=== PATIENT | male | born 1950 | race Caucasian/White ===

== ENCOUNTER 2022-02-17 12:11 | Outpatient (CLI) | payer MEDICARE, SELFPAY ==
--- OUTSIDE RECORDS SUMMARY | 2022-02-17 12:14 | XMS_ITS | Encounter Summary ---
:1950 Author Organization [facility] Address [address] [place] [address] Care Team Providers Name Role Phone Caryn Hayward P.A.-C. 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 Never 11/22/2018 How many drinks containing alcohol do you have on a typical Not asked day when you are drinking? How often do you have six or more drinks on one occasion? No t asked Sex Assigned at Date Recorded Male 12/24/2017 1:55 PM CDT documented as of this encounter Medications at Time of Discharge Medication Sig Dispensed Refills Start Date End Date aspirin [address] tablet Take 1 tablet (81 mg 0 total) by mouth daily. BD Veo Insulin Syringe USE 1 SYRINGE DAILY 100 each 3 03/14 UF 0.3 mL 31 gauge x 15/64 syringe blood sugar diagnostic 3 test daily. 300 strip 11 10/25/2018 (glucose blood) strips Whatever is covered by insurance. Dx:E11.9 blood-glucose meter [facility] Dispense glucose 1 each 0 10/25 meter, test strips, lancing device, and lancets covered by the patient insurance. Test 3 times per day. Dx: E11.40, E11.65 CONTOUR TEST STRIPS USE ONE STRIP TO 100 strip 4 11/13/2017 strips CHECK GLUCOSE ONCE DAILY BEFORE BREAKFAST dulaglutide (Trulicity) Inject 0.5 mL (1.5 7 mL 3 11/2020 1.5 mg/0.5 mL pen mg total) under the injector injection skin every 7 (seven) days. dulaglutide (Trulicity) Inject 0.5 mL (1.5 2 mL 11 07/2020 1.5 mg/0.5 mL pen mg total) under the injector injection skin every 7 (seven) days. ibuprofen (ADVIL,MOTRIN) Take 400 mg by mouth 0 0 11/25/2018 200 mg tablet as needed. insulin glargine (Lantus Inject 23 Units 20 mL 3 2020 U-100 Insulin) 100 under the skin every unit/mL injection evening. lancets Check sugar 3 times 300 each 3 10/25/2018 daily before meals lisinopriL Take 1 tablet (2.5 90 tablet 3 01/14/2021 (PRINIVIL,ZESTRIL) 2.5 mg total) by mouth mg tablet every morning. LORazepam (ATIVAN) 1 mg Take 1 tablet (1 mg 60 tablet 0 11/2020 tablet total) by mouth 2 (two) times a day as needed for anxiety. metoprolol tartrate Take 1 tablet (25 mg 180 tablet 3 2020 (LOPRESSOR) 25 mg tablet total) by mouth 2 (two) times a day. nitroglycerin Place 1 tablet (0.4 25 tablet 0 10/10/2020 (NITROSTAT) 0.4 mg SL mg total) under the tablet tongue every 5 (five) minutes as needed for chest pain. polyethylene glycol Take 17 g by mouth 0 08/29/19 17 (for_MIRALAX) 17 gram daily. powder packet PSYLLIUM HUSK (METAMUCIL Take 1.7 g by mouth 0 ORAL) at bedtime. tamsulosin (FLOMAX) 0.4 Take 1 capsule (0.4 90 capsule 3 07/2020 mg 24 hr mg total) by mouth capsuleIndications: daily. Overactive Bladder atorvastatin (LIPITOR) Take 1 tablet (20 mg 90 tablet 3 07/202002/13/2022 20 mg tablet total) by mouth at bedtime. oxybutynin (DITROPAN-XL) Take 1 tablet (10 mg 90 tablet 3 1 02/10/2022 10 mg 24 hr tablet total) by mouth at bedtime. venlafaxine XR TAKE 1 CAPSULE(150 90 capsule 3 12/26/2020 (EFFEXOR-XR) 150 mg 24 MG) BY MOUTH DAILY hr capsuleIndications: Anxiety documented as of this encounter Plan of Treatment Upcoming Encounters Date Type Specialty Care Team Description 04/23/2022 Office Visit Cardiovascular Disease Blas Peck M.D. [address] [place] [phone] (Wo rk) documented as of this encounter Procedures Procedure Name Priority Date/Time Associated Diagnosis Comme nts HEMOGLOBIN A1C, B Routine 07/15/2021 1:01 PM Diabetes Mellitus Type Results for this CDT 2 With Diabetic procedure ar e in Neuropathy the results Hyperglycemic (HCC) section. CALCIUM, TOT, S/P Routine 07/15/2021 1:01 PM Hypercalcemia Res ults for this CDT procedure are i n the results section. documented in this encounter Results (ABNORMAL) Hemoglobin A1c (07/15/2021 1:01 PM CDT) P athologist Signature Hemoglobin A1c, 7.4 (H) 4.2 - 5.6 07/15/2021 OWAT B % 4:05 PM CDT Comment: Hemoglobin A1c values greater than or eq ual to 6.5 percent are diagnostic for diabetes mellitus. ?? Diagnosis should be confirmed by repeat testing. ??In diabet ic patients, HbA1c goals should be discussed with healthcar e provider. Specimen Anatomical Collection Method Collection Time Receive d Time (Source) Location / / Volume Laterality Blood (Blood, 07/15/2021 1:01 PM 07/16/19 22 3:37 Venous) CDT PM CDT Caryn Hayward P.A.-C. LAB BLOOD ADD-ON Performing Organization Address City/State/ZIP Code Phon e Number [facility] [address] [place] [address] [facility] [address] System in [place] [address] [place] [address] Calcium, Total (07/15/2021 1:01 PM CDT) P athologist Signature Calcium, Total, 9.3 8.8 - 10.2 07/15/2021 OWAT P mg/dL 3:59 PM CDT Specimen Anatomical Collection Method Collection Time Receive d Time (Source) Location / / Volume Laterality Blood (Blood, 07/15/2021 1:01 PM 07/16/19 3:37 Venous) CDT PM CDT Caryn Hayward P.A.-C. 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 PCP - General 07/25/20 09/19/[address] [place], [place] [address] [address] documented as of this encounter
--- OUTSIDE RECORDS SUMMARY | 2022-02-17 12:14 | XMS_ITS | Encounter Summary ---
:1950 Author Organization [facility] Address [address] [place] [address] Care Team Providers Name Role Phone Caryn Hayward P.A.-C. Primary Care Provider Encounter Details Date Type Department Care Team Description 07/16/2021 Clinical Communication Department of [facility] Suzanne Becerril Medicine in [address] [address] [place], [place] [phone] (Work) [phone] Social History Tobacco Use Types Packs/Day Years Used Date Smoking Tobacco: Former Pipe Smokeless Tobacco: Never Comments: pipe Alcohol [...] PM CDT documented as of this encounter Miscellaneous Notes Telephone Encounter - Saumya Coburn L.PMichelleN. - 07/17/2021 9:02 AM CDT SUBJECTIVE CHIEF COMPLAINT / REASON FOR CALL No chief complaint on file. PLAN The following information was provided: X-ray is negative for pneumonia, no antibiotics as this time. Patient can use OTC mucinex or robitussin for his cough Information/Education: patient/caller able to teach back The following references were used: provider Caryn Hayward PA-C Telephone Encounter - Laila Pineda - 07/17/2021 8:49 AM CDT Patients returning a call to a nurse. Unable to reach nurse. Please call patient. Telephone Encounter - Saumya Coburn L.P.N. - 07/16/2021 4:58 PM CDT Left message for patient to return call to clinic. Does the patient need to speak to nursing? yes Action needed: Please let patient know that his chest x-ray is negative for any pneumonia. We will not be prescribing antibiotics at this time. ??I would recommend symptomatic treatment such as Mucinex or Robitussin for cough. ?? documented in this encounter Plan of Treatment Upcoming Encounters Date Type Specialty Care Team Description 04/23/2022 Office Visit Cardiovascular Disease Blas Peck M.D. [address] [place] [phone] (Wo rk) documented as of this encounter Visit Diagnoses Not on filedocumented in this encounter Additional Health Concerns Assessment Noted Time PHQ-9 Depression Total Score: 4 07/16/2021 10:55 AM CD T documented as of this encounter Care Teams Flare Worker Relationship Specialty Start Date End Date Caryn Hayward P.A.-C. PCP - General 07/25/20 09/19/21 [address], [place] [address] documented as of this encounter
--- OUTSIDE RECORDS SUMMARY | 2022-02-17 12:14 | XMS_ITS | Encounter Summary ---
:1950 Author Organization [facility] Address [address] [place] [address] Care Team Providers Name Role Phone Caryn Hayward P.A.-C. Primary Care Provider Reason for Visit Reason Comments Med Refill Encounter Details Date Type Department Care Team Description 02/18/2021 Refill Department of Internal Emelyn Hawyard P.AIshan Med Refill Medicine in [facility] [address] [place] [address] [address] [place] [address] [facility] [phone] Social History Tobacco Use Types Packs/Day Years [...] PM CDT documented as of this encounter Plan of Treatment Upcoming Encounters Date Type Specialty Care Team Description 04/23/2022 Office Visit Cardiovascular Disease Blas Peck M.D. [address] [place] [phone] (Wo rk) documented as of this encounter Visit Diagnoses Not on filedocumented in this encounter Additional Health Concerns Assessment Noted Time PHQ-9 Depression Total Score: 1 10/31/2019 2:00 PM CDT documented as of this encounter Care Teams Organizational Development Specialist Relationship Specialty Start Date End Date Caryn Hayward P.A.-C. PCP - General 07/25/20 09/19/[address] [phone] documented as of this encounter
--- OUTSIDE RECORDS SUMMARY | 2022-02-17 12:14 | XMS_ITS | Encounter Summary ---
:1950 Author Organization [facility] Address [address] [place] [address] Care Team Providers Name Role Phone Mainor Caryn Anthony P.A.-C. Primary Care Provider Encounter Details Date Type Department Care Team Description 02/06/2021 Orders Only [facility] Sa yossi Salmeron M.D. [address] [place], [place] [phone] (Wo huey) Social History Tobacco Use Types Packs/Day Years [...] Office Visit Cardiovascular Disease Blas Peck M.D. [address] [place] [phone] (Wo rk) documented as of this encounter Visit Diagnoses Not on filedocumented in this encounter Additional Health Concerns Assessment Noted Time PHQ-9 Depression Total Score: 1 10/31/2019 2:00 PM CDT documented as of this encounter Care Teams Goldsmith Apprentice Relationship Specialty Start Date End Date Caryn Hayward P.A.-C. PCP - General 07/25/20 09/19/[address] [phone] documented as of this encounter
--- OUTSIDE RECORDS SUMMARY | 2022-02-17 12:14 | XMS_ITS | Encounter Summary ---
:1950 Author Organization [facility] Address [address] [place] [address] Care Team Providers Name Role Phone Caryn Hayward P.A.-C. Primary Care Provider Reason for Referral Outpatient (Routine) - Closed Specialty Diagnoses / Procedures Referred By Contact Refer red To Contact Diagnoses Cough Unspecified Type Jerrica Staley P.A.-C. [facility] Procedures DX Chest AP or PA and Lateral 2 Views [address] [place] [address] Referral ID Status Reason Start Date Expiration Date Visits Requ ested Visits Authorized [id number] Closed 07/16/2021 07/16/2022 1 1 Reason for Visit Reason Comments Bronchitis Cough/Chest congestion for a bout a month Appointment Request (Routine) - Closed Specialty Diagnoses / Procedures Referred By Contact Refer red To Contact Referral ID Status Reason Start Date Expiration Date Visits Requ ested Visits Authorized [id number] Closed 07/15/2021 07/15/2022 1 Encounter Details Date Type Department Care Team Description 07/16/2021 Comprehensive Visit Department of Rene Staley U nspecified Type (Primary Dx); Community Internal Hiren Becerril I mpacted Bilateral; Medicine in P.A.-C. 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 Hyperglycemic (HCC) [place], [address] [place], [place] [address] [facility] [address] [place], [place] [phone] [phone] (Work) [phone] Social History Tobacco Use Types Packs/Day Years [...] PM CDT documented as of this encounter Last Filed Vital Signs Vital Sign Reading Time Taken Comments Blood Pressure 109/69 07/16/2021 10:59 AM CDT Pulse 78 07/16/2021 10:59 AM CDT Temperature 36.4 ??C (97.5 ??F) 07/16/2021 10:59 AM CDT Respiratory Rate 12 07/16/2021 10:59 AM CDT Oxygen Saturation 97% 07/16/2021 10:59 AM CDT Inhaled Oxygen Concentration - - Weight 89.9 kg (198 lb 4.9 oz) 07/16/2021 10:59 AM CDT Height - - Body Mass Index 32.01 10/10/2020 10:54 AM CDT documented in this encounter Patient Instructions Patient InstructionsJerrica Staley P.A.-C. - 07/16/2021 11:00 AM CDT 1. Chest X-ray today to look at your lungs. We will prescribe you an antibiotic if you have pneumonia. 2. Recommend Mucinex or Robitussin for cough relief. documented in this encounter Progress Notes Jerrica Staley P.A.-C. - 07/16/2021 11:00 AM CDT SUBJECTIVE CHIEF COMPLAINT/REASON FOR VISIT Chief Complaint Patient presents with ??? Bronchitis Cough/Chest congestion for about a month HISTORY OF PRESENT ILLNESS Elvis Montoya Juancho is a pleasant 71 y.o. male with a past medical history of diabetes mellitus type 2, irritable bowel syndrome, coronary artery disease, obstructive sleep apnea, and hyperlipidemia who presents to the clinic today to discuss cough. He reports his cough started about 1 month ago. This cough is productive. His cough does not keep him awake at night. He has not tried any medications to help with his cough besides throat lozenges. He reports subjective fever, body aches, weakness, nasal congestion, and chills. He denies shortness of breath, significant weight changes, chest pain, symptoms of GERD, sore throat, or swelling in the legs. He tells me today that he has never smoked although former smoker is documented in his chart. He has not recently been tested for COVID or influenza.He tells me that he should of been seen in clinic 2 weeks ago for these symptoms. He would also likea refill of his lorazepam. He is in the process of looking for a new provider. He would like to establish care with a medical doctor who has been practicing medicine for many years. The following portions of the patient's history were reviewed and updated as appropriate: allergies,current medications, family history, medical history, social history, surgical history and problem list. Pertinent positive ROS are listed above in HPI. Patient Active Problem List Diagnosis ??? 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 Coronary Artery Disease Without Angina Pectoris ??? Anxiety ??? Apnea Sleep Obstructive ??? Body Mass Index 34.0 To 34.9 Adult ??? Callus Cocoa Foot ??? Bowel Habit Change ??? Coronary Arterial Bypass Graft Status Post Personal History ??? Diverticulosis Colon ??? Hyperlipidemia ??? Irritable Bowel Syndrome With Constipation ??? Primary Osteoarthritis Hip Bilateral ??? Primary Osteoarthritis Knee Bilateral ??? Overactive Bladder ??? Panic Disorder Episodic Paroxysmal Anxiety ??? Rhinitis Allergic ??? Frequency Urinary ??? 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 High Risk Medication ??? Lower Abdominal Pain Unspecified ??? Benign Prostatic Hyperplasia With Lower Urinary Tract Symptom ??? Pain Chest ??? Dyspnea NOS ??? Paraphimosis ??? Hernia Inguinal Bilateral ??? Nicotine Dependence Other Tobacco Product With Other Nicotine Induced Disorder ??? Obesity Body Mass Index 30-39.9 Adult ??? Polyp Colon Adenomatous Personal History ??? Primary Osteoarthritis Knee Right ??? Pain Generalized Abdominal ALLERGIES/CONTRAINDICATIONS Allergies Allergen Reactions ??? Sulfamethoxazole-Trimethoprim Swelling ??? Sertraline Other (see comments) CURRENT MEDICATIONS Current Outpatient Medications: ??? aspirin [address] tablet, Take 1 tablet (81 mg total) by mouth daily., Disp: , Rfl: ??? atorvastatin (LIPITOR) 20 mg tablet, Take 1 tablet (20 mg total) by mouth at bedtime., Disp: 90 tablet, Rfl: 3 ??? BD Veo Insulin Syringe UF 0.3 mL 31 gauge x 15/64 syringe, USE 1 SYRINGE DAILY, Disp: 100 each,Rfl: 3 ??? blood sugar diagnostic (glucose blood) strips, 3 test daily. Whatever is covered by insurance. Dx:E11.9, Disp: 300 strip, Rfl: 11 ??? blood-glucose meter [facility] Dispense glucose meter, test strips, lancing device, and lancets covered by the patient insurance. Test 3 times per day. Dx: E11.40, E11.65, Disp: 1 each, Rfl: 0 ??? CONTOUR TEST STRIPS strips, USE ONE STRIP TO CHECK GLUCOSE ONCE DAILY BEFORE BREAKFAST, Disp: 100 strip, Rfl: 4 ??? dulaglutide (Trulicity) 1.5 mg/0.5 mL pen injector injection, Inject 0.5 mL (1.5 mg total) underthe skin every 7 (seven) days., Disp: 7 mL, Rfl: 3 ??? dulaglutide (Trulicity) 1.5 mg/0.5 mL pen injector injection, Inject 0.5 mL (1.5 mg total) underthe skin every 7 (seven) days., Disp: 2 mL, Rfl: 11 ??? ibuprofen (ADVIL,MOTRIN) 200 mg tablet, Take 400 mg by mouth as needed. , Disp: , Rfl: ??? insulin glargine (Lantus U-100 Insulin) 100 unit/mL injection, Inject 23 Units under the skin every evening., Disp: 20 mL, Rfl: 3 ??? lancets, Check sugar 3 times daily before meals, Disp: 300 each, Rfl: 3 ??? lisinopriL (PRINIVIL,ZESTRIL) 2.5 mg tablet, Take 1 tablet (2.5 mg total) by mouth every morning., Disp: 90 tablet, Rfl: 3 ??? metoprolol tartrate (LOPRESSOR) 25 mg tablet, Take 1 tablet (25 mg total) by mouth 2 (two) timesa day., Disp: 180 tablet, Rfl: 3 ??? nitroglycerin (NITROSTAT) 0.4 mg SL tablet, Place 1 tablet (0.4 mg total) under the tongue every5 (five) minutes as needed for chest pain., Disp: 25 tablet, Rfl: 0 ??? oxybutynin (DITROPAN-XL) 10 mg 24 hr tablet, Take 1 tablet (10 mg total) by mouth at bedtime., Disp: 90 tablet, Rfl: 3 ??? polyethylene glycol (for_MIRALAX) 17 gram powder packet, Take 17 g by mouth daily., Disp: , Rfl: ??? PSYLLIUM HUSK (METAMUCIL ORAL), Take 1.7 g by mouth at bedtime. , Disp: , Rfl: ??? tamsulosin (FLOMAX) 0.4 mg 24 hr capsule, Take 1 capsule (0.4 mg total) by mouth daily., Disp: 90 capsule, Rfl: 3 ??? venlafaxine XR (EFFEXOR-XR) 150 mg 24 hr capsule, TAKE 1 CAPSULE(150 MG) BY MOUTH DAILY, Disp: 90 capsule, Rfl: 3 ??? LORazepam (ATIVAN) 1 mg tablet, Take 1 tablet (1 mg total) by mouth 2 (two) times a day as needed for anxiety. (Patient not taking: Reported on 01/14/2021 ), Disp: 60 tablet, Rfl: 0 OBJECTIVE VITAL SIGNS Vitals: 07/16/21 1059 BP: 109/69 Pulse: 78 Resp: 12 Temp: 36.4 ??C SpO2: 97% PHYSICAL EXAMINATION General: Well-nourished, well-developed 71 y.o. in no apparent distress. Awake, alert, age appropriate. HEENT: Head is normocephalic, atraumatic. Pupils round and reactive bilaterally. EOM's intact. Conjunctivae and sclerae are clear. TM's impacted with cerumen bilaterally. Oropharynx pink and moist without exudate or erythema. Neck: Neck is supple without lymphadenopathy. Thyroid is normal size and shape. Trachea is midline. Cardiovascular: Regular rate and rhythm without murmurs. Lungs: Wheezing auscultated throughout the lung alcocer bilaterally. Abdomen: Bowel sounds present in all quadrants. Soft, non-tender with no palpable organomegaly. Skin: Warm, pink, and dry. No rashes or lesions. Musculoskeletal: Normal range of motion in all extremities. 5/5 strength in bilateral upper and lower extremities. Neurologic: Alert and oriented x3. ASSESSMENT / PLAN IMPRESSION/REPORT/PLAN: #1 Cough Unspecified Type Based on patient's symptoms of cough, nasal congestion, myalgias, chills, and subjective fever I suspect an infectious etiology of his symptoms. I would like to order a chest x-ray for further workup today in clinic. I gave a strong recommendation for patient to undergo COVID and influenza testing today but patient declined these tests. I will await CXR results and I will have nursing call him when these results are available. We discussed the use of Mucinex or Robitussin to help his cough symptoms in the meantime. If his cough were to become chronic, I would consider ordering pulmonary function testing. - DX Chest AP or PA and Lateral 2 Views; Future; Expected date: 07/16/2021 #2 Cerumen Impacted Bilateral I offered ear lavage bilaterally today. Patient declined. #3 Diabetes Mellitus Type 2 With Diabetic Neuropathy Hyperglycemic (HCC) Most recent A1c is 7.4 as of 07/15/2021. Current medications include Trulicity and Lantus. #4 Anxiety Patient reports that using lorazepam is helpful for his anxiety. He is looking for a refill today. He reports getting frustrated by providers who won't fill his prescription. No re-fill was provided today. Patient is looking to establish care with a provider who is not a PA or ENVIRONMENTAL RESOURCE SPECIALIST and will discuss thisfurther. If symptoms worsen or do not improve, patient is instructed to seek further medical attention. All questions have been answered. Patient demonstrated understanding and verbalized agreement with the plan. Jerrica Staley P.A.-C. documented in this encounter Plan of Treatment Upcoming Encounters Date Type Specialty Care Team Description 04/23/2022 Office Visit Cardiovascular Disease Blas Peck M.D. [address] [place] [phone] (Wo rk) documented as of this encounter Results DX Chest AP or PA and Lateral 2 Views (07/16/2021 11:48 AM CDT) Anatomical Region Laterality Modality Chest, Thoracic RST LOS, Thoracic ARZ LOS, Thoracic N/A Digital Radiography FLA LOS Specimen (Source) Anatomical Collection Method Collection Time Re ceived Time Location / / Volume Laterality 07/16/2021 2:35 PM CDT Impressions 07/16/2021 2:42 PM CDT No cardiomegaly, pleural effusion or lung consolidation. Median sternotomy and changes of CABG. Thoracic spondylosis. Narrative 07/16/2021 2:42 PM CDT EXAM: DX CHEST AP OR PA AND LATERAL 2 VIEWS Procedure Note [place] M.D. - 07/16/2021Formatt ing of this note might be different from the original. EXAM: DX CHEST AP OR PA AND LATERAL 2 EWS IMPRESSION: No cardiomegaly, pleural effusion or hina g consolidation. Median sternotomy and changes of CABG. Thoracic spondylosis. Jerrica Staley P.A.-C. 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 PCP - General 07/25/20 09/19/21 [address], [place] [address] documented as of this encounter
--- OUTSIDE RECORDS SUMMARY | 2022-02-17 12:14 | XMS_ITS | Encounter Summary ---
:1950 Author Organization [facility] Address [address] [place] [address] Care Team Providers Name Role Phone Caryn Hayward P.A.-C. Primary Care Provider Encounter Details Date Type Department Care Team Description 06/04/2021 Clinical Communication Department of Jose Rangel General Surgery in [place] Denise Serna [place], [place] [address] [facility] [address] [place] [phone] [phone] Social History Tobacco Use Types Packs/Day Years [...] this encounter Miscellaneous Notes Telephone Encounter - Ursula Fink, C.N.A. - 06/04/2021 4:40 PM MATRIX INSPECTOR Letter sent out asking patient to call and schedule a colonoscopy. IX INSPECTOR documented in this encounter Plan of Treatment Upcoming Encounters Date Type Specialty Care Team Description 04/23/2022 Office Visit Cardiovascular Disease Blas Peck M.D. [address] [place] [phone] (Wo rk) documented as of this encounter Visit Diagnoses Not on filedocumented in this encounter Additional Health Concerns Assessment Noted Time PHQ-9 Depression Total Score: 1 10/31/2019 2:00 PM CDT documented as of this encounter Care Teams Clearance Coordinator Relationship Specialty Start Date End Date Caryn Hayward P.A.-C. PCP - General 07/25/20 09/19/21 [address], [place] [address] documented as of this encounter
--- OUTSIDE RECORDS SUMMARY | 2022-02-17 12:14 | XMS_ITS | Encounter Summary ---
:1950 Author Organization [facility] Address [address] [place] [address] Care Team Providers Name Role Phone Caryn Hayward P.A.-C. Primary Care Provider Reason for Visit Reason Comments Med Refill Encounter Details Date Type Department Care Team Description 01/16/2021 Refill Department of Family Medicine, Caryn Roac P.A.-C. Med Refill [facility], in [address] [place] [address] [place] [address] [place] [address] [phone] Social History Tobacco Use Types Packs/Day Years [...] this encounter Miscellaneous Notes Telephone Encounter - Caryn Hayward P.A.-C. - 01/16/2021 5:34 PM CDT Prescription was was sent on Thursday. documented in this encounter Plan of Treatment Upcoming Encounters Date Type Specialty Care Team Description 04/23/2022 Office Visit Cardiovascular Disease Blas Peck M.D. [address] [place] [phone] (Wo rk) documented as of this encounter Visit Diagnoses Not on filedocumented in this encounter Additional Health Concerns Assessment Noted Time PHQ-9 Depression Total Score: 1 10/31/2019 2:00 PM CDT documented as of this encounter Care Teams Traffic Signal Technician Relationship Specialty Start Date End Date Caryn Hayward P.A.-C. PCP - General 07/25/20 09/19/[address] [phone] documented as of this encounter
--- OUTSIDE RECORDS SUMMARY | 2022-02-17 12:14 | XMS_ITS | Encounter Summary ---
:1950 Author Organization [facility] Address [address] [place] [address] Care Team Providers Name Role Phone Caryn Hayward P.AMichelle-CMichelle Primary Care Provider Encounter Details Date Type Department Care Team Description 08/30/2021 Orders Only [facility] Emelyn Hayward P.AMichelle-CMichelle [address] [place], [place] [phone] (Wo rk) Social History Tobacco Use Types Packs/Day Years [...] Office Visit Cardiovascular Disease Blas Peck M.D. [address] [place] [phone] (Wo rk) documented as of this encounter Visit Diagnoses Not on filedocumented in this encounter Additional Health Concerns Assessment Noted Time PHQ-9 Depression Total Score: 4 07/16/2021 10:55 AM CD T documented as of this encounter Care Teams Tube [place] Relationship Specialty Start Date End Date Caryn Hayward P.A.-C. PCP - General 07/25/20 09/19/[address] [address] documented as of this encounter
--- OUTSIDE RECORDS SUMMARY | 2022-02-17 12:14 | XMS_ITS | Encounter Summary ---
:1950 Author Organization [facility] Address [address] [place] [address] Care Team Providers Name Role Phone Elsewhere, Pcp Primary Care Provider Unavailable Reason for Visit Reason Comments Prostatitis Outpatient (Routine) - Closed Specialty Diagnoses / Procedures Referred By Contact Refer red To Contact Urology Sabrina Valadez APRN, C.N.P. [facility] [address] [place] [phone] Referral ID Status Reason Start Date Expiration Date Visits Requ ested Visits Authorized [id number] Closed 07/09/2020 07/09/2021 1 1 Encounter Details Date Type Department Care Team Description 10/28/2021 Office Visit Department of Urology Sabrina Valadez, Prostatitis Chronic in BRIAN Owen, C.N.P. (Primary Dx) [address] [phone] [phone] Social History Tobacco Use Types Packs/Day Years Used Date Smoking Tobacco: Former Pipe Smokeless Tobacco: Never Tobacco Cessation: Counseling Given: Not Answered Comments: pipe Alcohol Use Standard Drinks/Week Comments [...] Sign Reading Time Taken Comments Blood Pressure 107/66 10/28/2021 10:51 AM CDT Pulse 90 10/28/2021 10:51 AM CDT Temperature 36.7 ??C (98.1 ??F) 10/28/2021 10:51 AM CDT Respiratory Rate - - Oxygen Saturation - - Inhaled Oxygen Concentration - - Weight - - Height - - Body Mass Index - - documented in this encounter Progress Notes Sabrina Valadez APRN, C.N.P. - 10/28/2021 11:00 AM CDT SUBJECTIVE CHIEF COMPLAINT/REASON FOR VISIT Chief Complaint Patient presents with Prostatitis HISTORY OF PRESENT ILLNESS Elvis is a 71-year-old male here today for follow-up for chronic prostatitis. He was last seen in January and felt that his prostatitis has returned. He was given prescription for antibiotics and was asked follow-up in 6-8 weeks. He states that his urinary symptoms did not change or improve with antibiotics that were given, he did not follow-up sooner for unknown reasons. He reports that he has quitea bit of discomfort in the penis and perineum in the morning. He reports that his urine has a lot ofwhite stuff in it and is very cloudy. He continues to take Flomax and oxybutynin daily. The following portions of the patient's history were reviewed and updated as appropriate: allergies,current medications, family history, medical history, social history, surgical history, and problem list. REVIEW OF SYSTEMS Genitourinary: - White stuff in the urine, cloudy urine. Sore and raw in penis in the morning. Blood sugars 120's to 170's in morning. Pain in perineum when laying down. OBJECTIVE Vitals: 10/28/21 1051 Temp: 36.7 ??C PHYSICAL EXAM Vitals and nursing note reviewed. General: Well developed, well nourished, well groomed male in no acute distress. Neurological: Alert, cooperative, oriented x3. Appropriate mood and affect. Head: Normal appearance, no abnormalities, normocephalic. Neck: Symmetrical and supple, trachea is midline. Cardiac: regular rate, regular rhythm. Respiratory: Respirations are unlabored with normal respiratory rate and normal respiratory movements. Abdomen: Soft, non-tender, non-distended Vascular: There are +2 pulses noted in both upper and lower extremities. : Skin color and turgor appropriate for region. No ulcers, erythema, rashes, or pigmented lesions noted. PROSTATE: Perianal area intact without lesions or visible hemorrhoids. No fissures or fistulas. Goodsphincter tone, no masses. Prostate is symmetrical, smooth, boggy, non-enlarged, tender and without nodules. Seminal vesicles are non-palpable. Approximate size is 35 grams. Extremities: Warm, without edema or ulcerations. Musculoskeletal: [place] is symmetrical and balanced. ASSESSMENT / PLAN 1. Prostatitis Chronic Prostate massage is performed and urine sample is collected for VB 3. We will order antibiotics as indicated. He understands that it will take a few days to get results from this testing. All questionsanswered today. - Gram Stain - Bacterial Culture, Aerobic + Susc - Fungal Smear - Fungal Culture, Routine Signed by: Sabrina Valadez APRN, C.N.P. 10/28/2021 10:52 AM CDT documented in this encounter Plan of Treatment Upcoming Encounters Date Type Specialty Care Team Description 04/23/2022 Office Visit Cardiovascular Disease Blas Peck M.D. [address] [place], [place] [phone] (Wo rk) documented as of this encounter Procedures Procedure Name Priority Date/Time Associated Diagnosis Comme nts BACTERIAL CULTURE, Routine 10/28/2021 11:27 AM Prostatitis Chr onic Results for this AEROBIC + SUSC CDT procedure are in the results section. FUNGAL SMEAR Routine 10/28/2021 11:27 AM Prostatitis Chronic R esults for this CDT procedure are i n the results section. GRAM STAIN Routine 10/28/2021 11:27 AM Prostatitis Chronic R esults for this CDT procedure are i n the results section. FUNGAL CULTURE, Routine 10/28/2021 11:27 AM Prostatitis Chroni c Results for this ROUTINE CDT procedure are i n the results section. documented in this encounter Results Fungal Culture, Routine (10/28/2021 11:27 AM CDT) [facility] Method Time Signature Fungal No growth 11/22/2021 DTL Culture, after 24 1:01 AM CDT Routine days of incubation. Specimen Anatomical Collection Method Collection Time Receive d Time (Source) Location / / Volume Laterality Fluid (Prostate 10/28/2021 11:27 10/30/19 22 7:10 Secretions, AM CDT AM CDT VBIII) Comment: Specimen Source Site: Fluid Sabrina Valadez APRN, Loren.N.P. LAB MICROBIOLOGY - GENE RAL ORDERABLES Performing Organization Address City/[facility]/ZIP Code Phon e Number [facility] - [address] [place], [place] [address] [facility] [place] [address] [facility] [address] [facility] Fungal Smear (10/28/2021 11:27 AM CDT) P athologist Signature Fungal Smear Negative. 10/28/2021 MKTO 9:20 PM CDT Specimen Anatomical Collection Method Collection Time Receive d Time (Source) Location / / Volume Laterality Fluid (Prostate 10/28/2021 11:27 10/29/19 22 2:19 Secretions, AM CDT PM CDT VBIII) Comment: Specimen Source Site: Fluid Loren Smith APRN.N.P. LAB MICROBIOLOGY - GENE RAL ORDERABLES Performing Organization Address City/[facility]/ZIP [facility] Phon e Number [facility]- [address] [place] [address] [place] [address] System in [place] [address] [facility] Bacterial Culture, Aerobic + Susc (10/28/2021 11:27 AM CDT) [facility] Method Time Signature Bacterial Usual 10/30/2021 MKTO Culture, microbiota 6:50 AM CDT Aerobic + Susc Specimen Anatomical Collection Method Collection Time Receive d Time (Source) Location / / Volume Laterality Fluid (Prostate 10/28/2021 11:27 10/29/19 22 2:19 Secretions, AM CDT PM CDT VBIII) Comment: Specimen Source Site: Fluid Loren Smith APRN.N.P. LAB MICROBIOLOGY - GENE RAL ORDERABLES Performing Organization Address City/[facility]/ZIP Code Phon e Number [facility]- [address] [place] [phone] [place] [address] System [address] Gram Stain (10/28/2021 11:27 AM CDT) [facility] gist Method Time Signature Gram Stain No organisms seen. 10/28/2021 MKTO White blood cells, Rare. 4:40 PM CDT Specimen Anatomical Collection Method Collection Time Receive d Time (Source) Location / / Volume Laterality Fluid (Prostate 10/28/2021 11:27 10/29/19 2:19 Secretions, AM CDT PM CDT VBIII) Comment: Specimen Source Site: Fluid Cooper Smith APRNN.P. LAB MICROBIOLOGY - GENE RAL ORDERABLES Performing Organization Address City/[facility] Phon e Number [facility]- [address] [place] [address] [place] [address] System [address] documented in this encounter Visit Diagnoses Diagnosis Prostatitis Chronic - Primary documented in this encounter Additional Health Concerns Assessment Noted Time PHQ-9 Depression Total Score: 4 07/16/2021 10:55 AM CD T documented as of this encounter Care Teams Assistant Program Director Relationship Specialty Start Date End Date Elsewhere, Pcp PCP - General Internal Medicine 09/20/21 documented as of this encounter
--- OUTSIDE RECORDS SUMMARY | 2022-02-17 12:14 | XMS_ITS | Encounter Summary ---
:1950 Author Organization [facility] Address [address] [place] [address] Care Team Providers Name Role Phone Caryn Hayward P.A.-C. Primary Care Provider Reason for Visit Reason Comments Med Refill Encounter Details Date Type Department Care Team Description 01/14/2021 Refill Division of Endocrinology in Raj Navarro, Med Refill [place], [place] Denise, Ph.D. [address] [facility] [address] [place] [phone] [place], [place] [phone] (Wo rk) Social History Tobacco Use Types [...] this encounter Miscellaneous Notes Telephone Encounter - Mary Champion R.N., [facility] - 01/14/2021 10:01 AM CDT Prescription renewal request did not meet nurse protocol because: patient has not been seen within the past 12 months Protocol utilized: Prescription Renewal Request for Medications: Division of Endocrinology, Diabetes, Metabolism and Nutrition. documented in this encounter Plan of Treatment Upcoming Encounters Date Type Specialty Care Team Description 04/23/2022 Office Visit Cardiovascular Disease Blas Peck M.D. [address] [place] [phone] (Wo rk) documented as of this encounter Visit Diagnoses Not on filedocumented in this encounter Additional Health Concerns Assessment Noted Time PHQ-9 Depression Total Score: 1 10/31/2019 2:00 PM CDT documented as of this encounter Care Teams Feather Edger Relationship Specialty Start Date End Date Caryn Hayward, PVignesh. PCP - General 07/25/20 09/19/21 [address], [place] [address] documented as of this encounter
--- OUTSIDE RECORDS SUMMARY | 2022-02-17 12:14 | XMS_ITS | Encounter Summary ---
:1950 Author Organization [facility] Address [address] [place] [address] Care Team Providers Name Role Phone Elsewhere, Pcp Primary Care Provider Unavailable Reason for Visit Reason Comments Med Refill Encounter Details Date Type Department Care Team Description 02/13/2022 Refill Department of Family Medicine, Caryn Roca P.A.-C. Med Refill [facility], in [address] [place] [address] [place] [address] [place] [address] [phone] Social History Tobacco Use Types Packs/Day Years [...] Telephone Encounter - Caryn Hayward P.A.-C. - 02/13/2022 11:46 AM CDT 90-day supply provided. Please schedule annual exam for further refills. documented in this encounter Plan of Treatment Upcoming Encounters Date Type Specialty Care Team Description 04/23/2022 Office Visit Cardiovascular Disease Blas Peck M.D. [address] [place] [phone] (Wo rk) documented as of this encounter Visit Diagnoses Not on filedocumented in this encounter Additional Health Concerns Assessment Noted Time PHQ-9 Depression Total Score: 4 07/16/2021 10:55 AM CD T documented as of this encounter Care Teams French Weaver Relationship Specialty Start Date End Date Elsewhere, Pcp PCP - General Internal Medicine 09/20/21 documented as of this encounter
--- OUTSIDE RECORDS SUMMARY | 2022-02-17 12:14 | XMS_ITS | Encounter Summary ---
:1950 Author Organization [facility] Address [address] [place] [address] Care Team Providers Name Role Phone Elsewhere, Pcp Primary Care Provider Unavailable Reason for Visit Reason Comments Med Refill Encounter Details Date Type Department Care Team Description 09/16/2021 Refill Department of Family Medicine, Salma Villeda APRN, Med Refill [facility] [address] [address] [facility] [phone] Social History Tobacco Use Types Packs/Day Years [...] this encounter Miscellaneous Notes Telephone Encounter - Rose Colon - 09/20/2021 9:14 AM CDT Spoke with patient, he has moved his care to [place] Telephone Encounter - Caryn Hayward P.A.-C. - 09/19/2021 5:20 PM CDT 90-day supply provided. Please schedule follow-up for further refills. documented in this encounter Plan of Treatment Upcoming Encounters Date Type Specialty Care Team Description 04/23/2022 Office Visit Cardiovascular Disease Blas Peck M.D. [address] [place] [phone] (Wo rk) documented as of this encounter Visit Diagnoses Diagnosis Anxiety documented in this encounter Additional Health Concerns Assessment Noted Time PHQ-9 Depression Total Score: 4 07/16/2021 10:55 AM CD T documented as of this encounter Care Teams Commercial Teller Relationship Specialty Start Date End Date Elsewhere, Pcp PCP - General Internal Medicine 09/20/21 documented as of this encounter
--- OUTSIDE RECORDS SUMMARY | 2022-02-17 12:14 | XMS_ITS | Encounter Summary ---
:1950 Author Organization [facility] Address [address] [place] [address] Care Team Providers Name Role Phone Caryn Hayward P.A.-C. Primary Care Provider Reason for Referral Physical Therapy (Routine) - Closed Specialty Diagnoses / Procedures Referred By Contact Refer red To Contact Physical Therapy Diagnoses Prostatitis Chronic Constipation [facility] [address] [place], [place] [phone] Phone: [phone] Referral ID Status Reason Start Date Expiration Date Visits V isits Requested Authorized [id number] Closed Service not 01/14/2021 01/14/2022 99 99 available in [facility] Reason for Visit Reason Comments Follow-up Encounter Details Date Type Department Care Team Description 01/14/2021 Office Visit Department of Urology Sabrina Valadez ostatitis Chronic (Primary Dx); in Mirella Owen APRN, C.N.P. Overactive Bladder; [place] [address] Constipation [address] [place] [phone] Social History Tobacco Use Types Packs/Day Years [...] Sign Reading Time Taken Comments Blood Pressure - - Pulse 81 01/14/2021 9:21 AM CDT Temperature 36.3 ??C (97.3 ??F) 01/14/2021 9:21 AM CDT Respiratory Rate - - Oxygen Saturation 98% 01/14/2021 9:21 AM CDT RA Inhaled Oxygen Concentration - - Weight - - Height - - Body Mass Index - - documented in this encounter Progress Notes Sabrina Valadez, BRIAN, C.N.P. - 01/14/2021 9:30 AM CDT SUBJECTIVE CHIEF COMPLAINT/REASON FOR VISIT Chief Complaint Patient presents with ??? Follow-up HISTORY OF PRESENT ILLNESS Elvis is a pleasant 70 year old male here today for follow-up. He has history of chronic recurrent prostatitis and mild BPH. He reports abdominal pain that feels similar to a pulled muscle, bladder tenderness, pain with bowelmovements, and constipation. The following portions of the patient's history were reviewed and updated as appropriate: allergies,current medications, family history, medical history, social history, surgical history and problem list. REVIEW OF SYSTEMS Gastrointestinal: Positive for constipation. Abdominal pain when he wakes in the morning. Rectum is tight and sore after bowel movements. Bowel movements on most days, sometimes are long and flat. Feels like muscle is torn across the abdomen. Genitourinary: Feels prostatitis has returned. Stream is slower. Pain and tenderness back and forth to rectum after voiding. OBJECTIVE Vitals: 01/14/219[address] Pulse: 81 Temp: 36.3 ??C SpO2: 98% TempSrc: Temporal PHYSICAL EXAM Vitals and nursing note reviewed. General: Well developed, well nourished, well groomed male in no acute distress. Neurological: Alert, cooperative, oriented x3. Appropriate mood and affect. Head: Normal appearance, no abnormalities, normocephalic. Neck: Symmetrical and supple, trachea is midline. Cardiac: regular rate, regular rhythm. Respiratory: Respirations are unlabored with normal respiratory rate and normal respiratory movements. Abdomen: Soft, suprapubic tenderness, non-distended Vascular: There are +2 pulses noted in both upper and lower extremities. : Skin color and turgor appropriate for region. No ulcers, erythema, rashes, or pigmented lesions noted. PROSTATE: Perianal area intact without lesions or visible hemorrhoids. No fissures or fistulas. Right sided rectal tenderness with palpation. Good sphincter tone, no masses. Prostate is symmetrical, smooth, boggy, enlarged, non-tender and without nodules. Seminal vesicles are non-palpable. Approximate size is 40 grams. Extremities: Warm, without edema or ulcerations. Musculoskeletal: [place] is symmetrical and balanced. DIAGNOSTIC Postvoid residual by bladder scan 36 ml. ASSESSMENT / PLAN #1 Chronic Prostatitis, acute episode #2 Constipation We had a long discussion about his symptoms and treatment recommendations for chronic prostatitis. At this time, antibiotics will be sent to his pharmacy, doxycycline 100 mg twice daily for 21 days wassent to his pharmacy. If symptoms do not improve we can repeat for a complete 6 week course. Orders are also provided for pelvic floor physical therapy. Follow-up in 6-8 weeks, sooner if needed. Signed by: Sabrina Valadez APRN, C.N.P. 01/14/2021 9:32 AM CDT documented in this encounter Plan of Treatment Upcoming Encounters Date Type Specialty Care Team Description 04/23/2022 Office Visit Cardiovascular Disease Blas Peck M.D. [address] [place] [phone] (Wo rk) documented as of this encounter Visit Diagnoses Diagnosis Prostatitis Chronic - Primary Overactive Bladder Constipation documented in this encounter Additional Health Concerns Assessment Noted Time PHQ-9 Depression Total Score: 1 10/31/2019 2:00 PM CDT documented as of this encounter Care Teams Children'S Librarian Relationship Specialty Start Date End Date Caryn Hayward P.A.-C. PCP - General 07/25/20 09/19/[address] [phone] documented as of this encounter
--- OUTSIDE RECORDS SUMMARY | 2022-02-17 12:14 | XMS_ITS | Encounter Summary ---
:1950 Author Organization [facility] Address [address] [place] [address] Care Team Providers Name Role Phone Caryn Hayward P.A.-C. Primary Care Provider Reason for Referral Outpatient (Routine) - Closed Specialty Diagnoses / Procedures Referred By Contact Refer red To Contact Diagnoses Cough Unspecified Type Jerrica Staley P.A.-C. [facility] Region Procedures DX Chest AP or PA and Lateral 2 [address] [place] [address] Referral ID Status Reason Start Date Expiration Date Visits Requ ested Visits Authorized [id number] Closed 07/16/2021 07/16/2022 1 1 Reason for Visit Outpatient (Routine) - Closed Specialty Diagnoses / Procedures Referred By Contact Refer red To Contact Diagnoses Cough Unspecified Type Jerrica Staley P.A.-C. [facility] Region Procedures DX Chest AP or PA and Lateral 2 [address] [place] [address] Referral ID Status Reason Start Date Expiration Date Visits Requ ested Visits Authorized [id number] Closed 07/16/2021 07/16/2022 1 1 Encounter Details Date Type Department Care Team Description 07/16/2021 Hospital Encounter Department of [place], Cough Un specified Radiology [place] [address] [facility] [address] [facility] [place] [address] [phone] Social History Tobacco Use Types Packs/Day Years [...] is covered by insurance. Dx:E11.9 blood-glucose meter [facility] [place] Dispense glucose 1 each 0 10/25 meter, [...] Office Visit Cardiovascular Disease Blas Peck M.D. [address] [place] [address] [place], [place] [phone] (Wo rk) documented as of this encounter Procedures Procedure Name Priority Date/Time Associated Comments Diagnosis DX CHEST AP OR PA RAD - Routine 07/16/2021 11:48 Cough Unspecified Results for this AND LATERAL 2 (most inpatients AM CDT Type procedure are in VIEWS and all the results outpatients) section. documented in this encounter Results DX Chest AP or [...] Jerrica Staley P.A.-C. IMG DIAGNOSTIC IMAGING PROCE JOVANI documented in this encounter Visit Diagnoses Diagnosis Cough Unspecified Type documented in this encounter Additional Health Concerns Assessment Noted Time PHQ-9 Depression Total Score: 4 07/16/2021 10:55 AM CD T documented as of this encounter Care Teams Larriman Helper Relationship Specialty Start Date End Date Caryn Hayward P.A.-C. PCP - General 07/25/20 09/19/[address] [address] documented as of this encounter
--- OUTSIDE RECORDS SUMMARY | 2022-02-17 12:14 | XMS_ITS | Encounter Summary ---
:[address] [facility] Address [address] [place] [address] Care Team Providers Name Role Phone Caryn Hayward P.A.-C. Primary Care Provider Encounter Details Date Type Department Care Team Description 01/24/2021 Clinical Communication Department of [facility] Courtney Hayward, Medicine, [place] [facility], [place] [id number] [place], [place] [address] [address] [place], [place] [phone] [address] (Work) [phone] Social History Tobacco Use Types Packs/Day Years [...] this encounter Miscellaneous Notes Telephone Encounter - Shelia Patel, LMichelleP.N. - 01/28/2021 11:34 AM CDT Spoke with Jorge Canara at [facility] and the patient picked up Álvaro on 01/14/21 at [facility]. He is way too early for the next refill which is on 02/14/21. Jorge will call the patient and explain this to him. Spoke with the patient to begin with and he wants the clinic to call his insurance to get them to okay getting this Trulicity early. In which, he cannot get until 02/14/21. He has plenty of refills at [facility] in [place] and took out [facility] in his chart. He was getting upset because hewants to pick this up and insurance was denying early refill. Telephone Encounter - Shelia Patel L.P.N. - 01/28/2021 9:30 AM CDT Left message to call back on 01/28 @ 9:30am Telephone Encounter - Jacqueline Montoya - 01/24/2021 12:19 PM CDT Reason for Communication: Patient is calling regarding his rx for Trulicity. He has 2 refills left but the pharmacy says they can't refill because his insurance says it's to early to refill. Patient islooking for some guidance. Current Can Nursing/Provider leave a detailed message?: yes Did the patient refuse triage through Nurse line? (for symptom based concerns): na Action Needed: Call back Name of Medication (if relevant): Trulicity Please send all scheduling replies to scheduling pool. documented in this encounter Plan of Treatment Upcoming Encounters Date Type Specialty Care Team Description 04/23/2022 Office Visit Cardiovascular Disease Blas Peck M.D. [address] [place] [phone] (Wo rk) documented as of this encounter Visit Diagnoses Not on filedocumented in this encounter Additional Health Concerns Assessment Noted Time PHQ-9 Depression Total Score: 1 10/31/2019 2:00 PM CDT documented as of this encounter Care Teams Auto Hauler Relationship Specialty Start Date End Date Caryn Hayward P.A.-C. PCP - General 07/25/20 09/19/21 [address], [place] [address] documented as of this encounter
--- OUTSIDE RECORDS SUMMARY | 2022-02-17 12:14 | XMS_ITS | Encounter Summary ---
:1950 Author Organization [facility] Address [address] [place] [address] Care Team Providers Name Role Phone Caryn Hayward P.A.-C. Primary Care Provider Reason for Visit Reason Comments Med Refill Encounter Details Date Type Department Care Team Description 03/29/2021 Refill Department of Internal Lucy Morales APRN, Med Refill Medicine in [facility] C.N.P, D. N.[address] [place] [address] [place] [address] [phone] Social History Tobacco Use Types Packs/Day Years [...] this encounter Miscellaneous Notes Telephone Encounter - Brenda Fajardo - 03/29/2021 11:01 AM CST Lab Results Component Value Date HGBA1C 7.0 (H) 01/11/2021 CHARGER documented in this encounter Plan of Treatment Upcoming Encounters Date Type Specialty Care Team Description 04/23/2022 Office Visit Cardiovascular Disease Blas Peck M.D. [address] [place] [phone] (Wo rk) documented as of this encounter Visit Diagnoses Not on filedocumented in this encounter Additional Health Concerns Assessment Noted Time PHQ-9 Depression Total Score: 1 10/31/2019 2:00 PM CDT documented as of this encounter Care Teams Telephone Service Representative Relationship Specialty Start Date End Date Caryn Hayward P.A.-C. PCP - General 07/25/20 09/19/21 [address] [place] [address] documented as of this encounter
--- OUTSIDE RECORDS SUMMARY | 2022-02-17 12:14 | XMS_ITS | Encounter Summary ---
:1950 Author Organization [facility] Address [address] [place] [address] Care Team Providers Name Role Phone Mainor Caryn Anthony P.A.-C. Primary Care Provider Encounter Details Date Type Department Care Team Description 08/13/2021 Orders Only [facility] PCP [facility] MNT Angela Encarnacion Di abetes Mellitus Type 2 M.DMichelle With Diabetic Neuropathy [address] [facility] Hyperglycemic (HCC) [place] [address] Social History Tobacco Use Types Packs/Day Years [...] Office Visit Cardiovascular Disease Blas Peck M.D. 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 PCP - General 07/25/20 09/19/[address] [address] documented as of this encounter
--- OUTSIDE RECORDS SUMMARY | 2022-02-17 12:14 | XMS_ITS | Encounter Summary ---
:1950 Author Organization [facility] Address [address] [place] [address] Care Team Providers Name Role Phone Caryn Hayward P.A.-C. Primary Care Provider Reason for Visit Reason Comments Med Refill Encounter Details Date Type Department Care Team Description 03/11/2021 Refill Department of Internal Lucy Morales APRN, Med Refill Medicine in [facility] C.N.P, D. N.[address] [place] [address] [place] [address] [phone] Social History Tobacco Use Types Packs/Day Years [...] Notes Telephone Encounter - Brenda Fajardo - 03/12/2021 2:14 PM CST Rx was sent 01/14/2021, # 90 with 3 refills [employer] documented in this encounter Plan of Treatment Upcoming Encounters Date Type Specialty Care Team Description 04/23/2022 Office Visit Cardiovascular Disease Blas Peck M.D. [address] [place] [phone] (Wo rk) documented as of this encounter Visit Diagnoses Diagnosis Overactive Bladder documented in this encounter Additional Health Concerns Assessment Noted Time PHQ-9 Depression Total Score: 1 10/31/2019 2:00 PM CDT documented as of this encounter Care Teams Phlebotomy Technologist Relationship Specialty Start Date End Date Caryn Hayward P.A.-C. PCP - General 07/25/20 09/19/21 [address] [place] [address] documented as of this encounter
--- OUTSIDE RECORDS SUMMARY | 2022-02-17 12:14 | XMS_ITS | Encounter Summary ---
:1950 Author Organization [facility] Address [address] [place] [address] Care Team Providers Name Role Phone Caryn Hayward P.A.-C. Primary Care Provider Reason for Visit Reason Comments Med Refill Encounter Details Date Type Department Care Team Description 02/14/2021 Refill Department of Internal Lucy Morales APRN, Med Refill Medicine in [facility] C.N.P, D. N.P[address] [place] [address] [place] [address] [phone] Social History Tobacco Use Types Packs/Day Years [...] this encounter Miscellaneous Notes Telephone Encounter - Marley Fajardo - 02/14/2021 3:19 PM CDT Nurse review: Unable to forward request to provider; Discrepancy; Patient Med list shows 23 units, pharmacy is requesting 20 units Primary Provider: Caryn Hayward P.A.-C. Requested Prescriptions Pending Prescriptions Disp Refills ??? Lantus U-100 Insulin 100 unit/mL injection [Pharmacy Med Name: LANTUS U-100 INSULIN 10ML] 20 mL 3 Sig: INJECT 20 UNITS SUBCUTANEOUS DAILY WITH SUPPER Pharmacy: [facility] documented in this encounter Plan of Treatment Upcoming Encounters Date Type Specialty Care Team Description 04/23/2022 Office Visit Cardiovascular Disease Blas Peck M.D. [address] [place] [phone] (Wo rk) documented as of this encounter Visit Diagnoses Not on filedocumented in this encounter Additional Health Concerns Assessment Noted Time PHQ-9 Depression Total Score: 1 10/31/2019 2:00 PM CDT documented as of this encounter Care Teams Wage And Salary Administrator Relationship Specialty Start Date End Date Caryn Hayward P.A.-C. PCP - General 07/25/20 09/19/21 [address], [place] [address] documented as of this encounter
--- OUTSIDE RECORDS SUMMARY | 2022-02-17 12:14 | XMS_ITS | Encounter Summary ---
:1950 Author Organization [facility] Address [address] [place] [address] Care Team Providers Name Role Phone Elsewhere, Pcp Primary Care Provider Unavailable Reason for Visit Reason Comments Med Refill Encounter Details Date Type Department Care Team Description 02/09/2022 Refill Department of Urology in Sabrina Valadez APRN, Med Refill [place], [place] C.N.P. [address] [facility] [address] [place] [address] [place] [address] (Wo rk) Social History Tobacco Use Types [...] Cardiovascular Disease Blas Peck M.D. [address] [place], [place] [phone] (Wo rk) documented as of this encounter Visit Diagnoses Not on filedocumented in this encounter Additional Health Concerns Assessment Noted Time PHQ-9 Depression Total Score: 4 07/16/2021 10:55 AM CD T documented as of this encounter Care Teams Dictaphone Operator Relationship Specialty Start Date End Date Elsewhere, Pcp PCP - General Internal Medicine 09/20/21 documented as of this encounter
--- OUTSIDE RECORDS SUMMARY | 2022-02-17 12:14 | XMS_ITS | Clinical Summary ---
:1950 Author Organization [facility] Address [address] [place] [address] Care Team Providers Name Role Phone Elsewhere, Pcp Primary Care Provider Unavailable Source Comments Patient records contain information from all sites at [facility]. For routine questions regarding patient records, call [phone] during business hours, M-F 8:00 AM - 5:00 PM Central Time. Record requests for emergency care only can be directed to [phone] at any time.[facility] Allergies Active Allergy Reactions Severity Noted Date Comments Sertraline Other (see comments) 04/11/2015 Sulfamethoxazole-Trimethoprim Swelling High 01/03/2016 Medications Medication Sig Dispensed Refills Start Date End Date Status polyethylene glycol Take 17 g by 0 08/28/2016 Active (for_MIRALAX) 17 mouth daily. gram powder packet PSYLLIUM HUSK Take 1.7 g by 0 04/25/2016 A ctive (METAMUCIL ORAL) mouth at bedtime. CONTOUR TEST STRIPS USE ONE STRIP 100 strip 4 11/13/2017 Active strips TO CHECK GLUCOSE ONCE DAILY BEFORE BREAKFAST blood sugar 3 test daily. 300 strip 11 10/25/2018 Act re[facility]ka diagnostic (glucose Whatever is blood) strips covered by insurance. Dx:E11.9 blood-glucose meter Dispense 1 each 0 10/25/2018 Active [facility] glucose meter, test strips, lancing device, and lancets covered by the patient insurance. Test 3 times per day. Dx: E11.40, E11.65 lancets Check sugar 3 300 each 3 10/25/2018 Activ e times daily before meals ibuprofen Take 400 mg by 0 11/25/2018 Acti ve (ADVIL,MOTRIN) 200 mouth as mg tablet needed. nitroglycerin Place 1 tablet 25 tablet 0 10/10/2020 Active (NITROSTAT) 0.4 mg (0.4 mg total) SL tablet under the tongue every 5 (five) minutes as needed for chest pain. aspirin [address] Take 1 tablet 0 10/10/2020 Active tablet (81 mg total) by mouth daily. LORazepam (ATIVAN) Take 1 tablet 60 tablet 0 10/18/2020 Active 1 mg tablet (1 mg total) by mouth 2 (two) times a day as needed for anxiety. dulaglutide Inject 0.5 mL 7 mL 3 01/18/2021 Act rebeka (Trulicity) 1.5 (1.5 mg total) mg/0.5 mL pen under the skin injector injection every 7 (seven) days. tamsulosin (FLOMAX) Take 1 capsule 90 capsule 3 01/14/2021 Active 0.4 mg 24 hr (0.4 mg total) capsuleIndications: by mouth daily. Overactive Bladder dulaglutide Inject 0.5 mL 2 mL 11 01/14/2021 Act rebeka (Trulicity) 1.5 (1.5 mg total) mg/0.5 mL pen under the skin injector injection every 7 (seven) days. lisinopriL Take 1 tablet 90 tablet 3 01/14/2021 Acti ve (PRINIVIL,ZESTRIL) (2.5 mg total) 2.5 mg tablet by mouth every morning. metoprolol tartrate Take 1 tablet 180 tablet 3 01/14/2021 Active (LOPRESSOR) 25 mg (25 mg total) tablet by mouth 2 (two) times a day. insulin glargine Inject 23 Units 20 mL 3 02/15/2021 Active (Lantus U-100 under the skin Insulin) 100 every evening. unit/mL injection BD Veo Insulin USE 1 SYRINGE 100 each 3 04/01/2021 Active Syringe UF 0.3 mL DAILY 31 gauge x 15/64 syringe venlafaxine XR TAKE 1 90 capsule 0 09/19/2021 Act rebeka (EFFEXOR-XR) 150 mg CAPSULE(150 MG) 24 hr BY MOUTH DAILY capsuleIndications: Anxiety oxybutynin TAKE 1 90 tablet 3 02/11/2022 Active (DITROPAN-XL) 10 mg TABLET(10 MG) 24 hr tablet BY MOUTH AT BEDTIME atorvastatin TAKE 1 TABLET 90 tablet 0 02/13/2022 Ac tive (LIPITOR) 20 mg BY MOUTH EVERY tablet NIGHT AT BEDTIME oxybutynin Take 1 tablet 90 tablet 3 01/14/2021 Disc ontinued (DITROPAN-XL) 10 mg (10 mg total) 2 24 hr tablet by mouth at bedtime. atorvastatin Take 1 tablet 90 tablet 3 01/14/2021 Di scontinued (LIPITOR) 20 mg (20 mg total) 2 tablet by mouth at bedtime. Active Problems Problem Noted Date Pain Generalized Abdominal 03/14/2020 Last Assessment & Plan: Formatting of is note might be different from the original. This has overall improved since his last visit. He had some changes in his bowel habits. It sounds as though he went from being constipated to having regular bowel movements which was unusual for him. I suspect this was related to starting he althier diet likely eating more fiber at this point. No longer needing medications for constipation. Abdominal pain has improved dramatically. We reviewed his kelli ging done previously including CT scan a nd MRI which were both stable. Encouraged him to follow up if symptoms worsen. 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 Blood pressure is within goal today. Kid flores function and electrolytes remain stable. Continue with current dose of lisinopril and metoprolol. High Risk Medication 02/23/2017 Lower Abdominal Pain Unspecified 02/23/2017 Primary Osteoarthritis Knee Bilateral 12/23/2016 Last Assessment & Plan: Formatting of is note might be different from the original. Reports his knee pain is doing much bett er. He thinks the last cortisone injections he received have been helpful. Has been more active recently and has found this to be helpful as well. He will let me know if he needs a referral back to Orthopedics. Primary Osteoarthritis Hip Bilateral 08/29/2016 Apnea Sleep Obstructive 08/28/2016 Callus [place] Foot 04/25/2016 Diverticulosis Colon 04/25/2016 Overactive Bladder 03/26/2016 Last Assessment & Plan: Formatting of th is note might be different from the original. Overall stable. Continue with oxybutynin and Flomax. Diabetes Mellitus Type 2 With Diabetic Neuropathy Hype rglycemic 01/03/2016 Overview: Maintained on Trulicity and Lantus Last Assessment & Plan: A1c has improved substantially down to 7 .3 and is nearly within goal. He has made a lot of lifestyle changes which I suspect have been helpful. Encouraged him to continue with these including eating hea lthier and engaging in activity. Recomme nded we continue with his current dose of Lantus and Trulicity. Denies any episodes of hypoglycemia. Foot exam updated today. Anxiety 01/03/2016 Last Assessment & Plan: Formatting of th is note might be different from the original. Reports his anxiety is overall stable. Sierra perez is using the Ativan nearly every day but finds it to be helpful in treating panic episodes. Encouraged him to continue to use this sparingly and only as needed. Body Mass Index 34.0 To 34.9 Adult 01/03/2016 Coronary Arterial Bypass Graft Status Post Personal Hi story 01/03/2016 Hyperlipidemia 01/03/2016 Overview: Maintained on Lipitor Last Assessment & Plan: LDL was within goal when last checked in October. Continue with current dose of Lipitor. Irritable Bowel Syndrome With Constipation 01/03/2016 Panic Disorder Episodic Paroxysmal Anxiety 01/03/2016 Rhinitis Allergic 01/03/2016 Frequency Urinary 12/12/2015 Coronary Artery Disease Without Angina Pectoris 2015 Last Assessment & Plan: Formatting of is note might be different from the original. Stable without any complaints of chest p ain. Has not needed to use his nitroglycerin. Continue with daily low-dose aspirin. Last saw Cardiology in November of 2019. Recommend annual cardiology visits. Bowel Habit Change 04/11/2015 Resolved Problems Problem Noted Date Resolved Date Pain Penis 10/27/2017 08/25/2019 Dysuria 10/27/2017 08/25/2019 Sore Throat 10/27/2017 08/29/2019 Pain Ear Bilateral 10/27/2017 08/25/2019 Sinusitis Acute Maxillary 10/27/2017 08/25/2019 Urgency Urinary 05/28/2017 12/24/2017 Polyp Colon Hyperplastic 05/28/2017 09/29/2019 Overview: 05/11/2017 Spasm Bladder 03/26/2016 12/24/2017 Retention Urinary Chronic 02/14/2016 12/24/2017 Polyp Colon Adenomatous 02/05/2016 08/25/2019 Benign Prostatic Hyperplasia Hypertrophy With Obstruction 07/16/2018 Congestion Nasal 01/03/2016 03/13/2020 Hay Fever 01/03/2016 08/25/2019 Numbness 01/03/2016 08/25/2019 Hyponatremia 11/12/2015 03/14/2020 Encounters Date Type Specialty Care Team Description 02/13/2022 Refill Family Medicine Caryn Hayward, P.A.-C. M ed Refill 02/09/2022 Refill Urology Sabrina Valadez APRN, C. N.P. Med Refill 01/17/2022 Refill Family Medicine Caryn Hayward, P.A.-C. M ed Refill from Last 3 Months Immunizations Name Administration Dates Next Due HZV (ZOSTAVAX) 2011 HepB Adult (HEPLISAV-B) 01/14/2021, 03/14/2020 Influenza TIV (IM) 01/24/2014, 01/26/2013, 01/26/2012, 02/10/2011, 02/11/2008, 02/16/2004 Influenza high dose QV(65 years or 03/06/2021 older) (PF) Influenza, Injectable, Quadrivalent 02/16/2015 Influenza, Seasonal, Injectable 01/24/2014, 01/26/2013, 01/11, 02/10/2011, 02/11/2008, 02/16/2004 Influenza, Unspecified 01/26/2020, 01/20/2017, 12/13/2015 PCV13 05/29/2016, 2016 PPSV23 06/18/2018, 01/26/2012 SARS-COV-2 (COVID-19) - MODERNA 03/11/2021 Td Preservative Free (TENIVAC, 08/31/2015 DECAVAC) Td, adsorbed, preservative free, 07/16/1992 (Adult) Unspecified Tdap 08/31/2015 influenza high dose (65 years or 02/28/2019, 02/04/2018, 01/2017, older) (PF) 12/12/2015 influenza vaccine QV(FLUBLOK) (18 01/26/2020 years or older) (PF) Family History Medical History Relation Name Comments Prostate cancer Brother 1 Accident Brother 2 Deep vein thrombosis Father PE - Pulmonary embolism Father Irritable bowel syndrome Grandfather Cataracts Mother Colon cancer Mother Diabetes Mother Hypertension Mother Irritable bowel syndrome Mother Appendicitis Paternal Grandfather Parkinson disease Sister Relation Name Status Comments Brother 1 Alive Brother 2 (Age 38) Father Grandfather Mother Paternal Grandfather Sister Social History Tobacco Use Types Packs/Day Years [...] Date Recorded Male 12/24/2017 1:55 PM CDT Last Filed Vital Signs Vital Sign Reading Time Taken Comments Blood Pressure 107/66 10/28/2021 10:51 AM CDT Pulse 90 10/28/2021 10:51 AM CDT Temperature 36.7 ??C (98.1 ??F) 10/28/2021 10:51 AM CDT Respiratory Rate 12 07/16/2021 10:59 AM CDT Oxygen Saturation 97% 07/16/2021 10:59 AM CDT Inhaled Oxygen Concentration - - Weight 89.9 kg (198 lb 4.9 oz) 07/16/2021 10:59 AM CDT Height 167.6 cm (5' 6) 10/10/2020 10:54 AM CDT Body Mass Index 32.01 10/10/2020 10:54 AM CDT Plan of Treatment Upcoming Encounters Date Type Specialty Care Team Description 04/23/2022 Office Visit Cardiovascular Disease Blas Peck M.D. [address] [place] [address] [place] [phone] (Wo rk) Health Maintenance Due Date Last Done Comments CT Colonography 1950 Cologuard 1950 Zoster Vaccines (2 of 3) 05/18/2011 2011 DTaP,Tdap,and Td Vaccines (1 - 09/01/2015 08/31/2015, 08/30, Tdap) 07/16/1992 Diabetic Office Visit with Foot 03/14/2021 03/14/2020, 0311/2018, Exam 06/18/2018, Additional history exists Dilated Eye Exam 06/18/2021 06/18/2020, 02/15/2019 (Performed elsewhere), 02/01/2018 (Performed elsewhere), Additional history exists Colonoscopy 06/28/2021 06/28/2018, 05/11/2017 (Performed elsewhere), 08/26/2015 (Performed elsewhere), Additional history exists Colorectal Cancer Surveillance 06/28/2021 Urine Albumin 10/08/2021 10/08/2020, 06/14/2019, 09/22/2018, Additional history exists COVID-19 Vaccine (5 - Booster for 10/17/2021 08/22/2021, , Moderna series) 06/03/2020, Additional history exists Creatinine Level 01/11/2022 01/11/2021, 03/12/2020, 11/10/2019, Additional history exists Potassium Level 01/11/2022 01/11/2021, 03/12/2020, 11/10/2019, Additional history exists Sodium Level 01/11/2022 01/11/2021, 03/12/2020, 11/10/2019, Additional history exists Hemoglobin A1C 01/14/2022 07/15/2021, 01/11/2021, 10/08/2020, Additional history exists Office Visit for Blood Pressure 10/28/2022 10/28/2021 Check / Re-check Lipid (Cholesterol) Screening 01/11/2026 01/11/2021, 2019, 09/22/2018, Additional history exists Hepatitis C Screening Completed 10/17/2016 Pneumococcal vaccine (65+ years) Completed 06/18/2018, , 2016, Additional history exists Abdominal Aortic Aneurysm (AAA) Completed 10/17/2020, 07/04/2019, Screen 10/12/2019, Additional history exists Hepatitis B Vaccines Completed 01/14/2021, 03/14/2020 Depression Screening (Annual Completed 07/16/2021 PHQ-2) Fall Risk Screen (Annual) Completed 07/16/2021 Influenza Vaccine Completed 01/21/2022, 03/06/2021, 01/26/2020, Additional history exists Medical Devices Implanted Type Area It Operations Analyst Device Shelf Model / Identifier Expiration Date Ser ial / Lot Cardiac Other Cardiac Chest Implanted: 08/25/2016 (Quantity not on file) Other Description: Body Location - Chest. Jess ce Status Text - CardOther. wires. Hardware E.G. Pins/Screws/Rods-05/08/2017 Hardware e.g. pins/screws/ro ds Chest Implanted: 05/08/2017 (Quantity not on file) Description: Device Status Text - Hardwa re. Cabg X4-05/28/2014 Vascular Graft Coronary Implanted: 05/28/2014 (Quantity not on file) Insurance Payer Benefit Plan / Subscriber ID Effective Dates Phone Addre ss Type Group MEDICARE MEDICARE B [id number] 2016-Presen [address] [place] [address] MEDICA MEDICA CHOICE [id number] 2017-Presen [address] [address] Medicaid [place] [address] Care Teams Respiratory Practitioner Relationship Specialty Start Date End Date Elsewhere, Pcp PCP - General Internal Medicine 09/20/21
--- OUTSIDE RECORDS SUMMARY | 2022-02-17 12:14 | XMS_ITS | Encounter Summary ---
:1950 Author Organization [facility] Address [address] [place] [address] Care Team Providers Name Role Phone Caryn Hayward P.A.-C. Primary Care Provider Reason for Visit Reason Comments Med Refill Encounter Details Date Type Department Care Team Description 01/16/2021 Refill Division of Endocrinology in Raj Navarro, Med Refill [employer], [place] Denise, Ph.D. [address] [facility] [address] [place] [phone] [place], [place] [phone] (Wo rk) Social History Tobacco Use Types [...] this encounter Miscellaneous Notes Telephone Encounter - Delmis Kern R.N. - 01/16/2021 9:45 AM CDT PCP filled earlier in the week documented in this encounter Plan of Treatment Upcoming Encounters Date Type Specialty Care Team Description 04/23/2022 Office Visit Cardiovascular Disease Blas Peck M.D. [address] [place] [phone] (Wo rk) documented as of this encounter Visit Diagnoses Not on filedocumented in this encounter Additional Health Concerns Assessment Noted Time PHQ-9 Depression Total Score: 1 10/31/2019 2:00 PM CDT documented as of this encounter Care Teams Elastic Attacher Zigzag Relationship Specialty Start Date End Date Caryn Hayward, AneeshARajani. PCP - General 07/25/20 09/19/21 [address] [facility] [place] [address] documented as of this encounter
--- OUTSIDE RECORDS SUMMARY | 2022-02-17 12:14 | XMS_ITS | Encounter Summary ---
:1950 Author Organization [facility] Address [address] [place] [address] Care Team Providers Name Role Phone Elsewhere, Pcp Primary Care Provider Unavailable Reason for Visit Reason Comments Med Refill Encounter Details Date Type Department Care Team Description 01/17/2022 Refill Department of Family Medicine, Caryn Roca P.A.-C. Med Refill [facility], in [address] [place] [address] [place] [address] [place] [address] [phone] Social History Tobacco Use Types Packs/Day Years [...] this encounter Miscellaneous Notes Telephone Encounter - Nanda Martin - 01/17/2022 1:46 PM CDT No longer has PCP listed at [facility] documented in this encounter Plan of Treatment Upcoming Encounters Date Type Specialty Care Team Description 04/23/2022 Office Visit Cardiovascular Disease Pessanha, Blas S, M.D. [address] [place] [phone] (Wo rk) documented as of this encounter Visit Diagnoses Not on filedocumented in this encounter Additional Health Concerns Assessment Noted Time PHQ-9 Depression Total Score: 4 07/16/2021 10:55 AM CD T documented as of this encounter Care Teams Front Desk Officer Relationship Specialty Start Date End Date Elsewhere, Pcp PCP - General Internal Medicine 09/20/21 documented as of this encounter
--- OUTSIDE RECORDS SUMMARY | 2022-02-17 12:15 | XMS_ITS | Encounter Summary ---
:1950 Author Organization [facility] Address [address] [place] [address] Care Team Providers Name Role Phone Caryn Hayward P.A.-C. Primary Care Provider Reason for Visit Reason Comments Med Refill Encounter Details Date Type Department Care Team Description 11/17/2020 Refill Department of Internal Aquilino Bob D.O. Med Refill Medicine in [facility] [address] [place] [address] [address] [place] [address] [facility] [phone] Social History Tobacco Use Types Packs/Day Years [...] Office Visit Cardiovascular Disease Blas Peck M.D. [address] [place] [phone] (Wo rk) documented as of this encounter Visit Diagnoses Not on filedocumented in this encounter Additional Health Concerns Assessment Noted Time PHQ-9 Depression Total Score: 1 10/31/2019 2:00 PM CDT documented as of this encounter Care Teams Air Traffic Systems Technician Relationship Specialty Start Date End Date Crayn Hayward P.A.-C. PCP - General 07/25/20 09/19/[address] [place] [address] [phone] documented as of this encounter
--- OUTSIDE RECORDS SUMMARY | 2022-02-17 12:15 | XMS_ITS | Encounter Summary ---
:1950 Author Organization [facility] Address [address] [place] [address] Care Team Providers Name Role Phone Caryn Hayward P.A.-C. Primary Care Provider Reason for Visit Reason Comments Results Encounter Details Date Type Department Care Team Description 10/08/2020 Clinical Communication Department of [facility] Courtney Hayward, [facility] Medicine, [facility], [place] [address] [place], [place] [address] [address] [place], [place] [phone] [address] (Work) [phone] Social History Tobacco Use Types Packs/Day Years [...] this encounter Miscellaneous Notes Telephone Encounter - Evelyn Bellamy R.M.A. - 10/09/2020 10:29 AM CDT SUBJECTIVE CHIEF COMPLAINT / REASON FOR CALL Results PLAN The following information was provided: Called and notified patient of results. Information/Education: patient/caller able to teach back The following references were used: none Telephone Encounter - Jj Carter C.M.A. - 10/08/2020 4:37 PM CDT Left message for patient to return call to clinic. ?? Does the patient need to speak to nursing? N/A ?? Action needed: Patient needs to be informed of the following results per Suzanne Velasquez-CMichelle ?? Please let patient know that HgbA1c is stable at 7.1 Telephone Encounter - Taiwo Lovell - 10/08/2020 4:06 PM CDT Reason for Communication: Patient calling back. I was unable to reach nurse. Please give patient a call back. Current Can Nursing/Provider leave a detailed message?: NA Did the patient refuse triage through Nurse line? (for symptom based concerns): NA Action Needed: Please give patient a call back. Name of Medication (if relevant): NA Telephone Encounter - Rosamaria Ramesh C.M.A. - 10/08/2020 4:01 PM CDT Left message for patient to return call to clinic. Does the patient need to speak to nursing? N/A Action needed: Patient needs to be informed of the following results per Dhruv Velasquez.-C. ?? Please let patient know that HgbA1c is stable at 7.1 Telephone Encounter - Vandana Leary - 10/08/2020 12:51 PM CDT Reason for Communication: Patient returned nurse's call. Tried to reach a nurse but was not able to. Current Can Nursing/Provider leave a detailed message?: No Did the patient refuse triage through Nurse line? (for symptom based concerns): Action Needed: Please call patient back Name of Medication (if relevant): Telephone Encounter - Bailey Spence - 10/08/2020 12:38 PM CDT Left message for patient to return call to clinic. Does the patient need to speak to nursing? yes Action needed: Patient needs to be informed of the following results per Caryn Hayward P.A.-C. Please let patient know that HgbA1c is stable at 7.1 documented in this encounter Plan of Treatment Upcoming Encounters Date Type Specialty Care Team Description 04/23/2022 Office Visit Cardiovascular Disease Blas Peck M.D. [address] [place] [phone] (Wo rk) documented as of this encounter Visit Diagnoses Not on filedocumented in this encounter Additional Health Concerns Assessment Noted Time PHQ-9 Depression Total Score: 1 10/31/2019 2:00 PM CDT documented as of this encounter Care Teams Athletic Events Scorer Relationship Specialty Start Date End Date Caryn Hayward PMichelleA.-C. PCP - General 07/25/20 09/19/[address] [phone] documented as of this encounter
--- OUTSIDE RECORDS SUMMARY | 2022-02-17 12:15 | XMS_ITS | Encounter Summary ---
:1950 Author Organization [facility] Address [address] [place] [address] Care Team Providers Name Role Phone Caryn Hayward P.A.-C. Primary Care Provider Reason for Visit Reason Comments Diabetes Labs done 01/11/2021- No Con cerns Outpatient (Routine) - Closed Specialty Diagnoses / Procedures Referred By Contact Refer red To Contact Family Medicine Salma Villeda, BRIAN, C.N.P. [facility] Region Referral ID Status Reason Start Date Expiration Date Visits Requ ested Visits Authorized [id number] Closed 10/10/2020 10/10/2021 1 1 Encounter Details Date Type Department Care Team Description 01/14/2021 Office Visit Department of [facility] Caryn Hayward, Diab etes Mellitus Type 2 With Diabetic Neuropathy Hyperglycemic (HCC) (Primary Dx); Medicine, Brayden Dash Hypertensive Heart And Chronic Kidney Di sease Without Heart Failure And With Stage 2 (Mild) Chronic Kidney Disease; Clinic, in [facility] 2199 Obesity Body Mass Index 30-39.9 Adult; [place], [place] Hyperlipidemia; [address] [address] Hypercalcemia; [place], [place] [phone] Need Vaccine I mmunization [id number] (Work) [phone] Social History Tobacco Use Types Packs/Day Years Used Date Smoking Tobacco: Every Day Pipe Smokeless Tobacco: Never Tobacco Cessation: Ready to Quit: No; Co unseling Given: Yes Comments: pipe Alcohol Use Standard Drinks/Week Comments [...] Sign Reading Time Taken Comments Blood Pressure 105/70 01/14/2021 10:31 AM CDT Average Pulse 79 01/14/2021 10:31 AM CDT Temperature 36.3 ??C (97.4 ??F) 01/14/2021 10:31 AM CDT Respiratory Rate 16 01/14/2021 10:31 AM CDT Oxygen Saturation - - Inhaled Oxygen Concentration - - Weight 92.8 kg (204 lb 9.4 oz) 01/14/2021 10:31 AM CDT Height - - Body Mass Index 33.02 10/10/2020 10:54 AM CDT documented in this encounter Progress Notes Caryn Hayward P.A.-C. - 01/14/2021 10:30 AM CDT SUBJECTIVE CHIEF COMPLAINT/REASON FOR VISIT Chief Complaint Patient presents with ??? Diabetes Labs done 01/11/2021- No Concerns HISTORY OF PRESENT ILLNESS Elvis Dawkins is a pleasant 70 y.o. male who presents to the clinic today for diabetes check. Patient has history of diabetes mellitus type 2 currently treated with Trulicity and Lantus. Patientreports fasting blood sugars range between 120 and 180. He occasionally has low blood sugar in the 90s and reports weakness associated with low sugar. Patient smokes pipe daily and is not interested insmoking cessation. REVIEW OF SYSTEMS Pertinent positive ROS are listed above in HPI. Patient Active Problem List Diagnosis ??? 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 Coronary Artery Disease Without Angina Pectoris ??? Anxiety ??? Apnea Sleep Obstructive ??? Body Mass Index 34.0 To 34.9 Adult ??? Callus [place] Foot ??? Bowel Habit Change ??? Coronary [...] bedtime., Disp: 90 tablet, Rfl: 3 ??? blood sugar diagnostic (glucose blood) strips, 3 test daily. Whatever is covered by insurance. Dx:E11.9, Disp: 300 strip, Rfl: 11 ??? blood-glucose meter [facility], Dispense glucose meter, test strips, lancing device, and lancets covered by the patient insurance. Test 3 times per day. Dx: E11.40, E11.65, Disp: 1 each, Rfl: 0 ??? CONTOUR TEST STRIPS strips, USE ONE STRIP TO CHECK GLUCOSE ONCE DAILY BEFORE BREAKFAST, Disp: 100 strip, Rfl: 4 ??? doxycycline monohydrate (ADOXA) 100 mg tablet, Take 1 tablet (100 mg total) by mouth 2 (two) times a day for 21 days., Disp: 42 tablet, Rfl: 0 ??? dulaglutide (Trulicity) 1.5 mg/0.5 mL pen injector injection, Inject 0.5 mL (1.5 mg total) underthe skin every 7 (seven) days., Disp: 2 mL, Rfl: 11 ??? ibuprofen (ADVIL,MOTRIN) 200 mg tablet, Take 400 mg by mouth as needed. , Disp: , Rfl: ??? insulin syringe-needle U-100 0.3 mL 31 gauge x 15/64 syringe, 1 Injection daily., Disp: 100 Syringe, Rfl: 3 ??? lancets, Check sugar 3 times daily before meals, Disp: 300 each, Rfl: 3 ??? Lantus U-100 Insulin 100 unit/mL injection, Inject 23 Units under the skin daily with dinner., Disp: 20 mL, Rfl: 3 ??? lisinopriL (PRINIVIL,ZESTRIL) 2.5 mg [...] tablet, Rfl: 0 OBJECTIVE VITAL SIGNS Vitals: 01/14/21 1031 BP: 105/70 Pulse: 79 Resp: 16 Temp: 36.3 ??C PHYSICAL EXAMINATION General: Well-nourished, well-developed 70 y.o. in no apparent distress. Awake, alert, age appropriate. HEENT: Head is normocephalic, atraumatic. Pupils round and reactive bilaterally. EOM's intact. Conjunctivae and sclerae are clear. TM's are normal bilaterally. Nares patent with normal mucosa. Oropharynx pink and moist without exudate or erythema. Neck: Neck is supple without lymphadenopathy. Cardiovascular: Regular rate and rhythm without murmurs. Lungs: Clear to auscultation bilaterally with no adventitious sounds Skin: Warm, pink, and dry. No rashes or lesions. Diabetic Foot Exam: [place] lateral aspect sole right foot. No signs of infection. Monofilament testingnormal bilaterally. Intact light touch sensation bilaterally. Dorsalis pedis and posterior tibialis pulses 2+ bilaterally. Diffuse onychomycosis bilateral toenails. ASSESSMENT / PLAN IMPRESSION/REPORT/PLAN: #1 Diabetes Mellitus Type 2 With Diabetic Neuropathy Hyperglycemic (HCC) -Last ZfjM8i=9.0 (01/11/21) -Complications: Neuropathy, chronic kidney disease -Diabetes Medications: Trulicity 1.5 mg weekly, Lantus 23 units daily -Aspirin Therapy: 81mg. -Statin therapy: Atorvastatin 20 mg -JOLYNN/ARB therapy: Lisinopril 2.5mg -Last dilated eye exam: 06/18/20 -Last foot exam/monofilament: Completed today. -Patient should follow-up for diabetes check in 6 months. We will have hemoglobin A1c checked prior to visit. 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 Continue with metoprolol and lisinopril. #3 Obesity Body Mass Index 30-39.9 Adult -Encouraged patient to eat foods closest to their original form such as fruits, meats and vegetablesand limit consumption of carbs/sugar. Recommend 30 min or more of physical activity 5-7 days a week to prevent weight gain and improve cardiovascular health. #4 Hyperlipidemia -Lipid profile reviewed; all components are at goal. Continue with atorvastatin. -Refilled atorvastatin (LIPITOR) 20 mg tablet; Take 1 tablet (20 mg total) by mouth at bedtime. #5 Hypercalcemia Calcium elevated on BMP. Recommend rechecking calcium in 1 week. Patient should be well hydrated in fasting for lab. -Calcium, Total; Future #6 Need Vaccine Immunization -HepB: hepatitis B adult (Heplisav-B) vaccine (age 18 years and older) given. All questions have been answered.Patient demonstrated understanding and verbalized agreement with the plan. Total time spent is 40 minutes. Caryn Hayward P.A.-C. documented in this encounter Plan of Treatment Upcoming Encounters Date Type Specialty Care Team Description 04/23/2022 Office Visit Cardiovascular Disease Blas Peck M.D. [address] [place] [address] [place], [place] [phone] (Wo rk) documented as of this encounter Results (ABNORMAL) Hemoglobin A1c (07/15/2021 1:01 PM CDT) athologist Signature Hemoglobin A1c, 7.4 (H) 4.2 [...] Organization Address City/State/ZIP Code Phon e Number [facility]- [address] [place] [address] [facility] [place] [address] System in [place] [address] Calcium, Total (07/15/2021 1:01 PM CDT) athologist Signature Calcium, Total, 9.3 8.8 - 10.2 07/15/2021 OW[facility] P mg/dL 3:59 PM CDT Specimen Anatomical Collection Method Collection Time Receive d Time (Source) Location / / Volume Laterality Blood (Blood, 07/15/2021 1:01 PM 07/16/19 3:37 Venous) CDT PM CDT Caryn Hayward P.A.-C. LAB BLOOD ADD-ON Performing Organization Address City/State/ZIP Code Phon e Number [facility]- [address] [place] [address] [facility] [place] [address] System in [place] [address] documented in this encounter Visit Diagnoses Diagnosis 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 Hyperglycemic (HCC) - Primary Hypertensive Heart And Chronic Kidney Di sease Without Heart Failure And With Stage 2 (Mild) Chronic Kidney Disease Obesity Body Mass Index 30-39.9 Adult Hyperlipidemia Hypercalcemia Need Vaccine Immunization documented in this encounter Additional Health Concerns Assessment Noted Time PHQ-9 Depression Total Score: 1 10/31/2019 2:00 PM CDT documented as of this encounter Care Teams Chain Link Fence Installer Relationship Specialty Start Date End Date Caryn Hayward P.A.-C. PCP - General 07/25/20 09/19/212199 [place] [address] documented as of this encounter
--- OUTSIDE RECORDS SUMMARY | 2022-02-17 12:15 | XMS_ITS | Encounter Summary ---
:1950 Author Organization [facility] Address [address] [place] [address] Care Team Providers Name Role Phone Caryn Hayward P.A.-C. Primary Care Provider Encounter Details Date Type Department Care Team Description 10/11/2020 Clinical Communication Department of Salma Abbott, [facility] BRIAN CMichelleNMichellePMichelle [facility], in [address] [phone] Social History Tobacco Use Types Packs/Day Years [...] encounter Miscellaneous Notes Telephone Encounter - Mary Dennis L.P.N. - 10/11/2020 11:09 AM CDT SUBJECTIVE CHIEF COMPLAINT / REASON FOR CALL No chief complaint on file. Information Discussed Patient was reached and notified of results. PLAN Disposition/Recommendation: N/A Information/Education: patient/caller able to teach back Caller agreeable to plan of care: yes The following references were used: provider Salma Villeda TOWBOAT OPERATOR Telephone Encounter - Toshia Santizo - 10/11/2020 11:01 AM CDT Reason for Communication: Patient returned call. Current Can Nursing/Provider leave a detailed message?: Did the patient refuse triage through Nurse line? (for symptom based concerns): Action Needed: phone call Name of Medication (if relevant): Telephone Encounter - Evelyn Bellamy R.MAusten - 10/11/2020 9:04 AM CDT Left message for patient to return call to clinic. Does the patient need to speak to nursing? yes Action needed: per Salma Villeda,TOWBOAT OPERATOR Please notify the patient that the gonorrhea and chlamydia screen was negative. ??The urinalysis is negative for infection and stable with less glucose in it than previous UAs. ??Thank you! documented in this encounter Plan of Treatment Upcoming Encounters Date Type Specialty Care Team Description 04/23/2022 Office Visit Cardiovascular Disease Blas Peck M.D. [address] [place] [phone] (Wo rk) documented as of this encounter Visit Diagnoses Not on filedocumented in this encounter Additional Health Concerns Assessment Noted Time PHQ-9 Depression Total Score: 1 10/31/2019 2:00 PM CDT documented as of this encounter Care Teams Bow Rehairer Relationship Specialty Start Date End Date Caryn Hayward P.A.-C. PCP - General 07/25/20 09/19/21 [address], [place] [address] documented as of this encounter
--- OUTSIDE RECORDS SUMMARY | 2022-02-17 12:15 | XMS_ITS | Encounter Summary ---
:1950 Author Organization [facility] Address [address] [place] [address] Care Team Providers Name Role Phone Caryn Hayward P.A.-C. Primary Care Provider Encounter Details Date Type Department Care Team Description 10/25/2020 Clinical Communication Department of [facility] aSlma Villeda, [facility] BRIAN, C.N.PMichelle [facility], in [address] [phone] Social History Tobacco Use Types [...] this encounter Miscellaneous Notes Telephone Encounter - Lulú Dukes LMichelleP.N. - 10/30/2020 9:29 AM CDT Mailbox is full Telephone Encounter - Salma Villeda APRN, C.N.P. - 10/29/2020 10:25 PM CDT Hi nursing, please call the patient in follow up of his request for a pelvic US. Has his pain moved into the pelvis now and less in the abdomen? Is he having urinary symptoms? I would be happy to ordera pelvic US or refer him back to urology if he has new or worsening pelvic pain. Thank you! Telephone Encounter - Betty Guillen Jo - 10/25/2020 3:59 PM CDT Reason for Communication: Called patient to schedule December labs and follow. Patient is not interested at this time. What he wants is another US. He is not happy with the results of the last US and believes that it should be viewed from the navel and down. He says he is in pain everyday. Please contact patient regarding another US. Current Can Nursing/Provider leave a detailed message?: Did the patient refuse triage through Nurse line? (for symptom based concerns): Action Needed: Please contact patient Name of Medication (if relevant): Please send all scheduling replies to scheduling pool. documented in this encounter Plan of Treatment Upcoming Encounters Date Type Specialty Care Team Description 04/23/2022 Office Visit Cardiovascular Disease Blas Peck M.D. [address] [place] [phone] (Wo rk) documented as of this encounter Visit Diagnoses Not on filedocumented in this encounter Additional Health Concerns Assessment Noted Time PHQ-9 Depression Total Score: 1 10/31/2019 2:00 PM CDT documented as of this encounter Care Teams Computer Meteorologist Relationship Specialty Start Date End Date Caryn Hayward P.A.-C. PCP - General 07/25/20 09/19/21 [address] [place] [phone] documented as of this encounter
--- OUTSIDE RECORDS SUMMARY | 2022-02-17 12:15 | XMS_ITS | Encounter Summary ---
:1950 Author Organization [facility] Address [address] [place] [address] Care Team Providers Name Role Phone Caryn Hayward P.A.-C. Primary Care Provider Encounter Details Date Type Department Care Team Description 10/10/2020 Hospital Encounter Department of Salma Villeda, Pain Ri ght Lower Quadrant; Laboratory Medicine PRODUCTION MINER CMichelleNMichelleP. Pain Lef t Lower Quadrant in [address] [phone] Social History Tobacco Use Types Packs/Day Years [...] mg DR tablet Take 1 tablet (81 0 10/10 mg total) by mouth daily. blood sugar diagnostic 3 test daily. 300 strip 11 10/25/2018 (glucose blood) strips Whatever is covered by insurance. Dx:E11.9 blood-glucose meter [facility] Dispense glucose 1 each 0 10/25 meter, test strips, lancing device, and lancets covered by the patient insurance. Test 3 times per day. Dx: E11.40, E11.65 CONTOUR TEST STRIPS USE ONE STRIP TO 100 strip 4 11/13/2017 strips CHECK GLUCOSE ONCE DAILY BEFORE BREAKFAST ibuprofen (ADVIL,MOTRIN) Take 400 mg by 0 019 200 mg tablet mouth as needed. lancets Check sugar 3 times 300 each 3 10/25/2018 daily before meals nitroglycerin Place 1 tablet (0.4 25 tablet 0 10/10/2020 (NITROSTAT) 0.4 mg SL mg total) under the tablet tongue every 5 (five) minutes as needed for chest pain. polyethylene glycol Take 17 g by mouth 0 08/29/19 17 (for_MIRALAX) 17 gram daily. powder packet PSYLLIUM HUSK (METAMUCIL Take 1.7 g by mouth 0 ORAL) at bedtime. atorvastatin (LIPITOR) Take 1 tablet (20 90 tablet 1 202011/26/2020 20 mg tablet mg total) by mouth at bedtime. dulaglutide (Trulicity) Inject 0.5 mL (1.5 2 mL 10/1301/14/2021 1.5 mg/0.5 mL pen mg total) under the injector injection skin every 7 (seven) days. insulin syringe-needle 1 Injection daily. 100 Syringe 3 03/1303/29/2021 U-100 0.3 mL 31 gauge x 15/64 syringe Lantus U-100 Insulin 100 Inject 23 Units 20 mL 3 202002/15/2021 unit/mL injection under the skin daily with dinner. lisinopril TAKE 1 TABLET BY 90 tablet 3 05/19/2019 01/15/20 21 (PRINIVIL,ZESTRIL) 2.5 MOUTH IN THE mg tablet MORNING LORazepam (ATIVAN) 1 mg Take 1 tablet (1 mg 60 tablet 0 10/18/2020 tabletIndications: Panic total) by mouth 2 Disorder Episodic (two) times a day Paroxysmal Anxiety as needed for anxiety. metoprolol tartrate Take 1 tablet by 180 tablet 3 06/21/2019 01/14/2021 (LOPRESSOR) 25 mg tablet mouth twice daily oxybutynin (DITROPAN-XL) Take 10 mg by mouth 0 05 /02/2021 11/20/2020 10 mg 24 hr tablet at bedtime. tamsulosin (FLOMAX) 0.4 Take 1 capsule (0.4 90 capsule 3 05/201901/14/2021 mg 24 hr mg total) by mouth capsuleIndications: daily. Overactive Bladder venlafaxine XR Take 1 capsule (150 90 capsule 0 09/26/2020 0 12/24/2020 (EFFEXOR-XR) 150 mg 24 mg total) by mouth hr capsuleIndications: daily. Anxiety documented as of this encounter Plan of Treatment Upcoming Encounters Date Type Specialty Care Team Description 04/23/2022 Office Visit Cardiovascular Disease Blas Peck M.D. [address] [place], [place] [phone] (Wo rk) documented as of this encounter Procedures Procedure Name Priority Date/Time Associated Comments Diagnosis URINALYSIS WITH Routine 10/10/2020 12:22 Pain Right Lower Resu lts for this MICROSCOPIC PM CDT Quadrant procedure are in Pain Left Lower the results Quadrant section. documented in this encounter Results (ABNORMAL) Urinalysis with Microscopic: Urine, Midstream (10/10/2020 12:22 PM CDT) athologist Signature Source Midstream 10/10/2020 FB60 1:17 PM CDT Clarity Clear Clear 10/10/2020 FB60 1:30 PM CDT Color Yellow 10/10/2020 FB60 1:30 PM CDT Comment: ----REFERENCE VALUE---- Colorless Yellow Linda Blood Negative Negative 10/10/2020 1:30 PM CDT FB60 Nitrite Negative Negative 10/10/2020 1:30 PM CDT FB60 Leukocyte Esterase Negative Negative 10/10/2020 1:30 PM CD T FB60 Protein Negative mg/dL 10/10/2020 1:30 PM CDT FB60 Comment: ----REFERENCE VALUE---- Negative Trace Glucose 100 (A) Negative mg/dL 10/10/2020 1:30 PM CDT FB 60 Ketones, QI(U) Negative Negative mg/dL 10/10/2020 1:30 PM C DT FB60 Bilirubin Negative Negative 10/10/2020 1:30 PM CDT FB60 pH 7.0 5.0 - 8.0 10/10/2020 1:30 PM CDT FB60 Specific [place] 1.015 1.001 - 1.035 10/10/2020 1:30 PM CDT FB60 Urobilinogen 0.2 0.2 - 1.0 mg/dL 10/10/2020 1:30 PM CD T FB60 White Blood Cells None Seen /hpf 10/10/2020 1:30 PM CDT FB60 Comment: ----REFERENCE VALUE---- Males: 0-3 Females: 0-10 Unknown: 0-10 Red Blood Cells None Seen 0 - 2 /hpf 10/10/2020 1:30 PM CDT FB60 Specimen Anatomical Collection Method Collection Time Receive d Time (Source) Location / / Volume Laterality Urine (Urine, 10/10/2020 12:22 10/10/2020 1:02 Midstream) PM CDT PM CDT Salma Villeda APRN CMichelleNMichellePMichelle LAB URINE ORDERABLES Performing Organization Address City/State/ZIP Code Phon e Number [address] [place] [address] [facility] [place] [address] System [address] documented in this encounter Visit Diagnoses Diagnosis Pain Right Lower Quadrant Pain Left Lower Quadrant documented in this encounter Additional Health Concerns Assessment Noted Time PHQ-9 Depression Total Score: 1 10/31/2019 2:00 PM CDT documented as of this encounter Care Teams Partnership Manager Relationship Specialty Start Date End Date Caryn Hayward P.A.-C. PCP - General 07/25/20 09/19/[address] [phone] documented as of this encounter
--- OUTSIDE RECORDS SUMMARY | 2022-02-17 12:15 | XMS_ITS | Encounter Summary ---
:1950 Author Organization [facility] Address [address] [place] [address] Care Team Providers Name Role Phone Caryn Hawyard P.A.-C. Primary Care Provider Encounter Details Date Type Department Care Team Description 12/24/2020 Clinical Communication Department of [facility] Courtney Hayward, Medicine, Genoaderic Dash [facility], in [address] [place], [place] [address] [address] [place], [place] [phone] (Work) [phone] Social History Tobacco Use Types Packs/Day Years [...] this encounter Miscellaneous Notes Telephone Encounter - Jenniffer Jacobson C.M.A. - 12/24/2020 12:56 PM CDT Patient last saw you on 10/10/20 PCP is Caryn Tobar she last filled this medication on 09/26/20. Patient has not been seen in the clinic last time was with you on 10/10/20. I have pended up the medication for you. Telephone Encounter - Archana Smiley L.P.N. - 12/24/2020 12:47 PM CDT Patient has been seeing Salma Villeda Telephone Encounter - Jessica Kumar - 12/24/2020 10:49 AM CDT Needs refill for Venlafaxine 150 mg ER capsules to [facility]. documented in this encounter Plan of Treatment Upcoming Encounters Date Type Specialty Care Team Description 04/23/2022 Office Visit Cardiovascular Disease Blas Peck M.D. [address] [place] [phone] (Wo rk) documented as of this encounter Visit Diagnoses Diagnosis Anxiety documented in this encounter Additional Health Concerns Assessment Noted Time PHQ-9 Depression Total Score: 1 10/31/2019 2:00 PM CDT documented as of this encounter Care Teams Seismograph Chief Relationship Specialty Start Date End Date Caryn Hayward P.A.-C. PCP - General 07/25/20 09/19/[address] [phone] documented as of this encounter
--- OUTSIDE RECORDS SUMMARY | 2022-02-17 12:15 | XMS_ITS | Encounter Summary ---
:1950 Author Organization [facility] Address [address] [place] [address] Care Team Providers Name Role Phone Caryn Hayward P.A.-C. Primary Care Provider Encounter Details Date Type Department Care Team Description 10/18/2020 Clinical Communication Department of [facility] Salma Villeda, [facility] BRIAN CMichelleNMichellePMichelle [facility], in [address] [phone] Social History Tobacco Use Types [...] this encounter Miscellaneous Notes Telephone Encounter - Jj Carter V., C.M.AMichelle - 10/19/2020 8:46 AM CDT SUBJECTIVE CHIEF COMPLAINT / REASON FOR CALL No chief complaint on file. Information Discussed Contacted the patient and notified them that their [facility] PLAN Disposition/Recommendation: recommended continue engagement in self-management activities Information/Education: patient/caller able to teach back Caller agreeable to plan of care: yes The following references were used: provider Salma Villeda APRN Telephone Encounter - Salma Villeda APRN, C.N.P. - 10/18/2020 5:09 PM CDT Please notify the patient that I gave him a one month refill of the lorazepam. He needs to follow upwith Psychiatry as I will not refill this medication again. If he is interested in establishing a taper plan, please follow-up in the clinic. I would be happy to see him. Thank you! Telephone Encounter - Bailey Spence - 10/18/2020 11:05 AM CDT Patient called asking for a refill on Lorazepam 1 mg. Patient has not scheduled with Psychiatry and does not seem like he is going to. Patient states theyask too many questions. Patient states he is out of Lorazepam and would like something for his anxiety. documented in this encounter Plan of Treatment Upcoming Encounters Date Type Specialty Care Team Description 04/23/2022 Office Visit Cardiovascular Disease Blas Peck M.D. [address] [place] [address] [place], [place] [phone] (Wo rk) documented as of this encounter Visit Diagnoses Not on filedocumented in this encounter Additional Health Concerns Assessment Noted Time PHQ-9 Depression Total Score: 1 10/31/2019 2:00 PM CDT documented as of this encounter Care Teams Petrography Teacher Relationship Specialty Start Date End Date Caryn Hayward P.A.-C. PCP - General 07/25/20 09/19/21 [address] [place] [phone] documented as of this encounter
--- OUTSIDE RECORDS SUMMARY | 2022-02-17 12:15 | XMS_ITS | Encounter Summary ---
:1950 Author Organization [facility] Address [address] [place] [address] Care Team Providers Name Role Phone Caryn Hayward P.A.-C. Primary Care Provider Reason for Referral Outpatient (Routine) - Closed Specialty Diagnoses / Procedures Referred By Contact Refer red To Contact Diagnoses Pain Right Lower Quadrant Pain Left Lower Quadrant Salma Villeda APRN, C.N.P. [facility] Procedures US Abdomen Complete Referral ID Status Reason Start Date Expiration Date Visits Requ ested Visits Authorized [id number] Closed 10/10/2020 10/10/2021 1 1 Reason for Visit Outpatient (Routine) - Closed Specialty Diagnoses / Procedures Referred By Contact Refer red To Contact Diagnoses Pain Right Lower Quadrant Pain Left Lower Quadrant Salma Villeda APRN, C.N.P. [facility] [place] Region Procedures US Abdomen Complete Referral ID Status Reason Start Date Expiration Date Visits Requ ested Visits Authorized [id number] Closed 10/10/2020 10/10/2021 1 1 Encounter Details Date Type Department Care Team Description 10/17/2020 Hospital Encounter Department of Salma Villeda, Juanita Ri ght Lower Quadrant; Radiology in [place], C.N.P. Pain Left Lower Quadrant [place], [place] [address] [place] [address] Social History Tobacco Use Types Packs/Day Years [...] is covered by insurance. Dx:E11.9 blood-glucose meter [facility] [place]pense glucose 1 each 0 10/25 meter, [...] syringe-needle 1 Injection daily. 100 Syringe 3 12/1 07/2019 03/29/2021 U-100 0.3 mL 31 gauge x 15/64 [...] (DITROPAN-XL) Take 10 mg by mouth 0 11/20/2020 10 mg 24 hr tablet at [...] Team Description 04/23/2022 Office Visit Cardiovascular Disease lBas Peck M.D. [address] [place] [address] [phone] (Wo rk) documented as of this encounter Procedures Procedure Name Priority Date/Time Associated Comments Diagnosis US ABDOMEN RAD - Routine 10/17/2020 3:25 Pain Right Lower Results for this COMPLETE (most inpatients PM CDT Quadrant procedure are in and all Pain Left Lower the results outpatients) Quadrant section. documented in this encounter Results US Abdomen Complete (10/17/2020 3:25 PM CDT) Anatomical Region Laterality Modality Abdomen, Ultrasound RST LOS, Ultrasound ARZ LOS, Ultrasound FLA N/A Ultrasound LOS Specimen (Source) Anatomical Collection Method Collection Time Re ceived Time Location / / Volume Laterality 10/17/2020 3:43 PM CDT Impressions 10/17/2020 3:51 PM CDT 1. Increased hepatic parenchymal echogenicity consistent with fatty infiltration. 2. The gallbladder is surgically absent. 3. 2.3 cm cyst in the upper pole of the right kidney and 1.8 cm cyst in the upper pole of the left kidney. 4. The pancreas and inferior vena cava a re partially obscured by overlying bowel gas. Narrative 10/17/2020 3:51 PM CDT EXAM: US ABDOMEN COMPLETE COMPARISON: MR abdomen 11/14/2019 FINDINGS: Liver: Diffuse increased echogenicity co nsistent with hepatic steatosis. Gallbladder: Cholecystectomy. Intrahepatic ducts: Not dilated. Common duct: Not dilated. 5.6 mm diamete r. Pancreas: Not seen due to overlying fabian l gas. Right kidney: ?? Length: 10.6 cm. There is a 2.3 x 2.3 x 2.2 cm cyst in the upper pole of the right kidney. Normal echogenicity. No hy dronephrosis. Left kidney: ?? Length: 11.4 cm. There is a cyst in the upper pole of the left kidney measuring 1.8 x 1.7 x 1.7 cm. Normal echogenicity. No hydronephrosis. Spleen: Normal. ??Spleen length: 12.7 cm Aorta: Normal caliber. IVC: Normal where seen. Partially obscur ed by overlying bowel gas. Ascites: ??None. Procedure Note Rodri Bennett M.D. - 10/17/2020Format ting of this note might be different from the original. EXAM: US ABDOMEN COMPLETE COMPARISON: MR abdomen 11/14/2019 FINDINGS: Liver: Diffuse increased echogenicity co nsistent with hepatic steatosis. Gallbladder: Cholecystectomy. Intrahepatic ducts: Not dilated. Common duct: Not dilated. 5.6 mm diamete r. Pancreas: Not seen due to overlying fabian l gas. Right kidney: Length: 10.6 cm. There is a 2.3 x 2.3 x 2.2 cm cyst in the upper pole of the right kidney. Normal echogenicity. No hy dronephrosis. Left kidney: Length: 11.4 cm. There is a cyst in the upper pole of the left kidney measuring 1.8 x 1.7 x 1.7 cm. Normal echogenicity. No hydronephrosis. Spleen: Normal. Spleen length: 12.7 cm Aorta: Normal caliber. IVC: Normal where seen. Partially obscur ed by overlying bowel gas. Ascites: None. IMPRESSION: 1. Increased hepatic parenchymal echogen icity consistent with fatty infiltration. 2. The gallbladder is surgically absent. 3. 2.3 cm cyst in the upper pole of the right kidney and 1.8 cm cyst in the upper pole of the left kidney. 4. The pancreas and inferior vena cava a re partially obscured by overlying bowel gas. Salma Villeda APRN C.N.PM[facility]helle IMG US PROCEDURES documented in this encounter Visit Diagnoses Diagnosis Pain Right Lower Quadrant Pain Left Lower Quadrant documented in this encounter Additional Health Concerns Assessment Noted Time PHQ-9 Depression Total Score: 1 10/31/2019 2:00 PM CDT documented as of this encounter Care Teams [employer] Relationship Specialty Start Date End Date Caryn Hayward P.A.-C. PCP - General 07/25/20 09/19/[address] [id number] documented as of this encounter
--- OUTSIDE RECORDS SUMMARY | 2022-02-17 12:15 | XMS_ITS | Encounter Summary ---
:1950 Author Organization [facility] Address [address] [place] [address] Care Team Providers Name Role Phone Caryn Hayward P.A.-C. Primary Care Provider Reason for Referral Outpatient (Routine) - Closed Specialty Diagnoses / Procedures Referred By Contact Refer red To Contact Family Medicine Salma Villeda APRN, C.N.P. [facility] Region Referral ID Status Reason Start Date Expiration Date Visits Requ ested Visits Authorized [id number] Closed 10/10/2020 10/10/2021 1 1 Scheduling Instructions Please schedule with PCP in three months . Outpatient (Routine) - Closed Specialty Diagnoses / Procedures Referred By Contact Refer red To Contact Diagnoses Pain Right Lower Quadrant Pain Left Lower Quadrant Salma Villeda APRN, C.N.P. [facility] Region Procedures US Abdomen Complete Referral ID Status Reason Start Date Expiration Date Visits Requ ested Visits Authorized [id number] Closed 10/10/2020 10/10/2021 1 1 Reason for Visit Reason Comments Follow-up review labs. Appointment Request (Routine) - Closed Specialty Diagnoses / Procedures Referred By Contact Refer red To Contact Family Medicine Referral ID Status Reason Start Date Expiration Date Visits Requ ested Visits Authorized [id number] Closed 10/02/2020 10/02/2021 1 1 Encounter Details Date Type Department Care Team Description 10/10/2020 Office Visit Department of [facility] Salma Villeda, Colette es Mellitus Type 2 With Diabetic Neuropathy Hyperglycemic (HCC) (Primary Dx); Medicine, [place] BRIAN, C.N.P. Hyperten sive Heart And Chronic Kidney Disease Without Heart Failure And With Stage 2 (Mild) Chronic Kidney Disease; Clinic, in [place], [facility] Generalized Disorder; [place] Hyperlipidemia; [address] Pain Right Lower Quadrant; [place] Pain Left [place] [id number] Social History Tobacco Use Types Packs/Day [...] Sign Reading Time Taken Comments Blood Pressure 111/66 10/10/2020 10:54 AM CDT Pulse 81 10/10/2020 10:54 AM CDT Temperature 37.4 ??C (99.4 ??F) 10/10/2020 10:54 AM CDT Respiratory Rate 16 10/10/2020 10:54 AM CDT Oxygen Saturation - - Inhaled Oxygen Concentration - - Weight 93.8 kg (206 lb 12.7 oz) 10/10/2020 10:54 AM CDT Height 167.6 cm (5' 6) 10/10/2020 10:54 AM CDT Body Mass Index 33.38 10/10/2020 10:54 AM CDT documented in this encounter Patient Instructions Patient InstructionsSalma Villeda APRN, C.N.P. - 10/10/2020 11:00 AM CDT Daily healthy habits: A diet rich with fruits and vegetables, 150 minutes a week of moderate aerobicintensity activity, avoiding tobacco, limited alcohol intake, and stress management. Repeat labs in 3 months with a provider visit. documented in this encounter Progress Notes Salma Villeda APRN, C.N.Hugh. - 10/10/2020 11:00 AM CDT SUBJECTIVE CHIEF COMPLAINT/REASON FOR VISIT Chief Complaint Patient presents with ??? Follow-up review labs. HISTORY OF PRESENT ILLNESS Elvis Dawkins is a pleasant 70 y.o. male who presents to the clinic today for evaluation of abdominal pain and for diabetes management. Elvis was formerly a patient of [facility] and states his PCP is no longer with the practice. He was recently being seen at [facility] and states he would like to transfer his care back to [facility]. He has a past medical history of type 2 diabetes with neuropathy, coronary artery disease, hyperlipidemia, hypertension, chronic kidneydisease, chronic abdominal pain, BPH, chronic prostatitis, and generalized anxiety. Patient had lab work completed prior to the visit which reveals an A1c of 7.1 and an elevated albumin/creatinine ratio. Home blood sugars have been primarily 120-180. Tolerating Trulicity and Lantus well without any side effects. Denies episodes of hypoglycemia. He recently had a vision exam. Patient has a history of generalized anxiety. He is currently taking venlafaxine 150 mg daily and ativan 2 mg daily. He reports a history of panic episodes and states that he was initially prescribed lorazepam to be used as needed but he has titrated up to 2 mg daily. Patient states he has tried several other medications in the past that did not control his symptoms, including alprazolam, sertraline,buspirone, fluoxetine. He is not in psychotherapy and states he is not interested in speaking with atherapist. Patient would like to discuss abdominal pain today. Patient states he has a longstanding history of abdominal pain. He had a CT and MRI of the abdomen one year ago which were essentially unremarkable for any cause of the pain. Patient states the abdominal pain has been intermittently better and worse for many years. In the last few months it has bothered him more. At times the pain is relieved after he has a bowel movement. He uses Miralax and Metamucil daily. He is unable to fully describe the intensity or characteristics of the pain. Most recent colonoscopy in 2019 showed multiple small to mediumpolyps throughout the colon. Patient does have a history of bladder pain, BPH, and chronic prostatitis and wonders if these conditions exacerbate his abdominal pain. He is sexually active with a new female partner in the last few months and doubts risk for STIs. He denies diarrhea, blood in the stool,nausea, vomiting, fever/chills, fatigue. CURRENT MEDICATIONS Current Outpatient Medications Medication Sig Dispense Refill ??? aspirin [address] tablet Take 1 tablet (81 mg total) by mouth daily. ??? atorvastatin (LIPITOR) 20 mg tablet Take 1 tablet (20 mg total) by mouth at bedtime. 90 tablet 1 ??? blood sugar diagnostic (glucose blood) strips 3 test daily. Whatever is covered by insurance. Dx:E11.9 300 strip 11 ??? blood-glucose meter [facility] [place] Dispense glucose meter, test strips, lancing device, and lancets covered by the patient insurance. Test 3 times per day. Dx: E11.40, E11.65 1 each 0 ??? CONTOUR TEST STRIPS strips USE ONE STRIP TO CHECK GLUCOSE ONCE DAILY BEFORE BREAKFAST 100 strip 4 ??? dulaglutide (Trulicity) 1.5 mg/0.5 mL pen injector injection Inject 0.5 mL (1.5 mg total) under the skin every 7 (seven) days. 2 mL 11 ??? ibuprofen (ADVIL,MOTRIN) 200 mg tablet Take 400 mg by mouth as needed. ??? insulin syringe-needle U-100 0.3 mL 31 gauge x 15/64 syringe 1 Injection daily. 100 Syringe 3 ??? lancets Check sugar 3 times daily before meals 300 each 3 ??? Lantus U-100 Insulin 100 unit/mL injection Inject 23 Units under the skin daily with dinner. 20 mL 3 ??? lisinopril (PRINIVIL,ZESTRIL) 2.5 mg tablet TAKE 1 TABLET BY MOUTH IN THE MORNING 90 tablet 3 ??? LORazepam (ATIVAN) 1 mg tablet Take 1 tablet (1 mg total) by mouth 2 (two) times a day as neededfor anxiety. 60 tablet 0 ??? metoprolol tartrate (LOPRESSOR) 25 mg tablet Take 1 tablet by mouth twice daily 180 tablet 3 ??? nitroglycerin (NITROSTAT) 0.[address] 1 tablet (0.4 mg total) under the tongue every 5 (five) minutes as needed for chest pain. 25 tablet 0 ??? oxybutynin (DITROPAN-XL) 10 mg 24 hr tablet Take 10 mg by mouth at bedtime. ??? polyethylene glycol (for_MIRALAX) 17 gram powder packet Take 17 g by mouth daily. ??? PSYLLIUM HUSK (METAMUCIL ORAL) Take 1.7 g by mouth at bedtime. ??? tamsulosin (FLOMAX) 0.4 mg 24 hr capsule Take 1 capsule (0.4 mg total) by mouth daily. 90 capsule 3 ??? venlafaxine XR (EFFEXOR-XR) 150 mg 24 hr capsule Take 1 capsule (150 mg total) by mouth daily. 90 capsule 0 No current facility-administered medications for this visit. ALLERGIES/CONTRAINDICATIONS Allergies Allergen Reactions ??? Sulfamethoxazole-Trimethoprim Swelling ??? Sertraline Other (see comments) REVIEW OF SYSTEMS Gastrointestinal: Positive for abdominal (belly) pain or cramping and constipation. Neurological: Positive for numbness or shooting pain in hands, arms, legs, or feet. All other systems reviewed and are negative. MEDICAL HISTORY Past Medical History: Diagnosis Date ??? Anxiety 01/03/2016 ??? Apnea Sleep Obstructive 08/28/2016 ??? Benign Prostatic Hyperplasia Hypertrophy With Obstruction 01/03/2016 ??? Body Mass Index 34.0 To 34.9 Adult 01/03/2016 ??? Callus [place] Foot 04/25/2016 ??? Congestion Nasal 01/03/2016 ??? Constipation 04/11/2015 ??? Coronary Artery Disease (Unspecified) 01/03/2016 ??? Diabetes Mellitus Type 2 With Diabetic Neuropathy (HCC) 01/03/2016 ??? Diverticulosis Colon 04/25/2016 ??? Dysuria 10/27/2017 ??? Hay Fever 01/03/2016 ??? Hernia Inguinal Left 12/10/2017 ??? Hyperlipidemia 01/03/2016 ??? 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 Hyponatremia 11/12/2015 ??? Hyponatremia 11/12/2015 ??? Irritable Bowel Syndrome With Constipation 01/03/2016 ??? Numbness 01/03/2016 ??? Overactive Bladder 03/26/2016 ??? Pain Penis 10/27/2017 ??? Panic Disorder Episodic Paroxysmal Anxiety 01/03/2016 ??? Paraphimosis 10/27/2017 ??? Polyp Colon Adenomatous 02/05/2016 ??? Primary Osteoarthritis Hip Bilateral 08/29/2016 ??? Primary Osteoarthritis Knee Bilateral 12/23/2016 ??? Retention Urinary Chronic 02/14/2016 ??? Rhinitis Allergic 01/03/2016 ??? Spasm Bladder 03/26/2016 ??? Urgency Urinary 05/28/2017 SURGICAL HISTORY Past Surgical History: Procedure Laterality Date ??? CHOLECYSTECTOMY ??? COLON BIOPSY 06/28/2018 Adenomatous colonic polyps with Dr. Colby tidwell advised for 3 years ??? COLONOSCOPY 07/27/2015 Four colon polyps. Repeat in 3 years. [facility]. ??? COLONOSCOPY W/ POLYPECTOMY 05/11/[address]. Dr. Marito davis prep, quality poor. Repeat in 1yr due to poor prep. ??? CORONARY ARTERY BYPASS GRAFTS X 4 05/28/2014 ??? INGUINAL HERNIA REPAIR Bilateral OBJECTIVE VITAL SIGNS BP 111/66 (BP Location: Left arm, Patient Position: Sitting, Cuff Size: Regular) Pulse 81 Temp 37.4 ??C (Temporal) Resp 16 Ht 167.6 cm Wt 93.8 kg BMI 33.38 kg/m?? PHYSICAL EXAMINATION General: Alert 70-year-old male in no acute distress, nontoxic in appearance, well dressed, normal hygiene. HEENT: Head normocephalic, atraumatic, pupils equal round react to light, EOM intact. Neck: Supple. No lymphadenopathy. Cardiovascular: Regular rate, rhythm, S1, S2. No murmur. No edema. Respiratory: Lungs clear to auscultation in the anterior and posterior chest, easy Respirations. Nonlabored breathing. GI: Abdomen is rounded and soft. Active bowel sound in all 4 quadrants. No pain to light or deep palpation. No palpable masses. Neurologic: Alert, oriented, steady gait. Extremities: Warm, pink, dry. DIAGNOSTICS: Orders Placed This Encounter Procedures ??? Chlamydia / Gonorrhoeae Amplified RNA ??? US Abdomen Complete ??? Lipid Panel ??? Glucose, Fasting ??? Hemoglobin A1c ??? Urinalysis with Microscopic: Urine, Midstream ??? Psychiatry and Psychology - Anxiety consult (clinic) ??? Family Medicine office visit (clinic) ASSESSMENT / PLAN #1 Diabetes Mellitus Type 2 With Diabetic Neuropathy Hyperglycemic (HCC) Overview: Maintained on Trulicity and Lantus Assessment & Plan: A1c continues to be above goal. We discussed pharmalogical strategies for controlling diabetes. Patient will increase his Lantus by 3 units a day for a total of 23 units daily. Follow up in the clinic in 3 months for labs and a diabetes management. Albumin/creatinine ratio is elevated. Patient is on an JOLYNN. Kidney function will be redrawn at his next visit. Education: Recommend a consistent carbohydrate diet and at least 30 minutes of daily physical activity. Standard diabetes management includes: Hemoglobin A1c checked every 3 months (every 6 months if A1c is within target range); urine checked for microalbumin annually; annual dilated eye exam to screen for diabetic retinopathy; meticulous foot care; and smoking cessation. Your goal blood pressure less than 130/80. You should be on statin therapy and have an annual lipid profile. - BMP; Future; Expected date: 01/10/2021 - Hemoglobin A1c; Future; Expected date: 01/10/2021 - Lantus U-100 Insulin 100 unit/mL injection; Inject 23 Units under the skin daily with dinner., Starting Thu10/10/2020, Normal - Family Medicine office visit (clinic); Future; Expected date: 01/10/2021 #2 Hypertensive Heart And Chronic Kidney Disease Without Heart Failure And With Stage 2 (Mild) Chronic Kidney Disease Assessment & Plan: Stable without any complaints of chest pain. Patient has not needed to use his nitroglycerin howeverhis prescription is . Nitroglycerin reordered today. Blood pressure is well controlled on lisinopril and metoprolol. Continue with daily low-dose aspirin. Follow up with the echocardiogram and Cariology consult as scheduled in 2020. - nitroglycerin (NITROSTAT) 0.4 mg SL tablet; Place 1 tablet (0.4 mg total) under the tongue every 5 (five) minutes as needed for chest pain., Starting Thu10/10/2020, Normal #3 Anxiety Generalized Disorder Overview: Managed on Effexor and Ativan 2 mg daily. Assessment & Plan: Reports his symptoms of anxiety are well controlled. He has a history of panic episodes and has titrated up to 2 mg lorazepam daily. PDMP reviewed. Lorazepam #60 was last refilled one month ago. We hada lengthy conversation regarding benzodiazepines and their risks. Recommended we establish a plan totaper off lorazepam. Patient is not interested in tapering off this medication. He is agreeable to aconsult with psychiatry to further discuss medication options for anxiety and panic. - Psychiatry and Psychology - Anxiety consult (clinic); Future; Expected date: 10/10/2020 #4 Hyperlipidemia Overview: Maintained on Lipitor Assessment & Plan: LDL was within goal when last checked in October 2019. Continue with current dose of Lipitor. Repeat lipid panel ordered to be drawn prior to his next visit. - Lipid Panel; Future; Expected date: 01/10/2021 #5 Pain Right Lower Quadrant #6 Pain Left Lower Quadrant Assessment & Plan: Acute on chronic abdominal pain in the last 3 months. Unremarkable abdominal imaging one year ago. Abdominal US ordered today. Given his history, a urinalysis and screen for Chlamydia / Gonorrhoeae also ordered today. Encouraged patient to continue his current bowel regimen and increase dietary fiber and water intake. - Urinalysis with Microscopic: Urine, Midstream; Future; Expected date: 10/10/2020 - US Abdomen Complete; Future; Expected date: 10/10/2020 - Chlamydia / Gonorrhoeae Amplified RNA; Future; Expected date: 10/10/2020 documented in this encounter Plan of Treatment Upcoming Encounters Date Type Specialty Care Team Description 04/23/2022 Office Visit Cardiovascular Disease Blas Peck M.D. [address] [place] [address] [phone] (Wo rk) Scheduled Referrals Name Type Priority Associated Diagnoses Order S [facility] Family Medicine Outpatient Referral Routine Expec eloisa: office visit 01/10/2021 (clinic) (Approximate), Expires: 10/11/2023 documented as of this encounter Results (ABNORMAL) Basic Metabolic Panel (01/11/2021 9:42 AM CDT) P athologist Signature Potassium, P 4.9 3.6 - 5.2 01/11/2021 [place] mmol/L 1:52 PM CDT Comment: Testing performed on serum Sodium, P 137 135 - 145 mmol/L 01/11/2021 1:52 PM CDT [place] Chloride, P 100 98 - 107 mmol/L 01/11/2021 1:52 PM CDT [place] Bicarbonate, P 28 22 - 29 mmol/L 01/11/2021 1:52 PM C DT [place] Anion Gap, P 9 7 - 15 01/11/2021 1:52 PM CDT [place] BUN (Blood Urea Nitrogen), P 15 8 - 24 mg/dL 01/12/20 1:52 PM CDT [place] Creatinine 1.29 0.74 - 1.35 mg/dL 01/11/2021 1:52 PM CD T [place] eGFR-Black/ 65 >=60 mL/min/BSA 2020 1:52 PM CDT [place] Comment: ----ADDITIONAL INFORMATION---- Estimated GFR calculated using the 2009 CKD_EPI creatinine equation. eGFR Non-Black/ 56 (L) >=60 mL/min/BSA 01/11/2021 1:52 PM CDT [place] Comment: ----ADDITIONAL INFORMATION---- Estimated GFR calculated using the 2009 CKD_EPI creatinine equation. Calcium, Total, P 10.5 (H) 8.8 - 10.2 mg/dL 01/11/2021 1:52 PM CDT [place] Glucose, P 147 (H) 70 - 140 mg/dL 01/11/2021 1:52 PM CDT O ALEXYS Specimen Anatomical Collection Method Collection Time Receive d Time (Source) Location / / Volume Laterality Blood (Blood, 01/11/2021 9:42 AM 01/12/20 1:15 Venous) CDT PM CDT Salma Villeda APRN, C.N.P. LAB BLOOD ADD-ON Performing Organization Address City/State/ZIP Code Phon e Number [facility]- [address] [place] [address] [facility] [place] [facility] [place] [address] System in [place] [address] (ABNORMAL) Hemoglobin A1c (01/11/2021 9:42 AM CDT) athologist Signature Hemoglobin A1c, 7.0 (H) 4.2 - 5.6 01/11/2021 [place] B % 11:06 AM CDT Comment: Hemoglobin A1c values greater than or eq ual to 6.5 percent are diagnostic for diabetes mellitus. ?? Diagnosis should be confirmed by repeat testing. ??In diabet ic patients, HbA1c goals should be discussed with healthcar e provider. Specimen Anatomical Collection Method Collection Time Receive d Time (Source) Location / / Volume Laterality Blood (Blood, 01/11/2021 9:42 AM 01/12/20 21 Venous) CDT 10:34 AM CDT Salma Villeda APRN CMichelleNMichellePMichelle LAB BLOOD ADD-ON Performing Organization Address City/State/ZIP Code Phon e Number [facility]- [address] [place] [address] [place] [address] System in [place] [address] [facility] Lipid Panel (01/11/2021 9:42 AM CDT) athologist Signature Cholesterol, 130 mg/dL 01/11/2021 [place] Total 1:52 PM CDT Comment: Testing performed on serum ----REFERENCE VALUE---- Desirable: < 200 Borderline high: 200 - 239 High: > or = 240 Triglycerides 80 mg/dL 01/11/2021 1:52 PM CDT [place] T Comment: ----REFERENCE VALUE---- Normal: <150 Borderline high: 150-199 High: 200-499 Very high: > or =500 Cholesterol, HDL 43 >=40 mg/dL 01/11/2021 1:52 PM CDT [place] Calculated LDL 71 mg/dL 01/11/2021 1:52 PM CDT [place] Comment: ----REFERENCE VALUE---- Desirable: <100 mg/dL Above Desirable: 100-129 mg/dL Borderline High: 130-159 mg/dL High: 160-189 mg/dL Very High: >=190 mg/dL Cholesterol, Non-HDL, Calculated 87 mg/dL 021 1:52 PM CDT [facility] Comment: ----REFERENCE VALUE---- Desirable: <130 Above Desirable: 130-159 Borderline high: 160-189 High: 190-219 Very high: > or =220 Specimen Anatomical Collection Method Collection Time Receive d Time (Source) Location / / Volume Laterality Blood (Blood, 01/11/2021 9:42 AM 01/12/20 1:15 Venous) CDT PM CDT Cooper Hartmann APRNNRah LAB BLOOD ADD-ON Performing Organization Address City/State/ZIP Code Phon e Number [facility] [address] [place] [address] [facility] [place] [address] System in [place] [address] [facility] US Abdomen Complete (10/17/2020 3:25 PM CDT) [...] obscured by overlying bowel gas. Salma Villeda APRN, C.N.P. IMG US PROCEDURES Chlamydia / Gonorrhoeae Amplified RNA (10/10/2020 12:22 PM CDT) [facility] Method Time Signature Source Urine, 10/11/2020 [facility] Urine, First 1:44 AM CDT Voided Chlamydia Negative Negative 10/11/2020 [facility] trachomatis 1:44 AM CDT amplified RNA Source Urine, 10/11/2020 [facility] Urine, First 1:44 AM CDT Voided Neisseria Negative Negative 10/11/2020 [facility] gonorrhoeae 1:44 AM CDT amplified RNA Specimen Anatomical Collection Method Collection Time Receive d Time (Source) Location / / Volume Laterality Varies (Urine, 10/10/2020 12:22 7:12 First Voided) PM CDT PM CDT Salma Villeda APRN, C.N.P. LAB MICROBIOLOGY - GENERAL O RDERABLES Performing Organization Address City/State/ZIP Code Phon e Number [facility]- [facility] [place] [address] [place] [address] System in [place] [address] [place] [address] (ABNORMAL) Urinalysis with Microscopic: Urine, Midstream (10/10/2020 12:22 PM CDT) P athologist Signature Source Midstream 10/10/2020 FB60 1:17 [...] 8.0 10/10/2020 1:30 PM CDT FB60 Specific [place] 1.015 1.001 - 1.035 10/10/2020 1:30 PM [...] 10/10/2020 1:02 Midstream) PM CDT PM CDT Cooper Hartmann APRNNRah LAB URINE ORDERABLES Performing Organization Address City/State/ZIP Code Phon e Number [place] [address] [place] [address] [facility] [place] [address] [address] documented in this encounter Visit Diagnoses Diagnosis 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 Hyperglycemic (HCC) - Primary Hypertensive Heart And Chronic Kidney Di sease Without Heart Failure And With Stage 2 (Mild) Chronic Kidney Disease Anxiety Generalized Disorder Hyperlipidemia Pain Right Lower Quadrant Pain Left Lower Quadrant Pain Right Lower Quadrant Pain Left Lower Quadrant documented in this encounter Additional Health Concerns Assessment Noted Time PHQ-9 Depression Total Score: 1 10/31/2019 2:00 PM CDT documented as of this encounter 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 PCP - General 07/25/20 09/19/[address] [phone] documented as of this encounter
--- OUTSIDE RECORDS SUMMARY | 2022-02-17 12:15 | XMS_ITS | Encounter Summary ---
:1950 Author Organization [facility] Address [address] [place] [address] Care Team Providers Name Role Phone Caryn Hayward P.A.-C. Primary Care Provider Reason for Referral Outpatient (Routine) - Closed Specialty Diagnoses / Procedures Referred By Contact Refer red To Contact Cardiovascular Disease Trevor Hicks [facility] BRIAN, C.N.P. [address] [place] [address] Referral ID Status Reason Start Date Expiration Date Visits Requ ested Visits Authorized [id number] Closed 12/24/2020 12/24/2021 1 1 Reason for Visit Reason Comments Annual Exam follow up on echo Outpatient (Routine) - Closed Specialty Diagnoses / Procedures Referred By Contact Refer red To Contact Cardiovascular Disease Blas Peck [facility].Michelle [address] [place] [address] Referral ID Status Reason Start Date Expiration Date Visits Requ ested Visits Authorized [id number] Closed 12/07/2019 12/06/2020 1 1 Encounter Details Date Type Department Care Team Description 12/24/2020 Office Visit Department of Trevor Hicks Coronary Arter y Disease Without Angina Pectoris (Primary Dx); Cardiovascular Diseases C, CLIENT FINANCE ANALYST, Stefan tyler Arterial Bypass Graft Status Post Personal History; in [facility] pratik C.N.P. Apnea Sleep Obstructive; [address] Hypertensive Heart And Chron ic Kidney Disease Without Heart Failure And With Stage 2 (Mild) Chronic Kidney Disease; [place] [address] [address] Hyperlipidemia; [phone] [place] Obesity Body Ma ss Index 30-39.9 Adult; [address] Diabetes Mellitus Type 2 Without Complic ation ([facility]) Social History Tobacco Use Types Packs/Day Years [...] Sign Reading Time Taken Comments Blood Pressure 111/70 12/24/2020 11:10 AM CDT Pulse 75 12/24/2020 11:10 AM CDT Temperature - - Respiratory Rate - - Oxygen Saturation 98% 12/24/2020 11:10 AM CDT Inhaled Oxygen Concentration - - Weight 94 kg (207 lb 3.7 oz) 12/24/2020 11:10 AM CDT Height - - Body Mass Index 33.45 10/10/2020 10:54 AM CDT documented in this encounter Progress Notes Trevor Hicks, BRIAN, C.N.P. - 12/24/2020 11:15 AM CDT SUBJECTIVE CHIEF COMPLAINT/REASON FOR VISIT Follow-up heart disease. HISTORY OF PRESENT ILLNESS Elvis Dawkins is seen today to follow-up on his underlying heart disease. This is my 1st timemeeting him, he last was evaluated by Dr. Peck a year ago in November of 2019. He has a history ofcoronary artery disease and is status post CABG x4 in [facility] in 2014. His echocardiogram has shown an inferior and inferolateral fixed defects. He has had a preserved ejection fraction along with multifactorial exertional dyspnea, hypertension, hyperlipidemia, obesity, obstructive sleep apnea (not on CPAP), tobacco use (pipe smoking) and history depression/anxiety. He tells me that he has been doing well since his visit a year ago. He has lost some weight and tries to remain active. Since losing some weight he tells me that his shortness of breath has been better. He has not had any chest pains and denies any PND, orthopnea, palpitations or lower extremity edema. He is tolerating his medications well without side effects. He tells me he is in the process of establishing with a new primary wound care specialist. CURRENT MEDICATIONS Current Outpatient Medications: ??? aspirin [address] tablet, Take 1 tablet (81 mg total) by mouth daily., Disp: , Rfl: ??? atorvastatin (LIPITOR) 20 mg tablet, TAKE 1 TABLET(20 MG) BY MOUTH AT BEDTIME, Disp: 90 tablet, Rfl: 0 ??? blood sugar diagnostic (glucose blood) strips, 3 test daily. Whatever is covered by insurance. Dx:E11.9, Disp: 300 strip, Rfl: 11 ??? blood-glucose meter [facility] [place], Dispense glucose meter, test strips, lancing device, [...] dinner., Disp: 20 mL, Rfl: 3 ??? lisinopril (PRINIVIL,ZESTRIL) 2.5 mg tablet, TAKE 1 TABLET BY MOUTH IN THE MORNING, Disp: 90 tablet, Rfl: 3 ??? LORazepam (ATIVAN) 1 mg tablet, Take 1 tablet (1 mg total) by mouth 2 (two) times a day as needed for anxiety., Disp: 60 tablet, Rfl: 0 ??? metoprolol tartrate (LOPRESSOR) 25 mg tablet, Take 1 tablet by mouth twice daily, Disp: 180 tablet, Rfl: 3 ??? nitroglycerin (NITROSTAT) 0.4 mg SL tablet, Place 1 tablet (0.4 mg total) under the tongue every5 (five) minutes as needed for chest pain., Disp: 25 tablet, Rfl: 0 ??? oxybutynin (DITROPAN-XL) 10 mg 24 hr tablet, TAKE 1 TABLET BY MOUTH AT BEDTIME, Disp: 90 tablet,Rfl: 0 ??? PSYLLIUM HUSK (METAMUCIL ORAL), Take 1.7 g by mouth at bedtime. , Disp: , Rfl: ??? tamsulosin (FLOMAX) 0.4 mg 24 hr capsule, Take 1 capsule (0.4 mg total) by mouth daily., Disp: 90 capsule, Rfl: 3 ??? venlafaxine XR (EFFEXOR-XR) 150 mg 24 hr capsule, Take 1 capsule (150 mg total) by mouth daily.,Disp: 90 capsule, Rfl: 0 ??? polyethylene glycol (for_MIRALAX) 17 gram powder packet, Take 17 g by mouth daily., Disp: , Rfl: ALLERGIES Allergies Allergen Reactions ??? Sulfamethoxazole-Trimethoprim Swelling ??? Sertraline Other (see comments) MEDICAL HISTORY Past Medical History: Diagnosis Date ??? Anxiety 01/03/2016 ??? Apnea Sleep Obstructive 08/28/2016 ??? Benign Prostatic Hyperplasia Hypertrophy With Obstruction 01/03/2016 ??? Body Mass Index 34.0 To 34.9 Adult 01/03/2016 ??? Callus [place] Foot 04/25/2016 ??? Congestion Nasal 01/03/2016 ??? [...] BIOPSY 06/28/2018 Adenomat[address] colonic polyps with Dr. Bowman recheck advised for 3 years ??? COLONOSCOPY 07/27/2015 Four colon polyps. Repeat in 3 years. [facility]. ??? COLONOSCOPY W/ POLYPECTOMY 05/11/[address]/[place]. Dr. Marito davis prep, quality poor. Repeat in 1yr due to poor prep. ??? CORONARY ARTERY BYPASS GRAFTS X 4 05/28/2014 ??? INGUINAL HERNIA REPAIR Bilateral OBJECTIVE VITAL SIGNS BP 111/70 (BP Location: Left arm, Patient Position: Sitting, Cuff Size: Large) Pulse 75 Wt 94 kg SpO2 98% BMI 33.45 kg/m?? PHYSICAL EXAMINATION General: Well-developed male in no acute distress, alert and oriented x 3. Vessels: No JVD. Heart: Regular rate and rhythm. Normal S1-S2. No murmurs. Lungs: Clear bilaterally. No rales or wheezing. Abdomen: Nondistended. Extremities: Warm without pitting edema. DIAGNOSTICS Lab Results Component Value Date CREATININE 1.17 03/12/2020 BUN 14 03/12/2020 NA 135 03/12/2020 KSERUM 5.0 04/12/2019 KPLASMA 4.4 03/12/2020 CL 98 03/12/2020 CO2 27 10/17/2016 Lab Results Component Value Date CHOL 118 11/10/2019 Lab Results Component Value Date HDL 42 11/10/2019 Lab Results Component Value Date LDLCALC 59 11/10/2019 Lab Results Component Value Date TRIG 85 11/10/2019 Lab Results Component Value Date TTLCHOLHDLRT 2.00 07/14/2016 Lab Results Component Value Date HGBA1C 7.1 (H) 10/08/2020 Echocardiogram December 12, 2020 Final Impressions 1. Normal left ventricular chamber size, regional wall motion abnormalities were present (see wall motion graphics), calculated 2-D linear ejection fraction 58 %. 2. Abnormal left ventricular geometry with concentric remodeling (increased wall thickness to cavity ratio), indeterminate filling pressure. 3. Normal right ventricular chamber size, moderately reduced systolic function, unable to detect peak tricuspid regurgitation velocity for pulmonary artery systolic pressure calculation. 4. No hemodynamically significant valvular heart disease. 5. No pericardial effusion. 6. Compared to the report of 02/02/2019 the following changes have occurred: The right ventricular systolic function is slightly worse (by limited visual assessment and by lateral tricuspid annulus tissue Doppler velocity). Side by side images compared. ASSESSMENT / PLAN #1 Coronary Artery Disease Without Angina Pectoris #2 Coronary Arterial Bypass Graft Status Post Personal History He is doing well with regard to his underlying coronary artery disease. He has not had any symptoms that are concerning for repeat ischemic disease over the last year. He has not used any sublingual nitroglycerin. He remains on aspirin and statin therapy. I would recommend additional lifestyle changesby way of increasing physical activity attempting to achieve 150 minutes of moderate intensity exercise weekly. #3 Apnea Sleep Obstructive I reviewed his echocardiogram with him that shows stable cardiac function when compared to his last study a year ago but continued RV abnormalities with a reduced systolic function. He does have underlying sleep apnea which is not being treated and would recommend treatment of his sleep apnea with CPAP as previously suggested by Sleep Medicine. He is not interested in this type of treatment strategy for we will continue to proceed with lifestyle and medical management. 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 #5 Hyperlipidemia He is on statin therapy but his last lipid panel was over a year ago. His LDL was at goal at that time. He can continue with lipid management through primary care and continued statin therapy with his prior bypass and diabetes. Goal LDL less than 70. Lifestyle management recommended as well. #6 Obesity Body Mass Index 30-39.9 Adult He was congratulated on his weight loss and I note that his BMI is still greater than 30. Recommend ongoing efforts at dietary modification and physical activity with continued goals of additional weight loss as he was closer to an ideal body weight. #7 Diabetes Mellitus Type 2 Without Complication (HCC) His A1c was 7.1% and he should continue to work with primary care for diabetes management. Goal A1c consistently less than 7%. PLAN FOR FOLLOW-UP: Recommend follow-up by Cardiology in one year. documented in this encounter Plan of Treatment Upcoming Encounters Date Type Specialty Care Team Description 04/23/2022 Office Visit Cardiovascular Disease Blas Peck M.D. [address] [place] [phone] (Wo rk) Scheduled Referrals Name Type Priority Associated Order Schedule Diagnoses Cardiovascular Disease Outpatient Referral Routine Expected: office visit (clinic) 2021 (Approximate), Expires: 12/25/2023 documented as of this encounter Visit Diagnoses Diagnosis Coronary Artery Disease Without Angina P ectoris - Primary Coronary Arterial Bypass Graft Status Po st Personal History Apnea Sleep Obstructive Hypertensive Heart And Chronic Kidney Di sease Without Heart Failure And With Stage 2 (Mild) Chronic Kidney Disease Hyperlipidemia Obesity Body Mass Index 30-39.9 Adult Diabetes Mellitus Type 2 Without Complic ation (HCC) documented in this encounter Additional Health Concerns Assessment Noted Time PHQ-9 Depression Total Score: 1 10/31/2019 2:00 PM CDT documented as of this encounter Care Teams Typewriter Ribbon Winder Relationship Specialty Start Date End Date Caryn Hayward P.A.-C. PCP - General 07/25/20 09/19/21 [address], [place] [address] documented as of this encounter
--- OUTSIDE RECORDS SUMMARY | 2022-02-17 12:15 | XMS_ITS | Encounter Summary ---
:1950 Author Organization [facility] Address [address] [place] [address] Care Team Providers Name Role Phone Caryn Hayward P.A.-C. Primary Care Provider Encounter Details Date Type Department Care Team Description 10/10/2020 Hospital Encounter Department of Salma Villeda, Pain Ri ght Lower Quadrant; Laboratory Medicine CINDER CRANE OPERATOR CMichelleNMichelleP. Pain Lef t Lower Quadrant in [address] [phone] Social History Tobacco Use Types Packs/Day Years [...] is covered by insurance. Dx:E11.9 blood-glucose meter [facility] [place] Dispense glucose 1 each 0 10/25 meter, [...] Office Visit Cardiovascular Disease Blas Peck M.D. [address] [place] [phone] (Wo rk) documented as of this encounter Procedures Procedure Name Priority Date/Time Associated Diagnosis Comme nts CHLAMYDIA/GONORRHOE Routine 10/10/2020 12:22 PM Pain Right Low er Results for this AE AMPLIFIED RNA CDT Quadrant procedure are in Pain Left Lower the results Quadrant section. documented in this encounter Results Chlamydia / Gonorrhoeae Amplified RNA (10/10/2020 12:22 PM CDT) [facility] gist Method Time Signature Source Urine, 10/11/2020 MKTO [...] 7:12 First Voided) PM CDT PM CDT Cooper Hartmann APRNN.P. LAB MICROBIOLOGY - GENERAL O RDERABLES Performing Organization Address City/State/ZIP Code Phon e Number [facility]- [address] [place] [id number] [place] [address] System in [address] documented in this encounter Visit Diagnoses Diagnosis Pain Right Lower Quadrant Pain Left Lower Quadrant documented in this encounter Additional Health Concerns Assessment Noted Time PHQ-9 Depression Total Score: 1 10/31/2019 2:00 PM CDT documented as of this encounter Care Teams Traffic Engineer Relationship Specialty Start Date End Date Caryn Hayward P.A.-C. PCP - General 07/25/20 09/19/[address] [phone] documented as of this encounter
--- OUTSIDE RECORDS SUMMARY | 2022-02-17 12:15 | XMS_ITS | Encounter Summary ---
:1950 Author Organization [facility] Address [address] [place] [address] Care Team Providers Name Role Phone Caryn Hayward P.A.-C. Primary Care Provider Reason for Referral Outpatient (Routine) - Closed Specialty Diagnoses / Procedures Referred By Contact Refer red To Contact Diagnoses Dyspnea On Exertion Coronary Arterial Bypass Graft Status Post Personal History Blas Peck M.D. [facility] Procedures ECG [address] [place] [address] Referral ID Status Reason Start Date Expiration Date Visits Requ ested Visits Authorized [id number] Closed 12/07/2019 12/06/2020 1 1 Reason for Visit Outpatient (Routine) - Closed Specialty Diagnoses / Procedures Referred By Contact Refer red To Contact Diagnoses Dyspnea On Exertion Coronary Arterial Bypass Graft Status Post Personal History Blas Peck M.[facility]. [facility] Procedures ECG [address] [place] [address] Referral ID Status Reason Start Date Expiration Date Visits Requ ested Visits Authorized [id number] Closed 12/07/2019 12/06/2020 1 1 Encounter Details Date Type Department Care Team Description 12/12/2020 Hospital Encounter Department of Blas Peck ea On Exertion; Laboratory Medicine S, Denise Coronary Arterial Bypass Graft Status Po st Personal History in [address] [facility] [address] [place] [phone] (Work) [phone] Social History Tobacco Use Types Packs/Day Years [...] is covered by insurance. Dx:E11.9 blood-glucose meter [facility] Dispense glucose 1 each 0 10/25 meter, [...] 300 each 3 10/25/2018 daily before meals LORazepam (ATIVAN) 1 mg Take 1 tablet (1 mg 60 tablet 0 11/2020 tablet total) by mouth 2 (two) times a day as needed for anxiety. nitroglycerin Place 1 tablet (0.4 25 tablet 0 10/10/2020 (NITROSTAT) 0.4 mg SL mg total) under the tablet tongue every 5 (five) minutes as needed for chest pain. polyethylene glycol Take 17 g by mouth 0 08/29/19 17 (for_MIRALAX) 17 gram daily. powder packet PSYLLIUM HUSK (METAMUCIL Take 1.7 g by mouth 0 ORAL) at bedtime. atorvastatin (LIPITOR) TAKE 1 TABLET(20 90 tablet 0 021 01/14/2021 20 mg tablet MG) BY MOUTH AT BEDTIME dulaglutide (Trulicity) Inject 0.5 mL (1.5 2 mL 11 10/1301/14/2021 1.5 mg/0.5 mL pen mg total) [...] 2.5 MOUTH IN THE mg tablet MORNING metoprolol tartrate Take 1 tablet by 180 tablet 3 06/21/2019 01/14/2021 (LOPRESSOR) 25 mg tablet mouth twice daily oxybutynin (DITROPAN-XL) TAKE 1 TABLET BY 90 tablet 0 11/2101/14/2021 10 mg 24 hr tablet MOUTH AT BEDTIME tamsulosin (FLOMAX) 0.4 Take 1 capsule (0.4 [...] Visit Cardiovascular Disease Blas Peck M.D. [address] [place] [address] Ave [place] [phone] (Wo rk) documented as of this encounter Procedures Procedure Name Priority Date/Time Associated Diagnosis Comme nts ECG Routine 12/12/2020 1:24 PM Dyspnea On Ex ertion Results for this CDT Coronary Arterial procedure are in the Bypass Graft Status results section. Post Personal History documented in this encounter Results ECG 12 Lead (12/12/2020 1:24 PM CDT) P athologist Signature Ventricular Rate 77 BPM MUSE ECG/Min TN Interval 226 ms MUSE QRSD Interval 120 ms MUSE QT Interval 418 ms MUSE QTC Interval 473 ms MUSE P [place] 28 degrees MUSE R [place] 69 degrees MUSE T Wave [place] 57 degrees MUSE Specimen Anatomical Collection Method Collection Time Receive d Time (Source) Location / / Volume Laterality 12/12/2020 1:24 PM 1:26 CDT PM CDT Impressions MUSE - 12/12/2020 1:26 PM CDT Sinus rhythm with 1st degree A-V block Low voltage QRS Right bundle branch block No previous ECGs available Reviewed by RYLEY Iverson Narrative This result has an attachment that is no t available. Procedure Note Ismael Pugh M.D. - 12/12/2020Formatt ing of this note might be different from the original. IMPRESSION: Sinus rhythm with 1st degree A-V block Low voltage QRS Right bundle branch block No previous ECGs available Reviewed by RYLEY Iverson Blas Peck M.D. ECG ORDERABLES Performing Organization Address City/State/ZIP Code Phon e Number MUSE MUSE NA documented in this encounter Visit Diagnoses Diagnosis Dyspnea On Exertion Coronary Arterial Bypass Graft Status Po st Personal History documented in this encounter Additional Health Concerns Assessment Noted Time PHQ-9 Depression Total Score: 1 10/31/2019 2:00 PM CDT documented as of this encounter Care Teams Marketing Proposal Specialist Relationship Specialty Start Date End Date Caryn Hayward P.A.-C. PCP - General 07/25/20 09/19/[address] [place] [phone] documented as of this encounter
--- OUTSIDE RECORDS SUMMARY | 2022-02-17 12:15 | XMS_ITS | Encounter Summary ---
:1950 Author Organization [facility] Address [address] [place] [address] Care Team Providers Name Role Phone Caryn Hayward P.A.-C. Primary Care Provider Reason for Visit Reason Comments Med Refill Encounter Details Date Type Department Care Team Description 11/06/2020 Refill Department of Family Medicine, Salma Villeda APRN, Med Refill [facility], in [address] [phone] Social History Tobacco Use Types Packs/Day Years [...] Notes Telephone Encounter - Nanda Martin - 11/07/2020 1:54 PM CDT RX just sent to [facility] 10/10 so unlikely he needs another one yet documented in this encounter Plan of Treatment Upcoming Encounters Date Type Specialty Care Team Description 04/23/2022 Office Visit Cardiovascular Disease Blas Peck M.D. [address] [place] [address] [place] [phone] (Wo rk) documented as of this encounter Visit Diagnoses Not on filedocumented in this encounter Additional Health Concerns Assessment Noted Time PHQ-9 Depression Total Score: 1 10/31/2019 2:00 PM CDT documented as of this encounter Care Teams Communications Tower Technician Relationship Specialty Start Date End Date Caryn Hayward P.A.-C. PCP - General 07/25/20 09/19/21 [address], [place] [address] documented as of this encounter
--- OUTSIDE RECORDS SUMMARY | 2022-02-17 12:15 | XMS_ITS | Encounter Summary ---
:1950 Author Organization [facility] Address [address] [place] [address] Care Team Providers Name Role Phone Caryn Hayward P.A.-C. Primary Care Provider Encounter Details Date Type Department Care Team Description 01/11/2021 Hospital Encounter Department of Salma Villeda, Hyperli pidemia; Laboratory Medicine FIELD AGRONOMIST, C.N.P. Diabetes Mellitus Type 2 With Diabetic Neuropathy Hyperglycemic (HCC) in [place] [address] [place] [address] Social History Tobacco Use Types Packs/Day Years [...] is covered by insurance. Dx:E11.9 blood-glucose meter [facility] Dispense glucose 1 each 0 10/25 meter, [...] mouth capsuleIndications: daily. Overactive Bladder venlafaxine XR TAKE 1 CAPSULE(150 90 capsule 3 12/26/2020 (EFFEXOR-XR) 150 mg 24 MG) BY MOUTH DAILY hr capsuleIndications: Anxiety documented as of this encounter Plan of Treatment Upcoming Encounters Date Type Specialty Care Team Description 04/23/2022 Office Visit Cardiovascular Disease Blas Peck M.D. [address] [place], [place] [phone] (Wo rk) documented as of this encounter Procedures Procedure Name Priority Date/Time Associated Diagnosis Comme nts LIPID PANEL, S Routine 01/11/2021 9:42 AM Hyperlipidemia Resul ts for this CDT procedure are i n the results section. HEMOGLOBIN A1C, B Routine 01/11/2021 9:42 AM Diabetes Mellitus Type Results for this CDT 2 With Diabetic procedure ar e in Neuropathy the results Hyperglycemic (HCC) section. BASIC METABOLIC Routine 01/11/2021 9:42 AM Diabetes Mellitus T ype Results for this PANEL, S/P CDT 2 With Diabetic procedure ar e in Neuropathy the results Hyperglycemic (HCC) section. documented in this encounter Results (ABNORMAL) Basic Metabolic Panel [...] >=60 mL/min/BSA 01/11/2021 1:52 PM CDT [place] Comment: ----ADDITIONAL INFORMATION---- Estimated GFR calculated using [...] Organization Address City/State/ZIP Code Phon e Number [facility]- [address] [place] [address] [facility] [place] [address] System in [place] [address] (ABNORMAL) Hemoglobin A1c (01/11/2021 9:42 AM CDT) P athologist Signature Hemoglobin A1c, 7.0 (H) 4.2 [...] Laterality Blood (Blood, 01/11/2021 9:42 AM 01/12/20 Venous) CDT 10:34 AM CDT Salma Vlileda APRN, C.N.P. LAB BLOOD ADD-ON Performing Organization Address City/State/ZIP Code Phon e Number [facility]- [address] [place] [address] [facility] [place] [facility] [address] System in [place] [address] [facility] Lipid Panel (01/11/2021 9:42 AM CDT) P athologist Signature Cholesterol, 130 mg/dL 01/11/2021 [place] [...] 1:15 Venous) CDT PM CDT Cooper Hartmann APRNN.PMichelle LAB BLOOD ADD-ON Performing Organization Address City/State/ZIP Code Phon e Number [facility]- [address] [place] [address] [facility] [place] [facility] [address] System in [place] [address] [facility] documented in this encounter Visit Diagnoses Diagnosis Hyperlipidemia 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 Hyperglycemic (HCC) documented in this encounter Additional Health Concerns Assessment Noted Time PHQ-9 Depression Total Score: 1 10/31/2019 2:00 PM CDT documented as of this encounter Care Teams Prune Washer Relationship Specialty Start Date End Date Caryn Hayward P.A.-C. PCP - General 07/25/20 09/19/212199 [place] [address] documented as of this encounter
--- OUTSIDE RECORDS SUMMARY | 2022-02-17 12:15 | XMS_ITS | Encounter Summary ---
:1950 Author Organization [facility] Address [address] [place] [address] Care Team Providers Name Role Phone Caryn Hayward PMichelleAMichelle-CMichelle Primary Care Provider Reason for Visit Reason Comments Med Refill Encounter Details Date Type Department Care Team Description 12/26/2020 Refill Department of Family Medicine, Caryn Roca P.AMichelle-CMichelle Med Refill [facility], [address] [place] [address] [address] [place] [address] [facility] [phone] Social History Tobacco Use Types Packs/Day Years [...] Visit Cardiovascular Disease Blas Peck M.D. [address] [place] [phone] (Wo rk) documented as of this encounter Visit Diagnoses Diagnosis Anxiety documented in this encounter Additional Health Concerns Assessment Noted Time PHQ-9 Depression Total Score: 1 10/31/2019 2:00 PM CDT documented as of this encounter Care Teams Disability Benefits Specialist Relationship Specialty Start Date End Date Caryn Hayward P.A.-C. PCP - General 07/25/20 09/19/[address] [phone] documented as of this encounter
--- OUTSIDE RECORDS SUMMARY | 2022-02-17 12:15 | XMS_ITS | Encounter Summary ---
:1950 Author Organization [facility] Address [address] [place] [address] Care Team Providers Name Role Phone Caryn Hayward P.A.-C. Primary Care Provider Encounter Details Date Type Department Care Team Description 10/18/2020 Orders Only Department of Family Salma Villeda APRN, Medicine, [facility], C.N.P. in [facility] [address] [place] [address] Social History Tobacco Use Types Packs/Day [...] Visit Cardiovascular Disease Blas Peck M.D. [address] [place], [place] [phone] (Wo rk) documented as of this encounter Visit Diagnoses Not on filedocumented in this encounter Additional Health Concerns Assessment Noted Time PHQ-9 Depression Total Score: 1 10/31/2019 2:00 PM CDT documented as of this encounter Care Teams Heel Sander Rubber Relationship Specialty Start Date End Date Caryn Hayward P.A.-C. PCP - General 07/25/20 09/19/[address] [phone] documented as of this encounter
--- OUTSIDE RECORDS SUMMARY | 2022-02-17 12:15 | XMS_ITS | Encounter Summary ---
:1950 Author Organization [facility] Address [address] [place] [address] Care Team Providers Name Role Phone Caryn HaywardAIshan Primary Care Provider Reason for Visit Reason Comments Med Refill Encounter Details Date Type Department Care Team Description 10/17/2020 Refill Department of Family Medicine, Caryn Roca P.AMichelle-CMichelle Med Refill [facility], [facility], [address] [place] [address] [address] [place] [address] [phone] Social History Tobacco Use Types Packs/Day Years [...] this encounter Miscellaneous Notes Telephone Encounter - Lydia Loja L.P.N. - 10/18/2020 7:43 AM CDT Left message for patient to return call to clinic. Does the patient need to speak to nursing? yes Action needed: inform patient of the message below from Salma Villeda. Telephone Encounter - Salma Villeda APRN, C.NMichelleP. - 10/17/2020 5:06 PM CDT Please call the patient and ask if he has been able to schedule with Psychiatry to further discuss long-term treatment with the benzodiazepine. As we discussed in his visit, I am unwilling to fill his Ativan long-term. Again, I would recommend we taper him off of lorazepam. If he is interested in a taper, please let me know. Thank you Telephone Encounter - Caryn Hayward P.A.-C. - 10/17/2020 4:44 PM CDT It looks like pateint met with Salma Villeda APRN 10/10 and discussed referral to Psychiatry for furthermanagement of Anxiety as he was unwilling to discuss taper of Ativan. I have never seen patient. Salma may be willing to discuss taper while waiting for psych consult. Telephone Encounter - Bhakti Ibrahim C.NAusten - 10/17/2020 2:46 PM CDT Patient presented to the clinic to get a medication refill. Medication: Lorazepam 1mg tablets Frequency: 1 tab BID PRN Patient stated you can leave a detailed message documented in this encounter Plan of Treatment Upcoming Encounters Date Type Specialty Care Team Description 04/23/2022 Office Visit Cardiovascular Disease Blas Peck M.D. [address] [place] [phone] (Wo rk) documented as of this encounter Visit Diagnoses Diagnosis Panic Disorder Episodic Paroxysmal Anxie ty documented in this encounter Additional Health Concerns Assessment Noted Time PHQ-9 Depression Total Score: 1 10/31/2019 2:00 PM CDT documented as of this encounter Care Teams Welt Stitcher Relationship Specialty Start Date End Date Caryn Hayward P.A.-C. PCP - General 07/25/20 09/19/[address] [phone] documented as of this encounter
--- OUTSIDE RECORDS SUMMARY | 2022-02-17 12:15 | XMS_ITS | Encounter Summary ---
:1950 Author Organization [facility] Address [address] [place] [address] Care Team Providers Name Role Phone Caryn Hayward PMichelleAMichelle-CMichelle Primary Care Provider Reason for Visit Reason Comments Med Refill Encounter Details Date Type Department Care Team Description 11/23/2020 Refill Department of Family Medicine, Caryn Roca P.AMichelle-CMichelle Med Refill [facility], [facility], [address] [place] [address] [address] [place] [address] [facility] [phone] Social History Tobacco Use Types Packs/Day Years [...] Office Visit Cardiovascular Disease Blas Peck M.D. [address] [place] [phone] (Wo rk) documented as of this encounter Visit Diagnoses Not on filedocumented in this encounter Additional Health Concerns Assessment Noted Time PHQ-9 Depression Total Score: 1 10/31/2019 2:00 PM CDT documented as of this encounter Care Teams Textile Worker Relationship Specialty Start Date End Date Caryn Hayward P.A.-C. PCP - General 07/25/20 09/19/[address] [phone] documented as of this encounter
--- OUTSIDE RECORDS SUMMARY | 2022-02-17 12:15 | XMS_ITS | Encounter Summary ---
:1950 Author Organization [facility] Address [address] [place] [address] Care Team Providers Name Role Phone Caryn Hayward P.A.-C. Primary Care Provider Encounter Details Date Type Department Care Team Description 12/13/2020 Clinical Communication Department of [facility] Courtney Hayward, Medicine, [facility], [place] [address] [place], [place] [address] [address] [place], [place] [phone] (Work) [phone] Social History Tobacco Use Types Packs/Day Years [...] this encounter Miscellaneous Notes Telephone Encounter - Argentina Gale C.M.A. - 12/18/2020 3:52 PM CDT Informed patient I am unable to see any recent encounters. Informed him Trevor will go over his Echo results at his appointment on 12/24. Telephone Encounter - Marilee Eldridge L.P.N. - 12/14/2020 9:42 AM CDT Unable to see any communications Telephone Encounter - Kendall Shah - 12/13/2020 1:25 PM CDT Reason for Communication: Patient calling back to the nurse. I was unable to reach the nurse. Pleasecall the patient back. Current Can Nursing/Provider leave a detailed message?: Did the patient refuse triage through Nurse line? (for symptom based concerns): Action Needed: Please call the patient back Name of Medication (if relevant): Please send all scheduling replies to scheduling pool. documented in this encounter Plan of Treatment Upcoming Encounters Date Type Specialty Care Team Description 04/23/2022 Office Visit Cardiovascular Disease Blas Peck M.D. [address] [place] [phone] (Wo rk) documented as of this encounter Visit Diagnoses Not on filedocumented in this encounter Additional Health Concerns Assessment Noted Time PHQ-9 Depression Total Score: 1 10/31/2019 2:00 PM CDT documented as of this encounter Care Teams Drivers' Cash Clerk Relationship Specialty Start Date End Date Caryn Hayward P.A.-C. PCP - General 07/25/20 09/19/21 [address], [place] [address] documented as of this encounter
--- OUTSIDE RECORDS SUMMARY | 2022-02-17 12:15 | XMS_ITS | Encounter Summary ---
:1950 Author Organization [facility] Address [address] [place] [address] Care Team Providers Name Role Phone Caryn Hayward P.A.-C. Primary Care Provider Reason for Referral Outpatient (Routine) - Closed Specialty Diagnoses / Procedures Referred By Contact Refer red To Contact Diagnoses Dyspnea On Exertion Coronary Arterial Bypass Graft Status Post Personal History Blas Peck M.D. [facility] Region Procedures Echo Transthoracic (TTE) [address] [place] [address] Referral ID Status Reason Start Date Expiration Date Visits Requ ested Visits Authorized [id number] Closed 12/07/2019 12/06/2020 1 1 Reason for Visit Outpatient (Routine) - Closed Specialty Diagnoses / Procedures Referred By Contact Refer red To Contact Diagnoses Dyspnea On Exertion Coronary Arterial Bypass Graft Status Post Personal History Blas Peck M.D. [facility] Region Procedures Echo Transthoracic (TTE) [address] [place] [address] Referral ID Status Reason Start Date Expiration Date Visits Requ ested Visits Authorized [id number] Closed 12/07/2019 12/06/2020 1 1 Encounter Details Date Type Department Care Team Description 12/12/2020 Hospital Encounter Department of Liv, Dyspnea On Exertion; Cardiovascular Diseases Blas Manley M.D. Coronary Arterial Bypass Graft Status Po st Personal History in [facility] pratik [address] [facility] [phone] Social History Tobacco Use Types Packs/Day Years [...] is covered by insurance. Dx:E11.9 blood-glucose meter [facility] Dispense glucose 1 each 0 10/25 meter, [...] Office Visit Cardiovascular Disease Blas Peck M.D. [address] [place] [address] [address] [place], [place] [phone] (Wo rk) documented as of this encounter Procedures Procedure Name Priority Date/Time Associated Diagnosis Comme nts (TTE) 2D LIMITED Routine 12/12/2020 1:25 PM Dyspnea On E xertion Results for this WITH COLOR AND CDT Coronary Arterial procedur e are in LIMITED DOPPLER Bypass Graft Status the r esults Post Personal section. History documented in this encounter Results (TTE) 2D LIMITED WITH COLOR AND LIMITED DOPPLER (12/12/2020 1:25 PM CDT) [facility] Method Time Signature Ejection Fraction 58 MC CV EIMS Proximal Ascending 37 MC CV EIMS Aorta Wall Motion Score 1.13 MC CV EIMS Index LV Mass Index 74 MC CV EIMS LV End-Diastolic 41 MC CV EIMS Diameter LV End-Systolic 28 MC CV EIMS Diameter Left ventricular 35 MC CV EIMS stroke volume index Cardiac Output 5.54 MC CV EIMS Cardiac Index 2.73 MC CV EIMS LV Interventricular 11 MC CV EIMS Septal Wall Thickness LV Posterior Wall 11 MC CV EIMS Thickness LV Relative Wall 54 MC CV EIMS Thickness Tricuspid Annular S? 0.05 MC CV EIMS WMSI At Rest 1.13 MC CV EIMS WMSI At Peak Stress 1.13 MC CV EIMS Anatomical Region Laterality Modality Echocardiography Specimen (Source) Anatomical Collection Method Collection Time Re ceived Time Location / / Volume Laterality 12/12/2020 12:15 PM CDT Impressions 12/12/2020 3:10 PM CDT Transthoracic outreach echo interpretation. ??Echocardiogram performed per left ventricular function protocol. ??LEFT VENTRICLE: ??N ormal left ventricular chamber size. ??Abnormal left ventricular geometry with concentric rem odeling (increased wall thickness to cavity ratio). Calculated 2-D linear left ventricular e jection fraction 58 %. ??Left ventricular volumes were performed but not reported based on inte rpreter's judgment. ??Regional wall motion abnormalities were present (see wall motion graphics). ??Abnormal ventricular septal motion - post-operative. Indeterminate left ventricular filling p ressure. ??RIGHT VENTRICLE: ??Normal right ventricular chamber size. ??Moderately reduced right ventricular systolic function. ??Unable to detect peak tricuspid regurgitation velocity for pul monary artery systolic pressure calculation. ??ATRIA: Normal left atrial size (Volumetric asse ssment performed but not reported based upon spanish interpreter judgment). ??Normal right at rial size. ??CARDIAC VALVES: ??Trileaflet aortic valve. Mildly thickened aortic valve. ??No aort ic valve regurgitation. ??Mildly sclerotic mitral valve. Mildly calcified mitral annulus. ??Trivi al mitral valve regurgitation. ??Normal pulmonary valve. Trivial pulmonary valve regurgitation. ? ?Normal tricuspid valve. ??Trivial tricuspid valve regurgitation. ??OTHER ECHO FINDINGS: ?? Inferior vena cava not well visualized. ??Normal proximal ascending aorta diameter (diameter 37 mm at proximal level). ??No intracardiac mass or thrombus, but the left atrial appendage cannot be visualized adequately with transthoracic echo to exclude thrombus in this location. ??No pericardial effusion. For the complete report, see the [employer] Documents. Narrative 12/12/2020 3:10 PM CDT For the complete report, see the [employer] Documents. Final Impressions 1. Normal left ventricular chamber size, regional wall motion abnormalities were present (see wall motion graphics), calculated 2-D li near ejection fraction 58 %. 2. Abnormal left ventricular geometry wi th concentric remodeling (increased wall thickness to cavity ratio), indeterminate filling pre ssure. 3. Normal right ventricular chamber size , moderately reduced systolic function, unable to detect peak tricuspid regurgitation [place] for pulmonary artery systolic pressure calculation. 4. No hemodynamically significant valvul ar heart disease. 5. No pericardial effusion. 6. Compared to the report of 02/02/2019 the following changes have occurred: The right ventricular systolic function is slightl y worse (by limited visual assessment and by lateral tricuspid annulus tissue Doppler velocit y). Side by side images compared. Procedure Note James Ross M.D. - 12/12/2020F ormatting of this note might be different from the original. For the complete report, see the [employer] Documents. Final Impressions 1. Normal left ventricular chamber size, regional wall motion abnormalities were present (see wall motion graphics), calculated 2-D li near ejection fraction 58 %. 2. Abnormal left ventricular geometry wi th concentric remodeling (increased wall thickness to cavity ratio), indeterminate filling pre ssure. 3. Normal right ventricular chamber size , moderately reduced systolic function, unable to detect peak tricuspid regurgitation [place] for pulmonary artery systolic pressure calculation. 4. No hemodynamically significant valvul ar heart disease. 5. No pericardial effusion. 6. Compared to the report of 02/02/2019 the following changes have occurred: The right ventricular systolic function is slightl y worse (by limited visual assessment and by lateral tricuspid annulus tissue Doppler velocit y). Side by side images compared. Findings Transthoracic outreach echo interpretati on. Echocardiogram performed per left ventricular function protocol. LEFT VENTRICLE: Lulú l left ventricular chamber size. Abnormal left ventricular geometry with concentric rem odeling (increased wall thickness to cavity ratio). Calculated 2-D linear left ventricular e jection fraction 58 %. Left ventricular volumes were performed but not reported based on inte rpreter's judgment. Regional wall motion abnormalities were present (see wall motion graphics). Abnormal ventricular septal motion - post-operative. Indeterminate left ventricular filling p ressure. RIGHT VENTRICLE: Normal right ventricular chamber size. Moderately reduced right v entricular systolic function. Unable to detect peak tricuspid regurgitation velocity for pul monary artery systolic pressure calculation. ATRIA: Normal left atrial size (Volumetric asse ssment performed but not reported based upon spanish interpreter judgment). Normal right atri al size. CARDIAC VALVES: Trileaflet aortic valve. Mildly thickened aortic valve. No aortic valve regurgitation. Mildly sclerotic mitral valve. Mildly calcified mitral annulus. Trivial mitral valve regurgitation. Normal pulmonary valve. Trivial pulmonary valve regurgitation. N ormal tricuspid valve. Trivial tricuspid valve regurgitation. OTHER ECHO FINDINGS: Infe rior vena cava not well visualized. Normal proximal ascending aorta diameter (diameter 37 mm at proximal level). No intracardiac mass or thrombus, but the left atrial appendage cannot be visualized adequately with transthoracic echo to exclude thrombus in this location. No pe ricardial effusion. For the complete report, see the [employer] Documents. Blas Peck M.D. CV ECHO PROCEDURES documented in this encounter Visit Diagnoses Diagnosis Dyspnea On Exertion Coronary Arterial Bypass Graft Status Po st Personal History documented in this encounter Additional Health Concerns Assessment Noted Time PHQ-9 Depression Total Score: 1 10/31/2019 2:00 PM CDT documented as of this encounter Care Teams Divisional Human Resources Director Relationship Specialty Start Date End Date Caryn Hayward P.A.-C. PCP - General 07/25/20 09/19/21 [address] [place] [phone] documented as of this encounter
--- OUTSIDE RECORDS SUMMARY | 2022-02-17 12:16 | XMS_ITS | Encounter Summary ---
:1950 Author Organization [facility] Address [address] [place] [address] Care Team Providers Name Role Phone Lucy Morales APRN C.N.PMichelle, D.N.P. Primary Care Provider Reason for Referral Outpatient (Routine) - Closed Specialty Diagnoses / Procedures Referred By Contact Refer red To Contact Ophthalmology Diagnoses Diabetes Mellitus Type 2 With Diabetic Neuropathy Hyperglycemic (HCC) Lucy Morales APRN, [facility] C.N.P., D.N.P. [address] [place] [address] [phone] Referral ID Status Reason Start Date Expiration Date Visits V isits Requested Authorized [id number] Closed Specialty 03/14/2020 03/14/2021 1 1 Services Required D DEVELOPER Reason for Visit Reason Comments Diabetes Mellitus Appointment Request (Routine) - Closed Specialty Diagnoses / Procedures Referred By Contact Refer red To Contact Community Internal Medicine Referral ID Status Reason Start Date Expiration Date Visits Requ ested Visits Authorized [id number] Closed 03/05/2020 03/05/2021 1 1 Encounter Details Date Type Department Care Team Description 03/14/2020 Office Visit Department of Lucy Morales, Diabetes Mellitus Type 2 With Diabetic Neuropathy Hyperglycemic (HCC) (Primary Dx); Internal Medicine in [place] C.N.PMichelle, Cisse ry Artery Disease Without Angina Pectoris; [place], [place] D.N.P. Hyperlipidemia; [address] Hypertensive Heart And Chronic Kidney Di sease Without Heart Failure And With Stage 2 (Mild) Chronic Kidney Disease; [place], [place] Bowel Habit Christy nge; [phone] Pain Generalized Abdominal; [phone] Overactive Blad horace; (Work) Primary Osteoarthritis Knee Bilateral; [phone] Anxiety (Fax) Social History Tobacco Use Types Packs/Day Years Used Date Smoking Tobacco: Every Day Pipe Smokeless Tobacco: Never Tobacco Cessation: Ready to Quit: No; Co unseling Given: No Comments: pipe Alcohol Use Standard Drinks/Week Comments [...] Sign Reading Time Taken Comments Blood Pressure 101/69 03/14/2020 9:22 AM CLOUD DEVELOPER Pulse 88 03/14/2020 9:22 AM CLOUD DEVELOPER Temperature 36.1 ??C (96.9 ??F) 03/14/2020 9:22 AM CLOUD DEVELOPER Respiratory Rate - - Oxygen Saturation 97% 03/14/2020 9:22 AM CLOUD DEVELOPER Inhaled Oxygen Concentration - - Weight 97 kg (213 lb 13.5 oz) 03/14/2020 9:22 AM CLOUD DEVELOPER Height - - Body Mass Index 32.22 12/07/2019 8:37 AM CDT documented in this encounter Progress Notes Lucy Morales, C.N.P., D.N.P. - 03/14/2020 9:30 AM CST SUBJECTIVE CHIEF COMPLAINT Diabetes Mellitus. Elvis is a very pleasant 69 y.o. male who presents for routine follow-up of Diabetes Mellitus. He reports overall he has been feeling well since his last visit. He recently started a new relationship and as a result has been taking his health a bit more seriously and has been motivated to improve his diet and exercise. Reports he lost quite a bit of weight after changing the way he ate. His abdominalpain has nearly resolved. Reports his constipation has also gotten much better. He was feeling very bloated but this has resolved. He is now having 2-3 bowel movements daily. Occasionally has uncomfortable bowel movements still but these are much better than they used to be. Reports his energy level has been much better as well. Blood sugars have been primarily in the low 100s. Tolerating the Trulicity and Lantus well without any side effects. He had 1 episode of what he believes was symptomatic hypoglycemia. Did not check his blood sugar. Was easily treated with food. Has not had any further episodes of hypoglycemia that he is aware of. Denies any vision changes. No chest pain. Denies any increased weakness or fatigue. No new or worsening numbness or tingling in his feet. Denies any urinary changes. Continues to have issues with some overactive bladder symptoms and is maintained on Flomax and oxybutynin which he reports he is tolerating well. He does occasionally uses the Ativan, reports it has been very helpful for his anxiety. No other acute concerns today. SOCIAL HISTORY Reports daily pipe use. Denies any tobacco use. No concern for excessive alcohol use. Lives independently. PAST MEDICAL HISTORY Patient Active Problem List Diagnosis ??? 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 Coronary Artery Disease Without Angina Pectoris ??? Anxiety ??? Apnea Sleep Obstructive ??? Body Mass Index 34.0 To 34.9 Adult ??? Callus Hargill Foot ??? Bowel Habit Change ??? Coronary [...] Osteoarthritis Knee Right ??? Pain Generalized Abdominal PAST SURGICAL HISTORY Past Surgical History: Procedure Laterality Date ??? CHOLECYSTECTOMY ??? COLON BIOPSY 06/28/2018 Adenomatous colonic polyps with Dr. Colby tidwell advised for 3 years ??? COLONOSCOPY 07/27/2015 Four colon polyps. Repeat in 3 years. [facility]. ??? COLONOSCOPY W/ POLYPECTOMY 05/11/[address]/[place]. Dr. Devi miralax prep, quality poor. Repeat in 1yr due to poor prep. ??? CORONARY ARTERY BYPASS GRAFTS X 4 05/28/2014 ??? INGUINAL HERNIA REPAIR Bilateral FAMILY HISTORY Family History Relation Problem Comments Mother () Cataracts Colon cancer Diabetes Hypertension Irritable bowel syndrome Father () Deep vein thrombosis PE - Pulmonary embolism Sister () Parkinson disease Brother (Alive) Prostate cancer Brother ( at age 38) Accident Paternal Grandfather () Appendicitis Grandfather Irritable bowel syndrome CURRENT MEDICATIONS Current Outpatient Medications Medication Sig ??? aspirin 81 mg chewable tablet Chew 1 tablet daily. ??? atorvastatin (LIPITOR) 20 mg tablet TAKE 1 TABLET BY MOUTH AT BEDTIME ??? blood sugar diagnostic (glucose blood) strips 3 test daily. Whatever is covered by insurance. Dx:E11.9 ??? blood-glucose meter [facility] Dispense glucose meter, test strips, lancing device, and lancets covered by the patient insurance. Test 3 times per day. Dx: E11.40, E11.65 ??? CONTOUR TEST STRIPS strips USE ONE STRIP TO CHECK GLUCOSE ONCE DAILY BEFORE BREAKFAST ??? dulaglutide (Trulicity) 1.5 mg/0.5 mL pen injector injection Inject 0.5 mL (1.5 mg total) under the skin every 7 (seven) days. ??? ibuprofen (ADVIL,MOTRIN) 200 mg tablet Take 400 mg by mouth as needed. ??? insulin syringe-needle U-100 0.3 mL 31 gauge x 15 syringe 1 Injection daily. ??? lancets Check sugar 3 times daily before meals ??? Lantus U-100 Insulin 100 unit/mL injection Inject 20 Units under the skin daily with dinner. (Patient taking differently: Inject 20 Units under the skin at bedtime. ) ??? lisinopril (PRINIVIL,ZESTRIL) 2.5 mg tablet TAKE 1 TABLET BY MOUTH IN THE MORNING ??? LORazepam (ATIVAN) 1 mg tablet Take 1 tablet (1 mg total) by mouth 2 (two) times a day as neededfor anxiety. ??? metoprolol tartrate (LOPRESSOR) 25 mg tablet Take 1 tablet by mouth twice daily ??? nitroglycerin (NITROSTAT) 0.4 mg SL tablet DISSOLVE ONE TABLET UNDER THE TONGUE EVERY 5 MINUTES NEEDED FOR CHEST PAIN. DO NOT EXCEED A TOTAL OF 3 DOSES IN 15 MINUTES AND CALL 911 ??? oxybutynin (DITROPAN-XL) 10 mg 24 hr tablet Take 1 tablet (10 mg total) by mouth at bedtime. ??? polyethylene glycol (for_MIRALAX) 17 gram powder packet Take 17 g by mouth daily. ??? PSYLLIUM HUSK (METAMUCIL ORAL) Take 1.7 g by mouth at bedtime. ??? tamsulosin (FLOMAX) 0.4 mg 24 hr capsule Take 1 capsule (0.4 mg total) by mouth daily. ??? venlafaxine XR (EFFEXOR-XR) 150 mg 24 hr capsule Take 1 capsule (150 mg total) by mouth daily. ??? aspirin [address] tablet Take 81 mg by mouth 4 (four) times a day with meals and bedtime. ??? nystatin (NYSTOP) 100,000 unit/gram powder Apply 1 application topically 3 (three) times a day. (Patient not taking: Reported on 03/14/2020 ) ??? PEPPERMINT OIL ORAL Take 1 capsule by mouth as needed. ALLERGIES Allergies Allergen Reactions ??? Sertraline Other (see comments) ??? Sulfamethoxazole-Trimethoprim Swelling REVIEW OF SYSTEMS REVIEW OF SYSTEMS Pertinent positives as per HPI. Otherwise, comprehensive review of systems performed and negative. OBJECTIVE Constitutional General: He is not in acute distress. Appearance: He is well-developed. He is not diaphoretic. HENT Head: Normocephalic and atraumatic. Right Ear: External ear normal. Left Ear: External ear normal. Eyes General: No scleral icterus. Pupils: Pupils are equal, round, and reactive to light. Neck Musculoskeletal: Normal range of motion. Cardiovascular Rate and Rhythm: Normal rate and regular rhythm. Heart sounds: Normal heart sounds. No murmur. No friction rub. No gallop. Pulmonary Effort: Pulmonary effort is normal. No respiratory distress. Breath sounds: Normal breath sounds. No wheezing. Musculoskeletal Normal range of motion. Skin General: Skin is warm and dry. Neurological Mental Status: He is alert and oriented to person, place, and time. Psychiatric Behavior: Behavior normal. Foot Exam: Full sensation bilaterally with monofilament test. Skin on feet dry and intact. Visual inspection did not show any signs skin breakdown. Pedal pulses +2 bilaterally. VITAL SIGNS: BP 101/69 (BP Location: Right arm, Patient Position: Sitting, Cuff Size: Large) Pulse 88 Temp 36.1 ??C (Temporal) Wt 97 kg SpO2 97% BMI 32.22 kg/m?? ASSESSMENT / PLAN #1 Diabetes Mellitus Type 2 With Diabetic Neuropathy Hyperglycemic (HCC) Overview: Maintained on Trulicity and Lantus Assessment & Plan: A1c has improved substantially down to 7.3 and is nearly within goal. He has made a lot of lifestylechanges which I suspect have been helpful. Encouraged him to continue with these including eating healthier and engaging in activity. Recommended we continue with his current dose of Lantus and Trulicity. Denies any episodes of hypoglycemia. Foot exam updated today. Orders: - Ophthalmology - General consult (clinic); Future; Expected date: 03/14/2020 (Elective - F2F only) - HepB: hepatitis B adult (Heplisav-B) vaccine (age 18 years and older) - Hemoglobin A1c; Future; Expected date: 06/12/2020 - Community Internal Medicine office visit (clinic); Future; Expected date: 06/12/2020 #2 Coronary Artery Disease Without Angina Pectoris Assessment & Plan: Stable without any complaints of chest pain. Has not needed to use his nitroglycerin. Continue with daily low-dose aspirin. Last saw Cardiology in November of 2019. Recommend annual cardiology visits. #3 Hyperlipidemia Overview: Maintained on Lipitor Assessment & Plan: LDL was within goal when last checked in October. Continue with current dose of Lipitor. 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 Kidney function and electrolytes remain stable. Continue with current dose of lisinopril and metoprolol. #5 Bowel Habit Change #6 Pain Generalized Abdominal Assessment & Plan: This has overall improved since his last visit. He had some changes in his bowel habits. It sounds as though he went from being constipated to having regular bowel movements which was unusual for him. I suspect this was related to starting healthier diet likely eating more fiber at this point. No longer needing medications for constipation. Abdominal pain has improved dramatically. We reviewed his imaging done previously including CT scan and MRI which were both stable. Encouraged him to follow up if symptoms worsen. #7 Overactive Bladder Assessment & Plan: Overall stable. Continue with oxybutynin and Flomax. Orders: - tamsulosin (FLOMAX) 0.4 mg 24 hr capsule; Take 1 capsule (0.4 mg total) by mouth daily., Starting 03/14/2020, Until Mirela 03/14/2021, Normal #8 Primary Osteoarthritis Knee Bilateral Assessment & Plan: Reports his knee pain is doing much better. He thinks the last cortisone injections he received havebeen helpful. Has been more active recently and has found this to be helpful as well. He will let meknow if he needs a referral back to Orthopedics. #9 Anxiety Assessment & Plan: Reports his anxiety is overall stable. He is using the Ativan nearly every day but finds it to be helpful in treating panic episodes. Encouraged him to continue to use this sparingly and only as needed. Recommended Elvis follow up in 3 months for routine diabetic check. Follow up sooner for any new or worsening symptoms. Elvis verbalized understanding of the plan of care and was in agreement. All questions were answered today. D DEVELOPER documented in this encounter Miscellaneous Notes Assessment & Plan Note - Lucy Morales C.NSurya., D.N.P. - 03/14/2020 12:24 PM CSTAssociated Problem(s): Pain Generalized Abdominal This has overall improved since his last visit. He had some changes in his bowel habits. It sounds as though he went from being constipated to having regular bowel movements which was unusual for him. I suspect this was related to starting healthier diet likely eating more fiber at this point. No longer needing medications for constipation. Abdominal pain has improved dramatically. We reviewed his imaging done previously including CT scan and MRI which were both stable. Encouraged him to follow up if symptoms worsen. D DEVELOPER Assessment & Plan Note - Lucy Morales C.N.P., D.N.P. 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 Kidney function and electrolytes remain stable. Continue with current dose of lisinopril and metoprolol. D DEVELOPER Assessment & Plan Note - Lucy Morales C.N.PMichelle, D.N.P. - 03/14/2020 12:23 PM CSTAssociated Problem(s): Overactive Bladder Overall stable. Continue with oxybutynin and Flomax. D DEVELOPER Assessment & Plan Note - Lucy Morales C.N.P., D.N.P. - 03/14/2020 12:23 PM CSTAssociated Problem(s): Primary Osteoarthritis Knee Bilateral Reports his knee pain is doing much better. He thinks the last cortisone injections he received havebeen helpful. Has been more active recently and has found this to be helpful as well. He will let janethw if he needs a referral back to Orthopedics. D DEVELOPER Assessment & Plan Note - Lucy Morales C.N.P., D.N.P. - 03/14/2020 12:22 PM CSTAssociated Problem(s): Hyperlipidemia LDL was within goal when last checked in October. Continue with current dose of Lipitor. D DEVELOPER Assessment & Plan Note - Lucy Morales C.N.P., Ebony.N.P. - 03/14/2020 12:22 PM CSTAssociated Problem(s): Anxiety Reports his anxiety is overall stable. He is using the Ativan nearly every day but finds it to be helpful in treating panic episodes. Encouraged him to continue to use this sparingly and only as needed. D DEVELOPER Assessment & Plan Note - Lucy Morales C.NMichellePMichelle, Ebony.N.P. - 03/14/2020 12:21 PM CSTAssociated Problem(s): Coronary Artery Disease Without Angina Pectoris Stable without any complaints of chest pain. Has not needed to use his nitroglycerin. Continue with daily low-dose aspirin. Last saw Cardiology in November of 2019. Recommend annual cardiology visits. D DEVELOPER Assessment & Plan Note - Lucy Morales C.N.P., D.N.P. - 03/14/2020 12:20 PM CSTAssociated Problem(s): Diabetes Mellitus Type 2 With Diabetic Neuropathy Hyperglycemic (HCC) A1c has improved substantially down to 7.3 and is nearly within goal. He has made a lot of lifestylechanges which I suspect have been helpful. Encouraged him to continue with these including eating healthier and engaging in activity. Recommended we continue with his current dose of Lantus and Trulicity. Denies any episodes of hypoglycemia. Foot exam updated today. D DEVELOPER documented in this encounter Plan of Treatment Upcoming Encounters Date Type Specialty Care Team Description 04/23/2022 Office Visit Cardiovascular Disease Blas Peck M.D. [address] [place], [place] [phone] (Wo rk) Scheduled Referrals Name Type Priority Associated Diagnoses Order S chedule Ophthalmology - Outpatient Routine Diabetes Mellitus Expecte d: General consult Referral Type 2 With Diabetic 05/2019 (clinic) Neuropathy (Approximate), Hyperglycemic (HCC) Expires: 03/14/2023 documented as of this encounter Visit Diagnoses Diagnosis 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 Hyperglycemic (HCC) - Primary Coronary Artery Disease Without Angina P ectoris Hyperlipidemia Hypertensive Heart And Chronic Kidney Di sease Without Heart Failure And With Stage 2 (Mild) Chronic Kidney Disease Bowel Habit Change Pain Generalized Abdominal Overactive Bladder Primary Osteoarthritis Knee Bilateral Anxiety documented in this encounter Additional Health Concerns Assessment Noted Time PHQ-9 Depression Total Score: 1 10/31/2019 2:00 PM CDT documented as of this encounter Care Teams Tempering Oven Operator Relationship Specialty Start Date End Date Lucy Morales APRN, C.N.P., PCP - General Internal Medicine 07/1207/24/20 D.N.P. [address] [place] [phone] documented as of this encounter
--- OUTSIDE RECORDS SUMMARY | 2022-02-17 12:16 | XMS_ITS | Encounter Summary ---
:1950 Author Organization [facility] Address [address] [place] [id number] Care Team Providers Name Role Phone Lucy Morales APRN C.N.PMichelle, D.N.P. Primary Care Provider Encounter Details Date Type Department Care Team Description 11/10/2019 Hospital Encounter Department of Raj Navarro Diabetes Mellitus Laboratory Medicine Andrea, Type 2 ( HCC) in Denise Owen, Ph.D. [address] [phone] Social History Tobacco Use Types Packs/Day Years [...] Sig Dispensed Refills Start Date End Date blood sugar diagnostic 3 test daily. 300 strip 11 10/25/2018 (glucose blood) strips Whatever is covered by insurance. Dx:E11.9 blood-glucose meter Dispense glucose 1 each 0 10/25/2018 misc meter, test strips, lancing device, and lancets covered by the patient insurance. Test 3 times per day. Dx: E11.40, E11.65 CONTOUR TEST STRIPS USE ONE STRIP TO 100 strip 4 11/13/2017 strips CHECK GLUCOSE ONCE DAILY BEFORE BREAKFAST ibuprofen Take 400 mg by mouth 0 11/25/2018 (ADVIL,MOTRIN) 200 mg as needed. tablet lancets Check sugar 3 times 300 each 3 10/25/2018 daily before meals polyethylene glycol Take 17 g by mouth 0 08/29/19 17 (for_MIRALAX) 17 gram daily. powder packet PSYLLIUM HUSK Take 1.7 g by mouth 0 04/25/2016 (METAMUCIL ORAL) at bedtime. aspirin 81 mg chewable Chew 1 tablet daily. 0 07/09/2020 tablet atorvastatin (LIPITOR) TAKE 1 TABLET BY 90 tablet 3 020 08/23/2020 20 mg tablet MOUTH AT BEDTIME dulaglutide (Trulicity) Inject 0.5 mL (1.5 2 mL 11 10/1301/14/2021 1.5 mg/0.5 mL pen mg total) under the injector injection skin every 7 (seven) days. insulin syringe-needle 1 Injection daily. 100 Syringe 3 04/201803/26/2020 U-100 0.3 mL 31 gauge x 15/64 syringe LANTUS U-100 INSULIN Inject 0.2 mL (20 20 mL 3 01/01/20 19 02/17/2020 100 unit/mL injection Units total) under the skin daily with dinner. Dose increased on 12/31/2018 lisinopril TAKE 1 TABLET BY 90 tablet 3 05/19/2019 01/15/20 21 (PRINIVIL,ZESTRIL) 2.5 MOUTH IN THE MORNING mg tablet LORazepam (ATIVAN) 1 mg Take 1 tablet (1 mg 30 tablet 0 12/12/2019 tabletIndications: total) by mouth 2 Panic Disorder Episodic (two) times a day as Paroxysmal Anxiety needed for anxiety. metoprolol tartrate Take 1 tablet by 180 tablet 3 06/21/2019 01/14/2021 (LOPRESSOR) 25 mg mouth twice daily tablet nitroglycerin DISSOLVE ONE TABLET 25 tablet 0 08/26/2019 (NITROSTAT) 0.4 mg SL UNDER THE TONGUE tablet EVERY 5 MINUTES NEEDED FOR CHEST PAIN. DO NOT EXCEED A TOTAL OF 3 DOSES IN 15 MINUTES AND CALL 911 nystatin (NYSTOP) Apply 1 application 60 g 1 0 07/09/2020 100,000 unit/gram topically 3 (three) powder times a day. oxybutynin Take 1 tablet (10 mg 90 tablet 3 10/29/2018 08/0 08/2019 (DITROPAN-XL) 10 mg 24 total) by mouth at hr tablet bedtime. PEPPERMINT OIL ORAL Take 1 capsule by 0 07/09/2020 mouth as needed. tamsulosin (FLOMAX) 0.4 Take 1 capsule (0.4 90 capsule 3 12/201803/14/2020 mg 24 hr capsule mg total) by mouth daily. venlafaxine XR Take 1 capsule (150 90 capsule 3 09/29/2019 0 09/24/2020 (EFFEXOR-XR) 150 mg 24 mg total) by mouth hr capsuleIndications: daily. Anxiety documented as of this encounter Plan of Treatment Upcoming Encounters Date Type Specialty Care Team Description 04/23/2022 Office Visit Cardiovascular Disease Blas Peck M.D. [address] [place] [phone] (Wo rk) documented as of this encounter Visit Diagnoses Diagnosis Diabetes Mellitus Type 2 (HCC) documented in this encounter Additional Health Concerns Assessment Noted Time PHQ-9 Depression Total Score: 1 10/31/2019 2:00 PM CDT documented as of this encounter Care Teams Disk Recordist Relationship Specialty Start Date End Date Lucy Morales APRN, C.N.P., PCP - General Internal Medicine 07/1207/24/20 D.N.P. [address] [place] [phone] documented as of this encounter
--- OUTSIDE RECORDS SUMMARY | 2022-02-17 12:16 | XMS_ITS | Encounter Summary ---
:1950 Author Organization [facility] Address [address] [place] [address] Care Team Providers Name Role Phone Teresa PerdueAIshan Primary Care Provider Reason for Visit Reason Comments Med Refill Encounter Details Date Type Department Care Team Description 09/24/2020 Refill Department of Family Medicine, Teresa Roca P.AMichelle-CMichelle Med Refill [facility], [facility], [address] [place] [address] [address] [place] [address] [phone] Social History Tobacco Use Types Packs/Day Years [...] this encounter Miscellaneous Notes Telephone Encounter - Catalina Blake - 10/02/2020 1:34 PM CDT Patient has been scheduled Telephone Encounter - Teresa Perdue P.A.-C. - 10/02/2020 10:37 AM CDT Orders placed. Addendum Note - Teresa Perdue P.A.-C. - 10/02/2020 10:37 AM CDT Addended by: TERESA PERDUE on: 10/02/2020 10:37 AM Modules accepted: Orders Telephone Encounter - Teresa Perdue P.A.-C. - 09/26/2020 12:28 PM CDT 90-day supply provided. It looks like you are due for diabetes check. Please schedule appointment and have HgbA1c drawn at least day prior to visit. documented in this encounter Plan of Treatment Upcoming Encounters Date Type Specialty Care Team Description 04/23/2022 Office Visit Cardiovascular Disease Blas Peck M.D. [address] [place] [phone] (Wo rk) documented as of this encounter Results (ABNORMAL) Hemoglobin A1c (10/08/2020 9:31 AM CDT) P athologist Signature Hemoglobin A1c, 7.1 (H) 4.2 - 5.6 10/08/2020 [place] B % 11:14 AM CDT Comment: Hemoglobin A1c values greater than or eq ual to 6.5 percent are diagnostic for diabetes mellitus. ?? Diagnosis should be confirmed by repeat testing. ??In diabet ic patients, HbA1c goals should be discussed with healthcar e provider. Specimen Anatomical Collection Method Collection Time Receive d Time (Source) Location / / Volume Laterality Blood (Blood, 10/08/2020 9:31 AM 10/09/19 21 Venous) CDT 10:28 AM CDT Teresa Perdue P.A.-C. LAB BLOOD ADD-ON Performing Organization Address City/State/ZIP Code Phon e Number [facility] [address] [place] [address] [place] [address] System in [place] [address] (ABNORMAL) Albumin, Random, Urine (10/08/2020 9:30 AM CDT) athologist Signature Microalbumin <12.0 mg/L 10/08/2020 [place] 11:25 AM CDT Comment: If clinically indicated, contac t the lab for additional testing. Creatinine 26 mg/dL 10/08/2020 11:22 AM CDT [place] Albumin/Creatinine Ratio <46 (H) <17 mg/g 10/08/2020 11:2 5 AM CDT [place] Comment: This ratio may not correspond with the r eference range because one or both of the values used t o calculate the ratio was above or below the quantificat ion limits. Specimen Anatomical Collection Method Collection Time Receive d Time (Source) Location / / Volume Laterality Urine (Urine, 10/08/2020 9:30 AM 10/09/19 Clean Catch) CDT 10:28 AM CDT Teresa Perdue P.A.-C. 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 PCP - General 07/25/20 09/19/[address]199 [place] [phone] documented as of this encounter
--- OUTSIDE RECORDS SUMMARY | 2022-02-17 12:16 | XMS_ITS | Encounter Summary ---
:1950 Author Organization [facility] Address [address] [place] [address] Care Team Providers Name Role Phone Lucy Morales APRN C.N.PMichelle, D.N.P. Primary Care Provider Reason for Referral MRI/CAT/PET Scan (Routine) - Closed Specialty Diagnoses / Procedures Referred By Contact Refer red To Contact Radiology Diagnoses Kidney And Ureter Disorder Lucy Morales APRN, [facility] [place] [facility] Procedures MR Abdomen without and with IV Contrast C.N.P., D.N.P. [address] [place] [phone] Referral ID Status Reason Start Date Expiration Date Visits Requ ested Visits Authorized Closed 10/12/2019 10/11/2020 1 1 Reason for Visit MRI/CAT/PET Scan (Routine) - Closed Specialty Diagnoses / Procedures Referred By Contact Refer red To Contact Radiology Diagnoses Kidney And Ureter Disorder [facility] Morales APRN, [facility] [place] [facility] Procedures MR Abdomen without and with IV Contrast C.N.P., D.N.P. [address] [place] [address] Referral ID Status Reason Start Date Expiration Date Visits Requ ested Visits Authorized Closed 10/12/2019 10/11/2020 1 1 Encounter Details Date Type Department Care Team Description 11/14/2019 Hospital Encounter Department of Andrew Lucy Kidney And Ureter Radiology in [place], BRIAN C.N.Hugh., Disorder [place], [place] D.N.P. [address] [place], [place] [phone] Social History Tobacco Use Types Packs/Day Years [...] Office Visit Cardiovascular Disease Blas Peck M.D. [facility] [place] [phone] (Wo rk) documented as of this encounter Procedures Procedure Name Priority Date/Time Associated Comments Diagnosis MR ABDOMEN RAD - Routine 11/14/2019 10:28 Kidney And Ureter Resul ts for this WITHOUT AND WITH (most inpatients AM CDT Disorder procedu re are in IV CONTRAST and all the results outpatients) section. documented in this encounter Results MR Abdomen without and with IV Contrast (11/14/2019 10:28 AM CDT) Anatomical Region Laterality Modality Abdomen, Abdominal RST LOS, Abdominal ARZ LOS, N/A Magnetic Resonance Abdominal FLA LOS Specimen (Source) Anatomical Collection Method Collection Time Re ceived Time Location / / Volume Laterality 11/14/2019 10:39 AM CDT Impressions 11/14/2019 10:47 AM CDT 1. ??Bilateral renal cysts. No suspicious renal masses. Narrative 11/14/2019 10:47 AM CDT EXAM: MR ABDOMEN WITHOUT AND WITH IV CONTRAST COMPARISON: October 12, 2019 FINDINGS: The liver, spleen, adrenals, and pancrea s are normal in appearance. There are bilateral renal cysts noted. Demonstrate s no enhancing components compatible with a cyst. No suspicious renal masses. Procedure Note Cam Mark M.D. - 11/14/2019Forma tting of this note might be different from the original. EXAM: MR ABDOMEN WITHOUT AND WITH IV CON TRAST COMPARISON: October 12, 2019 FINDINGS: The liver, spleen, adrenals, and pancrea s are normal in appearance. There are bilateral renal cysts noted. Demonstrate s no enhancing components compatible with a cyst. No suspicious renal masses. IMPRESSION: 1. Bilateral renal cysts. No suspicious renal masses. Lucy Morales APRN, C.N.P., D.N.P. IMG MRI PROCEDURE S documented in this encounter Visit Diagnoses Diagnosis Kidney And Ureter Disorder documented in this encounter Administered Medications Inactive Administered Medications - up to 3 most recent administrations Medication Order MAR Action Action Date Dose Rate Site gadobutrol injection 1-14 mL Given 11/14/2019 10:07 AM CDT 9.8 m L (GADAVIST) 1-14 mL, intravenous, Once in imaging, contrast, Starting on Thu11/14/19 at 0946, For 1 dose, Dose per Radiant Medication Guidelines sodium chloride 0.9 % injection 1-250 mL Given 11/14/2019 10:07 AM CDT 73 mL 1-250 mL, intravenous, Once in imaging, line care, Starting on Thu11/14/19 at 0946, For 1 dose documented in this encounter Additional Health Concerns Assessment Noted Time PHQ-9 Depression Total Score: 1 10/31/2019 2:00 PM CDT documented as of this encounter Care Teams Floor Supervisor Relationship Specialty Start Date End Date Lucy Morales APRN, C.N.P., PCP - General Internal Medicine 07/1207/24/20 D.N.P. [address] [place] [address] documented as of this encounter
--- OUTSIDE RECORDS SUMMARY | 2022-02-17 12:16 | XMS_ITS | Encounter Summary ---
:1950 Author Organization [facility] Address [address] [place] [address] Care Team Providers Name Role Phone Lucy Morales APRN C.N.PMichelle, D.N.P. Primary Care Provider Reason for Visit Reason Comments Med Refill Encounter Details Date Type Department Care Team Description 12/12/2019 Refill Department of Internal Lucy Morales APRN, Med Refill Medicine in [place], [place], D. N.P. [address] [place] [address] [place] [address] [phone] Social History Tobacco Use Types Packs/Day Years [...] this encounter Miscellaneous Notes Telephone Encounter - Bharathi Tellez Bentley - 12/12/2019 10:10 AM CDT Name of Medication: Lorazepam Primary Provider: Lucy Morales APRN, Loren.N.P., D.N.P. Strength: 1 mg tablet Frequency: Take one tablet by mouth 2x a day as needed for anxiety Pharmacy (include location): [facility] [place] documented in this encounter Plan of Treatment Upcoming Encounters Date Type Specialty Care Team Description 04/23/2022 Office Visit Cardiovascular Disease Blas Peck M.D. [address] [place] [phone] (Wo rk) documented as of this encounter Visit Diagnoses Diagnosis Panic Disorder Episodic Paroxysmal Anxie ty documented in this encounter Additional Health Concerns Assessment Noted Time PHQ-9 Depression Total Score: 1 10/31/2019 2:00 PM CDT documented as of this encounter Care Teams Composing Room Supervisor Relationship Specialty Start Date End Date Lucy Morales APRN, C.N.P., PCP - General Internal Medicine 07/1207/24/20 D.N.P. [address] [place] [phone] documented as of this encounter
--- OUTSIDE RECORDS SUMMARY | 2022-02-17 12:16 | XMS_ITS | Encounter Summary ---
:1950 Author Organization [facility] Address [address] [place] [address] Care Team Providers Name Role Phone Lucy Morales APRN C.N.P., D.N.P. Primary Care Provider Reason for Visit Reason Comments Med Refill Encounter Details Date Type Department Care Team Description 11/16/2019 Refill Department of Internal Lucy Morales APRN, Med Refill Medicine in [place], C.N.Aneesh, D. N.P. [address], [place] [address] [place] [address] [facility] [phone] Social History Tobacco Use Types Packs/Day Years [...] this encounter Miscellaneous Notes Telephone Encounter - Aquilino Bob D.O. - 11/16/2019 3:26 PM CDT Rx Approved and sent to pharmacy Electronically signed by: Aquilino Bob D.O. 11/16/19 3:26 PM CDT Telephone Encounter - Marley Hester - 11/16/2019 2:00 PM CDT Nurse review: Unable to forward request to provider; It was reported on 11/10/2019 that the patient is not taking Oxybutynin according to the active med list. Patient is now requesting a refill. Please review request. Thank you Primary Provider: Lucy Morales APRN, Loren.N.Aneesh, D.N.PMichelle Telephone Encounter - Kendall Shah - 11/16/2019 1:56 PM CDT Name of Medication: Oxybutynin Primary Provider: Lucy Morales APRN, C.N.PMichelle, D.N.P. Strength: 10 mg Frequency: 1 x daily [facility] * Patient is going on vacation tomorrow 11/16 and is hoping to get this refilled today if possible. Please send the RX to the pharmacy documented in this encounter Plan of Treatment Upcoming Encounters Date Type Specialty Care Team Description 04/23/2022 Office Visit Cardiovascular Disease Blas Peck M.D. [address] [place] [phone] (Wo rk) documented as of this encounter Visit Diagnoses Not on filedocumented in this encounter Additional Health Concerns Assessment Noted Time PHQ-9 Depression Total Score: 1 10/31/2019 2:00 PM CDT documented as of this encounter Care Teams Boat Finisher Relationship Specialty Start Date End Date Lucy Morales APRN, C.N.P., PCP - General Internal Medicine 07/1207/24/20 D.N.P. [address] [place] [id number] documented as of this encounter
--- OUTSIDE RECORDS SUMMARY | 2022-02-17 12:16 | XMS_ITS | Encounter Summary ---
:1950 Author Organization [facility] Address [address] [place] [address] Care Team Providers Name Role Phone Lucy Morales APRN C.N.PMichelle, D.N.P. Primary Care Provider Reason for Visit Reason Comments Med Refill Encounter Details Date Type Department Care Team Description 01/11/2020 Refill Department of Internal Lucy Morales APRN, Med Refill Medicine in [place], CMichelleNRah, D. N.P. [address], [place] [address] [place] [address] [phone] Social History Tobacco Use Types Packs/Day Years [...] this encounter Miscellaneous Notes Telephone Encounter - Adrian Lazaro Yogesh - 01/11/2020 1:10 PM CDT Name of Medication: lorazepam Primary Provider: Lucy Morales APRN, C.N.P., D.N.P. Strength: 1mg Frequency: take 1 tablet by mouth, 2x a day if needed Pharmacy (include location): [facility] [place] documented in this encounter Plan of Treatment Upcoming Encounters Date Type Specialty Care Team Description 04/23/2022 Office Visit Cardiovascular Disease Blas Peck [facility].D. [address] [facility] [place] [phone] (Wo rk) documented as of this encounter Visit Diagnoses Diagnosis Panic Disorder Episodic Paroxysmal Anxie ty documented in this encounter Additional Health Concerns Assessment Noted Time PHQ-9 Depression Total Score: 1 10/31/2019 2:00 PM CDT documented as of this encounter Care Teams Wool Washing Machine Operator Relationship Specialty Start Date End Date Lucy Morales APRN, C.N.P., PCP - General Internal Medicine 07/1207/24/20 D.N.P. [address] [place] [phone] documented as of this encounter
--- OUTSIDE RECORDS SUMMARY | 2022-02-17 12:16 | XMS_ITS | Encounter Summary ---
:1950 Author Organization [facility] Address [address] [place] [address] Care Team Providers Name Role Phone Lucy Morales APRN C.N.PMichelle, D.N.P. Primary Care Provider Reason for Referral Outpatient (Routine) - Closed Specialty Diagnoses / Procedures Referred By Contact Refer red To Contact Ophthalmology Noemi Herring M.D . [facility] [address] [place] [address] Referral ID Status Reason Start Date Expiration Date Visits Requ ested Visits Authorized [id number] Closed 06/18/2020 06/18/2021 1 1 CONTENT MANAGER Reason for Visit Outpatient (Routine) - Closed Specialty Diagnoses / Procedures Referred By Contact Refer red To Contact Ophthalmology Diagnoses Diabetes Mellitus Type 2 With Diabetic Neuropathy Hyperglycemic (HCC) Lucy Morales APRN, [facility] [place] C.N.P., D.N.P. [address] [place] [address] Referral ID Status Reason Start Date Expiration Date Visits V isits Requested Authorized [id number] Closed Specialty 03/14/2020 03/14/2021 1 1 Services Required Encounter Details Date Type Department Care Team Description 06/18/2020 Comprehensive Visit Department of Noemi Herring es Mellitus Ophthalmology per Beck M.D. Type 2 With Diabetic [place], [place] [address] Neuropathy [address] Hyperglycemic (HCC) [place] [phone] Social History Tobacco Use Types Packs/Day Years [...] PM CDT documented as of this encounter Progress Notes Noemi Herring M.D. - 06/18/2020 2:15 PM CST Elvis Dawkins was seen today for No chief complaint on file. #1 Diabetes mellitus No edema No fiscal services director #2 NSC Monitor RTc 1 year Comp CONTENT MANAGER documented in this encounter Miscellaneous Notes Addendum Note - Noemi Herring M.D. - 06/18/2020 2:15 PM WEB CONTENT MANAGER Addended by: NOEMI HERRING on: 06/18/2020 02:58 PM Modules accepted: Orders CONTENT MANAGER documented in this encounter Plan of Treatment Upcoming Encounters Date Type Specialty Care Team Description 04/23/2022 Office Visit Cardiovascular Disease Blas Peck M.D. 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 [address] [place] [phone] documented as of this encounter
--- OUTSIDE RECORDS SUMMARY | 2022-02-17 12:16 | XMS_ITS | Encounter Summary ---
:1950 Author Organization [facility] Address [address] [place] [address] Care Team Providers Name Role Phone Andrew Lucy Serna APRN C.N.PMichelle, D.N.P. Primary Care Provider Reason for Visit Reason Comments Hernia Encounter Details Date Type Department Care Team Description 11/21/2019 Office Visit Department of General Peter Darden T [facility] Abdominal Surgery in [place] Generalized ([facility] [address]) [address] [place] [phone] Social History Tobacco Use Types Packs/Day [...] Reading Time Taken Comments Blood Pressure 109/69 11/21/2019 2:41 PM CDT Pulse 79 11/21/2019 2:41 PM CDT Temperature 36.8 ??C (98.2 ??F) 11/21/2019 2:41 PM CDT Respiratory Rate - - Oxygen Saturation - - Inhaled Oxygen Concentration - - Weight 98 kg (216 lb 0.8 oz) 11/21/2019 2:41 PM CDT Height - - Body Mass Index 32.56 11/10/2019 11:06 AM CDT documented in this encounter Consult Notes Peter Darden M.D. - 11/21/2019 3:00 PM CDT SUBJECTIVE REASON FOR CONSULT Elvis Dawkins is a 69 y.o. male who presents for evaluation of Hernia. He was referred by Lucy Morales APRN. HISTORY OF PRESENT ILLNESS Mr. Dawkins is being seen in consultation today for complaints of abdominal pain and groin pain in the history of prior bilateral open inguinal hernia repair with mesh. He reports that the pain is present to some extent in each day. States the pain is present in the midline of the abdomen and is a mild pain with pressure. He also occasionally a pain in either the right or left groin. The pain is not consistently located. He has not noticed a lump or a bulge in either groin. He does have a prior history of bilateral open inguinal hernia repair with mesh. He does not describe chronic pain after his mesh repairs. He recently underwent CT scan of the abdomen and pelvis which showed a fat containing right inguinalhernia. It also showed a large amount of stool within the colon. He does endorse difficulties with constipation. He states he uses both Metamucil and MiraLax for hisconstipation and things seem to be getting better recently. The following portions of the patient's history were reviewed and updated as appropriate: allergies,current medications, family history, medical history, social history, surgical history and problem list. REVIEW OF SYSTEMS Pertinent items are noted in HPI; all other review of systems was negative. OBJECTIVE BP 109/69 (BP Location: Right arm, Patient Position: Sitting, Cuff Size: Large) Pulse 79 Temp 36.8 ??C Wt 98 kg BMI 32.56 kg/m?? PHYSICAL EXAM General appearance: alert, oriented, and no acute distress. Eyes: Anicteric sclera Abdomen: Soft, nondistended and obese. No abdominal wall hernias. No tenderness to palpation. Groin: Symmetric to inspection bilaterally. Well-healed incisions bilaterally. Palpation shows no evidence of recurrent hernia on either the right or left groin. No pain with palpation. Diagnostics Leukocytes Date Value Ref Range Status 11/10/2019 7.9 3.4 - 9.6 x10(9)/L Final Hemoglobin Date Value Ref Range Status 11/10/2019 14.8 13.2 - 16.6 g/dL Final Hematocrit Date Value Ref Range Status 11/10/2019 43.0 38.3 - 48.6 % Final MCV Date Value Ref Range Status 11/10/2019 87.0 78.2 - 97.9 fL Final Platelet Count Date Value Ref Range Status 11/10/2019 167 135 - 317 x10(9)/L Final Recent Labs and Imaging: I have personally viewed and interpreted his CT scan from October 11 of this year. It does show small amount of fat in the inguinal canal on the right side. There similar findings on the left although slightly smaller. This appears to be lipomatosis of the inguinal canal rather than recurrent hernia. The mesh is visualized and appears to be in good position bilaterally. ASSESSMENT / PLAN 69-year-old male with intermittent diffuse abdominal pain and groin pain, suspect chronic constipation is the cause of his pain rather than recurrent hernia. #1 Tenderness Abdominal Generalized I discussed my physical exam findings as well as imaging findings with the patient. He does have a large amount of stool within his colon on CT scan and he does endorse difficulties with constipation. Given the mild diffuse pain that he experiences, including intermittent groin pain, I question whether this is due to constipation rather than recurrent hernia. Furthermore, his CT scan shows what appears to be lipomatosis of the inguinal canal rather than recurrent hernia. I have recommended against any repeat surgery in his groin. He agrees. We did discuss changes to his bowel regimen to help with his constipation. He understands and agrees. He will follow up with me as needed. Peter Darden MD documented in this encounter Plan of Treatment Upcoming Encounters Date Type Specialty Care Team Description 04/23/2022 Office Visit Cardiovascular Disease Blas Peck M.D. [address] [place] [phone] (Wo rk) documented as of this encounter Visit Diagnoses Diagnosis Tenderness Abdominal Generalized - Prima ry documented in this encounter Additional Health Concerns Assessment Noted Time PHQ-9 Depression Total Score: 1 10/31/2019 2:00 PM CDT documented as of this encounter Care Teams Thickener Operator Relationship Specialty Start Date End Date Lucy Morales APRN, C.N.P., PCP - General Internal Medicine 07/1207/24/20 D.N.P. [address] [place] [address] documented as of this encounter
--- OUTSIDE RECORDS SUMMARY | 2022-02-17 12:16 | XMS_ITS | Encounter Summary ---
:[address] [facility] Address [address] [place] [address] Care Team Providers Name Role Phone Lucy Morales APRN, C.N.PMichelle, D.N.P. Primary Care Provider Reason for Visit Reason Comments Med Refill Encounter Details Date Type Department Care Team Description 02/17/2020 Refill Department of Internal Lucy Morales APRN, Med Refill Medicine in [place], CMichelleNRah, D. N.P. [address] [place] [address] [place] [address] [facility] [phone] Social History Tobacco Use Types Packs/Day Years [...] this encounter Miscellaneous Notes Telephone Encounter - Kendall Shah - 02/17/2020 9:58 AM CST Name of Medication: Lantus Insulin Primary Provider: Lucy Morales APRN, C.N.P., D.N.P. Strength: 100 unit / ML Frequency: Inject 0.2 ml ( 20 units total ) Pharmacy (include location): [facility] * Patient is almost out of this medication. R CANE GROWER documented in this encounter Plan of Treatment Upcoming Encounters Date Type Specialty Care Team Description 04/23/2022 Office Visit Cardiovascular Disease Blas Peck M.D. [address] [facility] [place] [phone] (Wo rk) documented as of this encounter Visit Diagnoses Not on filedocumented in this encounter Additional Health Concerns Assessment Noted Time PHQ-9 Depression Total Score: 1 10/31/2019 2:00 PM CDT documented as of this encounter Care Teams Water Reuse Program Manager Relationship Specialty Start Date End Date Lucy Morales APRN, C.N.P., PCP - General Internal Medicine 07/1207/24/20 D.N.P. [address] [place] [address] documented as of this encounter
--- OUTSIDE RECORDS SUMMARY | 2022-02-17 12:16 | XMS_ITS | Encounter Summary ---
:1950 Author Organization [facility] Address [address] [place] [address] Care Team Providers Name Role Phone Lucy Morales APRN, C.N.Aneesh, D.N.P. Primary Care Provider Reason for Visit Reason Comments Quality D5 Encounter Details Date Type Department Care Team Description 06/19/2020 Clinical Communication Department of Lucy Morales [facility] D5 Internal Medicine [place] D.N.P. [address] [place] [phone] Social History Tobacco Use Types Packs/Day Years [...] this encounter Miscellaneous Notes Telephone Encounter - Radha Lua - 06/20/2020 10:28 AM CST Message left to schedule. ITECTURAL ENGINEER Telephone Encounter - Brenda Tate L.P.N. - 06/19/2020 2:55 PM ARCHITECTURAL ENGINEER In reviewing the patient's diabetic quality metrics, I have found that the patient is not meeting all of their goals. Patient is due for A1C and Urine Microalbumin Orders are entered. Please call patient to schedule ITECTURAL ENGINEER documented in this encounter Plan of Treatment Upcoming Encounters Date Type Specialty Care Team Description 04/23/2022 Office Visit Cardiovascular Disease Blas Peck M.D. [address] [place] [address] [place], [place] [phone] (Wo rk) documented as of this encounter Visit Diagnoses Not on filedocumented in this encounter Additional Health Concerns Assessment Noted Time PHQ-9 Depression Total Score: 1 10/31/2019 2:00 PM CDT documented as of this encounter Care Teams Spraying Machine Operator Relationship Specialty Start Date End Date Lucy Morales APRN, C.N.P., PCP - General Internal Medicine 07/1207/24/20 D.N.P. [address] [phone] documented as of this encounter
--- OUTSIDE RECORDS SUMMARY | 2022-02-17 12:16 | XMS_ITS | Encounter Summary ---
:1950 Author Organization [facility] Address [address] [place] [address] Care Team Providers Name Role Phone Lucy Morales APRN, C.NRah, D.N.P. Primary Care Provider Encounter Details Date Type Department Care Team Description 03/05/2020 Clinical Communication Department of Lucy Morales, Internal Medicine [place] D.N.P. [address] [phone] Social History Tobacco Use Types Packs/Day Years [...] this encounter Miscellaneous Notes Telephone Encounter - Monalisa Casillas C.M.A. - 03/05/2020 10:26 AM TRANSFER KNITTER SUBJECTIVE CHIEF COMPLAINT / REASON FOR CALL No chief complaint on file. PLAN The following information was provided: Patient notified and transferred to scheduling Information/Education: patient/caller able to teach back The following references were used: provider Lucy Morales APRN, MONOTYPE OPERATOR SFER KNITTER Telephone Encounter - Lucy Morales APRN C.N.PMichelle, D.N.P. - 03/05/2020 10:21 AM CST Orders in for labs, please schedule prior to his visit SFER KNITTER Telephone Encounter - Monalisa Casillas C.M.A. - 03/05/2020 10:11 AM TRANSFER KNITTER Last Lipid done on 11/10/2019 SFER KNITTER Telephone Encounter - Toshia Santizo - 03/05/2020 10:01 AM CST Reason for Communication: Patient requesting lab orders to be placed for his diabetes check on 03/14/2020. Please call patient when labs are placed so he can get them scheduled right away. Current Can Nursing/Provider leave a detailed message?: yes, that labs are placed. Did the patient refuse triage through Nurse line? (for symptom based concerns): Action Needed: phone call Name of Medication (if relevant): SFER KNITTER documented in this encounter Plan of Treatment Upcoming Encounters Date Type Specialty Care Team Description 04/23/2022 Office Visit Cardiovascular Disease Blas Peck M.D. [address] [place] [phone] (Wo rk) documented as of this encounter Results Basic Metabolic Panel (03/12/2020 11:55 AM TRANSFER KNITTER) P athologist Signature Potassium, P 4.4 3.6 - 5.2 03/12/2020 [facility] mmol/L 2:06 PM TRANSFER KNITTER Sodium, P 135 135 - 145 03/12/2020 [place] mmol/L 2:06 PM TRANSFER KNITTER Chloride, P 98 98 - 107 03/12/2020 [place] mmol/L 2:06 PM TRANSFER KNITTER Bicarbonate, P 28 22 - 29 03/12/2020 [place] mmol/L 2:06 PM TRANSFER KNITTER Anion Gap, P 9 7 - 15 03/12/2020 [place] 2:06 PM TRANSFER KNITTER BUN (Blood Urea 14 8 - 24 03/12/2020 [place] Nitrogen), P mg/dL 2:06 PM TRANSFER KNITTER Creatinine 1.17 0.74 - 03/12/2020 [place] 1.35 mg/dL 2:06 PM TRANSFER KNITTER eGFR-Black/Afric 74 >=60 03/12/2020 [facility] an Gabonese mL/min/BSA 2:06 PM TRANSFER KNITTER Comment: ----ADDITIONAL INFORMATION---- Estimated GFR calculated using the 2009 CKD_EPI creatinine equation. eGFR Non-Black/ 64 >=60 mL/min/BSA 2:06 PM TRANSFER KNITTER [place] Comment: ----ADDITIONAL INFORMATION---- Estimated GFR calculated using the 2009 CKD_EPI creatinine equation. Calcium, Total, P 9.9 8.8 - 10.2 mg/dL 03/12/2020 2:06 PM TRANSFER KNITTER [place] Glucose, P 130 70 - 140 mg/dL 03/12/2020 2:06 PM TRANSFER KNITTER O ALEXYS Specimen Anatomical Collection Method Collection Time Receive d Time (Source) Location / / Volume Laterality Blood (Blood, 03/12/2020 11:55 03/12/2020 1:34 Venous) AM TRANSFER KNITTER PM TRANSFER KNITTER Lucy Morales APRN, C.N.P., D.N.P. LAB BLOOD ADD-ON Performing Organization Address City/State/ZIP Code Phon e Number [facility]- [address] [place] [address] [facility] [place] [address] System in [place] [address] (ABNORMAL) Hemoglobin A1c (03/12/2020 11:55 AM TRANSFER KNITTER) P athologist Signature Hemoglobin A1c, 7.3 (H) 4.2 - 5.6 03/12/2020 [place] B % 2:01 PM TRANSFER KNITTER Comment: Hemoglobin A1c values greater than or eq ual to 6.5 percent are diagnostic for diabetes mellitus. ?? Diagnosis should be confirmed by repeat testing. ??In diabet ic patients, HbA1c goals should be discussed with healthcar e provider. Specimen Anatomical Collection Method Collection Time Receive d Time (Source) Location / / Volume Laterality Blood (Blood, 03/12/2020 11:55 03/12/2020 1:34 Venous) AM TRANSFER KNITTER PM TRANSFER KNITTER Loren Eller APRN.N.P., D.N.P. 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 [address] [place] [phone] documented as of this encounter
--- OUTSIDE RECORDS SUMMARY | 2022-02-17 12:16 | XMS_ITS | Encounter Summary ---
:1950 Author Organization [facility] Address [address] [place] [address] Care Team Providers Name Role Phone Caryn Hayward P.AMichelle-CMichelle Primary Care Provider Reason for Visit Reason Comments Med Refill Encounter Details Date Type Department Care Team Description 08/23/2020 Refill Department of Family Medicine, Caryn Roca P.AMichelle-CMichelle Med Refill [facility], [facility], [address] [place] [phone] [address] [place] [address] [facility] [phone] Social History Tobacco Use Types Packs/Day Years [...] Office Visit Cardiovascular Disease Blas Peck M.D. [address] [place] [phone] (Wo rk) documented as of this encounter Visit Diagnoses Not on filedocumented in this encounter Additional Health Concerns Assessment Noted Time PHQ-9 Depression Total Score: 1 10/31/2019 2:00 PM CDT documented as of this encounter Care Teams Shotblast Operator Relationship Specialty Start Date End Date Caryn Hayward P.A.-C. PCP - General 07/25/20 09/19/[address] [phone] documented as of this encounter
--- OUTSIDE RECORDS SUMMARY | 2022-02-17 12:16 | XMS_ITS | Encounter Summary ---
:1950 Author Organization [facility] Address [address] [place] [address] Care Team Providers Name Role Phone Lucy Morales APRN C.N.PMichelle, D.N.P. Primary Care Provider Reason for Referral Outpatient (Routine) - Closed Specialty Diagnoses / Procedures Referred By Contact Refer red To Contact Cardiovascular Disease Blas Peck [facility] Yogesh.DMichelle [address] [place] [address] Referral ID Status Reason Start Date Expiration Date Visits Requ ested Visits Authorized [id number] Closed 12/07/2019 12/06/2020 1 1 Outpatient (Routine) - Closed Specialty Diagnoses / Procedures Referred By Contact Refer red To Contact Diagnoses Dyspnea On Exertion Coronary Arterial Bypass Graft Status Post Personal History Blas Peck M.D. [facility] Procedures Echo Transthoracic (TTE) [address] [place] [address] Referral ID Status Reason Start Date Expiration Date Visits Requ ested Visits Authorized [id number] Closed 12/07/2019 12/06/2020 1 1 Outpatient (Routine) - Closed Specialty Diagnoses / Procedures Referred By Contact Refer red To Contact Diagnoses Dyspnea On Exertion Coronary Arterial Bypass Graft Status Post Personal History Blas Peck M.D. [facility] Procedures ECG 12 Lead [address] [facility] [place] [address] Referral ID Status Reason Start Date Expiration Date Visits Requ ested Visits Authorized [id number] Closed 12/07/2019 12/06/2020 1 1 Reason for Visit Reason Comments Coronary Artery Disease Shortness of Breath Outpatient (Routine) - Closed Specialty Diagnoses / Procedures Referred By Contact Refer red To Contact Cardiovascular Disease Blas Peck [facility] MMichelleDMichelle [address] [place] [address] Referral ID Status Reason Start Date Expiration Date Visits Requ ested Visits Authorized [id number] Closed 11/22/2018 11/22/2019 1 1 Encounter Details Date Type Department Care Team Description 12/07/2019 Office Visit Department of Blas Peck Dyspnea On Exertion (Primary Dx); Cardiovascular Diseases Denise Manley Coronary Arterial Bypass Graft Status Po st Personal History in [facility] [address] [facility] [place] [facility] [place] [phone] Social History Tobacco Use Types Packs/Day [...] Sign Reading Time Taken Comments Blood Pressure 101/67 12/07/2019 8:42 AM CDT Pulse 85 12/07/2019 8:42 AM CDT Temperature 36.2 ??C (97.2 ??F) 12/07/2019 8:37 AM CDT Respiratory Rate 14 12/07/2019 8:37 AM CDT Oxygen Saturation 98% 12/07/2019 8:37 AM CDT Inhaled Oxygen Concentration - - Weight 94.7 kg (208 lb 12.4 oz) 12/07/2019 8:37 AM CDT Height 173.5 cm (5' 8.31) 12/07/2019 8:37 AM CDT Body Mass Index 31.46 12/07/2019 8:37 AM CDT documented in this encounter Progress Notes Blas Peck M.D. - 12/07/2019 8:30 AM CDT ASSESSMENT / PLAN 1. ??Coronary artery disease. ?- Status post CABG 4-vessel, [place] 2014. ?- Cardiopulmonary NST 07/2017 stress ECG negative for ischemia; medium primarily fixed defect c/w infarction involving the inferior and inferolateral segments, the inferolateral defect has mild associated ischemia; limited peak VO2 with cardiac impairment to exercise; reasons for low peak view to likely include excess weight, limited heart reserve, impaired cardiac output; LVEF 68% at rest. 2. Dyspnea on exertion. 3. ??Mild RVE with mildly reduced systolic function by ECHO 05/2017; possibly improved in 2018. ?? 4. Hypertension. 5. ??Hyperlipidemia. 6. ??Obesity, BMI 31.5. 7. ??Obstructive sleep apnea. Not on CPAP. 8. ??History of hyponatremia. 9. ??History of panic attacks, depression/anxiety 10. ??Irritable??bowel syndrome. 11. ??Osteoarthritis. 12. ??Diabetes mellitus type 2 with neuropathy 13. Tobacco use disorder, pipe smoking. 14. Erectile dysfunction. 15. BPH and paraphimosis. Sent to urology by PCP September 2019 ?? Coronary artery disease. No recurrence of chest discomfort. Occasional anxiety attacks are improved with the use of lorazepam PRN. Stable dyspnea on exertion, see below. He continues to be limited by lower abdominal discomfort and knee pain. Euvolemic on exam. ??We will continue with medical therapy and risk modification. Excellent lipid (LDL 59, TG 85 10/2019) and hypertension control. Continue follow up and management with PCP. Latest A1c 8.3; improved from last year. Managed by endocrinology. Thepatient agrees to call us in case of worsening symptoms for additional testing. ?? Dyspnea exertion. ??Multifactorial. ??[place] heart Association class 2. ??No evidence of volume overload on exam or based on prior labs (BNP 99 05/2017).?? As previously discussed, his prior echo??was not suggestive of constriction and normal filling pressure at rest.?Cardiopulmonary stress test suggested some cardiac limitations to exercise as well. ??Still, deconditioning and obesity??are??likely to be??playing an important??role. He has been loosing weight but still sedentary lifestyle. ??Cessation of tobacco use previously recommended. ?? Right ventricular abnormalities on echo. Normal RV size with mildly decreased systolic function on echocardiogram from 2019.?No pulmonary hypertension associated. ??These findings are??more likely secondary to obesity and untreated obstructive sleep apnea. ??We??again recommended follow-up with primary care provider with consideration for resumption of CPAP therapy. ??We will repeat an echocardiogram in 1 year to reassess his right ventricular size and function. ? Lower abdominal discomfort, present for approximately 5 years. This does not appear to be ischemia as improved with food and psyllium. No significant abnormalities on imaging (CT/MRI 2019). No AAA on US 2018. Seen by general surgeon but no indication for surgery. Continue follow up with PCP and consider GI input for functional GI abnormalities, if clinically indicated. ?? PLAN: #1 Dyspnea On Exertion #2 Coronary Arterial Bypass Graft Status Post Personal History Other orders - Cardiovascular Disease office visit (clinic) - ECG 12 Lead; Future; Expected date: 12/06/2020 - Echo Transthoracic (TTE); Future; Expected date: 12/06/2020 (Before next visit) - Cardiovascular Disease office visit (clinic); Future; Expected date: 12/06/2020 - Follow up with Cardiology in 12 months or call us sooner in case of problems or concerns. The patient expressed understanding of the information discussed during the visit today and agreement with the plan. CARDIOLOGY SUBSEQUENT VISIT Location: [facility]. SUBJECTIVE CHIEF COMPLAINT Office follow-up. HISTORY OF PRESENT ILLNESS Mr. Elvis Dawkins is a very pleasant 69 y.o. male who presents to [facility] for follow-up. His primary care provider is Lucy Morales APRN, Jesus, Ebony.N.P.. Last seen by me onNovember 2018. Presenting without family. I had the pleasure of seeing Mr. Elvis Dawkins in clinic today. He is 69 y.o. years old. The patient presents today with stable CV complaints. No chest pain and stable dyspnea with activities, particularly in humid and hot days. No PND, orthopnea or edema. He continues to complain of abdomina discomfort. Some improvement with food and metamucil. He has untreated ОЛЬГА. Anxiety attacks improved with PRN lorazepam. He was seen by endocrinology for management his diabetes June 2019 with follow-upJuly 2019. Established care with a new primary provider in September 2019. Referred to urology and general surgery. No surgery was recommended. Change in the bowel habit regimen to help constipation was juan mmended. PERTINENT CARDIAC (OR RELATED) STUDIES REVIEWED: Echocardiogram January 2019: 1. Normal left ventricular chamber size. Calculated ejection fraction 59% (estimated 55%). Regional wall motion abnormalities (see graphics). 2. Findings consistent with normal left ventricular filling pressure. 3. Normal right ventricular size. Mildly decreased systolic function (involving the mid and apical segments). Estimated right ventricular systolic pressure 26 mmHg. 4. No significant valvular heart disease. 5. Normal inferior vena cava size with normal inspiratory collapse (>50%). 6. No pericardial effusion. 7. Compared to the report of 06/10/2017 the following changes have occurred: the right ventricular size appears smaller on available images. Side by side comparison of images Performed. Echocardiogram May 2017: 1. Normal left ventricular chamber size and wall thickness. Calculated ejection fraction 56%. Abnormal septal motion, postoperative. 2. Regional wall motion abnormalities were present (see wall motion graphics). 3. Findings consistent with normal left ventricular filling pressure. 4. Mild right ventricular enlargement with mildly decreased systolic function (involving the mid andapical segments). Estimated right ventricle systolic pressure 23 mmHg. 5. No significant valvular heart disease. 6. Normal inferior vena cava size with normal inspiratory collapse (>50%). 7. No pericardial effusion. 8. Compared to the report of 10/26/2015 the following changes have occurred: Mildly decreased right ventricular size with mildly decreased systolic function (true change vs. better RV visualization in the current study). Side by side comparison of images performed.? Current Outpatient Medications Medication Sig ??? aspirin [address] tablet Take 81 mg by mouth 4 (four) times a day with meals and bedtime. ??? atorvastatin (LIPITOR) 20 mg tablet TAKE 1 TABLET BY MOUTH AT BEDTIME ??? blood sugar diagnostic (glucose blood) strips 3 test daily. Whatever is covered by insurance. Dx:E11.9 ??? blood-glucose meter [facility] Dispense glucose meter, test strips, lancing device, [...] gauge x 15/64 syringe 1 Injection daily. ??? lancets Check sugar 3 times daily before meals ??? LANTUS U-100 INSULIN 100 unit/mL injection Inject 0.2 mL (20 Units total) under the skin daily with dinner. Dose increased on 12/31/2018 (Patient taking differently: Inject 20 Units under the skin daily with dinner. Dose increased on 12/31/2018. Patient reports taking 15-17.5 today 08/29/19 ) ??? lisinopril (PRINIVIL,ZESTRIL) 2.5 mg tablet [...] IN 15 MINUTES AND CALL 911 ??? nystatin (NYSTOP) 100,000 unit/gram powder Apply 1 application topically 3 (three) times a day. ??? oxybutynin (DITROPAN-XL) 10 mg 24 hr [...] by mouth daily. ??? aspirin 81 mg chewable tablet Chew 1 tablet daily. ??? PEPPERMINT OIL ORAL Take 1 capsule by mouth as needed. Allergies Allergen Reactions ??? Sertraline Other (see comments) ??? Sulfamethoxazole-Trimethoprim Swelling REVIEW OF SYSTEMS Constitutional: Positive for weight loss of more than 10 pounds. Respiratory: Positive for dyspnea. Cardiovascular: Negative for chest pain, pressure or tightness, swelling in the legs or feet and shortness of breath when lying flat. Gastrointestinal: Positive for abdominal (belly) pain or cramping. Neurological: Negative for loss of consciousness and light-headedness. Psychiatric/Behavioral: Positive for snores loudly. All other systems reviewed and are negative. The following portions of the patient's history were reviewed and updated as appropriate: allergies,current medications, family history, medical history, social history and problem list. OBJECTIVE Vitals: 12/07/19 0837 12/07/19 0842 BP: 100/62 101/67 BP Location: Left arm Right arm Patient Position: Sitting Sitting Cuff Size: Large Large Pulse: 86 85 Resp: 14 Temp: 36.2 ??C TempSrc: Temporal SpO2: 98% Weight: 94.7 kg Height: 173.5 cm BP Readings from Last 3 Encounters: 12/07/19 101/67 11/21/19 109/69 11/10/19 107/69 Wt Readings from Last 3 Encounters: 12/07/19 94.7 kg 11/21/19 98 kg 11/10/19 98 kg Body mass index is 31.46 kg/m??. PHYSICAL EXAMINATION GENERAL: Patient is awake, alert, oriented x3. No acute distress. EYES: No pallor. No icterus. NECK: No jugular venous distention. No carotid bruits. CHEST/LUNGS: No chest deformity. Normal respiratory effort. Good entry bilaterally. No adventitious sounds. CARDIOVASCULAR: Normal rate and regular rhythm. Distant S1 and S2. No murmurs, rubs, or gallops. Negative hepatojugular reflux. ABDOMEN: Protuberant, soft, mild lower abdominal tenderness with no rebound. LOWER EXTREMITIES: Lower extremity warm without edema. UPPER EXTREMITIES: 1+ Radial pulses bilaterally. Normal capillary refill. No cyanosis. NEUROLOGIC: Exam deferred. DIAGNOSTICS I have reviewed the patient's current laboratory, imaging, and other diagnostic studies. Pertinent laboratory studies have been reviewed and are notable for: Hospital Outpatient Visit on 11/10/2019 Component Date Value ??? Glucose, P 11/10/2019 158* ??? Last Intake 11/10/2019 13 ??? Hemoglobin A1c, B 11/10/2019 8.3* ??? Cholesterol, Total, P 11/10/2019 118 ??? Triglycerides, Fasting, P 11/10/2019 85 ??? Cholesterol, HDL, P 11/10/2019 42 ??? Calculated LDL 11/10/2019 59 ??? Non HDL Cholesterol 11/10/2019 76 ??? Aspartate Aminotransfera* 11/10/2019 22 ??? Alanine Aminotransferase* 11/10/2019 16 ??? Hemoglobin 11/10/2019 14.8 ??? Hematocrit 11/10/2019 43.0 ??? Erythrocytes 11/10/2019 4.94 ??? MCV 11/10/2019 87.0 ??? RBC Distrib Width 11/10/2019 13.8 ??? Platelet Count 11/10/2019 167 ??? Leukocytes 11/10/2019 7.9 ??? Sodium, P 11/10/2019 134* ??? Potassium, P 11/10/2019 4.7 ??? Bicarbonate, P 11/10/2019 22 ??? Creatinine, P 11/10/2019 1.05 ??? eGFR Black 11/10/2019 84 ??? eGFR Non-Black 11/10/2019 73 Hospital Outpatient Visit on 10/11/2019 Component Date Value ??? Creatinine, P 10/11/2019 1.03 ??? eGFR Black 10/11/2019 86 ??? eGFR Non-Black 10/11/2019 74 Lab Results Component Value Date CREATININE 1.05 11/10/2019 BUN 8 08/15/2019 NA 134 (L) 11/10/2019 K 4.7 11/10/2019 CL 96 (L) 08/15/2019 CO2 27 10/17/2016 Lab Results Component Value Date LDLCALC 59 11/10/2019 LDLCALC 65 09/22/2018 LDLCALC 54 08/21/2017 Lab Results Component Value Date ALT 16 11/10/2019 ALT 16 04/12/2019 Lab Results Component Value Date HGBA1C 8.3 (H) 11/10/2019 Lab Results Component Value Date TSH 1.5 09/22/2018 Lab Results Component Value Date WBC 7.9 11/10/2019 HGB 14.8 11/10/2019 HCT 43.0 11/10/2019 MCV 87.0 11/10/2019 PLT 167 11/10/2019 Imaging last 30 days: Mr Abdomen Without And With Iv Contrast Result Date: 11/14/2019 Impression: 1. Bilateral renal cysts. No suspicious renal masses. Results for orders placed during the hospital encounter of 07/09/17 DX Chest AP or PA and Lateral 2 Views Narrative EXAM: DX CHEST AP OR PA AND LATERAL 2 VIEWS Impression IMPRESSION: No focal infiltrates or consolidations. Mild prominence of the lung interstitium, likely due to overlying soft tissue density. Postcardiac surgical changes. Degenerative changes of the spine. IMPRESSION/REPORT/PLAN See above. Blas Peck M.D. documented in this encounter Plan of Treatment Upcoming Encounters Date Type Specialty Care Team Description 04/23/2022 Office Visit Cardiovascular Disease Blas Peck M.D. [address] [place] [address] [phone] (Wo rk) Scheduled Referrals Name Type Priority Associated Order Schedule Diagnoses Cardiovascular Disease Outpatient Referral Routine Expected: office visit (clinic) 2020 (Approximate), Expires: 12/06/2022 documented as of this encounter Results (TTE) 2D LIMITED WITH COLOR AND LIMITED DOPPLER (12/12/2020 1:25 PM CDT) [facility] gist Method Time Signature Ejection Fraction 58 MC [...] ssment performed but not reported based upon netbackup engineer judgment). ??Normal right at rial size. ??CARDIAC [...] effusion. For the complete report, see the [employer] Documents. Narrative 12/12/2020 3:10 PM CDT For the complete report, see the [employer] Documents. Final Impressions 1. Normal left ventricular [...] original. For the complete report, see the [employer] Documents. Final Impressions 1. Normal left ventricular [...] ssment performed but not reported based upon netbackup engineer judgment). Normal right atri al size. CARDIAC [...] Documents. Blas Peck M.D. CV ECHO PROCEDURES ECG 12 Lead (12/12/2020 1:24 PM CDT) P athologist Signature Ventricular Rate 77 BPM MUSE ECG/Min [place] Interval 226 ms MUSE QRSD Interval 120 ms MUSE QT Interval 418 ms MUSE QTC Interval 473 ms MUSE P [place] 28 degrees MUSE R [place] 69 degrees MUSE T Wave [place] 57 degrees MUSE Specimen Anatomical Collection Method [...] encounter Visit Diagnoses Diagnosis Dyspnea On Exertion - Primary Coronary Arterial Bypass Graft Status Po st Personal History Dyspnea On Exertion Coronary Arterial Bypass Graft Status Po st Personal History Dyspnea On Exertion Coronary Arterial Bypass Graft Status Po st Personal History documented in this encounter Additional Health Concerns Assessment Noted Time PHQ-9 Depression Total Score: 1 10/31/2019 2:00 PM CDT documented as of this encounter Care Teams Dough Cutting Machine Operator Relationship Specialty Start Date End Date Lucy Morales APRN, C.N.P., PCP - General Internal Medicine 07/1207/24/20 D.N.P. [address] [place] [address] documented as of this encounter
--- OUTSIDE RECORDS SUMMARY | 2022-02-17 12:16 | XMS_ITS | Encounter Summary ---
:1950 Author Organization [facility] Address [address] [place] [address] Care Team Providers Name Role Phone Lucy Morales APRN, C.NRah, D.N.P. Primary Care Provider Reason for Visit Reason Comments Med Refill Encounter Details Date Type Department Care Team Description 04/10/2020 Refill Department of Internal Lucy Morales APRN, Med Refill Medicine in [place], [place]. N.PMichelle [address] [place] [phone] [place] [address] [phone] Social History Tobacco Use Types Packs/Day Years [...] this encounter Miscellaneous Notes Telephone Encounter - Lucy Morales C.N.P., Ebony.N.P. - 04/10/2020 9:56 AM SDV PILOT/NAVIGATOR/DDS OPERATOR RX sent PILOT/NAVIGATOR/DDS OPERATOR Telephone Encounter - Toshia Santizo - 04/10/2020 9:39 AM CST Primary Provider: Lucy Morales C.N.P., Ebony.N.P. Name of Medication: Lorazepam Strength: 1 mg Frequency: 1 tab 2 times daily Pharmacy (include location): [facility] [place] PILOT/NAVIGATOR/DDS OPERATOR documented in this encounter Plan of Treatment Upcoming Encounters Date Type Specialty Care Team Description 04/23/2022 Office Visit Cardiovascular Disease Blas Peck M.D. [address] [place] [phone] (Wo rk) documented as of this encounter Visit Diagnoses Diagnosis Panic Disorder Episodic Paroxysmal Anxie ty documented in this encounter Additional Health Concerns Assessment Noted Time PHQ-9 Depression Total Score: 1 10/31/2019 2:00 PM CDT documented as of this encounter Care Teams Grants Administrator Relationship Specialty Start Date End Date Lucy Morales APRN C.N.P., PCP - General Internal Medicine 07/1207/24/20 D.N.P. [address] [place] [address] documented as of this encounter
--- OUTSIDE RECORDS SUMMARY | 2022-02-17 12:16 | XMS_ITS | Encounter Summary ---
:1950 Author Organization [facility] Address [address] [place] [address] Care Team Providers Name Role Phone Lucy Morales APRN, C.NRah, D.N.P. Primary Care Provider Encounter Details Date Type Department Care Team Description 03/05/2020 Clinical Communication Department of Lucy Morales, Internal Medicine in [place] D.N.P. [address] [phone] Social History Tobacco Use Types Packs/Day Years [...] Office Visit Cardiovascular Disease Blas Peck M.D. [address] [place] [phone] (Wo rk) documented as of this encounter Visit Diagnoses Not on filedocumented in this encounter Additional Health Concerns Assessment Noted Time PHQ-9 Depression Total Score: 1 10/31/2019 2:00 PM CDT documented as of this encounter Care Teams Travel Consultant Relationship Specialty Start Date End Date Lucy Morales APRN, C.N.P., PCP - General Internal Medicine 07/1207/24/20 D.N.P. [address] [place] [address] documented as of this encounter
--- OUTSIDE RECORDS SUMMARY | 2022-02-17 12:16 | XMS_ITS | Encounter Summary ---
:1950 Author Organization [facility] Address [address] [place] [address] Care Team Providers Name Role Phone Caryn Hayward P.A.-C. Primary Care Provider Encounter Details Date Type Department Care Team Description 10/08/2020 Hospital Encounter Department of Caryn Hayward Diabetes Mellitus Type Laboratory Medicine Ekta Anthony 2 With Diabetic in [facility] [address] [facility] ([facility] [address] [place] [phone] Social History Tobacco Use Types Packs/Day Years [...] is covered by insurance. Dx:E11.9 blood-glucose meter [facility] Dispense glucose 1 each 0 10/25 meter, [...] g by mouth 0 ORAL) at bedtime. aspirin [address] tablet Take 81 mg by mouth 0 10/10/2020 4 (four) times a day with meals and bedtime. atorvastatin (LIPITOR) Take 1 tablet (20 [...] 15/64 syringe Lantus U-100 Insulin 100 Inject 20 Units 20 mL 3 201910/10/2020 unit/mL injection under the skin daily with [...] (LOPRESSOR) 25 mg tablet mouth twice daily nitroglycerin DISSOLVE ONE TABLET 25 tablet 0 08/26/2019 (NITROSTAT) 0.4 mg SL UNDER THE TONGUE tablet EVERY 5 MINUTES NEEDED FOR CHEST PAIN. DO NOT EXCEED A TOTAL OF 3 DOSES IN 15 MINUTES AND CALL 911 oxybutynin (DITROPAN-XL) Take 10 mg by mouth [...] Office Visit Cardiovascular Disease Blas Peck M.D. [address] [place] [address] [place] [phone] (Wo rk) documented as of this encounter Procedures Procedure Name Priority Date/Time Associated Diagnosis Comme nts HEMOGLOBIN A1C, B Routine 10/08/2020 9:31 AM Diabetes Mellitus Type Results for this CDT 2 With Diabetic procedure ar e in Neuropathy the results Hyperglycemic (HCC) section. documented in this encounter Results (ABNORMAL) Hemoglobin A1c (10/08/2020 [...] 10/09/19 21 Venous) CDT 10:28 AM CDT Caryn Hayward P.A.-C. LAB BLOOD ADD-ON Performing Organization Address City/State/ZIP Code Phon e Number [facility] [address] [place] [address] [place] [facility] [place] [address] System in [place] [address] [facility] documented in this encounter Visit Diagnoses Diagnosis 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 Hyperglycemic (HCC) documented in this encounter Additional Health Concerns Assessment Noted Time PHQ-9 Depression Total Score: 1 10/31/2019 2:00 PM CDT documented as of this encounter Care Teams Accounts Payable Professional Relationship Specialty Start Date End Date Caryn Hayward P.ARajani. PCP - General 07/25/20 09/19/212199 [facility] [place] [address] documented as of this encounter
--- OUTSIDE RECORDS SUMMARY | 2022-02-17 12:16 | XMS_ITS | Encounter Summary ---
:1950 Author Organization [facility] Address [address] [place] [address] Care Team Providers Name Role Phone Lucy Morales APRN C.N.P., D.N.P. Primary Care Provider Reason for Visit Reason Comments Med Refill Encounter Details Date Type Department Care Team Description 02/08/2020 Refill Department of Internal Lucy Morales APRN, Med Refill Medicine in [place], D. N.P. [address] [address] [place] [address] [facility] [phone] Social History Tobacco Use Types Packs/Day Years [...] Miscellaneous Notes Telephone Encounter - Lucy Morales APRN, C.N.Aneesh, D.N.P. - 02/08/2020 10:39 AM CDT RX sent Telephone Encounter - Kendall Shah - 02/08/2020 10:11 AM CDT Name of Medication: Lorazepam Primary Provider: Lucy Morales APRN, C.N.PMichelle, D.N.P. Strength: 1mg Frequency: 1-2 tablets as needed for anxiety Pharmacy (include location): [facility] * Patient is asking for a 60 day of this medication. Patient stated that 30 days is not enough of this medication and is asking for 60 days instead for anxiety documented in this encounter Plan of Treatment Upcoming Encounters Date Type Specialty Care Team Description 04/23/2022 Office Visit Cardiovascular Disease Blas Peck M.D. [address] [facility] [place] [phone] (Wo rk) documented as of this encounter Visit Diagnoses Diagnosis Panic Disorder Episodic Paroxysmal Anxie ty documented in this encounter Additional Health Concerns Assessment Noted Time PHQ-9 Depression Total Score: 1 10/31/2019 2:00 PM CDT documented as of this encounter Care Teams Computer Technical Support Specialist Relationship Specialty Start Date End Date Lucy Morales APRN, C.N.P., PCP - General Internal Medicine 07/1207/24/20 D.N.P. [address] [place] [phone] documented as of this encounter
--- OUTSIDE RECORDS SUMMARY | 2022-02-17 12:16 | XMS_ITS | Encounter Summary ---
:1950 Author Organization [facility] Address [address] [place] [address] Care Team Providers Name Role Phone Lucy Morales APRN, C.NRah, D.N.P. Primary Care Provider Reason for Visit Reason Comments Med Refill Encounter Details Date Type Department Care Team Description 03/26/2020 Refill Department of Internal Lucy Morales APRN, Med Refill Medicine in [place], D. N.PMichelle [address] [address] [place] [address] [facility] [phone] Social History Tobacco Use Types Packs/Day Years [...] Encounter - Lucy Morales C.N.P., Ebony.N.P. - 03/26/2020 8:58 AM WAREHOUSE ADMINISTRATIVE ASSISTANT RX sent HOUSE ADMINISTRATIVE ASSISTANT Telephone Encounter - Nina Carrion Daphne - 03/26/2020 8:38 AM CST Lab Results Component Value Date HGBA1C 7.3 (H) 03/12/2020 HOUSE ADMINISTRATIVE ASSISTANT documented in this encounter Plan of Treatment Upcoming Encounters Date Type Specialty Care Team Description 04/23/2022 Office Visit Cardiovascular Disease Blas Peck M.D. [facility] [place] [phone] (Wo rk) documented as of this encounter Visit Diagnoses Not on filedocumented in this encounter Additional Health Concerns Assessment Noted Time PHQ-9 Depression Total Score: 1 10/31/2019 2:00 PM CDT documented as of this encounter Care Teams Director Employment Relationship Specialty Start Date End Date Lucy Morales APRN, C.N.P., PCP - General Internal Medicine 07/1207/24/20 D.N.P. [address] [phone] documented as of this encounter
--- OUTSIDE RECORDS SUMMARY | 2022-02-17 12:16 | XMS_ITS | Encounter Summary ---
:1950 Author Organization [facility] Address [address] [place] [address] Care Team Providers Name Role Phone Lucy Morales APRN C.N.PMichelle, NanNMichellePMichelle Primary Care Provider Encounter Details Date Type Department Care Team Description 03/12/2020 Hospital Encounter Department of Lucy Morales Diabet es Mellitus Laboratory Medicine BRIAN Serna C.N.PMichelle, Type 2 With Diabetic in [place]. Neuropathy [place] [address] [place] [address] Blvd Hyperglycemic (HCC) [address] [place] [phone] Social History Tobacco Use Types Packs/Day [...] Chew 1 tablet daily. 0 07/09/[address] tablet Take 81 mg by mouth 0 10/10/2020 4 (four) times a day with meals and bedtime. atorvastatin (LIPITOR) TAKE 1 TABLET BY 90 tablet 3 020 08/23/2020 20 mg tablet MOUTH AT BEDTIME dulaglutide (Trulicity) Inject 0.5 mL (1.5 2 mL 11 10/1301/14/2021 1.5 mg/0.5 mL pen mg total) under the injector injection skin every 7 (seven) days. insulin syringe-needle 1 Injection daily. 100 Syringe 3 04/201803/26/2020 U-100 0.3 mL 31 gauge x 15/64 syringe Lantus U-100 Insulin Inject 20 Units 20 mL 3 02/17/2020 10/10/2020 100 unit/mL injection under the skin daily with dinner. lisinopril TAKE 1 TABLET BY 90 tablet 3 05/19/2019 01/15/20 21 (PRINIVIL,ZESTRIL) 2.5 MOUTH IN THE MORNING mg tablet LORazepam (ATIVAN) 1 mg Take 1 tablet (1 mg 60 tablet 0 04/10/2020 tabletIndications: total) by mouth 2 Panic Disorder [...] 1 tablet (10 mg 90 tablet 3 11/16/2019 04/2 06/2020 (DITROPAN-XL) 10 mg 24 total) by mouth [...] Office Visit Cardiovascular Disease Blas Peck M.D. [address] [place] [phone] (Wo rk) documented as of this encounter Procedures Procedure Name Priority Date/Time Associated Diagnosis Comme nts HEMOGLOBIN A1C, B Routine 03/12/2020 11:55 Diabetes Mellitus T ype Results for this AM BAGGAGE SCREENER 2 With Diabetic procedure ar e in Neuropathy the results Hyperglycemic (HCC) section. BASIC METABOLIC Routine 03/12/2020 11:55 Diabetes Mellitus Typ e Results for this PANEL, S/P AM BAGGAGE SCREENER 2 With Diabetic procedure ar e in Neuropathy the results Hyperglycemic (HCC) section. documented in this encounter Results Basic Metabolic Panel (03/12/2020 11:55 AM BAGGAGE SCREENER) P athologist Signature Potassium, P 4.4 3.6 - 5.2 03/12/2020 [place] mmol/L 2:06 PM BAGGAGE SCREENER Sodium, P 135 135 - 145 03/12/2020 [place] mmol/L 2:06 PM BAGGAGE SCREENER Chloride, P 98 98 - 107 03/12/2020 [place] mmol/L 2:06 PM BAGGAGE SCREENER Bicarbonate, P 28 22 - 29 03/12/2020 [place] mmol/L 2:06 PM BAGGAGE SCREENER Anion Gap, P 9 7 - 15 03/12/2020 [place] 2:06 PM BAGGAGE SCREENER BUN (Blood Urea 14 8 - 24 03/12/2020 [place] Nitrogen), P mg/dL 2:06 PM BAGGAGE SCREENER Creatinine 1.17 0.74 - 03/12/2020 [place] 1.35 mg/dL 2:06 PM BAGGAGE SCREENER eGFR-Black/Afric 74 >=60 03/12/2020 [place] an Mexican mL/min/BSA 2:06 PM BAGGAGE SCREENER Comment: ----ADDITIONAL INFORMATION---- Estimated GFR calculated using the 2009 CKD_EPI creatinine equation. eGFR Non-Black/ 64 >=60 mL/min/BSA 2:06 PM BAGGAGE SCREENER [place] Comment: ----ADDITIONAL INFORMATION---- Estimated GFR calculated using the 2009 CKD_EPI creatinine equation. Calcium, Total, P 9.9 8.8 - 10.2 mg/dL 03/12/2020 2:06 PM BAGGAGE SCREENER [place] Glucose, P 130 70 - 140 mg/dL 03/12/2020 2:06 PM BAGGAGE SCREENER O ALEXYS Specimen Anatomical Collection Method Collection Time Receive d Time (Source) Location / / Volume Laterality Blood (Blood, 03/12/2020 11:55 03/12/2020 1:34 Venous) AM BAGGAGE SCREENER PM BAGGAGE SCREENER Lucy Morales APRN C.N.P., D.N.P. LAB BLOOD ADD-ON Performing Organization Address City/State/ZIP Code Phon e Number [facility]- [address] [place] [address] [place] [address] System in [place] [address] (ABNORMAL) Hemoglobin A1c (03/12/2020 11:55 AM BAGGAGE SCREENER) athologist Signature Hemoglobin A1c, 7.3 (H) 4.2 - 5.6 03/12/2020 [place] B % 2:01 PM BAGGAGE SCREENER Comment: Hemoglobin A1c values greater than or eq ual to 6.5 percent are diagnostic for diabetes mellitus. ?? Diagnosis should be confirmed by repeat testing. ??In diabet ic patients, HbA1c goals should be discussed with healthcar e provider. Specimen Anatomical Collection Method Collection Time Receive d Time (Source) Location / / Volume Laterality Blood (Blood, 03/12/2020 11:55 03/12/2020 1:34 Venous) AM BAGGAGE SCREENER PM BAGGAGE SCREENER Lucy Morales APRN C.N.P., D.N.P. 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 [address] [place] [address] documented as of this encounter
--- OUTSIDE RECORDS SUMMARY | 2022-02-17 12:16 | XMS_ITS | Encounter Summary ---
:1950 Author Organization [facility] Address [address] [place] [address] Care Team Providers Name Role Phone Lucy Morales APRN C.N.PMichelle, D.N.P. Primary Care Provider Reason for Visit Reason Comments Med Refill Encounter Details Date Type Department Care Team Description 03/12/2020 Refill Department of Internal Lucy Morales APRN, Med Refill Medicine in [place], C.N.Aneesh, D. N.P. [address], [place] [address] [place] [address] [phone] Social History Tobacco Use Types Packs/Day Years [...] encounter Miscellaneous Notes Telephone Encounter - Brenda Gruber R.N. - 03/12/2020 1:08 PM FILTER ASSEMBLER Patient notified. ER ASSEMBLER Telephone Encounter - Lucy Morales C.N.P., Ebony.N.P. - 03/12/2020 9:14 AM FILTER ASSEMBLER RX sent ER ASSEMBLER Telephone Encounter - Carolyn Mcgraw - 03/12/2020 9:05 AM CST Name of Medication: Lorazepam (Ativan) Provider: Lucy Morales C.N.P., Ebony.N.PMichelle Strength: 1 mg tablet Frequency: 1 tablet 2 times daily PRN Pharmacy: [facility] Patient is out of medication ER ASSEMBLER documented in this encounter Plan of Treatment Upcoming Encounters Date Type Specialty Care Team Description 04/23/2022 Office Visit Cardiovascular Disease Blas Peck M.D. [address] [place], [place] [phone] (Wo rk) documented as of this encounter Visit Diagnoses Diagnosis Panic Disorder Episodic Paroxysmal Anxie ty documented in this encounter Additional Health Concerns Assessment Noted Time PHQ-9 Depression Total Score: 1 10/31/2019 2:00 PM CDT documented as of this encounter Care Teams Manager Product Relationship Specialty Start Date End Date Lucy Morales APRN C.N.P., PCP - General Internal Medicine 07/1207/24/20 D.N.P. [address] [place] [phone] documented as of this encounter
--- OUTSIDE RECORDS SUMMARY | 2022-02-17 12:16 | XMS_ITS | Encounter Summary ---
:1950 Author Organization [facility] Address [address] [place] [address] Care Team Providers Name Role Phone Lucy Morales APRN C.N.PMichelle, D.N.P. Primary Care Provider Reason for Referral Outpatient (Routine) - Closed Specialty Diagnoses / Procedures Referred By Contact Refer red To Contact Urology Sabrina Valadez APRN, C.N.P. [facility] Region [address] [place] [phone] Referral ID Status Reason Start Date Expiration Date Visits Requ ested Visits Authorized [id number] Closed 07/09/2020 07/09/2021 1 1 Reason for Visit Reason Comments Follow-up 1 year Benign Prostatic Hypertrophy Prostatitis Abdominal Pain lower abdominal pressure las t 6 months Outpatient (Routine) - Closed Specialty Diagnoses / Procedures Referred By Contact Refer red To Contact Urology Sabrina Valadez APRN, C.N.P. [facility] [address] [place] [phone] Referral ID Status Reason Start Date Expiration Date Visits Requ ested Visits Authorized [id number] Closed 05/23/2019 05/22/2020 1 1 Encounter Details Date Type Department Care Team Description 07/09/2020 Office Visit Department of Urology Sabrina Valadez, Overactive Bladder (Primary Dx); in BRIAN Owen, C.N.P. Benign Prostatic Hyperplasia With Lower Urinary Tract Symptom [place] [address] [place] [phone] Social History Tobacco Use Types Packs/Day Years [...] Taken Comments Blood Pressure - - Pulse 88 07/09/2020 1:38 PM CDT Temperature 37.2 ??C (99 ??F) 07/09/2020 1:38 PM CDT Respiratory Rate - - Oxygen Saturation 99% 07/09/2020 1:38 PM CDT Inhaled Oxygen Concentration - - Weight - - Height - - Body Mass Index - - documented in this encounter Progress Notes Sabrina Valadez APRN, C.N.P. - 07/09/2020 2:00 PM CDT SUBJECTIVE CHIEF COMPLAINT/REASON FOR VISIT BPH, Chronic Prostatitis HISTORY OF PRESENT ILLNESS Elvis is a pleasant 70-year-old male here today for a 1 year follow-up for Benign Prostatic Hypertrophy and chronic prostatitis. He takes tamsulosin 0.4 mg oral capsule, 1 capsule daily and oxybutynin 10 mg XL daily. His last bout of prostatitis was in July 2019 and was treated with levofloxacin 500 mg tablet daily for 28 days. He does not feel that the antibiotics for prostatitis are ever very helpful with his symptoms. His symptoms very from day-to-day, he does not feel that he has infection at this time. I-PSS Urinary Symptoms Score: 21 I-PSS Quality of Life Score: 3 He also has history of paraphimosis. He is uncircumcised and chooses to wear his foreskin retracted.He does not wish to go forward with circumcision. The following portions of the patient's history were reviewed and updated as appropriate: allergies,current medications, family history, medical history, social history, surgical history and problem list. REVIEW OF SYSTEMS Gastrointestinal: Positive for constipation. Takes Miralax and Metamucil daily. Genitourinary: Blood sugars in 100-130 ranges. Sometimes stream starts and stops in the morning. Some lower abdominal pain before urination. Stream is slow and thin at times. OBJECTIVE Vitals: 07/09/20 1338 Pulse: 88 Temp: 37.2 ??C SpO2: 99% TempSrc: Temporal PHYSICAL EXAM Vitals and nursing [...] ulcers, erythema, rashes, or pigmented lesions noted. MALE: Penis is uncircumcised without abnormal skin, contour changes or plaques. Patient wears foreskin retracted, able to move foreskin freely. Meatus appears normal and is located in normal position on glans penis. No urethral discharge. Testicles of normal size, descended bilaterally with no masses or tenderness. No thickening or tenderness of the epididymis or spermatic cords. Bilateral inguinal exam reveals no hernia and no inguinal lymphadenopathy. PROSTATE: Perianal area intact without lesions or visible hemorrhoids. No fissures or fistulas. Goodsphincter tone, no masses. Prostate is symmetrical, smooth, enlarged, non-tender and without nodules. Seminal vesicles are non- palpable. Approximate size is 35 grams. Extremities: Warm, without edema or ulcerations. Musculoskeletal: [place] is symmetrical and balanced. DIAGNOSTIC Uroflow is performed utilizing calibrated electronic equipment. Patient voided 101 mL over 53 seconds. Peak flow 5 mL/sec, average flow 2 mL/sec. Postvoid residual by bladder scan 123 mL. ASSESSMENT / PLAN #1 BPH #2 Overactive Bladder Continue with Flomax daily, refills are sent to his pharmacy. If he has change in urinary symptoms or other urological concerns he should contact us. We will otherwise see him in 1 year for follow-up. Signed by: Sabrina Valadez APRN, C.N.P. 07/09/2020 1:32 PM CDT documented in this encounter Plan of Treatment Upcoming Encounters Date Type Specialty Care Team Description 04/23/2022 Office Visit Cardiovascular Disease Blas Peck M.D. [address] [place] [phone] (Wo rk) Scheduled Referrals Name Type Priority Associated Diagnoses Order [facility] Urology office Outpatient Referral Routine Expect ed: visit (clinic) 07/09/2021 (Approximate), Expires: 07/10/2023 documented as of this encounter Visit Diagnoses Diagnosis Overactive Bladder - Primary Benign Prostatic Hyperplasia With Lower Urinary Tract Symptom documented in this encounter Additional Health Concerns Assessment Noted Time PHQ-9 Depression Total Score: 1 10/31/2019 2:00 PM CDT documented as of this encounter Care Teams Spring Intern Relationship Specialty Start Date End Date Lucy Morales APRN, C.N.P., PCP - General Internal Medicine 07/1207/24/20 D.N.P. [address] [place] [address] documented as of this encounter
--- OUTSIDE RECORDS SUMMARY | 2022-02-17 12:16 | XMS_ITS | Encounter Summary ---
:[address] [facility] Address [address] [place] [address] Care Team Providers Name Role Phone Caryn Hayward P.A.-C. Primary Care Provider Encounter Details Date Type Department Care Team Description 10/08/2020 Hospital Encounter Department of Caryn Hayward Diabetes Mellitus Type Laboratory Medicine Ekta Anthony 2 With Diabetic in [facility] [address] [facility] (HCC) [address] [place] [phone] Social History Tobacco Use Types Packs/Day Years [...] is covered by insurance. Dx:E11.9 blood-glucose meter [facility] Dispense glucose 1 each 0 [...] Office Visit Cardiovascular Disease Blas Peck M.D. [address] [place] [phone] (Wo rk) documented as of this encounter Procedures Procedure Name Priority Date/Time Associated Diagnosis Comme nts ALBUMIN, RANDOM, U Routine 10/08/2020 9:30 AM Diabetes Mellitu s Type Results for this CDT 2 With Diabetic procedure ar e in Neuropathy the results Hyperglycemic (HCC) section. documented in this encounter Results (ABNORMAL) Albumin, Random, Urine (10/08/2020 9:30 AM [...] Laterality Urine (Urine, 10/08/2020 9:30 AM 10/09/19 21 Clean Catch) CDT 10:28 AM CDT Caryn Hayward P.A.-C. 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 PCP - General 07/25/20 09/19/212199 [place] [phone] documented as of this encounter
--- OUTSIDE RECORDS SUMMARY | 2022-02-17 12:16 | XMS_ITS | Encounter Summary ---
:1950 Author Organization [facility] Address [address] [place] [address] Care Team Providers Name Role Phone Lucy Morales APRN, C.NRah, D.N.P. Primary Care Provider Encounter Details Date Type Department Care Team Description 03/05/2020 Clinical Communication Department of Lucy Morales, Internal Medicine [place] D.N.P. [address] [phone] Social History Tobacco Use Types Packs/Day Years [...] Office Visit Cardiovascular Disease Blas Peck M.D. [address] [place] [phone] (Wo rk) documented as of this encounter Visit Diagnoses Not on filedocumented in this encounter Additional Health Concerns Assessment Noted Time PHQ-9 Depression Total Score: 1 10/31/2019 2:00 PM CDT documented as of this encounter Care Teams Medical Record Administrator Relationship Specialty Start Date End Date Lucy Morales APRN, C.N.P., PCP - General Internal Medicine 07/1207/24/20 D.N.P. [address] [place] [address] documented as of this encounter
--- OUTSIDE RECORDS SUMMARY | 2022-02-17 12:17 | XMS_ITS | Encounter Summary ---
:1950 Author Organization [facility] Address [address] [place] [address] Care Team Providers Name Role Phone Lucy Morales APRN C.N.PMichelle, D.N.PMichelle Primary Care Provider Encounter Details Date Type Department Care Team Description 10/11/2019 Hospital Encounter Department of Lucy Morales Lower Abdominal Pain Laboratory Medicine BRIAN Serna C.N.PMichelle, Unsp ecified in Nan OwenNMichelleP. [address] [phone] Social History Tobacco Use Types Packs/Day [...] AT BEDTIME dulaglutide (Trulicity) Inject 0.5 mL (0.75 7 mL 3 11/10/2019 0.75 mg/0.5 mL mg total) under the injection skin every 7 (seven) days. insulin syringe-needle 1 Injection daily. 100 Syringe 3 1104/201803/26/2020 U-100 0.3 mL 31 gauge x 15/64 syringe LANTUS U-100 INSULIN Inject 0.2 mL (20 20 mL 3 01/01/20 19 02/17/2020 100 unit/mL injection Units total) under the skin daily with dinner. Dose increased on 12/31/2018 lisinopril TAKE 1 TABLET BY 90 tablet 3 05/19/2019 01/15/20 21 (PRINIVIL,ZESTRIL) 2.5 MOUTH IN THE MORNING mg tablet LORazepam (ATIVAN) 0.5 Take 1 tablet (0.5 30 tablet 0 08/2811/01/2019 mg tabletIndications: mg total) by mouth 2 Panic Disorder Episodic [...] Visit Cardiovascular Disease Blas Peck M.D. [address] [place] [phone] (Wo rk) documented as of this encounter Procedures Procedure Name Priority Date/Time Associated Diagnosis Comme nts CREATININE WITH Routine 10/11/2019 10:00 Lower Abdominal Pain Results for this EGFR, S/P AM CDT Unspecified procedure are i n the results section. documented in this encounter Results Creatinine with Estimated GFR (10/11/2019 10:00 AM CDT) P athologist Signature Creatinine 1.03 0.74 - 10/11/2019 [place] 1.35 mg/dL 2:20 PM CDT eGFR-Black/Afric 86 >=60 10/11/2019 [place] an Lithuanian mL/min/BSA 2:20 PM CDT Comment: ----ADDITIONAL INFORMATION---- Estimated GFR calculated using the 2009 CKD_EPI creatinine equation. eGFR Non-Black/ 74 >=60 mL/min/BSA 2:20 PM CDT OW[place] Comment: ----ADDITIONAL INFORMATION---- Estimated GFR calculated using the 2009 CKD_EPI creatinine equation. Specimen Anatomical Collection Method Collection Time Receive d Time (Source) Location / / Volume Laterality Blood (Blood, 10/11/2019 10:00 10/11/2019 1:01 Venous) AM CDT PM CDT Loren Eller APRN.N.P., D.N.P. LAB BLOOD ADD-ON Performing Organization Address City/State/ZIP Code Phon e Number [facility]- [address] [place] [address] [facility] [place] [address] System in [place] [address] documented in this encounter Visit Diagnoses Diagnosis Lower Abdominal Pain Unspecified documented in this encounter Additional Health Concerns Assessment Noted Time PHQ-9 Depression Total Score: 7 09/29/2019 11:12 AM CD T documented as of this encounter Care Teams Patient Safety Officer Relationship Specialty Start Date End Date Lucy Morales APRN, C.N.P., PCP - General Internal Medicine 07/1207/24/20 D.N.P. [address] [place] [phone] documented as of this encounter
--- OUTSIDE RECORDS SUMMARY | 2022-02-17 12:17 | XMS_ITS | Encounter Summary ---
:1950 Author Organization [facility] Address [address] [place] [address] Care Team Providers Name Role Phone Lucy Morales APRN C.N.PMichelle, D.N.P. Primary Care Provider Reason for Visit Outpatient (Routine) - Closed Specialty Diagnoses / Procedures Referred By Contact Refer red To Contact Endocrinology Raj Navarro M.D., [facility] Ph.D. [address] [place] [phone] Referral ID Status Reason Start Date Expiration Date Visits Requ ested Visits Authorized [id number] Closed 10/11/2019 10/10/2020 1 1 Encounter Details Date Type Department Care Team Description 11/10/2019 Office Visit Division of Raj Navarro [facility] Type Endocrinology in [facility], 2 (HCC) (Pr imary Dx) [place], [place] Denise, Ph.D. [address] [place] [address] [place] [phone] [place], [place] [phone] Social History Tobacco Use Types Packs/Day Years [...] Sign Reading Time Taken Comments Blood Pressure 107/69 11/10/2019 11:06 AM CDT Pulse 76 11/10/2019 11:06 AM CDT Temperature - - Respiratory Rate - - Oxygen Saturation - - Inhaled Oxygen Concentration - - Weight 98 kg (216 lb 0.8 oz) 11/10/2019 11:06 AM CDT Height 173.5 cm (5' 8.31) 11/10/2019 11:06 AM CDT Body Mass Index 32.56 11/10/2019 11:06 AM CDT documented in this encounter Patient Instructions Patient InstructionsNairRaj M.D., Ph.D. - 11/10/2019 11:30 AM CDT His glycemic control remains suboptimal but a modest improvement in glucose and weight occurred after starting on 0.75 mg of dulaglutide. He has no adverse effect from the drug. I suggest that he may increase the dose of his dulaglutide to 1.5 mg a day. I also asked him to increase insulin dose to 25 units a day. He will continue to monitor his glucose and his target is achieve a glucose between 100-140 mg/dL before meals. He will continue to check his glucose at 2 times a day. Meanwhile I encouraged him to continue his activities and a healthy diet that we discussed during his last visit. It is not tender early clear whether he has a urinary tract infection although no fever or other symptoms. I order his urine for bacterial culture. I recommended that he may repeat is blood test in 3 months including hemoglobin A1c. If there is improvement he may continue the same that he states he can coordinate with his family doctor. documented in this encounter Consult Notes Raj Navarro M.D., Ph.D. - 11/10/2019 11:30 AM CDT Endocrinology, Diabetes, Metabolism, and Nutrition Initial Consultation REFERRAL Raj Navarro M.D., Ph.D. Date of service: 11/10/2019 Provider: Raj Navarro M.D., Ph.D. SUBJECTIVE CHIEF COMPLAINT / REASON FOR VISIT Elvis Dawkins is a 69 y.o. male who presents for evaluation of diabetes mellitus HISTORY OF PRESENT ILLNESS During his previous visit the we will change it 's treatment to Trulicity 0.75 mg weekly injection. He is tolerating it well and has no adverse effects. He does not have any nausea vomiting or abdominal pain. He seems to have lost a couple of lb but a continued to have problem with his hernia in the inguinal region. He has an appointment to see a surgeon here at [facility] in November. He told me that the his local doctors found that he has some lesion in in his right kidney and they are planning to a CT scan on it. I do not have any information on that from the local physicians. He takes the Lantus 20 units a day and the his glucose in the morning ranges between 170 and sometime 200.. He tries to walk as much as he can when the weather is good but also has a stationary bike at home which he uses whenever he can his hernia is bothering him when he exercises He has some discomfort the in passing urine and he states the its and usually discolored The following portions of the patient's history were reviewed and updated as appropriate: allergies,current medications, family history, medical history, social history, surgical history, problem list. OBJECTIVE BP 107/69 (BP Location: Left arm, Patient Position: Sitting) Pulse 76 Ht 173.5 cm Wt 98 kg BMI 32.56 kg/m?? No detail physical examination done. He continued to has have a substantial abdominal adiposity. LABORATORY RESULTS: His fasting glucose this time is 158 mg/dL and his hemoglobin A1c is 8.3 which is only 0.2 different from his previous 1. His electrolytes are normal and his creatinine is 1.05 witha EGFR of 73. His liver enzymes are normal it his total cholesterol is 118 HDL cholesterol 42 LDL cho lesterol 59 and non HDL cholesterol of 76 ASSESSMENT / PLAN #1 Diabetes Mellitus Type 2 (HCC) His glycemic control remains suboptimal but a modest improvement in glucose and weight occurred after starting on 0.75 mg of dulaglutide. He has no adverse effect from the drug. I suggest that he may increase the dose of his dulaglutide to 1.5 mg a day. I also asked him to increase insulin dose to 25 units a day. He will continue to monitor his glucose and his target is achieve a glucose between 100-140 mg/dL before meals. He will continue to check his glucose at 2 times a day. Meanwhile I encouraged him to continue his activities and a healthy diet that we discussed during his last visit. It is not tender early clear whether he has a urinary tract infection although no fever or other symptoms. I order his urine for bacterial culture. I recommended that he may repeat is blood test in 3 months including hemoglobin A1c. If there is improvement he may continue the same that he states he can coordinate with his family doctor. 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 #17 Overactive Bladder #18 Panic Disorder Episodic Paroxysmal Anxiety #19 Rhinitis Allergic #20 Frequency Urinary #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 documented in this encounter Plan of Treatment Upcoming Encounters Date Type Specialty Care Team Description 04/23/2022 Office Visit Cardiovascular Disease Blas Peck M.D. [address] [place] [phone] (Wo rk) documented as of this encounter Visit Diagnoses Diagnosis Diabetes Mellitus Type 2 (HCC) - Primary documented in this encounter Additional Health Concerns Assessment Noted Time PHQ-9 Depression Total Score: 1 10/31/2019 2:00 PM CDT documented as of this encounter Care Teams Railroad Car Inspector Relationship Specialty Start Date End Date Lucy Morales APRN, C.N.P., PCP - General Internal Medicine 07/1207/24/20 D.N.P. [address] [place] [phone] documented as of this encounter
--- OUTSIDE RECORDS SUMMARY | 2022-02-17 12:17 | XMS_ITS | Encounter Summary ---
:1950 Author Organization [facility] Address [address] [place] [address] Care Team Providers Name Role Phone Andrew Lucy Serna APRN C.N.PMichelle, D.N.P. Primary Care Provider Reason for Referral Outpatient (Routine) - Closed Specialty Diagnoses / Procedures Referred By Contact Refer red To Contact Endocrinology Raj Navarro M.D., [facility] Ph.D. [address] [place] [phone] Referral ID Status Reason Start Date Expiration Date Visits Requ ested Visits Authorized [id number] Closed 10/11/2019 10/10/2020 1 1 Encounter Details Date Type Department Care Team Description 10/11/2019 Orders Only Division of Endocrinology Raj Navarro Di abetes Mellitus Type in [facility] pratik Mendez, 2 (HCC) (Primary Dx) [address] [place] [address] Denise, [place] [phone] [place] [address] [place] [phone] Social History Tobacco Use Types Packs/Day [...] Office Visit Cardiovascular Disease Blas Peck M.D. [address] [place] [address] [place], [place] [phone] (Wo rk) Scheduled Referrals Name Type Priority Associated Order Schedule Diagnoses Endocrinology office Outpatient Referral Routine Expected: visit (clinic) 11/10/2019 (Approximate), Expires: 10/10/2022 documented as of this encounter Results Bicarbonate (11/10/2019 9:07 AM CDT) athologist Signature Bicarbonate, P 22 22 - 29 11/10/2019 [place] mmol/L 11:22 AM CDT Specimen Anatomical Collection Method Collection Time Receive d Time (Source) Location / / Volume Laterality Blood (Blood, 11/10/2019 9:07 AM 11/10/19 20 Venous) CDT 10:28 AM CDT Raj Navarro M.D., Ph.D. LAB BLOOD ADD-ON Performing Organization Address City/[facility]/ZIP Code Phon e Number [facility]- [address] [place] [address] [place] [address] System in [place] [address] Potassium (11/10/2019 9:07 AM CDT) athologist Signature Potassium, P 4.7 3.6 - 5.2 11/10/2019 [place] mmol/L 11:22 AM CDT Specimen Anatomical Collection Method Collection Time Receive d Time (Source) Location / / Volume Laterality Blood (Blood, 11/10/2019 9:07 AM 11/10/19 20 Venous) CDT 10:28 AM CDT Raj Navarro M.D., Ph.D. LAB BLOOD ADD-ON Performing Organization Address City/State/ZIP Code Phon e Number [facility]- [address] [place] [address] [place] [address] System in [place] [address] [place] [address] (ABNORMAL) Sodium (11/10/2019 9:07 AM CDT) athologist Signature Sodium, P 134 (L) 135 - 145 11/10/2019 [place] mmol/L 11:22 AM CDT Specimen Anatomical Collection Method Collection Time Receive d Time (Source) Location / / Volume Laterality Blood (Blood, 11/10/2019 9:07 AM 11/10/19 20 Venous) CDT 10:28 AM CDT K Andrea Navarro M.D., Ph.D. LAB BLOOD ADD-ON Performing Organization Address City/State/ZIP Code Phon e Number [facility]- [address], [place] [address] [facility] [place] [address] System in [place] [address] [place] [address] CBC without Differential (11/10/2019 9:07 AM CDT) athologist Signature Hemoglobin 14.8 13.2 - 11/10/2019 FB60 16.6 g/dL 9:17 AM CDT Hematocrit 43.0 38.3 - 11/10/2019 FB60 48.6 % 9:17 AM CDT Erythrocytes 4.94 4.35 - 11/10/2019 FB60 5.65 9:17 AM CDT x10(12)/L MCV 87.0 78.2 - 11/10/2019 FB60 97.9 fL 9:17 AM CDT RBC Distrib Width 13.8 11.8 - 11/10/2019 FB60 14.5 % 9:17 AM CDT Platelet Count 167 135 - 317 11/10/2019 FB60 x10(9)/L 9:17 AM CDT Leukocytes 7.9 3.4 - 9.6 11/10/2019 FB60 x10(9)/L 9:17 AM CDT Specimen Anatomical Collection Method Collection Time Receive d Time (Source) Location / / Volume Laterality Blood (Blood, 11/10/2019 9:07 AM 11/10/19 20 9:17 Venous) CDT AM CDT Raj Navarro M.D., Ph.D. LAB BLOOD ADD-ON Performing Organization Address City/State/ZIP Code Phon e Number [facility] [address] [place] [address] [facility] FB[facility] [place] [address] System in [place] [address] ALT (Alanine Aminotransferase) (11/10/2019 9:07 AM CDT) [facility] Method Time Signature Alanine 16 7 - 55 11/10/2019 [place] Aminotransferase U/L 11:22 AM CDT (ALT), P Specimen Anatomical Collection Method Collection Time Receive d Time (Source) Location / / Volume Laterality Blood (Blood, 11/10/2019 9:07 AM 11/10/19 20 Venous) CDT 10:28 AM CDT Raj Navarro M.D., Ph.D. LAB BLOOD ADD-ON Performing Organization Address City/[facility]/ZIP Code Phon e Number [facility]- [address] [place] [facility] [place] [address] [place] [address] System in [place] [address] AST (Aspartate Aminotransferase) (11/10/2019 9:07 AM CDT) [facility] Method Time Signature Aspartate 22 8 - 48 11/10/2019 [place] Aminotransferase U/L 11:22 AM CDT (AST), P Specimen Anatomical Collection Method Collection Time Receive d Time (Source) Location / / Volume Laterality Blood (Blood, 11/10/2019 9:07 AM 11/10/19 20 Venous) CDT 10:28 AM CDT Raj Navarro M.D., Ph.D. LAB BLOOD ADD-ON Performing Organization Address City/State/ZIP Code Phon e Number [facility]- [address] [place] [facility] [place] [address] [place] [address] System in [place] [address] Lipid Panel (11/10/2019 9:07 AM CDT) athologist Signature Cholesterol, 118 mg/dL 11/10/2019 [place] Total 11:22 AM CDT Comment: ----REFERENCE VALUE---- Desirable: < 200 Borderline high: 200 - 239 High: > or = 240 Triglycerides 85 mg/dL 11/10/2019 11:22 AM CDT OW AT Comment: ----REFERENCE VALUE---- Normal: <150 Borderline high: 150-199 High: 200-499 Very high: > or =500 Cholesterol, HDL 42 >=40 mg/dL 11/10/2019 11:22 AM CD T [place] Calculated LDL 59 mg/dL 11/10/2019 11:22 AM CDT O ALEXYS Comment: ----REFERENCE VALUE---- Desirable: <100 Above Desirable: 100-129 Borderline high: 130-159 High: 160-189 Very high: > or =190 Cholesterol, Non-HDL, Calculated 76 mg/dL 020 11:22 AM CDT OW[place] Comment: ----REFERENCE VALUE---- Desirable: <130 Above Desirable: 130-159 Borderline high: 160-189 High: 190-219 Very high: > or =220 Specimen Anatomical Collection Method Collection Time Receive d Time (Source) Location / / Volume Laterality Blood (Blood, 11/10/2019 9:07 AM 11/10/19 20 Venous) CDT 10:28 AM CDT K Andrea Navarro M.D., Ph.D. LAB BLOOD ADD-ON Performing Organization Address City/State/ZIP Code Phon e Number [facility]- [address] [place] [address] [facility] [place] [address] System in [place] [address] (ABNORMAL) Hemoglobin A1c (11/10/2019 9:07 AM CDT) P athologist Signature Hemoglobin A1c, 8.3 (H) 4.2 - 5.6 11/10/2019 [place] B % 11:02 AM CDT Comment: Hemoglobin A1c values greater than or eq ual to 6.5 percent are diagnostic for diabetes mellitus. ?? Diagnosis should be confirmed by repeat testing. ??In diabet ic patients, HbA1c goals should be discussed with healthcar e provider. Specimen Anatomical Collection Method Collection Time Receive d Time (Source) Location / / Volume Laterality Blood (Blood, 11/10/2019 9:07 AM 11/10/19 20 Venous) CDT 10:29 AM CDT Authorizing Provider Result Bibiana Navarro M.D., Ph.D. LAB BLOOD ADD-ON Performing Organization Address City/State/ZIP Code Phon e Number [facility]- [address] [place] [facility] [place] [address] [place] [address] System in [place] [address] (ABNORMAL) Glucose, Fasting (11/10/2019 9:07 AM CDT) P athologist Signature Glucose, P 158 (H) 70 - 100 11/10/2019 [place] mg/dL 11:27 AM CDT Last Intake 13 hr 11/10/2019 [place] 10:28 AM CDT Specimen Anatomical Collection Method Collection Time Receive d Time (Source) Location / / Volume Laterality Blood (Blood, 11/10/2019 9:07 AM 11/10/19 20 Venous) CDT 10:28 AM CDT Authorizing Provider Result Bibiana Navarro M.D., Ph.D. LAB BLOOD NON ADD-ON Performing Organization Address City/State/ZIP Code Phon e Number [facility]- [address], [place] [address] [place] [address] System in [place] [address] documented in this encounter Visit Diagnoses Diagnosis Diabetes Mellitus Type 2 (HCC) - Primary documented in this encounter Additional Health Concerns Assessment Noted Time PHQ-9 Depression Total Score: 7 09/29/2019 11:12 AM CD T documented as of this encounter Care Teams Refrigerator Glazier Relationship Specialty Start Date End Date Lucy Morales APRN, C.N.P., PCP - General Internal Medicine 07/1207/24/20 D.N.P. [address] [place] [phone] documented as of this encounter
--- OUTSIDE RECORDS SUMMARY | 2022-02-17 12:17 | XMS_ITS | Encounter Summary ---
:1950 Author Organization [facility] Address [address] [place] [address] Care Team Providers Name Role Phone Lucy Morales APRN C.N.PMichelle, D.N.P. Primary Care Provider Encounter Details Date Type Department Care Team Description 10/10/2019 Clinical Communication Department of Urology Deidre Fajardo in [facility] P.A.-C. [address] [place] [address] Social History Tobacco Use Types Packs/Day Years [...] Office Visit Cardiovascular Disease Blas Peck M.D. [address] [place] [phone] (Wo rk) documented as of this encounter Visit Diagnoses Diagnosis Benign Prostatic Hyperplasia Hypertrophy With Obstruction - Primary Prostatitis documented in this encounter Additional Health Concerns Assessment Noted Time PHQ-9 Depression Total Score: 7 09/29/2019 11:12 AM CD T documented as of this encounter Care Teams Brazing Machine Feeder Relationship Specialty Start Date End Date Andrew, Lucy L, ARTICULATION OFFICER, C.N.P., PCP - General Internal Medicine 07/1207/24/20 HeavenPMichel[place] [address] [place] [address] documented as of this encounter
--- OUTSIDE RECORDS SUMMARY | 2022-02-17 12:17 | XMS_ITS | Encounter Summary ---
:1950 Author Organization [facility] Address [address] [place] [address] Care Team Providers Name Role Phone Andrew Lucy Serna APRN C.N.PMichelle, D.N.P. Primary Care Provider Reason for Visit Reason Comments Follow-up Encounter Details Date Type Department Care Team Description 10/10/2019 Clinical Communication Division of Raj Navarro-up Endocrinology in [place], [place] Denise, Ph.D. [address] [place] [address] [address] [place] [address] [place], [place] [phone] Social History Tobacco Use Types Packs/Day Years [...] encounter Miscellaneous Notes Telephone Encounter - Brenda [place] - 10/19/2019 3:14 PM CDT Annabella- These appointments have been scheduled for . Telephone Encounter - Annabella Sanders - 10/19/2019 11:[address] Navarro, Please see message below that was sent to you on 10/09. Thank you, Annabella Please reply to P RST END Scheduling Telephone Encounter - Annabella Sanders - 10/10/2019 11:53 AM CDT S: Caller/Dept - Patient Phone # - MD - Dr. Navarro B: Patient was last seen on : 06/13/2019 A: Patient would like to schedule a follow up appointment. I don't see an order placed for one. R: Please advise if you would like to see the patient back and if you will be placing orders for a follow up appointment and labs. Thank you, Annabella for Jass Please reply to P RST END Scheduling PASS: Call patient back to schedule documented in this encounter Plan of Treatment Upcoming Encounters Date Type Specialty Care Team Description 04/23/2022 Office Visit Cardiovascular Disease Blas Peck M.D. [address] [place] [phone] (Wo rk) documented as of this encounter Visit Diagnoses Not on filedocumented in this encounter Additional Health Concerns Assessment Noted Time PHQ-9 Depression Total Score: 7 09/29/2019 11:12 AM CD T documented as of this encounter Care Teams Stator Plate Washer Relationship Specialty Start Date End Date Lucy Morales APRN, C.N.P., PCP - General Internal Medicine 07/1207/24/20 D.N.P. [address] [place] [phone] documented as of this encounter
--- OUTSIDE RECORDS SUMMARY | 2022-02-17 12:17 | XMS_ITS | Encounter Summary ---
:1950 Author Organization [facility] Address [address] [place] [address] Care Team Providers Name Role Phone Lucy Morales APRN, C.NRah, D.N.P. Primary Care Provider Encounter Details Date Type Department Care Team Description 10/12/2019 Clinical Communication Department of Lucy Morales, Internal Medicine [place] D.N.P. [address] [phone] Social History Tobacco Use Types Packs/Day Years [...] this encounter Miscellaneous Notes Telephone Encounter - Monika Gamble C.M.A. - 10/13/2019 9:30 AM CDT SUBJECTIVE CHIEF COMPLAINT / REASON FOR CALL No chief complaint on file. Information Discussed No labs needed prior to the IM appt 10/31/19 PLAN Disposition/Recommendation: as above Information/Education: patient/caller able to teach back Caller agreeable to plan of care: yes The following references were used: provider Lucy Morales Telephone Encounter - Lucy Morales APRN, C.NRah, D.N.P. - 10/12/2019 4:43 PM CDT No need for any labs prior to his visit with me. He does have labs scheduled on 11/02 prior to his visit with urology. Telephone Encounter - Marley eMek - 10/12/2019 3:23 PM CDT Reason for Communication: Patient has appt with Lucy on 10/30 he is thinking he should have labs but nothing is ordered. Current Can Nursing/Provider leave a detailed message: Did the patient refuse triage through Nurse line? (for symptom based concerns): Action Needed: Please call patient back and let him know if labs are needed or not. Name of Medication (if relevant): documented in this encounter Plan of Treatment Upcoming Encounters Date Type Specialty Care Team Description 04/23/2022 Office Visit Cardiovascular Disease Blas Peck M.D. [address] [place] [phone] (Wo rk) documented as of this encounter Visit Diagnoses Not on filedocumented in this encounter Additional Health Concerns Assessment Noted Time PHQ-9 Depression Total Score: 7 09/29/2019 11:12 AM CD T documented as of this encounter Care Teams Metal Sander And Finisher Relationship Specialty Start Date End Date Lucy Morales APRN, C.N.PMichelle, PCP - General Internal Medicine 07/1207/24/20 D.N.P. [address] [place] [phone] documented as of this encounter
--- OUTSIDE RECORDS SUMMARY | 2022-02-17 12:17 | XMS_ITS | Encounter Summary ---
:1950 Author Organization [facility] Address [address] [place] [address] Care Team Providers Name Role Phone Andrew Lucyderic Serna APRN C.N.PMichelle, D.N.P. Primary Care Provider Encounter Details Date Type Department Care Team Description 10/19/2019 Orders Only Division of Endocrinology Raj Navarro abetes Mellitus Type in [place], [facility] pratik Mendez, 2 (HCC) (Primary Dx) [address] [place] [address] John., [place] [address] 0001 [address] [facility] [phone] [place] [phone] Social History Tobacco Use Types Packs/Day Years [...] Office Visit Cardiovascular Disease Blas Peck M.D. [address] [place] [phone] (Wo rk) documented as of this encounter Results Creatinine with Estimated GFR (11/10/2019 9:07 AM CDT) P athologist Signature Creatinine 1.05 0.74 - 11/10/2019 [place] 1.35 mg/dL 11:22 AM CDT eGFR-Black/Afric 84 >=60 11/10/2019 [place] an Maldivian mL/min/BSA 11:22 AM CDT Comment: ----ADDITIONAL INFORMATION---- Estimated GFR calculated using the 2009 CKD_EPI creatinine equation. eGFR Non-Black/ 73 >=60 mL/min/BSA 11/10/2019 11:22 AM CDT [place] Comment: ----ADDITIONAL INFORMATION---- Estimated GFR calculated using the 2009 CKD_EPI creatinine equation. Specimen Anatomical Collection Method Collection Time Receive d Time (Source) Location / / Volume Laterality Blood (Blood, 11/10/2019 9:07 AM 11/10/19 20 Venous) CDT 10:28 AM CDT K Andrea Navarro M.D., Ph.D. LAB BLOOD ADD-ON Performing Organization Address City/State/ZIP Code Phon e Number [facility] [address] [place] [address] [facility] [place] [address] System in [place] [address] [facility] documented in this encounter Visit Diagnoses Diagnosis Diabetes Mellitus Type 2 (HCC) - Primary documented in this encounter Additional Health Concerns Assessment Noted Time PHQ-9 Depression Total Score: 7 09/29/2019 11:12 AM CD T documented as of this encounter Care Teams Program Professional Relationship Specialty Start Date End Date Lucy Morales APRN, C.N.P., PCP - General Internal Medicine 07/1207/24/20 D.N.P. [address] [place] [phone] documented as of this encounter
--- OUTSIDE RECORDS SUMMARY | 2022-02-17 12:17 | XMS_ITS | Encounter Summary ---
:1950 Author Organization [facility] Address [address] [place] [address] Care Team Providers Name Role Phone Lucy Morales APRN, C.N.P., NanN.P. Primary Care Provider Encounter Details Date Type Department Care Team Description 09/27/2019 Hospital Encounter Department of Lucy Morales Hyp onatremia Laboratory Medicine in [place] NanNMichellePMichelle [address] [place] [address] [phone] (Wo rk) Social History Tobacco Use Types [...] the injection skin every 7 (seven) days. FLUoxetine (PROzac) 20 Take 1 tablet (20 mg 7 tablet 0 09/29/2019 mg tabletIndications: total) by mouth Anxiety daily. insulin syringe-needle 1 Injection daily. 100 Syringe [...] mouth daily. venlafaxine XR Take 1 capsule (37.5 90 capsule 3 08/29/2019 09/29/2019 (EFFEXOR-XR) 37.5 mg 24 mg total) by mouth hr capsuleIndications: daily for 7 days, Anxiety THEN 2 capsules (75 mg total) daily. documented as of this encounter Plan of Treatment Upcoming Encounters Date Type Specialty Care Team Description 04/23/2022 Office Visit Cardiovascular Disease Blas Peck M.D. [address] [place] [phone] (Wo rk) documented as of this encounter Procedures Procedure Name Priority Date/Time Associated Diagnosis Comme nts SODIUM, S/P Routine 09/27/2019 10:25 AM Hyponatremia Results for this CDT procedure are i n the results section . documented in this encounter Results (ABNORMAL) Sodium (09/27/2019 10:25 AM CDT) P athologist Signature Sodium, P 133 (L) 135 - 145 09/27/2019 [place] mmol/L 1:41 PM CDT Specimen Anatomical Collection Method Collection Time Receive d Time (Source) Location / / Volume Laterality Blood (Blood, 09/27/2019 10:25 09/27/2019 1:09 Venous) AM CDT PM CDT Cooper Eller APRNNSurya., D.N.P. LAB BLOOD ADD-ON Performing Organization Address City/State/ZIP Code Phon e Number [facility] [address] [place] [address] [facility] [place] [address] System in [place] [address] documented in this encounter Visit Diagnoses Diagnosis Hyponatremia documented in this encounter Additional Health Concerns Assessment Noted Time PHQ-9 Depression Total Score: 11 08/29/2019 11:01 AM C DT documented as of this encounter Care Teams Continuous Improvement Intern Relationship Specialty Start Date End Date Lucy Morales APRN C.N.P., PCP - General Internal Medicine 07/1207/24/20 D.N.P. [address] [place] [phone] documented as of this encounter
--- OUTSIDE RECORDS SUMMARY | 2022-02-17 12:17 | XMS_ITS | Encounter Summary ---
:1950 Author Organization [facility] Address [address] [place] [address] Care Team Providers Name Role Phone Lucy Morales APRN C.N.PMichelle, D.N.P. Primary Care Provider Reason for Visit Reason Comments COVID Nurse Line Encounter Details Date Type Department Care Team Description 10/10/2019 Clinical Communication Department of JUAN Fajardo Nurse Line Urology in [place], [place] P.A.-C. [address] [place] [phone] Social History Tobacco Use Types Packs/Day Years [...] this encounter Miscellaneous Notes Telephone Encounter - Stella Maxwell - 10/10/2019 11:52 AM CDT (T and [facility] locations only: If the patient is not having symptoms and is requesting COVID-19 Nasal Swab testing only, use the process listed in the COVID-19 Patient Requesting COVID PCR Test OTG COVID-19 [place] Patient Requesting COVID PCR Test). In the past 30 days have you had a swab for COVID that tested positive? NO Route reply to: Rst uro scheduling Scheduling Contact Number: {Dept Phone Number [phone] documented in this encounter Plan of Treatment Upcoming Encounters Date Type Specialty Care Team Description 04/23/2022 Office Visit Cardiovascular Disease Blas Peck M.D. [address] [place], [place] [phone] (Wo rk) documented as of this encounter Visit Diagnoses Not on filedocumented in this encounter Additional Health Concerns Assessment Noted Time PHQ-9 Depression Total Score: 7 09/29/2019 11:12 AM CD T documented as of this encounter Care Teams Doctor Naturopathic Relationship Specialty Start Date End Date Lucy Morales APRN, C.N.P., PCP - General Internal Medicine 07/1207/24/20 D.N.P. [address] [place] [phone] documented as of this encounter
--- OUTSIDE RECORDS SUMMARY | 2022-02-17 12:17 | XMS_ITS | Encounter Summary ---
:1950 Author Organization [facility] Address [address] [place] [address] Care Team Providers Name Role Phone Lucy Morales APRN C.N.P., D.N.P. Primary Care Provider Reason for Visit Reason Comments Referral First attempt Encounter Details Date Type Department Care Team Description 10/03/2019 Clinical Communication Department of Lucy Morales (First Internal Medicine L, CONTENT CREATION MANAGER, attempt) in [place], C.N.PMichelle, D.N.P. [address] [phone] Social History Tobacco Use Types Packs/Day [...] this encounter Miscellaneous Notes Telephone Encounter - Nicole Burkett - 10/03/2019 10:24 AM CDT Thank you for your order. We have left a telephone message for this patient to return a call so that we may gather additional information for registration and scheduling. We will attempt to contact the patient again in 2 business days. If someone should contact you about the message, please direct that person to call us at [phone]. If you have questions, please call us at [phone] or [phone]. Sincerely, [facility] Online Services for Referring Providers Appointment Office documented in this encounter Plan of Treatment Upcoming Encounters Date Type Specialty Care Team Description 04/23/2022 Office Visit Cardiovascular Disease Blas Peck M.D. [address] [place] [phone] (Wo rk) documented as of this encounter Visit Diagnoses Not on filedocumented in this encounter Additional Health Concerns Assessment Noted Time PHQ-9 Depression Total Score: 7 09/29/2019 11:12 AM CD T documented as of this encounter Care Teams Termite Treater Helper Relationship Specialty Start Date End Date Lucy Morales APRN, C.N.P., PCP - General Internal Medicine 07/1207/24/20 D.N.P. [address] [phone] documented as of this encounter
--- OUTSIDE RECORDS SUMMARY | 2022-02-17 12:17 | XMS_ITS | Encounter Summary ---
:1950 Author Organization [facility] Address [address] [place] [address] Care Team Providers Name Role Phone Lucy Morales APRN, C.NRah, Ebony.N.P. Primary Care Provider Encounter Details Date Type Department Care Team Description 10/05/2019 Clinical Communication Department of Lucy Morales, Internal Medicine [place] D.N.P. [address] [phone] Social History Tobacco Use Types Packs/Day Years [...] this encounter Miscellaneous Notes Telephone Encounter - Pallavi Ojeda L.P.N. - 10/05/2019 9:27 AM CDT SUBJECTIVE CHIEF COMPLAINT / REASON FOR CALL No chief complaint on file. Information Discussed Patient calling to express his frustration while trying to make appointments at [facility]. He was unable to make his appointments. Patient forgot why he was seeing urology. States scheduling was unable to tell him. He became upset and hung up. We discussed symptoms from his previous visit and he now remembers. Encouraged patient to call back for his appointments. Advised to call back with any other questions/concerns. PLAN Disposition/Recommendation: self-care is appropriate at this time, patient encouraged to call back with questions Information/Education: patient/caller able to teach back Caller agreeable to plan of care: yes The following references were used: provider and patient Telephone Encounter - Maryam Travis - 10/05/2019 8:43 AM CDT Reason for Communication: pt called and would like a call back from Lucy'tone nurse Current Can Nursing/Provider leave a detailed message: yes Did the patient refuse triage through Nurse line? (for symptom based concerns): Action Needed: please call back Name of Medication (if relevant): documented in this encounter Plan of Treatment Upcoming Encounters Date Type Specialty Care Team Description 04/23/2022 Office Visit Cardiovascular Disease Blas Peck M.D. [address] [place] [phone] (Wo rk) documented as of this encounter Visit Diagnoses Not on filedocumented in this encounter Additional Health Concerns Assessment Noted Time PHQ-9 Depression Total Score: 7 09/29/2019 11:12 AM CD T documented as of this encounter Care Teams Federal Aid Coordinator Relationship Specialty Start Date End Date Lucy Morales APRN, C.N.P., PCP - General Internal Medicine 07/1207/24/20 D.N.P. [address] [place] [phone] documented as of this encounter
--- OUTSIDE RECORDS SUMMARY | 2022-02-17 12:17 | XMS_ITS | Encounter Summary ---
:[address] [facility] Address [address] [place] [address] Care Team Providers Name Role Phone Lasha Ralph APRN C.N.PMichelle, D.N.P. Primary Care Provider Reason for Referral MRI/CAT/PET Scan (Routine) - Closed Specialty Diagnoses / Procedures Referred By Contact Refer red To Contact Radiology Diagnoses Kidney And Ureter Disorder Lasha Ralph APRN, [facility] [place] [facility] Procedures MR Abdomen without and with IV Contrast C.N.P., D.N.P. [address] [place] [address] Referral ID Status Reason Start Date Expiration Date Visits Requ ested Visits Authorized [id number] Closed 10/12/2019 10/11/2020 1 1 RI/CAT/PET Scan (Routine) - Closed Specialty Diagnoses / Procedures Referred By Contact Refer red To Contact Radiology Diagnoses Lower Abdominal Pain Unspecified Hernia Inguinal Bilateral Lasha Ralph APRN, [facility] [place] [facility] Procedures CT Abdomen Pelvis with IV Contrast C.N.P., D.N.P. [address] [place] [address] Referral ID Status Reason Start Date Expiration Date Visits Requ ested Visits Authorized [id number] Closed 09/29/2019 09/28/2020 1 1 Reason for Visit Reason Comments Anxiety PANIC DISORDER EPISODIC PARO XYSMAL ANXIETY Outpatient (Routine) - Closed Specialty Diagnoses / Procedures Referred By Contact Refer red To Contact Community Internal Diagnoses Anxiety Panic Disorder Episodic Paroxysmal Anxiety Lasha Ralph, [facility] Medicine [place], Ebony.N.P. [address] [place] [address] [place] [address] Referral ID Status Reason Start Date Expiration Date Visits Requ ested Visits Authorized [id number] Closed 08/29/2019 08/28/2020 1 1 Encounter Details Date Type Department Care Team Description 09/29/2019 Office Visit Department of Lasha Ralph, Anxiety ( Primary Dx); Internal Medicine in [place], Panic Disorder Episodic Paroxysmal Anxiety; [place], [place] D.N.P. Hyponatremia; [address] [facility] 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 Hyperglycemic (HCC); [place], [place] Benign Prostati c Hyperplasia With Lower Urinary Tract Symptom; [id number] Paraphimosis; [phone] Lower Abdominal Pain Unspecified; (Work) Constipation; [phone] Hernia Inguinal Bilateral; (Fax) Kidney And Uret er Disorder Social History Tobacco Use Types Packs/Day Years [...] Sign Reading Time Taken Comments Blood Pressure 120/66 09/29/2019 11:03 AM CDT Pulse 84 09/29/2019 11:03 AM CDT Temperature 37.1 ??C (98.7 ??F) 09/29/2019 11:03 AM CDT Respiratory Rate 18 09/29/2019 11:03 AM CDT Oxygen Saturation - - Inhaled Oxygen Concentration - - Weight 99.4 kg (219 lb 2.2 09/29/2019 11:03 AM with walker es on oz) CDT Height - - Body Mass Index 32.46 06/13/2019 1:17 PM 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 - 09/29/2019 11:00 AM CDT SUBJECTIVE CHIEF COMPLAINT Anxiety (PANIC DISORDER EPISODIC PAROXYSMAL ANXIETY). Elvis is a very pleasant 69 y.o. male who presents for follow-up anxiety. He was last seen for this by me on 08/29/2019. At that time recommended we switch from Prozac to Effexor. I did give him a prescription for Ativan as needed for panic attacks. He reports he has not needed to use the Ativan at all since he last saw me. He has made the transition from Prozac to Effexor without any difficulties. He does think the Effexor is working better for him than the Prozac was. Has some difficulty verbalizing how but generally feels better. He does think his anxiety overall has improved and he has not had any significant panic attacks since our last visit. Tolerating the Effexor well without any side effects. Currently at 75 mg daily. He does think that an increased dose would be helpful for him. He again has vague concerns about lower abdominal pain which sounds like something that has all beensomewhat ongoing and chronic in the past. Somewhat of a poor historian so difficult to ascertain what his symptoms are really related to. At times he reports complains of bladder pain other times penile pain other times inguinal pain. He does have known inguinal hernias with a left inguinal hernia which was last seen by General surgery in 2018. At that time they had recommended monitoring. He does reports some increased discomfort with that. He also has chronic constipation and takes MiraLax and Metamucil daily. This is usually helpful but he is still does have episodes of constipation. Reports epis odes of urinary retention and discomfort with urination. He does have a history of phimosis and reports that sometimes this bothers him as well. Sometimes his penis does appear strangulated according to his report other times it is fine. He does feel that this sometimes blocks off his urinary flow. Chung has known BPH but does not feel the medications are currently helping him. He reports his blood sugars have been somewhat elevated recently usually in the mid 100s but sometimes in the low 200s. He typically follows with endocrinology for blood sugar management. He has not yet made a follow-up visit with them as was recommended at our last visit. No other acute concerns today SOCIAL HISTORY Current tobacco user, hyper smoker. Lives independently. PAST MEDICAL HISTORY Patient Active Problem List Diagnosis ??? 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 Coronary Artery Disease Without Angina Pectoris ??? Anxiety ??? Apnea Sleep Obstructive ??? Body Mass Index 34.0 To 34.9 Adult ??? Callus [place] Foot ??? Constipation ??? Congestion Nasal ??? Coronary Arterial Bypass Graft Status Post Personal History ??? Diverticulosis Colon ??? Hyperlipidemia ??? Hyponatremia ??? Irritable Bowel Syndrome With Constipation ??? [...] Personal History ??? Primary Osteoarthritis Knee Right PAST SURGICAL HISTORY Past Surgical History: Procedure Laterality Date ??? CHOLECYSTECTOMY ??? COLON BIOPSY 06/28/2018 Adenomatous colonic polyps with Dr. Colby tidwell advised for 3 years ??? COLONOSCOPY 07/27/2015 Four colon polyps. Repeat in 3 years. [facility]. ??? COLONOSCOPY W/ POLYPECTOMY 05/11/[address]. Dr. Marito miralax prep, quality poor. Repeat in 1yr [...] covered by insurance. Dx:E11.9 ??? blood-glucose meter [facility] Dispense glucose meter, test strips, lancing device, and lancets covered by the patient insurance. Test 3 times per day. Dx: E11.40, E11.65 ??? CONTOUR TEST STRIPS strips USE ONE STRIP TO CHECK GLUCOSE ONCE DAILY BEFORE BREAKFAST ??? dulaglutide (Trulicity) 0.75 mg/0.5 mL injection Inject 0.5 mL (0.75 mg total) under the skin every 7 [...] TABLET BY MOUTH IN THE MORNING ??? metoprolol tartrate (LOPRESSOR) 25 mg tablet [...] (150 mg total) by mouth daily. ??? LORazepam (ATIVAN) 0.5 mg tablet Take 1 tablet (0.5 mg total) by mouth 2 (two) times a day as needed for anxiety. (Patient not taking: Reported on 09/29/2019 ) ??? nystatin (NYSTOP) 100,000 unit/gram powder Apply 1 application topically 3 (three) times a day. (Patient not taking: Reported on 08/29/2019 ) ??? PEPPERMINT OIL ORAL Take 1 capsule by mouth as needed. ALLERGIES Allergies Allergen Reactions ??? Sertraline Other (see comments) ??? Sulfamethoxazole-Trimethoprim Swelling REVIEW OF SYSTEMS REVIEW OF SYSTEMS Pertinent positives as per HPI. Otherwise, comprehensive review of systems performed and negative. OBJECTIVE Constitutional Appearance: He is well-developed. HENT Head: Normocephalic and atraumatic. Eyes Conjunctiva/sclera: Conjunctivae normal. Pupils: Pupils are equal, round, and reactive to light. Neck Musculoskeletal: Normal range of motion. Pulmonary Effort: Pulmonary effort is normal. Musculoskeletal Normal range of motion. Skin General: Skin is warm and dry. Neurological Mental Status: He is alert and oriented to person, place, and time. Psychiatric Attention and Perception: Attention normal. Mood and Affect: Mood normal. Speech: Speech is tangential. Behavior: Behavior normal. Behavior is cooperative. Thought Content: Thought content does not include suicidal ideation. Thought content does not include suicidal plan. VITAL SIGNS: BP 120/66 Pulse 84 Temp 37.1 ??C (Temporal) Resp 18 Wt 99.4 kg Comment: with shoes on BMI 32.46 kg/m?? ASSESSMENT / PLAN 1. Anxiety 2. Panic Disorder Episodic Paroxysmal Anxiety Overall feels he is doing better on the Effexor than he was on the Prozac. I am happy to hear that he has not had any episodes of panic attacks and has not needed to use his Ativan. He does have it available if needed for panic attacks or panic attack triggering events such as procedures. However he does continue to verbalize understanding that this is to be sparingly and as needed. He does think an increase in the Effexor would be helpful for him so recommended we increase to 150 mg daily. Tolerating well without any side effects. Encouraged him to continue to utilize nonpharmacological coping skills. - Community Internal Medicine office visit (clinic) - venlafaxine XR (EFFEXOR-XR) 150 mg 24 hr capsule; Take 1 capsule (150 mg total) by mouth daily. Dispense: 90 capsule; Refill: 3 3. Hyponatremia He continues to have mild chronic hyponatremia. I was hopeful that this may resolve with the discontinuation of the Prozac but has not really changed. Recommended we continue to monitor. May want to consider a mild fluid restriction if this worsens at all. 4. Diabetes Mellitus Type 2 With Diabetic Neuropathy Hyperglycemic (HCC) I suspect his blood sugars have been elevated recently. Last A1c was above goal last month. He did have glucose evident in his urine today. I have strongly recommended he call [place] and set up an appointment with his cap inspector. 5. Benign Prostatic Hyperplasia With Lower Urinary Tract Symptom 6. Paraphimosis Reports symptoms of difficulty urinating and some urinary retention. He has a bit of a difficult historian so it is hard to tell what his symptoms are that he is really describing. Some of it sounds possibly related to his phimosis and that sometimes this causes a stricture for his urination. Other times it seems that he is having bladder discomfort or pain. Ultimately recommended a referral to Urology in [place] as he would like to go there for further evaluation. UA done today did not show any signs of infection but did show signs of glucose. - Urology - General - urinary retention consult (clinic); Future - Urinalysis with Microscopic: Urine, Clean Catch; Future 7. Lower Abdominal Pain Unspecified 8. Constipation 9. Hernia Inguinal Bilateral Again difficult to ascertain exactly what he is complaining about regarding his abdomen. It does seem that this lower abdominal pain has been somewhat chronic in nature. He does have known bilateral inguinal hernias which have been repaired although the left as of 2018 had an active hernia. He saw General surgery at that time and they recommended monitoring. It does seem as though he has had some increased pain and discomfort in this area since then. Difficult to tell if his pain is more from his bladder or his constipation I suspect is a combination of both. Does not appear we have done much imaging of his abdomen recently therefore I recommended we get a CT of the abdomen and pelvis to ascertainwhether not there is something going on that may be causing these symptoms. If so certainly we will want to address them. Could consider referral back to General surgery regarding the hernia if he would like to pursue further management for this. - CT Abdomen Pelvis with IV Contrast; Future - Creatinine with Estimated GFR; Future Recommended Elvis follow up with me in 1 month for follow-up of his Effexor. Follow up sooner for any new or worsening symptoms. Elvis verbalized understanding of the plan of care and was in agreement.All questions were answered today. documented in this encounter Miscellaneous Notes Addendum Note - Lasha Ralph APRN, C.N.P., D.N.P. - 09/29/2019 11:00 AM CDT Addended by: LASHA RALPH on: 10/12/2019 12:01 PM Modules accepted: Orders documented in this encounter Plan of Treatment Upcoming Encounters Date Type Specialty Care Team Description 04/23/2022 Office Visit Cardiovascular Disease Blas Peck M.D. [address] [place] [phone] (Wo rk) documented as of this encounter Results MR Abdomen without and [...] Bilateral renal cysts. No suspicious renal masses. Lasha Ralph APRN, C.N.P., D.N.P. IMG MRI PROCEDURE S CT Abdomen Pelvis with IV Contrast (10/12/2019 11:24 AM CDT) Anatomical Region Laterality Modality Abdomen, Pelvis, Abdominal RST LOS, Abdominal ARZ LOS, N/A Computed Tomography Abdominal FLA [facility] Specimen (Source) Anatomical Collection Method Collection Time Re ceived Time Location / / Volume Laterality 10/12/2019 11:37 AM CDT Impressions 10/12/2019 11:48 AM CDT 1. ??Indeterminate left renal lesion measuring 1.7 cm, recommend MRI or multiphasic CT to further characterize. 2. ??Small fat-containing right inguinal hernia. 3. ??Colonic diverticulosis. 4. ??Atherosclerotic vascular disease. Narrative 10/12/2019 11:48 AM CDT EXAM: CT ABDOMEN PELVIS WITH IV CONTRAST COMPARISON: July 31, 2016 ultrasound FINDINGS: Limited lower thorax: Unremarkable. Abdomen/pelvis: The liver, spleen, adren als, and pancreas are normal in appearance. Cholecystectomy. Right kidne y has a simple cyst but is otherwise normal in appearance. Exophytic lesion a rising off the superior pole of the left kidney, not seen on prior ultrasound, po ssibly a hemorrhagic or proteinaceous cyst but technically indeterminate, cons ider MRI or multiphasic CT to further characterize. The pelvic contents are un remarkable. Fat-containing right inguinal hernia. Colonic diverticulosis. Large amount stool seen throughout the colon. Normal appendix. Small bowel loop s are unremarkable. The portal veins are patent. Atherosclerotic vascular disease with normal caliber abdominal aorta. Bones: Degenerative changes of the spine . No aggressive or destructive osseous lesions. Procedure Note Cam Mark M.D. - 10/12/2019Forma tting of this note might be different from the original. EXAM: CT ABDOMEN PELVIS WITH IV CONTRAST COMPARISON: July 31, 2016 ultrasound FINDINGS: Limited lower thorax: Unremarkable. Abdomen/pelvis: The liver, spleen, adren als, and pancreas are normal in appearance. Cholecystectomy. Right kidne y has a simple cyst but is otherwise normal in appearance. Exophytic lesion a rising off the superior pole of the left kidney, not seen on prior ultrasound, po ssibly a hemorrhagic or proteinaceous cyst but technically indeterminate, cons ider MRI or multiphasic CT to further characterize. The pelvic contents are un remarkable. Fat-containing right inguinal hernia. Colonic diverticulosis. Large amount stool seen throughout the colon. Normal appendix. Small bowel loop s are unremarkable. The portal veins are patent. Atherosclerotic vascular disease with normal caliber abdominal aorta. Bones: Degenerative changes of the spine . No aggressive or destructive osseous lesions. IMPRESSION: 1. Indeterminate left renal lesion measu ring 1.7 cm, recommend MRI or multiphasic CT to further characterize. 2. Small fat-containing right inguinal h ernia. 3. Colonic diverticulosis. 4. Atherosclerotic vascular disease. Lasha Ralph APRN, C.N.P., D.N.P. IMG CT PROCEDURES Creatinine with Estimated GFR (10/11/2019 10:00 AM CDT) athologist Signature Creatinine 1.03 0.74 - 10/11/2019 [place] 1.35 mg/dL 2:20 PM CDT eGFR-Black/Afric 86 >=60 10/11/2019 [place] an Cambodian mL/min/BSA 2:20 PM CDT Comment: ----ADDITIONAL INFORMATION---- Estimated GFR calculated using the 2009 CKD_EPI creatinine equation. eGFR Non-Black/ 74 >=60 mL/min/BSA 2:20 PM CDT [place] Comment: ----ADDITIONAL INFORMATION---- Estimated GFR calculated using the 2009 CKD_EPI creatinine equation. Specimen Anatomical Collection Method Collection Time Receive d Time (Source) Location / / Volume Laterality Blood (Blood, 10/11/2019 10:00 10/11/2019 1:01 Venous) AM CDT PM CDT aLsha Ralph APRN C.N.PMichelle, D.N.P. LAB BLOOD ADD-ON Performing Organization Address City/State/ZIP Code Phon e Number [facility] [address] [place] [address] [facility] [place] [address] System in [place] [address] (ABNORMAL) Urinalysis with Microscopic: Urine, Clean Catch (09/29/2019 12:03 PM CDT) P athologist Signature Source Midstream 09/29/2019 [place] 12:27 PM CDT Clarity Clear Clear 09/29/2019 [place] 12:27 PM CDT Color Linda 09/29/2019 [place] 12:27 PM CDT Comment: ----REFERENCE VALUE---- Colorless Yellow Linda Blood Negative Negative 09/29/2019 12:27 PM CDT [place] Nitrite Negative Negative 09/29/2019 12:27 PM CDT [place] Leukocyte Esterase Negative Negative 09/29/2019 12:27 PM C DT [place] Protein Trace mg/dL 09/29/2019 12:27 PM CDT [place] Comment: ----REFERENCE VALUE---- Negative Trace Glucose 500 (A) Negative mg/dL 09/29/2019 12:27 PM CDT O ALEXYS Ketone Trace (A) Negative mg/dL 09/29/2019 12:27 PM CDT O ALEXYS Bilirubin Negative Negative 09/29/2019 12:27 PM CDT [place] pH 5.0 5.0 - 8.0 09/29/2019 12:27 PM CDT [place] Specific [place] 1.025 1.001 - 1.035 09/29/2019 12:27 PM CDT [place] Urobilinogen 1.0 0.2 - 1.0 09/29/2019 12:27 PM CDT OWA T White Blood Cells None Seen /hpf 09/29/2019 12:27 PM CD T [place] Comment: ----REFERENCE VALUE---- Males: 0-3 Females: 0-10 Unknown: 0-10 Red Blood Cells Occ-2 0 - 2 /hpf 09/29/2019 12:27 PM CDT [place] Hyaline Casts 11-20 /lpf 09/29/2019 12:27 PM CDT [place] Squamous Cells Occ-3 /hpf 09/29/2019 12:27 PM CDT O ALEXYS Specimen Anatomical Collection Method Collection Time Receive d Time (Source) Location / / Volume Laterality Urine (Urine, 09/29/2019 12:03 09/29/2019 Clean Catch) PM CDT 12:12 PM CDT Lasha Ralph APRN, C.N.P., D.N.P. LAB URINE ORDERAB LES Performing Organization Address City/State/ZIP Code Phon e Number [facility] [address] [place] [address] [facility] [place] [address] System in [place] [address] [facility] documented in this encounter Visit Diagnoses Diagnosis Anxiety - Primary Panic Disorder Episodic Paroxysmal Anxie ty Hyponatremia 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 Hyperglycemic (HCC) Benign Prostatic Hyperplasia With Lower Urinary Tract Symptom Paraphimosis Lower Abdominal Pain Unspecified Constipation Hernia Inguinal Bilateral Kidney And Ureter Disorder Lower Abdominal Pain Unspecified Hernia Inguinal Bilateral Kidney And Ureter Disorder documented in this encounter Additional Health Concerns Assessment Noted Time PHQ-9 Depression Total Score: 7 09/29/2019 11:12 AM CD T documented as of this encounter Care Teams Cvor Nurse Relationship Specialty Start Date End Date Lasha Ralph APRN, C.N.P., PCP - General Internal Medicine 07/1207/24/20 D.N.P. [address] [phone] documented as of this encounter
--- OUTSIDE RECORDS SUMMARY | 2022-02-17 12:17 | XMS_ITS | Encounter Summary ---
:1950 Author Organization [facility] Address [address] [place] [address] Care Team Providers Name Role Phone Lucy Morales APRN, C.NRah, Ebony.N.P. Primary Care Provider Encounter Details Date Type Department Care Team Description 09/30/2019 Clinical Communication Department of Lucy Morales, Internal Medicine in [place] D.N.P. [address] [phone] Social History Tobacco Use Types Packs/Day Years [...] this encounter Miscellaneous Notes Telephone Encounter - Joleen Pineda L.P.N. - 10/03/2019 4:02 PM CDT SUBJECTIVE CHIEF COMPLAINT / REASON FOR CALL No chief complaint on file. Information Discussed Patient was notified of the advice as listed below. PLAN Disposition/Recommendation: NA Information/Education: patient/caller able to teach back Caller agreeable to plan of care: yes The following references were used: provider Andrew Telephone Encounter - Lucy Morales APRN, C.N.PMichelle, D.N.P. - 10/03/2019 3:58 PM CDT I'm not sure I can order imaging at [facility]. He can have this done at the [facility] in [place] if he prefers to go to [place] and just needs to call them to schedule Telephone Encounter - Monalisa Casillas C.M.AMichelle - 10/03/2019 3:34 PM CDT Please put order in for [facility], patient prefers to go to [facility]. Thank you Telephone Encounter - Elissa Wise - 09/30/2019 2:41 PM CDT The provider will need to put the order in at [facility] if he wants it done in [place]. Telephone Encounter - Monalisa Casillas, C.M.AMichelle - 09/30/2019 1:[address] questions completed and faxed. Patient prefers to have done in [facility] if possible. Telephone Encounter - Elissa Wise - 09/30/2019 11:14 AM CDT Patient has CT order in queue. Please fill out this CT questionnaire and fax to [phone]. Thank you. documented in this encounter Plan of Treatment Upcoming Encounters Date Type Specialty Care Team Description 04/23/2022 Office Visit Cardiovascular Disease Blas Peck M.D. [address] [place], [place] [phone] (Wo rk) documented as of this encounter Visit Diagnoses Not on filedocumented in this encounter Additional Health Concerns Assessment Noted Time PHQ-9 Depression Total Score: 7 09/29/2019 11:12 AM CD T documented as of this encounter Care Teams Court Interpreter Relationship Specialty Start Date End Date Lucy Morales, BRIAN, C.N.P., PCP - General Internal Medicine 07/1207/24/20 D.N.P. [address] [place] [phone] documented as of this encounter
--- OUTSIDE RECORDS SUMMARY | 2022-02-17 12:17 | XMS_ITS | Encounter Summary ---
:1950 Author Organization [facility] Address [address] [place] [address] Care Team Providers Name Role Phone Andrew Lucy Serna APRN, C.N.P., D.N.P. Primary Care Provider Reason for Visit Reason Comments COVID Inquiry Encounter Details Date Type Department Care Team Description 11/09/2019 Clinical Communication Division of Raj Navarro COVID Inquiry Endocrinology in [place], [place] Denise, Ph.D. [address] [facility] [address] [place] [phone] Social History Tobacco Use Types Packs/Day Years [...] this encounter Miscellaneous Notes Telephone Encounter - Micaela Gasca - 11/09/2019 2:56 PM CDT ([facility] and [facility] locations only: If the patient is not having symptoms and is requesting COVID-19 Nasal Swab testing only, use the process listed in the COVID-19 Patient Requesting COVID PCR Test OTG COVID-19 [place] Patient Requesting COVID PCR Test). 1. Do you have a pending COVID test because you had symptoms or exposure to someone with COVID or you have tested positive for COVID in the last 30 days? no 2. In the past 14 days, do you, anyone in the household, or anyone you have had prolonged exposure have any of the following? a. Fever greater than or equal to 37.8 C (100.0 F)? no b. New symptoms (Specifically: headache, cough, shortness of breath, respiratory distress, sore throat, diarrhea, nausea, vomiting, chills and repeated shaking with chills, myalgia's (muscle aches), loss of smell, or change or loss of taste sensation)? no c. Had close contact with a patient with known or possible COVID-19 in the last 14 days? no documented in this encounter Plan of Treatment Upcoming Encounters Date Type Specialty Care Team Description 04/23/2022 Office Visit Cardiovascular Disease Blas Peck M.D. [address] [place], [place] [phone] (Wo rk) documented as of this encounter Visit Diagnoses Not on filedocumented in this encounter Additional Health Concerns Assessment Noted Time PHQ-9 Depression Total Score: 1 10/31/2019 2:00 PM CDT documented as of this encounter Care Teams As400 Operator Relationship Specialty Start Date End Date Lucy Morales APRN, C.N.P., PCP - General Internal Medicine 07/1207/24/20 D.N.P. [address] [place] [phone] documented as of this encounter
--- OUTSIDE RECORDS SUMMARY | 2022-02-17 12:17 | XMS_ITS | Encounter Summary ---
:1950 Author Organization [facility] Address [address] [place] [address] Care Team Providers Name Role Phone Lucy Morales APRN C.N.PMichelle, D.N.P. Primary Care Provider Reason for Referral MRI/CAT/PET Scan (Routine) - Closed Specialty Diagnoses / Procedures Referred By Contact Refer red To Contact Radiology Diagnoses Lower Abdominal Pain Unspecified Hernia Inguinal Bilateral Lucy Morales APRN, [facility] [place] [facility] Procedures CT Abdomen Pelvis with IV Contrast C.N.P., D.N.P. [address] [place] [phone] Referral ID Status Reason Start Date Expiration Date Visits Requ ested Visits Authorized Closed 09/29/2019 09/28/2020 1 1 Reason for Visit MRI/CAT/PET Scan (Routine) - Closed Specialty Diagnoses / Procedures Referred By Contact Refer red To Contact Radiology Diagnoses Lower Abdominal Pain Unspecified Hernia Inguinal Bilateral Lucy Morales APRN, [facility] [place] [facility] Procedures CT Abdomen Pelvis with IV Contrast C.N.P., D.N.P. [address] [place] [phone] Referral ID Status Reason Start Date Expiration Date Visits Requ ested Visits Authorized Closed 09/29/2019 09/28/2020 1 1 Encounter Details Date Type Department Care Team Description 10/12/2019 Hospital Encounter Department of Lucy Morales Lower Abdominal Pain Unspecified; Radiology in [place], CIGARETTE AND FILTER CHIEF INSPECTOR, C.N.P., Hernia Ingu inal Bilateral [place], [place] D.N.P. [address] [place] [phone] Social History Tobacco Use Types Packs/Day [...] TAKE 1 TABLET BY 90 tablet 3 08/23/2 020 08/23/2020 20 mg tablet MOUTH AT [...] tablet (10 mg 90 tablet 3 10/29/2018 080 08/2019 (DITROPAN-XL) 10 mg 24 total) by [...] Cardiovascular Disease Blas Peck M.D. [address] [facility] [place] [phone] (Wo rk) documented as of this encounter Procedures Procedure Name Priority Date/Time Associated Comments Diagnosis CT ABDOMEN PELVIS RAD - Routine 10/12/2019 11:24 Lower Abdominal Re sults for this WITH IV CONTRAST (most inpatients AM CDT Pain Unspecifi ed procedure are in and all Hernia Inguinal the results outpatients) Bilateral section. documented in this encounter Results CT Abdomen Pelvis with IV Contrast (10/12/2019 11:24 AM CDT) Anatomical Region Laterality Modality Abdomen, Pelvis, Abdominal RST LOS, Abdominal ARZ LOS, N/A Computed Tomography Abdominal FLA LOS Specimen (Source) Anatomical Collection [...] 3. Colonic diverticulosis. 4. Atherosclerotic vascular disease. Lucy Morales APRN C.N.P., D.N.P. IMG CT PROCEDURES documented in this encounter Visit Diagnoses Diagnosis Lower Abdominal Pain Unspecified Hernia Inguinal Bilateral documented in this encounter Administered Medications Inactive Administered Medications - up to 3 most recent administrations Medication Order MAR Action Action Date Dose Rate Site iohexoL 300 mg iodine/mL Given 10/12/2019 11:09 AM 160 mL Right Antecubital solution 160 mL CDT (OMNIPAQUE) 160 mL, intravenous, Once in imaging, contrast, Starting on Thu10/12/19 at 1116, For 1 dose sodium chloride 0.9 % flush Given 10/12/2019 11:09 AM CDT 100 mL Right Antecubital 100 mL 100 mL, intravenous, Once in imaging, line care, Starting on Thu10/12/19 at 1117, For 1 dose sodium chloride 0.9 % Given 10/12/2019 11:09 AM CDT 10 mL Right Antecubital injection 10 mL 10 mL, intravenous, As needed, line care, Starting on Thu10/12/19 at 1117 documented in this encounter Additional Health Concerns Assessment Noted Time PHQ-9 Depression Total Score: 7 09/29/2019 11:12 AM CD T documented as of this encounter Care Teams Squeegee Finisher Relationship Specialty Start Date End Date Lucy Morales APRN, C.N.P., PCP - General Internal Medicine 07/1207/24/20 D.N.P. [address] [place] [phone] documented as of this encounter
--- OUTSIDE RECORDS SUMMARY | 2022-02-17 12:17 | XMS_ITS | Encounter Summary ---
:1950 Author Organization [facility] Address [address] [place] [address] Care Team Providers Name Role Phone Lasha Ralph APRN C.N.P., D.N.P. Primary Care Provider Reason for Visit Reason Comments Med Refill Encounter Details Date Type Department Care Team Description 10/31/2019 Refill Department of Internal Lasha Ralph APRN, Med Refill Medicine in [place], CMichelleN.Aneesh, D. N.P. [address] [place] [phone] [place] [address] [phone] Social History Tobacco Use Types Packs/Day Years [...] documented as of this encounter Miscellaneous Notes Addendum Note - Lasha Ralph APRN, C.N.P., D.N.P. - 11/01/2019 9:17 AM CDT Addended by: LASHA RALPH on: 11/01/2019 09:17 AM Modules accepted: Orders Telephone Encounter - Lasha Ralph APRN, C.N.PMichelle, Ebony.N.PMichelle - 11/01/2019 9:17 AM CDT New RX for 1mg sent to pharmacy. He should continue to use sparingly as needed Telephone Encounter - Brenda Warren R.N. - 11/01/2019 9:03 AM CDT SUBJECTIVE CHIEF COMPLAINT / REASON FOR CALL Med Refill PLAN The following information was provided: Called patient who relays he is taking the Ativan. He does not need to take it on a regular basis but states he could go a week without taking it but then the next week take it twice a week. He had in the past taken Xanax and he states that he feels that the ativan is weaker than that. When he takes 0.5 mg of ativan he really doesn't notice any change in his symptoms. He states if he takes 1 mg then he notices some relief. He would the dose changed to 1 mg if possible. Information/Education: not applicable The following references were used: none Telephone Encounter - Brenda Hemphill R.N. - 10/31/2019 4:54 PM CDT Called Elvis. No answer. Left message to call back Telephone Encounter - Kendall Shah - 10/31/2019 4:45 PM CDT Patient returning the phone call to the nurse. I was unable to reach the nurse. Please call the patient back. Telephone Encounter - Brenda Hemphill R.N. - 10/31/2019 4:02 PM CDT Called Elvis. No answer. Left message to call back Telephone Encounter - Lasha Ralph APRN, C.N.PMichelle, D.N.P. - 10/31/2019 3:31 PM CDT Can we get more details about how he is taking this medication. Last I spoke with him he was not using it at all. How often is he using it, and what makes him feel his current dose is not strong enough? I would prefer to use the lowest dose necessary of this medication to treat his symptoms. Telephone Encounter - Shira Toledo L.P.N. - 10/31/2019 2:51 PM CDT SUBJECTIVE CHIEF COMPLAINT / REASON FOR CALL Med Refill PLAN The following information was provided: Pt was seen on 09/28 and 08/28 for Anxiety and Panic Disorder. Pt's appointment today was no show due to transportation. Called and spoke to pt- He reports that he feels that 0.5mg is just a small dose and he would need to have a full 1mg tab for his Ativan. Reviewed PHQ-9 (1) and BONI-7 (7). Please advise on pt's request for medication adjustment. Information/Education: patient/caller able to teach back The following references were used: none Telephone Encounter - Verenice Chavarria - 10/31/2019 9:55 AM CDT Name of Medication: Lorazepam Primary Provider: Lasha Ralph APRN, C.N.PMichelle, D.N.P. Strength: 0.5mg Frequency: 1 tablet by mouth 2 times a day as needed Pharmacy (include location): [facility] in [place] Elvis is requesting to have this increased to 1mg, instead of .5mgs. He had an appointment scheduledtoday, with Lasha Ralph, however his ride didn't show up to bring him. This has happened a few times now. He will be leaving for vacation, coming up, but wasn't completely sure of the dates. We may contact Elvis at [phone]. We may leave a detailed message, should we receive his voicemail. documented in this encounter Plan of Treatment Upcoming Encounters Date Type Specialty Care Team Description 04/23/2022 Office Visit Cardiovascular Disease Blas Peck M.D. [address] [place], [place] [phone] (Wo rk) documented as of this encounter Visit Diagnoses Diagnosis Panic Disorder Episodic Paroxysmal Anxie ty documented in this encounter Additional Health Concerns Assessment Noted Time PHQ-9 Depression Total Score: 1 10/31/2019 2:00 PM CDT documented as of this encounter Care Teams Small Engine Trainer Relationship Specialty Start Date End Date Lasha Ralph APRN, C.N.P., PCP - General Internal Medicine 07/1207/24/20 D.N.P. [address] [place] [phone] documented as of this encounter
--- OUTSIDE RECORDS SUMMARY | 2022-02-17 12:17 | XMS_ITS | Encounter Summary ---
:1950 Author Organization [facility] Address [address] [place] [address] Care Team Providers Name Role Phone Lucy Morales APRN, C.NRah, NanNMichellePMichelle Primary Care Provider Encounter Details Date Type Department Care Team Description 09/29/2019 Hospital Encounter Department of Lucy Morales Benign Prostatic Laboratory Medicine BRIAN Serna C.NRah, Hype rplasia With in [place] NegronPMichelle Lower Urinary Tract [address] Symptom [address] [place] [phone] Social History Tobacco Use [...] DISSOLVE ONE TABLET 25 tablet 0 08/26/2019 06 / (NITROSTAT) 0.4 mg SL UNDER THE TONGUE [...] Visit Cardiovascular Disease Blas Peck M.D. [address] [place] [phone] (Wo rk) documented as of this encounter Procedures Procedure Name Priority Date/Time Associated Diagnosis Comme nts URINALYSIS WITH Routine 09/29/2019 12:03 Benign Prostatic Resu lts for this MICROSCOPIC PM CDT Hyperplasia With procedure a re in Lower Urinary Tract the resu lts Symptom section. documented in this encounter Results (ABNORMAL) Urinalysis with Microscopic: Urine, Clean Catch (09/29/2019 12:03 PM CDT) athologist Signature Source Midstream 09/29/2019 [facility] 12:27 [...] 8.0 09/29/2019 12:27 PM CDT [place] Specific [place] 1.025 1.001 - 1.035 09/29/2019 12:27 PM [...] Clean Catch) PM CDT 12:12 PM CDT Lucy Morales APRN, C.N.P., D.N.P. LAB URINE ORDERAB LES Performing Organization Address City/State/ZIP Code Phon e Number [facility] [address] [place] [address] [facility] [place] [address] System in [place] [address] documented in this encounter Visit Diagnoses Diagnosis Benign Prostatic Hyperplasia With Lower Urinary Tract Symptom documented in this encounter Additional Health Concerns Assessment Noted Time PHQ-9 Depression Total Score: 7 09/29/2019 11:12 AM CD T documented as of this encounter Care Teams Bench Technician Relationship Specialty Start Date End Date Lucy Morales APRN C.N.P., PCP - General Internal Medicine 07/1207/24/20 HeavenPMichelle [address] [place] [address] documented as of this encounter
--- OUTSIDE RECORDS SUMMARY | 2022-02-17 12:17 | XMS_ITS | Encounter Summary ---
:1950 Author Organization [facility] Address [address] [place] [address] Care Team Providers Name Role Phone Lucy Morales APRN C.N.PMichelle, D.N.P. Primary Care Provider Encounter Details Date Type Department Care Team Description 11/04/2019 Clinical Communication Department of Blas Peck Cardiovascular Diseases Denise Manley in [address] [place] [phone] Social History Tobacco Use Types Packs/Day Years [...] this encounter Miscellaneous Notes Telephone Encounter - Dangelo Inocencia Zuñiga - 11/04/2019 9:30 AM CDT ([facility] and [facility] locations only: If the patient is not having symptoms and is requesting COVID-19 Nasal Swab testing only, use the process listed in the COVID-19 Patient Requesting COVID PCR Test OTG COVID-19 [place] Patient Requesting COVID PCR Test). In the past 30 days have you had a swab for COVID that tested positive? no Route reply to: Scheduling Contact Number: [phone] documented in this encounter Plan of Treatment Upcoming Encounters Date Type Specialty Care Team Description 04/23/2022 Office Visit Cardiovascular Disease Blas Peck M.D. [address] [place] [phone] (Wo rk) documented as of this encounter Visit Diagnoses Not on filedocumented in this encounter Additional Health Concerns Assessment Noted Time PHQ-9 Depression Total Score: 1 10/31/2019 2:00 PM CDT documented as of this encounter Care Teams Director Of Group Sales Relationship Specialty Start Date End Date Lucy Morales APRN, C.N.P., PCP - General Internal Medicine 07/1207/24/20 D.N.P. [address] [place] [phone] documented as of this encounter
--- OUTSIDE RECORDS SUMMARY | 2022-02-17 12:17 | XMS_ITS | Encounter Summary ---
:1950 Author Organization [facility] Address [address] [place] [address] Care Team Providers Name Role Phone Lucy Morales APRN C.N.PMichelle, D.N.P. Primary Care Provider Reason for Visit Reason Comments COVID Inquiry Encounter Details Date Type Department Care Team Description 09/29/2019 Clinical Communication Department of Lucy Morales COVID Inquiry Internal Medicine in [place] D.N.P. [address] [phone] Social History Tobacco Use Types [...] this encounter Miscellaneous Notes Telephone Encounter - Hermann Luaelver Zuñiga - 09/29/2019 11:49 AM CDT (Note for [facility] locations only: If the patient states they are asking for testing because attended a protest, acevedo, community cleanup or other mass gathering in the last 7 days and is asking for testing, complete the below questions and transfer to the COVID Nurse Line). 1. Do you have a pending COVID [...] Visit Cardiovascular Disease Blas Peck M.D. [address] [place] [phone] (Wo rk) documented as of this encounter Visit Diagnoses Not on filedocumented in this encounter Additional Health Concerns Assessment Noted Time PHQ-9 Depression Total Score: 7 09/29/2019 11:12 AM CD T documented as of this encounter Care Teams Accounting Tutor Relationship Specialty Start Date End Date Lucy Morales APRN, C.N.P., PCP - General Internal Medicine 07/1207/24/20 D.N.PMichelle [address] [place] [phone] documented as of this encounter
--- OUTSIDE RECORDS SUMMARY | 2022-02-17 12:17 | XMS_ITS | Encounter Summary ---
:[address] [facility] Address [address] [place] [address] Care Team Providers Name Role Phone Lucy Morales APRN C.N.PMichelle, D.N.P. Primary Care Provider Reason for Visit Reason Comments Appointment patient not aware of URO, la nted order for END Encounter Details Date Type Department Care Team Description 10/05/2019 Clinical Communication Department of Lucy Morales [facility] Internal Medicine BRIAN Serna, (patient n ot aware in [place] Negr[place], D.N.P. of URO, [address] order for END) [address] [place] [phone] Social History Tobacco Use [...] this encounter Miscellaneous Notes Telephone Encounter - Goldy Atkinson - 10/05/2019 8:37 AM CDT Thank you for your order. Unfortunately, when speaking with the patient, they stated they were unaware of the order. We have cancelled this order. We have encouraged the patient to contact your office to discuss the reason for this order, and to contact us back but the patient hung up. Please contact your patient and have him contact us at [phone] in the near future if they do wish to proceed with an appointment request at the [facility]. Sincerely, [facility] Online Services for Referring Physicians Appointment Office documented in this encounter Plan of Treatment Upcoming Encounters Date Type Specialty Care Team Description 04/23/2022 Office Visit Cardiovascular Disease Blas Peck M.D. [address] [place] [phone] (Wo rk) documented as of this encounter Visit Diagnoses Not on filedocumented in this encounter Additional Health Concerns Assessment Noted Time PHQ-9 Depression Total Score: 7 09/29/2019 11:12 AM CD T documented as of this encounter Care Teams Media Planner / Buyer Relationship Specialty Start Date End Date Lucy Morales APRN, C.N.P., PCP - General Internal Medicine 07/1207/24/20 D.N.P. [address] [place] [phone] documented as of this encounter
--- OUTSIDE RECORDS SUMMARY | 2022-02-17 12:17 | XMS_ITS | Encounter Summary ---
:1950 Author Organization [facility] Address [address] [place] [address] Care Team Providers Name Role Phone Lucy Morales APRN C.N.PMichelle, D.N.P. Primary Care Provider Encounter Details Date Type Department Care Team Description 11/10/2019 Hospital Encounter Department of Raj Navarro Diabetes Mellitus Laboratory Medicine Andrea, Type 2 ( HCC) in Denise Owen, Ph.D. [address] [phone] Social History Tobacco Use Types Packs/Day Years [...] 08/23/2020 20 mg tablet MOUTH AT BEDTIME insulin syringe-needle 1 Injection daily. 100 Syringe [...] Office Visit Cardiovascular Disease Blas Peck M.D. [address] [place] [phone] (Wo rk) documented as of this encounter Procedures Procedure Name Priority Date/Time Associated Comments Diagnosis LIPID PANEL, S Routine 11/10/2019 9:07 Diabetes Mellitus Resul ts for this AM CDT Type 2 (HCC) procedure are i n the results section. CBC WITHOUT Routine 11/10/2019 9:07 Diabetes Mellitus Results for this DIFFERENTIAL, B AM CDT Type 2 (HCC) procedure ar e in the results section. ALANINE AMINOTRANSFERASE Routine 11/10/2019 9:07 Diabetes Nona itus Results for this (ALT), S/P AM CDT Type 2 (HCC) procedure are i n the results section. ASPARTATE Routine 11/10/2019 9:07 Diabetes Mellitus Results for this AMINOTRANSFERASE (AST), AM CDT Type 2 (HCC) proc edure are in S/P the results section. SODIUM, S/P Routine 11/10/2019 9:07 Diabetes Mellitus Results for this AM CDT Type 2 (HCC) procedure are i n the results section. POTASSIUM, S/P Routine 11/10/2019 9:07 Diabetes Mellitus Resul ts for this AM CDT Type 2 (HCC) procedure are i n the results section. HEMOGLOBIN A1C, B Routine 11/10/2019 9:07 Diabetes Mellitus Re sults for this AM CDT Type 2 (HCC) procedure are i n the results section. GLUCOSE, FASTING, S/P Routine 11/10/2019 9:07 Diabetes Mellitu s Results for this AM CDT Type 2 (HCC) procedure are i n the results section. CREATININE WITH EGFR, Routine 11/10/2019 9:07 Diabetes Mellitu s Results for this S/P AM CDT Type 2 (HCC) procedure are i n the results section. BICARBONATE, B/S/P Routine 11/10/2019 9:07 Diabetes Mellitus R esults for this AM CDT Type 2 (HCC) procedure are i n the results section. documented in this encounter Results Creatinine with Estimated GFR (11/10/2019 9:07 AM CDT) athologist Signature Creatinine 1.05 0.74 - 11/10/2019 [place] 1.35 mg/dL 11:22 AM CDT eGFR-Black/Afric 84 >=60 11/10/2019 [facility] an Estonian mL/min/BSA 11:22 AM CDT Comment: ----ADDITIONAL INFORMATION---- [...] Organization Address City/State/ZIP Code Phon e Number [facility]- [address] [place] [address] [facility] [place] [facility] [place] [address] System in [place] [address] Bicarbonate (11/10/2019 9:07 AM CDT) athologist Signature Bicarbonate, P 22 22 - 29 11/10/2019 [place] mmol/L 11:22 AM CDT Specimen Anatomical Collection Method Collection Time Receive d Time (Source) Location / / Volume Laterality Blood (Blood, 11/10/2019 9:07 AM 11/10/19 20 Venous) CDT 10:28 AM CDT Raj Navarro M.D., Ph.D. LAB BLOOD ADD-ON Performing Organization Address City/State/ZIP Code Phon e Number [facility]- [address] [place] [address] [facility] [place] [address] System in [place] [address] Potassium (11/10/2019 9:07 AM CDT) P athologist Signature Potassium, P 4.7 3.6 - 5.2 11/10/2019 [place] mmol/L 11:22 AM CDT Specimen Anatomical Collection Method Collection Time Receive d Time (Source) Location / / Volume Laterality Blood (Blood, 11/10/2019 9:07 AM 11/10/19 20 Venous) CDT 10:28 AM CDT Raj Navarro M.D., Ph.D. LAB BLOOD ADD-ON Performing Organization Address City/State/ZIP Code Phon e Number [facility]- [address] [place] [address] [facility] [place] [facility] [place] [address] System in [place] [address] (ABNORMAL) Sodium (11/10/2019 9:07 AM CDT) P athologist Signature Sodium, P 134 (L) 135 - 145 11/10/2019 [place] mmol/L 11:22 AM CDT Specimen Anatomical Collection Method Collection Time Receive d Time (Source) Location / / Volume Laterality Blood (Blood, 11/10/2019 9:07 AM 11/10/19 20 Venous) CDT 10:28 AM CDT Raj Navarro M.D., Ph.D. LAB BLOOD ADD-ON Performing Organization Address City/State/ZIP Code Phon e Number [facility]- [address] [place] [address] [facility] [place] [address] System in [place] [address] CBC without Differential (11/10/2019 9:07 AM CDT) P athologist Signature Hemoglobin 14.8 13.2 - 11/10/2019 [...] Ph.D. LAB BLOOD ADD-ON Performing Organization Address City/State/[facility] Code Phon e Number [address] [place] [address] [facility] [place] [address] System [address] ALT (Alanine Aminotransferase) (11/10/2019 9:07 AM CDT) Patholo gist Method Time Signature Alanine 16 7 - 55 11/10/2019 [facility] Aminotransferase U/L 11:22 AM CDT (ALT), P Specimen Anatomical Collection Method Collection Time Receive d Time (Source) Location / / Volume Laterality Blood (Blood, 11/10/2019 9:07 AM 11/10/19 20 Venous) CDT 10:28 AM CDT Raj Navarro M.D., Ph.D. LAB BLOOD ADD-ON Performing Organization Address City/State/ZIP Code Phon e Number [facility]- [address] [address] [facility] [place] [address] System in [place] [facility] AST (Aspartate Aminotransferase) (11/10/2019 9:07 AM CDT) Patholo gist Method Time Signature Aspartate 22 8 - 48 11/10/2019 [facility] Aminotransferase U/L 11:22 AM CDT (AST), P Specimen Anatomical Collection Method Collection Time Receive d Time (Source) Location / / Volume Laterality Blood (Blood, 11/10/2019 9:07 AM 11/10/19 20 Venous) CDT 10:28 AM CDT K Andrea Navarro M.D., Ph.D. LAB BLOOD ADD-ON Performing Organization Address City/State/ZIP Code Phon e Number [facility]- [address] [place] [address] [facility] [place] [address] System in [place] [address] [facility] Lipid Panel (11/10/2019 9:07 AM CDT) P athologist Signature Cholesterol, 118 mg/dL 11/10/2019 [place] [...] Organization Address City/State/ZIP Code Phon e Number [facility]- [address] [place] [address] [place] [address] System in [place] [address] (ABNORMAL) Hemoglobin A1c (11/10/2019 9:07 AM CDT) [...] Organization Address City/State/ZIP Code Phon e Number [facility]- [address] [place] [address] [place] [address] System in [place] [address] (ABNORMAL) Glucose, Fasting (11/10/2019 9:07 AM CDT) [...] K Andrea Navarro M.D., Ph.D. LAB BLOOD NON ADD-ON Performing Organization Address City/State/ZIP Code Phon e Number [facility]- [address] [place] [address] [facility] [place] [address] System in [place] [address] documented in this encounter Visit Diagnoses Diagnosis Diabetes Mellitus Type 2 (HCC) documented in this encounter Additional Health Concerns Assessment Noted Time PHQ-9 Depression Total Score: 1 10/31/2019 2:00 PM CDT documented as of this encounter Care Teams Screen Machine Operator Relationship Specialty Start Date End Date Lucy Morales APRN, C.N.P., PCP - General Internal Medicine 07/1207/24/20 D.N.P. [address] [place] [phone] documented as of this encounter
--- OUTSIDE RECORDS SUMMARY | 2022-02-17 12:18 | XMS_ITS | Encounter Summary ---
:1950 Author Organization [facility] Address [address] [place] [address] Care Team Providers Name Role Phone Franco Molina M.D. Primary Care Provider Reason for Visit Reason Comments Med Refill Encounter Details Date Type Department Care Team Description 05/17/2019 Refill Department of [facility] cent[facility] rosarioRadha epstein, Med Refill Internal Medicine in Leny Owen M.D. [address] [address] [place] [address] [phone] Social History Tobacco Use Types Packs/Day Years Used Date Smoking Tobacco: Never Pipe Smokeless Tobacco: Never Alcohol Use Standard Drinks/Week Comments Not Currently [...] this encounter Miscellaneous Notes Telephone Encounter - Rosemary Amaya - 05/18/2019 10:04 AM CST + H HAULER documented in this encounter Plan of Treatment Upcoming Encounters Date Type Specialty Care Team Description 04/23/2022 Office Visit Cardiovascular Disease Blas Peck M.D. [address] [place] [address] [place] [phone] (Wo rk) documented as of this encounter Visit Diagnoses Not on filedocumented in this encounter Additional Health Concerns Assessment Noted Time PHQ-9 Depression Total Score: 4 09/23/2018 10:37 AM CD T documented as of this encounter Care Teams Rn Admit Relationship Specialty Start Date End Date Franco Molina M.D. PCP - General 09/25/16 07/27/19 documented as of this encounter
--- OUTSIDE RECORDS SUMMARY | 2022-02-17 12:18 | XMS_ITS | Encounter Summary ---
:1950 Author Organization [facility] Address [address] [place] [address] Care Team Providers Name Role Phone Franco Molina M.D. Primary Care Provider Reason for Visit Reason Comments Med Refill Encounter Details Date Type Department Care Team Description 06/20/2019 Refill Department of [facility] Franco Molina M.D. Med Refill Medicine, [facility], [place] [facility] [address] [place] [address] [address] [place] [address] [facility] [phone] Social History Tobacco Use Types Packs/Day Years [...] Visit Cardiovascular Disease Blas Peck M.D. [address] [place] [phone] (Wo rk) documented as of this encounter Visit Diagnoses Not on filedocumented in this encounter Additional Health Concerns Assessment Noted Time PHQ-9 Depression Total Score: 4 09/23/2018 10:37 AM CD T documented as of this encounter Care Teams Proposal Development Manager Relationship Specialty Start Date End Date Franco Molina M.D. PCP - General 09/25/16 07/27/19 documented as of this encounter
--- OUTSIDE RECORDS SUMMARY | 2022-02-17 12:18 | XMS_ITS | Encounter Summary ---
:1950 Author Organization [facility] Address [address] [place] [address] Care Team Providers Name Role Phone Franco Molina M.D. Primary Care Provider Reason for Visit Reason Onset Date Comments Med Refill 04/18/2019 Encounter Details Date Type Department Care Team Description 04/18/2019 Refill Department of [facility] Torey Molina M.D. Med Refill Internal Medicine in [address] [place] [address], [facility] [address] [place] [address] [address] [facility] [place] [address] Social History Tobacco Use [...] encounter Miscellaneous Notes Telephone Encounter - Brenda Church L.PMichelleN. - 04/18/2019 11:49 AM AGRICULTURE SCIENCE TEACHER Please advise. CULTURE SCIENCE TEACHER Telephone Encounter - Marley Fajardo - 04/18/2019 11:43 AM CST Nurse Review: Pharmacy Communication Provider: Franco Molina M.D. Medication: Nystatin/Triam cream Strength: Frequency: Applycream topically twice daily for 7-14 days then as needed for rash [facility]acy: [facility] Comment: Drug not covered. Please advise. Thank you. CULTURE SCIENCE TEACHER documented in this encounter Plan of Treatment Upcoming Encounters Date Type Specialty Care Team Description 04/23/2022 Office Visit Cardiovascular Disease Blas Peck M.D. [address] [place] [phone] (Wo rk) documented as of this encounter Visit Diagnoses Not on filedocumented in this encounter Additional Health Concerns Assessment Noted Time PHQ-9 Depression Total Score: 4 09/23/2018 10:37 AM CD T documented as of this encounter Care Teams Flower Picker Relationship Specialty Start Date End Date Franco Molina M.D. PCP - General 09/25/16 07/27/19 documented as of this encounter
--- OUTSIDE RECORDS SUMMARY | 2022-02-17 12:18 | XMS_ITS | Encounter Summary ---
:1950 Author Organization [facility] Address [address] [place] [address] Care Team Providers Name Role Phone Franco Molina M.D. Primary Care Provider Encounter Details Date Type Department Care Team Description 06/29/2019 Clinical Communication Department of Nabeel Molina M.D. [facility] Internal [address] [place] [address], [facility] in [address] [facility] [id number] [place] [phone] Social History Tobacco Use Types Packs/Day [...] this encounter Miscellaneous Notes Telephone Encounter - Estefany Mark L.P.N. - 06/29/2019 10:50 AM CDT SUBJECTIVE CHIEF COMPLAINT / REASON FOR CALL No chief complaint on file. Information Discussed Called and spoke with patient. Patient was asking questions about all of the changes that have recently been made to his diabetic medications. Patient states that he is very confused and is unsure of what to be taking and what to be stopping. Patient was seen by Dr. Navarro at the [facility] in [place] for this and that is the physician who made the changes to patients medications. Informed patient that he needs to contact that physicians office for clarification. PLAN Disposition/Recommendation: Call your physician in [place] Information/Education: patient/caller able to teach back Caller agreeable to plan of care: yes The following references were used: nursing clinical judgment Telephone Encounter - Vilma Moy - 06/29/2019 10:24 AM CDT Reason for Communication: Patient calling in and would like to talk to Dr. Molina in regards to his diabetic medication that he was recently prescribed and what medication that he is supposed to stop taking. Please advise. Current Can Nursing/Provider leave a detailed message: Did the patient refuse triage through Nurse line? (for symptom based concerns): Action Needed: Call back Name of Medication (if relevant): documented in this encounter Plan of Treatment Upcoming Encounters Date Type Specialty Care Team Description 04/23/2022 Office Visit Cardiovascular Disease Blas Peck M.D. [address] [place] [phone] (Wo rk) documented as of this encounter Visit Diagnoses Not on filedocumented in this encounter Additional Health Concerns Assessment Noted Time PHQ-9 Depression Total Score: 4 09/23/2018 10:37 AM CD T documented as of this encounter Care Teams Amusement Park Entertainer Relationship Specialty Start Date End Date Franco Molina M.D. PCP - General 09/25/16 07/27/19 documented as of this encounter
--- OUTSIDE RECORDS SUMMARY | 2022-02-17 12:18 | XMS_ITS | Encounter Summary ---
:1950 Author Organization [facility] Address [address] [place] [address] Care Team Providers Name Role Phone Franco Molina M.D. Primary Care Provider Reason for Visit Reason Comments Diabetes Mellitus Type 2 Outpatient (Routine) - Closed Specialty Diagnoses / Procedures Referred By Contact Refer red To Contact Endocrinology Diagnoses Diabetes Mellitus Type 2 With Diabetic Neuropathy Hyperglycemic (HCC) Franco Molina M.D. [facility] [address] [place] [address] Referral ID Status Reason Start Date Expiration Date Visits Requ ested Visits Authorized [id number] Closed 05/31/2019 05/30/2020 1 1 Encounter Details Date Type Department Care Team Description 06/13/2019 Comprehensive Visit Division of Franco Moilna M.D. [address], [address] [place] [address] Diabetes Mellitus Endocrinology in Raj Navarro M.D., Ph.D. [address] [place] [phone] Type 2 With [place], [place] Diabetic Neuropathy [address] [facility] Hyperglycemic (HCC) [place], [place] (Primary Dx) [id number] Social History Tobacco Use Types Packs/Day Years [...] Sign Reading Time Taken Comments Blood Pressure 126/75 06/13/2019 1:17 PM DATABASE MARKETING SPECIALIST Pulse 65 06/13/2019 1:17 PM DATABASE MARKETING SPECIALIST Temperature - - Respiratory Rate - - Oxygen Saturation - - Inhaled Oxygen Concentration - - Weight 104 kg (229 lb 8 oz) 06/13/2019 1:17 PM DATABASE MARKETING SPECIALIST Height 175 cm (5' 8.9) 06/13/2019 1:17 PM DATABASE MARKETING SPECIALIST w/ shoes on Body Mass Index 33.99 06/13/2019 1:17 PM DATABASE MARKETING SPECIALIST documented in this encounter Patient Instructions Patient InstructionsRoberto Carlos Gomez M.D., M.P.H. - 06/13/2019 1:30 PM DATABASE MARKETING SPECIALIST Thank you for coming in today! We ordered a few lab tests to better understand how you are doing with your diabetes. We will let you know of the results. When possible, please try to join a gym to get recommendations on increasing her physical activity. We would like you to stop taking your 2 pills for diabetes, your linagliptin and glipizide. Ideally,you should be taking Victoza once a day. If you cannot get this medication d/t high fiore, continue your current medications. You should contact your primary doctor to write a note your insurance to see if you can get Victoza covered. We would also like you to follow-up with her primary care doctor to be seen in the sleep clinic for possible oral appliance fitting as you cannot use the CPAP. BASE MARKETING SPECIALIST documented in this encounter Consult Notes Roberto Carlos Gomez M.D., M.P.H. - 06/13/2019 1:30 PM CST Date of Visit: 06/13/2019 Clinician: Roberto Carlos Gomez M.D., M.P.H. Chief Complaint: Diabetes Mellitus Type 2 Elvis Dawkins is a 69 y.o. male who presents for evaluation of No chief complaint on file.. Patient was diagnosed with type 2 diabetes approximately . Most recent HbA1c is 9.2 on 04/12/2019. Current diabetic medications include: Lantus 20 U at bedtime (rotates injections sites to include thighs, abdomen, and upper arms), linagliptin 5 mg QD, and glipizide 10 mg BID. Prior diabetic medications that the patient has been on include: Was on metformin 10 years ago (discontinued 2 years ago d/t GI side effects) Weight 104kg, appears stable. Diet consists of generally 3 meals per day, endorses snacking intermittently throughout the day (usually chips and diet soda, also sweets when watching his grandchildren). Usually frozen meals (pizza, popcorn chicken) as well as soups. Today had raisin cinnamon toast with butter x2 for breakfast, no lunch today. Endorses inconsistent dieting. Exercise routine: Denies, occasional walking. Patient checks blood sugars 2-3 times per day. Usually checks in the AM (cannot state if before or after meal), again immediately before bedtime. In the morning, generally around 160-180s, and at nightaround 180-200s? (very difficult to get answers) Regarding hypoglycemia, uses peanut butter sandwiches, granola bar, or candy. Denies any history of hospitalizations for hypoglycemia, hyperglycemia/DKA/HHS. Patient lives alone in apartment. Has family in [facility] and [place]. Manages his medications on his own. Diabetes Complications: - Macrovascular: Had CABG x4, denies history of obvious stroke. Denies history of PVD. - Microvascular: Chronic urinary retention (but denies BPH despite being on tamsulosin). Last dilated eye exam fall of 2018, only cataracts which appear stable, denies changes to vision. Last foot examin 2019. Endorses past history of numbness in right foot, denies any recent falls or difficulties with balance. Lab Results Component Value Date CREATININE 1.04 04/12/2019 EGFR 73 04/12/2019 UMCROALBCONC 9.0 09/22/2018 CREATININEUR 103 09/22/2018 ALBCREARATIO 9 09/22/2018 Comorbidities: - Hypertension: in past, but recently has been controlled. On lisinopril 2.5 mg QD (on for 5-7 years, dose decreased a few years ago). BP Readings from Last 1 Encounters: 06/13/19 126/75 - Hyperlipidemia: on problem list, last LDL 65 (06/2018), on atorvastatin 20mg QD. - Thyroid disease: Denies. Lab Results Component Value Date TSH 1.5 09/22/2018 - Depression: Yes, on Prozac 40 mg QD for four years. - Weight status: BMI Readings from Last 1 Encounters: 04/15/19 34.80 kg/m?? - ОЛЬГА: Yes, not on CPAP (2/2 nocturia and panic attacks) - NAFLD: Denies - Smoking Status: smokes pipe 1-2x/d for 50 years. Past Medical History: Past Medical History: Diagnosis Date ??? Anxiety 01/03/2016 ??? Apnea Sleep Obstructive 08/28/2016 ??? Benign Prostatic Hyperplasia Hypertrophy With Obstruction 01/03/2016 ??? Body Mass Index 34.0 To 34.9 Adult 01/03/2016 ??? Callus [place] Foot 04/25/2016 ??? Congestion Nasal 01/03/2016 ??? Constipation 04/11/2015 ??? Coronary Artery Disease (Unspecified) 01/03/2016 ??? Diabetes Mellitus Type 2 With Diabetic Neuropathy (HCC) 01/03/2016 ??? Diverticulosis Colon 04/25/2016 ??? Hay Fever 01/03/2016 ??? Hernia Inguinal Left 12/10/2017 ??? Hyperlipidemia 01/03/2016 ??? 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 Hyponatremia 11/12/2015 ??? Irritable Bowel Syndrome With Constipation 01/03/2016 ??? Numbness 01/03/2016 ??? Overactive Bladder 03/26/2016 ??? Panic Disorder Episodic Paroxysmal Anxiety 01/03/2016 ??? Paraphimosis 10/27/2017 ??? Polyp Colon Adenomatous 02/05/2016 ??? Primary Osteoarthritis Hip Bilateral 08/29/2016 ??? Primary Osteoarthritis Knee Bilateral 12/23/2016 ??? Retention Urinary Chronic 02/14/2016 ??? Rhinitis Allergic 01/03/2016 ??? Spasm Bladder 03/26/2016 ??? Urgency Urinary 05/28/2017 Allergies: Allergies Allergen Reactions ??? Sertraline Other (see comments) ??? Sulfamethoxazole-Trimethoprim Swelling Medications: Current Outpatient Medications Medication Sig Dispense Refill ??? aspirin 81 mg chewable tablet Chew 1 tablet daily. ??? atorvastatin (LIPITOR) 20 mg tablet Take 1 tablet (20 mg total) by mouth at bedtime. 90 tablet 3 ??? blood sugar diagnostic (glucose blood) strips 3 test daily. Whatever is covered by insurance. Dx:E11.9 300 strip 11 ??? blood-glucose meter [facility] Dispense glucose meter, test strips, lancing device, and lancets covered by the patient insurance. Test 3 times per day. Dx: E11.40, E11.65 1 each 0 ??? busPIRone (BUSPAR) 10 mg tablet Take 2 tablets (20 mg total) by mouth 3 (three) times a day. (Patient taking differently: Take 20 mg by mouth 3 (three) times a day. Per patient, taking twice daily ) 540 tablet 3 ??? CONTOUR TEST STRIPS strips USE ONE STRIP TO CHECK GLUCOSE ONCE DAILY BEFORE BREAKFAST 100 strip 4 ??? docusate sodium (for_COLACE) 100 mg capsule Take 100 mg by mouth daily as needed. ??? FLUoxetine (PROzac) 40 mg capsule Take 1 capsule (40 mg total) by mouth every morning. 90 capsule 3 ??? glipiZIDE (GLUCOTROL) 10 mg tablet Take 1 tablet (10 mg total) by mouth 2 (two) times a day before breakfast and dinner. Stop Amaryl 180 tablet 3 ??? ibuprofen (ADVIL,MOTRIN) 200 mg tablet Take 400 mg by mouth 4 (four) times a day. ??? insulin syringe-needle U-100 0.3 mL 31 gauge x 15/64 syringe 1 Injection daily. 100 Syringe 3 ??? lancets Check sugar 3 times daily before meals 300 each 3 ??? LANTUS U-100 INSULIN 100 unit/mL injection Inject 0.2 mL (20 Units total) under the skin daily with dinner. Dose increased on 12/31/2018 20 mL 3 ??? linaGLIPtin (TRADJENTA) 5 mg tablet Take 1 tablet (5 mg total) by mouth daily. 90 tablet 3 ??? lisinopril (PRINIVIL,ZESTRIL) 2.5 mg tablet TAKE 1 TABLET BY MOUTH IN THE MORNING 90 tablet 3 ??? metoprolol tartrate (LOPRESSOR) 25 mg tablet Take 1 tablet (25 mg total) by mouth 2 (two) times a day. 180 tablet 3 ??? nitroglycerin (NITROSTAT) 0.[address] under the tongue. ??? nystatin (NYSTOP) 100,000 unit/gram powder Apply 1 application topically 3 (three) times a day. 60 g 1 ??? oxybutynin (DITROPAN-XL) 10 mg 24 hr tablet Take 1 tablet (10 mg total) by mouth at bedtime. 90 tablet 3 ??? PEPPERMINT OIL ORAL Take 1 capsule by mouth as needed. ??? polyethylene glycol (for_MIRALAX) 17 gram powder packet Take 17 g by mouth daily. ??? PSYLLIUM HUSK (METAMUCIL ORAL) Take 1.7 g by mouth 2 (two) times a day. ??? tamsulosin (FLOMAX) 0.4 mg 24 hr capsule Take 1 capsule (0.4 mg total) by mouth daily. 90 capsule 3 No current facility-administered medications for this visit. Social History: Social History Socioeconomic History ??? Marital status: Spouse name: Not on file ??? Number of children: Not on file ??? Years of education: Not on file ??? Highest education level: Not on file Occupational History ??? 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 Financial resource strain: Not on file ??? Food insecurity Worry: Not on file Inability: Not on file ??? Transportation needs Medical: Not on file Non-medical: Not on file Tobacco Use ??? Smoking status: Never Smoker ??? Smokeless tobacco: Never Used Substance and Sexual Activity ??? Alcohol use: Not Currently Frequency: Never ??? Drug use: No ??? Sexual activity: Defer Lifestyle ??? Physical activity Days per week: Not on file Minutes per session: Not on file ??? Stress: Not on file Relationships ??? Social connections Talks on phone: Not on file Gets together: Not on file Attends judaism service: Not on file Active member of club or organization: Not on file Attends meetings of clubs or organizations: Not on file Relationship status: Not on file ??? Intimate partner violence Fear of current or ex partner: Not on file Emotionally abused: Not on file Physically abused: Not on file Forced sexual activity: Not on file Other Topics Concern ??? Not on file Social History Narrative Caffeine: 1 cup coffee daily Family History: Family History Problem Relation Age of Onset ??? Deep vein thrombosis Father ??? PE - Pulmonary embolism Father ??? Hypertension Mother ??? Diabetes Mother ??? Cataracts Mother ??? Irritable bowel syndrome Mother ??? Colon cancer Mother ??? Irritable bowel syndrome Grandfather ??? Parkinson disease Sister ??? Prostate cancer Brother ??? Appendicitis Paternal Grandfather ??? Accident Brother Review of Systems: 10 point ROS completed and negative unless otherwise stated in HPI. Physical Exam: There were no vitals taken for this visit. Physical Exam: General: alert, oriented, no acute distress, although did have some difficulty recalling the year initially. Regularly has tangential thoughts that require regular redirection. Eyes: Extraocular movements intact, no conjunctival injection, anicteric Thyroid: No thyromegaly, no palpable lymphadenopathy Cardiac: Regular rate and rhythm, no murmurs, gallops,or rubs Lungs: Clear to auscultation bilaterally, no wheezes or rhonchi Neuro: Intention tremor in bilateral upper extremities, strength 5/5 in upper and lower extremities bilaterally, decreased vibratory and pinprick sensation in the bilateral feet, borderline positive Romberg, a reflects sick in the bilateral patellar and Achilles. Extremities: No lower extremity edema, no clubbing, pedal pulses 2+ bilaterally. Skin: no rashes noted, no evidence of acanthosis nigricans, plantar surfaces of feet without lesionsor wounds Labs: Lab Results Component Value Date NA 133 (L) 04/12/2019 K 5.0 04/12/2019 CL 95 (L) 04/12/2019 HCO3 24 04/12/2019 CREATININE 1.04 04/12/2019 EGFR 73 04/12/2019 BUN 12 04/12/2019 ANIONGAP 14 04/12/2019 GLUCOSE 126 04/12/2019 CALCIUM 9.6 04/12/2019 Lab Results Component Value Date WBC 7.3 04/12/2019 HGB 15.6 04/12/2019 HCT 46.5 04/12/2019 MCV 87.7 04/12/2019 PLT 175 04/12/2019 Lab Results Component Value Date HGBA1C 9.2 (H) 04/12/2019 CHOL 130 09/22/2018 HDL 45 09/22/2018 LDLCALC 65 09/22/2018 TRIG 99 09/22/2018 TTLCHOLHDLRT 2.00 07/14/2016 Lab Results Component Value Date TSH 1.5 09/22/2018 Assessment and Plan: Elvis Dawkins is a 69 y.o. male who presents for evaluation of Diabetes Mellitus Type 2. Comorbidities include untreated ОЛЬГА, depression anxiety, hyperlipidemia, and continued smoking. Patient has type 2 diabetes has been not under control. He has a history of frequent snacking, stating that he gets hungry, which may be d/t the combination of a long-acting insulin with his glipizide.These, also in combination with his linagliptin, increases risk for having hypoglycemic episodes, which he says that he occasionally has. These may be causing his snacking episodes, which then resultedin him having hyperglycemic episodes. Given his history, ideally he would be on metformin with another 2nd agent. Given that history was difficult to obtain, it is not clear whether not the metformin was really the cause of his GI complaints. It may be reasonable to trial him again on metformin, however on a sustained release formula to be taken in the middle of a meal. Regardless, it would be reasonable to consider an alternative such as Victoza daily, or some other GLP-1 agonist, particularly in the setting of cardiovascular disease. We would recommend, that if you were able to start on Victoza, he discontinue his current glipizide and linagliptin. If, d/t insurance issues this is not possible, he should continue on his current regimen. A basal bolus insulin regimen would not be appropriate given his inconsistent dietary habits andfrequent snacking. In SGLT2 inhibitor would also not be appropriate given his history of urinary symptoms and renal disease. We have ordered a number of labs to further characterize his diabetes and any possible complications, and will see him back in clinic in 3 months. He also has follow-up appointments with the dietitian and wellness educator later this month. Most importantly, he requires regular a robotic physical activity, to decrease his noticeable central adiposity and improve his insulin sensitivity. This was discussed in detail with him during his visit. He states that he has a stationary bike at home, he was encouraged to begin using this. He was also to consider obtaining a personal banking assistant if affordable and possible. One additional note includes possible cognitive issues, although he has no diagnosis of dementia or memory difficulties. However, multiple times during the interview and physical exam, he had difficulty maintaining linear thought processes, regularly became tangential, and had some difficulty recalling facts. Would strongly recommend that he follow-up with his primary care provider, and undergo more formal cognitive assessment. It also may be reasonable to get his family more involved in his medicalcare. #1 Diabetes Mellitus Type 2 With Diabetic Neuropathy Hyperglycemic (HCC) - Endocrinology - Diabetes consult (clinic) - Basic Metabolic Panel; Future; Expected date: 06/13/2019 - Hepatic Function Panel; Future; Expected date: 06/13/2019 - Glucose, Fasting; Future; Expected date: 06/13/2019 - Hemoglobin A1c; Future; Expected date: 06/13/2019 - CRP (C-Reactive Protein); Future; Expected date: 06/13/2019 - Albumin, Random, Urine; Future; Expected date: 06/13/2019 - Urinalysis with Microscopic: Urine, Clean Catch; Future; Expected date: 06/13/2019 Other orders - Endocrinology office visit (clinic); Future; Expected date: 09/13/2019 - Victoza 2-Satnam 0.6 mg/0.1 mL (18 mg/3 mL) injection; Inject 0.6 mg under the skin daily. If tolerated for first month, increase to 1.2mg daily until follow up., Starting Thu06/13/2019, Until Thu08/12/2019, Normal Orders Placed This Encounter Procedures ??? Basic Metabolic Panel ??? Hepatic Function Panel ??? Glucose, Fasting ??? Hemoglobin A1c ??? CRP (C-Reactive Protein) ??? Albumin, Random, Urine ??? Urinalysis with Microscopic: Urine, Clean Catch ??? Endocrinology office visit (clinic) Case discussed with who agrees with the above plan. Roberto Carlos Gomez M.D., M.P.H. Internal Medicine, PGY-1 [id number] BASE MARKETING SPECIALIST Raj Navarro M.D., Ph.D. - 06/13/2019 1:30 PM CST I reviewed this 69-year-old gentleman with long-term type 2 diabetes mellitus with . Wediscussed weight is options for the management of this diabetes patient. He has abdominal adiposity and a history of frequent snacking especially items like potato chips. He also takes cookies and chocolate with his grandchildren. He also told us that his glucose levels weight is between as low as 70 to 200 mg/dl. It appears to was that his frequent snacking is needed when he is on a combination of an insulin secretagogue and long-acting insulin that may cause periodical low glucose. He does not exercise and also is not on a low glycemic .t We discussed some of the principles of low glycemic diet and recommended that he sees the a dietitian for getting detail advise on dietary changes. He has an appointment to see a financial accounting analyst locally and we encouraged him to keep that appointment. It appears that his main problem is snacking especially glycemic food which he enjoys with his grandchildren whenhe visited the. He also by cookies and chocolates for his grandchildren. It appears that he also has some cognitive issues with the mild memory problems. It would be useful to get a evaluation done by the Neurology group for dealing with dementia. Besides good glycemic control regular aerobic exercise program will help him. I also recommended that he may join a fitness center get training on not only an aerobic exercise program but also a weight training that also would helping to improve his insulin sensitivity and glycemic control. Considering that his main problem is a insulin resistance and abdominal obesity increasing insulin dose and glipizide which also increase insulin secretion is not the ideal treatment. Our recommendation is that he may discontinue glipizide and DPP 4 inhibitor and in that place start taking a DLP 1 agonist such as Victoza or weekly injection of dulaglutide. It appears that the his insurance may not the support this injection but in his case the we feel that the 1 of this medication is very appropriate for him especially in view of his current situation a poor glycemic control and cardiovascular problems. We understand that he discontinued metformin after many years because he started getting diarrhea. It is not tender early clear whether he used to take it metformin during his meal and also whether sustained release metformin was tried. That should be considered as an alternative approach. BASE MARKETING SPECIALIST documented in this encounter Plan of Treatment Upcoming Encounters Date Type Specialty Care Team Description 04/23/2022 Office Visit Cardiovascular Disease Blas Peck M.D. [address] [place] [address] [place] [phone] (Wo rk) documented as of this encounter Results CRP (C-Reactive Protein) (06/14/2019 8:27 AM DATABASE MARKETING SPECIALIST) athologist Signature C-Reactive <3.0 <=8.0 mg/L 06/14/2019 [place] Protein (CRP), 11:12 AM DATABASE MARKETING SPECIALIST P Specimen Anatomical Collection Method Collection Time Receive d Time (Source) Location / / Volume Laterality Blood (Blood, 06/14/2019 8:27 AM 06/14/19 20 Venous) DATABASE MARKETING SPECIALIST 10:31 AM DATABASE MARKETING SPECIALIST Roberto Carlos Gomez M.D., M.P.H. LAB BLOOD ADD-ON Performing Organization Address City/[facility]/ZIP Code Phon e Number [facility]- [address] [place] [address] [place] [address] System in [place] [address] (ABNORMAL) Hemoglobin A1c (06/14/2019 8:27 AM DATABASE MARKETING SPECIALIST) athologist Signature Hemoglobin A1c, 8.9 (H) 4.2 - 5.6 06/14/2019 [place] B % 11:03 AM DATABASE MARKETING SPECIALIST Comment: Hemoglobin A1c values greater than or eq ual to 6.5 percent are diagnostic for diabetes mellitus. ?? Diagnosis should be confirmed by repeat testing. ??In diabet ic patients, HbA1c goals should be discussed with healthcar e provider. Specimen Anatomical Collection Method Collection Time Receive d Time (Source) Location / / Volume Laterality Blood (Blood, 06/14/2019 8:27 AM 06/14/19 20 Venous) DATABASE MARKETING SPECIALIST 10:31 AM DATABASE MARKETING SPECIALIST Roberto Carlos Gomez M.D., M.P.H. LAB BLOOD ADD-ON Performing Organization Address City/State/ZIP Code Phon e Number [facility]- [address] [place] [address] [facility] [place] [address] System in [place] [address] [facility] (ABNORMAL) Glucose, Fasting (06/14/2019 8:27 AM DATABASE MARKETING SPECIALIST) P athologist Signature Glucose, P 154 (H) 70 - 100 06/14/2019 [place] mg/dL 2:05 PM DATABASE MARKETING SPECIALIST Last Intake 14 hr 06/14/2019 [place] 10:30 AM DATABASE MARKETING SPECIALIST Specimen Anatomical Collection Method Collection Time Receive d Time (Source) Location / / Volume Laterality Blood (Blood, 06/14/2019 8:27 AM 06/14/19 20 Venous) DATABASE MARKETING SPECIALIST 10:30 AM DATABASE MARKETING SPECIALIST Roberto Carlos Gomez M.D., M.P.H. LAB BLOOD NON ADD-ON Performing Organization Address City/State/ZIP Code Phon e Number [facility]- [address] [place] [address] [place] [address] System in [place] [address] [facility] Hepatic Function Panel (06/14/2019 8:27 AM DATABASE MARKETING SPECIALIST) Patholo gist Method Time Signature Bilirubin, Total, P 0.8 <=1.2 06/14/2019 [place] mg/dL 10:56 AM DATABASE MARKETING SPECIALIST Bilirubin, Direct, P 0.2 0.0 - 0.3 06/14/2019 [place] mg/dL 10:56 AM DATABASE MARKETING SPECIALIST Aspartate 22 8 - 48 06/14/2019 [place] Aminotransferase U/L 10:56 AM DATABASE MARKETING SPECIALIST (AST), P Alanine 16 7 - 55 06/14/2019 [place] Aminotransferase U/L 10:56 AM DATABASE MARKETING SPECIALIST (ALT), P Alkaline 94 40 - 129 06/14/2019 [place] Phosphatase, P U/L 10:56 AM DATABASE MARKETING SPECIALIST Albumin, P 4.2 3.5 - 5.0 06/14/2019 [place] g/dL 10:56 AM DATABASE MARKETING SPECIALIST Protein, Total, P 6.8 6.3 - 7.9 06/14/2019 [place] g/dL 10:56 AM DATABASE MARKETING SPECIALIST Specimen Anatomical Collection Method Collection Time Receive d Time (Source) Location / / Volume Laterality Blood (Blood, 06/14/2019 8:27 AM 06/14/19 20 Venous) DATABASE MARKETING SPECIALIST 10:31 AM DATABASE MARKETING SPECIALIST Roberto Carlos Gomez M.D., M.P.H. LAB BLOOD ADD-ON Performing Organization Address City/State/ZIP Code Phon e Number [facility]- [address] [place] [address] [facility] [place] [address] System in [place] [address] (ABNORMAL) Basic Metabolic Panel (06/14/2019 8:27 AM DATABASE MARKETING SPECIALIST) P athologist Signature Potassium, P 4.6 3.6 - 5.2 06/14/2019 [place] mmol/L 10:56 AM DATABASE MARKETING SPECIALIST Sodium, P 134 (L) 135 - 145 06/14/2019 [place] mmol/L 10:56 AM DATABASE MARKETING SPECIALIST Chloride, P 98 98 - 107 06/14/2019 [place] mmol/L 10:56 AM DATABASE MARKETING SPECIALIST Bicarbonate, P 24 22 - 29 06/14/2019 [place] mmol/L 10:56 AM DATABASE MARKETING SPECIALIST Anion Gap, P 12 7 - 15 06/14/2019 [place] 10:56 AM DATABASE MARKETING SPECIALIST BUN (Blood Urea 11 8 - 24 06/14/2019 [place] Nitrogen), P mg/dL 10:56 AM DATABASE MARKETING SPECIALIST Creatinine 1.06 0.74 - 06/14/2019 OWAT 1.35 mg/dL 10:56 AM DATABASE MARKETING SPECIALIST eGFR-Black/Afri 83 >=60 06/14/2019 OWAT can Ghanaian mL/min/BSA 10:56 AM DATABASE MARKETING SPECIALIST Comment: ----ADDITIONAL INFORMATION---- Estimated GFR calculated using the 2009 CKD_EPI creatinine equation. eGFR Non-Black/ 72 >=60 mL/min/BSA 06/14/2019 10:56 AM DATABASE MARKETING SPECIALIST OWAT Comment: ----ADDITIONAL INFORMATION---- Estimated GFR calculated using the 2009 CKD_EPI creatinine equation. Calcium, Total, P 9.3 8.8 - 10.2 mg/dL 06/14/2019 10:5 6 AM DATABASE MARKETING SPECIALIST OWAT Glucose, P CANCELED mg/dL 06/14/2019 10:31 AM DATABASE MARKETING SPECIALIST OWAT Comment: Test not performed. See Fasting Glucose result. Result canceled by the ancillary. Specimen Anatomical Collection Method Collection Time Receive d Time (Source) Location / / Volume Laterality Blood (Blood, 06/14/2019 8:27 AM 06/14/19 20 Venous) DATABASE MARKETING SPECIALIST 10:31 AM DATABASE MARKETING SPECIALIST Roberto Carlos Gomez M.D., M.P.H. LAB BLOOD ADD-ON Performing Organization Address City/State/ZIP Code Phon e Number [facility]- [address] [place] [address] [place] [address] System in [place] [address] (ABNORMAL) Urinalysis with Microscopic: Urine, Clean Catch (06/14/2019 8:26 AM DATABASE MARKETING SPECIALIST) P athologist Signature Source Midstream 06/14/2019 FB60 8:41 AM DATABASE MARKETING SPECIALIST Clarity Clear Clear 06/14/2019 FB60 8:41 AM DATABASE MARKETING SPECIALIST Color Yellow 06/14/2019 FB60 8:41 AM DATABASE MARKETING SPECIALIST Comment: ----REFERENCE VALUE---- Colorless Yellow Linda Blood Negative Negative 06/14/2019 8:41 AM DATABASE MARKETING SPECIALIST FB60 Nitrite Negative Negative 06/14/2019 8:41 AM DATABASE MARKETING SPECIALIST FB60 Leukocyte Esterase Negative Negative 06/14/2019 8:41 AM CS T FB60 Protein Negative mg/dL 06/14/2019 8:41 AM DATABASE MARKETING SPECIALIST FB60 Comment: ----REFERENCE VALUE---- Negative Trace Glucose 250 (A) Negative mg/dL 06/14/2019 8:41 AM DATABASE MARKETING SPECIALIST FB 60 Ketones, QI(U) Negative Negative mg/dL 06/14/2019 8:[address] FB60 Bilirubin Negative Negative 06/14/2019 8:41 AM DATABASE MARKETING SPECIALIST FB60 pH 6.0 5.0 - 8.0 06/14/2019 8:41 AM DATABASE MARKETING SPECIALIST FB60 Specific [place] 1.015 1.001 - 1.035 06/14/2019 8:41 AM DATABASE MARKETING SPECIALIST FB60 Urobilinogen 0.2 0.2 - 1.0 mg/dL 06/14/2019 8:41 AM CS T FB60 White Blood Cells None Seen /hpf 06/14/2019 8:59 AM DATABASE MARKETING SPECIALIST FB60 Comment: ----REFERENCE VALUE---- Males: 0-3 Females: 0-10 Unknown: 0-10 Red Blood Cells None Seen 0 - 2 /hpf 06/14/2019 8:59 AM DATABASE MARKETING SPECIALIST FB60 Squamous Cells Occ-3 /hpf 06/14/2019 8:59 AM DATABASE MARKETING SPECIALIST FB 60 Specimen Anatomical Collection Method Collection Time Receive d Time (Source) Location / / Volume Laterality Urine (Urine, 06/14/2019 8:26 AM 06/14/19 20 8:37 Clean Catch) DATABASE MARKETING SPECIALIST AM DATABASE MARKETING SPECIALIST Roberto Carlos Gomez M.D., M.P.H. LAB URINE ORDERABLES Performing Organization Address City/State/ZIP Code Phon e Number [facility]- [address] [place] [address] [facility] [address] [place] [address] System in [place] [address] Albumin, Random, Urine (06/14/2019 8:26 AM DATABASE MARKETING SPECIALIST) athologist Signature Microalbumin <7.0 mg/L 06/14/2019 OWAT 2:18 PM DATABASE MARKETING SPECIALIST Creatinine 102 mg/dL 06/14/2019 OWAT 2:18 PM DATABASE MARKETING SPECIALIST Albumin/Creatinin <7 <17 mg/g 06/14/2019 OWAT e Ratio 2:18 PM DATABASE MARKETING SPECIALIST Comment: This ratio may not correspond with the r eference range because one or both of the values used t o calculate the ratio was above or below the quantificat ion limits. Specimen Anatomical Collection Method Collection Time Receive d Time (Source) Location / / Volume Laterality Urine (Urine, 06/14/2019 8:26 AM 06/14/19 20 Voided) DATABASE MARKETING SPECIALIST 10:30 AM DATABASE MARKETING SPECIALIST Roberto Carlos Gomez M.D., M.P.H. 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 PCP - General 09/25/16 07/27/19 documented as of this encounter
--- OUTSIDE RECORDS SUMMARY | 2022-02-17 12:18 | XMS_ITS | Encounter Summary ---
:1950 Author Organization [facility] Address [address] [place] [address] Care Team Providers Name Role Phone Lucy Morales APRN C.N.P., D.N.P. Primary Care Provider Reason for Visit Reason Comments Med Refill Encounter Details Date Type Department Care Team Description 08/22/2019 Refill Department [facility] Torey Molina M.D. Med Refill Internal Medicine in [address] [place] [address] [address] [facility] [place] [address] Social History Tobacco Use [...] this encounter Miscellaneous Notes Telephone Encounter - Dori Garcia L.P.N. - 08/24/2019 10:07 AM CDT Noted Telephone Encounter - Lucy Morales APRN C.N.P., D.N.P. - 08/24/2019 9:47 AM CDT RX sent documented in this encounter Plan of Treatment Upcoming Encounters Date Type Specialty Care Team Description 04/23/2022 Office Visit Cardiovascular Disease Blas Peck M.D. [address] [place] [phone] (Wo rk) documented as of this encounter Visit Diagnoses Not on filedocumented in this encounter Additional Health Concerns Assessment Noted Time PHQ-9 Depression Total Score: 4 09/23/2018 10:37 AM CD T documented as of this encounter Care Teams Malariologist Relationship Specialty Start Date End Date Lucy Morales APRN, C.N.P., PCP - General Internal Medicine 07/1207/24/20 D.N.P. [address] [facility] [place] [phone] documented as of this encounter
--- OUTSIDE RECORDS SUMMARY | 2022-02-17 12:18 | XMS_ITS | Encounter Summary ---
:1950 Author Organization [facility] Address [address] [place] [address] Care Team Providers Name Role Phone Franco Molina M.D. Primary Care Provider Reason for Visit Reason Comments Med Refill Encounter Details Date Type Department Care Team Description 06/24/2019 Refill Division of Endocrinology in Raj Navarro, Med Refill [place], [place] Denise, Ph.D. [address] [place] [address] [place] [phone] [place], [place] [phone] (Wo rk) Social History Tobacco Use Types [...] Visit Cardiovascular Disease Blas Peck M.D. [address] [place] [phone] (Wo rk) documented as of this encounter Visit Diagnoses Not on filedocumented in this encounter Additional Health Concerns Assessment Noted Time PHQ-9 Depression Total Score: 4 09/23/2018 10:37 AM CD T documented as of this encounter Care Teams Machine Assembler Relationship Specialty Start Date End Date Franco Molina M.D. PCP - General 09/25/16 07/27/19 documented as of this encounter
--- OUTSIDE RECORDS SUMMARY | 2022-02-17 12:18 | XMS_ITS | Encounter Summary ---
:1950 Author Organization [facility] Address [address] [place] [address] Care Team Providers Name Role Phone Franco Molina M.D. Primary Care Provider Reason for Referral Outpatient (Routine) - Closed Specialty Diagnoses / Procedures Referred By Contact Refer red To Contact Urology Sabrina Valadez APRN, C.N.P. [facility] [address] [phone] Referral ID Status Reason Start Date Expiration Date Visits Requ ested Visits Authorized [id number] Closed 05/23/2019 05/22/2020 1 1 PEDIATRIC Reason for Visit Reason Comments Follow-up Outpatient (Routine) - Closed Specialty Diagnoses / Procedures Referred By Contact Refer red To Contact Urology Sabrina Valadez APRN, C.N.P. [facility] [address] [place] [phone] Referral ID Status Reason Start Date Expiration Date Visits Requ ested Visits Authorized [id number] Closed 02/14/2019 02/14/2020 1 1 Encounter Details Date Type Department Care Team Description 05/23/2019 Office Visit Department of Sabrina Valadez Overactive Bladder (Primary Dx); Urology in BRIAN Vu, C.N.P. Benign Prostatic Hyperplasia With Lower Urinary Tract Symptom; [place], [place] [address] Constipation; [address] [place] Diabetes Mellitus Type 2 Wit h Diabetic Neuropathy Hyperglycemic (HCC) [place] [phone] Social History Tobacco Use Types Packs/Day [...] Sign Reading Time Taken Comments Blood Pressure 148/77 05/23/2019 8:12 AM RN PEDIATRIC Pulse 87 05/23/2019 8:12 AM RN PEDIATRIC Temperature 37.4 ??C (99.3 ??F) 05/23/2019 8:12 AM RN PEDIATRIC Respiratory Rate - - Oxygen Saturation - - Inhaled Oxygen Concentration - - Weight - - Height - - Body Mass Index - - documented in this encounter Progress Notes Sabrina Valadez, BRIAN, C.N.P. - 05/23/2019 8:30 AM CST SUBJECTIVE CHIEF COMPLAINT/REASON FOR VISIT BPH with LUTS, chronic prostatitis HISTORY OF PRESENT ILLNESS Elvis is a pleasant 69-year-old male here today for a follow-up for Benign Prostatic Hypertrophy andchronic prostatitis. He takes tamsulosin 0.4 mg oral capsule, 1 capsule daily and oxybutynin 10 mg XL daily. When he was last seen in February 2019, he was found to have recurrent prostatitis. He was given a prescription for levofloxacin 500 mg tablet, 1 tablet daily for 6 weeks. He states that he is not sure that this has been helpful for him, he has been having a lot more trouble with constipation.He describes pain in his abdomen, he states that he has been much more gassy. His bowels have not been normal or typical, he states that the pain he has in his lower abdomen improved after having bowelmovement. AUASS Total Symptom score: 23 /35 Total Problems due to symptoms score: 20/28 Total Quality of Life score: 18/19 Urology AUA total: 61/82 He continues to have issues with uncontrolled diabetes. His most recent A1c was 9.2, this in unchanged from previous reading. He is not sure that his urinary symptoms are made worse by his diabetes. Troy have an appointment later this week with dietitian and diabetic nurse educator. He is encouraged to keep these appointments. The following portions of the patient's history were reviewed and updated as appropriate: allergies,current medications, family history, medical history, social history, surgical history and problem list. REVIEW OF SYSTEMS Gastrointestinal: Positive for constipation. Bowels have not been normal, more gas, stool comes out in small pieces. Having bowel movements relieves abdominal pain somewhat. Takes Miralax prn, has taken Metamucil 2 times in month of May. Genitourinary: Positive for urgency and frequent urination. Pain in lower abdomen through the penis, especially when urinating. Stream is sometimes strong, sometimes weak, no pain with urination. Hasn't been getting up in the night to urinate. Blood sugars have been 120-220 in the morning, has not checked yet today. Psychiatric/Behavioral: Does not think that he snores, doesn't nap during the day. OBJECTIVE Vitals: 05/23/19 0812 BP: 148/77 Pulse: 87 Temp: 37.4 ??C PHYSICAL EXAM Vitals and nursing note reviewed. General: Well developed, well nourished, well groomed male in no acute distress. Neurological: Alert, cooperative, oriented x3. Appropriate mood and affect. Head: Normal appearance, no abnormalities, normocephalic. Neck: Symmetrical and supple, trachea is midline. Cardiac: regular rate, regular rhythm Respiratory: Respirations are unlabored with normal respiratory rate and normal respiratory movements. Normal chest wall expansion without use of accessory muscles. Abdomen: Soft, non-tender, non-distended, obese. Extremities: Warm, without edema or ulcerations. DIAGNOSTIC Postvoid residual by bladder scan 0 mL. ASSESSMENT / PLAN #1 Benign Prostatic Hypertrophy with lower urinary tract symptoms #2 Chronic prostatitis #3 Constipation #4 Uncontrolled diabetes We had an in-depth discussion about his urinary symptoms and possible changes to improve this. I do not feel that more antibiotics are necessary at this time. We discussed that his abdominal pain seems to improve after having bowel movements. He has not been having normal bowel movements lately and is encouraged to take Metamucil and/or MiraLax daily to helpclean out his bowels. We discussed that getting his bowels cleaned out will likely be quite helpful f or the pain that he has been having. If this does not improve after getting his bowels more regulated, we can discuss other urological changes including increasing his Flomax. We discussed how uncontrolled diabetes can affect his urinary symptoms. He is taking his oral medications for diabetic control, he is not always checking his blood sugars in the morning, he feels that there are many things that he does not understand about taking care of his diabetes. He is encouragedto keep his upcoming appointment with dietitian and diabetic nurse educator to hopefully start having better control of blood sugars and therefore better control of his urinary symptoms. I will see him back in clinic in 1 year for recheck of symptoms, sooner if needed. He will contact us if his urinary symptoms do not improve with the above mentioned interventions. All of his questionshave been answered today and he is in agreement with the plans we have made. Signed by: Sabrina Valadez APRN, C.N.P. 05/23/2019 8:14 AM RN PEDIATRIC PEDIATRIC documented in this encounter Plan of Treatment Upcoming Encounters Date Type Specialty Care Team Description 04/23/2022 Office Visit Cardiovascular Disease Blas Peck M.D. 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 PCP - General 09/25/16 07/27/19 documented as of this encounter
--- OUTSIDE RECORDS SUMMARY | 2022-02-17 12:18 | XMS_ITS | Encounter Summary ---
:1950 Author Organization [facility] Address [address] [place] [address] Care Team Providers Name Role Phone Ronald Molina M.D. Primary Care Provider Reason for Referral Outpatient (Routine) - Closed Specialty Diagnoses / Procedures Referred By Contact Refer red To Contact Endocrinology Diagnoses Diabetes Mellitus Type 2 With Diabetic Neuropathy Hyperglycemic (HCC) Ronald Molina M.D. [place] [facility] [address] [facility], [address] [address] Referral ID Status Reason Start Date Expiration Date Visits Requ ested Visits Authorized [id number] Closed 05/31/2019 05/30/2020 1 1 NCT INSTRUCTOR CHEMISTRY Encounter Details Date Type Department Care Team Description 05/31/2019 Clinical Communication Department of Nabeel Molina M.D. [facility] Internal [address] [facility] in [address] [address] [place] [phone] Social History Tobacco Use Types Packs/Day [...] Telephone Encounter - Estefany Mark L.P.N. - 05/31/2019 1:57 PM CST Noted NCT INSTRUCTOR CHEMISTRY Addendum Note - Ronald Molina M.D. - 05/31/2019 1:43 PM ADJUNCT INSTRUCTOR CHEMISTRY Addended by: RONALD MOLINA on: 05/31/2019 01:43 PM Modules accepted: Orders NCT INSTRUCTOR CHEMISTRY Telephone Encounter - Ronald Molina M.D. - 05/31/2019 1:42 PM CST Order for endocrinology consultation at [facility] is in EHR. NCT INSTRUCTOR CHEMISTRY Telephone Encounter - Estefany Mark L.P.N. - 05/31/2019 1:28 PM CST SUBJECTIVE CHIEF COMPLAINT / REASON FOR CALL No chief complaint on file. Information Discussed Called and spoke with patient. Informed him that Endocrinology in [place] is unable to see him. Patient is willing to be seen in [place]. Please place order. Informed patient that [place] will contact him directly to schedule. PLAN Disposition/Recommendation: referral for services Endocrinology Information/Education: patient/caller able to teach back Caller agreeable to plan of care: yes The following references were used: provider Jesse NCT INSTRUCTOR CHEMISTRY Telephone Encounter - Ronald Molina M.D. - 05/31/2019 11:30 AM CST Please call him. He needs to [facility] [place] [facility] Please see the message below. I will request endocrinology consultation at [facility] if he agrees. NCT INSTRUCTOR CHEMISTRY Telephone Encounter - Ronald Molina M.D. - 05/31/2019 11:30 AM CST ----- Message from Radha Lua sent at 05/31/2019 10:47 AM ADJUNCT INSTRUCTOR CHEMISTRY ----- Regarding: Endocrinology Consults Leilani Molina, At this time we are not able to schedule endocrinology consults due to limited access. Please refer patient elsewhere. Radha Pulido NCT INSTRUCTOR CHEMISTRY documented in this encounter Plan of Treatment Upcoming Encounters Date Type Specialty Care Team Description 04/23/2022 Office Visit Cardiovascular Disease Blas Peck M.D. 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 PCP - General 09/25/16 07/27/19 documented as of this encounter
--- OUTSIDE RECORDS SUMMARY | 2022-02-17 12:18 | XMS_ITS | Encounter Summary ---
:1950 Author Organization [facility] Address [address] [place] [address] Care Team Providers Name Role Phone Franco Molina M.D. Primary Care Provider Encounter Details Date Type Department Care Team Description 07/20/2019 Orders Only Department of Renetta Thrasher Diabetes Mellitus Type Nutrition in A, RDN, LD 2 With Diabetic [place], [place] [address] Neuropathy [address] [place], [place] Hyperglycemic (HCC) [place] [address] (Primary Dx) [phone] Social History Tobacco Use Types Packs/Day [...] Office Visit Cardiovascular Disease Blas Peck M.D. 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 PCP - General 09/25/16 07/27/19 documented as of this encounter
--- OUTSIDE RECORDS SUMMARY | 2022-02-17 12:18 | XMS_ITS | Encounter Summary ---
:1950 Author Organization [facility] Address [address] [place] [address] Care Team Providers Name Role Phone Franco Molina M.D. 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 [facility] Coronary Arterial Bypass Gra ft Status Post Personal History Benign Prostatic Hyperplasia With Lower Urinary Tract Symptom Primary Osteoarthritis Knee Right High Risk Medication [address], [address] [place] [address] Referral ID Status Reason Start Date Expiration Date Visits Requ ested Visits Authorized [id number] Closed 04/15/2019 04/14/2020 1 1 Encounter Details Date Type Department Care Team Description 07/15/2019 Virtual Visit Department of Franco Molina M.D . 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 - 07/15/2019 1:45 PM CDT Rooming nurse called him 3 times to connect for telephone visit without success. documented in this encounter Plan of Treatment Upcoming Encounters Date Type Specialty Care Team Description 04/23/2022 Office Visit Cardiovascular Disease Blas Peck M.D. 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 Hyperglycemic (HCC) Hypertensive Heart And Chronic Kidney Di sease Without Heart Failure And With Stage 2 (Mild) Chronic Kidney Disease Coronary Artery Disease Without Angina P ectoris Coronary Arterial Bypass Graft Status Po st Personal History Benign Prostatic Hyperplasia With Lower Urinary Tract Symptom Primary Osteoarthritis Knee Right High Risk Medication documented in this encounter Additional Health Concerns Assessment Noted Time PHQ-9 Depression Total Score: 4 09/23/2018 10:37 AM CD T documented as of this encounter Care Teams Gis Application Developer Relationship Specialty Start Date End Date Franco Molina M.D. PCP - General 09/25/16 07/27/19 documented as of this encounter
--- OUTSIDE RECORDS SUMMARY | 2022-02-17 12:18 | XMS_ITS | Encounter Summary ---
:1950 Author Organization [facility] Address [address] [place] [address] Care Team Providers Name Role Phone Lucy Morales APRN, C.NRah, D.N.P. Primary Care Provider Reason for Referral Outpatient (Routine) - Closed Specialty Diagnoses / Procedures Referred By Contact Refer red To Contact Community Internal Diagnoses Anxiety Panic Disorder Episodic Paroxysmal Anxiety Lucy Morales, [facility] Medicine [place] TORRESN.PMichelle, D.N.P. [address] [place] [phone] Referral ID Status Reason Start Date Expiration Date Visits Requ ested Visits Authorized [id number] Closed 08/29/2019 08/28/2020 1 1 Reason for Visit Reason Comments Panic Attack Discuss medication Hernia Possible hernia Mental Health Problem Knee Pain Right Medication Visit Discuss med for abdominal, u se to take raninitine Encounter Details Date Type Department Care Team Description 08/29/2019 Office Visit Department of Lucy Morales, Anxiety ( Primary Dx); Internal Medicine in [place] TORRESNRah, Panic Disorder Episodic Paroxysmal Anxiety; Geetha Negron.N.P. Insomnia; [address] [place] [address] 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 Hyperglycemic (HCC); [place], [place] Coronary Artery Disease Without Angina Pectoris; [phone] Hyponatremia; [phone] Pain Knee Right (Work) Social History Tobacco Use Types Packs/Day Years [...] Sign Reading Time Taken Comments Blood Pressure 127/79 08/29/2019 10:48 AM CDT Pulse 77 08/29/2019 10:48 AM CDT Temperature 36.7 ??C (98.1 ??F) 08/29/2019 10:48 AM CDT Respiratory Rate 16 08/29/2019 10:48 AM CDT Oxygen Saturation - - Inhaled Oxygen Concentration - - Weight 101 kg (222 lb 7.1 oz) 08/29/2019 10:48 AM CDT Height - - Body Mass Index 32.95 06/13/2019 1:17 PM BRAND LEAD documented in this encounter Patient Instructions Patient InstructionsLucy Morales APRN, C.N.P., D.N.P. - 08/29/2019 11:00 AM CDT Stop the Buspar Cross taper Stop the 40mg prozac Take 20mg of prozac for 1 week WITH 37.5 (1 tab) of Effexor for 1 week Stop prozac and increase the Effexor to 75mg (2 tabs) daily. For panic attacks. Try treating first with non medication options (relaxation, walking) if not getting better take 1 tab of Ativan. Can repeat ativan up to 1 more time per day. Do not drive after taking the Ativan. If you know you are going to be doing something that will likely trigger a panic attack. Take 1 Ativan 30-60 minutes prior. documented in this encounter Progress Notes AndrewLucy APRN, C.N.P., Ebony.N.P. - 08/29/2019 11:00 AM CDT SUBJECTIVE CHIEF COMPLAINT Panic Attack (Discuss medication); Mental Health Problem; Knee Pain (Right ); and Medication Visit, establish care . Elvis is a very pleasant 69 y.o. male who presents for evaluation of multiple chronic concerns and to establish care with new primary care provider. His primary concern today is discussing his ongoing issues with anxiety and panic attacks. He reports he has had anxiety and panic attacks for many yearsand has been trialed on many different medications. He reports that he has mild panic attacks nearlyevery day and has a very bad panic attack 1-2 times weekly. He has been able to identify several things that are likely to trigger panic attack especially medical procedures or anything where he is feeling claustrophobic. He also tends to be triggered by heat in large crowds. He is currently on EsTotf35 mg twice daily. Reports he was on a higher dose and never felt it was very helpful for his anxiety. Currently maintained on Prozac as well. He does report a bit of history of depression as well. Reports he does a lot of worrying and lives alone. Not sure that the Prozac has been very helpful for him. He has been on several different medications for his mood and anxiety in the past. Reports he was on Xanax 4 times daily at 1.4 his panic attacks. He did not like the way this medication made him feel eventually weaned himself off of it. He does not believe he has ever been on Ativan or Klonopin. Hewas on Paxil for several years many years ago. He does feel this was somewhat helpful for his mood and anxiety although it did not really help with the panic. It did help with concentration and his ability to verbalize what he was thinking. He does not believe he has ever been on Celexa, Lexapro or Effexor. He believes he is also on Elavil in the past primarily for insomnia. Did not like the hangoveraffect this medication caused as well as side effects. He reports he continues to have difficulty with insomnia. Trouble falling asleep and staying asleep. He does have sleep apnea. He usually treats his panic attacks non pharmacologically by doing relaxation techniques and distraction. Denies any thoughts of self-harm. Otherwise he has a history of diabetes with hyperglycemia. Last A1c was 8.5. He signed a chronology in June and they had recommended starting Trulicity which he has been taking weekly. Has been on this for about 2 months. A1c has been slowly trending downward. Reports he has been checking his blood sugars 1-2 times daily and it is usually in the mid 100s. He has had a few episodes of blood sugar above 200 but not very many in the last month or so. Denies any vision changes. He discontinued his glipizide at recommendations of endocrinology. He is currently using Lantus between 15 and 20 units daily. He reports he has been working on lifestyle management as well but decreasing his sugar and carbohydrate intake. History of coronary artery disease. Denies any recent chest pain. He does report that he took nitroglycerin about 6 months ago. Was not seen in the ER after this event. Blood pressure is in good range today 127/79. Maintained on metoprolol and lisinopril. Maintained on Lipitor for hyperlipidemia management reports he is tolerating this well. He has had some issues with mild chronic hyponatremia. SOCIAL HISTORY Current type tobacco you user. Denies significant alcohol use. Lives alone independently. PAST MEDICAL HISTORY Patient Active Problem List Diagnosis ??? 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 Coronary Artery Disease Without Angina Pectoris ??? Anxiety ??? Apnea Sleep Obstructive ??? Body Mass Index 34.0 To 34.9 Adult ??? Callus [place] Foot ??? Constipation ??? Congestion Nasal ??? [...] Medication ??? Lower Abdominal Pain Unspecified ??? Polyp Colon Hyperplastic ??? Benign Prostatic Hyperplasia With Lower Urinary Tract Symptom ??? Pain Chest ??? Dyspnea NOS ??? Paraphimosis ??? Hernia Inguinal Left ??? Nicotine Dependence Other Tobacco Product With [...] colon polyps. Repeat in 3 years. [facility]. ??? COLONOSCOPY W/ POLYPECTOMY 05/11/[address]/[place]. Dr. Devi miralasara prep, quality poor. Repeat in 1yr due [...] covered by insurance. Dx:E11.9 ??? blood-glucose meter [facility] [place] Dispense glucose meter, test strips, lancing device, [...] reports taking 15-17.5 today 08/29/19 ) ??? levoFLOXacin (LEVAQUIN) 500 mg tablet Take 1 tablet (500 mg total) by mouth daily for 28 days. ??? lisinopril (PRINIVIL,ZESTRIL) 2.5 mg tablet TAKE 1 TABLET BY MOUTH IN THE MORNING ??? metoprolol tartrate (LOPRESSOR) 25 mg tablet Take 1 tablet by mouth twice daily ??? oxybutynin (DITROPAN-XL) 10 mg 24 hr [...] (0.4 mg total) by mouth daily. ??? FLUoxetine (PROzac) 20 mg tablet Take 1 tablet (20 mg total) by mouth daily. ??? LORazepam (ATIVAN) 0.5 mg tablet Take 1 tablet (0.5 mg total) by mouth 2 (two) times a day as needed for anxiety. ??? nitroglycerin (NITROSTAT) 0.4 mg SL tablet DISSOLVE ONE TABLET UNDER THE TONGUE EVERY 5 MINUTES NEEDED FOR CHEST PAIN. DO NOT EXCEED A TOTAL OF 3 DOSES IN 15 MINUTES AND CALL 911 (Patient not taking: Reported on 08/29/2019) ??? nystatin (NYSTOP) 100,000 unit/gram powder Apply 1 application topically 3 (three) times a day. (Patient not taking: Reported on 08/29/2019 ) ??? PEPPERMINT OIL ORAL Take 1 capsule by mouth as needed. ??? venlafaxine XR (EFFEXOR-XR) 37.5 mg 24 hr capsule Take 1 capsule (37.5 mg total) by mouth daily for 7 days, THEN 2 capsules (75 mg total) daily. ALLERGIES Allergies Allergen Reactions ??? Sertraline Other [...] Speech: Speech is tangential. Behavior: Behavior normal. Thought Content: Thought content normal. Cognition and Memory: Cognition normal. Judgment: Judgment normal. VITAL SIGNS: BP 127/79 (BP Location: Right arm, Patient Position: Sitting, Cuff Size: Large) Pulse 77 Temp 36.7 ??C (Temporal) Resp 16 Wt 101 kg BMI 32.95 kg/m?? ASSESSMENT / PLAN 1. Anxiety 2. Panic Disorder Episodic Paroxysmal Anxiety We had a lengthy discussion today regarding various treatments for anxiety versus panic. We discussed that our treatments for generalized anxiety do not always completely resolve all panic but the goalwould be to reduce the frequency of panic attacks as well as the severity. He does not feel that theProzac has been very helpful in reducing his overall anxiety or improving his mood. Has never been on an SNRI medication. I have suggested we try cross taper from Prozac to Effexor. Looking at his problem list he may have some chronic pain issues as well so if he has some success with the Effexor but not full 6s we could consider switching to Cymbalta which may help with his pain issues. Recommended further cross taper 20 mg of Prozac for 1 week with 37.5 mg of Effexor. After 1 week discontinue the Prozac and increase Effexor to 75 mg daily. We reviewed common side effects associated with this medication he will let me know if he has any issues with this. Denies any thoughts of self-harm. I have recommended we try utilizing Ativan as needed for treatment of acute panic attack. In the past he did not like the way Xanax made him feel reports it made him feel somewhat high. We will see if he has better luck with a longer-acting benzodiazepine. I have encouraged him to use this sparingly and only as needed. Our goal will be that this will not be a daily medication for him. Recommended he try utilizing nonpharmacological management for his panic attacks first and if these are unsuccessful can try the Ativan. He can also utilize the Ativan if he knows he is going to be doing something that often triggers panic 30-60 minutes before he does this activity. Advised him not to drink or drive while taking this medication. - venlafaxine XR (EFFEXOR-XR) 37.5 mg 24 hr capsule; Take 1 capsule (37.5 mg total) by mouth daily for 7 days, THEN 2 capsules (75 mg total) daily. Dispense: 90 capsule; Refill: 3 - FLUoxetine (PROzac) 20 mg tablet; Take 1 tablet (20 mg total) by mouth daily. Dispense: 7 tablet; Refill: 0 - LORazepam (ATIVAN) 0.5 mg tablet; Take 1 tablet (0.5 mg total) by mouth 2 (two) times a day as needed for anxiety. Dispense: 30 tablet; Refill: 0 - [facility] office visit (clinic); Future 3. Insomnia Reports ongoing insomnia. We briefly discussed the possibility of starting something like Remeron but we will wait to see how things are going on the Effexor in get him stabilize from an anxiety standpoint first. If he continues to have insomnia issues we could consider adding the Remeron. 4. Diabetes Mellitus Type 2 With Diabetic Neuropathy Hyperglycemic (HCC) Last A1c was above goal at 8.5. Recently started on Trulicity and he reports his blood sugars have been slowly improving since starting this medication. Also working on utilizing nonpharmacological treatments including diet and exercise. Continue with current dose of Lantus. I agree that it may be worthwhile to consider restarting the metformin and we can discuss this down the road if blood sugars continue to be elevated. He last saw endocrinology in June night encouraged him to contact them to setup a follow-up appointment. 5. Coronary Artery Disease Without Angina Pectoris Last use of nitroglycerin was 6 months ago. Denies any chest pain since then. He did not pursue any evaluation after this episode is a difficult to say if this was related to his coronary artery disease. I have recommended if he has any further episodes of chest pain that he be seen immediately in theemergency department. 6. Hyponatremia History of chronic mild hyponatremia over the last several months. Most recent sodium was a bit below normal. We will see if this improves after discontinuing the SSRI as this can cause hyponatremia. Plan on rechecking sodium in 1 month once he is off the Prozac. - Sodium; Future 7. Pain Knee Right Reports ongoing right knee pain. He has seen orthopedics for this in the past and would like to consider seeing them again. Has done injections in the past but does not feel they lasted him very long. Referral order has been placed. - Orthopedic Surgery - Knee non surgical consult (clinic); Future Recommended Elvis follow up with me in 1 month to see how he is doing on the Effexor Follow up sooner for any new or worsening symptoms. Elvis verbalized understanding of the plan of care and was in agreement. All questions were answered today. Total Time: 45 minutes, greater than 40 minutes spent counseling. documented in this encounter Plan of Treatment Upcoming Encounters Date Type Specialty Care Team Description 04/23/2022 Office Visit Cardiovascular Disease Blas Peck M.D. [address] [place] [phone] (Wo rk) Scheduled Referrals Name Type Priority Associated Diagnoses Order [facility] Internal Outpatient Referral Routine Anxiety Expected: Medicine office Panic Disorder 09/29/2019 visit (clinic) Episodic Paroxysmal (Appro ximate), Anxiety Expires: 08/28/2022 documented as of this encounter Results (ABNORMAL) Sodium (09/27/2019 10:25 AM CDT) P athologist Signature Sodium, P 133 (L) 135 - 145 09/27/2019 [place] mmol/L 1:41 PM CDT Specimen Anatomical Collection Method Collection Time Receive d Time (Source) Location / / Volume Laterality Blood (Blood, 09/27/2019 10:25 09/27/2019 1:09 Venous) AM CDT PM CDT Lucy Morales APRN, C.N.Hugh., D.N.P. LAB BLOOD ADD-ON Performing Organization Address City/State/ZIP Code Phon e Number [facility] [address] [place] [address] [facility] [place] [address] System in [place] [address] documented in this encounter Visit Diagnoses Diagnosis Anxiety - Primary Panic Disorder Episodic Paroxysmal Anxie ty Insomnia 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 Hyperglycemic (HCC) Coronary Artery Disease Without Angina P ectoris Hyponatremia Pain Knee Right documented in this encounter Additional Health Concerns Assessment Noted Time PHQ-9 Depression Total Score: 11 08/29/2019 11:01 AM C DT documented as of this encounter Care Teams Kiln Furniture Caster Relationship Specialty Start Date End Date Lucy Morales APRN, C.N.P., PCP - General Internal Medicine 07/1207/24/20 D.N.P. [address] [place] [phone] documented as of this encounter
--- OUTSIDE RECORDS SUMMARY | 2022-02-17 12:18 | XMS_ITS | Encounter Summary ---
:1950 Author Organization [facility] Address [address] [place] [address] Care Team Providers Name Role Phone Andrew Lucy Serna APRN C.N.PMichelle, D.N.P. Primary Care Provider Reason for Visit Reason Comments Med Refill Encounter Details Date Type Department Care Team Description 07/01/2019 Refill Department of [facility] Torey Molina M.D. Med Refill Internal Medicine in [address] [place] [phone] [facility] [place] [phone] Social History Tobacco Use [...] this encounter Miscellaneous Notes Telephone Encounter - Xena Xiao - 07/02/2019 10:47 AM CDT Nurse review: Unable to forward request to provider; Med list states patient is taking differently. Primary Provider: Franco Molina M.D. documented in this encounter Plan of Treatment Upcoming Encounters Date Type Specialty Care Team Description 04/23/2022 Office Visit Cardiovascular Disease Blas Peck M.D. [address] [facility] [place] [phone] (Wo rk) documented as of this encounter Visit Diagnoses Not on filedocumented in this encounter Additional Health Concerns Assessment Noted Time PHQ-9 Depression Total Score: 4 09/23/2018 10:37 AM CD T documented as of this encounter Care Teams Cath Lab Relationship Specialty Start Date End Date Lucy Morales APRN, C.N.P., PCP - General Internal Medicine 07/1207/24/20 D.N.P. [address] [phone] documented as of this encounter
--- OUTSIDE RECORDS SUMMARY | 2022-02-17 12:18 | XMS_ITS | Encounter Summary ---
:1950 Author Organization [facility] Address [address] [place] [address] Care Team Providers Name Role Phone AndrewTalishaderic Serna APRN C.N.PMichelle, D.N.P. Primary Care Provider Reason for Visit Reason Comments Rx Prior Authorization DENIAL OF VICTOZA 18MG/3ML I NJECTION Encounter Details Date Type Department Care Team Description 06/28/2019 Clinical Division of Heather Jennings Prior Communication [place] Denise (DENIAL OF VICTOZA [address] 18MG/3ML INJECTION) [facility] [phone] [facility] [phone] [phone] Social History Tobacco Use Types Packs/Day Years [...] this encounter Miscellaneous Notes Telephone Encounter - Wallace Jennings M.D. - 06/28/2019 5:45 PM CDT We need to know which medication is approved: Ozempic, Trulicity, Byetta may be the approved GLP-1 receptor agonist. Once we know the 1 the insurance company will pay, than the correct prescription canbe sent. Telephone Encounter - Roberto Carlos Gomez M.D., M.P.H. - 06/28/2019 3:15 PM CDT Leilani Navarro - it appears Victoza has not been approved. Please advise on next steps for Mr. Dawkins. Thank you! Telephone Encounter - Stella oJseph I. - 06/28/2019 10:26 AM CDT The patient???s health insurer has denied prior authorization for VICTOZA 18MG/3ML INJECTION. [place] DENIAL LETTER FOR MORE INFORMATION. Your options: 1. Appeal the decision by reaching out to the patient???s insurer directly. 2. Consider changing the patient???s medication therapy. 3. If not appealing or prescribing a different Rx, the prescription has already been released to thepharmacy so the patient has the option to pay full fiore for the item if desired. A COPY OF THE INITIAL SUBMISSION AND OF THE COMPLETE DENIAL LETTER CAN BE FOUND UNDER THE PATIENT'S MEDIA TAB. If you have any follow-up questions regarding this communication, please contact the Outpatient Pharmaceutical PA department at email address [facility]. Thank you documented in this encounter Plan of Treatment Upcoming Encounters Date Type Specialty Care Team Description 04/23/2022 Office Visit Cardiovascular Disease Blas Peck M.D. [address] [place] [phone] (Wo rk) documented as of this encounter Visit Diagnoses Not on filedocumented in this encounter Additional Health Concerns Assessment Noted Time PHQ-9 Depression Total Score: 4 09/23/2018 10:37 AM CD T documented as of this encounter Care Teams Binding Cutter Relationship Specialty Start Date End Date Lucy Morales APRN, C.N.P., PCP - General Internal Medicine 07/1207/24/20 D.N.PMichelle [address] [place] [phone] documented as of this encounter
--- OUTSIDE RECORDS SUMMARY | 2022-02-17 12:18 | XMS_ITS | Encounter Summary ---
:1950 Author Organization [facility] Address [address] [place] [phone] Care Team Providers Name Role Phone Franco Molina M.D. Primary Care Provider Reason for Visit Reason Comments Diabetes Encounter Details Date Type Department Care Team Description 06/29/2019 Clinical Communication Division of Raj Navarro Endocrinology in [place], [place] Denise, Ph.D. [address] [place] [address] [place] [phone] [place], [place] [phone] Social History Tobacco Use Types Packs/Day Years [...] this encounter Miscellaneous Notes Telephone Encounter - Li Eller R.N., [facility] - 06/29/2019 12:23 PM CDT SUBJECTIVE CHIEF COMPLAINT / REASON FOR CALL Diabetes Information Discussed Patient calls with questions about what medications he should be taking once starting Trulicity. He just received his Trulicity and plans to do his first injection tomorrow morning. He has discontinuedthe oral medications today and understands to continue taking Lantus 20 units every evening. If he gets blood sugars consistently above 180 mg/dL or below 100 mg/dL he will call the diabetes nurses forinsulin dose adjustment. Patient understands the side effects and how to decrease their severity with eating smaller meals, stopping at the first sign of satiety, wearing loose fitting pants, and trying reji to reduce nausea. PLAN Disposition/Recommendation: recommended continue engagement in self-management activities Information/Education: patient/caller able to teach back Caller agreeable to plan of care: yes The following references were used: nursing clinical judgment and other reading the plan of care from her last Endo appointment. Telephone Encounter - Estefany Najera V. - 06/29/2019 10:54 AM CDT Pt called in regards to some questions about his medications and would like to if he should be taking certain since starting his Trulicity. Please call and advise patient. Thank you! RAT END GAIL documented in this encounter Plan of Treatment Upcoming Encounters Date Type Specialty Care Team Description 04/23/2022 Office Visit Cardiovascular Disease Blas Peck M.D. [address] [place] [phone] (Wo rk) documented as of this encounter Visit Diagnoses Not on filedocumented in this encounter Additional Health Concerns Assessment Noted Time PHQ-9 Depression Total Score: 4 09/23/2018 10:37 AM CD T documented as of this encounter Care Teams French Folding Machine Operator Relationship Specialty Start Date End Date Franco Molina M.D. PCP - General 09/25/16 07/27/19 documented as of this encounter
--- OUTSIDE RECORDS SUMMARY | 2022-02-17 12:18 | XMS_ITS | Encounter Summary ---
:1950 Author Organization [facility] Address [address] [place] [address] Care Team Providers Name Role Phone Franco Molina M.D. Primary Care Provider Encounter Details Date Type Department Care Team Description 06/14/2019 Hospital Encounter Department of [place], Diabetes Mellitus Type Laboratory Medicine Denise Azevedo, 2 With Ebony driscoll in [place], M.P.. Neuropathy [address] (HCC) [address] [place] [phone] Social History Tobacco Use Types Packs/Day Years [...] tablet daily. 0 07/09/2020 tablet atorvastatin (LIPITOR) Take 1 tablet (20 mg 90 tablet 3 10/201808/24/2019 20 mg tablet total) by mouth at bedtime. busPIRone (BUSPAR) 10 Take 2 tablets (20 540 tablet 3 201807/04/2019 mg tablet mg total) by mouth 3 (three) times a day. FLUoxetine (PROzac) 40 Take 1 capsule (40 90 capsule 3 08/2408/24/2019 mg capsule mg total) by mouth every morning. glipiZIDE (GLUCOTROL) Take 1 tablet (10 mg 180 tablet 3 09/1108/29/2019 10 mg tablet total) by mouth 2 (two) times a day before breakfast and dinner. Stop Amaryl insulin syringe-needle 1 Injection daily. 100 Syringe 3 04/201803/26/2020 U-100 0.3 mL 31 gauge x 15/64 syringe LANTUS U-100 INSULIN Inject 0.2 mL (20 20 mL 3 01/01/20 19 02/17/2020 100 unit/mL injection Units total) under the skin daily with dinner. Dose increased on 12/31/2018 linaGLIPtin (TRADJENTA) Take 1 tablet (5 mg 90 tablet 3 12/201808/29/2019 5 mg tablet total) by mouth daily. lisinopril TAKE 1 TABLET BY 90 tablet 3 05/19/2019 01/15/20 21 (PRINIVIL,ZESTRIL) 2.5 MOUTH IN THE MORNING mg tablet metoprolol tartrate Take 1 tablet (25 mg 180 tablet 3 201806/21/2019 (LOPRESSOR) 25 mg total) by mouth 2 tablet (two) times a day. nitroglycerin Place under the 0 09/13/20162019 (NITROSTAT) 0.4 mg SL tongue. tablet nystatin (NYSTOP) Apply 1 application 60 g [...] hr capsule mg total) by mouth daily. Victoza 2-Satnam 0.6 Inject 0.6 mg under 3 mL 1 0 06/27/2019 mg/0.1 mL (18 mg/3 mL) the skin daily. If injection tolerated for first month, increase to 1.2mg daily until follow up. documented as of this encounter Plan of Treatment Upcoming Encounters Date Type Specialty Care Team Description 04/23/2022 Office Visit Cardiovascular Disease Blas Peck M.D. [address] [place] [phone] (Wo rk) documented as of this encounter Procedures Procedure Name Priority Date/Time Associated Diagnosis Comme nts ALBUMIN, RANDOM, U Routine 06/14/2019 8:26 AM Diabetes Mellitu s Results for this FOREST ECOLOGY PROFESSOR Type 2 With Diabetic procedu re are in Neuropathy the results Hyperglycemic (HCC) section. URINALYSIS WITH Routine 06/14/2019 8:26 AM Diabetes Mellitus R esults for this MICROSCOPIC FOREST ECOLOGY PROFESSOR Type 2 With Diabetic procedu re are in Neuropathy the results Hyperglycemic (HCC) section. documented in this encounter Results (ABNORMAL) Urinalysis with Microscopic: Urine, Clean Catch (06/14/2019 8:26 AM FOREST ECOLOGY PROFESSOR) P athologist Signature Source Midstream 06/14/2019 FB60 8:41 AM FOREST ECOLOGY PROFESSOR Clarity Clear Clear 06/14/2019 FB60 8:41 AM FOREST ECOLOGY PROFESSOR Color Yellow 06/14/2019 FB60 8:41 AM FOREST ECOLOGY PROFESSOR Comment: ----REFERENCE VALUE---- Colorless Yellow Linda Blood Negative Negative 06/14/2019 8:41 AM FOREST ECOLOGY PROFESSOR FB60 Nitrite Negative Negative 06/14/2019 8:41 AM FOREST ECOLOGY PROFESSOR FB60 Leukocyte Esterase Negative Negative 06/14/2019 8:41 AM CS T FB60 Protein Negative mg/dL 06/14/2019 8:41 AM FOREST ECOLOGY PROFESSOR FB60 Comment: ----REFERENCE VALUE---- Negative Trace Glucose 250 (A) Negative mg/dL 06/14/2019 8:41 AM FOREST ECOLOGY PROFESSOR FB 60 Ketones, QI(U) Negative Negative mg/dL 06/14/2019 8:[address] FB60 Bilirubin Negative Negative 06/14/2019 8:41 AM FOREST ECOLOGY PROFESSOR FB60 pH 6.0 5.0 - 8.0 06/14/2019 8:41 AM FOREST ECOLOGY PROFESSOR FB60 Specific [place] 1.015 1.001 - 1.035 06/14/2019 8:41 AM FOREST ECOLOGY PROFESSOR FB60 Urobilinogen 0.2 0.2 - 1.0 mg/dL 06/14/2019 8:41 AM CS T FB60 White Blood Cells None Seen /hpf 06/14/2019 8:59 AM FOREST ECOLOGY PROFESSOR FB60 Comment: ----REFERENCE VALUE---- Males: 0-3 Females: 0-10 Unknown: 0-10 Red Blood Cells None Seen 0 - 2 /hpf 06/14/2019 8:59 AM FOREST ECOLOGY PROFESSOR FB60 Squamous Cells Occ-3 /hpf 06/14/2019 8:59 AM FOREST ECOLOGY PROFESSOR FB 60 Specimen Anatomical Collection Method Collection Time Receive d Time (Source) Location / / Volume Laterality Urine (Urine, 06/14/2019 8:26 AM 06/14/19 20 8:37 Clean Catch) FOREST ECOLOGY PROFESSOR AM FOREST ECOLOGY PROFESSOR Roberto Carlos Gomez M.D., M.P.H. LAB URINE ORDERABLES Performing Organization Address City/State/ZIP Code Phon e Number [facility]- [address] [place] [address] [facility] [place] [address] System in [place] [address] Albumin, Random, Urine (06/14/2019 8:26 AM FOREST ECOLOGY PROFESSOR) athologist Signature Microalbumin <7.0 mg/L 06/14/2019 [place] 2:18 PM FOREST ECOLOGY PROFESSOR Creatinine 102 mg/dL 06/14/2019 [place] 2:18 PM FOREST ECOLOGY PROFESSOR Albumin/Creatinin <7 <17 mg/g 06/14/2019 [place] e Ratio 2:18 PM FOREST ECOLOGY PROFESSOR Comment: This ratio may not correspond with the r eference range because one or both of the values used t o calculate the ratio was above or below the quantificat ion limits. Specimen Anatomical Collection Method Collection Time Receive d Time (Source) Location / / Volume Laterality Urine (Urine, 06/14/2019 8:26 AM 06/14/19 20 Voided) FOREST ECOLOGY PROFESSOR 10:30 AM FOREST ECOLOGY PROFESSOR Roberto Carlos Gomez M.D., M.P.H. LAB URINE ORDERABLES Performing Organization Address City/State/ZIP Code Phon e Number [facility]- [address] [place] [address] [facility] 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 PCP - General 09/25/16 07/27/19 documented as of this encounter
--- OUTSIDE RECORDS SUMMARY | 2022-02-17 12:18 | XMS_ITS | Encounter Summary ---
:1950 Author Organization [facility] Address [address] [place] [address] Care Team Providers Name Role Phone Franco Molina M.D. Primary Care Provider Encounter Details Date Type Department Care Team Description 06/14/2019 Hospital Encounter Department of [place], Diabetes Mellitus Type Laboratory Medicine Denise Azevedo, 2 With Ebony driscoll in [place], M.P.. Neuropathy [address] (HCC) [address] [place] [phone] Social History Tobacco Use Types Packs/Day Years [...] Office Visit Cardiovascular Disease Blas Peck M.D. [address] [place] [phone] (Wo rk) documented as of this encounter Procedures Procedure Name Priority Date/Time Associated Diagnosis Comme nts HEPATIC FUNCTION Routine 06/14/2019 8:27 AM Diabetes Mellitus Type Results for this PANEL, S HVAC JOURNEYMAN 2 With Diabetic procedure ar e in Neuropathy the results Hyperglycemic (HCC) section. C-REACTIVE PROTEIN Routine 06/14/2019 8:27 AM Diabetes Mellitu s Type Results for this (CRP), S/P HVAC JOURNEYMAN 2 With Diabetic procedure ar e in Neuropathy the results Hyperglycemic (HCC) section. HEMOGLOBIN A1C, B Routine 06/14/2019 8:27 AM Diabetes Mellitus Type Results for this HVAC JOURNEYMAN 2 With Diabetic procedure ar e in Neuropathy the results Hyperglycemic (HCC) section. GLUCOSE, FASTING, Routine 06/14/2019 8:27 AM Diabetes Mellitus Type Results for this S/P HVAC JOURNEYMAN 2 With Diabetic procedure ar e in Neuropathy the results Hyperglycemic (HCC) section. BASIC METABOLIC Routine 06/14/2019 8:27 AM Diabetes Mellitus T ype Results for this PANEL, S/P HVAC JOURNEYMAN 2 With Diabetic procedure ar e in Neuropathy the results Hyperglycemic (HCC) section. documented in this encounter Results CRP (C-Reactive Protein) (06/14/2019 8:27 AM HVAC JOURNEYMAN) athologist Signature C-Reactive <3.0 <=8.0 mg/L 06/14/2019 [place] Protein (CRP), 11:12 AM HVAC JOURNEYMAN P Specimen Anatomical Collection Method Collection Time Receive d Time (Source) Location / / Volume Laterality Blood (Blood, 06/14/2019 8:27 AM 06/14/19 20 Venous) HVAC JOURNEYMAN 10:31 AM HVAC JOURNEYMAN Roberto Carlos Gomez M.D., M.P.H. LAB BLOOD ADD-ON Performing Organization Address City/[facility]/ZIP Code Phon e Number [facility]- [address] [place] [address] [facility] [place] [address] System in [place] [address] (ABNORMAL) Hemoglobin A1c (06/14/2019 8:27 AM HVAC JOURNEYMAN) athologist Signature Hemoglobin A1c, 8.9 (H) 4.2 - 5.6 06/14/2019 [place] B % 11:03 AM HVAC JOURNEYMAN Comment: Hemoglobin A1c values greater than or eq ual to 6.5 percent are diagnostic for diabetes mellitus. ?? Diagnosis should be confirmed by repeat testing. ??In diabet ic patients, HbA1c goals should be discussed with healthcar e provider. Specimen Anatomical Collection Method Collection Time Receive d Time (Source) Location / / Volume Laterality Blood (Blood, 06/14/2019 8:27 AM 06/14/19 20 Venous) HVAC JOURNEYMAN 10:31 AM HVAC JOURNEYMAN Roberto Carlos Gomez M.D., M.P.H. LAB BLOOD ADD-ON Performing Organization Address City/State/ZIP Code Phon e Number [facility]- [address] [place] [address] [facility] [place] [facility] [place] [address] System in [place] [address] (ABNORMAL) Glucose, Fasting (06/14/2019 8:27 AM HVAC JOURNEYMAN) P athologist Signature Glucose, P 154 (H) 70 - 100 06/14/2019 [place] mg/dL 2:05 PM HVAC JOURNEYMAN Last Intake 14 hr 06/14/2019 [place] 10:30 AM HVAC JOURNEYMAN Specimen Anatomical Collection Method Collection Time Receive d Time (Source) Location / / Volume Laterality Blood (Blood, 06/14/2019 8:27 AM 06/14/19 20 Venous) HVAC JOURNEYMAN 10:30 AM HVAC JOURNEYMAN Roberto Carlos Gomez M.D., M.P.H. LAB BLOOD NON ADD-ON Performing Organization Address City/State/ZIP Code Phon e Number [facility]- [address] [place] [address] [facility] [place] [address] System in [place] [address] [facility] Hepatic Function Panel (06/14/2019 8:27 AM HVAC JOURNEYMAN) Patholo gist Method Time Signature Bilirubin, Total, P 0.8 <=1.2 06/14/2019 [place] mg/dL 10:56 AM HVAC JOURNEYMAN Bilirubin, Direct, P 0.2 0.0 - 0.3 06/14/2019 [place] mg/dL 10:56 AM HVAC JOURNEYMAN Aspartate 22 8 - 48 06/14/2019 [place] Aminotransferase U/L 10:56 AM HVAC JOURNEYMAN (AST), P Alanine 16 7 - 55 06/14/2019 [place] Aminotransferase U/L 10:56 AM HVAC JOURNEYMAN (ALT), P Alkaline 94 40 - 129 06/14/2019 [place] Phosphatase, P U/L 10:56 AM HVAC JOURNEYMAN Albumin, P 4.2 3.5 - 5.0 06/14/2019 [place] g/dL 10:56 AM HVAC JOURNEYMAN Protein, Total, P 6.8 6.3 - 7.9 06/14/2019 [place] g/dL 10:56 AM HVAC JOURNEYMAN Specimen Anatomical Collection Method Collection Time Receive d Time (Source) Location / / Volume Laterality Blood (Blood, 06/14/2019 8:27 AM 06/14/19 20 Venous) HVAC JOURNEYMAN 10:31 AM HVAC JOURNEYMAN Roberto Carlos Gomez M.D., M.P.H. LAB BLOOD ADD-ON Performing Organization Address City/State/ZIP Code Phon e Number [facility]- [address] [place] [address] [facility] [place] [facility] [address] System in [place] [address] (ABNORMAL) Basic Metabolic Panel (06/14/2019 8:27 AM HVAC JOURNEYMAN) P athologist Signature Potassium, P 4.6 3.6 - 5.2 06/14/2019 [place] mmol/L 10:56 AM HVAC JOURNEYMAN Sodium, P 134 (L) 135 - 145 06/14/2019 [place] mmol/L 10:56 AM HVAC JOURNEYMAN Chloride, P 98 98 - 107 06/14/2019 [place] mmol/L 10:56 AM HVAC JOURNEYMAN Bicarbonate, P 24 22 - 29 06/14/2019 [place] mmol/L 10:56 AM HVAC JOURNEYMAN Anion Gap, P 12 7 - 15 06/14/2019 [place] 10:56 AM HVAC JOURNEYMAN BUN (Blood Urea 11 8 - 24 06/14/2019 [place] Nitrogen), P mg/dL 10:56 AM HVAC JOURNEYMAN Creatinine 1.06 0.74 - 06/14/2019 [place] 1.35 mg/dL 10:56 AM HVAC JOURNEYMAN eGFR-Black/Afri 83 >=60 06/14/2019 [place] can Indonesian mL/min/BSA 10:56 AM HVAC JOURNEYMAN Comment: ----ADDITIONAL INFORMATION---- Estimated GFR calculated using the 2009 CKD_EPI creatinine equation. eGFR Non-Black/ 72 >=60 mL/min/BSA 06/14/2019 10:56 AM HVAC JOURNEYMAN [facility] Comment: ----ADDITIONAL INFORMATION---- Estimated GFR calculated using the 2009 CKD_EPI creatinine equation. Calcium, Total, P 9.3 8.8 - 10.2 mg/dL 06/14/2019 10:5 6 AM HVAC JOURNEYMAN [place] Glucose, P CANCELED mg/dL 06/14/2019 10:31 AM HVAC JOURNEYMAN [facility] Comment: Test not performed. See Fasting Glucose result. Result canceled by the ancillary. Specimen Anatomical Collection Method Collection Time Receive d Time (Source) Location / / Volume Laterality Blood (Blood, 06/14/2019 8:27 AM 06/14/19 20 Venous) HVAC JOURNEYMAN 10:31 AM HVAC JOURNEYMAN Roberto Carlos Gomez M.D., M.P.H. LAB BLOOD ADD-ON Performing Organization Address City/State/ZIP Code Phon e Number 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 PCP - General 09/25/16 07/27/19 documented as of this encounter
--- OUTSIDE RECORDS SUMMARY | 2022-02-17 12:18 | XMS_ITS | Encounter Summary ---
:1950 Author Organization [facility] Address [address] [place] [address] Care Team Providers Name Role Phone Franco Molina M.D. Primary Care Provider Encounter Details Date Type Department Care Team Description 07/15/2019 Clinical Communication Department of Nabeel Molina M.D. [facility] Internal [facility], [facility] in [address] [facility] [id number] [place] [phone] Social History Tobacco Use Types Packs/Day [...] this encounter Miscellaneous Notes Telephone Encounter - Elissa Cortze, L.P.N. - 07/15/2019 2:02 PM CDT 3 attempts made to contact patient with mail box full and unable to leave message. Patients daughtersara also notified of inability to contact patient via telephone documented in this encounter Plan of Treatment Upcoming Encounters Date Type Specialty Care Team Description 04/23/2022 Office Visit Cardiovascular Disease Blas Peck M.D. [address] [place] [phone] (Wo rk) documented as of this encounter Visit Diagnoses Not on filedocumented in this encounter Additional Health Concerns Assessment Noted Time PHQ-9 Depression Total Score: 4 09/23/2018 10:37 AM CD T documented as of this encounter Care Teams Bacteriologist Medical Relationship Specialty Start Date End Date Franco Molina M.D. PCP - General 09/25/16 07/27/19 documented as of this encounter
--- OUTSIDE RECORDS SUMMARY | 2022-02-17 12:18 | XMS_ITS | Encounter Summary ---
:1950 Author Organization [facility] Address [address] [place] [address] Care Team Providers Name Role Phone Lucy Morales APRN C.N.PMichelle, D.N.P. Primary Care Provider Reason for Visit Reason Comments Med Refill Encounter Details Date Type Department Care Team Description 08/25/2019 Refill Department [facility] Torey Molina M.D. Med Refill Internal Medicine in [address] [place] [id number] [place] [phone] Social History Tobacco Use [...] this encounter Miscellaneous Notes Telephone Encounter - Trudi Reza L.P.N. - 08/26/2019 4:06 PM CDT Noted documented in this encounter Plan of Treatment Upcoming Encounters Date Type Specialty Care Team Description 04/23/2022 Office Visit Cardiovascular Disease Blas Peck M.D. [address] [facility] [place] [phone] (Wo rk) documented as of this encounter Visit Diagnoses Not on filedocumented in this encounter Additional Health Concerns Assessment Noted Time PHQ-9 Depression Total Score: 4 09/23/2018 10:37 AM CD T documented as of this encounter Care Teams Residential Lawn Specialist Relationship Specialty Start Date End Date Lucy Morales APRN, C.N.P., PCP - General Internal Medicine 07/1207/24/20 D.N.P. [address] [place] [phone] documented as of this encounter
--- OUTSIDE RECORDS SUMMARY | 2022-02-17 12:18 | XMS_ITS | Encounter Summary ---
:1950 Author Organization [facility] Address [address] [place] [address] Care Team Providers Name Role Phone Franco [...] Disease Without Angina Pectoris Franco Molina M.D. [facility] Coronary Arterial Bypass Gra ft Status Post Personal History Benign Prostatic Hyperplasia With Lower Urinary Tract Symptom Primary Osteoarthritis Knee Right High Risk Medication [address], [address] [address] Referral ID Status Reason Start Date Expiration Date Visits Requ ested Visits Authorized [id number] Closed 04/15/2019 04/14/2020 1 1 Scheduling Instructions Three month follow-up. Need blood tests few days before appointment. 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 [facility] Coronary Arterial Bypass Gra ft Status Post Personal History Apnea Sleep Obstructive Benign Prostatic Hyperplasia With Lower Urinary Tract Symptom Primary Osteoarthritis Knee Right High Risk Medication [address], [address] [place] [address] Referral ID Status Reason Start Date Expiration Date Visits Requ ested Visits Authorized [id number] Closed 12/31/2018 12/31/2019 1 1 Encounter Details Date Type Department Care Team Description 04/15/2019 Office Visit Department of Franco Molina M.D . 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 Hyperglycemic (HCC) (Primary Dx); Community Internal [address], Hyp ertensive Heart And Chronic Kidney Disease Without Heart Failure And With Stage 2 (Mild) Chronic Kidney Disease; Medicine in [place] [address] Coronary Artery Disease Without Angina P ectoris; [place], [place], [place] Coronary Arterial Bypass Gra ft Status Post Personal History; [address] [address] Benign Prostatic Hyperplasia With Lower Urinary Tract Symptom; MARQUEZ MENDOSA Constipa tion; [id number] Primary Osteoarthritis Knee Right; [phone] High Risk Medic ation Social History Tobacco Use Types Packs/Day Years [...] Sign Reading Time Taken Comments Blood Pressure 109/70 04/15/2019 1:53 PM SCRIPT READER Pulse 73 04/15/2019 1:53 PM SCRIPT READER Temperature - - Respiratory Rate 16 04/15/2019 1:53 PM SCRIPT READER Oxygen Saturation - - Inhaled Oxygen Concentration - - Weight 104 kg (228 lb 13.4 oz) 04/15/2019 1:53 PM SCRIPT READER Height 172.7 cm (5' 7.99) 04/15/2019 1:53 PM SCRIPT READER Body Mass Index 34.8 04/15/2019 1:53 PM SCRIPT READER documented in this encounter Progress Notes Franco Molina M.D. - 04/15/2019 2:15 PM CST SUBJECTIVE CHIEF COMPLAINT/ REASON FOR VISIT 1. Follow-up medical problems 2. Discuss test results HISTORY OF PRESENT ILLNESS Elvis Dawkins is a 69 y.o. male who presents to the clinic today for above complaints. He is doing fine. He does not have acute complaint other than constipation and lower abdominal pain. He still has bowel movement. He still have problem with urination. 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 He denies fever, chills, nausea or vomiting. He has rash in his groin. He had blood tests on 04/12/2019. We discussed lab results. Diabetes mellitus was out of control. Hemoglobin A1c was 9.2.He was referred to Endocrinology for consultation and he was no show for an appointment. He does notmonitor blood sugar. He does not follow recommendations. He denies exertional chest pain. He had right knee joint injection on 03/28/2019. He saw Urology on 02/14/2019. It should be noted that he decided not to take Axid. I reviewed and updated medical record. Medication reconciliation was done. I answered all of their questions. Patient does not have additional questions, concerns, or complaints. MEDICATIONS Current Outpatient Medications Medication Sig Dispense Refill ??? aspirin 81 mg chewable tablet Chew 1 tablet daily. ??? atorvastatin (LIPITOR) 20 mg tablet Take 1 tablet (20 mg total) by mouth at bedtime. 90 tablet 3 ??? blood sugar diagnostic (glucose blood) strips 3 test daily. Whatever is covered by insurance. Dx:E11.9 300 strip 11 ??? blood-glucose meter [facility] Dispense glucose meter, test strips, lancing device, [...] DAILY BEFORE BREAKFAST 100 strip 4 ??? FLUoxetine (PROzac) 40 mg capsule Take [...] ??? lisinopril (PRINIVIL,ZESTRIL) 2.5 mg tablet TAKE ONE TABLET BY MOUTH IN THE MORNING 90 tablet 3 ??? metoprolol tartrate (LOPRESSOR) 25 mg tablet Take 1 tablet (25 mg total) by mouth 2 (two) times a day. 180 tablet 3 ??? nitroglycerin (NITROSTAT) 0.[address] under the tongue. ??? oxybutynin (DITROPAN-XL) 10 mg 24 hr tablet Take 1 tablet (10 mg total) by mouth at bedtime. 90 tablet 3 ??? tamsulosin (FLOMAX) 0.4 mg 24 hr capsule Take 1 capsule (0.4 mg total) by mouth daily. 90 capsule 3 ??? docusate sodium (for_COLACE) 100 mg capsule Take 100 mg by mouth daily as needed. ??? nizatidine (AXID) 150 mg capsule Take 1 capsule (150 mg total) by mouth 2 (two) times a day. (Patient not taking: Reported on 04/15/2019 ) 180 capsule 3 ??? PEPPERMINT OIL ORAL Take 1 capsule by mouth as needed. ??? polyethylene glycol (for_MIRALAX) 17 gram powder packet Take 17 g by mouth daily. ??? PSYLLIUM HUSK (METAMUCIL ORAL) Take 1.7 g by mouth 2 (two) times a day. No current facility-administered medications for this visit. ALLERGIES/CONTRAINDICATIONS Allergies Allergen Reactions ??? Sertraline Other (see comments) ??? Sulfamethoxazole-Trimethoprim Swelling SYSTEMS REVIEW Please see history of present illness for pertinent positives, otherwise rest of review of systems negative. MEDICAL HISTORY Past Medical History: Diagnosis Date ??? Anxiety 01/03/2016 ??? Apnea Sleep Obstructive 08/28/2016 ??? Benign Prostatic Hyperplasia Hypertrophy With Obstruction 01/03/2016 ??? Body Mass Index 34.0 To 34.9 Adult 01/03/2016 ??? Callus [place] Foot 04/25/2016 ??? Congestion Nasal 01/03/2016 ??? [...] Four colon polyps. Repeat in 3 years. [facility]. ??? COLONOSCOPY W/ POLYPECTOMY 05/11/[address]/[place]. Dr. Marito davis prep, quality poor. Repeat in 1yr due to poor prep. ??? CORONARY ARTERY BYPASS GRAFTS X 4 05/28/2014 ??? INGUINAL HERNIA REPAIR Bilateral SOCIAL HISTORY Social History Socioeconomic History ??? Marital status: Spouse name: None ??? Number of children: None ??? Years of education: None ??? Highest education level: None Occupational History ??? 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 Financial resource strain: None ??? Food insecurity Worry: None Inability: None ??? Transportation needs Medical: None Non-medical: None Tobacco Use ??? Smoking status: Never Smoker ??? Smokeless tobacco: Never Used Substance and Sexual Activity ??? Alcohol use: Not Currently Frequency: Never ??? Drug use: No ??? Sexual activity: Defer Lifestyle ??? Physical activity Days per week: None Minutes per session: None ??? Stress: None Relationships ??? Social connections Talks on phone: None Gets together: None Attends nondenominational service: None Active member of club or organization: None Attends meetings of clubs or organizations: None Relationship status: None ??? Intimate partner violence Fear of current or ex partner: None Emotionally abused: None Physically abused: None Forced sexual activity: None Other Topics Concern ??? None Social History Narrative Caffeine: 1 cup coffee daily Social History Substance and Sexual Activity Drug Use No Social History Substance and Sexual Activity Alcohol Use Not Currently ??? Frequency: Never FAMILY HISTORY Family History Problem Relation Age of Onset ??? Deep vein thrombosis Father ??? PE - Pulmonary embolism Father ??? Hypertension Mother ??? Diabetes Mother ??? Cataracts Mother ??? Irritable bowel syndrome Mother ??? Colon cancer Mother ??? Irritable bowel syndrome Grandfather ??? Parkinson disease Sister ??? Prostate cancer Brother ??? Appendicitis Paternal Grandfather ??? Accident Brother OBJECTIVE VITAL SIGNS Vitals: 04/15/19 1353 BP: 109/70 Patient Position: Sitting Pulse: 73 Resp: 16 Height: 172.7 cm Weight: 104 kg PHYSICAL EXAMINATION General: Obese. Patient is sitting. No distress. Able to talk without interruption. Head: No facial rash, asymmetry or sinus tenderness. Eyes: PERRLA. EOMI. No pallor, icterus or conjunctivitis. ENT: No nasal congestion, discharge or bleeding. Tongue is moist and midline. No oral lesions. Lymph nodes: No cervical or supraclavicular lymphadenopathy. Peripheral vessels: Good radial pulses. Heart: No carotid bruit. No JVD. Regular rhythm. There is no S3, gallop, murmur or thrill. Lungs: Normal respiratory effort. Clear to auscultation. Abdomen: Obese. Moves with respiration. Bowel sounds present. Soft. No rebound tenderness, guarding or rigidity. Extremities: No clubbing, cyanosis, edema, infection or calf tenderness. Gait: No abnormal gait. Mental: Alert and oriented x 3. Normal mood and affect. ASSESSMENT / PLAN #1 Diabetes Mellitus Type 2 With Diabetic Neuropathy Hyperglycemic (HCC) Diabetes mellitus is not controlled. Recent hemoglobin A1c was 9.2 on 04/12/2019. We discussed self-management goal of diabetes mellitus. Advised him to make an appointment to see Endocrinology, dietitian and diabetes mellitus educator at [facility] in [place]. He will continue ADA diet, regular exercise and current medications. He needs to monitor blood sugar 3 times a day. Will repeat hemoglobin A1c in 3 months. He needs to see eye doctor once a year. 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 Advised him to continue current medications, sodium restriction diet and cardiovascular risk factor modification. Blood pressure goal should be less than 130/80 mm Hg. #3 Coronary Artery Disease Without Angina Pectoris #4 Coronary Arterial Bypass Graft Status Post Personal History He is stable from cardiac standpoint. There is no angina. Needs to continue current medication and cardiovascular risk factor modification. #5 Constipation Advised him to drink enough fluid. He should increase fiber in his diet. He should take Metamucil. #6 Benign Prostatic Hyperplasia With Lower Urinary Tract Symptom He continued to have problem with BPH. He will continue current medications and follow with Urology. #7 Primary Osteoarthritis Knee Right He had right knee joint injection on 03/28/2019. He will follow with Orthopedic. #8 Discussed Test Results I reviewed test results from 04/12/2019. All questions were answered. #9 Follow-up Visit Return to the clinic in three months for review medical problems and discuss test results. He needs to do following tests few days before the appointment: ALT, AST, BMP, CBC, CK and hemoglobin A1c. PT READER documented in this encounter Plan of Treatment Upcoming Encounters Date Type Specialty Care Team Description 04/23/2022 Office Visit Cardiovascular Disease Blas Peck M.D. [address] [phone] (Wo rk) Scheduled Referrals Name Type Priority Associated Diagnoses Order S [facility] Internal Outpatient Referral [facility]ine [facility] Type Expected: Medicine office 2 With Diabetic 0 visit (clinic) Neuropathy (Approximate) , Hyperglycemic (H CC) Expires: Hypertensive Heart And 04/15 Chronic Kidney Disease Without Heart Failure And With Stage 2 (Mild) Chronic Kidney D isease Coronary Artery Disease Without Angina P ectoris Coronary Arterial Bypass Graft Status Post Personal Hi story Benign Prostatic Hyperplasia With Lower Urinary Tract Sy mptom Primary Osteoarthritis Knee Right High Risk Medication documented as of this encounter Results (ABNORMAL) Hemoglobin A1c (08/15/2019 12:25 PM CDT) athologist Signature Hemoglobin A1c, 8.5 (H) 4.2 - 5.6 08/15/2019 [place] B % 4:07 PM CDT Comment: Hemoglobin A1c values greater than or eq ual to 6.5 percent are diagnostic for diabetes mellitus. ?? Diagnosis should be confirmed by repeat testing. ??In diabet ic patients, HbA1c goals should be discussed with healthcar e provider. Specimen Anatomical Collection Method Collection Time Receive d Time (Source) Location / / Volume Laterality Blood (Blood, 08/15/2019 12:25 08/15/2019 3:39 Venous) PM CDT PM CDT Franco Molina M.D. LAB BLOOD ADD-ON Performing Organization Address City/State/ZIP Code Phon e Number [facility]- [address] [place] [address] [place] [address] System in [place] [address] CK (Creatine Kinase) (08/15/2019 12:25 PM CDT) athologist Signature Creatine 272 39 - 308 08/15/2019 [place] Kinase, P U/L 9:49 PM CDT Specimen Anatomical Collection Method Collection Time Receive d Time (Source) Location / / Volume Laterality Blood (Blood, 08/15/2019 12:25 08/15/2019 9:31 Venous) PM CDT PM CDT Phunt Phyo M.D. LAB BLOOD ADD-ON Performing Organization Address City/State/ZIP Code Phon e Number [facility]- [address] [place] [address] [facility] [facility] [place] [address] [facility] [address] ALT (Alanine Aminotransferase) (08/15/2019 12:25 PM CDT) [facility] Method Time Signature Alanine 19 7 - 55 08/15/2019 [place] Aminotransferase U/L 4:02 PM CDT (ALT), P Specimen Anatomical Collection Method Collection Time Receive d Time (Source) Location / / Volume Laterality Blood (Blood, 08/15/2019 12:25 08/15/2019 3:38 Venous) PM CDT PM CDT Phunt Phyo M.D. LAB BLOOD ADD-ON Performing Organization Address City/[facility]/ZIP Code Phon e Number [facility]- [address] [place] [address] [place] [address] System in [place] [address] AST (Aspartate Aminotransferase) (08/15/2019 12:25 PM CDT) [facility] Method Time Signature Aspartate 29 8 - 48 08/15/2019 [place] Aminotransferase U/L 4:02 PM CDT (AST), P Specimen Anatomical Collection Method Collection Time Receive d Time (Source) Location / / Volume Laterality Blood (Blood, 08/15/2019 12:25 08/15/2019 3:38 Venous) PM CDT PM CDT Phunt Phyo M.D. LAB BLOOD ADD-ON Performing Organization Address City/[facility]/ZIP Code Phon e Number [facility]- [address] [place] [address] [place] [address] System in [place] [address] (ABNORMAL) Basic Metabolic Panel (08/15/2019 12:25 PM CDT) P athologist Signature Potassium, P 4.5 3.6 - 5.2 08/15/2019 [place] mmol/L 4:02 PM CDT Sodium, P 132 (L) 135 - 145 08/15/2019 [place] mmol/L 4:02 PM CDT Chloride, P 96 (L) 98 - 107 08/15/2019 [place] mmol/L 4:02 PM CDT Bicarbonate, P 24 22 - 29 08/15/2019 [place] mmol/L 4:02 PM CDT Anion Gap, P 12 7 - 15 08/15/2019 [place] 4:02 PM CDT BUN (Blood Urea 8 8 - 24 08/15/2019 [place] Nitrogen), P mg/dL 4:02 PM CDT Creatinine 1.09 0.74 - 08/15/2019 [place] 1.35 mg/dL 4:02 PM CDT eGFR-Black/Afri 80 >=60 08/15/2019 [place] can [place] mL/min/BSA 4:02 PM CDT Comment: ----ADDITIONAL INFORMATION---- Estimated GFR calculated using the 2009 CKD_EPI creatinine equation. eGFR Non-Black/ 69 >=60 mL/min/BSA 4:02 PM CDT [place] Comment: ----ADDITIONAL INFORMATION---- Estimated GFR calculated using the 2009 CKD_EPI creatinine equation. Calcium, Total, P 9.0 8.8 - 10.2 mg/dL 08/15/2019 4:02 PM CDT [place] Glucose, P 148 (H) 70 - 140 mg/dL 08/15/2019 4:02 PM CDT O ALEXYS Specimen Anatomical Collection Method Collection Time Receive d Time (Source) Location / / Volume Laterality Blood (Blood, 08/15/2019 12:25 08/15/2019 3:38 Venous) PM CDT PM CDT Franco Molina M.D. LAB BLOOD ADD-ON Performing Organization Address City/State/ZIP Code Phon e Number [facility]- [address] [place] [address] [facility] [place] [place] [address] System in [place] [address] CBC without Differential (08/15/2019 12:25 PM CDT) P athologist Signature Hemoglobin 15.1 13.2 - 08/15/2019 FB60 16.6 g/dL 12:28 PM CDT Hematocrit 44.3 38.3 - 08/15/2019 FB60 48.6 % 12:28 PM CDT Erythrocytes 5.05 4.35 - 08/15/2019 FB60 5.65 12:28 PM CDT x10(12)/L MCV 87.7 78.2 - 08/15/2019 FB60 97.9 fL 12:28 PM CDT RBC Distrib Width 14.0 11.8 - 08/15/2019 FB60 14.5 % 12:28 PM CDT Platelet Count 148 135 - 317 08/15/2019 FB60 x10(9)/L 12:28 PM CDT Leukocytes 6.5 3.4 - 9.6 08/15/2019 FB60 x10(9)/L 12:28 PM CDT Specimen Anatomical Collection Method Collection Time Receive d Time (Source) Location / / Volume Laterality Blood (Blood, 08/15/2019 12:25 08/15/2019 Venous) PM CDT 12:28 PM CDT Franco Molina M.D. LAB BLOOD ADD-ON Performing Organization Address City/State/ZIP Code Phon e Number [facility] [place] [address] [facility] [address] [place] [address] System in [address] documented in this encounter Visit Diagnoses Diagnosis 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 Hyperglycemic (HCC) - Primary Hypertensive Heart And Chronic Kidney Di sease Without Heart Failure And With Stage 2 (Mild) Chronic Kidney Disease Coronary Artery Disease Without Angina P ectoris Coronary Arterial Bypass Graft Status Po st Personal History Benign Prostatic Hyperplasia With Lower Urinary Tract Symptom Constipation Primary Osteoarthritis Knee Right High Risk Medication documented in this encounter Additional Health Concerns Assessment Noted Time PHQ-9 Depression Total Score: 4 09/23/2018 10:37 AM CD T documented as of this encounter Care Teams Candy Dipper Hand Relationship Specialty Start Date End Date Franco Molina M.D. PCP - General 09/25/16 07/27/19 documented as of this encounter
--- OUTSIDE RECORDS SUMMARY | 2022-02-17 12:18 | XMS_ITS | Encounter Summary ---
:1950 Author Organization [facility] Address [address] [place] [address] Care Team Providers Name Role Phone Lucy Morales APRN C.N.PMichelle, D.N.P. 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 levoFLOXacin (LEVAQUIN) Take 1 tablet (500 28 tablet 0 07/1309/01/2019 500 mg tablet mg total) by mouth daily for 28 days. aspirin 81 mg chewable Chew 1 tablet daily. 0 07/09/2020 tablet atorvastatin (LIPITOR) Take 1 tablet (20 mg 90 tablet 3 10/201808/24/2019 20 mg tablet total) by mouth at bedtime. busPIRone (BUSPAR) 10 Take 1 tablet (10 mg 180 tablet 3 06/1208/29/2019 mg tablet total) by mouth 2 (two) times a day. dulaglutide (Trulicity) Inject 0.5 mL (0.75 7 mL 3 11/10/2019 0.75 mg/0.5 mL mg total) under the injection skin every 7 (seven) days. FLUoxetine (PROzac) 40 Take 1 capsule (40 [...] mg tablet metoprolol tartrate Take 1 tablet by 180 tablet 3 06/21/2019 01/14/2021 (LOPRESSOR) 25 mg mouth twice daily tablet nitroglycerin Place under the 0 09/13/20162019 (NITROSTAT) [...] total) by mouth daily. Victoza 2-Satnam 0.6 INJECT 0.6MG UNDER 6 mL 0 06/27/2019 08/29/2019 mg/0.1 mL (18 mg/3 mL) THE SKIN. IF injection TOLERATED FOR FIRSTL MONTH, THEN INCREASE TO 1.2MG DAILY UNTIL FOLLOW UP documented as of this encounter Miscellaneous Notes Result Encounter Note - Jenniffer Jacobson, C.M.A. - 08/18/2019 2:29 PM CDT Name of person contacted: Patient Relationship to patient: Not applicable Call back number: results Brusher And Shearer: Not applicable Information provided: results personal trainer/patient received and understood education/information provided: Yes personal trainer/patient agreed to the Plan of Care: Yes documented in this encounter Plan of Treatment Upcoming Encounters Date Type Specialty Care Team Description 04/23/2022 Office Visit Cardiovascular Disease Blas Peck M.D. [address] [facility] [place] [phone] (Wo rk) documented as of this encounter Procedures Procedure Name Priority Date/Time Associated Diagnosis Comme nts CBC WITHOUT Routine 08/15/2019 12:25 Hypertensive Heart Resul ts for this DIFFERENTIAL, B PM CDT And Chronic Kidney proced ure are in Disease Without the results Heart Failure And section. With Stage 2 (Mild) Chronic Kidney Disease ALANINE AMINOTRANSFERASE Routine 08/15/2019 12:25 Hypertensive Heart Results for this (ALT), S/P PM CDT And Chronic Kidney procedure are in Disease Without the results Heart Failure And section. With Stage 2 (Mild) Chronic Kidney Disease High Risk Medication ASPARTATE Routine 08/15/2019 12:25 Hypertensive Heart Resul ts for this AMINOTRANSFERASE (AST), PM CDT And Chronic Kidne y procedure are in S/P Disease Without the results Heart Failure And section. With Stage 2 (Mild) Chronic Kidney Disease High Risk Medication HEMOGLOBIN A1C, B Routine 08/15/2019 12:25 Diabetes Mellitus R esults for this PM CDT Type 2 With Diabetic procedu re are in Neuropathy the results Hyperglycemic (HCC) section. CREATINE KINASE (CK), S Routine 08/15/2019 12:25 Hypertensive Heart Results for this PM CDT And Chronic Kidney procedure are in Disease Without the results Heart Failure And section. With Stage 2 (Mild) Chronic Kidney Disease High Risk Medication BASIC METABOLIC PANEL, Routine 08/15/2019 12:25 Diabetes Melli tus Results for this S/P PM CDT Type 2 With Diabetic procedu re are in Neuropathy the results Hyperglycemic (H CC) section. 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 LAB BLOOD ADD-ON Performing Organization Address City/State/ZIP Code Phon e Number [facility] [address] [place] [address] [facility] [place] [address] System in [place] [address] CK (Creatine Kinase) (08/15/2019 12:25 PM CDT) P athologist Signature Creatine 272 39 - 308 08/15/2019 [place] Kinase, P U/L 9:49 PM CDT Specimen Anatomical Collection Method Collection Time Receive d Time (Source) Location / / Volume Laterality Blood (Blood, 08/15/2019 12:25 08/15/2019 9:31 Venous) PM CDT PM CDT Phunt Phyo M.D. LAB BLOOD ADD-ON Performing Organization Address City/State/ZIP Code Phon e Number [facility]- [address] [place] [address] [facility] [place] [address] [facility] [address] ALT (Alanine Aminotransferase) (08/15/2019 12:25 PM CDT) Patholo gist Method Time Signature Alanine 19 7 - 55 08/15/2019 [facility] Aminotransferase U/L 4:02 PM CDT (ALT), P Specimen Anatomical Collection Method Collection Time Receive d Time (Source) Location / / Volume Laterality Blood (Blood, 08/15/2019 12:25 08/15/2019 3:38 Venous) PM CDT PM CDT Phunt Phyo M.D. LAB BLOOD ADD-ON Performing Organization Address City/State/ZIP Code Phon e Number [facility]- [address] [place] [address] [facility] [place] [address] System in [place] [address] AST (Aspartate Aminotransferase) (08/15/2019 12:25 PM CDT) Patholo gist Method Time Signature Aspartate 29 8 - 48 08/15/2019 [facility] Aminotransferase U/L 4:02 PM CDT (AST), P Specimen Anatomical Collection Method Collection Time Receive d Time (Source) Location / / Volume Laterality Blood (Blood, 08/15/2019 12:25 08/15/2019 3:38 Venous) PM CDT PM CDT Franco Molina M.D. LAB BLOOD ADD-ON Performing Organization Address City/State/ZIP Code Phon e Number [facility]- [address] [place] [address] [facility] [place] [address] System in [place] [address] (ABNORMAL) Basic Metabolic [...] CDT eGFR-Black/Afri 80 >=60 08/15/2019 [facility] can Ghanaian mL/min/BSA 4:02 PM CDT Comment: ----ADDITIONAL INFORMATION---- [...] e Number [facility]- [address] [place] [address] [facility] [place] [address] System in [place] [address] CBC without Differential (08/15/2019 12:25 PM CDT) [...] Code Phon e Number [facility]- [address] [place] [address] [facility] [address] [place] [address] System [address] documented in this encounter Visit Diagnoses Diagnosis Hypertensive Heart And Chronic Kidney Di sease Without Heart Failure And With Stage 2 (Mild) Chronic Kidney Disease 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 [address] [place] [phone] documented as of this encounter
--- OUTSIDE RECORDS SUMMARY | 2022-02-17 12:18 | XMS_ITS | Encounter Summary ---
:1950 Author Organization [facility] Address [address] [place] [address] Care Team Providers Name Role Phone AndrewLucy alvarez Daphne TORRES, C.N.P., D.N.P. Primary Care Provider Encounter Details Date Type Department Care Team Description 08/04/2019 Orders Only [facility] [place] BRIAN, C.N.P. [address] [place] [address] [place] [address] [phone] (Wo rk) Social History Tobacco Use Types [...] Visit Cardiovascular Disease Blas Peck M.D. [address] [place] [phone] (Wo rk) documented as of this encounter Visit Diagnoses Not on filedocumented in this encounter Additional Health Concerns Assessment Noted Time PHQ-9 Depression Total Score: 4 09/23/2018 10:37 AM CD T documented as of this encounter Care Teams Technical Services Consultant Relationship Specialty Start Date End Date Lucy Morales APRN, C.N.P., PCP - General Internal Medicine 07/1207/24/20 D.N.P. [address] [place] [address] documented as of this encounter
--- OUTSIDE RECORDS SUMMARY | 2022-02-17 12:18 | XMS_ITS | Encounter Summary ---
:1950 Author Organization [facility] Address [address] [place] [address] Care Team Providers Name Role Phone Andrew Lucy Serna APRN, C.N.PMichelle, D.N.P. Primary Care Provider Encounter Details Date Type Department Care Team Description 08/04/2019 Clinical Communication Department of Urology [place] in [place] C.N.PMichelle [place] [address] [place] [phone] Social History Tobacco Use Types Packs/Day Years [...] this encounter Miscellaneous Notes Telephone Encounter - Karley Estevez R.N. - 08/04/2019 4:10 PM CDT Patient informed of Provider Allyson monk, verbalized understanding. Blood sugars have been in the 100's. No further needs. Telephone Encounter - Sabrina Valadez APRN, CMichelleNMichellePMichelle - 08/04/2019 3:48 PM CDT A prescription for levofloxacin is sent to his pharmacy. He has been on this medication before for his prostatitis. He should continue to take Flomax daily, he should take ibuprofen as needed, and should work to get his blood sugars under control. He should notify us if his symptoms do not improve. Telephone Encounter - Karley Estevez R.N. - 08/04/2019 3:27 PM CDT Patient states prostatitis symptoms are worse than previous episode extremely uncomfortable abdomen, penis, groin area. Denies UTI symptoms. Pharmacy in EMR correct. Will contact patient upon Provider Allyson response. Telephone Encounter - Jimena Britt - 08/04/2019 1:54 PM CDT Patient states his prostate problems are out of control right now, please call him back [phone] documented in this encounter Plan of Treatment Upcoming Encounters Date Type Specialty Care Team Description 04/23/2022 Office Visit Cardiovascular Disease Blas Peck M.D. [address] [place] [phone] (Wo rk) documented as of this encounter Visit Diagnoses Not on filedocumented in this encounter Additional Health Concerns Assessment Noted Time PHQ-9 Depression Total Score: 4 09/23/2018 10:37 AM CD T documented as of this encounter Care Teams Supervisor Sawing And Assembly Relationship Specialty Start Date End Date Lucy Morales APRN, C.N.P., PCP - General Internal Medicine 07/1207/24/20 D.N.PMichelle [address] [place] [address] documented as of this encounter
--- OUTSIDE RECORDS SUMMARY | 2022-02-17 12:19 | XMS_ITS | Encounter Summary ---
:1950 Author Organization [facility] Address [address] [place] [address] Care Team Providers Name Role Phone Franco Molina M.D. Primary Care Provider Reason for Visit Reason Comments Care Coordination - Graduation Encounter Details Date Type Department Care Team Description 12/14/2018 Patient Outreach Department of Michelle Taylor rdination - Internal Medicine in [place] [address] [phone] Social History Tobacco Use Types Packs/Day [...] documented as of this encounter Progress Notes Michelle Taylor R, R.N. - 12/14/2018 2:51 PM CDT SUBJECTIVE REASON FOR VISIT Adult Care Coordination program graduation Elvis Dawkins was involved in and had success in the Adult Care Coordination Program. In collaboration with the patient and health care team, Elvis will graduate from the Adult Care CoordinationProgram. ASSESSMENT/PLAN Explained diagnosis and reviewed Plan of Care; patient expressed understanding of the content. The following portions of the patient's history were updated as appropriate: education. No follow-up contact scheduled at this time; patient was provided with the number to contact the health care team with future concerns. documented in this encounter Plan of Treatment Upcoming Encounters Date Type Specialty Care Team Description 04/23/2022 Office Visit Cardiovascular Disease Blas Peck M.D. [address] [place] [phone] (Wo rk) documented as of this encounter Visit Diagnoses Not on filedocumented in this encounter Additional Health Concerns Assessment Noted Time PHQ-9 Depression Total Score: 4 09/23/2018 10:37 AM CD T documented as of this encounter Care Teams Paralegal Legal Secretary Relationship Specialty Start Date End Date Franco Molina M.D. PCP - General 09/25/16 07/27/19 documented as of this encounter
--- OUTSIDE RECORDS SUMMARY | 2022-02-17 12:19 | XMS_ITS | Encounter Summary ---
:1950 Author Organization [facility] Address [address] [place] [address] Care Team Providers Name Role Phone Franco Molina M.D. Primary Care Provider Encounter Details Date Type Department Care Team Description 12/14/2018 Clinical Communication Department of Internal Michelle Taylor, Medicine in [facility] [address] [phone] Social History Tobacco Use Types [...] this encounter Miscellaneous Notes Telephone Encounter - Michelle Taylor R.N. - 12/14/2018 2:58 PM CDT ALEXUS Renee has graduated from care coordination. Care coordination will no longer be following up with patient. Thanks, Michelle Taylor RN Manufacturing Lead documented in this encounter Plan of Treatment Upcoming Encounters Date Type Specialty Care Team Description 04/23/2022 Office Visit Cardiovascular Disease Blas Peck M.D. [address] [place] [address] [place] [phone] (Wo rk) documented as of this encounter Visit Diagnoses Not on filedocumented in this encounter Additional Health Concerns Assessment Noted Time PHQ-9 Depression Total Score: 4 09/23/2018 10:37 AM CD T documented as of this encounter Care Teams Workers' Compensation Hearings Officer Relationship Specialty Start Date End Date Franco Molina M.D. PCP - General 09/25/16 07/27/19 documented as of this encounter
--- OUTSIDE RECORDS SUMMARY | 2022-02-17 12:19 | XMS_ITS | Encounter Summary ---
:1950 Author Organization [facility] Address [address] [place] [address] Care Team Providers Name Role Phone Franco Molina M.D. 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 Dx:E11.9 blood-glucose meter [facility] [place] Dispense glucose 1 [...] 0 ORAL) at bedtime. aspirin 81 mg chewable Chew 1 tablet 0 01/03/2016 07/09/2020 tablet daily. atorvastatin (LIPITOR) Take 1 tablet (20 90 tablet 3 201808/24/2019 20 mg tablet mg total) by mouth at bedtime. busPIRone (BUSPAR) 10 mg Take 2 tablets (20 540 tablet 3 11/201807/04/2019 tablet mg total) by mouth 3 (three) times a day. docusate sodium Take 100 mg by 0 06/12 (for_COLACE) 100 mg mouth daily as capsule needed. FLUoxetine (PROzac) 40 Take 1 capsule (40 90 capsule 3 08/2408/24/2019 mg capsule mg total) by mouth every morning. glipiZIDE (GLUCOTROL) 10 Take 1 tablet (10 180 tablet 3 09/1108/29/2019 mg tablet mg total) by mouth 2 (two) times a day before breakfast and dinner. Stop Amaryl insulin syringe-needle 1 Injection daily. 100 Syringe 3 04/201803/26/2020 U-100 0.3 mL 31 gauge x 15/64 syringe LANTUS U-100 INSULIN 100 Inject 0.2 mL (20 20 mL 3 12/1302/17/2020 unit/mL injection Units total) under the skin daily with dinner. Dose increased on 12/31/2018 linaGLIPtin (TRADJENTA) Take 1 tablet (5 mg 90 tablet 3 12/201808/29/2019 5 mg tablet total) by mouth daily. lisinopril TAKE ONE TABLET BY 90 tablet 3 05/21/20182019 (PRINIVIL,ZESTRIL) 2.5 MOUTH IN THE mg tablet MORNING metoprolol tartrate Take 1 tablet (25 180 tablet 3 9 06/21/2019 (LOPRESSOR) 25 mg tablet mg total) by mouth 2 (two) times a day. nitroglycerin Place under the 0 09/13/20162019 (NITROSTAT) 0.4 mg SL tongue. tablet nizatidine (AXID) 150 mg Take 1 capsule (150 180 capsule 3 1 05/23/2018 04/15/2019 capsule mg total) by mouth 2 (two) times a day. oxybutynin (DITROPAN-XL) Take 1 tablet (10 90 tablet 3 10/1111/16/2019 10 mg 24 hr tablet mg total) by mouth at bedtime. PEPPERMINT OIL ORAL Take 1 capsule by 0 07/09/2020 mouth as needed. tamsulosin (FLOMAX) 0.4 Take 1 capsule (0.4 90 capsule 3 12/201803/14/2020 mg 24 hr capsule mg total) by mouth daily. documented as of this encounter Miscellaneous Notes Result Encounter Note - Estefany Mark, JuancarlosP.N. - 04/14/2019 11:19 AM OBGYN HOSPITALIST PHYSICIAN Name of person contacted: Patient Relationship to patient: Not applicable Call back number: Criminal Justice Teacher: Not applicable Information provided: Patient notified of results and Dr. Molina's recommendations as listed above. Patient stated that he is planning on keeping his appointment for 04/15/2018. nascar pit crew person/patient received and understood education/information provided: Yes nascar pit crew person/patient agreed to the Plan of Care: Yes N HOSPITALIST PHYSICIAN documented in this encounter Plan of Treatment Upcoming Encounters Date Type Specialty Care Team Description 04/23/2022 Office Visit Cardiovascular Disease Blas Peck M.D. [address] [place] [address] [phone] (Wo rk) documented as of this encounter Procedures Procedure Name Priority Date/Time Associated Diagnosis Comme nts CBC WITHOUT Routine 04/12/2019 9:54 Hypertensive Heart Result s for this DIFFERENTIAL, B AM OBGYN HOSPITALIST PHYSICIAN And Chronic Kidney proced ure are in Disease Without the results Heart Failure And section. With Stage 2 (Mild) Chronic Kidney Disease Coronary Artery Disease Without Angina Pectoris High Risk Medication ALANINE AMINOTRANSFERASE Routine 04/12/2019 9:54 Diabetes Nona itus Results for this (ALT), S/P AM OBGYN HOSPITALIST PHYSICIAN Type 2 With Diabetic procedu re are in Neuropathy the results Hyperglycemic (H CC) section. Coronary Artery Disease Without Angina Pectoris High Risk Medication ASPARTATE Routine 04/12/2019 9:54 Diabetes Mellitus Results for this AMINOTRANSFERASE (AST), AM OBGYN HOSPITALIST PHYSICIAN Type 2 With Diabe tic procedure are in S/P Neuropathy the results Hyperglycemic (H CC) section. Coronary Artery Disease Without Angina Pectoris High Risk Medication HEMOGLOBIN A1C, B Routine 04/12/2019 9:54 Diabetes Mellitus Re sults for this AM OBGYN HOSPITALIST PHYSICIAN Type 2 With Diabetic procedu re are in Neuropathy the results Hyperglycemic (H CC) section. Coronary Artery Disease Without Angina Pectoris High Risk Medication CREATINE KINASE (CK), S Routine 04/12/2019 9:54 Diabetes Melli tus Results for this AM OBGYN HOSPITALIST PHYSICIAN Type 2 With Diabetic procedu re are in Neuropathy the results Hyperglycemic (H CC) section. Coronary Artery Disease Without Angina Pectoris BASIC METABOLIC PANEL, Routine 04/12/2019 9:54 Diabetes Mellit us Results for this S/P AM OBGYN HOSPITALIST PHYSICIAN Type 2 With Diabetic procedu re are in Neuropathy the results Hyperglycemic (H CC) section. 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 ?? Diagnosis should be confirmed by repeat testing. ??In diabet ic patients, HbA1c goals should be discussed with healthcar e provider. Specimen Anatomical Collection Method Collection Time Receive d Time (Source) Location / / Volume Laterality Blood (Blood, 04/12/2019 9:54 AM 04/12/20 19 1:26 Venous) OBGYN HOSPITALIST PHYSICIAN PM OBGYN HOSPITALIST PHYSICIAN Phunt Phyo M.D. LAB BLOOD ADD-ON Performing Organization Address City/State/ZIP Code Phon e Number [facility]- [address] [place] [address] [facility] [place] [place] [address] System in [place] [address] CK (Creatine Kinase) (04/12/2019 9:54 AM OBGYN HOSPITALIST PHYSICIAN) P athologist Signature Creatine Kinase 211 39 - 308 04/12/2019 [place] (CK), S U/L 4:05 PM OBGYN HOSPITALIST PHYSICIAN Specimen Anatomical Collection Method Collection Time Receive d Time (Source) Location / / Volume Laterality Blood (Blood, 04/12/2019 9:54 AM 04/12/20 19 3:44 Venous) OBGYN HOSPITALIST PHYSICIAN PM OBGYN HOSPITALIST PHYSICIAN Phunt Phyo M.D. LAB BLOOD ADD-ON Performing Organization Address City/[facility]/ZIP Code Phon e Number [facility]- [address] [place] [address] [facility] [place], [place] [id number] [place] [address] ALT (Alanine Aminotransferase) (04/12/2019 9:54 AM OBGYN HOSPITALIST PHYSICIAN) [facility] gist Method Time Signature Alanine 16 7 - 55 04/12/2019 [facility] Aminotransferase U/L 1:42 PM OBGYN HOSPITALIST PHYSICIAN (ALT), S Specimen Anatomical Collection Method Collection Time Receive d Time (Source) Location / / Volume Laterality Blood (Blood, 04/12/2019 9:54 AM 04/12/20 19 1:26 Venous) OBGYN HOSPITALIST PHYSICIAN PM OBGYN HOSPITALIST PHYSICIAN Phunt Phyo M.D. LAB BLOOD ADD-ON Performing Organization Address City/State/ZIP Code Phon e Number [facility]- [address] [place] [address] [facility] [place] [address] System in [place] [address] AST (Aspartate Aminotransferase) (04/12/2019 9:54 AM OBGYN HOSPITALIST PHYSICIAN) [facility] gist Method Time Signature Aspartate 22 8 - 48 04/12/2019 [place] Aminotransferase U/L 1:42 PM OBGYN HOSPITALIST PHYSICIAN (AST), S Specimen Anatomical Collection Method Collection Time Receive d Time (Source) Location / / Volume Laterality Blood (Blood, 04/12/2019 9:54 AM 04/12/20 19 1:26 Venous) OBGYN HOSPITALIST PHYSICIAN PM OBGYN HOSPITALIST PHYSICIAN Franco Molina M.D. LAB BLOOD ADD-ON Performing Organization Address City/State/ZIP Code Phon e Number [facility]- [address] [place] [address] [place] [address] System in [place] [address] (ABNORMAL) Basic Metabolic Panel (04/12/2019 9:54 AM OBGYN HOSPITALIST PHYSICIAN) P athologist Signature Potassium, S 5.0 3.6 - 5.2 04/12/2019 [place] mmol/L 1:42 PM OBGYN HOSPITALIST PHYSICIAN Sodium, S 133 (L) 135 - 145 04/12/2019 [place] mmol/L 1:42 PM OBGYN HOSPITALIST PHYSICIAN Chloride, S 95 (L) 98 - 107 04/12/2019 [place] mmol/L 1:42 PM OBGYN HOSPITALIST PHYSICIAN Bicarbonate, S 24 22 - 29 04/12/2019 [place] mmol/L 1:42 PM OBGYN HOSPITALIST PHYSICIAN Anion Gap 14 7 - 15 04/12/2019 [place] 1:42 PM OBGYN HOSPITALIST PHYSICIAN BUN (Blood Urea 12 8 - 24 04/12/2019 [place] Nitrogen), S mg/dL 1:42 PM OBGYN HOSPITALIST PHYSICIAN Creatinine 1.04 0.74 - 04/12/2019 [place] 1.35 mg/dL 1:42 PM OBGYN HOSPITALIST PHYSICIAN eGFR-Non 73 >=60 04/12/2019 [place] Black/ mL/min/BSA 1:42 PM OBGYN HOSPITALIST PHYSICIAN [place] Comment: ----ADDITIONAL INFORMATION---- Estimated GFR calculated using the 2009 CKD_EPI creatinine equation. eGFR-Black/ 85 >=60 mL/min/BSA 2018 1:42 PM OBGYN HOSPITALIST PHYSICIAN [facility] Comment: ----ADDITIONAL INFORMATION---- Estimated GFR calculated using the 2009 CKD_EPI creatinine equation. Calcium, Total, S 9.6 8.8 - 10.2 mg/dL 04/12/2019 1:42 PM OBGYN HOSPITALIST PHYSICIAN [place] Glucose, S 126 70 - 140 mg/dL 04/12/2019 1:42 PM OBGYN HOSPITALIST PHYSICIAN O ALEXYS Specimen Anatomical Collection Method Collection Time Receive d Time (Source) Location / / Volume Laterality Blood (Blood, 04/12/2019 9:54 AM 04/12/20 19 1:26 Venous) OBGYN HOSPITALIST PHYSICIAN PM OBGYN HOSPITALIST PHYSICIAN Franco Molina M.D. LAB BLOOD ADD-ON Performing Organization Address City/State/ZIP Code Phon e Number [facility]- [address] [place] [address] [place] [address] System in [place] [address] CBC without Differential (04/12/2019 9:54 AM OBGYN HOSPITALIST PHYSICIAN) P athologist Signature Hemoglobin 15.6 13.2 - 04/12/2019 FB60 16.6 g/dL 10:04 AM OBGYN HOSPITALIST PHYSICIAN Hematocrit 46.5 38.3 - 04/12/2019 FB60 48.6 % 10:04 AM OBGYN HOSPITALIST PHYSICIAN Erythrocytes 5.30 4.35 - 04/12/2019 FB60 5.65 10:04 AM OBGYN HOSPITALIST PHYSICIAN x10(12)/L MCV 87.7 78.2 - 04/12/2019 FB60 97.9 fL 10:04 AM OBGYN HOSPITALIST PHYSICIAN RBC Distrib Width 13.5 11.8 - 04/12/2019 FB60 14.5 % 10:04 AM OBGYN HOSPITALIST PHYSICIAN Platelet Count 175 135 - 317 04/12/2019 FB60 x10(9)/L 10:04 AM OBGYN HOSPITALIST PHYSICIAN Leukocytes 7.3 3.4 - 9.6 04/12/2019 FB60 x10(9)/L 10:04 AM OBGYN HOSPITALIST PHYSICIAN Specimen Anatomical Collection Method Collection Time Receive d Time (Source) Location / / Volume Laterality Blood (Blood, 04/12/2019 9:54 AM 04/12/20 19 9:54 Venous) OBGYN HOSPITALIST PHYSICIAN AM OBGYN HOSPITALIST PHYSICIAN Franco Molina M.D. 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 PCP - General 09/25/16 07/27/19 documented as of this encounter
--- OUTSIDE RECORDS SUMMARY | 2022-02-17 12:19 | XMS_ITS | Encounter Summary ---
:1950 Author Organization [facility] Address [address] [place] [address] Care Team Providers Name Role Phone Franco Molina M.D. Primary Care Provider Reason for Referral Outpatient (Routine) - Closed Specialty Diagnoses / Procedures Referred By Contact Refer red To Contact Urology Sabrina Valadez APRN, C.N.P. [facility] [address] [place] [phone] Referral ID Status Reason Start Date Expiration Date Visits Requ ested Visits Authorized [id number] Closed 12/20/2018 12/20/2019 1 1 Reason for Visit Reason Comments Follow-up Outpatient (Routine) - Closed Specialty Diagnoses / Procedures Referred By Contact Refer red To Contact Urology Sabrina Valadez APRN, C.N.P. [facility] [address] [place] [address] [phone] Referral ID Status Reason Start Date Expiration Date Visits Requ ested Visits Authorized [id number] Closed 11/08/2018 11/08/2019 1 1 Encounter Details Date Type Department Care Team Description 12/20/2018 Office Visit Department of Urology Sabrina Valadez, Benign Prostatic Hyperplasia With Lower Urinary Tract Symptom (Primary Dx); in [place], C.N.P. Overactive Bladder; [place] [address] [place] [address] Prostatitis Chronic [address] [place] [phone] Social History Tobacco Use Types Packs/Day Years [...] Sign Reading Time Taken Comments Blood Pressure 126/70 12/20/2018 8:50 AM CDT Pulse 68 12/20/2018 8:50 AM CDT Temperature 37.3 ??C (99.1 ??F) 12/20/2018 8:50 AM CDT Respiratory Rate 16 12/20/2018 8:50 AM CDT Oxygen Saturation - - Inhaled Oxygen Concentration - - Weight - - Height - - Body Mass Index - - documented in this encounter Progress Notes Sabrina Valadez, BRIAN, C.N.P. - 12/20/2018 9:00 AM CDT SUBJECTIVE CHIEF COMPLAINT/REASON FOR VISIT BPH, Prostatitis HISTORY OF PRESENT ILLNESS Elvis is a pleasant 68 year old male here today for a follow-up of BPH and prostatitis. He was recently treated with levofloxacin 500 mg oral tablet, 1 tablet daily for 21 days. He feels like his urinary symptoms are greatly improved. He continues to take tamsulosin 0.4 mg oral capsule, 1 capsule daily and oxybutynin 10 mg XL daily. He has no urinary concerns at this time. AUASS Total Symptom score: 3 35 Total Problems due to symptoms score: 2 Total Quality of Life score: 12/30 Urology AUA total: The following portions of the patient's history were reviewed and updated as appropriate: allergies,current medications, family history, medical history, social history, surgical history and problem list. REVIEW OF SYSTEMS Gastrointestinal: Negative for constipation. Bowels vary in size, has bowel movements on most days. Genitourinary: Feels like urinary symptoms are ok right now, completed antibiotics as scheduled. Oracle like stream was better than usual today in clinic. Stays well hydrated with water, some coffee. OBJECTIVE Vitals: 12/20/18 0850 BP: 126/70 Patient Position: Sitting Pulse: 68 Temp: 37.3 ??C Resp: 16 TempSrc: Temporal PHYSICAL EXAM Vitals and nursing [...] use of accessory muscles. Abdomen: Soft, non-tender, non-distended Extremities: Warm, without edema or ulcerations. DIAGNOSTIC Uroflow is performed utilizing calibrated electronic equipment. Patient voided 378 mL over 62 seconds. Peak flow 14 mL/sec, average flow 7 mL/sec. Postvoid residual by bladder scan 0 mL. ASSESSMENT / PLAN #1 Benign Prostatic Hypertrophy with Lower Urinary Tract Symptoms #2 Chronic Prostatitis His urinary symptoms have improved greatly and he is currently happy with them. Refill of Flomax is sent to his pharmacy, he has adequate refills of oxybutynin. He should continue to take these medications daily. He should also continue to work on keeping blood sugars under control. We will see him inclinic again in 6 months, sooner if needed. All of his questions are answered today and he is in agreement with the plans we have made. Signed by: Sabrina Valadez APRN, C.N.P. 12/20/2018 8:48 AM documented in this encounter Plan of Treatment Upcoming Encounters Date Type Specialty Care Team Description 04/23/2022 Office Visit Cardiovascular Disease Blas Peck M.D. [address] [place] [address] [phone] (Wo rk) Scheduled Referrals Name Type Priority Associated Diagnoses Order S [facility] Urology office Outpatient Referral Routine Expect ed: visit (clinic) 06/20/2019 (Approximate), Expires: 12/20/2021 documented as of this encounter Visit Diagnoses Diagnosis Benign Prostatic Hyperplasia With Lower Urinary Tract Symptom - Primary Overactive Bladder Prostatitis Chronic documented in this encounter Additional Health Concerns Assessment Noted Time PHQ-9 Depression Total Score: 4 09/23/2018 10:37 AM CD T documented as of this encounter Care Teams Rounder And Backer Relationship Specialty Start Date End Date Franco Molina M.D. PCP - General 09/25/16 07/27/19 documented as of this encounter
--- OUTSIDE RECORDS SUMMARY | 2022-02-17 12:19 | XMS_ITS | Encounter Summary ---
:1950 Author Organization [facility] Address [address] [place] [address] Care Team Providers Name Role Phone Franco Molina M.D. Primary Care Provider Encounter Details Date Type Department Care Team Description 12/02/2018 Clinical Communication Department of [facility] Franco Molina M.D. [address], [address] [place] [phone] Social History Tobacco Use Types Packs/Day [...] Visit Cardiovascular Disease Blas Peck M.D. [address] [place] [address] [phone] (Wo rk) documented as of this encounter Visit Diagnoses Not on filedocumented in this encounter Additional Health Concerns Assessment Noted Time PHQ-9 Depression Total Score: 4 09/23/2018 10:37 AM CD T documented as of this encounter Care Teams Moose Hunter Relationship Specialty Start Date End Date Franco Molina M.D. PCP - General 09/25/16 07/27/19 documented as of this encounter
--- OUTSIDE RECORDS SUMMARY | 2022-02-17 12:19 | XMS_ITS | Encounter Summary ---
:1950 Author Organization [facility] Address [address] [place] [address] Care Team Providers Name Role Phone Franco [...] Without Angina Pectoris Franco Molina M.D. [facility] Coronary Arterial Bypass Gra ft Status Post Personal History Apnea Sleep Obstructive Benign Prostatic Hyperplasia With Lower Urinary Tract Symptom Primary Osteoarthritis Knee Right High Risk Medication [address], [address] [place] [address] Referral ID Status Reason Start Date Expiration Date Visits Requ ested Visits Authorized [id number] Closed 12/31/2018 12/31/2019 1 1 Scheduling Instructions Three month follow-up. Need blood tests few days before appointment. Reason for Visit Reason Comments Follow-up 10/25/18- 12/29/18 Outpatient (Routine) - Closed Specialty Diagnoses / Procedures Referred By Contact Refer red To Contact Community Internal Franco Molina M.D. [facility] [address], [address] [place] [address] Referral ID Status Reason Start Date Expiration Date Visits Requ ested Visits Authorized [id number] Closed 09/24/2018 09/24/2019 1 1 Encounter Details Date Type Department Care Team Description 12/31/2018 Office Visit Department of Franco Molina M.D . 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 Hyperglycemic (HCC) (Primary Dx); Community Internal [address], Hyp ertensive Heart And Chronic Kidney Disease Without Heart Failure And With Stage 2 (Mild) Chronic Kidney Disease; Medicine in [address] Coronary Artery Disease Without Angina P ectoris; [place], [place], [place] Coronary Arterial Bypass Gra ft Status Post Personal History; [address] [id number] Apnea Sleep Obstructive; [place] Benign P rostatic Hyperplasia With Lower Urinary Tract Symptom; [id number] Primary Osteoarthritis Knee Right; [phone] High Risk Medic ation Social History Tobacco [...] Sign Reading Time Taken Comments Blood Pressure 132/70 12/31/2018 9:19 AM CDT Pulse 70 12/31/2018 9:19 AM CDT Temperature - - Respiratory Rate 16 12/31/2018 9:19 AM CDT Oxygen Saturation - - Inhaled Oxygen Concentration - - Weight 103 kg (227 lb 1.2 oz) 12/31/2018 9:19 AM CDT Height 173 cm (5' 8.11) 12/31/2018 9:19 AM CDT Body Mass Index 34.42 12/31/2018 9:19 AM CDT documented in this encounter Progress Notes Franco Molina M.D. - 12/31/2018 9:45 AM CDT SUBJECTIVE CHIEF COMPLAINT/ REASON FOR VISIT 1. Follow-up medical problems 2. Discuss test results 3. Renew medication HISTORY OF PRESENT ILLNESS Elvis Dawkins is a 68 y.o. male who presents to the clinic today for above complaints. He is generally doing well. He does not have acute complaint today. He had blood tests on 12/29/2018. We discussed test results. CBC, BMP, AST, ALT and CK were normal. Hemoglobin A1c was 9.2. It was 9.3 on 09/22/2018. He had abdominal aorta ultrasound yesterday. It was negative for abdominal aortic aneurysm.I reviewed interval history. He saw Cardiology on 11/22/2018. He was no show for cardiology follow-up appointment on 12/15/2018. He reschedule follow-up appointment on 02/02/2019. He has obstructive sleep apnea. He was advised to repeat sleep study. He refused to have further evaluation regarding obstructive sleep apnea. He was also no show for endocrinology appointment on 12/02/2018. I advised him to contact the clinic to reschedule an appointment instead of no show. He is going to contact [facility] in [place] to reschedule an appointment with endocrinology when he has time. He monitors blood sugar. His blood sugar was fine at home. His blood sugar were 90-100. Sometimes it increased to 200 range. He needs new prescription for Lantus insulin. He saw Orthopedic on 12/03/2018 for right knee pain due to osteoarthritis. He had intra articular steroid injection. He does not have sign ificant pain in the right knee. He decided not to take Celebrex because of expense. He is going to continue with ibuprofen. He denies side effects. He saw Urology on 12/20/2018 for BPH with lower urinary tract symptoms and chronic prostatitis. He was advised to continue Flomax and oxybutynin. He needsfollow-up appointment with Urology in 6 months. I reviewed and updated medical record. Medication [...] Dx:E11.9 300 strip 11 ??? blood-glucose meter [facility] Dispense glucose meter, test strips, lancing device, [...] twice daily ) 540 tablet 3 ??? celecoxib (CeleBREX) 100 mg capsule Take 1 capsule (100 mg total) by mouth 2 (two) times a day as needed for moderate pain or score 4-6 of 10. With food 60 capsule 0 ??? CONTOUR TEST STRIPS strips USE [...] 0.3 mL 31 gauge x 15/64 syringe USE TO INJECT ONCE DAILY 0 ??? lancets Check sugar 3 times daily [...] mouth 2 (two) times a day. ??? raNITIdine (ZANTAC) 150 mg tablet Take 1 tablet (150 mg total) by mouth 2 (two) times a day. 180tablet 3 ??? tamsulosin (FLOMAX) 0.4 mg 24 [...] 34.0 To 34.9 Adult 01/03/2016 ??? Callus [place] Foot 04/25/2016 ??? Congestion Nasal 01/03/2016 ??? [...] Four colon polyps. Repeat in 3 years. [facility]. ??? COLONOSCOPY W/ POLYPECTOMY 05/11/[address]/[place]. Dr. Marito davis prep, quality poor. [...] ??? Financial resource strain: None ??? Food insecurity: Worry: None Inability: None ??? Transportation needs: Medical: None Non-medical: None Tobacco Use ??? Smoking status: Never Smoker ??? Smokeless tobacco: Never Used Substance and Sexual Activity ??? Alcohol use: Not Currently Frequency: Never ??? Drug use: No ??? Sexual activity: Defer Lifestyle ??? Physical activity: Days per week: None Minutes per session: None ??? Stress: None Relationships ??? Social connections: Talks on phone: None Gets together: None Attends muslim service: None Active member of club or organization: None Attends meetings of clubs or organizations: None Relationship status: None ??? Intimate partner violence: Fear of current or ex partner: None [...] ??? Accident Brother OBJECTIVE VITAL SIGNS Vitals: 12/31/18 0919 BP: 132/70 Patient Position: Sitting Pulse: 70 Resp: 16 Height: 173 cm Weight: 103 kg PHYSICAL EXAMINATION General: Obese. Patient is sitting. No distress. Able to talk without interruption. Gait: No abnormal gait. Mental: Alert and oriented x 3. Normal mood and affect. ASSESSMENT / PLAN #1 Diabetes Mellitus Type 2 With Diabetic Neuropathy Hyperglycemic (HCC) Diabetes mellitus is not controlled. Recent hemoglobin A1c was 9.2 on 12/29/2018. He was no show forendocrinology appointment on 12/02/2018. He is going to contact endocrinology office to reschedule an appointment. We discussed self-management goal of diabetes mellitus. Advised him to increase Lantusinsulin dose to 20 units subcutaneous daily with dinner, around 8:00 p.m.. He will continue ADA diet, regular exercise [...] current medication and cardiovascular risk factor modification. Advised him to keep an appointment with Cardiology on 02/02/2019. #5 Apnea Sleep Obstructive He does not want further evaluation. #6 Benign Prostatic Hyperplasia With Lower Urinary Tract Symptom He will follow with Urology. He will continue current medications prescribed by Urology. #7 Primary Osteoarthritis Knee Right It is better after intra-articular steroid injection. He needs to lose weight. #8 Renew Medications The following medications were renewed: Lantus insulin #9 Discussed Test Results I reviewed test results from 12/29/2018. All questions were answered. #10 Follow-up Visit Return to the clinic in three months for review medical problems and discuss test results. He needs to do following tests few days before the appointment: ALT, AST, BMP, CBC, CK and hemoglobin A1c. documented in this encounter Plan of Treatment Upcoming Encounters Date Type Specialty Care Team Description 04/23/2022 Office Visit Cardiovascular Disease Blas Peck M.D. [address] [facility] [place] [phone] (Wo rk) Scheduled Referrals Name Type Priority Associated Diagnoses Order S [facility] Internal Outpatient Referral Routine Diabetes [facility] Type Expected: Medicine office 2 With Diabetic 9 visit (clinic) Neuropathy (Approximate) , Hyperglycemic (H CC) Expires: Hypertensive Heart And 12/31 Chronic Kidney Disease Without Heart Failure And With Stage 2 (Mild) Chronic Kidney D isease Coronary Artery Disease Without Angina P ectoris Coronary Arterial Bypass Graft Status Post Personal Hi story Apnea Sleep Obst ructive Benign Prostatic Hyperplasia With Lower Urinary Tract Sy mptom Primary Osteoarthritis Knee Right High Risk Medication documented as of this encounter Results (ABNORMAL) Hemoglobin A1c (04/12/2019 9:54 AM FINE GRADE BULLDOZER OPERATOR) athologist Signature Hemoglobin A1c, 9.2 (H) 4.2 - 5.6 04/12/2019 [place] B % 1:44 PM FINE GRADE BULLDOZER OPERATOR Comment: Hemoglobin A1c values greater than or eq ual to 6.5 percent are diagnostic for diabetes mellitus. ?? Diagnosis should be confirmed by repeat testing. ??In diabet ic patients, HbA1c goals should be discussed with healthcar e provider. Specimen Anatomical Collection Method Collection Time Receive d Time (Source) Location / / Volume Laterality Blood (Blood, 04/12/2019 9:54 AM 04/12/20 19 1:26 Venous) FINE GRADE BULLDOZER OPERATOR PM FINE GRADE BULLDOZER OPERATOR Franco Molina M.D. LAB BLOOD ADD-ON Performing Organization Address City/State/ZIP Code Phon e Number [facility] [address] [place] [address] [place] [address] System in [place] [address] CK (Creatine Kinase) (04/12/2019 9:54 AM FINE GRADE BULLDOZER OPERATOR) P athologist Signature Creatine Kinase 211 39 - 308 04/12/2019 [place] (CK), S U/L 4:05 PM FINE GRADE BULLDOZER OPERATOR Specimen Anatomical Collection Method Collection Time Receive d Time (Source) Location / / Volume Laterality Blood (Blood, 04/12/2019 9:54 AM 04/12/20 19 3:44 Venous) FINE GRADE BULLDOZER OPERATOR PM FINE GRADE BULLDOZER OPERATOR Phunt Phyo M.D. LAB BLOOD ADD-ON Performing Organization Address City/State/ZIP Code Phon e Number [facility]- [address] [place] [address] [facility] [place] [address] [facility] [address] ALT (Alanine Aminotransferase) (04/12/2019 9:54 AM FINE GRADE BULLDOZER OPERATOR) [facility] gist Method Time Signature Alanine 16 7 - 55 04/12/2019 [place] Aminotransferase U/L 1:42 PM FINE GRADE BULLDOZER OPERATOR (ALT), S Specimen Anatomical Collection Method Collection Time Receive d Time (Source) Location / / Volume Laterality Blood (Blood, 04/12/2019 9:54 AM 04/12/20 19 1:26 Venous) FINE GRADE BULLDOZER OPERATOR PM FINE GRADE BULLDOZER OPERATOR Phunt Phyo M.D. LAB BLOOD ADD-ON Performing Organization Address City/State/ZIP Code Phon e Number [facility] [address] [place] [address] [place] [address] System in [place] [address] AST (Aspartate Aminotransferase) (04/12/2019 9:54 AM FINE GRADE BULLDOZER OPERATOR) [facility] gist Method Time Signature Aspartate 22 8 - 48 04/12/2019 [place] Aminotransferase U/L 1:42 PM FINE GRADE BULLDOZER OPERATOR (AST), S Specimen Anatomical Collection Method Collection Time Receive d Time (Source) Location / / Volume Laterality Blood (Blood, 04/12/2019 9:54 AM 04/12/20 19 1:26 Venous) FINE GRADE BULLDOZER OPERATOR PM FINE GRADE BULLDOZER OPERATOR Phunt Phyo M.D. LAB BLOOD ADD-ON Performing Organization Address City/State/ZIP Code Phon e Number [facility]- [address] [place] [address] [place] [address] System in [place] [address] (ABNORMAL) Basic Metabolic Panel (04/12/2019 9:54 AM FINE GRADE BULLDOZER OPERATOR) P athologist Signature Potassium, S 5.0 3.6 - 5.2 04/12/2019 [place] mmol/L 1:42 PM FINE GRADE BULLDOZER OPERATOR Sodium, S 133 (L) 135 - 145 04/12/2019 [place] mmol/L 1:42 PM FINE GRADE BULLDOZER OPERATOR Chloride, S 95 (L) 98 - 107 04/12/2019 [place] mmol/L 1:42 PM FINE GRADE BULLDOZER OPERATOR Bicarbonate, S 24 22 - 29 04/12/2019 [place] mmol/L 1:42 PM FINE GRADE BULLDOZER OPERATOR Anion Gap 14 7 - 15 04/12/2019 [place] 1:42 PM FINE GRADE BULLDOZER OPERATOR BUN (Blood Urea 12 8 - 24 04/12/2019 [place] Nitrogen), S mg/dL 1:42 PM FINE GRADE BULLDOZER OPERATOR Creatinine 1.04 0.74 - 04/12/2019 [place] 1.35 mg/dL 1:42 PM FINE GRADE BULLDOZER OPERATOR eGFR-Non 73 >=60 04/12/2019 [place] Black/ mL/min/BSA 1:42 PM FINE GRADE BULLDOZER OPERATOR Vincentian Comment: ----ADDITIONAL INFORMATION---- Estimated GFR calculated using the 2009 CKD_EPI creatinine equation. eGFR-Black/ 85 >=60 mL/min/BSA 2018 1:42 PM FINE GRADE BULLDOZER OPERATOR [place] Comment: ----ADDITIONAL INFORMATION---- Estimated GFR calculated using the 2009 CKD_EPI creatinine equation. Calcium, Total, S 9.6 8.8 - 10.2 mg/dL 04/12/2019 1:42 PM FINE GRADE BULLDOZER OPERATOR [place] Glucose, S 126 70 - 140 mg/dL 04/12/2019 1:42 PM FINE GRADE BULLDOZER OPERATOR O ALEXYS Specimen Anatomical Collection Method Collection Time Receive d Time (Source) Location / / Volume Laterality Blood (Blood, 04/12/2019 9:54 AM 04/12/20 19 1:26 Venous) FINE GRADE BULLDOZER OPERATOR PM FINE GRADE BULLDOZER OPERATOR Franco Molina M.D. LAB BLOOD ADD-ON Performing Organization Address City/State/ZIP Code Phon e Number [facility]- [address] [place] [address] [facility] [address] [facility] [place] [address] System in [place] [address] CBC without Differential (04/12/2019 9:54 AM FINE GRADE BULLDOZER OPERATOR) P athologist Signature Hemoglobin 15.6 13.2 - 04/12/2019 FB60 16.6 g/dL 10:04 AM FINE GRADE BULLDOZER OPERATOR Hematocrit 46.5 38.3 - 04/12/2019 FB60 48.6 % 10:04 AM FINE GRADE BULLDOZER OPERATOR Erythrocytes 5.30 4.35 - 04/12/2019 FB60 5.65 10:04 AM FINE GRADE BULLDOZER OPERATOR x10(12)/L MCV 87.7 78.2 - 04/12/2019 FB60 97.9 fL 10:04 AM FINE GRADE BULLDOZER OPERATOR RBC Distrib Width 13.5 11.8 - 04/12/2019 FB60 14.5 % 10:04 AM FINE GRADE BULLDOZER OPERATOR Platelet Count 175 135 - 317 04/12/2019 FB60 x10(9)/L 10:04 AM FINE GRADE BULLDOZER OPERATOR Leukocytes 7.3 3.4 - 9.6 04/12/2019 FB60 x10(9)/L 10:04 AM FINE GRADE BULLDOZER OPERATOR Specimen Anatomical Collection Method Collection Time Receive d Time (Source) Location / / Volume Laterality Blood (Blood, 04/12/2019 9:54 AM 04/12/20 19 9:54 Venous) FINE GRADE BULLDOZER OPERATOR AM FINE GRADE BULLDOZER OPERATOR Franco Molina M.D. 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 Hyperglycemic (HCC) - Primary Hypertensive Heart And Chronic Kidney Di sease Without Heart Failure And With Stage 2 (Mild) Chronic Kidney Disease Coronary Artery Disease Without Angina P ectoris Coronary Arterial Bypass Graft Status Po st Personal History Apnea Sleep Obstructive Benign Prostatic Hyperplasia With Lower Urinary Tract Symptom Primary Osteoarthritis Knee Right High Risk Medication documented in this encounter Additional Health Concerns Assessment Noted Time PHQ-9 Depression Total Score: 4 09/23/2018 10:37 AM CD T documented as of this encounter Care Teams Equipment Coordinator Relationship Specialty Start Date End Date Franco Molina M.D. PCP - General 09/25/16 07/27/19 documented as of this encounter
--- OUTSIDE RECORDS SUMMARY | 2022-02-17 12:19 | XMS_ITS | Encounter Summary ---
:1950 Author Organization [facility] Address [address] [place] [address] Care Team Providers Name Role Phone Franco Molina M.D. Primary Care Provider Reason for Visit Reason Comments Pain Outpatient (Routine) - Closed Specialty Diagnoses / Procedures Referred By Contact Refer red To Contact Orthopedic Surgery Diagnoses Pain Knee Right Primary Osteoarthritis Knee Right Franco Molina M.D. [facility] [address] [facility] [address] [place] [address] Referral ID Status Reason Start Date Expiration Date Visits Requ ested Visits Authorized [id number] Closed 12/02/2018 12/02/2019 1 1 Encounter Details Date Type Department Care Team Description 12/03/2018 Comprehensive Visit Department of Juanita Matamoros Kn ee Right (Primary Dx); Orthopedic Surgery Shelia J, Primary O steoarthritis Knee Right in [facility] [address] [place] [phone] Social History Tobacco Use Types Packs/Day Years [...] Sign Reading Time Taken Comments Blood Pressure 104/50 12/03/2018 1:33 PM CDT Pulse - - Temperature - - Respiratory Rate - - Oxygen Saturation - - Inhaled Oxygen Concentration - - Weight 103 kg (227 lb 4.7 oz) 12/03/2018 1:33 PM CDT Height - - Body Mass Index 34.45 11/22/2018 1:42 PM CDT documented in this encounter Progress Notes Shelia Mataomros P.A.-C. - 12/03/2018 1:45 PM CDT CHIEF COMPLAINT: Right knee pain HPI: Mr. Dawkins is a pleasant 68 y.o. year-old male here for right knee pain. I last saw him on 12/17/2016 for left knee pain. He was seen in the emergency department on 11/25/2018 for right knee pain. He started to have pain [place]. He has pain when he was walking as well as when he drives a car and his knee is bent. He has not had any recent falls. He takes ibuprofen twice per day for other concerns. He points to the anterior knee when localizing his pain. He occasionally has pain all the way down his anterior reeves. Dr. Molina gave him a prescription yesterday for Celebrex, he the pharmacy was unable to fill this for him, he is waiting on that prescription now. He is not having any catching or locking nor any give-way episodes. REVIEW OF SYSTEMS: Please see HPI for current concerns, remainder of review of systems reviewed and are negative. Current Outpatient Medications: ??? aspirin 81 mg chewable tablet, Chew 1 tablet daily., Disp: , Rfl: ??? atorvastatin (LIPITOR) 20 mg tablet, Take 1 tablet (20 mg total) by mouth at bedtime., Disp: 90 tablet, Rfl: 3 ??? blood sugar diagnostic (glucose blood) strips, 3 test daily. Whatever is covered by insurance. Dx:E11.9, Disp: 300 strip, Rfl: 11 ??? blood-glucose meter [facility], Dispense glucose meter, test strips, lancing device, and lancets covered by the patient insurance. Test 3 times per day. Dx: E11.40, E11.65, Disp: 1 each, Rfl: 0 ??? busPIRone (BUSPAR) 10 mg tablet, Take 2 tablets (20 mg total) by mouth 3 (three) times a day. (Patient taking differently: Take 20 mg by mouth 3 (three) times a day. Per patient, taking twice daily), Disp: 540 tablet, Rfl: 3 ??? CONTOUR TEST STRIPS strips, USE ONE STRIP TO CHECK GLUCOSE ONCE DAILY BEFORE BREAKFAST, Disp: 100 strip, Rfl: 4 ??? docusate sodium (for_COLACE) 100 mg capsule, Take 100 mg by mouth daily as needed., Disp: , Rfl: ??? FLUoxetine (PROzac) 40 mg capsule, Take 1 capsule (40 mg total) by mouth every morning., Disp: 90 capsule, Rfl: 3 ??? glipiZIDE (GLUCOTROL) 10 mg tablet, Take 1 tablet (10 mg total) by mouth 2 (two) times a day before breakfast and dinner. Stop Amaryl, Disp: 180 tablet, Rfl: 3 ??? ibuprofen (ADVIL,MOTRIN) 200 mg tablet, Take 400 mg by mouth 4 (four) times a day., Disp: , Rfl: ??? insulin syringe-needle U-100 0.3 mL 31 gauge x 15/64 syringe, USE TO INJECT ONCE DAILY, Disp: ,Rfl: 0 ??? lancets, Check sugar 3 times daily before meals, Disp: 300 each, Rfl: 3 ??? LANTUS U-100 INSULIN 100 unit/mL injection, Inject 0.15 mL (15 Units total) under the skin dailywith dinner. Dose increased on 10/25/2018, Disp: 15 mL, Rfl: 3 ??? linaGLIPtin (TRADJENTA) 5 mg tablet, Take 1 tablet (5 mg total) by mouth daily., Disp: 90 tablet, Rfl: 3 ??? lisinopril (PRINIVIL,ZESTRIL) 2.5 mg tablet, TAKE ONE TABLET BY MOUTH IN THE MORNING, Disp: 90 tablet, Rfl: 3 ??? metoprolol tartrate (LOPRESSOR) 25 mg tablet, Take 1 tablet (25 mg total) by mouth 2 (two) timesa day., Disp: 180 tablet, Rfl: 3 ??? nitroglycerin (NITROSTAT) 0.4 mg SL tablet, Place under the tongue., Disp: , Rfl: ??? oxybutynin (DITROPAN-XL) 10 mg 24 hr tablet, Take 1 tablet (10 mg total) by mouth at bedtime., Disp: 90 tablet, Rfl: 3 ??? tamsulosin (FLOMAX) 0.4 mg 24 hr capsule, Take 1 capsule (0.4 mg total) by mouth daily., Disp: 90 capsule, Rfl: 3 ??? celecoxib (CeleBREX) 100 mg capsule, Take 1 capsule (100 mg total) by mouth 2 (two) times a day as needed for moderate pain or score 4-6 of 10. With food (Patient not taking: Reported on 12/03/2018 ), Disp: 60 capsule, Rfl: 0 ??? PEPPERMINT OIL ORAL, Take 1 capsule by mouth as needed. , Disp: , Rfl: ??? polyethylene glycol (for_MIRALAX) 17 gram powder packet, Take 17 g by mouth daily., Disp: , Rfl: ??? PSYLLIUM HUSK (METAMUCIL ORAL), Take 1.7 g by mouth 2 (two) times a day., Disp: , Rfl: ??? raNITIdine (ZANTAC) 150 mg tablet, Take 1 tablet (150 mg total) by mouth 2 (two) times a day. (Patient not taking: Reported on 12/03/2018 ), Disp: 180 tablet, Rfl: 3 PHYSICAL EXAM: GENERAL: This is a well-nourished, well-developed, 68 y.o. year-old male. He is alert and oriented x3. No acute distress. He is cooperative and responds appropriately to all questions. MUSCULOSKELETAL: Tenderness to palpation of the medial and lateral patella. Mild tenderness to palpation of the inferior patella. Mild knee effusion. No tenderness to palpation of the medial or lateraljoint line. No tenderness to palpation of the medial or lateral femoral condyle. Stable ligamentously. Range of motion is 0-120+ degrees. NEURO: Sensation is intact to light touch throughout right lower extremity. Cap refill is less than 2 seconds. IMAGING: Right knee x-ray images performed on 11/25/[address] reviewed, per my read he has mild to moderate degenerative changes, worst in the patellofemoral compartment. His patella is high-riding. No acute osseous pathology. ASSESSMENT AND PLAN: #1 Pain Knee Right #2 Primary Osteoarthritis Knee Right We have discussed that his symptoms are consistent with osteoarthritis especially patellofemoral osteoarthritis. We have discussed options including corticosteroid injection, physical therapy and viscosupplementation injections. He wishes to proceed with a right knee corticosteroid injection today. Please see my procedure note for specifics of the injection. We have discussed continuing with ice, ibuprofen or Celebrex as needed for pain. We will contact him in a few weeks to see how he is feeling after this injection. I will plan no formal follow-up with him at this time, however I would be happy to see him any time in the future. documented in this encounter Procedure Notes Shelia Matamoros P.A.-C. - 12/03/2018 1:45 PM CDTAssociated Order(s): [id number]-[id number]-elbow arthrocentesis: R knee joint Post-Procedure Diagnose(s): Primary Osteoarthritis Knee Right Knee site- R knee joint : injection only Date/Time: 12/03/2018 4:11 PM Performed by: Shelia Matamoros P.A.-C. Authorized by: Shelia Matamoros P.A.-C. PROCEDURE DETAILS Procedure Location knee Knee site: R knee joint Site prep: patient was prepped and draped in usual sterile fashion Patient position: seated Procedural approach: anterolateral Procedure performed: injection only Needle gauge: 21 G Procedural Medication The following medications were administered at the target site(s) Local anesthetic: 8 mL lidocaine (PF) 10 mg/mL (1 %) Corticosteroid: 9 mg betamethasone acetate & sodium phosphate 6 mg/mL CONSENT Consent obtained: written UNIVERSAL PROTOCOL All relevant documentation and testing were reviewed and available. All required blood products, implants, devices and or special equipment were made available as applicable. Pre-procedure verificationwas conducted and the correct site was marked if required. A fire risk assessment was done as applicable. The procedural time-out was conducted prior to performing the procedure and confirmed in a procedural pause. PRE-PROCEDURE DETAILS Procedure purpose: therapeutic Indications: Pain Appropriate hand hygiene, gown, cap, mask, protective eyewear, sterile gloves, skin preparation, sterile drape, and strict aseptic technique were utilized as applicable for the procedure: yes Skin preparation: chlorhexidine All relevant documentation and testing were reviewed and available. All required blood products, implants, devices and/or special equipment were made available as applicable. The pre-procedure verification was conducted, the correct site was marked if required, and the procedural time out was conducted prior to performing the procedure and confirmed in a procedural pause: yes SEDATION / ANESTHESIA Anesthesia method: none POST-PROCEDURE DETAILS Procedure completed successfully: yes Complications: no apparent complications Discharge instructions: ice area as needed for comfort documented in this encounter Plan of Treatment Upcoming Encounters Date Type Specialty Care Team Description 04/23/2022 Office Visit Cardiovascular Disease Blas Peck M.D. [address] [place] [phone] (Wo rk) documented as of this encounter Procedures Procedure Name Priority Date/Time Associated Diagnosis Comme nts IL ARTHCS ASP/INJ Routine 12/03/2018 1:45 PM Primary Osteoarth ritis Results for this MJR JT WO US CDT Knee Right procedure are i n the results section. documented in this encounter Results IL ARTHCS ASP/INJ MJR JT WO US (12/03/2018 1:45 PM CDT) Narrative Shelia Matamoros P.A.-C. - 9 1:45 PM CDT Shelia Matamoros P.A.-C. ? 12/03/2018 ??4:11 PM Knee site- R knee joint : injection only Date/Time: 12/03/2018 4:11 PM Performed by: Shelia Matamoros P.A.- C. Authorized by: Shelia Matamoros P.A. -C. PROCEDURE DETAILS Procedure Location knee Knee site: R knee joint Site prep: patient was prepped and drape d in usual sterile fashion ?? Patient position: seated Procedural approach: anterolateral Procedure performed: injection only Needle gauge: 21 G Procedural Medication The following medications were administe red at the target site(s) Local anesthetic: 8 mL lidocaine (PF) 10 mg/mL (1 %) Corticosteroid: 9 mg betamethasone aceta te & sodium phosphate 6 mg/mL CONSENT Consent obtained: written UNIVERSAL PROTOCOL All relevant documentation and testing w ere reviewed and available. All required blood products, implants, devic es and or special equipment were made available as applicable. Pre-proced ure verification was conducted and the correct site was marked if required. A fire risk assessment was done as applicable. The procedural time-out w as conducted prior to performing the procedure and confirmed in a procedu ral pause. PRE-PROCEDURE DETAILS Procedure purpose: therapeutic Indications: Pain Appropriate hand hygiene, gown, cap, mas k, protective eyewear, sterile gloves, skin preparation, sterile drape, and strict aseptic technique were utilized as applicable for the procedure : yes ?? Skin preparation: chlorhexidine All relevant documentation and testing w ere reviewed and available. All required blood products, implants, devic es and/or special equipment were made available as applicable. The pre-pr ocedure verification was conducted, the correct site was marked i f required, and the procedural time out was conducted prior to performi ng the procedure and confirmed in a procedural pause: yes ?? SEDATION / ANESTHESIA Anesthesia method: none POST-PROCEDURE DETAILS Procedure completed successfully: yes Complications: no apparent complications ?? Discharge instructions: ice area as need ed for comfort Shelia Matamoros P.A.-C. PROCEDURE/MINOR SURGICAL OR DERABLES documented in this encounter Visit Diagnoses Diagnosis Pain Knee Right - Primary Primary Osteoarthritis Knee Right documented in this encounter Administered Medications Inactive Administered Medications - up to 3 most recent administrations Medication Order MAR Action Action Date Dose Rate Site betamethasone acetate & sodium Given 12/03/2018 4:11 PM CDT 9 mg phosphate injection 9 mg (CELESTONE SOLUSPAN) 9 mg, intra-articular, One-Time Injection, Starting on Thu12/03/18 at 1611, For 1 dose lidocaine (PF) 10 mg/mL (1 %) injection 8 mL Given 12/03/2018 4: 11 PM CDT 8 mL (XYLOCAINE) 8 mL, infiltration, One-Time Injection, Starting on Thu12/03/18 at 1611, For 1 dose documented in this encounter Additional Health Concerns Assessment Noted Time PHQ-9 Depression Total Score: 4 09/23/2018 10:37 AM CD T documented as of this encounter Care Teams Automobile Accessories Installer Relationship Specialty Start Date End Date Franco Molina M.D. PCP - General 09/25/16 07/27/19 documented as of this encounter
--- OUTSIDE RECORDS SUMMARY | 2022-02-17 12:19 | XMS_ITS | Encounter Summary ---
:1950 Author Organization [facility] Address [address] [place] [address] Care Team Providers Name Role Phone Franco Molina M.D. Primary Care Provider Encounter Details Date Type Department Care Team Description 12/16/2018 Clinical Communication Department of Trudi Trevino, [place] [address] [place] [phone] Social History Tobacco Use Types Packs/Day Years [...] encounter Miscellaneous Notes Telephone Encounter - Trudi Trevino, L.P.N. - 12/16/2018 3:47 PM CDT S: Cortisone injection follow up B: Seen on 12/03/18 by PAC. Damion Given right knee cortisone injection. Patient states pain is now 2-3/10 with no adverse reactions to injection. Pain is persistent in medial side of knee with driving. A: Courtesy call- improvement in pain. R: FYI message forwarded to provider. documented in this encounter Plan of Treatment Upcoming Encounters Date Type Specialty Care Team Description 04/23/2022 Office Visit Cardiovascular Disease Blas Peck M.D. [address] [place] [phone] (Wo rk) documented as of this encounter Visit Diagnoses Not on filedocumented in this encounter Additional Health Concerns Assessment Noted Time PHQ-9 Depression Total Score: 4 09/23/2018 10:37 AM CD T documented as of this encounter Care Teams Check Examiner Relationship Specialty Start Date End Date Franco Molina M.D. PCP - General 09/25/16 07/27/19 documented as of this encounter
--- OUTSIDE RECORDS SUMMARY | 2022-02-17 12:19 | XMS_ITS | Encounter Summary ---
:1950 Author Organization [facility] Address [address] [place] [address] Care Team Providers Name Role Phone Franco Molina M.D. Primary Care Provider Reason for Visit Reason Comments Med Refill Encounter Details Date Type Department Care Team Description 03/11/2019 Refill Department of [facility] Torey Molina M.D. Med Refill Internal Medicine in [address] [place] [address], [facility] [address] [place] [address] [place] [address] [place] [phone] Social History Tobacco Use [...] this encounter Miscellaneous Notes Telephone Encounter - Leny Duque M.D. - 03/11/2019 6:19 PM INVOICE CLASSIFICATION CLERK I sent prescription for famotidine ICE CLASSIFICATION CLERK Telephone Encounter - Nanda Martin - 03/11/2019 3:01 PM CST Images from the original note were not included. Nurse Review: Pharmacy Communication Provider: Franco Molina M.D. Medication: Ranitidine Strength: 150 mg Frequency: Take 1 tablet twice daily Pharmacy: [facility] Comment: ICE CLASSIFICATION CLERK documented in this encounter Plan of Treatment Upcoming Encounters Date Type Specialty Care Team Description 04/23/2022 Office Visit Cardiovascular Disease Blas Peck M.D. [address] [place] [phone] (Wo rk) documented as of this encounter Visit Diagnoses Not on filedocumented in this encounter Additional Health Concerns Assessment Noted Time PHQ-9 Depression Total Score: 4 09/23/2018 10:37 AM CD T documented as of this encounter Care Teams Pulverizer Tender Relationship Specialty Start Date End Date Franco Molina M.D. PCP - General 09/25/16 07/27/19 documented as of this encounter
--- OUTSIDE RECORDS SUMMARY | 2022-02-17 12:19 | XMS_ITS | Encounter Summary ---
:1950 Author Organization [facility] Address [address] [place] [address] Care Team Providers Name Role Phone Franco Molina M.D. Primary Care Provider Encounter Details Date Type Department Care Team Description 04/07/2019 Clinical Communication Department of Nabeel Molina M.D. [facility] Internal [address] [place] [address], [facility] in [address] [facility] [id number] [place] [phone] Social History Tobacco Use Types Packs/Day [...] encounter Miscellaneous Notes Telephone Encounter - Brenda Church, L.P.N. - 04/21/2019 1:40 PM INDUSTRIAL MACHINE OPERATOR SUBJECTIVE CHIEF COMPLAINT / REASON FOR CALL No chief complaint on file. PLAN The following information was provided: Patient notified of Dr. Molina's recommendation to see Endocrinology in [place]. Patient agrees. Please send referral to [facility]. Information/Education: patient/caller able to teach back The following references were used: provider Dr. Molina STRIAL MACHINE OPERATOR Telephone Encounter - Brenda Church L.P.N. - 04/21/2019 1:34 PM INDUSTRIAL MACHINE OPERATOR Message left for patient to return my call. STRIAL MACHINE OPERATOR Telephone Encounter - Franco Molina M.D. - 04/21/2019 12:58 PM CST Please call him. He was referred to see endocrinology at [facility] in [place]. I received e-mail from [place] saying that they do not accepting new consult. He needs to go to see endocrinology at [facility]. I will request consultation if he agrees. Good Morning Dr. Molina You sent a referral for pt. Elvis Dawkins for Endocrinology and at this time [place] is not currently accepting new consults. Pt. will need to be referred to another location. Sorry for any inconvenience. Zahira Sue STRIAL MACHINE OPERATOR Telephone Encounter - Rose Colon - 04/07/2019 3:33 PM CST I tried using the labs from Apr 05 and the system will not let me. I have a hold spot in lab schedule for Apr 12 and patient is scheduled to see Dr. Molina Apr 15. Dr. Molina may have to re-enter the labs. STRIAL MACHINE OPERATOR Telephone Encounter - Korin Velazquez CMichelleMAusten - 04/07/2019 3:25 PM INDUSTRIAL MACHINE OPERATOR Please reschedule patient for labs and follow up with pcp if not scheduled. STRIAL MACHINE OPERATOR Telephone Encounter - Franco Molina M.D. - 04/07/2019 2:31 PM CST Please call. He had lab appointment scheduled on 04/05/2019 and he was no show. Order is in EHR. STRIAL MACHINE OPERATOR Telephone Encounter - Estefany Mark L.P.NMichelle - 04/07/2019 2:25 PM CST SUBJECTIVE CHIEF COMPLAINT / REASON FOR CALL No chief complaint on file. Information Discussed Called and spoke with patient. Patient states that he is due for his three month follow-up and labs.Please place orders for labs. PLAN Disposition/Recommendation: notified provider and awaiting recommendations Information/Education: patient/caller able to teach back Caller agreeable to plan of care: yes The following references were used: other Patient STRIAL MACHINE OPERATOR Telephone Encounter - Kendall Shah - 04/07/2019 2:16 PM CST Reason for Communication: patient calling in to schedule lab appt. I was unable to schedule due to no labs in active request. Please place order and call patient back to reschedule Current Can Nursing/Provider leave a detailed message: Did the patient refuse triage through Nurse line? (for symptom based concerns): Action Needed: Please put in lab orders and call patient to schedule Name of Medication (if relevant): STRIAL MACHINE OPERATOR documented in this encounter Plan of Treatment Upcoming Encounters Date Type Specialty Care Team Description 04/23/2022 Office Visit Cardiovascular Disease Blas Peck M.D. 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 PCP - General 09/25/16 07/27/19 documented as of this encounter
--- OUTSIDE RECORDS SUMMARY | 2022-02-17 12:19 | XMS_ITS | Encounter Summary ---
:1950 Author Organization [facility] Address [address] [place] [address] Care Team Providers Name Role Phone Franco Molina M.D. 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 Dx:E11.9 blood-glucose meter [facility] [place] Dispense glucose 1 each 0 10/25 meter, test strips, lancing device, and lancets covered by the patient insurance. Test 3 times per day. Dx: E11.40, E11.65 CONTOUR TEST STRIPS USE ONE STRIP TO 100 strip 4 11/13/2017 strips CHECK GLUCOSE ONCE DAILY BEFORE BREAKFAST ibuprofen (ADVIL,MOTRIN) Take 400 mg by mouth 0 0 11/25/2018 200 mg tablet as needed. lancets Check sugar 3 times 300 each 3 10/25/2018 daily before meals polyethylene glycol Take 17 g by mouth 0 08/29/19 17 (for_MIRALAX) 17 gram daily. powder packet PSYLLIUM HUSK (METAMUCIL Take 1.7 g by mouth 0 ORAL) at bedtime. celecoxib (CeleBREX) 100 Take 1 capsule (100 60 capsule 0 01/01/2019 mg capsule mg total) by mouth 2 (two) times a day as needed for moderate pain or score 4-6 of 10. With food aspirin 81 mg chewable Chew 1 tablet daily. 0 07/09/2020 tablet atorvastatin (LIPITOR) Take 1 tablet (20 mg 90 tablet 3 10/201808/24/2019 20 mg tablet total) by mouth at bedtime. busPIRone (BUSPAR) 10 mg Take 2 tablets (20 540 tablet 3 11/201807/04/2019 tablet mg total) by mouth 3 (three) times a day. docusate sodium Take 100 mg by mouth 0 06/13/2019 (for_COLACE) 100 mg daily as needed. capsule FLUoxetine (PROzac) 40 Take 1 capsule (40 90 capsule 3 08/2408/24/2019 mg capsule mg total) by mouth every morning. glipiZIDE (GLUCOTROL) 10 Take 1 tablet (10 mg 180 tablet 3 0 09/24/2018 08/29/2019 mg tablet total) by mouth 2 (two) times a day before breakfast and dinner. Stop Amaryl insulin syringe-needle USE TO INJECT ONCE 0 10/1802/11/2019 U-100 0.3 mL 31 gauge x DAILY syringe LANTUS U-100 INSULIN 100 Inject 0.15 mL (15 15 mL 3 12/31/2018 unit/mL injection Units total) under the skin daily with dinner. Dose increased on 10/25/2018 linaGLIPtin (TRADJENTA) Take 1 tablet (5 mg 90 tablet 3 12/201808/29/2019 5 mg tablet total) by mouth daily. lisinopril TAKE ONE TABLET BY 90 tablet 3 05/21/20182019 (PRINIVIL,ZESTRIL) 2.5 MOUTH IN THE MORNING mg tablet metoprolol tartrate Take 1 tablet (25 mg 180 tablet 3 201806/21/2019 (LOPRESSOR) 25 mg tablet total) by mouth 2 (two) times a day. nitroglycerin Place under the 0 09/13/20162019 (NITROSTAT) 0.4 mg SL tongue. tablet oxybutynin (DITROPAN-XL) Take 1 tablet (10 mg 90 tablet 3 0 10/29/2018 11/16/2019 10 mg 24 hr tablet total) by mouth at bedtime. PEPPERMINT OIL ORAL Take 1 capsule by 0 07/09/2020 mouth as needed. raNITIdine (ZANTAC) 150 Take 1 tablet (150 180 tablet 3 08/1203/11/2019 mg tablet mg total) by mouth 2 (two) times a day. tamsulosin (FLOMAX) 0.4 Take 1 capsule (0.4 90 capsule 3 12/201803/14/2020 mg 24 hr capsule mg total) by mouth daily. documented as of this encounter Plan of Treatment Upcoming Encounters Date Type Specialty Care Team Description 04/23/2022 Office Visit Cardiovascular Disease Blas Peck M.D. [address] [place] [phone] (Wo rk) documented as of this encounter Procedures Procedure Name Priority Date/Time Associated Diagnosis Comme nts CBC WITHOUT Routine 12/29/2018 9:03 Hypertensive Heart Result s for this DIFFERENTIAL, B AM CDT And Chronic Kidney proced ure are in Disease Without the results Heart Failure And section. With Stage 2 (Mild) Chronic Kidney Disease High Risk Medication ALANINE AMINOTRANSFERASE Routine 12/29/2018 9:03 Diabetes Nona itus Results for this (ALT), S/P AM CDT Type 2 With Diabetic procedu re are in Neuropathy the results Hyperglycemic (H CC) section. Coronary Artery Disease (Unspecified) Hyperlipidemia High Risk Medication ASPARTATE Routine 12/29/2018 9:03 Diabetes Mellitus Results for this AMINOTRANSFERASE (AST), AM CDT Type 2 With Diabe tic procedure are in S/P Neuropathy the results Hyperglycemic (H CC) section. Coronary Artery Disease (Unspecified) Hyperlipidemia High Risk Medication HEMOGLOBIN A1C, B Routine 12/29/2018 9:03 Diabetes Mellitus Re sults for this AM CDT Type 2 With Diabetic procedu re are in Neuropathy the results Hyperglycemic (H CC) section. Coronary Artery Disease (Unspecified) CREATINE KINASE (CK), S Routine 12/29/2018 9:03 Diabetes Melli tus Results for this AM CDT Type 2 With Diabetic procedu re are in Neuropathy the results Hyperglycemic (H CC) section. Coronary Artery Disease (Unspecified) Hyperlipidemia High Risk Medication BASIC METABOLIC PANEL, Routine 12/29/2018 9:03 Diabetes Mellit us Results for this S/P AM CDT Type 2 With Diabetic procedu re are in Neuropathy the results Hyperglycemic (H CC) section. 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 ?? Diagnosis should be confirmed by repeat testing. ??In diabet ic patients, HbA1c goals should be discussed with healthcar e provider. Specimen Anatomical Collection Method Collection Time Receive d Time (Source) Location / / Volume Laterality Blood (Blood, 12/29/2018 9:03 AM 12/30/19 19 Venous) CDT 10:22 AM CDT Franco Molina M.D. LAB BLOOD ADD-ON Performing Organization Address City/State/ZIP Code Phon e Number [facility] [address] [place] [address] LAB CK (Creatine Kinase) (12/29/2018 9:03 AM CDT) athologist Signature Creatine Kinase 228 39 - 308 12/29/2018 (CK), S U/L 4:57 PM CDT Specimen Anatomical Collection Method Collection Time Receive d Time (Source) Location / / Volume Laterality Blood (Blood, 12/29/2018 9:03 AM 12/30/19 4:27 Venous) CDT PM CDT Franco Molina M.D. LAB BLOOD ADD-ON Performing Organization Address City/State/ZIP Code Phon e Number [facility] [address] [place] [address] [place] LAB ALT (Alanine Aminotransferase) (12/29/2018 9:03 AM CDT) [facility] Method Time Signature Alanine 13 7 - 55 12/29/2018 Aminotransferase U/L 10:41 AM CDT (ALT), S Specimen Anatomical Collection Method Collection Time Receive d Time (Source) Location / / Volume Laterality Blood (Blood, 12/29/2018 9:03 AM 12/30/19 Venous) CDT 10:22 AM CDT Franco Molina M.D. LAB BLOOD ADD-ON Performing Organization Address City/State/ZIP Code Phon e Number [facility] [address] [place] [address] LAB AST (Aspartate Aminotransferase) (12/29/2018 9:03 AM CDT) [facility] Method Time Signature Aspartate 21 8 - 48 12/29/2018 Aminotransferase U/L 10:41 AM CDT (AST), S Specimen Anatomical Collection Method Collection Time Receive d Time (Source) Location / / Volume Laterality Blood (Blood, 12/29/2018 9:03 AM 12/30/19 Venous) CDT 10:22 AM CDT Franco Molina M.D. LAB BLOOD ADD-ON Performing Organization Address City/State/ZIP Code Phon e Number [facility] [address] [place] [address] LAB Basic Metabolic Panel (12/29/2018 9:03 AM CDT) P athologist Signature Potassium, S 4.7 3.6 - 5.2 12/29/2018 mmol/L 10:41 AM CDT Sodium, S 136 135 - 145 12/29/2018 mmol/L 10:41 AM CDT Chloride, S 102 98 - 107 12/29/2018 mmol/L 10:41 AM CDT Bicarbonate, S 25 22 - 29 12/29/2018 mmol/L 10:41 AM CDT Anion Gap 9 7 - 15 12/29/2018 10:41 AM CDT BUN (Blood Urea 12 8 - 24 12/29/2018 Nitrogen), S mg/dL 10:41 AM CDT Creatinine 1.05 0.74 - 12/29/2018 1.35 mg/dL 10:41 AM CDT eGFR-Non 73 >=60 12/29/2018 Black/ mL/min/BSA 10:41 AM CDT [place] Comment: ----ADDITIONAL INFORMATION---- Estimated GFR calculated using the 2009 CKD_EPI creatinine equation. eGFR-Black/ 84 >=60 mL/min/BSA 2018 10:41 AM CDT Comment: ----ADDITIONAL INFORMATION---- Estimated GFR calculated using the 2009 CKD_EPI creatinine equation. Calcium, Total, S 9.6 8.8 - 10.2 mg/dL 12/29/2018 10:4 1 AM CDT Glucose, S 122 70 - 140 mg/dL 12/29/2018 10:41 AM CDT Specimen Anatomical Collection Method Collection Time Receive d Time (Source) Location / / Volume Laterality Blood (Blood, 12/29/2018 9:03 AM 12/30/19 19 Venous) CDT 10:22 AM CDT Franco Molina M.D. LAB BLOOD ADD-ON Performing Organization Address City/State/ZIP Code Phon e Number [facility] [address] [place] [address] LAB CBC without Differential (12/29/2018 9:03 AM CDT) P athologist Signature Hemoglobin 15.0 13.2 - 12/29/2018 16.6 g/dL 9:09 AM CDT Hematocrit 44.1 38.3 - 12/29/2018 48.6 % 9:09 AM CDT Erythrocytes 4.99 4.35 - 12/29/2018 5.65 9:09 AM CDT x10(12)/L MCV 88.4 78.2 - 12/29/2018 97.9 fL 9:09 AM CDT RBC Distrib Width 13.9 11.8 - 12/29/2018 14.5 % 9:09 AM CDT Platelet Count 161 135 - 317 12/29/2018 x10(9)/L 9:09 AM CDT Leukocytes 6.6 3.4 - 9.6 12/29/2018 x10(9)/L 9:09 AM CDT Specimen Anatomical Collection Method Collection Time Receive d Time (Source) Location / / Volume Laterality Blood (Blood, 12/29/2018 9:03 AM 12/30/19 19 9:03 Venous) CDT AM CDT Franco Molina M.D. LAB BLOOD ADD-ON Performing Organization Address City/State/ZIP Code Phon e Number [facility] [place] [address] LAB documented in this encounter Visit Diagnoses Diagnosis Hypertensive Heart And Chronic Kidney Di sease Without Heart Failure And With Stage 2 (Mild) Chronic Kidney Disease High Risk Medication 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 Hyperglycemic (HCC) Coronary Artery Disease (Unspecified) Hyperlipidemia documented in this encounter Additional Health Concerns Assessment Noted Time PHQ-9 Depression Total Score: 4 09/23/2018 10:37 AM CD T documented as of this encounter Care Teams Quality Process Auditor Relationship Specialty Start Date End Date Franco Molina M.D. PCP - General 09/25/16 07/27/19 documented as of this encounter
--- OUTSIDE RECORDS SUMMARY | 2022-02-17 12:19 | XMS_ITS | Encounter Summary ---
:1950 Author Organization [facility] Address [address] [place] [address] Care Team Providers Name Role Phone Franco Molina M.D. Primary Care Provider Reason for Referral Outpatient (Routine) - Closed Specialty Diagnoses / Procedures Referred By Contact Refer red To Contact Diagnoses Pain Knee Bilateral Shelia Matamoros [facility] [place] [facility] Procedures kiu-msje-bsbnfvhr-elbow arthrocentesis: L knee joint P.A.-C. [address] [phone] Referral ID Status Reason Start Date Expiration Date Visits Requ ested Visits Authorized [id number] Closed 03/28/2019 03/27/2020 1 1 ATION AGENT Outpatient (Routine) - Closed Specialty Diagnoses / Procedures Referred By Contact Refer red To Contact Diagnoses Pain Knee Bilateral Shelia Matamoros [facility] [place] [facility] Procedures ezp-fkhx-fluallbr-elbow arthrocentesis: R knee joint P.A.-C. [address] [place] [phone] Referral ID Status Reason Start Date Expiration Date Visits Requ ested Visits Authorized [id number] Closed 03/28/2019 03/27/2020 1 1 ATION AGENT Reason for Visit Reason Comments Knee Pain bilateral - right is worse t hen left but left is getting bad - pain on right is more medial - patie nt states no weakness but hears popping noises Pain Pain Appointment Request (Routine) - Closed Specialty Diagnoses / Procedures Referred By Contact Refer red To Contact Orthopedic Surgery Referral ID Status Reason Start Date Expiration Date Visits Requ ested Visits Authorized [id number] Closed 03/11/2019 03/10/2020 1 Encounter Details Date Type Department Care Team Description 03/28/2019 Office Visit Department of Shelia Matamoros Pain Knee Right (Primary Dx); Orthopedic Surgery in [place] Pain Knee Bilateral [place], [place] [address] [place] [facility] [place] [phone] Social History Tobacco Use Types Packs/Day [...] Taken Comments Blood Pressure - - Pulse - - Temperature - - Respiratory Rate 20 03/28/2019 12:32 PM OPERATION AGENT Oxygen Saturation - - Inhaled Oxygen Concentration - - Weight 105 kg (230 lb 13.2 oz) 03/28/2019 12:32 PM OPERATION AGENT Height 172.7 cm (5' 8) 03/28/2019 12:32 PM OPERATION AGENT Body Mass Index 35.1 03/28/2019 12:32 PM OPERATION AGENT documented in this encounter Progress Notes Shelia Matamoros P.A.-C. - 03/28/2019 1:00 PM CST CHIEF COMPLAINT: Right knee pain HPI: Mr. Dawkins is a pleasant 69 y.o. year-old male here for a follow up of right knee pain. I last saw him on 12/03/2018, at that visit I performed a right knee cortisone injection. He reports that that injection was helpful until the the weather turned cold her this winter. He has been having worsening left knee pain. This has bothered him mildly for along time but the past month it has been worsening. He always has pain in both knees when he stands up. He describes this as an achy type pain, this bothers him especially when he is walking up and down stairs. He points to the medial patellofemoral region when localizing his pain bilaterally. REVIEW OF SYSTEMS: Please see HPI for [...] 300 strip, Rfl: 11 ??? blood-glucose meter [facility] [place], Dispense glucose meter, test strips, lancing device, [...] LANTUS U-100 INSULIN 100 unit/mL injection, Inject 0.2 mL (20 Units total) under the skin daily with dinner. Dose increased on 12/31/2018, Disp: 20 mL, Rfl: 3 ??? levoFLOXacin (LEVAQUIN) 500 mg tablet, Take 1 tablet (500 mg total) by mouth daily., Disp: 42 tablet, Rfl: 0 ??? linaGLIPtin (TRADJENTA) 5 mg tablet, Take [...] under the tongue., Disp: , Rfl: ??? nizatidine (AXID) 150 mg capsule, Take 1 capsule (150 mg total) by mouth 2 (two) times a day., Disp: 180 capsule, Rfl: 3 ??? oxybutynin (DITROPAN-XL) 10 mg 24 hr tablet, Take 1 tablet (10 mg total) by mouth at bedtime., Disp: 90 tablet, Rfl: 3 ??? PEPPERMINT OIL ORAL, Take 1 capsule by mouth as needed. , Disp: , Rfl: ??? polyethylene glycol (for_MIRALAX) 17 gram powder packet, Take 17 g by mouth daily., Disp: , Rfl: ??? PSYLLIUM HUSK (METAMUCIL ORAL), Take 1.7 g by mouth 2 (two) times a day., Disp: , Rfl: ??? tamsulosin (FLOMAX) 0.4 mg 24 hr capsule, Take 1 capsule (0.4 mg total) by mouth daily., Disp: 90 capsule, Rfl: 3 PHYSICAL EXAM: GENERAL: This is a well-nourished, well-developed, 69 y.o. male. He is alert and oriented x3. No acute distress. He is cooperative and responds appropriately to all questions. MUSCULOSKELETAL: Tenderness to palpation of the medial patellofemoral joint bilaterally. No tenderness to palpation of the medial or lateral joint line bilaterally. Active range of motion is 0-120+ degrees bilaterally. Zach's, valgus and varus stress test are negative bilaterally. NEURO: Sensation is intact to light touch throughout bilateral lower extremities. Cap refill is lessthan 2 seconds. IMAGING: Bilateral knee x-rays performed today show moderate degenerative changes, worst in the medial compartment and patellofemoral compartment. ASSESSMENT AND PLAN: #1 Pain Knee Bilateral Symptoms are most consistent with bilateral knee osteoarthritis. We have discussed options includingcorticosteroid injections, physical therapy and viscosupplementation injections. He would like to start with cortisone injections as it was very helpful on the right knee last time. Please see my procedure note for specifics of the injections. I will plan no formal follow-up with him at this time, however I would be happy to see him any time in the future. ATION AGENT documented in this encounter Procedure Notes Shelia Matamoros P.A.-C. - 03/28/2019 1:00 PM CSTAssociated Order(s): nvv-nsso-ywezormf-elbow arthrocentesis: R knee joint; efk-hnqj-yxkvjoip-elbow ar throcentesis: L knee joint Post-Procedure Diagnose(s): Pain Knee Bilateral Knee site- R knee joint : injection only Date/Time: 03/28/2019 1:26 PM Performed by: Shelia Matamoros P.A.-C. Authorized [...] for the procedure: yes Skin preparation: chlorhexidine SEDATION / ANESTHESIA Anesthesia method: topical application Topical application type: aerosol cold spray POST-PROCEDURE DETAILS Procedure completed successfully: yes Complications: no apparent complications Discharge instructions: ice area as needed for comfort Knee site- L knee joint : injection only Date/Time: 03/28/2019 1:26 PM Performed by: Shelia Matamoros P.A.-C. Authorized by: Shelia Matamoros P.A.-C. PROCEDURE DETAILS Procedure Location knee Knee site: L knee joint Site prep: patient was prepped and draped in usual sterile fashion Patient position: seated Procedural approach: anterolateral Procedure performed: injection only Needle gauge: 21 G Procedural Medication The following medications were administered at the target site(s) Local anesthetic: 8 mL lidocaine 10 mg/mL (1 %) Corticosteroid: 9 mg [...] for the procedure: yes Skin preparation: chlorhexidine SEDATION / ANESTHESIA Anesthesia method: topical application Topical application type: aerosol cold spray POST-PROCEDURE DETAILS Procedure completed successfully: yes Complications: no apparent complications Discharge instructions: ice area as needed for comfort ATION AGENT documented in this encounter Plan of Treatment Upcoming Encounters Date Type Specialty Care Team Description 04/23/2022 Office Visit Cardiovascular Disease Blas Peck M.D. [address] [place], [place] [phone] (Wo rk) documented as of this encounter Procedures Procedure Name Priority Date/Time Associated Diagnosis Comme nts TN ARTHCS ASP/INJ Routine 03/28/2019 1:00 PM Pain Knee Bilater al Results for this MJR JT WO US OPERATION AGENT procedure are i n the results section. TN ARTHCS ASP/INJ Routine 03/28/2019 1:00 PM Pain Knee Bilater al Results for this MJR JT WO US OPERATION AGENT procedure are i n the results section. documented in this encounter Results DX Knee Bilateral 4+ Views (03/28/2019 1:25 PM OPERATION AGENT) Anatomical Region Laterality Modality Lower Extremity, Knee, Musculoskeletal RST LOS, Bilateral Computed Radiography Musculoskeletal ARZ LOS, Muskuloskeletal FLA LOS Specimen (Source) Anatomical Collection Method Collection Time Re ceived Time Location / / Volume Laterality 03/28/2019 1:36 PM OPERATION AGENT Impressions 03/28/2019 1:36 PM OPERATION AGENT Degenerative changes both knees. No appreciable acute osseous injury of either knee. Slight bilateral genu varus. Narrative 03/28/2019 1:36 PM OPERATION AGENT EXAM: DX KNEE BILATERAL 4+ VIEWS COMPARISON: November 25, 2018. FINDINGS: Moderately prominent scattered degenerative changes of the bilateral knees with bilateral medial compartment joint space narrowing. Medium sized bilateral knee joint effusi on/synovitis. Procedure Note Andrew Wilson M.D. - 03/28/2019Forma tting of this note might be different from the original. EXAM: DX KNEE BILATERAL 4+ VIEWS COMPARISON: November 25, 2018. FINDINGS: Moderately prominent scattered degenerative changes of the bilateral knees with bilateral medial compartment joint space narrowing. Medium sized bilateral knee joint effusi on/synovitis. IMPRESSION: Degenerative changes both knees. No appr eciable acute osseous injury of either knee. Slight bilateral genu varus. Shelia Matamoros P.A.-C. IMG DIAGNOSTIC IMAGING PROC EDURES TN ARTHCS ASP/INJ MJR JT WO US (03/28/2019 1:00 PM OPERATION AGENT) Narrative [facility] - 03/28/2019 1:00 PM OPERATION AGENT Shelia Matamoros P.A.-C. ? 03/28/2019 ??2:08 PM Knee site- L knee joint : injection only Date/Time: 03/28/2019 1:26 PM Performed by: Shelia Matamoros P.A.- C. Authorized by: Shelia Matamoros P.A. -C. PROCEDURE DETAILS Procedure Location knee Knee site: L knee joint Site prep: patient was prepped and drape d in usual sterile fashion ?? Patient position: seated Procedural approach: anterolateral Procedure performed: injection only Needle gauge: 21 G Procedural Medication The following medications were administe red at the target site(s) Local anesthetic: 8 mL lidocaine 10 mg/m L (1 %) Corticosteroid: 9 mg betamethasone aceta [...] procedure : yes ?? Skin preparation: chlorhexidine SEDATION / ANESTHESIA Anesthesia method: topical application Topical application type: aerosol cold s pray POST-PROCEDURE DETAILS Procedure completed successfully: yes Complications: no apparent complications ?? Discharge instructions: ice area as need ed for comfort Shelia HerronC. PROCEDURE/MINOR SURGICAL OR DERABLES Performing Organization Address City/State/ZIP Code Phon e Number MM[facility] MM[facility] NA TN ARTHCS ASP/INJ MJR JT WO US (03/28/2019 1:00 PM OPERATION AGENT) Narrative MMODAL - 03/28/2019 1:00 PM OPERATION AGENT Shelia Matamoros P.A.-C. ? 03/28/2019 ??2:08 PM Knee site- R knee joint : injection only Date/Time: 03/28/2019 1:26 PM Performed by: Shelia Matamoros P.A.- C. [...] procedure : yes ?? Skin preparation: chlorhexidine SEDATION / ANESTHESIA Anesthesia method: topical application Topical application type: aerosol cold s pray POST-PROCEDURE DETAILS Procedure completed successfully: yes Complications: no apparent complications ?? Discharge instructions: ice area as need ed for comfort Shelia Matamoros P.A.-C. PROCEDURE/MINOR SURGICAL OR DERABLES Performing Organization Address City/State/ZIP Code Phon e Number MM[facility] MM[facility] NA documented in this encounter Visit Diagnoses Diagnosis Pain Knee Right - Primary Pain Knee Bilateral Pain Knee Bilateral documented in this encounter Administered Medications Inactive Administered Medications - up to 3 most recent administrations Medication Order MAR Action Action Date Dose Rate Site betamethasone acetate & sodium Given 03/28/2019 1:26 PM OPERATION AGENT 9 mg phosphate injection 9 mg (CELESTONE SOLUSPAN) 9 mg, intra-articular, One-Time Injection, Starting on Thu03/28/19 at 1326, For 1 dose betamethasone acetate & sodium phosphate Given 03/28/2019 1:26 P M OPERATION AGENT 9 mg injection 9 mg (CELESTONE SOLUSPAN) 9 mg, intra-articular, One-Time Injection, Starting on Thu03/28/19 at 1326, For 1 dose lidocaine (PF) 10 mg/mL (1 %) injection 8 mL Given 03/28/2019 1: 26 PM OPERATION AGENT 8 mL (XYLOCAINE) 8 mL, infiltration, One-Time Injection, Starting on Thu03/28/19 at 1326, For 1 dose lidocaine 10 mg/mL (1 %) injection 8 mL Given 03/28/2019 1:26 PM OPERATION AGENT 8 mL (XYLOCAINE) 8 mL, infiltration, One-Time Injection, Starting on Thu03/28/19 at 1326, For 1 dose documented in this encounter Additional Health Concerns Assessment Noted Time PHQ-9 Depression Total Score: 4 09/23/2018 10:37 AM CD T documented as of this encounter Care Teams Chief Telephone Operator Relationship Specialty Start Date End Date Franco Molina M.D. PCP - General 09/25/16 07/27/19 documented as of this encounter
--- OUTSIDE RECORDS SUMMARY | 2022-02-17 12:19 | XMS_ITS | Encounter Summary ---
:1950 Author Organization [facility] Address [address] [place] [address] Care Team Providers Name Role Phone Franco Molina M.D. Primary Care Provider Reason for Visit Reason Onset Date Comments Rx Prior Authorization 03/21/2019 DENIAL OF FAMOTID INE 20MG TABLET Encounter Details Date Type Department Care Team Description 03/21/2019 Clinical Communication Department of [facility]ati on ([facility] [place] [facility] FAM[facility] 20MG in [place], [address] TABLET ) [address] [phone] Social History Tobacco Use Types [...] this encounter Miscellaneous Notes Telephone Encounter - Bridget Benavides R.N. - 2019 3:15 PM CST SUBJECTIVE CHIEF COMPLAINT / REASON FOR CALL Rx Prior Authorization (DENIAL OF FAMOTIDINE 20MG TABLET ) Information Discussed Patient was notified of PA denial and new prescription per Dr. Molina. PLAN Disposition/Recommendation: self-care is appropriate at this time, patient encouraged to call back with questions Information/Education: patient/caller able to teach back Caller agreeable to plan of care: yes The following references were used: provider Dr. Molina L MAKER PLASTER Telephone Encounter - Mary Dennis L.P.N. - 03/21/2019 5:47 PM CST Attempted to reach, left a message to return call. L MAKER PLASTER Telephone Encounter - Franco Molina M.D. - 03/21/2019 2:15 PM CST Please call patient. I sent a prescription for cimetidine 400 mg by mouth twice a day. May be his insurance doesn't want to cover because they are [id number] medications. In that case he needs tobuy out of pocket. L MAKER PLASTER Telephone Encounter - Leny Duque M.D. - 03/21/2019 1:57 PM MODEL MAKER PLASTER For you L MAKER PLASTER Telephone Encounter - Damon Chao - 03/21/2019 9:38 AM CST The patient???s health insurer has denied prior authorization for FAMOTIDINE 20MG TABLET . PLEASE SEE DENIAL LETTER FOR MORE INFORMATION. Your options: [...] Outpatient Pharmaceutical PA department at email address [facility]. Thank you L MAKER PLASTER documented in this encounter Plan of Treatment Upcoming Encounters Date Type Specialty Care Team Description 04/23/2022 Office Visit Cardiovascular Disease Blas Peck M.D. [address] [place] [phone] (Wo rk) documented as of this encounter Visit Diagnoses Not on filedocumented in this encounter Additional Health Concerns Assessment Noted Time PHQ-9 Depression Total Score: 4 09/23/2018 10:37 AM CD T documented as of this encounter Care Teams Booking Manager Relationship Specialty Start Date End Date Franco Molina M.D. PCP - General 09/25/16 07/27/19 documented as of this encounter
--- OUTSIDE RECORDS SUMMARY | 2022-02-17 12:19 | XMS_ITS | Encounter Summary ---
:1950 Author Organization [facility] Address [address] [place] [address] Care Team Providers Name Role Phone Franco Molina M.D. Primary Care Provider Reason for Visit Reason Comments Care Coordination November Encounter Details Date Type Department Care Team Description 01/18/2019 Patient Outreach Department of [facility] Internal on, Jodi Bah, (November) Medicine in [place], [place] [address] [place] [address] [address] [place] [phone] Social History Tobacco Use Types Packs/Day Years [...] Visit Cardiovascular Disease Blas Peck M.D. [address] [place], [place] [phone] (Wo rk) documented as of this encounter Visit Diagnoses Diagnosis Coronary Artery Disease Without Angina P ectoris documented in this encounter Additional Health Concerns Assessment Noted Time PHQ-9 Depression Total Score: 4 09/23/2018 10:37 AM CD T documented as of this encounter Care Teams Architectural Associate Relationship Specialty Start Date End Date Franco Molina M.D. PCP - General 09/25/16 07/27/19 documented as of this encounter
--- OUTSIDE RECORDS SUMMARY | 2022-02-17 12:19 | XMS_ITS | Encounter Summary ---
:1950 Author Organization [facility] Address [address] [place] [address] Care Team Providers Name Role Phone Franco Molina M.D. Primary Care Provider Encounter Details Date Type Department Care Team Description 03/21/2019 Orders Only [facility] Pharmacy - Franco Martinez M.D. [address], [facility] [address] [facility] [address] [place] [address] [place] [address] [phone] Social History Tobacco Use Types Packs/Day Years [...] Visit Cardiovascular Disease Blas Peck M.D. [address] [place] [phone] (Wo rk) documented as of this encounter Visit Diagnoses Not on filedocumented in this encounter Additional Health Concerns Assessment Noted Time PHQ-9 Depression Total Score: 4 09/23/2018 10:37 AM CD T documented as of this encounter Care Teams Payroll Associate Relationship Specialty Start Date End Date Franco Molina M.D. PCP - General 09/25/16 07/27/19 documented as of this encounter
--- OUTSIDE RECORDS SUMMARY | 2022-02-17 12:19 | XMS_ITS | Encounter Summary ---
:1950 Author Organization [facility] Address [address] [place] [address] Care Team Providers Name Role Phone Franco Molina M.D. Primary Care Provider Reason for Visit Reason Comments Med Refill Encounter Details Date Type Department Care Team Description 02/11/2019 Refill Department of [facility] Torey Molina M.D. Med Refill Internal Medicine in [address] [place] [address] [address] [facility] [place] [phone] Social History Tobacco Use [...] Cardiovascular Disease Blas Peck M.D. [address] [place], [place] [phone] (Wo rk) documented as of this encounter Visit Diagnoses Not on filedocumented in this encounter Additional Health Concerns Assessment Noted Time PHQ-9 Depression Total Score: 4 09/23/2018 10:37 AM CD T documented as of this encounter Care Teams Review Rn Relationship Specialty Start Date End Date Franco Molina M.D. PCP - General 09/25/16 07/27/19 documented as of this encounter
--- OUTSIDE RECORDS SUMMARY | 2022-02-17 12:19 | XMS_ITS | Encounter Summary ---
:1950 Author Organization [facility] Address [address] [place] [address] Care Team Providers Name Role Phone Franco Molina M.D. Primary Care Provider Encounter Details Date Type Department Care Team Description 03/28/2019 Hospital Encounter Department of Juanita Matamoros Bilateral Radiology in [place], [place] P.A.-C. [address] [place] [phone] Social History Tobacco Use Types Packs/Day Years [...] Visit Cardiovascular Disease Blas Peck M.D. [address] [place] [phone] (Wo rk) documented as of this encounter Procedures Procedure Name Priority Date/Time Associated Comments Diagnosis DX KNEE BILATERAL RAD - Routine 03/28/2019 1:25 Pain Knee Result s for this 4+ VIEWS (most inpatients PM INSTALLER HELPER Bilateral procedure a re in and all the results outpatients) section. documented in this encounter Results DX Knee Bilateral 4+ Views (03/28/2019 1:25 PM INSTALLER HELPER) Anatomical Region Laterality Modality Lower Extremity, Knee, Musculoskeletal RST LOS, Bilateral Computed Radiography Musculoskeletal ARZ LOS, Muskuloskeletal FLA LOS Specimen (Source) Anatomical Collection Method Collection Time Re ceived Time Location / / Volume Laterality 03/28/2019 1:36 PM INSTALLER HELPER Impressions 03/28/2019 1:36 PM INSTALLER HELPER Degenerative changes both knees. No appreciable acute osseous injury of either knee. Slight bilateral genu varus. Narrative 03/28/2019 1:36 PM INSTALLER HELPER EXAM: DX KNEE BILATERAL 4+ VIEWS COMPARISON: [...] Matamoros P.A.-C. IMG DIAGNOSTIC IMAGING PROC EDURES documented in this encounter Visit Diagnoses Diagnosis Pain Knee Bilateral documented in this encounter Additional Health Concerns Assessment Noted Time PHQ-9 Depression Total Score: 4 09/23/2018 10:37 AM CD T documented as of this encounter Care Teams Sewer Hand Relationship Specialty Start Date End Date Franco Molina M.D. PCP - General 09/25/16 07/27/19 documented as of this encounter
--- OUTSIDE RECORDS SUMMARY | 2022-02-17 12:19 | XMS_ITS | Encounter Summary ---
:1950 Author Organization [facility] Address [address] [place] [address] Care Team Providers Name Role Phone Franco Molina M.D. Primary Care Provider Encounter Details Date Type Department Care Team Description 12/07/2018 Orders Only Pharmacy Prior Auth Kori Carbajal [phone] Social History Tobacco Use Types Packs/Day Years [...] Visit Cardiovascular Disease Blas Peck M.D. [address] [place] [phone] (Wo rk) documented as of this encounter Visit Diagnoses Not on filedocumented in this encounter Additional Health Concerns Assessment Noted Time PHQ-9 Depression Total Score: 4 09/23/2018 10:37 AM CD T documented as of this encounter Care Teams Sawmill Production Worker Relationship Specialty Start Date End Date Franco Molina M.D. PCP - General 09/25/16 07/27/19 documented as of this encounter
--- OUTSIDE RECORDS SUMMARY | 2022-02-17 12:19 | XMS_ITS | Encounter Summary ---
:1950 Author Organization [facility] Address [address] [place] [address] Care Team Providers Name Role Phone Franco Molina M.D. Primary Care Provider Encounter Details Date Type Department Care Team Description 12/30/2018 Hospital Encounter Department of Radiology Corey Peck jv Abdominal Pain in [facility] pratik Manley M.D. 300 [facility] [address] [place] [phone] Social History Tobacco Use Types Packs/Day [...] Visit Cardiovascular Disease Blas Peck M.D. [address] [place] [phone] (Wo rk) documented as of this encounter Procedures Procedure Name Priority Date/Time Associated Comments Diagnosis US AORTA RAD - Routine 12/30/2018 11:33 Abdominal Pain Results for this (most inpatients AM CDT procedure a re in and all the results outpatients) section. documented in this encounter Results US Aorta (12/30/2018 11:33 AM CDT) Anatomical Region Laterality Modality Abdomen, Pelvis, Ultrasound RST LOS, Ultrasound ARZ LOS, N/A Ultrasound Ultrasound FLA LOS Specimen (Source) Anatomical Collection Method Collection Time Re ceived Time Location / / Volume Laterality 12/30/2018 12:08 PM CDT Impressions 12/30/2018 12:09 PM CDT Normal caliber abdominal aorta and bilateral common iliac arteries. Narrative 12/30/2018 12:09 PM CDT EXAM: ??US AORTA Exam performed with color and spectral D oppler analysis. COMPARISON: ??None FINDINGS: ?? Aorta: AP - 1.4 cm Aorta: Trans - 1.6 cm Right LAURI: AP - 1.0 cm Right LAURI Trans - 1.4 cm Left LAURI: AP - 1.0 cm Left LAURI Trans - 0.9 cm Procedure Note Andrew Wilson M.D. - 12/30/2018Forma tting of this note might be different from the original. EXAM: US AORTA Exam performed with color and spectral D oppler analysis. COMPARISON: None FINDINGS: Aorta: AP - 1.4 cm Aorta: Trans - 1.6 cm Right LAURI: AP - 1.0 cm Right LAURI Trans - 1.4 cm Left LAURI: AP - 1.0 cm Left LAURI Trans - 0.9 cm IMPRESSION: Normal caliber abdominal aorta and bilat eral common iliac arteries. Blas Peck M.D. I[facility]resa US PROCEDURES documented in this encounter Visit Diagnoses Diagnosis Abdominal Pain documented in this encounter Additional Health Concerns Assessment Noted Time PHQ-9 Depression Total Score: 4 09/23/2018 10:37 AM CD T documented as of this encounter Care Teams Rn Document Improvement Specialist Relationship Specialty Start Date End Date Franco Molina M.D. PCP - General 09/25/16 07/27/19 documented as of this encounter
--- OUTSIDE RECORDS SUMMARY | 2022-02-17 12:19 | XMS_ITS | Encounter Summary ---
:1950 Author Organization [facility] Address [address] [place] [address] Care Team Providers Name Role Phone Franco Molina M.D. Primary Care Provider Encounter Details Date Type Department Care Team Description 02/02/2019 Hospital Encounter Department of Pessanha, Dyspnea On Exertion Cardiovascular Diseases Blas Manley M.D. in [facility] 300 [facility] [address] [place] [phone] Social History Tobacco Use Types Packs/Day Years [...] is covered by insurance. Dx:E11.9 blood-glucose meter [facility] Dispense glucose 1 each 0 10/25 meter, [...] DAILY syringe LANTUS U-100 INSULIN 100 Inject 0.2 [...] Office Visit Cardiovascular Disease Blas Peck M.D. [address] [place] [phone] (Wo rk) documented as of this encounter Procedures Procedure Name Priority Date/Time Associated Diagnosis Comme nts (TTE) 2D ECHO Routine 02/02/2019 1:29 PM Dyspnea On Exertion R esults for this DOPPLER COLOR CDT procedure are in the results section. documented in this encounter Results (TTE) 2D ECHO DOPPLER COLOR (02/02/2019 1:29 PM CDT) [facility] gist Method Time Signature Ejection Fraction 59 MC CV EIMS Mid-Ascending Aorta 35 MC CV EIMS Wall Motion Score 1.13 MC CV EIMS Index LV Mass Index 81 MC CV EIMS LV End-Diastolic 47 MC CV EIMS Diameter LV End-Systolic 30 MC CV EIMS Diameter MV E Velocity 0.9 MC CV EIMS MV A Velocity 0.8 MC CV EIMS MV E/A 1.13 MC CV EIMS MV e' Velocity 0.07 MC CV EIMS Medial MV e' Velocity 0.08 MC CV EIMS Lateral MV E/e' Medial 12.9 MC CV EIMS MV E/e' Lateral 11.3 MC CV EIMS Left ventricular 45 MC CV EIMS stroke volume index Cardiac Output 6.68 MC CV EIMS Cardiac Index 3.09 MC CV EIMS LV Interventricular 11 MC CV EIMS Septal Wall Thickness LV Posterior Wall 10 MC CV EIMS Thickness LV Relative Wall 43 MC CV EIMS Thickness TAPSE 17 MC CV EIMS Tricuspid Annular S? 0.07 MC CV EIMS TR Vmax 2.29 MC CV EIMS RA Pressure 5 MC CV EIMS RV Systolic Pressure 26 MC CV EIM S AV mean gradient 2 MC CV EIMS Aortic valve area 4.44 MC CV EIMS Aortic Valve 0.98 MC CV EIMS Dimensionless Index LA Volume Index 27 MC CV EIMS WMSI At Rest 1.13 MC CV EIMS WMSI At Peak Stress 1.13 MC CV EIMS Anatomical Region Laterality Modality Echocardiography Specimen (Source) Anatomical Collection Method Collection Time Re ceived Time Location / / Volume Laterality 02/02/2019 11:03 AM CDT Impressions 02/02/2019 2:43 PM CDT LEFT VENTRICLE: ??Normal left ventricular chamber size. ??Calculated left ventricular ejection fraction 59 %. ??Regional wall motion ab normalities were present (see wall motion graphics). Normal left ventricular wall thickness. ??Findings consistent with normal left ventricular filling pressure. ??RIGHT VENTRICLE: ??N ormal right ventricular size. ??Mild decrease in right ventricular systolic function. ??Estimat ed right ventricular systolic pressure 26 mmHg (systolic blood pressure 140 mmHg). ??ATRIA: ??Nor mal left atrial size. ??Left atrial volume index 27 ml/m^2. ??Normal right atrial size. ??CA RDIAC VALVES: ??Trileaflet aortic valve. ??Thickened aortic valve. ??No aortic valve regurgitation. ??Mildly calcified mitral annulus. ??Mildly thickened mitral valve. ??Trivial mitral valve reg urgitation. ??Normal pulmonary valve. ??Trivial pulmonary valve regurgitation. ??Normal tricuspid valve. ??Trivial tricuspid valve regurgitation. ??OTHER ECHO FINDINGS: ??Normal ascending aorta dimension. ??Abdominal aorta not visualized. ??Normal inferior vena cava size with normal insp iratory collapse (>50%). ??No shunt at atrial level by color flow imaging. ??No intracardiac ma ss or thrombus, but the left atrial appendage cannot be visualized adequately with transthoracic echo to exclude thrombus in this location. ??No pericardial effusion. For the complete report, see the [employer] evLogentries Documents below. See PDF For Result Narrative 02/02/2019 2:43 PM CDT For the complete report, see the ABS Documents below. Final Impressions 1. Normal left ventricular chamber size. ??Calculated ejection fraction 59% (estimated 55%). Regional wall motion abnormalities (see graphics). 2. Findings consistent with normal left ventricular filling pressure. 3. Normal right ventricular size. ??Mild ly decreased systolic function (involving the mid and apical segments). Estimated right ventri cular systolic pressure 26 mmHg. 4. No significant valvular heart disease . 5. Normal inferior vena cava size with n ormal inspiratory collapse (>50%). 6. No pericardial effusion. 7. Compared to the report of 06/10/2017 the following changes have occurred: the right ventricular size appears smaller on avai lable images. ??Side by side comparison of images performed. Procedure Note Blas Peck M.D. - 02/02/2019Form atting of this note might be different from the original. For the complete report, see the ABS Documents below. Final Impressions 1. Normal left ventricular chamber size. Calculated ejection fraction 59% (estimated 55%). Regional wall motion abnormalities (see graphics). 2. Findings consistent with normal left ventricular filling pressure. 3. Normal right ventricular size. Mildly decreased systolic function (involving the mid and apical segments). Estimated right ventri cular systolic pressure 26 mmHg. 4. No significant valvular heart disease . 5. Normal inferior vena cava size with n ormal inspiratory collapse (>50%). 6. No pericardial effusion. 7. Compared to the report of 06/10/2017 the following changes have occurred: the right ventricular size appears smaller on avai lable images. Side by side comparison of images performed. Findings LEFT VENTRICLE: Normal left ventricular chamber size. Calculated left ventricular ejection fraction 59 %. Regional wall motion abno rmalities were present (see wall motion graphics). Normal left ventricular wall thickness. Findings consistent with normal left ventricular filling pressure. RIGHT VENTRICLE: Lulú l right ventricular size. Mild decrease in right ventricular systolic function. Estimated right ventricular systolic pressure 26 mmHg (systolic blood pressure 140 mmHg). ATRIA: Normal left atrial size. Left atrial volume index 27 ml/m^2. Normal right atrial size. CARDIA C VALVES: Trileaflet aortic valve. Thickened aortic valve. No aortic valve regurgitation. Mi ldly calcified mitral annulus. Mildly thickened mitral valve. Trivial mitral valve regur gitation. Normal pulmonary valve. Trivial pulmonary valve regurgitation. Normal tricuspid va lve. Trivial tricuspid valve regurgitation. OTHER ECHO FINDINGS: Normal ascending aorta di mension. Abdominal aorta not visualized. Normal inferior vena cava size with normal insp iratory collapse (>50%). No shunt at atrial level by color flow imaging. No intracardiac mass or thrombus, but the left atrial appendage cannot be visualized adequately with transthoracic echo to exclude thrombus in this location. No pericardial effusion. For the complete report, see the Order-L [employer]el Documents below. See PDF For Result Blas Peck M.D. CV ECHO PROCEDURES documented in this encounter Visit Diagnoses Diagnosis Dyspnea On Exertion documented in this encounter Additional Health Concerns Assessment Noted Time PHQ-9 Depression Total Score: 4 09/23/2018 10:37 AM CD T documented as of this encounter Care Teams Dental Equipment Repairer Relationship Specialty Start Date End Date Franco Molina M.D. PCP - General 09/25/16 07/27/19 documented as of this encounter
--- OUTSIDE RECORDS SUMMARY | 2022-02-17 12:19 | XMS_ITS | Encounter Summary ---
:1950 Author Organization [facility] Address [address] [place] [address] Care Team Providers Name Role Phone Franco Molina M.D. Primary Care Provider Reason for Visit Reason Comments Med Refill Encounter Details Date Type Department Care Team Description 03/22/2019 Refill Department of [facility] Torey Molina M.D. Med Refill Internal Medicine in [address] [place] [address], [facility] [address] [place] [address] [place] [address] [place] [phone] Social History Tobacco Use [...] this encounter Miscellaneous Notes Telephone Encounter - Franco Molina M.D. - 03/22/2019 11:05 AM CST Sent a new prescription. ET RESEARCH SPECIALIST Telephone Encounter - Brenda Fajardo - 03/22/2019 10:48 AM CST Nurse Review: Pharmacy Communication Provider: Franco Molina M.D. Medication: Cimetidine tab Strength: 400 mg Frequency: Take one tablet by mouth twice daily [facility] Comment: Medication is not covered by patients insurance. Preferred alternative is Nizatidine. Please send a new Rx. Thanks ET RESEARCH SPECIALIST documented in this encounter Plan of Treatment Upcoming Encounters Date Type Specialty Care Team Description 04/23/2022 Office Visit Cardiovascular Disease Blas Peck M.D. [address] [place] [phone] (Wo rk) documented as of this encounter Visit Diagnoses Not on filedocumented in this encounter Additional Health Concerns Assessment Noted Time PHQ-9 Depression Total Score: 4 09/23/2018 10:37 AM CD T documented as of this encounter Care Teams Geological Drafter Relationship Specialty Start Date End Date Franco Molina M.D. PCP - General 09/25/16 07/27/19 documented as of this encounter
--- OUTSIDE RECORDS SUMMARY | 2022-02-17 12:19 | XMS_ITS | Encounter Summary ---
:1950 Author Organization [facility] Address [address] [place] [address] Care Team Providers Name Role Phone Franco Molina M.D. Primary Care Provider Reason for Visit Reason Comments Care Coordination - Systematic Case Reveiw Encounter Details Date Type Department Care Team Description 12/17/2018 Patient Outreach Department of Michelle Taylor Manager Database rdination - Internal Medicine in [facility], [facility] tic Case [place], [place] Reveiw [address] [place] [address] Social History Tobacco Use Types [...] as of this encounter Progress Notes Michelle Taylor, R.N. - 12/17/2018 3:00 PM CDT Admission Date: 04/22/2018 Admission Goal: A1c less than 7.5% Two Chronic Conditions: Patient Active Problem List Diagnosis ??? 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 Coronary Artery Disease Without Angina Pectoris ??? Anxiety ??? Apnea Sleep Obstructive ??? Body Mass Index 34.0 To 34.9 Adult ??? Callus [place]burn Foot ??? Constipation ??? Congestion Nasal ??? Coronary Arterial Bypass Graft Status Post Personal History ??? Diverticulosis Colon ??? Hay Fever ??? Hyperlipidemia ??? Hyponatremia ??? Irritable Bowel Syndrome With Constipation ??? Numbness ??? Primary Osteoarthritis Hip Bilateral ??? Primary Osteoarthritis Knee Bilateral ??? Overactive Bladder ??? Panic Disorder Episodic Paroxysmal Anxiety ??? Polyp Colon Adenomatous ??? Rhinitis Allergic ??? Frequency Urinary ??? 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 High Risk Medication ??? Lower Abdominal Pain Unspecified ??? Polyp Colon Hyperplastic ??? Benign Prostatic Hyperplasia With Lower Urinary Tract Symptom ??? Pain Chest ??? Dyspnea NOS ??? Pain Penis ??? Dysuria ??? Sore Throat ??? Pain Ear Bilateral ??? Sinusitis Acute Maxillary ??? Paraphimosis ??? Hernia Inguinal Left ??? Nicotine Dependence Other Tobacco Product With Other Nicotine Induced Disorder ??? Obesity Body Mass Index 30-39.9 Adult ??? Polyp Colon Adenomatous Personal History ED/Hospitalizations Since Admission: 0 The patient was reviewed in SCR today. SCR team recommends agrees with patient being dicharged, patient is already aware of discharge plan. Recommendations from Psychiatry (Dr. Bart Rai) and Medicine (Dr. Jewell) are based on chartreview and case review for care coordination. Patient was not seen in person by Primary Care or Psychiatrist. The goal is for recommendations to be seen as options/suggestions by the care coordination team, with the expectation that the application of these or other clinical recommendations should always be subject to PCP's discretion and clinical discussions with patient going forward. Patient was not seen but discussed as part of care coordination activities. documented in this encounter Plan of Treatment Upcoming Encounters Date Type Specialty Care Team Description 04/23/2022 Office Visit Cardiovascular Disease Blas Peck M.D. [address] [place] [address] [phone] (Wo rk) documented as of this encounter Visit Diagnoses Not on filedocumented in this encounter Additional Health Concerns Assessment Noted Time PHQ-9 Depression Total Score: 4 09/23/2018 10:37 AM CD T documented as of this encounter Care Teams Furnace Attendant Relationship Specialty Start Date End Date Franco Molina M.D. PCP - General 09/25/16 07/27/19 documented as of this encounter
--- OUTSIDE RECORDS SUMMARY | 2022-02-17 12:19 | XMS_ITS | Encounter Summary ---
:1950 Author Organization [facility] Address [address] [place] [address] Care Team Providers Name Role Phone Franco Molina M.D. Primary Care Provider Reason for Visit Reason Onset Date Comments Injections 04/11/2019 follow up Encounter Details Date Type Department Care Team Description 04/11/2019 Clinical Communication Department of Alexus Matamoros (follow Orthopedic Surgery prisca Izaguirre[facility] [address] [place] [phone] Social History Tobacco Use Types Packs/Day Years [...] this encounter Miscellaneous Notes Telephone Encounter - Montserrat Holm L.PPapa. - 04/11/2019 3:37 PM DATA OFFICER Message left for patient to return my call. OFFICER documented in this encounter Plan of Treatment Upcoming Encounters Date Type Specialty Care Team Description 04/23/2022 Office Visit Cardiovascular Disease Blas Peck M.D. [address] [place] [address] [phone] (Wo rk) documented as of this encounter Visit Diagnoses Not on filedocumented in this encounter Additional Health Concerns Assessment Noted Time PHQ-9 Depression Total Score: 4 09/23/2018 10:37 AM CD T documented as of this encounter Care Teams Ground Crew Chief Relationship Specialty Start Date End Date Franco Molina M.D. PCP - General 09/25/16 07/27/19 documented as of this encounter
--- OUTSIDE RECORDS SUMMARY | 2022-02-17 12:19 | XMS_ITS | Encounter Summary ---
:1950 Author Organization [facility] Address [address] [place] [address] Care Team Providers Name Role Phone Franco Molina M.D. Primary Care Provider Encounter Details Date Type Department Care Team Description 01/26/2019 Episode Changes Department of Internal [place], Radha Anthony, Medicine in [address] [phone] Social History Tobacco Use Types Packs/Day Years [...] Office Visit Cardiovascular Disease Blas Peck M.D. [address] [place] [address] [phone] (Wo rk) documented as of this encounter Visit Diagnoses Not on filedocumented in this encounter Additional Health Concerns Assessment Noted Time PHQ-9 Depression Total Score: 4 09/23/2018 10:37 AM CD T documented as of this encounter Care Teams Land Surveyor Relationship Specialty Start Date End Date Franco Molina M.D. PCP - General 09/25/16 07/27/19 documented as of this encounter
--- OUTSIDE RECORDS SUMMARY | 2022-02-17 12:19 | XMS_ITS | Encounter Summary ---
:1950 Author Organization [facility] Address [address] [place] [address] Care Team Providers Name Role Phone Franco Molina M.D. Primary Care Provider Reason for Referral Outpatient (Routine) - Closed Specialty Diagnoses / Procedures Referred By Contact Refer red To Contact Urology Sabrina Valadez APRN, C.N.P. [facility] [address] [place] [phone] Referral ID Status Reason Start Date Expiration Date Visits Requ ested Visits Authorized [id number] Closed 02/14/2019 02/14/2020 1 1 [employer] MARKETING [employer]PER[employer] Reason for Visit Reason Comments Follow-up BPH with [facility] Outpatient (Routine) - Closed Specialty Diagnoses / Procedures Referred By Contact Refer red To Contact Urology Sabrina Valadez APRN, C.N.P. [facility] [address] [place] [phone] Referral ID Status Reason Start Date Expiration Date Visits Requ ested Visits Authorized [id number] Closed 12/20/2018 12/20/2019 1 1 Encounter Details Date Type Department Care Team Description 02/14/2019 Office Visit Department of Urology Sabrina Valadez, Benign Prostatic Hyperplasia With Lower Urinary Tract Symptom (Primary Dx); in BRIAN [place], C.N.P. Paraphimosis; [place] [address] Overactive Bladder; [address] [place] Prostatitis Chronic [place] [phone] Social History Tobacco Use Types Packs/Day Years [...] Sign Reading Time Taken Comments Blood Pressure 101/70 02/14/2019 1:12 PM DIRECTOR OF MARKETING OPERATIONS Pulse 78 02/14/2019 1:12 PM DIRECTOR OF MARKETING OPERATIONS Temperature 37 ??C (98.6 ??F) 02/14/2019 1:12 PM DIRECTOR OF MARKETING OPERATIONS Respiratory Rate - - Oxygen Saturation - - Inhaled Oxygen Concentration - - Weight - - Height - - Body Mass Index - - documented in this encounter Progress Notes Sabrina Valadez, BRIAN, C.N.P. - 02/14/2019 1:30 PM CST SUBJECTIVE CHIEF COMPLAINT/REASON FOR VISIT BPH, chronic prostatitis HISTORY OF PRESENT ILLNESS Elvis is a pleasant 68-year-old male here today for a follow-up of Benign Prostatic Hypertrophy withlower urinary tract symptoms and chronic prostatitis. He has been taking Flomax and oxybutynin daily. He has had difficulty controlling his diabetes, he is checking his blood sugars more regularly. Please see below for further details. AUASS Total Symptom score: Total Problems due to symptoms score: Total Quality of Life score: Urology AUA total: 53/82 The following portions of the patient's history were reviewed and updated as appropriate: allergies,current medications, family history, medical history, social history, surgical history and problem list. REVIEW OF SYSTEMS Gastrointestinal: Was constipated for a while and urinary symptoms were worse. Genitourinary: Has been double voiding intermittently, gets up in the night. Wears foreskin back causing paraphimosis. Blood sugars have been less than 200 lately. Gets up 1-2 times in the night, slow stream. OBJECTIVE Vitals: 02/14/19 1312 BP: 101/70 Patient Position: Sitting Pulse: 78 Temp: 37 ??C PHYSICAL EXAM Vitals and nursing note [...] without abnormal skin, contour changes or plaques. Meatus appears normal and is located in normal position on glans penis. Foreskin is retracted, able to move foreskin backand forth over penis. No urethral discharge. Testicles of normal size, descended bilaterally with nomasses or tenderness. PROSTATE: Perianal area intact without lesions or visible hemorrhoids. No fissures or fistulas. Goodsphincter tone, no masses. Prostate is symmetrical, smooth, boggy, enlarged, tender and without nodules. Seminal vesicles are non- palpable. Approximate size is 50 grams. Extremities: Warm, without edema or ulcerations. Musculoskeletal: [place] is symmetrical and balanced. DIAGNOSTIC Patient voided less than 20 mL into the uroflow. Postvoid residual by bladder scan 124 mL. ASSESSMENT / PLAN #1 Benign Prostatic Hypertrophy with lower urinary tract symptoms #2 Chronic prostatitis It does seem that he is having a flare of prostatitis at this time. Prescription for levofloxacin 500 mg tablet, 1 tablet daily for 6 weeks is sent to his pharmacy. If he has any side effects from the medication or has trouble with urinary symptoms he should contact us. Otherwise I would like to see him back in clinic in approximately 3 months for a recheck of symptoms. All of his questions have beenanswered today and he is in agreement with this plan. Signed by: Sabrina Valadez APRN, C.N.P. 02/14/2019 1:36 PM CTOR OF MARKETING [employer]PERATIONS documented in this encounter Plan of Treatment Upcoming Encounters Date Type Specialty Care Team Description 04/23/2022 Office Visit Cardiovascular Disease Blas Peck M.D. [address] [place] [address] [phone] (Wo rk) Scheduled Referrals Name Type Priority Associated Diagnoses Order S [facility] Urology office Outpatient Referral Routine Expect ed: visit (clinic) 05/17/2019 (Approximate), Expires: 02/14/2022 documented as of this encounter Visit Diagnoses Diagnosis Benign Prostatic Hyperplasia With Lower Urinary Tract Symptom - Primary Paraphimosis Overactive Bladder Prostatitis Chronic documented in this encounter Additional Health Concerns Assessment Noted Time PHQ-9 Depression Total Score: 4 09/23/2018 10:37 AM CD T documented as of this encounter Care Teams Pearl Restorer Relationship Specialty Start Date End Date Franco Molina M.D. PCP - General 09/25/16 07/27/19 documented as of this encounter
--- OUTSIDE RECORDS SUMMARY | 2022-02-17 12:20 | XMS_ITS | Encounter Summary ---
:1950 Author Organization [facility] Address [address] [place] [address] Care Team Providers Name Role Phone Franco Molina M.D. Primary Care Provider Reason for Referral Outpatient (Routine) - Closed Specialty Diagnoses / Procedures Referred By Contact Refer red To Contact [facility] [address] [place] [address] Referral ID Status Reason Start Date Expiration Date Visits Requ ested Visits Authorized [id number] Closed 11/22/2018 11/22/2019 1 1 Reason for Visit Reason Comments Coronary Artery Disease Hyperlipidemia Hypertension Outpatient (Routine) - Closed Specialty Diagnoses / Procedures Referred By Contact Refer red To Contact Cardiovascular [facility] [address] [place] [address] Referral ID Status Reason Start Date Expiration Date Visits Requ ested Visits Authorized [id number] Closed 12/16/2017 12/16/2018 1 1 Encounter Details Date Type Department Care Team Description 11/22/2018 Office Visit Department of Blas Peck Dyspnea On Exertion (Primary Dx); Cardiovascular Diseases S, M.D. Abdominal Pain in [facility] [address] [place] [phone] Social History Tobacco Use [...] Sign Reading Time Taken Comments Blood Pressure 107/62 11/22/2018 1:45 PM CDT Pulse 71 11/22/2018 1:45 PM CDT Temperature - - Respiratory Rate - - Oxygen Saturation 96% 11/22/2018 1:42 PM CDT Inhaled Oxygen Concentration - - Weight 102 kg (225 lb 13.8 oz) 11/22/2018 1:42 PM CDT Height 173 cm (5' 8.11) 11/22/2018 1:42 PM CDT Body Mass Index 34.23 11/22/2018 1:42 PM CDT documented in this encounter Progress Notes Blas Peck M.D. - 11/22/2018 1:45 PM CDT ASSESSMENT / PLAN 1. ??Coronary artery disease. ?- Status post CABG 4-vessel, [place] 2015. - Cardiopulmonary NST 07/2017 Stress ECG negative for ischemia; medium primarily fixed defect c/w infarction involving the inferior and inferolateral segments, the inferolateral defect has mild associated ischemia; limited peak VO2 with cardiac impairment to exercise; reasons for low peak view to likely include excess weight, limited heart reserve, impaired cardiac output; LVE 68% at rest. 2. Dyspnea on exertion. 3. ??Mild RVE with mildly reduced systolic function by ECHO 05/2017. ?? 4. Hypertension. 5. ??Hyperlipidemia. 6. ??Obesity, BMI 34. 7. ??Obstructive sleep apnea. 8. ??History of hyponatremia. 9. ??History of panic attacks, depression/anxiety 10. ??Irritable??bowel syndrome. 11. ??Osteoarthritis. 12. ??Diabetes mellitus type 2 with neuropathy 13. Tobacco use disorder, pipe smoking. 14. Erectile dysfunction. ?? Coronary artery disease. No recurrence of chest discomfort. Stable dyspnea on exertion, see below. Limited by lower abdominal discomfort and right knee pain. We again reviewed the results of the cardiopulmonary nuclear stress test from July 2017 with the patient. He is euvolemic clinically. He continues to report episodes of ???panic attacks?? , mild. Previously on medication for anxiety but no longer using those. We discussed with the patient the option for proceeding with invasive assessment of his coronary anatomy and hemodynamic/right heart testing. Pros and cons of this approach were explained to the patient but, in the end, he decided to continue medical therapy for now as he does not feel s ignificantly limited by the symptoms. We will continue antiplatelet therapy and risk modification but he agrees to call me in case of worsening symptoms for additional testing. Hypertension is well controlled. ??Excellent lipids (LDL 65 09/2018) as documented in the recent past. We have considered further up titration to high-intensity but since LDL is less than 70 continue to postpone for now. His diabetes control is not adequate and is following up regularly with his internal medicine provider forth (latest A1c was 9.3). Again discussed the importance of regular exercise. ?? Dyspnea exertion. ??Multifactorial. ??[place] heart Association class 2. ??No evidence of volume overload on exam or based on prior labs (BNP 99 05/2017). As previously discussed, his prior echo was not suggestive of constriction and normal filling pressure described. Cardiopulmonary stress test suggested some cardiac limitations to exercise as well. Still, deconditioning and obesity are likely to be playing an important role. Exercise and weight loss recommended. In case of worsening symptoms, additional testing could be performed as mentioned above. ??Cessation of tobacco use recommended. ?? Right ventricular abnormalities found on echo. No pulmonary hypertension associated. ??These findings are more likely secondary to obesity and untreated obstructive sleep apnea. ??We previously recommended follow-up with primary care provider and CPAP therapy if indicated. We will repeat an echocardiogram to reassess the right ventricular dysfunction. Lower abdominal discomfort. This is unlikely vascular in nature. Still, the patient has smoked a pipe for approximately 50 years and would benefit from having assessment for the possibly of an abdominal aortic aneurysm. This has been ordered. Testing for additional causes and management per primary care provider. ?? PLAN: #1 Dyspnea On Exertion - Echo Transthoracic (TTE); Future; Expected date: 11/22/2018 #2 Abdominal Pain - US Aorta; Future; Expected date: 11/22/2018 Other orders - Cardiovascular Disease office visit (clinic) - Cardiovascular Disease office visit (clinic); Future; Expected date: 11/23/2019 - Follow up with Cardiology in 12 months or call us sooner in case of problems or concerns. The patient expressed understanding of the information discussed during the visit today and agreement with the plan. CARDIOLOGY SUBSEQUENT VISIT Location: [facility]. SUBJECTIVE CHIEF COMPLAINT Office follow-up. HISTORY OF PRESENT ILLNESS Mr. Elvis Dawkins is a very pleasant 68 y.o. male who presents to [facility] for follow-up. His primary care provider is Franco Molina M.D.. Last seen by me on December 2017. Presenting unaccompanied by family. I had the pleasure of seeing Mr. Elvis Dawkins in clinic today. He is 68 y.o. years old. The patient presents today stating that his symptoms are overall stable. Is mostly bothered by lower abdominal discomfort and right knee pain. The abdominal discomfort has been mostly chronic. He states that he did not require hernia surgery. It tends to be more noticeable when standing up for prolonged periods of time. He does report stable dyspnea on exertion. No recurrent chest discomfort. No lightheadedness, palpitations or loss of consciousness. He believes he is cusps CPAP therapy with his primary care provider but did not want to undergo repeat sleep study. He was last seen by his internal per medicine provider October 2018. Elevated A1c at that time and his Lantus insulin dose was increased. Compliant medication without side effects. He occasional reports per ???panic attacks?? . States he was onantianxiety medication the past but discontinued the medication. Patient was seen in the ER October 18, 2018. He felt he was having a stroke but in the ER he was felt that this was due to hyperglycemia. Creatinine was also found to be mildly elevated and p.o. fluid hydration was recommended. Records reviewed. He has a sedentary lifestyle but believes he is able to walk up more than a flight of stairs and more than a block at a flat surface. PERTINENT CARDIAC (OR RELATED) STUDIES REVIEWED: Echocardiogram May 2017: 1. Normal left ventricular [...] study). Side by side comparison of images performed. Current Outpatient Medications Medication Sig ??? aspirin 81 mg chewable tablet Chew 1 tablet daily. ??? atorvastatin (LIPITOR) 20 mg tablet Take 1 tablet (20 mg total) by mouth at bedtime. ??? blood sugar diagnostic (glucose blood) strips 3 test daily. Whatever is covered by insurance. Dx:E11.9 ??? blood-glucose meter [facility] Dispense glucose meter, test strips, lancing device, and lancets covered by the patient insurance. Test 3 times per day. Dx: E11.40, E11.65 ??? busPIRone (BUSPAR) 10 mg tablet Take 2 tablets (20 mg total) by mouth 3 (three) times a day. (Patient taking differently: Take 20 mg by mouth 3 (three) times a day. Per patient, taking twice daily ) ??? CONTOUR TEST STRIPS strips USE ONE STRIP TO CHECK GLUCOSE ONCE DAILY BEFORE BREAKFAST ??? docusate sodium (for_COLACE) 100 mg capsule Take 100 mg by mouth daily as needed. ??? FLUoxetine (PROzac) 40 mg capsule Take 1 capsule (40 mg total) by mouth every morning. ??? glipiZIDE (GLUCOTROL) 10 mg tablet Take 1 tablet (10 mg total) by mouth 2 (two) times a day before breakfast and dinner. Stop Amaryl ??? insulin syringe-needle U-100 0.3 mL 31 gauge x 15/64 syringe USE TO INJECT ONCE DAILY ??? lancets Check sugar 3 times daily before meals ??? LANTUS U-100 INSULIN 100 unit/mL injection Inject 0.15 mL (15 Units total) under the skin daily with dinner. Dose increased on 10/25/2018 ??? levoFLOXacin (LEVAQUIN) 500 mg tablet Take 1 tablet (500 mg total) by mouth daily for 21 days. ??? linaGLIPtin (TRADJENTA) 5 mg tablet Take 1 tablet (5 mg total) by mouth daily. ??? lisinopril (PRINIVIL,ZESTRIL) 2.5 mg tablet TAKE ONE TABLET BY MOUTH IN THE MORNING ??? metoprolol tartrate (LOPRESSOR) 25 mg tablet Take 1 tablet (25 mg total) by mouth 2 (two) times a day. ??? nitroglycerin (NITROSTAT) 0.[address] under the tongue. ??? oxybutynin (DITROPAN-XL) 10 mg 24 hr tablet Take 1 tablet (10 mg total) by mouth at bedtime. ??? PEPPERMINT OIL ORAL Take 1 capsule [...] (0.4 mg total) by mouth daily. ??? fluticasone (for_FLONASE) 50 mcg/actuation nasal spray Administer 2 sprays into each nostril daily. ??? ipratropium (ATROVENT) 0.03 % nasal spray Administer 2 sprays into each nostril 3 (three) times a day as needed for rhinitis. Allergies Allergen Reactions ??? Sertraline Other (see comments) ??? Sulfamethoxazole-Trimethoprim Swelling REVIEW OF SYSTEMS Constitutional: Positive for fatigue (Poor sleep) and weight gain of more than 10 pounds. Eyes: Positive for visual problems. Respiratory: Positive for dyspnea. Cardiovascular: Negative for chest pain, pressure or tightness, swelling in the legs or feet and rapid or fluttering heart beat. Gastrointestinal: Positive for heartburn. Genitourinary: Positive for erectile dysfunction. Musculoskeletal: Positive for arthralgias, pain or stiffness in the joints and muscle pain/stiffness. Neurological: Negative for loss of consciousness. All other systems reviewed and are negative. The following portions of the patient's history were reviewed and updated as appropriate: allergies,current medications, family history, medical history, social history and problem list. OBJECTIVE Vitals: 11/22/18 1342 11/22/18 1345 BP: 98/65 107/62 BP Location: Left arm Right arm Patient Position: Sitting Sitting Cuff Size: Large Large Pulse: 77 71 SpO2: 96% Weight: 102 kg Height: 173 cm BP Readings from Last 3 Encounters: 11/22/18 107/62 11/08/18 117/63 10/25/18 114/61 Wt Readings from Last 3 Encounters: 11/22/18 102 kg 10/25/18 103 kg 09/24/18 102 kg Body mass index is 34.23 kg/m??. PHYSICAL EXAMINATION GENERAL: Patient is awake, alert, oriented x3. No acute distress. EYES: No pallor. No icterus. No xanthelasma. NECK: No jugular venous distention. No carotid bruits. CHEST/LUNGS: No chest deformity. Normal respiratory effort. Good entry bilaterally. No adventitious sounds. CARDIOVASCULAR: Normal rate and regular rhythm. Normal S1 and S2. No murmurs, rubs, or gallops. Negative hepatojugular reflux. ABDOMEN: Exam deferred. LOWER EXTREMITIES: Lower extremity warm without edema. UPPER EXTREMITIES: 1+ Radial pulses bilaterally. Normal capillary refill. No cyanosis. NEUROLOGIC: Exam deferred. DIAGNOSTICS I have reviewed the patient's current laboratory, imaging, and other diagnostic studies. Pertinent laboratory studies have been reviewed and are notable for: Hospital Outpatient Visit on 09/22/2018 Component Date Value ??? Microalbumin 09/22/2018 9.0 ??? Creatinine 09/22/2018 103 ??? Albumin/Creatinine Ratio 09/22/2018 9 Hospital Outpatient Visit on 09/22/2018 Component Date Value ??? Hemoglobin 09/22/2018 15.5 ??? Hematocrit 09/22/2018 45.8 ??? Erythrocytes 09/22/2018 5.28 ??? MCV 09/22/2018 86.7 ??? RBC Distrib Width 09/22/2018 14.0 ??? Platelet Count 09/22/2018 157 ??? Leukocytes 09/22/2018 6.7 ??? Potassium, S 09/22/2018 5.4* ??? Sodium, S 09/22/2018 136 ??? Chloride, S 09/22/2018 99 ??? Bicarbonate, S 09/22/2018 25 ??? Anion Gap 09/22/2018 12 ??? Bld Urea Nitrog(BUN), S 09/22/2018 15 ??? Creatinine, S 09/22/2018 1.03 ??? eGFR-Non Black 09/22/2018 75 ??? eGFR-Black 09/22/2018 86 ??? Calcium, Total, S 09/22/2018 9.7 ??? Glucose, S 09/22/2018 188* ??? Aspartate Aminotransfera* 09/22/2018 19 ??? Alanine Aminotransferase* 09/22/2018 15 ??? Creatine Kinase (CK), S 09/22/2018 267 ??? Hemoglobin A1c, B 09/22/2018 9.3* ??? Cholesterol, Total, S 09/22/2018 130 ??? Triglycerides, S 09/22/2018 99 ??? Cholesterol, HDL, S 09/22/2018 45 ??? Calculated LDL 09/22/2018 65 ??? Non HDL Cholesterol 09/22/2018 85 ??? TSH, Sensitive, S 09/22/2018 1.5 Office Visit on 07/16/2018 Component Date Value ??? Endomysial Ab 07/16/2018 Negative ? ? Tissue Transglutaminase * 07/16/2018 <0.5 ??? Enteric Pathogens Cultur* 07/25/2018 Value:No growth of Salmonella, Shigella, Yersinia, Campylobacter, or Aeromonas. Hospital Outpatient Visit on 06/14/2018 Component Date Value ??? Potassium, S 06/14/2018 4.9 ??? Sodium, S 06/14/2018 134* ??? Chloride, S 06/14/2018 98 ??? Bicarbonate, S 06/14/2018 27 ??? Anion Gap 06/14/2018 9 ??? Bld Urea Nitrog(BUN), S 06/14/2018 10 ??? Creatinine, S 06/14/2018 1.06 ??? eGFR-Non Black 06/14/2018 72 ??? eGFR-Black 06/14/2018 84 ??? Calcium, Total, S 06/14/2018 9.8 ??? Glucose, S 06/14/2018 131 ??? Bilirubin, Total, S 06/14/2018 0.9 ??? Bilirubin, Direct, S 06/14/2018 0.2 ??? Aspartate Aminotransfera* 06/14/2018 22 ??? Alanine Aminotransferase* 06/14/2018 14 ??? Alkaline Phosphatase, S 06/14/2018 111 ??? Albumin, S 06/14/2018 4.6 ??? Protein, Total, S 06/14/2018 6.8 ??? Creatine Kinase (CK), S 06/14/2018 293 ??? Hemoglobin A1c, B 06/14/2018 8.7* Office Visit on 05/28/2018 Component Date Value ??? Source 05/28/2018 Midstream ??? Clarity 05/28/2018 Clear ??? Color 05/28/2018 Yellow ??? Blood 05/28/2018 Trace* ??? Nitrite 05/28/2018 Negative ??? Leukocyte Esterase 05/28/2018 Negative ??? Protein 05/28/2018 Negative ??? Glucose 05/28/2018 500* ??? Ketones, QI(U) 05/28/2018 Negative ??? Bilirubin 05/28/2018 Negative ??? pH 05/28/2018 5.5 ??? Specific [place] 05/28/2018 1.010 ??? Urobilinogen 05/28/2018 0.2 ??? Bacterial Culture, Aerob* 05/28/2018 Mixed luis. ??? White Blood Cells 05/28/2018 None Seen ??? Red Blood Cells 05/28/2018 None Seen ??? Squamous Cells 05/28/2018 Occ-3 Lab Results Component Value Date CHOL 130 09/22/2018 TRIG 99 09/22/2018 HDL 45 09/22/2018 HDL 55 07/14/2016 Lab Results Component Value Date ALT 15 09/22/2018 Lab Results Component Value Date HGBA1C 9.3 (H) 09/22/2018 Lab Results Component Value Date TSH 1.5 09/22/2018 IMPRESSION/REPORT/PLAN See above. Blas Peck M.D. documented in this encounter Plan of Treatment Upcoming Encounters Date Type Specialty Care Team Description 04/23/2022 Office Visit Cardiovascular Disease Blas Peck M.D. [address] [facility] [place] [phone] (Wo rk) Scheduled Referrals Name Type Priority Associated Order Schedule Diagnoses Cardiovascular Disease Outpatient Referral Routine Expected: office visit (clinic) 2019 (Approximate), Expires: 11/22/2021 documented as of this encounter Results (TTE) 2D ECHO DOPPLER COLOR (02/02/2019 1:29 PM CDT) [facility] Method Time Signature Ejection Fraction 59 MC [...] effusion. For the complete report, see the [facility] Documents below. See PDF For Result Narrative 02/02/2019 2:43 PM CDT For the complete report, see the [facility] Documents below. Final Impressions 1. Normal left [...] original. For the complete report, see the Order-L ev[facility] Documents below. Final Impressions 1. Normal left [...] Result Blas Peck M.D. CV ECHO PROCEDURES US Aorta (12/30/2018 11:33 AM CDT) Anatomical [...] Diagnoses Diagnosis Dyspnea On Exertion - Primary Abdominal Pain Abdominal Pain Dyspnea On Exertion documented in this encounter Additional Health Concerns Assessment Noted Time PHQ-9 Depression Total Score: 4 09/23/2018 10:37 AM CD T documented as of this encounter Care Teams Distribution Superintendent Relationship Specialty Start Date End Date Franco Molina M.D. PCP - General 09/25/16 07/27/19 documented as of this encounter
--- OUTSIDE RECORDS SUMMARY | 2022-02-17 12:20 | XMS_ITS | Encounter Summary ---
:1950 Author Organization [facility] Address [address] [place] [address] Care Team Providers Name Role Phone Franco Molina M.D. Primary Care Provider Reason for Visit Reason Comments Care Coordination - Follow up Encounter Details Date Type Department Care Team Description 11/04/2018 Patient Outreach Department of Michelle Taylor Cryptologist rdination - [facility] R, R.N. Follow up Medicine in [address] [phone] Social History Tobacco Use Types Packs/Day Years Used Date Smoking Tobacco: Never Pipe Smokeless Tobacco: Never Alcohol Use Standard Drinks/Week Comments Yes 0 (1 standard drink = 0.6 oz pure alcoho l) Rare Alcohol Habits Answer Date Recorded How often [...] encounter Progress Notes Michelle Taylor, R.N. - 11/04/2018 1:11 PM CDT SUBJECTIVE REASON FOR VISIT Follow up on Elvis Dawkins participation in the Adult Care Coordination program. HISTORY OF PRESENT ILLNESS Summary of the discussion: Elvis shares with me today that he has been checking his blood sugars regularly. He has the log withhim, but states I am on the deck, and I am not going in, the dogs will get out. He states I have them memorized. He shares with me that the lowest was 112 and the highest has been 186. We discussed what he did different he tells me nothing has really changed, he is trying to eat less sweets. We spoke about his goal of walking twice per week. He tells me he has been walking some. We spoke about what he wanted to work on this next week. He states I don't like to overly plan, I like to take it day by day. Encouraged Elvis to continue to walk as much as able and to continue to monitor and record blood sugars. Goals Addressed This Visit's Progress Patient Stated ??? Exercise (pt-stated) On track Will walk outside 2x per week. Would like to start using his exercise bike daily. Other ??? Follow your action plan for Diabetes On track It is important to keep regular follow ups with your Primary Doctor. Talk with your doctor???s clinic nurse during office hours about any concerns you may have, by calling the Call Center at [phone], or calling your Jr. Java Developer, Michelle Taylor RN, at [phone]. If you have the online Portal, send a message to your provider regarding any concerns you may have. During non-office hours you can be directed to the ExpertRN line where a nurse can evaluate your symptoms for urgency and recommend appropriate follow up and care by calling [phone]. For medical emergencies requiring immediate attention, call 911 or proceed to your nearest emergencydepartment. [facility] open 24 hours a day, seven days a week. Immediately seek emergency help if you have symptoms of a heart attack or stroke, thoughts about suicide, a major injury or uncontrolled bleeding. Call 911 or your designated emergency number or get someone to take you to your local emergency room. Do not try to drive yourself to the emergency room. Follow your sick day plan when you are ill. This includes testing more frequently and monitoring forsigns of high blood sugars. Inspect your feet every day for: cuts, bruises, bleeding, redness and nail problems. Hypoglycemia Seek Emergency care for symptoms of hypoglycemia that do not improve with treatment. Symptoms include: sweating, shakiness, headache, changes in vision, weakness, nervousness, rapid heartbeat, confusion, persistent blood sugars less than 70 or irritability. Carry food or candy with you at all times to treat hypoglycemia (low blood sugar) Hyperglycemia Seek Emergency care for symptoms of hyperglycemia (high blood sugar) that do not improve with treatment. Symptoms include: increased thirst or urination, fatigue, blurred vision, weakness, nausea/vomiting, abdominal pain, fruity smelling breath, or rapid breathing. ??? Use Emergency plan On track Emergency Care: Hypoglycemia Seek Emergency care for symptoms of hypoglycemia that do not improve with treatment. Symptoms include: sweating, shakiness, headache, changes in vision, weakness, nervousness, rapid heartbeat, confusion, persistent blood sugars less than 70 or irritability. Carry food or candy with you at all times to treat hypoglycemia (low blood sugar) Hyperglycemia Seek Emergency care for symptoms of hyperglycemia (high blood sugar) that do not improve with treatment. Symptoms include: increased thirst or urination, fatigue, blurred vision, weakness, nausea/vomiting, abdominal pain, fruity smelling breath, or rapid breathing. ??? Use Sick day plan On track Sick Day Guidelines Illness places stress on your body. When your body is stressed, your blood glucose rises, making it especially important to follow the guidelines below: ??? Drink at least ?? cup of fluid every 30 to 60 minutes to prevent dehydration. If you are unable to eat solid food, this fluid should contain carbohydrates (e.g., regular soda, fruit juice). ??? If you previously received directions for sick day management, follow those guidelines. ??? If you have not previously received directions for sick day management, follow the guidelines below: 1. Monitor your blood glucose: ??? If you have type 1 diabetes, monitor your blood glucose every two hours. ??? If you have type 2 diabetes and have a glucose monitor, monitor your blood glucose every four hours. ??? If you do not take any diabetes medication and have a glucose meter, monitor your blood glucose twice a day. ??? If you were previously instructed how to test urine ketones, test your urine ketones if your blood glucose is greater than 250 mg/dL two times in a row. 2. Contact your health care provider if: ??? Your blood glucose is greater than 250 mg/dL two times in a row and you are unsure of what to do. ??? Your urine ketones are moderate or large and you are unsure of what to do. ??? You are unable to keep food or fluids down for more than six hours. ??? You have severe diarrhea that lasts 24 hours or longer. ??? You have a fever greater than 100 degrees Fahrenheit (37.8 degrees Celsius) for 24 to 48 hours. ??? You are uncertain about or unable to follow these sick day guidelines. ASSESSMENT/PLAN Next contact: 14 day(s) by Phone Call. Discussion items for the next contact include: blood sugars, exercise The following portions of the patient's history were updated as appropriate: education. The patient was instructed to contact the youth career specialist with any questions or concerns and statedunderstanding of the information provided. documented in this encounter Plan of Treatment Upcoming Encounters Date Type Specialty Care Team Description 04/23/2022 Office Visit Cardiovascular Disease Blas Peck M.D. [address] [place] [phone] (Wo ) documented as of this encounter Visit Diagnoses Not on filedocumented in this encounter Additional Health Concerns Assessment Noted Time PHQ-9 Depression Total Score: 4 09/23/2018 10:37 AM CD T documented as of this encounter Care Teams Gi Physician Relationship Specialty Start Date End Date Franco Molina M.D. PCP - General 09/25/16 07/27/19 documented as of this encounter
--- OUTSIDE RECORDS SUMMARY | 2022-02-17 12:20 | XMS_ITS | Encounter Summary ---
:1950 Author Organization [facility] Address [address] [place] [address] Care Team Providers Name Role Phone Franco Molina M.D. Primary Care Provider Reason for Referral Outpatient (Routine) - Closed Specialty Diagnoses / Procedures Referred By Contact Refer red To Contact Urology Diagnoses Benign Prostatic Hyperplasia Hypertrophy With Obstruction Franco Molina M.D. [facility] [address], [facility] [address] [place] [address] Referral ID Status Reason Start Date Expiration Date Visits Requ ested Visits Authorized [id number] Closed 10/28/2018 10/28/2019 1 1 Reason for Visit Reason Onset Date Comments Referral 10/28/2018 Encounter Details Date Type Department Care Team Description 10/28/2018 Clinical Communication Department of Nabeel Molina M.D. Referral [facility] Internal [address], [facility] in [address] [address] [place] [address] Social History Tobacco Use Types [...] this encounter Miscellaneous Notes Telephone Encounter - Amaya Trimble C.MAusten - 10/28/2018 9:32 AM CDT SUBJECTIVE CHIEF COMPLAINT / REASON FOR CALL Referral INFORMATION DISCUSSED Referral for Dr. Catherine. PLAN Disposition/Recommendation: patient transferred to the appointment desk Information: patient/caller able to repeat back in their own words Caller agreeable to plan of care: yes The following references were used: provider Dr. Molina Telephone Encounter - Franco Molina M.D. - 10/28/2018 9:28 AM CDT Order is in EHR. Telephone Encounter - Jimena Britt - 10/28/2018 8:51 AM CDT Reason for Communication: Patient would like a referral to Dr Mcdermott for his prostate issues. Current Can Nursing/Provider leave a detailed message: no Did the patient refuse triage through Nurse line? (for symptom based concerns): Action Needed: Please call patient Name of Medication (if relevant): documented in this encounter Plan of Treatment Upcoming Encounters Date Type Specialty Care Team Description 04/23/2022 Office Visit Cardiovascular Disease Blas Peck M.D. [address] [place] [phone] (Wo rk) Scheduled Referrals Name Type Priority Associated Diagnoses Order S [facility] Urology - General Outpatient Referral Routine Benign Prostatic Expected: - lower urinary Hyperplasia 10/28/2018 symptoms consult Hypertrophy With (Approx imate), (clinic) Obstruction Expires: 10/28/2021 documented as of this encounter Visit Diagnoses Diagnosis Benign Prostatic Hyperplasia Hypertrophy With Obstruction - Primary documented in this encounter Additional Health Concerns Assessment Noted Time PHQ-9 Depression Total Score: 4 09/23/2018 10:37 AM CD T documented as of this encounter Care Teams Can Filling Machine Operator Relationship Specialty Start Date End Date Franco Molina M.D. PCP - General 09/25/16 07/27/19 documented as of this encounter
--- OUTSIDE RECORDS SUMMARY | 2022-02-17 12:20 | XMS_ITS | Encounter Summary ---
:[address] [facility] Address [address] [place] [address] Care Team Providers Name Role Phone Franco Molina M.D. Primary Care Provider Reason for Visit Reason Comments Med Refill Encounter Details Date Type Department Care Team Description 10/29/2018 Refill Department of [facility] Torey Molina M.D. Med Refill Internal Medicine in [address] [place] [id number] [address] [facility] [place] [address] Social History Tobacco Use [...] Cardiovascular Disease Blas Peck M.D. [address] [place], [place] [phone] (Wo rk) documented as of this encounter Visit Diagnoses Not on filedocumented in this encounter Additional Health Concerns Assessment Noted Time PHQ-9 Depression Total Score: 4 09/23/2018 10:37 AM CD T documented as of this encounter Care Teams Can Labeler Relationship Specialty Start Date End Date Franco Molina M.D. PCP - General 09/25/16 07/27/19 documented as of this encounter
--- OUTSIDE RECORDS SUMMARY | 2022-02-17 12:20 | XMS_ITS | Encounter Summary ---
:1950 Author Organization [facility] Address [address] [place] [address] Care Team Providers Name Role Phone Franco Molina M.D. Primary Care Provider Reason for Referral Outpatient (Routine) - Closed Specialty Diagnoses / Procedures Referred By Contact Refer red To Contact Orthopedic Surgery Diagnoses Pain Knee Right Primary Osteoarthritis Knee Right Franco Molina M.D. [facility] [address] [address] Referral ID Status Reason Start Date Expiration Date Visits Requ ested Visits Authorized [id number] Closed 12/02/2018 12/02/2019 1 1 Scheduling Instructions Ortho internal referral panel order, kelli ging before Consult visit edication Prior Authorization (Routine) - Authorized Specialty Diagnoses / Procedures Referred By Contact Refer red To Contact Franco Molina M.D. [address], [address] [address] Referral ID Status Reason Start Date Expiration Date Visits V isits Requested Authorized [id number] Authorized 04/12/2019 Encounter Details Date Type Department Care Team Description 12/01/2018 Clinical Communication Department of [facility] Franco Molina M.D. [address] [facility] [address] [address] [place] [address] Social History Tobacco Use Types [...] Miscellaneous Notes Telephone Encounter - Amaya Trimble C.M.A. - 12/02/2018 10:44 AM CDT SUBJECTIVE CHIEF COMPLAINT / REASON FOR CALL No chief complaint on file. INFORMATION DISCUSSED Referall To Ortho PLAN Disposition/Recommendation: patient to schedule appointment and message as indicated by Dr. Molina Information: patient/caller able to repeat back in their own words Caller agreeable to plan of care: yes The following references were used: provider Dr. Molina Telephone Encounter - Franco Molina M.D. - 12/02/2018 7:53 AM CDT Please call him that he needs to see orthopedic. Order for orthopedic consultation is in EHR. He cantake Celebrex 100 mg by mouth 2 times a day as needed with food. Prescription was sent to pharmacy. Telephone Encounter - Reinier Jovanna - 12/01/2018 10:14 AM CDT INFORMATION DISCUSSED Called and spoke to Patient regarding the knee pain he has been experiencing. He stated he was in the ER last week because the pain was so bad and they told him it was Arthritis. He said the pain is effecting him the most when he is driving it is hard for him to step on the pedals . He has tried over the counter pain meds such as Ibuprofen and that does not help the pain. He stats both knees are hurting but the right knee is the worst. He would like pain medication to help with the pain. Please advise. PLAN Disposition/Recommendation: awaiting provider recommendations Information: patient/caller able to repeat back in their own words Caller agreeable to plan of care: yes The following references were used: other Patient Telephone Encounter - DakotamaryMaryam - 12/01/2018 8:42 AM CDT Reason for Communication: pt called he was at the ER last week for his right knee pain and would like a pain med for this now Current Can Nursing/Provider leave a detailed message: yes Did the patient refuse triage through Nurse line? (for symptom based concerns): na Action Needed: Please call Name of Medication (if relevant): documented in this encounter Plan of Treatment Upcoming Encounters Date Type Specialty Care Team Description 04/23/2022 Office Visit Cardiovascular Disease Blas Peck M.D. [address] [place] [phone] (Wo rk) Scheduled Referrals Name Type Priority Associated Diagnoses Order S [facility] Orthopedic Surgery Outpatient Referral Routine Pain Knee Right Expected: - Knee non surgical Primary Osteoarthriti s 12/02/2018 consult (clinic) Knee Right (Approximat e), Expires: 12/02/2021 documented as of this encounter Visit Diagnoses Diagnosis Pain Knee Right - Primary Primary Osteoarthritis Knee Right documented in this encounter Additional Health Concerns Assessment Noted Time PHQ-9 Depression Total Score: 4 09/23/2018 10:37 AM CD T documented as of this encounter Care Teams Event Planning Intern Relationship Specialty Start Date End Date Franco Molina M.D. PCP - General 09/25/16 07/27/19 documented as of this encounter
--- OUTSIDE RECORDS SUMMARY | 2022-02-17 12:20 | XMS_ITS | Encounter Summary ---
:1950 Author Organization [facility] Address [address] [place] [address] Care Team Providers Name Role Phone Franco Molian M.D. Primary Care Provider Reason for Visit Reason Comments Med Refill Encounter Details Date Type Department Care Team Description 10/25/2018 Refill Department of [facility] Torey Molina M.D. Med Refill Internal Medicine in [address] [place] [address], [facility] [address] [place] [address] [place] [address] [place] [address] Social History Tobacco Use [...] Notes Telephone Encounter - Brenda Fajardo - 10/25/2018 12:57 PM CDT Kathy needs RX for Lancets re-sent with the ICD code on it. Pended Lancets as previously prescribed and added the ICD-10 codes to it. Please approve or deny as appropriate. Thank you documented in this encounter Plan of Treatment Upcoming Encounters Date Type Specialty Care Team Description 04/23/2022 Office Visit Cardiovascular Disease Blas Peck M.D. [address] [place] [phone] (Wo rk) documented as of this encounter Visit Diagnoses Not on filedocumented in this encounter Additional Health Concerns Assessment Noted Time PHQ-9 Depression Total Score: 4 09/23/2018 10:37 AM CD T documented as of this encounter Care Teams Eastern Philosophy Professor Relationship Specialty Start Date End Date Franco Molina M.D. PCP - General 09/25/16 07/27/19 documented as of this encounter
--- OUTSIDE RECORDS SUMMARY | 2022-02-17 12:20 | XMS_ITS | Encounter Summary ---
:1950 Author Organization [facility] Address [address] [place] [address] Care Team Providers Name Role Phone Franco Molina M.D. Primary Care Provider Reason for Visit Reason Comments Med Refill Encounter Details Date Type Department Care Team Description 10/18/2018 Refill Department of [facility] Franco Molina M.D. Med Refill Medicine, [facility], in [facility] [address] [place] [address] [address] [place] [address] [facility] [phone] Social History Tobacco Use Types Packs/Day Years [...] this encounter Miscellaneous Notes Telephone Encounter - Ally Guzman LMichellePMichelleNMichelle - 10/19/2018 1:28 PM CDT Name of person contacted: Patient Relationship to patient: Not applicable Call back number:[phone] Education Dean: Not applicable Information provided: refill approved. slot machine department floorperson/patient received and understood education/information provided: Yes slot machine department floorperson/patient agreed to the Plan of Care: Yes documented in this encounter Plan of Treatment Upcoming Encounters Date Type Specialty Care Team Description 04/23/2022 Office Visit Cardiovascular Disease Blas Peck M.D. [address] [place] [phone] (Wo rk) documented as of this encounter Visit Diagnoses Not on filedocumented in this encounter Additional Health Concerns Assessment Noted Time PHQ-9 Depression Total Score: 4 09/23/2018 10:37 AM CD T documented as of this encounter Care Teams Practicing Md Anesthesiologist Relationship Specialty Start Date End Date Franco Molina M.D. PCP - General 09/25/16 07/27/19 documented as of this encounter
--- OUTSIDE RECORDS SUMMARY | 2022-02-17 12:20 | XMS_ITS | Encounter Summary ---
:1950 Author Organization [facility] Address [address] [place] [address] Care Team Providers Name Role Phone Franco Molina M.D. Primary Care Provider Reason for Visit Reason Comments Care Coordination - Follow up Encounter Details Date Type Department Care Team Description 11/18/2018 Patient Outreach Department of Michelle Taylor Laundry Room Attendant rdination - Community Internal R, R.N. Follow up Medicine in [address] [phone] Social History Tobacco Use Types [...] of this encounter Progress Notes Michelle Taylor RPapa. - 11/18/2018 11:06 AM CDT Call placed to Elvis for care coordination follow up. Left message for Elvis to return my call. documented in this encounter Plan of Treatment Upcoming Encounters Date Type Specialty Care Team Description 04/23/2022 Office Visit Cardiovascular Disease Blas Peck M.D. [address] [place], [place] [address], [place] [phone] (Wo rk) documented as of this encounter Visit Diagnoses Not on filedocumented in this encounter Additional Health Concerns Assessment Noted Time PHQ-9 Depression Total Score: 4 09/23/2018 10:37 AM CD T documented as of this encounter Care Teams Crime Analyst Relationship Specialty Start Date End Date Franco Molina M.D. PCP - General 09/25/16 07/27/19 documented as of this encounter
--- OUTSIDE RECORDS SUMMARY | 2022-02-17 12:20 | XMS_ITS | Encounter Summary ---
:1950 Author Organization [facility] Address [address] [place] [address] Care Team Providers Name Role Phone Franco Molina M.D. Primary Care Provider Reason for Visit Reason Comments Care Coordination - Follow up Encounter Details Date Type Department Care Team Description 11/24/2018 Patient Outreach Department of Michelle Taylor Mailing Specialist rdination - Community Internal R, R.N. Follow up Medicine in [address] [phone] Social History Tobacco Use [...] encounter Progress Notes Michelle Taylor RPapa. - 11/24/2018 9:09 AM CDT Call placed to Elvis for care coordination follow up. Left message for Elvis to return my call. documented in this encounter Plan of Treatment Upcoming Encounters Date Type Specialty Care Team Description 04/23/2022 Office Visit Cardiovascular Disease Blas Peck M.D. [address] [place], [place] [address], [place] [phone] (Wo rk) documented as of this encounter Visit Diagnoses Not on filedocumented in this encounter Additional Health Concerns Assessment Noted Time PHQ-9 Depression Total Score: 4 09/23/2018 10:37 AM CD T documented as of this encounter Care Teams Ground Crew Linesman Relationship Specialty Start Date End Date Franco Molina M.D. PCP - General 09/25/16 07/27/19 documented as of this encounter
--- OUTSIDE RECORDS SUMMARY | 2022-02-17 12:20 | XMS_ITS | Encounter Summary ---
:1950 Author Organization [facility] Address [address] [place] [address] Care Team Providers Name Role Phone Franco Molina M.D. Primary Care Provider Reason for Visit Reason Comments Care Coordination ( October ) Encounter Details Date Type Department Care Team Description 11/10/2018 Patient Outreach Department of [facility] [employer] rdination ( Internal Medicine in R, R.N. October ) [place], [place] [address] [place] [address] Social History Tobacco Use Types [...] Visit Cardiovascular Disease Blas Peck M.D. 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 PCP - General 09/25/16 07/27/19 documented as of this encounter
--- OUTSIDE RECORDS SUMMARY | 2022-02-17 12:20 | XMS_ITS | Encounter Summary ---
:1950 Author Organization [facility] Address [address] [place] [address] Care Team Providers Name Role Phone Franco Molina M.D. Primary Care Provider Reason for Visit Reason Comments Care Coordination - Follow up Encounter Details Date Type Department Care Team Description 10/21/2018 Patient Outreach Department of Michelle Taylor Post Anesthesia Care Unit Nurse rdination - Community Internal R, R.N. Follow up Medicine in [address] [phone] Social History Tobacco Use Types [...] encounter Progress Notes Michelle Taylor, R.N. - 10/21/2018 9:52 AM CDT SUBJECTIVE REASON FOR VISIT Follow up on Elvis Dawkins participation in the Adult Care Coordination program. HISTORY OF PRESENT ILLNESS Summary of the discussion: Elvis reports his blood sugars have been ranging from 156 to 270. He doesn't have specific numbers with him today. He tells me he has been limiting his sweets. He usually goes to [place] on Thursday and he skipped that this past week. He hasn't been walking anymore than normal. He does share he went to a [employer] game and he walked up and down a bunch of stairs. He is going to experiment the next week with walking twice outside with his walking stick. Goals Addressed This Visit's Progress Patient Stated ??? Exercise (pt-stated) No change Will walk outside 2x per week. Would like to start using his exercise bike daily. ??? COMPLETED: Weight loss (pt-stated) Patient would like to loose 24 pounds by the end of September. Other ??? Follow your action plan for Diabetes On track It is important to keep regular follow ups with your Primary Doctor. Talk with your doctor???s clinic nurse during office hours about any concerns you may have, by calling the Call Center at [phone], or calling your [employer], Michelle Taylor RN, at [phone]. If you have the online Portal, send a message to your provider regarding any concerns you may have. During non-office hours you can be directed to the ExpertRN line where a nurse can evaluate your symptoms for urgency and recommend appropriate follow up and care by calling [phone]. For medical emergencies requiring immediate attention, call 911 or proceed to your nearest emergencydepartment. The Emergency Department at [facility] is open 24 hours a day, seven [...] Discussion items for the next contact include: Exercise, blood sugars The following portions of the patient's history were updated as appropriate: education. The patient was instructed to contact the healthcare customer service with any questions or concerns and statedunderstanding of the information provided. documented in this encounter Plan of Treatment Upcoming Encounters Date Type Specialty Care Team Description 04/23/2022 Office Visit Cardiovascular Disease Blas Peck M.D. [address] [place] [phone] (Wo rk) documented as of this encounter Visit Diagnoses Not on filedocumented in this encounter Additional Health Concerns Assessment Noted Time PHQ-9 Depression Total Score: 4 09/23/2018 10:37 AM CD T documented as of this encounter Care Teams Live Source Operator Relationship Specialty Start Date End Date Franco Molina M.D. PCP - General 09/25/16 07/27/19 documented as of this encounter
--- OUTSIDE RECORDS SUMMARY | 2022-02-17 12:20 | XMS_ITS | Encounter Summary ---
:1950 Author Organization [facility] Address [address] [place] [address] Care Team Providers Name Role Phone Franco Molina M.D. Primary Care Provider Encounter Details Date Type Department Care Team Description 10/18/2018 Clinical Communication Department [facility] Franco Molina M.D. [address], [address] [address] Social History Tobacco Use Types Packs/Day [...] Telephone Encounter - Franco Molina M.D. - 10/18/2018 1:25 PM CDT I already talked to the provider from [address] ED[address] Patient will start Lantus insulin 10 units subcutaneous daily at bedtime. Prescription will be provided by ED provider. Telephone Encounter - Margo Odonnell L.P.NMichelle - 10/18/2018 1:22 PM CDT Please advise. Telephone Encounter - Marley Meek - 10/18/2018 12:31 PM CDT SAMUEL called and Dr. David would like to speak with Dr. Molina regarding this patient. Please call them back and ask for her. [phone] documented in this encounter Plan of Treatment Upcoming Encounters Date Type Specialty Care Team Description 04/23/2022 Office Visit Cardiovascular Disease Blas Peck M.D. [address] [place] [phone] (Wo ) documented as of this encounter Visit Diagnoses Not on filedocumented in this encounter Additional Health Concerns Assessment Noted Time PHQ-9 Depression Total Score: 4 09/23/2018 10:37 AM CD T documented as of this encounter Care Teams It Security Engineer Relationship Specialty Start Date End Date Franco Molina M.D. PCP - General 09/25/16 07/27/19 documented as of this encounter
--- OUTSIDE RECORDS SUMMARY | 2022-02-17 12:20 | XMS_ITS | Encounter Summary ---
:1950 Author Organization [facility] Address [address] [place] [address] Care Team Providers Name Role Phone Franco Molina M.D. Primary Care Provider Reason for Visit Reason Comments Care Coordination - Follow up Encounter Details Date Type Department Care Team Description 12/02/2018 Patient Outreach Department of Michelle Taylor rdination - Internal Medicine in R, R.N. Follow up [place], [place] [address] [address] Social History Tobacco Use Types [...] encounter Progress Notes Michelle Taylor RPapa. - 12/02/2018 10:29 AM CDT Call placed to Elvis for care coordination follow up. Elvis is unable to talk, he states he will call me back later. documented in this encounter Plan of Treatment Upcoming Encounters Date Type Specialty Care Team Description 04/23/2022 Office Visit Cardiovascular Disease Blas Peck M.D. [address] [place] [address] [place] [phone] (Wo rk) documented as of this encounter Visit Diagnoses Not on filedocumented in this encounter Additional Health Concerns Assessment Noted Time PHQ-9 Depression Total Score: 4 09/23/2018 10:37 AM CD T documented as of this encounter Care Teams Vp Ad Sales West Relationship Specialty Start Date End Date Franco Molina M.D. PCP - General 09/25/16 07/27/19 documented as of this encounter
--- OUTSIDE RECORDS SUMMARY | 2022-02-17 12:20 | XMS_ITS | Encounter Summary ---
:1950 Author Organization [facility] Address [address] [place] [address] Care Team Providers Name Role Phone Franco Molina M.D. Primary Care Provider Reason for Visit Reason Comments Follow-up 09/24/18 DM Outpatient (Routine) - Closed Specialty Diagnoses / Procedures Referred By Contact Refer red To Contact [facility] Internal Franco Molina M.D. [facility] Medicine [address] [facility], [facility] [address] [place] [address] Referral ID Status Reason Start Date Expiration Date Visits Requ ested Visits Authorized [id number] Closed 09/24/2018 09/24/2019 1 1 Encounter Details Date Type Department Care Team Description 10/25/2018 Office Visit Department of Franco Molina M.D . 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 Hyperglycemic (HCC) (Primary Dx); [facility] Internal [address] [place] Hyperten sive Heart And Chronic Kidney Disease Without Heart Failure And With Stage 2 (Mild) Chronic Kidney Disease; Medicine in [facility] [place] [address] Atherosclerotic Heart Disease Of [place] Coronary Artery Without Angina Pectoris; [place], [place] Coronary Arterial Bypass Gra ft Status Post Personal History; [address] [address] Paronychia Finger Left; [place], [place] [phone] Irritable Clarisa l Syndrome With Constipation [phone] (Fax) [phone] Social History Tobacco Use Types Packs/Day Years [...] Sign Reading Time Taken Comments Blood Pressure 114/61 10/25/2018 8:30 AM CDT Pulse 64 10/25/2018 8:30 AM CDT Temperature - - Respiratory Rate 16 10/25/2018 8:30 AM CDT Oxygen Saturation - - Inhaled Oxygen Concentration - - Weight 103 kg (226 lb 6.6 oz) 10/25/2018 8:30 AM CDT Height 172.5 cm (5' 7.91) 10/25/2018 8:30 AM CDT Body Mass Index 34.51 10/25/2018 8:30 AM CDT documented in this encounter Patient Instructions Patient InstructionsFranco Molina M.D. - 10/25/2018 8:45 AM CDT Your blood sugar levels are still high. Please increase dose of Lantus insulin. Please use Lantus insulin 15 units daily with supper. Please monitor blood sugar 3 times a day before meals. Please reschedule an appointment with electrical equipment technician. Please keep an appointment to see Endocrinology at [facility] in [place] on 12/02/2018. Return to clinic on 12/31/2018 for follow-up. documented in this encounter Progress Notes Franco Molina M.D. - 10/25/2018 8:45 AM CDT SUBJECTIVE CHIEF COMPLAINT/ REASON FOR VISIT 1. Follow-up after ED visit on 10/18/2018 HISTORY OF PRESENT ILLNESS Elvis Dawkins is a 68 y.o. male who presents to the clinic today for above complaint. He wentto [address] ED on 10/18/2018 for evaluation of abdominal pain, nausea, headache and high blood sugar levels. He was concerned about stroke and heart problem. He has uncontrolled diabetes mellitus type 2 and he does not watch calorie intake it he has chronic lower abdominal pain with irritable bowel syndrome and constipation. He also has problem with voiding difficulty and he saw some radiologist in the past. One time he was noted to have paraphimosis on my exam and he was referred to urologist. Because paraphimosis was resolved he did not have intervention. Received a phone call from Dr.Cassandra Lázaro ortega, ED physician from [address] on 10/18/2018 to discuss further evaluation and management of his symptoms. I advised to start Lantus insulin to control blood glucose level. He was discharged with Lantus insulin 10 units daily at bedtime. I reviewed record from [address] UA showed glycosuria. BMP showed sodium 133, glucose 305, creatinine 1.29 and EGFR 56. Troponin I, CBC and hepatic function panel well normal. He has been monitoring blood sugar 2 times a day at home. I reviewed the records. His blood sugars are ranging from 174-260 in the morning and 194-276 inthe evening. Sometimes he forgot to use Lantus insulin before he goes to bed. I advised him to use Lantus insulin with supper. We discussed self-management goal of diabetes mellitus type 2. He has an appointment to see box shook patcher at [facility] in [place] on 12/02/2018. He has coronary artery disease with CABG, hypertensive heart disease with congestive heart failure. He missed Car diology appointment on 10/08/2018. He needs to reschedule an appointment with electrical equipment technician. Today heis doing fine. He does not have abdominal pain. He denies nausea, vomiting or diarrhea. He still have difficulty with urination. There was no dysuria. He does not have acute complaint or concern. According to him, he stopped going to [employer] every Thursday. And he cuts back eating cookies. I reviewed and updated medical record. Medication [...] Dx:E11.9 300 strip 11 ??? blood-glucose meter [facility] Dispense glucose meter, test strips, lancing device, and lancets covered by the patient insurance. Test 3 times per day. Dx: E11.40, E11.65 1 each 0 ??? busPIRone (BUSPAR) 10 mg tablet Take 2 tablets (20 mg total) by mouth 3 (three) times a day. 540tablet 3 ??? CONTOUR TEST STRIPS strips USE [...] dinner. Stop Amaryl 180 tablet 3 ??? insulin syringe-needle U-100 0.3 mL 31 gauge x 15/64 syringe USE TO INJECT ONCE DAILY 0 ??? LANTUS U-100 INSULIN 100 unit/mL injection Inject 0.15 mL (15 Units total) under the skin daily with dinner. Dose increased on 10/25/2018 15 mL 3 ??? linaGLIPtin (TRADJENTA) 5 mg [...] SL tablet Place under the tongue. ??? PEPPERMINT OIL ORAL Take 1 capsule [...] mg by mouth daily as needed. ??? fluticasone (for_FLONASE) 50 mcg/actuation nasal spray Administer 2 sprays into each nostril daily. (Patient not taking: Reported on 10/25/2018 ) 16 g 2 ??? ipratropium (ATROVENT) 0.03 % nasal spray Administer 2 sprays into each nostril 3 (three) times a day as needed for rhinitis. (Patient not taking: Reported on 06/18/2018 ) 30 mL 2 ??? lancets Check sugar 3 times daily before meals 300 each 3 ??? oxybutynin (DITROPAN-XL) 10 mg 24 hr tablet Take 1 tablet (10 mg total) by mouth at bedtime. 90 tablet 3 No current facility-administered medications for this [...] 34.0 To 34.9 Adult 01/03/2016 ??? Callus [place] Foot 04/25/2016 ??? Congestion Nasal 01/03/2016 ??? [...] Four colon polyps. Repeat in 3 years. [facility]. ??? COLONOSCOPY W/ POLYPECTOMY 05/11/[address]/[place]. Dr. Marito davis prep, quality poor. [...] Substance and Sexual Activity ??? Alcohol use: Yes Comment: Rare ??? Drug use: No ??? Sexual activity: Defer Lifestyle ??? Physical activity: Days per week: None Minutes per session: None ??? Stress: None Relationships ??? Social connections: Talks on phone: None Gets together: None Attends congregation service: None Active member of club or organization: None Attends meetings of clubs or organizations: None Relationship status: None ??? Intimate partner violence: Fear of current or ex partner: None Emotionally abused: None Physically abused: None Forced sexual activity: None Other Topics Concern ??? None Social History Narrative ??? None Social History Substance and Sexual Activity Drug Use No Social History Substance and Sexual Activity Alcohol Use Yes Comment: Rare FAMILY HISTORY Family History Problem Relation Age of Onset ??? Deep vein thrombosis Father ??? PE - Pulmonary embolism Father ??? Hypertension Mother ??? Diabetes Mother ??? Cataracts Mother ??? Irritable bowel syndrome Mother ??? Colon cancer Mother ??? Irritable bowel syndrome Grandfather ??? Parkinson disease Sister ??? Prostate cancer Brother ??? Appendicitis Paternal Grandfather ??? Accident Brother OBJECTIVE VITAL SIGNS Vitals: 10/25/18 0830 BP: 114/61 Patient Position: Sitting Pulse: 64 Resp: 16 Height: 172.5 cm Weight: 103 kg PHYSICAL EXAMINATION General: Obese. Patient is sitting. No distress. Able to talk without interruption. Skin: No rash, bruise or nodules. Head: No facial rash, asymmetry or sinus [...] clubbing, cyanosis, edema, infection or calf tenderness. Mental: Alert and oriented x 3. Normal mood and affect. Neuro: Grossly nonfocal exam. ASSESSMENT / PLAN #1 Diabetes Mellitus Type 2 With Diabetic Neuropathy Hyperglycemic (HCC) Diabetes mellitus is not controlled. Recent hemoglobin A1c was 9.3 on 09/22/2018. I reviewed his blood glucose levels. We discussed self-management goal of diabetes mellitus. It was decided to increaseLantus insulin dose. He will use Lantus insulin 15 units subcutaneous daily with dinner. I sent a new prescription to pharmacy. Advised him to monitor blood sugar 3 times a day before meals. He will continue ADA diet, regular exercise and lifestyle modification. Today his Body mass index is 34.51 kg/m??. He needs to lose weight. Will repeat hemoglobin A1c in December 2018. Advised him to keep an appointment to see box shook patcher at [facility] in [place] on 12/02/2018. He needs to see eye doctor once [...] current medication and cardiovascular risk factor modification. He will reschedule follow-up appointment with Cardiology. #5 Paronychia Finger Left It is resolved. #6 Irritable Bowel Syndrome With Constipation He feels fine. He needs to watch what he eats. There is no acute abdomen clinically. #7 Renew Medications The following medications were renewed: Lantus insulin. #8 Discussed Test Results I reviewed test results from [address] ED visit from 10/18/2018. All questions were answered. #9 Follow-up Visit Advised him to reschedule an appointment with Cardiology. Advised him to keep an appointment with endocrinology at [facility] in [place] on 12/02/2018. Return to the clinic as previously scheduled on 12/31/2018. ADMINISTRATIVE BILLING 25 minutes of this 35 minute visit was spent in face to face counseling and coordination of care. documented in this encounter Plan of Treatment Upcoming Encounters Date Type Specialty Care Team Description 04/23/2022 Office Visit Cardiovascular Disease Blas Peck M.D. 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 Hyperglycemic (HCC) - Primary Hypertensive Heart And Chronic Kidney Di sease Without Heart Failure And With Stage 2 (Mild) Chronic Kidney Disease Atherosclerotic Heart Disease Of [place] Coronary Artery Without Angina Pectoris Coronary Arterial Bypass Graft Status Po st Personal History Paronychia Finger Left Irritable Bowel Syndrome With Constipati on documented in this encounter Additional Health Concerns Assessment Noted Time PHQ-9 Depression Total Score: 4 09/23/2018 10:37 AM CD T documented as of this encounter Care Teams Nursing Service Administrator Relationship Specialty Start Date End Date Franco Molina M.D. PCP - General 09/25/16 07/27/19 documented as of this encounter
--- OUTSIDE RECORDS SUMMARY | 2022-02-17 12:20 | XMS_ITS | Encounter Summary ---
:1950 Author Organization [facility] Address [address] [place] [address] Care Team Providers Name Role Phone Franco Molina M.D. Primary Care Provider Reason for Referral Outpatient (Routine) - Closed Specialty Diagnoses / Procedures Referred By Contact Refer red To Contact Urology Sabrina Valadez APRN, C.N.P. [facility] [address] [phone] Referral ID Status Reason Start Date Expiration Date Visits Requ ested Visits Authorized [id number] Closed 11/08/2018 11/08/2019 1 1 Reason for Visit Reason Comments Other BPH with obstruction Outpatient (Routine) - Closed Specialty Diagnoses / Procedures Referred By Contact Refer red To Contact Urology Diagnoses Benign Prostatic Hyperplasia Hypertrophy With Obstruction Franco Molina M.D. [facility] Region [address] [facility] [address] [place] [address] Referral ID Status Reason Start Date Expiration Date Visits Requ ested Visits Authorized [id number] Closed 10/28/2018 10/28/2019 1 1 Encounter Details Date Type Department Care Team Description 11/08/2018 Comprehensive Visit Department of Sabrina Valadez (Primary Dx); Urology in [place]AN Vu, C.N.P. Benign Prostatic Hyperplasia Hypertrophy With Obstruction [facility] [address] [address] MARQUEZ MENDOSA [phone] (Work) [phone] Social History Tobacco Use Types Packs/Day Years [...] Sign Reading Time Taken Comments Blood Pressure 117/63 11/08/2018 8:07 AM CDT Pulse 72 11/08/2018 8:07 AM CDT Temperature 37.2 ??C (99 ??F) 11/08/2018 8:07 AM CDT Respiratory Rate - - Oxygen Saturation - - Inhaled Oxygen Concentration - - Weight - - Height - - Body Mass Index - - documented in this encounter Progress Notes Sabrina Valadez, BRIAN, C.N.P. - 11/08/2018 8:30 AM CDT SUBJECTIVE CHIEF COMPLAINT/REASON FOR VISIT BPH with LUTS HISTORY OF PRESENT ILLNESS Elvis is a pleasant 68 year old male here today for a follow-up of urinary issues. He has a history of Benign Prostatic Hypertrophy with lower urinary tract symptoms, urinary urgency, prostatitis. He takes oxybutynin 10 mg XL daily and tamsulosin 0.4 mg oral capsule daily. He has also started taking insulin for his uncontrolled diabetes. Please see Review of Systems below for further details. AUASS Total Symptom score: 24 /35 Total Problems due to symptoms score: 2028 Total Quality of Life score: 03/31 Urology AUA total: 56/82 The following portions of the patient's history were reviewed and updated as appropriate: allergies,current medications, family history, medical history, social history, surgical history and problem list. REVIEW OF SYSTEMS Gastrointestinal: Negative for constipation. Genitourinary: His blood sugar was 83 over the weekend and he felt very shaky, took a piece of candy and felt better. Blood sugars have been better now that he is on insulin. Checks blood sugar 2 times daily. Mild pain under testicles and scrotum, similar to prostatitis. Feels numb. Stream is thin, starts and stops, low pressure. Penis swells during the night (not an erection) which makes stream slow. Drinks cup of coffee, occasional can of pop, 2-4 bottles of water. Gets up 1-2 times at night to void, was getting up 4 times at night. OBJECTIVE Vitals: 11/08/18 0807 BP: 117/63 Patient Position: Sitting Pulse: 72 Temp: 37.2 ??C TempSrc: Temporal PHYSICAL EXAM Vitals and nursing [...] descended bilaterally with no masses or tenderness. PROSTATE: Perianal area intact without lesions orvisible hemorrhoids. No fissures or fistulas. Good sphincter tone, no masses. Prostate is symmetrical, smooth, boggy, non-enlarged, tender and without nodules. Seminal vesicles are non-palpable. Approximate size is 30 grams. Extremities: Warm, without edema or ulcerations. Musculoskeletal: Whitney is symmetrical and balanced. DIAGNOSTIC Postvoid residual by bladder scan 12 mL. ASSESSMENT / PLAN #1 Benign Prostatic Hyperplasia Hypertrophy With Obstruction #2 Prostatitis He is encouraged to continue monitoring his blood glucose levels is this will help with urinary symptoms as well. A prescription for levofloxacin 500 mg oral tablet, 1 tablet daily for 21 days is sent to his pharmacy. I would like to see him again in clinic in approximately 1 month for a recheck of lower urinary tract symptoms. If he has issues prior to that time, he should contact us. All of his questions are answered today and he is in agreement with this plan. Signed by: Sabrina Valadez APRN, C.N.P. 11/08/2018 8:06 AM documented in this encounter Plan of Treatment Upcoming Encounters Date Type Specialty Care Team Description 04/23/2022 Office Visit Cardiovascular Disease Blas Peck M.D. [address] [place] [phone] (Wo rk) Scheduled Referrals Name Type Priority Associated Diagnoses Order [facility] Urology office Outpatient Referral Routine Expect ed: visit (clinic) 12/09/2018 (Approximate), Expires: 11/08/2021 documented as of this encounter Visit Diagnoses Diagnosis Prostatitis - Primary Benign Prostatic Hyperplasia Hypertrophy With Obstruction documented in this encounter Additional Health Concerns Assessment Noted Time PHQ-9 Depression Total Score: 4 09/23/2018 10:37 AM CD T documented as of this encounter Care Teams Pedicurist Relationship Specialty Start Date End Date Franco Molina M.D. PCP - General 09/25/16 07/27/19 documented as of this encounter
--- OUTSIDE RECORDS SUMMARY | 2022-02-17 12:21 | XMS_ITS | Encounter Summary ---
:1950 Author Organization [facility] Address [address] [place] [address] Care Team Providers Name Role Phone Franco Molina M.D. Primary Care Provider Reason for Visit Reason Comments Medicare Annual Wellness Visit Subsequent Outpatient (Routine) - Closed Specialty Diagnoses / Procedures Referred By Contact Refer red To Contact Family Medicine Diagnoses Annual Medicare Examination Return Franco Molina M.D. [facility] [address] [facility], [facility] [address] [place] [address] Referral ID Status Reason Start Date Expiration Date Visits Requ ested Visits Authorized [id number] Closed 08/06/2018 08/06/2019 1 1 Encounter Details Date Type Department Care Team Description 08/11/2018 Office Visit Department of Family Franco Molina M.D. [address] [facility], [facility] [address] [place] [address] [facility] Bridget Benavides, R.N. Examination Return Clinic, in [address] [phone] Social History Tobacco Use Types Packs/Day Years Used Date Smoking Tobacco: Every Day Pipe Smokeless Tobacco: Never Alcohol Use Standard [...] Sign Reading Time Taken Comments Blood Pressure 128/84 08/11/2018 9:11 AM CDT Pulse 68 08/11/2018 9:11 AM CDT Temperature - - Respiratory Rate 12 08/11/2018 9:11 AM CDT Oxygen Saturation - - Inhaled Oxygen Concentration - - Weight 102 kg (224 lb 1.6 oz) 08/11/2018 9:11 AM CDT Height 172.5 cm (5' 7.91) 08/11/2018 9:11 AM CDT Body Mass Index 34.16 08/11/2018 9:11 AM CDT documented in this encounter Patient Instructions Patient InstructionsBridget Benavides R.N. - 08/11/2018 9:30 AM CDT Treatment plan: Maintain well-balanced and active lifestyle. Recommendations: Follow up with RN in 1 year for Annual Wellness visit. Request will be sent to Dr. Molina regarding the need for a new glucose meter. Contact pharmacy and insurance if you change your mind about the Shingrix vaccine. Also talk to Dr. Molina regarding AAA screen if you change your mind. Upto date on all other health maintenance items. Provider follow up appt: As needed. documented in this encounter Progress Notes Bridget Benavides R.N. - 08/11/2018 9:30 AM CDT HEALTH ASSESSMENT SUBJECTIVE REASON FOR VISIT: Subsequent Annual Wellness Visit REVIEW OF SYSTEMS: Patient reported pain symptoms: Yes Injury: Do you always fasten your seat belt when you are in a car? Yes Cardiovascular: none Respiratory:dyspnea on exertion Known ОЛЬГА: Patient diagnosed with ОЛЬГА; DOES NOT USE sleep machine Gastrointestinal symptoms: Cramping, Flatulence and Date of last bowel movement: 08/11/18 Genitourinary symptoms: dysuria Musculoskeletal symptoms: arthritis and muscular weakness Skin symptoms: negative Neurological symptoms: negative Laceration/Wound: None Eye symptoms: Other: Cataracts- uses reading glasses Visual acuity: Without correction, Vision screening - Date of last exam: 12/2017 and Gaucoma screen was completed at last eye exam: yes Ear symptoms: Other: None Nose symptoms: Other: None LANGUAGES: Indonesian VITALS: BP 128/84 (BP Location: Left arm, Patient Position: Sitting, Cuff Size: Regular) Pulse 68 Resp 12 Ht 172.5 cm Wt 102 kg BMI 34.16 kg/m?? ALLERGIES: Allergies Allergen Reactions ??? Sertraline Other (see comments) ??? Sulfamethoxazole-Trimethoprim Swelling MEDICATION MANAGEMENT: How do you set up your medications? Without help On how may days over the past week did you forget to take 1 or more medications as prescribed? 0 Current Outpatient Prescriptions Medication Sig Dispense Refill ??? aspirin 81 mg chewable tablet Chew 1 tablet daily. ??? blood sugar diagnostic (glucose blood) strips 1 test daily. Use to test blood sugar daily. Whatever is covered by insurance. Dx:E11.9 100 strip 11 ??? blood-glucose meter [facility] Dispense glucose meter, test strips and lancets covered by the patient insurance. Test 2 times per day. ??? busPIRone (BUSPAR) 10 mg tablet Take 2 tablets (20 mg total) by mouth 3 (three) times a day. 540tablet 3 ??? CONTOUR TEST STRIPS strips USE ONE STRIP TO CHECK GLUCOSE ONCE DAILY BEFORE BREAKFAST 100 strip 4 ??? FLUoxetine (PROzac) 40 mg capsule Take 1 capsule (40 mg total) by mouth every morning. 90 capsule 3 ??? glimepiride (AMARYL) 4 mg tablet Take 2 tablets (8 mg total) by mouth daily with breakfast. 180 tablet 3 ??? linagliptin (TRADJENTA) 5 mg tablet Take 1 tablet [...] (five) minutes as needed for chest pain. Up to 3 doses & call 911 25 tablet 11 ??? oxybutynin (DITROPAN-XL) 10 mg 24 hr tablet Take 1 tablet (10 mg total) by mouth at bedtime. 90 tablet 3 ??? polyethylene glycol (for_MIRALAX) 17 gram [...] by mouth daily. 90 capsule 3 ??? atorvastatin (LIPITOR) 20 mg tablet Take 1 tablet (20 mg total) by mouth at bedtime. 90 tablet 3 ??? docusate sodium (for_COLACE) 100 mg capsule Take 100 mg by mouth daily as needed. ??? fluticasone (for_FLONASE) 50 mcg/actuation nasal spray Administer 2 sprays into each nostril daily. (Patient not taking: Reported on 06/18/2018 ) 16 g 2 ??? ipratropium (ATROVENT) 0.03 % nasal spray Administer 2 sprays into each nostril 3 (three) times a day as needed for rhinitis. (Patient not taking: Reported on 06/18/2018 ) 30 mL 2 ??? PEPPERMINT OIL ORAL Take 1 capsule by mouth daily. No current facility-administered medications for this visit. HISTORY: Past Medical History: Diagnosis Date ??? Anxiety 01/03/2016 ??? Apnea Sleep Obstructive 08/28/2016 ??? Benign Prostatic Hyperplasia Hypertrophy With Obstruction 01/03/2016 ??? Body Mass Index 34.0 To 34.9 Adult 01/03/2016 ??? Callus Schwertner Foot 04/25/2016 ??? Congestion Nasal 01/03/2016 ??? [...] Spasm Bladder 03/26/2016 ??? Urgency Urinary 05/28/2017 Past Surgical History: Procedure Laterality Date ??? CHOLECYSTECTOMY ??? COLON BIOPSY 06/28/2018 Adenomatous colonic polyps with Dr. Colby tidwell advised for 3 years ??? COLONOSCOPY 07/27/2015 Four colon polyps. Repeat in 3 years. [facility]. ??? COLONOSCOPY W/ POLYPECTOMY 05/11/[address]/[place]. Dr. Marito davis prep, quality poor. Repeat in 1yr due to poor prep. ??? CORONARY ARTERY BYPASS GRAFTS X 4 05/28/2014 ??? INGUINAL HERNIA REPAIR Bilateral Family History Problem Relation Age of Onset ??? Deep vein thrombosis Father ??? PE - Pulmonary embolism Father ??? Hypertension Mother ??? Diabetes Mother ??? Cataracts Mother ??? Irritable bowel syndrome Mother ??? Colon cancer Mother ??? Irritable bowel syndrome Grandfather ??? Parkinson disease Sister ??? Prostate cancer Brother ??? Appendicitis Paternal Grandfather ??? Accident Brother DEPENDENT HABITS: Social History Substance Use Topics ??? Smoking status: Current Every Day Smoker Types: Pipe ??? Smokeless tobacco: Never Used ??? 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 PHQ-2 PHQ-2 Score: 2 PHQ-9 PHQ-9 Total Score (max 27): 5 Mini Cog Mini Cognitive Exam Mini Cog Exam Comment: Patient declined to complete exam NUTRITION: Perception of body size: Too fat Nutrition risk factors by history: None Home diet: Regular Meal pattern: Breakfast everyday or most days, 2-3 meals per day and Snack between meals routinely Feeding ability: Complete independence Eating difficulties:None Appetite: Fair Nutritional Plan: Limit dietary fat/cholesterol EXERCISE: no regular exercise FUNCTIONAL/HOME ENVIRONMENT History of falls: Fall Risk Scale Have you fallen in the last year?: No Home Environment note: Lives in an apartment. No pets. Living situation: Lives alone Current daily living assistance: None and Snap Program Home equipment: Blood glucose monitor and Other: Walking stick for long distances and nighttime walking Mobility assistance: Independent Gait: Steady History of falls: None; Home Environment Note: Railings on all stairways. Has working carbon monoxide detectors and smoke dectectors. Has fire extinguisher in the hallway. No firearms in the apartment.No small rugs in the apartment. Does not have a lifeline but carries cellphone on him at all times. States he does have a string in the bedroom and bathroom that he is able to pull if he needs too. Sensory Deficits: None Recent Visual Changes: None Corrective Devices: None Vision, hearing, mobility adequate to meet safety needs: yes; Safety Comment: No saftey concerns Current home treatments: Blood glucose monitoring Special Services and Community Resources: Other: Snap benefits Professional services: None Suppliers: Kathy Timed Up and Go Test: Timed Up and Go (TUG): 10 ADVANCE DIRECTIVE: No Advance Directive declined and Comment: Patient states that he does not plan to fill one out but will take the information. Goals ??? Exercise (pt-stated) Would like to start using his exercise bike daily. ??? Follow your action plan for Diabetes It is important to keep regular follow ups with your Primary Doctor. Talk with your doctor???s clinic nurse during office hours about any concerns you may have, by calling the Call Center at [phone], or calling your Fur Vault Attendant, Michelle Li RN, at [phone]. If you have the online Portal, send a message to your provider regarding any concerns you may have. During non-office hours you can be directed to the ExpertRN line where a nurse can evaluate your symptoms for urgency and recommend appropriate follow up and care by calling [phone]. For medical emergencies requiring immediate attention, call 911 or proceed to your nearest emergencydepartment. The Emergency Department at [facility] is open 24 hours a day, [...] or rapid breathing. ??? Use Emergency plan Emergency Care: Hypoglycemia Seek Emergency care for [...] rapid breathing. ??? Use Sick day plan Sick Day Guidelines Illness places stress on [...] unable to follow these sick day guidelines. ??? Weight loss (pt-stated) Patient would like to loose 24 pounds by the end of September. Treatment plan: Maintain well-balanced and active lifestyle. Recommendations: Follow up with RN in 1 year for Annual Wellness visit. Request will be sent to Dr. Molina regarding the need for a new glucose meter. Contact pharmacy and insurance if you change your mind about the Shingrix vaccine. Also talk to Dr. Molina regarding AAA screen if you change your mind. Upto date on all other health maintenance items. Provider follow up appt: As needed. After Visit Summary (AVS) reviewed and provided to patient via printed copy/or portal: Yes Provider notified: Yes Date: 08/11/18 Bridget Benavides R.N. documented in this encounter Plan of Treatment Upcoming Encounters Date Type Specialty Care Team Description 04/23/2022 Office Visit Cardiovascular Disease Blas Peck M.D. [address] [place] [phone] (Wo rk) documented as of this encounter Visit Diagnoses Diagnosis Annual Medicare Examination Return documented in this encounter Additional Health Concerns Assessment Noted Time PHQ-9 Depression Total Score: 5 08/11/2018 9:14 AM CDT documented as of this encounter Care Teams Cook [place]onnaise Relationship Specialty Start Date End Date Franco Molina M.D. PCP - General 09/25/16 07/27/19 documented as of this encounter
--- OUTSIDE RECORDS SUMMARY | 2022-02-17 12:21 | XMS_ITS | Encounter Summary ---
:1950 Author Organization [facility] Address [address] [place] [address] Care Team Providers Name Role Phone Franco Molina M.D. Primary Care Provider Encounter Details Date Type Department Care Team Description 09/22/2018 Hospital Encounter Department of Franco Molina, Diabetes Mellitus Laboratory Medicine MAngela Type 2 With Diabetic in [place] [address] [place] [facility] [address] Hyperglycemic (HCC) [address] [place] [phone] Social History Tobacco Use Types Packs/Day Years [...] Sig Dispensed Refills Start Date End Date CONTOUR TEST STRIPS USE ONE STRIP TO 100 strip 4 11/13/2017 strips CHECK GLUCOSE ONCE DAILY BEFORE BREAKFAST polyethylene glycol Take 17 g by mouth 0 08/29/19 17 (for_MIRALAX) 17 gram daily. powder packet PSYLLIUM HUSK (METAMUCIL Take 1.7 g by mouth 0 ORAL) at bedtime. aspirin 81 mg chewable Chew 1 tablet daily. 0 07/09/2020 tablet atorvastatin (LIPITOR) Take 1 tablet (20 mg 90 tablet 3 10/201808/24/2019 20 mg tablet total) by mouth at bedtime. blood sugar diagnostic 1 test daily. Use to 100 strip 11 06/201710/25/2018 (glucose blood) strips test blood sugar daily. Whatever is covered by insurance. Dx:E11.9 blood-glucose meter [facility] Dispense glucose 1 each 0 08/1210/25/2018 meter, test strips, lancing device, and lancets covered by the patient insurance. Test 2 times per day. Dx: E11.40, E11.65 busPIRone (BUSPAR) 10 mg Take 2 tablets (20 540 tablet 3 11/201807/04/2019 tablet mg total) by mouth 3 (three) times a day. docusate sodium Take 100 mg by mouth 0 06/13/2019 (for_COLACE) 100 mg daily as needed. capsule FLUoxetine (PROzac) 40 Take 1 capsule (40 90 capsule 3 12/1009/24/2018 mg capsule mg total) by mouth every morning. FLUoxetine (PROzac) 40 Take 1 capsule (40 90 capsule 3 08/2408/24/2019 mg capsule mg total) by mouth every morning. fluticasone Administer 2 sprays 16 g 2 06/22/201711/11 (for_FLONASE) 50 into each nostril mcg/actuation nasal daily. sprayIndications: Sinusitis Acute glimepiride (AMARYL) 4 Take 2 tablets (8 mg 180 tablet 3 09/24/2018 mg tablet total) by mouth daily with breakfast. ipratropium (ATROVENT) Administer 2 sprays 30 mL 2 06/1111/22/2018 0.03 % nasal into each nostril 3 sprayIndications: (three) times a day Sinusitis Acute as needed for rhinitis. linagliptin (TRADJENTA) Take 1 tablet (5 mg 90 tablet 3 10/18/2018 5 mg tablet total) by mouth daily. [...] tablet (10 mg 90 tablet 3 0 10/16/2017 10/29/2018 10 mg 24 hr tablet total) by mouth at bedtime. PEPPERMINT OIL ORAL Take 1 capsule by 0 07/09/2020 mouth as needed. raNITIdine (ZANTAC) 150 Take 1 tablet (150 180 tablet 3 08/1203/11/2019 mg tablet mg total) by mouth 2 (two) times a day. tamsulosin (FLOMAX) 0.4 Take 1 capsule (0.4 90 capsule 3 12/20/2018 mg 24 hr capsule mg total) by mouth daily. documented as of this encounter Plan of Treatment Upcoming Encounters Date Type Specialty Care Team Description 04/23/2022 Office Visit Cardiovascular Disease Blas Peck M.D. [address] [place] [phone] (Wo rk) documented as of this encounter Procedures Procedure Name Priority Date/Time Associated Diagnosis Comme nts ALBUMIN, RANDOM, U Routine 09/22/2018 10:11 Diabetes Mellitus Type Results for this AM CDT 2 With Diabetic procedure ar e in Neuropathy the results Hyperglycemic (HCC) section. documented in this encounter Results Microalbumin, Random, Urine (09/22/2018 10:11 AM CDT) P athologist Signature Microalbumin 9.0 mg/L 09/22/2018 1:55 PM CDT Creatinine 103 mg/dL 09/22/2018 1:55 PM CDT Albumin/Creatinin 9 <17 mg/g 09/22/2018 e Ratio 1:55 PM CDT Specimen Anatomical Collection Method Collection Time Receive d Time (Source) Location / / Volume Laterality Urine (Urine, 09/22/2018 10:11 09/22/2018 1:08 Clean Catch) AM CDT PM CDT Franco Molina M.D. LAB URINE ORDERABLES Performing Organization Address City/State/ZIP Code Phon e Number [facility] [address] [place] [address] LAB documented in this encounter Visit Diagnoses Diagnosis 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 Hyperglycemic (HCC) documented in this encounter Additional Health Concerns Assessment Noted Time PHQ-9 Depression Total Score: 5 08/11/2018 9:14 AM CDT documented as of this encounter Care Teams Physician Gynecologist Relationship Specialty Start Date End Date Franco Molina M.D. PCP - General 09/25/16 07/27/19 documented as of this encounter
--- OUTSIDE RECORDS SUMMARY | 2022-02-17 12:21 | XMS_ITS | Encounter Summary ---
:1950 Author Organization [facility] Address [address] [place] [address] Care Team Providers Name Role Phone Franco Molina M.D. Primary Care Provider Reason for Visit Reason Comments Care Coordination - Follow up Encounter Details Date Type Department Care Team Description 08/19/2018 Patient Outreach Department of Michelle Taylor Fun House Attendant rdination - Community Internal R, R.N. Follow up Medicine in [address] [phone] Social History Tobacco Use Types [...] of this encounter Progress Notes Michelle Taylor RMichelleN. - 08/19/2018 1:20 PM CDT Call placed to Elvis for care coordination follow up. Left message that I would call Elvis next . documented in this encounter Plan of Treatment Upcoming Encounters Date Type Specialty Care Team Description 04/23/2022 Office Visit Cardiovascular Disease Blas Peck M.D. [address] [place] [address] [place]QUEZ Owen [phone] (Wo rk) documented as of this encounter Visit Diagnoses Not on filedocumented in this encounter Additional Health Concerns Assessment Noted Time PHQ-9 Depression Total Score: 5 08/11/2018 9:14 AM CDT documented as of this encounter Care Teams Bundle Person Relationship Specialty Start Date End Date Franco Molina M.D. PCP - General 09/25/16 07/27/19 documented as of this encounter
--- OUTSIDE RECORDS SUMMARY | 2022-02-17 12:21 | XMS_ITS | Encounter Summary ---
:1950 Author Organization [facility] Address [address] [place] [address] Care Team Providers Name Role Phone Franco Molina M.D. Primary Care Provider Reason for Visit Reason Comments Care Coordination - Systematic Case Review Encounter Details Date Type Department Care Team Description 07/23/2018 Patient Outreach Department of Michelle Taylor Educational Paraprofessional rdination - Community Internal R, R.NMichelle Systemati c Case Medicine in Review [address] [phone] Social History Tobacco Use Types Packs/Day Years Used Date Smoking Tobacco: Every Day Pipe Smokeless Tobacco: Never Alcohol Use Standard Drinks/Week Comments No 0 (1 standard drink = 0.6 oz [...] encounter Progress Notes Michelle Taylor, R.N. - 07/23/2018 2:18 PM CDT Admission Date: 04/22/2018 Admission Goal: A1c less than 7.5% Two Chronic Conditions: Patient Active Problem List Diagnosis ??? 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 Coronary Artery Disease [place] ??? Anxiety ??? Apnea Sleep Obstructive ??? Body Mass Index 34.0 To 34.9 Adult ??? Callus Patten Foot ??? Constipation ??? Congestion Nasal ??? [...] Adult ??? Polyp Colon Adenomatous Personal History Last SCR: 06/28/2018 Next Contact: 07/29/2018 ED/Hospitalizations Since Admission: 0 The patient was reviewed in SCR today. SCR team recommends Continue plan of care. Recommendations from Psychiatry (Dr. Bart Rai) and [...] Visit Cardiovascular Disease Blas Peck M.D. [address] [place] [phone] (Wo rk) documented as of this encounter Visit Diagnoses Not on filedocumented in this encounter Additional Health Concerns Assessment Noted Time PHQ-9 Depression Total Score: 7 04/01/2018 1:32 PM FURNACE COMBUSTION ANALYST documented as of this encounter Care Teams Terminal Manager Relationship Specialty Start Date End Date Franco Molina M.D. PCP - General 09/25/16 07/27/19 documented as of this encounter
--- OUTSIDE RECORDS SUMMARY | 2022-02-17 12:21 | XMS_ITS | Encounter Summary ---
:1950 Author Organization [facility] Address [address] [place] [address] Care Team Providers Name Role Phone Franco Molina M.D. Primary Care Provider Reason for Visit Reason Comments Care Coordination ( September ) Encounter Details Date Type Department Care Team Description 10/10/2018 Patient Outreach Department of [facility] Torch Heater rdination ( [facility] Internal R, R.N. September ) Medicine in [place], [place] [address] [place] [phone] Social History Tobacco Use Types [...] Visit Cardiovascular Disease Blas Peck M.D. [address] [place], [place] [phone] (Wo rk) documented as [...] documented as of this encounter Care Teams Architect Internship Relationship Specialty Start Date End Date Franco Molina M.D. PCP - General 09/25/16 07/27/19 documented as of this encounter
--- OUTSIDE RECORDS SUMMARY | 2022-02-17 12:21 | XMS_ITS | Encounter Summary ---
:1950 Author Organization [facility] Address [address] [place] [address] Care Team Providers Name Role Phone Franco Molina M.D. Primary Care Provider Reason for Visit Reason Comments Med Refill Encounter Details Date Type Department Care Team Description 08/11/2018 Refill Department of Family Medicine, Bridget Jiang, R.N. Med Refill [place], in [address] [phone] Social History Tobacco Use Types Packs/Day [...] encounter Miscellaneous Notes Telephone Encounter - Bridget Benavides, R.N. - 08/11/2018 4:13 PM CDT SUBJECTIVE CHIEF COMPLAINT / REASON FOR CALL Med Refill Patient is requesting the following information: Prescription for new glucose meter. PLAN The following information was provided: Patient was notified that Dr. Molina sent the prescription for a new glucose meter to [facility]. Education: patient/caller able to teach back The following references were used: provider Dr. Molina Telephone Encounter - Bridget Benavides R.N. - 08/11/2018 10:35 AM CDT Patient was in for Medicare Annual Wellness visit and stated that his lancing device is broken. The button on the lancing device does not work and patient is unable to use it properly. Patient is requesting a new glucose meter. Please advise. documented in this encounter Plan of Treatment Upcoming Encounters Date Type Specialty Care Team Description 04/23/2022 Office Visit Cardiovascular Disease Blas Peck M.D. [address] [place] [phone] (Wo rk) documented as of this encounter Visit Diagnoses Not on filedocumented in this encounter Additional Health Concerns Assessment Noted Time PHQ-9 Depression Total Score: 5 08/11/2018 9:14 AM CDT documented as of this encounter Care Teams Follow Up Clerk Relationship Specialty Start Date End Date Franco Molina M.D. PCP - General 09/25/16 07/27/19 documented as of this encounter
--- OUTSIDE RECORDS SUMMARY | 2022-02-17 12:21 | XMS_ITS | Encounter Summary ---
:1950 Author Organization [facility] Address [address] [place] [address] Care Team Providers Name Role Phone Franco Molina M.D. Primary Care Provider Reason for Visit Reason Comments Care Coordination - Follow up Encounter Details Date Type Department Care Team Description 09/23/2018 Patient Outreach Department of Michelle Taylor Coke Oven Mason rdination - [facility] Internal R, R.N. Follow up Medicine in [address] [id number] Social History Tobacco Use Types [...] encounter Progress Notes Michelle Taylor, R.N. - 09/23/2018 10:30 AM CDT SUBJECTIVE Elvis shares his blood sugars have been running anywhere from 170 - 382. When asked about his diet he tells me I will never tell. REASON FOR VISIT: Adult Care Coordination Six Month Assessment Medication Management: Current medication list was reviewed and updated as appropriate. Tell me about how you usually take your medications: Takes directly from the bottle. Are there times you don???t take your medications? No Is it hard for you to pay for your medications? YES /NO: No Global Health: Promis 10 Patient Outreach from 03/30/2018 in Department of Family Medicine in [place], [place] Charting Type Initial Assessment [id number] Physical Health Raw Score 13 Behavioral Health: PHQ9 Score 04/01/2018 08/11/2018 09/23/2018 PHQ-9 Total Score (max 27) 7 5 4 GAD7 Score 04/01/2018 09/23/2018 BONI-7 Total Score (max 21) 6 5 Physical Functioning/Personal Safety: During the last three months, have you had a fall? No ASSESSMENT/PLAN Patient???s primary goals/concerns: Would like to work on his blood sugars. He would like to wait tosee what his follow-up appointment brings tomorrow. Nurse???s Primary goals/concerns: A1c less than 7.5 % Goals Addressed This Visit's Progress Patient Stated ??? Exercise (pt-stated) No change Would like to start using his exercise bike daily. ??? Weight loss (pt-stated) No change Patient would like to loose 24 pounds by the end of September. Other ??? Follow your action plan for Diabetes On track It is important to keep regular follow ups with your Primary Doctor. Talk with your doctor???s clinic nurse during office hours about any concerns you may have, by calling the Call Center at [phone], or calling your Clinical Psychologist Licensed, Michelle Taylor RN, at [phone]. If you have the online Portal, send a message to your provider regarding any concerns you may have. During non-office hours you can be directed to the ExpertRN line where a nurse can evaluate your symptoms for urgency and recommend appropriate follow up and care by calling [phone]. For medical emergencies requiring immediate attention, call 911 or proceed to your nearest emergencydepartment. The Emergency Department at [facility] is open 24 hours a [...] unable to follow these sick day guidelines. Next contact: 7 day(s) by Phone Call Discussion items for the next contact include: Appointment recommendations. The patient was instructed to contact the doggy daycare activities director with any questions or concerns and statedunderstanding of the information provided. documented in this encounter Plan of Treatment Upcoming Encounters Date Type Specialty Care Team Description 04/23/2022 Office Visit Cardiovascular Disease Blas Peck M.D. [address] [place] [phone] (Wo rk) documented as of this encounter Visit Diagnoses Not on filedocumented in this encounter Additional Health Concerns Assessment Noted Time PHQ-9 Depression Total Score: 4 09/23/2018 10:37 AM CD T documented as of this encounter Care Teams Bench Molder Relationship Specialty Start Date End Date Franco Molina M.D. PCP - General 09/25/16 07/27/19 documented as of this encounter
--- OUTSIDE RECORDS SUMMARY | 2022-02-17 12:21 | XMS_ITS | Encounter Summary ---
:1950 Author Organization [facility] Address [address] [place] [address] Care Team Providers Name Role Phone Franco Molina M.D. Primary Care Provider Reason for Visit Reason Comments Care Coordination - Follow up Encounter Details Date Type Department Care Team Description 07/23/2018 Patient Outreach Department of Michelle Taylor Bow Repairer Custom rdination - Community Internal R, R.N. Follow up Medicine in [address] [phone] Social History Tobacco Use Types [...] Progress Notes Michelle Taylor, R.N. - 07/23/2018 10:36 AM CDT SUBJECTIVE REASON FOR VISIT Follow up on Elvis Dawkins participation in the Adult Care Coordination program. HISTORY OF PRESENT ILLNESS Summary of the discussion: Elvis tells me he has a blood sugars of 322 and 186. He states he has been busy watching his grandkids. When asked about his diet, he tells me it's a secret. He will try and have more blood sugar readings next week. He shares that he has not yet had time to obtain his stool sample. He is hoping to have it Thursday morning. Goals Addressed Most Recent Patient Stated ??? Exercise (pt-stated) On track (07/23/2018) Would like to start using his exercise bike daily. ??? Weight loss (pt-stated) On track (07/23/2018) Patient would like to loose 24 pounds by the end september. Other ??? Follow your action plan for Diabetes On track (07/23/2018) It is important to keep regular follow ups with your Primary Doctor. Talk with your doctor???s clinic nurse during office hours about any concerns you may have, by calling the Call Center at [phone], or calling your Academic Intern, Michelle Taylor RN, at [phone]. If you have the online Portal, send a message to your provider regarding any concerns you may have. During non-office hours you can be directed to the ExpertRN line where a nurse can evaluate your symptoms for urgency and recommend appropriate follow up and care by calling [phone]. For medical emergencies requiring immediate attention, call 911 or proceed to your nearest emergencydepartment. The Emergency Department at [facility] is open 24 hours a day, [...] breathing. ??? Use Emergency plan On track (07/23/2018) Emergency Care: Hypoglycemia Seek Emergency care for [...] ??? Use Sick day plan On track (07/23/2018) Sick Day Guidelines Illness places stress on [...] these sick day guidelines. ASSESSMENT/PLAN Next contact: 7 day(s) by Phone Call. Discussion items for the next contact include: Lab follow ups. Blood sugar, exercise. The following portions of the patient's history were updated as appropriate: education. The patient was instructed to contact the mall plant caretaker with any questions or concerns and statedunderstanding of the information provided. documented in this encounter Plan of Treatment Upcoming Encounters Date Type Specialty Care Team Description 04/23/2022 Office Visit Cardiovascular Disease Blas Peck M.D. [address] [place] [phone] (Wo rk) documented as of this encounter Visit Diagnoses Not on filedocumented in this encounter Additional Health Concerns Assessment Noted Time PHQ-9 Depression Total Score: 7 04/01/2018 1:32 PM BRAND LEADER documented as of this encounter Care Teams Video Production Intern Relationship Specialty Start Date End Date Franco Molina M.D. PCP - General 09/25/16 07/27/19 documented as of this encounter
--- OUTSIDE RECORDS SUMMARY | 2022-02-17 12:21 | XMS_ITS | Encounter Summary ---
:1950 Author Organization [facility] Address [address] [place] [address] Care Team Providers Name Role Phone Franco Molina M.D. Primary Care Provider Reason for Visit Reason Comments Care Coordination - Follow up Encounter Details Date Type Department Care Team Description 08/12/2018 Patient Outreach Department of Michelle Taylor Nursery School Teacher rdination - Community Internal R, R.N. Follow up Medicine in [address] [phone] Social History Tobacco Use Types [...] Progress Notes Michelle Taylor R, R.N. - 08/12/2018 3:16 PM CDT SUBJECTIVE REASON FOR VISIT Follow up on Elvis Dawkins participation in the Adult Care Coordination program. HISTORY OF PRESENT ILLNESS Summary of the discussion: Elvis tells me today the only blood sugar reading he has this week was 246. New glucometer kit pended for Dr. Molina today. He has not yet started any exercise, he notes he feels store and stiff when it is cold out. He is hoping once it warms up he will feel better. Elvis has not yet looked for other living options, he tells me this is still on his list to do. He notes finding a new place would help with his mental and physical health. We spoke about the barriers to finding a new place, and he is unable to identify any. Goals Addressed Most Recent Patient Stated ??? Exercise (pt-stated) No change (08/12/2018) Would like to start using his exercise bike daily. ??? Weight loss (pt-stated) On track (08/12/2018) Patient would like to loose 24 pounds by the end of September. Other ??? Follow your action plan for Diabetes On track (08/12/2018) It is important to keep regular follow ups with your Primary Doctor. Talk with your doctor???s clinic nurse during office hours about any concerns you may have, by calling the Call Center at [phone], or calling your Filter Helper, Michelle Taylor RN, at [phone]. If you have the online Portal, send a message to your provider regarding any concerns you may have. During non-office hours you can be directed to the ExpertRN line where a nurse can evaluate your symptoms for urgency and recommend appropriate follow up and care by calling [phone]. For medical emergencies requiring immediate attention, call 911 or proceed to your nearest emergencydepartment. The Emergency Department at [facility] is open 24 hours a [...] breathing. ??? Use Emergency plan On track (08/12/2018) Emergency Care: Hypoglycemia Seek Emergency care for [...] ??? Use Sick day plan On track (08/12/2018) Sick Day Guidelines Illness places stress on [...] Discussion items for the next contact include: Blood sugars, living arrangements. The following portions of the patient's history were updated as appropriate: education. The patient was instructed to contact the progressive care unit registered nurse with any questions or concerns and statedunderstanding of the information provided. documented in this encounter Plan of Treatment Upcoming Encounters Date Type Specialty Care Team Description 04/23/2022 Office Visit Cardiovascular Disease Blas Peck M.D. [address] [place] [phone] (Wo rk) documented as of this encounter Visit Diagnoses Not on filedocumented in this encounter Additional Health Concerns Assessment Noted Time PHQ-9 Depression Total Score: 5 08/11/2018 9:14 AM CDT documented as of this encounter Care Teams Construction Administrative Assistant Relationship Specialty Start Date End Date Franco Molina M.D. PCP - General 09/25/16 07/27/19 documented as of this encounter
--- OUTSIDE RECORDS SUMMARY | 2022-02-17 12:21 | XMS_ITS | Encounter Summary ---
:1950 Author Organization [facility] Address [address] [place] [address] Care Team Providers Name Role Phone Franco Molina M.D. Primary Care Provider Reason for Visit Reason Comments Care Coordination ( August ) Encounter Details Date Type Department Care Team Description 09/10/2018 Patient Outreach Department of [facility] Pullboat Engineer rdination ( [facility] Internal R, R.N. August [facility] ) Medicine in [place], [place] [address] [place] [address] Social History Tobacco Use Types [...] Visit Cardiovascular Disease Blas Peck M.D. [address] [place], [place] [phone] (Wo rk) documented as [...] documented as of this encounter Care Teams Stock Handler Relationship Specialty Start Date End Date Franco Molina M.D. PCP - General 09/25/16 07/27/19 documented as of this encounter
--- OUTSIDE RECORDS SUMMARY | 2022-02-17 12:21 | XMS_ITS | Encounter Summary ---
:1950 Author Organization [facility] Address [address] [place] [address] Care Team Providers Name Role Phone Franco Molina M.D. 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 Dx:E11.9 blood-glucose meter [facility] [place] glucose 1 each 0 08/1210/25/2018 meter, [...] Office Visit Cardiovascular Disease lBas Peck M.D. [address] [place] [phone] (Wo rk) documented as of this encounter Procedures Procedure Name Priority Date/Time Associated Diagnosis Comme nts LIPID PANEL, S Routine 09/22/2018 10:11 Diabetes Mellitus Resu lts for this AM CDT Type 2 With Diabetic procedu re are in Neuropathy the results Hyperglycemic (H CC) section. 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 Stage 2 (Mild) Chronic Kidney Disease Coronary Artery Disease [place] Hyperlipidemia ALANINE Routine 09/22/2018 10:11 Diabetes Mellitus Result s for this AMINOTRANSFERASE (ALT), AM CDT Type 2 With Diabe tic procedure are in S/P Neuropathy the results Hyperglycemic (H CC) section. Coronary Artery Disease [place] High Risk Medica tion Hyperlipidemia ASPARTATE Routine 09/22/2018 10:11 Diabetes Mellitus Result s for this AMINOTRANSFERASE (AST), AM CDT Type 2 With Diabe tic procedure are in S/P Neuropathy the results Hyperglycemic (H CC) section. Coronary Artery Disease [place] High Risk Medica tion Hyperlipidemia THYROID-STIMULATING Routine 09/22/2018 10:11 Hypertensive Hear t Results for this HORMONE-SENSITIVE AM CDT And Chronic Kidney proc edure are in (S-TSH) Disease Without Heart the re sults Failure And With section. Stage 2 (Mild) Chronic Kidney Disease Coronary Artery Disease [place] Hyponatremia HEMOGLOBIN A1C, B Routine 09/22/2018 10:11 Diabetes Mellitus R esults for this AM CDT Type 2 With Diabetic procedu re are in Neuropathy the results Hyperglycemic (H CC) section. 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 Coronary Artery Disease [place] High Risk Medica tion Hyperlipidemia BASIC METABOLIC PANEL, Routine 09/22/2018 10:11 Diabetes Melli tus Results for this S/P AM CDT Type 2 With Diabetic procedu re are in Neuropathy the results Hyperglycemic (H CC) section. 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 ??Higher concentr ations of biotin may be found in multivitamins, hair/nail supple ments, and workout supplements. ??If the result does not [facility] clinical observations, repeat testing after patient refrains fr om the use of supplements for at least 12 hours. Specimen Anatomical Collection Method Collection Time Receive d Time (Source) Location / / Volume Laterality Blood (Blood, 09/22/2018 10:11 09/22/2018 1:08 Venous) AM CDT PM CDT Franco Molina M.D. LAB BLOOD ADD-ON Performing Organization Address City/[facility] Phon e Number [facility] [address], [place] [address] LAB Lipid Panel (09/22/2018 10:11 AM CDT) P athologist Signature Cholesterol, 130 mg/dL 09/22/2018 Total 2:15 PM CDT Comment: ----REFERENCE VALUE---- Desirable: < 200 Borderline high: 200 - 239 High: > or = 240 Triglycerides 99 mg/dL 09/22/2018 2:15 PM CDT Comment: ----REFERENCE VALUE---- Normal: <150 Borderline high: 150-199 High: 200-499 Very high: > or =500 Cholesterol, HDL, S 45 >=40 mg/dL 09/22/2018 2:15 PM CDT Calculated LDL 65 mg/dL 09/22/2018 2:15 PM CDT Comment: ----REFERENCE VALUE---- Desirable: <100 Above Desirable: 100-129 Borderline high: 130-159 High: 160-189 Very high: > or =190 Cholesterol, Non-HDL, Calculated 85 mg/dL 019 2:15 PM CDT Comment: ----REFERENCE VALUE---- Desirable: <130 Above Desirable: 130-159 Borderline high: 160-189 High: 190-219 Very high: > or =220 Specimen Anatomical Collection Method Collection Time Receive d Time (Source) Location / / Volume Laterality Blood (Blood, 09/22/2018 10:11 09/22/2018 1:08 Venous) AM CDT PM CDT Franco Molina M.D. LAB BLOOD ADD-ON Performing Organization Address City/[facility]/ZIP Code Phon e Number [facility] [address] [place] [address] LAB (ABNORMAL) Hemoglobin A1c (09/22/2018 10:11 AM CDT) P athologist Signature Hemoglobin A1c, 9.3 (H) 4.2 - 5.6 09/22/2018 B % 1:57 PM CDT Comment: Hemoglobin A1c values greater than or eq ual to 6.5 percent are diagnostic for diabetes mellitus. ?? Diagnosis should be confirmed by repeat testing. ??In diabet ic patients, HbA1c goals should be discussed with healthcar e provider. Specimen Anatomical Collection Method Collection Time Receive d Time (Source) Location / / Volume Laterality Blood (Blood, 09/22/2018 10:11 09/22/2018 1:08 Venous) AM CDT PM CDT Phunt Phyo M.D. LAB BLOOD ADD-ON Performing Organization Address City/State/ZIP Code Phon e Number [facility] [address] [place] [address] LAB CK (Creatine Kinase) (09/22/2018 10:11 AM CDT) P athologist Signature Creatine Kinase 267 39 - 308 09/22/2018 (CK), S U/L 4:12 PM CDT Specimen Anatomical Collection Method Collection Time Receive d Time (Source) Location / / Volume Laterality Blood (Blood, 09/22/2018 10:11 09/22/2018 3:52 Venous) AM CDT PM CDT Phunt Phyo M.D. LAB BLOOD ADD-ON Performing Organization Address City/State/ZIP Code Phon e Number [facility] [address] [place] [address] [place] LAB ALT (Alanine Aminotransferase) (09/22/2018 10:11 AM CDT) [facility] Method Time Signature Alanine 15 7 - 55 09/22/2018 Aminotransferase U/L 2:15 PM CDT (ALT), S Specimen Anatomical Collection Method Collection Time Receive d Time (Source) Location / / Volume Laterality Blood (Blood, 09/22/2018 10:11 09/22/2018 1:08 Venous) AM CDT PM CDT Phunt Phyo M.D. LAB BLOOD ADD-ON Performing Organization Address City/State/ZIP Code Phon e Number [facility] [address] [place] [address] LAB AST (Aspartate Aminotransferase) (09/22/2018 10:11 AM CDT) Patholo gist Method Time Signature Aspartate 19 8 - 48 09/22/2018 Aminotransferase U/L 2:15 PM CDT (AST), S Specimen Anatomical Collection Method Collection Time Receive d Time (Source) Location / / Volume Laterality Blood (Blood, 09/22/2018 10:11 09/22/2018 1:08 Venous) AM CDT PM CDT Franco Molina M.D. LAB BLOOD ADD-ON Performing Organization Address City/State/ZIP Code Phon e Number [facility] [address] [place] [address] LAB (ABNORMAL) Basic Metabolic Panel (09/22/2018 10:11 AM CDT) P athologist Signature Potassium, S 5.4 (H) 3.6 - 5.2 09/22/2018 mmol/L 2:15 PM CDT Sodium, S 136 135 - 145 09/22/2018 mmol/L 2:15 PM CDT Chloride, S 99 98 - 107 09/22/2018 mmol/L 2:15 PM CDT Bicarbonate, S 25 22 - 29 09/22/2018 mmol/L 2:15 PM CDT Anion Gap 12 7 - 15 09/22/2018 2:15 PM CDT BUN (Blood Urea 15 8 - 24 09/22/2018 Nitrogen), S mg/dL 2:15 PM CDT Creatinine 1.03 0.74 - 09/22/2018 1.35 mg/dL 2:15 PM CDT eGFR-Non 75 >=60 09/22/2018 Black/ mL/min/BSA 2:15 PM CDT [place] Comment: ----ADDITIONAL INFORMATION---- Estimated GFR calculated using the 2009 CKD_EPI creatinine equation. eGFR-Black/ 86 >=60 mL/min/BSA 2018 2:15 PM CDT Comment: ----ADDITIONAL INFORMATION---- Estimated GFR calculated using the 2009 CKD_EPI creatinine equation. Calcium, Total, S 9.7 8.8 - 10.2 mg/dL 09/22/2018 2:15 PM CDT Glucose, S 188 (H) 70 - 140 mg/dL 09/22/2018 2:15 PM CDT Specimen Anatomical Collection Method Collection Time Receive d Time (Source) Location / / Volume Laterality Blood (Blood, 09/22/2018 10:11 09/22/2018 1:08 Venous) AM CDT PM CDT Franco Molina M.D. LAB BLOOD ADD-ON Performing Organization Address City/State/ZIP Code Phon e Number [facility] [address] [place] [address] LAB CBC without Differential (09/22/2018 10:11 AM CDT) P athologist Signature Hemoglobin 15.5 13.2 - 09/22/2018 16.6 g/dL 10:18 AM CDT Hematocrit 45.8 38.3 - 09/22/2018 48.6 % 10:18 AM CDT Erythrocytes 5.28 4.35 - 09/22/2018 5.65 10:18 AM CDT x10(12)/L MCV 86.7 78.2 - 09/22/2018 97.9 fL 10:18 AM CDT RBC Distrib Width 14.0 11.8 - 09/22/2018 14.5 % 10:18 AM CDT Platelet Count 157 135 - 317 09/22/2018 x10(9)/L 10:18 AM CDT Leukocytes 6.7 3.4 - 9.6 09/22/2018 x10(9)/L 10:18 AM CDT Specimen Anatomical Collection Method Collection Time Receive d Time (Source) Location / / Volume Laterality Blood (Blood, 09/22/2018 10:11 09/22/2018 Venous) AM CDT 10:13 AM CDT Franco Molina M.D. 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 PCP - General 09/25/16 07/27/19 documented as of this encounter
--- OUTSIDE RECORDS SUMMARY | 2022-02-17 12:21 | XMS_ITS | Encounter Summary ---
:1950 Author Organization [facility] Address [address] [place] [address] Care Team Providers Name Role Phone Franco Molina M.D. Primary Care Provider Reason for Referral Outpatient (Routine) - Closed Specialty Diagnoses / Procedures Referred By Contact Refer red To Contact [facility] Franco Molina M.D. [facility] [address], [address] [address] Referral ID Status Reason Start Date Expiration Date Visits Requ ested Visits Authorized [id number] Closed 09/24/2018 09/24/2019 1 1 Scheduling Instructions Three month follow-up. Need blood tests few days before appointment. utpatient (Routine) - Closed Specialty Diagnoses / Procedures Referred By Contact Refer red To Contact Us [facility] Franco Molina M.D. [facility] [address] [facility], [address] [address] Referral ID Status Reason Start Date Expiration Date Visits Requ ested Visits Authorized [id number] Closed 09/24/2018 09/24/2019 1 1 Scheduling Instructions Follow-up DM Reason for Visit Reason Comments Follow-up Patient is in today for 3 mo nth follow up from 06.18.2018. Patient has an ingrown finger nail on the l eft hand, has been on going for about a week. Used scotch tape orginally, swollen and full of pus. Has brought in recent Blood Sugar readings. Outpatient (Routine) - Closed Specialty Diagnoses / Procedures Referred By Contact Refer red To Contact [facility] Franco Molina M.D. [facility] Medicine [address], [address] [place] [address] Referral ID Status Reason Start Date Expiration Date Visits Requ ested Visits Authorized [id number] Closed 06/18/2018 06/18/2019 1 1 Encounter Details Date Type Department Care Team Description 09/24/2018 Office Visit Department of Franco Molina M.D . 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 Hyperglycemic (HCC) (Primary Dx); [facility] [address], Par onychia Finger Left; Medicine in [place] [address] Coronary Artery Disease (Unspecified); [place], [place] Coronary Arterial Bypass Gra ft Status Post Personal History; [address] [address] Hypertensive Heart And Chronic Kidney Di sease Without Heart Failure And With Stage 2 (Mild) Chronic Kidney Disease; [place] Hyperlip idemia; [id number] Anxiety; [phone] Hyperkalemia; Tubular Adenoma Colon Personal History; High Risk Medic ation Social History Tobacco [...] Sign Reading Time Taken Comments Blood Pressure 128/74 09/24/2018 9:54 AM CDT Pulse 60 09/24/2018 9:54 AM CDT Temperature - - Respiratory Rate 12 09/24/2018 9:54 AM CDT Oxygen Saturation - - Inhaled Oxygen Concentration - - Weight 102 kg (225 lb 1.4 oz) 09/24/2018 9:54 AM CDT Height 172.5 cm (5' 7.91) 09/24/2018 9:54 AM CDT Body Mass Index 34.31 09/24/2018 9:54 AM CDT documented in this encounter Progress Notes Franco Molina M.D. - 09/24/2018 10:00 AM CDT SUBJECTIVE CHIEF COMPLAINT/ REASON FOR VISIT 1. Follow-up medical problems 2. Review medical problems 3. Paronychia of left middle finger HISTORY OF PRESENT ILLNESS Elvis Dawkins is a 68 y.o. male who presents to the clinic today for above complaints. I saw him on 06/18/2018. He had blood tests on 09/22/2018. We discussed lab results. CBC was normal. Basic metabolic panel was remarkable for potassium 5.4 and glucose 188. AST, ALT and CK were normal. Total cholesterol 130, HDL 45, LDL 65 and triglyceride 99. TSH was normal. Hemoglobin A1c was high, 9.3. Itwas 8.7 on 06/14/2018. Urine microalbumin and creatinine ratio was normal. He does not have acute complaint other than by her neck he a of the left middle finger started a week ago. It was red and swollen. Now he notices pus collection near the lateral aspect of finger tip. He denies fever or chills. He does not have significant pain because he has high pain tolerance. He monitors blood sugar every day at least. Sometime he checks 2 times a day. Lowest blood sugar was in 90s. Highest blood sugar was3 80s. He does not have hypoglycemic symptoms. According to him he takes medication regularly. Currently he takes glimepiride and Tradjenta for diabetes mellitus type 2. He has coronary artery disease.He underwent CABG in the past. He denies exertional chest pain or dyspnea exertion. He has anxiety and is controlled with current medications. He takes BuSpar 30 mg by mouth 2 times a day instead of 20mg by mouth 3 times a day. He feels much better mentally. We discussed possible etiologies saw hyperk alemia. He does not have symptoms. It should be noted that he does not use Flonase nasal spray or Atrovent nasal spray. He has screening colonoscopy on 06/28/2018. Multiple colon polyps were removed. Pathology report showed tubular adenoma. It was suggested to repeat screening colonoscopy in 3 years. I reviewed and updated medical record. Medication [...] Dx:E11.9 100 strip 11 ??? blood-glucose meter [facility] [place] Dispense glucose meter, test strips, lancing device, and lancets covered by the patient insurance. Test 2 times per day. Dx: E11.40, E11.65 1 each 0 ??? busPIRone (BUSPAR) 10 mg tablet Take 2 tablets (20 mg total) by mouth 3 (three) times a day. 540tablet 3 ??? CONTOUR TEST STRIPS strips USE ONE STRIP TO CHECK GLUCOSE ONCE DAILY BEFORE BREAKFAST 100 strip 4 ??? linagliptin (TRADJENTA) 5 mg tablet Take [...] by mouth daily. 90 capsule 3 ??? cephalexin (KEFLEX) 500 mg capsule Take 1 capsule (500 mg total) by mouth 4 (four) times a day for 10 days. 40 capsule 0 ??? docusate sodium (for_COLACE) 100 mg capsule Take 100 mg by mouth daily as needed. ??? FLUoxetine (PROzac) 40 mg capsule Take 1 capsule (40 mg total) by mouth every morning. (Patient not taking: Reported on 09/24/2018 ) 90 capsule 3 ??? fluticasone (for_FLONASE) 50 mcg/actuation nasal spray Administer 2 sprays into each nostril daily. (Patient not taking: Reported on 06/18/2018 ) 16 g 2 ??? glipiZIDE (GLUCOTROL) 10 mg tablet Take 1 tablet (10 mg total) by mouth 2 (two) times a day before breakfast and dinner. Stop Amaryl 180 tablet 3 ??? ipratropium (ATROVENT) 0.03 % nasal spray Administer 2 sprays into each nostril 3 (three) times a day as needed for rhinitis. (Patient not taking: Reported on 06/18/2018 ) 30 mL 2 No current facility-administered medications for this visit. [...] 34.0 To 34.9 Adult 01/03/2016 ??? Callus [place] Foot 04/25/2016 ??? Congestion Nasal 01/03/2016 ??? [...] Four colon polyps. Repeat in 3 years. [facility]. ??? COLONOSCOPY W/ POLYPECTOMY 05/11/[address]/Memosweet grass. Dr. Devi miralasara prep, quality poor. Repeat [...] on phone: None Gets together: None Attends catholic service: None Active member of club or [...] ??? Accident Brother OBJECTIVE VITAL SIGNS Vitals: 09/24/18 0954 BP: 128/74 Patient Position: Sitting Pulse: 60 Resp: 12 Height: 172.5 cm Weight: 102 kg PHYSICAL EXAMINATION General: Obese. Patient is sitting. No distress. Able to talk without interruption. Head: No facial rash, asymmetry or sinus tenderness. Eyes: PERRLA. EOMI. No pallor, icterus or conjunctivitis. ENT: No nasal congestion, discharge or bleeding. Tongue is moist and midline. No oral lesions. Extremities: He has paronychia of left middle finger tip, lateral aspect. No clubbing, cyanosis, edema, infection or calf tenderness. Mental: Alert and oriented x 3. Normal mood and affect. Neuro: Grossly nonfocal exam. ASSESSMENT / PLAN #1 Diabetes Mellitus Type 2 With Diabetic Neuropathy Hyperglycemic (HCC) Diabetes mellitus is not controlled. Recent hemoglobin A1c was 9.3. We discussed self-management goal of diabetes mellitus. Today his Body mass index is 34.31 kg/m??. He needs to lose weight. He will continue ADA diet and regular exercise. It was decided to discontinue glimepiride. He will take glipizide 10 mg by mouth 2 times a day before breakfast and dinner. He needs to monitor blood sugar 2 timesa day. Advised him to make an appointment to see spreader operator automatic at [facility] in [place]. Will repeat hemoglobin A1c in 3 months. He needs to see eye doctor once a year. #2 Paronychia Finger Left After obtaining above her informed consent, incision and drainage was done without bleeding or complication. He was advised to watch for bleeding and infection. He will take Keflex 500 mg by mouth 4 times a day for 10 days. #3 Coronary Artery Disease (Unspecified) #4 Coronary Arterial Bypass Graft Status Post Personal History He is stable from cardiac standpoint. There is no angina. Needs to continue current medication and cardiovascular risk factor modification. 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 Advised him to continue current medications, sodium restriction diet and cardiovascular risk factor modification. Blood pressure goal should be less than 130/80 mm Hg. #6 Hyperlipidemia We discussed lipid profile from 09/22/2018. He will continue low-cholesterol diet, low-fat diet, regular exercise and atorvastatin. Need to repeat lipid profile after 10/11/2019. #7 Anxiety He feels better. He would like to continue BuSpar 30 mg by mouth 2 times a day instead of 20 mg by mouth 3 times a day. He will continue fluoxetine. #8 Hyperkalemia He is asymptomatic. He needs to cut back potassium in his diet. We need to monitor electrolytes and renal function. #9 Tubular Adenoma Colon Personal History He had colonoscopy on 06/28/2018. Several colon polyps were removed. Pathology report showed tubularadenoma. He needs to repeat screening colonoscopy after 06/29/2021. #10 Discussed Test Results I reviewed test results from 09/22/2018. All questions were answered. #11 Follow-up Visit Return to the clinic in three months for review medical problems and discuss test results. He needs to do following tests few days before the appointment: ALT, AST, BMP, CBC, CK and hemoglobin A1c. ADMINISTRATIVE BILLING 25 minutes of this 35 minute visit was spent in face to face counseling and coordination of care. documented in this encounter Plan of Treatment Upcoming Encounters Date Type Specialty Care Team Description 04/23/2022 Office Visit Cardiovascular Disease Blas Peck M.D. [address] [place] [phone] (Wo rk) Scheduled Referrals Name Type Priority Associated Diagnoses Order S [facility] Internal Outpatient Referral Routine Ex pected: Medicine office 10/24/2018 visit (clinic) (Approximate) , Expires: 09/24/2021 [facility] Outpatient Referral Routine Ex pected: Medicine office 12/25/2018 visit (clinic) (Approximate) , Expires: 09/24/2021 documented as of this encounter Results (ABNORMAL) Hemoglobin A1c (12/29/2018 9:03 AM CDT) P athologist Signature Hemoglobin A1c, 9.2 (H) [...] Organization Address City/State/ZIP Code Phon e Number [facility] [address] [place] [id number] LAB CK (Creatine Kinase) (12/29/2018 9:03 AM CDT) P athologist Signature Creatine Kinase 228 39 - 308 12/29/2018 (CK), S U/L 4:57 PM CDT Specimen Anatomical Collection Method Collection Time Receive d Time (Source) Location / / Volume Laterality Blood (Blood, 12/29/2018 9:03 AM 12/30/19 19 4:27 Venous) CDT PM CDT Franco Molina M.D. LAB BLOOD ADD-ON Performing Organization Address City/State/[facility] Code Phon e Number [facility] [address] [place] [address] [place] [employer] LAB ALT (Alanine Aminotransferase) (12/29/2018 9:03 AM CDT) Patholo gist Method Time Signature Alanine 13 7 - 55 12/29/2018 Aminotransferase U/L 10:41 AM CDT (ALT), S Specimen Anatomical Collection Method Collection Time Receive d Time (Source) Location / / Volume Laterality Blood (Blood, 12/29/2018 9:03 AM 12/30/19 19 Venous) CDT 10:22 AM CDT Franco Molina M.D. LAB BLOOD ADD-ON Performing Organization Address City/State/ZIP Code Phon e Number [facility] [address] [place] [address] LAB AST (Aspartate Aminotransferase) (12/29/2018 9:03 AM CDT) Patholo gist Method Time Signature Aspartate 21 8 - 48 12/29/2018 Aminotransferase U/L 10:41 AM CDT (AST), S Specimen Anatomical Collection Method Collection Time Receive d Time (Source) Location / / Volume Laterality Blood (Blood, 12/29/2018 9:03 AM 12/30/19 19 Venous) CDT 10:22 AM CDT Franco Molina M.D. LAB BLOOD ADD-ON Performing Organization Address City/State/ZIP Code Phon e Number [facility] [address] [place] [address] LAB Basic Metabolic Panel (12/29/2018 9:03 AM [...] >=60 12/29/2018 Black/ mL/min/BSA 10:41 AM CDT Barbadian Comment: ----ADDITIONAL INFORMATION---- Estimated GFR calculated using [...] M.D. 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 PCP - General 09/25/16 07/27/19 documented as of this encounter
--- OUTSIDE RECORDS SUMMARY | 2022-02-17 12:21 | XMS_ITS | Encounter Summary ---
:1950 Author Organization [facility] Address [address] [place] [address] Care Team Providers Name Role Phone Franco Molina M.D. Primary Care Provider Reason for Visit Reason Comments Care Coordination - Follow up Encounter Details Date Type Department Care Team Description 08/26/2018 Patient Outreach Department of Michelle Taylor Lower In Supervisor rdination - Community Internal R, R.N. Follow up Medicine in [address] [phone] Social History Tobacco Use Types [...] encounter Progress Notes Michelle Taylor RMichelleN. - 08/26/2018 8:35 AM CDT Call placed to Elvis for care coordination follow up. Voicemail is full, unable to leave message. documented in this encounter Plan of Treatment Upcoming Encounters Date Type Specialty Care Team Description 04/23/2022 Office Visit Cardiovascular Disease Blas Peck M.D. [address] [place] [address] [place] [phone] (Wo rk) documented as of this encounter Visit Diagnoses Not on filedocumented in this encounter Additional Health Concerns Assessment Noted Time PHQ-9 Depression Total Score: 5 08/11/2018 9:14 AM CDT documented as of this encounter Care Teams Commercial Appraiser Relationship Specialty Start Date End Date Franco Molina M.D. PCP - General 09/25/16 07/27/19 documented as of this encounter
--- OUTSIDE RECORDS SUMMARY | 2022-02-17 12:21 | XMS_ITS | Encounter Summary ---
:1950 Author Organization [facility] Address [address] [place] [address] Care Team Providers Name Role Phone Franco Molina M.D. Primary Care Provider Reason for Visit Reason Comments Care Coordination - Follow up Encounter Details Date Type Department Care Team Description 09/03/2018 Patient Outreach Department of Michelle Taylor Musical String Maker rdination - Community Internal R, R.N. Follow up Medicine in [address] [phone] Social History Tobacco Use Types [...] encounter Progress Notes Michelle Taylor, R.N. - 09/03/2018 1:01 PM CDT SUBJECTIVE REASON FOR VISIT Follow up on Elvis Dawkins participation in the Adult Care Coordination program. HISTORY OF PRESENT ILLNESS Summary of the discussion: Elvis returns my phone call today. He has been out of town on vacation. He shared in detail about [place] he enjoyed himself and had a good time. He did not monitor or record his blood sugarswhile he was away. He picked up his new glucometer and now has that working and took his first blood sugar with it today. His result was 191. He is going to monitor and record his blood sugars at least daily for the nextcouple of weeks. Now that it is nice out he would like to take his walking stick outside and walk. He finds being outside is better than the exercise bike in the summer. Goals Addressed Most Recent Patient Stated ??? Exercise (pt-stated) No change (09/03/2018) Would like to start using his exercise bike daily. ??? Weight loss (pt-stated) No change (09/03/2018) Patient would like to loose 24 pounds by the end of September. Other ??? Follow your action plan for Diabetes On track (09/03/2018) It is important to keep regular follow ups with your Primary Doctor. Talk with your doctor???s clinic nurse during office hours about any concerns you may have, by calling the Call Center at [phone], or calling your Spline Rolling Machine Job Setter, Michelle Taylor RN, at [phone]. If you have the online Portal, send a message to your provider regarding any concerns you may have. During non-office hours you can be directed to the ExpertRN line where a nurse can evaluate your symptoms for urgency and recommend appropriate follow up and care by calling [phone]. For medical emergencies requiring immediate attention, call 911 or proceed to your nearest emergencydepartment. The Emergency Department at [facility] is open 24 hours a day, [...] breathing. ??? Use Emergency plan On track (09/03/2018) Emergency Care: Hypoglycemia Seek Emergency care for [...] ??? Use Sick day plan On track (09/03/2018) Sick Day Guidelines Illness places stress on [...] for the next contact include: blood sugars, walking The following portions of the patient's history were updated as appropriate: education. The patient was instructed to contact the day care provider with any questions or concerns and statedunderstanding of the information provided. documented in this encounter Plan of Treatment Upcoming Encounters Date Type Specialty Care Team Description 04/23/2022 Office Visit Cardiovascular Disease Blas Peck M.D. [address] [place] [phone] (Wo ) documented as of this encounter Visit Diagnoses Not on filedocumented in this encounter Additional Health Concerns Assessment Noted Time PHQ-9 Depression Total Score: 5 08/11/2018 9:14 AM CDT documented as of this encounter Care Teams Chemical Reclamation Equipment Operator Relationship Specialty Start Date End Date Franco Molina M.D. PCP - General 09/25/16 07/27/19 documented as of this encounter
--- OUTSIDE RECORDS SUMMARY | 2022-02-17 12:21 | XMS_ITS | Encounter Summary ---
:1950 Author Organization [facility] Address [address] [place] [address] Care Team Providers Name Role Phone Franco Molina M.D. Primary Care Provider Reason for Visit Reason Comments Med Refill Encounter Details Date Type Department Care Team Description 09/03/2018 Refill Department of [facility] Torey Molina M.D. Med Refill Internal Medicine in [address] [place] [address], [facility] [address] [place] [address] [place] [address] [place] [address] Social History Tobacco Use [...] Notes Telephone Encounter - Jj Carter V., C.M.A. - 09/07/2018 9:12 AM CDT SUBJECTIVE CHIEF COMPLAINT / REASON FOR CALL Med Refill INFORMATION DISCUSSED Contacted the patient and notified them that [facility] PLAN Disposition/Recommendation: N/A Information: patient/caller able to repeat back in their own words Caller agreeable to plan of care: yes The following references were used: provider Dr. Franco Molina documented in this encounter Plan of Treatment Upcoming Encounters Date Type Specialty Care Team Description 04/23/2022 Office Visit Cardiovascular Disease Blas Peck M.D. [address] [place] [phone] (Wo rk) documented as of this encounter Visit Diagnoses Not on filedocumented in this encounter Additional Health Concerns Assessment Noted Time PHQ-9 Depression Total Score: 5 08/11/2018 9:14 AM CDT documented as of this encounter Care Teams Outboard Motor Assembler Relationship Specialty Start Date End Date Franco Molina M.D. PCP - General 09/25/16 07/27/19 documented as of this encounter
--- OUTSIDE RECORDS SUMMARY | 2022-02-17 12:21 | XMS_ITS | Encounter Summary ---
:1950 Author Organization [facility] Address [address] [place] [address] Care Team Providers Name Role Phone Franco Molina M.D. Primary Care Provider Reason for Visit Reason Comments Med Refill Encounter Details Date Type Department Care Team Description 08/23/2018 Refill Department of [facility] Torey Molina M.D. Med Refill Internal Medicine in [address] [place] [address], [facility] [address] [place] [address] [place] [address] [place] [address] Social History Tobacco Use [...] Miscellaneous Notes Telephone Encounter - Ally Guzman L.P.N. - 08/24/2018 9:18 AM CDT Patient has been informed. documented in this encounter Plan of Treatment Upcoming Encounters Date Type Specialty Care Team Description 04/23/2022 Office Visit Cardiovascular Disease Blas Peck M.D. [address] [place] [address] [place], [place] [phone] (Wo rk) documented as of this encounter Visit Diagnoses Not on filedocumented in this encounter Additional Health Concerns Assessment Noted Time PHQ-9 Depression Total Score: 5 08/11/2018 9:14 AM CDT documented as of this encounter Care Teams Extract Puller Relationship Specialty Start Date End Date Franco Molina M.D. PCP - General 09/25/16 07/27/19 documented as of this encounter
--- OUTSIDE RECORDS SUMMARY | 2022-02-17 12:21 | XMS_ITS | Encounter Summary ---
:1950 Author Organization [facility] Address [address] [place] [address] Care Team Providers Name Role Phone Franco Molina M.D. Primary Care Provider Reason for Visit Reason Comments Care Coordination Encounter Details Date Type Department Care Team Description 09/30/2018 Patient Outreach Department of Michelle Taylor, Care Coordination [facility] Internal R.N. Medicine in [address] [phone] Social History Tobacco Use Types [...] of this encounter Progress Notes Michelle Taylor R.N. - 09/30/2018 10:02 AM CDT Call placed to Elvis for care coordination follow up. Left message for Elvis to return my call. documented in this encounter Plan of Treatment Upcoming Encounters Date Type Specialty Care Team Description 04/23/2022 Office Visit Cardiovascular Disease Blas Peck M.D. [address] [place], [place] [phone] (Wo rk) documented as of this encounter Visit Diagnoses Not on filedocumented in this encounter Additional Health Concerns Assessment Noted Time PHQ-9 Depression Total Score: 4 09/23/2018 10:37 AM CD T documented as of this encounter Care Teams Wet Sander Relationship Specialty Start Date End Date Franco Molina M.D. PCP - General 09/25/16 07/27/19 documented as of this encounter
--- OUTSIDE RECORDS SUMMARY | 2022-02-17 12:21 | XMS_ITS | Encounter Summary ---
:1950 Author Organization [facility] Address [address] [place] [address] Care Team Providers Name Role Phone Franco Molina M.D. Primary Care Provider Reason for Visit Reason Comments Care Coordination - Follow up Encounter Details Date Type Department Care Team Description 09/17/2018 Patient Outreach Department of Michelle Taylor District Sales Leader rdination - Community Internal R, R.N. Follow up Medicine in [address] [phone] Social History Tobacco Use Types [...] encounter Progress Notes Michelle Taylor RPapa. - 09/17/2018 10:07 AM CDT Call placed to Elvis for care coordination follow up. Left message for Elvis to return my call. documented in this encounter Plan of Treatment Upcoming Encounters Date Type Specialty Care Team Description 04/23/2022 Office Visit Cardiovascular Disease Blas Peck M.D. [address] [place] [address] MARQUEZ Owen [phone] (Wo rk) documented as of this encounter Visit Diagnoses Not on filedocumented in this encounter Additional Health Concerns Assessment Noted Time PHQ-9 Depression Total Score: 5 08/11/2018 9:14 AM CDT documented as of this encounter Care Teams Intensive Care Medicine Specialist Relationship Specialty Start Date End Date Franco Molina M.D. PCP - General 09/25/16 07/27/19 documented as of this encounter
--- OUTSIDE RECORDS SUMMARY | 2022-02-17 12:21 | XMS_ITS | Encounter Summary ---
:1950 Author Organization [facility] Address [address] [place] [address] Care Team Providers Name Role Phone Franco Molina M.D. Primary Care Provider Reason for Visit Reason Comments Care Coordination - Follow up Encounter Details Date Type Department Care Team Description 09/01/2018 Patient Outreach Department of Michelle Taylor Bumper Straightener rdination - Community Internal R, R.N. Follow up Medicine in [address] [phone] Social History Tobacco Use Types [...] encounter Progress Notes Michelle Taylor RMichelleN. - 09/01/2018 1:47 PM CDT Call placed to Elvis for care coordination follow up. Left message for Elvis to return my call. documented in this encounter Plan of Treatment Upcoming Encounters Date Type Specialty Care Team Description 04/23/2022 Office Visit Cardiovascular Disease Blas Peck M.D. [address] [place] [address] MARQUEZ Owen [phone] (Wo rk) documented as of this encounter Visit Diagnoses Not on filedocumented in this encounter Additional Health Concerns Assessment Noted Time PHQ-9 Depression Total Score: 5 08/11/2018 9:14 AM CDT documented as of this encounter Care Teams White Sugar Syrup Operator Relationship Specialty Start Date End Date Franco Molina M.D. PCP - General 09/25/16 07/27/19 documented as of this encounter
--- OUTSIDE RECORDS SUMMARY | 2022-02-17 12:21 | XMS_ITS | Encounter Summary ---
:1950 Author Organization [facility] Address [address] [place] [address] Care Team Providers Name Role Phone Franco Molina M.D. Primary Care Provider Reason for Visit Reason Comments Care Coordination - Follow up Encounter Details Date Type Department Care Team Description 07/29/2018 Patient Outreach Department of Michelle Taylor Logistics Program Manager rdination - Community Internal R, R.N. Follow up Medicine in [address] [phone] Social History Tobacco Use Types [...] encounter Progress Notes Michelle Taylor, R.N. - 07/29/2018 10:03 AM CDT SUBJECTIVE REASON FOR VISIT Follow up on Elvis Dawkins participation in the Adult Care Coordination program. HISTORY OF PRESENT ILLNESS Summary of the discussion: Elvis shares with me today that his blood sugars have been running in the upper 200's to low 300's. He is currently checking them three times a day. He didn't have specific numbers for me. We spoke about ways in which he might lower the numbers and he states next week they will be around 125. When I ask him how he will work on lowering those he states it is a secret. He tells me he will share withme next week what he has done to lower them. I do share my concerns regarding his high number that we won't see his A1c decrease. He would like a new glucometer and I will pend this for Dr. Molina when he returns. Elvis is in agreement with this plan. He states he has not been on his exercise bike, however, is looking forward to nicer weather so he can exercise outside. He enjoys playing outside sports and walking. We reviewed the letter mailed by Dr. De La Torre that states he doesn't have any gluten sensitivity. He hasno questions or concerns regarding that testing. He was wondering when he would receive the results from his stool cultures. I see this are still in progress and share that information with Elvis. Goals Addressed Most Recent Patient Stated ??? Exercise (pt-stated) On track (07/29/2018) Would like to start using his exercise bike daily. ??? Weight loss (pt-stated) On track (07/29/2018) Patient would like to loose 24 pounds by the end of September. Other ??? Follow your action plan for Diabetes On track (07/29/2018) It is important to keep regular follow ups with your Primary Doctor. Talk with your doctor???s clinic nurse during office hours about any concerns you may have, by calling the Call Center at [phone], or calling your Project Management Specialist, Michelle Taylor RN, at [phone]. If you have the online Portal, send a message to your provider regarding any concerns you may have. During non-office hours you can be directed to the ExpertRN line where a nurse can evaluate your symptoms for urgency and recommend appropriate follow up and care by calling [phone]. For medical emergencies requiring immediate attention, call 911 or proceed to your nearest emergencydepartment. The Emergency Department at [facility] is open 24 hours a [...] breathing. ??? Use Emergency plan On track (07/29/2018) Emergency Care: Hypoglycemia Seek Emergency care for [...] ??? Use Sick day plan On track (07/29/2018) Sick Day Guidelines Illness places stress on [...] for the next contact include: Blood sugars, exercise, diet The following portions of the patient's history were updated as appropriate: education. The patient was instructed to contact the critical care cns with any questions or concerns and statedunderstanding of the information provided. documented in this encounter Plan of Treatment Upcoming Encounters Date Type Specialty Care Team Description 04/23/2022 Office Visit Cardiovascular Disease Blas Peck M.D. [address] [place] [phone] (Wo rk) documented as of this encounter Visit Diagnoses Not on filedocumented in this encounter Additional Health Concerns Assessment Noted Time PHQ-9 Depression Total Score: 7 04/01/2018 1:32 PM STATE HISTORICAL SOCIETY DIRECTOR documented as of this encounter Care Teams Instrumentation Designer Relationship Specialty Start Date End Date Franco Molina M.D. PCP - General 09/25/16 07/27/19 documented as of this encounter
--- OUTSIDE RECORDS SUMMARY | 2022-02-17 12:21 | XMS_ITS | Encounter Summary ---
:1950 Author Organization [facility] Address [address] [place] [address] Care Team Providers Name Role Phone Franco Molina M.D. Primary Care Provider Reason for Visit Reason Comments Care Coordination ( July Bill) Encounter Details Date Type Department Care Team Description 08/10/2018 Patient Outreach Department of [facility] Dispatcher rdination ( [facility] Internal R, R.N. July) Medicine in [place], [place] [address] [place] [address] Social History Tobacco Use Types [...] Visit Cardiovascular Disease Blas Peck M.D. 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 PCP - General 09/25/16 07/27/19 documented as of this encounter
--- OUTSIDE RECORDS SUMMARY | 2022-02-17 12:21 | XMS_ITS | Encounter Summary ---
:1950 Author Organization [facility] Address [address] [place] [address] Care Team Providers Name Role Phone Franco Molina M.D. Primary Care Provider Reason for Visit Reason Comments Med Refill Encounter Details Date Type Department Care Team Description 08/12/2018 Refill Department of [facility] Internal Michelle Taylor R.N. Med Refill Medicine in [place], [place] [address] [place] [address] Social History Tobacco Use [...] Visit Cardiovascular Disease Blas Peck M.D. [address] [place], [place] [phone] (Wo rk) documented as of this encounter Visit Diagnoses Not on filedocumented in this encounter Additional Health Concerns Assessment Noted Time PHQ-9 Depression Total Score: 5 08/11/2018 9:14 AM CDT documented as of this encounter Care Teams Chemistry Technologist Relationship Specialty Start Date End Date Franco Molina M.D. PCP - General 09/25/16 07/27/19 documented as of this encounter
--- OUTSIDE RECORDS SUMMARY | 2022-02-17 12:21 | XMS_ITS | Encounter Summary ---
:1950 Author Organization [facility] Address [address] [place] [address] Care Team Providers Name Role Phone Franco Molina M.D. Primary Care Provider Reason for Visit Reason Comments Care Coordination - Follow up Encounter Details Date Type Department Care Team Description 10/07/2018 Patient Outreach Department of Michelle Taylor Visualization Developer rdination - Community Internal R, R.N. Follow up Medicine in [address] [phone] Social History Tobacco Use Types [...] encounter Progress Notes Michelle Taylor, R.N. - 10/07/2018 2:25 PM CDT SUBJECTIVE REASON FOR VISIT Follow up on Elvis Dawkins participation in the Adult Care Coordination program. HISTORY OF PRESENT ILLNESS Summary of the discussion: Elvis shares that he stopped his antibiotics that Dr. Molina prescribed last week for his finger. He notes he had four doses left. I provided education on why he should continue with the medication and he states I decided to stop them. He was not aware of his cardiology appointment tomorrow in [place]. We reviewed the time and place of the appointment, Elvis expresses gratitude for the reminder. He will make this appointment tomorrow. He shares his blood sugars have been in the 300's. I shared my concern that if he did not make dietary changes that his A1c would not decrease. We spoke about ways in which he could experiment with dietary changes. He notes that he does have food stamps and he needs to bring the card in for Dr. Molina to sign. He will drop that off tomorrow to be filled out. He also notes he would like to increase his walking. He is going to wait until after his cardiology appointment to see how his heart it. Goals Addressed This Visit's Progress Patient Stated [...] have, by calling the Call Center at [phone], or calling your Pulmonary Nurse Practitioner, Michelle Taylor RN, at [phone]. If you have the online Portal, send a message to your provider regarding any concerns you may have. During non-office hours you can be directed to the ExpertRN line where a nurse can evaluate your symptoms for urgency and recommend appropriate follow up and care by calling [phone]. For medical emergencies requiring immediate attention, call 911 or proceed to your nearest emergencydepartment. The Emergency Department at [facility] is open 24 hours a [...] these sick day guidelines. ASSESSMENT/PLAN Next contact: day(s) by Phone Call. Discussion items for the next contact include: Blood sugars, cardiology appointment, exercise The following portions of the patient's history were updated as appropriate: education. The patient was instructed to contact the wound care technician with any questions or concerns and statedunderstanding of the information provided. documented in this encounter Plan of Treatment Upcoming Encounters Date Type Specialty Care Team Description 04/23/2022 Office Visit Cardiovascular Disease Blas Peck M.D. [address] [place] [phone] (Wo ) documented as of this encounter Visit Diagnoses Not on filedocumented in this encounter Additional Health Concerns Assessment Noted Time PHQ-9 Depression Total Score: 4 09/23/2018 10:37 AM CD T documented as of this encounter Care Teams Natural Sciences Professor Relationship Specialty Start Date End Date Franco Molina M.D. PCP - General 09/25/16 07/27/19 documented as of this encounter
--- OUTSIDE RECORDS SUMMARY | 2022-02-17 12:21 | XMS_ITS | Encounter Summary ---
:1950 Author Organization [facility] Address [address] [place] [address] Care Team Providers Name Role Phone Franco Molina M.D. Primary Care Provider Reason for Visit Reason Comments Care Coordination - Follow up Encounter Details Date Type Department Care Team Description 08/04/2018 Patient Outreach Department of Michelle Taylor Assembler Movement rdination - Community Internal R, R.N. Follow up Medicine in [address] [phone] Social History Tobacco Use Types [...] encounter Progress Notes Michelle Taylor, R.N. - 08/04/2018 9:19 AM CDT SUBJECTIVE REASON FOR VISIT Follow up on Elvis Dawkins participation in the Adult Care Coordination program. HISTORY OF PRESENT ILLNESS Summary of the discussion: Elvis shares with me today that his highest blood sugar was 243 and his lowest was 196. He does not give me specifics on when he is taking his blood sugars. We spoke about ways he could decrease his numbers. He feels now that it is nice out he will be outside more and be active. He does share with me his bladder and bowel still hurt but he is wondering if this is something thatis normal for him. We reviewed his stool culture results and I shared with him that all tests came back normal. He does note that when he is busy such as this past weekend when he had is granddaughtersbirthday parties and Thursday he didn't notice the pain as much. Elvis tells me that living in his apartment is currently depressing, we spoke about options for different living arrangements. We spoke about him looking into different living arrangements and this is something he would like to work on this week. He shares he has a smart phone to look up different places and he is ready. We spoke about barriers with finding different living arrangements and he could not identify any barriers at this time. Goals Addressed Most Recent Patient Stated ??? Exercise (pt-stated) On track (08/04/2018) Would like to start using his exercise bike daily. ??? Weight loss (pt-stated) On track (08/04/2018) Patient would like to loose 24 pounds by the end of September. Other ??? Follow your action plan for Diabetes On track (08/04/2018) It is important to keep regular follow ups with your Primary Doctor. Talk with your doctor???s clinic nurse during office hours about any concerns you may have, by calling the Call Center at [phone], or calling your Chief Compliance Officer, Michelle Taylor RN, at [phone]. If you have the online Portal, send a message to your provider regarding any concerns you may have. During non-office hours you can be directed to the ExpertRN line where a nurse can evaluate your symptoms for urgency and recommend appropriate follow up and care by calling [phone]. For medical emergencies requiring immediate attention, call 911 or proceed to your nearest emergencydepartment. The Emergency Department at [facility] is open 24 hours a day, seven [...] breathing. ??? Use Emergency plan On track (08/04/2018) Emergency Care: Hypoglycemia Seek Emergency care for [...] ??? Use Sick day plan On track (08/04/2018) Sick Day Guidelines Illness places stress on [...] these sick day guidelines. ASSESSMENT/PLAN Next contact: 8 day(s) by Phone Call. Discussion items for the next contact include: Living arrangements, blood sugars, exercise The following portions of the patient's history were updated as appropriate: education. The patient was instructed to contact the floor care technician with any questions or concerns and statedunderstanding of the information provided. documented in this encounter Plan of Treatment Upcoming Encounters Date Type Specialty Care Team Description 04/23/2022 Office Visit Cardiovascular Disease Blas Peck M.D. [address] [place] [phone] ([facility]) documented as of this encounter Visit Diagnoses Not on filedocumented in this encounter Additional Health Concerns Assessment Noted Time PHQ-9 Depression Total Score: 7 04/01/2018 1:32 PM FREIGHT RATE SPECIALIST documented as of this encounter Care Teams Picc Nurse Relationship Specialty Start Date End Date Franco Molina M.D. PCP - General 09/25/16 07/27/19 documented as of this encounter
--- OUTSIDE RECORDS SUMMARY | 2022-02-17 12:21 | XMS_ITS | Encounter Summary ---
:1950 Author Organization [facility] Address [address] [place] [address] Care Team Providers Name Role Phone Franco Molina M.D. Primary Care Provider Reason for Visit Reason Comments Med Refill Encounter Details Date Type Department Care Team Description 08/17/2018 Refill Department of [facility] Torey Molina M.D. Med Refill Internal Medicine in [address] [place] [address] [address] [facility] [place] [address] Social History Tobacco Use [...] Cardiovascular Disease Blas Peck M.D. [address] [facility] [place] [phone] (Wo rk) documented as of this encounter Visit Diagnoses Not on filedocumented in this encounter Additional Health Concerns Assessment Noted Time PHQ-9 Depression Total Score: 5 08/11/2018 9:14 AM CDT documented as of this encounter Care Teams Area Development Manager Relationship Specialty Start Date End Date Franco Molina M.D. PCP - General 09/25/16 07/27/19 documented as of this encounter
--- OUTSIDE RECORDS SUMMARY | 2022-02-17 12:21 | XMS_ITS | Encounter Summary ---
:1950 Author Organization [facility] Address [address] [place] [address] Care Team Providers Name Role Phone Franco Molina M.D. Primary Care Provider Reason for Referral Outpatient (Routine) - Closed Specialty Diagnoses / Procedures Referred By Contact Refer red To Contact Family Medicine Diagnoses Annual Medicare Examination Return Franco Molina M.D. [facility] [address] [facility] [address] [place] [address] Referral ID Status Reason Start Date Expiration Date Visits Requ ested Visits Authorized [id number] Closed 08/06/2018 08/06/2019 1 1 Encounter Details Date Type Department Care Team Description 08/06/2018 Orders Only Department of Marley Garcia, Annual Med [facility] Internal R.N. Examination Return Medicine in [address] (Primary Dx) [address] [address] [place], [place] [phone] (Work) [phone] Social History Tobacco Use Types Packs/Day Years [...] Visit Cardiovascular Disease Blas Peck M.D. [address] [place] [phone] (Wo rk) Scheduled Referrals Name Type Priority Associated Diagnoses Order S chedule Family Medicine Outpatient Referral Routine Annual Medicare Ex pected: nurse visit Examination Return 9 (clinic) (Approximate), Expires: 08/06/2021 documented as of this encounter Visit Diagnoses Diagnosis Annual Medicare Examination Return - Stacey stefani documented in this encounter Additional Health Concerns Assessment Noted Time PHQ-9 Depression Total Score: 7 04/01/2018 1:32 PM TEXTILE BROKER documented as of this encounter Care Teams Communications Strategist Relationship Specialty Start Date End Date Franco Molina M.D. PCP - General 09/25/16 07/27/19 documented as of this encounter
--- OUTSIDE RECORDS SUMMARY | 2022-02-17 12:21 | XMS_ITS | Encounter Summary ---
:1950 Author Organization [facility] Address [address] [place] [address] Care Team Providers Name Role Phone Franco Molina M.D. Primary Care Provider Reason for Visit Reason Comments Diarrhea Appointment Request (Routine) - Closed Specialty Diagnoses / Procedures Referred By Contact Refer red To Contact Community Internal Medicine Referral ID Status Reason Start Date Expiration Date Visits Requ ested Visits Authorized [id number] Closed 07/12/2018 07/12/2019 1 1 Encounter Details Date Type Department Care Team Description 07/16/2018 Office Visit Department of Family Lynne Vargas Apn ea Sleep Obstructive (Primary Dx); Brayden Vang M.D. Coronary Arterial Bypass Graft Status Po st Personal History; Clinic, in [place] [address] 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 Hyperglycemic (HCC); [place], [place] Polyp Colon Adenomatous Pers onal History; [address] [address] Change In Bowel Habit; [place], [place] [phone] Diarrhea; [phone] (Work) Pain Generalized Abdominal; [phone] Obesity Body Ma ss Index 30-39.9 Adult; (Fax) Nicotine Depend ence Other Tobacco Product With Other Nicotine Induced Disorder Social History Tobacco Use Types Packs/Day [...] Sign Reading Time Taken Comments Blood Pressure 122/78 07/16/2018 2:28 PM CDT Pulse 72 07/16/2018 2:28 PM CDT Temperature 36.7 ??C (98.1 ??F) 07/16/2018 2:28 PM CDT Respiratory Rate 16 07/16/2018 2:28 PM CDT Oxygen Saturation - - Inhaled Oxygen Concentration - - Weight 102 kg (224 lb 3.3 oz) 07/16/2018 2:28 PM CDT Height - - Body Mass Index 34.1 05/28/2018 10:05 AM MARKET BASKET MAKER documented in this encounter Progress Notes Lynne Vargas M.D. - 07/16/2018 2:30 PM CDT CHIEF COMPLAINT/REASON FOR VISIT Multiple issues HISTORY OF PRESENT ILLNESS This 68-year old male presents to clinic secondary to multiple issues. He arranged the appointment secondary to having watery stools with flecks following his colonoscopy. The symptoms improved for a period of time but they have returned. He has had longstanding bloating worse over the last several years. He is not sure if it is related to anything he eats, but he tries to avoid going out to restaurants secondary to the frequent urgency with his stooling. His colonoscopy revealed polyps and he has arecheck planned for 3 years. He continues to smoke his pipe, 1 bowl, each day. He is not short of breath. He is having no palpitations. He would like to have his recent laboratory evaluation reviewed. He usually receives a letter from his primary care provider but this did not occur with his last lab evaluation. He has known diabetes and is not following his diet as closely as he could. He is taking his medications as prescribed. EMR reviewed. CURRENT MEDICATIONS Current Outpatient Prescriptions: ??? aspirin 81 mg chewable tablet, Chew 1 tablet daily., Disp: , Rfl: ??? atorvastatin (LIPITOR) 20 mg tablet, Take 1 tablet (20 mg total) by mouth at bedtime., Disp: 90 tablet, Rfl: 3 ??? blood sugar diagnostic (glucose blood) strips, 1 test daily. Use to test blood sugar daily. Whatever is covered by insurance. Dx:E11.9, Disp: 100 strip, Rfl: 11 ??? blood-glucose meter [facility], Dispense glucose meter, test strips and lancets covered by the patientinsurance. Test 2 times per day., Disp: , Rfl: ??? busPIRone (BUSPAR) 10 mg tablet, Take 2 tablets (20 mg total) by mouth 3 (three) times a day., Disp: 540 tablet, Rfl: 3 ??? CONTOUR [...] morning., Disp: 90 capsule, Rfl: 3 ??? glimepiride (AMARYL) 4 mg tablet, Take 2 tablets (8 mg total) by mouth daily with breakfast., Disp: 180 tablet, Rfl: 3 ??? linagliptin (TRADJENTA) 5 mg tablet, Take 1 tablet [...] every5 (five) minutes as needed for chest pain. Up to 3 doses & call 911, Disp: 25 tablet, Rfl: 11 ??? oxybutynin (DITROPAN-XL) 10 mg 24 hr tablet, Take 1 tablet (10 mg total) by mouth at bedtime., Disp: 90 tablet, Rfl: 3 ??? PEPPERMINT OIL ORAL, Take 1 capsule by mouth daily., Disp: , Rfl: ??? raNITIdine (ZANTAC) 150 mg tablet, Take 1 tablet (150 mg total) by mouth 2 (two) times a day., Disp: 180 tablet, Rfl: 3 ??? tamsulosin (FLOMAX) 0.4 mg 24 hr capsule, Take 1 capsule (0.4 mg total) by mouth daily., Disp: 90 capsule, Rfl: 3 ??? fluticasone (for_FLONASE) 50 mcg/actuation nasal spray, Administer 2 sprays into each nostril daily. (Patient not taking: Reported on 06/18/2018 ), Disp: 16 g, Rfl: 2 ??? ipratropium (ATROVENT) 0.03 % nasal spray, Administer 2 sprays into each nostril 3 (three) timesa day as needed for rhinitis. (Patient not taking: Reported on 06/18/2018 ), Disp: 30 mL, Rfl: 2 ??? polyethylene glycol (for_MIRALAX) 17 gram powder packet, Take 17 g by mouth daily., Disp: , Rfl: ??? PSYLLIUM HUSK (METAMUCIL ORAL), Take 1.7 g by mouth 2 (two) times a day., Disp: , Rfl: Allergies Allergen Reactions ??? Sertraline Other (see comments) ??? Sulfamethoxazole-Trimethoprim Swelling REVIEW OF SYSTEMS Negative review of major organ systems apart from that noted in the HPI and past medical surgical history. Past Medical History: Diagnosis Date ??? Anxiety 01/03/2016 ??? Apnea Sleep Obstructive 08/28/2016 ??? Benign Prostatic Hyperplasia Hypertrophy With Obstruction 01/03/2016 ??? Body Mass Index 34.0 To 34.9 Adult 01/03/2016 ??? Callus Flint Foot 04/25/2016 ??? Congestion Nasal 01/03/2016 ??? [...] History: Procedure Laterality Date ??? CHOLECYSTECTOMY ??? COLONOSCOPY 07/27/2015 Four colon polyps. Repeat in 3 years. [facility]. ??? COLONOSCOPY W/ POLYPECTOMY 05/11/[address]/[facility]. Dr. Marito davis prep, quality poor. Repeat in 1yr due to poor prep. ??? CORONARY ARTERY BYPASS GRAFTS X 4 05/28/2014 ??? INGUINAL HERNIA REPAIR Bilateral PREVENTIVE SERVICES Tobacco 1 bowl of pipe tobacco each day with no plans for cessation Colon screen 06/28/[address] Bowman at [facility] revealing polyps with recheck plan for 3 years Depression no Asthma no Lipids 08/21/2017 Tdap 08/31/2015 Pneumovax 06/18/2018 Prevnar 05/29/2016 Influenza 02/04/2018 SOCIAL HISTORY Alcohol none Caffeine 1 couple coffee each day with rare soda and occasional tea Family History Problem Relation Age of Onset ??? Deep vein thrombosis Father ??? PE - Pulmonary embolism Father ??? Hypertension Mother ??? Diabetes Mother ??? Cataracts Mother ??? Irritable bowel syndrome Mother ??? Colon cancer Mother ??? Irritable bowel syndrome Grandfather ??? Parkinson disease Sister ??? Parkinsons disease Sister ??? Prostate cancer Brother Vitals: 07/16/18 1428 BP: 122/78 Patient Position: Sitting Pulse: 72 Temp: 36.7 ??C Resp: 16 Weight: 101.7 kg TempSrc: Temporal PHYSICAL EXAM General: Neatly dressed well groomed. HEENT: Ears: TMs are cope, good visualization of landmarks. Nose: Mucosal membranes pink and moist. Oral: No exudates. Teeth in fair condition. No pharyngeal erythema. Neck: Range of motion consistent with patient's stated age body habitus. Trachea midline. Lymph nodes: No cervical adenopathy. Thyroid: No thyroid masses, tenderness or enlargement. Heart: Regular rate and rhythm. No clicks, rubs or murmurs. Lungs: Clear to auscultation. No palpable chest wall masses. Abdomen: Soft, nontender, bowel sounds present, no organomegaly although exam is limited secondary to body habitus. ASSESSMENT/PLAN 1. Change bowel habit with diarrhea after colonoscopy revealing colonic polyps superimposed on generalized episodic abdominal pain-evaluation in process 2. Sleep apnea at baseline 3. Coronary artery bypass status clinically stable 4. Obesity-progressive 5. 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 Nicotine dependence with no plans for cessation Supportive measures discussed in detail. Reviewed all of his recent labs in detail. Will recommend stool cultures given the above health history. Will also check endomysial antibodies and tissue transglutaminase antibodies given the episodic duration and symptomatology. EMR documentation is completed for these laboratory evaluations. Would recommend lifestyle changes including following his diabetic diet more closely as well as nicotine cessation. Follow up with his regular health care provider is in process. Risks and benefits of medications discussed. All questions answered. Signs and symptoms tolead to emergent evaluation are reviewed. See the medication reconciliation and preventive services.He will consider his options. Spent 15 of the 25 minute visit in discussion. documented in this encounter Plan of Treatment Upcoming Encounters Date Type Specialty Care Team Description 04/23/2022 Office Visit Cardiovascular Disease Blas Peck M.D. [address] [place] [phone] (Wo rk) documented as of this encounter Procedures Procedure Name Priority Date/Time Associated Comments Diagnosis ENTERIC PATHOGENS Routine 07/25/2018 11:00 Change In Bowel Res ults for this CULTURE, STOOL AM CDT Habit procedure are in the results section. ENDOMYSIAL ABS (IGA), S Routine 07/16/2018 3:29 Change In Clarisa l Results for this PM CDT Habit procedure are in Diarrhea the results Pain Generalized section. Abdominal TISSUE TRANSGLUTAMINASE Routine 07/16/2018 3:29 Change In Clarisa l Results for this (TTG) AB, IGA, S PM CDT Habit procedure are in Diarrhea the results Pain Generalized section. Abdominal documented in this encounter Results Enteric Pathogens Culture, Stool (07/25/2018 11:00 AM CDT) [facility] Method Time Signature Enteric No growth of Salmonella, Shigella, Yersinia, Campyloba cter, 07/30/2018 [facility] Pathogens or Aeromonas. 8:27 AM CDT LABORATORIES - Culture, [facility] Specimen Anatomical Collection Method Collection Time Receive d Time (Source) Location / / Volume Laterality Stool (Stool) 07/25/2018 11:00 07/26/2018 AM CDT 10:02 PM CDT Comment: Specimen Source Site: Stool Lynne Vargas M.D. LAB MICROBIOLOGY - GENERAL O RDERABLES Performing Organization Address City/[facility] Phon e Number [facility] - [address] [place], [place] [address] [facility] tTG (Tissue Transglutaminase), Antibody, IgA (07/16/2018 3:29 PM CDT) [facility] Method Time Signature Tissue <0.5 <15.0 07/20/2018 [facility] Transglutaminase Ab, U/mL 12:22 PM CDT HEALTH IgA, S SYSTEM- [facility] Specimen Anatomical Collection Method Collection Time Receive d Time (Source) Location / / Volume Laterality Blood (Blood, 07/16/2018 3:29 PM 07/21/19 19 Venous) CDT 10:51 AM CDT Lynne Vargas M.D. LAB BLOOD ADD-ON Performing Organization Address City/[facility] Phon e Number [facility]- [address] [place], [place] [address] [facility] Endomysial Antibodies (IgA) (07/16/2018 3:29 PM CDT) [facility] Method Time Signature Endomysial Ab Negative Negative 07/21/2018 [facility] 12:55 PM CDT LABORATORIES - [facility] Comment: A negative serum IgA endomysial antibody is usually seen in normal individuals, however a diagnosis of nori ac disease, dermatitis herpetiformis and other gluten sensitive disorders can not be completely excluded, as this test may be negative in a subset of darek viduals with these disorders. If the clinical suspicion for one of these diso rders is high, recommend further testing for gluten sensitivity as indica eloisa by the Celiac Disease Comprehensive Cook ([facility]). In addition serum IgA endomysial antibody may also be negative in gluten-sensitive patients (with celiac disease, dermatitis herpetiformis or other gluten-sensitive disorders), who adhere to a strict glute n-free diet. ----ADDITIONAL INFORMATION---- This test has been modified from the man ufacturer's instructions. Its performance characteristics were determi alondra by [facility] in a manner consistent with CLIA requirements. This test has not been cleared or approved by the U.S. Food and Drug Administration . Specimen Anatomical Collection Method Collection Time Receive d Time (Source) Location / / Volume Laterality Blood (Blood, 07/16/2018 3:29 PM 07/20/19 19 8:45 Venous) CDT AM CDT Lynne Vargas M.D. LAB BLOOD ADD-ON Performing Organization Address City/State/ZIP Code Phon e Number [facility] LABORATORIES - [address] documented in this encounter Visit Diagnoses Diagnosis Apnea Sleep Obstructive - Primary Coronary Arterial Bypass Graft Status Po st Personal History 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 Hyperglycemic (HCC) Polyp Colon Adenomatous Personal History Change In Bowel Habit Diarrhea Pain Generalized Abdominal Obesity Body Mass Index 30-39.9 Adult Nicotine Dependence Other Tobacco Produc t With Other Nicotine Induced Disorder documented in this encounter Additional Health Concerns Assessment Noted Time PHQ-9 Depression Total Score: 7 04/01/2018 1:32 PM MARKET BASKET MAKER documented as of this encounter Care Teams Front End Web Developer Relationship Specialty Start Date End Date Franco Molina M.D. PCP - General 09/25/16 07/27/19 documented as of this encounter
--- OUTSIDE RECORDS SUMMARY | 2022-02-17 12:22 | XMS_ITS | Encounter Summary ---
:1950 Author Organization [facility] Address [address] [place] [address] Care Team Providers Name Role Phone Franco Molina M.D. Primary Care Provider Encounter Details Date Type Department Care Team Description 05/28/2018 Clinical Communication Department of Moises Segundo [facility], [address] [address] [place], [place] [phone] (Work) [phone] Social History Tobacco Use Types Packs/Day Years Used Date Smoking Tobacco: Never Smokeless Tobacco: Never Alcohol Habits Answer Date Recorded How often [...] this encounter Miscellaneous Notes Telephone Encounter - Mandi Soriano L.P.N. - 05/28/2018 11:49 AM OPERATIONS RESEARCH MANAGER SUBJECTIVE CHIEF COMPLAINT / REASON FOR CALL No chief complaint on file. INFORMATION DISCUSSED Paperwork for colonoscopy filled out and faxed to Rohini [facility]AY Disposition/Recommendation: patient to schedule appointment Information: not applicable Caller agreeable to plan of care: yes The following references were used: provider Moises Padilla ATIONS RESEARCH MANAGER documented in this encounter Plan of Treatment Upcoming Encounters Date Type Specialty Care Team Description 04/23/2022 Office Visit Cardiovascular Disease Blas Peck M.D. [address] [place] [phone] (Wo rk) documented as of this encounter Visit Diagnoses Not on filedocumented in this encounter Additional Health Concerns Assessment Noted Time PHQ-9 Depression Total Score: 7 04/01/2018 1:32 PM OPERATIONS RESEARCH MANAGER documented as of this encounter Care Teams Broadcast Director Operations Relationship Specialty Start Date End Date Franco Molina M.D. PCP - General 09/25/16 07/27/19 documented as of this encounter
--- OUTSIDE RECORDS SUMMARY | 2022-02-17 12:22 | XMS_ITS | Encounter Summary ---
:1950 Author Organization [facility] Address [address] [place] [address] Care Team Providers Name Role Phone Franco Molina M.D. Primary Care Provider Reason for Visit Reason Comments Care Coordination - Follow up Encounter Details Date Type Department Care Team Description 06/03/2018 Patient Outreach Department of Family Michelle Taylor are Coordination - Medicine, [place], RMagaly [facility], in [place], [place] [address] [place] [address] Social History Tobacco Use Types [...] encounter Progress Notes Michelle Taylor RMichelleN. - 06/03/2018 11:24 AM CST Call placed to Elvis for care coordination follow up. Left message to return my call. GYN documented in this encounter Plan of Treatment Upcoming Encounters Date Type Specialty Care Team Description 04/23/2022 Office Visit Cardiovascular Disease Blas Peck M.D. [address] [place], [place] [phone] (Wo rk) documented as of this encounter Visit Diagnoses Not on filedocumented in this encounter Additional Health Concerns Assessment Noted Time PHQ-9 Depression Total Score: 7 04/01/2018 1:32 PM OB GYN documented as of this encounter Care Teams Accounting Manager Relationship Specialty Start Date End Date Franco Molina M.D. PCP - General 09/25/16 07/27/19 documented as of this encounter
--- OUTSIDE RECORDS SUMMARY | 2022-02-17 12:22 | XMS_ITS | Encounter Summary ---
:1950 Author Organization [facility] Address [address] [place] [address] Care Team Providers Name Role Phone Franco Molina M.D. Primary Care Provider Encounter Details Date Type Department Care Team Description 07/12/2018 Nurse Triage Department of Family Rosa M Nuno, Medicine, [facility], [place], [place] [address] [place] [address] Social History Tobacco Use Types Packs/Day Years [...] Visit Cardiovascular Disease Blas Peck M.D. [address] [place] [phone] (Wo rk) documented as of this encounter Visit Diagnoses Not on filedocumented in this encounter Additional Health Concerns Assessment Noted Time PHQ-9 Depression Total Score: 7 04/01/2018 1:32 PM 3D MODELER documented as of this encounter Care Teams Precision Agriculture Specialist Relationship Specialty Start Date End Date Franco Molina M.D. PCP - General 09/25/16 07/27/19 documented as of this encounter
--- OUTSIDE RECORDS SUMMARY | 2022-02-17 12:22 | XMS_ITS | Encounter Summary ---
:1950 Author Organization [facility] Address [address] [place] [address] Care Team Providers Name Role Phone Franco Molina M.D. Primary Care Provider Encounter Details Date Type Department Care Team Description 06/02/2018 Medication Management Department of Family Medication Management Medicine in [facility] (Primary Dx) [place] [address] [address] Social History Tobacco Use Types [...] PM CDT documented as of this encounter Consult Notes Marilee Srinivasan, Pharm.D. - 06/02/2018 9:30 AM CST Medication Therapy Management eConsult/Chart Review SUBJECTIVE Elvis Dawkins is a 68 y.o. male, who was referred by Michelle Taylor RN Personal Banking Advisor for aMedication Therapy Management (MTM) Chart Review for the purpose of a medication review as a part ofCare Coordination. Outpatient Medications Prior to Visit Medication Sig Dispense Refill ??? aspirin 81 mg chewable tablet Chew 1 tablet daily. ??? atorvastatin (LIPITOR) 20 mg tablet Take 1 tablet (20 mg total) by mouth at bedtime. 90 tablet 3 ??? blood sugar diagnostic (glucose blood) strips 1 test daily. Use to test blood sugar daily. Whatever is covered by insurance. Dx:E11.9 100 strip 11 ??? blood-glucose meter [facility] Dispense glucose meter, test strips and lancets covered by the patient insurance. Test 2 times per day. ??? busPIRone (BUSPAR) 10 mg tablet Take 2 tablets (20 mg total) by mouth 2 (two) times a day. 360 tablet 3 ??? ciprofloxacin (CIPRO) 500 mg tablet Take 1 tablet (500 mg total) by mouth 2 (two) times a day for 10 days. 20 tablet 0 ??? CONTOUR TEST STRIPS strips USE ONE STRIP TO CHECK GLUCOSE ONCE DAILY BEFORE BREAKFAST 100 strip 4 ??? docusate sodium (for_COLACE) 100 mg capsule Take 100 mg by mouth daily as needed. ??? FLUoxetine (PROzac) 40 mg capsule Take 1 capsule (40 mg total) by mouth every morning. 90 capsule 3 ??? fluticasone (for_FLONASE) 50 mcg/actuation nasal spray Administer 2 sprays into each nostril daily. 16 g 2 ??? glimepiride (AMARYL) 4 mg tablet Take 2 tablets (8 mg total) by mouth daily with breakfast. 180 tablet 3 ??? ipratropium (ATROVENT) 0.03 % nasal spray Administer 2 sprays into each nostril 3 (three) times a day as needed for rhinitis. 30 mL 2 ??? linagliptin (TRADJENTA) 5 mg tablet Take 1 tablet (5 mg total) by mouth daily. 90 tablet 3 ??? lisinopril (PRINIVIL,ZESTRIL) 2.5 mg tablet TAKE ONE TABLET BY MOUTH IN THE MORNING 90 tablet 3 ??? metoprolol tartrate (for_LOPRESSOR) 25 mg tablet Take 1 tablet (25 [...] ORAL Take 1 capsule by mouth daily. ??? polyethylene glycol (for_MIRALAX) 17 gram powder [...] by mouth daily. 90 capsule 3 No facility-administered medications prior to visit. The following portions of the patient's history were reviewed and updated as appropriate: allergies,current medications, family history, medical history, social history, surgical history and problem list. OBJECTIVE Wt Readings from Last 3 Encounters: 05/28/18 103.3 kg 03/15/18 101.8 kg 02/04/18 102.8 kg Pulse Readings from Last 3 Encounters: 05/28/18 66 03/15/18 73 02/04/18 73 BP Readings from Last 3 Encounters: 05/28/18 121/68 03/15/18 121/67 02/04/18 122/75 Estimated Creatinine Clearance: 81.8 mL/min (by C-G formula based on SCr of 1.02 mg/dL). Lab Results Component Value Date NA 135 03/12/2018 K 5.0 03/12/2018 CL 98 03/12/2018 HCO3 28 03/12/2018 CREATININE 1.02 03/12/2018 EGFR 76 03/12/2018 BUN 10 03/12/2018 ANIONGAP 9 03/12/2018 GLUCOSE 198 (H) 03/12/2018 CALCIUM 9.7 03/12/2018 Lab Results Component Value Date ALT 13 03/12/2018 AST 19 03/12/2018 ALKPHOS 111 08/21/2017 BILITOT 0.6 08/21/2017 Lab Results Component Value Date HGBA1C 9.2 (H) 03/12/2018 HGBA1C 8.2 (H) 12/10/2017 HGBA1C 8.0 (H) 08/21/2017 Assessment Assessment: Pharmacotherapy was reviewed today with a patient-centered approach for indication, effectiveness, safety and convenience. Medications are appropriately dosed based on current renal and hepatic function. Drug-Drug interactions of clinical significance include: Aspirin/fluoxetine- increased risk of bleeding or bruising. Aspirin/glimepiride/linagliptin/ciprofloxacin-increased risk of hypoglycemia. Ciprofloxacin/fluoxetine-increased risk of QT interval prolongation; ciprofloxacin is a short duration medication which reduces the risk of this drug interaction in need for QT interval monitoring. 1. Diabetes: Patient has Type 2 Diabetes that is uncontrolled on current therapy of glimepiride 8mg once daily and Tradjenta 5mg once daily. Patient???s most recent A1C was above goal of less than 7.5%and blood glucose readings are not available with goal of fasting and premeal 90-130 mg/dL and 2 hour post-prandial less than 150 mg/dL. Per review of patient's chart looks like he had been unable to tolerate metformin in the extended release formulation due to abdominal discomfort. Patient is currently at the maximum recommended dose for both glimepiride and Tradjenta. Patient is currently enrolled in care coordination to assist with blood glucose control. 2. Hypertension: Patient???s blood pressure is controlled with goal of less than 130/80 mmHg per ACC/AHA guidelines on current therapy of metoprolol 50mg twice daily and lisinopril 2.5mg once daily. Recommendations: This patient was not personally interviewed or examined for this chart review. The history and examination findings are based on the clinical documentation provided and/or discussion with referring provider/care boarder steam who had personally interviewed and examined the patient. Application of these or other clinical recommendations should always be subject to provider discretion and clinical discussions with patient going forward. 1. Recommend assessing patient for signs of bleeding or bruising. 2. Recommend assessing patient for frequency or concerns of hypoglycemia. 3. Recommend monitoring blood glucose readings to assist with obtaining blood glucose control. Above recommendations were communicated to the cardiac care nurse via an electronically routed chart. SPECIALIST documented in this encounter Plan of Treatment Upcoming Encounters Date Type Specialty Care Team Description 04/23/2022 Office Visit Cardiovascular Disease Blas Peck M.D. [address] [place] [phone] (Wo ) documented as of this encounter Visit Diagnoses Diagnosis Medication Management Issue - Primary documented in this encounter Additional Health Concerns Assessment Noted Time PHQ-9 Depression Total Score: 7 04/01/2018 1:32 PM SKIN SPECIALIST documented as of this encounter Care Teams High School Science Teacher Relationship Specialty Start Date End Date Franco Molina M.D. PCP - General 09/25/16 07/27/19 documented as of this encounter
--- OUTSIDE RECORDS SUMMARY | 2022-02-17 12:22 | XMS_ITS | Encounter Summary ---
:1950 Author Organization [facility] Address [address] [place] [address] Care Team Providers Name Role Phone Franco Molina M.D. Primary Care Provider Reason for Visit Reason Comments Care Coordination - pt follow up Encounter Details Date Type Department Care Team Description 07/12/2018 Patient Outreach Department of Michelle Tayloro rdination - Community Internal R, R.N. pt follow up Medicine in [address] [phone] Social History Tobacco Use Types [...] encounter Progress Notes Michelle Taylor R.N. - 07/12/2018 9:37 AM CDT Call placed to Elvis to follow up with his call to the clinic today. He notes he is still having loose stools two weeks out from his colonoscopy. He spoke to the triage line and is scheduled for an appointment on Thursday. He has no further questions or concerns. documented in this encounter Plan of Treatment Upcoming Encounters Date Type Specialty Care Team Description 04/23/2022 Office Visit Cardiovascular Disease Blas Peck M.D. [address] [place] [phone] (Wo rk) documented as of this encounter Visit Diagnoses Not on filedocumented in this encounter Additional Health Concerns Assessment Noted Time PHQ-9 Depression Total Score: 7 04/01/2018 1:32 PM AIR FORCE SENIOR OFFICER documented as of this encounter Care Teams Asphalt Plant Laborer Relationship Specialty Start Date End Date Franco Molina M.D. PCP - General 09/25/16 07/27/19 documented as of this encounter
--- OUTSIDE RECORDS SUMMARY | 2022-02-17 12:22 | XMS_ITS | Encounter Summary ---
:1950 Author Organization [facility] Address [address] [place] [address] Care Team Providers Name Role Phone Franco Molina M.D. Primary Care Provider Reason for Visit Reason Comments Care Coordination ( June ) Encounter Details Date Type Department Care Team Description 07/11/2018 Patient Outreach Department of [facility] Fluid Power Mechanic rdination ( [facility] Internal R, R.N. June ) Medicine in [place], [place] [address] [place] [address] Social History Tobacco Use Types [...] Visit Cardiovascular Disease Blas Peck M.D. 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 PCP - General 09/25/16 07/27/19 documented as of this encounter
--- OUTSIDE RECORDS SUMMARY | 2022-02-17 12:22 | XMS_ITS | Encounter Summary ---
:1950 Author Organization [facility] Address [address] [place] [address] Care Team Providers Name Role Phone Franco Molina M.D. Primary Care Provider Reason for Visit Reason Comments Med Refill Encounter Details Date Type Department Care Team Description 05/21/2018 [facility]ill [facility] Torey Molina M.D. Med Refill Internal Medicine in [address] [place] [address] [address] [facility] [place] [phone] Social History Tobacco Use [...] Visit Cardiovascular Disease Blas Peck M.D. [address] [place], [place] [phone] (Wo rk) documented as of this encounter Visit Diagnoses Not on filedocumented in this encounter Additional Health Concerns Assessment Noted Time PHQ-9 Depression Total Score: 7 04/01/2018 1:32 PM FARMWORKER DAIRY documented as of this encounter Care Teams Kiln Maintenance Relationship Specialty Start Date End Date Franco Molina M.D. PCP - General 09/25/16 07/27/19 documented as of this encounter
--- OUTSIDE RECORDS SUMMARY | 2022-02-17 12:22 | XMS_ITS | Encounter Summary ---
:1950 Author Organization [facility] Address [address] [place] [address] Care Team Providers Name Role Phone Franco Molina M.D. Primary Care Provider Reason for Visit Reason Comments Care Coordination - Follow up Encounter Details Date Type Department Care Team Description 07/01/2018 Patient Outreach Department of Family Michelle Taylor are Coordination - Medicine, [place] RMagaly [facility], in [address] [phone] Social History Tobacco Use [...] of this encounter Progress Notes Michelle Taylor RMagaly - 07/01/2018 9:20 AM CDT Call placed to Elvis for care coordination follow up. Left message for Elvis to return my call. documented in this encounter Plan of Treatment Upcoming Encounters Date Type Specialty Care Team Description 04/23/2022 Office Visit Cardiovascular Disease Blas Peck M.D. [address] [place] [address] [place] [phone] (Wo rk) documented as of this encounter Visit Diagnoses Not on filedocumented in this encounter Additional Health Concerns Assessment Noted Time PHQ-9 Depression Total Score: 7 04/01/2018 1:32 PM COMPUTER NUMERICAL CONTROL OPERATOR documented as of this encounter Care Teams Oil Well Fishing Tool Technician Relationship Specialty Start Date End Date Franco Molina M.D. PCP - General 09/25/16 07/27/19 documented as of this encounter
--- OUTSIDE RECORDS SUMMARY | 2022-02-17 12:22 | XMS_ITS | Encounter Summary ---
:1950 Author Organization [facility] Address [address] [place] [address] Care Team Providers Name Role Phone Franco Molina M.D. Primary Care Provider Reason for Visit Reason Comments Care Coordination - Follow up Encounter Details Date Type Department Care Team Description 05/13/2018 Patient Outreach Department of Family Michelle Taylor are Coordination - Medicine, [place] RMagaly [facility], in [address] [phone] Social History Tobacco Use Types [...] encounter Progress Notes Michelle Taylor, R.N. - 05/13/2018 9:39 AM CST SUBJECTIVE REASON FOR VISIT Follow up on Elvis Dawkins participation in the Adult Care Coordination program. HISTORY OF PRESENT ILLNESS Summary of the discussion: Elvis shares will me when I call that he has been thinking he needs to go to the ED or to see a doctor concerning his bladder, prostate, and paraphimosis. This has been an ongoing concern of his, and feels like the doctors are not listening. He states it feels like my body is full of something. He states he is frustrated that the doctors send him to specialist and they are unable to find anything wrong. He is concerned he his is having pain and he feels something is causing his pain. He does notehe has anxiety and it does get worse when he is in his apartment with nothing to do. I suggested he make an appointment with another provider if he was unhappy with his current provider to address the above issues. He is in agreement with this plan. An appointment was made with Moises on May 28at 10:15. He notes this time and date work well. He tells me he has checked his blood sugars a few time. He states that his highest was 350 and lowest was 126. We reviewed signs and symptoms of hypoglycemia and hyperglycemia he denies symptoms of either. He is wondering if the diabetes could be contributed to the bladder pain, I suggested that he rev iew this question at his appointment with Moises. Elvis states he will check his blood sugar this next week in the morning daily so we can review them next during our call. We reviewed his goal to start exercising, we spoke about how exercise would help with his mood and anxiety and help towards his weight loss goal. He states he did some exercise but it did get painfulwith his bladder and prostate. Goals Addressed Most Recent Patient Stated ??? Exercise (pt-stated) On track (05/13/2018) Would like to start using his exercise bike daily. ??? Weight loss (pt-stated) No change (05/13/2018) Patient would like to loose 24 pounds by the end of September. Other ??? Follow your action plan for Diabetes On track (05/13/2018) It is important to keep regular follow ups with your Primary Doctor. Talk with your doctor???s clinic nurse during office hours about any concerns you may have, by calling the Call Center at [phone], or calling your District Administrative Assistant, Michelle Taylor RN, at [phone]. If you have the online Portal, send a message to your provider regarding any concerns you may have. During non-office hours you can be directed to the ExpertRN line where a nurse can evaluate your symptoms for urgency and recommend appropriate follow up and care by calling [phone]. For medical emergencies requiring immediate attention, call 911 or proceed to your nearest emergencydepartment. The Emergency Department at [facility] is open 24 hours a day, [...] breathing. ??? Use Emergency plan On track (05/13/2018) Emergency Care: Hypoglycemia Seek Emergency care for [...] ??? Use Sick day plan On track (05/13/2018) Sick Day Guidelines Illness places stress on [...] for the next contact include: blood sugars, exercise, appointment at [facility]. The following portions of the patient's history were updated as appropriate: education. The patient was instructed to contact the workforce investment act career manager with any questions or concerns and statedunderstanding of the information provided. ARCH/PROGRAM DIRECTOR documented in this encounter Plan of Treatment Upcoming Encounters Date Type Specialty Care Team Description 04/23/2022 Office Visit Cardiovascular Disease Blas Peck M.D. [address] [place] [phone] (Wo rk) documented as of this encounter Visit Diagnoses Not on filedocumented in this encounter Additional Health Concerns Assessment Noted Time PHQ-9 Depression Total Score: 7 04/01/2018 1:32 PM RESEARCH/PROGRAM DIRECTOR documented as of this encounter Care Teams Rigging And Controls Aircraft Mechanic Relationship Specialty Start Date End Date Franco Molina M.D. PCP - General 09/25/16 07/27/19 documented as of this encounter
--- OUTSIDE RECORDS SUMMARY | 2022-02-17 12:22 | XMS_ITS | Encounter Summary ---
:1950 Author Organization [facility] Address [address] [place] [address] Care Team Providers Name Role Phone Franco Molina M.D. Primary Care Provider Reason for Visit Reason Comments Care Coordination - Systematic Case Review Encounter Details Date Type Department Care Team Description 06/25/2018 Patient Outreach Department of Family Michelle Taylor are Coordination - Medicine, [facility] Review [address] [phone] Social History Tobacco Use Types [...] encounter Progress Notes Michelle Taylor RMichelleN. - 06/25/2018 3:35 PM CDT Admission Date: 04/22/2018 Admission Goal: A1c less than 7.5% Two Chronic Conditions: Patient Active Problem List Diagnosis ??? 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 Coronary Artery Disease [place] Vessel ??? Anxiety ??? Apnea Sleep Obstructive ??? Benign Prostatic Hyperplasia Hypertrophy With Obstruction ??? Body Mass Index 34.0 To 34.9 Adult ??? Callus [place] Foot ??? Constipation ??? Congestion Nasal ??? [...] Maxillary ??? Paraphimosis ??? Hernia Inguinal Left Last SCR: 05/17/2018 Next Contact: 07/01/2018 ED/Hospitalizations Since Admission: 0 The patient was reviewed in SCR today. SCR team recommends continue plan of care. Recommendations from Psychiatry (Dr. [...] Visit Cardiovascular Disease Blas Peck M.D. [address] [place] [phone] (Wo rk) documented as of this encounter Visit Diagnoses Not on filedocumented in this encounter Additional Health Concerns Assessment Noted Time PHQ-9 Depression Total Score: 7 04/01/2018 1:32 PM SEARCH PLANNER documented as of this encounter Care Teams Lookback Coordinator Relationship Specialty Start Date End Date Franco Molina M.D. PCP - General 09/25/16 07/27/19 documented as of this encounter
--- OUTSIDE RECORDS SUMMARY | 2022-02-17 12:22 | XMS_ITS | Encounter Summary ---
:1950 Author Organization [facility] Address [address] [place] [address] Care Team Providers Name Role Phone Franco Molina M.D. Primary Care Provider Reason for Visit Reason Comments Care Coordination ( May ) Encounter Details Date Type Department Care Team Description 06/10/2018 Patient Outreach Department of [facility] Michelle Taylor are Coordination ( [facility] RM[facility] ) Clinic, in [place], [place] [address] [place] [address] Social History Tobacco Use Types [...] Visit Cardiovascular Disease Blas Peck M.D. 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 PCP - General 09/25/16 07/27/19 documented as of this encounter
--- OUTSIDE RECORDS SUMMARY | 2022-02-17 12:22 | XMS_ITS | Encounter Summary ---
:1950 Author Organization [facility] Address [address] [place] [address] Care Team Providers Name Role Phone Franco Molina M.D. Primary Care Provider Reason for Visit Reason Onset Date Comments Medicare Annual Wellness Visit Subsequent 06/24/2018 Encounter Details Date Type Department Care Team Description 06/24/2018 Clinical Communication Department of Bridget Benavides Annual Family Medicine, M, R.N. Wellness Visit [facility], Subsequent in [facility] ([address] [phone] Social History Tobacco Use Types [...] Telephone Encounter - Bridget Benavides R.N. - 06/24/2018 4:18 PM CDT Called patient to discuss scheduling a Medicare Annual Wellness Visit. Patient interested, transferred to scheduling to make appt. documented in this encounter Plan of Treatment Upcoming Encounters Date Type Specialty Care Team Description 04/23/2022 Office Visit Cardiovascular Disease Blas Peck M.D. [address] [place] [address] [place] [phone] (Wo rk) documented as of this encounter Visit Diagnoses Not on filedocumented in this encounter Additional Health Concerns Assessment Noted Time PHQ-9 Depression Total Score: 7 04/01/2018 1:32 PM RIBBON CLEANER documented as of this encounter Care Teams Belt Fixer Relationship Specialty Start Date End Date Franco Molina M.D. PCP - General 09/25/16 07/27/19 documented as of this encounter
--- OUTSIDE RECORDS SUMMARY | 2022-02-17 12:22 | XMS_ITS | Encounter Summary ---
:1950 Author Organization [facility] Address [address] [place] [address] Care Team Providers Name Role Phone Franco Molina M.D. Primary Care Provider Reason for Visit Reason Comments Care Coordination - Follow up Encounter Details Date Type Department Care Team Description 07/15/2018 Patient Outreach Department of Michelle Taylor Manager Dialysis rdination - Community Internal R, R.N. Follow up Medicine in [address] [phone] Social History Tobacco Use Types [...] encounter Progress Notes Michelle Taylor, R.N. - 07/15/2018 10:28 AM CDT SUBJECTIVE REASON FOR VISIT Follow up on Elvis Dawkins participation in the Adult Care Coordination program. HISTORY OF PRESENT ILLNESS Summary of the discussion: Elvis shares with me today the lowest blood sugar he has had was 167, and his highest was 237. He does say he has been walking outside, a few days this past week. He notes he was leaving his apartment in a hurry this morning so he hadn't checked it yet today. We spoke about ways in which he might lower his blood sugars. He tells me he has been watching his portions more closely and not eating as much sugar so he feels they should be lower. We reviewed his upcoming appointment tomorrow. He has no questions or concerns today. Goals Addressed Most Recent Patient Stated ??? Exercise (pt-stated) On track (07/15/2018) Would like to start using his exercise bike daily. ??? Weight loss (pt-stated) No change (07/15/2018) Patient would like to loose 24 pounds by the end of September. Other ??? Follow your action plan for Diabetes On track (07/15/2018) It is important to keep regular follow ups with your Primary Doctor. Talk with your doctor???s clinic nurse during office hours about any concerns you may have, by calling the Call Center at [phone], or calling your Pharmacy Data Analyst, Michelle Taylor RN, at [phone]. If you have the online Portal, send a message to your provider regarding any concerns you may have. During non-office hours you can be directed to the ExpertRN line where a nurse can evaluate your symptoms for urgency and recommend appropriate follow up and care by calling [phone]. For medical emergencies requiring immediate attention, call 911 or proceed to your nearest emergencydepartment. The Emergency Department at [facility] is open 24 hours a [...] breathing. ??? Use Emergency plan On track (07/15/2018) Emergency Care: Hypoglycemia Seek Emergency care for [...] ??? Use Sick day plan On track (07/15/2018) Sick Day Guidelines Illness places stress on [...] items for the next contact include: Blood sugar, exercise The following portions of the patient's history were updated as appropriate: education. The patient was instructed to contact the administrator health care facility with any questions or concerns and statedunderstanding of the information provided. documented in this encounter Plan of Treatment Upcoming Encounters Date Type Specialty Care Team Description 04/23/2022 Office Visit Cardiovascular Disease Blas Peck M.D. [address] [place] [phone] (Wo rk) documented as of this encounter Visit Diagnoses Not on filedocumented in this encounter Additional Health Concerns Assessment Noted Time PHQ-9 Depression Total Score: 7 04/01/2018 1:32 PM HEAD REFRIGERATION ENGINEER documented as of this encounter Care Teams Lokie Engineer Relationship Specialty Start Date End Date Franco Molina M.D. PCP - General 09/25/16 07/27/19 documented as of this encounter
--- OUTSIDE RECORDS SUMMARY | 2022-02-17 12:22 | XMS_ITS | Encounter Summary ---
:1950 Author Organization [facility] Address [address] [place] [address] Care Team Providers Name Role Phone Franco Molina M.D. Primary Care Provider Reason for Visit Reason Comments Med Refill Encounter Details Date Type Department Care Team Description 06/18/2018 Refill Department of [facility] Franco Molina M.D. Med Refill Medicine, [facility], ut [facility] [address] [place] [address] [address] [place] [address] [facility] [phone] Social History Tobacco Use Types Packs/Day Years [...] Visit Cardiovascular Disease Blas Peck M.D. [address] [place] [phone] (Wo rk) documented as of this encounter Visit Diagnoses Not on filedocumented in this encounter Additional Health Concerns Assessment Noted Time PHQ-9 Depression Total Score: 7 04/01/2018 1:32 PM AUTOMATIC CHIEF documented as of this encounter Care Teams Chief Librarian Branch Or Department Relationship Specialty Start Date End Date Franco Molina M.D. PCP - General 09/25/16 07/27/19 documented as of this encounter
--- OUTSIDE RECORDS SUMMARY | 2022-02-17 12:22 | XMS_ITS | Encounter Summary ---
:1950 Author Organization [facility] Address [address] [place] [address] Care Team Providers Name Role Phone Franco Molina M.D. Primary Care Provider Reason for Visit Reason Onset Date Comments Colonoscopy Date 05/28/2018 Encounter Details Date Type Department Care Team Description 05/28/2018 Clinical Communication Department of Clark Bowman onoscopy Date Family Medicine, S, M.D. [facility], [address] [facility] [phone] [place] [address] [place] (Work) [phone] Social History Tobacco Use Types Packs/Day [...] this encounter Miscellaneous Notes Telephone Encounter - Loly Paula L.PMagaly - 05/28/2018 3:48 PM CST Noted INS WINDER Telephone Encounter - Rohini Baugh - 05/28/2018 2:41 PM CST PHYSICIAN: Mendoza Bowman REASON FOR CALL: Preop 06/18/18 Jesse S: SURG DATE: 06/28/18 Colonoscopy Celestina B: REQUEST FOR SURG: SAMUEL A: ANESTHESIA: R: HOSP WILL CALL WITH TIME INS WINDER documented in this encounter Plan of Treatment Upcoming Encounters Date Type Specialty Care Team Description 04/23/2022 Office Visit Cardiovascular Disease Blas Peck M.D. [address] [place] [phone] (Wo rk) documented as of this encounter Visit Diagnoses Not on filedocumented in this encounter Additional Health Concerns Assessment Noted Time PHQ-9 Depression Total Score: 7 04/01/2018 1:32 PM SEQUINS WINDER documented as of this encounter Care Teams Spine Specialist Relationship Specialty Start Date End Date Franco Molina M.D. PCP - General 09/25/16 07/27/19 documented as of this encounter
--- OUTSIDE RECORDS SUMMARY | 2022-02-17 12:22 | XMS_ITS | Encounter Summary ---
:1950 Author Organization [facility] Address [address] [place] [address] Care Team Providers Name Role Phone Franco Molina M.D. Primary Care Provider Reason for Visit Reason Comments Care Coordination - Follow up Encounter Details Date Type Department Care Team Description 06/03/2018 Patient Outreach Department of Family Michelle Taylor are Coordination - Medicine, [place] Lakeshia RMichelleNMichelle [facility], in [address] [phone] Social History Tobacco Use Types [...] encounter Progress Notes Michelle Taylor, R.N. - 06/03/2018 1:21 PM CST SUBJECTIVE REASON FOR VISIT Follow up on Elvis Dawkins participation in the Adult Care Coordination program. HISTORY OF PRESENT ILLNESS Summary of the discussion: Elvis shares the following blood sugars with me today. 232, 262, 199, 188. He is currently not watching what he is eating or counting carbs. He will continue to monitor and record blood sugars. We reviewed his appointment with Moises. He shares that he has his colonoscopy scheduled for June. He was also put on antibiotics and he feel this has helped some of his urinary symptoms. He has no questions or concerns regarding this appointment. He hasn't utilized his exercise bike, he tells me he likes to exercise outside and the weather is preventing him from doing that. He does share he has found a new place to have coffee. He goes to [employer] and visits with people andhas enjoyed that the last few days. Goals Addressed Most Recent Patient Stated ??? Exercise (pt-stated) No change (06/03/2018) Would like to start using his exercise bike daily. ??? Weight loss (pt-stated) No change (06/03/2018) Patient would like to loose 24 pounds by the end of September. Other ??? Follow your action plan for Diabetes On track (06/03/2018) It is important to keep regular follow ups with your Primary Doctor. Talk with your doctor???s clinic nurse during office hours about any concerns you may have, by calling the Call Center at [phone], or calling your Tung Nut Grower, Michelle Taylor RN, at [phone]. If you have the online Portal, send a message to your provider regarding any concerns you may have. During non-office hours you can be directed to the ExpertRN line where a nurse can evaluate your symptoms for urgency and recommend appropriate follow up and care by calling [phone]. For medical emergencies requiring immediate attention, call 911 or proceed to your nearest emergencydepartment. The Emergency Department at [facility] is open 24 hours a [...] breathing. ??? Use Emergency plan On track (06/03/2018) Emergency Care: Hypoglycemia Seek Emergency care for [...] ??? Use Sick day plan On track (06/03/2018) Sick Day Guidelines Illness places stress on [...] items for the next contact include: Blood sugars The following portions of the patient's history were updated as appropriate: education. The patient was instructed to contact the care worker with any questions or concerns and statedunderstanding of the information provided. IRER FINISHED METAL documented in this encounter Plan of Treatment Upcoming Encounters Date Type Specialty Care Team Description 04/23/2022 Office Visit Cardiovascular Disease Blas Peck M.D. [address] [place] [phone] (Wo ) documented as of this encounter Visit Diagnoses Not on filedocumented in this encounter Additional Health Concerns Assessment Noted Time PHQ-9 Depression Total Score: 7 04/01/2018 1:32 PM REPAIRER FINISHED METAL documented as of this encounter Care Teams Political Anthropologist Relationship Specialty Start Date End Date Franco Molina M.D. PCP - General 09/25/16 07/27/19 documented as of this encounter
--- OUTSIDE RECORDS SUMMARY | 2022-02-17 12:22 | XMS_ITS | Encounter Summary ---
:1950 Author Organization [facility] Address [address] [place] [address] Care Team Providers Name Role Phone Franco Molina M.D. Primary Care Provider Reason for Visit Reason Comments Care Coordination - Follow up Encounter Details Date Type Department Care Team Description 06/10/2018 Patient Outreach Department of Family Michelle Taylor are Coordination - Medicine, [place] Lakeshia RMagaly [facility], in [address] [phone] Social History Tobacco Use [...] encounter Progress Notes Michelle Taylor, R.N. - 06/10/2018 2:10 PM CST SUBJECTIVE REASON FOR VISIT Follow up on Elvis Dawkins participation in the Adult Care Coordination program. HISTORY OF PRESENT ILLNESS Summary of the discussion: Elvis gives me two blood sugar readings today. He states this morning it was 179 and yesterday it was 156. He tells me they have always been under two hundred. When asked what his blood sugars meant tohim, he states sometimes they are much higher. He shares that he hasn't checked his blood sugar everyday because he is having abdominal pain. The abdominal pain is not new. He will be having a colonoscopy June 28. He is wondering if that will show the piece of plastic fork he swallowed two years ago. Elvis is waiting to see what his appointment on June 18 brings. I asked him what he was hoping to get out of the appointment. He couldn't give me clear answer, just wants his abdominal pain and urinary pain addressed. Encouraged him to write down the most important issues he would like to discuss atthe appointment and he tells me he will do this. Goals Addressed Most Recent Patient Stated ??? Exercise (pt-stated) No change (06/10/2018) Would like to start using his exercise bike daily. ??? Weight loss (pt-stated) No change (06/10/2018) Patient would like to loose 24 pounds by the end of September. Other ??? Follow your action plan for Diabetes On track (06/10/2018) It is important to keep regular follow ups with your Primary Doctor. Talk with your doctor???s clinic nurse during office hours about any concerns you may have, by calling the Call Center at [phone], or calling your Pet Care Technician, Michelle Taylor RN, at [phone]. If you have the online Portal, send a message to your provider regarding any concerns you may have. During non-office hours you can be directed to the ExpertRN line where a nurse can evaluate your symptoms for urgency and recommend appropriate follow up and care by calling [phone]. For medical emergencies requiring immediate attention, call 911 or proceed to your nearest emergencydepartment. The Emergency Department at [facility] is open 24 hours a day, seven [...] breathing. ??? Use Emergency plan On track (06/10/2018) Emergency Care: Hypoglycemia Seek Emergency care for [...] ??? Use Sick day plan On track (06/10/2018) Sick Day Guidelines Illness places stress on [...] The patient was instructed to contact the medicare nurse with any questions or concerns and statedunderstanding of the information provided. E INSURANCE SALES REPRESENTATIVE documented in this encounter Plan of Treatment Upcoming Encounters Date Type Specialty Care Team Description 04/23/2022 Office Visit Cardiovascular Disease Blas Peck M.D. [address] [place] [phone] (Wo rk) documented as of this encounter Visit Diagnoses Not on filedocumented in this encounter Additional Health Concerns Assessment Noted Time PHQ-9 Depression Total Score: 7 04/01/2018 1:32 PM TITLE INSURANCE SALES REPRESENTATIVE documented as of this encounter Care Teams Health Information Assistant Relationship Specialty Start Date End Date Franco Molina M.D. PCP - General 09/25/16 07/27/19 documented as of this encounter
--- OUTSIDE RECORDS SUMMARY | 2022-02-17 12:22 | XMS_ITS | Encounter Summary ---
:1950 Author Organization [facility] Address [address] [place] [address] Care Team Providers Name Role Phone Franco Molina M.D. Primary Care Provider Reason for Visit Reason Comments Care Coordination - Follow up Encounter Details Date Type Department Care Team Description 07/02/2018 Patient Outreach Department of Family Michelle Taylor are Coordination - Medicine, [place] Lakeshia RMagaly [facility], in [address] [phone] Social History Tobacco Use Types [...] encounter Progress Notes Michelle Taylor RMagaly - 07/02/2018 9:58 AM CDT Call placed to Elvis for care coordination follow up. Left message for Elvis to return my call. documented in this encounter Plan of Treatment Upcoming Encounters Date Type Specialty Care Team Description 04/23/2022 Office Visit Cardiovascular Disease Blas Peck M.D. [address] [place] [address] MARQUEZ Owen [phone] (Wo rk) documented as of this encounter Visit Diagnoses Not on filedocumented in this encounter Additional Health Concerns Assessment Noted Time PHQ-9 Depression Total Score: 7 04/01/2018 1:32 PM HAND TRIMMER documented as of this encounter Care Teams Fruit Packer Relationship Specialty Start Date End Date Franco Molina M.D. PCP - General 09/25/16 07/27/19 documented as of this encounter
--- OUTSIDE RECORDS SUMMARY | 2022-02-17 12:22 | XMS_ITS | Encounter Summary ---
:1950 Author Organization [facility] Address [address] [place] [address] Care Team Providers Name Role Phone Franco Molina M.D. Primary Care Provider Reason for Visit Reason Comments Care Coordination - Follow up Encounter Details Date Type Department Care Team Description 07/08/2018 Patient Outreach Department of Family Michelle Taylor are Coordination - Medicine, [place] R, RMagaly [facility], in [address] [phone] Social History Tobacco Use [...] encounter Progress Notes Michelle Taylor, R.N. - 07/08/2018 1:43 PM CDT SUBJECTIVE REASON FOR VISIT Follow up on Elvis Dawkins participation in the Adult Care Coordination program. HISTORY OF PRESENT ILLNESS Summary of the discussion: Elvis is watching his two grandkids when I call today. He states he is reassured by his colonoscopy, but states the doctor was grumpy and didn't tell himmuch. He states the nurse called him to let him know he had 6 polyps. Elvis did not have his blood sugar log with him but tells me he remembers the blood sugars 145, 157,208. He hasn't done his exercise bike but does note he has been doing a lot of walking. Elvis will continue to monitor and record his blood sugars this next week. Goals Addressed Most Recent Patient Stated ??? Exercise (pt-stated) On track (07/08/2018) Would like to start using his exercise bike daily. ??? Weight loss (pt-stated) No change (07/08/2018) Patient would like to loose 24 pounds by the end of September. Other ??? Follow your action plan for Diabetes On track (07/08/2018) It is important to keep regular follow ups with your Primary Doctor. Talk with your doctor???s clinic nurse during office hours about any concerns you may have, by calling the Call Center at [phone], or calling your Rn Navigator, Michelle Taylor RN, at [phone]. If you have the online Portal, send a message to your provider regarding any concerns you may have. During non-office hours you can be directed to the ExpertRN line where a nurse can evaluate your symptoms for urgency and recommend appropriate follow up and care by calling [phone]. For medical emergencies requiring immediate attention, call 911 or proceed to your nearest emergencydepartment. The Emergency Department at [facility] is open 24 hours [...] breathing. ??? Use Emergency plan On track (07/08/2018) Emergency Care: Hypoglycemia Seek Emergency care for [...] ??? Use Sick day plan On track (07/08/2018) Sick Day Guidelines Illness places stress on [...] items for the next contact include: Blood sugars. The following portions of the patient's history were updated as appropriate: education. The patient was instructed to contact the patient care assistant with any questions or concerns and statedunderstanding of the information provided. documented in this encounter Plan of Treatment Upcoming Encounters Date Type Specialty Care Team Description 04/23/2022 Office Visit Cardiovascular Disease Blas Peck M.D. [address] [place] [phone] (Wo rk) documented as of this encounter Visit Diagnoses Not on filedocumented in this encounter Additional Health Concerns Assessment Noted Time PHQ-9 Depression Total Score: 7 04/01/2018 1:32 PM RADIOLOGIST DIAGNOSTIC documented as of this encounter Care Teams Skid Road Man Relationship Specialty Start Date End Date Franco Molina M.D. PCP - General 09/25/16 07/27/19 documented as of this encounter
--- OUTSIDE RECORDS SUMMARY | 2022-02-17 12:22 | XMS_ITS | Encounter Summary ---
:1950 Author Organization [facility] Address [address] [place] [address] Care Team Providers Name Role Phone Franco Molina M.D. Primary Care Provider Encounter Details Date Type Department Care Team Description 07/12/2018 Clinical Communication Department of Nabeel Molina M.D. [facility] Internal [address] [place] [address], [facility] in [address] [facility] [id number] [place] [phone] Social History Tobacco Use Types Packs/Day [...] Telephone Encounter - Michelle Taylor R.N. - 07/12/2018 9:47 AM CDT Noted. Call placed to Elvis to confirm he had his questions and concerns answered. Patient spoke to triage line. He has an appointment scheduled for Thursday. He has no further questions or concerns today. Telephone Encounter - Carolyn Mcgraw - 07/12/2018 9:07 AM CDT Reason for Communication: Patient is calling he had a colonoscopy about 2 weeks ago and he is like he is still doing his prep. He said he said it is spotty and watery. Please call him back Current Can Nursing/Provider leave a detailed message: yes you can Did the patient refuse triage through Nurse line? (for symptom based concerns):yes I did have him talk to RN Line Action Needed: please call him back Name of Medication (if relevant): na documented in this encounter Plan of Treatment Upcoming Encounters Date Type Specialty Care Team Description 04/23/2022 Office Visit Cardiovascular Disease Blas Peck M.D. [address] [place] [phone] (Wo rk) documented as of this encounter Visit Diagnoses Not on filedocumented in this encounter Additional Health Concerns Assessment Noted Time PHQ-9 Depression Total Score: 7 04/01/2018 1:32 PM NEUROPSYCHIATRIST documented as of this encounter Care Teams Speech Language Pathologist Relationship Specialty Start Date End Date Franco Molina M.D. PCP - General 09/25/16 07/27/19 documented as of this encounter
--- OUTSIDE RECORDS SUMMARY | 2022-02-17 12:22 | XMS_ITS | Encounter Summary ---
:1950 Author Organization [facility] Address [address] [place] [address] Care Team Providers Name Role Phone Franco Molina M.D. Primary Care Provider Reason for Visit Reason Comments Care Coordination - Systematic Case Review Encounter Details Date Type Department Care Team Description 05/14/2018 Patient Outreach Department of Family Michelle Taylor are Coordination - Medicine, [facility] Review [address] [phone] Social History Tobacco Use Types Packs/Day Years [...] encounter Progress Notes Michelle Taylor RMichelleN. - 05/14/2018 2:01 PM CST Admission Date:04/22/2018 Admission Goal: A1c less than 7.5% Two Chronic Conditions: Patient Active Problem List Diagnosis ??? 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 Coronary Artery Disease ??? Anxiety ??? Apnea Sleep Obstructive ??? Benign Prostatic Hyperplasia Hypertrophy With Obstruction ??? Body Mass Index 34.0 To 34.9 Adult ??? Callus [facility] Foot ??? Constipation ??? Congestion Nasal ??? [...] Paraphimosis ??? Hernia Inguinal Left Last SCR: 04/26/2018 Next Contact: 05/20/2018 ED/Hospitalizations Since Admission: 0 The patient was reviewed in SCR today. SCR team recommends Continue to obtain blood sugar readings. Recommendations from Psychiatry (Dr. Bart Rai) and [...] discussed as part of care coordination activities. KET WINDER HELPER documented in this encounter Plan of Treatment Upcoming Encounters Date Type Specialty Care Team Description 04/23/2022 Office Visit Cardiovascular Disease Blas Peck M.D. [address] [place] [phone] (Wo rk) documented as of this encounter Visit Diagnoses Not on filedocumented in this encounter Additional Health Concerns Assessment Noted Time PHQ-9 Depression Total Score: 7 04/01/2018 1:32 PM BLANKET WINDER HELPER documented as of this encounter Care Teams Brim Shaper Relationship Specialty Start Date End Date Franco Molina M.D. PCP - General 09/25/16 07/27/19 documented as of this encounter
--- OUTSIDE RECORDS SUMMARY | 2022-02-17 12:22 | XMS_ITS | Encounter Summary ---
:1950 Author Organization [facility] Address [address] [place] [address] Care Team Providers Name Role Phone Franco Molina M.D. Primary Care Provider Encounter Details Date Type Department Care Team Description 06/30/2018 Clinical Department of Radha Communication Otorhinolaryngology in [place], [place] L.P.N. [address] [place] [address] [phone] [place] [phone] Social History Tobacco Use Types Packs/Day Years [...] Miscellaneous Notes Telephone Encounter - Loly Paula L.PMichelleNMichelle - 07/01/2018 9:54 AM CDT Patient is aware of results and recommendations. HM and Reminder have been updated in chart. Telephone Encounter - Clark Bowman M.D. - 06/30/2018 7:19 PM CDT Surveillance colonoscopy with adequate prep due to a personal history of colon polyps. 6 adenomas were found and removed, all < 1 cm in size. Based on current guidelines, I recommend that he have his next screening colonoscopy in 3 years. Electronically signed by: Clark Bowman M.D. 06/30/18 7:19 PM Telephone Encounter - VickronnieMarley L.P.N. - 06/30/2018 8:22 AM CDT A) COLON, TRANSVERSE, POLYPECTOMY: 1. Tubular adenoma 2. Negative for high grade dysplasia 3. Per the colonoscopy report: ? a. Polyp size: medium ? b. Resection: Complete ? c. Retrieval: Complete B) COLON, RIGHT, POLYPECTOMY: 1. Tubular adenoma(s) 2. Negative for high grade dysplasia 3. Per the colonoscopy report: ? a. Polyp size: medium ? b. Resection: Complete ? c. Retrieval: Complete C) COLON, TRANSVERSE, POLYPECTOMY: 1. Tubular adenoma 2. Negative for high grade dysplasia 3. Per the colonoscopy report: ? a. Polyp size: medium ? b. Resection: Complete ? c. Retrieval: Complete D) COLON, DESCENDING, POLYPECTOMY: Stool only E) COLON, DESCENDING, POLYPECTOMY: 1. Tubular adenoma 2. Negative for high grade dysplasia 3. Per the colonoscopy report: ? a. Polyp size: medium ? b. Resection: Complete ? c. Retrieval: Complete F) COLON, SIGMOID, POLYPECTOMY: 1. Tubular adenoma 2. Negative for high grade dysplasia 3. Per the colonoscopy report: ? a. Polyp size: medium ? b. Resection: Complete ? c. Retrieval: Complete G)?COLON, SIGMOID, POLYPECTOMY: 1. Tubular adenoma 2. Negative for high grade dysplasia 3. Per the colonoscopy report: ? a. Polyp size: medium ? b. Resection: Complete ? c. Retrieval: Complete documented in this encounter Plan of Treatment Upcoming Encounters Date Type Specialty Care Team Description 04/23/2022 Office Visit Cardiovascular Disease Blas Peck M.D. [address] [place] [phone] (Wo rk) documented as of this encounter Visit Diagnoses Not on filedocumented in this encounter Additional Health Concerns Assessment Noted Time PHQ-9 Depression Total Score: 7 04/01/2018 1:32 PM BEAN WEIGHER documented as of this encounter Care Teams Laborer Shellfish Processing Relationship Specialty Start Date End Date Franco Molina M.D. PCP - General 09/25/16 07/27/19 documented as of this encounter
--- OUTSIDE RECORDS SUMMARY | 2022-02-17 12:22 | XMS_ITS | Encounter Summary ---
:1950 Author Organization [facility] Address [address] [place] [address] Care Team Providers Name Role Phone Franco Molina M.D. Primary Care Provider Reason for Visit Reason Comments Care Coordination - Follow up Encounter Details Date Type Department Care Team Description 06/24/2018 Patient Outreach Department of Family Michelle Taylor are Coordination - Medicine, [place] R, RMagaly [facility], in [address] [phone] Social History Tobacco Use Types [...] encounter Progress Notes Michelle Taylor, R.N. - 06/24/2018 9:24 AM CDT SUBJECTIVE REASON FOR VISIT Follow up on Elvis Dawkins participation in the Adult Care Coordination program. HISTORY OF PRESENT ILLNESS Summary of the discussion: Elvis reported the following blood sugars: 156, 186, 213. When asked when these were taken he is vague. He states he thinks he might have ate something then tested his blood. I asked for next week if he could take his blood sugars the first thing in the morning before he eats. He agrees with this plan. Elvis tells me that the last couple of days have been good. When asked why he thought the last couple of days were good he tells me that he accomplished a lot of things. He had done his laundry, walkedup and down the steps at his apartment. He says that he thinks he felt better because he kept moving. He tells me he did not use his exercise bike this week. He has a colonoscopy on Thursday. He is still waiting on a time so he can arrange a coach tour driver. He states if he doesn't hear he will drive himself. I shared that they would not do the procedure if he didn't have someone to drive him. He stated he called yesterday and they would call him back today with a time. Goals Addressed Most Recent Patient Stated ??? Exercise (pt-stated) No change (06/24/2018) Would like to start using his exercise bike daily. ??? Weight loss (pt-stated) No change (06/24/2018) Patient would like to loose 24 pounds by the end of September. Other ??? Follow your action plan for Diabetes On track (06/24/2018) It is important to keep regular follow ups with your Primary Doctor. Talk with your doctor???s clinic nurse during office hours about any concerns you may have, by calling the Call Center at [phone], or calling your Hrbp, Michelle Taylor RN, at [phone]. If you have the online Portal, send a message to your provider regarding any concerns you may have. During non-office hours you can be directed to the ExpertRN line where a nurse can evaluate your symptoms for urgency and recommend appropriate follow up and care by calling [phone]. For medical emergencies requiring immediate attention, call 911 or proceed to your nearest emergencydepartment. The Emergency Department at [facility] is open 24 hours a day, [...] breathing. ??? Use Emergency plan On track (06/24/2018) Emergency Care: Hypoglycemia Seek Emergency care for [...] ??? Use Sick day plan On track (06/24/2018) Sick Day Guidelines Illness places stress on [...] Discussion items for the next contact include: Colonoscopy, blood sugars The following portions of the patient's history were updated as appropriate: education. The patient was instructed to contact the critical care clinical nurse specialist with any questions or concerns and statedunderstanding of the information provided. documented in this encounter Plan of Treatment Upcoming Encounters Date Type Specialty Care Team Description 04/23/2022 Office Visit Cardiovascular Disease Blas Peck M.D. [address] [place] [phone] ([facility]) documented as of this encounter Visit Diagnoses Not on filedocumented in this encounter Additional Health Concerns Assessment Noted Time PHQ-9 Depression Total Score: 7 04/01/2018 1:32 PM CREDIT CASHIER documented as of this encounter Care Teams Director Funeral Relationship Specialty Start Date End Date Franco Molina M.D. PCP - General 09/25/16 07/27/19 documented as of this encounter
--- OUTSIDE RECORDS SUMMARY | 2022-02-17 12:22 | XMS_ITS | Encounter Summary ---
:1950 Author Organization [facility] Address [address] [place] [address] Care Team Providers Name Role Phone Franco Molina M.D. Primary Care Provider Reason for Visit Reason Comments Care Coordination - Follow up Encounter Details Date Type Department Care Team Description 06/17/2018 Patient Outreach Department of Family Michelle Taylor are Coordination - Medicine, [place] RMag[facility], in [address] [phone] Social History Tobacco Use Types [...] encounter Progress Notes Michelle Taylor, R.N. - 06/17/2018 9:39 AM CST SUBJECTIVE REASON FOR VISIT Follow up on Elvis Dawkins participation in the Adult Care Coordination program. HISTORY OF PRESENT ILLNESS Summary of the discussion: He shares that his blood sugars have been in the mid 100's. He thinks the highest he had was 186. Shiraoes not have his log with him as he is watching his granddaughter today. We spoke about what those numbers mean to him, and he says they are ok. He has not been able to exercise on his bike, because of his abdominal and bladder pain. He tells mario albertoat this had been going on too long and he is suffering. Encouraged Elvis to speak to Dr. Molina about his concerns at his appointment tomorrow. He is in agreement with this plan. He notes he has discuss ed this issue in the past. He does have a colonoscopy scheduled for June 28. Goals Addressed Most Recent Patient Stated ??? Exercise (pt-stated) No change (06/17/2018) Would like to start using his exercise bike daily. ??? Weight loss (pt-stated) No change (06/17/2018) Patient would like to loose 24 pounds by the end of September. Other ??? Follow your action plan for Diabetes On track (06/17/2018) It is important to keep regular follow ups with your Primary Doctor. Talk with your doctor???s clinic nurse during office hours about any concerns you may have, by calling the Call Center at [phone], or calling your Spray Stainer, Michelle Taylor RN, at [phone]. If you have the online Portal, send a message to your provider regarding any concerns you may have. During non-office hours you can be directed to the ExpertRN line where a nurse can evaluate your symptoms for urgency and recommend appropriate follow up and care by calling [phone]. For medical emergencies requiring immediate attention, call 911 or proceed to your nearest emergencydepartment. The Emergency Department at [facility] is open 24 hours a day, [...] breathing. ??? Use Emergency plan On track (06/17/2018) Emergency Care: Hypoglycemia Seek Emergency care for [...] ??? Use Sick day plan On track (06/17/2018) Sick Day Guidelines Illness places stress on [...] Discussion items for the next contact include: Recommendations from Dr. Molina, blood sugars. The following portions of the patient's history were updated as appropriate: education. The patient was instructed to contact the personal carer with any questions or concerns and statedunderstanding of the information provided. FORMER documented in this encounter Plan of Treatment Upcoming Encounters Date Type Specialty Care Team Description 04/23/2022 Office Visit Cardiovascular Disease Blas Peck M.D. [address] [place] [phone] (Wo ) documented as of this encounter Visit Diagnoses Not on filedocumented in this encounter Additional Health Concerns Assessment Noted Time PHQ-9 Depression Total Score: 7 04/01/2018 1:32 PM ROLL FORMER documented as of this encounter Care Teams Window Installation Subcontractor Relationship Specialty Start Date End Date Franco Molina M.D. PCP - General 09/25/16 07/27/19 documented as of this encounter
--- OUTSIDE RECORDS SUMMARY | 2022-02-17 12:22 | XMS_ITS | Encounter Summary ---
:1950 Author Organization [facility] Address [address] [place] [address] Care Team Providers Name Role Phone Franco Molina M.D. Primary Care Provider Reason for Referral Outpatient (Routine) - Closed Specialty Diagnoses / Procedures Referred By Contact Refer red To Contact Family Medicine Diagnoses Polyp Colon Adenomatous Moises Padilla [facility] PMichelleAMichelle-CMichelle [address] [place] [phone] Referral ID Status Reason Start Date Expiration Date Visits Requ ested Visits Authorized [id number] Closed 05/28/2018 05/28/2019 1 1 MACY TECH CUSTOMER SERVICE Reason for Visit Reason Comments Other Habing penis, bladder, prost ate issues but prefers to discuss with Moises versus going into detail deirdre davis display card writer. Encounter Details Date Type Department Care Team Description 05/28/2018 Office Visit Department of Moises Segundo Pr ostatitis (Primary Dx); Medicine, [place] [facility], in [place], [address] [place] [address] [address] [facility] [address] [place], [place] [phone] (Work) [phone] Social History Tobacco Use Types Packs/Day Years [...] Sign Reading Time Taken Comments Blood Pressure 121/68 05/28/2018 10:05 AM PHARMACY TECH CUSTOMER SERVICE Pulse 66 05/28/2018 10:05 AM PHARMACY TECH CUSTOMER SERVICE Temperature 37 ??C (98.6 ??F) 05/28/2018 10:05 AM PHARMACY TECH CUSTOMER SERVICE Respiratory Rate 16 05/28/2018 10:05 AM PHARMACY TECH CUSTOMER SERVICE Oxygen Saturation 98% 05/28/2018 10:05 AM PHARMACY TECH CUSTOMER SERVICE Inhaled Oxygen Concentration - - Weight 103 kg (227 lb 11.8 oz) 05/28/2018 10:05 AM PHARMACY TECH CUSTOMER SERVICE Height 172.7 cm (5' 7.99) 05/28/2018 10:05 AM PHARMACY TECH CUSTOMER SERVICE Body Mass Index 34.64 05/28/2018 10:05 AM PHARMACY TECH CUSTOMER SERVICE documented in this encounter Progress Notes Moises Padilla P.A.-C. - 05/28/2018 10:30 AM CST CHIEF COMPLAINT / REASON FOR VISIT Elvis Dawkins is a 68 y.o. male who presents for evaluation of Other (Habing penis, bladder, prostate issues but prefers to discuss with Moises versus going into detail with display card writer. ). HISTORY OF PRESENT ILLNESS Elvis presents today with multiple issues. He is a patient of Dr. Molina he has multiple issues specifically poorly controlled diabetes. He has a longstanding history of prostatitis. He has been seen byUrology in the past and it seems as though he continues to have problems with his penis and his prostate. He is fairly vague about his symptoms he is uncircumcised and he often pulled his foreskin backbecause the feels more comfortable he says sometimes his penis swells but really isn't as of today. He describes urine that is more foul smelling. He describes some discomfort in his prostate he thinks. He also has a history of an abnormal colonoscopy and last year it was attempted to do again but unfortunately was not able to be performed due to poor prep. It was recommended that he have 2 day prep prior to his repeating the colonoscopy which is to be done this year. Patient Active Problem List Diagnosis ??? 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 Coronary Artery Disease ??? Anxiety ??? Apnea Sleep Obstructive ??? Benign Prostatic Hyperplasia Hypertrophy With Obstruction ??? Body Mass Index 34.0 To 34.9 Adult ??? Callus Seymour Foot ??? Constipation ??? Congestion Nasal ??? [...] Maxillary ??? Paraphimosis ??? Hernia Inguinal Left OBJECTIVE Vitals: 05/28/18 1005 BP: 121/68 Pulse: 66 Resp: 16 Temp: 37 ??C TempSrc: Temporal SpO2: 98% Weight: 103.3 kg Height: 172.7 cm Body mass index is 34.64 kg/m??. PHYSICAL EXAM In general he appears in no acute distress Abdomen is soft and nontender to palpation. Genitalia: Penis is uncircumcised. Foreskin is retracted chronically. There is no real swelling out of the ordinary. No inguinal hernia noted testicles are descended no masses appreciated Rectal exam: Prostate is not enlarged no masses appreciated but is uncomfortable to palpation IMPRESSION / REPORT / PLAN #1 Prostatitis It seems as though he has a prostatitis am going to check a urinalysis and a urine culture I am going to treated with ciprofloxacin to cover for this possibility. #2 Polyp Colon Adenomatous I reviewed his notes from previously Dr. Devi want him to have a follow-up colonoscopy this year inJanuary I will put through an order for another colonoscopy. He has a follow-up coming up with Dr. Molina in a couple weeks so will see if we can get that converted to a preop which could hopefully be then done prior to his upcoming colonoscopy. He is in agreement with this plan will follow up as scheduled. Total time spent with him today was 25 min of which 20 was [id number] coordination of care andcomary Padilla P.A.-C. MACY TECH CUSTOMER SERVICE documented in this encounter Plan of Treatment Upcoming Encounters Date Type Specialty Care Team Description 04/23/2022 Office Visit Cardiovascular Disease Blas Peck M.D. [address] [facility] [place] [phone] (Wo rk) Scheduled Referrals Name Type Priority Associated Diagnoses Order S chedule Primary Care - Outpatient Referral Routine Polyp Colon Expect ed: REGINALDO consult Adenomatous 05/28/2018 (clinic) (Approximate), Expires: 05/28/2021 documented as of this encounter Procedures Procedure Name Priority Date/Time Associated Diagnosis Comme nts URINALYSIS WITH Routine 05/28/2018 10:52 Prostatitis Results for this MICROSCOPIC IF AM PHARMACY TECH CUSTOMER SERVICE procedure are in INDICATED, U the results section. MICROSCOPIC MANUAL Routine 05/28/2018 10:52 Resul ts for this AM PHARMACY TECH CUSTOMER SERVICE procedure are i n the results section. BACTERIAL CULTURE, Routine 05/28/2018 10:52 Prostatitis Resul ts for this AEROBIC + SUSC, AM PHARMACY TECH CUSTOMER SERVICE procedure ar e in URINE the results section. documented in this encounter Results Microscopic Manual (05/28/2018 10:52 AM PHARMACY TECH CUSTOMER SERVICE) Analysis Performed At Patho logist Time Signature White Blood None Seen /hpf 05/28/2018 [facility] Cells 11:15 AM [facility] Comment: ----REFERENCE VALUE---- Males: 0-3 Females: 0-10 Unknown: 0-10 Red Blood Cells None Seen 0 - 2 /hpf 05/28/2018 11:15 AM PHARMACY TECH CUSTOMER SERVICE [facility] [place] Squamous Cells Occ-3 /hpf 05/28/2018 11:15 AM PHARMACY TECH CUSTOMER SERVICE [facility] [place] Specimen Anatomical Collection Method Collection Time Receive d Time (Source) Location / / Volume Laterality Urine 05/28/2018 10:52 05/28/2018 AM PHARMACY TECH CUSTOMER SERVICE 11:14 AM PHARMACY TECH CUSTOMER SERVICE Moises Padilla P.A.-C. LAB URINE ORDERABLES Performing Organization Address City/[facility]/ZIP [facility] Phon e Number [facility] [address] [place] [address] LAB Bacterial Culture, Aerobic + Susc, Urine (05/28/2018 10:52 AM PHARMACY TECH CUSTOMER SERVICE) Analysis Performed At Patho logist Time Signature Bacterial Mixed 05/29/2018 [facility] Culture, luis. 8:16 AM [facility] Aerobic, [facility] Specimen Anatomical Collection Method Collection Time Receive d Time (Source) Location / / Volume Laterality Urine (Urine, 05/28/2018 10:52 05/28/2018 2:20 [place]) AM PHARMACY TECH CUSTOMER SERVICE PM PHARMACY TECH CUSTOMER SERVICE Comment: Specimen Source Site: Urine Mid stream Moises Padilla P.A.-C. LAB MICROBIOLOGY - GENERAL O RDERABLES Performing Organization Address City/[facility]/ZIP Code Phon e Number [facility] [address] [place] [address] LAB (ABNORMAL) Urinalysis with Microscopic if Indicated (05/28/2018 10:52 AM PHARMACY TECH CUSTOMER SERVICE) P athologist Signature Source Midstream 05/28/2018 [facility] 11:14 AM [facility] Clarity Clear Clear 05/28/2018 [facility] 11:14 AM [facility] [employer] LAB Color Yellow 05/28/2018 [facility] 11:14 AM [facility] Comment: ----REFERENCE VALUE---- Colorless Yellow Linda Blood Trace (A) Negative 05/28/2018 11:14 AM [facility] PHARMACY TECH [facility] [place] Nitrite Negative Negative 05/28/2018 11:14 AM [facility] [place] Leukocyte Esterase Negative Negative 05/28/2018 11:14 AM [facility] [place] B Protein Negative mg/dL 05/28/2018 11:14 AM [facility] [place] B Comment: ----REFERENCE VALUE---- Negative Trace Glucose 500 (A) Negative mg/dL 05/28/2018 11:14 AM [facility] [place] [facility] Ketones, QI(U) Negative Negative mg/dL 05/28/2018 11:14 AM [facility] [place] Bilirubin Negative Negative 05/28/2018 11:14 AM [facility] LAB pH 5.5 5.0 - 8.0 05/28/2018 11:14 AM [facility] LAB Specific [place] 1.010 1.001 - 1.035 05/28/2018 11:14 AM [facility] Urobilinogen 0.2 0.2 - 1.0 mg/dL 05/28/2018 11:14 AM [facility] LAB Specimen Anatomical Collection Method Collection Time Receive d Time (Source) Location / / Volume Laterality Urine (Urine, 05/28/2018 10:52 05/28/2018 Clean [place]atch) AM PHARMACY TECH CUSTOMER SERVICE 11:03 AM PHARMACY TECH CUSTOMER SERVICE Moises Padilla P.A.-C. LAB URINE ORDERABLES Performing Organization Address City/State/ZIP Code Phon e Number [facility] [address] [place] [address] LAB documented in this encounter Visit Diagnoses Diagnosis Prostatitis - Primary Polyp Colon Adenomatous documented in this encounter Additional Health Concerns Assessment Noted Time PHQ-9 Depression Total Score: 7 04/01/2018 1:32 PM PHARMACY TECH CUSTOMER SERVICE documented as of this encounter Care Teams Cosmetics And Toiletries Salesperson Relationship Specialty Start Date End Date Franco Molina M.D. PCP - General 09/25/16 07/27/19 documented as of this encounter
--- OUTSIDE RECORDS SUMMARY | 2022-02-17 12:22 | XMS_ITS | Encounter Summary ---
:1950 Author Organization [facility] Address [address] [place] [address] Care Team Providers Name Role Phone Franco Molina M.D. Primary Care Provider Encounter Details Date Type Department Care Team Description 06/01/2018 Clinical Communication Department of [facility] Dinh Taylor, Medicine, [facility], in [address] [phone] Social History Tobacco Use Types [...] this encounter Miscellaneous Notes Telephone Encounter - Marilee Srinivasan Pharm.DMichelle - 06/02/2018 1:48 PM CST Chart review completed as requested. See encounter from today's date for further details. Marilee Howard Pharm.D. Clinical Pharmacist 06/02/2018 HT HOSTESS Telephone Encounter - Michelle Taylor RMichelleNMichelle - 06/01/2018 11:09 AM CST Would you please perform a chart review of Elvis's current medications, he is enrolled in care coordination. Thanks, Michelle Talyor RN Fuse Cup Expander HT HOSTESS documented in this encounter Plan of Treatment Upcoming Encounters Date Type Specialty Care Team Description 04/23/2022 Office Visit Cardiovascular Disease Blas Peck M.D. [address] [place] [phone] (Wo rk) documented as of this encounter Visit Diagnoses Not on filedocumented in this encounter Additional Health Concerns Assessment Noted Time PHQ-9 Depression Total Score: 7 04/01/2018 1:32 PM FLIGHT HOSTESS documented as of this encounter Care Teams Band Teacher Relationship Specialty Start Date End Date Franco Molina M.D. PCP - General 09/25/16 07/27/19 documented as of this encounter
--- OUTSIDE RECORDS SUMMARY | 2022-02-17 12:22 | XMS_ITS | Encounter Summary ---
:1950 Author Organization [facility] Address [address] [place] [address] Care Team Providers Name Role Phone Franco Molina M.D. Primary Care Provider Reason for Referral Outpatient (Routine) - Closed Specialty Diagnoses / Procedures Referred By Contact Refer red To Contact [facility] Internal Franco Molina M.D. [facility] [address], [address] [place] [address] Referral ID Status Reason Start Date Expiration Date Visits Requ ested Visits Authorized [id number] Closed 06/18/2018 06/18/2019 1 1 Scheduling Instructions Three month follow-up. Need blood tests and urine few days before appointment. NICAL DIRECTOR Reason for Visit Reason Comments Pre-op Exam colonoscopy at [facility] on [address] Bowman. Follow-up States follow up on test res ults. Outpatient (Routine) - Closed Specialty Diagnoses / Procedures Referred By Contact Refer emily To Contact [facility] Internal Franco Molina M.D. [facility] [address], [address] [place] [address] Referral ID Status Reason Start Date Expiration Date Visits Requ ested Visits Authorized [id number] Closed 03/15/2018 03/15/2019 1 1 Encounter Details Date Type Department Care Team Description 06/18/2018 Office Visit Department of Franco Molina M.D . 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 Hyperglycemic (HCC) (Primary Dx); [facility] Internal [address], Pre operative Exam; Medicine in [address] Polyp Colon Adenomatous; [place], [place], [place] Screening Cancer Colon; [address] [address] Coronary Artery Disease [place] Vessel; MARQUEZ MENDOSA Coronary Arterial Bypass Graft Status Post Personal History; [id number] Hypertensive Heart And Chron ic Kidney Disease Without Heart Failure And With Stage 2 (Mild) Chronic Kidney Disease; [phone] Hyperlipidemia; Hyponatremia; Phimosis; Benign Prostati c Hyperplasia Hypertrophy With Obstruction; Anxiety; Need Vaccine Im munization Pneumococcal; High Risk Medic ation Social History Tobacco [...] Sign Reading Time Taken Comments Blood Pressure 123/64 06/18/2018 11:29 AM TECHNICAL DIRECTOR Pulse 69 06/18/2018 11:29 AM TECHNICAL DIRECTOR Temperature 37 ??C (98.6 ??F) 06/18/2018 11:29 AM TECHNICAL DIRECTOR Respiratory Rate 16 06/18/2018 11:29 AM TECHNICAL DIRECTOR Oxygen Saturation 97% 06/18/2018 11:29 AM TECHNICAL DIRECTOR Inhaled Oxygen Concentration - - Weight 103 kg (226 lb 3.1 oz) 06/18/2018 11:29 AM TECHNICAL DIRECTOR Height - - Body Mass Index 34.4 05/28/2018 10:05 AM TECHNICAL DIRECTOR documented in this encounter Patient Instructions Patient InstructionsFranco Molina M.D. - 06/18/2018 11:30 AM CST Please hold aspirin and djta-vvg-rsnniak medications at least 7 days prior to the colonoscopy. Please continue other medications until the evening of 06/27/2018. You should not eat or drink after 06/27/2018 midnight. Please take BuSpar, fluoxetine, metoprolol tartrate and ranitidine with sip of water on 06/28/2018 morning, as usual. Restart all the medications following after colonoscopy. Please follow instruction from General surgery and bowel preparation prior to colonoscopy. You may take BuSpar 20 mg by mouth 3 times a day. You need to gradually increase the dose at noon, for example increase every 2 to 3 days in increments of 5 mg/day. Return to clinic in 3 months for follow- up. Please do fasting blood test few days prior to the appointment. NICAL DIRECTOR AttachmentsThe following attachments cannot be sent through Care Everywhere. About Your Colonoscopy (Ethiopian)Night-Before Colon Cleansing Preparation for Your Procedure (Ethiopian)Preparation Instructions For Your Colonoscopy (Ethiopian) documented in this encounter Progress Notes Franco Molina M.D. - 06/18/2018 11:30 AM CST SUBJECTIVE CHIEF COMPLAINT/ REASON FOR VISIT 1. Follow-up medical problems 2. Discuss test results 3. Renew medication 4. Preop evaluation for screening colonoscopy HISTORY OF PRESENT ILLNESS Elvis Dawkins is a 68 y.o. male who presents to the clinic today for above complaints. I saw him on 03/15/2018. He had blood tests on 06/14/2018. He is scheduled to have screening colonoscopy at[address] on 06/28/2018. He would like to have preoperative evaluation today. He is doing fine today. He does not have any acute complaint. He has abdominal distension with bloating and discomfort intermittently. There was no nausea, vomiting, fever or chills. He has phimosis and intermittent paraphimosis causing urinary bladder distention. He denies dysuria or hematuria. He does not want further evaluation or surgical intervention for phimosis. He has diabetes mellitus type 2 with diabetic neuropathy. He monitors blood sugar once a day. Blood sugar is ranging from 100-200. He takes glimepiride. He has coronary artery disease with history of CABG. He denies exertional chest pain, dyspnea exertion, dizziness, orthopnea, paroxysmal nocturnal dyspnea, palpitation or peripheral edema. He would like to increase the dose of BuSpar. We discussed lab results from 06/14/2018. Basic metabolic panel was remarkable for sodium 134. Estimated GFR, hepatic function panel and CK were normal. Hemoglobin A1c was 8.7, which has decreased from9.2 on 03/12/2018. There have been no complications during or after previous surgeries. Patient denies any personal or family history intolerance to general anesthesia. Patient denies any reaction to blood transfusions. There is no personal history of hepatitis, jaundice, bleeding disorder, or drug resistant infection like MRSA or VRE. There was no personal history of blood clots in legs or lungs. His father had deep vein thrombosis and pulmonary embolism. I reviewed and updated medical record. Medication reconciliation was done. I answered all of their questions. Patient does not have additional questions, concerns, or complaints. MEDICATIONS Current Outpatient Prescriptions Medication Sig Dispense Refill [...] Dx:E11.9 100 strip 11 ??? blood-glucose meter [facility] Dispense glucose meter, test strips and lancets [...] IN THE MORNING 90 tablet 3 ??? nitroglycerin (NITROSTAT) 0.4 mg [...] on 06/18/2018 ) 30 mL 2 ??? metoprolol tartrate (LOPRESSOR) 25 mg tablet Take 1 tablet (25 mg total) by mouth 2 (two) times a day. 180 tablet 3 ??? PEPPERMINT OIL ORAL Take [...] 34.0 To 34.9 Adult 01/03/2016 ??? Callus [place] Foot 04/25/2016 ??? Congestion Nasal 01/03/2016 ??? [...] [facility]. ??? COLONOSCOPY W/ POLYPECTOMY 05/11/[address]/[facility]. Dr. Devi miralax prep, quality poor. Repeat in 1yr due to poor prep. ??? CORONARY ARTERY BYPASS GRAFTS X 4 05/28/2014 ??? INGUINAL HERNIA REPAIR Bilateral SOCIAL HISTORY Social History Social History ??? Marital status: Spouse name: N/A ??? Number of children: N/A ??? 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 Smoking status: Current Every Day Smoker Types: Pipe ??? Smokeless tobacco: Never Used ??? Alcohol use No ??? Drug use: No ??? Sexual activity: Defer Other Topics Concern ??? None Social History Narrative ??? None History Drug Use No History Alcohol Use No FAMILY HISTORY Family History Problem Relation Age of Onset ??? Deep vein thrombosis Father ??? PE - Pulmonary embolism Father ??? Hypertension Mother ??? Diabetes Mother ??? Cataracts Mother ??? Irritable bowel syndrome Mother ??? Colon cancer Mother ??? Irritable bowel syndrome Grandfather ??? Parkinson disease Sister ??? Parkinsons disease Sister ??? Prostate cancer Brother OBJECTIVE VITAL SIGNS Vitals: 06/18/18 1129 BP: 123/64 Patient Position: Sitting Pulse: 69 Temp: 37 ??C Resp: 16 Weight: 102.6 kg SpO2: 97% TempSrc: Temporal PHYSICAL EXAMINATION General: Patient is sitting. No distress. Able to talk without interruption. Head: No facial rash, asymmetry or sinus tenderness. Eyes: PERRLA. EOMI. No pallor, icterus or conjunctivitis. ENT: No nasal congestion, discharge or bleeding. There is no ear infection or discharge. No mastoid tenderness. Tongue is moist and midline. No oral lesions. Lymph nodes: No cervical or supraclavicular lymphadenopathy. Thyroid: No thyromegaly. No thyroid thrill or bruit. Peripheral vessels: Good radial pulses. Heart: No carotid bruit. No JVD. Regular rhythm. There is no S3, gallop, murmur or thrill. Lungs: Normal respiratory effort. Clear to auscultation. Abdomen: Obese. Moves with respiration. Bowel sounds present. Soft. No rebound tenderness, guarding or rigidity. No organomegaly. Extremities: No clubbing, cyanosis, edema, infection or calf tenderness. Mental: Alert and oriented x 3. Normal mood and affect. Neuro: Intact cranial nerves. Grossly intact sensory and motor. Grossly nonfocal exam. DIAGNOSTICS LABORATORY: 06/14/2018 10:59 Sodium, S 134 (L) Potassium, S 4.9 Chloride, S 98 Bicarbonate, S 27 Anion Gap 9 Bld Urea Nitrog(BUN), S 10 Creatinine, S 1.06 eGFR-Non Black 72 eGFR-Black 84 Calcium, Total 9.8 Glucose, S 131 Bilirubin, Total, S 0.9 Bilirubin, Direct, S 0.2 Alanine Aminotransferase (ALT), S 14 Aspartate Aminotransferase (AST), S 22 Alkaline Phosphatase, S 111 Protein, Total, S 6.8 Albumin, S 4.6 Creatine Kinase (CK), S 293 Hemoglobin A1c, B 8.7 (H) ASSESSMENT / PLAN #1 Diabetes Mellitus Type 2 With Diabetic Neuropathy Hyperglycemic (HCC) Diabetes mellitus is improved, but not controlled yet. Recent hemoglobin A1c was 8.7. We discussed self-management goal of diabetes mellitus. He will continue ADA diet, regular exercise and current medication. He needs to monitor blood sugar daily. Will repeat hemoglobin A1c in 3 months. He needs to see eye doctor once a year. #2 Preoperative Exam #3 Polyp Colon Adenomatous #4 Screening Cancer Colon This note serves as preoperative medical evaluation prior to screening colonoscopy on 06/28/2018. The patient is stable from a cardiac and respiratory standpoint. There is no absolute contraindication for planned procedure. We discussed risks, benefits, and alternative therapy. Patient is willing to pr oceed because the benefits outweigh the risks. In regards to medications, patient should stop over the counter medication and aspirin 7 days prior to procedure. He needs to continue other medication and till the evening of 06/27/2018. Need to be nothing by mouth the night before surgery. Patient will t emma BuSpar, fluoxetine, metoprolol tartrate and ranitidine with a sip of water the morning of surgery and restart all medications after surgery. Advised him to follow instructions from General Surgery.Formations about bowel preparation was given to him. #5 Coronary Artery Disease [place] Vessel #6 Coronary Arterial Bypass Graft Status Post Personal History #7 Hypertensive Heart And Chronic Kidney Disease Without Heart Failure And With Stage 2 (Mild) Chronic Kidney Disease He is stable from cardiac standpoint. There is no angina. His blood pressure is controlled. Advised him to continue current medications, sodium restriction diet and cardiovascular risk factor modification. Blood pressure goal should be less than 130/80 mm Hg. #8 Hyperlipidemia He will continue low-cholesterol diet, low-fat diet, regular exercise and atorvastatin. Need to repeat lipid profile in 3 months. #9 Hyponatremia He has mild hyponatremia, which is chronic and he is asymptomatic. We will monitor electrolytes and renal function in subsequent visit. #10 Phimosis #11 Benign Prostatic Hyperplasia Hypertrophy With Obstruction He does not want further evaluation or surgical intervention for phimosis. He saw urologists in the past. He will continue current medications. #12 Anxiety He would like to increase the dose of BuSpar. He was given new prescription with instruction. He cantake BuSpar 20 mg by mouth 3 times a day. He needs to gradually increase the dose at noon, increase every 2 to 3 days in increments of 5 mg/day. #13 Need Vaccine Immunization Pneumococcal He was given Pneumovax today. #14 Renew Medications The following medications were renewed: BuSpar. #15 Discussed Test Results I reviewed test results from 06/14/2018. All questions were answered. #16 Follow-up Visit Return to the clinic in three months for review medical problems and discuss test results. He needs to do following tests few days before the appointment: ALT, AST, basic metabolic panel, CBC, CK, hemoglobin A1c, lipid panel, urine microalbumin and TSH. ADMINISTRATIVE BILLING 25 minutes of this 33 minute visit was spent in face to face counseling and coordination of care. documented in this encounter Plan of Treatment Upcoming Encounters Date Type Specialty Care Team Description 04/23/2022 Office Visit Cardiovascular Disease Blas Peck M.D. [address] [place] [address] [phone] (Wo rk) Scheduled Referrals Name Type Priority Associated Diagnoses Order S [facility] Internal Outpatient Referral Routine Ex pected: Medicine office 09/18/2018 visit (clinic) (Approximate) , Expires: 06/18/2021 documented as of this encounter Results S-TSH (Thyroid-Stimulating Hormone - Sensitive) (09/22/2018 10:11 AM CDT) athologist Signature TSH, Sensitive 1.5 0.3 - 4.2 09/22/2018 mIU/L 2:15 PM CDT Comment: Biotin has been identified by the kalpana vo as a potential interfering substance. ??Higher concentr ations of biotin may be found in multivitamins, hair/nail supple ments, and workout supplements. ??If the result does not ma h clinical observations, repeat testing after patient refrains fr om the use of supplements for at least 12 hours. Specimen Anatomical Collection Method Collection Time Receive d Time (Source) Location / / Volume Laterality Blood (Blood, 09/22/2018 10:11 09/22/2018 1:08 Venous) AM CDT PM CDT Franco Molina M.D. LAB BLOOD ADD-ON Performing Organization Address City/State/ZIP Code Phon e Number [facility] [address] [place] [address] LAB Microalbumin, Random, Urine (09/22/2018 10:11 AM CDT) athologist Signature Microalbumin 9.0 mg/L 09/22/2018 1:55 PM CDT Creatinine 103 mg/dL 09/22/2018 1:55 PM CDT Albumin/Creatinin 9 <17 mg/g 09/22/2018 e Ratio 1:55 PM CDT Specimen Anatomical Collection Method Collection Time Receive d Time (Source) Location / / Volume Laterality Urine (Urine, 09/22/2018 10:11 09/22/2018 1:08 Clean Catch) AM CDT PM CDT Franco Molina M.D. LAB URINE ORDERABLES Performing Organization Address City/[facility] Phon e Number [facility] [address] [place] [address] LAB Lipid Panel (09/22/2018 10:11 AM CDT) athologist Signature Cholesterol, 130 mg/dL 09/22/2018 Total [...] M.D. LAB BLOOD ADD-ON Performing Organization Address City/[facility] Code Phon e Number [facility] [address] [place] [address] LAB (ABNORMAL) Hemoglobin A1c (09/22/2018 10:11 AM [...] M.D. LAB BLOOD ADD-ON Performing Organization Address City/[facility]/ZIP Code Phon e Number [facility] [address] [place] [address] LAB CK (Creatine Kinase) (09/22/2018 10:11 AM CDT) P athologist Signature Creatine Kinase 267 39 - 308 09/22/2018 (CK), S U/L 4:12 PM CDT Specimen Anatomical Collection Method Collection Time Receive d Time (Source) Location / / Volume Laterality Blood (Blood, 09/22/2018 10:11 09/22/2018 3:52 Venous) AM CDT PM CDT Franco Molina M.D. LAB BLOOD ADD-ON Performing Organization Address City/State/ZIP Code Phon e Number [facility] [address] [place] [address] [place] LAB ALT (Alanine Aminotransferase) (09/22/2018 10:11 AM CDT) Patholo gist Method Time Signature Alanine 15 7 - 55 09/22/2018 Aminotransferase U/L 2:15 PM CDT (ALT), S Specimen Anatomical Collection Method Collection Time Receive d Time (Source) Location / / Volume Laterality Blood (Blood, 09/22/2018 10:11 09/22/2018 1:08 Venous) AM CDT PM CDT Franco Molina M.D. LAB BLOOD ADD-ON Performing Organization Address City/State/ZIP Code Phon e Number [facility] [address] [place] [address] LAB AST (Aspartate Aminotransferase) (09/22/2018 10:11 AM [...] Address City/State/ZIP Code Phon e Number [facility] [address] [place] [address] LAB (ABNORMAL) Basic Metabolic Panel (09/22/2018 10:11 [...] >=60 09/22/2018 Black/ mL/min/BSA 2:15 PM CDT Vincentian Comment: ----ADDITIONAL INFORMATION---- Estimated GFR calculated [...] City/State/ZIP Code Phon e Number [facility] [address] [place] [address] LAB CBC without Differential (09/22/2018 10:11 AM [...] Organization Address City/State/ZIP Code Phon e Number [facility] [address] [facility] [place] [address] LAB documented in this encounter Visit Diagnoses Diagnosis 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 Hyperglycemic (HCC) - Primary Preoperative Exam Polyp Colon Adenomatous Screening Cancer Colon Coronary Artery Disease [place] Vessel Coronary Arterial Bypass Graft Status Po st Personal History Hypertensive Heart And Chronic Kidney Di sease Without Heart Failure And With Stage 2 (Mild) Chronic Kidney Disease Hyperlipidemia Hyponatremia Phimosis Benign Prostatic Hyperplasia Hypertrophy With Obstruction Anxiety Need Vaccine Immunization Pneumococcal High Risk Medication documented in this encounter Additional Health Concerns Assessment Noted Time PHQ-9 Depression Total Score: 7 04/01/2018 1:32 PM TECHNICAL DIRECTOR documented as of this encounter Care Teams Dynamics Ax Consultant Relationship Specialty Start Date End Date Franco Molina M.D. PCP - General 09/25/16 07/27/19 documented as of this encounter
--- OUTSIDE RECORDS SUMMARY | 2022-02-17 12:22 | XMS_ITS | Encounter Summary ---
:1950 Author Organization [facility] Address [address] [place] [address] Care Team Providers Name Role Phone Franco Molina M.D. Primary Care Provider Encounter Details Date Type Department Care Team Description 05/27/2018 Patient Outreach Department of Family Michelle Taylor , Medicine, [facility], in [address] [phone] Social History Tobacco Use Types [...] encounter Progress Notes Michelle Taylor, R.N. - 05/27/2018 1:32 PM CST SUBJECTIVE REASON FOR VISIT Follow up on Elvis Dawkins participation in the Adult Care Coordination program. HISTORY OF PRESENT ILLNESS Summary of the discussion: Elvis tells me he did take his blood sugars this past week. He sates that the lowest he had was 185.The highest was 225. He will continue to monitor and record blood sugars daily. He is utilizing his exercise bike. If his bladder and abdomen start to bother him he can sometimes push through it other times, he needs to stop. He is anxious about his appointment. He does not want to leave feeling anxious and mad. We spoke about how he should write down what he would like most to discuss so he doesn't forget. He is in agreement with this plan. Goals Addressed Most Recent Patient Stated ??? Exercise (pt-stated) On track (05/27/2018) Would like to start using his exercise bike daily. ??? Weight loss (pt-stated) On track (05/27/2018) Patient would like to loose 24 pounds by the end september. Other ??? Follow your action plan for Diabetes On track (05/27/2018) It is important to keep regular follow ups with your Primary Doctor. Talk with your doctor???s clinic nurse during office hours about any concerns you may have, by calling the Call Center at [phone], or calling your Office 365 Consultant, Michelle Taylor RN, at [phone]. If you have the online Portal, send a message to your provider regarding any concerns you may have. During non-office hours you can be directed to the ExpertRN line where a nurse can evaluate your symptoms for urgency and recommend appropriate follow up and care by calling [phone]. For medical emergencies requiring immediate attention, call 911 or proceed to your nearest emergencydepartment. The Emergency Department at [facility] is open 24 hours a day, [...] breathing. ??? Use Emergency plan On track (05/27/2018) Emergency Care: Hypoglycemia Seek Emergency care for [...] ??? Use Sick day plan On track (05/27/2018) Sick Day Guidelines Illness places stress on [...] items for the next contact include: blood sugar, appointment recommendations The following portions of the patient's history were updated as appropriate: education. The patient was instructed to contact the daycare provider with any questions or concerns and statedunderstanding of the information provided. E LIAISON documented in this encounter Plan of Treatment Upcoming Encounters Date Type Specialty Care Team Description 04/23/2022 Office Visit Cardiovascular Disease Blas Peck M.D. [address] [place] [address] [phone] (Wo rk) documented as of this encounter Visit Diagnoses Not on filedocumented in this encounter Additional Health Concerns Assessment Noted Time PHQ-9 Depression Total Score: 7 04/01/2018 1:32 PM NURSE LIAISON documented as of this encounter Care Teams Freight Weigher Relationship Specialty Start Date End Date Franco Molina M.D. PCP - General 09/25/16 07/27/19 documented as of this encounter
--- OUTSIDE RECORDS SUMMARY | 2022-02-17 12:22 | XMS_ITS | Encounter Summary ---
:1950 Author Organization [facility] Address [address] [place] [address] Care Team Providers Name Role Phone Franco Molina M.D. Primary Care Provider Reason for Visit Reason Comments Care Coordination - Follow up Encounter Details Date Type Department Care Team Description 05/21/2018 Patient Outreach Department of Family Michelle Taylor are Coordination - Medicine, [place] [facility], in [address] [phone] Social History Tobacco Use Types [...] encounter Progress Notes Michelle Taylor, R.N. - 05/21/2018 10:22 AM CST SUBJECTIVE REASON FOR VISIT Follow up on Elvis Dawkins participation in the Adult Care Coordination program. HISTORY OF PRESENT ILLNESS Summary of the discussion: Elvis tells me he doesn't have any blood sugar readings off hand. I asked if he had a log to keep track of them, he tells me he does but it depends on what type of mood he is in if he records them. Expressed the importance of monitoring and recording his blood sugars, patient states that if I am goingto call him, he will start checking them. The plan going forward is that Elvis will start to monitorhis blood sugars and record them. He shares several concerns regarding his prostate and bladder, he still feels that there is something wrong and if he needs more testing he is willing to do them. Elvis also shares that he wishes someone would give him something for his anxiety because he has a hard time. Encouraged Elvis to write a list of his concerns for his appointment next Thursday. He tells me he used to do this but it never has done any good in the past. We spoke about Elvis starting some form of exercise. One of his goals were to start using his exercise bike in his apartment. He notes he did do this one day but his prostate and bladder start to hurt so he stopped. He does note he would like to go to a gym and shoot basketball hoops. We explored the barriers to doing this, and he states that no one is friendly [place]. Encouraged Elvis to try different gyms to see what he thinks. He tells me [facility]. Goals Addressed Most Recent Patient Stated ??? Exercise (pt-stated) No change (05/21/2018) Would like to start using his exercise bike daily. ??? Weight loss (pt-stated) No change (05/21/2018) Patient would like to loose 24 pounds by the end of September. Other ??? Follow your action plan for Diabetes On track (05/21/2018) It is important to keep regular follow ups with your Primary Doctor. Talk with your doctor???s clinic nurse during office hours about any concerns you may have, by calling the Call Center at [phone], or calling your Yeast Supervisor, Michelle Taylor RN, at [phone]. If you have the online Portal, send a message to your provider regarding any concerns you may have. During non-office hours you can be directed to the ExpertRN line where a nurse can evaluate your symptoms for urgency and recommend appropriate follow up and care by calling [phone]. For medical emergencies requiring immediate attention, call 911 or proceed to your nearest emergencydepartment. The Emergency Department at [facility] is open 24 hours a [...] breathing. ??? Use Emergency plan On track (05/21/2018) Emergency Care: Hypoglycemia Seek Emergency care for [...] ??? Use Sick day plan On track (05/21/2018) Sick Day Guidelines Illness places stress on [...] these sick day guidelines. ASSESSMENT/PLAN Next contact: 6 day(s) by Phone Call. Discussion items for the next contact include: Blood sugars, exercise The following portions of the patient's history were updated as appropriate: education. The patient was instructed to contact the critical care specialist with any questions or concerns and statedunderstanding of the information provided. N OPERATOR documented in this encounter Plan of Treatment Upcoming Encounters Date Type Specialty Care Team Description 04/23/2022 Office Visit Cardiovascular Disease Blas Peck M.D. [address] [place] [phone] (Wo rk) documented as of this encounter Visit Diagnoses Not on filedocumented in this encounter Additional Health Concerns Assessment Noted Time PHQ-9 Depression Total Score: 7 04/01/2018 1:32 PM CHURN OPERATOR documented as of this encounter Care Teams Secretary Book Keeper Relationship Specialty Start Date End Date Franco Molina M.D. PCP - General 09/25/16 07/27/19 documented as of this encounter
--- OUTSIDE RECORDS SUMMARY | 2022-02-17 12:22 | XMS_ITS | Encounter Summary ---
:1950 Author Organization [facility] Address [address] [place] [address] Care Team Providers Name Role Phone Franco Molina M.D. 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 nitroglycerin Place 1 tablet (0.4 25 tablet 11 09/01/2017 (NITROSTAT) 0.4 mg SL mg total) under the tablet tongue every 5 (five) minutes as needed for chest pain. Up to 3 doses & call 911 aspirin 81 mg chewable Chew 1 tablet daily. 0 07/09/2020 tablet atorvastatin (LIPITOR) Take 1 tablet (20 mg 90 tablet 3 08/17/2018 20 mg tablet total) by mouth at bedtime. blood sugar diagnostic 1 test daily. Use to 100 strip 11 06/201710/25/2018 (glucose blood) strips test blood sugar daily. Whatever is covered by insurance. Dx:E11.9 blood-glucose meter [facility] [place] Dispense glucose 0 05/2308/11/2018 meter, test strips and lancets covered by the patient insurance. Test 2 times per day. busPIRone (BUSPAR) 10 mg Take 2 tablets (20 360 tablet 3 11/201706/18/2018 tablet mg total) by mouth 2 (two) times a day. docusate sodium Take 100 [...] 1 tablet (25 mg 180 tablet 3 201706/18/2018 (for_LOPRESSOR) 25 mg total) by mouth 2 tablet [...] Take 1 tablet (150 180 tablet 3 08/1309/03/2018 mg tablet mg total) by mouth 2 (two) times a day. tamsulosin (FLOMAX) 0.4 Take 1 capsule (0.4 90 capsule 3 12/20/2018 mg 24 hr capsule mg total) by mouth daily. documented as of this encounter Plan of Treatment Upcoming Encounters Date Type Specialty Care Team Description 04/23/2022 Office Visit Cardiovascular Disease Blas Peck M.D. [address] [place] [phone] (Wo rk) documented as of this encounter Procedures Procedure Name Priority Date/Time Associated Diagnosis Comme nts HEPATIC FUNCTION Routine 06/14/2018 10:59 Diabetes Mellitus Ty pe Results for this PANEL, S AM GLAZIER SUPERVISOR 2 With Diabetic procedure ar e in Neuropathy the results Hyperglycemic (H CC) section. Hypertensive Heart And Chronic Kidney Disease Without Heart Failure And With Stage 2 (Mild) Chronic Kidney Disease Coronary Artery Disease High Risk Medication HEMOGLOBIN A1C, B Routine 06/14/2018 10:59 Diabetes Mellitus T ype Results for this AM GLAZIER SUPERVISOR 2 With Diabetic procedure ar e in Neuropathy the results Hyperglycemic (H CC) section. Hypertensive Heart And Chronic Kidney Disease Without Heart Failure And With Stage 2 (Mild) Chronic Kidney Disease Coronary Artery Disease CREATINE KINASE Routine 06/14/2018 10:59 Diabetes Mellitus Typ e Results for this (CK), S AM GLAZIER SUPERVISOR 2 With Diabetic procedure ar e in Neuropathy the results Hyperglycemic (H CC) section. Hypertensive Heart And Chronic Kidney Disease Without Heart Failure And With Stage 2 (Mild) Chronic Kidney Disease Coronary Artery Disease High Risk Medication BASIC METABOLIC Routine 06/14/2018 10:59 Diabetes Mellitus Typ e Results for this PANEL, S/P AM GLAZIER SUPERVISOR 2 With Diabetic procedure ar e in Neuropathy the results Hyperglycemic (H CC) section. Hypertensive Heart And Chronic Kidney Disease Without Heart Failure And With Stage 2 (Mild) Chronic Kidney Disease Coronary Artery Disease documented in this encounter Results (ABNORMAL) Hemoglobin A1c (06/14/2018 10:59 AM GLAZIER SUPERVISOR) athologist Signature Hemoglobin A1c, 8.7 (H) 4.2 - 5.6 06/14/2018 [facility] B % 1:54 PM [facility] Comment: Hemoglobin A1c values greater than or eq ual to 6.5 percent are diagnostic for diabetes mellitus. ?? Diagnosis should be confirmed by repeat testing. ??In diabet ic patients, HbA1c goals should be discussed with healthcar e provider. Specimen Anatomical Collection Method Collection Time Receive d Time (Source) Location / / Volume Laterality Blood (Blood, 06/14/2018 10:59 06/14/2018 1:02 Venous) AM GLAZIER SUPERVISOR PM GLAZIER SUPERVISOR Franco Molina M.D. LAB BLOOD ADD-ON Performing Organization Address City/State/ZIP Code Phon e Number [facility] [address] [place] [address] LAB CK (Creatine Kinase) (06/14/2018 10:59 AM GLAZIER SUPERVISOR) athologist Signature Creatine Kinase 293 39 - 308 06/14/2018 [facility] (CK), S U/L 4:29 PM [facility] Specimen Anatomical Collection Method Collection Time Receive d Time (Source) Location / / Volume Laterality Blood (Blood, 06/14/2018 10:59 06/14/2018 4:03 Venous) AM GLAZIER SUPERVISOR PM GLAZIER SUPERVISOR Franco Molina M.D. LAB BLOOD ADD-ON Performing Organization Address City/State/ZIP Code Phon e Number [facility] [address] [place] [address] [facility] LAB Hepatic Function Panel (06/14/2018 10:59 AM GLAZIER SUPERVISOR) [facility] gist Method Time Signature Bilirubin, Total, S 0.9 <=1.2 06/14/2018 [facility] mg/dL 1:58 PM [facility] Bilirubin, Direct, S 0.2 0.0 - 0.3 06/14/2018 [facility] mg/dL 1:58 PM [facility] Aspartate 22 8 - 48 06/14/2018 [facility] Aminotransferase U/L 1:58 PM [facility] Alanine 14 7 - 55 06/14/2018 [facility] Aminotransferase U/L 1:58 PM [facility] Alkaline 111 40 - 129 06/14/2018 [facility] Phosphatase, S U/L 1:58 PM [facility] Albumin, S 4.6 3.5 - 5.0 06/14/2018 [facility] g/dL 1:58 PM [facility] Protein, Total, S 6.8 6.3 - 7.9 06/14/2018 [facility] g/dL 1:58 PM [facility] Specimen Anatomical Collection Method Collection Time Receive d Time (Source) Location / / Volume Laterality Blood (Blood, 06/14/2018 10:59 06/14/2018 1:03 Venous) AM GLAZIER SUPERVISOR PM GLAZIER SUPERVISOR Franco Molina M.D. LAB BLOOD ADD-ON Performing Organization Address City/State/ZIP Code Phon e Number [facility] [address] [place] [phone] LAB (ABNORMAL) Basic Metabolic Panel (06/14/2018 10:59 AM GLAZIER SUPERVISOR) P athologist Signature Potassium, S 4.9 3.6 - 5.2 06/14/2018 [facility] mmol/L 1:58 PM [facility] Sodium, S 134 (L) 135 - 145 06/14/2018 [facility] mmol/L 1:58 PM [facility] Chloride, S 98 98 - 107 06/14/2018 [facility] mmol/L 1:58 PM [facility] Bicarbonate, S 27 22 - 29 06/14/2018 [facility] mmol/L 1:58 PM [facility] Anion Gap 9 7 - 15 06/14/2018 [facility] 1:58 PM [facility] BUN (Blood Urea 10 8 - 24 06/14/2018 [facility] Nitrogen), S mg/dL 1:58 PM [facility] Creatinine 1.06 0.74 - 06/14/2018 [facility] 1.35 mg/dL 1:58 PM [facility] eGFR-Non 72 >=60 06/14/2018 [facility] Black/ mL/min/BSA 1:58 PM [facility] Comment: ----ADDITIONAL INFORMATION---- Estimated GFR calculated using the 2009 CKD_EPI creatinine equation. eGFR-Black/ 84 >=60 mL/min/BSA 2018 1:58 PM [facility] Comment: ----ADDITIONAL INFORMATION---- Estimated GFR calculated using the 2009 CKD_EPI creatinine equation. Calcium, Total, S 9.8 8.8 - 10.2 mg/dL 06/14/2018 1 :58 PM GLAZIER SUPERVISOR [facility] Glucose, S 131 70 - 140 mg/dL 06/14/2018 1:58 PM [facility] Specimen Anatomical Collection Method Collection Time Receive d Time (Source) Location / / Volume Laterality Blood (Blood, 06/14/2018 10:59 06/14/2018 1:03 Venous) AM GLAZIER SUPERVISOR PM GLAZIER SUPERVISOR Franco Molina M.D. 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 PCP - General 09/25/16 07/27/19 documented as of this encounter
--- OUTSIDE RECORDS SUMMARY | 2022-02-17 12:22 | XMS_ITS | Encounter Summary ---
:1950 Author Organization [facility] Address [address] [place] [address] Care Team Providers Name Role Phone Franco Molina M.D. Primary Care Provider Reason for Visit Reason Comments Care Coordination ( April) Encounter Details Date Type Department Care Team Description 05/13/2018 Patient Outreach Department of [facility] Michelle Taylor are Coordination ( [facility] R, R.NMichelle April) Clinic, in [place], [place] [address] [place] [phone] Social History Tobacco Use Types [...] Visit Cardiovascular Disease Blas Peck M.D. 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 PCP - General 09/25/16 07/27/19 documented as of this encounter
--- OUTSIDE RECORDS SUMMARY | 2022-02-17 12:23 | XMS_ITS | Encounter Summary ---
:1950 Author Organization [facility] Address [address] [place] [address] Care Team Providers Name Role Phone Franco Molina M.D. Primary Care Provider Encounter Details Date Type Department Care Team Description 03/29/2018 Patient Outreach Department of [facility] Michelle Taylor , Medicine, [facility], in [place], [place] [address] [place] [phone] Social History Tobacco Use [...] Visit Cardiovascular Disease Blas Peck M.D. [address] [place], [place] [phone] (Wo rk) documented as of this encounter Visit Diagnoses Not on filedocumented in this encounter Additional Health Concerns Assessment Noted Time PHQ-9 Depression Total Score: 5 12/23/2016 8:36 AM CDT documented as of this encounter Care Teams Fitting Room Attendant Relationship Specialty Start Date End Date Franco Molina M.D. PCP - General 09/25/16 07/27/19 documented as of this encounter
--- OUTSIDE RECORDS SUMMARY | 2022-02-17 12:23 | XMS_ITS | Encounter Summary ---
:1950 Author Organization [facility] Address [address] [place] [address] Care Team Providers Name Role Phone Franco Molina M.D. Primary Care Provider Reason for Visit Reason Comments Care Coordination - Follow up Encounter Details Date Type Department Care Team Description 04/29/2018 Patient Outreach Department of Family Michelle Taylor are Coordination - Medicine, [facility] in [place], [place] [address] [place] [phone] Social History Tobacco Use Types [...] documented as of this encounter Progress Notes Michlele Taylor RMichelleN. - 04/29/2018 10:56 AM CST Call placed to Elvis for care coordination follow up. Left message for Elvis to return my call. NG PIN GAUGER documented in this encounter Plan of Treatment Upcoming Encounters Date Type Specialty Care Team Description 04/23/2022 Office Visit Cardiovascular Disease Blas Peck M.D. [address] [place], [place] [phone] (Wo rk) documented as of this encounter Visit Diagnoses Not on filedocumented in this encounter Additional Health Concerns Assessment Noted Time PHQ-9 Depression Total Score: 7 04/01/2018 1:32 PM FIRING PIN GAUGER documented as of this encounter Care Teams Ironer Or Presser Relationship Specialty Start Date End Date Franco Molina M.D. PCP - General 09/25/16 07/27/19 documented as of this encounter
--- OUTSIDE RECORDS SUMMARY | 2022-02-17 12:23 | XMS_ITS | Encounter Summary ---
:1950 Author Organization [facility] Address [address] [place] [address] Care Team Providers Name Role Phone Franco Molina M.D. Primary Care Provider Encounter Details Date Type Department Care Team Description 04/29/2018 Clinical Communication Department of [facility] Franco Molina M.D. [address], [address] [place] [address] [place] [phone] Social History Tobacco Use Types Packs/Day [...] Visit Cardiovascular Disease Blas Peck M.D. [address] [place] [phone] (Wo rk) documented as of this encounter Visit Diagnoses Not on filedocumented in this encounter Additional Health Concerns Assessment Noted Time PHQ-9 Depression Total Score: 7 04/01/2018 1:32 PM HEALTHCARE MARKETER documented as of this encounter Care Teams Stroboscope Operator Relationship Specialty Start Date End Date Franco Molina M.D. PCP - General 09/25/16 07/27/19 documented as of this encounter
--- OUTSIDE RECORDS SUMMARY | 2022-02-17 12:23 | XMS_ITS | Encounter Summary ---
:1950 Author Organization [facility] Address [address] [place] [address] Care Team Providers Name Role Phone Franco Molina M.D. Primary Care Provider Reason for Visit Reason Comments Care Coordination - Referral Encounter Details Date Type Department Care Team Description 03/30/2018 Patient Outreach Department of Family Michelle Taylor are Coordination - Medicine, [place] [facility], in [address] [phone] Social History Tobacco Use Types [...] encounter Progress Notes Michelle Taylor, R.N. - 03/30/2018 2:46 PM CST SUBJECTIVE REASON FOR CHART REVIEW Referral to Adult Care Coordination program Elvis Dawkins was referred for potential enrollment in Adult Care Coordination. Referral Source: Primary Care Provider Referral reason/goal for enrollment: Diabetes Self Management Chronic disease measures/Risk: Patient Active Problem List Diagnosis ??? 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 Coronary Artery Disease ??? Anxiety ??? Apnea Sleep Obstructive ??? Benign Prostatic Hyperplasia Hypertrophy With Obstruction ??? Body Mass Index 34.0 To 34.9 Adult ??? Callus [place] Foot ??? Constipation ??? Congestion Nasal ??? [...] Maxillary ??? Paraphimosis ??? Hernia Inguinal Left PHQ9 Score 12/23/2016 04/01/2018 PHQ-9 Total Score (max 27) 5 7 GAD7 Score 04/01/2018 BONI-7 Total Score (max 21) 6 Promis 10 Patient Outreach from 03/30/2018 in Department of Family Medicine in [place], [place] Charting Type Initial Assessment [id number] Physical Health Raw Score 13 Utilization: 0 ASSESSMENT/PLAN Inclusion/Exclusion Criteria: Patient does meet program criteria. Plan: Review with SPR/SCR team. NISTRATIVE EXECUTIVE documented in this encounter Plan of Treatment Upcoming Encounters Date Type Specialty Care Team Description 04/23/2022 Office Visit Cardiovascular Disease Blas Peck M.D. [address] [place] [phone] (Wo rk) documented as of this encounter Visit Diagnoses Not on filedocumented in this encounter Additional Health Concerns Assessment Noted Time PHQ-9 Depression Total Score: 7 04/01/2018 1:32 PM ADMINISTRATIVE EXECUTIVE documented as of this encounter Care Teams Adjunct Instructor Relationship Specialty Start Date End Date Franco Molina M.D. PCP - General 09/25/16 07/27/19 documented as of this encounter
--- OUTSIDE RECORDS SUMMARY | 2022-02-17 12:23 | XMS_ITS | Encounter Summary ---
:1950 Author Organization [facility] Address [address] [place] [address] Care Team Providers Name Role Phone Franco Molina M.D. Primary Care Provider Encounter Details Date Type Department Care Team Description 03/15/2018 Clinical Communication Department of [facility] Dinh Taylor, Medicine, [facility], in [address] [phone] Social History Tobacco Use Types [...] Telephone Encounter - Franco Molina M.D. - 03/29/2018 5:13 PM CST As the patient's primary physician/MORRO, I have determined this patient is eligible for complex care management services as the patient has two or more chronic conditions expected to last at least 12 months or until the of the patient, and that place the patient at significant risk of , acute exacerbation/decompensation, or functional decline. An RN career development coordinator/teacher will discuss details of care coordination with the patient, including cost sharing, and document patient consent. Hemoglobin A1c should be between 7 and 7.5%. Electronically signed by: Franco Molina M.D. 03/29/18 5:14 PM IFOCAL LENS ASSEMBLER Telephone Encounter - Michelle Taylor R.N. - 03/29/2018 3:[address] Molina Elvis is interested in working with care coordination. Can you please place the dot phrase? Also, what would you like to be his goal, A1c less than 8.0 % Thanks, Michelle Taylor RN Dry Plasterer IFOCAL LENS ASSEMBLER Telephone Encounter - Franco Molina M.D. - 03/15/2018 12:12 PM CST It is a good idea, but I am not sure he agrees or not. Please call and check with him. IFOCAL LENS ASSEMBLER Telephone Encounter - Michelle Taylor R.N. - 03/15/2018 7:[address] Molina, Do you feel Elvis would be a good candidate for care coordination. His A1c is 9.2. If he is willing,can you place the dot phrase and I will follow up with him later in the week. Thanks, iMchelle Taylor RN Dry Plasterer IFOCAL LENS ASSEMBLER documented in this encounter Plan of Treatment Upcoming Encounters Date Type Specialty Care Team Description 04/23/2022 Office Visit Cardiovascular Disease Blas Peck M.D. [address] [place] [phone] (Wo rk) documented as of this encounter Visit Diagnoses Not on filedocumented in this encounter Additional Health Concerns Assessment Noted Time PHQ-9 Depression Total Score: 5 12/23/2016 8:36 AM CDT documented as of this encounter Care Teams Baggage Handling Supervisor Relationship Specialty Start Date End Date Franco Molina M.D. PCP - General 09/25/16 07/27/19 documented as of this encounter
--- OUTSIDE RECORDS SUMMARY | 2022-02-17 12:23 | XMS_ITS | Encounter Summary ---
:1950 Author Organization [facility] Address [address] [place] [address] Care Team Providers Name Role Phone Franco Molina M.D. Primary Care Provider Reason for Visit Reason Comments Med Refill Encounter Details Date Type Department Care Team Description 03/06/2018 Refill Department of [facility] Torey Molina M.D. Med Refill Internal Medicine in [address] [place] [id number] [facility] [address] Social History Tobacco Use [...] Visit Cardiovascular Disease Blas Peck M.D. [address] [place], [place] [phone] (Wo rk) documented as of this encounter Visit Diagnoses Not on filedocumented in this encounter Additional Health Concerns Assessment Noted Time PHQ-9 Depression Total Score: 5 12/23/2016 8:36 AM CDT documented as of this encounter Care Teams Consulting Property Manager Relationship Specialty Start Date End Date Franco Molina M.D. PCP - General 09/25/16 07/27/19 documented as of this encounter
--- OUTSIDE RECORDS SUMMARY | 2022-02-17 12:23 | XMS_ITS | Encounter Summary ---
:1950 Author Organization [facility] Address [address] [place] [address] Care Team Providers Name Role Phone Franco Molina M.D. Primary Care Provider Reason for Visit Reason Comments Care Coordination - Systematic Population Review Encounter Details Date Type Department Care Team Description 04/16/2018 Patient Outreach Department of Family Michelle Taylor are Coordination - Medicine, [facility] Review [address] [phone] Social History Tobacco Use Types Packs/Day Years [...] encounter Progress Notes Michelle Taylor R.N. - 04/16/2018 2:17 PM CST SUBJECTIVE REASON FOR REVIEW Referral to Adult Care Coordination Program; Systematic Population Review Elvis Dawkins was referred for potential enrollment in Adult Care Coordination. Referral Source: Primary Care Provider Referral reason/goal for enrollment: Self management of Diabetes Chronic disease measures/Risk: Patient Active Problem List Diagnosis ??? 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 Coronary Artery Disease ??? Anxiety ??? Apnea Sleep Obstructive ??? Benign Prostatic Hyperplasia Hypertrophy With Obstruction ??? Body Mass Index 34.0 To 34.9 Adult ??? Callus [place] Foot ??? Constipation ??? Congestion Nasal ??? [...] Maxillary ??? Paraphimosis ??? Hernia Inguinal Left Medication Management/High Risk Medications: Current Outpatient Prescriptions: ??? aspirin 81 mg [...] 100 strip, Rfl: 11 ??? blood-glucose meter [facility], Dispense glucose meter, test strips and lancets covered by the patientinsurance. Test 2 times per day., Disp: , Rfl: ??? busPIRone (BUSPAR) 10 mg tablet, Take 2 tablets (20 mg total) by mouth 2 (two) times a day., Disp: 360 tablet, Rfl: 3 ??? CONTOUR TEST STRIPS strips, USE ONE STRIP TO CHECK GLUCOSE ONCE DAILY BEFORE BREAKFAST, Disp: 100 strip, Rfl: 4 ??? docusate sodium (for_COLACE) 100 mg capsule, Take 100 mg by mouth daily as needed., Disp: , Rfl: ??? FLUoxetine (PROzac) 40 mg capsule, Take 1 capsule (40 mg total) by mouth every morning., Disp: 90 capsule, Rfl: 3 ??? fluticasone (for_FLONASE) 50 mcg/actuation nasal spray, Administer 2 sprays into each nostril daily., Disp: 16 g, Rfl: 2 ??? glimepiride (AMARYL) 4 mg tablet, Take 2 tablets (8 mg total) by mouth daily with breakfast., Disp: 180 tablet, Rfl: 3 ??? ipratropium (ATROVENT) 0.03 % nasal spray, Administer 2 sprays into each nostril 3 (three) timesa day as needed for rhinitis., Disp: 30 mL, Rfl: 2 ??? linagliptin (TRADJENTA) 5 mg tablet, Take 1 tablet (5 mg total) by mouth daily., Disp: 90 tablet, Rfl: 3 ??? lisinopril (for_PRINIVIL,ZESTRIL) 2.5 mg tablet, Take 1 tablet (2.5 mg total) by mouth every morning., Disp: 90 tablet, Rfl: 3 ??? metoprolol tartrate (for_LOPRESSOR) 25 mg tablet, Take 1 tablet (25 [...] by mouth daily., Disp: , Rfl: ??? polyethylene glycol (for_MIRALAX) [...] mouth daily., Disp: 90 capsule, Rfl: 3 Mental Health Measures within past 2 weeks: Promis 10 Patient Outreach from 03/30/2018 in Department of Family Medicine in [place], [place] Charting Type Initial Assessment [id number] Physical Health Raw Score 13 No flowsheet data found. GAD7 Score 04/01/2018 BONI-7 Total Score (max 21) 6 PHQ9 Score 12/23/2016 04/01/2018 PHQ-9 Total Score (max 27) 5 7 Social Needs Impacting Care: States he is lonely and has no friends Utilization: 0 ASSESSMENT/PLAN Patient referred to Adult Care Coordination Program. Plan: Discuss with SPR/SCR team. Offer enrollment in care coordination with goal of a1c of less than7.5%. IT AND COLLECTIONS REPRESENTATIVE documented in this encounter Plan of Treatment Upcoming Encounters Date Type Specialty Care Team Description 04/23/2022 Office Visit Cardiovascular Disease Blas Peck M.D. [address] [place] [phone] (Wo rk) documented as of this encounter Visit Diagnoses Not on filedocumented in this encounter Additional Health Concerns Assessment Noted Time PHQ-9 Depression Total Score: 7 04/01/2018 1:32 PM CREDIT AND COLLECTIONS REPRESENTATIVE documented as of this encounter Care Teams Stock Grader Relationship Specialty Start Date End Date Franco Molina M.D. PCP - General 09/25/16 07/27/19 documented as of this encounter
--- OUTSIDE RECORDS SUMMARY | 2022-02-17 12:23 | XMS_ITS | Encounter Summary ---
:1950 Author Organization [facility] Address [address] [place] [address] Care Team Providers Name Role Phone Franco Molina M.D. Primary Care Provider Reason for Visit Reason Comments Care Coordination - Care Plan Encounter Details Date Type Department Care Team Description 04/23/2018 Patient Outreach Department of Family Michelle Taylor are Coordination - Medicine, Brayden Asher R.N. [facility], in [place], [place] [address] [place] [phone] Social History Tobacco Use Types [...] PM CDT documented as of this encounter Patient Instructions Patient InstructionsDeMichelle moreno RMichelleN. - 04/23/2018 2:46 PM CST Main goal, sick and emergency plans of care included. CLERK documented in this encounter Plan of Treatment Upcoming Encounters Date Type Specialty Care Team Description 04/23/2022 Office Visit Cardiovascular Disease Blas Peck M.D. [address] [place], [place] [phone] (Wo rk) documented as of this encounter Visit Diagnoses Not on filedocumented in this encounter Additional Health Concerns Assessment Noted Time PHQ-9 Depression Total Score: 7 04/01/2018 1:32 PM UNIT CLERK documented as of this encounter Care Teams Associate Professor Of Sociology Relationship Specialty Start Date End Date Franco Molina M.D. PCP - General 09/25/16 07/27/19 documented as of this encounter
--- OUTSIDE RECORDS SUMMARY | 2022-02-17 12:23 | XMS_ITS | Encounter Summary ---
:1950 Author Organization [facility] Address [address] [place] [address] Care Team Providers Name Role Phone Franco Molina M.D. Primary Care Provider Reason for Visit Reason Comments Care Coordination Encounter Details Date Type Department Care Team Description 03/29/2018 Patient Outreach Department of Family Michelle Taylor , [facility] [place], [place] [address] [place] [phone] Social History Tobacco Use Types [...] encounter Progress Notes Michelle Taylor R.N. - 03/29/2018 3:04 PM CST Elvis is interested in working with care coordination. He requests I call back on to complete the screening. L ESTIMATOR documented in this encounter Plan of Treatment Upcoming Encounters Date Type Specialty Care Team Description 04/23/2022 Office Visit Cardiovascular Disease Blas Peck M.D. [address] [place], [place] [phone] (Wo rk) documented as of this encounter Visit Diagnoses Not on filedocumented in this encounter Additional Health Concerns Assessment Noted Time PHQ-9 Depression Total Score: 5 12/23/2016 8:36 AM CDT documented as of this encounter Care Teams Dual Rate Supervisor Relationship Specialty Start Date End Date Franco Molina M.D. PCP - General 09/25/16 07/27/19 documented as of this encounter
--- OUTSIDE RECORDS SUMMARY | 2022-02-17 12:23 | XMS_ITS | Encounter Summary ---
:1950 Author Organization [facility] Address [address] [place] [address] Care Team Providers Name Role Phone Franco Molina M.D. Primary Care Provider Encounter Details Date Type Department Care Team Description 04/14/2018 Clinical Support Department of Nutrition Hugh Molina M.D. [address] [address] No Show in [facility] Renetta Thrasher RDN, CHUY [address] [place] [phone] [address], [place] [address] [facility] [phone] Social History Tobacco Use Types Packs/Day Years [...] documented as of this encounter Progress Notes Renetta Thrasher RDN, LD - 04/14/2018 10:00 AM CST Patient did not show up for dietitian appointment. Will follow up per patient preference. cc: Franco Molina M.D. ARCHITECT documented in this encounter Plan of Treatment Upcoming Encounters Date Type Specialty Care Team Description 04/23/2022 Office Visit Cardiovascular Disease Blas Peck M.D. [address] [place] [phone] (Wo rk) documented as of this encounter Visit Diagnoses Not on filedocumented in this encounter Additional Health Concerns Assessment Noted Time PHQ-9 Depression Total Score: 7 04/01/2018 1:32 PM IOS ARCHITECT documented as of this encounter Care Teams Belly Dancer Relationship Specialty Start Date End Date Franco Molina M.D. PCP - General 09/25/16 07/27/19 documented as of this encounter
--- OUTSIDE RECORDS SUMMARY | 2022-02-17 12:23 | XMS_ITS | Encounter Summary ---
:1950 Author Organization [facility] Address [address] [place] [address] Care Team Providers Name Role Phone Franco Molina M.D. Primary Care Provider Reason for Visit Reason Comments Care Coordination - Offer enrollment Encounter Details Date Type Department Care Team Description 04/20/2018 Patient Outreach Department of Family Michelle Taylor are Coordination - Medicine, [place] Asher Offer [facility], in [address] [phone] Social History Tobacco Use Types [...] encounter Progress Notes Michelle Taylor, R.N. - 04/20/2018 11:38 AM CST SUBJECTIVE REASON FOR VISIT Elvis Dawkins meets the criteria for the Adult Care Coordination program. Discussed the Adult Care Coordination program and the assisted living care manager???s role with patient. Program information was provided. Understanding of the program was verbalized and Elvis agreed to participate. ASSESSMENT/PLAN Next contact: 2 day(s) by Office Visit. Discussion items for the next contact include: Baseline assessment The patient was instructed to contact the assisted living care manager with any questions or concerns and statedunderstanding of the information provided. RT LOADER documented in this encounter Plan of Treatment Upcoming Encounters Date Type Specialty Care Team Description 04/23/2022 Office Visit Cardiovascular Disease Blas Peck M.D. [address] [place] [phone] (Wo rk) documented as of this encounter Visit Diagnoses Not on filedocumented in this encounter Additional Health Concerns Assessment Noted Time PHQ-9 Depression Total Score: 7 04/01/2018 1:32 PM RETORT LOADER documented as of this encounter Care Teams Barrel Finisher Relationship Specialty Start Date End Date Franco Molina M.D. PCP - General 09/25/16 07/27/19 documented as of this encounter
--- OUTSIDE RECORDS SUMMARY | 2022-02-17 12:23 | XMS_ITS | Encounter Summary ---
:1950 Author Organization [facility] Address [address] [place] [address] Care Team Providers Name Role Phone Franco Molina M.D. Primary Care Provider Reason for Referral Outpatient (Routine) - Closed Specialty Diagnoses / Procedures Referred By Contact Refer red To Contact General Surgery Sherwin Devi M .D. [address] [phone] Referral ID Status Reason Start Date Expiration Date Visits Requ ested Visits Authorized [id number] Closed 12/24/2017 12/24/2018 1 1 Reason for Visit Reason Comments Consult left inguinal hernia Outpatient (Routine) - Closed Specialty Diagnoses / Procedures Referred By Contact Refer red To Contact General Surgery Diagnoses Hernia Inguinal Left Franco Molina M.D. [facility] [address] [place] [phone] Referral ID Status Reason Start Date Expiration Date Visits V isits Requested Authorized [id number] Closed Specialty 12/10/2017 12/10/2018 1 1 Services Required Encounter Details Date Type Department Care Team Description 12/24/2017 Comprehensive Visit Department of Sherwin Devi Pain Groin (Primary Dx); General Surgery in [facility] Asher Hernia In [address] [phone] Social History Tobacco Use Types [...] Sign Reading Time Taken Comments Blood Pressure 136/70 12/24/2017 10:59 AM CDT Pulse 68 12/24/2017 10:59 AM CDT Temperature 37.1 ??C (98.8 ??F) 12/24/2017 10:59 AM CDT Respiratory Rate - - Oxygen Saturation - - Inhaled Oxygen Concentration - - Weight - - Height - - Body Mass Index - - documented in this encounter Consult Notes Sherwin Devi M.D. - 12/24/2017 11:30 AM CDT SUBJECTIVE REASON FOR CONSULT Elvis Dawkins is a 67 y.o. male who presents for evaluation of Consult (left inguinal hernia). He was referred by Franco Molina M.D.. HISTORY OF PRESENT ILLNESS Mr. Dawkins is being seen in consultation today for complaints of a possible recurrent left inguinalhernia. Patient has had chronic left groin pain since he underwent a bilateral inguinal hernia repair done elsewhere about 15 years ago. The pain in the left inguinal region has increased however a recently. It is difficult to get an accurate history from the patient since he apparently has some decrease in his short-term memory. He has not noticed a bulge in the inguinal region. Apparently Dr. Molina felt he might have a hernia on the left side. He has also had issues with constipation I believe he is takingMetamucil and MiraLax at the present time. He had his last colonoscopy in April of this year had asmall hyperplastic polyp removed but is bowel prep was poor. He was apparently put into the system in correctly to have a repeat colonoscopy in 5 years I think it would probably be better if he had a repeat colonoscopy in 1 year from the last one because of the bowel prep being poor and the fact he hashad adenomatous polyps previously. [facility] Past Medical History: Diagnosis Date ??? Anxiety 01/03/2016 ??? Apnea Sleep Obstructive 08/28/2016 ??? Benign Prostatic Hyperplasia Hypertrophy With Obstruction 01/03/2016 ??? Body Mass Index 34.0 To 34.9 Adult 01/03/2016 ??? Callus [place] Foot 04/25/2016 ??? Congestion Nasal 01/03/2016 ??? Constipation 04/11/2015 ??? Coronary Artery Disease 01/03/2016 ??? Diabetes Mellitus Type 2 With [...] Medical Center. ??? COLONOSCOPY W/ POLYPECTOMY 05/11/[address]. Dr. Marito davis prep, quality poor. Repeat in 1yr due to poor prep. ??? CORONARY ARTERY BYPASS GRAFTS X 4 05/28/2014 ??? INGUINAL HERNIA REPAIR Bilateral Allergies Allergen Reactions ??? Sertraline Other (see comments) ??? Sulfamethoxazole-Trimethoprim Swelling . Family History Problem Relation Age of Onset ??? Deep vein thrombosis Father ??? Hypertension Mother ??? Diabetes Mother ??? Cataracts Mother ??? Irritable bowel syndrome Mother ??? Colon cancer Mother ??? Irritable bowel syndrome Grandfather ??? Parkinson disease Sister ??? Parkinsons disease Sister ??? Prostate cancer Brother REVIEW OF SYSTEMS Noncontributory OBJECTIVE PHYSICAL EXAM Vitals: 12/24/17 1059 BP: 136/70 Pulse: 68 Temp: 37.1 ??C Bilateral inguinal scars which are quite long with without evidence of obvious hernia on either the right or left. I did examine the patient standing and is especially gave attention to the left side where he has a moderate amount of discomfort and pain with examination which she does not have on the right side. I cannot feel a bulge or mass on the left side, however. DIAGNOSTICS Recent labs (last 72 hours): No results found for this or any previous visit (from the past 72 hour(s)). IMAGING No results found. ASSESSMENT #1 Hernia Inguinal Left At this point I am not having an exam that is consistent with a recurrent left inguinal hernia but it is always possible that he does have a hernia and I am just not feeling the bulge today. #2 Pain Groin This is the most likely diagnosis with left groin pain which could be related to a pull or even his previous left hernia repair since he has had pain but not at this level for the last 15 years since that a repair was done. PLAN I think a return visit in 1 month for recheck to make sure that I am not missing a hernia is in order. We have reviewed his colonoscopy report and I think in light of his poor bowel prep it would probably be best to repeat the colonoscopy a year from the last scope would which would put the procedure in this coming April. I spent about 30 min with this patient in the clinic today documented in this encounter Plan of Treatment Upcoming Encounters Date Type Specialty Care Team Description 04/23/2022 Office Visit Cardiovascular Disease Blas Peck M.D. [address] [place] [phone] (Wo rk) Scheduled Referrals Name Type Priority Associated Diagnoses Order [facility] General Surgery Outpatient Referral Routine Expec eloisa: office visit 01/23/2018 (clinic) (Approximate), Expires: 12/24/2020 documented as of this encounter Visit Diagnoses Diagnosis Pain Groin - Primary Hernia Inguinal Left documented in this encounter Additional Health Concerns Assessment Noted Time PHQ-9 Depression Total Score: 5 12/23/2016 8:36 AM CDT documented as of this encounter Care Teams Beef Skinner Relationship Specialty Start Date End Date Phyo, Phunt, M.D. PCP - General 09/25/16 07/27/19 documented as of this encounter
--- OUTSIDE RECORDS SUMMARY | 2022-02-17 12:23 | XMS_ITS | Encounter Summary ---
:1950 Author Organization [facility] Address [address] [place] [address] Care Team Providers Name Role Phone Franco Molina M.D. Primary Care Provider Reason for Referral Outpatient (Routine) - Closed Specialty Diagnoses / Referred By Contact Referred To Contact Procedures Cardiovascular Diseases / Diagnoses Coronary Artery Disease (Unspecified) Coronary Arterial Bypass Graft Status Post Personal History Franco Molina M.D. [facility] Cardiovascular Disease [facility] [place], [address] [address] Referral ID Status Reason Start Date Expiration Date Visits Requ ested Visits Authorized [id number] Closed 12/10/2017 12/10/2018 1 1 utpatient (Routine) - Closed Specialty Diagnoses / Procedures Referred By Contact Refer red To Contact Community Internal Franco Molina M.D. [facility] Medicine [facility], [address] [address] Referral ID Status Reason Start Date Expiration Date Visits Requ ested Visits Authorized [id number] Closed 12/10/2017 12/10/2018 1 1 Scheduling Instructions Three month follow-up. Need blood tests few days before appointment. utpatient (Routine) - Closed Specialty Diagnoses / Procedures Referred By Contact Refer red To Contact General Surgery Diagnoses Hernia Inguinal Left Franco Molina M.D. [facility] [place] [id number] [place], [address] [address] Referral ID Status Reason Start Date Expiration Date Visits V isits Requested Authorized [id number] Closed Specialty 12/10/2017 12/10/2018 1 1 Services Required Reason for Visit Reason Comments Follow-up 3 month follow-up from 2017. Abdominal Pain patient states that he may h ave swallowed an object. Outpatient (Routine) - Closed Specialty Diagnoses / Procedures Referred By Contact Refer red To Contact [facility] Internal Franco Molina M.D. [facility] Medicine [address], [address] [place] [address] Referral ID Status Reason Start Date Expiration Date Visits Requ ested Visits Authorized [id number] Closed 09/01/2017 02/28/2018 1 1 Encounter Details Date Type Department Care Team Description 12/10/2017 Office Visit Department of Franco Molina M.D . 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 Hyperglycemic (HCC) (Primary Dx); [facility] [address], [place] Prostatic Hyperplasia Hypertrophy With Obstruction; Medicine in [place] [address] Overactive Bladder; [place], [place], [place] Paraphimosis; [address] [address] Irritable Bowel Syndrome With Constipati on; [place], [place] Hernia I nguinal Left; [phone] Hypertensive Heart And Chron ic Kidney Disease Without Heart Failure And With Stage 2 (Mild) Chronic Kidney Disease; [phone] Coronary Artery Disease; Coronary Arteri al Bypass Graft Status Post Personal History; Hyperlipidemia; High Risk Medic ation Social History Tobacco [...] Sign Reading Time Taken Comments Blood Pressure 117/67 12/10/2017 1:10 PM CDT Pulse 70 12/10/2017 1:10 PM CDT Temperature 36.6 ??C (97.9 ??F) 12/10/2017 1:10 PM CDT Respiratory Rate 20 12/10/2017 1:10 PM CDT Oxygen Saturation - - Inhaled Oxygen Concentration - - Weight 103 kg (226 lb 6.6 oz) 12/10/2017 1:10 PM CDT Height 174 cm (5' 8.5) 12/10/2017 1:10 PM CDT Body Mass Index 33.92 12/10/2017 1:10 PM CDT documented in this encounter Progress Notes Franco Molina M.D. - 12/10/2017 1:30 PM CDT SUBJECTIVE CHIEF COMPLAINT/REASON FOR VISIT 1. Followup on chronic medical problems. 2. Discuss test results. HISTORY OF PRESENT ILLNESS Elvis Dawkins is a 67 y.o. male who presents to the clinic today for a three month followup. I last saw him on 10/16/2017. He was eating watermelon with a plastic fork 3-4 weeks ago. He feels that he may have swallowed small pieces of a fork. He has occasional left lower abdominal pain. He denies fever or chills. At his last visit, he was referred to Urology at [facility] for urinary obstruction with paraphimosis. This was denied and advised to see urology locally. He now has an appointment with Dr. Mcdermott next month. He continues to have occasional penile pain. He notices that his urine is often c loudy. 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 We stopped Metformin in October 2017 because of abdominal discomfort. His insurance refused to cover Januvia so he has been taking Tradjenta. He checks his blood sugar daily at home, usually around 150. Patient has coronary artery disease with coronary artery bypass grafting x 4, hypertension, and stage 2 chronic kidney disease. He had aching in his chest and abdomen yesterday. He did not need to takeNitroglycerin. I reviewed and updated his medication list. We discussed potential side effects. There are no additional questions, concerns, or complaints. CURRENT MEDICATIONS Current Outpatient Prescriptions Medication Sig Dispense [...] Dx:E11.9 100 strip 11 ??? blood-glucose meter [facility] Dispense glucose meter, test strips and lancets covered by the patient insurance. Test 2 times per day. ??? busPIRone (for_BUSPAR) 10 mg tablet Take 2 tablets by mouth 2 (two) times a day. ??? CONTOUR TEST STRIPS strips USE ONE [...] mouth daily. 90 tablet 3 ??? lisinopril (for_PRINIVIL,ZESTRIL) 2.5 mg tablet Take 1 tablet (2.5 mg total) by mouth every morning. 90 tablet 3 ??? metoprolol tartrate (for_LOPRESSOR) [...] times a day. 180tablet 3 ??? tamsulosin (for_FLOMAX) 0.4 mg 24 hr capsule Take 1 capsule (0.4 mg total) by mouth daily. 100 capsule 3 No current facility-administered medications for this visit. ALLERGIES/CONTRAINDICATIONS Allergies Allergen Reactions ??? Sertraline Other (see comments) ??? Sulfamethoxazole-Trimethoprim Swelling REVIEW OF SYSTEMS Please see history of present illness for pertinent positives, otherwise rest of review of systems negative. MEDICAL HISTORY Past Medical History: Diagnosis Date ??? Anxiety 01/03/2016 ??? Apnea Sleep Obstructive 08/28/2016 ??? Benign Prostatic Hyperplasia Hypertrophy With Obstruction 01/03/2016 ??? Body Mass Index 34.0 To 34.9 Adult 01/03/2016 ??? Callus [place] Foot 04/25/2016 ??? Congestion Nasal 01/03/2016 ??? [...] Four colon polyps. Repeat in 3 years. [facility]. ??? COLONOSCOPY W/ POLYPECTOMY 05/11/[address]/[place]. Dr. Marito davis prep, quality poor. Repeat in 5 years. ??? CORONARY ARTERY BYPASS GRAFTS X 4 05/28/2014 ??? INGUINAL HERNIA REPAIR Bilateral SOCIAL HISTORY Social History Social History ??? Marital status: Spouse name: N/A ??? Number of children: N/A ??? 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 Smoking status: Never Smoker ??? Smokeless tobacco: Never Used ??? Alcohol use None ??? Drug use: Unknown ??? Sexual activity: Not Asked Other Topics Concern ??? None Social History Narrative ??? None FAMILY HISTORY Family History Problem Relation Age of Onset ??? Deep vein thrombosis Father ??? Hypertension Mother ??? Diabetes Mother ??? Cataracts Mother ??? Irritable bowel syndrome Mother ??? Colon cancer Mother ??? Irritable bowel syndrome Grandfather ??? Parkinson disease Sister ??? Parkinsons disease Sister ??? Prostate cancer Brother OBJECTIVE VITAL SIGNS Vitals: 12/10/17 1310 BP: 117/67 Patient Position: Sitting Pulse: 70 Temp: 36.6 ??C Resp: 20 Height: 174 cm Weight: 102.7 kg TempSrc: Temporal PHYSICAL EXAMINATION General: Patient is sitting. No distress. Able to talk without interruption. Skin: No rash, bruise or nodules. Head: No facial rash, asymmetry or sinus tenderness. Eyes: PERRLA. EOMI. No pallor, icterus or conjunctivitis. ENT: No nasal congestion, discharge or bleeding. There is no ear infection or discharge. No mastoid tenderness. Tongue is moist and midline. No oral lesions. Heart: No carotid bruit. No JVD. Regular rhythm. There is no S3, gallop, murmur or thrill. Lungs: Normal respiratory effort. Clear to auscultation. Normal percussion. Abdomen: Moves with respiration. Bowel sounds present. Soft. No rebound tenderness, guarding or rigidity. No organomegaly. Genitalia: There is skin restricting middle of penile shaft. No swelling at this time. No urethral discharge. Normal testicles. No hydrocele. He has cough impulse present on the left side. Spine: No scoliosis or kyphosis. No spinous tenderness or mass. Extremities: No clubbing, cyanosis, edema, infection or calf tenderness. Mental: Alert and oriented x 3. Normal mood and affect. Neuro: Grossly nonfocal. ASSESSMENT / PLAN #1 Diabetes Mellitus Type 2 With Diabetic Neuropathy Hyperglycemic (HCC) PLAN: Patient was advised to continue current [place] [employer] diet, regular exercise, and current medications. Need to monitor blood sugar regularly. Self-management goals of diabetes mellitus were reviewed. Need to check hemoglobin A1c today and every 3 months. #2 Benign Prostatic Hyperplasia Hypertrophy With Obstruction #3 Overactive Bladder #4 Paraphimosis #5 Irritable Bowel Syndrome With Constipation PLAN: He was advised to keep appointment with Dr. Mcdermott on 12/24/2017. He will continue Oxybutynin and Flomax. He was advised to have enough fiber in his diet. #6 Hernia Inguinal Left PLAN: We will refer him to Dr. Sherwin Devi, General Surgeon, for further evaluation and management. #7 Hypertensive Heart And Chronic Kidney Disease Without Heart Failure And With Stage 2 (Mild) Chronic Kidney Disease #8 Coronary Artery Disease #9 Coronary Arterial Bypass Graft Status Post Personal History PLAN: Patient is stable from a cardiac standpoint. There is no angina or evidence of congestive heart failure. Blood pressure is controlled. Blood pressure goal is less than 140/90 mmHg. Monitor blood pressure. Need to continue current medications, sodium restricted diet, and cardiovascular risk factor modification. He should follow with Cardiology in January 2018. #10 Hyperlipidemia PLAN: Patient was advised to continue low cholesterol, low fat diet, regular exercise, and current medication. Need to check fasting lipid profile every 12 months. #11 Renew Medications PLAN: The following medications were renewed: Prozac. #12 Today Studies PLAN: Patient had following studies done today: ALT, AST, BMP, CK, and Hemoglobin A1c. Patient will be notified with results & recommendations. #13 Followup Visit PLAN: Return to the clinic in 3 months for followup with following tests prior to appointment: ALT, AST, BMP, CBC, CK, and Hemoglobin A1c. Administrative Billing 30 minutes of this 35 minute visit was spent in face to face counseling and coordination of care. This document serves as a record of services personally performed by Dr. Franco Molina. It was created on their behalf by Balaji Larios, a trained medical coder. The creation of this record is based on the scribe's personal observations and the provider's statements to them. This document has been checked and approved by the attending provider. Franco Molina M.D. - 12/10/2017 1:30 PM CDT Please call him. Sodium is slightly low, but not serious. It is most likely due to uncontrolled diabetes mellitus. Tests for liver and muscle enzymes are okay. Hemoglobin A1c is high. He needs to cut back calories, carbohydrates and portion of meals. He needs to see diabetes mellitus education team at [facility] in [place]. He needs to see medication technician. Orders in EHR. Estefany Mark L.PMichelleN. - 12/10/2017 1:30 PM CDT Left message for patient to return our call. Estefany Mark L.P.N. - 12/10/2017 1:30 PM CDT Patient notified of results and Dr. Molina's recommendations. Patient expressed understanding. Patientstated he would call back to schedule. documented in this encounter Plan of Treatment Upcoming Encounters Date Type Specialty Care Team Description 04/23/2022 Office Visit Cardiovascular Disease Blas Peck M.D. [address] [place] [address] [phone] (Wo rk) Scheduled Referrals Name Type Priority Associated Order Schedule Diagnoses General Surgery - Outpatient Referral Routine Hernia Inguinal Expected: General consult Left 12/10/2017 (clinic) (Approximate), Expires: 12/10/2020 Community Internal Outpatient Referral Routine Ex pected: Medicine office visit 2017 (clinic) (Approximate), Expires: 12/10/2020 Cardiovascular Disease Outpatient Referral Routine Coronary Ar douglas Expected: - General consultative Disease 12/10/2017 cardiology consult Coronary Arterial (Jona roximate), (clinic) Bypass Graft Expires: Status Post 12/10/2020 Personal History documented as of this encounter Procedures Procedure Name Priority Date/Time Associated Diagnosis Comme nts ALANINE AMINOTRANSFERASE Routine 12/10/2017 2:08 Diabetes Nona itus Results for this (ALT), S/P PM CDT Type 2 With Diabetic procedu re are in Neuropathy the results Hyperglycemic (H CC) section. Coronary Artery Disease Hyperlipidemia High Risk Medication ASPARTATE Routine 12/10/2017 2:08 Diabetes Mellitus Results for this AMINOTRANSFERASE (AST), PM CDT Type 2 With Diabe tic procedure are in S/P Neuropathy the results Hyperglycemic (H CC) section. Coronary Artery Disease Hyperlipidemia High Risk Medication HEMOGLOBIN A1C, B Routine 12/10/2017 2:08 Diabetes Mellitus Re sults for this PM CDT Type 2 With Diabetic procedu re are in Neuropathy the results Hyperglycemic (HCC) section. CREATINE KINASE (CK), S Routine 12/10/2017 2:08 Diabetes Melli tus Results for this PM CDT Type 2 With Diabetic procedu re are in Neuropathy the results Hyperglycemic (H CC) section. Coronary Artery Disease Hyperlipidemia High Risk Medication BASIC METABOLIC PANEL, Routine 12/10/2017 2:08 Diabetes Mellit us Results for this S/P PM CDT Type 2 With Diabetic procedu re are in Neuropathy the results Hyperglycemic (H CC) section. Hypertensive Heart And Chronic Kidney Disease Without Heart Failure And With Stage 2 (Mild) Chronic Kidney Disease Coronary Artery Disease documented in this encounter Results (ABNORMAL) Hemoglobin A1c (03/12/2018 11:08 AM OBSTETRICIAN AND GYNAECOLOGIST) P athologist Signature Hemoglobin A1c, 9.2 (H) 4.2 - 5.6 03/12/2018 [facility] B % 2:14 PM OBSTETRICIAN AND GYNAECOLOGIST [facility] Comment: Hemoglobin A1c values greater than or eq ual to 6.5 percent are diagnostic for diabetes mellitus. ?? Diagnosis should be confirmed by repeat testing. ??In diabet ic patients, HbA1c goals should be discussed with healthcar e provider. Specimen Anatomical Collection Method Collection Time Receive d Time (Source) Location / / Volume Laterality Blood (Blood, 03/12/2018 11:08 03/12/2018 1:25 Venous) AM OBSTETRICIAN AND GYNAECOLOGIST PM OBSTETRICIAN AND GYNAECOLOGIST Phunt Phyo M.D. LAB BLOOD ADD-ON Performing Organization Address City/State/ZIP Code Phon e Number [facility] [place] [address] [place] [address] LAB CK (Creatine Kinase) (03/12/2018 11:08 AM OBSTETRICIAN AND GYNAECOLOGIST) P athologist Signature Creatine Kinase 257 39 - 308 03/12/2018 [facility] (CK), S U/L 3:42 PM [facility] LAB Specimen Anatomical Collection Method Collection Time Receive d Time (Source) Location / / Volume Laterality Blood (Blood, 03/12/2018 11:08 03/12/2018 3:18 Venous) AM OBSTETRICIAN AND GYNAECOLOGIST PM OBSTETRICIAN AND GYNAECOLOGIST Phunt Phyo M.D. LAB BLOOD ADD-ON Performing Organization Address City/State/ZIP Code Phon e Number [facility]- [address] [place] [address] [place] [facility] ALT (Alanine Aminotransferase) (03/12/2018 11:08 AM OBSTETRICIAN AND GYNAECOLOGIST) [facility] Method Time Signature Alanine 13 7 - 55 03/12/2018 [facility] Aminotransferase U/L 2:09 PM OBSTETRICIAN AND GYNAECOLOGIST [employer] (ALT), S SYSTEM- [employer] [facility] LAB Specimen Anatomical Collection Method Collection Time Receive d Time (Source) Location / / Volume Laterality Blood (Blood, 03/12/2018 11:08 03/12/2018 1:25 Venous) AM OBSTETRICIAN AND GYNAECOLOGIST PM OBSTETRICIAN AND GYNAECOLOGIST Phunt Phyo M.D. LAB BLOOD ADD-ON Performing Organization Address City/State/ZIP Code Phon e Number [facility] [place] [address] [place] [address] LAB AST (Aspartate Aminotransferase) (03/12/2018 11:08 AM OBSTETRICIAN AND GYNAECOLOGIST) [facility] Method Time Signature Aspartate 19 8 - 48 03/12/2018 [facility] Aminotransferase U/L 2:09 PM OBSTETRICIAN AND GYNAECOLOGIST [employer] (AST), S [facility]- [facility] Specimen Anatomical Collection Method Collection Time Receive d Time (Source) Location / / Volume Laterality Blood (Blood, 03/12/2018 11:08 03/12/2018 1:25 Venous) AM OBSTETRICIAN AND GYNAECOLOGIST PM OBSTETRICIAN AND GYNAECOLOGIST Franco Molina M.D. LAB BLOOD ADD-ON Performing Organization Address City/State/ZIP Code Phon e Number [facility]ITALVign[facility] Consultancy ServicesATONNA [address] [place] [address] LAB (ABNORMAL) Basic Metabolic Panel (03/12/2018 11:08 AM [facility]) P athologist Signature Potassium, S 5.0 3.6 - 5.2 03/12/2018 [facility] mmol/L 2:09 PM [facility] [employer] LAB Sodium, S 135 135 - 145 03/12/2018 [facility] mmol/L 2:09 PM [facility] Chloride, S 98 98 - 107 03/12/2018 [facility] mmol/L 2:09 PM [facility] Bicarbonate, S 28 22 - 29 03/12/2018 [facility] mmol/L 2:09 PM [facility] [employer] [facility] LAB Anion Gap 9 7 - 15 03/12/2018 [facility] 2:09 PM [facility] BUN (Blood Urea 10 8 - 24 03/12/2018 [facility] Nitrogen), S mg/dL 2:09 PM [facility] Creatinine 1.02 0.74 - 03/12/2018 [facility] 1.35 mg/dL 2:09 PM [facility] eGFR-Non 76 >=60 03/12/2018 [facility] Black/ mL/min/BSA 2:09 PM [facility] - [place] LAB Comment: ----ADDITIONAL INFORMATION---- Estimated GFR calculated using the 2009 CKD_EPI creatinine equation. eGFR-Black/ 88 >=60 mL/min/BSA 2017 2:09 PM [facility] Comment: ----ADDITIONAL INFORMATION---- Estimated GFR calculated using the 2009 CKD_EPI creatinine equation. Calcium, Total, S 9.7 8.8 - 10.2 mg/dL 03/12/2018 2:09 PM [facility] LAB Glucose, S 198 (H) 70 - 140 mg/dL 03/12/2018 2:09 PM [facility] [place] LAB Specimen Anatomical Collection Method Collection Time Receive d Time (Source) Location / / Volume Laterality Blood (Blood, 03/12/2018 11:08 03/12/2018 1:25 Venous) AM OBSTETRICIAN AND GYNAECOLOGIST PM OBSTETRICIAN AND GYNAECOLOGIST Franco Molina M.D. LAB BLOOD ADD-ON Performing Organization Address City/State/ZIP Code Phon e Number [facility]ITALVignyan Consultancy ServicesATONNA [address] [facility] [place] [address] LAB CBC without Differential (03/12/2018 11:08 AM OBSTETRICIAN AND GYNAECOLOGIST) athologist Signature Hemoglobin 15.6 13.2 - 03/12/2018 [facility] 16.6 g/dL 11:12 AM [facility] [employer] LAB Hematocrit 46.6 38.3 - 03/12/2018 [facility] 48.6 % 11:12 AM [facility] Erythrocytes 5.39 4.35 - 03/12/2018 [facility] 5.65 11:12 AM [facility] x10(12)/L [facility] MCV 86.5 78.2 - 03/12/2018 [facility] 97.9 fL 11:12 AM [facility] [employer] LAB RBC Distrib Width 14.1 11.8 - 03/12/2018 [facility] 14.5 % 11:12 AM [facility] Platelet Count 173 135 - 317 03/12/2018 [facility] x10(9)/L 11:12 AM [facility] Leukocytes 7.2 3.4 - 9.6 03/12/2018 [facility] x10(9)/L 11:12 AM [facility] Specimen Anatomical Collection Method Collection Time Receive d Time (Source) Location / / Volume Laterality Blood (Blood, 03/12/2018 11:08 03/12/2018 Venous) AM OBSTETRICIAN AND GYNAECOLOGIST 11:08 AM OBSTETRICIAN AND GYNAECOLOGIST Franco Molina M.D. LAB BLOOD ADD-ON Performing Organization Address City/State/ZIP Code Phon e Number [facility]userADgentsIBAULT [address] [place] [address] LAB (ABNORMAL) Hemoglobin A1c (12/10/2017 2:08 PM CDT) athologist Signature Hemoglobin A1c, 8.2 (H) 4.2 - 5.6 12/10/2017 [facility] B % 3:54 PM CDT [facility] LAB Comment: Hemoglobin A1c values greater than or eq ual to 6.5 percent are diagnostic for diabetes mellitus. ?? Diagnosis should be confirmed by repeat testing. ??In diabet ic patients, HbA1c goals should be discussed with healthcar e provider. Specimen Anatomical Collection Method Collection Time Receive d Time (Source) Location / / Volume Laterality Blood (Blood, 12/10/2017 2:08 PM 12/11/19 18 3:20 Venous) CDT PM CDT Franco Molina M.D. LAB BLOOD ADD-ON Performing Organization Address City/State/ZIP Code Phon e Number [facility] [address] [place] [address] LAB CK (Creatine Kinase) (12/10/2017 2:08 PM CDT) athologist [facility] Creatine Kinase 250 39 - 308 12/10/2017 [facility] (CK), S U/L 9:22 PM CDT [facility] LAB Specimen Anatomical Collection Method Collection Time Receive d Time (Source) Location / / Volume Laterality Blood (Blood, 12/10/2017 2:08 PM 12/11/19 18 9:05 Venous) CDT PM CDT Franco Molina M.D. LAB BLOOD ADD-ON Performing Organization Address City/State/ZIP Code Phon e Number [facility]- [address] [place] [address] [place] LAB ALT (Alanine Aminotransferase) (12/10/2017 2:08 PM CDT) Patholo gist Method Time Signature Alanine 14 7 - 55 12/10/2017 [facility] Aminotransferase U/L 6:14 PM CDT [employer] (ALT), S [facility] LAB Specimen Anatomical Collection Method Collection Time Receive d Time (Source) Location / / Volume Laterality Blood (Blood, 12/10/2017 2:08 PM 12/11/19 18 5:54 Venous) CDT PM CDT Franco Molina M.D. LAB BLOOD ADD-ON Performing Organization Address City/State/ZIP Code Phon e Number [facility] [place] [address] [place] [address] LAB AST (Aspartate Aminotransferase) (12/10/2017 2:08 PM CDT) Patholo gist Method Time Signature Aspartate 21 8 - 48 12/10/2017 [facility] Aminotransferase U/L 6:14 PM CDT HEALTH (AST), S SYSTEM- [facility] LAB Specimen Anatomical Collection Method Collection Time Receive d Time (Source) Location / / Volume Laterality Blood (Blood, 12/10/2017 2:08 PM 12/11/19 18 5:54 Venous) CDT PM CDT Franco Molina M.D. LAB BLOOD ADD-ON Performing Organization Address City/State/ZIP Code Phon e Number [facility] [place] [address] [place] [address] LAB (ABNORMAL) Basic Metabolic Panel (12/10/2017 2:08 PM CDT) P athologist Signature Potassium, S 4.6 3.6 - 5.2 12/10/2017 [facility] mmol/L 6:14 PM T [facility] LAB Sodium, S 133 (L) 135 - 145 12/10/2017 [facility] mmol/L 6:14 PM T [facility] LAB Chloride, S 96 (L) 98 - 107 12/10/2017 [facility] mmol/L 6:14 PM T [facility] LAB Bicarbonate, S 27 22 - 29 12/10/2017 [facility] mmol/L 6:14 PM [facility]- [facility] LAB Anion Gap 10 7 - 15 12/10/2017 [facility] 6:14 PM T [facility] BUN (Blood Urea 13 8 - 24 12/10/2017 [facility] Nitrogen), S mg/dL 6:14 PM T [facility] [place] LAB Creatinine 1.06 0.74 - 12/10/2017 [facility] [facility] 1.35 mg/dL 6:14 PM T [facility] eGFR-Non 73 >=60 12/10/2017 [facility] Black/ mL/min/BSA 6:14 PM CDT [facility] [place] [facility] Comment: ----ADDITIONAL INFORMATION---- Estimated GFR calculated using the 2009 CKD_EPI creatinine equation. eGFR-Black/ 84 >=60 mL/min/BSA 2017 6:[address] [facility] Comment: ----ADDITIONAL INFORMATION---- Estimated GFR calculated using the 2009 CKD_EPI creatinine equation. Calcium, Total, S 9.5 8.8 - 10.2 mg/dL 12/10/2017 6:14 PM [facility] [place] [facility] Glucose, S 227 (H) 70 - 140 mg/dL 12/10/2017 6:14 PM [facility] Specimen Anatomical Collection Method Collection Time Receive d Time (Source) Location / / Volume Laterality Blood (Blood, 12/10/2017 2:08 PM 12/11/19 18 5:54 Venous) CDT PM CDT Franco Molina M.D. LAB BLOOD ADD-ON Performing Organization Address City/State/ZIP Code Phon e Number [facility] [address] [place] [address] LAB documented in this encounter Visit Diagnoses Diagnosis 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 Hyperglycemic (HCC) - Primary Benign Prostatic Hyperplasia Hypertrophy With Obstruction Overactive Bladder Paraphimosis Irritable Bowel Syndrome With Constipati on Hernia Inguinal Left Hypertensive Heart And Chronic Kidney Di sease Without Heart Failure And With Stage 2 (Mild) Chronic Kidney Disease Coronary Artery Disease (Unspecified) Coronary Arterial Bypass Graft Status Po st Personal History Hyperlipidemia High Risk Medication documented in this encounter Additional Health Concerns Assessment Noted Time PHQ-9 Depression Total Score: 5 12/23/2016 8:36 AM CDT documented as of this encounter Care Teams Public Transportation Inspector Relationship Specialty Start Date End Date Franco Molina M.D. PCP - General 09/25/16 07/27/19 documented as of this encounter
--- OUTSIDE RECORDS SUMMARY | 2022-02-17 12:23 | XMS_ITS | Encounter Summary ---
:1950 Author Organization [facility] Address [address] [place] [address] Care Team Providers Name Role Phone Franco Molina M.D. Primary Care Provider Reason for Visit Reason Comments Med Refill Encounter Details Date Type Department Care Team Description 01/18/2018 Refill Department of [facility] Torey Molina M.D. Med Refill Internal Medicine in [address] [place] [id number] [address] [place] [address] Social History Tobacco Use [...] Visit Cardiovascular Disease Blas Peck M.D. [address] [place], [place] [phone] (Wo rk) documented as of this encounter Visit Diagnoses Not on filedocumented in this encounter Additional Health Concerns Assessment Noted Time PHQ-9 Depression Total Score: 5 12/23/2016 8:36 AM CDT documented as of this encounter Care Teams Event Av Operator Relationship Specialty Start Date End Date Franco Molina M.D. PCP - General 09/25/16 07/27/19 documented as of this encounter
--- OUTSIDE RECORDS SUMMARY | 2022-02-17 12:23 | XMS_ITS | Encounter Summary ---
:1950 Author Organization [facility] Address [address] [place] [address] Care Team Providers Name Role Phone Franco Molina M.D. Primary Care Provider Reason for Referral Outpatient (Routine) - Closed Specialty Diagnoses / Procedures Referred By Contact Refer red To Contact Urology Diagnoses Paraphimosis Franco Molina M.D. [facility] [address] [place] [address] [address] [place] [address] Referral ID Status Reason Start Date Expiration Date Visits Requ ested Visits Authorized [id number] Closed 11/19/2017 11/19/2018 1 1 Reason for Visit Reason Onset Date Comments Referral 11/18/2017 Encounter Details Date Type Department Care Team Description 11/18/2017 Clinical Communication Department of [facility] Franco Molina M.D. Referral Medicine, [address], in [address] [address] Social History Tobacco Use Types [...] Telephone Encounter - Estefany Mark L.P.N. - 11/19/2017 3:48 PM CDT Please call and assist patient in scheduling an appointment with Urology. Telephone Encounter - Franco Molina M.D. - 11/19/2017 3:36 PM CDT Order for Urology consultation for evaluation of paraphimosis in EHR. Telephone Encounter - Estefany Mark L.P.N. - 11/19/2017 3:13 PM CDT Called patient and informed him of this message. Patient verbalized understanding and stated that hewould like a referral to a local urologist. Please advise. Telephone Encounter - Franco Molina M.D. - 11/19/2017 9:13 AM CDT Please call the patient with following message I received from [facility]. Gita from Dr Keita's team in [place] called. There is a referral in the system from you for a consult for a paraphimosis. They said to see notes they put in with their recommendations. They have seen this patient in the past and he did not have a true paraphimosis, if he does truly have that theyrecommended ED. Otherwise they said to have him followup with a local urologist Telephone Encounter - Rodriguez Cierra Laury - 11/18/2017 3:53 PM CDT Gita from Dr Keita's team in [place] called. There is a referral in the system from you for a consult for a paraphimosis. They said to see notes they put in with their recommendations. They have seen this patient in the past and he did not have a true paraphimosis, if he does truly have that they recommended ED. Otherwise they said to have him followup with a local urologist. documented in this encounter Plan of Treatment Upcoming Encounters Date Type Specialty Care Team Description 04/23/2022 Office Visit Cardiovascular Disease Blas Peck M.D. [address] [place] [phone] (Wo rk) Scheduled Referrals Name Type Priority Associated Diagnoses Order S [facility] Urology - Outpatient Referral Routine Paraphimosis Expected : Other/benign - 11/19/2017 [facility] consult (Approximate) , (clinic) Expires: 11/19/2020 documented as of this encounter Visit Diagnoses Diagnosis Paraphimosis - Primary documented in this encounter Additional Health Concerns Assessment Noted Time PHQ-9 Depression Total Score: 5 12/23/2016 8:36 AM CDT documented as of this encounter Care Teams Scuba Diving Teacher Relationship Specialty Start Date End Date Franco Molina M.D. PCP - General 09/25/16 07/27/19 documented as of this encounter
--- OUTSIDE RECORDS SUMMARY | 2022-02-17 12:23 | XMS_ITS | Encounter Summary ---
:1950 Author Organization [facility] Address [address] [place] [address] Care Team Providers Name Role Phone Franco Molina M.D. Primary Care Provider Encounter Details Date Type Department Care Team Description 12/11/2017 Orders Only Department of Franco Molina M.D . Diabetes Mellitus Type Community Internal [address], 2 ( HCC) (Primary Dx) Medicine in [address] [address] [address] [facility] [place] [place] [address] Social History Tobacco Use Types [...] Disease Blas Peck M.D. [address] [place], [place] [phone] (Wo rk) documented as of this encounter Visit Diagnoses Diagnosis Diabetes Mellitus Type 2 (HCC) - Primary documented in this encounter Additional Health Concerns Assessment Noted Time PHQ-9 Depression Total Score: 5 12/23/2016 8:36 AM CDT documented as of this encounter Care Teams Care Transition Manager Relationship Specialty Start Date End Date Franco Molina M.D. PCP - General 09/25/16 07/27/19 documented as of this encounter
--- OUTSIDE RECORDS SUMMARY | 2022-02-17 12:23 | XMS_ITS | Encounter Summary ---
:1950 Author Organization [facility] Address [address] [place] [address] Care Team Providers Name Role Phone Franco Molina M.D. Primary Care Provider Encounter Details Date Type Department Care Team Description 12/15/2017 Clinical Communication Department of Nabeel Molina M.D. [facility] Internal [address] [place] [address], [facility] in [address] [facility] [address] [place] [address] Social History Tobacco Use Types [...] Cardiovascular Disease Blas Peck M.D. [address] [place] [phone] (Wo rk) documented as of this encounter Visit Diagnoses Not on filedocumented in this encounter Additional Health Concerns Assessment Noted Time PHQ-9 Depression Total Score: 5 12/23/2016 8:36 AM CDT documented as of this encounter Care Teams Wood Shop Teacher Relationship Specialty Start Date End Date Franco Molina M.D. PCP - General 09/25/16 07/27/19 documented as of this encounter
--- OUTSIDE RECORDS SUMMARY | 2022-02-17 12:23 | XMS_ITS | Encounter Summary ---
:1950 Author Organization [facility] Address [address] [place] [address] Care Team Providers Name Role Phone Franco Molina M.D. Primary Care Provider Encounter Details Date Type Department Care Team Description 04/19/2018 Orders Only [facility] [address] [place] [phone] (Wo rk) Social History Tobacco Use Types [...] Visit Cardiovascular Disease Blas Peck M.D. [address] [place] [phone] (Wo rk) documented as of this encounter Visit Diagnoses Not on filedocumented in this encounter Additional Health Concerns Assessment Noted Time PHQ-9 Depression Total Score: 7 04/01/2018 1:32 PM QUALITY ASSURANCE TEST PROGRAM MANAGER documented as of this encounter Care Teams Capper Machine Operator Relationship Specialty Start Date End Date Franco Molina M.D. PCP - General 09/25/16 07/27/19 documented as of this encounter
--- OUTSIDE RECORDS SUMMARY | 2022-02-17 12:23 | XMS_ITS | Encounter Summary ---
:1950 Author Organization [facility] Address [address] [place] [address] Care Team Providers Name Role Phone Franco Molina M.D. Primary Care Provider Reason for Referral Outpatient (Routine) - Closed Specialty Diagnoses / Procedures Referred By Contact Refer red To Contact [facility] Internal Franco Molina M.D. [facility] Medicine [address], [address] [place] [address] Referral ID Status Reason Start Date Expiration Date Visits Requ ested Visits Authorized [id number] Closed 03/15/2018 03/15/2019 1 1 Scheduling Instructions Three month follow-up. Need blood tests few days before appointment. PAPER EDITOR Reason for Visit Reason Comments Follow-up three month follow-up from 0 12/10/2017 Outpatient (Routine) - Closed Specialty Diagnoses / Procedures Referred By Contact Refer emily To Contact [facility] Franco Molina M.D. [facility] Medicine [address], [address] [place] [address] Referral ID Status Reason Start Date Expiration Date Visits Requ ested Visits Authorized [id number] Closed 12/10/2017 12/10/2018 1 1 Encounter Details Date Type Department Care Team Description 03/15/2018 Office Visit Department of Franco Molina M.D . 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 Hyperglycemic (HCC) (Primary Dx); [facility] [address], [place]fred[place] ign Prostatic Hyperplasia With Lower Urinary Tract Symptom; Medicine in [address] Overactive Bladder; [place], [place], [place] Hypertensive Heart And Chron ic Kidney Disease Without Heart Failure And With Stage 2 (Mild) Chronic Kidney Disease; [address] [address] Coronary Artery Disease; MARQUEZ MENDOSA Coronary Arterial Bypass Graft Status Post Personal History; [id number] Hyponatremia; [phone] Irritable Bowel Syndrome With Constipation; High Risk Medic ation Social History Tobacco [...] Sign Reading Time Taken Comments Blood Pressure 121/67 03/15/2018 11:12 AM NEWSPAPER EDITOR Pulse 73 03/15/2018 11:12 AM NEWSPAPER EDITOR Temperature - - Respiratory Rate 16 03/15/2018 11:12 AM NEWSPAPER EDITOR Oxygen Saturation - - Inhaled Oxygen Concentration - - Weight 102 kg (224 lb 5.1 oz) 03/15/2018 11:12 AM NEWSPAPER EDITOR Height 172.7 cm (5' 8) 03/15/2018 11:12 AM NEWSPAPER EDITOR Body Mass Index 34.11 03/15/2018 11:12 AM NEWSPAPER EDITOR documented in this encounter Patient Instructions Patient InstructionsFranco Molina M.D. - 03/15/2018 11:30 AM CST Your diabetes mellitus is out of control. You need to see commercial glazier, diabetes mellitus educator and rug setter [place] for better control of diabetes mellitus. He should make an appointment to see [facility] in [place]. If you continue to have problem with urination and frequent urinary tract infection, you should consider seeing a urologist for consideration of circumcision. Return to clinic in 3 months for follow-up. Please do non-fasting blood test few days prior to the appointment. PAPER EDITOR documented in this encounter Progress Notes Franco Molina M.D. - 03/15/2018 11:30 AM CST SUBJECTIVE CHIEF COMPLAINT/REASON FOR VISIT 1. Followup on chronic medical problems. 2. Discuss test results. HISTORY OF PRESENT ILLNESS Elvis Dawkins is a 67 y.o. male who presents to the clinic today for a three month followup from 12/10/2017. I reviewed interval history. He has coronary artery disease with coronary artery bypass grafting x 4, hypertension with stage 2 chronic kidney disease, and hyperlipidemia. He followed with Dr. Blas Peck, Roll Repairer, on 12/16/2017. Medication was continued. He was advised to retry CPAP. He needs followup in 6 months. He had general surgery consult with Dr. Sherwin Devi on 12/24/2017 for possible recurrent left inguinal hernia. His left groin pain was thought to be related to a pull or previous hernia repair. He followed with Dr. Devi on 01/21 and observation was recommended. Patient saw Sabrina Valadez APRN, in urology on 12/24/2017 for paraphimosis. Foreskin care was discussed. Flomax and Oxybutynin were continued for benign prostatic hypertrophy and prostatitis. He wentto urgent care on 02/04/2018 for dysuria. UA was negative for infection. It was recommended to control his diabetes. We discussed test results from 03/12/2018. Results were remarkable for normal CBC and electrolytes, EGFR 76, glucose 198, normal liver enzymes and CK, and hemoglobin A1c 9.2. 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 His hemoglobin A1c increased from 8.2 to 9.2. He checks his blood sugar occasionally and was 199 today. He is currently on Tradjenta and Glimepiride. He did not tolerate Metformin in the past. He has irritable bowel syndrome. He continues to have issues with his bowel movements, which he relates partly to stress. I reviewed and updated his medication list. [...] Dx:E11.9 100 strip 11 ??? blood-glucose meter [facility] [place] Dispense glucose meter, test strips and lancets covered by the patient insurance. Test 2 times per day. ??? busPIRone (BUSPAR) 10 mg tablet Take 2 tablets (20 mg total) by mouth 2 (two) times a day. 360 tablet 3 ??? CONTOUR TEST STRIPS strips [...] 34.0 To 34.9 Adult 01/03/2016 ??? Callus [place] Foot 04/25/2016 ??? Congestion Nasal 01/03/2016 ??? [...] Four colon polyps. Repeat in 3 years. [facility]. ??? COLONOSCOPY W/ POLYPECTOMY 05/11/[address]. Dr. Marito davis prep, quality poor. Repeat [...] Prostate cancer Brother OBJECTIVE VITAL SIGNS Vitals: 03/15/18 1112 BP: 121/67 Patient Position: Sitting Pulse: 73 Resp: 16 Height: 172.7 cm Weight: 101.8 kg PHYSICAL EXAMINATION General: Patient is sitting. No distress. Able to talk without interruption. DIAGNOSTICS LABORATORY: 03/12/2018 11:08 Hemoglobin 15.6 HEMATOCRIT 46.6 Erythrocytes 5.39 MCV 86.5 RBC Distrib Width 14.1 Platelet Count 173 White Blood Cell Count 7.2 Sodium, S 135 Potassium, S 5.0 Chloride, S 98 Bicarbonate, S 28 Anion Gap 9 Bld Urea Nitrog(BUN), S 10 Creatinine, S 1.02 eGFR-Non Black 76 eGFR-Black 88 Calcium, Total 9.7 Glucose, S 198 (H) Alanine Aminotransferase (ALT), S 13 Aspartate Aminotransferase (AST), S 19 Creatine Kinase (CK), S 257 Hemoglobin A1c, B 9.2 (H) ASSESSMENT / PLAN #1 Diabetes Mellitus Type 2 With Diabetic Neuropathy Hyperglycemic (HCC) PLAN: It is uncontrolled. Hemoglobin A1c was 9.2% on 03/12/2018. He needs to see Sterile Technician, diabetes education, and rug setter axminster at [facility] [place] [facility] in [place] for diabetes control. We discussed complications of uncontrolled diabetes. Patient was advised to continue current [employer] diet, regular exercise, and current medications. Need to monitor blood sugar regularly. Self-management goals of diabetes mellitus were reviewed. Need to check hemoglobin A1c again in3 months. #2 Benign Prostatic Hyperplasia With Lower Urinary Tract Symptom #3 Overactive Bladder PLAN: He will continue Flomax and Oxybutynin. If he continues to have problem with urination and frequent urinary tract infection, he should consider seeing Urologist for consideration of circumcision. #4 Hypertensive Heart And Chronic Kidney Disease Without Heart Failure And With Stage 2 (Mild) Chronic Kidney Disease #5 Coronary Artery Disease #6 Coronary Arterial Bypass Graft Status Post Personal History PLAN: He is stable from a cardiac standpoint. There is no angina or evidence of congestive heart failure exacerbation. Blood pressure is controlled. Blood pressure goal is less than 140/90 mmHg. Monitor blood pressure regularly at home. Need to continue current medications, sodium restricted diet, and cardiovascular risk factor modification. He is followed by Dr. Peck, Roll Repairer. #7 Hyponatremia PLAN: It is resolved. Patient is asymptomatic. Need to monitor electrolytes and renal function at subsequent visit. #8 Irritable Bowel Syndrome With Constipation PLAN: He can try over the counter peppermint oil. He was advised to have enough fiber in his diet. #9 Discussed Test Results PLAN: I reviewed test results from 03/12/2018. All questions were answered. #10 Followup Visit PLAN: Return to the clinic in 3 months for followup with following tests prior to appointment: BMP, CK, Hemoglobin A1c, and HFP. This document serves as a record of services personally performed by Dr. Franco Molina. It was created on their behalf by Balaji Larios, a trained medical office technology instructor. The creation of this record is based on the scribe's personal observations and the provider's statements to them. This document has been checked and approved by the attending provider. PAPER EDITOR documented in this encounter Plan of Treatment Upcoming Encounters Date Type Specialty Care Team Description 04/23/2022 Office Visit Cardiovascular Disease Blas Peck M.D. [address] [place] [address] [phone] (Wo rk) Scheduled Referrals Name Type Priority Associated Diagnoses Order S [facility] Internal Outpatient Referral Routine Ex pected: Medicine office 06/13/2018 visit (clinic) (Approximate) , Expires: 03/15/2021 documented as of this encounter Results (ABNORMAL) Hemoglobin A1c (06/14/2018 10:59 AM NEWSPAPER EDITOR) athologist Signature Hemoglobin A1c, 8.7 (H) 4.2 - 5.6 06/14/2018 [facility] B % 1:54 PM [facility] Comment: Hemoglobin A1c values greater than or eq ual to 6.5 percent are diagnostic for diabetes mellitus. ?? Diagnosis should be confirmed by repeat testing. ??In diabet ic patients, HbA1c goals should be discussed with healthcar e provider. Specimen Anatomical Collection Method Collection Time Receive d Time (Source) Location / / Volume Laterality Blood (Blood, 06/14/2018 10:59 06/14/2018 1:02 Venous) AM NEWSPAPER EDITOR PM NEWSPAPER EDITOR Franco Molian M.D. LAB BLOOD ADD-ON Performing Organization Address City/State/ZIP Code Phon e Number [facility] [address] [place] [address] LAB CK (Creatine Kinase) (06/14/2018 10:59 AM NEWSPAPER EDITOR) athologist Signature Creatine Kinase 293 39 - 308 06/14/2018 [facility] (CK), S U/L 4:29 PM [facility] Specimen Anatomical Collection Method Collection Time Receive d Time (Source) Location / / Volume Laterality Blood (Blood, 06/14/2018 10:59 06/14/2018 4:03 Venous) AM NEWSPAPER EDITOR PM NEWSPAPER EDITOR Phunt Phyo MMichelleDMichelle LAB BLOOD ADD-ON Performing Organization Address City/State/ZIP Code Phon e Number [facility] [address] [place] [address] [facility] LAB Hepatic Function Panel (06/14/2018 10:59 AM NEWSPAPER EDITOR) Patholo gist Method Time Signature Bilirubin, Total, S 0.9 <=1.2 06/14/2018 [facility] mg/dL 1:58 PM [facility] Bilirubin, Direct, S 0.2 0.0 - 0.3 06/14/2018 [facility] mg/dL 1:58 PM [facility] Aspartate 22 8 - 48 06/14/2018 [facility] Aminotransferase U/L 1:58 PM [facility] Alanine 14 7 - 55 06/14/2018 [facility] Aminotransferase U/L 1:58 PM [facility] ([facility] Alkaline 111 40 - 129 06/14/2018 [facility] Phosphatase, S U/L 1:58 PM [facility] Albumin, S 4.6 3.5 - 5.0 06/14/2018 [facility] g/dL 1:58 PM [facility] Protein, Total, S 6.8 6.3 - 7.9 06/14/2018 [facility] g/dL 1:58 PM [facility] Specimen Anatomical Collection Method Collection Time Receive d Time (Source) Location / / Volume Laterality Blood (Blood, 06/14/2018 10:59 06/14/2018 1:03 Venous) AM NEWSPAPER EDITOR PM NEWSPAPER EDITOR Franco Molina M.D. LAB BLOOD ADD-ON Performing Organization Address City/State/ZIP Code Phon e Number [facility] [address] [place] [phone] LAB (ABNORMAL) Basic Metabolic Panel (06/14/2018 10:59 AM [facility]) P athologist Signature Potassium, S 4.9 3.6 - 5.2 06/14/2018 [facility] mmol/L 1:58 PM [facility] Sodium, S 134 (L) 135 - 145 06/14/2018 [facility] mmol/L 1:58 PM [facility] Chloride, S 98 98 - 107 06/14/2018 [facility] mmol/L 1:58 PM [facility] Bicarbonate, S 27 22 - 29 06/14/2018 [facility] mmol/L 1:58 PM [facility] Anion Gap 9 7 - 15 06/14/2018 [facility] 1:58 PM [facility] BUN (Blood Urea 10 8 - 24 06/14/2018 [facility] Nitrogen), S mg/dL 1:58 PM [facility] Creatinine 1.06 0.74 - 06/14/2018 [facility] 1.35 mg/dL 1:58 PM [facility] [employer] [facility] eGFR-Non 72 >=60 06/14/2018 [facility] Black/ mL/min/BSA 1:58 PM [facility] Comment: ----ADDITIONAL INFORMATION---- Estimated GFR calculated using the 2009 CKD_EPI creatinine equation. eGFR-Black/ 84 >=60 mL/min/BSA 2018 1:58 PM [facility] [place] [facility] Comment: ----ADDITIONAL INFORMATION---- Estimated GFR calculated using the 2009 CKD_EPI creatinine equation. Calcium, Total, S 9.8 8.8 - 10.2 mg/dL 06/14/2018 1 :58 PM [facility] [facility] Glucose, S 131 70 - 140 mg/dL 06/14/2018 1:58 PM [facility] [employer] [facility] Specimen Anatomical Collection Method Collection Time Receive d Time (Source) Location / / Volume Laterality Blood (Blood, 06/14/2018 10:59 06/14/2018 1:03 Venous) AM NEWSPAPER EDITOR PM NEWSPAPER EDITOR Franco Molina M.D. LAB BLOOD ADD-ON Performing Organization Address City/State/ZIP Code Phon e Number [facility] [address] [place] [phone] LAB documented in this encounter Visit Diagnoses Diagnosis 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 Hyperglycemic (HCC) - Primary Benign Prostatic Hyperplasia With Lower Urinary Tract Symptom Overactive Bladder Hypertensive Heart And Chronic Kidney Di sease Without Heart Failure And With Stage 2 (Mild) Chronic Kidney Disease Coronary Artery Disease (Unspecified) Coronary Arterial Bypass Graft Status Po st Personal History Hyponatremia Irritable Bowel Syndrome With Constipati on High Risk Medication documented in this encounter Additional Health Concerns Assessment Noted Time PHQ-9 Depression Total Score: 5 12/23/2016 8:36 AM CDT documented as of this encounter Care Teams Cash On Delivery Clerk Relationship Specialty Start Date End Date Franco Molina M.D. PCP - General 09/25/16 07/27/19 documented as of this encounter
--- OUTSIDE RECORDS SUMMARY | 2022-02-17 12:23 | XMS_ITS | Encounter Summary ---
:1950 Author Organization [facility] Address [address] [place] [address] Care Team Providers Name Role Phone Franco Molina M.D. Primary Care Provider Reason for Visit Reason Comments Follow-up Outpatient (Routine) - Closed Specialty Diagnoses / Procedures Referred By Contact Refer red To Contact Urology Diagnoses Paraphimosis Franco Molina M.D. [facility] [address] [facility] [address] [place] [address] Referral ID Status Reason Start Date Expiration Date Visits Requ ested Visits Authorized [id number] Closed 11/19/2017 11/19/2018 1 1 Encounter Details Date Type Department Care Team Description 12/24/2017 Comprehensive Visit Department of Francisco Javier Mcdermott M.D. [address], [place] [address] Phimosis (Primary Dx); Urology in Sabrina Valadez APRN, C.N.P. [address] [place] [address] Overactive Bladder; [place], [place] Benign Prostatic Hyperplasia With Lower Urinary Tract Symptom [address] [place] [phone] Social History Tobacco Use Types Packs/Day [...] Sign Reading Time Taken Comments Blood Pressure 130/68 12/24/2017 1:50 PM CDT Pulse 80 12/24/2017 1:50 PM CDT Temperature 37.6 ??C (99.7 ??F) 12/24/2017 1:50 PM CDT Respiratory Rate - - Oxygen Saturation - - Inhaled Oxygen Concentration - - Weight - - Height - - Body Mass Index - - documented in this encounter Consult Notes Sabrina Valadez, BRIAN, C.N.P. - 12/24/2017 2:00 PM CDT SUBJECTIVE REQUESTING PROVIDER Franco Molina M.D. REASON FOR CONSULT Paraphimosis HISTORY OF PRESENT ILLNESS Elvis is a pleasant 67-year-old male here today for a consultation requested by his primary providerfor paraphimosis. We have seen this patient in the past for prostatitis, urinary urgency and frequency, benign prostatic hypertrophy. During his previous visits it has been noted that he is uncircumcised and chooses to wear his foreskin retracted. He states that he is able to move his foreskin back and forth without trouble, he prefers to keep it pulled back so that he does not have postvoid dribbling. He is firm in his connection that he will not have a circumcision. He does state that occasionally his urine smells foul, he just complains of some burning with urination. He has had some trouble with prostatitis in the past but does not feel that this is an issue at this time. He states that his stream is fairly weak but he is not particularly bothered by this. Lower Urinary Symptoms Lower Urinary Sx: hematuria (-) able to sense full bladder (-) Obstructive Sx: weak stream (+) straining (+) # of UTI's in past year: None Incontinence: urge incontinence (+) The following portions of the patient's history were reviewed and updated as appropriate: allergies,current medications, family history, medical history, social history, surgical history and problem list. REVIEW OF SYSTEMS Gastrointestinal: Positive for diarrhea. Rectum is sore Genitourinary: Positive for pain with urination. Negative for incontinence, hematuria, urgency and frequent urination. Foreskin able to retract, keeps rolled back to prevent postvoid dribbling, slowing stream, burning with urination. Penis puffs up, not an erection. OBJECTIVE Vitals: 12/24/17 1350 BP: 130/68 Pulse: 80 Temp: 37.6 ??C PHYSICAL EXAM Constitutional: He is oriented to person, place, and time. He appears well- developed and well-nourished. HENT: Head: Normocephalic and atraumatic. Eyes: Pupils are equal, round, and reactive to light. Neck: Normal range of motion. Neck supple. Cardiovascular: Normal rate and regular rhythm. Pulmonary/Chest: Effort normal. Abdominal: Abdomen appears normal and soft. Abdomen does not display R inguinal hernia and L inguinal hernia. Musculoskeletal: Normal range of motion. Lymphadenopathy: No inguinal adenopathy noted on the right or left side. Neurological: He is alert and oriented to person, place, and time. Skin: Skin is warm and dry. Psychiatric: He has a normal mood and affect. His behavior is normal. Judgment and thought content normal. Genitourinary: Testes/scrotum normal; left and right epididymides present; left and right vasa deferentia present; rectum normal and prostate normal. Penis is uncircumcised. No penile plaque. No penile lesions present. Prostate size is 30 gm. Foreskin is worn retracted. Foreskin is able to be moved over head of penis without difficulty. Vitals and nursing note reviewed. ASSESSMENT / PLAN #1 Uncircumcised Male We had an in-depth discussion about his foreskin, he understands that he should not wear his foreskin pulled back but prefers this as it prevents spraying of urine. He cleans his foreskin daily and is able to move the foreskin back and forth over the head of the penis without difficulty. If he has further issues with this, he will contact us for further discussion of options. #2 BPH with Lower Urinary Tract Symptoms. #3 History of Prostatitis He will continue to take Flomax and Oxybutynin daily. His prostatitis has been well controlled. He will contact us if there are any further issues or concerns. All of his questions have been answered, he is in agreement with this plan. Signed by: Sabrina Valadez APRN, C.N.P. 12/24/2017 1:30 PM documented in this encounter Plan of Treatment Upcoming Encounters Date Type Specialty Care Team Description 04/23/2022 Office Visit Cardiovascular Disease Blas Peck M.D. [address] [place] [phone] (Wo rk) documented as of this encounter Visit Diagnoses Diagnosis Phimosis - Primary Overactive Bladder Benign Prostatic Hyperplasia With Lower Urinary Tract Symptom documented in this encounter Additional Health Concerns Assessment Noted Time PHQ-9 Depression Total Score: 5 12/23/2016 8:36 AM CDT documented as of this encounter Care Teams Cordwood Cutter Helper Relationship Specialty Start Date End Date Franco Molina M.D. PCP - General 09/25/16 07/27/19 documented as of this encounter
--- OUTSIDE RECORDS SUMMARY | 2022-02-17 12:23 | XMS_ITS | Encounter Summary ---
:1950 Author Organization [facility] Address [address] [place] [address] Care Team Providers Name Role Phone Franco Molina M.D. Primary Care Provider Encounter Details Date Type Department Care Team Description 03/08/2018 Abstract Department of Family Medicine in Provider , Historical Leana Santacruz n [address] [place] [phone] Social History Tobacco Use Types Packs/Day Years [...] Office Visit Cardiovascular Disease Blas Peck M.D. [address] [place] [address] [phone] (Wo rk) documented as of this encounter Visit Diagnoses Not on filedocumented in this encounter Additional Health Concerns Assessment Noted Time PHQ-9 Depression Total Score: 5 12/23/2016 8:36 AM CDT documented as of this encounter Care Teams Formula Bottler Relationship Specialty Start Date End Date Franco Molina M.D. PCP - General 09/25/16 07/27/19 documented as of this encounter
--- OUTSIDE RECORDS SUMMARY | 2022-02-17 12:23 | XMS_ITS | Encounter Summary ---
:1950 Author Organization [facility] Address [address] [place] [address] Care Team Providers Name Role Phone Franco Molina M.D. Primary Care Provider Encounter Details Date Type Department Care Team Description 03/12/2018 Hospital Encounter Department of Franco Molina, Diabetes Mellitus Type 2 With Diabetic Neuropathy Hyperglycemic (HCC); Laboratory M.DMichelle Hypertensive Heart And Chronic Kidney Di sease Without Heart Failure And With Stage 2 (Mild) Chronic Kidney Disease; Medicine in [address] Coronary Arter y Disease; [place], [place] [address] High Risk Medication; [facility] [place], [place] Hyperlipidemia [address] [address] MARQUEZ MENDOSA [phone] [address] (Fax) [phone] Social History Tobacco Use Types Packs/Day Years [...] by insurance. Dx:E11.9 [place] [facility] [place] glucose 0 05/2308/11/2018 meter, test strips [...] mg tablet total) by mouth daily. lisinopril Take 1 tablet (2.5 90 tablet 3 04/21/20172018 (for_PRINIVIL,ZESTRIL) mg total) by mouth 2.5 mg tablet every morning. metoprolol tartrate Take 1 tablet (25 mg 180 tablet 3 201706/18/2018 (for_LOPRESSOR) 25 mg total) by mouth 2 tablet (two) times a day. nitroglycerin Place under the 0 09/13/20162019 (NITROSTAT) 0.4 mg SL tongue. tablet oxybutynin (DITROPAN-XL) Take 1 tablet (10 mg 90 tablet 3 0 10/16/2017 10/29/2018 10 mg 24 hr tablet total) by mouth at bedtime. raNITIdine (ZANTAC) 150 Take 1 tablet (150 [...] Visit Cardiovascular Disease Blas Peck M.D. [address] [place] [phone] (Wo rk) documented as of this encounter Procedures Procedure Name Priority Date/Time Associated Diagnosis Comme nts CBC WITHOUT Routine 03/12/2018 11:08 Diabetes Mellitus Result s for this DIFFERENTIAL, B AM COMMERCIAL INSTALLER Type 2 With Diabetic proc edure are in Neuropathy the results Hyperglycemic (H CC) section. Hypertensive Heart And Chronic Kidney Disease Without Heart Failure And With Stage 2 (Mild) Chronic Kidney Disease Coronary Artery Disease High Risk Medication ALANINE AMINOTRANSFERASE Routine 03/12/2018 11:08 Diabetes Linda litus Results for this (ALT), S/P AM COMMERCIAL INSTALLER Type 2 With Diabetic procedu re are in Neuropathy the results Hyperglycemic (H CC) section. Coronary Artery Disease Hyperlipidemia High Risk Medication ASPARTATE Routine 03/12/2018 11:08 Diabetes Mellitus Result s for this AMINOTRANSFERASE (AST), AM COMMERCIAL INSTALLER Type 2 With Diabe tic procedure are in S/P Neuropathy the results Hyperglycemic (H CC) section. Coronary Artery Disease Hyperlipidemia High Risk Medication HEMOGLOBIN A1C, B Routine 03/12/2018 11:08 Diabetes Mellitus R esults for this AM COMMERCIAL INSTALLER Type 2 With Diabetic procedu re are in Neuropathy the results Hyperglycemic (HCC) section. CREATINE KINASE (CK), S Routine 03/12/2018 11:08 Diabetes Nona itus Results for this AM COMMERCIAL INSTALLER Type 2 With Diabetic procedu re are in Neuropathy the results Hyperglycemic (H CC) section. Coronary Artery Disease Hyperlipidemia High Risk Medication BASIC METABOLIC PANEL, Routine 03/12/2018 11:08 Diabetes Melli tus Results for this S/P AM COMMERCIAL INSTALLER Type 2 With Diabetic procedu re are in Neuropathy the results Hyperglycemic (H CC) section. Hypertensive Heart And Chronic Kidney Disease Without Heart Failure And With Stage 2 (Mild) Chronic Kidney Disease Coronary Artery Disease High Risk Medication documented in this encounter Results (ABNORMAL) Hemoglobin A1c (03/12/2018 11:08 AM COMMERCIAL INSTALLER) athologist Signature Hemoglobin A1c, 9.2 (H) 4.2 - 5.6 03/12/2018 [facility] B % 2:14 PM [facility] Comment: Hemoglobin A1c values greater than or eq ual to 6.5 percent are diagnostic for diabetes mellitus. ?? Diagnosis should be confirmed by repeat testing. ??In diabet ic patients, HbA1c goals should be discussed with healthcar e provider. Specimen Anatomical Collection Method Collection Time Receive d Time (Source) Location / / Volume Laterality Blood (Blood, 03/12/2018 11:08 03/12/2018 1:25 Venous) AM COMMERCIAL INSTALLER PM COMMERCIAL INSTALLER Franco Molina M.D. LAB BLOOD ADD-ON Performing Organization Address City/[facility]/ZIP Code Phon e Number [facility] [address] [place] [address] LAB CK (Creatine Kinase) (03/12/2018 11:08 AM COMMERCIAL INSTALLER) athologist Signature Creatine Kinase 257 39 - 308 03/12/2018 [facility] (CK), S U/L 3:42 PM [facility] Specimen Anatomical Collection Method Collection Time Receive d Time (Source) Location / / Volume Laterality Blood (Blood, 03/12/2018 11:08 03/12/2018 3:18 Venous) AM COMMERCIAL INSTALLER PM COMMERCIAL INSTALLER Franco Molina M.D. LAB BLOOD ADD-ON Performing Organization Address City/State/ZIP Code Phon e Number [facility] [address] [place] [address] PILY LAB ALT (Alanine Aminotransferase) (03/12/2018 11:08 AM COMMERCIAL INSTALLER) [facility] gist Method Time Signature Alanine 13 7 - 55 03/12/2018 [facility] Aminotransferase U/L 2:09 PM [facility] Yebhi (ALT), S SYSTEMPulseSocksATOKlooffA LAB Specimen Anatomical Collection Method Collection Time Receive d Time (Source) Location / / Volume Laterality Blood (Blood, 03/12/2018 11:08 03/12/2018 1:25 Venous) AM COMMERCIAL INSTALLER PM COMMERCIAL INSTALLER Phandrea Phyo M.D. LAB BLOOD ADD-ON Performing Organization Address City/State/ZIP Code Phon e Number [facility] [place] [address] [place] [address] LAB AST (Aspartate Aminotransferase) (03/12/2018 11:08 AM COMMERCIAL INSTALLER) [facility] Method Time Signature Aspartate 19 8 - 48 03/12/2018 [facility] Aminotransferase U/L 2:09 PM [facility] Yebhi (AST), S SYSTEM- [facility] LAB Specimen Anatomical Collection Method Collection Time Receive d Time (Source) Location / / Volume Laterality Blood (Blood, 03/12/2018 11:08 03/12/2018 1:25 Venous) AM COMMERCIAL INSTALLER PM COMMERCIAL INSTALLER Phunt Phyo M.D. LAB BLOOD ADD-ON Performing Organization Address City/[facility]/ZIP Code Phon e Number [facility] [place] [address] [place] [address] LAB (ABNORMAL) Basic Metabolic Panel (03/12/2018 11:08 AM COMMERCIAL INSTALLER) P athologist Signature Potassium, S 5.0 3.6 - 5.2 03/12/2018 [facility] mmol/L 2:09 PM [facility] Sodium, S 135 135 - 145 03/12/2018 [facility] mmol/L 2:09 PM [facility] Chloride, S 98 98 - 107 03/12/2018 [facility] mmol/L 2:09 PM [facility] Bicarbonate, S 28 22 - 29 03/12/2018 [facility] mmol/L 2:09 PM [facility] [place] [facility] Anion Gap 9 7 - 15 03/12/2018 [facility] 2:09 PM [facility] BUN (Blood Urea 10 8 - 24 03/12/2018 [facility] Nitrogen), S mg/dL 2:09 PM [facility] Creatinine 1.02 0.74 - 03/12/2018 [facility] 1.35 mg/dL 2:09 PM [facility] eGFR-Non 76 >=60 03/12/2018 [facility] Black/ mL/min/BSA 2:09 PM [facility] [employer]de[employer] [place] [facility] Comment: ----ADDITIONAL INFORMATION---- Estimated GFR calculated using the 2009 CKD_EPI creatinine equation. eGFR-Black/ 88 >=60 mL/min/BSA 2017 2:09 PM [facility] [place] [facility] Comment: ----ADDITIONAL INFORMATION---- Estimated GFR calculated using the 2009 CKD_EPI creatinine equation. Calcium, Total, S 9.7 8.8 - 10.2 mg/dL 03/12/2018 2:09 PM [facility] Glucose, S 198 (H) 70 - 140 mg/dL 03/12/2018 2:[address] [facility] Specimen Anatomical Collection Method Collection Time Receive d Time (Source) Location / / Volume Laterality Blood (Blood, 03/12/2018 11:08 03/12/2018 1:25 Venous) AM [facility] Franco Molina M.D. LAB BLOOD ADD-ON Performing Organization Address City/State/ZIP Code Phon e Number [facility] [address] [place] [phone] LAB CBC without Differential (03/12/2018 11:08 AM [facility]) P athologist Signature Hemoglobin 15.6 13.2 - 03/12/2018 [facility] 16.6 g/dL 11:12 AM [facility] [employer] Hematocrit 46.6 38.3 - 03/12/2018 [facility] 48.6 % 11:[address] [facility] Erythrocytes 5.39 4.35 - 03/12/2018 [facility] 5.65 11:12 AM COMMERCIAL INSTALLER HEALTH x10(12)/L [facility] [employer] LAB MCV 86.5 78.2 - 03/12/2018 [facility] 97.9 fL 11:12 AM [facility] RBC Distrib Width 14.1 11.8 - 03/12/2018 [facility] 14.5 % 11:12 AM [facility] Platelet Count 173 135 - 317 03/12/2018 [facility] x10(9)/L 11:12 AM [facility]ENTERNexus EnergyHomes [facility] LAB Leukocytes 7.2 3.4 - 9.6 03/12/2018 [facility] x10(9)/L 11:12 AM [facility] Specimen Anatomical Collection Method Collection Time Receive d Time (Source) Location / / Volume Laterality Blood (Blood, 03/12/2018 11:08 03/12/2018 Venous) AM COMMERCIAL INSTALLER 11:08 AM COMMERCIAL INSTALLER Franco Molina M.D. 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 PCP - General 09/25/16 07/27/19 documented as of this encounter
--- OUTSIDE RECORDS SUMMARY | 2022-02-17 12:23 | XMS_ITS | Encounter Summary ---
:1950 Author Organization [facility] Address [address] [place] [address] Care Team Providers Name Role Phone Franco Molina M.D. Primary Care Provider Encounter Details Date Type Department Care Team Description 04/22/2018 Episode Changes Department of [facility] Michelle Taylor, Medicine, [facility], in [place], [place] [address] [place] [phone] Social History Tobacco Use [...] Visit Cardiovascular Disease Blas Peck M.D. [address] [place], [place] [phone] (Wo rk) documented as of this encounter Visit Diagnoses Not on filedocumented in this encounter Additional Health Concerns Assessment Noted Time PHQ-9 Depression Total Score: 7 04/01/2018 1:32 PM PAVING CONTRACTOR documented as of this encounter Care Teams Account Information Clerk Relationship Specialty Start Date End Date Franco Molina M.D. PCP - General 09/25/16 07/27/19 documented as of this encounter
--- OUTSIDE RECORDS SUMMARY | 2022-02-17 12:23 | XMS_ITS | Encounter Summary ---
:1950 Author Organization [facility] Address [address] [place] [address] Care Team Providers Name Role Phone Fracno Molina M.D. Primary Care Provider Reason for Visit Reason Comments Other penile swelling and slight p ain . Also urine cloudy and stronger odor x 1 month Encounter Details Date Type Department Care Team Description 02/04/2018 Office Visit Urgent Care in [place], Dysuria ( Primary Dx) [place] Den[place] [address] [place] [phone] Social History Tobacco Use Types Packs/Day [...] Sign Reading Time Taken Comments Blood Pressure 122/75 02/04/2018 1:03 PM CDT Pulse 73 02/04/2018 1:03 PM CDT Temperature 36.9 ??C (98.4 ??F) 02/04/2018 1:03 PM CDT Respiratory Rate 16 02/04/2018 1:03 PM CDT Oxygen Saturation - - Inhaled Oxygen Concentration - - Weight 103 kg (226 lb 10.1 oz) 02/04/2018 1:03 PM CDT Height - - Body Mass Index 33.95 12/16/2017 10:28 AM CDT documented in this encounter Progress Notes [place] M.D. - 02/04/2018 1:00 PM CDT CHIEF COMPLAINT/REASON FOR VISIT Elvis aDwkins is a 67 y.o. male that presents with chronic complaint of intermittent episodesof dysuria, foul-smelling urine, discomfort at times with swelling of the penis. He has seen Urology3 times within the last year and a half, providers including Dr. Catherine, Sabrina Valadez and Dr. Dodge. He has diagnoses on chart review including prostatitis. Current Outpatient Prescriptions: ??? aspirin 81 mg [...] 100 strip, Rfl: 11 ??? [place] [facility] [place] Dispense [place], test strips and lancets [...] Disp: 180 tablet, Rfl: 3 ??? tamsulosin (for_FLOMAX) 0.4 mg 24 hr capsule, Take 1 capsule (0.4 mg total) by mouth daily., Disp: 100 capsule, Rfl: 3 Allergies Allergen Reactions ??? Sertraline Other (see comments) ??? Sulfamethoxazole-Trimethoprim Swelling Vitals: 02/04/18 1303 BP: 122/75 Pulse: 73 Resp: 16 Temp: 36.9 ??C PHYSICAL EXAMINATION GENERAL APPEARANCE: No acute distress. Very pleasant talkative gentleman. HEENT: Mucous membranes are well hydrated. ABDOMEN: Normoactive bowel sounds with no acute tenderness anywhere over the abdomen or pelvis. No CVA area tenderness is noted. DIAGNOSTICS: UA does not show any evidence of infection but does show greater than a 1000 glucose and some trace ketones. IMPRESSION/PLAN Ongoing urologic symptoms as noted previously. We did review the importance of keeping his diabetes under more optimal control. Conservative measures are reviewed. Suggest he follow up with Urology andpossibly also with primary care to review ongoing plans. documented in this encounter Plan of Treatment Upcoming Encounters Date Type Specialty Care Team Description 04/23/2022 Office Visit Cardiovascular Disease Blas Peck M.D. [address] [place] [phone] (Wo rk) documented as of this encounter Procedures Procedure Name Priority Date/Time Associated Comments Diagnosis URINALYSIS WITH STAT 02/04/2018 1:31 PM Dysuria Result s for this MICROSCOPIC IF CDT procedure are in INDICATED, U the results section. documented in this encounter Results (ABNORMAL) Urinalysis with Microscopic if Indicated (02/04/2018 1:31 PM CDT) P athologist Signature Source Midstream 02/04/2018 [facility] 1:47 PM CDT [facility] [place] [facility] Clarity Clear Clear 02/04/2018 [facility] 1:47 PM CDT [facility] [place] [facility] Color Yellow 02/04/2018 [facility] 1:47 PM CDT [facility] [place] [facility] Comment: ----REFERENCE VALUE---- Colorless Yellow Linda Blood Negative Negative 02/04/2018 1:47 PM CDT [facility] [place] [facility] Nitrite Negative Negative 02/04/2018 1:47 PM CDT [facility] [place] [facility] Leukocyte Esterase Negative Negative 02/04/2018 1:[address] [facility] [place] [facility] Protein Negative mg/dL 02/04/2018 1:47 PM CDT [facility] [place] [facility] Comment: ----REFERENCE VALUE---- Negative Trace Glucose >=1000 (A) Negative mg/dL 02/04/2018 1:47 PM [facility] [place] [facility] Ketone Trace (A) Negative mg/dL 02/04/2018 1:47 PM [facility] [place] [facility] Bilirubin Negative Negative 02/04/2018 1:47 PM [facility] [place] [facility] pH 5.0 5.0 - 8.0 02/04/2018 1:47 PM [facility] [place] Specific [place] 1.021 1.001 - 1.035 02/04/2018 1:47 PM [facility] Urobilinogen 1.0 0.2 - 1.0 02/04/2018 1:47 PM [facility] [place] [facility] Specimen Anatomical Collection Method Collection Time Receive d Time (Source) Location / / Volume Laterality Urine (Urine, 02/04/2018 1:31 PM 02/05/20 18 1:35 Clean Catch) CDT PM CDT [place] M.D. LAB URINE ORDERABLES Performing Organization Address City/State/ZIP Code Phon e Number [facility] [employer] GekkoAT[employer]LEONIEA [address] [place] [address] LAB documented in this encounter Visit Diagnoses Diagnosis Dysuria - Primary documented in this encounter Additional Health Concerns Assessment Noted Time PHQ-9 Depression Total Score: 5 12/23/2016 8:36 AM CDT documented as of this encounter Care Teams Lumber Scaler Relationship Specialty Start Date End Date Franco Molina M.D. PCP - General 09/25/16 07/27/19 documented as of this encounter
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
--- OUTSIDE RECORDS SUMMARY | 2022-02-17 12:23 | XMS_ITS | Encounter Summary ---
:1950 Author Organization [facility] Address [address] [place] [address] Care Team Providers Name Role Phone Franco Molina M.D. Primary Care Provider Reason for Referral Outpatient (Routine) - Closed Specialty Diagnoses / Procedures Referred By Contact Refer red To Contact Cardiovascular Disease Blas Peck [facility] [address] [place] [address] Referral ID Status Reason Start Date Expiration Date Visits Requ ested Visits Authorized [id number] Closed 12/16/2017 12/16/2018 1 1 Reason for Visit Reason Comments Follow-up 07/29/17 Outpatient (Routine) - Closed Specialty Diagnoses / Referred By Contact Referred To Contact Procedures Cardiovascular Diseases / Diagnoses Coronary Artery Disease (Unspecified) Coronary Arterial Bypass Graft Status Post Personal History Franco [facility]ina M.D. [facility] Cardiovascular Disease [address] [facility], [facility] [place] [address] [place] [address] Referral ID Status Reason Start Date Expiration Date Visits Requ ested Visits Authorized [id number] Closed 12/10/2017 12/10/2018 1 1 Encounter Details Date Type Department Care Team Description 12/16/2017 Comprehensive Visit Department of Liv, Coronar y Artery Disease; Cardiovascular Blas Manley M.D. Coronary Arterial Bypass Graft Status Po st Personal History Diseases in [address] [facility] [address] [place], [place] [phone] (Work) [phone] Social History Tobacco Use Types Packs/Day Years [...] Sign Reading Time Taken Comments Blood Pressure 114/63 12/16/2017 10:28 AM CDT Pulse 66 12/16/2017 10:28 AM CDT Temperature - - Respiratory Rate - - Oxygen Saturation 98% 12/16/2017 10:28 AM CDT Inhaled Oxygen Concentration - - Weight 102 kg (225 lb 15.5 oz) 12/16/2017 10:28 AM CDT Height 174 cm (5' 8.5) 12/16/2017 10:28 AM CDT Body Mass Index 33.86 12/16/2017 10:28 AM CDT documented in this encounter Progress Notes Blas Peck M.D. - 12/16/2017 10:45 AM CDT ASSESSMENT / PLAN 1. Coronary artery disease. - Status post CABG 4-vessel in [place] on 2014. - Cardiopulmonary NST stress test 07/2017. 2. Hypertension. 3. Hyperlipidemia. 4. Mild right ventricular enlargement with mildly reduced systolic function by ECHO. 5. Obesity, BMI 34. 6. Obstructive sleep apnea. 7. History of hyponatremia, as per PCPs note 8. History of panic attacks, Depression/anxiety 9. Irritable bowel syndrome 10. Osteoarthritis. 11. Diabetes mellitus type 2 with neuropathy 12. Dyspnea on exertion. ?? Coronary artery disease. Atypical chest discomfort and stable dyspnea on exertion reported. No evidence of volume overload on exam. Limited function capacity on stress test but no significant ischemia observed on electrocardiogram or perfusion images. The patient believes part of his limitation was due to ???panic attack?? with all people that were surrounding him at the time of the test. He feels he could have exercised for longer. Continue antiplatelet therapy and risk modification. I asked the patient call me in case of increase in chest discomfort, in which case, we will have to consider invasive workup. Hypertension is well controlled. Lipids were quite adequate with LDL 54 on August 2017. I have considered further up titration of statins to high-intensity but in view of excellent lipid levelsand absence of significant ischemia on the nuclear stress test, we will postpone making changes at this time. There is room for improvement in his glycemic control as his A1c was 8.12 November 2017. He continues to follow regularly with primary provider for that. Regular exercise recommended. ?? Dyspnea exertion. Multifactorial. [place] heart Association class 2. No evidence of volume overloadon exam or by labs. Prior echo was not suggestive of constriction and normal filling pressure described. Cardiopulmonary stress test suggests some cardiac limitations to exercise as well. Still, deconditioning and obesity are likely to be playing an important role. I encouraged the patient to exerciseregularly, he is considering by purchasing a stationary bike. Right ventricular abnormalities found on echo. Not associated with pulmonary hypertension. This is more likely secondary to obesity and untreated obstructive sleep apnea. I previously recommended CPAP therapy if indicated. The patient had difficulty tolerating the mask in the past but is willing to try it again. I will leave this to the discretion of his primary care provider. DARNELL, cardiovascular. Abnormal stress test without evidence of significant ischemia. Limited functional capacity exercise and 63% predicted. Still, in case symptoms continue to be stable clinically, heshould be at an acceptable risk to undergo low risk hernia repair. He will provide us with further details once available. ?? Follow up with Cardiology in 6 months but may postpone for a year in case symptoms are improved. I discussed these issues the patient, he expressed understanding and agreement with the plan. CARDIOLOGY SUBSEQUENT VISIT Location: [facility] CHIEF COMPLAINT Office follow-up. HISTORY OF PRESENT ILLNESS Mr. Elvis Dawkins is a very pleasant 67 y.o. male who presents to [facility] for follow-up. His primary care provider is Franco Molina M.D.. Seen by me last July 2017. Presenting unaccompanied by family. Patient presents today for follow-up. He states he has had occasional chest discomfort which is ill-defined. There are different types of discomfort which he has described as sharp and right-sided, burning epigastric and a sensation of ???moving a little bit in there?? and ???bony pain?? . This tend to be nonexertional. He did use nitroglycerin approximately a month ago, unclear as to what symptoms he had at the time. He has mostly sedentary at this time. He reports stable dyspnea on exertion. He states he could have gone longer on the exercise bicycle stress test but had some ???panic attack?? with the new environment and the number of people were monitoring him in the room. He wants to exercise or any is consider purchasing an exercise bike. He still does not have a CPAP. He states he could not have used CPAP in the past due to panic attacks but is willing to try it again. Recent labs and stress test reviewed. Latest A1c was 8.12 November 2017. The patient reports lower abdominal discomfort and believes he will require surgery for that. He believes is secondary to hernia. He will be seeing a surgeon in the near future. Compliant with medication without side effects. Current Outpatient Medications Medication Sig ??? aspirin 81 mg chewable tablet Chew 1 tablet daily. ??? atorvastatin (LIPITOR) 20 mg tablet Take 1 tablet (20 mg total) by mouth at bedtime. ??? blood sugar diagnostic (glucose blood) strips 1 test daily. Use to test blood sugar daily. Whatever is covered by insurance. Dx:E11.9 ??? blood-glucose meter [facility] Dispense glucose meter, [...] mg total) by mouth every morning. ??? fluticasone (for_FLONASE) 50 mcg/actuation nasal spray Administer 2 sprays into each nostril daily. ??? glimepiride (AMARYL) 4 mg tablet Take 2 tablets (8 mg total) by mouth daily with breakfast. ??? ipratropium (ATROVENT) 0.03 % nasal spray Administer 2 sprays into each nostril 3 (three) times a day as needed for rhinitis. ??? linagliptin (TRADJENTA) 5 mg tablet Take 1 tablet (5 mg total) by mouth daily. ??? lisinopril (for_PRINIVIL,ZESTRIL) 2.5 mg tablet Take 1 tablet (2.5 mg total) by mouth every morning. ??? metoprolol tartrate (for_LOPRESSOR) 25 mg tablet Take 1 tablet (25 mg total) by mouth 2 (two) times a day. ??? nitroglycerin (NITROSTAT) 0.[address] 1 tablet (0.4 mg total) under the tongue every 5 (five) minutes as needed for chest pain. Up to 3 doses & call 911 ??? oxybutynin (DITROPAN-XL) 10 mg 24 [...] 2 (two) times a day. ??? tamsulosin (for_FLOMAX) 0.4 mg 24 hr capsule Take 1 capsule (0.4 mg total) by mouth daily. Allergies Allergen Reactions ??? Sertraline Other (see comments) ??? Sulfamethoxazole-Trimethoprim Swelling REVIEW OF SYSTEMS Constitutional: Positive for fatigue. Respiratory: Positive for dyspnea. Cardiovascular: Positive for chest pain, pressure or tightness. Gastrointestinal: Positive for abdominal (belly) pain or cramping and heartburn. Musculoskeletal: Positive for muscle pain/stiffness. All other systems reviewed and are negative. The following portions of the patient's history were reviewed and updated as appropriate: allergies,current medications, family history, medical history, social history and problem list. OBJECTIVE Vitals: 12/16/17 1028 BP: 114/63 BP Location: Left arm Patient Position: Sitting Cuff Size: Regular Pulse: 66 SpO2: 98% Weight: 102.5 kg Height: 174 cm BP Readings from Last 3 Encounters: 12/16/17 114/63 12/10/17 117/67 10/16/17 121/66 Body mass index is 33.86 kg/m??. PHYSICAL EXAMINATION GENERAL: Patient is awake, alert, oriented x3. No acute distress. EYES: No pallor. No icterus. No xanthelasma. NECK: No jugular venous distention. No carotid bruits. CHEST/LUNGS: No chest deformity. Normal respiratory effort. Good entry bilaterally. No adventitious sounds. CARDIOVASCULAR: Normal rate and regular rhythm. Very distant heart sounds, normal S1 and S2. No murmurs. Negative hepatojugular reflux. ABDOMEN: Soft, nontender, nondistended. LOWER EXTREMITIES: Lower extremity warm without edema. UPPER EXTREMITIES: 2+ Radial pulses bilaterally. Normal capillary refill. No cyanosis. NEUROLOGIC: Exam deferred. DIAGNOSTICS I have reviewed the patient's current laboratory, imaging, and other diagnostic studies. Pertinent laboratory studies have been reviewed and are notable for: Office Visit on 12/10/2017 Component Date Value ??? Potassium, S 12/10/2017 4.6 ??? Sodium, S 12/10/2017 133* ??? Chloride, S 12/10/2017 96* ??? Bicarbonate, S 12/10/2017 27 ??? Anion Gap 12/10/2017 10 ??? Bld Urea Nitrog(BUN), S 12/10/2017 13 ??? Creatinine, S 12/10/2017 1.06 ??? eGFR-Non Black 12/10/2017 73 ??? eGFR-Black 12/10/2017 84 ??? Calcium, Total 12/10/2017 9.5 ??? Glucose, S 12/10/2017 227* ??? Aspartate Aminotransfera* 12/10/2017 21 ??? Alanine Aminotransferase* 12/10/2017 14 ??? Creatine Kinase (CK), S 12/10/2017 250 ??? Hemoglobin A1c, B 12/10/2017 8.2* Office Visit on 10/16/2017 Component Date Value ??? Source 10/16/2017 Midstream ??? Clarity 10/16/2017 Clear ??? Color 10/16/2017 Yellow ??? Blood 10/16/2017 Negative ??? Nitrite 10/16/2017 Negative ??? Leukocyte Esterase 10/16/2017 Negative ??? Protein 10/16/2017 Negative ??? Glucose 10/16/2017 500* ??? Ketones, QI(U) 10/16/2017 Trace* ??? Bilirubin 10/16/2017 Negative ??? pH 10/16/2017 5.5 ??? Specific [place] 10/16/2017 1.015 ??? Urobilinogen 10/16/2017 0.2 ??? White Blood Cells 10/16/2017 Occ-3 ??? Red Blood Cells 10/16/2017 None Seen ??? Bacteria 10/16/2017 Present* ??? Bacterial Culture, Aerob* 10/16/2017 No growth after 1 day of incubation. Hospital Outpatient Visit on 08/21/2017 Component Date Value ? ? Microalbumin 08/21/2017 <7.0 ??? Creatinine 08/21/2017 82 ? ? Albumin/Creatinine Ratio 08/21/2017 <9 Hospital Outpatient Visit on 08/21/2017 Component Date Value ??? Hemoglobin 08/21/2017 14.3 ??? Hematocrit 08/21/2017 41.8 ??? Erythrocytes 08/21/2017 4.83 ??? MCV 08/21/2017 86.5 ??? RBC Distrib Width 08/21/2017 14.0 ??? Platelet Count 08/21/2017 238 ??? Leukocytes 08/21/2017 6.2 ??? Potassium, S 08/21/2017 5.0 ??? Sodium, S 08/21/2017 136 ??? Chloride, S 08/21/2017 95* ??? Bicarbonate, S 08/21/2017 27 ??? Anion Gap 08/21/2017 14 ??? Bld Urea Nitrog(BUN), S 08/21/2017 14 ??? Creatinine, S 08/21/2017 0.99 ??? eGFR-Non Black 08/21/2017 79 ? ? eGFR-Black 08/21/2017 >90 ??? Calcium, Total 08/21/2017 9.9 ??? Glucose, S 08/21/2017 143* ??? Bilirubin, Total, S 08/21/2017 0.6 ??? Bilirubin, Direct, S 08/21/2017 0.2 ??? Aspartate Aminotransfera* 08/21/2017 19 ??? Alanine Aminotransferase* 08/21/2017 14 ??? Alkaline Phosphatase, S 08/21/2017 111 ??? Albumin, S 08/21/2017 4.4 ??? Protein, Total, S 08/21/2017 7.1 ??? Creatine Kinase (CK), S 08/21/2017 241 ??? Hemoglobin A1c, B 08/21/2017 8.0* ??? Cholesterol, Total, S 08/21/2017 109 ??? Triglycerides, S 08/21/2017 74 ??? Cholesterol, HDL, S 08/21/2017 40 ??? Calculated LDL 08/21/2017 54 ??? Non HDL Cholesterol 08/21/2017 69 ??? TSH, Sensitive, S 08/21/2017 2.0 Office Visit on 07/29/2017 Component Date Value ??? Source 07/29/2017 Midstream ??? Clarity 07/29/2017 Clear ??? Color 07/29/2017 Yellow ??? Blood 07/29/2017 Negative ??? Nitrite 07/29/2017 Negative ??? Leukocyte Esterase 07/29/2017 Negative ??? Protein 07/29/2017 Negative ? ? Glucose 07/29/2017 >=1000* ??? Ketones, QI(U) 07/29/2017 Negative ??? Bilirubin 07/29/2017 Negative ??? pH 07/29/2017 5.5 ??? Specific [place] 07/29/2017 1.010 ??? Urobilinogen 07/29/2017 0.2 Office Visit on 07/09/2017 Component Date Value ??? Influenza A, Rapid 07/09/2017 Negative ??? Influenza B, Rapid 07/09/2017 Negative Pertinent cardiac (or related) studies have been reviewed and are notable for: Nuclear cardiopulmonary stress test July 2017: Stress electrocardiogram negative for ischemia. Reasons for low peak view to likely include excess weight, limited heart reserve, impaired cardiac output. Limited peak VO2 with cardiac impairment to exercise. 1. Medium primarily fixed defect consistent with infarction involving the inferior and inferolateralsegments. The inferolateral defect has mild associated ischemia. The area of infarction is quantitated at 14% of the myocardium. 2. LV size is normal. LVEF is quantitated at 68% at rest. Septal wall motion is paradoxical, consistent with post-operative status. 3. Limited exercise workload of 5.2 minutes (see separate O2 consumption report for details) 4. There are no previous nuclear stress studies for comparison. Echocardiogram May 2017: 1. Normal left ventricular [...] Side by side comparison of images performed. IMPRESSION/REPORT/PLAN See above. Note: Dictated portions of this note were done using [employer] front-end speech recognition software. documented in this encounter Plan of Treatment Upcoming Encounters Date Type Specialty Care Team Description 04/23/2022 Office Visit Cardiovascular Disease Blas Peck M.D. [address] [place] [phone] (Wo rk) Scheduled Referrals Name Type Priority Associated Order Schedule Diagnoses Cardiovascular Disease Outpatient Referral Routine Expected: office visit (clinic) 2018 (Approximate), Expires: 12/16/2020 documented as of this encounter Visit Diagnoses Diagnosis Coronary Artery Disease (Unspecified) Coronary Arterial Bypass Graft Status Po st Personal History documented in this encounter Additional Health Concerns Assessment Noted Time PHQ-9 Depression Total Score: 5 12/23/2016 8:36 AM CDT documented as of this encounter Care Teams Asset Card Clerk Relationship Specialty Start Date End Date Franco Molina M.D. PCP - General 09/25/16 07/27/19 documented as of this encounter
--- OUTSIDE RECORDS SUMMARY | 2022-02-17 12:23 | XMS_ITS | Encounter Summary ---
:1950 Author Organization [facility] Address [address] [place] [address] Care Team Providers Name Role Phone Franco Molina M.D. Primary Care Provider Reason for Visit Reason Comments Follow-up recheck hernia Outpatient (Routine) - Closed Specialty Diagnoses / Procedures Referred By Contact Refer red To Contact General Surgery Sherwin Devi M .D. [address] [phone] Referral ID Status Reason Start Date Expiration Date Visits Requ ested Visits Authorized [id number] Closed 12/24/2017 12/24/2018 1 1 Encounter Details Date Type Department Care Team Description 01/21/2018 Office Visit Department of General Sherwin Devi, Pain Groin (Primary Surgery in [facility]) [address] [phone] Social History Tobacco Use Types Packs/Day Years [...] Sign Reading Time Taken Comments Blood Pressure 140/76 01/21/2018 10:37 AM CDT Pulse 71 01/21/2018 10:37 AM CDT Temperature 36.8 ??C (98.2 ??F) 01/21/2018 10:37 AM CDT Respiratory Rate - - Oxygen Saturation - - Inhaled Oxygen Concentration - - Weight - - Height - - Body Mass Index - - documented in this encounter Progress Notes Sherwin Deiv M.D. - 01/21/2018 11:00 AM CDT SUBJECTIVE Elvis Dawkins is here for follow up seen her on 12/24/2017 because of chronic left groin pain. He this pain developed after he underwent bilateral her inguinal hernia repair apparently without mesh 15 years ago. It tends to wax and wane some days not as bad as others. He has had a considerable weight gain over the last several years with a body mass index be around 35. He carries most of this weight in his abdomen. The patient is noted no bulging in the left groin. OBJECTIVE Vitals: 01/21/18 1037 BP: 140/76 Pulse: 71 Temp: 36.8 ??C Examination I cannot detect any evidence of a hernia either on the left or the right side. ASSESSMENT / PLAN #1 Pain Groin I would recommend observation at this point. Chronic groin pain after an inguinal hernia repair donein open fashion is reported in the literature about 5%. I think because the pain isn't too severe and it does not appear to be nerve related that ice think it should be observed at this point. I told the patient if he notices a bulge that he should return and see 1 of the surgeons in [place] since I will no longer be in the office. I spent about 15 min with this patient today. documented in this encounter Plan of Treatment Upcoming Encounters Date Type Specialty Care Team Description 04/23/2022 Office Visit Cardiovascular Disease Blas Peck M.D. [address] [place] [phone] (Wo rk) documented as of this encounter Visit Diagnoses Diagnosis Pain Groin - Primary documented in this encounter Additional Health Concerns Assessment Noted Time PHQ-9 Depression Total Score: 5 12/23/2016 8:36 AM CDT documented as of this encounter Care Teams Boss Dyer Relationship Specialty Start Date End Date Franco Molina M.D. PCP - General 09/25/16 07/27/19 documented as of this encounter
--- OUTSIDE RECORDS SUMMARY | 2022-02-17 12:23 | XMS_ITS | Encounter Summary ---
:1950 Author Organization [facility] Address [address] [place] [address] Care Team Providers Name Role Phone Franco Molina M.D. Primary Care Provider Reason for Visit Reason Comments Care Coordination - Systematic Case Review Encounter Details Date Type Department Care Team Description 04/23/2018 Patient Outreach Department of Family Michelle Taylor are Coordination - Medicine, [facility] [address] [phone] Social History Tobacco Use Types Packs/Day Years [...] encounter Progress Notes Michelle Taylor R.N. - 04/23/2018 3:03 PM CST Admission Date: 04/22/2018 Admission Goal: A1C less than 7.5% Two Chronic Conditions: Patient Active Problem List Diagnosis ??? 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 Coronary Artery Disease ??? Anxiety ??? Apnea Sleep Obstructive ??? Benign Prostatic Hyperplasia Hypertrophy With Obstruction ??? Body Mass Index 34.0 To 34.9 Adult ??? Callus [place] Foot ??? Constipation ??? Congestion Nasal ??? [...] Maxillary ??? Paraphimosis ??? Hernia Inguinal Left Next Contact: 04/29/2018 ED/Hospitalizations Since Admission: 0 The patient was [...] discussed as part of care coordination activities. LE CONSULTANT documented in this encounter Plan of Treatment Upcoming Encounters Date Type Specialty Care Team Description 04/23/2022 Office Visit Cardiovascular Disease Blas Peck M.D. [address] [place] [phone] (Wo rk) documented as of this encounter Visit Diagnoses Not on filedocumented in this encounter Additional Health Concerns Assessment Noted Time PHQ-9 Depression Total Score: 7 04/01/2018 1:32 PM ORACLE CONSULTANT documented as of this encounter Care Teams Crusher Relationship Specialty Start Date End Date Franco Molina M.D. PCP - General 09/25/16 07/27/19 documented as of this encounter
--- OUTSIDE RECORDS SUMMARY | 2022-02-17 12:23 | XMS_ITS | Encounter Summary ---
:1950 Author Organization [facility] Address [address] [place] [address] Care Team Providers Name Role Phone Franco Molina M.D. Primary Care Provider Reason for Visit Reason Comments Med Refill Encounter Details Date Type Department Care Team Description 11/13/2017 Refill Department of [facility] Molina M.D. Med Refill Internal Medicine in [address] [place] [address] [address] [place] [address] [address] [facility] [place] [phone] Social History Tobacco Use [...] Notes Telephone Encounter - Xena Xiao - 11/13/2017 12:19 PM CDT Not on active med list. documented in this encounter Plan of Treatment Upcoming Encounters Date Type Specialty Care Team Description 04/23/2022 Office Visit Cardiovascular Disease Blas Peck M.D. [address] [facility] [place] [phone] (Wo rk) documented as of this encounter Visit Diagnoses Not on filedocumented in this encounter Additional Health Concerns Assessment Noted Time PHQ-9 Depression Total Score: 5 12/23/2016 8:36 AM CDT documented as of this encounter Care Teams Game Trapper Relationship Specialty Start Date End Date Franco Molina M.D. PCP - General 09/25/16 07/27/19 documented as of this encounter
--- OUTSIDE RECORDS SUMMARY | 2022-02-17 12:24 | XMS_ITS | Encounter Summary ---
:1950 Author Organization [facility] Address [address] [place] [address] Care Team Providers Name Role Phone Franco Molina M.D. Primary Care Provider Reason for Visit Reason Comments Other discomfort with urination or bowl movement in the lower abdomen for a couple of weeks Appointment Request (Routine) - Closed Specialty Diagnoses / Procedures Referred By Contact Refer red To Contact Community Internal Medicine Referral ID Status Reason Start Date Expiration Date Visits Requ ested Visits Authorized [id number] Closed 07/29/2017 01/25/2018 1 1 Encounter Details Date Type Department Care Team Description 07/29/2017 Office Visit Department of Family Figueroa Wilson (Primary Dx); Medicine, Mary Ellen PadillaBMichelleSMichelle, Overact rebeka Bladder; Clinic, in [facility] Diabetes Mellitus Type 2 (HCC); [address] High Risk Medication [address] [place] [phone] Social History Tobacco Use Types Packs/Day Years [...] Sign Reading Time Taken Comments Blood Pressure 108/68 07/29/2017 2:06 PM CDT Pulse 68 07/29/2017 2:06 PM CDT Temperature 36.8 ??C (98.2 ??F) 07/29/2017 2:06 PM CDT Respiratory Rate 16 07/29/2017 2:06 PM CDT Oxygen Saturation - - Inhaled Oxygen Concentration - - Weight 105 kg (232 lb 0.6 oz) 07/29/2017 2:06 PM CDT Height 174 cm (5' 8.5) 07/29/2017 2:06 PM CDT Body Mass Index 34.76 07/29/2017 2:06 PM CDT documented in this encounter H&P Notes Figueroa Wilson M.D., M.B.B.S. - 07/29/2017 2:15 PM CDT SUBJECTIVE CHIEF COMPLAINT / REASON FOR VISIT Elvis Dawkins is a 67 y.o. male who presents for evaluation of Other (discomfort with urination or bowl movement in the lower abdomen for a couple of weeks). HISTORY OF PRESENT ILLNESS Patient is here with multiple vague complaints including spontaneous penile swellings that last minutes and regress spontaneously as well. He admits these may be mind driven. He is not sexually active by trial his. He is a . He also reports bladder discomfort. Patient has been diagnosed with overactive bladder as well as BPH. He is on oxybutynin and Flomax which he has not been very consistent with. Patient also has a history of diabetes for which he is on glimepiride and metformin. His last A1c in May was 7.8. Patient admits not been very consistent with his hypoglycemic agents. Patient also has a history of anxiety for which he is on both Buspar and Prozac. He claims compliance with these medications although he is vague about this. Overall, it is difficult to ascertain exactly what the patient is taking and what he is not. He has an appointment scheduled next month for follow-up of diabetes. Patient reports chronic constipation for which he takes Colace and MiraLax but again he is not consistent with these medications. He reports that his symptoms improved whenever he has a good bowel movement. He denies any abdominal discomfort or blood in his stool. He denies any chest pain or shortnessof breath. He denies any fever or chills. Current Outpatient Prescriptions: ??? aspirin 81 mg chewable tablet, Chew 1 tablet daily., Disp: , Rfl: ??? atorvastatin (for_LIPITOR) 20 mg tablet, Take 1 tablet by mouth at bedtime., Disp: , Rfl: ??? blood-glucose meter [facility] [place], Dispense glucose meter, test strips and lancets covered by the patientinsurance. Test 2 times per day., Disp: , Rfl: ??? busPIRone (for_BUSPAR) 10 mg tablet, Take 2 tablets by mouth 2 (two) times a day., Disp: , Rfl: ??? docusate sodium (for_COLACE) 100 mg capsule, Take 100 mg by mouth daily as needed., Disp: , Rfl: ??? FLUoxetine (for_PROzac) 40 mg capsule, Take 1 capsule by mouth every morning., Disp: , Rfl: ??? fluticasone (for_FLONASE) 50 mcg/actuation nasal spray, Administer 2 sprays into each nostril daily., Disp: 16 g, Rfl: 2 ??? glimepiride (AMARYL) 4 mg tablet, Take 1 tablet (4 mg total) by mouth every morning., Disp: 90 tablet, Rfl: 3 ??? ipratropium (ATROVENT) 0.03 % nasal spray, Administer 2 sprays into each nostril 3 (three) timesa day as needed for rhinitis., Disp: 30 mL, Rfl: 2 ??? lisinopril (for_PRINIVIL,ZESTRIL) 2.5 mg tablet, Take 1 tablet (2.5 mg total) by mouth every morning., Disp: 90 tablet, Rfl: 3 ??? metFORMIN (for_GLUMETZA) 500 mg 24 hr tablet, Take 2 tablets (1,000 mg total) by mouth 2 (two) times a day with meals., Disp: 360 tablet, Rfl: 3 ??? metoprolol tartrate (for_LOPRESSOR) 25 mg tablet, Take 1 tablet (25 mg total) by mouth 2 (two) times a day., Disp: 180 tablet, Rfl: 3 ??? nitroglycerin (NITROSTAT) 0.4 mg SL tablet, Place 1 tablet under the tongue every 5 (five) minutes as needed. Up to 3 doses & call 911 , Disp: , Rfl: ??? oxybutynin (for_DITROPAN-XL) 10 mg 24 hr tablet, Take 1 tablet by mouth daily as needed., Disp: , Rfl: ??? polyethylene glycol (for_MIRALAX) 17 gram powder packet, Take 17 g by mouth daily., Disp: , Rfl: ??? PSYLLIUM HUSK (METAMUCIL ORAL), Take 1.7 g by mouth 2 (two) times a day., Disp: , Rfl: ??? raNITIdine (for_ZANTAC) 150 mg tablet, Take 1 tablet by mouth 2 (two) times a day., Disp: , Rfl: ??? tamsulosin (for_FLOMAX) 0.4 mg 24 hr capsule, Take 1 capsule (0.4 mg total) by mouth daily., Disp: 100 capsule, Rfl: 3 Patient Active Problem List Diagnosis ??? Diabetes Mellitus Type 2 With Diabetic Neuropathy (HCC) ??? Coronary Artery Disease ??? Anxiety ??? Apnea Sleep Obstructive ??? Benign Prostatic Hyperplasia Hypertrophy With Obstruction ??? Body Mass Index 34.0 To 34.9 Adult ??? Callus [place] Foot ??? Constipation ??? Congestion Nasal ??? Coronary Arterial Bypass Graft Status Post Personal History ??? Diverticulosis Colon ??? Hay Fever ??? Hyperlipidemia ??? Hyponatremia ??? Irritable Bowel Syndrome With Constipation ??? Numbness ??? Primary Osteoarthritis Hip Bilateral ??? Primary Osteoarthritis Knee Bilateral ??? Overactive Bladder ??? Panic Disorder Episodic Paroxysmal Anxiety ??? Polyp Colon Adenomatous ??? Retention Urinary Chronic ??? Rhinitis Allergic ??? Spasm Bladder ??? Frequency Urinary ??? 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 High Risk Medication ??? Pain Abdominal NOS ??? Urgency Urinary ??? Polyp Colon Hyperplastic ??? Benign Prostatic Hyperplasia With Lower Urinary Tract Symptom ??? Pain Chest ??? Diabetes Mellitus Type 2 (HCC) ??? Dyspnea NOS The following portions of the patient's history were reviewed and updated as appropriate: allergies,family history, medical history, social history and surgical history. REVIEW OF SYSTEMS Pertinent items are noted in HPI. OBJECTIVE BP 108/68 (BP Location: Left arm, Patient Position: Sitting, Cuff Size: Large) Pulse 68 Temp 36.8 ??C Resp 16 Ht 174 cm Wt 105.3 kg BMI 34.76 kg/m?? PHYSICAL EXAM General Appearance: alert, no distress, cooperative. Head: normocephalic, no masses, lesions, tenderness or abnormalities. Lungs: clear to auscultation. Heart: RRR without murmur, gallop, or rubs. No ectopy. Abdomen: Abdomen soft, non-tender. Bowel sounds normal. No masses, organomegaly, negative CVA tenderness. Genitalia: normal uncircumcised penis with no evidence of swelling. ASSESSMENT / PLAN #1 Dysuria Urinalysis shows no evidence of a UTI. Will hold off on antibiotics at this time. - Urinalysis with Microscopic if Indicated #2 Overactive Bladder Patient has not been consistent with oxybutynin. He will continue with this medication as well as Flomax. We have also recommended using Colace and MiraLax daily for good bowel movements. #3 Diabetes Mellitus Type 2 (HCC) Patient will follow up with his primary care physician next month as scheduled for follow-up of diabetes. In the meantime he has been encouraged to be consistent with his medications. #4 High Risk Medication Patient is on multiple medications and there is some vagueness about her consistent he is on these medications. I have recommended a pharmacy consult to review his medications and make recommendations on what if any we can discontinue. Other orders - Pharmacy - Pharmacy medication review eConsult; Future; Expected date: 07/29/2017 documented in this encounter Plan of Treatment Upcoming Encounters Date Type Specialty Care Team Description 04/23/2022 Office Visit Cardiovascular Disease Blas Peck M.D. [address] [place] [address] [phone] (Wo rk) documented as of this encounter Procedures Procedure Name Priority Date/Time Associated Comments Diagnosis URINALYSIS WITH Routine 07/29/2017 2:22 PM Dysuria Result s for this MICROSCOPIC IF CDT procedure are in INDICATED, U the results section. documented in this encounter Results (ABNORMAL) Urinalysis with Microscopic if Indicated (07/29/2017 2:22 PM CDT) P athologist Signature Source Midstream 07/29/2017 [facility] 2:33 PM CDT [facility] Clarity Clear Clear 07/29/2017 [facility] 2:33 PM CDT [facility] Color Yellow 07/29/2017 [facility] 2:33 PM CDT [facility] Comment: ----REFERENCE VALUE---- Colorless Yellow [place] Blood Negative Negative 07/29/2017 2:33 PM CDT [facility] Nitrite Negative Negative 07/29/2017 2:[address] [facility] Leukocyte Esterase Negative Negative 07/29/2017 2:33 PM CD T [facility] Protein Negative mg/dL 07/29/2017 2:33 PM CDT [facility] Comment: ----REFERENCE VALUE---- Negative Trace Glucose >=1000 (A) Negative mg/dL 07/29/2017 2:33 PM [facility] Ketones, QL(U) Negative Negative mg/dL 07/29/2017 2:33 PM [facility] Bilirubin Negative Negative 07/29/2017 2:33 PM [facility] pH 5.5 5.0 - 8.0 07/29/2017 2:33 PM [facility] Specific [place] 1.010 1.001 - 1.035 07/29/2017 2:33 PM [facility] Urobilinogen 0.2 0.2 - 1.0 mg/dL 07/29/2017 2:33 PM [facility] Specimen Anatomical Collection Method Collection Time Receive d Time (Source) Location / / Volume Laterality Urine (Urine, 07/29/2017 2:22 PM 07/30/19 18 2:26 Clean Catch) CDT PM CDT Figueroa Askew M.D. LAB URINE ORDERABLES Performing Organization Address City/State/ZIP Code Phon e Number [facility] [address] [place], [place] [address] [facility] [address] [place] [address], [facility] documented in this encounter Visit Diagnoses Diagnosis Dysuria - Primary Overactive Bladder Diabetes Mellitus Type 2 (HCC) High Risk Medication documented in this encounter Additional Health Concerns Assessment Noted Time PHQ-9 Depression Total Score: 5 12/23/2016 8:36 AM CDT documented as of this encounter Care Teams Plant Inspector Relationship Specialty Start Date End Date Franco Molina M.D. PCP - General 09/25/16 07/27/19 documented as of this encounter
--- OUTSIDE RECORDS SUMMARY | 2022-02-17 12:24 | XMS_ITS | Encounter Summary ---
:1950 Author Organization [facility] Address [address] [place] [address] Care Team Providers Name Role Phone Franco Molina M.D. Primary Care Provider Encounter Details Date Type Department Care Team Description 06/10/2017 Hospital Department of Franco Molina, Congestive Hea rt Failure (HCC); Encounter Cardiovascular M.DMichelle Coronary Artery Disease Diseases in [address] [place] [phone] Social History Tobacco Use Types Packs/Day Years [...] Sig Dispensed Refills Start Date End Date polyethylene glycol Take 17 g by mouth 0 08/29/19 17 (for_MIRALAX) 17 gram daily. powder packet PSYLLIUM HUSK Take 1.7 g by mouth 0 04/25/2016 (METAMUCIL ORAL) at bedtime. aspirin 81 mg chewable Chew 1 tablet daily. 0 07/09/2020 tablet atorvastatin Take 1 tablet by 0 07/17/20162017 (for_LIPITOR) 20 mg mouth at bedtime. tablet blood-glucose meter Dispense glucose 0 05/23/2015 08/11/2018 [facility] meter, test strips and lancets covered by the patient insurance. Test 2 times per day. busPIRone (for_BUSPAR) Take 2 tablets by 0 201601/18/2018 10 mg tablet mouth 2 (two) times a day. docusate sodium Take 100 mg by mouth 0 06/13/2019 (for_COLACE) 100 mg daily as needed. capsule FLUoxetine (for_PROzac) Take 1 capsule by 0 08/1908/21/2017 40 mg capsule mouth every morning. fluticasone Administer 2 sprays 0 03/26/201606/11 (for_FLONASE) 50 into each nostril mcg/actuation nasal daily. spray glimepiride (AMARYL) 4 Take 1 tablet by 0 017 07/10/2017 mg tablet mouth every morning. ipratropium (ATROVENT) Administer 2 sprays 0 03/1406/22/2017 0.03 % nasal spray into each nostril 3 (three) times a day as needed. lisinopril Take 1 tablet (2.5 90 tablet 3 04/21/20172018 (for_PRINIVIL,ZESTRIL) mg total) by mouth 2.5 mg tablet every morning. metFORMIN Take 2 tablets 360 tablet 3 05/28/2017 10/16/2017 (for_GLUMETZA) 500 mg (1,000 mg total) by 24 hr tablet mouth 2 (two) times a day with meals. metoprolol tartrate Take 1 tablet by 0 06/12/2016 06/18/2017 (for_LOPRESSOR) 25 mg mouth 2 (two) times tablet a day. nitroglycerin Place 1 tablet under 0 09/13/2016 0 09/01/2017 (NITROSTAT) 0.4 mg SL the tongue every 5 tablet (five) minutes as needed. Up to 3 doses & call [address] under the 0 09/13/20162019 (NITROSTAT) 0.4 mg SL tongue. tablet oxybutynin Take 1 tablet by 0 05/08/2017 10/17/19 18 (for_DITROPAN-XL) 10 mg mouth daily as 24 hr tablet needed. raNITIdine (for_ZANTAC) Take 1 tablet by 0 201609/08/2017 150 mg tablet mouth 2 (two) times a day. tamsulosin (for_FLOMAX) Take 1 capsule (0.4 100 capsule 3 03/06/2018 0.4 mg 24 hr capsule mg total) by mouth daily. documented as of this encounter Progress Notes Franco Molina M.D. - 06/10/2017 11:59 PM CST Please call him. Echocardiogram show mild right ventricular enlargement with decreased systolic function. He needs to follow with [employer] as previously scheduled in July 2017. Final Impressions 1. Normal left ventricular chamber size and [...] Side by side comparison of images performed. OTIONAL DEMONSTRATOR documented in this encounter Plan of Treatment Upcoming Encounters Date Type Specialty Care Team Description 04/23/2022 Office Visit Cardiovascular Disease Blas Peck M.D. [address] [place] [phone] (Wo rk) documented as of this encounter Procedures Procedure Name Priority Date/Time Associated Diagnosis Comme nts (TTE) 2D ECHO Routine 06/10/2017 9:29 AM Congestive Heart Resu lts for this DOPPLER COLOR PROMOTIONAL DEMONSTRATOR Failure (HCC) procedure are in Coronary Artery the results Disease section. documented in this encounter Results (TTE) 2D ECHO DOPPLER COLOR (06/10/2017 9:29 AM PROMOTIONAL DEMONSTRATOR) Patholo gist Method Time Signature Ejection Fraction 56 MC CV EIMS Mid-Ascending Aorta 36 MC CV EIMS Wall Motion Score 1.13 MC CV EIMS Index LV Mass Index 65 MC CV EIMS LV End-Diastolic 43 MC CV EIMS Diameter LV End-Systolic 30 MC CV EIMS Diameter MV E Velocity 0.4 MC CV EIMS MV A Velocity 0.6 MC CV EIMS MV E/A 0.67 MC CV EIMS MV e' Velocity 0.05 MC CV EIMS Medial MV e' Velocity 0.12 MC CV EIMS Lateral MV E/e' Medial 8.0 MC CV EIMS MV E/e' Lateral 3.3 MC CV EIMS Left ventricular 34 MC CV EIMS stroke volume index Cardiac Output 5.76 MC CV EIMS Cardiac Index 2.64 MC CV EIMS LV Interventricular 12 MC CV EIMS Septal Wall Thickness LV Posterior Wall 8 MC CV EIMS Thickness LV Relative Wall 37 MC CV EIMS Thickness RV 4-Chamber Basal 44 MC CV EIMS Diameter TAPSE 11 MC CV EIMS Tricuspid Annular S? 0.10 MC CV EIMS TR Vmax 2.10 MC CV EIMS RA Pressure 5 MC CV EIMS RV Systolic Pressure 23 MC CV EIM S Estimated diastolic 8 MC CV EIMS pulmonary artery pressure Aortic valve area 3.94 MC CV EIMS Aortic Valve 0.95 MC CV EIMS Dimensionless Index LA Volume Index 19 MC CV EIMS WMSI At Rest 1.13 MC CV EIMS WMSI At Peak Stress 1.13 MC CV EIMS Anatomical Region Laterality Modality Echocardiography Specimen (Source) Anatomical Collection Method Collection Time Re ceived Time Location / / Volume Laterality 06/10/2017 8:49 AM PROMOTIONAL DEMONSTRATOR Narrative 06/10/2017 2:01 PM PROMOTIONAL DEMONSTRATOR See PDF For Result Procedure Note Blas Peck M.D. - 06/10/2017Form atting of this note might be different from the original. See PDF For Result Franco Molina M.D. CV ECHO PROCEDURES documented in this encounter Visit Diagnoses Diagnosis Congestive Heart Failure (HCC) Coronary Artery Disease (Unspecified) documented in this encounter Additional Health Concerns Assessment Noted Time PHQ-9 Depression Total Score: 5 12/23/2016 8:36 AM CDT documented as of this encounter Care Teams Obstetrics Technician Relationship Specialty Start Date End Date Franco Molina M.D. PCP - General 09/25/16 07/27/19 documented as of this encounter
--- OUTSIDE RECORDS SUMMARY | 2022-02-17 12:24 | XMS_ITS | Encounter Summary ---
:1950 Author Organization [facility] Address [address] [place] [address] Care Team Providers Name Role Phone Franco Molina M.D. Primary Care Provider Encounter Details Date Type Department Care Team Description 08/21/2017 Hospital Encounter Department of Franco Molina M.D. Diabetes Mellitus Laboratory Medicine [address] Type 2 With Diabetic in [facility] [place], [facility] [address] Neuropathy (HCC) [place], [place] [address] [facility] [address] [place], [place] [phone] (Fax) [phone] Social History Tobacco Use Types Packs/Day Years [...] mg tablet total) by mouth at bedtime. blood-glucose meter Dispense glucose 0 05/23/2015 08/11/2018 misc meter, test strips and lancets covered by the patient insurance. Test 2 times per day. busPIRone (for_BUSPAR) Take 2 tablets by 0 201601/18/2018 10 mg tablet mouth 2 (two) times a day. docusate sodium Take 100 mg by mouth 0 06/13/2019 (for_COLACE) 100 mg daily as needed. capsule FLUoxetine (PROzac) 40 TAKE ONE CAPSULE BY 90 capsule 3 08/1112/10/2017 mg capsule MOUTH ONCE DAILY IN THE MORNING fluticasone Administer 2 sprays 16 g 2 06/22/201711/11 (for_FLONASE) 50 into each nostril mcg/actuation nasal daily. sprayIndications: Sinusitis Acute glimepiride (AMARYL) 4 Take 1 tablet (4 mg 90 tablet 3 06/1309/01/2017 mg tablet total) by mouth every morning. ipratropium (ATROVENT) Administer 2 sprays 30 mL 2 06/1111/22/2018 0.03 % nasal into each nostril 3 sprayIndications: (three) times a day Sinusitis Acute as needed for rhinitis. lisinopril Take 1 tablet (2.5 90 tablet 3 04/21/20172018 (for_PRINIVIL,ZESTRIL) mg total) by mouth 2.5 mg tablet every morning. metFORMIN Take 2 tablets 360 tablet 3 05/28/2017 10/16/2017 (for_GLUMETZA) 500 mg (1,000 mg total) by 24 hr tablet mouth 2 (two) times a day with meals. metoprolol tartrate Take 1 tablet (25 mg 180 tablet 3 201706/18/2018 (for_LOPRESSOR) 25 mg total) by mouth 2 tablet (two) times a day. nitroglycerin Place 1 tablet under [...] Office Visit Cardiovascular Disease Blas Peck M.D. [facility] [address] [place] [phone] (Wo rk) documented as of this encounter Procedures Procedure Name Priority Date/Time Associated Diagnosis Comme nts ALBUMIN, RANDOM, U Routine 08/21/2017 8:23 AM Diabetes Mellitu s Results for this CDT Type 2 With Diabetic procedu re are in Neuropathy (HCC) the results section. documented in this encounter Results Microalbumin, Random, Urine (08/21/2017 8:23 AM CDT) athologist Signature Microalbumin <7.0 mg/L 08/21/2017 [facility] 12:15 PM [facility] Creatinine 82 mg/dL 08/21/2017 [facility] 12:15 PM T [facility] Albumin/Creatinin <9 <17 mg/g 08/21/2017 [facility] e Ratio 12:15 PM T [facility] Comment: This ratio may not correspond with the r eference range because one or both of the values used t o calculate the ratio was above or below the quantificat ion limits. Specimen Anatomical Collection Method Collection Time Receive d Time (Source) Location / / Volume Laterality Urine 08/21/2017 8:23 AM 8 CDT 11:11 AM CDT Franco Molina M.D. LAB URINE ORDERABLES Performing Organization Address City/State/ZIP Code Phon e Number [facility] [address] [place] [address] LAB documented in this encounter Visit Diagnoses Diagnosis 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 (HCC) documented in this encounter Additional Health Concerns Assessment Noted Time PHQ-9 Depression Total Score: 5 12/23/2016 8:36 AM CDT documented as of this encounter Care Teams Bilingual Patient Support Caseworker Relationship Specialty Start Date End Date Franco Molina M.D. PCP - General 09/25/16 07/27/19 documented as of this encounter
--- OUTSIDE RECORDS SUMMARY | 2022-02-17 12:24 | XMS_ITS | Encounter Summary ---
:1950 Author Organization [facility] Address [address] [place] [address] Care Team Providers Name Role Phone Franco Molina M.D. Primary Care Provider Encounter Details Date Type Department Care Team Description 08/21/2017 Hospital Encounter Department of Franco Molina M.D. 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 [address] [place] [address] [phone] (Wo rk) documented as of this encounter Procedures Procedure Name Priority Date/Time Associated Diagnosis Comme nts LIPID PANEL, S Routine 08/21/2017 7:45 AM Diabetes Mellitus Re sults for this CDT Type 2 With Diabetic procedu re are in Neuropathy (HCC) the results Hypertensive Heart section. And Chronic Kidney Disease Without Heart Failure And With Stage 2 (Mild) Chronic Kidney Disease Coronary Artery Disease Hyperlipidemia HEPATIC FUNCTION Routine 08/21/2017 7:45 AM Diabetes Mellitus Results for this PANEL, S CDT Type 2 With Diabetic procedu re are in Neuropathy (HCC) the results Coronary Artery section. Disease Hyperlipidemia High Risk Medication CBC WITHOUT Routine 08/21/2017 7:45 AM Hypertensive Heart Res ults for this DIFFERENTIAL, B CDT And Chronic Kidney proced ure are in Disease Without Heart the re sults Failure And With section. Stage 2 (Mild) Chronic Kidney Disease Coronary Artery Disease Coronary Arterial Bypass Graft Status Post Personal History THYROID-STIMULATING Routine 08/21/2017 7:45 AM Hypertensive He art Results for this HORMONE-SENSITIVE CDT And Chronic Kidney proc edure are in (S-TSH) Disease Without Heart the re sults Failure And With section. Stage 2 (Mild) Chronic Kidney Disease Coronary Artery Disease Hyperlipidemia HEMOGLOBIN A1C, B Routine 08/21/2017 7:45 AM Diabetes Mellitus Results for this CDT Type 2 With Diabetic procedu re are in Neuropathy (HCC) the results section. CREATINE KINASE Routine 08/21/2017 7:45 AM Diabetes Mellitus R esults for this (CK), S CDT Type 2 With Diabetic procedu re are in Neuropathy (HCC) the results Coronary Artery section. Disease Hyperlipidemia High Risk Medication BASIC METABOLIC Routine 08/21/2017 7:45 AM Diabetes Mellitus R esults for this PANEL, S/P CDT Type 2 With Diabetic procedu re are in Neuropathy (HCC) the results Hypertensive Heart section. And Chronic Kidney Disease Without Heart Failure And With Stage 2 (Mild) Chronic Kidney Disease Hyperlipidemia documented in this encounter Results S-TSH (Thyroid-Stimulating Hormone - Sensitive) (08/21/2017 7:45 AM CDT) athologist Signature TSH, Sensitive 2.0 0.3 - 4.2 08/21/2017 [facility] mIU/L 11:48 AM CDT [facility] Comment: Biotin has been identified by the [...] (Source) Location / / Volume Laterality Blood 08/21/2017 7:45 AM 8 CDT 11:11 AM CDT Franco Molina M.D. LAB BLOOD ADD-ON Performing Organization Address City/State/ZIP Code Phon e Number [facility] [address] [place] [address] LAB Lipid Panel (08/21/2017 7:45 AM CDT) athologist Signature Cholesterol, 109 mg/dL 08/21/2017 [facility] Total 11:48 AM CDT [facility] Comment: ----REFERENCE VALUE---- Desirable: < 200 Borderline high: 200 - 239 High: > or = 240 Triglycerides 74 mg/dL 08/21/2017 11:48 AM CDT [facility] Comment: ----REFERENCE VALUE---- Normal: <150 Borderline high: 150-199 High: 200-499 Very high: > or =500 Cholesterol, HDL, S 40 >=40 mg/dL 08/21/2017 11:48 AM CDT [facility] Calculated LDL 54 mg/dL 08/21/2017 11:48 AM CDT [facility] Comment: ----REFERENCE VALUE---- Desirable: <100 Above Desirable: 100-129 Borderline high: 130-159 High: 160-189 Very high: > or =190 Cholesterol, Non-HDL, 69 mg/dL 08/21/2017 11:48 A M CDT [facility] [place] B Comment: ----REFERENCE VALUE---- Desirable: <130 Above Desirable: 130-159 Borderline high: 160-189 High: 190-219 Very high: > or =220 Specimen Anatomical Collection Method Collection Time Receive d Time (Source) Location / / Volume Laterality Blood 08/21/2017 7:45 AM 8 CDT 11:11 AM CDT Franco Molina M.D. LAB BLOOD ADD-ON Performing Organization Address City/State/ZIP Code Phon e Number [facility] [address] [place] [address] LAB (ABNORMAL) Hemoglobin A1c (08/21/2017 7:45 AM CDT) P athologist Signature Hemoglobin A1c, 8.0 (H) 4.2 - 5.6 08/21/2017 [facility] B % 11:46 AM CDT [facility] Comment: Hemoglobin A1c values greater than or eq ual to 6.5 percent are diagnostic for diabetes mellitus. ?? Diagnosis should be confirmed by repeat testing. ??In diabet ic patients, HbA1c goals should be discussed with healthcar e provider. Specimen Anatomical Collection Method Collection Time Receive d Time (Source) Location / / Volume Laterality Blood 08/21/2017 7:45 AM 8 CDT 11:11 AM CDT Franco Molina M.D. LAB BLOOD ADD-ON Performing Organization Address City/State/ZIP Code Phon e Number [facility] [address] [place] [address] LAB CK (Creatine Kinase) (08/21/2017 7:45 AM CDT) P athologist Signature Creatine Kinase 241 39 - 308 08/21/2017 [facility] (CK), S U/L 3:11 PM CDT [facility] [place] [facility] Specimen Anatomical Collection Method Collection Time Receive d Time (Source) Location / / Volume Laterality Blood 08/21/2017 7:45 AM 8 2:09 CDT PM CDT Franco Molina M.D. LAB BLOOD ADD-ON Performing Organization Address City/State/ZIP Code Phon e Number [facility]- [address] [place] [address] [place] LAB Hepatic Function Panel (08/21/2017 7:45 AM CDT) Patholo gist Method Time Signature Bilirubin, Total, S 0.6 <=1.2 08/21/2017 [facility] mg/dL 11:48 AM CDT [facility] Bilirubin, Direct, S 0.2 0.0 - 0.3 08/21/2017 [facility]Y mg/dL 11:48 AM T [facility] Aspartate 19 8 - 48 08/21/2017 [facility] Aminotransferase U/L 11:48 AM T [facility] Alanine 14 7 - 55 08/21/2017 [facility] Aminotransferase U/L 11:[address] [facility] Alkaline 111 45 - 115 08/21/2017 [facility] Phosphatase, S U/L 11:48 AM T [facility] Albumin, S 4.4 3.5 - 5.0 08/21/2017 [facility] g/dL 11:48 AM T [facility] [place] [facility] Protein, Total, S 7.1 6.3 - 7.9 08/21/2017 [facility] g/dL 11:48 AM CDT [facility] Specimen Anatomical Collection Method Collection Time Receive d Time (Source) Location / / Volume Laterality Blood 08/21/2017 7:45 AM 8 CDT 11:11 AM CDT Franco Molina M.D. LAB BLOOD ADD-ON Performing Organization Address City/State/ZIP Code Phon e Number [facility] [address] [place] [address] LAB (ABNORMAL) BMP (Basic Metabolic Panel) (08/21/2017 7:45 AM CDT) P athologist Signature Potassium, S 5.0 3.6 - 5.2 08/21/2017 [facility] mmol/L 11:48 AM [facility] LAB Sodium, S 136 135 - 145 08/21/2017 [facility] mmol/L 11:48 AM [facility] LAB Chloride, S 95 (L) 98 - 107 08/21/2017 [facility] mmol/L 11:48 AM [facility] LAB Bicarbonate, S 27 22 - 29 08/21/2017 [facility] mmol/L 11:48 AM [facility] LAB Anion Gap 14 7 - 15 08/21/2017 [facility] 11:48 AM [facility] LAB BUN (Blood Urea 14 8 - 24 08/21/2017 [facility] Nitrogen), S mg/dL 11:48 AM [facility] LAB Creatinine 0.99 0.74 - 08/21/2017 [facility] 1.35 mg/dL 11:48 AM [facility] LAB eGFR-Non 79 >=60 08/21/2017 [facility] Black/ mL/min/BSA 11:48 AM [facility] [email or web address] [facility]- [place] [facility] Comment: ----ADDITIONAL INFORMATION---- Estimated GFR calculated using the 2009 CKD_EPI creatinine equation. eGFR-Black/ >90 >=60 mL/min/BSA 2017 11:48 [facility] Comment: ----ADDITIONAL INFORMATION---- Estimated GFR calculated using the 2009 CKD_EPI creatinine equation. Calcium, Total, S 9.9 8.8 - 10.2 mg/dL 08/21/2017 11:4 8 AM [facility] [place] [facility] Glucose, S 143 (H) 70 - 140 mg/dL 08/21/2017 11:48 AM [facility] [place] [facility] Specimen Anatomical Collection Method Collection Time Receive d Time (Source) Location / / Volume Laterality Blood 08/21/2017 7:45 AM 8 CDT 11:11 AM CDT Franco Molina M.D. LAB BLOOD ADD-ON Performing Organization Address City/[facility]/ZIP Code Phon e Number [facility] [address] [place] [address] LAB CBC without Differential (08/21/2017 7:45 AM CDT) P athologist Signature Hemoglobin 14.3 13.2 - 08/21/2017 [facility] 16.6 g/dL 8:38 AM [facility] [employer] [facility] Hematocrit 41.8 38.3 - 08/21/2017 [facility] 48.6 % 8:38 AM [facility] [employer] [facility] Erythrocytes 4.83 4.35 - 08/21/2017 [facility] 5.65 8:[address] [facility] x10(12)/L [facility] [employer] [facility] MCV 86.5 78.2 - 08/21/2017 [facility] 97.9 fL 8:38 AM [facility] [employer] [facility] RBC Distrib Width 14.0 11.8 - 08/21/2017 [facility] 14.5 % 8:38 AM [facility] [employer] [facility] Platelet Count 238 135 - 317 08/21/2017 [facility] x10(9)/L 8:38 AM [facility] [employer] [facility] Leukocytes 6.2 3.4 - 9.6 08/21/2017 [facility] x10(9)/L 8:38 AM [facility] [employer] [facility] Specimen Anatomical Collection Method Collection Time Receive d Time (Source) Location / / Volume Laterality Blood 08/21/2017 7:45 AM 8 7:47 CDT AM CDT Franco Molina M.D. LAB BLOOD ADD-ON Performing Organization Address City/State/ZIP Code Phon e Number [facility] [address] [place] [address] [place] [facility] [address] 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 PCP - General 09/25/16 07/27/19 documented as of this encounter
--- OUTSIDE RECORDS SUMMARY | 2022-02-17 12:24 | XMS_ITS | Encounter Summary ---
:1950 Author Organization [facility] Address [address] [place] [address] Care Team Providers Name Role Phone Franco Molina M.D. Primary Care Provider Reason for Visit Reason Comments Med Refill Encounter Details Date Type Department Care Team Description 06/18/2017 Refill Department of [facility] Franco Molina M.D. Med Refill Medicine, [facility], ar [address] [facility] [address] [place] [address] [address] [place] [address]0 [facility] [phone] Social History Tobacco Use Types Packs/Day Years [...] Visit Cardiovascular Disease Blas Peck M.D. [address] [place] [address] [phone] (Wo rk) documented as of this encounter Visit Diagnoses Not on filedocumented in this encounter Additional Health Concerns Assessment Noted Time PHQ-9 Depression Total Score: 5 12/23/2016 8:36 AM CDT documented as of this encounter Care Teams Glue Jointer Operator Relationship Specialty Start Date End Date Franco Molina M.D. PCP - General 09/25/16 07/27/19 documented as of this encounter
--- OUTSIDE RECORDS SUMMARY | 2022-02-17 12:24 | XMS_ITS | Encounter Summary ---
:1950 Author Organization [facility] Address [address] [place] [address] Care Team Providers Name Role Phone Franco Molina M.D. 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 [facility] Cardiovascular Disease [address], [facility] [address] [place] [address] Referral ID Status Reason Start Date Expiration Date Visits Requ ested Visits Authorized [id number] Closed 05/28/2017 11/24/2017 1 1 Encounter Details Date Type Department Care Team Description 07/29/2017 Comprehensive Visit Department of Franco Molina M.D. [address], [facility] [address] [place] [address] Hyperlipidemia (Primary Dx); Cardiovascular Blas Peck M.D. [address] [place] [address] Coronary Artery Disease; Diseases in Hypertensive He art And Chronic Kidney Disease Without Heart Failure And With Stage 2 (Mild) Chronic Kidney Disease; [place] Dyspnea On Exertion [address] [place] [address] Social History Tobacco Use Types [...] Sign Reading Time Taken Comments Blood Pressure 118/62 07/29/2017 8:08 AM CDT Pulse 68 07/29/2017 8:08 AM CDT Temperature - - Respiratory Rate - - Oxygen Saturation 97% 07/29/2017 8:08 AM CDT Inhaled Oxygen Concentration - - Weight 104 kg (229 lb 8 oz) 07/29/2017 8:08 AM CDT Height 174 cm (5' 8.5) 07/29/2017 8:08 AM CDT Body Mass Index 34.38 07/29/2017 8:08 AM CDT documented in this encounter Consult Notes Blas Peck M.D. - 07/29/2017 8:15 AM CDT ASSESSMENT / PLAN 1. Coronary artery disease. - Status post CABG 4-vessel in [place] on 2014. 2. Hypertension 3. Hyperlipidemia 4. Mild right ventricular enlargement with mildly reduced systolic function by ECHO. 5. Obesity, BMI 34. 6. Obstructive sleep apnea 7. History of hyponatremia, as per PCPs note 8. History of panic attacks, Depression/anxiety 9. Irritable bowel syndrome 10. Osteoarthritis. 11. Diabetes mellitus type 2 with neuropathy 12. Dyspnea on exertion. Coronary artery disease. The patient has chest discomfort and exertional dyspnea which are not fullytypical of ischemia. However, he has difficulty describing the features of his discomfort. Risk factors do not appear to be fully modified. In view of that, I will proceed with cardiopulmonary stress nuclear stress testing in [place] at the patient's earliest convenience. He is unable to do the treadmill due to osteoarthritis but believes he can complete the bicycle stress test. Continue aspirin daily. Repeat lipids will be performed in the near future, as per patient's report. Consider increasingatorvastatin to high- intensity dose based on results. Hypertension is well controlled. Regular follow -up with primary care provider and discussion of side effect of diabetes medication was recommended in order to improve medication compliance and diabetes mellitus control. Dyspnea exertion. Multifactorial. [place] heart Association class 2. No evidence of volume overloadon exam or by labs. Echo is not suggestive of constriction and normal filling pressure appear was described. Deconditioning and obesity may be playing a role in which case weight loss and exercise could help improve symptoms as we discussed with the patient. Right ventricular abnormalities found on echo I am not associated with pulmonary hypertension. It is more likely this is secondary to obesity and untreated obstructive sleep apnea. I strongly recommended follow-up space sleep specialist and repeat at CPAP titration study as per their recommendation. Follow up with Cardiology in 6 months but may postpone for a year in case symptoms are improved. I discussed these issues the patient, he expressed understanding and agreement with the plan. CARDIOLOGY CONSULTATION Location: [facility] Referring Provider: Franco Molina M.D. CHIEF COMPLAINT/REASON FOR CONSULT New Patient (has seen cardio on 09/28/15 dr bower ) HISTORY OF PRESENT ILLNESS Mr. Elvis Dawkins is a very pleasant 67 y.o. male who presents to [facility] for evaluation of coronary artery disease not normal echocardiogram. His primary care provider is Franco Molina M.D.. Presenting unaccompanied by family. Patient was referred to us in view of abnormal echocardiogram as well as history of coronary artery disease. He had coronary artery disease diagnosed in [place] with 4 vessel CABG performed in 2014. The patient is not a good historian and was unsure why a coronary angiogram was done. He does not recall having had symptoms suggestive of coronary artery disease at that time. I reviewed notes from [facility] from 2016 with days of report the patient apparently was symptomatic. He now reports mostly of her lower abdominal pain which has been an issue for many years, since at least 2014. He also has irritable bowel syndrome and with abdominal bloating/distension for ???many years?? . From a car diovascular point of view he does report occasional chest discomfort and exertional shortness of breath. The chest discomfort is ill-defined but he states that he has symptoms with activities and has taken nitro approximately 3 times a month. He is unsure if symptoms are worsening but he states that he can wake up with heaviness in his chest even when he is not exerting himself. He does not take nitro for that symptom. No nausea, vomiting, diaphoresis or shortness of breath at rest associated with the heaviness. He does develop dyspnea on exertion when he is walking upstairs or caring groceries. Heis mildly limited by that. Patient also reports some significant problems with panic attacks. He hasobstructive sleep apnea but has had trouble with panic attacks with the CPAP mask. Still undergoing evaluation for that. He was recently seen by his primary care provider with chest congestion and status post antibiotics for 10 days. He felt better initially but then rib pain with coughing. Referred to Cardiology in view of mild right ventricular enlargement with mild decreased systolic function on ECHO. Patient states that he is compliant with medications. No recent lipids but he states he will be having repeat labs done in 1 month. We reviewed lab results an echo results with the patient. A1c hasnot been ideal but he states he is not fully compliant with metformin in view of abdominal/GI side effects. Cardiovascular Risk Factors: 1. Smoking status: has never smoked. He did smoke cigars but he states that never inhaled in the past. Unable to quantify. 2. Type II Diabetes Mellitus: yes. 3. Hypertension: yes 4. Dyslipidemia: yes. 5. Family history of early Coronary Artery Disease in a first degree relative (Male less than 55 years of age; Female less than 65 years of age): no 6. Obesity and/or Metabolic Syndrome: yes 7. Sedentary lifestyle: yes 8. Menopausal status: N/A Current Outpatient Medications Medication Sig ??? aspirin 81 mg chewable tablet Chew 1 tablet daily. ??? atorvastatin (for_LIPITOR) 20 mg tablet Take 1 tablet by mouth at bedtime. ??? blood-glucose meter [facility] glucose meter, test strips and lancets covered by the patient insurance. Test 2 times per day. ??? busPIRone (for_BUSPAR) 10 mg tablet Take 2 tablets by mouth 2 (two) times a day. ??? docusate sodium (for_COLACE) 100 mg capsule Take 100 mg by mouth daily as needed. ??? FLUoxetine (for_PROzac) 40 mg capsule Take 1 capsule by mouth every morning. ??? fluticasone (for_FLONASE) 50 mcg/actuation nasal spray Administer 2 sprays into each nostril daily. ??? glimepiride (AMARYL) 4 mg tablet Take 1 tablet (4 mg total) by mouth every morning. ??? ipratropium (ATROVENT) 0.03 % nasal spray Administer 2 sprays into each nostril 3 (three) times a day as needed for rhinitis. ??? lisinopril (for_PRINIVIL,ZESTRIL) 2.5 mg tablet Take 1 tablet (2.5 mg total) by mouth every morning. ??? metFORMIN (for_GLUMETZA) 500 mg 24 hr tablet Take 2 tablets (1,000 mg total) by mouth 2 (two) times a day with meals. ??? metoprolol tartrate (for_LOPRESSOR) 25 mg tablet Take 1 tablet (25 mg total) by mouth 2 (two) times a day. ??? nitroglycerin (NITROSTAT) 0.[address] 1 tablet under the tongue every 5 (five) minutes as needed. Up to 3 doses & call 911 ??? oxybutynin (for_DITROPAN-XL) 10 mg 24 hr tablet Take 1 tablet by mouth daily as needed. ??? polyethylene glycol (for_MIRALAX) 17 gram powder packet Take 17 g by mouth daily. ??? PSYLLIUM HUSK (METAMUCIL ORAL) Take 1.7 g by mouth 2 (two) times a day. ??? raNITIdine (for_ZANTAC) 150 mg tablet Take 1 tablet by mouth 2 (two) times a day. ??? tamsulosin (for_FLOMAX) 0.4 mg 24 hr capsule Take 1 capsule (0.4 mg total) by mouth daily. Allergies Allergen Reactions ??? Sertraline Other (see comments) ??? Sulfamethoxazole-Trimethoprim Swelling Social History Social History ??? Marital status: Spouse name: N/A ??? Number of children: N/A ??? 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 Smoking status: Never Smoker ??? Smokeless tobacco: Never Used ??? Alcohol use None ??? Drug use: Unknown ??? Sexual activity: Not Asked Other Topics Concern ??? None Social History Narrative ??? None Family History Problem Relation Age of Onset ??? Deep vein thrombosis Father ??? Hypertension Mother ??? Diabetes Mother ??? Cataracts Mother ??? Irritable bowel syndrome Mother ??? Colon cancer Mother ??? Irritable bowel syndrome Grandfather ??? Parkinson disease Sister ??? Parkinsons disease Sister ??? Prostate cancer Brother REVIEW OF SYSTEMS Constitutional: Positive for fatigue (Poor sleep). Negative for fever, weight gain of more than 10 pounds, weight loss of more than 10 pounds and generalized weakness. Skin: Negative for skin rash. Eyes: Negative for double vision and visual problems. ENT: Negative for persistent hoarse voice. Respiratory: Positive for dry cough and dyspnea. Negative for coughing up blood, coughing up mucus (phlegm) and sleep disturbances due to breathing. Cardiovascular: Positive for chest pain, pressure or tightness. Negative for swelling in the legs orfeet, rapid or fluttering heart beat, pain in the calf muscles when walking and shortness of breath when lying flat. Gastrointestinal: Positive for abdominal (belly) pain or cramping (Lower abdominal pain, bloating, ???bladder?? problems). Negative for blood in stool, heartburn and difficulty swallowing. Genitourinary: Negative for hematuria. Hematologic: Negative for bruises or bleeds easily. Musculoskeletal: Positive for arthralgias, pain or stiffness in the joints and muscle pain/stiffness. Neurological: Negative for seizures, loss of consciousness, light-headedness, numbness or shooting pain in hands, arms, legs, or feet, excessive daytime sleepiness, loss of balance or tendency to fall easily, headaches and weakness in arms or legs. Psychiatric/Behavioral: Negative for excessive daytime sleepiness/tiredness, snores loudly and stop breathing, choking, or gasping while asleep. The following portions of the patient's history were reviewed and updated as appropriate: allergies,current medications, family history, medical history, social history, surgical history and problem list. OBJECTIVE Vitals: 07/29/17 0808 BP: 118/62 BP Location: Left arm Patient Position: Sitting Cuff Size: Regular Pulse: 68 SpO2: 97% Weight: 104.1 kg Height: 174 cm BP Readings from Last 3 Encounters: 07/29/17 118/62 07/09/17 110/66 06/22/17 120/72 Body mass index is 34.38 kg/m??. PHYSICAL EXAMINATION GENERAL: Patient is awake, alert, oriented x3. No acute distress. EYES: Pupils are equal and symmetric in size, normal extraocular movements. No pallor. No icterus. No xanthelasma. ENT: Upper dentures, tongue is mild enlarged. No drainage from the ear canals bilaterally. NECK: No jugular venous distention. No carotid bruits. CHEST/LUNGS: No chest deformity. Normal respiratory effort. Good entry bilaterally. No adventitious sounds. CARDIOVASCULAR: Normal rate and regular rhythm. Distant heart sounds. Normal S1 and S2. No murmurs, rubs, or gallops. Negative hepatojugular reflux. ABDOMEN: Distended, hypertympanic, soft, nontender, nondistended. Positive bowel sounds. No pulsatile masses. No hepatosplenomegaly. LOWER EXTREMITIES: Lower extremity warm without edema. UPPER EXTREMITIES: 2+ Radial pulses bilaterally. Normal capillary refill. No clubbing, no cyanosis. NEUROLOGIC: No focal motor findings in upper or lower extremities. DIAGNOSTICS I have reviewed the patient's current laboratory, imaging, and other diagnostic studies. Pertinent laboratory studies have been reviewed and are notable for: Office Visit on 07/09/2017 Component Date Value ??? Influenza A, Rapid 07/09/2017 Negative ??? Influenza B, Rapid 07/09/2017 Negative Hospital Outpatient Visit on 06/10/2017 Component Date Value ??? Ejection Fraction 06/10/2017 56 ??? Mid-Ascending Aorta 06/10/2017 36 ??? Wall Motion Score Index 06/10/2017 1.13 ??? LV Mass Index 06/10/2017 65 ??? LV End-Diastolic Diameter 06/10/2017 43 ??? LV End-Systolic Diameter 06/10/2017 30 ??? E Velocity 06/10/2017 0.4 ??? A Velocity 06/10/2017 0.6 ??? E/A 06/10/2017 0.67 ??? eVelocity Medial 06/10/2017 0.05 ??? eVelocity Lateral 06/10/2017 0.12 ??? E/eMedial 06/10/2017 8.0 ??? E/eLateral 06/10/2017 3.3 ??? Left ventricular stroke * 06/10/2017 34 ??? Cardiac Output 06/10/2017 5.76 ??? Cardiac Index 06/10/2017 2.64 ??? LV Interventricular Sept* 06/10/2017 12 ??? LV Posterior Wall Thickn* 06/10/2017 8 ??? Relative Wall Thickness 06/10/2017 37 ??? 4-Chamber Base 06/10/2017 44 ??? Tapse 06/10/2017 11 ??? Tricuspid Annular S??? 06/10/2017 0.10 ??? TR Vmax 06/10/2017 2.10 ??? RA Pressure 06/10/2017 5 ??? RV Systolic Pressure 06/10/2017 23 ??? Estimated diastolic pulm* 06/10/2017 8 ??? Aortic valve area 06/10/2017 3.94 ??? Dimensionless Index 06/10/2017 0.95 ??? LA Volume Index 06/10/2017 19 ??? WMSI At Rest 06/10/2017 1.13 ??? WMSI At Peak Stress 06/10/2017 1.13 NT proBNP 99 05/2017. A1c 7.8 05/2017. Normal CBC and normal the CMP but for chloride 96. Pertinent imaging studies have been reviewed and are notable for: Echocardiogram May 2017: 1. Normal left ventricular [...] Side by side comparison of images performed. Chest x-ray June 2017: No focal infiltrates or consolidations. Mild prominence of the lung interstitium, likely due to overlying soft tissue density. Postcardiac surgical changes. Degenerative changes of the spine. IMPRESSION/REPORT/PLAN See above. Note: Dictated portions of this note were done using [employer] front-end speech recognition software. documented in this encounter Plan of Treatment Upcoming Encounters Date Type Specialty Care Team Description 04/23/2022 Office Visit Cardiovascular Disease Blas Peck M.D. [address] [place] [phone] (Wo rk) documented as of this encounter Visit Diagnoses Diagnosis Hyperlipidemia - Primary Coronary Artery Disease (Unspecified) Hypertensive Heart And Chronic Kidney Di sease Without Heart Failure And With Stage 2 (Mild) Chronic Kidney Disease Dyspnea On Exertion documented in this encounter Additional Health Concerns Assessment Noted Time PHQ-9 Depression Total Score: 5 12/23/2016 8:36 AM CDT documented as of this encounter Care Teams Carburetor Repairer Relationship Specialty Start Date End Date Franco Molina M.D. PCP - General 09/25/16 07/27/19 documented as of this encounter
--- OUTSIDE RECORDS SUMMARY | 2022-02-17 12:24 | XMS_ITS | Encounter Summary ---
:1950 Author Organization [facility] Address [address] [place] [address] Care Team Providers Name Role Phone Franco Molina M.D. Primary Care Provider Reason for Visit Reason Comments URI Started about a week. Nasal congestion. Chest congestion. Encounter Details Date Type Department Care Team Description 06/22/2017 Office Visit Department of Family Radha Milan [facility] Acute Medicine, [facility] (Primary Dx) [facility], in [address] [address] [place], [place] [phone] [phone] (Work) [phone] Social History Tobacco Use Types Packs/Day Years [...] Sign Reading Time Taken Comments Blood Pressure 120/72 06/22/2017 8:31 AM CDT Pulse 64 06/22/2017 8:31 AM CDT Temperature 35.9 ??C (96.6 ??F) 06/22/2017 8:31 AM CDT Respiratory Rate 16 06/22/2017 8:31 AM CDT Oxygen Saturation 99% 06/22/2017 8:31 AM CDT Inhaled Oxygen Concentration - - Weight 107 kg (235 lb 14.3 oz) 06/22/2017 8:31 AM CDT Height - - Body Mass Index 35.34 01/20/2017 3:46 PM CDT documented in this encounter Patient Instructions Patient InstructionsRadha Milan M.D. - 06/22/2017 8:30 AM CDT 1. Sinusitis Acute -Will treat with Augmentin for 10 days. -Cool mist vaporizer, Saline gargles, saline nasal spray, Warm packs to face and Humidifier - fluticasone (for_FLONASE) 50 mcg/actuation nasal spray; Administer 2 sprays into each nostril daily. Dispense: 16 g; Refill: 2 - ipratropium (ATROVENT) 0.03 % nasal spray; Administer 2 sprays into each nostril 3 (three) times aday as needed for rhinitis. Dispense: 30 mL; Refill: 2 - amoxicillin-pot clavulanate (for_AUGMENTIN) 875-125 mg per tablet; Take 1 tablet by mouth 2 (two) times a day for 10 days. Dispense: 20 tablet; Refill: 0 documented in this encounter Progress Notes Radha Milan M.D. - 06/22/2017 8:30 AM CDT [facility] IN [place] Chief Complaint Chief Complaint Patient presents with ??? URI Started about a week. Nasal congestion. Chest congestion. HPI HPI Acute Illness ??? Concerns: URI ??? When did it start? For the past one week ??? Is it getting better, worse or staying the same? worsening ??? Fever? no ??? Chills/Sweats? yes ??? Headache (location?) no ??? Sinus Pressure? yes ??? Conjunctivitis? no ??? Ear Pain? yes ??? Runny nose? yes ??? Congestion? yes ??? Sore Throat? yes ??? Body ache? Yes ??? Myalgia? yes ??? Cough? dry ??? Wheeze? Yes ??? Decreased Appetite? no ??? Nausea? no ??? Vomiting? no ??? Diarrhea? no ??? Dysuria/Frequency? no ??? Fatigue/Achiness? yes ??? Sick/Strep Exposure? no ??? Therapies Tried and outcome: Cough drops The following portions of the patient's history were reviewed and updated as appropriate in the EMR:allergies, current medications and problem list on 06/22/17 REVIEW OF SYSTEMS Negative review of major organ systems apart from that noted in the HPI PHSYCIAL EXAM Temperature: 35.9 ??C Resp Rate: 16 Blood Pressure: 120/72 SpO2: 99 % Weight: 107 kg Constitutional: He is oriented to person, place, and time. He appears well- developed and well-nourished. No distress. HENT: Head: Normocephalic and atraumatic. Right Ear: Tympanic membrane, external ear and ear canal normal. Left Ear: Tympanic membrane, external ear and ear canal normal. Nose: Right sinus exhibits maxillary sinus tenderness. Right sinus exhibits no frontal sinus tenderness. Left sinus exhibits maxillary sinus tenderness. Left sinus exhibits no frontal sinus tenderness. Mouth/Throat: Posterior oropharyngeal erythema present. No oropharyngeal exudate. Cardiovascular: Normal rate, regular rhythm and normal heart sounds. No murmur heard. Pulmonary/Chest: Effort normal and breath sounds normal. No respiratory distress. He has no wheezes.He has no rales. Neurological: He is alert and oriented to person, place, and time. LABS/IMAGING No results found for this or any previous visit (from the past 24 hour(s)). ASSESSMENT AND PLAN Patient Instructions 1. Sinusitis Acute -Will treat with Augmentin for 10 days. -Cool mist vaporizer, Saline gargles, saline nasal spray, Warm packs to face and Humidifier -Flonase and Atrovent nasal spray. - fluticasone (for_FLONASE) 50 mcg/actuation nasal spray; Administer 2 sprays into each nostril daily. Dispense: 16 g; Refill: 2 - ipratropium (ATROVENT) 0.03 % nasal spray; Administer 2 sprays into each nostril 3 (three) times aday as needed for rhinitis. Dispense: 30 mL; Refill: 2 - amoxicillin-pot clavulanate (for_AUGMENTIN) 875-125 mg per tablet; Take 1 tablet by mouth 2 (two) times a day for 10 days. Dispense: 20 tablet; Refill: 0 Options for treatment and follow-up care were reviewed with the patient . Elvis Sharpet Kassieryanderic and/or guardian engaged in the decision making process and verbalized understanding of the options discussed and agreed with the final plan. Radha Milan M.D. documented in this encounter Plan of Treatment Upcoming Encounters Date Type Specialty Care Team Description 04/23/2022 Office Visit Cardiovascular Disease Blas Peck M.D. [address] [place] [phone] ([facility]) documented as of this encounter Visit Diagnoses Diagnosis Sinusitis Acute - Primary documented in this encounter Additional Health Concerns Assessment Noted Time PHQ-9 Depression Total Score: 5 12/23/2016 8:36 AM CDT documented as of this encounter Care Teams Auto Heater Mechanic Relationship Specialty Start Date End Date Franco Molina M.D. PCP - General 09/25/16 07/27/19 documented as of this encounter
--- OUTSIDE RECORDS SUMMARY | 2022-02-17 12:24 | XMS_ITS | Encounter Summary ---
:1950 Author Organization [facility] Address [address] [place] [address] Care Team Providers Name Role Phone Franco Molina M.D. Primary Care Provider Reason for Visit Reason Comments URI chest congestion, sore ribs, cough Encounter Details Date Type Department Care Team Description 07/09/2017 Office Visit Department of Family Ali, Radha Vu, Bronch itis Acute (Primary Dx); Medicine, Bradyen Walker [facility], in [address] [address] [place], [place] [phone] (Work) [phone] Social History Tobacco Use Types Packs/Day Years [...] Sign Reading Time Taken Comments Blood Pressure 110/66 07/09/2017 9:22 AM CDT Pulse 74 07/09/2017 9:22 AM CDT Temperature 36.2 ??C (97.2 ??F) 07/09/2017 9:22 AM CDT Respiratory Rate 16 07/09/2017 9:22 AM CDT Oxygen Saturation 97% 07/09/2017 9:22 AM CDT Inhaled Oxygen Concentration - - Weight 106 kg (232 lb 14.7 oz) 07/09/2017 9:22 AM CDT Height - - Body Mass Index 34.9 01/20/2017 3:46 PM CDT documented in this encounter Patient Instructions Patient InstructionsRadha Milan M.D. - 07/09/2017 9:45 AM CDT 1. Bronchitis Acute Comments:Etiology likely viral infection. Non-toxic appearing and vital signs are stable. -Patient education and reassurance provided. -Discussed etiology and expected course. -Supportive care. Encouraged to eat fruits, vegetables and drink plenty of fluids. -Discussed to use honey with lemon to help with cough. -Symptomatic treat with gargles, lozenges, and OTC analgesic as needed. --Cool mist vaporizer, Saline gargles, saline nasal spray, Warm packs to face and Humidifier -Reviewed warning signs to watch out for such as worsening SOB, fever or chest pain then will need to return to clinic for repeat evaluation. -Follow-up if not improving or worsening of symptoms. - Influenza A/B (Rapid) Nasopharynx - DX Chest AP or PA and Lateral 2 Views; Future - benzonatate (for_TESSALON) 200 mg capsule; Take 1 capsule (200 mg total) by mouth 3 (three) times a day as needed for cough for up to 7 days. Dispense: 20 capsule; Refill: 0 2. Social Isolation - Social Work - General consult (clinic); Future documented in this encounter Progress Notes Radha Milan M.D. - 07/09/2017 9:45 AM CDT [facility] [place] [place] Chief Complaint Chief Complaint Patient presents with ??? URI chest congestion, sore ribs, cough HPI HPI Chest congestion: Patient report he has been having chest congestion for the past one month. Patientwas seen on 06/22 and was treated with 10 days of antibiotic. He states he felt better initially withantibiotic. He has body ache, chills, productive cough, tired and myalgia. He states he ribs hurts when he cough sometimes. Denies any fever. Social isolation: Patient states he feels isolated and he does not have friends. He lives in Senior apartment and feels like people don't like him. He talks to himself a lot because of that. The following portions of the patient's history were reviewed and updated as appropriate in the EMR:allergies and current medications on 07/09/17 REVIEW OF SYSTEMS Negative review of major organ systems apart from that noted in the HPI PHSYCIAL EXAM Temperature: 36.2 ??C Resp Rate: 16 Blood Pressure: 110/66 SpO2: 97 % Weight: 105.7 kg Constitutional: He is oriented to person, place, and time. He appears well- developed and well-nourished. No distress. HENT: Head: Normocephalic and atraumatic. Right Ear: Tympanic membrane, external ear and ear canal normal. Left Ear: Tympanic membrane, external ear and ear canal normal. Nose: No rhinorrhea. Mouth/Throat: Oropharynx is clear and moist. No oropharyngeal exudate or posterior oropharyngeal erythema. Cardiovascular: Normal rate, regular rhythm and normal heart sounds. No murmur heard. Pulmonary/Chest: Effort normal and breath sounds normal. No respiratory distress. He has no wheezes.He has no rales. Neurological: He is alert and oriented to person, place, and time. Psychiatric: He has a normal mood and affect. His speech is normal and behavior is normal. Thought content normal. LABS/IMAGING Recent Results (from the past 24 hour(s)) Influenza A/B (Rapid) Nasopharynx Collection Time: 07/09/17 9:55 AM Result Value Influenza A, Rapid Negative Influenza B, Rapid Negative Dx Chest Ap Or Pa And Lateral 2 Views Result Date: 07/09/2017 Impression: IMPRESSION: No focal infiltrates or consolidations. Mild prominence of the lung interstitium, likely due to overlying soft tissue density. Postcardiac surgical changes. Degenerative changesof the spine. ASSESSMENT AND PLAN Patient Instructions 1. Bronchitis Acute Comments:Etiology likely viral infection. Non-toxic appearing and vital signs are stable. CXR negative for infection. Patient tested negative for rapid influenza. -Patient education and reassurance provided. -Discussed etiology and expected course. -Supportive care. Encouraged to eat fruits, vegetables and drink plenty of fluids. -Discussed to use honey with lemon to help with cough. -Symptomatic treat with gargles, lozenges, and OTC analgesic as needed. --Cool mist vaporizer, Saline gargles, saline nasal spray, Warm packs to face and Humidifier -Reviewed warning signs to watch out for such as worsening SOB, fever or chest pain then will need to return to clinic for repeat evaluation. -Follow-up if not improving or worsening of symptoms. - Influenza A/B (Rapid) Nasopharynx - DX Chest AP or PA and Lateral 2 Views; Future - benzonatate (for_TESSALON) 200 mg capsule; Take 1 capsule (200 mg total) by mouth 3 (three) times a day as needed for cough for up to 7 days. Dispense: 20 capsule; Refill: 0 2. Social Isolation - Social Work - General consult (clinic); Future Options for treatment and follow-up care were reviewed with the patient . Elvis Sharpemaria del carmen Nielsonderic and/or guardian engaged in the decision making process and verbalized understanding of the options discussed and agreed with the final plan. Radha Milan M.D. documented in this encounter Plan of Treatment Upcoming Encounters Date Type Specialty Care Team Description 04/23/2022 Office Visit Cardiovascular Disease Blas Peck M.D. [address] [place] [phone] (Wo rk) documented as of this encounter Procedures Procedure Name Priority Date/Time Associated Diagnosis Comme nts INFLUENZA A/B Routine 07/09/2017 9:55 AM Bronchitis Acute Resu lts for this (RAPID) CDT procedure are i n the results section. documented in this encounter Results DX Chest AP or PA and Lateral 2 Views (07/09/2017 10:13 AM CDT) Anatomical Region Laterality Modality Chest N/A Computed Radiography Specimen (Source) Anatomical Collection Method Collection Time Re ceived Time Location / / Volume Laterality 07/09/2017 10:23 AM CDT Impressions 07/09/2017 10:23 AM CDT IMPRESSION: No focal infiltrates or consolidations. Mild prominence of the lung interstitium, likely due to overlying so ft tissue density. Postcardiac surgical changes. Degenerative changes of the spi ne. Narrative 07/09/2017 10:23 AM CDT EXAM: DX CHEST AP OR PA AND LATERAL 2 VIEWS Procedure Note Garland Shah M.D. - 07/09/2017Form atting of this note might be different from the original. EXAM: DX CHEST AP OR PA AND LATERAL 2 EWS IMPRESSION: No focal infiltrates or cons olidations. Mild prominence of the lung interstitium, likely due to overlying so ft tissue density. Postcardiac surgical changes. Degenerative changes of the spi ne. Radha Milan M.D. IMG DIAGNOSTIC IMAGING PROCE DURES Influenza A/B (Rapid) Nasopharynx (07/09/2017 9:55 AM CDT) athologist Signature Influenza A, Negative Negative 07/09/2017 [facility] Rapid 10:13 AM CDT [facility] Influenza B, Negative Negative 07/09/2017 [facility] Rapid 10:13 AM CDT [facility] Specimen Anatomical Collection Method Collection Time Receive d Time (Source) Location / / Volume Laterality Varies 07/09/2017 9:55 AM 8 9:59 (Nasopharynx) CDT AM CDT Radha Milan M.D. LAB MICROBIOLOGY - GENERAL O RDERABLES Performing Organization Address City/State/ZIP Code Phon e Number [facility] [address] [place] [address] [facility]- [address] [place] [address] [facility] documented in this encounter Visit Diagnoses Diagnosis Bronchitis Acute - Primary Social Isolation Cough Unspecified Type documented in this encounter Additional Health Concerns Assessment Noted Time PHQ-9 Depression Total Score: 5 12/23/2016 8:36 AM CDT documented as of this encounter Care Teams Loader Relationship Specialty Start Date End Date Franco Molina M.D. PCP - General 09/25/16 07/27/19 documented as of this encounter
--- OUTSIDE RECORDS SUMMARY | 2022-02-17 12:24 | XMS_ITS | Encounter Summary ---
:1950 Author Organization [facility] Address [address] [place] [address] Care Team Providers Name Role Phone Franco Molina M.D. Primary Care Provider Reason for Visit Reason Onset Date Comments RX PRIOR AUTHORIZATION 10/19/2017 DENIAL OF JANUVIA Encounter Details Date Type Department Care Team Description 10/19/2017 Clinical [facility] Franco Molina, RX PRIOR Communication Vinnie Little M.D. AUTHORIZATION [address] (DENIAL OF JANUVIA) [facility] [address] [place] [phone] Social History Tobacco Use Types Packs/Day Years [...] this encounter Miscellaneous Notes Telephone Encounter - Silverio Denneyderic Zuñiga - 10/20/2017 9:18 AM CDT Good morning! My apologies but the prior authorization for the requested medication has already been denied as indicated below. Once a denial has been received, only the physician can appeal the decision. Most appeals can be resolved over the phone. Fortunately, the payer has an expedited appeal line to call or fax , reference# [id number] to fast track the process. The payer will need to know more information and/or what other meds the patient has tried and failedon to treat their condition in order for them to consider approving the prior auth. [facility] Prior Authorization Telephone Encounter - Estefany Mark L.P.N. - 10/19/2017 4:26 PM CDT Called and recommended patient to see endocrinology in [place]. Patient stated that he would think about it and call back. Please initiate prior auth. Telephone Encounter - Franco Molina M.D. - 10/19/2017 4:12 PM CDT Please call his insurance to get PA. Also call him about his insurance denial of Rx. I think he should see [place] [facility] at [facility] in [place] for uncontrolled diabetes mellitus type 2. Order is in EHR. Telephone Encounter - Linda Dangelo - 10/19/2017 3:45 PM CDT Images from the original note were not included. The patient???s health insurer has denied prior authorization for MARCELLUS. (SEE BELOW) Your options: 1. Appeal the decision by reaching out to the patient???s insurer directly. PLEASE FAX 2. Consider changing the patient???s medication therapy. 3. If not appealing or prescribing a different Rx, the prescription has already been released to thepharmacy so the patient has the option to pay full fiore for the item if desired. Thank you documented in this encounter Plan of Treatment Upcoming Encounters Date Type Specialty Care Team Description 04/23/2022 Office Visit Cardiovascular Disease Blas Peck M.D. [address] [place] [address] [place] [phone] (Wo rk) documented as of this encounter Visit Diagnoses Diagnosis Diabetes Mellitus Type 2 (HCC) - Primary documented in this encounter Additional Health Concerns Assessment Noted Time PHQ-9 Depression Total Score: 5 12/23/2016 8:36 AM CDT documented as of this encounter Care Teams Delivery Of Shopping News Relationship Specialty Start Date End Date Franco Molina M.D. PCP - General 09/25/16 07/27/19 documented as of this encounter
--- OUTSIDE RECORDS SUMMARY | 2022-02-17 12:24 | XMS_ITS | Encounter Summary ---
:1950 Author Organization [facility] Address [address] [place] [address] Care Team Providers Name Role Phone Franco Molina M.D. Primary Care Provider Encounter Details Date Type Department Care Team Description 11/12/2017 Clinical Communication Department of Urology Clark Dodge in [place] [address] [address] [facility] [address] [place] [phone] Social History Tobacco Use Types Packs/Day Years [...] this encounter Miscellaneous Notes Telephone Encounter - Gita Parr - 11/18/2017 3:54 PM CDT Relayed msg below, they will let provider know. Resolve. Telephone Encounter - Andrew Sheldon M.D. - 11/18/2017 3:33 PM CDT Reviewed with Dr. Dodge. If he truly has paraphimosis with acute penile pain, should be seen in local ED. However, he was also referred with acute paraphimosis earlier this year, which he did not have, so expect this is not the case. Therefore, Dr. Dodge recommended he be evaluated by urology locally in [place] next available. Telephone Encounter - Andrew Sheldon M.D. - 11/12/2017 2:43 PM CDT Will need to review with Dr. Dodge once he is back. Telephone Encounter - Gita Parr - 11/12/2017 11:[address] Molina referring patient back for Paraphimosis causing urinary flow obstruction, please place orders for return visit. Thank you. documented in this encounter Plan of Treatment Upcoming Encounters Date Type Specialty Care Team Description 04/23/2022 Office Visit Cardiovascular Disease Blas Peck M.D. [address] [place] [phone] (Wo rk) documented as of this encounter Visit Diagnoses Not on filedocumented in this encounter Additional Health Concerns Assessment Noted Time PHQ-9 Depression Total Score: 5 12/23/2016 8:36 AM CDT documented as of this encounter Care Teams Duty Manager Relationship Specialty Start Date End Date Franco Molina M.D. PCP - General 09/25/16 07/27/19 documented as of this encounter
--- OUTSIDE RECORDS SUMMARY | 2022-02-17 12:24 | XMS_ITS | Encounter Summary ---
:1950 Author Organization [facility] Address [address] [place] [address] Care Team Providers Name Role Phone Franco Molina M.D. Primary Care Provider Reason for Visit Reason Comments multiple concerns complains of bladder, lower abdominal pain, penis discomfort, soft bowel movements, sore throat , bilateral ear pain Encounter Details Date Type Department Care Team Description 10/16/2017 Office Visit Department of Franco Molina M.D . Pain Penis (Primary Dx); [facility] [address], Dys uria; Medicine in [place] [address] Overactive Bladder; [place], [place], [place] Paraphimosis; [address] [address] Lower Abdominal Pain Unspecified; [place], [place] Divertic ulosis Colon; [id number] Pain Chest; [phone] Coronary Artery Disease; Coronary Arteri al Bypass Graft Status Post Personal History; Pain Ear Bilate ral; Sore Throat; Sinusitis Acute Maxillary Social History Tobacco Use Types Packs/Day Years [...] Sign Reading Time Taken Comments Blood Pressure 121/66 10/16/2017 9:38 AM CDT Pulse 74 10/16/2017 9:38 AM CDT Temperature 36.6 ??C (97.9 ??F) 10/16/2017 9:38 AM CDT Respiratory Rate 16 10/16/2017 9:38 AM CDT Oxygen Saturation - - Inhaled Oxygen Concentration - - Weight 104 kg (228 lb 13.4 oz) 10/16/2017 9:38 AM CDT Height 174 cm (5' 8.5) 10/16/2017 9:38 AM CDT Body Mass Index 34.28 10/16/2017 9:38 AM CDT documented in this encounter Patient Instructions Patient InstructionsFranco Molina M.D. - 10/16/2017 10:00 AM CDT Most likely you have urinary obstruction caused by paraphimosis and you need to see urologist to discuss further evaluation for consideration of surgery. We will check urine test to make sure you do not have bladder infection. Please continue medications prescribed by urologist from [facility]. Please cut back fluid intake as recommended by urologist. You have maxillary sinusitis and needto take Levaquin (antibiotic). Please watch for blood sugar of level because Levaquin can cause fluctuating blood sugar. Please stop metformin because of abdominal discomfort and upset. Please continueglimepiride and start Januvia to controlled diabetes mellitus. You need to cut back calories, carbohy drates and portion of meals because your diabetes mellitus is out of control. Please make sure you have enough fiber in your diet for diverticulosis of colon. Please follow with accounting clerks supervisor for your coronary artery disease. Return to clinic as previously scheduled. documented in this encounter Progress Notes Franco Molina M.D. - 10/16/2017 10:00 AM CDT SUBJECTIVE CHIEF COMPLAINT/REASON FOR VISIT Multiple concerns. HISTORY OF PRESENT ILLNESS Elvis Dawkins is a 67 y.o. male who presents to the clinic today for multiple concerns. I last saw him on 09/01/2017. He still has lower abdominal discomfort and bladder issues. He also has penis discomfort and feels that it is related to his bowel movements. He has pain and raw feeling with urination. He does not have circumcision. He is not sexually active. His stream is variable. He lost his Oxybutynin bottle inhis apartment about one month ago. He has soft stools. He denies blood in stool. Patient notices occasional sweating in his left groin. He had three negative abdominal scans in 2016 and 2017. He saw Urology at [facility] on 05/08/2017 for urinary urgency and frequency. Urinalysis was negative. PSA was 0.85. It was recommended to decrease fluid intake, stop fluids after 6 p.m., double voiding and timed voiding, Kegel exercises, start Ditropan 10 mg, and continue Flomax. 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 He checks his blood sugar occasionally and is ranging from 65 to 326. He is on Metformin and Glimepiride. Last Thursday, he had sore throat and cough. It was painful to swallow. He had chest discomfort withcoughing episodes. It improved as the day progressed but then had recurrent symptoms that evening. His sore throat is resolved now. He has coronary artery disease with coronary artery bypass grafting x 4, hypertension, and stage 2 chronic kidney disease. He had questions about his stress test he had earlier this year. He had Sestamibi scan on 08/05/2017, which showed 1. Medium primarily fixed defect consistent with [...] no previous nuclear stress studies for comparison. ??I reviewed and updated his medication list. We discussed potential side effects. There are no additional questions, concerns, or complaints. CURRENT MEDICATIONS Current Outpatient Prescriptions Medication Sig Dispense Refill ??? aspirin 81 mg chewable tablet Chew 1 tablet daily. ??? atorvastatin (LIPITOR) 20 mg tablet Take 1 tablet (20 mg total) by mouth at bedtime. 90 tablet 3 ??? blood-glucose meter [facility] [place] Dispense glucose meter, test strips and lancets covered by the patient insurance. Test 2 times per day. ??? busPIRone (for_BUSPAR) 10 mg tablet Take 2 tablets by mouth 2 (two) times a day. ??? docusate sodium (for_COLACE) 100 mg capsule Take 100 mg by mouth daily as needed. ??? FLUoxetine (PROzac) 40 mg capsule TAKE ONE CAPSULE BY MOUTH ONCE DAILY IN THE MORNING 90 capsule3 ??? fluticasone (for_FLONASE) 50 mcg/actuation nasal spray Administer 2 sprays into each nostril daily. 16 g 2 ??? glimepiride (AMARYL) 4 mg tablet Take 2 tablets (8 mg total) by mouth daily with breakfast. 180 tablet 3 ??? ipratropium (ATROVENT) 0.03 % nasal spray Administer 2 sprays into each nostril 3 (three) times a day as needed for rhinitis. 30 mL 2 ??? lisinopril (for_PRINIVIL,ZESTRIL) 2.5 mg tablet Take [...] & call 911 25 tablet 11 ??? polyethylene glycol (for_MIRALAX) 17 gram powder [...] total) by mouth daily. 100 capsule 3 ??? linagliptin (TRADJENTA) 5 mg tablet Take 1 tablet (5 mg total) by mouth daily. 90 tablet 3 ??? oxybutynin (DITROPAN-XL) 10 mg 24 [...] 34.0 To 34.9 Adult 01/03/2016 ??? Callus [place] Foot 04/25/2016 ??? Congestion Nasal 01/03/2016 ??? Constipation 04/11/2015 ??? Coronary Artery Disease 01/03/2016 ??? Diabetes Mellitus Type 2 With Diabetic Neuropathy (HCC) 01/03/2016 ??? Diverticulosis Colon 04/25/2016 ??? Hay Fever 01/03/2016 ??? Hyperlipidemia 01/03/2016 ??? Hypertensive Heart And [...] Four colon polyps. Repeat in 3 years. [facility]. ??? COLONOSCOPY W/ POLYPECTOMY 05/11/[address]/[place]. Dr. Marito davis prep, quality poor. Repeat [...] Prostate cancer Brother OBJECTIVE VITAL SIGNS Vitals: 10/16/17 0938 BP: 121/66 Patient Position: Sitting Pulse: 74 Temp: 36.6 ??C Resp: 16 Height: 174 cm Weight: 103.8 kg TempSrc: Temporal PHYSICAL EXAMINATION General: Patient is sitting. No distress. Able to talk without interruption. Skin: No bruise or nodules. Head: No facial rash or asymmetry. He has maxillary sinus tenderness. Eyes: PERRLA. EOMI. No pallor, icterus or conjunctivitis. ENT: No nasal congestion, discharge or bleeding. There is no ear infection or discharge. No mastoid tenderness. Tongue is moist and midline. No oral lesions. Lymph nodes: No cervical, supraclavicular, inguinal or femoral lymphadenopathy. Heart: No carotid bruit. No JVD. Regular rhythm. There is no S3, gallop, murmur or thrill. Lungs: Normal respiratory effort. Clear to auscultation. Abdomen: Moves with respiration. Bowel sounds present. Soft. No rebound tenderness, guarding or rigidity. No organomegaly. Genitalia: He has paraphimosis, uncircumcised penis with foreskin. No urethral discharge. Normal testicles. No hydrocele or hernia. Extremities: No clubbing, cyanosis, edema, infection or calf tenderness. Mental: Alert and oriented x 3. Normal mood and affect. Neuro: Grossly nonfocal. ASSESSMENT / PLAN #1 Pain Penis #2 Dysuria #3 Overactive Bladder #4 Paraphimosis PLAN: He most likely has urinary obstruction caused by paraphimosis. We will refer him to Urology for consultation and possible surgery. He will take Levaquin to cover sinusitis and possible UTI. We will check UA with microscopic and urine culture today. We will change antibiotics if necessary. He needs to follow recommendations from Urology at [facility]. He will restart Oxybutynin 10 mg daily and continue Flomax 0.4 mg daily. #5 Lower Abdominal Pain Unspecified PLAN: It was decided to stop Metformin because of abdominal discomfort. He will take Januvia 100 mg daily for his diabetes mellitus type 2. He should contact me if there is no improvement or worsening of symptoms or develops side effects to new prescription medication. #6 Diverticulosis Colon PLAN: He was advised to have enough fiber in his diet. #7 Pain Chest #8 Coronary Artery Disease #9 Coronary Arterial Bypass Graft Status Post Personal History PLAN: He is stable from a cardiac standpoint. There is no angina. Patient does not need to take Nitroglycerin. Need to continue current medications and cardiovascular risk factor modification. He should follow with Cardiology in January 2018. #10 Pain Ear Bilateral #11 Sore Throat #12 Sinusitis Acute Maxillary PLAN: There was no evidence of strep or ear infection We will treat with Levaquin 500 mg daily for 10 days. He should contact me if there is no improvement or worsening of symptoms or develops side effects to new prescription medication. #13 Renew Medications PLAN: The following medications were renewed: Oxybutynin. #14 Today Studies PLAN: Patient had following studies done today: UA with culture. Patient will be notified with results & recommendations. #15 Followup Visit PLAN: Return to the clinic as previously scheduled. Administrative Billing 25 minutes of this 35 minute visit was spent in face to face counseling and coordination of care. This document serves as a record of services personally performed by Dr. Franco Molina. It was created on their behalf by Franco Molina M.D., a trained medical records tech. The creation of this record is based on the scribe's personal observations and the provider's statements to them. This document has been checked and approved by the attending provider. Franco Molina M.D. - 10/16/2017 10:00 AM CDT Please call him. UA show glucose and trace ketones, most likely related to uncontrolled diabetes mellitus type 2. There is bacteria in urine. We need to follow urine culture results. Franco Molina M.D. - 10/16/2017 10:00 AM CDT Please call him. Urine culture is negative. He needs to follow urologist for paraphimosis causing urinary obstruction. Estefany Mark L.P.N. - 10/16/2017 10:00 AM CDT Patient notified of results and Dr. Molina's recommendations. Estefany Mark L.PMichelleN. - 10/16/2017 10:00 AM CDT Patient notified of results. documented in this encounter Plan of Treatment Upcoming Encounters Date Type Specialty Care Team Description 04/23/2022 Office Visit Cardiovascular Disease Blas Peck M.D. [address] [place] [phone] (Wo rk) documented as of this encounter Procedures Procedure Name Priority Date/Time Associated Comments Diagnosis BACTERIAL CULTURE, Routine 10/16/2017 11:08 Pain Penis Results for this AEROBIC + SUSC, URINE AM CDT Dysuria procedure are in Overactive Bladder the resul ts section. URINALYSIS WITH Routine 10/16/2017 11:08 Pain Penis Results for this MICROSCOPIC AM CDT Dysuria procedure are in Overactive Bladder the resul ts section. documented in this encounter Results Bacterial Culture, Aerobic + Susc, Urine (10/16/2017 11:08 AM CDT) [facility] Method Time Signature Bacterial No growth 10/17/2017 [facility] Culture, after 1 day 10:11 AM CDT HEALTH A[facility] Specimen Anatomical Collection Method Collection Time Receive d Time (Source) Location / / Volume Laterality Urine (Urine, 10/16/2017 11:08 10/16/2017 2:20 Midstream) AM CDT PM CDT Comment: Specimen Source Site: Urine Franco Molina M.D. LAB MICROBIOLOGY - GENERAL O RDERABLES Performing Organization Address City/State/ZIP Code Phon e Number [facility] [address] [place] [address] LAB (ABNORMAL) Urinalysis with Microscopic (10/16/2017 11:08 AM CDT) P athologist Signature Source Midstream 10/16/2017 [facility] 11:11 AM [facility] Clarity Clear Clear 10/16/2017 [facility] 11:19 AM [facility] LAB Color Yellow 10/16/2017 [facility] 11:19 AM [facility] Comment: ----REFERENCE VALUE---- Colorless Yellow [place] Blood Negative Negative 10/16/2017 11:[address] [facility] [place] [facility] Nitrite Negative Negative 10/16/2017 11:[address] [facility] [place] [facility] Leukocyte Esterase Negative Negative 10/16/2017 11:19 AM [facility] Protein Negative mg/dL 10/16/2017 11:[address] [facility] [employer] B Comment: ----REFERENCE VALUE---- Negative Trace Glucose 500 (A) Negative mg/dL 10/16/2017 11:19 AM [facility] Ketones, QI(U) Trace (A) Negative mg/dL 10/16/2017 11:19 AM [facility] Bilirubin Negative Negative 10/16/2017 11:19 AM [facility] pH 5.5 5.0 - 8.0 10/16/2017 11:19 AM [facility] Specific [place] 1.015 1.001 - 1.035 10/16/2017 11:19 AM [facility] CDT SYSTEM- [place] [facility] Urobilinogen 0.2 0.2 - 1.0 mg/dL 10/16/2017 11:19 AM [facility] CDT [facility]- [place] [facility] White Blood Cells Occ-3 /hpf 10/16/2017 11:[address] [facility] CDT SYSTEM- [place] [facility] Comment: ----REFERENCE VALUE---- Males: 0-3 Females: 0-10 Unknown: 0-10 Red Blood Cells None Seen 0 - 2 /hpf 10/16/2017 11:19 AM [facility] CDT SYSTEM- [place] [facility] Bacteria Present (A) None Seen 10/16/2017 11:19 AM [facility] CDT SYSTEM- [place] [facility] Specimen Anatomical Collection Method Collection Time Receive d Time (Source) Location / / Volume Laterality Urine (Urine, 10/16/2017 11:08 10/16/2017 Clean Catch) AM CDT 11:08 AM CDT Franco Molina M.D. LAB URINE ORDERABLES Performing Organization Address City/State/ZIP Code Phon e Number [facility] [address] [place] [address] [place] [facility]- [address] [place] [address] [place] [address] [place] [facility] documented in this encounter Visit Diagnoses Diagnosis Pain Penis - Primary Dysuria Overactive Bladder Paraphimosis Lower Abdominal Pain Unspecified Diverticulosis Colon Pain Chest Coronary Artery Disease (Unspecified) Coronary Arterial Bypass Graft Status Po st Personal History Pain Ear Bilateral Sore Throat Sinusitis Acute Maxillary documented in this encounter Additional Health Concerns Assessment Noted Time PHQ-9 Depression Total Score: 5 12/23/2016 8:36 AM CDT documented as of this encounter Care Teams Emergency Room Tech Relationship Specialty Start Date End Date Franco Molina M.D. PCP - General 09/25/16 07/27/19 documented as of this encounter
--- OUTSIDE RECORDS SUMMARY | 2022-02-17 12:24 | XMS_ITS | Encounter Summary ---
:1950 Author Organization [facility] Address [address] [place] [address] Care Team Providers Name Role Phone Franco Molina M.D. Primary Care Provider Encounter Details Date Type Department Care Team Description 10/23/2017 Clinical Communication Department of [facility] Franco Molina M.D. [address], [address] [phone] Social History Tobacco Use Types [...] this encounter Miscellaneous Notes Telephone Encounter - eDbi Pérez, R.N. - 10/23/2017 2:16 PM CDT Patient returned my call and I informed him new rx sent to [facility] pharmacy. He reports that he willstart taking this and stop Metformin. Telephone Encounter - Debi Pérez, R.N. - 10/23/2017 1:56 PM CDT Message left for patient to return my call. Addendum Note - Franco Molina M.D. - 10/23/2017 1:12 PM CDT Addended by: FRANCO MOLINA on: 10/23/2017 01:12 PM Modules accepted: Orders Telephone Encounter - Franco Molina M.D. - 10/23/2017 1:10 PM CDT Please call him to take Tradjenta 5 mg by mouth daily. His insurance refused to cover Januvia. He was advised to see Urology for paraphimosis with urinary obstruction. Order is in EHR. He has notmade a consultation appointment. Telephone Encounter - Debi Pérez RMagaly - 10/23/2017 11:55 AM CDT The denial notice states that patient must first try two of the following covered medications: Onglyza and Tradjenta. Would you like the prescribe one of the alternatives for patient or do an appeal? Telephone Encounter - Franco Molina M.D. - 10/23/2017 11:18 AM CDT Please call to get PA and give the information they need. Reference# [id number] to fasttrack the process. Telephone Encounter - Vilma Moy - 10/23/2017 8:35 AM CDT Patient calling in to Dr. Molina. His medication SITagliptin that was prescribed on 10/16 was denied by insurance so patient was wondering what the next step would be. Please advise and call back at [phone] documented in this encounter Plan of Treatment Upcoming Encounters Date Type Specialty Care Team Description 04/23/2022 Office Visit Cardiovascular Disease Blas Peck M.D. [address] [place] [phone] (Wo ) documented as of this encounter Visit Diagnoses Not on filedocumented in this encounter Additional Health Concerns Assessment Noted Time PHQ-9 Depression Total Score: 5 12/23/2016 8:36 AM CDT documented as of this encounter Care Teams Food Critic Relationship Specialty Start Date End Date Franco Molina M.D. PCP - General 09/25/16 07/27/19 documented as of this encounter
--- OUTSIDE RECORDS SUMMARY | 2022-02-17 12:24 | XMS_ITS | Encounter Summary ---
:1950 Author Organization [facility] [place] [facility] Address [address] [place] [address] Care Team Providers Name Role Phone Franco Molina M.D. Primary Care Provider Reason for Visit Reason Comments Med Refill Encounter Details Date Type Department Care Team Description 08/09/2017 Refill Department of [facility] Torey Molina M.D. Med Refill Internal Medicine in [address] [place] [phone] [place] [address] Social History Tobacco [...] Visit Cardiovascular Disease Blas Peck M.D. [address] [place], [place] [phone] (Wo rk) documented as of this encounter Visit Diagnoses Not on filedocumented in this encounter Additional Health Concerns Assessment Noted Time PHQ-9 Depression Total Score: 5 12/23/2016 8:36 AM CDT documented as of this encounter Care Teams Master Motorcycle Technician Relationship Specialty Start Date End Date Franco Molina M.D. PCP - General 09/25/16 07/27/19 documented as of this encounter
--- OUTSIDE RECORDS SUMMARY | 2022-02-17 12:24 | XMS_ITS | Encounter Summary ---
:1950 Author Organization [facility] Address [address] [place] [address] Care Team Providers Name Role Phone Franco Molina M.D. Primary Care Provider Encounter Details Date Type Department Care Team Description 07/09/2017 Hospital Encounter Department of Radiology Radha Milan M.D. Cough in [facility] pratik [address] [phone] (Wo rk) Social History Tobacco Use Types [...] mouth 0 04/25/2016 (METAMUCIL ORAL) at bedtime. benzonatate Take 1 capsule (200 20 capsule 0 07/09/2017 04/0 08/2017 (for_TESSALON) 200 mg mg total) by mouth 3 capsuleIndications: (three) times a day Bronchitis Acute as needed for cough for up to 7 days. aspirin 325 mg tablet Take 325 mg by mouth 0 07/29/2017 daily. aspirin 81 mg chewable Chew 1 tablet [...] Acute glimepiride (AMARYL) 4 Take 1 tablet by [...] Visit Cardiovascular Disease Blas Peck M.D. [address] [place] [phone] (Wo rk) documented as of this encounter Procedures Procedure Name Priority Date/Time Associated Comments Diagnosis DX CHEST AP OR PA RAD - Routine 07/09/2017 10:13 Cough Resul ts for this AND LATERAL 2 (most inpatients AM CDT procedure are in VIEWS and all the [...] of the spi ne. Radha Milan M.D. [facility]MT[facility] DIAGNOSTIC IMAGING PROCE JOVANI documented in this encounter Visit Diagnoses Diagnosis Cough Unspecified Type documented in this encounter Additional Health Concerns Assessment Noted Time PHQ-9 Depression Total Score: 5 12/23/2016 8:36 AM CDT documented as of this encounter Care Teams Business Machine Mechanic Relationship Specialty Start Date End Date Franco Molina M.D. PCP - General 09/25/16 07/27/19 documented as of this encounter
--- OUTSIDE RECORDS SUMMARY | 2022-02-17 12:24 | XMS_ITS | Encounter Summary ---
:1950 Author Organization [facility] Address [address] [place] [address] Care Team Providers Name Role Phone Franco Molina M.D. Primary Care Provider Reason for Visit Reason Comments Communication Encounter Details Date Type Department Care Team Description 05/28/2017 Clinical Communication Department of Nabeel Molina M.D. Communication [facility] [phone] (Fax) [phone] Social History Tobacco Use Types Packs/Day Years [...] this encounter Miscellaneous Notes Telephone Encounter - Kailyn Pringle L.P.N. - 05/28/2017 2:27 PM FILM PROCESSING SUPERVISOR Patient notified PROCESSING SUPERVISOR Telephone Encounter - Franco Molina M.D. - 05/28/2017 1:02 PM CST Please call him. Troponin I is negative. PROCESSING SUPERVISOR documented in this encounter Plan of Treatment Upcoming Encounters Date Type Specialty Care Team Description 04/23/2022 Office Visit Cardiovascular Disease Blas Peck M.D. [address] [place] [phone] (Wo rk) documented as of this encounter Visit Diagnoses Not on filedocumented in this encounter Additional Health Concerns Assessment Noted Time PHQ-9 Depression Total Score: 5 12/23/2016 8:36 AM CDT documented as of this encounter Care Teams Life Teacher Relationship Specialty Start Date End Date Franco Molina M.D. PCP - General 09/25/16 07/27/19 documented as of this encounter
--- OUTSIDE RECORDS SUMMARY | 2022-02-17 12:24 | XMS_ITS | Encounter Summary ---
:[address] [facility] Address [address] [place] [address] Care Team Providers Name Role Phone Franco Molina M.D. Primary Care Provider Reason for Visit Reason Onset Date Comments Results 10/09/2017 Encounter Details Date Type Department Care Team Description 10/09/2017 Clinical Communication Department of [facility] Blas Peck [facility] Medicine, Brayden Manley M.D. [facility], [address] [address] [place], [place] [phone] (Work) [phone] Social History Tobacco Use Types Packs/Day Years [...] this encounter Miscellaneous Notes Telephone Encounter - Blas Peck M.D. - 10/15/2017 5:13 PM CDT I called the patient with the stress test results. Mostly infarct with minimal ischemia. Medical therapy recommended at this time. He is having issues with his bladder and will be seen by his primary provider. I have asked him to get in touch with me to schedule elective follow-up visit after bladder issues are improved. The patient expressed understanding and agreement with the plan. Thank you, Blas Peck Telephone Encounter - Rose Colon - 10/09/2017 11:19 AM CDT Patient was sent to [facility] to have some Cardiology testing done about 2 months ago and he has notreceived any results, stated Dr. Peck sent him there please call him [phone]. documented in this encounter Plan of Treatment Upcoming Encounters Date Type Specialty Care Team Description 04/23/2022 Office Visit Cardiovascular Disease Blas Peck M.D. [address] [place] [phone] (Wo rk) documented as of this encounter Visit Diagnoses Not on filedocumented in this encounter Additional Health Concerns Assessment Noted Time PHQ-9 Depression Total Score: 5 12/23/2016 8:36 AM CDT documented as of this encounter Care Teams Station Baggage Agent Relationship Specialty Start Date End Date Franco Molina M.D. PCP - General 09/25/16 07/27/19 documented as of this encounter
--- OUTSIDE RECORDS SUMMARY | 2022-02-17 12:24 | XMS_ITS | Encounter Summary ---
:1950 Author Organization [facility] Address [address] [place] [address] Care Team Providers Name Role Phone Franco Molina M.D. Primary Care Provider Encounter Details Date Type Department Care Team Description 05/29/2017 Orders Only Department of Franco Molina M.D . Congestive Heart Failure (HCC) (Primary Dx); Community Internal [address] [facility], Juanjose onary Artery Disease Medicine in [address] [address] [address] [facility] [place] [address] Social History Tobacco Use Types [...] Disease Blas Peck M.D. [address] [place], [place] [phone] (Wo rk) documented as of this encounter Results (TTE) 2D ECHO DOPPLER COLOR (06/10/2017 9:29 AM FEEDER SWITCHBOARD OPERATOR) [facility] Method Time Signature Ejection Fraction 56 MC [...] / / Volume Laterality 06/10/2017 8:49 AM FEEDER SWITCHBOARD OPERATOR Narrative 06/10/2017 2:01 PM FEEDER SWITCHBOARD OPERATOR See PDF For Result Procedure Note Blas Peck M.D. - 06/10/2017Form atting of this note might be different from the original. See PDF For Result Franco Molina M.D. CV ECHO PROCEDURES documented in this encounter Visit Diagnoses Diagnosis Congestive Heart Failure (HCC) - Primary Coronary Artery Disease (Unspecified) Congestive Heart Failure (HCC) Coronary Artery Disease (Unspecified) documented in this encounter Additional Health Concerns Assessment Noted Time PHQ-9 Depression Total Score: 5 12/23/2016 8:36 AM CDT documented as of this encounter Care Teams Catalyst Operator Gasoline Relationship Specialty Start Date End Date Franco Molina M.D. PCP - General 09/25/16 07/27/19 documented as of this encounter
--- OUTSIDE RECORDS SUMMARY | 2022-02-17 12:24 | XMS_ITS | Encounter Summary ---
:1950 Author Organization [facility] Address [address] [place] [address] Care Team Providers Name Role Phone Franco Molina M.D. Primary Care Provider Reason for Visit Reason Comments Communication Encounter Details Date Type Department Care Team Description 08/03/2017 Clinical Communication Department of [facility] Franco Molina M.D. Communication Medicine[address] [place], [place] [address] [phone] (Fax) [phone] Social History Tobacco Use Types Packs/Day Years [...] this encounter Miscellaneous Notes Telephone Encounter - Carmen Meek L.PMagaly - 08/05/2017 1:08 PM CDT Spoke with [facility] - nothing needed at this time. Patient has face to face visit with on 08/25/17. Telephone Encounter - Carmen Meek L.P.N. - 08/04/2017 11:56 AM CDT Spoke to Kam with [facility]. No information is in their computer system yet. Not sure who is referring patient for home care services. Elissa who sent this message is out until tomorrow. Message will be given to Elissa and or Charity to return call. Telephone Encounter - Armando Coleman M.D. - 08/04/2017 10:47 AM CDT I will not be doing this. Telephone Encounter - Carmen Meek L.P.N. - 08/04/2017 10:08 AM CDT Returned call to [facility]. Needs H&P /last visit notes along with updated med sheet. Please place orders as requested along with Dx related to the needs . Fax back to [phone]. Address it to Intake. Telephone Encounter - Kailyn Pringle L.P.N. - 08/03/2017 5:02 PM CDT Left a message for patient to return our call. Telephone Encounter - Toshia Santizo - 08/03/2017 3:10 PM CDT Chilo from [employer] calling for patients notes, med list and a order for home care for med management and diabetic teaching. Chilo states that [facility] called [facility] to do the home care. Please call for further if needed. documented in this encounter Plan of Treatment Upcoming Encounters Date Type Specialty Care Team Description 04/23/2022 Office Visit Cardiovascular Disease Blas Peck M.D. [address] [place] [address] [place] [phone] (Wo rk) documented as of this encounter Visit Diagnoses Not on filedocumented in this encounter Additional Health Concerns Assessment Noted Time PHQ-9 Depression Total Score: 5 12/23/2016 8:36 AM CDT documented as of this encounter Care Teams Knitter Hand Relationship Specialty Start Date End Date Franco Molina M.D. PCP - General 09/25/16 07/27/19 documented as of this encounter
--- OUTSIDE RECORDS SUMMARY | 2022-02-17 12:24 | XMS_ITS | Encounter Summary ---
:1950 Author Organization [facility] Address [address] [place] [address] Care Team Providers Name Role Phone Franco Molina M.D. Primary Care Provider Reason for Referral Outpatient (Routine) - Closed Specialty Diagnoses / Procedures Referred By Contact Refer red To Contact [facility] Internal Franco Molina M.D. [facility] Medicine [address], [place] [address] [place] [address] Referral ID Status Reason Start Date Expiration Date Visits Requ ested Visits Authorized [id number] Closed 09/01/2017 02/28/2018 1 1 Scheduling Instructions Three month follow up. Need blood tests before appt Reason for Visit Reason Comments Follow-up 3 month follow-up from 05/28 Outpatient (Routine) - Closed Specialty Diagnoses / Procedures Referred By Contact Refer red To Contact [facility] Internal Franco Molina M.D. [facility] Medicine [address], [address] [place] [address] Referral ID Status Reason Start Date Expiration Date Visits Requ ested Visits Authorized [id number] Closed 05/28/2017 11/24/2017 1 1 Encounter Details Date Type Department Care Team Description 09/01/2017 Office Visit Department of Franco Molina M.D . 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 Hyperglycemic (HCC) (Primary Dx); [facility] Internal [address], I[place] itable Bowel Syndrome With Constipation; Medicine in [place] [address] Overactive Bladder; [facility] [place] Hypertensive Heart And Chron ic Kidney Disease Without Heart Failure And With Stage 2 (Mild) Chronic Kidney Disease; [address] [address] Coronary Artery Disease; MARQUEZ MENDOSA Hyperlip idemia; [phone] High Risk Medication [phone] Social History Tobacco Use Types Packs/Day Years [...] Sign Reading Time Taken Comments Blood Pressure 123/67 09/01/2017 10:01 AM CDT Pulse 61 09/01/2017 10:01 AM CDT Temperature - - Respiratory Rate 16 09/01/2017 10:01 AM CDT Oxygen Saturation - - Inhaled Oxygen Concentration - - Weight 103 kg (227 lb 15.3 oz) 09/01/2017 10:01 AM CDT Height 174 cm (5' 8.5) 09/01/2017 10:01 AM CDT Body Mass Index 34.15 09/01/2017 10:01 AM CDT documented in this encounter Progress Notes Franco Molina M.D. - 09/01/2017 10:00 AM CDT SUBJECTIVE CHIEF COMPLAINT/REASON FOR VISIT 1. Followup on chronic medical problems. 2. Discuss test results. HISTORY OF PRESENT ILLNESS Elvis Dawkins is a 67 y.o. male who presents to the clinic today for a three month followup from 05/28/2017. I reviewed interval history. He had echocardiogram on 06/10/2017: 1. Normal left ventricular chamber size and [...] Side by side comparison of images performed. He had cardiology consultation with Dr. Blas Peck on 07/29/2017 for coronary artery disease. Because of chest discomfort and dyspnea on exertion, stress test was ordered in [facility]. His Sestamibi scan on 08/05/2017 showed 1. Medium primarily fixed defect consistent [...] no previous nuclear stress studies for comparison. Patient has not heard back from cardiology regarding the above results. He agreed to schedule appointment with billing services manager. He denies any current chest pain. He continues to have shortness of breath with activities. He went on vacation last week and had soft, mushy bowel movements four times a day after eating lettuce. This is improved now and is back to his bowel movement baseline. He notices cloudy and yellow colored urine. We discussed test results from 08/21/2017. Results were remarkable for normal CBC and electrolytes, glucose 143, hemoglobin A1c 8.0, cholesterol 109, triglycerides 74, HDL 40, LDL 54, TSH 2.0, and normal urine albumin/creatinine ratio. He has diabetes mellitus type 2 with neuropathy. There is slight increase in hemoglobin A1c. He doesnot check his blood sugar regularly. He takes medication regularly. I reviewed and updated his medication list. We discussed potential side effects. There are no additional questions, concerns, or complaints. CURRENT MEDICATIONS Current Outpatient Prescriptions Medication Sig Dispense Refill ??? aspirin 81 mg chewable tablet Chew 1 tablet daily. ??? atorvastatin (LIPITOR) 20 mg tablet Take 1 tablet (20 mg total) by mouth at bedtime. 90 tablet 3 ??? blood-glucose meter [facility] Dispense glucose meter, test strips and lancets [...] mouth every morning. 90 tablet 3 ??? metFORMIN (for_GLUMETZA) 500 mg 24 hr tablet Take 2 tablets (1,000 mg total) by mouth 2 (two) times a day with meals. 360 tablet 3 ??? metoprolol tartrate (for_LOPRESSOR) 25 mg tablet Take 1 tablet (25 mg total) by mouth 2 (two) times a day. 180 tablet 3 ??? nitroglycerin (NITROSTAT) 0.[address] 1 tablet (0.4 mg total) under the tongue every 5 (five) minutes as needed for chest pain. Up to 3 doses & call 911 25 tablet 11 ??? oxybutynin (for_DITROPAN-XL) 10 mg 24 hr [...] otherwise rest of review of systems negative. PAST MEDICAL/SURGICAL HISTORY Past Medical History: Diagnosis Date ??? Anxiety 01/03/2016 ??? Apnea Sleep Obstructive 08/28/2016 ??? Benign Prostatic Hyperplasia Hypertrophy With Obstruction 01/03/2016 ??? Body Mass Index 34.0 To 34.9 Adult 01/03/2016 ??? Callus [place] Foot 04/25/2016 ??? Congestion Nasal 01/03/2016 ??? [...] Panic Disorder Episodic Paroxysmal Anxiety 01/03/2016 ??? Polyp Colon Adenomatous 02/05/2016 ??? Primary Osteoarthritis Hip Bilateral 08/29/2016 ??? Primary Osteoarthritis Knee Bilateral 12/23/2016 ??? Retention Urinary Chronic 02/14/2016 ??? Rhinitis Allergic 01/03/2016 ??? Spasm Bladder 03/26/2016 ??? Urgency Urinary 05/28/2017 Past Surgical History: Procedure Laterality Date ??? CHOLECYSTECTOMY ??? COLONOSCOPY 07/27/2015 For colon polyps. Repeat in 3 years. [facility]. ??? COLONOSCOPY 05/11/[address]/[place]. Dr. Marito davis prep, quality poor. [...] Prostate cancer Brother OBJECTIVE VITAL SIGNS Vitals: 09/01/17 1001 BP: 123/67 Patient Position: Sitting Pulse: 61 Resp: 16 Height: 174 cm Weight: 103.4 kg PHYSICAL EXAMINATION GENERAL: Patient is sitting. No distress. Able to talk without interruption. HEAD: No facial rash, asymmetry or sinus tenderness. EXTREMITIES: No clubbing, cyanosis, edema, infection or calf tenderness. MENTAL: Alert and oriented x 3. Normal mood and affect. DIAGNOSTICS LABORATORY: 08/21/2017 07:45 08/21/2017 08:23 Hemoglobin 14.3 Hematocrit 41.8 Erythrocytes 4.83 MCV 86.5 RBC Distrib Width 14.0 Platelet Count 238 Leukocytes 6.2 Sodium, S 136 Potassium, S 5.0 Chloride, S 95 (L) Bicarbonate, S 27 Anion Gap 14 Bld Urea Nitrog(BUN), S 14 Creatinine, S 0.99 eGFR-Non Black 79 eGFR-Black >90 Calcium, Total 9.9 Glucose, S 143 (H) Bilirubin, Total, S 0.6 Bilirubin, Direct, S 0.2 Alanine Aminotransferase (ALT), S 14 Aspartate Aminotransferase (AST), S 19 Alkaline Phosphatase, S 111 Protein, Total, S 7.1 Albumin, S 4.4 Creatine Kinase (CK), S 241 Cholesterol, Total, S 109 Cholesterol, HDL, S 40 Calculated LDL 54 Triglycerides, S 74 Non HDL Cholesterol 69 TSH, Sensitive, S 2.0 Hemoglobin A1c, B 8.0 (H) Microalbumin <7.0 Creatinine 82 Albumin/Creatinine Ratio <9 ASSESSMENT / PLAN #1 Diabetes Mellitus Type 2 With Diabetic Neuropathy Hyperglycemic (HCC) It is not controlled. Hemoglobin A1c was 8.0% on 08/21/2017. We will increase Glimepiride to 8 mg daily in the morning with breakfast. Patient was advised to continue current [employer] diet, regular exercise, and other medication. Need to monitor blood sugar regularly. Self-management goals of diabetes mellitus were reviewed. Need to check hemoglobin A1c again in 3 months. #2 Irritable Bowel Syndrome With Constipation He should continue MiraLAX daily, Metamucil twice a day, and Colace as needed. #3 Overactive Bladder It is unchanged. He needs to follow urologists' recommendations. He will continue Ditropan 10 mg daily as needed and Flomax 0.4 mg daily. 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 Patient is stable from a cardiac standpoint. Need to continue sodium controlled diet and current medication. Monitor blood pressure regularly at home. Blood pressure goal is less than 140/90 mmHg. Need to continue cardiovascular risk factors modification. #5 Coronary Artery Disease He had stress test at [facility]. He was advised to contact cardiology for followup appointment and discussion of results. There is no current chest pain. Patient does not need to take Nitroglycerin. Prescription was refilled today. Need to continue current medications and cardiovascular risk factor modification. #6 Hyperlipidemia It is controlled. Fasting lipid profile was done on 08/21/2017. Total cholesterol 109, , HDL 40, LDL 54. There are no side effects from Atorvastatin. Patient was advised to continue lowcholesterol, low fat diet, regular exercise, and current medication. Need to check fasting lipid profile again in 1 year. #7 Renew Medications The following medications were renewed: Nitroglycerin. #8 Discussed Test Results I reviewed test results from 08/21/2017. All questions were answered. #9 Followup Visit Return to the clinic in 3 months for followup with following tests prior to appointment: ALT, AST, BMP, CK, and Hemoglobin A1c. This document serves as a record of services personally performed by Dr. Franco Molina. It was created on their behalf by Balaji Larios, a trained medical records supervisor. The creation of this record is based on the scribe's personal observations and the provider's statements to them. This document has been checked and approved by the attending provider. documented in this encounter Plan of Treatment Upcoming Encounters Date Type Specialty Care Team Description 04/23/2022 Office Visit Cardiovascular Disease Blas Peck M.D. [address] [place] [address] [place] [phone] (Wo rk) Scheduled Referrals Name Type Priority Associated Diagnoses Order S [facility] Internal Outpatient Referral Routine Ex pected: Medicine office 12/02/2017 visit (clinic) (Approximate) , Expires: 09/01/2020 documented as of this encounter Results (ABNORMAL) Hemoglobin A1c (12/10/2017 2:08 PM CDT) athologist Signature Hemoglobin A1c, 8.2 (H) 4.2 - 5.6 12/10/2017 [facility] B % 3:54 PM CDT [facility] LAB Comment: Hemoglobin A1c values greater [...] Organization Address City/State/ZIP Code Phon e Number [facility] [address] [place] [address] LAB CK (Creatine Kinase) (12/10/2017 2:08 PM CDT) athologist Signature Creatine Kinase 250 39 - 308 12/10/2017 [facility] (CK), S U/L 9:22 PM CDT [facility] LAB Specimen Anatomical Collection Method Collection Time Receive d Time (Source) Location / / Volume Laterality Blood (Blood, 12/10/2017 2:08 PM 12/11/19 18 9:05 Venous) CDT PM CDT Phunt Phyo M.D. LAB BLOOD ADD-ON Performing Organization Address City/[facility]/ZIP Code Phon e Number [facility] [address] [place] [address] [place] [facility] ALT (Alanine Aminotransferase) (12/10/2017 2:08 PM CDT) [facility] Method Time Signature Alanine 14 7 - 55 12/10/2017 [facility] Aminotransferase U/L 6:14 PM CDT [employer] (ALT), [employer] LAB Specimen Anatomical Collection Method Collection Time Receive d Time (Source) Location / / Volume Laterality Blood (Blood, 12/10/2017 2:08 PM 12/11/19 18 5:54 Venous) CDT PM CDT Franco Molina M.D. LAB BLOOD ADD-ON Performing Organization Address City/[facility]/ZIP Code Phon e Number [facility] [address] [place] [id number] LAB AST (Aspartate Aminotransferase) (12/10/2017 2:08 PM CDT) [facility] Method Time Signature Aspartate 21 8 - 48 12/10/2017 [facility] Aminotransferase U/L 6:14 PM CDT [facility] (AST), [facility] [employer] LAB Specimen Anatomical Collection Method Collection Time Receive d Time (Source) Location / / Volume Laterality Blood (Blood, 12/10/2017 2:08 PM 12/11/19 18 5:54 Venous) CDT PM CDT Franco Molina M.D. LAB BLOOD ADD-ON Performing Organization Address City/State/ZIP Code Phon e Number [facility] [address] [place] [id number] LAB (ABNORMAL) Basic Metabolic Panel (12/10/2017 2:08 PM CDT) athologist Signature Potassium, S 4.6 3.6 - 5.2 12/10/2017 [facility] mmol/L 6:14 PM CDT [facility] Sodium, S 133 (L) 135 - 145 12/10/2017 [facility] mmol/L 6:14 PM CDT [facility] Chloride, S 96 (L) 98 - 107 12/10/2017 [facility] mmol/L 6:14 PM CDT [facility] Bicarbonate, S 27 22 - 29 12/10/2017 [facility] mmol/L 6:14 PM CDT [facility] Anion Gap 10 7 - 15 12/10/2017 [facility] 6:14 PM [facility] BUN (Blood Urea 13 8 - 24 12/10/2017 [facility] Nitrogen), S mg/dL 6:14 PM T [facility] [employer] LAB Creatinine 1.06 0.74 - 12/10/2017 [facility] 1.35 mg/dL 6:14 PM [facility]- [employer] LAB eGFR-Non 73 >=60 12/10/2017 [facility] Black/ mL/min/BSA 6:14 PM [facility] [place] [facility] Comment: ----ADDITIONAL INFORMATION---- Estimated GFR calculated using the 2009 CKD_EPI creatinine equation. eGFR-Black/ 84 >=60 mL/min/BSA 2017 6:14 PM [facility] Comment: ----ADDITIONAL INFORMATION---- Estimated GFR calculated using the 2009 CKD_EPI creatinine equation. Calcium, Total, S 9.5 8.8 - 10.2 mg/dL 12/10/2017 6:14 PM [facility] [employer] LAB Glucose, S 227 (H) 70 - 140 mg/dL 12/10/2017 6:14 PM [facility] [employer] LAB Specimen Anatomical Collection Method Collection Time Receive d Time (Source) Location / / Volume Laterality Blood (Blood, 12/10/2017 2:08 PM 12/11/19 18 5:54 Venous) CDT PM CDT Franco Molina M.D. LAB BLOOD ADD-ON Performing Organization Address City/State/ZIP Code Phon e Number [facility] [address] [place] [address] LAB documented in this encounter Visit Diagnoses Diagnosis 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 Hyperglycemic (HCC) - Primary Irritable Bowel Syndrome With Constipati on Overactive Bladder Hypertensive Heart And Chronic Kidney Di sease Without Heart Failure And With Stage 2 (Mild) Chronic Kidney Disease Coronary Artery Disease (Unspecified) Hyperlipidemia High Risk Medication documented in this encounter Additional Health Concerns Assessment Noted Time PHQ-9 Depression Total Score: 5 12/23/2016 8:36 AM CDT documented as of this encounter Care Teams Metal Numerical Tool Programmer Relationship Specialty Start Date End Date Franco Molina M.D. PCP - General 09/25/16 07/27/19 documented as of this encounter
--- OUTSIDE RECORDS SUMMARY | 2022-02-17 12:24 | XMS_ITS | Encounter Summary ---
:1950 Author Organization [facility] Address [address] [place] [address] Care Team Providers Name Role Phone Franco Molina M.D. Primary Care Provider Encounter Details Date Type Department Care Team Description 08/05/2017 Hospital Encounter HX RST CV [facility] Dominic Argueta M.D., M.B.A. [address] [place], [place] [phone] (Wo rk) Social History Tobacco Use Types [...] Team Description 04/23/2022 Office Visit Cardiovascular Disease Jenelle Wilkins M.D. [address] [facility] MARQUEZ Owen [phone] (Wo rk) documented as of this encounter Procedures Procedure Name Priority Date/Time Associated Diagnosis Comme nts NM CARDIAC Routine 08/05/2017 3:27 PM Results f or this PERFUSION REST AND CDT procedure are in STRESS SPECT the results section. EXERCISE ECG Routine 08/05/2017 1:00 PM CDT SESTAMIBI SCAN Routine 08/05/2017 12:43 PM CDT documented in this encounter Results NM Cardiac Perfusion Rest and Stress SPECT (08/05/2017 3:27 PM CDT) Specimen (Source) Anatomical Collection Method Collection Time Re ceived Time Location / / Volume Laterality 08/05/2017 3:27 PM CDT Impressions HX [place] CONVERSION - 08/05/2017 3:5 9 PM CDT (Please note: Additional images are available in Synthesis) 1. 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 ?The inferolateral defect has mild associated ischemia. ?The area of infarction is quantita eloisa at 14% of the myocardium. ? 2. LV size is normal. ?LVEF is quantitated at 68% at rest . ?Septal wall motion is paradoxical, consistent with post-operative status. ? 3. Limited exercise workload of 5.2 alexandra erika (see separate O2 consumption report for details) ? 4. There are no previous nuclear stress studies for comparison. STUDY: NC Sestamibi S/R-O2 consumpt INDICATIONS: Primary Reason for Study: A ssessment of revascularization; ??Secondary Reason for Study: Diagnosis of dyspnea; ?? STRESS INFORMATION: Treadmill Protocol: O2 Consumption; METS: 5.23; %FAC: 53.77; Injection Time: ??04:18; Total Exercise Time: 05:14; Total Recovery Time: 09:59; ?? SYMPTOMS: Primary Reason for Stopping St udy: Dyspnea; ?? ECG: Stress ECG Interpretation: Negative for ischemia; Magnitude of ST segment Depression: < 1mm; Configuration of ST Segment: Horizontal; ?? PATIENT EDUCATION: Instructions for unde rgoing test were given: ; Patient verbalized and demonstrated understanding.; Education Time in minutes: 5; ?? MONITORING PERSONNEL: Primary Monitor: W olamidecox Suzy ? Geodetic Computator: Vicente Dangelo REFERRING PHYSICIAN: JENELLE WILKINS INTERPRETING PHYSICIAN: Figueroa Vora/Vicente Angulo ?? Electronically signed by: ?? Analilia Vora MD. ??[phone] 05-Aug-2017 15 :59 Narrative HX DINORAH CONVERSION - 08/05/2017 3:5 9 PM CDT 05-Aug-2017 15:27:00 ??Exam: NC Sestamibi S/R-O2 consumpt Indications: Coronary Artery Disease (CA D) NOS ORIGINAL REPORT - 05-Aug-2017 15:59:00 SPECT Sestamibi Stress (Exercise) and Re st: FINAL Procedure Note Figueroa Vora M.D. - 08/10/2017Format ting of this note might be different from the original. 05-Aug-2017 15:27:00 Exam: NC Sestamibi S/R-O2 consumpt Indications: Coronary Artery Disease (CA D) NOS ORIGINAL REPORT - 05-Aug-2017 15:59:00 SPECT Sestamibi Stress (Exercise) and Re st: FINAL IMPRESSION: (Please note: Addition al images are available in Synthesis) 1. 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 The inferolateral defect has mild assoc iated ischemia. The area of infarction is quantitated a t 14% of the myocardium. 2. LV size is normal. LVEF is quantitated at 68% at rest. Septal wall motion is paradoxical, cons istent with post-operative status. 3. Limited exercise workload of 5.2 alexandra erika (see separate O2 consumption report for details) 4. There are no previous nuclear stress studies for comparison. STUDY: NC Sestamibi S/R-O2 consumpt INDICATIONS: Primary Reason for Study: A ssessment of revascularization; Secondary Reason for Study: Diagnosis of dyspnea; STRESS INFORMATION: Treadmill Protocol: O2 Consumption; METS: 5.23; %FAC: 53.77; Injection Time: 04:18; Total Exercise Time: 05:14; Total Recovery Time: 09:59; SYMPTOMS: Primary Reason for Stopping St udy: Dyspnea; ECG: Stress ECG Interpretation: Negative for ischemia; Magnitude of ST segment Depression: < 1mm; Configuration of ST Segment: Horizontal; PATIENT EDUCATION: Instructions for unde rgoing test were given: ; Patient verbalized and demonstrated understanding.; Education Time in minutes: 5; MONITORING PERSONNEL: Primary Monitor: Suzy Alfredo Geodetic Computator: Vicente Dangelo REFERRING PHYSICIAN: JENELLE WILKINS INTERPRETING PHYSICIAN: Figueroa Vora/Vicente Angulo Electronically signed by: Analilia Vora MD. [phone] 05-Aug-2017 15:5 9 Jenelle Wilkins M.D. IMG NM PROCEDURES Performing Organization Address City/State/ZIP Code Phon e Number [place]X [place] CONVERSION Exercise ECG (08/05/2017 1:00 PM CDT) Specimen (Source) Anatomical Collection Method Collection Time Re ceived Time Location / / Volume Laterality 08/05/2017 1:00 PM CDT Jenelle Wilkins M.D. CV STRESS PROCEDURES Performing Organization Address City/[facility]/ZIP Code Phon e Number [facility]X [place] CONVERSION Sestamibi Scan (08/05/2017 12:43 PM CDT) Anatomical Region Laterality Modality Other Specimen (Source) Anatomical Collection Method Collection Time Re ceived Time Location / / Volume Laterality 08/05/2017 12:43 PM CDT Historical Provider CV CARDIAC CATH PROCEDURES documented in this encounter Visit Diagnoses Not on filedocumented in this encounter Additional Health Concerns Assessment Noted Time PHQ-9 Depression Total Score: 5 12/23/2016 8:36 AM CDT documented as of this encounter Care Teams Form Builder Helper Relationship Specialty Start Date End Date Franco Molina M.D. PCP - General 09/25/16 07/27/19 documented as of this encounter
--- OUTSIDE RECORDS SUMMARY | 2022-02-17 12:24 | XMS_ITS | Encounter Summary ---
:1950 Author Organization [facility] Address [address] [place] [address] Care Team Providers Name Role Phone Franco Molina M.D. Primary Care Provider Reason for Visit Reason Comments Med Refill Encounter Details Date Type Department Care Team Description 07/10/2017 Refill Department of [facility] Franco Molina M.D. Med Refill Medicine, [facility], [place] 15 [phone] [facility] [address] [place] [address] [address] [place] [address] [facility] [phone] Social History Tobacco Use Types Packs/Day Years [...] Visit Cardiovascular Disease Blas Peck M.D. [address] [place] [phone] (Wo rk) documented as of this encounter Visit Diagnoses Not on filedocumented in this encounter Additional Health Concerns Assessment Noted Time PHQ-9 Depression Total Score: 5 12/23/2016 8:36 AM CDT documented as of this encounter Care Teams Roll Out Manager Relationship Specialty Start Date End Date Franco Molina M.D. PCP - General 09/25/16 07/27/19 documented as of this encounter
--- OUTSIDE RECORDS SUMMARY | 2022-02-17 12:24 | XMS_ITS | Encounter Summary ---
:1950 Author Organization [facility] Address [address] [place] [address] Care Team Providers Name Role Phone Franco Molina M.D. Primary Care Provider Reason for Visit Reason Comments Med Refill Encounter Details Date Type Department Care Team Description 08/21/2017 Refill Department of [facility] Torey Molina M.D. Med Refill Internal Medicine in [address] [place] [phone] [facility] [address] Social History Tobacco Use [...] Visit Cardiovascular Disease Blas Peck M.D. [address] [place], [place] [phone] (Wo rk) documented as of this encounter Visit Diagnoses Not on filedocumented in this encounter Additional Health Concerns Assessment Noted Time PHQ-9 Depression Total Score: 5 12/23/2016 8:36 AM CDT documented as of this encounter Care Teams First Line Production Supervisor Relationship Specialty Start Date End Date Franco Molina M.D. PCP - General 09/25/16 07/27/19 documented as of this encounter
--- OUTSIDE RECORDS SUMMARY | 2022-02-17 12:24 | XMS_ITS | Encounter Summary ---
:1950 Author Organization [facility] Address [address] [place] [address] Care Team Providers Name Role Phone Franco Molina M.D. Primary Care Provider Reason for Visit Reason Comments Med Refill Encounter Details Date Type Department Care Team Description 09/08/2017 Refill Department of [facility] Torey Molina M.D. Med Refill Internal Medicine in [address] [place] [phone] [facility] [place] [address] Social History Tobacco Use [...] Cardiovascular Disease Blas Peck M.D. [address] [place], [place] [phone] (Wo rk) documented as of this encounter Visit Diagnoses Not on filedocumented in this encounter Additional Health Concerns Assessment Noted Time PHQ-9 Depression Total Score: 5 12/23/2016 8:36 AM CDT documented as of this encounter Care Teams Pediatric Medical Assistant Relationship Specialty Start Date End Date Franco Molina M.D. PCP - General 09/25/16 07/27/19 documented as of this encounter
--- OUTSIDE RECORDS SUMMARY | 2022-02-17 12:25 | XMS_ITS | Encounter Summary ---
:1950 Author Organization [facility] Address [address] [place] [address] Care Team Providers Name Role Phone Franco Molina M.D. 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 tablet blood-glucose meter [facility] Dispense glucose 0 05/2308/11/2018 meter, test strips and lancets covered by the patient insurance. Test 2 times per day. busPIRone (for_BUSPAR) Take 2 tablets by 0 201601/18/2018 10 mg tablet mouth 2 (two) times a day. FLUoxetine (for_PROzac) Take 1 capsule by 0 [...] day as needed. lisinopril Take 1 tablet by 0 04/10/2016 04/20/19 18 (for_PRINIVIL,ZESTRIL) mouth every morning. 2.5 mg tablet metFORMIN (for_GLUMETZA) Take 2 tablets by 0 10/1102/23/2017 500 mg 24 hr tablet mouth daily with dinner. metoprolol tartrate Take 1 tablet by 0 06/12/2016 06/18/2017 (for_LOPRESSOR) 25 mg mouth 2 (two) times a tablet day. nitroglycerin Place 1 tablet under 0 09/13/2016 0 09/01/2017 (NITROSTAT) 0.4 mg SL the tongue every 5 tablet (five) minutes as needed. Up to 3 doses & call [address] under the 0 09/13/20162019 (NITROSTAT) 0.4 mg SL tongue. tablet raNITIdine (for_ZANTAC) Take 1 tablet by 0 201609/08/2017 150 mg tablet mouth 2 (two) times a day. tamsulosin (for_FLOMAX) Take 1 capsule by 0 06/2302/23/2017 0.4 mg 24 hr capsule mouth daily. documented as of this encounter Progress Notes Ally Guzman L.P.Anca. - 02/19/2017 11:59 PM CST Left a message to please schedule an appointment to follow up on labs. OGRAPHIC PLATEMAKER documented in this encounter Plan of Treatment Upcoming Encounters Date Type Specialty Care Team Description 04/23/2022 Office Visit Cardiovascular Disease Blas Peck M.D. [address] [facility], [place] [phone] (Wo rk) documented as of this encounter Procedures Procedure Name Priority Date/Time Associated Diagnosis Comme nts HEPATIC FUNCTION Routine 02/19/2017 8:58 Other Steerer Curre nt Results for this PANEL, S AM PHOTOGRAPHIC PLATEMAKER Drug Therapy procedure are i n the results section. CBC WITH Routine 02/19/2017 8:58 Atherosclerotic Heart Res ults for this DIFFERENTIAL, B AM PHOTOGRAPHIC PLATEMAKER Disease Of The [place] procedu re are in Coronary Artery Without the results Angina Pectoris section. HEMOGLOBIN A1C, B Routine 02/19/2017 8:58 Diabetes Mellitus Ty pe Results for this AM PHOTOGRAPHIC PLATEMAKER 2 Hyperglycemia (HCC) proced ure are in the results section. CREATINE KINASE Routine 02/19/2017 8:58 Other Steerer Curren t Results for this (CK), S AM PHOTOGRAPHIC PLATEMAKER Drug Therapy procedure are i n the results section. BASIC METABOLIC Routine 02/19/2017 8:58 Diabetes Mellitus Type Results for this PANEL, S/P AM PHOTOGRAPHIC PLATEMAKER 2 With Diabetic procedure ar e in Neuropathy (HCC) the results section. documented in this encounter Results Hepatic Function Panel (02/19/2017 8:58 AM PHOTOGRAPHIC PLATEMAKER) [facility] gist Method Time Signature Bilirubin, Total, S 0.5 <=1.2 02/19/2017 [facility] mg/dL 12:46 PM [facility] [place] Bilirubin, Direct, S <0.2 0.0 - 0.3 02/19/2017 [facility] PATY mg/dL 12:46 PM [facility] Aspartate 21 8 - 48 02/19/2017 [facility] Aminotransferase U/L 12:46 PM PHOTOGR[facility]IC PLAT[facility]AKER [facility] (AST), [facility] Alanine 16 7 - 55 02/19/2017 [facility] Aminotransferase U/L 12:46 PM [facility] (ALT), [facility] Alkaline 113 45 - 115 02/19/2017 [facility] Phosphatase, S U/L 12:46 PM [facility] Albumin, S 4.5 3.5 - 5.0 02/19/2017 [facility] g/dL 12:46 PM [facility] Protein, Total, S 6.9 6.3 - 7.9 02/19/2017 [facility] g/dL 12:46 PM [facility] Specimen Anatomical Collection Method Collection Time Receive d Time (Source) Location / / Volume Laterality Blood 02/19/2017 8:58 AM 7 PHOTOGRAPHIC PLATEMAKER 11:08 AM PHOTOGRAPHIC PLATEMAKER Franco Molina M.D. LAB BLOOD ADD-ON Performing Organization Address City/[facility]/ZIP Code Phon e Number [facility] [employer] [address] [place] [id number] LAB (ABNORMAL) Hemoglobin A1c (02/19/2017 8:58 AM PHOTOGRAPHIC PLATEMAKER) P athologist Signature Hemoglobin A1c, 8.7 (H) 4.2 - 5.6 02/19/2017 [facility] B % 1:01 PM [facility] Comment: Hemoglobin A1c values greater than or eq ual to 6.5 percent are diagnostic for diabetes mellitus. ?? Diagnosis should be confirmed by repeat testing. ??In diabet ic patients, HbA1c goals should be discussed with healthcar e provider. Specimen Anatomical Collection Method Collection Time Receive d Time (Source) Location / / Volume Laterality Blood 02/19/2017 8:58 AM 7 PHOTOGRAPHIC PLATEMAKER 11:09 AM PHOTOGRAPHIC PLATEMAKER Franco Molina M.D. LAB BLOOD ADD-ON Performing Organization Address City/[facility]/ZIP Code Phon e Number [facility] [employer] [address] [place] [address] LAB CK (Creatine Kinase) (02/19/2017 8:58 AM PHOTOGRAPHIC PLATEMAKER) P athologist Signature Creatine Kinase 205 52 - 336 02/19/2017 [facility] (CK), S U/L 9:35 PM [facility] Specimen Anatomical Collection Method Collection Time Receive d Time (Source) Location / / Volume Laterality Blood 02/19/2017 8:58 AM 7 2:05 PHOTOGRAPHIC PLATEMAKER PM PHOTOGRAPHIC PLATEMAKER Franco Molina M.D. LAB BLOOD ADD-ON Performing Organization Address City/State/ZIP Code Phon e Number [facility] [address] [place] [address] [facility] LAB CBC with Differential (02/19/2017 8:58 AM PHOTOGRAPHIC PLATEMAKER) P athologist Signature Hemoglobin 15.7 13.2 - 02/19/2017 [facility] 16.6 g/dL 9:18 AM [facility] [employer] LAB Hematocrit 45.5 38.3 - 02/19/2017 [facility] 48.6 % 9:18 AM [facility] Erythrocytes 5.19 4.35 - 02/19/2017 [facility] 5.65 9:18 AM PHOTOGRAPHIC PLATEMAKER HEALTH x10(12)/L SYSTEMGlocal LAB MCV 87.7 78.2 - 02/19/2017 [facility] 97.9 fL 9:18 AM [facility] [employer] [facility] RBC Distrib Width 13.6 11.8 - 02/19/2017 [facility] 14.5 % 9:18 AM [facility] [employer] [facility] Platelet Count 195 135 - 317 02/19/2017 [facility] x10(9)/L 9:18 AM [facility] [employer] [facility] Leukocytes 6.9 3.4 - 9.6 02/19/2017 [facility] x10(9)/L 9:18 AM [facility] [employer] [facility] Neutrophils 3.97 1.56 - 02/19/2017 [facility] 6.45 9:18 AM PHOTOGRAPHIC PLATEMAKER HEALTH x10(9)/L SYSTEM- [employer] SystemsIBAC[employer] LAB Lymphocytes 2.04 0.95 - 02/19/2017 [facility] 3.07 9:18 AM PHOTOGRAPHIC PLATEMAKER HEALTH x10(9)/L SYSTEM- [employer] Cycl[employer] SystemsIBAULT LAB Monocytes 0.56 0.26 - 02/19/2017 [facility] 0.81 9:18 AM PHOTOGRAPHIC PLATEMAKER HEALTH x10(9)/L SYSTEM- [employer] SystemsIB[employer] LAB Eosinophils 0.32 0.03 - 02/19/2017 [facility] 0.48 9:18 AM PHOTOGRAPHIC PLATEMAKER HEALTH x10(9)/L SYSTEM- [employer] LAB Basophils 0.01 0.01 - 02/19/2017 [facility] 0.08 9:18 AM [facility] [employer] x10(9)/L SYSTEM- [employer] LAB Specimen Anatomical Collection Method Collection Time Receive d Time (Source) Location / / Volume Laterality Blood 02/19/2017 8:58 AM 7 8:58 PHOTOGRAPHIC PLATEMAKER AM PHOTOGRAPHIC PLATEMAKER Franco Molina M.D. LAB BLOOD ADD-ON Performing Organization Address City/State/ZIP Code Phon e Number [facility]- [address] [place] [address] [employer]AC[employer] LAB [facility]- [address] [place] [address] [place] [address] [employer] LAB (ABNORMAL) BMP (Basic Metabolic Panel) (02/19/2017 8:58 AM PHOTOGRAPHIC PLATEMAKER) P athologist Signature Potassium, S 4.9 3.6 - 5.2 02/19/2017 [facility] mmol/L 12:46 PM [facility]ron[facility] TherapeuticsATON[facility] LAB Sodium, S 136 135 - 145 02/19/2017 [facility] mmol/L 12:46 PM [facility] [employer] LAB Chloride, S 94 (L) 98 - 107 02/19/2017 [facility] mmol/L 12:46 PM [facility]ENTERChronos TherapeuticsATOMedtrics LabA LAB Bicarbonate, S 28 22 - 29 02/19/2017 [facility] mmol/L 12:46 PM [facility]- [employer] LAB Anion Gap 14 7 - 15 02/19/2017 [facility] 12:46 PM [facility] [employer] LAB BUN (Blood Urea 11 8 - 24 02/19/2017 [facility] Nitrogen), S mg/dL 12:46 PM [facility]ERSierra Health FoundationA LAB Creatinine 1.03 0.74 - 02/19/2017 [facility] 1.35 mg/dL 12:46 PM [facility] [employer] LAB eGFR 76 >=60 02/19/2017 [facility] Non-Black/Afric mL/min/BSA 12:46 PM [facility] [employer]- an [place] [facility] Comment: ----ADDITIONAL INFORMATION---- Estimated GFR calculated using the 2009 CKD_EPI creatinine equation. eGFR-Black/ 88 >=60 mL/min/BSA 2016 12:46 PM [facility] [place] [facility] Comment: ----ADDITIONAL INFORMATION---- Estimated GFR calculated using the 2009 CKD_EPI creatinine equation. Calcium, Total, S 9.8 8.9 - 10.1 mg/dL 02/19/2017 12:4 6 PM [facility] [place] [facility] Glucose, S 200 (H) 70 - 140 mg/dL 02/19/2017 12:[address] [facility] [place] [facility] Specimen Anatomical Collection Method Collection Time Receive d Time (Source) Location / / Volume Laterality Blood 02/19/2017 8:58 AM 7 PHOTOGRAPHIC PLATEMAKER 11:08 AM PHOTOGRAPHIC PLATEMAKER Franco Molina M.D. 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 PCP - General 09/25/16 07/27/19 documented as of this encounter
--- OUTSIDE RECORDS SUMMARY | 2022-02-17 12:25 | XMS_ITS | Encounter Summary ---
:1950 Author Organization [facility] Address [address] [place] [address] Care Team Providers Name Role Phone Ronald Molina M.D. Primary Care Provider Encounter Details Date Type Department Care Team Description 01/20/2017 Hospital Encounter HX [facility] Ronald Molina M.D. [address] [phone] Social History Tobacco Use Types Packs/Day Years [...] Sign Reading Time Taken Comments Blood Pressure 133/72 01/20/2017 3:46 PM CDT Pulse 79 01/20/2017 3:46 PM CDT Temperature - - Respiratory Rate 16 01/20/2017 3:46 PM CDT Oxygen Saturation - - Inhaled Oxygen Concentration - - Weight 104 kg (228 lb 9.9 oz) 01/20/2017 3:46 PM CDT Height 174 cm (5' 8.5) 01/20/2017 3:46 PM CDT Body Mass Index 34.25 01/20/2017 3:46 PM CDT documented in this encounter Medications at Time of Discharge [...] mg mouth at bedtime. tablet blood-glucose meter [facility] [place]pense glucose 0 05/2308/11/2018 meter, test strips [...] documented as of this encounter Progress Notes Ronald Molina M.D. - 01/20/2017 3:36 PM CDT [id number] CHIEF COMPLAINT/REASON FOR VISIT Followup on chronic medical problems. HISTORY OF PRESENT ILLNESS Elvis is a 66-year-old male who presents to the clinic today for a followup from 12/23/2016. His colon issue is better. He used to have small stool pellets but recently had a long, slim shaped stool, which seemed to decrease his abdominal pain. He has been taking Metamucil once a day and MiraLAX irregularly. I reviewed recommendations from GI at [facility] on 08/25/2016. He continues to have prostate issues. He saw Dr. Felicita Michelle, Urologist, at [facility] on 12/25/2016 for BPH and prostatitis. He was treated with Levaquin. Continue Flomax and followup in 6 months. In terms of his diabetes mellitus type 2, his blood sugar was 138 today. He is on Amaryl and Metformin. I reviewed and updated his medication list. We discussed potential side effects. There are no additional questions, concerns, or complaints. MEDICATIONS Aspirin 81 mg by mouth daily. Atorvastatin 20 mg by mouth at bedtime. BuSpar 20 mg by mouth twice a day. Fluoxetine 40 mg by mouth daily. Fluticasone 50 mcg inhalation powder, 1 spray both nostrils daily. Amaryl 4 mg by mouth daily in the morning with food. Atrovent 21 mcg/inh nasal spray 2 sprays both nostrils three times a day as needed. Lisinopril 2.5 mg by mouth daily in the morning. Metformin 1000 mg by mouth daily at supper time. Metoprolol tartrate 25 mg by mouth twice a day. Miralax 17 grams by mouth daily. Metamucil 1.7 grams by mouth twice a day. Ranitidine 150 mg by mouth twice a day. Tamsulosin 0.4 mg by mouth daily. ALLERGIES Bactrim causes swelling. SYSTEMS REVIEW Please see HPI for pertinent positives, otherwise rest of ROS negative. PAST MEDICAL/SURGICAL HISTORY Reviewed and updated as per the EHR on 01/20/2017. PREVENTIVE SERVICES Reviewed and updated as per the EHR on 01/20/2017. SOCIAL HISTORY Reviewed and updated as per the EHR on 01/20/2017. FAMILY HISTORY Reviewed and updated as per the EHR on 01/20/2017. VITAL SIGNS HEIGHT: 174 cm. WEIGHT: 103.7 kg. BMI: 34.25 kg/m2. TEMP: 36.1 Deg C. PULSE: 79 /min. RESP: 16 /min. SYSTOLIC: 133 mmHg. DIASTOLIC: 72 mmHg. PHYSICAL EXAMINATION GENERAL: Patient is sitting. No distress. Able to talk without interruption. IMPRESSION/REPORT/PLAN 1. Abdominal pain with chronic constipation. He should take Metamucil twice a day and Miralax once aday as recommended by GI at [facility]. If he continues to have symptoms, we can try Citrucel instead of Metamucil. We discussed trying Kefir yogurt as well. 2. Benign prostatic hypertrophy with obstruction. He does not have significant lower urinary tract symptoms. He will continue Tamsulosin 0.4 mg daily. He should contact Dr. Chan office if his symptoms worsen. 3. Diabetes mellitus type 2 with neuropathy. It is uncontrolled. He was advised to continue current [place] [employer] diet, regular exercise, and current medication. Need to monitor blood sugar daily. Self-management goals of diabetes mellitus were reviewed. Need to check hemoglobin A1c again in February 2017. 4. Immunization. He was given high-dose influenza vaccine today. Return to the clinic as previously scheduled in February 2017. This document serves as a record of services personally performed by Dr. Ronald Molina. It was created on their behalf by Balaji Larios, a trained medical videographer. The creation of this record is based on the scribe's personal observations and the provider's statements to them. This document has been checked and approved by the attending provider. Ronald Molina M.D./melissa Electronically Signed By: RONALD MOLINA MD On: 02/06/2017 06:44 PM Modified by and Electronically Signed by: RONALD MOLINA MD On: 02/06/2017 06:44 PM Source: [facility] [email or web address] Document Id: [id number] documented in this encounter Miscellaneous Notes Miscellaneous - Ronald Molina M.D. - 01/20/2017 4:29 PM CDT Ambulatory Patient Summary [address] [id number] Visit Information Name: ELVIS DAWKINS [facility] Number: [id number] Current Date: 01/20/2017 16:29:54 Physicians Attending Provider: RONALD MOLINA MD Primary Care Provider: RONALD MOLINA MD YOLY DAWKINSON DAVID has been given the following list of follow-up instructions, medication list,and patient education materials: Follow-up Instructions Your Medications Here is a list of your medications. It is important to take your medications as directed. Use a pillbox or chart to help remind you to take your medications. Please let your doctor or nurse know if you have problems taking your medications. Medication/Strength How to Take Indications/Special Instructions/Comments/Notes for Patient Medication Changes/Routing aspirin (aspirin 81 mg oral tablet) 1 Tablet(s), Oral, once a day Blood thinner. atorvastatin (atorvastatin 20 mg oral tablet) 1 Tablet(s), Oral, once a day (at bedtime) For high cholesterol. busPIRone (BuSpar 10 mg oral tablet) 2 Tablet(s), Oral, two times a day Dose increased on 12/23/2016. FLUoxetine (FLUoxetine 40 mg oral capsule) 1 cap, Oral, once a day (in the morning) fluticasone nasal (fluticasone 50 mcg/inh nasal spray) 2 Molina(s), Nostrils(Both), once a day glimepiride (Amaryl 4 mg oral tablet) 1 Tablet(s), Oral, once a day (in the morning) with the first meal of the day STOP Metformin. ipratropium nasal (Atrovent 21 mcg/inh nasal spray) 2 Molina(s), Nostrils(Both), three times a day asneeded for Nasal congestion in each nostril / For nasal congestion. lisinopril (lisinopril 2.5 mg oral tablet) 1 Tablet(s), Oral, once a day (in the morning) For high blood pressure and kidney protection. metFORMIN (metFORMIN 500 mg oral tablet, extended release) 2 Tablet(s), Oral, Daily Supper metoprolol (metoprolol tartrate 25 mg oral tablet) 1 Tablet(s), Oral, two times a day listed in doc by history / For high blood pressure. *polyethylene glycol 3350 (MiraLax oral powder for reconstitution) 17 gm, Oral, once a day 17gm(about one heaping tablespoon) dissolved in 4-8oz of water, juice, soda, coffee, or tea / As recommended by GI from [facility]. *psyllium (Metamucil) 1.7 gm, Oral, two times a day dissolve in 8 oz of fluid / You should try Citrucel if Metamucil doesn't help constipation, as per GI from [facility]. raNITIdine (raNITIdine 150 mg oral tablet) 1 Tablet(s), Oral, two times a day For stomach. tamsulosin (tamsulosin 0.4 mg oral capsule) 1 cap, Oral, once a day * You have let us know that you are not taking this medication as listed. Please talk with your primary care provider or the health care provider who prescribed the medication as soon as possible. Stop Taking the Following Medications: Medication list as of 01-20-17 16:29 Attention: If you have any medications at home that are not on this list, DO NOT take them until youcontact your provider for clarification. Give a copy of your medication list to your primary care provider. Update your medication list any time medications or doses are changed and carry your medication list at all times in case of emergency. Electronically Signed By: RONALD MOLINA MD Signed On:20-JAN-2017 16:29:15 Your Allergies & Intolerances Substance Reaction Symptoms Category Comments Bactrim swelling Drug Your Problem List Problem Status Onset Comments Irritable Bowel Syndrome (IBS) Active Hypertension (HTN) Essential Benign Active DM2 Active 01/03/16 Was on insulin Rx before. 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 Urinary Chronic Possible Active Infection Urinary Tract Acute (UTI) Active Overactive Bladder Active Spasm Bladder Active Diverticulosis Colon Active Callus Porter Foot Bilateral Active Osteoarthritis Hip Armando Per X-ray Active 08/28/2016 Arthritis Knee L Active Osteoarthritis Knee Primary Armando Active Hypertension (HTN) 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 Consider Using Patient Online [facility] Patient [employer] is a secure online and Mobile application that lets you: ?? View lab and test results ?? View portions of your medical record including clinical notes, immunizations and discharge summaries ?? Request an appointment or medication refill ?? Review your appointment schedule ?? Send secure messages to your care team Its easy to create an account if you dont have one. Go to [email or web address] and click on Create Your Account. Then, follow the directions to complete the online form. Youll be asked for your [facility] number which you can find at the top of this document. Your Goals/Additional instructions: Source: [facility] POWERCHART Document Id: [id number] Miscellaneous - Ronald Molina M.D. - 01/20/2017 4:29 PM CDT Ambulatory Discharge Medication List [address] [id number] Visit Information Name: ELVIS DAWKINS [facility] Number: [id number] Current Date: 01/20/2017 16:29:54 Attending Provider: RONALD MOLINA MD Primary Care Provider: RONALD MOLINA MD ELVIS DAWKINST has been given the following list of medications: Your Medications It is important to take your medications as directed. Use a pill box or chart to help remind you to take your medications. Please let your doctor or nurse know if you have problems taking your medications. Medication/Strength How to Take Indications/Special Instructions/Comments/Notes for Patient Medication Changes/Routing aspirin (aspirin 81 mg oral tablet) 1 Tablet(s), Oral, once a day Blood thinner. atorvastatin (atorvastatin 20 mg oral tablet) 1 Tablet(s), Oral, once a day (at bedtime) For high cholesterol. busPIRone (BuSpar 10 mg oral tablet) 2 Tablet(s), Oral, two times a day Dose increased on 12/23/2016. FLUoxetine (FLUoxetine 40 mg oral capsule) 1 cap, Oral, once a day (in the morning) fluticasone nasal (fluticasone 50 mcg/inh nasal spray) 2 Molina(s), Nostrils(Both), once a day glimepiride (Amaryl 4 mg oral tablet) 1 Tablet(s), Oral, once a day (in the morning) with the first meal of the day STOP Metformin. ipratropium nasal (Atrovent 21 mcg/inh nasal spray) 2 Molina(s), Nostrils(Both), three times a day asneeded for Nasal congestion in each nostril / For nasal congestion. lisinopril (lisinopril 2.5 mg oral tablet) 1 Tablet(s), Oral, once a day (in the morning) For high blood pressure and kidney protection. metFORMIN (metFORMIN 500 mg oral tablet, extended release) 2 Tablet(s), Oral, Daily Supper metoprolol (metoprolol tartrate 25 mg oral tablet) 1 Tablet(s), Oral, two times a day listed in doc by history / For high blood pressure. *polyethylene glycol 3350 (MiraLax oral powder for reconstitution) 17 gm, Oral, once a day 17gm(about one heaping tablespoon) dissolved in 4-8oz of water, juice, soda, coffee, or tea / As recommended by GI from [facility]. *psyllium (Metamucil) 1.7 gm, Oral, two times a day dissolve in 8 oz of fluid / You should try Citrucel if Metamucil doesn't help constipation, as per GI from [facility]. raNITIdine (raNITIdine 150 mg oral tablet) 1 Tablet(s), Oral, two times a day For stomach. tamsulosin (tamsulosin 0.4 mg oral capsule) 1 cap, Oral, once a day * You have let us know that you are not taking this medication as listed. Please talk with your primary care provider or the health care provider who prescribed the medication as soon as possible. Stop Taking the Following Medications: Medication list as of 01-20-17 16:29 Attention: If you have any medications at home that are not on this list, DO NOT take them until youcontact your provider for clarification. Give a copy of your medication list to your primary care provider. Update your medication list any time medications or doses are changed and carry your medication list at all times in case of emergency. Electronically Signed By: RONALD MOLINA MD Signed On:20-JAN-2017 16:29:15 Additional Information: Source: [facility] POWERCHART Document Id: [id number] Miscellaneous - Kailyn Hager, L.P.N. 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 Follow up 12/23/16 Temperature Core : 36.1 DegC(Converted to: 97.0 DegF) (LOW) Peripheral Pulse Rate : 79 /min Respiratory Rate : 16 /min Heart Rhythm : Regular Systolic Blood Pressure : 133 mmHg Diastolic Blood Pressure : 72 mmHg NIBP Mean : 92 mmHg Height : 174 cm(Converted to: 5 ft 9 inch(es), 69 inch(es)) Actual Weight : 103.70 kg(Converted to: 228 lb 10 oz) Dosing Weight Clinic : 103.7 kg Clinic BSA : 2.24 Body Mass Index : 34.25 kg/m2 KAILYN HAGER AUTOMOTIVE PARTS INTERPRETER - 01/20/2017 15:46 CDT General Info Information Given By : Patient, EMS Languages : [place] Is Patient Female and 13-50 no hysterectomy : No KAILYN HAGER [facility] - 01/20/2017 15:46 CDT Subjective Pain Symptoms : Yes KAILYN HAGER [facility] - 01/20/2017 15:46 CDT Pain Scale Pain Scale Verbal 0-10 : Open KAILYN HAGER [facility] - 01/20/2017 15:46 CDT Dependent Habits Exposure to Tobacco Smoke : Other: Never Smoking Status : Never smoker Tobacco 2A : No Tobacco Use/Currently Using : No Tobacco Use/Last 30 Days : No Tobacco Use/Last 12 months : No KAILYN HAGER [employer]S INTERPRETER - 01/20/2017 15:46 CDT Source: [employer] Document Id: [id number] CDT!30 documented in this encounter Plan of Treatment Upcoming Encounters Date Type Specialty Care Team Description 04/23/2022 Office Visit Cardiovascular Disease Blas Peck M.D. [address] [place] [phone] (Wo rk) documented as of this encounter Visit Diagnoses Not on filedocumented in this encounter Additional Health Concerns Assessment Noted Time PHQ-9 Depression Total Score: 5 12/23/2016 8:36 AM CDT documented as of this encounter Care Teams Emd Special Education Teacher Relationship Specialty Start Date End Date Ronald Molina M.D. PCP - General 09/25/16 07/27/19 documented as of this encounter
--- OUTSIDE RECORDS SUMMARY | 2022-02-17 12:25 | XMS_ITS | Encounter Summary ---
:1950 Author Organization [facility] Address [address] [place] [address] Care Team Providers Name Role Phone Franco Molian M.D. Primary Care Provider Reason for Visit Reason Comments Med Refill Encounter Details Date Type Department Care Team Description 04/20/2017 Refill Department of [facility] Torey Molina M.D. Med Refill Internal Medicine in [address] [place] [phone] [facility] [place] [address] Social History Tobacco Use [...] Visit Cardiovascular Disease Blas Peck M.D. [address] [place], [place] [phone] (Wo rk) documented as of this encounter Visit Diagnoses Not on filedocumented in this encounter Additional Health Concerns Assessment Noted Time PHQ-9 Depression Total Score: 5 12/23/2016 8:36 AM CDT documented as of this encounter Care Teams Stem Cutter Relationship Specialty Start Date End Date Franco Molina M.D. PCP - General 09/25/16 07/27/19 documented as of this encounter
--- OUTSIDE RECORDS SUMMARY | 2022-02-17 12:25 | XMS_ITS | Encounter Summary ---
:1950 Author Organization [facility] Address [address] [place] [address] Care Team Providers Name Role Phone Franco [...] Post Personal History Franco Molina M.D. [facility] Cardiovascular Disease [address], [facility] [address] [place] [address] Referral ID Status Reason Start Date Expiration Date Visits Requ ested Visits Authorized [id number] Closed 05/28/2017 11/24/2017 1 1 utpatient (Routine) - Closed Specialty Diagnoses / Procedures Referred By Contact Oswald diaz To Contact Community Internal Franco [facility]ina M.D. [facility] Medicine [address], [facility] [address] [place] [address] Referral ID Status Reason Start Date Expiration Date Visits Requ ested Visits Authorized [id number] Closed 05/28/2017 11/24/2017 1 1 Scheduling Instructions 3 month follow up. Need fasting blood te sts before appt TH TECHNICIAN Reason for Visit Reason Comments Follow-up three month from 02/23/2017 Appointment Request (Routine) - Closed Specialty Diagnoses / Procedures Referred By Contact Oswald diaz To Contact [facility] Internal Medicine Referral ID Status Reason Start Date Expiration Date Visits Requ ested Visits Authorized [id number] Closed 02/23/2017 08/22/2017 1 1 Encounter Details Date Type Department Care Team Description 05/28/2017 Office Visit Department of Franco Molina M.D . Frequency Urinary (Primary Dx); Community Internal [address], Urg ency Urinary; Medicine in [place] [address] Overactive Bladder; [place], [place], [place] Irritable Bowel Syndrome Wit h Constipation; [address] [address] 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 ([facility]); [place], [place] Hyperten sive Heart And Chronic Kidney Disease Without Heart Failure And With Stage 2 (Mild) Chronic Kidney Disease; [address] Pain Chest; [phone] Coronary Artery Disease; Coronary Arteri al Bypass Graft Status Post Personal History; Hyperlipidemia; Polyp Colon Hyp erplastic; High Risk Medic ation Social History Tobacco [...] Sign Reading Time Taken Comments Blood Pressure 104/60 05/28/2017 9:04 AM HEALTH TECHNICIAN Pulse 69 05/28/2017 9:04 AM HEALTH TECHNICIAN Temperature - - Respiratory Rate 16 05/28/2017 9:04 AM HEALTH TECHNICIAN Oxygen Saturation - - Inhaled Oxygen Concentration - - Weight 106 kg (233 lb 11 oz) 05/28/2017 9:04 AM HEALTH TECHNICIAN Height - - Body Mass Index 35.01 01/20/2017 3:46 PM CDT documented in this encounter Patient Instructions Patient InstructionsFranco Molina M.D. - 05/28/2017 9:15 AM CST Your diabetes has improved. Please continue low calories, low-fat and low- cholesterol diet. We will check blood test today for congestive heart failure and heart attack. We will contact you with test results. Please make an appointment to see lieutenant shift supervisor. Please follow urologist recommendation. Return to clinic in 3 months for follow-up. Please do fasting blood test few days prior to the appointment. TH TECHNICIAN documented in this encounter Progress Notes Franco Molina M.D. - 05/28/2017 9:15 AM CST SUBJECTIVE CHIEF COMPLAINT/REASON FOR VISIT 1. Followup on chronic medical problems. 2. Discuss test results. HISTORY OF PRESENT ILLNESS Elvis Dawkins is a 67 y.o. male who presents to the clinic today for a three month followup. I last saw him on 04/28/2017. He saw Dr. Renetta Sweeney and Dr. Clark Dodge in Urology at [facility] on 05/08/2017 forurinary urgency and frequency. Urinalysis was negative. PSA was 0.85. It was recommended to decreasefluid intake, stop fluids after 6 p.m., Kegel exercises, start Ditropan 10 mg, and continue Flomax. Patient had colonoscopy with Dr. Devi at [facility] on 05/11/2017. Preparation of colon was poor. It showed 2 mm polyp, hyperplastic. It was recommended to repeat in 3 years. He is taking medication as directed. He feels that cutting back fluids made his urinary and bowel symptoms worse. His nocturia seems to be a bit better. His bladder and lower abdominal area continues to feel raw and torn. He feels bloated often. He notices various shapes and sizes of stool. We discussed test results from 05/26/2017. Results were remarkable for normal CBC, creatinine 0.90, glucose 123, EGFR 89, normal liver enzymes, hemoglobin A1c 7.8, and normal CK. He has diabetes mellitus type 2 with neuropathy. His hemoglobin A1c improved from 8.7 to 7.8. He checks his blood sugar most days, usually around 150. He mentioned that taking four tablets of Metforminis a lot. We discussed splitting medication to 2 tablets twice a day. Of note, his BNP was 98 on 05/08/2017. He usually uses 1 to 1.5 pillows under his head. There was noparoxysmal nocturnal dyspnea, palpitation, or peripheral edema. He had discomfort in his right chesta few days ago. He took Nitroglycerin just in case and resolved the issue. He denies any chest pain today. He has shortness of breath with activities. Patient has history of coronary artery disease with coronary artery bypass grafting x 4, hypertension, and stage 2 chronic kidney disease. I reviewed his echocardiogram results from 10/26/2015: 1. Transthoracic outreach echo interpretation. 2. Technically challenging images. Contrast not available at the time this echo was performed at this outreach site. 3. Normal left ventricular chamber size. 4. Regional wall motion abnormalities were present (see wall motion graphics). Can not be certain because of suboptimals endocardial definition. 5. Estimated left ventricular ejection fraction; 55 %. 6. Normal left ventricular diastolic function. 7. Normal right ventricular size with mild systolic dysfunction. 8. No significant valvular heart disease. 9. Estimated right ventricular systolic pressure 21 mmHg (systolic blood pressure 110 mmHg). I reviewed his medication list. We discussed potential side effects. There are no additional questions, concerns, or complaints. CURRENT MEDICATIONS Current Outpatient Prescriptions Medication Sig Dispense Refill ??? aspirin 81 mg chewable tablet Chew 1 tablet daily. ??? atorvastatin (for_LIPITOR) 20 mg tablet Take 1 tablet by mouth at bedtime. ??? blood-glucose meter [facility] Dispense glucose meter, test strips and lancets covered by the patient insurance. Test 2 times per day. ??? busPIRone (for_BUSPAR) 10 mg tablet Take 2 tablets by mouth 2 (two) times a day. ??? docusate sodium (for_COLACE) 100 mg capsule Take 100 mg by mouth daily as needed. ??? FLUoxetine (for_PROzac) 40 mg capsule Take 1 capsule by mouth every morning. ??? glimepiride (AMARYL) 4 mg tablet Take 1 tablet by mouth every morning. ??? lisinopril (for_PRINIVIL,ZESTRIL) 2.5 mg tablet Take 1 tablet (2.5 mg total) by mouth every morning. 90 tablet 3 ??? metFORMIN (for_GLUMETZA) 500 mg 24 hr tablet Take 2 tablets (1,000 mg total) by mouth 2 (two) times a day with meals. 360 tablet 3 ??? metoprolol tartrate (for_LOPRESSOR) 25 mg tablet Take 1 tablet by mouth 2 (two) times a day. ??? nitroglycerin (NITROSTAT) 0.[address] 1 tablet under the tongue every 5 (five) minutes as needed. Up to 3 doses & call 911 ??? polyethylene glycol (for_MIRALAX) 17 gram powder [...] by mouth daily. 100 capsule 3 ??? fluticasone (for_FLONASE) 50 mcg/actuation nasal spray Administer 2 sprays into each nostril daily. ??? ipratropium (ATROVENT) 0.03 % nasal spray Administer 2 sprays into each nostril 3 (three) times a day as needed. No current facility-administered medications for this visit. [...] 34.0 To 34.9 Adult 01/03/2016 ??? Callus Brea Foot 04/25/2016 ??? Congestion Nasal 01/03/2016 ??? [...] For colon polyps. Repeat in 3 years. [facility]. ??? COLONOSCOPY 05/11/[address]/[place]. Dr. Devi miralasara prep, quality poor. Repeat in 3 years. ??? CORONARY ARTERY BYPASS GRAFTS X 4 05/28/2014 ??? INGUINAL HERNIA REPAIR Bilateral SOCIAL HISTORY Social History Social History ??? Marital status: Spouse name: N/A ??? Number of children: N/A ??? 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 Smoking status: Never Smoker ??? Smokeless tobacco: Never Used ??? Alcohol use Not on file ??? Drug use: Unknown ??? Sexual activity: Not on file Other Topics Concern ??? Not on file Social History Narrative ??? No narrative on file FAMILY HISTORY Family History Problem Relation Age of Onset ??? Deep vein thrombosis Father ??? Hypertension Mother ??? Diabetes Mother ??? Cataracts Mother ??? Irritable bowel syndrome Mother ??? Colon cancer Mother ??? Irritable bowel syndrome Grandfather ??? Parkinson disease Sister ??? Parkinsons disease Sister ??? Prostate cancer Brother OBJECTIVE VITAL SIGNS Vitals: 05/28/17 0904 BP: 104/60 Patient Position: Sitting Pulse: 69 Resp: 16 Weight: 106 kg PHYSICAL EXAMINATION GENERAL: Patient is sitting. No distress. Able to talk without interruption. HEAD: No facial rash, asymmetry or sinus tenderness. EYES: PERRLA. EOMI. No pallor, icterus or conjunctivitis. ENT: No nasal congestion, discharge or bleeding. There is no ear infection or discharge. No mastoid tenderness. Tongue is moist and midline. No oral lesions. LYMPH NODES: No cervical or supraclavicular lymphadenopathy. PERIPHERAL VESSELS: Good pedal pulses. HEART: No carotid bruit. No JVD. Regular rhythm. There is no S3, gallop, murmur or thrill. LUNGS: Normal respiratory effort. Clear to auscultation. Normal percussion. ABDOMEN: Moves with respiration. Bowel sounds present. Soft. No rebound tenderness, guarding or rigidity. No organomegaly. EXTREMITIES: No clubbing, cyanosis, edema, infection or calf tenderness. MENTAL: Alert and oriented x 3. Normal mood and affect. NEURO: Grossly nonfocal. Monofilament test normal. DIAGNOSTICS LABORATORY: 05/26/2017 10:54 Hemoglobin, B 14.6 Hematocrit 43.3 Erythrocytes 4.94 MCV 87.7 RBC Distrib Width 14.2 Leukocytes 7.0 Platelet Count 188 Sodium, S 136 Potassium, S 5.0 Chloride, S 96 (L) Bicarbonate, S 27 Anion Gap 13 Bld Urea Nitrog(BUN), S 9 Creatinine 0.90 Calcium, Total, S 9.7 Glucose, B 123 eGFR Non- 89 eGFR- >90 Alanine Aminotransferase (ALT), S 16 Aspartate Aminotransferase (AST), S 26 Hemoglobin A1c, B 7.8 (H) Creatine Kinase (CK), S 301 ASSESSMENT / PLAN #1 Frequency Urinary #2 Urgency Urinary #3 Overactive Bladder He saw urology at [facility]. He needs to follow urologists' recommendations. He will continue Ditropan 10 mg daily as needed and Flomax 0.4 mg daily. #4 Irritable Bowel Syndrome With Constipation He had colonoscopy recently, which showed hyperplastic polyp. He should continue MiraLAX daily, Metamucil twice a day, and Colace as needed. #5 Diabetes Mellitus Type 2 With Diabetic Neuropathy (HCC) It is improved. Hemoglobin A1c was 7.8% on 05/26/2017. He can switch Metformin from 2000 mg daily inthe evening to 1000 mg twice a day. Patient was advised to continue current [place] [employer] diet, regular exercise, and other medication. Need to monitor blood sugar daily. Self-management goals of diabetes mellitus were reviewed. Need to check hemoglobin A1c and urine microalbumin in 3 months. #6 Hypertensive Heart And Chronic Kidney Disease Without Heart Failure And With Stage 2 (Mild) Chronic Kidney Disease Blood pressure is controlled. Need to continue sodium controlled diet and current medication. Monitor blood pressure regularly at home. Blood pressure goal is less than 140/90 mmHg. Need to continue cardiovascular risk factors modification. #7 Pain Chest #8 Coronary Artery Disease #9 Coronary Arterial Bypass Graft x 4 Status Post Personal History He is stable from a cardiac standpoint on exam. He took Nitroglycerin a few days ago for chest discomfort. There is no current chest pain. It is not typical chest pain. Because of his history, we need to check BNP and troponin I today to make sure his chest discomfort is not related to his heart. Needto follow these results. We will refer him to Dr. Blas Peck, Clutch Assembler, for further evaluation and management. He should contact me or go to the hospital if there is worsening of symptoms. Needto continue current medications and cardiovascular risk factor modification. #10 Hyperlipidemia There are no side effects from Atorvastatin. Patient was advised to continue low cholesterol, low fat diet, regular exercise, and current medication. Need to check fasting lipid profile again in 3 months. #11 Polyp Colon Hyperplastic He had colonoscopy with Dr. Devi at [facility] on 05/11/2017. Need to repeat in 3 years [2021]. #12 Renew Medications The following medications were renewed: Metformin. #13 Discussed Test Results I reviewed test results from 05/26/2017. All questions were answered. #14 Today Studies Patient had following studies done today: BNP and Troponin I. Patient will be notified with results & recommendations. #15 Followup Visit Return to the clinic in 3 months for followup with following tests prior to appointment: BMP, CBC, Ck, Hemoglobin A1c, HFP, Lipids, Urine microalbumin, and TSH. Administrative Billing 30 minutes of this 35 minute visit was spent in face to face counseling and coordination of care. This document serves as a record of services personally performed by Dr. Franco Molina. It was created on their behalf by Balaji Larios, a trained medical center representative. The creation of this record is based on the scribe's personal observations and the provider's statements to them. This document has been checked and approved by the attending provider. TH TECHNICIAN Franco Molina M.D. - 05/28/2017 9:15 AM CST Please call him. BNP is still high a little bit. He needs to cut back fluid intake. He should watch sodium intake, which should be less than 2000 mg a day. He needs echocardiogram. Order is in EHR. TH TECHNICIAN Estefany Mark L.P.N. - 05/28/2017 9:15 AM CST Patient notified of results and Dr. Molina's recommendations. Patient agreed to have an echocardiogramdone and was warm transferred to scheduling. TH TECHNICIAN documented in this encounter Plan of Treatment Upcoming Encounters Date Type Specialty Care Team Description 04/23/2022 Office Visit Cardiovascular Disease Blas Peck M.D. [address] [place] [address] [phone] (Wo rk) Scheduled Referrals Name Type Priority Associated Diagnoses Order S [facility] Internal Outpatient Routine Expected: Medicine office visit Referral 2017 (clinic) (Approximate), Expires: 05/28/2020 Cardiovascular Disease Outpatient Routine Hypertensive Heart Expected: - General consult Referral And Chronic Kidney 05/14 (clinic) Disease Without (Approximate ), Heart Failure And Expires: With Stage 2 (Mild) 05/28/19 21 Chronic Kidney Disease Coronary Artery Disease Coronary Arterial Bypass Graft Status Post Personal History documented as of this encounter Procedures Procedure Name Priority Date/Time Associated Comments Diagnosis NT-PRO B-TYPE Routine 05/28/2017 10:24 Coronary Artery Results for this NATRIURETIC PEPTIDE AM HEALTH TECHNICIAN Disease procedure are in (BNP), S Coronary Arterial the result s Bypass Graft Status section. Post Personal History documented in this encounter Results Microalbumin, Random, Urine (08/21/2017 8:23 AM CDT) P athologist Signature Microalbumin <7.0 mg/L 08/21/2017 [facility] 12:15 PM T [facility] Creatinine 82 mg/dL 08/21/2017 [facility] 12:[address] [facility] [place] [facility] Albumin/Creatinin <9 <17 mg/g 08/21/2017 [facility] e Ratio 12:15 PM CDT [facility] Comment: This ratio may not correspond [...] M.D. LAB URINE ORDERABLES Performing Organization Address City/[facility] Phon e Number [facility] [address] [place] [address] LAB S-TSH (Thyroid-Stimulating Hormone - Sensitive) (08/21/2017 7:45 AM CDT) athologist Signature TSH, Sensitive 2.0 0.3 - 4.2 08/21/2017 [facility] mIU/L 11:48 AM CDT [facility] Comment: Biotin has been identified by the kalpana vo as a potential interfering substance. ??Higher concentr ations of biotin may be found in multivitamins, hair/nail supple ments, and workout supplements. ??If the result does not ma [facility] clinical observations, repeat testing after patient refrains fr om the use of supplements for at least 12 hours. Specimen Anatomical Collection Method Collection Time Receive d Time (Source) Location / / Volume Laterality Blood 08/21/2017 7:45 AM 8 CDT 11:11 AM CDT Franco Molina M.D. LAB BLOOD ADD-ON Performing Organization Address City/[facility] Code Phon e Number [facility] [address] [place] [address] LAB Lipid Panel (08/21/2017 7:45 AM CDT) athologist Signature Cholesterol, 109 mg/dL 08/21/2017 [facility] Total 11:48 AM CDT [facility] Comment: ----REFERENCE VALUE---- Desirable: < 200 Borderline high: 200 - 239 High: > or = 240 Triglycerides 74 mg/dL 08/21/2017 11:48 AM CDT [facility] [place] Comment: ----REFERENCE VALUE---- Normal: <150 Borderline high: 150-199 High: 200-499 Very high: > or =500 Cholesterol, HDL, S 40 >=40 mg/dL 08/21/2017 11:48 AM CDT [facility] [place] [facility] Calculated LDL 54 mg/dL 08/21/2017 11:48 AM CDT [facility] [place] Comment: ----REFERENCE VALUE---- Desirable: <100 Above Desirable: 100-129 Borderline high: 130-159 High: 160-189 Very high: > or =190 Cholesterol, Non-HDL, 69 mg/dL 08/21/2017 11:48 A M CDT [facility] [place] Comment: ----REFERENCE VALUE---- Desirable: <130 Above Desirable: 130-159 Borderline high: 160-189 High: 190-219 Very high: > or =220 Specimen Anatomical Collection Method Collection Time Receive d Time (Source) Location / / Volume Laterality Blood 08/21/2017 7:45 AM 8 CDT 11:11 AM CDT Franco Molina M.D. LAB BLOOD ADD-ON Performing Organization Address City/State/ZIP Code Phon e Number [facility] [address] [place] [address] LAB (ABNORMAL) Hemoglobin A1c (08/21/2017 7:45 AM CDT) P athologist Signature Hemoglobin A1c, 8.0 (H) 4.2 - 5.6 08/21/2017 [facility] B % 11:46 AM CDT [facility] Comment: Hemoglobin A1c values greater than [...] City/State/ZIP Code Phon e Number [facility] [address] [place] [address] LAB CK (Creatine Kinase) (08/21/2017 7:45 AM CDT) P athologist Signature Creatine Kinase 241 39 - 308 08/21/2017 [facility] (CK), S U/L 3:11 PM CDT [facility] Specimen Anatomical Collection Method Collection Time Receive d Time (Source) Location / / Volume Laterality Blood 08/21/2017 7:45 AM 8 2:09 CDT PM CDT Franco Molina M.D. LAB BLOOD ADD-ON Performing Organization Address City/State/ZIP Code Phon e Number [facility] [address] [place] [address] [place] [facility] Hepatic Function Panel (08/21/2017 7:45 AM CDT) Patholo gist Method Time Signature Bilirubin, Total, S 0.6 <=1.2 08/21/2017 [facility] mg/dL 11:48 AM CDT [facility] Bilirubin, Direct, S 0.2 0.0 - 0.3 08/21/2017 [facility] mg/dL 11:48 AM CDT [facility] Aspartate 19 8 - 48 08/21/2017 [facility] Aminotransferase U/L 11:48 AM [facility] Alanine 14 7 - 55 08/21/2017 [facility] Aminotransferase U/L 11:48 AM CDT [facility] Alkaline 111 45 - 115 08/21/2017 [facility] Phosphatase, S U/L 11:48 AM CDT [facility] Albumin, S 4.4 3.5 - 5.0 08/21/2017 [facility] g/dL 11:48 AM CDT [facility] Protein, Total, S 7.1 6.3 - 7.9 08/21/2017 [facility] g/dL 11:48 AM CDT [facility] Specimen Anatomical Collection Method Collection Time Receive d Time (Source) Location / / Volume Laterality Blood 08/21/2017 7:45 AM 8 CDT 11:11 AM CDT Franco Molina M.D. LAB BLOOD ADD-ON Performing Organization Address City/State/ZIP Code Phon e Number [facility] [employer] [address] [place] [address] LAB (ABNORMAL) BMP (Basic Metabolic Panel) (08/21/2017 7:45 AM CDT) P athologist Signature Potassium, S 5.0 3.6 - 5.2 08/21/2017 [facility] mmol/L 11:48 AM [facility] Sodium, S 136 135 - 145 08/21/2017 [facility] mmol/L 11:48 AM [facility] Chloride, S 95 (L) 98 - 107 08/21/2017 [facility] mmol/L 11:48 AM [facility] Bicarbonate, S 27 22 - 29 08/21/2017 [facility] mmol/L 11:48 AM [facility] [employer] LAB Anion Gap 14 7 - 15 08/21/2017 [facility] 11:48 AM [facility] [employer] [facility] BUN (Blood Urea 14 8 - 24 08/21/2017 [facility] Nitrogen), S mg/dL 11:48 AM [facility] [employer] [facility] Creatinine 0.99 0.74 - 08/21/2017 [facility] 1.35 mg/dL 11:48 AM [facility] [employer] LAB eGFR-Non 79 >=60 08/21/2017 [facility] Black/ mL/min/BSA 11:[address] [facility] [place] [facility] Comment: ----ADDITIONAL INFORMATION---- Estimated GFR calculated using the 2009 CKD_EPI creatinine equation. eGFR-Black/ >90 >=60 mL/min/BSA 2017 11:48 [facility] [employer] [facility] Comment: ----ADDITIONAL INFORMATION---- Estimated GFR calculated using the 2009 CKD_EPI creatinine equation. Calcium, Total, S 9.9 8.8 - 10.2 mg/dL 08/21/2017 11:4 8 AM [facility] Glucose, S 143 (H) 70 - 140 mg/dL 08/21/2017 11:48 AM [facility] Specimen Anatomical Collection Method Collection Time Receive d Time (Source) Location / / Volume Laterality Blood 08/21/2017 7:45 AM 8 CDT 11:11 AM CDT [facility] M.D. LAB BLOOD ADD-ON Performing Organization Address City/[facility]/ZIP Code Phon e Number [facility] [place] [address] [facility] [place] [address] LAB CBC without Differential (08/21/2017 7:45 AM CDT) athologist Signature Hemoglobin 14.3 13.2 - 08/21/2017 [facility] 16.6 g/dL 8:38 AM [facility] [employer] [facility] Hematocrit 41.8 38.3 - 08/21/2017 [facility] 48.6 % 8:38 AM [facility] [employer] [facility] Erythrocytes 4.83 4.35 - 08/21/2017 [facility] 5.65 8:[address] [facility] x10(12)/L [facility] [employer] [facility] MCV 86.5 78.2 - 08/21/2017 [facility] 97.9 fL 8:38 AM [facility] RBC Distrib Width 14.0 11.8 - 08/21/2017 [facility] 14.5 % 8:38 AM [facility] Platelet Count 238 135 - 317 08/21/2017 [facility] x10(9)/L 8:38 AM [facility] [employer] [facility] Leukocytes 6.2 3.4 - 9.6 08/21/2017 [facility] x10(9)/L 8:38 AM [facility] Specimen Anatomical Collection Method Collection Time Receive d Time (Source) Location / / Volume Laterality Blood 08/21/2017 7:45 AM 8 7:47 CDT AM CDT [employer] M.D. LAB BLOOD ADD-ON Performing Organization Address City/[facility]/ZIP Code Phon e Number [facility] [address] [facility] [place] [address] [facility] [place] [address] LAB (ABNORMAL) NT-Pro B-Type Natriuretic Peptide (BNP) (05/28/2017 10:24 AM HEALTH TECHNICIAN) P athologist Signature NT-Pro BNP 99 (H) <=89 pg/mL 05/28/2017 [facility] 1:25 PM [facility] Comment: NT-proBNP values less than 300 pg/mL hav e a 99% negative predictive value for excluding acute congestive heart elin lure. A cutoff of 1200 pg/mL for patients with an eGFR<60 yields a diagno stic sensitivity and specificity of 89% and 72% for acute congestive heart f ailure. ??A diagnostic NT-proBNP cutoff of 900 pg/mL has been suggested i n adults 50-75 years of age in the absence of renal failure. Biotin has been identified by the [facility] as a potential interfering substance. ??Higher concentr ations of biotin may be found in multivitamins, hair/nail supple ments, and workout supplements. ??If the result does not ma the [facility] clinical observations, repeat testing after patient refrains fr om the use of supplements for at least 12 hours. Specimen Anatomical Collection Method Collection Time Receive d Time (Source) Location / / Volume Laterality Blood (Blood, 05/28/2017 10:24 05/28/2017 1:02 Venous) AM HEALTH TECHNICIAN PM HEALTH TECHNICIAN Franco Molina M.D. LAB BLOOD ADD-ON Performing Organization Address City/State/ZIP Code Phon e Number [facility] [address] [place] [address] LAB documented in this encounter Visit Diagnoses Diagnosis Frequency Urinary - Primary Urgency Urinary Overactive Bladder Irritable Bowel Syndrome With Constipati on 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 (HCC) Hypertensive Heart And Chronic Kidney Di sease Without Heart Failure And With Stage 2 (Mild) Chronic Kidney Disease Pain Chest Coronary Artery Disease (Unspecified) Coronary Arterial Bypass Graft Status Po st Personal History Hyperlipidemia Polyp Colon Hyperplastic High Risk Medication documented in this encounter Additional Health Concerns Assessment Noted Time PHQ-9 Depression Total Score: 5 12/23/2016 8:36 AM CDT documented as of this encounter Care Teams Nursing Support Worker Relationship Specialty Start Date End Date Franco Molina M.D. PCP - General 09/25/16 07/27/19 documented as of this encounter
--- OUTSIDE RECORDS SUMMARY | 2022-02-17 12:25 | XMS_ITS | Encounter Summary ---
:1950 Author Organization [facility] Address [address] [place] [address] Care Team Providers Name Role Phone Franco Molina M.D. Primary Care Provider Encounter Details Date Type Department Care Team Description 03/24/2017 Orders Only Department of [facility] Macrina Fajardo Internal Medicine in [address] [place] [address] [address] [facility] [place] [address] Social History Tobacco Use [...] Disease Blas Peck M.D. [address] [place], [place] [phone] (Wo rk) documented as of this encounter Visit Diagnoses Not on filedocumented in this encounter Additional Health Concerns Assessment Noted Time PHQ-9 Depression Total Score: 5 12/23/2016 8:36 AM CDT documented as of this encounter Care Teams Cutting Room Supervisor Relationship Specialty Start Date End Date Franco Molina M.D. PCP - General 09/25/16 07/27/19 documented as of this encounter
--- OUTSIDE RECORDS SUMMARY | 2022-02-17 12:25 | XMS_ITS | Encounter Summary ---
:1950 Author Organization [facility] Address [address] [place] [address] Care Team Providers Name Role Phone Franco Molina M.D. Primary Care Provider Encounter Details Date Type Department Care Team Description 02/27/2017 Nurse Triage Department of [facility] Daphne Whitlock R.N. Medicine, [facility], in [address] [place] [phone] [place] [address] Social History Tobacco Use Types Packs/Day Years [...] Visit Cardiovascular Disease Blas Peck M.D. [address] [place] [phone] (Wo rk) documented as of this encounter Visit Diagnoses Not on filedocumented in this encounter Additional Health Concerns Assessment Noted Time PHQ-9 Depression Total Score: 5 12/23/2016 8:36 AM CDT documented as of this encounter Care Teams Shed Boss Relationship Specialty Start Date End Date Franco Molina M.D. PCP - General 09/25/16 07/27/19 documented as of this encounter
--- OUTSIDE RECORDS SUMMARY | 2022-02-17 12:25 | XMS_ITS | Encounter Summary ---
:1950 Author Organization [facility] Address [address] [place] [address] Care Team Providers Name Role Phone Franco Molina M.D. Primary Care Provider Encounter Details Date Type Department Care Team Description 03/30/2017 Orders Only Department of [facility] Juliet Small L.P.N. Internal Medicine in [address] [place], [place] [address] [facility] [address] [place] [address] [phone] Social History Tobacco Use Types Packs/Day Years [...] Cardiovascular Disease Blas Peck M.D. [address] [place], [place] [phone] (Wo rk) documented as of this encounter Visit Diagnoses Not on filedocumented in this encounter Additional Health Concerns Assessment Noted Time PHQ-9 Depression Total Score: 5 12/23/2016 8:36 AM CDT documented as of this encounter Care Teams Microfiche Camera Operator Relationship Specialty Start Date End Date Franco Molina M.D. PCP - General 09/25/16 07/27/19 documented as of this encounter
--- OUTSIDE RECORDS SUMMARY | 2022-02-17 12:25 | XMS_ITS | Encounter Summary ---
:1950 Author Organization [facility] Address [address] [place] [address] Care Team Providers Name Role Phone Franco Molina M.D. Primary Care Provider Reason for Visit Reason Comments Communication Encounter Details Date Type Department Care Team Description 04/28/2017 Clinical Communication Department of Nabeel Molina M.D. Communication [facility] Internal [facility] [phone] [address] (Fax) [phone] Social History Tobacco Use Types Packs/Day Years [...] Telephone Encounter - Kailyn Pringle L.P.N. - 04/28/2017 3:25 PM NEEDLE POLISHER Please schedule. Thank you LE POLISHER Telephone Encounter - Franco Molina M.D. - 04/28/2017 3:00 PM CST Please schedule colonoscopy at [address] Dx: History of colon polyp, 07/27/2015 and change in bowel habit. LE POLISHER Telephone Encounter - Franco Molina M.D. - 04/28/2017 2:58 PM CST Please call [facility] to get colonoscopy procedure note and pathology report, from 07/27/2015. LE POLISHER documented in this encounter Plan of Treatment Upcoming Encounters Date Type Specialty Care Team Description 04/23/2022 Office Visit Cardiovascular Disease Blas Peck M.D. [address] [place] [phone] (Wo rk) documented as of this encounter Visit Diagnoses Not on filedocumented in this encounter Additional Health Concerns Assessment Noted Time PHQ-9 Depression Total Score: 5 12/23/2016 8:36 AM CDT documented as of this encounter Care Teams Property Management Accountant Relationship Specialty Start Date End Date Franco Molina M.D. PCP - General 09/25/16 07/27/19 documented as of this encounter
--- OUTSIDE RECORDS SUMMARY | 2022-02-17 12:25 | XMS_ITS | Encounter Summary ---
:1950 Author Organization [facility] Address [address] [place] [address] Care Team Providers Name Role Phone Franco Molina M.D. Primary Care Provider Encounter Details Date Type Department Care Team Description 02/10/2017 Abstract Department of Family Medicine, Provider, Historical [facility], in [place], [place] [address] [place] [address] [facility] [phone] Social History Tobacco Use Types Packs/Day Years [...] Visit Cardiovascular Disease Blas Peck M.D. [address] [place] [phone] (Wo rk) documented as of this encounter Procedures Procedure Name Priority Date/Time Associated Diagnosis Comme nts HEMOGLOBIN A1C, B Routine 07/14/2016 8:55 AM Resu lts for this CDT procedure are i n the results section. LIPID PANEL, S Routine 07/14/2016 8:55 AM Results for this CDT procedure are i n the results section. documented in this encounter Results Lipid Panel (07/14/2016 8:55 AM CDT) [facility] Method Time Signature EXT 131 Not available EXTERNAL Cholesterol, NON-INTERFACE Total, S D LAB EXT 76 Not available EXTERNAL Triglycerides, NON-INTERFACE S D LAB EXT 55 Not available EXTERNAL Cholesterol, NON-INTERFACE HDL, S D LAB EXT Calculated 61 Not available EXTERNAL LDL NON-INTERFACE D LAB Specimen (Source) Anatomical Collection Method Collection Time Re ceived Time Location / / Volume Laterality Blood (Blood, 07/14/2016 8:55 AM Venous) CDT Historical Provider LAB BLOOD NON ADD-ON Performing Organization Address [facility] Phon e Number EXTERNAL NON-INTERFACED LAB [address] [place], [place] [address] Hemoglobin A1c (07/14/2016 8:55 AM CDT) [facility] Method Time Signature EXT Hemoglobin 6.8 Not available EXTERNAL A1c, B NON-INTERFACE D LAB Specimen (Source) Anatomical Collection Method Collection Time Re ceived Time Location / / Volume Laterality Blood (Blood, 07/14/2016 8:55 AM Venous) CDT Historical Provider LAB BLOOD ADD-ON Performing Organization Address [facility] Phon e Number EXTERNAL NON-INTERFACED LAB [address] [place], [place] [address] documented in this encounter Visit Diagnoses Not on filedocumented in this encounter Additional Health Concerns Assessment Noted Time PHQ-9 Depression Total Score: 5 12/23/2016 8:36 AM CDT documented as of this encounter Care Teams Mortgage Loan Specialist Relationship Specialty Start Date End Date Franco Molina M.D. PCP - General 09/25/16 07/27/19 documented as of this encounter
--- OUTSIDE RECORDS SUMMARY | 2022-02-17 12:25 | XMS_ITS | Encounter Summary ---
:1950 Author Organization [facility] Address [address] [place] [address] Care Team Providers Name Role Phone Franco Molina M.D. Primary Care Provider Reason for Visit Reason Comments Communication Encounter Details Date Type Department Care Team Description 05/08/2017 Clinical Communication Department of Nabeel Molina M.D. Communication [facility] Internal [facility] [phone] [address] (Fax) [phone] Social History Tobacco Use Types Packs/Day Years [...] Miscellaneous Notes Telephone Encounter - Estefany Mark L.PMichelleNMichelle - 05/08/2017 2:07 PM CST Patient notified of Dr. Molina's recommendations. Patient expressed understanding. OR STAFF CONSULTANT Telephone Encounter - Franco Molina M.D. - 05/08/2017 1:51 PM CST Please call him. He should take BuSpar, fluoxetine and metoprolol with sip of water on the morning of screening colonoscopy, 05/11/2017. Because of NPO status he should not take glimepiride and metformin. He should restart all medications after completion of screening colonoscopy. OR STAFF CONSULTANT documented in this encounter Plan of Treatment Upcoming Encounters Date Type Specialty Care Team Description 04/23/2022 Office Visit Cardiovascular Disease Blas Peck M.D. [address] [place] [phone] (Wo rk) documented as of this encounter Visit Diagnoses Not on filedocumented in this encounter Additional Health Concerns Assessment Noted Time PHQ-9 Depression Total Score: 5 12/23/2016 8:36 AM CDT documented as of this encounter Care Teams It Lead Relationship Specialty Start Date End Date Franco Molina M.D. PCP - General 09/25/16 07/27/19 documented as of this encounter
--- OUTSIDE RECORDS SUMMARY | 2022-02-17 12:25 | XMS_ITS | Encounter Summary ---
:1950 Author Organization [facility] Address [address] [place] [address] Care Team Providers Name Role Phone Franco Molina M.D. Primary Care Provider Encounter Details Date Type Department Care Team Description 01/11/2017 Abstract Department of Family Medicine in [facility] , [address] [address] Social History Tobacco Use Types Packs/Day Years [...] Visit Cardiovascular Disease Blas Peck M.D. [address] [place] [phone] ([facility]) documented as of this encounter Visit Diagnoses Not on filedocumented in this encounter Additional Health Concerns Assessment Noted Time PHQ-9 Depression Total Score: 5 12/23/2016 8:36 AM CDT documented as of this encounter Care Teams Artifacts Conservator Relationship Specialty Start Date End Date Franco Molina M.D. PCP - General 09/25/16 07/27/19 documented as of this encounter
--- OUTSIDE RECORDS SUMMARY | 2022-02-17 12:25 | XMS_ITS | Encounter Summary ---
:1950 Author Organization [facility] Address [address] [place] [address] Care Team Providers Name Role Phone Franco Molina M.D. Primary Care Provider Encounter Details Date Type Department Care Team Description 02/16/2017 Nurse Triage Department of [facility] Tadeo Odonnell R.N. Medicine in [place], ([facility] ) [address] [address] Social History Tobacco Use Types Packs/Day Years [...] Visit Cardiovascular Disease Blas Peck M.D. [address] [place] [phone] (Wo rk) documented as of this encounter Visit Diagnoses Not on filedocumented in this encounter Additional Health Concerns Assessment Noted Time PHQ-9 Depression Total Score: 5 12/23/2016 8:36 AM CDT documented as of this encounter Care Teams Raw Stock Dyeing Machine Tender Relationship Specialty Start Date End Date Franco Molina M.D. PCP - General 09/25/16 07/27/19 documented as of this encounter
--- OUTSIDE RECORDS SUMMARY | 2022-02-17 12:25 | XMS_ITS | Encounter Summary ---
:1950 Author Organization [facility] Address [address] [place] [address] Care Team Providers Name Role Phone Franco Molina M.D. Primary Care Provider Reason for Visit Reason Comments Follow-up DM and other issues Outpatient (Routine) - Closed Specialty Diagnoses / Procedures Referred By Contact Refer red To Contact Franco Molina M.D. [address] [place] [address] Referral ID Status Reason Start Date Expiration Date Visits Requ ested Visits Authorized [id number] Closed 01/23/2017 07/22/2017 1 1 Encounter Details Date Type Department Care Team Description 02/23/2017 Office Visit Department of Franco Molina M.D . 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 Hyperglycemic (HCC); [facility] [address], Irr itable Bowel Syndrome With Constipation; Medicine in [email or web address] [address] Constipation; [facility], [facility], [place] Diverticulosis Colon; [address] [address] Lower Abdominal Pain Unspecified; [place], [place] Polyp Co aron Adenomatous; [phone] Benign Prostatic Hyperplasia Hypertrophy With Obstruction; [phone] Primary Osteoar thritis Hip Bilateral; Coronary Artery Disease; Coronary Arteri al Bypass Graft Status Post Personal History; Hypertensive He art And Chronic Kidney Disease Without Heart Failure And With Stage 2 (Mild) Chronic Kidney Disease; Apnea Sleep Obs tructive; Body Mass Index 34.0 To 34.9 Adult; Anxiety; Panic Disorder Episodic Paroxysmal Anxiety; Hyperlipidemia; High Risk Medic ation Social History [...] Sign Reading Time Taken Comments Blood Pressure 127/66 02/23/2017 8:55 AM EXERCISE SCIENTIST Pulse 71 02/23/2017 8:55 AM EXERCISE SCIENTIST Temperature 36.4 ??C (97.5 ??F) 02/23/2017 8:55 AM EXERCISE SCIENTIST Respiratory Rate 16 02/23/2017 8:55 AM EXERCISE SCIENTIST Oxygen Saturation - - Inhaled Oxygen Concentration - - Weight 104 kg (228 lb 2.8 oz) 02/23/2017 8:55 AM EXERCISE SCIENTIST Height - - Body Mass Index 34.19 01/20/2017 3:46 PM CDT documented in this encounter Progress Franco Holder M.D. - 02/23/2017 9:15 AM CST CHIEF COMPLAINT/ REASON FOR VISIT 1. Follow-up chronic medical problems 2. Discuss test results from 02/19/2017 3. Renew medications HISTORY OF PRESENT ILLNESS Elvis Dawkins is a 66 y.o. male who presents for above complaint. I saw him on 01/20/2017. Hehad blood tests on 02/19/2017. He is having left arm aches and pain since he received influenza immunization on 01/20/2017. Initially his left arm was black and blue less for above a week. He believes it is due to influenza immunization. He denies fever, chills, flu-like symptoms, infection of bleeding from injection area. He is still having problem with lower abdominal discomfort. He has this pain for quite some time. [facility] at [facility] in [place]. He has history of irritable bowel syndrome with constipation. He noted small problem 1 he has constipation. When he strains he notices discomfort in hisrectum. I review gastroenterology recommendation. He does not notice black mucus in his stool. He had normal bowel movement today. He has been eating well. There is no weight loss. Last colonoscopy wasdone on 07/27/2015. He was found to have colon polyps total of 4. According to patient he does not take MiraLax every day because of expense he has been taking Metamucil regularly along with Colace as n eeded. I advised him to try Citrucel as recommended by Gastroenterology from [facility]. 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 He does not monitor blood sugar regularly.He check it once in a while. Blood sugar is high sometimes it is over 200. This morning it was 181. We discussed self-management goal of diabetes mellitus type 2 and hemoglobin A1c goal. Hemoglobin A1cwas 8.7 on 02/19/2017. We discussed diabetes mellitus education. After discussion, he was advised totake metformin 2000 mg by mouth daily with evening meals. He should monitor blood sugar at least once a day before breakfast or when he does not feeling well. He has benign prostatic hypertrophy with lower urinary tract symptoms. He saw Dr. Mcdermott, urologist from [facility] an Dr. Michelle, urologist from [facility]. He is still having problem with lowerurinary tract symptom. Currently he does not take tamsulosin. According to patient he could not get and see Dr. Michelle, urologist from [facility] until March 2017. He does not think urologists are listening to him and address his prostate problem and he does not get follow-up appointment within a reasonable time frame. I review Urologist's recommendation. I do not have record from Dr. Michelle, urologist office from [facility]. I explained the patient that he can call urologist office and requests for follow-up appointment if he continues to have problem. He does not need to wait until regular follow-up appointment time. I offered him to see another urologist. He has not decided yet. He wants me to write a prescription for tamsulosin. He does not recall he had intolerance to cancel listen. He has osteoarthritis of bilateral hip joints which was confirmed by x-ray on 08/28/2016. He saw Orthopedics on 09/15/2016. I explained to him that some of his lower abdominal pain may be related to osteoarthritis of hip joints. We discussed further evaluation and management including orthopedic evaluation. Patient declining at this time. He has coronary artery disease with CABG. He does not have exertional chest pain or dyspnea on exertion. He denies dizziness, lightheadedness, orthopnea, paroxysmal nocturnal dyspnea, palpitation or peripheral edema. He also has hypertension with stage 2 chronic kidney disease. He takes medication regularly. He does not have uremic symptom. He denies dysuria or hematuria. He has obstructive sleep apnea. He saw Dr. Garces neurologist on 06/19/2016. He was advised to have split night sleep study. Patient does no want to undergo sleep study again. He was advised to see , neurologist to discuss different treatment option for obstructive sleep apnea other than weight loss with lifestyle modification. He refuses to see Dr. Davis, neurologist at this time. He has anxiety with panic disorder. He has episode take paroxysmal anxiety. He watches his 2 grandchildren. It makes him happy but he could not keep up with them because of his medical problems. He didnot explain anything detail. He has hyperlipidemia. He takes generic Lipitor 20 mg by mouth daily at bedtime. He does not have side effects or intolerance to generic Lipitor. We discussed blood test results from 02/19/2017. Complete blood count was unremarkable. Basic metabolic profile was unremarkable except for blood glucose 200. Liver function and CK were normal. Hemoglobin A1c was higher than last time. It was 8.2 on 10/17/2016. I review his previous medical records. All of his information including past medical history, past surgical history, medication list and allergies are updated in to new electronic health record at today's visit. I answered all of his questions. He does not have additional questions, concerns, or complaints. MEDICATIONS Current Outpatient Prescriptions Medication Sig Dispense Refill ??? aspirin 81 mg chewable tablet Chew 1 tablet daily. ??? atorvastatin (for_LIPITOR) 20 mg tablet Take 1 tablet by mouth at bedtime. ??? busPIRone (for_BUSPAR) 10 mg tablet Take 2 tablets by mouth 2 (two) times a day. ??? FLUoxetine (for_PROzac) 40 mg capsule Take 1 capsule by mouth every morning. ??? fluticasone (for_FLONASE) 50 mcg/actuation nasal spray Administer 2 sprays into each nostril daily. ??? glimepiride (AMARYL) 4 mg tablet Take 1 tablet by mouth every morning. ??? ipratropium (ATROVENT) 0.03 % nasal spray Administer 2 sprays into each nostril 3 (three) times a day as needed. ??? lisinopril (for_PRINIVIL,ZESTRIL) 2.5 mg tablet Take 1 tablet by mouth every morning. ??? metFORMIN (for_GLUMETZA) 500 mg 24 hr tablet Take 2 tablets by mouth daily with dinner. ??? metoprolol tartrate (for_LOPRESSOR) 25 mg tablet Take 1 tablet by mouth 2 (two) times a day. ??? polyethylene glycol (for_MIRALAX) 17 gram powder packet Take 17 g by mouth daily. ??? PSYLLIUM HUSK (METAMUCIL ORAL) Take 1.7 g by mouth 2 (two) times a day. ??? raNITIdine (for_ZANTAC) 150 mg tablet Take 1 tablet by mouth 2 (two) times a day. ??? tamsulosin (for_FLOMAX) 0.4 mg 24 hr capsule Take 1 capsule by mouth daily. ALLERGIES Allergies Allergen Reactions ??? Sulfamethoxazole-Trimethoprim Swelling SYSTEMS REVIEW Please see history of present illness for pertinent positives, otherwise rest of review of systems negative. PAST MEDICAL / SURGICAL HISTORY Past Medical History: Diagnosis Date ??? Anxiety 01/03/2016 ??? Apnea Sleep Obstructive 08/28/2016 ??? Benign Prostatic Hyperplasia Hypertrophy With Obstruction 01/03/2016 ??? Body Mass Index 34.0 To 34.9 Adult 01/03/2016 ??? Callus [place] Foot 04/25/2016 ??? Coronary Artery Disease 01/03/2016 Coronary Artery Disease (CAD) NOS ??? Diverticulosis Colon 04/25/2016 ??? Hay Fever 01/03/2016 ??? Hyperlipidemia 01/03/2016 ??? 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 Irritable Bowel Syndrome With Constipation 01/03/2016 ??? Overactive Bladder 03/26/2016 ??? Panic Disorder Episodic Paroxysmal Anxiety 01/03/2016 ??? Polyp Colon Adenomatous 02/05/2016 ??? Primary Osteoarthritis Hip Bilateral 08/29/2016 ??? Primary Osteoarthritis Knee Bilateral 12/23/2016 ??? Retention Urinary Chronic 02/14/2016 ??? Rhinitis Allergic 01/03/2016 ??? Spasm Bladder 03/26/2016 Past Surgical History: Procedure Laterality Date ??? CHOLECYSTECTOMY N/A ??? CORONARY ARTERY BYPASS GRAFTS X 4 N/A 05/28/2014 ??? INGUINAL HERNIA REPAIR IMMUNIZATION HISTORY Immunization History Administered Date(s) Administered ??? HZV 2011 ??? Influenza TIV (IM) 02/16/2004, 02/11/2008, 02/10/2011, 01/26/2012, 01/26/2013, 01/24/2014 ??? Influenza, Injectable, Quadrivalent 02/16/2015 ??? Influenza, Seasonal, Injectable 02/16/2004, 02/11/2008, 02/10/2011, 01/26/2012, 01/26/2013, 01/24/2014 ??? Influenza, Unspecified 12/13/2015, 12/13/2015, 01/20/2017 ??? PCV13 2016, 05/29/2016, 05/29/2016 ??? PPSV23 01/26/2012, 01/26/2012 ??? Tdap 08/31/2015, 08/31/2015 ??? influenza high dose (65 years or older) (PF) 12/12/2015, 01/20/2017 HEALTH MAINTENANCE Health Maintenance Topic Date Due ??? Fall Risk Assessment 2016 ??? Foot Exam 04/25/2017 ??? Hemoglobin A1C 05/22/2017 ??? Pneumococcal Low/Med Risk Adult 65+ (2 of 2 - PPSV23) 05/29/2017 ??? Urine Microalbumin 07/14/2017 ??? Depression Screening 12/23/2017 ??? Blood Pressure Check / Re-check 01/20/2018 ??? Ophthalmology Exam 01/26/2018 ??? Creatinine Level 02/19/2018 ??? Lipid Panel 07/14/2021 ??? Colon Cancer Screening 07/26/2025 ??? DTaP,Tdap,and Td Vaccines (2 - Td) 08/30/2025 ??? Influenza Vaccine Completed ??? Hepatitis C Screening Completed ??? Zoster Vaccines (sequence) Completed SOCIAL HISTORY Social History Social History ??? Marital status: Spouse name: N/A ??? Number of children: N/A ??? Years of education: N/A Social History Main Topics ??? Smoking status: Never Smoker ??? Smokeless tobacco: Not on file ??? Alcohol use Not on file ??? Drug use: Unknown ??? Sexual activity: Not on file FAMILY HISTORY Family History Problem Relation Age of Onset ??? Deep vein thrombosis Father ??? Hypertension Mother ??? Diabetes Mother ??? Cataracts Mother ??? Irritable bowel syndrome Mother ??? Colon cancer Mother ??? Irritable bowel syndrome Grandfather ??? Parkinson disease Sister ??? Parkinsons disease Sister VITAL SIGNS BP 127/66 Pulse 71 Temp 36.4 ??C Resp 16 Wt 103.5 kg BMI 34.19 kg/m?? PHYSICAL EXAMINATION GENERAL: He is obese. There is no distress. SKIN: No rash, bruise, or nodules. HEAD: No facial rash, asymmetry, or sinus tenderness. EYES: PERRLA. EOMI. No pallor, icterus, or conjunctivitis. ENT: No nasal congestion, discharge, or bleeding. There is no ear infection or discharge. No mastoidtenderness. Tongue is moist and midline. No oral lesions. LYMPH NODES: No cervical or supraclavicular lymphadenopathy. THYROID: No thyromegaly. No thyroid thrill or bruit. HEART: No carotid bruit. No JVD. Regular rhythm. There is no S3, gallop, murmur, or thrill. LUNGS: Normal respiratory effort. Clear to auscultation. Normal percussion. ABDOMEN: Obese. Moves with respiration. Bowel sounds present. Soft. No rebound tenderness, guarding,or rigidity. No organomegaly. SPINE: No scoliosis or kyphosis. No spinous tenderness or mass. JOINTS: No joint swelling or deformity. EXTREMITIES: No clubbing, cyanosis, edema, infection, or calf tenderness. MENTAL: Alert and oriented x 3. Normal mood and affect. NEURO: Intact cranial nerves. Intact sensory and motor. Grossly nonfocal exam. LAB RESULTS Lab Results Component Value Date WBC 6.9 02/19/2017 HGB 15.7 02/19/2017 HCT 45.5 02/19/2017 MCV 87.7 02/19/2017 PLT 195 02/19/2017 Lab Results Component Value Date NA 136 02/19/2017 K 4.9 02/19/2017 CL 94 (L) 02/19/2017 HCO3 28 02/19/2017 CREATININE 1.03 02/19/2017 EGFR 76 02/19/2017 BUN 11 02/19/2017 ANIONGAP 14 02/19/2017 GLUCOSE 200 (H) 02/19/2017 CALCIUM 9.8 02/19/2017 Lab Results Component Value Date HGBA1C 8.7 (H) 02/19/2017 Lab Results Component Value Date TSH 1.72 07/14/2016 DIAGNOSTIC STUDIES Echocardiogram on 10/26/2015 Final Impressions 1. Transthoracic outreach echo interpretation. 2. Technically challenging images. Contrast not available at the time this echo was performed at this outreach site. 3. Normal left ventricular chamber size. 4. Regional wall motion abnormalities were present (see wall motion graphics). Can not be certain because of suboptimal endocardial definition. 5. Estimated left ventricular ejection fraction; 55 %. 6. Normal left ventricular diastolic function. 7. Normal right ventricular size with mild systolic dysfunction. 8. No significant valvular heart disease. 9. Estimated right ventricular systolic pressure 21 mmHg (systolic blood pressure 110 mmHg). IMPRESSION/ REPORT/ PLAN #1 Diabetes Mellitus Type 2 With Diabetic Neuropathy Hyperglycemic (HCC) It is not controlled. We discussed self-management goal of diabetes mellitus type 2 including diabetes mellitus education. He needs to cut back calories, carbohydrates and portion of meals. He needs todo regular exercise to lose weight and maintain healthy body weight and BMI. I advised him to monitor blood glucose at least once a day before breakfast. It should be noted that he had an eye exam at [facility] recently. He was told his eye exam was OK. I advised him to increase metformin dose,as above. We need to repeat hemoglobin A1c in 3 months. He should contact us if he notice side effects or intolerance from metformin. He was referred to [facility] in [place] for diabetes mellitus education. #2 Irritable Bowel Syndrome With Constipation #3 Constipation #4 Diverticulosis Colon #5 Lower Abdominal Pain Unspecified #6 Polyp Colon Adenomatous He continues to have problem especially when he has constipation. There is no evidence of acute abdomen or bowel obstruction per today exam. I review ethnic studies professor recommendation with him again. He should drink enough fluid and takes Metamucil, Colace and MiraLax as recommended by [facility] roenterologists. He can try Citrucel daily. If he has persistent problems or worsening of symptoms, he should go back to see Gastroenterology at [facility]. #7 Benign Prostatic Hyperplasia Hypertrophy With Obstruction He continues to have lower urinary tract symptoms. We discussed further evaluation and management. He stopped taking tamsulosin. I advised him to follow up with urologist for further evaluation and management of benign prostatic hypertrophy with lower urinary tract symptoms. I explained to him that sometimes patient needs to undergo surgery because they do not have significant response to medication.He would like to restart tamsulosin and he requested me to write the prescription. After long discussion he decided to follow with Dr. Michelle, urologist from [facility]. #8 Primary Osteoarthritis Hip Bilateral Some of his pain may be related to osteoarthritis of hip joints. He declines to see Orthopedics for further evaluation at this time. I advised him to call me if he decided to see Orthopedics. #9 Coronary Artery Disease #10 Coronary Arterial Bypass Graft Status Post Personal History #11 Hypertensive Heart And Chronic Kidney Disease Without Heart Failure And With Stage 2 (Mild) Chronic Kidney Disease He is stable from cardiac standpoint. It he has no angina nor congestive heart failure. His blood pressure is controlled. He will continue current medications and sodium controlled diet. His blood pressure goal is less than 140/90 mm Hg. He will continue cardiovascular risk factor modification. #12 Apnea Sleep Obstructive I review Dr. Garces, neurologist recommendation. He does not want to have another sleep study again. We discuss possible complications related to untreated obstructive sleep apnea. #13 Body Mass Index 34.0 To 34.9 Adult He is aware of his body weight and body mass index. He needs to lose weight. He should cut back calories, carbohydrates, and portions of meals. He needs to do regular exercise. #14 Anxiety #15 Panic Disorder Episodic Paroxysmal Anxiety Some of his symptoms may be related to his anxiety. I advised him to see psychiatrist for medicationmanagement and counseling. He will continue current medications until he sees psychiatrist. #16 Hyperlipidemia He has been taking generic Lipitor without side effect. Recent liver enzymes and CK were normal. We need to check lipid profile every couple months. #17 Renew Medications Following medications of renew: Metformin and tamsulosin. #18 Discuss Test Results I review test results from 02/19/2017. All of his questions were answered. #19 Follow-up Visit I advised him to come back in 3 months for follow-up. He needs following tests prior to next appointment: Complete blood count, basic metabolic profile, AST, ALT, CK, and hemoglobin A1c. Administrative Billing 30 minutes of this 40 minute visit was spent in face to face counseling and coordination of care. CISE SCIENTIST documented in this encounter Plan of Treatment Upcoming Encounters Date Type Specialty Care Team Description 04/23/2022 Office Visit Cardiovascular Disease Blas Peck M.D. [address] [place] [address] [place] [phone] (Wo rk) documented as of this encounter Results (ABNORMAL) Hemoglobin A1c (05/26/2017 10:54 AM EXERCISE SCIENTIST) athologist Signature Hemoglobin A1c, 7.8 (H) 4.2 - 5.6 05/26/2017 [facility] B % 1:39 PM [facility] LAB Comment: Hemoglobin A1c values greater than or eq ual to 6.5 percent are diagnostic for diabetes mellitus. ?? Diagnosis should be confirmed by repeat testing. ??In diabet ic patients, HbA1c goals should be discussed with healthcar e provider. Specimen Anatomical Collection Method Collection Time Receive d Time (Source) Location / / Volume Laterality Blood (Blood, 05/26/2017 10:54 05/26/2017 1:08 Venous) AM EXERCISE SCIENTIST PM EXERCISE SCIENTIST Franco Molina M.D. LAB BLOOD ADD-ON Performing Organization Address City/State/ZIP Code Phon e Number [facility] [address] [place] [address] LAB CK (Creatine Kinase) (05/26/2017 10:54 AM EXERCISE SCIENTIST) athologist Signature Creatine Kinase 301 52 - 336 05/26/2017 [facility] (CK), S U/L 9:26 PM [facility] LAB Specimen Anatomical Collection Method Collection Time Receive d Time (Source) Location / / Volume Laterality Blood (Blood, 05/26/2017 10:54 05/26/2017 9:11 Venous) AM EXERCISE SCIENTIST PM EXERCISE SCIENTIST Franco Molina M.D. LAB BLOOD ADD-ON Performing Organization Address City/State/ZIP Code Phon e Number [facility] [address] [place] [address] P[place] LAB AST (Aspartate Aminotransferase) (05/26/2017 10:54 AM EXERCISE SCIENTIST) [facility] gist Method Time Signature Aspartate 26 8 - 48 05/26/2017 [facility] Aminotransferase U/L 1:50 PM [facility] (AST), [employer] LAB Specimen Anatomical Collection Method Collection Time Receive d Time (Source) Location / / Volume Laterality Blood (Blood, 05/26/2017 10:54 05/26/2017 1:08 Venous) AM EXERCISE SCIENTIST PM EXERCISE SCIENTIST Franco Molina M.Ebony. LAB BLOOD ADD-ON Performing Organization Address City/State/ZIP [facility] Phon e Number [facility] [employer] [address], [place] [address] LAB ALT (Alanine Aminotransferase) (05/26/2017 10:54 AM EXERCISE SCIENTIST) Patholo gist Method Time Signature Alanine 16 7 - 55 05/26/2017 [facility] Aminotransferase U/L 1:31 PM [facility] [employer] (ALT), S SYSTEM- [employer] LAB Specimen Anatomical Collection Method Collection Time Receive d Time (Source) Location / / Volume Laterality Blood (Blood, 05/26/2017 10:54 05/26/2017 1:08 Venous) AM EXERCISE SCIENTIST PM EXERCISE SCIENTIST Franco Lemayo M.D. LAB BLOOD ADD-ON Performing Organization Address City/State/ZIP Code Phon e Number [facility] [employer] [address], [place] [address] LAB (ABNORMAL) BMP (Basic Metabolic Panel) (05/26/2017 10:54 AM EXERCISE SCIENTIST) P athologist Signature Potassium, S 5.0 3.6 - 5.2 05/26/2017 [facility] mmol/L 1:31 PM [facility] Sodium, S 136 135 - 145 05/26/2017 [facility] mmol/L 1:31 PM [facility] [employer] [facility] Chloride, S 96 (L) 98 - 107 05/26/2017 [facility] mmol/L 1:31 PM [facility] LAB Bicarbonate, S 27 22 - 29 05/26/2017 [facility] mmol/L 1:31 PM [facility] LAB Anion Gap 13 7 - 15 05/26/2017 [facility] 1:31 PM [facility] BUN (Blood Urea 9 8 - 24 05/26/2017 [facility] Nitrogen), S mg/dL 1:31 PM [facility] [place] [facility] Creatinine 0.90 0.74 - 05/26/2017 [facility] 1.35 mg/dL 1:31 PM [facility] [place] LAB eGFR 89 >=60 05/26/2017 [facility] Non-Black/Afric mL/min/BSA 1:31 PM [facility] [employer] [place] LAB Comment: ----ADDITIONAL INFORMATION---- Estimated GFR calculated using the 2009 CKD_EPI creatinine equation. eGFR Black/ >90 >=60 mL/min/BSA 05/26/2017 1:31 PM [facility] [place] LAB Comment: ----ADDITIONAL INFORMATION---- Estimated GFR calculated using the 2009 CKD_EPI creatinine equation. Calcium, Total, S 9.7 8.9 - 10.1 mg/dL 05/26/2017 1 :31 PM [facility] [employer] LAB Glucose, S 123 70 - 140 mg/dL 05/26/2017 1:31 PM [facility] [place] [facility] Specimen Anatomical Collection Method Collection Time Receive d Time (Source) Location / / Volume Laterality Blood (Blood, 05/26/2017 10:54 05/26/2017 1:08 Venous) AM [facility] PM [facility] Franco Molina M.D. LAB BLOOD ADD-ON Performing Organization Address City/State/ZIP Code Phon e Number [facility] [employer] [address] [place] [id number] LAB CBC without Differential (05/26/2017 10:54 AM [facility] P athologist Signature Hemoglobin 14.6 13.2 - 05/26/2017 [facility] 16.6 g/dL 11:01 AM [facility] Hematocrit 43.3 38.3 - 05/26/2017 [facility] 48.6 % 11:01 AM [email or web address] LAB Erythrocytes 4.94 4.35 - 05/26/2017 [facility] 5.65 11:01 AM [facility] Xsigo x10(12)/L [email or web address] MCV 87.7 78.2 - 05/26/2017 [facility] 97.9 fL 11:01 AM [facility] [email or web address] RBC Distrib Width 14.2 11.8 - 05/26/2017 [facility] 14.5 % 11:01 AM [facility] Platelet Count 188 135 - 317 05/26/2017 [facility] x10(9)/L 11:01 AM [facility] Leukocytes 7.0 3.4 - 9.6 05/26/2017 [facility] x10(9)/L 11:01 AM [facility] LAB Specimen Anatomical Collection Method Collection Time Receive d Time (Source) Location / / Volume Laterality Blood (Blood, 05/26/2017 10:54 05/26/2017 Venous) AM EXERCISE SCIENTIST 10:54 AM EXERCISE SCIENTIST Franco Molina M.D. LAB BLOOD ADD-ON Performing Organization Address City/State/ZIP Code Phon e Number [facility]- [address] [place] [address] [facility]- [address] [place], [place] [address] [place] [address] [facility] documented in this encounter Visit Diagnoses Diagnosis 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 Hyperglycemic (HCC) Irritable Bowel Syndrome With Constipati on Constipation Diverticulosis Colon Lower Abdominal Pain Unspecified Polyp Colon Adenomatous Benign Prostatic Hyperplasia Hypertrophy With Obstruction Primary Osteoarthritis Hip Bilateral Coronary Artery Disease (Unspecified) Coronary Arterial Bypass Graft Status Po st Personal History Hypertensive Heart And Chronic Kidney Di sease Without Heart Failure And With Stage 2 (Mild) Chronic Kidney Disease Apnea Sleep Obstructive Body Mass Index 34.0 To 34.9 Adult Anxiety Panic Disorder Episodic Paroxysmal Anxie ty Hyperlipidemia High Risk Medication documented in this encounter Additional Health Concerns Assessment Noted Time PHQ-9 Depression Total Score: 5 12/23/2016 8:36 AM CDT documented as of this encounter Care Teams Veneer Splicer Relationship Specialty Start Date End Date Fracno Molina M.D. PCP - General 09/25/16 07/27/19 documented as of this encounter
--- OUTSIDE RECORDS SUMMARY | 2022-02-17 12:25 | XMS_ITS | Encounter Summary ---
:1950 Author Organization [facility] Address [address] [place] [address] Care Team Providers Name Role Phone Franco Molina M.D. Primary Care Provider Reason for Visit Reason Onset Date Comments prior auth 05/05/2017 Encounter Details Date Type Department Care Team Description 05/05/2017 Clinical Communication Department of Radha Donnelly, prior auth Surgery in [place] [address] [address] Social History Tobacco Use Types [...] this encounter Miscellaneous Notes Telephone Encounter - Megan Vu - 05/07/2017 1:03 PM CST REFERRAL SENT PACKAGER Telephone Encounter - Montserrat Holm L.PMichelleN. - 05/05/2017 3:29 PM HEAD PACKAGER Patient Referred to Provider or Facility: _DOH Ordering Provider: VELASQUEZ Appointment Date (if known): _05/11/17 Procedure/Test: colonoscopy Diagnosis (CPT code if Known): _z12.11 PACKAGER Telephone Encounter - Montserrat Holm L.P.N. - 05/05/2017 3:23 PM HEAD PACKAGER SCHEDULED FOR: colonoscopy AT [facility] WITH DR. BARKER DATE of Procedure: 05/11/17 TIME of Procedure: 0815 [email or web address] Prep instructions have been sent to the patient. *Patient instructed to contact their primary provider if taking any blood thinners or diabetic medication at least 10 days prior to procedure for medication instructions. *Patient advised to not take aspirin, naproxen, fish oil, vitamin E, ibuprofen for 10 days prior to the scheduled procedure. *Insurance referral done PACKAGER documented in this encounter Plan of Treatment Upcoming Encounters Date Type Specialty Care Team Description 04/23/2022 Office Visit Cardiovascular Disease Blas Peck M.D. [address] [place] [phone] ([facility]) documented as of this encounter Visit Diagnoses Diagnosis Screening Cancer Colon - Primary documented in this encounter Additional Health Concerns Assessment Noted Time PHQ-9 Depression Total Score: 5 12/23/2016 8:36 AM CDT documented as of this encounter Care Teams Anesthesia Attending Relationship Specialty Start Date End Date Franco Molina M.D. PCP - General 09/25/16 07/27/19 documented as of this encounter
--- OUTSIDE RECORDS SUMMARY | 2022-02-17 12:25 | XMS_ITS | Encounter Summary ---
:1950 Author Organization [facility] Address [address] [place] [address] Care Team Providers Name Role Phone Franco Molina M.D. Primary Care Provider Encounter Details Date Type Department Care Team Description 02/23/2017 Documentation Department [facility] Torey Molina M.D. Internal Medicine in [address] [place] [address] [address] [place] [address] [place] [phone] Social History Tobacco Use Types Packs/Day Years [...] documented as of this encounter Progress Notes Jenniffer Jacobson CMichelleMMichelleAMichelle - 02/23/2017 3:36 PM CST Just FYI Patient says that he is feeling better just wants you to know went and got labs done at [facility] on Thursday at the Er. OPERATOR documented in this encounter Plan of Treatment Upcoming Encounters Date Type Specialty Care Team Description 04/23/2022 Office Visit Cardiovascular Disease Blas Peck M.D. [address] [facility] [place] [phone] (Wo rk) documented as of this encounter Visit Diagnoses Not on filedocumented in this encounter Additional Health Concerns Assessment Noted Time PHQ-9 Depression Total Score: 5 12/23/2016 8:36 AM CDT documented as of this encounter Care Teams Wood Web Weaving Machine Operator Relationship Specialty Start Date End Date Franco Molina M.D. PCP - General 09/25/16 07/27/19 documented as of this encounter
--- OUTSIDE RECORDS SUMMARY | 2022-02-17 12:25 | XMS_ITS | Encounter Summary ---
:1950 Author Organization [facility] Address [address] [place] [address] Care Team Providers Name Role Phone Franco Molina M.D. Primary Care Provider Encounter Details Date Type Department Care Team Description 05/13/2017 Abstract Department of Family Medicine in Provider , Historical Leana Santacruz n [address] [place] [phone] Social History Tobacco Use Types Packs/Day [...] Visit Cardiovascular Disease Blas Peck M.D. [address] [place] [phone] (Wo rk) documented as of this encounter Visit Diagnoses Not on filedocumented in this encounter Additional Health Concerns Assessment Noted Time PHQ-9 Depression Total Score: 5 12/23/2016 8:36 AM CDT documented as of this encounter Care Teams Criminal Investigator Customs Relationship Specialty Start Date End Date Franco Molina M.D. PCP - General 09/25/16 07/27/19 documented as of this encounter
--- OUTSIDE RECORDS SUMMARY | 2022-02-17 12:25 | XMS_ITS | Encounter Summary ---
:1950 Author Organization [facility] Address [address] [place] [address] Care Team Providers Name Role Phone Franco Molina M.D. Primary Care Provider Reason for Visit Reason Comments Communication Encounter Details Date Type Department Care Team Description 05/08/2017 Clinical Communication Department of Estefany Mark [facility] Internal N, L.P.N. Medicine in [address] [place] [phone] [place], [place] [phone] (Work) [phone] Social History Tobacco Use Types Packs/Day Years [...] encounter Miscellaneous Notes Telephone Encounter - Estefany Mark, L.P.N. - 05/08/2017 2:04 PM CST Patient's pre-op information including office note from 04/28/2017 faxed to [facility] for patient's colonoscopy on 05/11/2017. AINER WASHER documented in this encounter Plan of Treatment Upcoming Encounters Date Type Specialty Care Team Description 04/23/2022 Office Visit Cardiovascular Disease Blas Peck M.D. [address] [place] [address] [place], [place] [phone] (Wo rk) documented as of this encounter Visit Diagnoses Not on filedocumented in this encounter Additional Health Concerns Assessment Noted Time PHQ-9 Depression Total Score: 5 12/23/2016 8:36 AM CDT documented as of this encounter Care Teams Green Material Value Added Assessor Relationship Specialty Start Date End Date Franco Molina M.D. PCP - General 09/25/16 07/27/19 documented as of this encounter
--- OUTSIDE RECORDS SUMMARY | 2022-02-17 12:25 | XMS_ITS | Encounter Summary ---
:1950 Author Organization [facility] Address [address] [place] [address] Care Team Providers Name Role Phone Franco Molina M.D. Primary Care Provider Reason for Referral Outpatient (Routine) - Closed Specialty Diagnoses / Procedures Referred By Contact Refer red To Contact Franco Molina M.D. [address] [place] [address] Referral ID Status Reason Start Date Expiration Date Visits Requ ested Visits Authorized [id number] Closed 01/23/2017 07/22/2017 1 1 Encounter Details Date Type Department Care Team Description 01/23/2017 Orders Only Department of Franco Molina M.D . 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 [address] [place] [address] [place] [phone] (Wo rk) Scheduled Referrals Name Type Priority Associated Diagnoses Order S [facility] Internal Outpatient Referral Routine Ex pected: Medicine office 02/23/2017 visit (clinic) (Approximate) , Expires: 02/27/2022 documented as of this encounter Results Hepatic Function Panel (02/19/2017 8:58 AM SURFACE SUPERVISOR) [facility] Method Time Signature Bilirubin, Total, S 0.5 <=1.2 02/19/2017 [facility] mg/dL 12:46 PM [facility] International[facility] Bilirubin, Direct, S <0.2 0.0 - 0.3 02/19/2017 [facility]Y mg/dL 12:46 PM [facility] Aspartate 21 8 - 48 02/19/[address] [facility] Aminotransferase U/L 12:46 PM [facility] [employer] [place] (AST), [facility] Alanine 16 7 - 55 02/19/[address] [facility] Aminotransferase U/L 12:46 PM [facility] [employer] [place] (ALT), [facility] Alkaline 113 45 - 115 02/19/[address] [facility] Phosphatase, S U/L 12:46 PM [facility] Albumin, S 4.5 3.5 - 5.0 02/19/[address] [facility] g/dL 12:46 PM [facility] International[facility] Protein, Total, S 6.9 6.3 - 7.9 02/19/[address] [facility] g/dL 12:46 PM [facility] Specimen Anatomical Collection Method Collection Time Receive d Time (Source) Location / / Volume Laterality Blood 02/19/2017 8:58 AM 7 SURFACE SUPERVISOR 11:08 AM SURFACE SUPERVISOR Franco Molina M.D. LAB BLOOD ADD-ON Performing Organization Address City/State/ZIP Code Phon e Number [facility]CR[facility] RocketJESSICA [address] [facility] [place] [address] LAB (ABNORMAL) Hemoglobin A1c (02/19/2017 8:58 AM SURFACE SUPERVISOR) athologist [facility] Hemoglobin A1c, 8.7 (H) 4.2 - 5.6 02/19/[address] [facility] B % 1:01 PM [facility] LAB Comment: Hemoglobin A1c values greater than or eq ual to 6.5 percent are diagnostic for diabetes mellitus. ?? Diagnosis should be confirmed by repeat testing. ??In diabet ic patients, HbA1c goals should be discussed with healthcar e provider. Specimen Anatomical Collection Method Collection Time Receive d Time (Source) Location / / Volume Laterality Blood 02/19/2017 8:58 AM 7 SURFACE SUPERVISOR 11:09 AM SURFACE SUPERVISOR Franco Molina M.D. LAB BLOOD ADD-ON Performing Organization Address City/State/ZIP Code Phon e Number [facility] [address] [place] [address] LAB CK (Creatine Kinase) (02/19/2017 8:58 AM SURFACE SUPERVISOR) [facility] Creatine Kinase 205 52 - 336 02/19/[address] [facility] (CK), S U/L 9:35 PM [facility] LAB Specimen Anatomical Collection Method Collection Time Receive d Time (Source) Location / / Volume Laterality Blood 02/19/2017 8:58 AM 7 2:05 SURFACE SUPERVISOR PM SURFACE SUPERVISOR Franco Molina M.D. LAB BLOOD ADD-ON Performing Organization Address City/State/ZIP Code Phon e Number [facility]- [address] [place] [address] [facility] LAB CBC with Differential (02/19/2017 8:58 AM SURFACE SUPERVISOR) athologist [facility] Hemoglobin 15.7 13.2 - 02/19/[address] [facility] 16.6 g/dL 9:18 AM [facility] LAB Hematocrit 45.5 38.3 - 02/19/[address] [facility] 48.6 % 9:18 AM [facility] LAB Erythrocytes 5.19 4.35 - 02/19/[address] [facility] 5.65 9:18 AM [facility] HEALTH x10(12)/L SYSTEMScriptPad LAB MCV 87.7 78.2 - 02/19/[address] [facility] 97.9 fL 9:18 AM [facility] RBC Distrib Width 13.6 11.8 - 02/19/[address] [facility] 14.5 % 9:18 AM [facility] Platelet Count 195 135 - 317 02/19/[address] [facility] x10(9)/L 9:18 AM [facility] LAB Leukocytes 6.9 3.4 - 9.6 02/19/[address] [facility] x10(9)/L 9:18 AM [facility] LAB Neutrophils 3.97 1.56 - 02/19/[address] [facility] 6.45 9:18 AM [facility] x10(9)/L SYSTEM- [facility] LAB Lymphocytes 2.04 0.95 - 02/19/[address] [facility] 3.07 9:18 AM [facility] HEALTH x10(9)/L SYSTEM- [facility] LAB Monocytes 0.56 0.26 - 02/19/[address] [facility] 0.81 9:18 AM [facility] HEALTH x10(9)/L SYSTEM- [facility] LAB Eosinophils 0.32 0.03 - 02/19/[address] [facility] 0.48 9:18 AM [facility] x10(9)/L SYSTEM- [facility] LAB Basophils 0.01 0.01 - 02/19/[address] [facility] 0.08 9:18 AM [facility] x10(9)/L SYSTEM- [facility] LAB Specimen Anatomical Collection Method Collection Time Receive d Time (Source) Location / / Volume Laterality Blood 02/19/2017 8:58 AM 7 8:58 SURFACE SUPERVISOR AM SURFACE SUPERVISOR Franco Molina M.D. LAB BLOOD ADD-ON Performing Organization Address City/State/ZIP Code Phon e Number [facility] [address] [place] [address] [facility] [address] [place] [address] [place] [address] , [facility]ITAL[facility] LAB (ABNORMAL) BMP (Basic Metabolic Panel) (02/19/2017 8:58 AM SURFACE SUPERVISOR) P athologist Signature Potassium, S 4.9 3.6 - 5.2 02/19/[address] [facility] mmol/L 12:46 PM [facility] [place] [facility] Sodium, S 136 135 - 145 02/19/[address] [facility] mmol/L 12:46 PM [facility] [place] [facility] Chloride, S 94 (L) 98 - 107 02/19/[address] [facility] mmol/L 12:46 PM [facility] [place] LAB Bicarbonate, S 28 22 - 29 02/19/[address] [facility] mmol/L 12:46 PM [facility] [place] LAB Anion Gap 14 7 - 15 02/19/[address] [facility] 12:46 PM [facility] [place] [facility] BUN (Blood Urea 11 8 - 24 02/19/[address] [facility] Nitrogen), S mg/dL 12:46 PM [facility] [place] [facility] Creatinine 1.03 0.74 - 02/19/[address] [facility] 1.35 mg/dL 12:46 PM [facility] [place] LAB eGFR 76 >=60 02/19/[address] [facility] Non-Black/Afric mL/min/BSA 12:46 PM [facility] SY TEM- an [place] LAB Comment: ----ADDITIONAL INFORMATION---- Estimated GFR calculated using the 2009 CKD_EPI creatinine equation. eGFR-Black/ 88 >=60 mL/min/BSA 2016 12:46 PM [facility] [place] LAB Comment: ----ADDITIONAL INFORMATION---- Estimated GFR calculated using the 2009 CKD_EPI creatinine equation. Calcium, Total, S 9.8 8.9 - 10.1 mg/dL 02/19/2017 12:4 6 PM [facility] [place] LAB Glucose, S 200 (H) 70 - 140 mg/dL 02/19/2017 12:46 PM [facility] [place] LAB Specimen Anatomical Collection Method Collection Time Receive d Time (Source) Location / / Volume Laterality Blood 02/19/2017 8:58 AM 7 SURFACE SUPERVISOR 11:08 AM [facility] Franco Molina M.D. LAB BLOOD ADD-ON Performing Organization Address City/State/ZIP Code Phon e Number 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 PCP - General 09/25/16 07/27/19 documented as of this encounter
--- OUTSIDE RECORDS SUMMARY | 2022-02-17 12:25 | XMS_ITS | Encounter Summary ---
:1950 Author Organization [facility] Address [address] [place] [address] Care Team Providers Name Role Phone Franco Molina M.D. Primary Care Provider Reason for Visit Reason Comments Bladder Problem Bladder/bowel issue - ongoin g Appointment Request (Routine) - Closed Specialty Diagnoses / Procedures Referred By Contact Refer red To Contact Family Medicine Referral ID Status Reason Start Date Expiration Date Visits Requ ested Visits Authorized [id number] Closed 04/28/2017 10/25/2017 1 1 Encounter Details Date Type Department Care Team Description 04/28/2017 Office Visit Department of Franco Molina M.D . Irritable Bowel Syndrome With Constipati on (Primary Dx); [facility] [address], [place]; Medicine in [place] [address] Change In Bowel Habit; [place], [place], [place] Polyp Colon Adenomatous Pers onal History; [address] [address] Benign Prostatic Hyperplasia Hypertrophy With Obstruction; [place], [place] Dysuria; [id number] Diabetes Mellitus Type 2 Wit h Diabetic Neuropathy (HCC); [phone] Coronary Artery Disease; Coronary Arteri al Bypass Graft Status Post Personal History; Hypertensive He art And Chronic Kidney Disease Without Heart Failure And With Stage 2 (Mild) Chronic Kidney Disease; Apnea Sleep Obs tructive; Panic Disorder Episodic Paroxysmal Anxiety Social History Tobacco Use Types Packs/Day Years [...] Sign Reading Time Taken Comments Blood Pressure 111/63 04/28/2017 2:20 PM WIRE SETTER Pulse 81 04/28/2017 2:20 PM WIRE SETTER Temperature 36.7 ??C (98.1 ??F) 04/28/2017 2:20 PM WIRE SETTER Respiratory Rate 20 04/28/2017 2:20 PM WIRE SETTER Oxygen Saturation - - Inhaled Oxygen Concentration - - Weight 104 kg (230 lb 6.1 oz) 04/28/2017 2:20 PM WIRE SETTER Height - - Body Mass Index 34.52 01/20/2017 3:46 PM CDT documented in this encounter Patient Instructions Patient InstructionsFranco Molina M.D. - 04/28/2017 2:30 PM CST We will check urine today. We will contact you with test results. [facility] will contactyou for an appointment to see urologist for consultation regarding your prostate issue. Please sign record release from [facility] regarding colonoscopy done on 07/27/2015. We will schedule colonoscopy at [address] Devi office will contact you with colonoscopy instruction, appointment date and time. SETTER documented in this encounter Progress Notes Franco Molina M.D. - 04/28/2017 2:30 PM CST SUBJECTIVE CHIEF COMPLAINT/REASON FOR VISIT Bowel and bladder issues. HISTORY OF PRESENT ILLNESS Elvis Dawkins is a 67 y.o. male who presents to the clinic today for ongoing bowel and bladder issues. He continues to have problems with bowel movement. He notices changes in size and shape of his stoolfrom day to day. He has history of irritable bowel syndrome and constipation. He sometimes has bowelmovement every day. He takes MiraLAX as needed and Metamucil twice a day. He has abdominal pain mostmornings when he wakes up. His last colonoscopy was done on 07/27/2015 at [facility]. He was found to have 4 colon polyps. He has noticed a change in bowel movement since then. He has had three negative CT scans since 2016. He last saw Gastroenterology at [facility] in August 2016. I reviewed recommendations. He has benign prostatic hypertrophy with lower urinary tract symptoms. He has discomfort with urination. He saw urologists Dr. Mcdermott and Dr. Michelle in the past. His last visit with urology was in July 2016 and was advised to return in 4-6 weeks. He does not want followup appointment with local urology. We discussed having urology consultation at [facility]. Patient has coronary artery disease with coronary artery bypass grafting x 4, hypertension, and stage 2 chronic kidney disease. He denies exertional chest pain or shortness of breath. There was no orthopnea, paroxysmal nocturnal dyspnea, palpitation, or peripheral edema. He has obstructive sleep apneabut does not use sleep machine. There have been no complications during or after previous surgeries. Patient denies any personal or family history intolerance to general anesthesia. He denies any reaction to blood transfusions. Thereis no personal history of hepatitis, jaundice, bleeding disorder, or drug resistant infection like MRSA or VRE. There was no personal history of blood clots in legs or lungs. His father had deep vein thrombosis in his leg after ankle fracture. He has diabetes mellitus type 2 with neuropathy. He checks his blood sugar sparingly, ranging from 80 to 300. There were no hypoglycemic episodes. There are no additional questions, concerns, or complaints. CURRENT MEDICATIONS Current Outpatient Prescriptions Medication Sig Dispense Refill ??? aspirin 81 mg chewable tablet Chew 1 tablet daily. ??? atorvastatin (for_LIPITOR) 20 mg tablet Take 1 tablet by mouth at bedtime. ??? blood-glucose meter [facility] Dispense glucose meter, test strips and lancets covered by the patient insurance. Test 2 times per day. ??? docusate sodium (for_COLACE) 100 mg [...] morning. 90 tablet 3 ??? metFORMIN (for_GLUMETZA) 1,000 mg 24 hr tablet Take 2 tablets (2,000 mg total) by mouth daily with dinner. (Patient taking differently: Take 4,000 mg by mouth daily with dinner. ) 200 tablet 3 ??? metoprolol tartrate (for_LOPRESSOR) 25 [...] by mouth daily. 100 capsule 3 ??? busPIRone (for_BUSPAR) 10 mg tablet Take 2 tablets by mouth 2 (two) times a day. ??? fluticasone (for_FLONASE) 50 mcg/actuation nasal spray [...] 34.0 To 34.9 Adult 01/03/2016 ??? Callus [place] Foot 04/25/2016 ??? Congestion Nasal 01/03/2016 ??? [...] For colon polyps. Repeat in 3 years. [facility]. ??? CORONARY ARTERY BYPASS GRAFTS X 4 05/28/2014 ??? INGUINAL HERNIA REPAIR SOCIAL HISTORY Social History Social History ??? [...] Parkinson disease Sister ??? Parkinsons disease Sister OBJECTIVE VITAL SIGNS Vitals: 04/28/17 1420 BP: 111/63 Patient Position: Sitting Pulse: 81 Temp: 36.7 ??C Resp: 20 Weight: 104.5 kg TempSrc: Temporal PHYSICAL EXAMINATION GENERAL: Patient is sitting. No [...] cervical or supraclavicular lymphadenopathy. PERIPHERAL VESSELS: Good radial pulses. HEART: No carotid bruit. No JVD. Regular rhythm. There is no S3, gallop, murmur or thrill. LUNGS: Normal respiratory effort. Clear to auscultation. Normal percussion. ABDOMEN: Moves with respiration. Bowel sounds present. Soft. No rebound tenderness, guarding or rigidity. No organomegaly. SPINE: No scoliosis or kyphosis. No spinous tenderness or mass. JOINTS: No joint swelling or deformity. No decreased range of motion. EXTREMITIES: No clubbing, cyanosis, edema, infection or calf tenderness. MENTAL: Alert and oriented x 3. Normal mood and affect. NEURO: Intact cranial nerves. Intact sensory and motor. Grossly nonfocal. DIAGNOSTICS LABORATORY: 02/19/2017 08:58 Hemoglobin, B 15.7 Hematocrit 45.5 Erythrocytes 5.19 MCV 87.7 RBC Distrib Width 13.6 Leukocytes 6.9 Platelet Count 195 Neutrophils 3.97 Lymphocytes 2.04 Monocytes 0.56 Eosinophils 0.32 Basophils 0.01 Sodium, S 136 Potassium, S 4.9 Chloride, S 94 (L) Bicarbonate, S 28 Anion Gap 14 Bld Urea Nitrog(BUN), S 11 Creatinine 1.03 Calcium, Total, S 9.8 Glucose 200 (H) eGFR Non- 76 eGFR- 88 Bilirubin, Total 0.5 Bilirubin, Direct, S <0.2 Alanine Aminotransferase (ALT), S 16 Aspartate Aminotransferase (AST), S 21 Alkaline Phosphatase, S 113 Protein, Total, S 6.9 Albumin, S 4.5 Hemoglobin A1c, B 8.7 (H) Creatine Kinase (CK), S 205 ASSESSMENT / PLAN #1 Irritable Bowel Syndrome With Constipation #2 Constipation #3 Change In Bowel Habit #4 Polyp Colon Adenomatous Personal History He continues to have problems with bowel movement. He notices a change in bowel habit since his lastcolonoscopy on 07/27/2015 in [place]. After discussion, it was decided to schedule colonoscopy with Dr. Devi at [facility]. He was advised to use MiraLAX daily, Metamucil twice a day, and Colace as needed. He needs to drink plenty of water. This note serves as a preoperative medical evaluation prior to colonoscopy. The patient is stable from a cardiac and respiratory standpoint. There is no absolute contraindication for planned procedure. We discussed risks, benefits, and alternative therapy. Patient is willing to proceed because the benefits outweigh the risks. He willbe contacted by Dr. Devi's office regarding bowel preparation and medication directions. #5 Benign Prostatic Hyperplasia Hypertrophy With Obstruction He still has lower urinary tract symptoms. After discussion, we referred him to urology at [facility] for further evaluation and management. #6 Dysuria We will check UA with microscopic and urine culture. We will treat with antibiotics if urine cultureis positive. Again, he needs to drink plenty of water and fluids. #7 Diabetes Mellitus Type 2 With Diabetic Neuropathy (HCC) Patient was advised to continue current [employer] diet, regular exercise, and current medication. Need to monitor blood sugar daily in the morning. Self-management goals of diabetesmellitus were reviewed. Need to check hemoglobin A1c every 3 months. #8 Coronary Artery Disease #9 Coronary Arterial Bypass Graft Status Post Personal History He is stable from a cardiac standpoint. There is no angina. Patient does not need to take Nitroglycerin. Need to continue current medications and cardiovascular risk factor modification. #10 Hypertensive Heart And Chronic Kidney Disease Without Heart Failure And With Stage 2 (Mild) Chronic Kidney Disease Blood pressure is controlled. Patient is stable from a cardiac standpoint. Need to continue sodium controlled diet and current medication. Monitor blood pressure regularly at home. Blood pressure goal is less than 140/90 mmHg. Need to continue cardiovascular risk factors modification. #11 Apnea Sleep Obstructive It is not controlled. He does not use CPAP machine. Patient does not want another sleep study. We need to monitor oxygen saturation barium postoperative period. #12 Panic Disorder Episodic Paroxysmal Anxiety Some of his bowel and bladder symptoms may be related to anxiety. He should see psychiatrist for medication management. He will continue Buspar and Prozac for the time being. #13 Today Studies Patient had following studies done today: UA with culture. Patient will be notified with results & recommendations. #14 Followup Visit Return to the clinic as previously scheduled. Administrative Billing 30 minutes of this 40 minute visit was spent in face to face counseling and coordination of care. This document serves as a record of services personally performed by Dr. Franco Molina. It was created on their behalf by Balaji Larios, a trained biomedical engineering supervisor. The creation of this record is based on the scribe's personal observations and the provider's statements to them. This document has been checked and approved by the attending provider. SETTER Franco Molina M.D. - 04/28/2017 2:30 PM CST Please call him. UA is normal. SETTER Franco Molina M.D. - 04/28/2017 2:30 PM CST Please call him. Urine culture is negative. There is no evidence of UTI. SETTER Estefany Mark, L.P.N. - 04/28/2017 2:30 PM CST Patient notified of results. SETTER documented in this encounter Plan of Treatment Upcoming Encounters Date Type Specialty Care Team Description 04/23/2022 Office Visit Cardiovascular Disease Blas Peck M.D. [address] [place] [phone] (Wo rk) documented as of this encounter Procedures Procedure Name Priority Date/Time Associated Diagnosis Comme nts URINALYSIS WITH Routine 04/28/2017 3:23 PM Benign Prostatic Re sults for this MICROSCOPIC IF WIRE SETTER Hyperplasia procedure are in INDICATED, U Hypertrophy With the results Obstruction section. Dysuria BACTERIAL CULTURE, Routine 04/28/2017 3:23 PM Benign Prostatic Results for this AEROBIC + SUSC, WIRE SETTER Hyperplasia procedure ar e in URINE Hypertrophy With the results Obstruction section. Dysuria documented in this encounter Results Bacterial Culture, Aerobic + Susc, Urine Urine, Midstream (04/28/2017 3:23 PM WIRE SETTER) [facility] Method Time Signature Bacterial No growth 04/29/2017 [facility] Culture, after 1 day 4:15 PM [facility] Aerobic, Urine of SYSTEM- [facility] LAB Specimen Anatomical Collection Method Collection Time Receive d Time (Source) Location / / Volume Laterality Urine (Urine, 04/28/2017 3:23 PM 04/28/19 18 Midstream) WIRE SETTER 11:27 PM WIRE SETTER Comment: Specimen Source Site: Urine Franco Molina M.D. LAB MICROBIOLOGY - GENERAL O XIMENA Performing Organization Address City/State/ZIP Code Phon e Number [place] [id number] [place] [address] LAB Urinalysis with Microscopic if Indicated (04/28/2017 3:23 PM WIRE SETTER) athologist Signature Source Midstream 04/28/2017 [facility] 3:30 PM [facility] [place] [facility] Clarity Clear Clear 04/28/2017 [facility] 3:30 PM [facility] LAB Color Yellow 04/28/2017 [facility] 3:30 PM [facility] Comment: ----REFERENCE VALUE---- Colorless Yellow [place] Blood Negative Negative 04/28/2017 3:30 PM WIRE SETTER [facility] [place] [place] [facility] Nitrite Negative Negative 04/28/2017 3:30 PM [facility] Leukocyte Esterase Negative Negative 04/28/2017 3:30 PM CS T [facility] B Protein, U Negative mg/dL 04/28/2017 3:30 PM WIRE SETTER [facility] [place] [facility] Comment: ----REFERENCE VALUE---- Negative Trace Glucose Negative Negative mg/dL 04/28/2017 3:30 PM [facility] Ketones, QL(U) Negative Negative mg/dL 04/28/2017 3:30 PM [facility] [place] [facility] Bilirubin Negative Negative 04/28/2017 3:30 PM [facility] [place] [facility] pH 5.5 5.0 - 8.0 04/28/2017 3:30 PM [facility] [place] [facility] Specific [place] 1.010 1.001 - 1.035 04/28/2017 3:30 PM [facility] [place] [facility] Urobilinogen 0.2 0.2 - 1.0 mg/dL 04/28/2017 3:30 PM [facility] [place] [facility] Specimen Anatomical Collection Method Collection Time Receive d Time (Source) Location / / Volume Laterality Urine (Urine, 04/28/2017 3:23 PM 04/28/19 18 3:27 Clean Catch) WIRE SETTER PM WIRE SETTER Franco Molina M.D. LAB URINE ORDERABLES Performing Organization Address City/State/ZIP Code Phon e Number [facility] [address] [facility] [place] [address] [place] [facility] [address] [place], [place] [address] , [facility] [place] [facility] documented in this encounter Visit Diagnoses Diagnosis Irritable Bowel Syndrome With Constipati on - Primary Constipation Change In Bowel Habit Polyp Colon Adenomatous Personal History Benign Prostatic Hyperplasia Hypertrophy With Obstruction Dysuria 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 (HCC) Coronary Artery Disease (Unspecified) Coronary Arterial Bypass Graft Status Po st Personal History Hypertensive Heart And Chronic Kidney Di sease Without Heart Failure And With Stage 2 (Mild) Chronic Kidney Disease Apnea Sleep Obstructive Panic Disorder Episodic Paroxysmal Anxie ty documented in this encounter Additional Health Concerns Assessment Noted Time PHQ-9 Depression Total Score: 5 12/23/2016 8:36 AM CDT documented as of this encounter Care Teams Crater And Packer Relationship Specialty Start Date End Date Franco Molina M.D. PCP - General 09/25/16 07/27/19 documented as of this encounter
--- OUTSIDE RECORDS SUMMARY | 2022-02-17 12:25 | XMS_ITS | Encounter Summary ---
:1950 Author Organization [facility] Address [address] [place] [address] Care Team Providers Name Role Phone Franco Molina M.D. Primary Care Provider Reason for Visit Reason Onset Date Comments Appointment 02/20/2017 Encounter Details Date Type Department Care Team Description 02/20/2017 Clinical Communication Department of [facility] Ally Guzman [facility] Medicine Brayden Hagan L.P.N. [facility], [address] [place], [place] [address] [address] [place], [place] [phone] (Work) [phone] Social History Tobacco Use Types Packs/Day Years [...] encounter Miscellaneous Notes Telephone Encounter - Ally Gumzan L.P.N. - 02/20/2017 9:41 AM ASSET PROTECTION MANAGER Left message for patient. T PROTECTION MANAGER documented in this encounter Plan of Treatment Upcoming Encounters Date Type Specialty Care Team Description 04/23/2022 Office Visit Cardiovascular Disease Blas Peck M.D. [address] [place], [place] [phone] (Wo rk) documented as of this encounter Visit Diagnoses Not on filedocumented in this encounter Additional Health Concerns Assessment Noted Time PHQ-9 Depression Total Score: 5 12/23/2016 8:36 AM CDT documented as of this encounter Care Teams It Security Consulting Director Relationship Specialty Start Date End Date Franco Molina M.D. PCP - General 09/25/16 07/27/19 documented as of this encounter
--- OUTSIDE RECORDS SUMMARY | 2022-02-17 12:25 | XMS_ITS | Encounter Summary ---
:1950 Author Organization [facility] Address [address] [place] [address] Care Team Providers Name Role Phone Franco Molina M.D. 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 0 09/ 07/09/2020 tablet atorvastatin Take 1 tablet by 0 07/17/20162017 (for_LIPITOR) 20 mg mouth at bedtime. tablet blood-glucose meter Dispense glucose 0 05/23/2015 08/11/2018 [facility] [place], test strips and lancets covered by [...] tablet every morning. metFORMIN Take 2 tablets 200 tablet 3 02/23/2017 05/28/2017 (for_GLUMETZA) 1,000 mg (2,000 mg total) by 24 hr tablet mouth daily with dinner. [...] Disease Blas Peck M.D. [address] [place], [place] [phone] (Wo rk) documented as of this encounter Procedures Procedure Name Priority Date/Time Associated Diagnosis Comme nts CBC WITHOUT Routine 05/26/2017 10:54 Irritable Bowel Results for this DIFFERENTIAL, B AM TANKERMAN Syndrome With procedure a re in Constipation the results Constipation section. 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 ASPARTATE Routine 05/26/2017 10:54 High Risk Medic ation Results for this AMINOTRANSFERASE (AST), AM TANKERMAN Hyperlipidemia pr ocedure are in S/P the results section. HEMOGLOBIN A1C, B Routine 05/26/2017 10:54 Diabetes Mellitus R esults for this AM TANKERMAN Type 2 With Diabetic procedu re are in Neuropathy the results Hyperglycemic (HCC) section. CREATINE KINASE (CK), S Routine 05/26/2017 10:54 High Ri sk Medication Results for this AM TANKERMAN Hyperlipidemia procedure are in the results section. BASIC METABOLIC PANEL, Routine 05/26/2017 10:54 Diabetes Melli tus Results for this S/P AM TANKERMAN Type 2 With Diabetic procedu re are in Neuropathy the results Hyperglycemic (H CC) section. High Risk Medica tion Hyperlipidemia documented in this encounter Results (ABNORMAL) Hemoglobin A1c (05/26/2017 10:54 AM TANKERMAN) P athologist Signature Hemoglobin A1c, 7.8 (H) 4.2 - 5.6 05/26/2017 [facility] B % 1:39 PM [facility] Comment: Hemoglobin A1c values greater than or eq ual to 6.5 percent are diagnostic for diabetes mellitus. ?? Diagnosis should be confirmed by repeat testing. ??In diabet ic patients, HbA1c goals should be discussed with healthcar e provider. Specimen Anatomical Collection Method Collection Time Receive d Time (Source) Location / / Volume Laterality Blood (Blood, 05/26/2017 10:54 05/26/2017 1:08 Venous) AM TANKERMAN PM TANKERMAN Franco Molina M.D. LAB BLOOD ADD-ON Performing Organization Address City/State/ZIP Code Phon e Number [facility] [place] [address] [place] [address] LAB CK (Creatine Kinase) (05/26/2017 10:54 AM TANKERMAN) P athologist Signature Creatine Kinase 301 52 - 336 05/26/2017 [facility] (CK), S U/L 9:26 PM [facility] LAB Specimen Anatomical Collection Method Collection Time Receive d Time (Source) Location / / Volume Laterality Blood (Blood, 05/26/2017 10:54 05/26/2017 9:11 Venous) AM TANKERMAN PM TANKERMAN Franco Molina M.D. LAB BLOOD ADD-ON Performing Organization Address City/State/ZIP Code Phon e Number [facility] [address] [place] [address] [place] [facility] AST (Aspartate Aminotransferase) (05/26/2017 10:54 AM TANKERMAN) Patholo gist Method Time Signature Aspartate 26 8 - 48 05/26/2017 [facility] Aminotransferase U/L 1:50 PM [facility] Fetchnotes (AST)[facility] [employer] [facility] [place] LAB Specimen Anatomical Collection Method Collection Time Receive d Time (Source) Location / / Volume Laterality Blood (Blood, 05/26/2017 10:54 05/26/2017 1:08 Venous) AM TANKERMAN PM TANKERMAN Phunt Phyo M.D. LAB BLOOD ADD-ON Performing Organization Address City/State/ZIP Code Phon e Number [facility] [place] [address] [place] [address] LAB ALT (Alanine Aminotransferase) (05/26/2017 10:54 AM [facility]) Patholo gist Method Time Signature Alanine 16 7 - 55 05/26/2017 [facility] Aminotransferase U/L 1:31 PM [facility] Fetchnotes (ALT), S [facility] Specimen Anatomical Collection Method Collection Time Receive d Time (Source) Location / / Volume Laterality Blood (Blood, 05/26/2017 10:54 05/26/2017 1:08 Venous) AM TANKERMAN PM TANKERMAN Franco Molina M.D. LAB BLOOD ADD-ON Performing Organization Address City/State/ZIP Code Phon e Number [facility] [address] [place] [address] LAB (ABNORMAL) BMP (Basic Metabolic Panel) (05/26/2017 10:54 AM [facility]) P athologist Signature Potassium, S 5.0 3.6 - 5.2 05/26/2017 [facility] mmol/L 1:31 PM [facility] Sodium, S 136 135 - 145 05/26/2017 [facility] mmol/L 1:31 PM [facility] [place] [facility] Chloride, S 96 (L) 98 - 107 05/26/2017 [facility] mmol/L 1:31 PM [facility] [place] [facility] Bicarbonate, S 27 22 - 29 05/26/2017 [facility] mmol/L 1:31 PM [facility] Anion Gap 13 7 - 15 05/26/2017 [facility] 1:31 PM [facility] BUN (Blood Urea 9 8 - 24 05/26/2017 [facility] Nitrogen), S mg/dL 1:31 PM [facility] [place] [facility] Creatinine 0.90 0.74 - 05/26/2017 [facility] 1.35 mg/dL 1:31 PM [facility] [place] LAB eGFR 89 >=60 05/26/2017 [facility] Non-Black/Afric mL/min/BSA 1:31 PM [facility] Fetchnotes [facility] EM an [place] LAB Comment: ----ADDITIONAL INFORMATION---- Estimated GFR calculated using the 2009 CKD_EPI creatinine equation. eGFR Black/ >90 >=60 mL/min/BSA 05/26/2017 1:[address] [facility] [place] LAB Comment: ----ADDITIONAL INFORMATION---- Estimated GFR calculated using the 2009 CKD_EPI creatinine equation. Calcium, Total, S 9.7 8.9 - 10.1 mg/dL 05/26/2017 1 :31 PM [facility] Glucose, S 123 70 - 140 mg/dL 05/26/2017 1:31 PM [facility] [place] [facility] Specimen Anatomical Collection Method Collection Time Receive d Time (Source) Location / / Volume Laterality Blood (Blood, 05/26/2017 10:54 05/26/2017 1:08 Venous) AM TANKERMAN PM TANKERMAN Franco Molina M.D. LAB BLOOD ADD-ON Performing Organization Address City/State/ZIP Code Phon e Number [facility] [address] [place] [address] LAB CBC without Differential (05/26/2017 10:54 AM [facility]) P athologist Signature Hemoglobin 14.6 13.2 - 05/26/2017 [facility] 16.6 g/dL 11:01 AM [facility] Hematocrit 43.3 38.3 - 05/26/2017 [facility] 48.6 % 11:01 AM [facility] Erythrocytes 4.94 4.35 - 05/26/2017 [facility] 5.65 11:01 AM [facility] x10(12)/L [facility] MCV 87.7 78.2 - 05/26/2017 [facility] 97.9 fL 11:01 AM [facility] RBC Distrib Width 14.2 11.8 - 05/26/2017 [facility] 14.5 % 11:01 AM [facility] Platelet Count 188 135 - 317 05/26/2017 [facility] x10(9)/L 11:01 AM [facility] Leukocytes 7.0 3.4 - 9.6 05/26/2017 [facility] x10(9)/L 11:01 AM [facility] Specimen Anatomical Collection Method Collection Time Receive d Time (Source) Location / / Volume Laterality Blood (Blood, 05/26/2017 10:54 05/26/2017 Venous) AM TANKERMAN 10:54 AM TANKERMAN Franco Molina M.D. 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 PCP - General 09/25/16 07/27/19 documented as of this encounter
--- OUTSIDE RECORDS SUMMARY | 2022-02-17 12:25 | XMS_ITS | Encounter Summary ---
:1950 Author Organization [facility] Address [address] [place] [address] Care Team Providers Name Role Phone Franco Molina M.D. Primary Care Provider Reason for Visit Reason Comments Communication Encounter Details Date Type Department Care Team Description 05/28/2017 Clinical Communication Department of Brea Andrade Co mmunication Laboratory Medicine in [facility] [place], [place] [address] [place] [phone] Social History Tobacco Use Types Packs/Day [...] Visit Cardiovascular Disease Blas Peck M.D. [address] [place], [place] [phone] (Wo rk) documented as of this encounter Visit Diagnoses Not on filedocumented in this encounter Additional Health Concerns Assessment Noted Time PHQ-9 Depression Total Score: 5 12/23/2016 8:36 AM CDT documented as of this encounter Care Teams Hearing Aid Specialist Relationship Specialty Start Date End Date Franco Molina M.D. PCP - General 09/25/16 07/27/19 documented as of this encounter
--- OUTSIDE RECORDS SUMMARY | 2022-02-17 12:26 | XMS_ITS | Encounter Summary ---
:1950 Author Organization [facility] Address [address] [place] [address] Care Team Providers Name Role Phone Unavailable Primary Care Provider Unavailable Encounter Details Date Type Department Care Team Description 06/23/2016 Hospital Encounter HX [facility] UROLOGY Thomas Powell, THERAPY ASSISTANT, C.N.P. [address] [place] [phone] (Wo rk) Social History Tobacco Use [...] Sign Reading Time Taken Comments Blood Pressure 134/65 06/23/2016 8:18 AM CDT Pulse 71 06/23/2016 8:18 AM CDT Temperature - - Respiratory Rate - - Oxygen Saturation - - Inhaled Oxygen Concentration - - Weight - - Height 172 cm (5' 7.72) 06/23/2016 8:18 AM CDT Body Mass Index - - documented in this encounter Medications at Time of Discharge Medication Sig Dispensed Refills Start Date End Date PSYLLIUM HUSK Take 1.7 g by mouth at 0 04/25/2016 (METAMUCIL ORAL) bedtime. aspirin 81 mg chewable Chew 1 tablet daily. 0 07/09/2020 tablet blood-glucose meter Dispense glucose 0 05/23/2015 08/11/2018 misc meter, test strips and lancets covered by the patient insurance. Test 2 times per day. fluticasone Administer 2 sprays 0 03/26/201606/11 (for_FLONASE) 50 into each nostril mcg/actuation nasal daily. spray ipratropium (ATROVENT) Administer 2 sprays 0 03/1406/22/2017 0.03 % nasal spray into each nostril 3 (three) times a day as needed. lisinopril Take 1 tablet by mouth 0 04/10/2016 (for_PRINIVIL,ZESTRIL) every morning. 2.5 mg tablet metoprolol tartrate Take 1 tablet by mouth 0 05/201606/18/2017 (for_LOPRESSOR) 25 mg 2 (two) times a day. tablet tamsulosin (for_FLOMAX) Take 1 capsule by 0 06/2302/23/2017 0.4 mg 24 hr capsule mouth daily. documented as of this encounter Progress Notes Layne Powell, BRIAN, R.N. - 06/23/2016 7:52 AM CDT [id number] CHIEF COMPLAINT/REASON FOR VISIT Prostatitis and history of BPH. HISTORY OF PRESENT ILLNESS Elvis is a pleasant 66-year-old male here today for a recheck of his prostatitis and BPH. He states he has had some very uncomfortable days. He states that his abdomen feels raw on the inside. He states that when he takes a couple Flomax that will help his stream and help his pain to feel better. At his last visit he was given a prescription for doxycycline for 3 weeks which he took for a short time and did not feel he had any improvement and then discontinued the medication. He was found by Dr. Mcdermott to not have an obstructive prostate but he states that he has a very weak stream and it occasionally is split. He also has some trouble with phimosis and he states that he keeps his foreskin pulled back at all times. Discussed that this is not recommended but he states he has been doing this for years and would like to keep things the same. He is not interested in a circumcision. MEDICATIONS Amaryl 4 mg oral tablet 1 tablet daily. Aspirin 81 mg 1 tablet daily. Atorvastatin 20 mg 1 tablet at bedtime. Atrovent 21 mcg inhalation nasal spray 2 sprays in both nostrils 3 times a day. BuSpar 5 mg oral tablet 1 tab 3 times a day. Fluoxetine 20 mg oral tablet 2 tablets daily Fluticasone 50 mcg per inhalation nasal spray 2 sprays in both nostrils daily. Lisinopril 2.5 mg oral tablet 1 tablet daily. Metamucil daily. Metoprolol tartrate 25 mg oral tablet 1 tablet 2 times a day. Ranitidine 150 mg oral tablet 1 tablet 2 times a day. ALLERGIES Bactrim. PAST MEDICAL/SURGICAL HISTORY Anxiety, obstructive sleep apnea, BPH without obstruction, obesity, coronary artery bypass graft x4 diverticulosis, type 2 diabetes, overactive bladder, panic disorder. VITAL SIGNS Temperature 37.0, heart rate 71, blood pressure 134/65. Not a tobacco user. PHYSICAL EXAMINATION GENERAL: Well-developed, well-nourished, well-groomed 66-year-old male in no acute distress. He is alert, cooperative, and oriented x3. HEAD: Normal appearance without abnormalities. NECK: Symmetrical and supple. CARDIAC: Regular rate regular rhythm. RESPIRATORY: Respirations unlabored. Normal respiratory rate. Normal respiratory movement. ABDOMEN: Soft, nontender, nondistended. DIAGNOSTICS Uroflow was performed. Patient voided 71 mL over 21 seconds. Peak flow was 5.7 mL/second. Average flow rate 3.3 mL/second. IMPRESSION/REPORT/PLAN 1. Benign prostatic hypertrophy. 2. Possible bladder spasms. Since he gets relief from taking his Flomax daily he is given a prescription to continue this 1 capsule daily. I would like to see him back in approximately 2 weeks. We discussed that if this is prostatitis this is something that can take a long time to have relief from. He is encouraged to take ibuprofen or Tylenol as needed for the pain. He states that when he was on Detrol that did not help his symptoms. He may need another cystoscopy with Dr. Mcdermott depending on how his symptoms change with daily Flomax. All of his questions are answered today. Layne Powell, N.Hugh./shaylee Electronically Signed By: LAYNE POWELL APRN, RN On: 06/26/2016 11:09 AM Source: [facility] MHSDOLBEYNONRADSYS Document Id: [id number] documented in this encounter Miscellaneous Notes Miscellaneous - Amaya Rivera L.P.N. - 06/23/2016 8:19 AM CDT Urology AUA/BPH Symptom Score Urology AUA/BPH Symptom Score Entered On: 06/23/2016 8:23 CDT Performed On: 06/23/2016 8:19 CDT by AMAYA RIVERA LPN Urology AUA/BPH Symptom Score Emptying Bladder After Urinating : More than half the time Urinate 2 Hours After Urinating : Almost always Stop/Start Again When Urinating : More than half the time Difficult to Postpone Urination : About half the time Weak Urinary Stream : About half the time Push/Strain to Begin Urination : Not at all Up to Urinate at Night : 5 or more times Total Symptom Score : 24 Feel About Urinary Condition : Mixed AMAYA RIVERA LPN - 06/23/2016 8:19 CDT Source: [facility] [employer] Document Id: [id number] CDT!11 Miscellaneous - Amaya Rivera L.P.N. - 06/23/2016 8:18 AM CDT Adult Refrigeration Unit Repairer Intake/History Adult Refrigeration Unit Repairer Intake/History Entered On: 06/23/2016 8:19 CDT Performed On: 06/23/2016 8:18 CDT by AMAYA RIVERA LPN Intake Chief Complaint : recheck prostate, Temperature Core : 37.0 DegC(Converted to: 98.6 DegF) Peripheral Pulse Rate : 71 /min Heart Rhythm : Regular Systolic Blood Pressure : 134 mmHg Diastolic Blood Pressure : 65 mmHg NIBP Mean : 88 mmHg BP Location : Left upper extremity Blood Pressure Cuff Size : Large Height : 172 cm(Converted to: 5 ft 8 inch(es), 68 inch(es)) AMAYA RIVERA [facility] 06/23/2016 8:18 CDT General Info Information Given By : Patient Languages : Khmer Is Patient Female and 13-50 no hysterectomy : No AMAYA RIVERA [facility] 06/23/2016 8:18 CDT Subjective Pain Symptoms : Yes AMAYA RIVERA [facility] 06/23/2016 8:18 CDT Pain Scale Pain Scale Verbal 0-10 : Open AMAYA RIVERA [facility] 06/23/2016 8:18 CDT Pain Pain Assessment Grid Pain 1 Pain 2 Location : Abdomen Groin Laterality : Other: lower AMAYA RIVERA [facility] 06/23/2016 8:18 CDT AMAYA RIVERA [facility] 06/23/2016 8:18 CDT Dependent Habits Exposure to Tobacco Smoke : Other: Never Smoking Status : Never smoker Tobacco 2A : No Tobacco Use/Currently Using : No Tobacco Use/Last 30 Days : No Tobacco Use/Last 12 months : No AMAYA RIVERA [facility] 06/23/2016 8:18 CDT Source: [place] Document Id: [id number] CDT!34 documented in this encounter Plan of Treatment Upcoming Encounters Date Type Specialty Care Team Description 04/23/2022 Office Visit Cardiovascular Disease Blas Peck M.D. [address] [place] [phone] (Wo rk) documented as of this encounter Visit Diagnoses Not on filedocumented in this encounter
--- OUTSIDE RECORDS SUMMARY | 2022-02-17 12:26 | XMS_ITS | Encounter Summary ---
:1950 Author Organization [facility] Address [address] [place] [address] Care Team Providers Name Role Phone Ronald Molina M.D. Primary Care Provider Encounter Details Date Type Department Care Team Description 12/23/2016 Hospital Encounter HX [facility] Ronald Molina M.D. [address] [phone] Social History Tobacco Use Types Packs/Day [...] Sign Reading Time Taken Comments Blood Pressure 116/72 12/23/2016 9:22 AM CDT Pulse 68 12/23/2016 8:35 AM CDT Temperature - - Respiratory Rate 16 12/23/2016 8:35 AM CDT Oxygen Saturation - - Inhaled Oxygen Concentration - - Weight 103 kg (227 lb 11.8 oz) 12/23/2016 8:35 AM CDT Height 174 cm (5' 8.5) 12/23/2016 9:22 AM CDT Body Mass Index 34.12 12/23/2016 8:35 AM CDT documented in this encounter Medications at [...] mg mouth at bedtime. tablet blood-glucose meter [facility] Dispense glucose 0 05/2308/11/2018 meter, test strips [...] mouth daily. documented as of this encounter H&P Notes Ronald Molina M.D. - 12/23/2016 8:11 AM CDT [id number] CHIEF COMPLAINT/REASON FOR VISIT 1. Welcome to Medicare annual wellness visit. 2. Review chronic medical problems. 3. Renew medication. HISTORY OF PRESENT ILLNESS Elian is a 66-year-old male who presents to the clinic today for the above complaints. He had multiple evaluations since his last visit on 08/28/2016. He saw MARITZA Mathews in orthopedics on 09/15/2016 for bilateral hip osteoarthritis. It was decided to monitor. He saw Moises Padilla PA-C on 10/20/2016 for multiple issues. He was given Doxycycline for dysuria, likely prostatitis, and advised to see urology. He was restarted on Metformin for uncontrolled diabetes mellitus type 2 [hemoglobin A1c 8.2 on 10/17/2016]. He was also given Miralax for constipation. Patient also saw Rhona Holder CNP on 12/09/2016 for left knee pain and BPH. He was given order for left knee x-ray and orthopedic consult. He was advised to follow with Dr. Michelle, urologist at [facility]. He went and saw Shelia Matamoros PA-C in orthopedics on 12/17/2016 for left knee pain and instability. He also had right ankle pain. He was given prescription for physical therapy. He has not had a chance to go to physical therapy yet. He has been taking Metformin daily and Amaryl daily. He had stomach issues when he was taking two Metformin a day. He has been checking his blood sugar daily, generally ranging from 136 to 168. There were no hypoglycemic episodes. Patient has hypertension and coronary artery disease, status post CABG x 4 in 2014. He denies any chest pain. He feels minor chest pressure occasionally. He notices that he over execrates himself often. His blood pressure is controlled. He had sleep study and did not like being wired up. Dr. Ehsan Garces, Neurologist recommended repeating overnight study with titration and EMG to look for evidence of loss of rapid eye movement atonia or complex rapid eye movement behaviors and try to determine appropriate pressure support. Elian has not made these appointments. He has anxiety. He saw psychiatrist a while ago. He was curious if he can increase medication. He iscurrently on BuSpar 10 mg three times a day and Fluoxetine 40 mg daily in the morning. In terms of his bowel movements, he goes through stages. Drinking bottled water seems to help. He takes Miralax occasionally. He notices that he tightens up when he goes on vacation. His last colonoscopy was done on 07/27/2015 at [facility]. He had four colon polyps. Need to repeat screening c olonoscopy after 07/26/2018. We discussed Medicare annual wellness visit preventive screening services. He answered patient screening questionnaire and safety screen. Mini Cog scoring was done. It is normal. Please see copies scanned into EHR. I reviewed and updated patients medical and surgical history, family history, immunizations, allergies, and medications. He is overdue for eye exam and dental cleaning. There are no additional questions, concerns, or [...] Miralax 17 grams by mouth daily. Metamucil by mouth daily. Ranitidine 150 mg by mouth twice a day. Tamsulosin 0.4 mg by mouth daily. ALLERGIES Bactrim causes swelling. SYSTEMS REVIEW Please see HPI for pertinent positives, otherwise rest of ROS negative. PAST MEDICAL/SURGICAL HISTORY Diabetes mellitus type 2 with neuropathy. Hyperlipidemia. Panic disorder. Anxiety. Obstructive sleep apnea. Hypertension. Coronary artery disease. History of hay fever. Allergic rhinitis. Diverticulosis. Irritable bowel syndrome. Overactive bladder. Bladder spasm. Acute urinary tract infection. BPH with obstruction. Chronic urinary retention. Nasal congestion. Numbness. Elevated BMI. History of colon polyp, tubular adenoma x 3. Status post repair of bilateral inguinal hernia. Status post cholecystectomy. 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 Status post colonoscopy, 07/27/2015. Repeat in 3 years. PREVENTIVE SERVICES Colonoscopy: 07/27/2015. PSA: 01/03/2016. Pneumovax: 01/26/2012. Prevnar: 05/29/2016. Tetanus booster: 08/31/2015. Influenza: 12/13/2015. SOCIAL HISTORY He is and lives alone in [place]. He has three daughters. He is [place]. 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 He denies tobacco, drug, or alcohol abuse. FAMILY HISTORY Colon cancer in mother. Cataract in mother. Deep vein thrombosis in father. Diabetes mellitus in mother. Hypertension in mother. Irritable bowel syndrome in mother and grandfather. No family history ofprostate cancer. VITAL SIGNS HEIGHT: 174 cm. WEIGHT: 103.3 kg. BMI: 34.12 kg/m2. TEMP: 36.6 Deg C. PULSE: 68 /min. RESP: 16 /min. SYSTOLIC: 113 mmHg. DIASTOLIC: 27 mmHg. SR: 116/72 mmHg. PHYSICAL EXAMINATION GENERAL: Patient is sitting. No distress. Able to talk without interruption. HEAD: No facial rash, asymmetry, or sinus [...] Bowel sounds present. Soft. No rebound tenderness, guarding, or rigidity. No organomegaly. SPINE: No scoliosis or kyphosis. No spinous tenderness or mass. JOINTS: No joint swelling or deformity. No decreased range of motion. EXTREMITIES: No clubbing, cyanosis, edema, infection, or calf tenderness. GAIT: No abnormal gait. MENTAL: Alert and oriented x 3. Normal mood and affect. NEURO: Grossly nonfocal exam. IMPRESSION/REPORT/PLAN 1. Welcome to Medicare physical exam. We discussed Medicare annual wellness visit preventive screening services. He answered patient screening questionnaire and safety screen. Mini Cog scoring was done. It is normal. Vision testing was done today and showed left 20/30, right 20/30, and both 20/30. Please see copies scanned into EHR. He needs to eat healthy diet and exercise regularly to maintain healthy body weight and BMI. Today BMI is 34.12 kg/m2. PHQ-9 score is 5. His immunization record is up todate. Advised to see eye doctor once a year and dentist every six months. He needs health maintenance exam every year. 2. Diabetes mellitus type 2 with neuropathy. It is uncontrolled. He should be taking two tablets of Metformin a day. He was advised to continue current [employer] diet, regular exercise, and current medications. Need to monitor blood sugar daily. Self-management goals of diabetes mellitus were reviewed. Need to check hemoglobin A1c in 2 months. 3. Hyperlipidemia. There are no side effects from Atorvastatin. Patient was advised to continue low cholesterol, low fat diet, regular exercise, and current medication. Need to check fasting lipid profile again in July 2017. 4. Anxiety. It is fairly stable. Today PHQ-9 score is 5. After discussion, it was decided to increase BuSpar to 20 mg twice a day. He was advised to see psychiatrist for further evaluation and management of his anxiety. He should contact me if there is no improvement or worsening of symptoms or develops side effects to new increased dose. 5. 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 Blood pressure is controlled. Patient is stable from a cardiac standpoint. Need to continue sodium controlled diet and current medication. Monitor blood pressure regularly at home. Blood pressure goal is less than 140/90 mmHg. Need to continue cardiovascular risk factors modification. 6. Coronary artery disease, status post CABG x 4. He is stable from a cardiac standpoint. There is no angina. Patient does not need to take Nitroglycerin. Need to continue current medications and cardiovascular risk factor modification. 7. Constipation. It is intermittent. He was advised to use Miralax daily and Metamucil twice a day. He needs to make sure fiber and water intake are adequate. 8. History of tubular adenoma colon polyp. Need to repeat screening colonoscopy after 07/26/2018. 9. Left knee pain with osteoarthritis of bilateral hips and knees. He should do physical therapy as recommended by orthopedics. He will follow with orthopedics as needed. 10. Benign prostatic hypertrophy with obstruction. He does not have significant lower urinary tract symptoms. He was advised to continue Tamsulosin. He will follow with Dr. Michelle at [facility] on 12/25/2016. Return to the clinic in 2 months for followup with following tests prior to appointment: Fasting BMP, CBC, CK, Hemoglobin A1c, and HFP. This document serves as a record of services personally performed by Dr. Ronald Molina. It was created on their behalf by Balaji Larios, a trained medical services coordinator. The creation of this record is based on the scribe's personal observations and the provider's statements to them. This document has been checked and approved by the attending provider. Ronald Molina M.D./melissa Electronically Signed By: RONALD MOLINA MD On: 12/28/2016 02:13 PM Modified by and Electronically Signed by: RONALD MOLINA MD On: 12/28/2016 02:13 PM Source: [facility] [email or web address] Document Id: [id number] documented in this encounter Procedure Notes Keven Hager L.P.N. - 12/23/2016 8:53 AM CDT Vision Testing Vision Testing Entered On: 12/23/2016 8:54 CDT Performed On: 12/23/2016 8:53 CDT by KEVEN HAGER LPN Vision Testing Corrective Lenses : None Eye, Right w/o Correction : 20/30 Eye, Left w/o Correction : 20/30 Eyes, Both with Correction : 20/30 KEVEN HAGER LPN - 12/23/2016 8:53 CDT Source: [facility] POWERCHART Document Id: [id number] CDT!6 documented in this encounter Miscellaneous Notes Miscellaneous - Chandra Bui L.P.N. - 12/25/2016 8:26 AM CDT Follow up on sleep lab/EMG Document Contains Addenda Addendum by EHSAN GARCES MD MPH on December 26, 2016 13:35:26 CDT From: EHSAN GARCES MD MPH To: Neurology Nurse; Sent: 12/26/2016 13:35:26 CDT Subject: RE: Follow up on sleep lab/EMG ok Addendum by RONALD MOLINA MD on December 25, 2016 09:01:34 CDT From: RONALD MOLINA MD To: EHSAN GARCES MD MPH; Neurology Nurse; Sent: 12/25/2016 09:01:34 CDT Subject: RE: Follow up on sleep lab/EMG Noted. Thank you. From: CHANDRA BUI LPN ( Neurology Nurse) To: EHSAN GARCES MD MPH; RONALD MOLINA MD; Sent: 12/25/2016 08:26:15 CDT Subject: Follow up on sleep lab/EMG Contacted patient in regards to going back for a night of titration and EMG to look for evidence of rapid eye movement atonia or complex rapid eye movement behaviors to determine appropriate pressure support. Patient stated he has alot of other health issues at this time that he wants to work out first. Decline scheduling this test at this time. Source: [facility] POWERCHART Document Id: [id number] Miscellaneous - Ronald Molina M.D. - 12/23/2016 9:26 AM CDT Ambulatory Patient Summary [address], [place] [id number] Visit Information Name: ELIAN DAWKINS [facility] Number: [id number] Current Date: 12/23/2016 09:26:58 Physicians Attending Provider: RONALD MOLINA MD Primary Care Provider: RONALD MOLINA MD ELIAN DAWKINS has been given the following list of [...] two times a day Dose increased on 12/23/2016.This is a CHANGE Routed to [address] [address] FLUoxetine (FLUoxetine 40 mg oral capsule) 1 cap, Oral, once a day (in the morning) fluticasone nasal (fluticasone 50 mcg/inh nasal spray) 2 Kinde(s), Nostrils(Both), once a day glimepiride (Amaryl 4 mg oral tablet) 1 Tablet(s), Oral, once a day (in the morning) with the first meal of the day STOP Metformin. ipratropium nasal (Atrovent 21 mcg/inh nasal spray) 2 Kinde(s), Nostrils(Both), three times a day asneeded for [...] by history / For high blood pressure. polyethylene glycol 3350 (MiraLax oral powder for reconstitution) 17 gm, Oral, once a day 17gm(aboutone heaping tablespoon) dissolved in 4-8oz of water, juice, soda, coffee, or tea / As [facility]. psyllium (Metamucil) 1.7 gm, Oral, two times a day dissolve in 8 oz of fluid / You should try Citrucel if Metamucil doesn't help constipation, as per GI from [facility]. raNITIdine (raNITIdine 150 mg oral tablet) 1 Tablet(s), Oral, two times a day For stomach. tamsulosin (tamsulosin 0.4 mg oral capsule) 1 cap, Oral, once a day Stop Taking the Following Medications: Medication list as of 12-23-16 09:26 Attention: If you have any medications at [...] Electronically Signed By: RONALD MOLINA MD Signed On:23-DEC-2016 09:26:50 Your Allergies & Intolerances Substance Reaction Symptoms [...] Spasm Bladder Active Diverticulosis Colon Active Callus Tuckerman Foot Bilateral Active Osteoarthritis Hip Armando Per X-ray Active 08/28/2016 Arthritis Knee L Active Osteoarthritis Knee Primary Armando Active Hypertension (HTN) And CKD Stage 1-4 & Heart Dis Without CHF Active DM2 Uncontrolled Active Your Upcoming Appointments Date Time Location Provider 01/26/2017 08:00 [facility] Ronald Molina MD Attention: Contact [...] if you dont have one. Go to [email or web address] and click on Create Your Account. Then, follow the directions to complete the online form. Youll be asked for your [facility] number which you can find at the top of this document. Your Goals/Additional instructions: Source: [facility] POWERCHART Document Id: [id number] Miscellaneous - Ronald Molina M.D. - 12/23/2016 9:26 AM CDT Ambulatory Discharge Medication List [address] [id number] Visit Information Name: ELIAN DAWKINS [facility] Number: [id number] Current Date: 12/23/2016 09:26:57 Attending Provider: RONALD MOLINA MD Primary Care Provider: RONALD MOLINA MD ELIAN DAWKINS has been given the following list of [...] two times a day Dose increased on 12/23/2016.This is a CHANGE Routed to [address] [id number] FLUoxetine (FLUoxetine 40 mg oral capsule) 1 cap, Oral, once a day (in the morning) fluticasone nasal (fluticasone 50 mcg/inh nasal spray) 2 Kinde(s), Nostrils(Both), once a day glimepiride (Amaryl 4 mg oral tablet) 1 Tablet(s), Oral, once a day (in the morning) with the first meal of the day STOP Metformin. ipratropium nasal (Atrovent 21 mcg/inh nasal spray) 2 Kinde(s), Nostrils(Both), three times a day asneeded for [...] by history / For high blood pressure. polyethylene glycol 3350 (MiraLax oral powder for reconstitution) 17 gm, Oral, once a day 17gm(aboutone heaping tablespoon) dissolved in 4-8oz of water, juice, soda, coffee, or tea / As recommended byGI from [facility]. psyllium (Metamucil) 1.7 gm, Oral, two times a day dissolve in 8 oz of fluid / You should try Citrucel if Metamucil doesn't help constipation, as per GI from [facility]. raNITIdine (raNITIdine 150 mg oral tablet) 1 Tablet(s), Oral, two times a day For stomach. tamsulosin (tamsulosin 0.4 mg oral capsule) 1 cap, Oral, once a day Stop Taking the Following Medications: Medication list as of 12-23-16 09:26 Attention: If you have any medications at [...] Electronically Signed By: RONALD MOLINA MD Signed On:23-DEC-2016 09:26:50 Additional Information: Source: [employer] Document Id: [id number] Kami - Ronald Molina M.D. - 12/23/2016 9:22 AM CDT Ambulatory Vitals Height Weight Ambulatory Vitals Height Weight Entered On: 12/23/2016 9:22 CDT Performed On: 12/23/2016 9:22 CDT by RONALD MOLINA MD Vitals/Ht/Wt Systolic Blood Pressure : 116 mmHg Diastolic Blood Pressure : 72 mmHg NIBP Mean : 87 mmHg BP Location : Left upper extremity Blood Pressure Cuff Size : Large Height : 174 cm(Converted to: 5 ft 9 inch(es), 69 inch(es)) RONALD MOLINA MD - 12/23/2016 9:22 CDT Source: [employer] Document Id: [id number] CDT!8 Kami - Keven Hager, LMichellePMichelleNMichelle - 12/23/2016 8:47 AM CDT Health Assessment Health Assessment Entered On: 12/23/2016 8:48 CDT Performed On: 12/23/2016 8:47 CDT by KEVEN HAGER LPN Health Assessment Complete Health Assessment Complete or Modified : Annual Health Assessment Annual Health Assessment Completed : Yes KEVEN HAGER LPN - 12/23/2016 8:47 CDT Nutrition Nutrition Risk Factors by History Adult : None KEVEN HAGER LPN - 12/23/2016 8:47 CDT Functional Current Daily Living Assistance : None KEVEN HAGER LPN - 12/23/2016 8:47 CDT Dependent Habits Exposure to Tobacco Smoke : Other: Never Smoking Status : Never smoker Tobacco 2A : No Tobacco Use/Currently Using : No Tobacco Use/Last 30 Days : No Tobacco Use/Last 12 months : No Alcohol Use : No KEVEN HAGER LPN - 12/23/2016 8:47 CDT Psychosocial Domestic Abuse Concerns : None Behavioral Health Screen/Safety Assmt : No Sikh Preference : No qualifying data available. KEVEN HAGER LPN - 12/23/2016 8:47 CDT Advance Directive Advanced Directives : No Advance Directive Additional Information : No KEVEN HAGER LPN - 12/23/2016 8:47 CDT Educ Needs Learning Style Preference Adult Grid Patient : None Family : None KEVEN HAGER LPN - 12/23/2016 8:47 CDT Source: [employer] Document Id: [id number] CDT!27 Miscellaneous - Keven Hager L.P.N. - 12/23/2016 8:36 AM CDT PHQ-9 PHQ-9 Entered On: 12/23/2016 8:42 CDT Performed On: 12/23/2016 8:36 CDT by KEVEN HAGER LPN PHQ-9 Little interest or pleasure in doing things : Several days Feeling down, depressed, or hopeless : Several days Trouble falling or staying asleep, or sleeping too much : Not at all Feeling tired or having little energy : Several days Poor appetite or overeating : Several days Feeling bad about yourself or that you are a failure : Not at all Trouble concentrating on things : Several days Moving or speaking slowly; restless or fidgety : Not at all Thoughts that you would be better off /hurting self : Not at all PHQ-9 Calculated Score : 5 Problems make work, home, or dealing with others : Somewhat difficult KEVEN HAGER LPN - 12/23/2016 8:36 CDT Source: [employer] Document Id: [id number] CDT!13 Miscellaneous - Keven Hager L.P.N. - 12/23/2016 8:35 AM CDT Adult Children'S Aide Intake/History Adult Children'S Aide Intake/History Entered On: 12/23/2016 8:36 CDT Performed On: 12/23/2016 8:35 CDT by KEVEN HAGER LPN Intake Chief Complaint : 1. Welcome to Medicare Temperature Core : 36.6 DegC(Converted to: 97.9 DegF) Peripheral Pulse Rate : 68 /min Respiratory Rate : 16 /min Heart Rhythm : Regular Systolic Blood Pressure : 113 mmHg Diastolic Blood Pressure : 27 mmHg (<LLOW) NIBP Mean : 56 mmHg BP Location : Left upper extremity Blood Pressure Cuff Size : Regular Height : 174 cm(Converted to: 5 ft 9 inch(es), 69 inch(es)) Actual Weight : 103.30 kg(Converted to: 227 lb 12 oz) Weight Source : Standing scale Dosing Weight Clinic : 103.3 kg Clinic BSA : 2.23 Body Mass Index : 34.12 kg/m2 KEVEN HAGER LPN - 12/23/2016 8:35 CDT General Info Information Given By : Patient Preferred Communication Mode : Verbal, Written Languages : Bots[place]an Is Patient Female and 13-50 no hysterectomy : No KEVEN HAGER LPN - 12/23/2016 8:35 CDT Subjective Pain Symptoms : KEVEN Powers LPN - 12/23/2016 8:35 CDT Dependent Habits Exposure to Tobacco Smoke : Other: Never Smoking Status : Never smoker Tobacco 2A : No Tobacco Use/Currently Using : No Tobacco Use/Last 30 Days : No Tobacco Use/Last 12 months : KEVEN Powers LPN - 12/23/2016 8:35 CDT Source: [employer] Document Id: [id number] CDT!32 documented in this encounter Plan of Treatment Upcoming Encounters Date Type Specialty Care Team Description 04/23/2022 Office Visit Cardiovascular Disease Blas Peck M.D. [address] [place] [address] [phone] (Wo [id number]) documented as of this encounter Visit Diagnoses Not on filedocumented in this encounter Additional Health Concerns Assessment Noted Time PHQ-9 Depression Total Score: 5 12/23/2016 8:36 AM CDT documented as of this encounter Care Teams Hooker Inspector Relationship Specialty Start Date End Date Ronald Molina M.D. PCP - General 09/25/16 07/27/19 documented as of this encounter
--- OUTSIDE RECORDS SUMMARY | 2022-02-17 12:26 | XMS_ITS | Encounter Summary ---
:1950 Author Organization [facility] Address [address] [place] [address] Care Team Providers Name Role Phone Unavailable Primary Care Provider Unavailable Encounter Details Date Type Department Care Team Description 07/14/2016 Hospital Encounter HX [facility] Ronald Molina M.D. [address] [facility], [facility] [address] [phone] Social History Tobacco Use Types Packs/Day [...] - - Height 172 cm (5' 7.72) 07/14/2016 8:13 AM CDT Body Mass Index - - [...] documented as of this encounter Miscellaneous Notes Miscellaneous - Ronald Molina M.D. - 07/14/2016 2:13 PM CDT Custom Result Letter July 14, 2016 ELVIS DAWKINS [address] [facility] [phone] Dear ELVIS DAWKINS, There is no protein leak in urine, which is good. Your tests for electrolytes, kidney function, liver, cholesterol, muscle, thyroid and blood counts are normal. Diabetes mellitus is controlled. Congratulations! Please follow up with us as we discussed during your visit or sooner if you have any concerns. If you have questions or concerns, please do not hesitate to call our office. Result Name Current Result Normal Range U Albumin (mg/L) <7.0 07/14/2016 U Creatinine (mg/dL) 90 07/14/2016 40 - 278 Sodium Lvl (mmol/L) 138 07/14/2016 135 - 145 Potassium Lvl (mmol/L) 5.0 07/14/2016 3.6 - 5.2 Chloride (mmol/L) 103 07/14/2016 98 - 107 CO2 (mmol/L) 27 07/14/2016 22 - 29 Glucose Fasting (mg/dL) (H) 152 07/14/2016 70 - 99 Creatinine (mg/dL) 1.03 07/14/2016 0.80 - 1.30 EGFR (MDRD) (mL/min/1.73m2) >60 07/14/2016 >=60 - BUN (mg/dL) 13 07/14/2016 8 - 24 Calcium Lvl (mg/dL) 9.4 07/14/2016 8.8 - 10.3 AST (unit/L) 20 07/14/2016 8 - 48 [id number] (unit/L) 15 07/14/2016 7 - 55 Cholesterol (mg/dL) 131 07/14/2016 - <=199 Trig (mg/dL) 76 07/14/2016 - <=149 HDL (mg/dL) 55 07/14/2016 >=40 - LDL Calculated (mg/dL) 61 07/14/2016 - <=129 CK (U/L) 304 07/14/2016 52 - 336 Hgb A1c (% A1C) (H) 6.8 07/14/2016 - <=5.6 TSH (mIU/L) 1.72 07/14/2016 0.27 - 4.20 Hgb (g/dL) 14.5 07/14/2016 13.5 - 17.5 Hct (%) 42.4 07/14/2016 38.8 - 50.0 WBC (x10(9)/L) 5.6 07/14/2016 3.5 - 10.5 Platelet (x10(9)/L) 176 07/14/2016 150 - 450 Sincerely, RONALD MOLINA [address] [place], [place] [id number] Electronic Signature Electronically Signed By: RONALD MOLINA MD On: July 14, 2016 This document has images extracted. Source: [facility] POWERCHART Document Id: [id number] documented in this encounter Plan of Treatment Upcoming Encounters Date Type Specialty Care Team Description 04/23/2022 Office Visit Cardiovascular Disease Blas Peck M.D. [address] [place], [place] [phone] (Wo rk) documented as of this encounter Procedures Procedure Name Priority Date/Time Associated Comments Diagnosis ALBUMIN, RANDOM, U Routine 07/14/2016 9:17 Result s for this AM CDT procedure are i n the results section. LIPID PANEL, S Routine 07/14/2016 8:55 Results fo r this AM CDT procedure are i n the results section. AUTOMATED DIFFERENTIAL, Routine 07/14/2016 8:55 R esults for this B AM CDT procedure are i n the results section. CBC WITH DIFFERENTIAL, B Routine 07/14/2016 8:55 Results for this AM CDT procedure are i n the results section. ALANINE AMINOTRANSFERASE Routine 07/14/2016 8:55 Results for this (ALT), S/P AM CDT procedure are i n the results section. ASPARTATE Routine 07/14/2016 8:55 Results for this AMINOTRANSFERASE (AST), AM CDT proc edure are in S/P the results section. THYROID-STIMULATING Routine 07/14/2016 8:55 Resul ts for this HORMONE-SENSITIVE AM CDT procedure are in (S-TSH) the results section. HEMOGLOBIN A1C, B Routine 07/14/2016 8:55 Results for this AM CDT procedure are i n the results section. CREATINE KINASE (CK), S Routine 07/14/2016 8:55 R esults for this AM CDT procedure are i n the results section. BASIC METABOLIC PANEL, Routine 07/14/2016 8:55 Re sults for this S/P AM CDT procedure are i n the results section. documented in this encounter Results Microalbumin, Random, Urine (07/14/2016 9:17 AM CDT) Patholo gist Method Time Signature Creatinine, 90 40 - 278 POWERCHART Random, U MGDL HXU Albumin % <7.0 MGL POWERCHART Albumin/Creat Unable to 0 - 17 POWERCHART inine Ratio Calculate MGG Comment: Result is below the linear limi t of test method. Specimen (Source) Anatomical Collection Method Collection Time Re ceived Time Location / / Volume Laterality Urine 07/14/2016 9:17 AM CDT Ronald Molina M.D. LAB URINE ORDERABLES Performing Organization Address City/State/ZIP Code Phon e Number POWERCHART Automated Differential (07/14/2016 8:55 AM CDT) P athologist Signature Absolute 3.43 1.70 - POWERCHART Neutrophils 7.00 109L Lymphocytes 1.42 0.90 - POWERCHART 2.90 X109L Monocytes 0.41 0.30 - POWERCHART 0.90 X109L Eosinophils 0.29 0.05 - POWERCHART 0.50 X109L Absolute 0.03 0.00 - POWERCHART Basophil 0.30 X109L Specimen Anatomical Collection Method Collection Time Receive d Time (Source) Location / / Volume Laterality Blood 07/14/2016 8:55 AM 201 7 8:55 CDT AM CDT Toreyandrea Toreyjovanni Walker LAB BLOOD ADD-ON Performing Organization Address City/State/ZIP Code Phon e Number POWERCHART CBC with Differential (07/14/2016 8:55 AM CDT) P athologist Signature Leukocytes 5.6 3.5 - 10.5 POWERCHART X109L Erythrocytes 4.76 4.32 - 5.72 POWERCHART [id number] Hemoglobin 14.5 13.5 - 17.5 POWERCHART GDL Hematocrit 42.4 38.8 - 50.0 POWERCHART MCV 89.1 81.0 - 95.0 POWERCHART FL HX RDW 14.5 11.8 - 15.6 POWERCHART Platelet Count 176 150 - 450 POWERCHART X109L Specimen (Source) Anatomical Collection Method Collection Time Re ceived Time Location / / Volume Laterality Blood 07/14/2016 8:55 AM CDT Toreyandrea Toreyjovanni Walker LAB BLOOD ADD-ON Performing Organization Address City/[facility] Code Phon e Number POWERCHART (ABNORMAL) Hemoglobin A1c (07/14/2016 8:55 AM CDT) P athologist Signature Hemoglobin A1c, 6.8 (H) <=5.6 A1C POWERCHART B Specimen (Source) Anatomical Collection Method Collection Time Re ceived Time Location / / Volume Laterality Blood 07/14/2016 8:55 AM CDT Toreyandrea Toreyjovanni Walker LAB BLOOD ADD-ON Performing Organization Address City/[facility]/ZIP Code Phon e Number POWERCHART Thyroid-Stimulating Hormone-Sensitive (s-TSH) (07/14/2016 8:55 AM CDT) P athologist Signature TSH 1.72 0.27 - 4.20 POWERCHART (Thyrotropin) MARYLU Comment: Biotin has been identified by the kalp[facility] vo as a potential interfering substance. Higher concentrations of biotin may be found in multivitamins, hair/nail supplements, and workout supplements. If the result does not match clinical observat ions, repeat testing after patient refrains from the use of supplements for at least 12 hours. Specimen (Source) Anatomical Collection Method Collection Time Re ceived Time Location / / Volume Laterality Blood 07/14/2016 8:55 AM CDT Ronald Molina M.D. LAB BLOOD ADD-ON Performing Organization Address City/State/ZIP Code Phon e Number POWERCHART Lipid Panel (07/14/2016 8:55 AM CDT) P athologist Signature Cholesterol, 131 <=199 MGDL POWERCHART Total Comment: 2013 National Lipid Association recommen dations for Total Cholesterol in adults ages 18 and up: Desirable <200 mg/dL Borderline high 200-239 mg/dL High 240 mg/dL 2014 National Lipid Association recommen dations for Total Cholesterol in children ages 2 to 17. Acceptable <170 mg/dL Borderline High 170-199 mg/dL High 200 mg/dL HX HDL 55 >=40 MGDL POWERCHART Comment: 2014 National Lipid Association recommen dations for HDL-C in adults ages 18 and up: Low <40 mg/dL (Men) Low <50 mg/dL (Women) 2014 National Lipid Association recommen dations for HDL-C in children ages 2 to 17. Low <40 mg/dL Borderline Low 40-45 mg/dL Acceptable >45 mg/dL Triglycerides 76 <=149 MGDL POWERCHART Comment: 2014 National Lipid Association recommen dations for Triglycerides in adults ages 18 and up: Normal <150 mg/dL Borderline High 150-199 mg/dL High 200-499 mg/dL Very High 500 mg/dL 2014 National Lipid Association recommen dations for Triglycerides in children ages 2 to 9. Acceptable <75 mg/dL Borderline High 75-99 mg/dL High 100 mg/dL 2014 National Lipid Association recommen dations for Triglycerides in children ages 10 to 17. Acceptable <90 mg/dL Borderline High 90-129 mg/dL High 130 mg/dL Trigs >400mg/dL: Triglycerides >400 mg/ dL. Calculated LDL cholesterol is not valid. Non-HDL cholesterol may be used for risk assessment when triglycerides are >400mg/dL. Calculated LDL 61 <=129 MGDL POWERCHART Comment: 2014 National Lipid Association recommen dations for LDL-C in adults ages 18 and up: Desirable <100 mg/dL Above desirable 100-129 mg/dL Borderline high 130-159 mg/dL High 160-189 mg/dL Very High 190 mg/dL 2014 National Lipid Association recommen dations for LDL-C in children ages 2 to 17. Acceptable <110 mg/dL Borderline High 110-129mg/dL High 130 mg/dL LDL-C >190mg/dL: The markedly elevated LDL level is suggestive of a genetic condition such as familial hypercholesterolemia(FH) or familial defective apolipoprotein B-100 (FDB). Molecular genetic t esting for FH and FDB is available throu [facility]: FH/ADH Genetic Reflex Awad el (test ADHP). Acquired (non-genetic) causes of markedly increased LDL cholesterol include cholestatic liver disease due to the presence of LpX. If a genetic form of hypercholesterolemia is suspected, family studies including biochemical testing fo r lipids (total cholesterol,triglycerides, LDL cholesterol and HDL cholesterol) are recommended. ??Please contact the laboratory at or the on-line test catalog at [facility] for information about how to order these erika ts or to speak with a genetic counselor. Further interpretation would require clinical information. Total Cholesterol/HDL Ratio 2.00 PO WERCHART HXLDL/HDL 1 POWERCHART Specimen (Source) Anatomical Collection Method Collection Time Re ceived Time Location / / Volume Laterality Blood 07/14/2016 8:55 AM CDT Ronald Molina M.D. LAB BLOOD ADD-ON Performing Organization Address City/State/ZIP Code Phon e Number POWERCHART ALT (Alanine Aminotransferase) (07/14/2016 8:55 AM CDT) P athologist Signature Alanine 15 7 - 55 POWERCHART Amniotransferas UNITL e, LD Specimen (Source) Anatomical Collection Method Collection Time Re ceived Time Location / / Volume Laterality Blood 07/14/2016 8:55 AM CDT Ronald Molina M.D. LAB BLOOD ADD-ON Performing Organization Address City/State/ZIP Code Phon e Number POWERCHART CK (Creatine Kinase) (07/14/2016 8:55 AM CDT) P athologist Signature Creatine Kinase 304 52 - 336 UL POWERCHART (CK), S Comment: Reference values have not been established for patients that are <6 years of age. Specimen (Source) Anatomical Collection Method Collection Time Re ceived Time Location / / Volume Laterality Blood 07/14/2016 8:55 AM CDT [facility] M.D. LAB BLOOD ADD-ON Performing Organization Address City/State/ZIP Code Phon e Number POWERCHART AST (Aspartate Aminotransferase) (07/14/2016 8:55 AM CDT) Patholo gist Method Time Signature Aspartate 20 8 - 48 POWERCHART Aminotransferase UNITL (AST), S Specimen (Source) Anatomical Collection Method Collection Time Re ceived Time Location / / Volume Laterality Blood 07/14/2016 8:55 AM CDT [facility] M.D. LAB BLOOD ADD-ON Performing Organization Address [facility] Phon e Number POWERCHART (ABNORMAL) BMP (Basic Metabolic Panel) (07/14/2016 8:55 AM CDT) P athologist Signature Sodium, S 138 135 - 145 POWERCHART MMOLL Potassium, S 5.0 3.6 - 5.2 POWERCHART MMOLL Chloride, S 103 98 - 107 POWERCHART MMOLL CO2 Total 27 22 - 29 POWERCHART MMOLL Comment: Reference ranges have not been established for patients that are <12 months of age. Glucose, Fasting, S 152 (H) 70 - 99 MGDL POWERCH ART BUN (Blood Urea Nitrogen), S 13 8 - 24 MGDL POWERCHART Creatinine 1.03 0.80 - 1.30 MGDL POWERCHART Calcium, Total, S 9.4 8.8 - 10.3 MGDL POWERC WHITE Anion Gap 8 7 - 15 MMOLL POWERCHART HXeGFR (MDRD) >60 >=60 [id number] POWERCHART eGFR Black/ >60 >=60 [id number] POWERCHART Specimen (Source) Anatomical Collection Method Collection Time Re ceived Time Location / / Volume Laterality Blood 07/14/2016 8:55 AM CDT [facility] M.D. LAB BLOOD ADD-ON Performing Organization Address City/State/ZIP Code Phon e Number POWERCHART documented in this encounter Visit Diagnoses Not on filedocumented in this encounter
--- OUTSIDE RECORDS SUMMARY | 2022-02-17 12:26 | XMS_ITS | Encounter Summary ---
:1950 Author Organization [facility] Address [address] [place] [address] Care Team Providers Name Role Phone Unavailable Primary Care Provider Unavailable Encounter Details Date Type Department Care Team Description 08/28/2016 Hospital Encounter HX [facility] Ronald Leong M.D. [address] [phone] Social History Tobacco Use Types Packs/Day [...] Sign Reading Time Taken Comments Blood Pressure 110/60 08/28/2016 8:36 AM CDT Pulse 63 08/28/2016 8:36 AM CDT Temperature - - Respiratory Rate 16 08/28/2016 8:36 AM CDT Oxygen Saturation - - Inhaled Oxygen Concentration - - Weight 103 kg (226 lb 11.9 oz) 08/28/2016 8:36 AM CDT Height 172 cm (5' 7.72) 08/28/2016 8:36 AM CDT Body Mass Index 34.88 09/15/2016 10:41 AM CDT documented in this encounter Medications [...] mg mouth at bedtime. tablet blood-glucose meter [facility] [place]pense glucose 0 05/2308/11/2018 meter, test strips and lancets covered by the patient insurance. Test 2 times per day. FLUoxetine (for_PROzac) Take 1 capsule by [...] (for_PRINIVIL,ZESTRIL) mouth every morning. 2.5 mg tablet metoprolol tartrate Take 1 tablet by 0 06/12/2016 06/18/2017 (for_LOPRESSOR) 25 mg mouth 2 (two) times a tablet day. raNITIdine (for_ZANTAC) Take 1 tablet by 0 201609/08/2017 150 mg tablet mouth 2 (two) times a day. tamsulosin (for_FLOMAX) Take 1 capsule by 0 06/2302/23/2017 0.4 mg 24 hr capsule mouth daily. documented as of this encounter Progress Notes Ronald Molina M.D. - 08/28/2016 8:20 AM CDT [id number] CHIEF COMPLAINT/ REASON FOR VISIT 1. Followup after GI consult. 2. Review chronic medical concerns. HISTORY OF PRESENT ILLNESS Elian is a 66-year-old male who presents to the clinic today for above concerns. When I saw Mr. Dawkins on 08/08/2016 I referred him to GI at [facility] for further evaluation of abdominal pain. He was seen by GI in [place] on 08/25/2016 and it was felt that his abdominal pain/discomfort was due to chronic constipation. It was recommended that he take Miralax daily and if he continues to have issues he should take Metamucil or Citrucel. As he has pain in his hip it was recommended that he try over the counter Salonpas and have the area x- rayed. Elian continues to have intermittent pain in his left hip that radiates to his left low back/flank area. Elian was seen by Dr. Beto Mcdermott on 07/24/2016 for chronic prostatitis with acute exacerbation which was treated with Levaquin 750 mg daily for 3 weeks. He had difficulty tolerating the Levaquin but did complete the course as prescribed. He has followup scheduled with Dr. Mcdermott. He was not sure how helpful the antibiotic was in treating his prostate. Elian had a renal ultrasound on 08/08/2016 for abdominal pain which showed the following: Right superomedial renal parenchymal cyst measures 1.7 x 1.7 x 1.3 cm in diameter. Mild prominence in the left inferior intrarenal collecting system and renal pelvis may represent mild hydronephrosis. No evidence of right-sided hydronephrosis. Bilateral kidneys demonstrate otherwise normal echogenicity with no focal masses seen. The right kidney measures 10.7 cm length and the left kidney measures 10.7 cm in length. A right ureteral jet identified. A left ureteral jet was not identified. The bladderwall measures 5 mm in width which is at the upper limits of normal. Clinical correlation is suggested. No significant post void residual. The bladder demonstrates no additional abnormality. No visualized ascites on the presented views. He had a sleep study and he did not care for being wired up. Elian saw our neurologist, Dr. Cam Garces to discuss the results on 08/14/2016. Dr. Garces recommended the he go back for another overnight study with titration. He is also planning on doing an EMG to look for evidence of loss of rapid eye movement atonia or complex rapid eye movement behaviors and try to determine appropriate pressure support. 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 He states that eventually he will need to get back to doing that and will need supplies. There are no further questions or concerns. MEDICATIONS Reviewed and updated as per the EMR dated 08/28/2016. ALLERGIES Bactrim - swelling. SYSTEMS REVIEW Please see HPI for pertinent positives, otherwise rest of ROS negative. PAST MEDICAL/ SURGICAL HISTORY Reviewed and updated as per the EMR dated 08/28/2016. PREVENTIVE SERVICES Reviewed and updated as per the EMR dated 08/28/2016. SOCIAL HISTORY Reviewed and updated as per the EMR dated 08/28/2016. FAMILY HISTORY Reviewed and updated as per the EMR dated 08/28/2016. VITAL SIGNS HEIGHT: 172 cm. WEIGHT: 102.85 kg. BMI: 34.77 kg/m2. PULSE RATE: 63 /min. RESP RATE: 16 /min. SYSTOLIC: 110 mmHg. DIASTOLIC: 60 mmHg. PHYSICAL EXAMINATION GENERAL: Patient is sitting. No distress. Able to talk without interruption. SKIN: No rash, bruise or nodules noted of visualized skin. EYES: PERRLA. EOMI. No pallor, icterus or conjunctivitis. THYROID: No thyromegaly. No thyroid thrill or bruit. HEART: No carotid bruit. No JVD. Regular rhythm. There is no S3, gallop, murmur or thrill. LUNGS: Normal respiratory effort. Clear to auscultation. Normal percussion. EXTREMITIES: No clubbing, cyanosis, edema, infection or calf tenderness. MENTAL: Alert and oriented x 3. Normal mood and affect. NEURO: Grossly nonfocal. IMPRESSION/ REPORT/ PLAN 1. Chronic constipation. Patient was evaluated by GI at [facility] with recommendations for daily use of MiraLAX. He may add Metamucil or Citrucel if he continues to have difficulty. 2. Chronic prostatitis and BPH with obstruction. He has follow scheduled with Dr. Mcdermott in September 2016. 3. Obstructive sleep apnea. He had polysomnogram and showed mild obstructive sleep apnea. He needs CPAP sleep study as recommended by Dr. Garces. 4. Type II diabetes with neuropathy. It is controlled. Hemoglobin A1C was 6.8% on 07/14/2016. I recommended that he start checking his blood sugars regularly. He was provided with prescriptions for lancets and strips. He was advised to continue current [place] [employer] diet, regular exercise, and current medication. We need to get eye exam records from [facility]. Self-management goals of diabetes mellitus were reviewed. Need to check hemoglobin A1C again in October. 5. Left hip pain. X-ray will be obtained today; patient will be contacted with results and further recommendations. Todays studies include bilateral hip/pelvis x-ray. This document serves as a record of services personally performed by Dr. Ronald Molina. It was created on their behalf by Angela Cuevas, a trained medical investigator. The creation of this record is based on the scribe's personal observations and the provider's statements to them. This document has been checked and approved by the attending provider. Ronald Molina M.D./sg Electronically Signed By: RONALD MOLINA MD On: 09/29/2016 05:11 PM Modified by and Electronically Signed by: RONALD MOLINA MD On: 09/29/2016 05:10 PM Source: [facility] MHSDOLBEYNONRADSYS Document Id: [id number] documented in this encounter Miscellaneous Notes Miscellaneous - Ronald Molina M.D. - 08/29/2016 3:25 PM CDT Hip joint x-ray 08/28/2016 Document Contains Addenda Addendum by ESTEFANY REEDER LPN on September 01, 2016 09:39:22 CDT Spoke with: ( x ) Patient ( _ ) Parent ( _ ) Spouse ( _ ) Child ( ) Other: _ Call back telephone number: [phone] Reason for Call: -x-ray results Chief Complaint: Patient notified of results and Dr. Molina's recommendations as listed below. Patienttransferred to scheduling to make an appointment with Orthopedics. _ Patient/Caller response to Education/Information given: ( x ) Verbalizes understanding of instructions ( _ ) Provide intervention per provider instruction ( _ ) Reinforce information already given ( _ ) Reinforce Plan of Care ( _ ) Provide preprinted information by mail (if applicable) Source/Reference used (if applicable): Jesse OK to leave message on voice mail? KARLENE OK to send message via patient portal? NA Patient told to expect return call: NA ( _ ) today ( _ ) tomorrow ( _ ) next work day Callers preferred language for Healthcare discussion: Lithuanian Was an hourly sign language interpreter used for this call? No Other ( --x ) No further action needed at this time. Addendum by DEREJE CM on September 01, 2016 09:19:06 CDT patient returned call - [phone] Addendum by ESTEFANY REEDER LPN on September 01, 2016 08:46:07 CDT attempted to contact patient. no answer and no voicemail. will attempt call again at a later time. Addendum by ESTEFANY REEDER LPN on August 29, 2016 16:24:55 CDT attempted to contact patient. no answer and no voicemail. will attempt call again at a later time. From: RONALD MOLINA MD [facility]; Sent: 08/29/2016 15:25:15 CDT ! Show up: 08/29/2016 13:10:00 CDT Subject: Hip joint x-ray 08/28/2016 Actions: Notify patient of results, Notify Patient of Future Order Please call. He has degenerative changes both hips, worse on the right. He needs to see Orthopedic. Order is in EHR. Result type: XR Pelvis Hip 1 view Bilat Result date: August 28, 2016 10:18 CDT Result status: Auth (Verified) Result title: XR Pelvis Hip 1 view Bilat Performed by: ANDREW WILSON MD on August 28, 2016 10:21 CDT Verified by: ANDREW WILSON MD on August 28, 2016 10:21 CDT Encounter info: [id number], [facility], Clinic Outpatient, 08/28/2016 - * Final Report * Reason For Exam Pain Report EXAM: XR Pelvis Hip 1 view Bilat. DEMOGRAPHICS: 66 years Male. INDICATION: Pain. Not otherwise specified. COMPARISON: None FINDINGS: Moderate/advanced degenerative changes of the right hip. Moderately prominent degenerative changes of the left hip. 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 No appreciable acute osseous injury of the pelvis or bilateral hips. IMPRESSION: Degenerative changes both hips, worse on the right. Source: [facility] POWERCHART Document Id: [id number] Electronically signed by Conversion, [facility] Fan Mail Clerk [id number] at 09/22/2016 11:10 PM CDT Miscellaneous - Ronald Molina M.D. - 08/28/2016 9:33 AM CDT Ambulatory Patient Summary [address] [id number] Visit Information Name: ELIAN DAWKINS [facility] Number: [id number] Current Date: 08/28/2016 09:33:40 Physicians Attending Provider: RONALD MOLINA MD Primary Care Provider: RONALD MOLINA MD VERNA ELIAN HERNANDEZ has been given the following list of [...] cholesterol. busPIRone (BuSpar 10 mg oral tablet) 1 Tablet(s), Oral, three times a day Dose increased on 07/17/2016. FLUoxetine (FLUoxetine 40 mg oral capsule) 1 cap, Oral, once a day (in the morning) fluticasone nasal (fluticasone 50 mcg/inh nasal spray) 2 [place](s), Nostrils(Both), once a day glimepiride (Amaryl 4 mg oral tablet) 1 Tablet(s), Oral, once a day (in the morning) with the first meal of the day STOP Metformin. ipratropium nasal (Atrovent 21 mcg/inh nasal spray) 2 [place](s), Nostrils(Both), three times a day asneeded for Nasal congestion in each nostril / For nasal congestion. lisinopril (lisinopril 2.5 mg oral tablet) 1 Tablet(s), Oral, once a day (in the morning) For high blood pressure and kidney protection. metoprolol (metoprolol tartrate 25 mg oral tablet) 1 Tablet(s), Oral, two times a day listed in doc by history / For high blood pressure. polyethylene glycol 3350 (MiraLax oral powder for reconstitution) 17 gm, Oral, once a day 17gm(aboutone heaping tablespoon) dissolved in 4-8oz of water, juice, soda, coffee, or tea / [facility]. This is a CHANGE psyllium (Metamucil) 1.7 gm, Oral, two times a day dissolve in 8 oz of fluid / You should try Citrucel if Metamucil doesn't help constipation, as per GI from [facility]. raNITIdine (raNITIdine 150 mg oral tablet) 1 Tablet(s), Oral, two times a day For stomach. 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 Go to [email or web address] and click on Create Your Account. Then, follow the directions to complete the online form. Youll be asked for your [facility] number which you can find at the top of this document. Your Goals/Additional instructions: Source: [facility] POWERCHART Document Id: [id number] Miscellaneous - Ronald Molina M.D. - 08/28/2016 9:33 AM CDT Ambulatory Discharge Medication List [address] [id number] Visit Information Name: ELIAN DAWKINS [facility] Number: [id number] Current Date: 08/28/2016 09:33:39 Attending Provider: RONALD MOLINA MD Primary Care [...] cholesterol. busPIRone (BuSpar 10 mg oral tablet) 1 Tablet(s), Oral, three times a day Dose increased on 07/17/2016. FLUoxetine (FLUoxetine 40 mg oral capsule) 1 cap, Oral, once a day (in the morning) fluticasone nasal (fluticasone 50 mcg/inh nasal spray) 2 [place](s), Nostrils(Both), once a day glimepiride (Amaryl 4 mg oral tablet) 1 Tablet(s), Oral, once a day (in the morning) with the first meal of the day STOP Metformin. ipratropium nasal (Atrovent 21 mcg/inh nasal spray) 2 [place](s), Nostrils(Both), three times a day asneeded for Nasal congestion in each nostril / For nasal congestion. lisinopril (lisinopril 2.5 mg oral tablet) 1 Tablet(s), Oral, once a day (in the morning) For high blood pressure and kidney protection. metoprolol (metoprolol tartrate 25 mg oral tablet) 1 Tablet(s), Oral, two times a day listed in doc by history / For high blood pressure. polyethylene glycol 3350 (MiraLax oral powder for reconstitution) 17 gm, Oral, once a day 17gm(aboutone heaping tablespoon) dissolved in 4-8oz of water, juice, soda, coffee, or tea / As [facility]. This is a CHANGE psyllium (Metamucil) 1.7 gm, Oral, two times a day dissolve in 8 oz of fluid / You should try Citrucel if Metamucil doesn't help constipation, as per GI from [facility]. raNITIdine (raNITIdine 150 mg oral tablet) 1 Tablet(s), Oral, two times a day For stomach. tamsulosin (tamsulosin 0.4 mg oral capsule) 1 cap, Oral, once a day Stop Taking the Following Medications: Medication list as of 08-28-16 09:33 Attention: If you have any medications at [...] Electronically Signed By: RONALD MOLINA MD Signed On:28-AUG-2016 09:33:36 Additional Information: Source: [facility] POWERCHART Document Id: [id number] Miscellaneous - Estefany Reeder L.P.NMichelle - 08/28/2016 8:36 AM CDT Adult Nougat Cutter Machine Intake/History Adult Nougat Cutter Machine Intake/History Entered On: 08/28/2016 8:37 CDT Performed On: 08/28/2016 8:36 CDT by ESTEFANY REEDER LPN Intake Chief Complaint : 1. Follow-up after GI consult Peripheral Pulse Rate : 63 /min Respiratory Rate : 16 /min Systolic Blood Pressure : 110 mmHg Diastolic Blood Pressure : 60 mmHg NIBP Mean : 77 mmHg BP Location : Left upper extremity Blood Pressure Cuff Size : Large Height : 172 cm(Converted to: 5 ft 8 inch(es), 68 inch(es)) Actual Weight : 102.85 kg(Converted to: 226 lb 12 oz) Weight Source : Standing scale Dosing Weight Clinic : 102.85 kg Clinic BSA : 2.22 Body Mass Index : 34.77 kg/m2 ESTEFANY REEDER LPN - 08/28/2016 8:36 CDT General Info Information Given By : Patient Preferred Communication Mode : Verbal, Written Languages : Lithuanian Is Patient Female and 13-50 no hysterectomy : No ESTEFANY REEDER LPN - 08/28/2016 8:36 CDT Subjective Pain Symptoms : ESTEFANY Garcia LPN - 08/28/2016 8:36 CDT Dependent Habits Exposure to Tobacco Smoke : Other: Never Smoking Status : Never smoker Tobacco 2A : No Tobacco Use/Currently Using : No Tobacco Use/Last 30 Days : No Tobacco Use/Last 12 months : No ESTEFANY REEDER LPN - 08/28/2016 8:36 CDT Source: [facility] POWERCHART Document Id: [id number] CDT!30 documented in this encounter Plan of Treatment Upcoming Encounters Date Type Specialty Care Team Description 04/23/2022 Office Visit Cardiovascular Disease Blas Peck M.D. [address] [place] [address] [phone] (Wo rk) documented as of this encounter Procedures Procedure Name Priority Date/Time Associated Diagnosis Comme nts DX HIPS AND PELVIS Routine 08/28/2016 9:56 AM Res ults for this BILATERAL 1 VIEW CDT procedure a re in the results section. documented in this encounter Results DX Hips And Pelvis Bilateral 1 View (08/28/2016 9:56 AM CDT) Anatomical Region Laterality Modality Lower Extremity, Pelvis, Hip Bilateral Radiographi c Imaging Specimen (Source) Anatomical Collection Method Collection Time Re ceived Time Location / / Volume Laterality 08/28/2016 9:56 AM CDT Addenda Addendum by Provider, Denise Montes 08/28/2016 9:56 AM CDT RAD^^^OW XR Pelvis Hip 1 view Bilat 08/28/2016 09:56:18 Impressions 08/28/2016 10:21 AM CDT Degenerative changes both hips, worse on the right. Narrative 08/28/2016 10:21 AM CDT EXAM: ??XR Pelvis Hip 1 view Bilat. DEMOGRAPHICS: ??66 years Male. INDICATION: ??Pain. ??Not otherwise spec ified. COMPARISON: ??None FINDINGS: ??Moderate/advanced degenerati ve changes of the right hip. Moderately prominent degenerative change s of the left hip. Small bony protuberances along the perip heral margins of the bilateral femoral head neck junctions compatible p robable chronic femoral acetabular impingement type anatomy. No appreciable acute osseous injury of t he pelvis or bilateral hips. Procedure Note Andrew Wilson M.D. / Provider, Arvind hutchins M.D. - 10/02/2016 EXAM: XR Pelvis Hip 1 view Bilat. DEMOGRAPHICS: 66 years Male. INDICATION: Pain. Not otherwise specifie d. COMPARISON: None FINDINGS: Moderate/advanced degenerative changes of the right hip. Moderately prominent degenerative change s of the left hip. Small bony protuberances along the perip heral margins of the bilateral femoral head neck junctions compatible p robable chronic femoral acetabular impingement type anatomy. No appreciable acute osseous injury of t he pelvis or bilateral hips. IMPRESSION: Degenerative changes both hi ps, worse on the right. Marilee Laurent(R), RMichelleTMichelle(R)(M) IMG DIAGNOSTIC IMAGING PROCEDURES documented in this encounter Visit Diagnoses Not on filedocumented in this encounter
--- OUTSIDE RECORDS SUMMARY | 2022-02-17 12:26 | XMS_ITS | Encounter Summary ---
:1950 Author Organization [facility] Address [address] [place] [address] Care Team Providers Name Role Phone Unavailable Primary Care Provider Unavailable Encounter Details Date Type Department Care Team Description 07/29/2016 Hospital Encounter HX [facility] Shemar Crump M.D., M.P.H. [address] [phone] (Wo rk) Social History Tobacco Use [...] - - Height 172 cm (5' 7.72) 07/29/2016 8:28 PM CDT Body Mass Index - - documented in this encounter Medications at Time of Discharge Medication Sig Dispensed Refills Start Date End Date PSYLLIUM HUSK (METAMUCIL Take 1.7 g by mouth 0 ORAL) at bedtime. aspirin 81 mg chewable Chew 1 tablet daily. 0 07/09/2020 tablet atorvastatin Take 1 tablet by 0 07/17/20162017 (for_LIPITOR) 20 mg mouth at bedtime. tablet blood-glucose meter [facility] Dispense glucose 0 05/2308/11/2018 meter, test strips [...] mouth daily. documented as of this encounter Procedure Notes Ehsan Garces M.D., M.P.H. - 07/29/2016 12:00 AM CDT [id number] REFERRED BY Ehsan Garces MD INDICATION Obstructive sleep apnea and possibly REM behavior disorder. TECHNICAL DESCRIPTION This is a diagnostic polysomnogram performed on a patient in standard fashion. The study was orderedas a split night, but the patient refused CPAP. Total recording time was 346.1 minutes with sleep efficiency of 72.2%, sleep latency was 34 minutes, and REM latency was 207.5 minutes. The relative sleep stages were stage I 18.5%, stage II 24.1%, stage III 50%, stage REM 7.4%. The obstructive apnea index was 5, the apnea-hypopnea index was 14, the RERA index was 7 for a total respiratory distress index of 21. The PLM index was 63.2 and the PLM arousal index was 4.9. The patient had non-positional obstructive sleep apnea and oxygen saturations into the 70s with supine sleep but refused CPAP titration. The patient did not have prominent REM atonia nor any complex behaviors. IMPRESSION/RECOMMENDATION This study demonstrates mild obstructive sleep apnea and the patient should undergo a CPAP titrationstudy which will have to be ordered as a separate study. Ehsan Garces M.D./shaylee Electronically Signed By: EHSAN GARCES MD MPH On: 07/31/2016 09:27 AM Modified by and Electronically Signed by: EHSAN GARCES MD MPH On: 07/31/2016 09:27 AM Source: [facility] MHSDOLBEYNONRADSYS Document Id: [id number] documented in this encounter Plan of Treatment Upcoming Encounters Date Type Specialty Care Team Description 04/23/2022 Office Visit Cardiovascular Disease Blas Peck M.D. [address] [place] [phone] (Wo rk) documented as of this encounter Visit Diagnoses Not on filedocumented in this encounter
--- OUTSIDE RECORDS SUMMARY | 2022-02-17 12:26 | XMS_ITS | Encounter Summary ---
:1950 Author Organization [facility] Address [address] [place] [address] Care Team Providers Name Role Phone Unavailable Primary Care Provider Unavailable Encounter Details Date Type Department Care Team Description 07/02/2016 Hospital Encounter HX [facility] Joan Padilla P.A.-C. [address] [place] [phone] (Wo rk) Social History Tobacco Use Types [...] Sign Reading Time Taken Comments Blood Pressure 128/70 07/02/2016 4:04 PM CDT Pulse 64 07/02/2016 4:04 PM CDT Temperature - - Respiratory Rate 12 07/02/2016 4:04 PM CDT Oxygen Saturation - - Inhaled Oxygen Concentration - - Weight 101 kg (222 lb 10.6 oz) 07/02/2016 4:04 PM CDT Height 172 cm (5' 7.72) 07/02/2016 4:04 PM CDT Body Mass Index 34.14 07/02/2016 4:04 PM CDT documented in this encounter Medications at Time of Discharge Medication Sig Dispensed Refills Start Date End Date PSYLLIUM HUSK Take 1.7 g by mouth at 0 04/25/2016 (METAMUCIL ORAL) bedtime. aspirin 81 mg chewable Chew 1 tablet daily. 0 09/ 07/09/2020 tablet blood-glucose meter Dispense glucose 0 [...] documented as of this encounter Progress Notes Juan A Padilla P.A.-C. - 07/02/2016 3:41 PM CDT [id number] CHIEF COMPLAINT/REASON FOR VISIT Followup of his prostatitis. HISTORY OF PRESENT ILLNESS Elvis is a 66-year-old male who has had ongoing issues with prostatitis and with urination and urinary obstruction. He has seen Dr. Mcdermott and was treated with antibiotics. He has been on Detrol as well as tamsulosin. He was on Levaquin and apparently has been on doxycycline, although I do not see this in his completed medicine. Nonetheless, his symptoms persist. He saw Sabrian Valadez just a week ago and he says he did not really feel that that encounter was beneficial for him even though she restarted the Flomax. He continues on the Flomax but still is continuing to have lower urinary tract symptoms. He says that when he urinates, he feels as though his penis become swollen and enlarged. He describes some mild lower abdominal discomfort. His stream is also abnormal when it does come out. PHYSICAL EXAMINATION VITAL SIGNS: Noted in the EMR. GENERAL: He appears in no acute distress. ABDOMEN: Soft and nontender to palpation in the suprapubic area. GENITALIA: His penis is of normal size at this point. I do not appreciate any swelling or erythema or cellulitis. I wanted to do a prostate exam but he refused because he said it was so uncomfortable when Dr. Mcdermott did it last time. IMPRESSION/REPORT/PLAN Prostatitis. I did a urinalysis; it was normal. I am guessing this may be a prostatitis because of the description of his symptoms, although there are other possibilities as well including another typeof lower urinary tract obstruction. I discussed in detail today options with him and I did do a urinalysis that I reviewed with the patient. His urinalysis was negative for any signs of infection. I amgoing to go ahead and put him back on ciprofloxacin because he said the antibiotic originally did seem to help. We will use 500 mg 2 times daily for 10 days. He has a followup with Dr. Mcdermott but randolph Fuentes. I am going to try to bump this up sooner because this is somewhat perplexing. The patientcontinues to have ongoing symptoms that he does not feel are being taken care of. I would like to get Dr. Mcdermott' opinion again on this situation. He is in agreement with this plan. I will have him follow up with Dr. Mcdermott in the near future. If there is questions or problems in the meantime, he will let us know. Total time spent today with Mr. Dawkins was 25 minutes, of which 20 of it was in [id number] coordination of care and counseling. Juan A Padilla P.A.-C./shaylee Electronically Signed By: JUAN A PADILLA PA-C On: 07/04/2016 08:29 AM Source: [facility] [email or web address] Document Id: [id number] documented in this encounter Miscellaneous Notes Miscellaneous - Lulú Driscoll L.PMagaly - 07/02/2016 4:04 PM CDT Adult Health Data Analyst Intake/History Adult Health Data Analyst Intake/History Entered On: 07/02/2016 16:07 CDT Performed On: 07/02/2016 16:04 CDT by LULÚ DRISCOLL LPN Intake Chief Complaint : possible UTI, penis is red swollen Temperature Core : 36.5 DegC(Converted to: 97.7 DegF) Peripheral Pulse Rate : 64 /min Respiratory Rate : 12 /min (LOW) Systolic Blood Pressure : 128 mmHg Diastolic Blood Pressure : 70 mmHg NIBP Mean : 89 mmHg BP Location : Right upper extremity Blood Pressure Cuff Size : Large Height : 172 cm(Converted to: 5 ft 8 inch(es), 68 inch(es)) Actual Weight : 101 kg(Converted to: 222 lb 11 oz) Weight Source : Standing scale Dosing Weight Clinic : 101 kg Clinic BSA : 2.2 Body Mass Index : 34.14 kg/m2 LULÚ DRISCOLL LPN - 07/02/2016 16:04 CDT General Info Information Given By : Patient Languages : Austrian Is Patient Female and 13-50 no hysterectomy : No LULÚ DRISCOLL LPN - 07/02/2016 16:04 CDT Subjective Pain Symptoms : Yes LULÚ DRISCOLL LPN - 07/02/2016 16:04 CDT Pain Scale Pain Scale Verbal 0-10 : Open LULÚ DRISCOLL LPN - 07/02/2016 16:04 CDT Pain Pain Assessment Grid Pain 1 Location : Other: penis LULÚ DRISCOLL LPN - 07/02/2016 16:04 CDT Dependent Habits Exposure to Tobacco Smoke : Other: Never Smoking Status : Never smoker Tobacco 2A : No Tobacco Use/Currently Using : No Tobacco Use/Last 30 Days : No Tobacco Use/Last 12 months : No LULÚ DRISCOLL LPN - 07/02/2016 16:04 CDT [facility] POWER[facility]ART Document Id: [id number]!36 documented in this encounter Plan of Treatment Upcoming Encounters Date Type Specialty Care Team Description 04/23/2022 Office Visit Cardiovascular Disease Blas Peck M.D. [address] [place] [phone] (Wo rk) documented as of this encounter Procedures Procedure Name Priority Date/Time Associated Diagnosis Comme nts URINALYSIS, Routine 07/02/2016 4:23 PM Results f or this MIDSTREAM, WITH CDT procedure ar e in CULTURE IF the results INDICATED section. documented in this encounter Results (ABNORMAL) Urinalysis, Midstream, with culture if indicated (07/02/2016 4:23 PM CDT) P athologist Signature Clarity Clear Clear POWERCHART HXUr Color Yellow Colorless POWERCHART Specific 1.020 POWERCHART [place], POCT, U Comment: Reference Range Specific [place]: 1.000-1.035 pH, POCT, Urine 5.0 <5.0 POWERCHART Comment: Reference Range pH: 5.0-8.0 Protein, Ur, Dip Trace Negative MGDL POWERCHAR T Glucose Negative Negative MGDL POWERCHART Ketones, QL(U) 15 (A) Negative MGDL POWERCHART HXBILIRUBIN Small (A) Negative POWERCHART HXBLOOD Negative Negative POWERCHART Leukocyte Esterase Negative Negative POWERCHART HXNITRITE Negative Negative POWERCHART HXUR WBC. None Seen None Seen HPF POWERCHART HXUR RBC. None Seen None Seen HPF POWERCHART Urobilinogen 0.2 0.2 MGDL POWERCHART Comment: Reference Range Urobilinogen: 0.2-1.0 mg/dL Specimen (Source) Anatomical Collection Method Collection Time Re ceived Time Location / / Volume Laterality Urine, First 07/02/2016 4:23 PM Voided CDT Juan A Padilla P.A.-C. LAB URINE ORDERABLES Performing Organization Address City/State/ZIP Code Phon e Number POWERCHART documented in this encounter Visit Diagnoses Not on filedocumented in this encounter
--- OUTSIDE RECORDS SUMMARY | 2022-02-17 12:26 | XMS_ITS | Encounter Summary ---
:1950 Author Organization [facility] Address [address] [place] [address] Care Team Providers Name Role Phone Franco Molina M.D. Primary Care Provider Encounter Details Date Type Department Care Team Description 10/17/2016 Hospital Encounter HX [facility] Franco Molina M.D. [address] [place], [place] [phone] Social History Tobacco Use Types Packs/Day [...] - - Height 172 cm (5' 7.72) 10/17/2016 8:49 AM CDT Body Mass Index - - [...] mg mouth at bedtime. tablet blood-glucose meter [facility] [place] Dispense glucose 0 05/2308/11/2018 meter, test strips [...] Visit Cardiovascular Disease Blas Peck M.D. [address] [place] [phone] (Wo rk) documented as of this encounter Procedures Procedure Name Priority Date/Time Associated Comments Diagnosis ALANINE AMINOTRANSFERASE Routine 10/17/2016 9:13 Results for this (ALT), S/P AM CDT procedure are i n the results section. ASPARTATE Routine 10/17/2016 9:13 Results for this AMINOTRANSFERASE (AST), AM CDT proc edure are in S/P the results section. HEMOGLOBIN A1C, B Routine 10/17/2016 9:13 Results for this AM CDT procedure are i n the results section. CREATINE KINASE (CK), S Routine 10/17/2016 9:13 R esults for this AM CDT procedure are i n the results section. BASIC METABOLIC PANEL, Routine 10/17/2016 9:13 Re sults for this S/P AM CDT procedure are i n the results section. documented in this encounter Results (ABNORMAL) Hemoglobin A1c (10/17/2016 9:13 AM CDT) athologist Signature Hemoglobin A1c, 8.2 (H) <=5.6 A1C POWERCHART B Specimen (Source) Anatomical Collection Method Collection Time Re ceived Time Location / / Volume Laterality Blood 10/17/2016 9:13 AM CDT Franco Molina M.D. LAB BLOOD ADD-ON Performing Organization Address City/State/ZIP Code Phon e Number POWERCHART CK (Creatine Kinase) (10/17/2016 9:13 AM CDT) athologist Signature Creatine Kinase 267 52 - 336 UL POWERCHART (CK), S Comment: Reference values have not been established for patients that are <6 years of age. Specimen (Source) Anatomical Collection Method Collection Time Re ceived Time Location / / Volume Laterality Blood 10/17/2016 9:13 AM CDT Franco Molina M.D. LAB BLOOD ADD-ON Performing Organization Address City/State/ZIP Code Phon e Number POWERCHART (ABNORMAL) BMP (Basic Metabolic Panel) (10/17/2016 9:13 AM CDT) P athologist Signature Sodium, S 135 135 - 145 POWERCHART MMOLL Potassium, S 5.0 3.6 - 5.2 POWERCHART MMOLL Chloride, S 101 98 - 107 POWERCHART MMOLL CO2 Total 27 22 - 29 POWERCHART MMOLL Comment: Reference ranges have not been established for patients that are <12 months of age. BUN (Blood Urea Nitrogen), S 10 8 - 24 MGDL POWERCHART Creatinine 1.01 0.80 - 1.30 MGDL POWERCHART Calcium, Total, S 9.7 8.8 - 10.3 MGDL POWERC WHITE Anion Gap 7 7 - 15 MMOLL POWERCHART HXeGFR (MDRD) >60 >=60 [id number] POWERCHART eGFR Black/ >60 >=60 [id number] POWERCHART Glucose 179 (H) 70 - 139 MGDL POWERCHART Specimen (Source) Anatomical Collection Method Collection Time Re ceived Time Location / / Volume Laterality Blood 10/17/2016 9:13 AM CDT Franco Molina M.D. LAB BLOOD ADD-ON Performing Organization Address City/State/ZIP Code Phon e Number POWERCHART AST (Aspartate Aminotransferase) (10/17/2016 9:13 AM CDT) Patholo gist Method Time Signature Aspartate 19 8 - 48 POWERCHART Aminotransferase UNITL (AST), S Specimen (Source) Anatomical Collection Method Collection Time Re ceived Time Location / / Volume Laterality Blood 10/17/2016 9:13 AM CDT Franco Molina M.D. LAB BLOOD ADD-ON Performing Organization Address City/State/ZIP Code Phon e Number POWERCHART ALT (Alanine Aminotransferase) (10/17/2016 9:13 AM CDT) P athologist Signature Alanine 15 7 - 55 POWERCHART Amniotransferas UNITL e, LD Specimen (Source) Anatomical Collection Method Collection Time Re ceived Time Location / / Volume Laterality Blood 10/17/2016 9:13 AM CDT Franco Molina M.D. 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 PCP - General 09/25/16 07/27/19 documented as of this encounter
--- OUTSIDE RECORDS SUMMARY | 2022-02-17 12:26 | XMS_ITS | Encounter Summary ---
:1950 Author Organization [facility] Address [address] [place] [address] Care Team Providers Name Role Phone Unavailable Primary Care Provider Unavailable Encounter Details Date Type Department Care Team Description 08/14/2016 Hospital Encounter HX [facility] NEUROLOGY Shemar Garces M.D., M.P.H. [address] [id number] (Wo rk) Social History Tobacco [...] Sign Reading Time Taken Comments Blood Pressure 98/60 08/14/2016 11:32 AM CDT Pulse 64 08/14/2016 11:32 AM CDT Temperature - - Respiratory Rate 16 08/14/2016 11:32 AM CDT Oxygen Saturation - - Inhaled Oxygen Concentration - - Weight 102 kg (224 lb 13.9 oz) 08/14/2016 11:32 AM CDT Height 172 cm (5' 7.72) 08/14/2016 11:37 AM CDT Body Mass Index 34.48 08/14/2016 11:32 AM CDT documented in this encounter Medications at Time of Discharge Medication Sig Dispensed Refills Start Date End Date PSYLLIUM HUSK (METAMUCIL Take 1.7 g by mouth 0 ORAL) at bedtime. aspirin 81 mg chewable Chew 1 tablet daily. 0 07/09/2020 tablet atorvastatin Take 1 tablet by 0 07/17/20162017 (for_LIPITOR) 20 mg mouth at bedtime. tablet blood-glucose meter [facility] Dispense glucose 0 05/2308/11/2018 meter, test strips [...] documented as of this encounter Progress Notes Ehsan Garces M.D., M.P.H. - 08/14/2016 11:12 AM CDT [id number] CHIEF COMPLAINT/REASON FOR VISIT Sleep apnea. HISTORY OF PRESENT ILLNESS Mr. Whitley is a very pleasant 66-year-old gentleman whom I initially saw on June 19 of this year for history of morning headaches, hypersomnia and violent dreams. 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 The patient lives alone. He reports frequent, violent dreams, but he does not hurt himself and no one is sleeping in hisbed and he has not hurt them either. I ordered a sleep study, split-night with extra EMG leads to check for both sleep-disordered breathing and REM behavior disorder. This study was completed on July 29 and it demonstrated no complex REM behaviors nor any prominent loss of REM atonia. He did not want to undergo CPAP titration so that did not happen. His PLM index was 63.2 and the arousal index was4.9. His obstructive apnea index was 5. His apnea- hypopnea index was 14. The RERA index was 7 for a total respiratory distress index of 21. At today's visit the patient continues to have violent dreams, but today we discussed his study. He is receptive to the idea of doing a CPAP titration study. SYSTEMS REVIEW CONSTITUTIONAL: Positive for fatigue and chills. CARDIOVASCULAR: Chest pain. GASTROINTESTINAL: Constipation. MUSCULOSKELETAL: Back pain. PSYCHIATRIC: Depression, anxiety, panic attacks. PHYSICAL EXAMINATION GENERAL: The patient looks well and he is in no acute distress. VITAL SIGNS: Blood pressure is 98/60. Heart rate is 64. Respiratory rate is 16. Temperature is 37.2.He is 172 cm tall and weighs 100.2 kg for a BMI of 34.48. HEENT: Normal, atraumatic. Mallampati 4 score with macroglossia and retrognathia. NEUROLOGIC: Cranial nerves II through XII are normal. His motor examination reveals normal bulk, tone, and strength throughout. I do not appreciate any tremor and no increase in tone. His station and gait are normal. Sensation to light touch is normal. IMPRESSION/REPORT/PLAN 1. Mild obstructive sleep apnea. 2. 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 I am going to send the patient back for a night of titration and I am still going to do arm EMG leads to look for evidence of loss of rapid eye movement atonia or complex rapid eye movement behaviors and try to determine appropriate pressure support. Once that is done, then I think I will probably embark on treatment for rapid eye movement behavior disorder, but I do not want to confound this therapeutic diagnostic study. Total time together was 25 minutes, 15 in counseling and reviewing of tests. Ehsan Garces M.D./shaylee Electronically Signed By: EHSAN GARCES MD MPH On: 08/29/2016 02:58 PM Source: [facility] MHSDOLBEYNONRADSYS Document Id: [id number] documented in this encounter Nursing Notes Carmen Davidson L.P.N. - 08/25/2016 10:59 AM CDT Prior authorization request Fluoxetine Prior authorization request for Fluoxetine completed through [employer], [place] [id number]. Time spent on form 25 minutes. Electronically Signed By: CARMEN DAVIDSON LPN On: 08/25/2016 11:00 AM Source: [facility] POWERCHART Document Id: [id number] documented in this encounter Miscellaneous Notes Telephone Encounter - Conversion, Historical Provider Ser - 12/08/2016 8:09 AM CDT *Phone Message- Dr. Mcdermott Document Contains Addenda Addendum by DWIGHT MILES on December 08, 2016 15:25:22 CDT Pt has been scheduled Addendum by NELIA HANNAH LPN on December 08, 2016 11:27:00 CDT From: NELIA HANNAH LPN ( Urology Nurse) To: [address] [employer]; Sent: 12/08/2016 11:27:00 CDT Subject: FW: *Phone Message- Dr. Mcdermott Patient contacted . Please schedule with Sabrina Valadez CNP 12/22/16 at 2 p.m. Patient is aware of time and date but asked that appointment be mailed to him. Thank you. From: BERTO ABEL To: Urology Nurse; Sent: 12/08/2016 08:09:06 CDT Subject: *Phone Message- Dr. Mcdermott Caller is: ( x) Patient ( ) Mother ( ) Father ( ) Spouse ( ) Daughter ( ) Son ( ) Pharmacy ( ) Other: Physician: Dr. Mcdermott Patient MRN #: Reason for Call: Message: S: Pt called clinic to talk to nurse B: needed to cancel appt because he is ill, doesn't feel he can wait until next available A: R: Please call pt at [phone] Advice/Action: Source used: ( ) Verbalizes understanding of instructions ( ) Instructed to call back if symptoms worsen or do not resolve ( ) Refused to see provider ( ) Appointment Scheduled ( ) OK to leave message on voice mail ( ) Patient told to expect return call: ( ) today ( ) tomorrow ( ) next work day ( ) Patient's email ( ) Patient told physician out of office, will call upon return call on ( ) ( ) Patient told physician out of office, routed to other physician ( ) Other ( ) Call back telephone number ( ) Call back cell phone number ( ) Source: [facility] [employer] Document Id: [id number] Miscellaneous - Ehsan Garces M.D., M.P.H. - 08/14/2016 1:40 PM CDT Ambulatory Patient Summary [facility] [address] [place] [address] [id number] Visit Information Name: ELIAN DAWKINS [facility] Number: [id number] Current Date: 08/14/2016 13:40:01 Physicians Attending Provider: EHSAN GARCES MD MPH Primary Care Provider: RONALD MOLINA MD MACKMirellaYOLYON DAVID has been given the following list [...] day Dose increased on 07/17/2016. FLUoxetine (FLUoxetine 20 mg oral tablet) 2 Tablet(s), Oral, once a day (in the morning) For anxietyand depression. fluticasone nasal (fluticasone 50 mcg/inh nasal spray) 2 Lisbon(s), Nostrils(Both), once a day glimepiride (Amaryl 4 mg oral tablet) 1 Tablet(s), Oral, once a day (in the morning) with the first meal of the day STOP Metformin. ipratropium nasal (Atrovent 21 mcg/inh nasal spray) 2 Lisbon(s), Nostrils(Both), three times a day asneeded for Nasal congestion in each nostril / For nasal congestion. levoFLOXacin (Levaquin 750 mg oral tablet) 1 Tablet(s), Oral, once a day x 28 day(s) lisinopril (lisinopril 2.5 mg oral tablet) 1 Tablet(s), Oral, once a day (in the morning) For high blood pressure and kidney protection. metoprolol (metoprolol tartrate 25 mg oral tablet) 1 Tablet(s), Oral, two times a day listed in doc by history / For high blood pressure. psyllium (Metamucil) 1.7 gm, Oral, two times a day dissolve in 8 oz of fluid raNITIdine (raNITIdine 150 mg oral tablet) 1 Tablet(s), Oral, two times a day For stomach. tamsulosin (tamsulosin 0.4 mg oral capsule) 1 cap, Oral, once a day Stop Taking the Following Medications: Medication list as of 08-14-16 13:40 Attention: If you have any medications at home that are not on this list, DO NOT take them until youcontact your provider for clarification. Give a copy of your medication list to your primary care provider. Update your medication list any time medications or doses are changed and carry your medication list at all times in case of emergency. Electronically Signed By: EHSAN GARCES MD MPH Signed On:14-AUG-2016 13:39:58 Your Allergies & Intolerances Substance Reaction Symptoms [...] Without Agoraphobia Active Apnea Sleep Obstructive (ОЛЬГА) ??? 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 Retention Urinary Chronic Possible Active Infection Urinary Tract Acute (UTI) Active Overactive Bladder Active Spasm Bladder Active Diverticulosis Colon Active Callus [place] Foot Bilateral Active Your Upcoming Appointments Date Time Location Provider 08/28/2016 08:45 [facility] Maria G Molina MD, Ronald 09/09/2016 20:00 [facility] 09/15/2016 15:15 [facility] Urology Baldemar ALEX, Beto 09/18/2016 09:35 [facility] Neurology Ehsan Garces MD 10/17/2016 09:15 [facility] Lab [facility] 10/17/2016 09:15 [facility] Lab [facility] Lab 10/23/2016 10:45 [facility] InternDaniel Molina MD, Phandrea Attention: Contact your local Clinic if further [...] if you dont have one. Go to [email or web address] and click on Create Your Account. Then, follow the directions to complete the online form. Youll be asked for your [facility] number which you can find at the top of this document. Your Goals/Additional instructions: Source: [facility] POWERCHART Document Id: [id number] Miscellaneous - Ehsan Garces M.D., M.P.H. - 08/14/2016 1:40 PM CDT Ambulatory Discharge Medication List [address] [id number] Visit Information Name: ELIAN DAWKINS [facility] Number: [id number] Current Date: 08/14/2016 13:40:00 Attending Provider: EHSAN GARCES MD MPH Primary Care Provider: RONALD MOLINA MD ELIAN [...] day Dose increased on 07/17/2016. FLUoxetine (FLUoxetine 20 mg oral tablet) 2 Tablet(s), Oral, once a day (in the morning) For anxietyand depression. fluticasone nasal (fluticasone 50 mcg/inh nasal spray) 2 Lisbon(s), Nostrils(Both), once a day glimepiride (Amaryl 4 mg oral tablet) 1 Tablet(s), Oral, once a day (in the morning) with the first meal of the day STOP Metformin. ipratropium nasal (Atrovent 21 mcg/inh nasal spray) 2 Lisbon(s), Nostrils(Both), three times a day asneeded for Nasal congestion in each nostril / For nasal congestion. levoFLOXacin (Levaquin 750 mg oral tablet) 1 Tablet(s), Oral, once a day x 28 day(s) lisinopril (lisinopril 2.5 mg oral tablet) 1 Tablet(s), Oral, once a day (in the morning) For high blood pressure and kidney protection. metoprolol (metoprolol tartrate 25 mg oral tablet) 1 Tablet(s), Oral, two times a day listed in doc by history / For high blood pressure. psyllium (Metamucil) 1.7 gm, Oral, two times a day dissolve in 8 oz of fluid raNITIdine (raNITIdine 150 mg oral tablet) 1 Tablet(s), Oral, two times a day For stomach. tamsulosin (tamsulosin 0.4 mg oral capsule) 1 cap, Oral, once a day Stop Taking the Following Medications: Medication list as of 08-14-16 13:40 Attention: If you have any medications at home that are not on this list, DO NOT take them until youcontact your provider for clarification. Give a copy of your medication list to your primary care provider. Update your medication list any time medications or doses are changed and carry your medication list at all times in case of emergency. Electronically Signed By: EHSAN GARCES MD MPH Signed On:14-AUG-2016 13:39:58 Additional Information: Source: [facility] POWERCHART Document Id: [id number] Miscellaneous - Chandra Bui, L.P.N. - 08/14/2016 12:22 PM CDT *General Message Document Contains Addenda Addendum by KIKE REEDER LPN on August 14, 2016 17:49:31 CDT Spoke with: ( x ) Patient ( _ ) Parent ( _ ) Spouse ( _ ) Child ( ) Other: _ Call back telephone number: Reason for Call: -Abdominal pain Chief Complaint: Patient notified of Dr. Molina's recommendations as listed below. _ Patient/Caller response to Education/Information given: ( [...] day Callers preferred language for Healthcare discussion: [place]ankan Was an clerk rating used for this call? No Other ( --x ) No further action needed at this time. Addendum by RONALD MOLINA MD on August 14, 2016 16:23:22 CDT From: RONALD MOLINA MD To: [facility] Nurse; Sent: 08/14/2016 16:23:22 CDT Subject: RE: *General Message Actions: Notify patient- refer to General Message, Notify patient of Future Order He should take Miralax 17 grams PO BID. See below for new Rx. Addendum by RONALD MOLINA MD on August 14, 2016 16:22:34 CDT Submitted: Order:polyethylene glycol 3350 (MiraLax oral powder for reconstitution) 17 gm PO 2xDay 17gm(about one heaping tablespoon) dissolved in 4-8oz of water, juice, soda, coffee, or tea Qty: 1,530 gm Refills: 3 Substitutions Allowed Route To Pharmacy - [facility] Signed by RONALD MOLINA MD Addendum by KIKE REEDER LPN on August 14, 2016 15:56:27 CDT From: KIKE REEDER LPN ([facility] Nurse) To: RONALD MOLINA MD; Sent: 08/14/2016 15:56:27 CDT Subject: FW: *General Message Addendum by KIKE REEDER LPN on August 14, 2016 15:56:21 CDT Spoke with: ( x ) Patient ( _ ) Parent ( _ ) Spouse ( _ ) Child ( ) Other: _ Call back telephone number: Reason for Call: -Abdominal Pain Chief Complaint: Patient states that he feels constipated. He states his stool is small and hard anddifficult to pass. Patient feels like he is eating plenty of fiber. Patient denies fever, nausea, orvomitting. Patient describes his pain as aggrevating. _ Patient/Caller response to Education/Information given: ( [...] told to expect return call: NA ( x ) today ( _ ) tomorrow ( _ ) next work day Callers preferred language for Healthcare discussion: [place]ankan Was an clerk rating used for this call? No Other ( --_ ) No further action needed at this time. Addendum by RONALD MOLINA MD on August 14, 2016 12:50:30 CDT From: RONALD MOLINA MD To: [facility] Nurse; Sent: 08/14/2016 12:50:30 CDT Subject: RE: *General Message Actions: Notify patient- refer to General Message, Notify patient of Future Order Please call. Does he have regular bowel movement? He needs to make sure his fiber intake is at least 20 grams a day. He needs to be seen if he has fever, chills, nausea, vomiting with abdominal pain or worsening ofsymptoms or he should go to [facility] ED, [facility], From: CHANDRA BUI LPN ( Neurology Nurse) To: RONALD MOLINA MD; Sent: 08/14/2016 12:22:31 CDT Subject: *General Message Caller is: ( x ) Patient ( ) Mother ( ) Father ( ) Spouse ( ) Daughter ( ) Son ( ) Pharmacy ( ) Other: Physician: Patient Reason for Call: Patient was seen in office with neurology with the following complaints. Message: Patient stated that he was dizzy this morning and that his head feels full. Has trouble urinating and that he has low abd. pain. Urine foul smelling. Back pain Bloated Patient stated that he has appointment with GI 08/25/16 in [place] and an appointment with you on 08/28/16. Patient wanted you to be informed of his discomforts. Any advise? Advice/Action: Source used: ( x ) Verbalizes understanding of instructions ( ) Instructed to call back if symptoms worsen or do not resolve ( ) Refused to see provider ( ) Appointment Scheduled ( ) OK to leave message on voice mail ( x ) Patient told to expect return call: ( x ) today ( ) tomorrow ( ) next work day ( ) Patient's email ( ) Patient told physician out of office, will call upon return call on ( ) ( ) Patient told physician out of office, routed to other physician ( ) Other ( ) Call back telephone number ) Call back cell phone number ( ) [facility] Document Id: [id number] Kami - Chandra Bui L.P.N. - 08/14/2016 12:04 PM CDT Obstructive Sleep Apnea Obstructive Sleep Apnea Entered On: 08/14/2016 12:05 CDT Performed On: 08/14/2016 12:04 CDT by CHANDRA BUI LPN ОЛЬГА Screening Known Obstructive Sleep Apnea : Patient diagnosed with ОЛЬГА; DOES NOT USE sleep machine ОЛЬГА Score : No qualifying data available. ОЛЬГА Results : No qualifying data available. CHANDRA BUI LPN - 08/14/2016 12:04 CDT [facility]: [facility] Document Id: [id number] CDT!5 Kami - Chandra Bui L.P.N. - 08/14/2016 12:00 PM CDT Dellrose Sleepiness Scale Dellrose Sleepiness Scale Entered On: 08/14/2016 12:04 CDT Performed On: 08/14/2016 12:00 CDT by CHANDRA BUI LPN [place] Sleepiness Scale [place] sitting and reading : Moderate chance of dozing [place] watching TV : Slight chance of dozing [place] sitting in public : No chance of dozing [place] passenger in car : No chance of dozing [place] in a car stopped in traffic : No chance of dozing [place] Lying down to rest : Slight chance of dozing [place] sitting and talking : No chance of dozing [place] sitting quietly after lunch : Slight chance of dozing [place] Total Score : 5 CHANDRA BUI LPN - 08/14/2016 12:00 CDT Source: [facility] Document Id: [id number] CDT!11 Miscellaneous - Ehsan Garces M.D., M.P.H. - 08/14/2016 11:53 AM CDT [employer]ion Essbase Developer Instructions Hyperion Essbase Developer Instructions Entered On: 08/14/2016 11:53 CDT Performed On: 08/14/2016 11:53 CDT by EHSAN GARCES MD MPH [employer] Essbase Developer Instructions Special Needs : Hospital bed General Instructions : All Night Titration CPAP/BiPAP Monitors Requested : Save Video, Arm EMG Oxygen Order : Follow standard Oxygen Initiation Protocol Maximum Oxygen Flow Rate : 5 L/min EHSAN GARCES MD MPH - 08/14/2016 11:53 CDT Source: [place] Document Id: [id number] CDT!7 Miscellaneous - Chandra Bui, L.P.N. - 08/14/2016 11:37 AM CDT Ambulatory Vitals Height Weight Ambulatory Vitals Height Weight Entered On: 08/14/2016 11:37 CDT Performed On: 08/14/2016 11:37 CDT by CHANDRA BUI LPN Vitals/Ht/Wt Temperature Core : 37.2 DegC(Converted to: 99.0 DegF) Height : 172 cm(Converted to: 5 ft 8 inch(es), 68 inch(es)) CHANDRA BUI LPN - 08/14/2016 11:37 CDT Source: [place] Document Id: [id number] CDT!4 Miscellaneous - Chandra Bui L.P.NMichelle - 08/14/2016 11:32 AM CDT Adult Breaker Engineer Intake/History Adult Breaker Engineer Intake/History Entered On: 08/14/2016 11:36 CDT Performed On: 08/14/2016 11:32 CDT by CHANDRA BUI LPN Intake Chief Complaint : Sleep study results Peripheral Pulse Rate : 64 /min Respiratory Rate : 16 /min Systolic Blood Pressure : 98 mmHg Diastolic Blood Pressure : 60 mmHg NIBP Mean : 73 mmHg BP Location : Left upper extremity Blood Pressure Cuff Size : Large Height : 172 cm(Converted to: 5 ft 8 inch(es), 68 inch(es)) Actual Weight : 102.0 kg(Converted to: 224 lb 14 oz) Weight Source : Standing scale Dosing Weight Clinic : 102 kg Clinic BSA : 2.21 Body Mass Index : 34.48 kg/m2 CHANDRA BUI LPN - 08/14/2016 11:32 CDT General Info Information Given By : Patient Languages : Sri Lankan Is Patient Female and 13-50 no hysterectomy : No CHANDRA BUI LPN - 08/14/2016 11:32 CDT Subjective Pain Symptoms : No CHANDRA BUI LPN - 08/14/2016 11:32 CDT Dependent Habits Exposure to Tobacco Smoke : Other: Never Smoking Status : Never smoker Tobacco 2A : No Tobacco Use/Currently Using : No Tobacco Use/Last 30 Days : No Tobacco Use/Last 12 months : No CHANDRA BUI LPN - 08/14/2016 11:32 CDT Source: [place] Document Id: [id number] CDT!29 documented in this encounter Plan of Treatment Upcoming Encounters Date Type Specialty Care Team Description 04/23/2022 Office Visit Cardiovascular Disease Blas Peck M.D. [address] [place] [address] [phone] (Wo rk) documented as of this encounter Visit Diagnoses Not on filedocumented in this encounter
--- OUTSIDE RECORDS SUMMARY | 2022-02-17 12:26 | XMS_ITS | Encounter Summary ---
:1950 Author Organization [facility] Address [address] [place] [address] Care Team Providers Name Role Phone Unavailable Primary Care Provider Unavailable Encounter Details Date Type Department Care Team Description 07/24/2016 Hospital Encounter HX [facility] Gilberto Mcdermott M.D. [address] [place] [address] (Wo rk) Social History Tobacco [...] Sign Reading Time Taken Comments Blood Pressure 126/84 07/24/2016 1:49 PM CDT Pulse 78 07/24/2016 1:49 PM CDT Temperature - - Respiratory Rate - - Oxygen Saturation - - Inhaled Oxygen Concentration - - Weight - - Height 172 cm (5' 7.72) 07/24/2016 1:49 PM CDT Body Mass Index - - [...] documented as of this encounter Progress Notes Gilberto Mcdermott M.D. - 07/24/2016 5:19 PM CDT Clinic Full Note CHIEF COMPLAINT/REASON FOR VISIT Pelvic pain and lower urinary tract symptoms HISTORY OF PRESENT ILLNESS This is a 66-year-old male who has been seen for prior time since February 2016. His primary complaint is pelvic pain felt chronically, but he does have some relief after urinating. When he was initially seen, by myself, he was diagnosed as having prostatitis. He was given a 3 week course of Levaquinand had significant improvement while on the antibiotic . Shortly after it was discontinued his symptoms return. He has been given tamsulosin with only minimal improvement. Most of the pain is in the left lower quadrant, but also immediately in the suprapubic region. MEDICATIONS Amaryl 4 mg oral tablet, 4 mg, 1 tab(s), with the first meal of the daySTOP Metformin., PO, Daily AM, 3 refills aspirin 81 mg oral tablet, 81 mg, 1 tab(s), PO, Daily atorvastatin 20 mg oral tablet, 20 mg, 1 tab(s), PO, Bedtime, 3 refills Atrovent 21 mcg/inh nasal spray, 2 spray(s), in each nostril, Nostrils(Both), 3xDay, PRN, 11 refills BuSpar 10 mg oral tablet, 10 mg, 1 tab(s), Dose increased on 07/17/2016., PO, 3xDay, 3 refills FLUoxetine 20 mg oral tablet, 40 mg, 2 tab(s), PO, Daily AM, 11 refills fluticasone 50 mcg/inh nasal spray, 2 spray(s), Nostrils(Both), Daily, 11 refills lisinopril 2.5 mg oral tablet, 2.5 mg, 1 tab(s), PO, Daily AM, 3 refills Metamucil, Take it once a day. metoprolol tartrate 25 mg oral tablet, 25 mg, 1 tab(s), listed in doc by history, PO, 2xDay, 3 refills raNITIdine 150 mg oral tablet, 150 mg, 1 tab(s), PO, 2xDay, 3 refills tamsulosin 0.4 mg oral capsule, 0.4 mg, 1 cap(s), PO, Daily, 11 refills ALLERGIES Bactrim (swelling) PAST MEDICAL HISTORY Chronic Anxiety NOS Apnea Sleep Obstructive (ОЛЬГА) ??? 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 4 S/P Pers Hx Diverticulosis Colon DM2 DM2 Neuropathy Hay Fever Hyperlipidemia NOS Hypertension (HTN) Essential Benign Infection Urinary Tract Acute (UTI) Irritable Bowel Syndrome (IBS) Numbness NOS Overactive Bladder Panic Disorder Without Agoraphobia Polyp Colon Pers Hx Polyp Colon Tubular Adenoma x 3 Retention Urinary Chronic Possible Rhinitis Allergic NOS Spasm Bladder Historical No historical problems PROCEDURES/SURGICAL HISTORY CT of abdomen and pelvis (04/18/2016), Echocardiogram (10/26/2015), Colonoscopy (07/27/2015), CABG x 4 - Coronary artery bypass grafts x 4 (05/28/2014), Cholecystectomy, Repair of inguinal hernia. SOCIAL HISTORY Date Time: 07/24/2016 13:49 Tobacco: Smoking Status: Never smoker Exposure: Other: Never Alcohol: Use: No Recreational Drugs: Use: No Results Found Type: No Results Found FAMILY HISTORY Mother:Positive: CA - Cancer of colon; Cataract; Diabetes mellitus; Hypertension; IBS - Irritable bowel syndrome Father:Positive: Deep vein thrombosis Grandfather:Positive: IBS - Irritable bowel syndrome SYSTEMS REVIEW Also positive for some erectile dysfunction VITAL SIGNS T: 36.8 ??C (Core) HR: 78 BP: 126 / 84 HT: 172 cm PHYSICAL EXAMINATION GENERAL: Well-nourished, well-developed adult male in no apparent distress HEAD: No abnormality of appearance. No facial abnormalities. No neck masses. THYROID: No thyroid enlargement. HEART: Regular rate and rhythm. Abdominal aorta is not palpable. Femoral pulses are 2+ and equal bilaterally. No peripheral cyanosis or edema. LUNGS: Normal respiratory movements. No shortness of breath. ABDOMEN: Flat and nondistended. No guarding. No tenderness. No ascites. No hepatosplenomegaly. Kidneys are not palpable. Bladder size is normal. There are no ventral hernias. There are no inguinal hernias. RECTUM: Perirectal Region: Unremarkable without evidence of condyloma, skin tags or other lesions. Rectal sphincter tone is normal. There are no rectal masses. PROSTATE: Prostate is approximately 35 grams in size. It is smooth in consistency. It is symmetrical. The prostate is extremely tender to palpation and slightly boggy. Seminal vesicles are not identifiable. GENITALIA: Penis: No discharge, no masses and no plaques. Meatus is normally located on the glans penis, there is no meatal scarring and it is of normal size. Penis is has some redundant foreskin. Scrotum: No rashes. No hydroceles or spermatoceles are present. No palpable varicocele is noted. Testes:Both testes are descended. They are without masses or tenderness. Each testis is of normal size and consistency. Epididymi: Each epididymis is of normal size, without masses, without tenderness or signs of epididymitis. Both the right and left vas deferens are palpable. Perineum: Unremarkable. There are no obvious skin tags, condyloma or other lesions. SPINE: No spinal tenderness. No costovertebral angle tenderness. DIAGNOSTIC RESULTS Bladder scan postvoid residual is 0 IMPRESSION/REPORT/PLAN Benign Prostatic Hyperplasia (BPH) Hypertrophy W Obstruction Ordered: OV Est Pt Level 4 - 37442 - 25 min Prostatitis Chronic Ordered: OV Est Pt Level 4 - 36253 - 25 min Orders: levoFLOXacin, 750 mg = 1 tab(s), PO, Daily, x 28 day(s), # 28 tab(s), 0 Refill(s), Acute, Pharmacy:[id number] Return Visit Urology Impression: Chronic prostatitis with acute exacerbation. There is also an element of chronic benignprostatic hypertrophy. Plan: Continue tamsulosin. Levaquin 750 mg once daily for 3 weeks. Return to clinic in 4-6 weeks tomonitor progress. I would also like to suggest to his primary provider, Dr. Molina, that some consideration of diverticulitis be entertained. Electronically Signed By: GILBERTO MCDERMOTT MD On: 07/24/2016 05:23 PM Source: [facility] POWERCHART Document Id: [id number] documented in this encounter Miscellaneous Notes Telephone Encounter - Conversion, Historical Provider Ser - 07/25/2016 3:44 PM CDT *Phone Message- Dr. Mcdermott Document Contains Addenda Addendum by SOWMYA JIMÉNEZ LPN on July 25, 2016 16:32:05 CDT Patient stated he was worried that his urine had a foul smell to it and he still had some discomfort with his prostatitis. Patient picked up the prescription that was prescribed by Dr. Mcdermott and started it yesterday. Patient was informed that the medication will take awhile to work. Patient was told to continue his antibiotics and call clinic Thursday if the symptoms worsen. From: BERTO ABEL To: Urology Nurse; Sent: 07/25/2016 15:44:47 CDT Subject: *Phone Message- Dr. Mcdermott Caller is: ( x ) Patient ( ) Mother ( ) Father ( ) Spouse ( ) Daughter ( ) Son ( ) Pharmacy ( ) Other: Physician: Dr. Mcdermott Patient MRN #: Reason for Call: Message: S: Pt called clinic to talk to nurse B: has concerns about appt yesterday A: R: Please call pt at [phone] Advice/Action: Source used: ( ) Verbalizes understanding [...] back cell phone number ( ) Source: [facility] [employer] Document Id: [id number] Miscellaneous - Gilberto Mcdermott M.D. - 07/24/2016 5:18 PM CDT Ambulatory Patient Summary [facility] [address] [place] [id number] Visit Information Name: DEBBIBOBBYELIAN Vu [facility] Number: [id number] Current Date: 07/24/2016 17:18:49 Physicians Attending Provider: GILBERTO MCDERMOTT MD Primary Care Provider: RONALD MOLINA MD DEBBIBOBBYMirella ELIAN HERNANDEZ has been given the following [...] nasal (fluticasone 50 mcg/inh nasal spray) 2 [place](s), Nostrils(Both), once a day glimepiride (Amaryl 4 mg oral tablet) 1 Tablet(s), Oral, once a day (in the morning) with the first meal of the day STOP Metformin. ipratropium nasal (Atrovent 21 mcg/inh nasal spray) 2 [place](s), Nostrils(Both), three times a day asneeded for Nasal congestion in each nostril / For nasal congestion. levoFLOXacin (Levaquin 750 mg oral tablet) 1 Tablet(s), Oral, once a day x 28 day(s[place] [address] lisinopril (lisinopril 2.5 mg oral tablet) 1 Tablet(s), Oral, once a day (in the morning) For high blood pressure and kidney protection. metoprolol (metoprolol tartrate 25 mg oral tablet) 1 Tablet(s), Oral, two times a day listed in doc by history / For high blood pressure. psyllium (Metamucil) Take it once a day. raNITIdine (raNITIdine 150 mg oral tablet) 1 Tablet(s), Oral, two times a day For stomach. tamsulosin (tamsulosin 0.4 mg oral capsule) 1 cap, Oral, once a day Stop Taking the Following Medications: Medication list as of 07-24-16 17:18 Attention: If you have any medications at home that are not on this list, DO NOT take them until youcontact your provider for clarification. Give a copy of your medication list to your primary care provider. Update your medication list any time medications or doses are changed and carry your medication list at all times in case of emergency. Electronically Signed By: Signed On: Your Allergies & Intolerances Substance Reaction Symptoms [...] Spasm Bladder Active Diverticulosis Colon Active Callus [place] Foot Bilateral Active Your Upcoming Appointments Date Time Location Provider 07/29/2016 20:00 [facility] 08/14/2016 11:35 [facility] Neurology Cam Garces MD 09/15/2016 15:15 [facility] Urology Gilberto Mcdermott MD 10/17/2016 09:15 [facility] Lab [facility] 10/17/2016 09:15 [facility] 10/23/2016 10:45 [facility] Jesse ALEX, Ronald Attention: Contact your local Clinic if further [...] if you dont have one. Go to [email or web address] and click on Create Your Account. Then, follow the directions to complete the online form. Youll be asked for your [facility] number which you can find at the top of this document. Your Goals/Additional instructions: Source: [facility] POWERCHART Document Id: [id number] Miscellaneous - Gilberto Mcdermott M.D. - 07/24/2016 5:18 PM CDT Ambulatory Discharge Medication List [facility] [address] [place], [place] [phone] Visit Information Name: ELIAN DAWKINS [facility] Number: [id number] Current Date: 07/24/2016 17:18:48 Attending Provider: GILBERTO MCDERMOTT MD Primary Care Provider: RONALD MOLINA MD [...] nasal (fluticasone 50 mcg/inh nasal spray) 2 [place](s), Nostrils(Both), once a day glimepiride (Amaryl 4 mg oral tablet) 1 Tablet(s), Oral, once a day (in the morning) with the first meal of the day STOP Metformin. ipratropium nasal (Atrovent 21 mcg/inh nasal spray) 2 [place](s), Nostrils(Both), three times a day asneeded for Nasal congestion in each nostril / For nasal congestion. levoFLOXacin (Levaquin 750 mg oral tablet) 1 Tablet(s), Oral, once a day x 28 day(s) Routed to [address] [address] lisinopril (lisinopril 2.5 mg oral tablet) 1 Tablet(s), Oral, once a day (in the morning) For high blood pressure and kidney protection. metoprolol (metoprolol tartrate 25 mg oral tablet) 1 Tablet(s), Oral, two times a day listed in doc by history / For high blood pressure. psyllium (Metamucil) Take it once a day. raNITIdine (raNITIdine 150 mg oral tablet) 1 Tablet(s), Oral, two times a day For stomach. tamsulosin (tamsulosin 0.4 mg oral capsule) 1 cap, Oral, once a day Stop Taking the Following Medications: Medication list as of 07-24-16 17:18 Attention: If you have any medications at home that are not on this list, DO NOT take them until youcontact your provider for clarification. Give a copy of your medication list to your primary care provider. Update your medication list any time medications or doses are changed and carry your medication list at all times in case of emergency. Electronically Signed By: Signed On: Additional Information: Source: [employer] Document Id: [id number] Miscellaneous - Sowmya Jiménez, L.P.N. - 07/24/2016 1:55 PM CDT Urology AUA/BPH Symptom Score Urology AUA/BPH Symptom Score Entered On: 07/24/2016 14:00 CDT Performed On: 07/24/2016 13:55 CDT by SOWMYA JIMÉNEZ LPN Urology AUA/BPH Symptom Score Emptying Bladder After Urinating : More than half the time Urinate 2 Hours After Urinating : Almost always Stop/Start Again When Urinating : Not at all Difficult to Postpone Urination : About half the time Weak Urinary Stream : Less than half the time Push/Strain to Begin Urination : Not at all Up to Urinate at Night : 5 or more times Total Symptom Score : 19 Feel About Urinary Condition : Terrible SOWMYA JIMÉNEZ LPN - 07/24/2016 13:55 CDT Source: [employer] Document Id: [id number] CDT!11 Miscellaneous - Sowmya Jiménez L.P.N. 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 Intake/History Entered On: 07/24/2016 13:55 CDT Performed On: 07/24/2016 13:49 CDT by SOWMYA JIMÉNEZ [facility] Intake Chief Complaint : recheck prostatitis-bladder discomfort, penis discomfort, frequency, and some urgency Temperature Core : 36.8 DegC(Converted to: 98.2 DegF) Peripheral Pulse Rate : 78 /min Systolic Blood Pressure : 126 mmHg Diastolic Blood Pressure : 84 mmHg NIBP Mean : 98 mmHg BP Location : Left upper extremity Blood Pressure Cuff Size : Regular Height : 172 cm(Converted to: 5 ft 8 inch(es), 68 inch(es)) TINO SOWMYAJAMESON Vu LPN - 07/24/2016 13:49 CDT General Info Information Given By : Patient Preferred Communication Mode : Verbal Languages : Bulgarian Is Patient Female and 13-50 no hysterectomy : No SOWMYA JIMÉNEZ LPN - 07/24/2016 13:49 CDT Subjective Pain Symptoms : Yes SOWMYA JIMÉNEZ LPN - 07/24/2016 13:49 CDT Pain Scale Pain Scale Verbal 0-10 : Open SOWMYA JIMÉNEZ LPN - 07/24/2016 13:49 CDT Pain Pain Assessment Grid Pain 1 Location : Bladder SOWMYA JIMÉNEZ LPN - 07/24/2016 13:49 CDT Dependent Habits Exposure to Tobacco Smoke : Other: Never Smoking Status : Never smoker Tobacco 2A : No Tobacco Use/Currently Using : No Tobacco Use/Last 30 Days : No Tobacco Use/Last 12 months : No Alcohol Use : No SOWMYA JIMÉNEZ LPN - 07/24/2016 13:49 CDT Source: [employer] Document Id: [id number] CDT!32 Miscellaneous - Ronald Molina M.D. - 01/24/2016 12:00 AM CDT Quality Measures Quality Measures Entered On: 07/24/2016 18:06 CDT Performed On: 01/24/2016 0:00 CDT by RONALD MOLINA MD Diabetes Date of Last Eye Exam : 01/24/2016 CDT (Comment: Mild nonproliferated retinopathy. [RONALD MOLINA MD - 07/24/2016 18:05 CDT] ) RONALD MOLINA MD - 07/24/2016 18:05 CDT Source: [facility] POWERCHART Document Id: [id number] CDT!3 documented in this encounter Plan of Treatment Upcoming Encounters Date Type Specialty Care Team Description 04/23/2022 Office Visit Cardiovascular Disease Blas Peck M.D. [address] [place] [address] [phone] (Wo rk) documented as of this encounter Visit Diagnoses Not on filedocumented in this encounter
--- OUTSIDE RECORDS SUMMARY | 2022-02-17 12:26 | XMS_ITS | Encounter Summary ---
:1950 Author Organization [facility] Address [address] [place] [address] Care Team Providers Name Role Phone Franco Molina M.D. Primary Care Provider Encounter Details Date Type Department Care Team Description 10/20/2016 Hospital Encounter HX [facility] Joan Padilla P.A.-C. [address] [place] [phone] (Wo rk) Social History Tobacco Use [...] Sign Reading Time Taken Comments Blood Pressure 116/70 10/20/2016 10:42 AM CDT Pulse 80 10/20/2016 10:42 AM CDT Temperature - - Respiratory Rate 16 10/20/2016 10:42 AM CDT Oxygen Saturation - - Inhaled Oxygen Concentration - - Weight 102 kg (224 lb 13.9 oz) 10/20/2016 10:42 AM CDT Height 172 cm (5' 7.72) 10/20/2016 10:42 AM CDT Body Mass Index 34.48 10/20/2016 10:42 AM CDT documented in this encounter Medications [...] mg mouth at bedtime. tablet blood-glucose meter [facility] [place], [place] Dispense glucose 0 05/2308/11/2018 meter, test strips [...] Progress Notes Juan A Padilla P.A.-C. - 10/20/2016 9:46 AM CDT [id number] CHIEF COMPLAINT/REASON FOR VISIT Multiple issues. HISTORY OF PRESENT ILLNESS Elvis is a patient of Dr. Alonso who has multiple issues that have been ongoing. He continues to have urinary tract symptoms. He describes urine that is foul smelling. He says that he sometimes gets some swelling of his penis. This is not an erection but he says the swelling comes and goes on its own.He is able to pass urine without any difficulty but he says it is foul smelling for about the last year. He has been seen by Dr. Mcdermott. He has been seen by Dr. Michelle at [facility]. He has been treated with different courses of antibiotics. He said Levaquin did not really make him feel very well but then he was on doxycycline from Dr. Michelle which he said it alleviated his symptoms but since then theyhave returned and he is wondering if he can do something about it. He also has diabetes, used to be fairly well controlled. He was stopped off of the metformin because of some gastrointestinal issues but his hemoglobin A1c has climbed is significantly since that time up to 8.2. He is going to need this addressed again. He also has had some issues with gastrointestinal things. He has been seen by Gastroenterology in [place] and I did review this note in detail today. He says that he is able to movehis bowel, sometimes they are loose, sometimes not. He was using metformin. He is also using Citrucel. His vital signs today are noted in the EMR. PHYSICAL EXAMINATION GENERAL: He appears in no acute distress. HEART: Has a regular rate and rhythm. No murmurs. LUNGS: Clear to auscultation. ABDOMEN: Obese but soft and nontender to palpation. GENITALIA: Penis is circumcised. There is no anatomical abnormalities of his penis. His testicles are descended. No mass appreciated. No inguinal hernia noted. I did do an urinalysis today that shows some glucose but otherwise no significant abnormalities. I wanted to do a prostate exam but the patient refused to have this done today. He says he has had too many of these done lately. IMPRESSION/REPORT/PLAN 1. Dysuria. There is many possible etiologies here, likely a prostatitis. He seemed to respond to doxycycline. It could also be an urethritis. I am going to go ahead and put him back on the doxycycline. We are going to treat him with this for a month at 100 mg 2 times daily and he is going to follow up with Dr. Mcdermott. He was supposed to this originally but missed his appointment so I am going to follow up to see if there is anything else that we should be doing. 2. Diabetes mellitus. This is poorly controlled. We talked about the risks and benefits of this. He checks sugars at home. I want to get him back on the metformin. His kidney function has been good andhe says his stomach symptoms have not really changed after stopping it so I am going to start him back on the metformin 500 mg. He is going to start once daily for a week and then he will go up to 2 tablets daily. 3. Constipation. He has been seen by gastroenterology and evaluated. I am going to put him back on his MiraLAX. I want him to keep his stools soft. This may change with the metformin. He will let us know if there is any changes. Otherwise, I am going to have him follow up with Dr. Molina in 3 months with a recheck of his hemoglobin A1c and a metabolic panel. He will follow up sooner if there is any questions or problems. Total time spent today with Mr. Dawkins was 35 minutes, of which 25 of it was in [id number] coordination of care and counseling. Juan A Padilla P.A.-C./shaylee Electronically Signed By: JUAN A PADILLA PA-C On: 10/22/2016 10:28 AM Source: [facility] [id number] Document Id: [id number] documented in this encounter Miscellaneous Notes Miscellaneous - Lulú Driscoll L.P.N. 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 Intake/History Entered On: 10/20/2016 10:44 CDT Performed On: 10/20/2016 10:42 CDT by LULÚ DRISCOLL LPN Intake Chief Complaint : f/u labs and conern with urine odor LULÚ DRISCOLL LPN - 10/20/2016 10:45 CDT Temperature Core : 36.4 DegC(Converted to: 97.5 DegF) (LOW) Peripheral Pulse Rate : 80 /min Respiratory Rate : 16 /min Systolic Blood Pressure : 116 mmHg Diastolic Blood Pressure : 70 mmHg NIBP Mean : 85 mmHg BP Location : Right upper extremity Blood Pressure Cuff Size : Large Height : 172 cm(Converted to: 5 ft 8 inch(es), 68 inch(es)) Actual Weight : 102 kg(Converted to: 224 lb 14 oz) Weight Source : Standing scale Dosing Weight Clinic : 102 kg Clinic BSA : 2.21 Body Mass Index : 34.48 kg/m2 LULÚ DRISCOLL LPN - 10/20/2016 10:42 CDT General Info Information Given By : Patient Languages : Sami Is Patient Female and 13-50 no hysterectomy : No LULÚ DRISCOLL LPN - 10/20/2016 10:42 CDT Subjective Pain Symptoms : Yes LULÚ DRISCOLL LPN - 10/20/2016 10:47 CDT Pain Scale Pain Scale Verbal 0-10 : Open LULÚ DRISCOLL LPN - 10/20/2016 10:47 CDT Pain Pain Assessment Grid Pain 1 Location : Abdomen (Comment: lower [LULÚ DRISCOLL LPN - 10/20/2016 10:47 CDT] ) LULÚ DRISCOLL LPN - 10/20/2016 10:47 CDT Dependent Habits Exposure to Tobacco Smoke : Other: Never Smoking Status : Never smoker Tobacco 2A : No Tobacco Use/Currently Using : No Tobacco Use/Last 30 Days : No Tobacco Use/Last 12 months : No LULÚ DRISCOLL LPN - 10/20/2016 10:42 CDT Source: [facility] POWERCHART Document Id: [id number] documented in this encounter Plan of Treatment Upcoming Encounters Date Type Specialty Care Team Description 04/23/2022 Office Visit Cardiovascular Disease Blas Peck M.D. [address] [facility] [place] [phone] (Wo rk) documented as of this encounter Procedures Procedure Name Priority Date/Time Associated Diagnosis Comme nts URINALYSIS, Routine 10/20/2016 11:00 AM Results for this MIDSTREAM, WITH CDT procedure ar e in CULTURE IF the results INDICATED section. documented in this encounter Results (ABNORMAL) Urinalysis, Midstream, with culture if indicated (10/20/2016 11:00 AM CDT) P athologist Signature Clarity Clear Clear POWERCHART HXUr Color Yellow Colorless POWERCHART Specific 1.010 POWERCHART [place], POCT, U Comment: Reference Range Specific [place]: 1.000-1.035 pH, POCT, Urine 5.5 <5.0 POWERCHART Comment: Reference Range pH: 5.0-8.0 Protein, Ur, Dip Negative Negative MGDL POWERCHAR T Glucose 250 (A) Negative MGDL POWERCHART Ketones, QL(U) Negative Negative MGDL POWERCHART HXBILIRUBIN Negative Negative POWERCHART HXBLOOD Negative Negative POWERCHART Leukocyte Esterase Negative Negative POWERCHART HXNITRITE Negative Negative POWERCHART Urobilinogen 0.2 0.2 MGDL POWERCHART Comment: Reference Range Urobilinogen: 0.2-1.0 mg/dL HXUR WBC. None Seen None Seen HPF POWERCHART HXUR RBC. None Seen None Seen HPF POWERCHART Specimen (Source) Anatomical Collection Method Collection Time Re ceived Time Location / / Volume Laterality Urine, First 10/20/2016 11:00 Voided AM CDT Juan A Padilla P.A.-C. LAB URINE ORDERABLES Performing Organization Address City/State/ZIP Code Phon e Number POWERCHART POWERCHART NA documented in this encounter Visit Diagnoses Not on filedocumented in this encounter Care Teams Golf Caddy Relationship Specialty Start Date End Date Phyo, Phunt, M.D. PCP - General 09/25/16 07/27/19 documented as of this encounter
--- OUTSIDE RECORDS SUMMARY | 2022-02-17 12:26 | XMS_ITS | Encounter Summary ---
:1950 Author Organization [facility] Address [address] [place] [address] Care Team Providers Name Role Phone Unavailable Primary Care Provider Unavailable Encounter Details Date Type Department Care Team Description 08/08/2016 Hospital Encounter HX [facility] ULTRASOUND Franco Molina M.D. [address] [place] [phone] Social History Tobacco Use Types Packs/Day [...] - - Height 172 cm (5' 7.72) 08/08/2016 11:54 AM CDT Body Mass Index - - documented in this encounter Medications at Time of Discharge Medication Sig Dispensed Refills Start Date End Date PSYLLIUM HUSK (METAMUCIL Take 1.7 g by mouth 0 ORAL) at bedtime. aspirin 81 mg chewable Chew 1 tablet daily. 0 07/09/2020 tablet atorvastatin Take 1 tablet by 0 07/17/20162017 (for_LIPITOR) 20 mg mouth at bedtime. tablet blood-glucose meter [facility] [place] Dispense glucose 0 05/2308/11/2018 meter, test strips [...] Visit Cardiovascular Disease Blas Peck M.D. [address] [place] [phone] (Wo rk) documented as of this encounter Visit Diagnoses Not on filedocumented in this encounter
--- OUTSIDE RECORDS SUMMARY | 2022-02-17 12:26 | XMS_ITS | Encounter Summary ---
:1950 Author Organization [facility] Address [address] [place] [address] Care Team Providers Name Role Phone Unavailable Primary Care Provider Unavailable Encounter Details Date Type Department Care Team Description 08/08/2016 Hospital Encounter HX [facility] Ronald Leong M.D. [address] [id number] Social History Tobacco Use Types Packs/Day [...] Sign Reading Time Taken Comments Blood Pressure 128/69 08/08/2016 10:58 AM CDT Pulse 74 08/08/2016 10:58 AM CDT Temperature - - Respiratory Rate 16 08/08/2016 10:58 AM CDT Oxygen Saturation - - Inhaled Oxygen Concentration - - Weight 103 kg (226 lb 3.1 oz) 08/08/2016 10:58 AM CDT Height 172 cm (5' 7.72) 08/08/2016 10:58 AM CDT Body Mass Index 34.68 08/08/2016 10:58 AM CDT documented in this encounter Medications at Time of Discharge Medication Sig Dispensed Refills Start Date End Date PSYLLIUM HUSK (METAMUCIL Take 1.7 g by mouth 0 ORAL) at bedtime. aspirin 81 mg chewable Chew 1 tablet daily. 0 07/09/2020 tablet atorvastatin Take 1 tablet by 0 07/17/20162017 (for_LIPITOR) 20 mg mouth at bedtime. tablet blood-glucose meter [facility] [place] Dispense glucose 0 05/2308/11/2018 meter, test strips [...] encounter Progress Notes Ronald Molina M.D. - 08/08/2016 10:42 AM CDT [id number] CHIEF COMPLAINT/REASON FOR VISIT 1. Followup after seeing urology. 2. Lower abdominal pain. HISTORY OF PRESENT ILLNESS Elvis is a 66-year-old male who presents to the clinic today for a followup after seeing urology. He saw Dr. Gilberto Mcdermott, Urologist on 07/24/2016 for pelvic pain and lower urinary tract symptoms. He was treated with Levaquin 750 mg daily for 3 weeks (prescription is for 28 tablets) for chronic prostatitis with acute exacerbation. He was advised to continue Tamsulosin for chronic benign prostatic hypertrophy. Dr. Mcdermott recommended checking for diverticulitis. His symptoms are worse and he feels that the antibiotic is not helping. Last night, he had 4 episodes of pain in his lower abdomen. He would go to the bathroom at those times and urinate with intermittent weak and strong stream. He has urinary frequency throughout the day. He denies any hematuria. He does notice a foul odor to his urine. We discussed his CT scan of the abdomen/pelvis from 04/18/2016. No acute findings and no significantoverall change from previous exam. His last colonoscopy was on 07/27/2015. Four polyps were found (three were tubular adenoma) and recommended to repeat in 2019. He has history of diverticulosis. He has occasional nausea, but no vomiting. He takes Metamucil 1 to 2 times a day and occasionally a stool softener. Additionally, he had polysomnogram with Dr. Cam Garces, Neurologist on 07/29/2016. It showed mild obstructive sleep apnea and a CPAP titration study was recommended. There are no additional questions, concerns, or complaints. MEDICATIONS Aspirin 81 mg by mouth daily. Atorvastatin 20 mg by mouth at bedtime. BuSpar 10 mg by mouth three times a day. Fluoxetine 40 mg by mouth daily. Fluticasone 50 mcg inhalation powder, 1 spray both nostrils daily. Amaryl 4 mg by mouth daily in the morning with food. Atrovent 21 mcg/inh nasal spray 2 sprays both nostrils three times a day as needed. Levaquin 750 mg by mouth daily for 28 days. Lisinopril 2.5 mg by mouth daily in the morning. Metoprolol tartrate 25 mg by mouth twice a day. Metamucil by mouth daily. Ranitidine 150 mg by mouth twice a day. Tamsulosin 0.4 mg by mouth daily. ALLERGIES Bactrim causing swelling. SYSTEMS REVIEW Please see HPI for [...] HISTORY He is and lives alone in [place]. He has three daughters. He is Citizen Of [place]. 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 He denies tobacco, drug, or alcohol abuse. FAMILY HISTORY Colon cancer in mother. Cataract in mother. Deep vein thrombosis in father. Diabetes mellitus in mother. Hypertension in mother. Irritable bowel syndrome in mother and grandfather. No family history ofprostate cancer. VITAL SIGNS HEIGHT: 172 cm WEIGHT: 102.6 kg. BMI: 34.68 kg/m2. TEMP: 37.3 Deg C. PULSE: 74 /min. RESP: 16 /min. SYSTOLIC: 128 mmHg. DIASTOLIC: 69 mmHg. PHYSICAL EXAMINATION GENERAL: Patient is sitting. No distress. Able to talk without interruption. SKIN: No rash, bruise, or nodules. HEAD: No facial rash, asymmetry, or sinus tenderness. EYES: PERRLA. EOMI. No pallor, icterus, or conjunctivitis. ENT: No nasal congestion, discharge, or bleeding. There is no ear infection or discharge. No mastoidtenderness. Tongue is moist and midline. No oral lesions. LYMPH NODES: No cervical, supraclavicular, axillary, inguinal, or femoral lymphadenopathy. PERIPHERAL VESSELS: Good femoral pulses. HEART: No carotid bruit. No JVD. Regular rhythm. There is no S3, gallop, murmur, or thrill. LUNGS: Normal respiratory effort. Clear to auscultation. Normal percussion. ABDOMEN: Moves with respiration. Bowel sounds present. Soft. No rebound tenderness, guarding, or rigidity. No organomegaly. No visible peristalsis. He has ventral hernia. GENITALIA: No urethral discharge. Normal testicles. No hydrocele or hernia. SPINE: No scoliosis or kyphosis. No spinous tenderness or mass. EXTREMITIES: No clubbing, cyanosis, edema, infection, or calf tenderness. IMPRESSION/REPORT/PLAN 1. Persistent lower abdomen and pelvic pain. He continues to have symptoms. There was no acute abdomen clinically. It could be multifactorial. We discussed possible etiologies and further evaluation and management. We will check labs and abdomen x-ray today. Because of his lower abdominal pain and BPH, need to check renal ultrasound as well. It was decided to have GI consultation at [facility] for their recommendations. 2. Chronic prostatitis with BPH with obstruction, dysuria, and urinary frequency. He saw Dr. Mcdermott, Urologist and placed on Levaquin. He will take Levaquin as recommended and continue Tamsulosin. Wewill check UA with microscopic and urine culture today and follow these results. He will follow withDr. Mcdermott in September 2016. 3. Tubular adenoma colon polyp x 3. His last colonoscopy was done on 07/27/2015 and recommended to repeat in 3 years. If he continues to have abdominal pain, he may need diagnostic colonoscopy. 4. Colon diverticulosis. He needs to make sure fiber intake is adequate. He will continue Metamucil and stool softener as needed. He needs to drink enough water. 5. Obstructive sleep apnea. He had polysomnogram and showed mild obstructive sleep apnea. He needs CPAP sleep study as recommended by Dr. Garces. Todays studies: BMP, CBC, HFP, UA with culture, and Abdomen x-ray. Patient will be notified with results & recommendations. The patient will return to the clinic after GI consultation. Administrative Billing 30 minutes of this 40 minute visit was spent in face to face counseling and coordination of care. This document serves as a record of services personally performed by Dr. Ronald Molina. It was created on their behalf by Balaji Larios, a trained medical records technician. The creation of this record is based on the scribe's personal observations and the provider's statements to them. This document has been checked and approved by the attending provider. Ronald Molina M.D./melissa Electronically Signed By: RONALD MOLINA MD On: 08/10/2016 01:45 PM Modified by and Electronically Signed by: RONALD MOLINA MD On: 08/10/2016 01:45 PM Source: [facility] [id number] Document Id: [id number] documented in this encounter Miscellaneous Notes Telephone Encounter - Alec Garcia R.N. - 08/19/2016 10:04 AM CDT Fluoxetine - tabs not covered Document Contains Addenda Addendum by RONALD MOLINA MD on August 19, 2016 11:04:10 CDT From: RONALD MOLINA MD To: RENETTA Owen Medication Refill; Cc: RENETTA Molina Nurse; Sent: 08/19/2016 11:04:10 CDT Subject: RE: Fluoxetine - tabs not covered Actions: Notify patient- refer to General Message, Notify patient of Future Order Please see below for new Rx. Addendum by RONALD MOLINA MD on August 19, 2016 11:03:10 CDT Submitted: Order:FLUoxetine (FLUoxetine 40 mg oral capsule) 1 cap(s) PO Daily AM Qty: 90 cap(s) Refills: 3 Substitutions Allowed Route To Pharmacy - [id number] Signed by RONALD MOLINA MD From: ALEC GARCIA RN ( [place] Medication Refill) To: RONALD MOILNA MD; Sent: 08/19/2016 10:04:31 CDT Subject: Fluoxetine - tabs not covered Caller is: ( _ ) Patient ( _ ) Mother ( _ ) Father ( _ ) Spouse ( _ ) Daughter ( _ ) Son ( x ) Pharmacy ( _ ) Other: _ Provider: Jesse Pharmacy: [facility] Name of Medications Needing Refill: Fluoxetine Last Refill Date: _ Additional Information: Tablets are not covered by insurance. Ok to change to caps? 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 - 08/08/2016 2:22 PM CDT Abdominal x-ray and renal ultrasound 08/08/2016 Document Contains Addenda Addendum by GILBERTO MCDERMOTT MD on August 11, 2016 08:09:37 CDT From: GILBERTO MCDERMOTT MD To: RONALD MOLINA MD; Sent: 08/11/2016 08:09:37 CDT Show up: 08/11/2016 08:09:00 CDT Subject: RE: Abdominal x-ray and renal ultrasound 08/08/2016 noted Addendum by KIKE REEDER LPN on August 08, 2016 14:46:39 CDT Spoke with: ( x ) Patient ( _ ) Parent ( _ ) Spouse ( _ ) Child ( ) Other: _ Call back telephone number: [phone] Reason for Call: -Test results Chief Complaint: Patient notified of results and Dr. Molina's recommendations as listed below. _ Patient/Caller response to Education/Information given: ( x ) Verbalizes understanding of instructions ( _ ) Provide intervention per provider instruction ( _ ) Reinforce information already given ( _ ) Reinforce Plan of Care ( _ ) Provide preprinted information by mail (if applicable) Source/Reference used (if applicable): Jesse OK to leave message on voice mail? NA OK to send message via patient portal? NA Patient told to expect return call: NA ( _ ) today ( _ ) tomorrow ( _ ) next work day Callers preferred language for Healthcare discussion: Citizen Of [place] Was an staff interpreter used for this call? No Other ( --x ) No further action needed at this time. From: RONALD MOLINA MD To: Jesse Nurse; Cc: GILBERTO MCDERMOTT MD; LAYNE POWELL APRN, RN; Sent: 08/08/2016 14:22:09 CDT Show up: 08/08/2016 14:15:00 CDT Subject: Abdominal x-ray and renal ultrasound 08/08/2016 Actions: Notify patient of results Please call. Abdominal x-ray showed stool in colon. He needs to make sure he eats enough fiber in diet. Kidney ultrasound showed right kidney cyst and upper limits of normal bladder wall thickening. It could be due to cystitis/bladder outlet obstruction. He needs to continue Levaquin Rx and follows with Urology. Result type: XR Abdomen 2 Views Result date: August 08, 2016 12:47 CDT Result status: Auth (Verified) Result title: XR Abdomen 2 Views Performed by: FROILAN YIP MD on August 08, 2016 13:58 CDT Verified by: FROILAN YIP MD on August 08, 2016 13:58 CDT Encounter info: [id number], [facility], 08/08/2016 - * Final Report * Reason For Exam Lower abdominal pain Report EXAM: XR Abdomen 2 Views INDICATION: Lower abdominal pain COMPARISON: 03 January 2016. IMPRESSION: See below findings. FINDINGS: Exam is mildly limited due to decreased penetration of the abdominal soft tissues. Prominent colonic stool. No definite abnormal bowel dilatation identified to suggest bowel obstruction. No visualized free air. Post cholecystectomy clips. Result type: US Renal Result date: August 08, 2016 12:44 CDT Result status: Auth (Verified) Result title: US Renal Performed by: FROILAN YIP MD on August 08, 2016 13:05 CDT Verified by: FROILAN YIP MD on August 08, 2016 13:05 CDT Encounter info: [id number], [facility], 08/08/2016 - * Final Report * Reason For Exam Lower abdominal pain. BPH Report Exam: US Renal Indication: Lower abdominal pain. BPH Comparison: None IMPRESSION: 1. Right superomedial renal parenchymal cyst. 2. Mild prominence in the left inferior intrarenal collecting system/renal pelvis. 3. Upper limits of normal bladder wall thickening. Rule out cystitis/bladder outlet obstruction. FINDINGS: Right superomedial renal parenchymal cyst measures 1.7 [...] left ureteral jet was not identified. The bladder wall measures 5 mm in width which is at the upper limits of normal. Clinical correlation is suggested. No significant post void residual. The bladder demonstrates no additional abnormality. No visualized ascites on the presented views. Source: [facility] [employer]Lifestyles Document Id: [id number] Kami - Ronald Molina M.D. - 08/08/2016 11:38 AM CDT GI consult at [facility] Document Contains Addenda Addendum by KIKE REEDER LPN on August 18, 2016 10:28 CDT Patient scheduled on 08/25/2016 at 3:05pm with the Division of Gastroenterology. Addendum by KIKE REEDER LPN on August 08, 2016 13:18:43 CDT Online referral completed and submitted to [facility]. They will contact patient directly with appoinment information. From: RONALD MOLINA MD To: RENETTA Molina Nurse; Sent: 08/08/2016 11:38:48 CDT Subject: GI consult at [facility] Actions: Notify patient- refer to General Message, Notify patient of Future Order Please refer him to see GI at [facility]. Dx: Persistent lower abdominal/pelvic pain. Source: [facility] POWERCHART Document Id: [id number] Miscellaneous - Kike Reeder L.PMichelleN. - 08/08/2016 10:58 AM CDT Adult Network Lead Intake/History Adult Network Lead Intake/History Entered On: 08/08/2016 11:01 CDT Performed On: 08/08/2016 10:58 CDT by KIKE REEDER LPN Intake Chief Complaint : 1. Follow-up from Urology - continues to have lots of lower abdominal and pelvic pain, foul odor to urine Temperature Core : 37.3 DegC(Converted to: 99.1 DegF) Peripheral Pulse Rate : 74 /min Respiratory Rate : 16 /min Systolic Blood Pressure : 128 mmHg Diastolic Blood Pressure : 69 mmHg NIBP Mean : 89 mmHg BP Location : Left upper extremity Blood Pressure Cuff Size : Large Height : 172 cm(Converted to: 5 ft 8 inch(es), 68 inch(es)) Actual Weight : 102.60 kg(Converted to: 226 lb 3 oz) Weight Source : Standing scale Dosing Weight Clinic : 102.6 kg Clinic BSA : 2.21 Body Mass Index : 34.68 kg/m2 KIKE REEDER LPN - 08/08/2016 10:58 CDT General Info Information Given By : Patient Preferred Communication Mode : Verbal, Written Languages : Citizen Of [place] Is Patient Female and 13-50 no hysterectomy : No KIKE REEDER LPN - 08/08/2016 10:58 CDT Subjective Pain Symptoms : Yes KIKE REEDER LPN - 08/08/2016 10:58 CDT Pain Scale Pain Scale Verbal 0-10 : Open KIKE REEDER LPN - 08/08/2016 10:58 CDT Pain Pain Assessment Grid Pain 1 Pain 2 Location : Abdomen Pelvic KIKE REEDER LPN - 08/08/2016 10:58 CDT 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 [address] [place] [address] [phone] (Wo rk) documented as of this encounter Procedures Procedure Name Priority Date/Time Associated Diagnosis Comme nts DX ABDOMEN SUPINE Routine 08/08/2016 12:21 PM Res ults for this WITH UPRIGHT OR CDT procedure ar e in DECUBITUS 2 VIEWS the result s section. US KIDNEYS Routine 08/08/2016 12:09 PM Results for this BILATERAL WITH CDT procedure are in BLADDER the results section. documented in this encounter Results DX Abdomen Supine with Upright or Decubitus 2 Views (08/08/2016 12:21 PM CDT) Anatomical Region Laterality Modality Abdomen Right Radiographic Imaging Specimen (Source) Anatomical Collection Method Collection Time Re ceived Time Location / / Volume Laterality 08/08/2016 12:21 PM CDT Addenda Addendum by Provider, Denise Montes o n 08/08/2016 12:21 PM CDT RAD^^^OW XR Abdomen 2 Views 08/08/2016 12:21:03 Impressions 08/08/2016 1:58 PM CDT See below findings. FINDINGS: Exam is mildly limited due to decreased penetration of the abdominal soft tissues. Prominent colonic stool. No definite abnormal bowel dilatation id entified to suggest bowel obstruction. No visualized free air. Post cholecystectomy clips. Narrative 08/08/2016 1:58 PM CDT EXAM: XR Abdomen 2 Views INDICATION: Lower abdominal pain COMPARISON: 03 January 2016. Procedure Note Froilan Yip M.D. / Provider, His marni M.D. - 09/29/2016 EXAM: XR Abdomen 2 Views INDICATION: Lower abdominal pain COMPARISON: 03 January 2016. IMPRESSION: See below findings. FINDINGS: Exam is mildly limited due to decreased penetration of the abdominal soft tissues. Prominent colonic stool. No definite abnormal bowel dilatation id entified to suggest bowel obstruction. No visualized free air. Post cholecystectomy clips. Fany Laurent(R), Anastasiia(R)(M) IMG DIAGNOSTIC IMAG ING PROCEDURES US Retroperitoneum Kidney Bilateral (08/08/2016 12:09 PM CDT) Anatomical Region Laterality Modality Abdomen, Renal Bilateral Ultrasound Specimen (Source) Anatomical Collection Method Collection Time Re ceived Time Location / / Volume Laterality 08/08/2016 12:09 PM CDT Addenda Addendum by Provider, Denise Montes o n 08/08/2016 12:09 PM CDT RAD^^^OW US Renal 08/08/2016 12:09:23 Addendum by ProviderJyoti M.D. o n 08/08/2016 12:47 PM CDT RAD^^^OW US Renal 08/08/2016 12:47:02 Impressions 08/08/2016 1:05 PM CDT 1. Right superomedial renal parenchymal cyst. ?? 2. Mild prominence in the left inferior intrarenal collecting system/renal pelvis. ?? 3. Upper limits of normal bladder wall t hickening. Rule out cystitis/bladder outlet obstruction. FINDINGS: Right superomedial renal paren chymal cyst measures 1.7 x 1.7 x 1.3 cm in diameter. Mild prominence in the left inferior int rarenal collecting system and renal pelvis may represent mild hydronep hrosis. No evidence of right-sided hydronephrosis. Bilateral kidneys demonstrate otherwise normal echogenicity with no focal masses seen. The right kidney joselin ures 10.7 cm length and the left kidney measures 10.7 cm in length. A right ureteral jet identified. A left ureteral jet was not identified. The bladder wall measures 5 mm in width which is at the upper limits of normal. Clinical correla tion is suggested. No significant post void residual. The blad horace demonstrates no additional abnormality. No visualized ascites on the presented v iews. Narrative 08/08/2016 1:05 PM CDT Exam: ??US Renal Indication: ??Lower abdominal pain. BPH Comparison: ??None Procedure Note Froilan Yip M.D. / Provider, His marni M.D. - 09/29/2016 Exam: US Renal Indication: Lower abdominal pain. BPH Comparison: None IMPRESSION: 1. Right superomedial renal parenchymal cyst. 2. Mild prominence in the left inferior intrarenal collecting system/renal pelvis. 3. Upper limits of normal bladder wall t hickening. Rule out cystitis/bladder outlet obstruction. FINDINGS: Right superomedial renal paren chymal cyst measures 1.7 x 1.7 x 1.3 cm in diameter. Mild prominence in the left inferior int rarenal collecting system and renal pelvis may represent mild hydronep hrosis. No evidence of right-sided hydronephrosis. Bilateral kidneys demonstrate otherwise normal echogenicity with no focal masses seen. The right kidney joselin ures 10.7 cm length and the left kidney measures 10.7 cm in length. A right ureteral jet identified. A left ureteral jet was not identified. The bladder wall measures 5 mm in width which is at the upper limits of normal. Clinical correla tion is suggested. No significant post void residual. The blad horace demonstrates no additional abnormality. No visualized ascites on the presented v iews. Ralph Morales Jr., RMichelleD.M.S. IMG US PROCEDURES documented in this encounter Visit Diagnoses Not on filedocumented in this encounter
--- OUTSIDE RECORDS SUMMARY | 2022-02-17 12:26 | XMS_ITS | Encounter Summary ---
:1950 Author Organization [facility] Address [address] [place] [address] Care Team Providers Name Role Phone Franco Molina M.D. Primary Care Provider Encounter Details Date Type Department Care Team Description 10/17/2016 Hospital Encounter HX [facility] Franco Molina M.D. [address] [facility], [place] [phone] Social History Tobacco Use Types Packs/Day [...] - Height 172 cm (5' 7.72) 10/17/2016 8:48 AM CDT Body Mass Index - - [...] mouth at bedtime. tablet blood-glucose [place] [facility] [place]pense glucose 0 05/2308/11/2018 meter, test strips [...] of this encounter Miscellaneous Notes Miscellaneous - Michelle Coleman M.D. - 10/28/2016 7:03 AM CDT Results Notification Document Contains Addenda Addendum by CHANDRA BUI LPN on October 28, 2016 10:21:00 CDT Spoke with: ( x_ ) Patient ( _ ) Parent ( _ ) Spouse ( _ ) Child ( ) Other: _ Call back telephone number: [phone]_ Reason for Call: -result notification Chief Complaint: Patient has had appointment with Olga in regards to diabetes on 10/20/16. Patient/Caller response to Education/Information given: ( x ) Verbalizes understanding of instructions ( _ ) Provide intervention per provider instruction ( _ ) Reinforce information already given ( _ ) Reinforce Plan of Care ( _ ) Provide preprinted information by mail (if applicable) Source/Reference used (if applicable): _ OK to leave message on voice mail? N/A OK to send message via patient portal? N/A Patient told to expect return call: ( No further call back needed ) today ( _ ) tomorrow ( _ ) next work day Callers preferred language for Healthcare discussion: Estonian Was an rn informatics used for this call? no Other ( --nothing further needed at this time. ) Addendum by CHANDRA BUI LPN on October 28, 2016 09:13:18 CDT Attempted to contact patient. Message left to return my call. From: MICHELLE COLEMAN MD To: RENETTA Coleman Nurse; Sent: 10/28/2016 07:03:48 CDT ! Show up: 10/28/2016 07:03:48 CDT Subject: Results Notification Actions: Notify patient of results Reminder Comments: diabetes out of control see Phyo Results: Date Result Name Ind Value Ref Range 10/17/2016 09:13 HCV Ab [facility] Negative (Negative - ) 10/17/2016 09:13 Sodium Lvl 135 mmol/L (135 - 145) 10/17/2016 09:13 Potassium Lvl 5.0 mmol/L (3.6 - 5.2) 10/17/2016 09:13 Chloride 101 mmol/L (98 - 107) 10/17/2016 09:13 CO2 27 mmol/L (22 - 29) 10/17/2016 09:13 AGAP 7 mmol/L (7 - 15) 10/17/2016 09:13 Glucose Lvl (H) 179 mg/dL (70 - 139) 10/17/2016 09:13 Creatinine 1.01 mg/dL (0.80 - 1.30) 10/17/2016 09:13 EGFR (MDRD) >60 mL/min/1.73m2 (>=60 - ) 10/17/2016 09:13 EGFR (MDRD) >60 mL/min/1.73m2 (>=60 - ) 10/17/2016 09:13 BUN 10 mg/dL (8 - 24) 10/17/2016 09:13 Calcium Lvl 9.7 mg/dL (8.8 - 10.3) 10/17/2016 09:13 AST 19 unit/L (8 - 48) 10/17/2016 09:13 ALT 15 unit/L (7 - 55) 10/17/2016 09:13 CK 267 U/L (52 - 336) 10/17/2016 09:13 Hgb A1c (H) 8.2 % A1C ( - <=5.6) Source: [facility] POWERCHART Document Id: [id number] Electronically signed by Conversion, [facility] Electrical Worker [id number] at 10/29/2016 7:07 AM CDT documented in this encounter Plan of Treatment Upcoming Encounters Date Type Specialty Care Team Description 04/23/2022 Office Visit Cardiovascular Disease Blas Peck M.D. [address] [place] [address] [phone] (Wo rk) documented as of this encounter Procedures Procedure Name Priority Date/Time Associated Diagnosis Comme nts HCV AB SCRN Routine 10/17/2016 9:13 AM Results f or this W/REFLEX TO HCV CDT procedure ar e in PCR, S the results section. documented in this encounter Results HCV Ab w/Reflex to HCV PCR, S (medicare) (10/17/2016 9:13 AM CDT) athologist Signature HXHCV Ab Negative Negative POWERCHART [facility] Comment: Ziypyn-ey-hajvmt ratio is <1.00. Test Performed by: [address] [address] Specimen (Source) Anatomical Collection Method Collection Time Re ceived Time Location / / Volume Laterality Blood 10/17/2016 9:13 AM CDT Franco Molina M.D. LAB MICROBIOLOGY - BLOOD ORD ERABLES Performing Organization Address City/State/ZIP Code Phon e Number POWERCHART documented in this encounter Visit Diagnoses Not on filedocumented in this encounter Care Teams Front Desk Agent Relationship Specialty Start Date End Date Franco Molina M.D. PCP - General 09/25/16 07/27/19 documented as of this encounter
--- OUTSIDE RECORDS SUMMARY | 2022-02-17 12:26 | XMS_ITS | Encounter Summary ---
:1950 Author Organization [facility] Address [address] [place] [address] Care Team Providers Name Role Phone Franco Molina M.D. Primary Care Provider Encounter Details Date Type Department Care Team Description 12/17/2016 Hospital Encounter HX [facility] Brianna Mills P.AMichelle-CMichelle [address] [phone] (Wo rk) Social History Tobacco [...] Sign Reading Time Taken Comments Blood Pressure 114/64 12/17/2016 11:00 AM CDT Pulse - - Temperature - - Respiratory Rate - - Oxygen Saturation - - Inhaled Oxygen Concentration - - Weight 103 kg (227 lb 4.7 oz) 12/17/2016 11:00 AM CDT Height 174.3 cm (5' 8.62) 12/17/2016 11:00 AM CDT Body Mass Index 33.94 12/17/2016 11:00 AM CDT documented in this encounter Medications [...] mg mouth at bedtime. tablet blood-glucose meter [facility] [place] Dispense glucose 0 05/2308/11/2018 [...] Visit Cardiovascular Disease Blas Peck M.D. [address] [place] [address] [place] [phone] (Wo rk) documented as of this encounter Visit Diagnoses Not on filedocumented in this encounter Care Teams Registered Pharmacist Relationship Specialty Start Date End Date Franco Molina M.D. PCP - General 09/25/16 07/27/19 documented as of this encounter
--- OUTSIDE RECORDS SUMMARY | 2022-02-17 12:26 | XMS_ITS | Encounter Summary ---
:1950 Author Organization [facility] Address [address] [place] [address] Care Team Providers Name Role Phone Unavailable Primary Care Provider Unavailable Encounter Details Date Type Department Care Team Description 09/15/2016 Hospital Encounter HX [facility] Mihir Wan M.D. [address] [place] [address] [phone] (Wo rk) Social History Tobacco [...] mg mouth at bedtime. tablet blood-glucose meter [facility] [place] Dispense glucose 0 05/2308/11/2018 [...] mouth daily. documented as of this encounter Consult Notes Jesus Alberto Baldwin - 09/15/2016 10:12 AM CDT [id number] CHIEF COMPLAINT/REASON FOR VISIT This is a referral from Dr. Molina for hip arthritis seen on x-ray. HISTORY OF PRESENT ILLNESS Mr. Dawkins is a pleasant 66-year-old male who presents today on referral from Dr. Molina for hip arthritis. The patient reports that his hips do not really bother him. He is bothered more by his prostate issues. He states that he will notice occasional pains in his groin with certain movements, but in particular he is not limited by any of these pains. He states that he is able to do all of his activities of daily living without limitations. He comes on referral today by Dr. Molina simply for arthritisseen in his hips during additional workups that were done. Patient denies any recent weight change, fever, chills, night sweats, nausea, vomiting. Please see orthopedic intake form dated 09/15/2016 for details of patient's past medical, social, surgical, family, medication and allergy history. This was reviewed and signed by myself on today's date. SYSTEMS REVIEW As per HPI. All other systems are negative. VITAL SIGNS Height 172 cm, weight 103.2 kg, BMI 34.88, respiratory rate 17. PHYSICAL EXAMINATION GENERAL: This is a well-nourished, well-developed male. He is alert and oriented x3. No acute distress. He is cooperative and responds appropriately to all questions. MUSCULOSKELETAL: Examination of bilateral hips reveals full range of motion. Full strength. No pain with internal or external rotation. No pain with special testing. DIAGNOSTICS X-ray from 08/28/2016 was reviewed. This shows moderate to advanced degenerative changes of the right hip and moderate prominent degenerative changes of the left hip. IMPRESSION/REPORT/PLAN Bilateral hip osteoarthritis per x-ray. PLAN: Elvis reports that he is having no issues with limiting hip arthritis. At this point, he wishes to take a wait and see approach. He is comfortable with not doing any further workup or treatment of his hips. He will notify us in the future when this becomes a problem. All questions were answered to his satisfaction. Dr. Teixeira was present for discussion with patient. Jesus Alberto Baldwin P.A.-C./shaylee cc: Ronald Molina M.D. [facility] in [address] [address] Electronically Signed By: JESUS ALBERTO BALDWIN On: 09/16/2016 09:16 AM Source: [facility] MHSDOLBEYNONRADSYS Document Id: [id number] Addendum by MIHIR TEIXEIRA MD on September 16, 2016 12:02 CDT Patient seen and examined with Jesus Alberto Baldwin. Agree with above assessment and plan. Modified by and Electronically Signed by: MIHIR TEIXEIRA MD On: 09/16/2016 12:02 PM Source: [facility] POWERCHART Document Id: [id number] documented in this encounter Miscellaneous Notes Miscellaneous - Jesus Alberto Baldwin - 09/15/2016 11:05 AM CDT Ambulatory Patient Summary [address] [id number] Visit Information Name: ELVIS DAWKINS [facility] Number: [id number] Current Date: 09/15/2016 11:05:43 Physicians Attending Provider: MIHIR TEIXEIRA MD Primary Care Provider: RONALD MOLINA MD [...] nasal (fluticasone 50 mcg/inh nasal spray) 2 [place](s), Nostrils(Both), once a day glimepiride (Amaryl 4 mg oral tablet) 1 Tablet(s), Oral, once a day (in the morning) with the first meal of the day STOP Metformin. ipratropium nasal (Atrovent 21 mcg/inh nasal spray) 2 [place](s), Nostrils(Both), three times a day asneeded for [...] or tea / [facility]. psyllium (Metamucil) 1.7 gm, Oral, two times a day dissolve in 8 oz of fluid / You should try Citrucel if Metamucil doesn't help constipation, as per GI from [facility]. raNITIdine (raNITIdine 150 mg oral tablet) 1 Tablet(s), Oral, two times a day For stomach. tamsulosin (tamsulosin 0.4 mg oral capsule) 1 cap, Oral, once a day Stop Taking the Following Medications: Medication list as of 09-15-16 11:05 Attention: If you have any medications at home that are not on this list, DO NOT take them until youcontact your provider for clarification. Give a copy of your medication list to your primary care provider. Update your medication list any time medications or doses are changed and carry your medication list at all times in case of emergency. Electronically Signed By: JESUS ALBERTO BALDWIN Signed On:15-SEP-2016 11:05:29 Your Allergies & Intolerances Substance Reaction Symptoms [...] Spasm Bladder Active Diverticulosis Colon Active Callus Malcolm Foot Bilateral Active Osteoarthritis Hip Armando Per X-ray Active 08/28/2016 Your Upcoming Appointments Date Time Location Provider 10/17/2016 09:15 [facility] 10/17/2016 [...] if you dont have one. Go to [email or web address] and click on Create Your Account. Then, follow the directions to complete the online form. Youll be asked for your [facility] number which you can find at the top of this document. Your Goals/Additional instructions: Source: [facility] POWERCHART Document Id: [id number] Miscellaneous - Jesus Alberto Baldwin - 09/15/2016 11:05 AM CDT Ambulatory Discharge Medication List [address] [id number] Visit Information Name: ELVIS DAWKINS [facility] Number: [id number] Current Date: 09/15/2016 11:05:42 Attending Provider: MIHIR TEIXEIRA MD Primary Care Provider: RONALD MOLINA MD LEVIS DAWKINS has been given the following list [...] nasal (fluticasone 50 mcg/inh nasal spray) 2 [place](s), Nostrils(Both), once a day glimepiride (Amaryl 4 mg oral tablet) 1 Tablet(s), Oral, once a day (in the morning) with the first meal of the day STOP Metformin. ipratropium nasal (Atrovent 21 mcg/inh nasal spray) 2 [place](s), Nostrils(Both), three times a day asneeded for [...] or tea / As recommended byGI from [facility]. psyllium (Metamucil) 1.7 gm, Oral, two times a day dissolve in 8 oz of fluid / You should try Citrucel if Metamucil doesn't help constipation, as per GI from [facility]. raNITIdine (raNITIdine 150 mg oral tablet) 1 Tablet(s), Oral, two times a day For stomach. tamsulosin (tamsulosin 0.4 mg oral capsule) 1 cap, Oral, once a day Stop Taking the Following Medications: Medication list as of 09-15-16 11:05 Attention: If you have any medications at home that are not on this list, DO NOT take them until youcontact your provider for clarification. Give a copy of your medication list to your primary care provider. Update your medication list any time medications or doses are changed and carry your medication list at all times in case of emergency. 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 Molina for hip arthritis. The hips dont really hurt that bad. Has noticed sometimes with certain movements some sharp pain in the groin. Muscular pain sometimes. Respiratory Rate : 17 /min Height : 172 cm(Converted to: 5 ft 8 inch(es), 68 inch(es)) Actual Weight : 103.2 kg(Converted to: 227 lb 8 oz) Weight Source : Standing scale Dosing Weight Clinic : 103.2 kg Clinic BSA : 2.22 Body Mass Index : 34.88 kg/m2 [facility] - 09/15/2016 10:41 CDT General Info Information Given By : Patient Languages : Romanian Is Patient Female and 13-50 no hysterectomy : No [facility] - 09/15/2016 10:41 CDT Subjective Pain Symptoms : Yes [facility] - 09/15/2016 10:41 CDT Dependent Habits Exposure to Tobacco Smoke : Other: Never Smoking Status : Never smoker Tobacco 2A : No Tobacco Use/Currently Using : No Tobacco Use/Last 30 Days : No Tobacco Use/Last 12 months : No [facility] - 09/15/2016 10:41 CDT Source: [facility] POWERCHART Document Id: [id number] CDT!23 documented in this encounter Plan of Treatment Upcoming Encounters Date Type Specialty Care Team Description 04/23/2022 Office Visit Cardiovascular Disease Blas Peck M.D. [address] [place] [phone] (Wo rk) documented as of this encounter Visit Diagnoses Not on filedocumented in this encounter
--- OUTSIDE RECORDS SUMMARY | 2022-02-17 12:26 | XMS_ITS | Encounter Summary ---
:1950 Author Organization [facility] Address [address] [place] [address] Care Team Providers Name Role Phone Unavailable Primary Care Provider Unavailable Encounter Details Date Type Department Care Team Description 06/19/2016 Hospital Encounter HX [facility] Shemar Garces M.D., M.P.H. [address] [phone] (Wo rk) Social History Tobacco [...] Sign Reading Time Taken Comments Blood Pressure 120/78 06/19/2016 9:21 AM SENIOR MANAGER ASSET PROTECTION Pulse 68 06/19/2016 9:21 AM SENIOR MANAGER ASSET PROTECTION Temperature - - Respiratory Rate 20 06/19/2016 9:21 AM SENIOR MANAGER ASSET PROTECTION Oxygen Saturation - - Inhaled Oxygen Concentration - - Weight 99.3 kg (218 lb 14.7 oz) 06/19/2016 9:21 AM SENIOR MANAGER ASSET PROTECTION Height 172 cm (5' 7.72) 06/19/2016 9:21 AM SENIOR MANAGER ASSET PROTECTION Body Mass Index 33.56 06/19/2016 9:21 AM SENIOR MANAGER ASSET PROTECTION documented in this encounter Medications at Time of Discharge Medication Sig Dispensed Refills Start Date End Date PSYLLIUM HUSK Take 1.7 g by mouth at 0 04/25/2016 (METAMUCIL ORAL) bedtime. aspirin 81 mg chewable Chew 1 tablet daily. 0 07/09/2020 tablet blood-glucose meter Dispense glucose 0 05/23/2015 08/11/2018 [facility] meter, test strips and lancets covered by [...] mg 2 (two) times a day. tablet documented as of this encounter Consult Notes Ehsan Garces M.D., M.P.H. - 06/19/2016 8:48 AM CST [id number] REFERRAL SOURCE Ronald Molina MD. CHIEF COMPLAINT/REASON FOR VISIT Sleep apnea. HISTORY OF PRESENT ILLNESS Mr. Dawkins is a 66-year-old gentleman who has a history of sleep apnea and headaches and violent dreams during sleep. He has a headache when he wakes up in the morning. 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 He is and no one sleeps in the same room. He has apparently been told in the past that he has sleep apnea and should have a sleep study but has declined that thus far. He has a history of someintra-ocular hemorrhaging and is being followed at the [facility] for same. Today his review of systems his review of systems is negative except as noted above. The patient hasa history of violent dreams where he is fighting with somebody. He has not injured himself yet but he knows he moves around and kicks and punches and this has been ongoing for many months. PHYSICAL EXAMINATION GENERAL: He is awake, alert, cooperative and talkative. His [place] sleepiness score today is 5. VITAL SIGNS: His blood pressure is 120/78, respiratory rate is 20, heart rate is 68. He weighs 99.3 kg and is 172 cm tall. His BMI is 33.5. HEENT: Normal and atraumatic. NEUROLOGIC: His cranial nerve examination is normal including visual alcocer and extraocular movements. Facial strength is normal. He has a Mallampati 4 score with macroglossia and retrognathia. LUNGS: Clear to auscultation. His motor examination reveals normal bulk, tone, and strength throughout. He has no pronator drift. He has no tremor or cogwheel rigidity. Deep tendon reflexes are 0 and symmetric. His station and gait are normal. Sensation to light touch is normal. IMPRESSION/REPORT/PLAN The patient has been reported to have obstructive sleep apnea. He certainly has the anatomy and riskfactors. I am going to order a split-night sleep study to determine if he has this and the most appropriate way to treat it. 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 I am going to plan to see the patient back after this study. I am not going to make any changes to his therapy. The patient has agreed to undergo these studies after I explained the importance of it. Total time with patient was 40 minutes, 25 in counseling. Ehsan Garces M.D./shaylee Electronically Signed By: EHSAN GARCES MD MPH On: 07/04/2016 04:23 PM Source: [facility] MHSDOLBEYNONRADSYS Document Id: [id number] documented in this encounter Miscellaneous Notes Miscellaneous - Ehsan Garces M.D., M.P.H. - 06/19/2016 2:35 PM CST Ambulatory Patient Summary [address] [id number] Visit Information Name: ELVIS DAWKINS [facility] Number: [id number] Current Date: 06/19/2016 14:35:11 Physicians Attending Provider: EHSAN GARCES MD MPH Primary Care Provider: RONALD MOLINA MD LEVIS [...] (at bedtime) For high cholesterol. busPIRone (BuSpar 5 mg oral tablet) 1 Tablet(s), Oral, three times a day For anxiety FLUoxetine (FLUoxetine 20 mg oral tablet) 2 Tablet(s), Oral, once a day (in the morning) For anxietyand depression. fluticasone nasal (fluticasone 50 mcg/inh nasal spray) 2 Arnold(s), Nostrils(Both), once a day glimepiride (Amaryl 4 mg oral tablet) 1 Tablet(s), Oral, once a day (in the morning) with the first meal of the day STOP Metformin. ipratropium nasal (Atrovent 21 mcg/inh nasal spray) 2 Arnold(s), Nostrils(Both), three times a day asneeded for [...] Oral, two times a day For stomach. Stop Taking the Following Medications: Medication list as of 06-19-16 14:35 Attention: If you have any medications at [...] Signed By: EHSAN GARCES MD MPH Signed On:19-JUN-2016 14:35:05 Your Allergies & Intolerances Substance Reaction Symptoms [...] Spasm Bladder Active Diverticulosis Colon Active Callus [place] Foot Bilateral Active Your Upcoming Appointments Date Time Location Provider 06/23/2016 08:15 [facility] Urology Sabrina Valadez CNP 07/14/2016 08:30 [facility] Lab [facility] Lab 07/17/2016 09:15 [facility] InternMed Ronald Molina MD Attention: Contact [...] if you dont have one. Go to [email or web address] and click on Create Your Account. Then, follow the directions to complete the online form. Youll be asked for your [facility] number which you can find at the top of this document. Your Goals/Additional instructions: Source: [facility] POWERCHART Document Id: [id number] OR MANAGER ASSET PROTECTION Miscellaneous - Ehsan Garces M.D., M.P.H. - 06/19/2016 2:35 PM CST Ambulatory Discharge Medication List [address] [id number] Visit Information Name: ELVIS DAWKINS [facility] Number: [id number] Current Date: 06/19/2016 14:35:10 Attending Provider: EHSAN GARCES MD MPH Primary Care Provider: RONALD MOLINA MD ELVIS DAWKINS has been given the following list [...] (at bedtime) For high cholesterol. busPIRone (BuSpar 5 mg oral tablet) 1 Tablet(s), Oral, three times a day For anxiety FLUoxetine (FLUoxetine 20 mg oral tablet) 2 Tablet(s), Oral, once a day (in the morning) For anxietyand depression. fluticasone nasal (fluticasone 50 mcg/inh nasal spray) 2 Arnold(s), Nostrils(Both), once a day glimepiride (Amaryl 4 mg oral tablet) 1 Tablet(s), Oral, once a day (in the morning) with the first meal of the day STOP Metformin. ipratropium nasal (Atrovent 21 mcg/inh nasal spray) 2 Arnold(s), Nostrils(Both), three times a day asneeded for [...] Oral, two times a day For stomach. Stop Taking the Following Medications: Medication list as of 06-19-16 14:35 Attention: If you have any medications at [...] Signed By: EHSAN GARCES MD MPH Signed On:19-JUN-2016 14:35:05 Additional Information: Source: [employer] Document Id: [id number] OR MANAGER ASSET PROTECTION Miscellaneous - Chandra Meek L.P.N. - 06/19/2016 10:36 AM CST [place] Sleepiness Scale [place] Sleepiness Scale Entered On: 06/19/2016 10:37 SENIOR MANAGER ASSET PROTECTION Performed On: 06/19/2016 10:36 SENIOR MANAGER ASSET PROTECTION by CHANDRA MEEK LPN [place] Sleepiness Scale [place] sitting and reading : No chance of dozing [place] watching TV : No chance of dozing [place] sitting in public : No chance of dozing [place] passenger in car : Slight chance of dozing [place] in a car stopped in traffic : No chance of dozing [place] Lying down to rest : High chance of dozing [place] sitting and talking : No chance of dozing [place] sitting quietly after lunch : Slight chance of dozing [place] Total Score : 5 CHANDRA MEEK LPN - 06/19/2016 10:36 SENIOR MANAGER ASSET PROTECTION Source: [employer] Document Id: [id number] SENIOR MANAGER ASSET PROTECTION!11 OR MANAGER ASSET PROTECTION Miscellaneous - Ehsan Garces M.D., M.P.H. - 06/19/2016 9:51 AM CST Weight Shifter Instructions Weight Shifter Instructions Entered On: 06/19/2016 9:52 SENIOR MANAGER ASSET PROTECTION Performed On: 06/19/2016 9:51 SENIOR MANAGER ASSET PROTECTION by EHSAN GARCES MD MPH Weight Shifter Instructions Special Needs : Hospital bed General Instructions : Baseline PSG only Monitors Requested : Save Video, Routine Montage + T3 - T4, Arm EMG, Full EEG Oxygen Order : Start baseline/titration without oxygen Maximum Oxygen Flow Rate : 3 L/min EHSAN GARCES MD MPH - 06/19/2016 9:51 SENIOR MANAGER ASSET PROTECTION [facility] Document Id: [id number] SENIOR MANAGER ASSET PROTECTION!7 OR MANAGER ASSET PROTECTION Miscellaneous - Chandra Meek, L.P.N. - 06/19/2016 9:21 AM CST Adult Customer Sales Service Manager Intake/History Adult Customer Sales Service Manager Intake/History Entered On: 06/19/2016 9:25 SENIOR MANAGER ASSET PROTECTION Performed On: 06/19/2016 9:21 SENIOR MANAGER ASSET PROTECTION by CHANDRA MEEK LPN Intake Chief Complaint : Referral Sleep apnea Peripheral Pulse Rate : 68 /min Respiratory Rate : 20 /min Systolic Blood Pressure : 120 mmHg Diastolic Blood Pressure : 78 mmHg NIBP Mean : 92 mmHg BP Location : Left upper extremity Blood Pressure Cuff Size : Regular Height : 172 cm(Converted to: 5 ft 8 inch(es), 68 inch(es)) Actual Weight : 99.3 kg(Converted to: 218 lb 15 oz) Weight Source : Standing scale Dosing Weight Clinic : 99.3 kg Clinic BSA : 2.18 Body Mass Index : 33.57 kg/m2 CHANDRA MEEK LPN - 06/19/2016 9:21 SENIOR MANAGER ASSET PROTECTION General Info Information Given By : Patient Languages : Slovak Is Patient Female and 13-50 no hysterectomy : No CHANDRA MEEK LPN - 06/19/2016 9:21 SENIOR MANAGER ASSET PROTECTION Subjective Pain Symptoms : No CHANDRA MEEK LPN - 06/19/2016 9:21 SENIOR MANAGER ASSET PROTECTION Dependent Habits Exposure to Tobacco Smoke : Other: Never Smoking Status : Never smoker Tobacco 2A : No Tobacco Use/Currently Using : No Tobacco Use/Last 30 Days : No Tobacco Use/Last 12 months : No CHANDRA MEEK LPN - 06/19/2016 9:21 SENIOR MANAGER ASSET PROTECTION Source: [facility] [employer] Document Id: [id number] SENIOR MANAGER ASSET PROTECTION!29 OR MANAGER ASSET PROTECTION documented in this encounter Plan of Treatment Upcoming Encounters Date Type Specialty Care Team Description 04/23/2022 Office Visit Cardiovascular Disease Blas Peck M.D. [address] [place] [phone] (Wo rk) documented as of this encounter Visit Diagnoses Not on filedocumented in this encounter
--- OUTSIDE RECORDS SUMMARY | 2022-02-17 12:26 | XMS_ITS | Encounter Summary ---
:1950 Author Organization [facility] Address [address] [place] [address] Care Team Providers Name Role Phone Franco Molina M.D. Primary Care Provider Encounter Details Date Type Department Care Team Description 12/09/2016 Hospital Encounter HX [facility] INTERNMED Mery Holder V., TRACTOR SWEEPER OPERATOR, C.N.P. [address] [place] [phone] (Wo rk) Social History Tobacco Use Types [...] Sign Reading Time Taken Comments Blood Pressure 115/67 12/09/2016 9:36 AM CDT Pulse 74 12/09/2016 9:36 AM CDT Temperature - - Respiratory Rate 20 12/09/2016 9:36 AM CDT Oxygen Saturation - - Inhaled Oxygen Concentration - - Weight 103 kg (227 lb 13.5 oz) 12/09/2016 9:36 AM CDT Height 172 cm (5' 7.72) 12/09/2016 9:36 AM CDT Body Mass Index 34.93 12/09/2016 9:36 AM CDT documented in this encounter Medications [...] mg mouth at bedtime. tablet blood-glucose meter [facility] [place]pense glucose 0 05/2308/11/2018 [...] documented as of this encounter Progress Notes Chi Holder APRN, C.N.P. - 12/09/2016 9:08 AM CDT [id number] HISTORY OF PRESENT ILLNESS Elvis is a 66-year-old male who lives alone in [place]. He has a history of panic disorder and states he is unable to think or make decisions for himself. He has benign prostatic hypertrophy and is having problems with his urine. He is also diabetic and his diabetes is not under good control. He is a patient of Dr. Molina'tone and I did suggest he make an appointment with Dr. Molina to follow up for his diabetes. He has seen several providers including myself and Moises and we talked about, given his anxiety and confusion, it would be better if he stuck with his primary provider as far as appointments. He has seen Dr. Michelle in the past for Urology and would like to go back to Dr. Michelle. He states that Dr. Michelle gave him some blue or green colored pills that helped him tremendously. His next complaint is left knee pain. [place] and nowhe has left knee pain which has become worse. He states at night. The pain wakes him up and it is onthe medial aspect of the patella. He denies any headaches, fevers, chills, night sweats. He denies any cardiac complaints including chest pain, palpitations, or angina. He denies any respiratory complaints including orthopnea, dyspnea,PND. MEDICATIONS 1. Metformin 1000 mg daily with his evening meal. 2. MiraLAX 17 g in 8 ounces of liquid daily for constipation. 3. Fluoxetine 40 mg daily for anxiety and depression. 4. Ranitidine 150 mg daily for GERD 5. Amaryl 4 mg for diabetes mellitus type 2. 6. Atorvastatin 20 mg at bedtime for hyperlipidemia. 7. BuSpar 10 mg 3 times a day for anxiety and depression. 8. Tamsulosin 0.4 mg daily for BPH. 9. Metoprolol tartrate 25 mg 2 times a day for essential hypertension. 10. Metamucil for constipation. 11. Atrovent inhaler 20 mcg 2 sprays for nasal congestion. 12. Lisinopril 2.5 mg daily for essential hypertension and renal protection for diabetes mellitus type 2. 13. Fluticasone 50 mcg spray 2 sprays both nostrils for allergies. 14. Aspirin 81 mg daily for cardio protection. ALLERGIES Bactrim. PAST MEDICAL/SURGICAL HISTORY 1. Panic disorder. 2. Bladder spasms with BPH. 3. Urinary retention. 4. History of colon polyp. 5. Bilateral arthritis, hip. 6. Acute on chronic left knee pain. 7. Irritable bowel syndrome. 8. Essential hypertension. 9. Mixed hyperlipidemia. 10. Diabetes mellitus type 2 with neuropathy. 11. History of bypass of CABG 05/28/2014. 12. Sleep apnea. VITAL SIGNS Temperature 36.9, pulse 74, respirations 20, blood pressure 115/67, weight is 103.35, height is 172 cm. PHYSICAL EXAMINATION GENERAL: He is well groomed, in no acute distress. SKIN: No lesions noted or reported. HEENT: Head: Normocephalic. No lesions noted. Eyes: Conjunctiva clear. Lids symmetric. Ears: Hears conversational tones bilaterally. Nose: No drainage noted. Mouth: Buccal mucosa moist. No JVD, lymphadenopathy, thyromegaly. CARDIAC: S1, S2. Regular rate and rhythm. No murmurs, gallops or rubs. LUNGS: Clear bilaterally with no adventitious breath sounds. ABDOMEN: Soft, nontender. Positive bowel sounds 4 quadrants. EXTREMITIES: No clubbing, cyanosis or edema noted. Left knee, no tenderness or effusion noted. Gait is altered related to knee pain and he is using a walking stick. IMPRESSION/REPORT/PLAN 1. Left knee pain. He will be sent for an x-ray today and orthopedic consult. 2. Benign prostatic hypertrophy. He will be seen by Dr. Michelle at [facility] on December 25 at 8 a.m. 3. Diabetes mellitus type 2. He will make an appointment to see Dr. Molina for management of all his multiple comorbidities. Chi Holder CNP/shaylee Electronically Signed By: CHI HOLDER APRN, CNP On: 12/10/2016 08:21 AM Source: [facility] MHSDOLBEYNONRADSYS Document Id: [id number] documented in this encounter Miscellaneous Notes Miscellaneous - Chi Holder APRN CMichelleN.P. - 12/09/2016 11:14 AM CDT Results Notification From: CHI HOLDER APRN MOLDING AND TRIM INSTALLER Sent: 12/09/2016 11:14:43 CDT Show up: 12/09/2016 11:14:00 CDT Subject: Results Notification Please let him know that his knee xray showed fluid on he knee and he should keep his orthopedic appointment. Results: Date Result Type Result Name 12/09/2016 11:09 Radiology XR Knee Left 3 views Source: [facility] POWERCHART Document Id: [id number] Miscellaneous - Margo Grant L.P.NMichelle - 12/09/2016 9:36 AM CDT Adult Shelter Advocate Intake/History Adult Shelter Advocate Intake/History Entered On: 12/09/2016 9:43 CDT Performed On: 12/09/2016 9:36 CDT by MARGO GRANT LPN Intake Chief Complaint : Prostate issues, declined NL Also having pain in left knee. Temperature Core : 36.9 DegC(Converted to: 98.4 DegF) Peripheral Pulse Rate : 74 /min Respiratory Rate : 20 /min Systolic Blood Pressure : 115 mmHg Diastolic Blood Pressure : 67 mmHg NIBP Mean : 83 mmHg BP Location : Left upper extremity Blood Pressure Cuff Size : Regular Height : 172 cm(Converted to: 5 ft 8 inch(es), 68 inch(es)) Actual Weight : 103.35 kg(Converted to: 227 lb 14 oz) Weight Source : Standing scale Dosing Weight Clinic : 103.35 kg Clinic BSA : 2.22 Body Mass Index : 34.93 kg/m2 MARGO GRANT LPN - 12/09/2016 9:36 CDT General Info Information Given By : Patient Preferred Communication Mode : Verbal Languages : Malawian Is Patient Female and 13-50 no hysterectomy : No MARGO GRANT ELLEN - 12/09/2016 9:36 CDT Subjective Pain Symptoms : Yes MARGO GRANT ELLEN - 12/09/2016 9:36 CDT Pain Scale Pain Scale Verbal 0-10 : Open MARGO GRANT Raj HUGHES - 12/09/2016 9:36 CDT Pain Pain Assessment Grid Pain 1 Pain 2 Location : Bladder Knee Laterality : Left Quality : Aching, Burning (Comment: Burning on the inside area of knee [MARGO GRANT Raj HUGHES - 12/09/2016 9:36 CDT] ) MARGO GRANT Raj HUGHES - 12/09/2016 9:36 CDT MARGO GRANT ELLEN - 12/09/2016 9:36 CDT Dependent Habits Exposure to Tobacco Smoke : Other: Never Smoking Status : Never smoker Tobacco 2A : No Tobacco Use/Currently Using : No Tobacco Use/Last 30 Days : No Tobacco Use/Last 12 months : No MARGO GRANT ELLEN - 12/09/2016 9:36 CDT Source: [employer] Document Id: [id number]!41 documented in this encounter Plan of Treatment Upcoming Encounters Date Type Specialty Care Team Description 04/23/2022 Office Visit Cardiovascular Disease Blas Peck M.D. [address] [place] [phone] (Wo rk) documented as of this encounter Procedures Procedure Name Priority Date/Time Associated Diagnosis Comme nts DX KNEE LEFT 3 Routine 12/09/2016 10:25 AM Result s for this VIEWS CDT procedure are i n the results section. documented in this encounter Results DX Knee Left 3 Views (12/09/2016 10:25 AM CDT) Anatomical Region Laterality Modality Lower Extremity, Knee Left Radiographic Imagi ng Specimen (Source) Anatomical Collection Method Collection Time Re ceived Time Location / / Volume Laterality 12/09/2016 10:25 AM CDT Addenda Addendum by Provider, Denise Montes o n 12/09/2016 10:25 AM CDT RAD^^^OW XR Knee Left 3 views 12/09/2016 10:25:31 XR Knee Left 3 views Addendum by Provider, Denise Montes o n 12/09/2016 10:25 AM CDT RAD^^^OW XR Knee Left 3 views 12/09/2016 10:25:31 XR Knee Left 3 views Impressions 12/09/2016 11:06 AM CDT 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 Mild chondrocalcinosis of the bilateral lateral knee joint compartments. Mild/moderate bilateral genu varus, more pronounced on the right. Large left knee joint effusion/synovitis . Scattered arterial calcifications. Surgical clips projected along the media l aspects of the proximal aspect of the bilateral lower legs. Narrative 12/09/2016 11:06 AM CDT EXAM: ??XR Knee Left 3 views. DEMOGRAPHICS: ??66 years Male. INDICATION: ??kne pain, instability. COMPARISON: ??None FINDINGS/ Procedure Note Andrew Wilson M.D. / Provider, Arvind hutchins M.D. - 01/15/2017 EXAM: XR Knee Left 3 views. DEMOGRAPHICS: 66 years Male. INDICATION: kne pain, instability. COMPARISON: None FINDINGS/IMPRESSION: Moderate/severe deg enerative changes of the bilateral knees more pronounced within t he bilateral medial compartments (worse on the right). Mild chondrocalcinosis of the bilateral lateral knee joint compartments. Mild/moderate bilateral genu varus, more pronounced on the right. Large left knee joint effusion/synovitis . Scattered arterial calcifications. Surgical clips projected along the media l aspects of the proximal aspect of the bilateral lower legs. Vilma Laurent(R), RMichelleTMichelle(R)(M) IMG DIAGNOSTIC IM AGING PROCEDURES documented in this encounter Visit Diagnoses Not on filedocumented in this encounter Care Teams Claim Analyst Relationship Specialty Start Date End Date Franco Molina M.D. PCP - General 09/25/16 07/27/19 documented as of this encounter
--- OUTSIDE RECORDS SUMMARY | 2022-02-17 12:26 | XMS_ITS | Encounter Summary ---
:1950 Author Organization [facility] Address [address] [place] [address] Care Team Providers Name Role Phone Unavailable Primary Care Provider Unavailable Encounter Details Date Type Department Care Team Description 07/17/2016 Hospital Encounter HX [facility] Ronald Leong M.D. [address] [phone] Social History Tobacco Use Types Packs/Day [...] Sign Reading Time Taken Comments Blood Pressure 126/63 07/17/2016 9:14 AM CDT Pulse 62 07/17/2016 9:14 AM CDT Temperature - - Respiratory Rate 16 07/17/2016 9:14 AM CDT Oxygen Saturation - - Inhaled Oxygen Concentration - - Weight 103 kg (227 lb 2.9 oz) 07/17/2016 9:14 AM CDT Height 172 cm (5' 7.72) 07/17/2016 9:14 AM CDT Body Mass Index 34.83 07/17/2016 9:14 AM CDT documented in this encounter Medications at Time of Discharge Medication Sig Dispensed Refills Start Date End Date PSYLLIUM HUSK (METAMUCIL Take 1.7 g by mouth 0 ORAL) at bedtime. aspirin 81 mg chewable Chew 1 tablet daily. 0 07/09/2020 tablet atorvastatin Take 1 tablet by 0 07/17/20162017 (for_LIPITOR) 20 mg mouth at bedtime. tablet blood-glucose meter [facility] Dispense glucose 0 05/2308/11/2018 meter, test strips [...] encounter Progress Notes Ronald Molina M.D. - 07/17/2016 9:07 AM CDT [id number] CHIEF COMPLAINT/REASON FOR VISIT 1. Followup on chronic medical problems. 2. Discuss test results. HISTORY OF PRESENT ILLNESS Elian is a 66-year-old male who presents to the clinic today for a two month followup from 05/16/2016. He had neurology consultation with Dr. Ehsan Garces on 06/19/2016 for sleep apnea. A split-night sleep study was ordered. He has not set up this up yet. Patient saw Sabrina Valadez RN in urology on 06/23/2016 for prostatitis and history of BPH. He was advised to take Flomax daily and followup in 2 weeks. He followed with Moises Padilla PA-C on 07/02/2016 for his prostatitis. UA was negative. He was given Ciprofloxacin 500 mg twice a day for 10 days. He is doing fine. He feels that taking Cipro did not help his symptoms. He felt better after taking two tablets of Flomax. He has followup with urology next week. He denies any dysuria or hematuria. Itfeels like a tear in his left groin. He has occasional chills, no fever. Additionally, he has discomfort in his rectum area when he has bowel movements. He is taking Metamucil. We discussed test results from 07/14/2016. Results were remarkable for fasting glucose 152, cholesterol 131, triglycerides 76, HDL 55, LDL 61, CK 304, hemoglobin A1c 6.8, and TSH 1.72. His diabetes mellitus type 2 is controlled with medication. He checks his blood sugar occasionally, maybe averaging around 156. He mentioned that he has occasional eye blurriness. Per the patient, he saw Dr. Emili Sharma, Orderlies Teacher at [facility] on 05/29/2016. At his last visit, we added BuSpar 5 mg three times a day for anxiety. He noticed an improvement after taking medication but did not refill the medication. He is also on Fluoxetine. We again discussed about seeing a psychiatrist. He never made an appointment because he was too busy. I reviewed and updated his medication list. [...] and updated as per the EHR on 07/17/2016. PREVENTIVE SERVICES Reviewed and updated as per the EHR on 07/17/2016. SOCIAL HISTORY Reviewed and updated as per the EHR on 07/17/2016. FAMILY HISTORY Reviewed and updated as per the EHR on 07/17/2016. VITAL SIGNS HEIGHT: 172 cm. WEIGHT: 103.05 kg. BMI: 34.83 kg/m2. PULSE: 62 /min. RESP: 16 /min. SYSTOLIC: 126 mmHg. DIASTOLIC: 63 mmHg. PHYSICAL EXAMINATION GENERAL: Patient is sitting. No distress. Able to talk without interruption. MENTAL: Alert and oriented x 3. Normal mood and affect. IMPRESSION/REPORT/PLAN 1. Acute prostatitis with BPH. He noticed no improvement after taking Cipro therapy. He was advised to try urinating on a regular basis. We discussed possible etiologies of his symptoms. It could be interstitial cystitis or urinary bladder outlet obstruction. He noticed improvement in symptoms after ta maxwell two tablets of Flomax. He should discuss with Dr. Mdcermott on 07/24/2016. 2. Possible obstructive sleep apnea. He should have sleep study as recommended by Dr. Garces. I sent a message to Dr. Najera office regarding sleep study date. 3. Diabetes mellitus type 2 with neuropathy. It is controlled. Hemoglobin A1c was 6.8% on 07/14/2016. He was advised to continue current [place] [employer] diet, regular exercise, and current medication. Need to monitor blood sugar daily. We need to get eye exam records from [facility]. Self- management goals of diabetes mellitus were reviewed. Need to check hemoglobin A1c again in 3months. 4. Hyperlipidemia. It is controlled. Fasting lipid profile was done on 07/14/2016. Total [id number], triglycerides 76, HDL 55, LDL 61. There are no side effects from Atorvastatin. Patient was advised to continue low cholesterol, low fat diet, regular exercise, and current medication. Need to check fasting lipid profile again in 1 year. 5. Anxiety with panic disorder without agoraphobia. He noticed improvement after taking BuSpar. He would like to increase medication. There were no side effects. Prescription was refilled for BuSpar 10mg three times a day. He will continue Fluoxetine. He should contact me if there is no improvement or worsening of symptoms or develops side effects to increased dose of prescription medication. I recommend that he sees a psychiatrist for management of anxiety, depression, and panic attacks. 6. Benign essential hypertension. Blood pressure is controlled. He is stable from a cardiac standpoint. Need to continue sodium controlled diet and current medication. Monitor blood pressure regularly at home. Blood pressure goal is less than 140/90 mmHg. Need to continue cardiovascular risk factors mo dification. 7. Discussed test results. I reviewed test results from 07/14/2016. All questions were answered. 8. Renew medications. The following medications were renewed: Atorvastatin, BuSpar, Amaryl, and Ranitidine. The patient will return to the clinic in 3 months for followup with following tests prior to appointment: ALT, AST, BMP, CK, HCV, and Hemoglobin A1c. This document serves as a record of services personally performed by Dr. Ronald Molina. It was created on their behalf by Balaji Larios, a trained medical psychotherapist. The creation of this record is based on the scribe's personal observations and the provider's statements to them. This document has been checked and approved by the attending provider. Ronald Molina M.D./melissa Electronically Signed By: RONALD MOLINA MD On: 07/17/2016 12:07 PM Modified by and Electronically Signed by: RONALD MOLINA MD On: 07/17/2016 12:07 PM Source: [facility] MHSDOLBEYNONRADSYS Document Id: [id number] documented in this encounter Miscellaneous Notes Miscellaneous - Ehsan Garces M.D., M.P.H. - 07/18/2016 11:31 AM CDT [employer] Sewer Instructions [employer] Sewer Instructions Entered On: 07/18/2016 11:32 CDT Performed On: 07/18/2016 11:31 CDT by EHSAN GARCES MD MPH [employer]er Instructions Special Needs : Hospital bed General Instructions : Split Night CPAP at AHI > 5/Hr Monitors Requested : Save Video, Routine Montage, Arm EMG Oxygen Order : Start baseline/titration without oxygen Maximum Oxygen Flow Rate : 5 L/min EHSAN GARCES MD MPH - 07/18/2016 11:31 CDT Source: [facility] POWERCHART Document Id: [id number] CDT!7 Miscellaneous - Ronald Molina M.D. - 07/17/2016 9:55 AM CDT Sleep study date Document Contains Addenda Addendum by CHANDRA BUI LPN on July 24, 2016 11:54:32 CDT Spoke with: ( x ) Patient ( _ ) Parent ( _ ) Spouse ( _ ) Child ( ) Other: _ Call back telephone number: _ Reason for Call: -Contacted patient. Phone number given to contact cotton acreage measurer to schedule sleep studytest. Chief Complaint: _ Patient/Caller response to Education/Information given: ( _ ) Verbalizes understanding of instructions ( _ ) Provide intervention per provider instruction ( _ ) Reinforce information already given ( _ ) Reinforce Plan of Care ( _ ) Provide preprinted information by mail (if applicable) Source/Reference used (if applicable): _ OK to leave message on voice mail? _ OK to send message via patient portal? _ Patient told to expect return call: ( _ ) today ( _ ) tomorrow ( _ ) next work day Callers preferred language for Healthcare discussion: _ Was an high speed printer operator used for this call? _ Other ( --_ ) Addendum by CHANDRA BUI LPN on July 18, 2016 14:44:17 CDT Attempted to contact patient. Message left to return my call. Addendum by RONALD MOLINA MD on July 17, 2016 10:42:45 CDT From: RONALD MOLINA MD To: CHANDRA BIU LPN; Sent: 07/17/2016 10:42:45 CDT Subject: RE: Sleep study date Noted. Thank you. Addendum by CHANDRA BUI LPN on July 17, 2016 10:26:24 CDT From: CHANDRA BUI LPN To: RONALD MOLINA MD; CHANDRA BUI LPN; Sent: 07/17/2016 10:26:24 CDT Subject: RE: Sleep study date Addendum by CHANDRA BUI LPN on July 17, 2016 10:26:05 CDT Patient was left a message in regards to scheduling sleep study per Marion Max. Attempted to contact patient at this time. Message left to return my call. From: RONALD MOLINA MD To: CHANDRA BUI LPN; Cc: EHSAN GARCES MD MPH; Sent: 07/17/2016 09:55:07 CDT Subject: Sleep study date Actions: Notify patient- refer to General Message, Notify patient of Future Order Christopherbabita, I saw him this morning. He asked me about test date for sleep study. I told him that I will check with you. Could you please check and call him with the test date? Thank you. Ronald Source: [facility] POWERCHART Document Id: [id number] Miscellaneous - Ronald Molina M.D. - 07/17/2016 9:43 AM CDT Need eye exam records from [facility] Document Contains Addenda Addendum by KIKE REEDER LPN on July 17, 2016 10:13:11 CDT Spoke with: ( _ ) Patient ( _ ) Parent ( _ ) Spouse ( _ ) Child ( x ) Other: Mandi [facility] Call back telephone number: [phone] Reason for Call: -Records Request Chief Complaint: Spoke with Mandi at [facility] and she will fax records. Last complete eyeexam was in 01/2016 _ Patient/Caller response to Education/Information given: ( [...] day Callers preferred language for Healthcare discussion: Gambian Was an high speed printer operator used for this call? No Other ( --x ) No further action needed at this time. From: RONALD MOLINA MD To: RENETTA Molina Nurse; Sent: 07/17/2016 09:43:50 CDT Subject: Need eye exam records from [facility] We need an eye exam records from [facility]. He saw an eye doctor on 05/29/2016. Source: [facility] POWERCHART Document Id: [id number] Electronically signed by Lukas [facility] Hospital[facility] Financial Investigator [id number] at 09/23/2016 6:44 AM CDT Miscellaneous - Ronald Molina M.D. - 07/17/2016 9:42 AM CDT Ambulatory Patient Summary [address] [id number] Visit Information Name: ELIAN DAWKINS [facility] Number: [id number] Current Date: 07/17/2016 09:42:19 Physicians Attending Provider: RONALD MOLINA MD Primary Care Provider: RONALD MOLINA MD ELIAN DAWKINST has been given the following list [...] a day (at bedtime) For high cholesterol. This is a CHANGE Routed to [address] [address] busPIRone (BuSpar 10 mg oral tablet) 1 Tablet(s), Oral, three times a day Dose increased on 07/17/2016. This is a CHANGE Routed to [address] [address] FLUoxetine (FLUoxetine 20 mg oral tablet) 2 Tablet(s), Oral, once a day (in the morning) For anxietyand depression. fluticasone nasal (fluticasone 50 mcg/inh nasal spray) 2 Intervale(s), Nostrils(Both), once a day glimepiride (Amaryl 4 mg oral tablet) 1 Tablet(s), Oral, once a day (in the morning) with the first meal of the day STOP Metformin. Routed to [address] [address] ipratropium nasal (Atrovent 21 mcg/inh nasal spray) 2 Intervale(s), Nostrils(Both), three times a day asneeded for [...] Oral, two times a day For stomach. This is aCHANGE Routed to [address] [address] tamsulosin (tamsulosin 0.4 mg oral capsule) 1 cap, Oral, once a day Stop Taking the Following Medications: Medication list as of 07-17-16 09:42 Attention: If you have any medications at [...] Electronically Signed By: RONALD MOLINA MD Signed On:17-JUL-2016 09:42:14 Your Allergies & Intolerances Substance Reaction Symptoms [...] Spasm Bladder Active Diverticulosis Colon Active Callus [place] Foot Bilateral Active Your Upcoming Appointments Date Time Location Provider 07/24/2016 14:00 [facility]rology Baldemar ALEX, Beto Attention: Contact your local Clinic if further [...] if you dont have one. Go to [email or web address] and click on Create Your Account. Then, follow the directions to complete the online form. Youll be asked for your [facility] number which you can find at the top of this document. Your Goals/Additional instructions: Source: [facility] POWERCHART Document Id: [id number] Miscellaneous - Ronald Molina M.D. - 07/17/2016 9:42 AM CDT Ambulatory Discharge Medication List [address] [id number] Visit Information Name: ELIAN DAWKINS [facility] Number: [id number] Current Date: 07/17/2016 09:42:18 Attending Provider: RONALD MOLINA MD Primary Care [...] a day (at bedtime) For high cholesterol. This is a CHANGE Routed to [address] [address] busPIRone (BuSpar 10 mg oral tablet) 1 Tablet(s), Oral, three times a day Dose increased on 07/17/2016. This is a CHANGE Routed to [address] [address] FLUoxetine (FLUoxetine 20 mg oral tablet) 2 Tablet(s), Oral, once a day (in the morning) For anxietyand depression. fluticasone nasal (fluticasone 50 mcg/inh nasal spray) 2 Intervale(s), Nostrils(Both), once a day glimepiride (Amaryl 4 mg oral tablet) 1 Tablet(s), Oral, once a day (in the morning) with the first meal of the day STOP Metformin. Routed to [address] [address] ipratropium nasal (Atrovent 21 mcg/inh nasal spray) 2 Intervale(s), Nostrils(Both), three times a day asneeded for [...] Oral, two times a day For stomach. [place] [address] tamsulosin (tamsulosin 0.4 mg oral capsule) 1 cap, Oral, once a day Stop Taking the Following Medications: Medication list as of 07-17-16 09:42 Attention: If you have any medications at [...] Electronically Signed By: RONALD MOLINA MD Signed On:17-JUL-2016 09:42:14 Additional Information: Source: [facility] POWERCHART Document Id: [id number] Miscellaneous - Kike Reeder, LMichellePMichelleN. - 07/17/2016 9:14 AM CDT Adult Nut Tightener Intake/History Adult Nut Tightener Intake/History Entered On: 07/17/2016 9:17 CDT Performed On: 07/17/2016 9:14 CDT by KIKE REEDER LPN Intake Chief Complaint : 1. Two month follow-up from 05/16/2016 Peripheral Pulse Rate : 62 /min Respiratory Rate : 16 /min Systolic Blood Pressure : 126 mmHg Diastolic Blood Pressure : 63 mmHg NIBP Mean : 84 mmHg BP Location : Left upper extremity Blood Pressure Cuff Size : Large Height : 172 cm(Converted to: 5 ft 8 inch(es), 68 inch(es)) Actual Weight : 103.05 kg(Converted to: 227 lb 3 oz) Weight Source : Standing scale Dosing Weight Clinic : 103.05 kg Clinic BSA : 2.22 Body Mass Index : 34.83 kg/m2 KIKE REEDER LPN - 07/17/2016 9:14 CDT General Info Information Given By : Patient Preferred Communication Mode : Verbal, Written Languages : [place]ian Is Patient Female and 13-50 no hysterectomy : KIKE Garcia LPN - 07/17/2016 9:14 CDT Subjective Pain Symptoms : KIKE Garcia LPN - 07/17/2016 9:14 CDT Dependent Habits Exposure to Tobacco Smoke : Other: Never Smoking Status : Never smoker Tobacco 2A : No Tobacco Use/Currently Using : No Tobacco Use/Last 30 Days : No Tobacco Use/Last 12 months : KIKE Garcia LPN - 07/17/2016 9:14 CDT Source: Over 40 Females Document Id: [id number] CDT!30 documented in this encounter Plan of Treatment Upcoming Encounters Date Type Specialty Care Team Description 04/23/2022 Office Visit Cardiovascular Disease Blas Peck M.D. [address] [place] [phone] (Wo rk) documented as of this encounter Visit Diagnoses Not on filedocumented in this encounter
--- OUTSIDE RECORDS SUMMARY | 2022-02-17 12:27 | XMS_ITS | Encounter Summary ---
:1950 Author Organization [facility] Address [address] [place] [address] Care Team Providers Name Role Phone Unavailable Primary Care Provider Unavailable Encounter Details Date Type Department Care Team Description 04/21/2016 Hospital Encounter HX [facility] Franco Molina M.D. [address] [facility] [address] [phone] Social History Tobacco Use Types Packs/Day [...] - - Height 172 cm (5' 7.72) 04/21/2016 9:29 AM FURNACE ROASTER Body Mass Index - - documented in this encounter Medications at Time of Discharge Medication Sig Dispensed Refills Start Date End Date aspirin 81 mg chewable Chew 1 tablet [...] 04/10/2016 (for_PRINIVIL,ZESTRIL) every morning. 2.5 mg tablet documented as of this encounter Plan of Treatment Upcoming Encounters Date Type Specialty Care Team Description 04/23/2022 Office Visit Cardiovascular Disease Blas Peck M.D. [facility] [place] [phone] (Wo rk) documented as of this encounter Procedures Procedure Name Priority Date/Time Associated Diagnosis Comme nts BASIC METABOLIC Routine 04/21/2016 9:41 AM Result s for this PANEL, S/P FURNACE ROASTER procedure are i n the results section. documented in this encounter Results (ABNORMAL) BMP (Basic Metabolic Panel) (04/21/2016 9:41 AM FURNACE ROASTER) P athologist Signature Sodium, S 135 135 - 145 POWERCHART MMOLL Potassium, S 4.6 3.6 - 5.2 POWERCHART MMOLL Chloride, S 95 (L) 98 - 107 POWERCHART MMOLL CO2 Total 24 22 - 29 POWERCHART MMOLL BUN (Blood Urea 12 8 - 24 POWERCHART Nitrogen), S MGDL Creatinine 0.89 0.80 - POWERCHART 1.30 MGDL Calcium, Total, 9.9 8.8 - 10.3 POWERCHART S MGDL Anion Gap 16 (H) 7 - 15 POWERCHART MMOLL HXeGFR (MDRD) >60 >=60 POWERCHART [id number] eGFR >60 >=60 POWERCHART Black/ [id number] [place] Glucose 185 (H) 70 - 139 POWERCHART MGDL Specimen (Source) Anatomical Collection Method Collection Time Re ceived Time Location / / Volume Laterality Blood 04/21/2016 9:41 AM FURNACE ROASTER Franco Molina M.D. LAB BLOOD ADD-ON Performing Organization Address City/State/ZIP Code Phon e Number POWERCHART documented in this encounter Visit Diagnoses Not on filedocumented in this encounter
--- OUTSIDE RECORDS SUMMARY | 2022-02-17 12:27 | XMS_ITS | Encounter Summary ---
:1950 Author Organization [facility] Address [address] [place] [address] Care Team Providers Name Role Phone Unavailable Primary Care Provider Unavailable Encounter Details Date Type Department Care Team Description 03/26/2016 Hospital Encounter HX [facility] Efraín Buckley M.D. [address] [phone] (Wo rk) Social History Tobacco Use Types Packs/Day Years Used Date Smoking Tobacco: Never Assessed Alcohol Habits Answer Date Recorded How often [...] Sign Reading Time Taken Comments Blood Pressure 94/66 03/26/2016 2:24 PM SOCIAL WORK CASE MANAGER Pulse 71 03/26/2016 2:24 PM SOCIAL WORK CASE MANAGER Temperature - - Respiratory Rate - - Oxygen Saturation - - Inhaled Oxygen Concentration - - Weight - - Height 172 cm (5' 7.72) 03/26/2016 2:24 PM SOCIAL WORK CASE MANAGER Body Mass Index - - documented in [...] into each nostril mcg/actuation nasal daily. spray documented as of this encounter Progress Notes Adarsh Hamilton M.D. - 03/26/2016 2:00 PM CST [id number] HISTORY OF PRESENT ILLNESS Patient here for follow up CT scan and noted signs. CT scan was discussed and reviewed with patient.Sinuses are clear. Septum is deviated to left side of the midportion. Hypertrophy of bilateral inferior turbinates. Hypertrophy right middle turbinate. IMPRESSION/REPORT/PLAN 1. Nasal septal deformity. 2. Turbinate hypertrophy. 3. Chronic rhinitis. 4. Postnasal drainage. 5. Nasal obstruction. PLAN: Discussed plan with patient. We reviewed scan anatomy and lack of sinus disease. Discussed septal deformity and turbinate hypertrophy. Discussed surgical options of nasal septoplasty and turbinate reduction. Discussed surgery in detail with goals, risks and potential complications. He is not interested in surgical options at this time. He has more pressing hernia problems to take care of currently. Would recommend Flonase intranasal steroid spray. Prescription was given. We will see again in followup on an as-needed basis if he wishes to consider surgical options. Visit was 15 minutes, the entire time spent in counseling regarding review of scan and discussing diagnosis and treatment options. Adarsh Hamilton M.D./shaylee Electronically Signed By: ADARSH HAMILTON MD On: 04/03/2016 04:00 PM Source: [facility] [id number] Document Id: [id number] AL WORK CASE MANAGER documented in this encounter Miscellaneous Notes Miscellaneous - Adarsh Hamilton M.D. - 03/26/2016 2:43 PM CST Ambulatory Patient Summary [address] [id number] Visit Information Name: ELVIS DAWKINS [facility] Number: [id number] Current Date: 03/26/2016 14:43:29 Physicians Attending Provider: ADARSH HAMILTON MD Primary Care Provider: RONALD RUEDA MD ELVIS DAWKINS has been given the [...] a day (at bedtime) For high cholesterol. FLUoxetine (FLUoxetine 20 mg oral tablet) 2 Tablet(s), Oral, once a day (in the morning) For anxietyand depression. fluticasone nasal (fluticasone 50 mcg/inh nasal spray) 2 [place](s), Nostrils(Both), once a day in each nostril / For nasal congestion. fluticasone nasal (fluticasone 50 mcg/inh nasal spray) 2 [place](s), Nostrils(Both), [place] [address] ipratropium nasal (Atrovent 21 mcg/inh nasal spray) 2 [place](s), Nostrils(Both), three times a day asneeded for Nasal congestion in each nostril / For nasal congestion. *levoFLOXacin (Levaquin 500 mg oral tablet) 1 Tablet(s), Oral, once a day x 21 day(s) lisinopril (lisinopril 5 mg oral tablet) 1 Tablet(s), Oral, once a day For high blood pressure and kidney protection. metFORMIN (metFORMIN 850 mg oral tablet) 1 Tablet(s), Oral, two times a day with meals Dose increased on 02/14/2016. / For diabetes. metoprolol (metoprolol tartrate 25 mg oral tablet) 1 Tablet(s), Oral, two times a day For high bloodpressure. raNITIdine (raNITIdine 150 mg oral tablet) 1 Tablet(s), Oral, two times a day For stomach. tamsulosin (tamsulosin 0.4 mg oral capsule) 2 cap, Oral, once a day For prostate. tolterodine (tolterodine 2 mg oral tablet) 1 Tablet(s), Oral, two times a day For urination. * You have let us know that you are not taking this medication as listed. Please talk with your primary care provider or the health care provider who prescribed the medication as soon as possible. Stop Taking the Following Medications: Medication list as of 03-26-16 14:43 Attention: If you have any medications at home that are not on this list, DO NOT take them until youcontact your provider for clarification. Give a copy of your medication list to your primary care provider. Update your medication list any time medications or doses are changed and carry your medication list at all times in case of emergency. Electronically Signed By: ADARSH HAMILTON MD Signed On:26-MAR-2016 14:43:26 Your Allergies & Intolerances Substance Reaction Symptoms [...] Active 07/27/2015 Retention Urinary Chronic Possible Active Your Upcoming Appointments Date Time Location Provider 04/09/2016 10:00 [facility] 04/10/2016 13:30 [facility] Jesse ALEX, Phunt 04/21/2016 08:45 [facility] Urology Sabrina Valadez CNP Attention: Contact your local Clinic if further [...] if you dont have one. Go to [email or web address] and click on Create Your Account. Then, follow the directions to complete the online form. Youll be asked for your [facility] number which you can find at the top of this document. Your Goals/Additional instructions: Source: [facility] POWERCHART Document Id: [id number] AL WORK CASE MANAGER Miscellaneous - Adarsh Hamilton M.D. - 03/26/2016 2:43 PM CST Ambulatory Discharge Medication List [address] [id number] Visit Information Name: ELVIS DAWKINS [facility] Number: [id number] Current Date: 03/26/2016 14:43:28 Attending Provider: ADARSH HAMILTON MD Primary Care Provider: RONALD RUEDA MD ELVIS DAWKINS has been given the [...] a day (at bedtime) For high cholesterol. FLUoxetine (FLUoxetine 20 mg oral tablet) 2 Tablet(s), Oral, once a day (in the morning) For anxietyand depression. fluticasone nasal (fluticasone 50 mcg/inh nasal spray) 2 [place](s), Nostrils(Both), once a day in each nostril / For nasal congestion. fluticasone nasal (fluticasone 50 mcg/inh nasal spray) 2 [place](s), Nostrils(Both), once a day [facility] [address] [place] [address] ipratropium nasal (Atrovent 21 mcg/inh nasal spray) 2 [place](s), Nostrils(Both), three times a day asneeded for Nasal congestion in each nostril / For nasal congestion. *levoFLOXacin (Levaquin 500 mg oral tablet) 1 Tablet(s), Oral, once a day x 21 day(s) lisinopril (lisinopril 5 mg oral tablet) 1 Tablet(s), Oral, once a day For high blood pressure and kidney protection. metFORMIN (metFORMIN 850 mg oral tablet) 1 Tablet(s), Oral, two times a day with meals Dose increased on 02/14/2016. / For diabetes. metoprolol (metoprolol tartrate 25 mg oral tablet) 1 Tablet(s), Oral, two times a day For high bloodpressure. raNITIdine (raNITIdine 150 mg oral tablet) 1 Tablet(s), Oral, two times a day For stomach. tamsulosin (tamsulosin 0.4 mg oral capsule) 2 cap, Oral, once a day For prostate. tolterodine (tolterodine 2 mg oral tablet) 1 Tablet(s), Oral, two times a day For urination. * You have let us know that you are not taking this medication as listed. Please talk with your primary care provider or the health care provider who prescribed the medication as soon as possible. Stop Taking the Following Medications: Medication list as of 03-26-16 14:43 Attention: If you have any medications at home that are not on this list, DO NOT take them until youcontact your provider for clarification. Give a copy of your medication list to your primary care provider. Update your medication list any time medications or doses are changed and carry your medication list at all times in case of emergency. Electronically Signed By: ADARSH HAMILTON MD Signed On:26-MAR-2016 14:43:26 Additional Information: Source: [facility] POWERCHART Document Id: [id number] AL WORK CASE MANAGER Miscellaneous - Juani Magdaleno LMichelleP.N. - 03/26/2016 2:24 PM CST Adult Claim Inspector Intake/History Adult Claim Inspector Intake/History Entered On: 03/26/2016 14:26 SOCIAL WORK CASE MANAGER Performed On: 03/26/2016 14:24 SOCIAL WORK CASE MANAGER by JUANI MAGDALENO LPN Intake Temperature Core : 36.7 DegC(Converted to: 98.1 DegF) Peripheral Pulse Rate : 71 /min Systolic Blood Pressure : 94 mmHg Diastolic Blood Pressure : 66 mmHg NIBP Mean : 75 mmHg JUANI MAGDALENO LPN - 03/26/2016 14:27 SOCIAL WORK CASE MANAGER Chief Complaint : Review CT scan BP Location : Right upper extremity Blood Pressure Cuff Size : Large Height : 172 cm(Converted to: 5 ft 8 inch(es), 68 inch(es)) JUANI MAGDALENO LPN - 03/26/2016 14:24 SOCIAL WORK CASE MANAGER General Info Information Given By : Patient Preferred Communication Mode : Verbal Languages : Macedonian Is Patient Female and 13-50 no hysterectomy : No JUANI MAGDALENO LPN - 03/26/2016 14:24 SOCIAL WORK CASE MANAGER Subjective Pain Symptoms : Yes JUANI MAGDALENO LPN - 03/26/2016 14:24 SOCIAL WORK CASE MANAGER Dependent Habits Exposure to Tobacco Smoke : Other: Never Smoking Status : Never smoker Tobacco 2A : No Tobacco Use/Currently Using : No Tobacco Use/Last 30 Days : No Tobacco Use/Last 12 months : No JUANI MAGDALENO LPN - 03/26/2016 14:24 SOCIAL WORK CASE MANAGER Source: [facility] POWERCHART Document Id: [id number] SOCIAL WORK CASE MANAGER!25 AL WORK CASE MANAGER documented in this encounter Plan of Treatment Upcoming Encounters Date Type Specialty Care Team Description 04/23/2022 Office Visit Cardiovascular Disease Blas Peck M.D. [address] [place] [address] [phone] (Wo rk) documented as of this encounter Visit Diagnoses Not on filedocumented in this encounter
--- OUTSIDE RECORDS SUMMARY | 2022-02-17 12:27 | XMS_ITS | Encounter Summary ---
:1950 Author Organization [facility] Address [address] [place] [address] Care Team Providers Name Role Phone Unavailable Primary Care Provider Unavailable Encounter Details Date Type Department Care Team Description 02/18/2016 Hospital Encounter HX [facility] Gilberto Mcdermott M.D. [address] [place] [id number] (Wo rk) Social History Tobacco Use Types [...] Sign Reading Time Taken Comments Blood Pressure 105/85 02/18/2016 10:36 AM TECHNICAL SERVICES REP Pulse 89 02/18/2016 10:36 AM TECHNICAL SERVICES REP Temperature - - Respiratory Rate - - Oxygen Saturation - - Inhaled Oxygen Concentration - - Weight - - Height 172 cm (5' 7.72) 02/18/2016 10:36 AM TECHNICAL SERVICES REP Body Mass Index - - documented in this encounter Medications at Time of Discharge Medication Sig Dispensed Refills Start Date End Date aspirin 81 mg chewable Chew 1 tablet daily. 0 07/09/2020 tablet blood-glucose meter [facility] Dispense glucose 0 05/2308/11/2018 meter, test strips and lancets covered by the patient insurance. Test 2 times per day. documented as of this encounter Procedure Notes Gilberto Mcdermott M.D. - 02/18/2016 12:13 PM CST CYSTO CHIEF COMPLAINT / REASON FOR VISIT CYSTOSCOPY REPORT INDICATION Lower urinary tract symptoms INSTRUMENT Flexible cystoscope. ANESTHESIA 2% aqueous lidocaine jelly introduced into the urethra. PROCEDURE During this procedure the universal protocol was utilized. The patient's identity was confirmed by no less than two patient identifiers, correct procedure was verified, correct site was verified and marked as applicable and a final pause was completed. The patient was placed in a supine position. The genitalia were prepped and draped sterilely. The urethra was anesthetized with 2% aqueous lidocaine jelly. The cystoscope was advanced into the urethra. FINDINGS Meatus: Normal. Urethra: No strictures noted. Bulbous urethra and membranous urethra are normal. Prostate: Length: 2.5 cm. Lateral lobes: Mild lateral lobe hypertrophy without visual obstruction. Middle lobe: Absent. Bladder neck: Unremarkable. Bladder: Residual urine: Minimal. Ureteral orifices: Singular bilaterally, normal position on the trigone, slit- like in configurationand with clear efflux of urine noted bilaterally. Trabeculation: Mild. Foreign bodies: No evidence of stones, tumors, exophytic lesions or other foreign bodies. COMMENTS The procedure was well tolerated by the patient. He was discharged from the office in satisfactory condition. Post-cystoscopy instructions were reviewed with him. IMPRESSION / REPORT / PLAN 1. Prostate not visually obstructing PLAN: Please see separately dictated clinic note, same date. Electronically Signed By: GILBERTO MCDERMOTT MD On: 02/18/2016 12:14 PM Source: [facility] POWERCHART Document Id: [id number] NICAL SERVICES REP documented in this encounter Consult Notes Gilberto Mcdermott M.D. - 02/18/2016 10:02 AM CST [id number] CHIEF COMPLAINT/REASON FOR VISIT Lower urinary tract symptoms. HISTORY OF PRESENT ILLNESS This is a 65-year-old male, who I was asked to see by Dr. Ronald Molina. The patient gives a 6 month history of progressive lower urinary tract symptoms. Symptoms include pain in the suprapubic area, a weak stream, intermittent stream, burning with urination, pain in the penis, pain in the testes, pain in the perineum, slow stream, sense of incomplete emptying. He is currently on tamsulosin 0.8 mg dailyand tolterodine LA 2 mg daily. He is not convinced that these medications are really helping. He hasnot had fevers or chills. The patient has not ejaculated and as a result he is unaware of whether ornot he has painful ejaculation. He normally feels as though he empties his bladder well. One of his big concerns is that he has foul-smelling urine even though he had a recent urinalysis which was negative. He has not been on antibiotics. He previously has seen the urologist who had started him on thetamsulosin and tolterodine but he has not had any invasive testing. Patient's AUA symptom score is 22. PAST MEDICAL/SURGICAL HISTORY Diabetes mellitus type 2, hyperlipidemia, panic disorder, anxiety, obstructive sleep apnea, hypertension, coronary artery disease, irritable bowel syndrome. MEDICATIONS Aspirin 81 mg daily. Atorvastatin 20 mg daily. Fluoxetine 40 mg daily. Flonase as directed. Atrovent as directed. Lisinopril 5 mg daily. Metformin 850 mg 2 times daily. Metoprolol 25 mg 2 times daily. Ranitidine 150 mg 2 times daily. Tamsulosin 0.8 mg daily. Tolterodine 2 mg daily. ALLERGIES Bactrim, the patient is unsure what happened. FAMILY HISTORY Negative in parents and siblings for urological disease. SOCIAL HISTORY The patient is mostly retired. He used to smoke a pipe. Does not use alcohol or recreational drugs. SYSTEMS REVIEW See personal history form dated 02/18/2016. PHYSICAL EXAMINATION VITAL SIGNS: Temperature 36.7, heart rate 89, blood pressure 105/85. GENERAL: The patient is well nourished, well developed and in no apparent distress. There are no communication barriers. He is alert and oriented. HEAD: No abnormality of appearance. No facial [...] There are no inguinal hernias. RECTUM: Perirectal region: Unremarkable without evidence of condyloma, skin tags or other lesions. Rectal sphincter tone is normal. There are no rectal masses. Prostate: Prostate is approximately 25 g in size. Very tender to palpation. It is smooth in consistency. It is symmetrical. Prostate is without nodules or tenderness. Seminal vesicles are normal. Genitalia: Penis: No discharge, no masses and no plaques. Meatus is normally located on the glans penis. There is no meatal scarring and it is of normal size. Penis is uncircumcised, however the patient wears his foreskin pulled back behind the glans penis. Scrotum: No rashes. No hydroceles or spermatoceles are present. No palpable varicocele is noted. Testes: Both testes are descended. They are without masses or tenderness. Each testis is of normal size and consistency. Epididymi: Each epididymis is of normal size, without masses, without tenderness or signs of epididymitis. Both the right and left vas deferens are palpable. Perineum: Unremarkable. There are no obvious skin tags, condyloma or other lesions. SPINE: No spinal tenderness. No costovertebral angle tenderness. DIAGNOSTICS A uroflow was performed. He voided 131 mL in 28 seconds peak and mean are 7 and 4 mL/second respectively. Postvoid residual per bladder scan 32 mL. Cystoscopy is performed today. See separately dictated report. Briefly, no evidence of obstruction, normal study. IMPRESSION/REPORT/PLAN 1. I am of the opinion that this patient has chronic prostatitis. This will explain his pain, burning and voiding symptoms. Will also explain the painful prostate exam. 2. No significant bladder outlet obstruction. PLAN: I would like to place him on Levaquin 750 mg once daily for 3 weeks with 1 possible refill. Refill will be indicated if he has partial relief but there is room for additional improvement. The potential consequences of Levaquin including tendon issues were discussed. He is also reminded not to take it with dairy products. Assuming that he does have prostatitis and he does have significant improvement with antibiotic management, I would like to back him off of both the tamsulosin and tolterodine. Gilberto Mcdermott M.D./shaylee cc: Ronald Molina M.D. [facility] in [address] [place] [address]. [place] [address] Electronically Signed By: GILBERTO MCDERMOTT MD On: 02/20/2016 02:40 PM Source: [facility] [id number] Document Id: [id number] NICAL SERVICES REP documented in this encounter Miscellaneous Notes Miscellaneous - Gilberto Mcdermott M.D. - 02/18/2016 12:13 PM CST Ambulatory Patient Summary [address] [place], [place] [id number] Visit Information Name: ELIAN DAWKINS [facility] Number: [id number] Current Date: 02/18/2016 12:13:34 Physicians Attending Provider: GILBERTO MCDERMOTT MD Primary [...] tablet) 2 Tablet(s), Oral, once a day For anxiety and depression. fluticasone nasal (fluticasone 50 mcg/inh nasal spray) 2 Jupiter(s), Nostrils(Both), once a day in each nostril / For nasal congestion. ipratropium nasal (Atrovent 21 mcg/inh nasal spray) 2 Jupiter(s), Nostrils(Both), three times a day asneeded for Nasal congestion in each nostril / For nasal congestion. levoFLOXacin (Levaquin 500 mg oral tablet) 1 Tablet(s), Oral, once a day x 21 day(s) New Routed to [address] [id number] lisinopril (lisinopril 5 mg oral tablet) 1 [...] Oral, two times a day For urination. Stop Taking the Following Medications: Medication list as of 02-18-16 12:13 Attention: If you have any medications at home that are not on this list, DO NOT take them until youcontact your provider for clarification. Give a copy of your medication list to your primary care provider. Update your medication list any time medications or doses are changed and carry your medication list at all times in case of emergency. Electronically Signed By: GILBERTO MCDERMOTT MD Signed On:18-FEB-2016 12:13:30 Your Allergies & Intolerances Substance Reaction Symptoms [...] Your Upcoming Appointments Date Time Location Provider 02/27/2016 12:05 [facility] ENT Dereje ALEX, Adarsh Loren 03/17/2016 10:45 [facility] Urology Gilberto Mcdermott MD 04/09/2016 10:00 [facility] Lab [facility] 04/10/2016 13:30 [facility] Ronald Molina MD Attention: Contact [...] if you dont have one. Go to [email or web address] and click on Create Your Account. Then, follow the directions to complete the online form. Youll be asked for your [facility] number which you can find at the top of this document. Your Goals/Additional instructions: Source: [facility] POWERCHART Document Id: [id number] NICAL SERVICES REP Miscellaneous - Gilberto Mcdermott M.D. - 02/18/2016 12:13 PM CST Ambulatory Discharge Medication List [address] [id number] Visit Information Name: ELIAN DAWKINS [facility] Number: [id number] Current Date: 02/18/2016 12:13:33 Attending Provider: GILBERTO MCDERMOTT MD Primary Care [...] tablet) 2 Tablet(s), Oral, once a day For anxiety and depression. fluticasone nasal (fluticasone 50 mcg/inh nasal spray) 2 Jupiter(s), Nostrils(Both), once a day in each nostril / For nasal congestion. ipratropium nasal (Atrovent 21 mcg/inh nasal spray) 2 Jupiter(s), Nostrils(Both), three times a day asneeded for Nasal congestion in each nostril / For nasal congestion. levoFLOXacin (Levaquin 500 mg oral tablet) 1 Tablet(s), Oral, once a day x 21 day(s) [place] [address] lisinopril (lisinopril 5 mg oral tablet) 1 [...] Oral, two times a day For urination. Stop Taking the Following Medications: Medication list as of 02-18-16 12:13 Attention: If you have any medications at home that are not on this list, DO NOT take them until youcontact your provider for clarification. Give a copy of your medication list to your primary care provider. Update your medication list any time medications or doses are changed and carry your medication list at all times in case of emergency. Electronically Signed By: GILBERTO MCDERMOTT MD Signed On:18-FEB-2016 12:13:30 Additional Information: Source: [facility] POWERCHART Document Id: [id number] NICAL SERVICES REP Miscellaneous - Latrell Fink, C.N.A. - 02/18/2016 10:38 AM CST Urology AUA/BPH Symptom Score Urology AUA/BPH Symptom Score Entered On: 02/18/2016 10:41 TECHNICAL SERVICES REP Performed On: 02/18/2016 10:38 TECHNICAL SERVICES REP by LATRELL FINK CNA Urology AUA/BPH Symptom Score Emptying Bladder After Urinating : More than half the time Urinate 2 Hours After Urinating : About half the time Stop/Start Again When Urinating : About half the time Difficult to Postpone Urination : About half the time Weak Urinary Stream : More than half the time Push/Strain to Begin Urination : Not at all Up to Urinate at Night : 5 or more times Total Symptom Score : 22 Feel About Urinary Condition : Terrible LATRELL FINK CNA - 02/18/2016 10:38 TECHNICAL SERVICES REP Source: [facility] POWERCHART Document Id: [id number] TECHNICAL SERVICES REP!11 NICAL SERVICES REP Miscellaneous - Latrell Fink, C.N.A. - 02/18/2016 10:36 AM CST Adult Thermoplastic Technician Intake/History Adult Thermoplastic Technician Intake/History Entered On: 02/18/2016 10:37 TECHNICAL SERVICES REP Performed On: 02/18/2016 10:36 TECHNICAL SERVICES REP by LATRELL FINK CNA Intake Chief Complaint : HX bph - discomfort pelvic pain Temperature Core : 36.7 DegC(Converted to: 98.1 DegF) Peripheral Pulse Rate : 89 /min Systolic Blood Pressure : 105 mmHg Diastolic Blood Pressure : 85 mmHg NIBP Mean : 92 mmHg Height : 172 cm(Converted to: 5 ft 8 inch(es), 68 inch(es)) LATRELL FINK CNA - 02/18/2016 10:36 TECHNICAL SERVICES REP General Info Information Given By : Patient Languages : Faroese Is Patient Female and 13-50 no hysterectomy : Lolis LATRELL FINK CNA - 02/18/2016 10:36 TECHNICAL SERVICES REP Subjective Pain Symptoms : Lolis LATRELL FINK CNA - 02/18/2016 10:36 TECHNICAL SERVICES REP Dependent Habits Exposure to Tobacco Smoke : Other: Never Smoking Status : Never smoker Tobacco 2A : No Tobacco Use/Currently Using : No Tobacco Use/Last 30 Days : No Tobacco Use/Last 12 months : Lolis LATRELL FINK CNA - 02/18/2016 10:36 TECHNICAL SERVICES REP Source: [facility] Friday Document Id: [id number] TECHNICAL SERVICES REP!22 NICAL SERVICES REP Miscellaneous - Conversion, Historical Provider Ser - 01/03/2016 11:05 AM CDT *General Message Document Contains Addenda Addendum by ORLY JIMÉNEZ LPN on January 03, 2016 17:17:23 CDT Patient is okay with this date as well. Addendum by LAYNE POWELL APRN, CHRISTOPHER on January 03, 2016 16:22:48 CDT From: LAYNE POWELL APRN, CHRISTOPHER To: Urology Nurse; Sent: 01/03/2016 16:22:48 CDT Subject: RE: *General Message This appointment should be fine, otherwise he can see me at an earlier date. Addendum by LATRELL FINK CNA on January 03, 2016 15:45:28 CDT From: LATRELL FINK CNA ( Urology Nurse) To: LAYNE POWELL APRN, CHRISTOPHER; Sent: 01/03/2016 15:45:28 CDT Subject: FW: *General Message Please advise From: KELSIE GARCIA ( [address] Counting Machine Operator) To: ALEXANDRA Urology Nurse; Sent: 01/03/2016 11:05:25 CDT Subject: *General Message Patient is scheduled to see Dr. Mcdermott 02/18/16 in [facility] for enlarged prostrate not sure if he needs to be seen sooner for this, if so call him at [phone]. Source: [facility] POWERCHART Document Id: [id number] documented in this encounter Plan of Treatment Upcoming Encounters Date Type Specialty Care Team Description 04/23/2022 Office Visit Cardiovascular Disease Blas Peck M.D. [address] [place] [address] [phone] (Wo rk) documented as of this encounter Visit Diagnoses Not on filedocumented in this encounter
--- OUTSIDE RECORDS SUMMARY | 2022-02-17 12:27 | XMS_ITS | Encounter Summary ---
:1950 Author Organization [facility] Address [address] [place] [address] Care Team Providers Name Role Phone Unavailable Primary Care Provider Unavailable Encounter Details Date Type Department Care Team Description 05/16/2016 Hospital Encounter HX [facility] Ronald Leong M.D. [address] [id number] [phone] Social History Tobacco Use Types Packs/Day [...] Sign Reading Time Taken Comments Blood Pressure 123/70 05/16/2016 8:39 AM TOUR CONSULTANT Pulse 79 05/16/2016 8:39 AM TOUR CONSULTANT Temperature - - Respiratory Rate 16 05/16/2016 8:39 AM TOUR CONSULTANT Oxygen Saturation - - Inhaled Oxygen Concentration - - Weight 94.7 kg (208 lb 10.7 oz) 05/16/2016 8:39 AM TOUR CONSULTANT Height 172 cm (5' 7.72) 05/16/2016 8:39 AM TOUR CONSULTANT Body Mass Index 31.99 05/16/2016 8:39 AM TOUR CONSULTANT documented in this encounter Medications at Time [...] mg tablet documented as of this encounter Progress Notes Ronald Molina M.D. - 05/16/2016 8:28 AM CST [id number] CHIEF COMPLAINT/REASON FOR VISIT Followup on chronic medical problems. HISTORY OF PRESENT ILLNESS Elian is a 66-year-old male who presents to the clinic today for a one month followup from 04/25/2016. Patient walked into the clinic on Thursday (05/14/2016) and saw Alec Howard RN because he thoughthe was having a stroke. He had multiple concerns at that time. I reviewed note and recommendations. He took Metamucil and his bowel movements seem to be better. We stopped Metformin at his last visit because of abdominal bloating. His bloating seems to have improved. He has been taking Amaryl. He checks his blood sugar most days of the week, ranging from 118-186. He has headaches intermittently but usually feels better once he leaves his apartment. He mentioned that he occasionally has blurred vision, more in the right eye, and has difficulty concentrating. He was told by an eye doctor at [facility] that he has bleeding in his eyes and was told to return later this month. After looking at his records, he was seen at [facility] on 01/24/2016. Deanna note, he has early diabetic retinopathy and bilateral cataracts and told to return on 05/29/2016. Patient mentioned that he has bad dreams most nights. We discussed seeing sleep specialist. Additionally, he has a cold and nasal congestion. He uses nasal spray. He saw Monica Perez 02/27/2016 for nasal congestion. A CT of the nose and sinuses was done on 03/05/2016 and showed no evidence for acute or chronic sinusitis. No evidence for polyps or retention cysts. The ostiomeatalcomplexes are patent and clear. He followed with Dr. Reyez and surgical options were deferred at that time. Lately, he has developed intermittent flu-like symptoms. He feels like he had a fever last weekend. He has nausea, but no vomiting. Because of feeling sick, he would like wait on Prevnar 13 vaccine. Hementioned that he was probably dehydrated when he was sick. He has occasional chest pressure. Of note, he has history of CABG x 4 in 2015. He has not seen a psychiatrist for his anxiety yet. He is currently on Fluoxetine 40 mg daily. He mentioned that he took Paxil, Xanax, and Hydroxyzine in the past. Patient has history of panic attacks. I reviewed and updated his medication list. We discussed potential side effects. There are no additional questions, concerns, or complaints. MEDICATIONS Aspirin 81 mg by mouth daily. Atorvastatin 20 mg by mouth at bedtime. Zithromax 250 mg by mouth as directed for 5 days. BuSpar 5 mg by mouth three times a day. Doxycycline 100 mg by mouth twice a day for 21 days. Fluoxetine 40 mg by mouth daily. Fluticasone [...] 150 mg by mouth twice a day. Sildenafil 100 mg 1 tablet one hour prior to sexual activity. ALLERGIES Bactrim causing swelling. SYSTEMS REVIEW Please see HPI for pertinent positives, otherwise rest of ROS negative. PAST MEDICAL/SURGICAL HISTORY Diabetes mellitus type 2 with neuropathy. Hyperlipidemia. Panic disorder. Anxiety. Obstructive sleep apnea. Hypertension. Coronary artery disease. History of hay fever. Diverticulosis. Allergic rhinitis. Irritable bowel syndrome. BPH with obstruction. Overactive bladder. Nasal congestion. Numbness. Elevated BMI. History of colon polyp, tubular adenoma x 3. Status post repair of bilateral inguinal hernia. Status post cholecystectomy. 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 Status post colonoscopy, 07/27/2015. PREVENTIVE SERVICES Colonoscopy: 07/27/2015. PSA: 01/03/2016. Pneumovax: 01/26/2012. Prevnar: Due. Tetanus booster: 08/31/2015. Influenza: 12/13/2015. SOCIAL HISTORY He is and lives alone in [place]. He has three daughters. He is [place]. 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 He denies tobacco, drug, or alcohol abuse. FAMILY HISTORY Colon cancer in mother. Cataract in mother. Deep vein thrombosis in father. Diabetes mellitus in mother. Hypertension in mother. Irritable bowel syndrome in mother and grandfather. No family history ofprostate cancer. VITAL SIGNS HEIGHT: 172 cm. WEIGHT: 94.65 kg. BMI: 31.99 kg/m2. TEMP: 36.7 Deg C. PULSE: 79 /min. RESP: 16 /min. SYSTOLIC: 123 mmHg. DIASTOLIC: 70 mmHg. PHYSICAL EXAMINATION GENERAL: Patient is sitting. No distress. Able to talk without interruption. HEAD: No facial rash or asymmetry. He has tenderness over right maxillary sinus. EYES: PERRLA. EOMI. No pallor, icterus, or conjunctivitis. ENT: No nasal congestion, discharge, or bleeding. There is no ear infection or discharge. He has bilateral ear wax. No mastoid tenderness. Tongue is moist and midline. No oral lesions. LYMPH NODES: No cervical or supraclavicular lymphadenopathy. THYROID: No thyromegaly. No thyroid thrill or bruit. PERIPHERAL VESSELS: Good radial pulses. HEART: No carotid bruit. No JVD. Regular rhythm. There is no S3, gallop, murmur, or thrill. LUNGS: Normal respiratory effort. Clear to auscultation. Normal percussion. ABDOMEN: Moves with respiration. Bowel sounds present. Soft. No rebound tenderness, guarding, or rigidity. No organomegaly. EXTREMITIES: No clubbing, cyanosis, edema, infection, or calf tenderness. GAIT: No abnormal gait. MENTAL: Alert and oriented x 3. Normal mood and affect. NEURO: Grossly nonfocal exam. IMPRESSION/REPORT/PLAN 1. Blurred vision. Patient is stable from a neurological standpoint. There is no focal neurological deficit or increased intracranial pressure. No evidence of stroke clinically. We need to control his diabetes. He will follow with [facility] on 05/29/2016. 2. Nasal congestion/obstruction with postnasal drip, chronic rhinitis, and nasal septal deformity. He was advised to use Fluticasone daily and Atrovent three times a day as needed. He needs to see Dr. Adarsh Reyez, ENT for further evaluation and management. 3. Acute right maxillary sinusitis. We will treat with Z-Satnam. He was advised to drink plenty of fluids. 4. Question of obstructive sleep apnea. He has headaches and bad dreams. He needs to see Dr. Cam Garces, Neurologist for evaluation of possible obstructive sleep apnea. 5. Abdominal bloating diverticulosis. It is improved after stopping Metformin and taking Metamucil. He needs to make sure fiber and water intake is adequate. He will continue Metamucil. 6. Anxiety with history of panic attacks. I strongly recommend that he sees psychiatrist for management of anxiety, depression, and panic attacks. He will continue current dose of Fluoxetine. After discussion, it was decided to add BuSpar 5 mg three times a day for anxiety. He should contact me if he develops side effects to new prescription medication. 7. Diabetes mellitus type 2 with neuropathy. He was advised to continue current ADA diet, regular exercise, and current medication. Need to monitor blood sugar daily. Self-management goals of diabetes mellitus were reviewed. Need to check hemoglobin A1c and urine microalbumin in 3 months. 8. Hyperlipidemia. There are no side effects from Atorvastatin. Patient was advised to continue low cholesterol, low fat diet, regular exercise, and current medication. Need to check fasting lipid profile again in 3 months. 9. Benign essential hypertension. Blood pressure is controlled. He is stable from a cardiac standpoint. Need to continue sodium controlled diet and current medication. Monitor blood pressure regularly at home. Blood pressure goal is less than 140/90 mmHg. Need to continue cardiovascular risk factors mo dification. The patient will return to the clinic in 2 months for followup with following tests prior to appointment: ALT, AST, Fasting BMP, CBC, CK, Hemoglobin A1c, Lipids, TSH, and Urine microalbumin. This document serves as a record of services personally performed by Dr. Ronald Molina. It was created on their behalf by Balaji Larios, a trained medical records clerk. The creation of this record is based on the scribe's personal observations and the provider's statements to them. This document has been checked and approved by the attending provider. Ronald Molina M.D./melissa Electronically Signed By: RONALD MOLINA MD On: 05/16/2016 06:23 PM Modified by and Electronically Signed by: RONALD MOLINA MD On: 05/16/2016 06:23 PM Source: [facility] [id number] Document Id: [id number] CONSULTANT documented in this encounter Miscellaneous Notes Miscellaneous - Alec Howard R.N. - 06/02/2016 8:50 AM CST Refill request - Ranitidine and Atorvastatin Document Contains Addenda Addendum by RONALD MOLINA MD on June 02, 2016 10:30:26 TOUR CONSULTANT From: RONALD MOLINA MD Sent: 06/02/2016 10:30:26 TOUR CONSULTANT Subject: RE:Refill request - Ranitidine and Atorvastatin Approved Order:raNITIdine (raNITIdine 150 mg oral tablet) 1 tab(s) PO 2xDay Qty: 60 tab(s) Refills: 2 Substitutions Allowed Route To [facility] For stomach. Signed by RONALD MOLINA MD 06/02/2016 10:30:22 Approved Order:atorvastatin (atorvastatin 20 mg oral tablet) 1 tab(s) PO Bedtime Qty: 30 tab(s) Refills: 2 Substitutions Allowed Route To [facility] For high cholesterol. Signed by RONALD MOLINA MD 06/02/2016 10:30:21 From: ALEC HOWARD RN ([facility] Medication Refill) To: RONALD MOLINA MD; Sent: 06/02/2016 08:50:57 TOUR CONSULTANT Subject: Refill request - Ranitidine and Atorvastatin On hold pending signature Order:atorvastatin (atorvastatin 20 mg oral tablet) 1 tab(s) PO Bedtime Qty: 30 tab(s) Refills: 2 Substitutions Allowed Route To Pharmacy [facility] 165 For high cholesterol. On hold pending signature Order:raNITIdine (raNITIdine 150 mg oral tablet) 1 tab(s) PO 2xDay Qty: 60 tab(s) Refills: 2 Substitutions Allowed Route To Pharmacy [id number] For stomach. Documented Discontinue:atorvastatin (atorvastatin 20 mg oral tablet) Signed by ALEC HOWARD RN 06/02/2016 08:48:10 Documented Discontinue:raNITIdine (raNITIdine 150 mg oral tablet) Signed by ALEC HOWARD RN 06/02/2016 08:48:09 Caller is: ( _ ) Patient ( _ ) Mother ( _ ) Father ( _ ) Spouse ( _ ) Daughter ( _ ) Son ( x ) Pharmacy ( _ ) Other: _ Provider: Jesse Pharmacy: [facility] Name of Medications Needing Refill: Ranitidine and Atorvastatin Last Refill Date: 04/30/16 and 04/28/16 respectively Additional Information: Last Lipid done elsewhere, documented in Brian, 07/11/15 Last / Future Appointment: 05/16/16 Disposition: ( x ) Send to Pharmacy ( _ ) Call to Pharmacy ( _ ) 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 - 05/16/2016 9:53 AM CST Ambulatory Patient Summary [facility] [address] [place] [id number] Visit Information Name: ELIAN DAWKINS [facility] Number: [id number] Current Date: 05/16/2016 09:53:00 Physicians Attending Provider: RONALD MOLINA MD Primary Care Provider: RONALD MOLINA MD ELIAN DAWKINS DAVID has been given the following list [...] a day (at bedtime) For high cholesterol. azithromycin (Zithromax 250 mg oral tablet) See Instructions 2 tablets on day 1, then 1 tablet on day 2 to 5. PO As Directed New Routed to [address] [address] busPIRone (BuSpar 5 mg oral tablet) 1 Tablet(s), Oral, three times a day For anxiety New Routed to [address] [address] FLUoxetine (FLUoxetine 20 mg oral tablet) 2 Tablet(s), Oral, once a day (in the morning) For anxietyand depression. fluticasone nasal (fluticasone 50 mcg/inh nasal spray) 2 [place](s), Nostrils(Both), once a day glimepiride (Amaryl 4 mg oral tablet) 1 Tablet(s), Oral, once a day (in the morning) with the first meal of the day STOP Metformin. ipratropium nasal (Atrovent 21 mcg/inh nasal spray) 2 [place](s), Nostrils(Both), three times a day asneeded for Nasal congestion in each nostril / For nasal congestion. lisinopril (lisinopril 2.5 mg oral tablet) 1 Tablet(s), Oral, once a day (in the morning) For high blood pressure and kidney protection. metoprolol (metoprolol tartrate 25 mg oral tablet) 1 Tablet(s), Oral, two times a day For high bloodpressure. psyllium (Metamucil) Take it once a day. raNITIdine (raNITIdine 150 mg oral tablet) 1 Tablet(s), Oral, two times a day For stomach. Stop Taking the Following Medications: doxycycline (doxycycline hyclate 100 mg oral tablet) sildenafil (sildenafil 100 mg oral tablet) Medication list as of 05-16-16 09:53 Attention: If you have any medications at [...] Electronically Signed By: RONALD MOLINA MD Signed On:16-MAY-2016 09:52:54 Your Allergies & Intolerances Substance Reaction Symptoms [...] Spasm Bladder Active Diverticulosis Colon Active Callus [place] Foot Bilateral Active Your Upcoming Appointments Date Time Location Provider 06/23/2016 08:15 [facility] Sabrina Valadez CNP Attention: Contact your [...] Youll be asked for your [facility] number which you can find at the top of this document. Your Goals/Additional instructions: Source: [facility] POWERCHART Document Id: [id number] CONSULTANT Miscellaneous - Ronald Molina M.D. - 05/16/2016 9:52 AM CST Ambulatory Discharge Medication List [address] [id number] Visit Information Name: ELIAN DAWKINS [facility] Number: [id number] Current Date: 05/16/2016 09:52:59 Attending Provider: RONALD MOLINA MD Primary Care [...] a day (at bedtime) For high cholesterol. azithromycin (Zithromax 250 mg oral tablet) See Instructions 2 tablets on day 1, then 1 tablet on day 2 to 5. PO As Directed New Routed to [address] [address] busPIRone (BuSpar 5 mg oral tablet) 1 Tablet(s), Oral, three times a day For anxiety New Routed to [address] [address] FLUoxetine (FLUoxetine 20 mg oral tablet) 2 Tablet(s), Oral, once a day (in the morning) For anxietyand depression. fluticasone nasal (fluticasone 50 mcg/inh nasal spray) 2 [place](s), Nostrils(Both), once a day glimepiride (Amaryl 4 mg oral tablet) 1 Tablet(s), Oral, once a day (in the morning) with the first meal of the day STOP Metformin. ipratropium nasal (Atrovent 21 mcg/inh nasal spray) 2 [place](s), Nostrils(Both), three times a day asneeded for Nasal congestion in each nostril / For nasal congestion. lisinopril (lisinopril 2.5 mg oral tablet) 1 Tablet(s), Oral, once a day (in the morning) For high blood pressure and kidney protection. metoprolol (metoprolol tartrate 25 mg oral tablet) 1 Tablet(s), Oral, two times a day For high bloodpressure. psyllium (Metamucil) Take it once a day. raNITIdine (raNITIdine 150 mg oral tablet) 1 Tablet(s), Oral, two times a day For stomach. Stop Taking the Following Medications: doxycycline (doxycycline hyclate 100 mg oral tablet) sildenafil (sildenafil 100 mg oral tablet) Medication list as of 05-16-16 09:52 Attention: If you have any medications at [...] Electronically Signed By: RONALD MOLINA MD Signed On:16-MAY-2016 09:52:54 Additional Information: Source: [facility] POWERCHART Document Id: [id number] CONSULTANT Miscellaneous - Estefany Reeder, LMichellePMichelleN. - 05/16/2016 8:39 AM CST Adult Structural Worker Intake/History Adult Structural Worker Intake/History Entered On: 05/16/2016 8:41 TOUR CONSULTANT Performed On: 05/16/2016 8:39 TOUR CONSULTANT by ESTEFANY REEDER LPN Intake Chief Complaint : 1. One month follow-up from 04/25/2016 2. nasal congestion Temperature Core : 36.7 DegC(Converted to: 98.1 DegF) Peripheral Pulse Rate : 79 /min Respiratory Rate : 16 /min Systolic Blood Pressure : 123 mmHg Diastolic Blood Pressure : 70 mmHg NIBP Mean : 88 mmHg BP Location : Left upper extremity Blood Pressure Cuff Size : Regular Height : 172 cm(Converted to: 5 ft 8 inch(es), 68 inch(es)) Actual Weight : 94.65 kg(Converted to: 208 lb 11 oz) Weight Source : Standing scale Dosing Weight Clinic : 94.65 kg Clinic BSA : 2.13 Body Mass Index : 31.99 kg/m2 ESTEFANY REEDER LPN - 05/16/2016 8:39 TOUR CONSULTANT General Info Information Given By : Patient Preferred Communication Mode : Verbal, Written Languages : [place] Is Patient Female and 13-50 no hysterectomy : ESTEFANY Garcia LPN - 05/16/2016 8:39 TOUR CONSULTANT Subjective Pain Symptoms : ESTEFANY Garcia LPN - 05/16/2016 8:39 TOUR CONSULTANT Dependent Habits Exposure to Tobacco Smoke : Other: Never Smoking Status : Never smoker Tobacco 2A : No Tobacco Use/Currently Using : No Tobacco Use/Last 30 Days : No Tobacco Use/Last 12 months : ESTEFANY Garcia LPN - 05/16/2016 8:39 TOUR CONSULTANT [facility] Document Id: [id number] TOUR CONSULTANT!31 CONSULTANT documented in this encounter Plan of Treatment Upcoming Encounters Date Type Specialty Care Team Description 04/23/2022 Office Visit Cardiovascular Disease Blas Peck M.D. [address] [place] [address] [phone] ([id number] [id number]) documented as of this encounter Visit Diagnoses Not on filedocumented in this encounter
--- OUTSIDE RECORDS SUMMARY | 2022-02-17 12:27 | XMS_ITS | Encounter Summary ---
:1950 Author Organization [facility] Address [address] [place] [address] Care Team Providers Name Role Phone Unavailable Primary Care Provider Unavailable Encounter Details Date Type Department Care Team Description 03/17/2016 Hospital Encounter HX [facility]BCV UROLOGY Gilberto Mcdermott M.D. [address] [place] [phone] (Wo rk) Social History Tobacco Use [...] Sign Reading Time Taken Comments Blood Pressure 118/58 03/17/2016 10:44 AM HAM SAWYER Pulse 84 03/17/2016 10:44 AM HAM SAWYER Temperature - - Respiratory Rate 22 03/17/2016 10:44 AM HAM SAWYER Oxygen Saturation - - Inhaled Oxygen Concentration - - Weight - - Height 172 cm (5' 7.72) 03/17/2016 10:44 AM HAM SAWYER Body Mass Index - - documented in this encounter Medications at Time of Discharge Medication Sig Dispensed Refills Start Date End Date aspirin 81 mg chewable Chew 1 tablet daily. 0 07/09/2020 tablet blood-glucose meter [facility] [place]pense glucose 0 05/2308/11/2018 meter, test strips and lancets covered by the patient insurance. Test 2 times per day. documented as of this encounter Progress Notes Gilberto Mcdermott M.D. - 03/17/2016 10:18 AM CST [id number] CHIEF COMPLAINT/REASON FOR VISIT Lower urinary tract symptoms. HISTORY OF PRESENT ILLNESS This is a 65-year-old male who was initially seen by myself on February 17 of this year. Based on his history was described it was felt that he had chronic prostatitis and was placed on Levaquin. He is currently taking tolterodine 2 mg 2 twice daily and tamsulosin 0.8 mg once daily. With the Levaquin his pain has entirely resolved. He did indicate that it took a few weeks to go away. His AUA symptom score has gone from 22 down to 17. He has occasionally skipped tamsulosin and discovered that it does not make a difference. I would note that his cystoscopy demonstrated no evidence of bladder outlet obstruction. MEDICATIONS Medications per EMR on 03/17/2016. ALLERGIES Allergies per EMR on 03/17/2016. SYSTEMS REVIEW Unchanged. DIAGNOSTICS Uroflow is performed. He only voided 59 mL but did so in 20 seconds. Peak and mean are 4 and 2 mL/second respectively. Insufficient volume to be statistically significant test. Postvoid residual thoughis excellent. Per bladder scan it is 0. IMPRESSION/REPORT/PLAN 1. Chronic prostatitis, improved. 2. Lower urinary tract symptoms without bladder outlet obstruction. PLAN: Complete current course of Levaquin. I would like him to drop the tamsulosin down from 0.8 to 0.4 mg for 2 weeks and then discontinue the medication. We will see him back in 4 weeks to monitor his progress and make further medication adjustments. In the meantime I have asked him to continue his tolterodine unchanged. In order for us to better understand what's going on. I have asked him to make1 medication change at a time. I am hopeful that we can get him off of both medications, or at leaston the lowest possible dose. Gilberto Mcdermott M.D./shaylee cc: Ronald Molina M.D. [facility] in [address] [place] [address] [place] [address] Electronically Signed By: GILBERTO MCDERMOTT MD On: 03/18/2016 04:57 PM Source: [facility] MHSDOLBEYNONRADSYS Document Id: [id number] SAWYER documented in this encounter Miscellaneous Notes Miscellaneous - Gilberto Mcdermott M.D. - 03/17/2016 11:11 AM CST Ambulatory Patient Summary [address] [id number] Visit Information Name: DEBBIKAYCEE ELIAN HERNANDEZ [facility] Number: [phone] Current Date: 03/17/2016 11:11:01 Physicians Attending Provider: GILBERTO MCDERMOTT MD Primary [...] nasal (fluticasone 50 mcg/inh nasal spray) 2 Robbins(s), Nostrils(Both), once a day in each nostril / For nasal congestion. ipratropium nasal (Atrovent 21 mcg/inh nasal spray) 2 Robbins(s), Nostrils(Both), three times a day asneeded for [...] the Following Medications: Medication list as of 03-17-16 11:11 Attention: If you have any medications at [...] Electronically Signed By: GILBERTO MCDERMOTT MD Signed On:17-MAR-2016 11:10:32 Your Allergies & Intolerances Substance Reaction Symptoms [...] 04/10/2016 13:30 FBCV InternMed Jesse ALEX, Phunt Attention: Contact your local Clinic if further [...] if you dont have one. Go to [email or web address] and click on Create Your Account. Then, follow the directions to complete the online form. Youll be asked for your [facility] number which you can find at the top of this document. Your Goals/Additional instructions: Source: [facility] POWERCHART Document Id: [id number] SAWYER Miscellaneous - Gilberto Mcdermott M.D. - 03/17/2016 11:11 AM CST Ambulatory Discharge Medication List [address] [id number] Visit Information Name: ELIAN DAWKINS [facility] Number: [phone] Current Date: 03/17/2016 11:11:00 Attending Provider: GILBERTO MCDERMOTT MD Primary Care [...] nasal (fluticasone 50 mcg/inh nasal spray) 2 Robbins(s), Nostrils(Both), once a day in each nostril / For nasal congestion. ipratropium nasal (Atrovent 21 mcg/inh nasal spray) 2 Robbins(s), Nostrils(Both), three times a day asneeded for [...] the Following Medications: Medication list as of 03-17-16 11:11 Attention: If you have any medications at [...] Electronically Signed By: GILBERTO MCDERMOTT MD Signed On:17-MAR-2016 11:10:32 Additional Information: Source: [facility] POWERCHART Document Id: [id number] SAWYER Miscellaneous - Curt Paula, L.P.N. - 03/17/2016 10:53 AM CST Urology AUA/BPH Symptom Score Urology AUA/BPH Symptom Score Entered On: 03/17/2016 10:58 HAM SAWYER Performed On: 03/17/2016 10:53 HAM SAWYER by CURT PAULA LPN Urology AUA/BPH Symptom Score Emptying Bladder After Urinating : About half the time Urinate 2 Hours After Urinating : About half the time Stop/Start Again When Urinating : About half the time Difficult to Postpone Urination : About half the time Weak Urinary Stream : About half the time Push/Strain to Begin Urination : Less than 1 time in 5 Up to Urinate at Night : 1 time Total Symptom Score : 17 Feel About Urinary Condition : Satisfied CURT PAULA LPN - 03/17/2016 10:53 HAM SAWYER Source: [employer] Document Id: [id number] HAM SAWYER!11 SAWYER Miscellaneous - Curt Paula L.P.Pooja - 03/17/2016 10:44 AM CST Adult Burr Picker Intake/History Adult Burr Picker Intake/History Entered On: 03/17/2016 10:52 HAM SAWYER Performed On: 03/17/2016 10:44 HAM SAWYER by CURT PAULA LPN Intake Chief Complaint : Recheck -Has good days and bad days Temperature Core : 36.4 DegC(Converted to: 97.5 DegF) (LOW) Peripheral Pulse Rate : 84 /min Respiratory Rate : 22 /min (HI) Systolic Blood Pressure : 118 mmHg Diastolic Blood Pressure : 58 mmHg NIBP Mean : 78 mmHg BP Location : Right upper extremity Blood Pressure Cuff Size : Regular Oxygen Therapy : Room air Height : 172 cm(Converted to: 5 ft 8 inch(es), 68 inch(es)) CURT PAULA LPN - 03/17/2016 10:44 HAM SAWYER General Info Information Given By : Patient Preferred Communication Mode : Verbal Languages : Thai Is Patient Female and 13-50 no hysterectomy : No CURT PAULA LPN - 03/17/2016 10:44 HAM SAWYER Subjective Pain Symptoms : CURT Link LPN - 03/17/2016 10:44 HAM SAWYER Dependent Habits Exposure to Tobacco Smoke : Other: Never Smoking Status : Never smoker Tobacco 2A : No Tobacco Use/Currently Using : No Tobacco Use/Last 30 Days : No Tobacco Use/Last 12 months : CURT Link LPN - 03/17/2016 10:44 HAM SAWYER Source: [facility] POWERCHART Document Id: [id number] HAM SAWYER!27 SAWYER documented in this encounter Plan of Treatment Upcoming Encounters Date Type Specialty Care Team Description 04/23/2022 Office Visit Cardiovascular Disease Blas Peck M.D. [address] [place] [phone] (Wo rk) documented as of this encounter Visit Diagnoses Not on filedocumented in this encounter
--- OUTSIDE RECORDS SUMMARY | 2022-02-17 12:27 | XMS_ITS | Encounter Summary ---
:1950 Author Organization [facility] Address [address] [place] [address] Care Team Providers Name Role Phone Unavailable Primary Care Provider Unavailable Encounter Details Date Type Department Care Team Description 05/29/2016 Hospital Encounter HX [facility] FAMILYPRA Franco Molina M.D. [address] [place] [address] [address] [phone] Social History Tobacco Use Types Packs/Day [...] - - Height 172 cm (5' 7.72) 05/29/2016 1:46 PM SPA COORDINATOR Body Mass Index - - documented in [...] Visit Cardiovascular Disease Blas Peck M.D. [address] [place] [phone] (Wo rk) documented as of this encounter Visit Diagnoses Not on filedocumented in this encounter
--- OUTSIDE RECORDS SUMMARY | 2022-02-17 12:27 | XMS_ITS | Encounter Summary ---
:1950 Author Organization [facility] Address [address] [place] [address] Care Team Providers Name Role Phone Unavailable Primary Care Provider Unavailable Encounter Details Date Type Department Care Team Description 03/26/2016 Hospital Encounter HX [facility] INTERNMED Mery Holder V., BRIAN, C.N.P. [address] [place] [phone] (Wo rk) Social History Tobacco [...] Sign Reading Time Taken Comments Blood Pressure 119/76 03/26/2016 3:29 PM GREENSMAN Pulse 72 03/26/2016 3:29 PM GREENSMAN Temperature - - Respiratory Rate 20 03/26/2016 3:29 PM GREENSMAN Oxygen Saturation - - Inhaled Oxygen Concentration - - Weight 97.6 kg (215 lb 0.9 oz) 03/26/2016 3:29 PM GREENSMAN Height 172 cm (5' 7.72) 03/26/2016 3:29 PM GREENSMAN Body Mass Index 32.97 03/26/2016 3:29 PM GREENSMAN documented in this encounter Medications at Time [...] this encounter Progress Notes Chi Holder APRN, CooperNMichelleP. - 03/26/2016 2:50 PM CST [id number] HISTORY OF PRESENT ILLNESS Mr. Dawkins presents today after being seen in the ENT clinic for complaints of bladder spasms. He recently had a cystoscopy with Dr. Mcdermott. He states ever since then his stream is weak and not veryfull. He has pain in the suprapubic area. He feels like he has to urinate but cannot. He also statesthat his bowel movements have been coming in pieces rather than appearing normal. According to Dr. Mcdermott' note the prostate was not visually obstructing. He denies any headaches, fevers, chills, night sweats. He denies any cardiac complaints, respiratorycomplaints or nausea, vomiting or diarrhea for abdominal complaints. He does state that he has history of anxiety and depression. [place] been here a year he said. He states he does not like the area because he has not met anyone and he does not know anyone but he is here for his daughter and granddaughters that living [place]. He states that he had been on an antidepressant but was taken off of its and has not been placed on another one. Dr. Molina is his regular provider and he has an appointment with him on the 10 of April. MEDICATIONS 1. Aspirin 81 mg daily for cardio health. 2. Atorvastatin 20 mg daily for hyperlipidemia. 3. Fluoxetine 20 mg daily for depression and anxiety. 4. Fluticasone 50 mcg inhalation spray 2 sprays both nostrils daily. 5. Atrovent inhaler 2 sprays 3 times a day as needed for congestion. 6. Levaquin 500 mg daily 1 tab for 21 days. 7. Lisinopril 5 mg daily for hypertension. 8. Metformin 850 mg 2 times a day for diabetes mellitus type 2. 9. Metoprolol tartrate 25 mg 2 times a day for hypertension. 10. Ranitidine 150 mg 2 times a day for GERD. 11. Tamsulosin 0.4 mg 2 caps daily for prostate. 12. Tolterodine 2 mg for urination. ALLERGIES Bactrim. PAST MEDICAL/SURGICAL HISTORY 1. Depression and anxiety. 2. Irritable bowel syndrome. 3. Essential hypertension. 4. Diabetes mellitus type 2. 5. 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 6. Hyperlipidemia. 7. History of nasal congestion with hayfever and rhinitis. 8. BPH without obstruction. 9. Sleep apnea. No CPAP. 10. Urinary retention. 11. History of urinary tract infections. VITAL SIGNS Temperature 37.2, pulse 72, respirations 20, blood pressure 119/76. Weight 97.55 kg. PHYSICAL EXAMINATION GENERAL: He is in no acute distress, appearing his stated age. SKIN: No lesions noted or reported. HEENT: Head: Full head of hair. No scalp lesions noted. Eyes: Conjunctiva clear. Noninjected. Lids symmetric. Ears: TMs visualized, pearly villalba with cone of light. Nose: No drainage noted. Mouth: Buccal mucosa moist. Tongue midline. No lesions, plaques, or ulcers. NECK: No JVD, lymphadenopathy, thyromegaly. CARDIAC: S1, S2. Regular rate and rhythm. No murmurs, gallops, or rubs. LUNGS: Clear bilaterally with no adventitious breath sounds. Good respiratory effort. ABDOMEN: Obese, positive bowel sounds in 4 quadrants. No tenderness or guarding. No pulsatile massesnoted. No organomegaly. There is some pressure when the suprapubic area is palpated. IMPRESSION/REPORT/PLAN Bladder spasms status post cystoscopy. A urinalysis was done and shows no overt signs of UTI. A culture will be done. I did take him off of the tolterodine 2 mg tablet and will try oxybutynin 5 mg extra-strength daily. He had stopped taking the Levaquin and I told him to continue with the Levaquin andfinish the course that Dr. Molina had ordered. He will see Dr. Molina on April 10. I will give a report on the efficacy of the oxybutynin as well as the efficacy of the Levaquin. Chi Holder CNP/shaylee Electronically Signed By: CHI HOLDER APRN, CNP On: 03/27/2016 11:19 AM Source: [facility] MHSDOLBEANASTASIYA Document Id: [id number] NSMAN documented in this encounter Nursing Notes Chi Holder APRN C.N.P. - 03/26/2016 4:02 PM CST Plan of treatment 1. Stop the Tolterodine. 2. Start Oxybutinin 5mg once daily 3. Continue the Levaquin ( antibiotic) Electronically Signed By: CHI HOLDER APRN, CNP On: 03/26/2016 04:04 PM Source: [facility] POWERCHART Document Id: [id number] NSMAN documented in this encounter Miscellaneous Notes Miscellaneous - Margo Grant L.P.N. - 03/26/2016 3:29 PM CST Adult Information Technology Coordinator Intake/History Adult Information Technology Coordinator Intake/History Entered On: 03/26/2016 15:35 GREENSMAN Performed On: 03/26/2016 15:29 GREENSMAN by MARGO GRANT LPN Intake Chief Complaint : Bladder infection- sometimes trouble urinating in am. Pain in bladder and penis atnight. Uncomfortable. Temperature Core : 37.2 DegC(Converted to: 99.0 DegF) Peripheral Pulse Rate : 72 /min Respiratory Rate : 20 /min Systolic Blood Pressure : 119 mmHg Diastolic Blood Pressure : 76 mmHg NIBP Mean : 90 mmHg BP Location : Left upper extremity Blood Pressure Cuff Size : Regular Height : 172 cm(Converted to: 5 ft 8 inch(es), 68 inch(es)) Actual Weight : 97.55 kg(Converted to: 215 lb 1 oz) Weight Source : Standing scale Dosing Weight Clinic : 97.55 kg Clinic BSA : 2.16 Body Mass Index : 32.97 kg/m2 MARGO GRANT LPN - 03/26/2016 15:29 GREENSMAN General Info Information Given By : Patient Preferred Communication Mode : Verbal Languages : Paraguayan Is Patient Female and 13-50 no hysterectomy : No RUDY MARGO Anthony LPN - 03/26/2016 15:29 GREENSMAN Subjective Pain Symptoms : Yes GRANTMARGO LPN - 03/26/2016 15:29 GREENSMAN Pain Scale Pain Scale Verbal 0-10 : Open MARGO GRANT Raj HUGHSE - 03/26/2016 15:29 GREENSMAN Pain Pain Assessment Grid Pain 1 Location : Bladder Quality : Other: discomfort MARGO GRANT LPN - 03/26/2016 15:29 GREENSMAN Dependent Habits Exposure to Tobacco Smoke : Other: Never Smoking Status : Never smoker Tobacco 2A : No Tobacco Use/Currently Using : No Tobacco Use/Last 30 Days : No Tobacco Use/Last 12 months : No MARGO GRANT LPN - 03/26/2016 15:29 GREENSMAN Source: [facility] [employer] Document Id: [id number] GREENSMAN!38 NSMAN Miscellaneous - Chi Holdre APRN, C.N.P. - 03/26/2016 3:01 PM CST Ambulatory Patient Summary [facility] [address] [place] [id number] Visit Information Name: DEBBIKAYCEE ELIAN DAVID [facility] Number: [phone] Current Date: 03/26/2016 15:01:23 Physicians Attending Provider: CHI HOLDER APRN [facility] Primary Care Provider: RONALD MOLINA MD MACKMirella ELIAN DAVID has been given the following list [...] nasal (fluticasone 50 mcg/inh nasal spray) 2 Florence(s), Nostrils(Both), once a day in each nostril / For nasal congestion. fluticasone nasal (fluticasone 50 mcg/inh nasal spray) 2 Florence(s), Nostrils(Both), once a day ipratropium nasal (Atrovent 21 mcg/inh nasal spray) 2 Florence(s), Nostrils(Both), three times a day asneeded for [...] Following Medications: Medication list as of 03-26-16 15:01 Attention: If you have any medications at home that are not on this list, DO NOT take them until youcontact your provider for clarification. Give a copy of your medication list to your primary care provider. Update your medication list any time medications or doses are changed and carry your medication list at all times in case of emergency. Electronically Signed By: CHI HOLDER APRN, CNP Signed On:26-MAR-2016 15:01:05 Your Allergies & Intolerances Substance Reaction Symptoms [...] Active Infection Urinary Tract Acute (UTI) Active Your Upcoming Appointments Date Time Location Provider 04/09/2016 10:00 FBCV Lab [facility]V Lab 04/10/2016 13:30 [facility] InternMed Jesse ALEX, Phunt 04/21/2016 08:45 FBCV Urology Sabrina Valadez CNP Attention: Contact your local Clinic if further appointment detail needed. Anatomy of the Male Urinary Tract Your urinary tract helps to get rid of your bodys liquid waste. The kidneys constantly filter the blood to collect unneeded chemicals and water, making urine. Urine travels through the ureters to the bladder. The bladder fills with urine, holding it until youre ready to release it. Signals from the brain tell the sphincter (muscles around the opening of the bladder) when to let urine flow out of the bladder. The urethra is the canal that carries urine from the bladder out of the body. In men, the prostate gland wraps around the urethra near the bladder. ?? [id number] Dinesh Avalos, [address] [place] [address]. All rights reserved. This information is not intended as a substitute for professional medical care. Always follow your healthcare professional's instructions. Consider Using Patient Online Services Patient Online [...] you dont have one. Go to [email or web address] and click on Create Your Account. Then, follow the directions to complete the online form. Youll be asked for your [facility] number which you can find at the top of this document. Your Goals/Additional instructions: This document has images extracted. Please consider using [employer] for all your patient education needs. Source: [facility] POWERCHART Document Id: [id number] NSMAN Miscellaneous - Chi Holder APRN, C.N.P. - 03/26/2016 3:01 PM CST Ambulatory Discharge Medication List [address] [id number] Visit Information Name: ELIAN DAWKINS [facility] Number: [phone] Current Date: 03/26/2016 15:01:22 Attending Provider: CHI HOLDER APRN [facility] Primary Care Provider: RONALD MOLINA MD YOLY [...] nasal (fluticasone 50 mcg/inh nasal spray) 2 Florence(s), Nostrils(Both), once a day in each nostril / For nasal congestion. fluticasone nasal (fluticasone 50 mcg/inh nasal spray) 2 Florence(s), Nostrils(Both), once a day ipratropium nasal (Atrovent 21 mcg/inh nasal spray) 2 Florence(s), Nostrils(Both), three times a day asneeded for [...] Following Medications: Medication list as of 03-26-16 15:01 Attention: If you have any medications at home that are not on this list, DO NOT take them until youcontact your provider for clarification. Give a copy of your medication list to your primary care provider. Update your medication list any time medications or doses are changed and carry your medication list at all times in case of emergency. Electronically Signed By: CHI HOLDER APRN, CNP Signed On:26-MAR-2016 15:01:05 Additional Information: Source: [facility] POWERCHART Document Id: [id number] NSMAN documented in this encounter Plan of Treatment Upcoming Encounters Date Type Specialty Care Team Description 04/23/2022 Office Visit Cardiovascular Disease Blas Peck M.D. [facility] [place] [phone] (Wo rk) documented as of this encounter Procedures Procedure Name Priority Date/Time Associated Comments Diagnosis URINALYSIS WITH Routine 03/26/2016 3:03 PM Result s for this MICROSCOPIC GREENSMAN procedure are i n the results section. BACTERIAL CULTURE, Routine 03/26/2016 3:03 PM Res ults for this AEROBIC, URINE GREENSMAN procedure are in the results section. documented in this encounter Results (ABNORMAL) Urinalysis, Complete, Includes Microscopic (03/26/2016 3:03 PM GREENSMAN) P athologist Signature Clarity Clear Clear POWERCHART HXUr Color Yellow Colorless POWERCHART Specific 1.020 POWERCHART Clayton, POCT, U Comment: Reference Range Specific Clayton: 1.000-1.035 pH, POCT, Urine 5.5 <5.0 POWERCHART Comment: Reference Range pH: 5.0-8.0 Protein, Ur, Dip 30 (A) Negative MGDL POWERCHAR T Glucose Negative Negative MGDL POWERCHART Ketones, QL(U) 15 (A) Negative MGDL POWERCHART HXBILIRUBIN Small (A) Negative POWERCHART HXBLOOD Negative Negative POWERCHART Leukocyte Esterase Negative Negative POWERCHART HXNITRITE Negative Negative POWERCHART Urobilinogen 1.0 0.2 MGDL POWERCHART Comment: Reference Range Urobilinogen: 0.2-1.0 mg/dL HXUR WBC. Occ-3 None Seen HPF POWERCHART HXUR RBC. None Seen None Seen HPF POWERCHART Specimen (Source) Anatomical Collection Method Collection Time Re ceived Time Location / / Volume Laterality Urine, First 03/26/2016 3:03 PM Voided GREENSMAN Cooper Durand APRNNMichelleP. LAB URINE ORDERABLES Performing Organization Address City/State/ZIP Code Phon e Number POWERCHART Bacterial Culture, Aerobic, Urine (03/26/2016 3:03 PM GREENSMAN) Analysis Performed At Patho logist Time Signature Bacterial POWERCHART Culture, Aerobic, Urine HXFinal No growth POWERCHART Specimen (Source) Anatomical Collection Method Collection Time Re ceived Time Location / / Volume Laterality Urine, First 03/26/2016 3:03 PM Voided GREENSMAN Loren Durand APRN.N.P. LAB MICROBIOLOGY - GENERA L ORDERABLES Performing Organization Address City/State/ZIP Code Phon e Number POWERCHART documented in this encounter Visit Diagnoses Not on filedocumented in this encounter
--- OUTSIDE RECORDS SUMMARY | 2022-02-17 12:27 | XMS_ITS | Encounter Summary ---
:1950 [facility] Address [address] [place] [address] Care Team Providers Name Role Phone Unavailable Primary Care Provider Unavailable Encounter Details Date Type Department Care Team Description 03/26/2016 Hospital Encounter HX NO MAPPING Rhona Holder V., APR N, C.N.P. [address] [place], [place] [phone] (Wo rk) Social History Tobacco Use Types [...] daily. spray documented as of this encounter Miscellaneous Notes Miscellaneous - Conversion, Historical Provider Ser - 03/26/2016 11:59 PM BANKMAN Coding Summary-Paper Based CODING DATE: 04/04/2016 FINAL [facility] STATUS: * Discharged to Home or Self Care PAYOR: Commercial Insurance ADMIT DX: REASON FOR VISIT DX: FINAL DX: PRINCIPAL: N39.0 Urinary tract infection, site not specified SECONDARY: PROCEDURES DOCTOR NAME DATE NOTE: The code number assigned matches the documented diagnosis and / or procedure in the patient's chart. However, the narrative phrase printed from the coding software may appear abbreviated, or result in slightly different terminology. Coded By: NETO SANCHEZ Date Saved: 04/04/2016 02:55 pm Source: [facility] Document Id: [id number] documented in this encounter Plan of Treatment Upcoming Encounters Date Type Specialty Care Team Description 04/23/2022 Office Visit Cardiovascular Disease Blas Peck M.D. [address] [place] [phone] (Wo rk) documented as of this encounter Visit Diagnoses Not on filedocumented in this encounter
--- OUTSIDE RECORDS SUMMARY | 2022-02-17 12:27 | XMS_ITS | Encounter Summary ---
:1950 Author Organization [facility] Address [address] [place] [address] Care Team Providers Name Role Phone Unavailable Primary Care Provider Unavailable Encounter Details Date Type Department Care Team Description 04/21/2016 Hospital Encounter HX [facility] Thomas Powell, BUMPER STRAIGHTENER, C.N.P. [address] [place] [phone] (Wo rk) Social History Tobacco Use [...] Sign Reading Time Taken Comments Blood Pressure 136/72 04/21/2016 8:34 AM TOP INVENTORY CONTROL EXECUTIVE Pulse 78 04/21/2016 8:34 AM TOP INVENTORY CONTROL EXECUTIVE Temperature - - Respiratory Rate - - Oxygen Saturation - - Inhaled Oxygen Concentration - - Weight - - Height 172 cm (5' 7.72) 04/21/2016 8:34 AM TOP INVENTORY CONTROL EXECUTIVE Body Mass Index - - documented in [...] Progress Notes Layne Powell, BRIAN, R.N. - 04/21/2016 8:19 AM CST [id number] CHIEF COMPLAINT/REASON FOR VISIT Lower urinary tract symptoms. HISTORY OF PRESENT ILLNESS This is a pleasant 66-year-old male here today that was previously diagnosed with chronic prostatitis. He has been treated with antibiotics including, most recently, a 3-week course of Levaquin. When taking the Levaquin he felt that it made him feel unwell and just bloated. He was also taken off his Flomax. He states that he occasionally has taken a Flomax now and then, which has helped his stream, but he does not like the side effects that Flomax gives him, namely, retrograde ejaculation. He statesthat lately his stream has been difficult to start and he has pain in his perineal area. He also states that he has been having difficulty with erectile dysfunction. He is unable to achieveerections. In the past he used Viagra 100 mg oral capsule with good results. At this time he is not in a relationship but would like to refills of Viagra so that he can pick them up if he does meet someone. He states that he does ejaculate occasionally even though he does not have erections. He has been having difficulty with constipation but this is an ongoing thing and he is hoping that this will get better soon. MEDICATIONS Aspirin 81 mg oral tablet 1 tablet daily. Atorvastatin 20 mg oral tablet 1 tablet at bedtime. Atrovent 21 mcg inhalation nasal spray 2 sprays in both nostrils 3 times a day. Fluoxetine 20 mg oral tablet 2 tablets daily Fluticasone 50 mcg per inhalation nasal spray 2 sprays both nostrils daily. Lisinopril 2.5 mg oral tablet 1 tablet daily. Metformin 850 mg 1 tablet 2 times a day. Metoprolol tartrate 25 mg oral tablet 1 tablet 2 times a day. Ranitidine 150 mg oral tablet 1 tablet 2 times a day. ALLERGIES Bactrim. PAST MEDICAL/SURGICAL HISTORY Anxiety, obstructive sleep apnea, benign prostatic hypertrophy, nasal congestion, coronary artery disease, type 2 diabetes with neuropathy, hayfever, hyperlipidemia, hypertension, urinary tract infections, irritable bowel syndrome, overactive bladder, panic disorder without agoraphobia, colon polyps, possible chronic urinary retention, bladder spasms. VITAL SIGNS Temperature 36.4, heart rate 78, blood pressure 136/72. Height 172. Not a tobacco user. PHYSICAL EXAMINATION GENERAL: A well-developed, well-nourished, well-groomed 66-year-old male in no acute distress. Alert, cooperative, oriented x3. HEAD: Normal appearance. No abnormalities. NECK: Symmetrical and supple. CARDIAC: Regular rate, regular rhythm. RESPIRATORY: Respirations unlabored. Normal respiratory rate. Normal respiratory movement. ABDOMEN: Soft, nontender, nondistended. EXTREMITIES: Warm without edema or ulcerations. DIAGNOSTICS Uroflow was performed. Patient voided 82 mL over 30 seconds. Peak flow was 5.9 mL/second. Average flow was 2.7 mL/second. Postvoid residual is 0. IMPRESSION/REPORT/PLAN 1. Prostatitis. At this time he is given a prescription of doxycycline 100 mg oral tablet 1 tablet 2times a day for 21 days with a refill. He is instructed to take this medication as prescribed, that he should take this until he feels better and then take it for 3 more days. We will recheck this in approximately 2 months to see if his symptoms have improved. 2. Erectile dysfunction. He is currently not sexually active. He is wondering if masturbation is dangerous. He is encouraged that he may masturbate without issue. He is given a prescription for sildenafil 100 mg oral tablet 1 tablet prior to sexual activity. He understands that his insurance may not cover this. We did discuss the possibility of a prescription for [facility] or that he can send pursue he can mail or fax his prescriptions to other pharmacies if he would like. He will think about this as he is not currently sexually active. All of his questions have been answered today. He is in agreement with the plans we have made. We will see him again in 2 months. Layne Powell N.P./shaylee Electronically Signed By: LAYNE POWELL APRN, RN On: 04/24/2016 09:50 AM Source: [facility] MHSDOLBEYNONRADSYS Document Id: [id number] INVENTORY CONTROL EXECUTIVE documented in this encounter Nursing Notes Layne Powell APRN, R.N. - 04/21/2016 9:15 AM CST Ambulatory Patient Education The following Patient Education Materials have been given to the patient: Patient Education Materials: Ambulatory PROSTATITIS Ambulatory Prostatitis The prostate gland is located deep inside the body at the base of the bladder. Prostatitis is an inflammation of the prostate gland. This can occur with or without infection. Most cases of prostatits are chronic and do not involve bacterial infection. ?? Chronic prostatitis, tends to occur in older men. It is usually an inflammatory condition and notan infection. It can cause rectal, urethral, bladder or scrotal pain, unable to empty the bladder fully, frequent urination, and burning with urination. It may also cause pain with ejaculation and erectile dysfunction. ?? Acute prostatitis usually occurs in younger men (under 35) and is due to a bacterial infection. It can cause severe symptoms with fever, generalized muscle aching, pain in perineum (between the scrotum and anus), difficulty passing urine, pain or burning with urination, and blood or pus in the urine. A culture test may be performed on prostate fluids or discharge from the penis and will determine ifthere is a bacterial cause. Treatment is initially with antibiotics, anti-inflammatory medicine and stool softeners. Home Care: Rest at home until the fever is gone and you are feeling better. Many persons get relief with a hot sitz bath. (Partially fill a tub with 6 inches of hot water. Allow the water to run in order to keep it hot for 10-15 minutes). Drink plenty of fluids. No alcohol or caffeine until all symptoms clear. [id number] will be prescribed. Be sure to take this exactly as directed until they are all gone. Avoid constipation (which causes straining and therefore increased pain) by eating natural laxativessuch as prunes, fresh fruits and whole-grain cereals. If necessary, use a mild zhhj-lne-jwpjjlf laxative (Milk of Magnesia) for constipation. Docusate (Colace, Correctol, DSS) is a stool softener (no pr escription needed) that can be used to keep the stools soft. Do not have sex until you have finished all antibiotics and symptoms have improved. You may use acetaminophen (Tylenol) or ibuprofen (Motrin, Advil) to control pain, unless another medicine was prescribed. [NOTE: If you have chronic liver or kidney disease or ever had a stomach ulcer or GI bleeding, talk with your doctor before using these medicines.] Follow Up with your doctor, a urologist, or as advised by our staff to be sure you are responding properly to treatment. You should be seen again after finishing antibiotics to be sure the infection is completely cured. If a culture was taken, you may call for the result in 2-3 days. A culture test can ensure that you are on the correct antibiotic. Get Prompt Medical Attention if any of the following occur: ?? Fever over 100.4??F (38.0??C) after three days of treatment ?? Weakness, dizziness or fainting ?? Unable to pass urine for eight hours ?? Increasing pressure or pain in your bladder ?? Painful swelling of the testicle or scrotum ?? [id number] [place] [address]. All rights reserved. This information is not intended as a substitute for professional medical care. Always follow your healthcare professional's instructions. This document has images extracted. Please consider using [employer] for all your patient education needs. Source: [facility] POWERCHART Document Id: [id number] INVENTORY CONTROL EXECUTIVE documented in this encounter Miscellaneous Notes Miscellaneous - Layne Powell APRN, R.N. - 04/21/2016 9:15 AM TOP INVENTORY CONTROL EXECUTIVE Ambulatory Patient Summary [place] [facility] [address] [place], [place] [phone] Visit Information Name: ELIAN DAWKINS [facility] Number: [id number] Current Date: 04/21/2016 09:15:32 Physicians Attending Provider: LAYNE POWELL APRN glove sewer Provider: RONALD RUEDA MD ELIAN DAWKINS has been given the [...] a day (at bedtime) For high cholesterol. doxycycline (doxycycline hyclate 100 mg oral tablet) 1 Tablet(s), Oral, two times a day x 21 day(s) New Routed to [address] [id number] FLUoxetine (FLUoxetine 20 mg oral tablet) 2 Tablet(s), Oral, once a day (in the morning) For anxietyand depression. fluticasone nasal (fluticasone 50 mcg/inh nasal spray) 2 Ross(s), Nostrils(Both), once a day ipratropium nasal (Atrovent 21 mcg/inh nasal spray) 2 Ross(s), Nostrils(Both), three times a day asneeded for [...] For stomach. Stop Taking the Following Medications: oxybutynin (oxybutynin 5 mg/24 hours oral tablet, extended release) Medication list as of 04-21-16 09:15 Attention: If you have any medications at home that are not on this list, DO NOT take them until youcontact your provider for clarification. Give a copy of your medication list to your primary care provider. Update your medication list any time medications or doses are changed and carry your medication list at all times in case of emergency. Electronically Signed By: LAYNE POWELL APRN, RN Signed On:21-APR-2016 09:15:16 Your Allergies & Intolerances Substance Reaction Symptoms [...] Active Overactive Bladder Active Spasm Bladder Active Your Upcoming Appointments Date Time Location Provider 04/21/2016 12:30 [facility] 04/25/2016 14:00 [facility] Jesse ALEX, Ronald Attention: Contact your local Clinic if further appointment detail needed. Prostatitis The prostate gland is located deep inside the body at the base of the bladder. Prostatitis is an inflammation of the prostate gland. This can occur with or without infection. Most cases of prostatits are chronic and do not involve bacterial infection. ?? Chronic prostatitis, tends to occur in older men. It is usually an inflammatory condition and notan infection. It can cause rectal, urethral, bladder or scrotal pain, unable to empty the bladder fully, frequent urination, and burning with urination. It may also cause pain with ejaculation and erectile dysfunction. ?? Acute prostatitis usually occurs in younger men (under 35) and is due to a bacterial infection. It can cause severe symptoms with fever, generalized muscle aching, pain in perineum (between the scrotum and anus), difficulty passing urine, pain or burning with urination, and blood or pus in the urine. A culture test may be performed on prostate fluids or discharge from the penis and will determine ifthere is a bacterial cause. Treatment is initially with antibiotics, anti-inflammatory medicine and stool softeners. Home Care: Rest at home until the fever is gone and you are feeling better. Many persons get relief with a hot sitz bath. (Partially fill a tub with 6 inches of hot water. Allow the water to run in order to keep it hot for 10-15 minutes). Drink plenty of fluids. No alcohol or caffeine until all symptoms clear. Antibiotics will be prescribed. Be sure to take this exactly as directed until they are all gone. Avoid constipation (which causes straining and therefore increased pain) by eating natural laxativessuch as prunes, fresh fruits and whole-grain cereals. If necessary, use a mild hssk-oqg-nldeoac laxative (Milk of Magnesia) for constipation. Docusate (Colace, Correctol, DSS) is a stool softener (no pr escription needed) that can be used to keep the stools soft. Do not have sex until you have finished all antibiotics and symptoms have improved. You may use acetaminophen (Tylenol) or ibuprofen (Motrin, Advil) to control pain, unless another medicine was prescribed. [NOTE: If you have chronic liver or kidney disease or ever had a stomach ulcer or GI bleeding, talk with your doctor before using these medicines.] Follow Up with your doctor, a urologist, or as advised by our staff to be sure you are responding properly to treatment. You should be seen again after finishing antibiotics to be sure the infection is completely cured. If a culture was taken, you may call for the result in 2-3 days. A culture test can ensure that you are on the correct antibiotic. Get Prompt Medical Attention if any of the following occur: ?? Fever over 100.4?F (38.0?C) after three days of treatment ?? Weakness, dizziness or fainting ?? Unable to pass urine for eight hours ?? Increasing pressure or pain in your bladder ?? Painful swelling of the testicle or scrotum ?? [id number] Dinesh Avalos, [address] [place] [address], [place] [address]. All rights reserved. This information is not [...] if you dont have one. Go to [email or web address] and click on Create Your Account. Then, follow the directions to complete the online form. Youll be asked for your [facility] number which you can find at the top of this document. Your Goals/Additional instructions: This document has images extracted. Please consider using [employer] for all your patient education needs. Source: [facility] POWERCHART Document Id: [id number] INVENTORY CONTROL EXECUTIVE Miscellaneous - Layne Powell APRN, R.N. - 04/21/2016 9:15 AM TOP INVENTORY CONTROL EXECUTIVE Ambulatory Discharge Medication List [address] [phone] Visit Information Name: VERNA ELIAN STEPHENST [facility] Number: [id number] Current Date: 04/21/2016 09:15:30 Attending Provider: LAYNE POWELL APRN, glove sewer Provider: RONALD RUEDA MD ELIAN DAWKINS has been given the [...] a day (at bedtime) For high cholesterol. doxycycline (doxycycline hyclate 100 mg oral tablet) 1 Tablet(s), Oral, two times a day x 21 day(s) [place] [address] FLUoxetine (FLUoxetine 20 mg oral tablet) 2 Tablet(s), Oral, once a day (in the morning) For anxietyand depression. fluticasone nasal (fluticasone 50 mcg/inh nasal spray) 2 Ross(s), Nostrils(Both), once a day ipratropium nasal (Atrovent 21 mcg/inh nasal spray) 2 Ross(s), Nostrils(Both), three times a day asneeded for [...] For stomach. Stop Taking the Following Medications: oxybutynin (oxybutynin 5 mg/24 hours oral tablet, extended release) Medication list as of 04-21-16 09:15 Attention: If you have any medications at home that are not on this list, DO NOT take them until youcontact your provider for clarification. Give a copy of your medication list to your primary care provider. Update your medication list any time medications or doses are changed and carry your medication list at all times in case of emergency. Electronically Signed By: LAYNE POWELL APRN RN Signed On:21-APR-2016 09:15:16 Additional Information: Source: [facility] POWERCHART Document Id: [id number] INVENTORY CONTROL EXECUTIVE Miscellaneous - Sowmya Jiménez L.P.N. - 04/21/2016 8:34 AM CST Adult Insurance Verification Representative Intake/History Adult Insurance Verification Representative Intake/History Entered On: 04/21/2016 8:41 TOP INVENTORY CONTROL EXECUTIVE Performed On: 04/21/2016 8:34 TOP INVENTORY CONTROL EXECUTIVE by SOWMYA JIMÉNEZ LPN Intake Chief Complaint : recheck medications-patient states oxybutynin is not working very well and stoppedtaking it over a year ago Temperature Core : 36.4 DegC(Converted to: 97.5 DegF) (LOW) Peripheral Pulse Rate : 78 /min Systolic Blood Pressure : 136 mmHg Diastolic Blood Pressure : 72 mmHg NIBP Mean : 93 mmHg BP Location : Left upper extremity Blood Pressure Cuff Size : Large Height : 172 cm(Converted to: 5 ft 8 inch(es), 68 inch(es)) SOWMYA JIMÉNEZ TAPE KELLER OPERATOR - 04/21/2016 8:34 TOP INVENTORY CONTROL EXECUTIVE General Info Information Given By : Patient Preferred Communication Mode : Verbal Languages : [place] Is Patient Female and 13-50 no hysterectomy : No SOWMYA JIMÉNEZ LPN - 04/21/2016 8:34 TOP INVENTORY CONTROL EXECUTIVE Subjective Pain Symptoms : No SOWMYA JIMÉNEZ LPN - 04/21/2016 8:34 TOP INVENTORY CONTROL EXECUTIVE Dependent Habits Exposure to Tobacco Smoke : Other: Never Smoking Status : Never smoker Tobacco 2A : No Tobacco Use/Currently Using : No Tobacco Use/Last 30 Days : No Tobacco Use/Last 12 months : No SOWMYA JIMÉNEZ LPN - 04/21/2016 8:34 TOP INVENTORY CONTROL EXECUTIVE Source: [facility] POWERCHART Document Id: [id number] TOP INVENTORY CONTROL EXECUTIVE!25 INVENTORY CONTROL EXECUTIVE documented in this encounter Plan of Treatment Upcoming Encounters Date Type Specialty Care Team Description 04/23/2022 Office Visit Cardiovascular Disease Blas Peck M.D. [address] [place] [address] [place] [phone] (Wo rk) documented as of this encounter Visit Diagnoses Not on filedocumented in this encounter
--- OUTSIDE RECORDS SUMMARY | 2022-02-17 12:27 | XMS_ITS | Encounter Summary ---
:1950 Author Organization [facility] Address [address] [place] [address] Care Team Providers Name Role Phone Unavailable Primary Care Provider Unavailable Encounter Details Date Type Department Care Team Description 02/27/2016 Hospital Encounter [facility]X [facility] Efraín Hamilton M.D. [address] [place] [address] [phone] (Wo rk) Social History Tobacco [...] Sign Reading Time Taken Comments Blood Pressure 117/69 02/27/2016 12:07 PM DERRICK ENGINEER Pulse 70 02/27/2016 12:07 PM DERRICK ENGINEER Temperature - - Respiratory Rate - - Oxygen Saturation - - Inhaled Oxygen Concentration - - Weight - - Height 172 cm (5' 7.72) 02/27/2016 12:07 PM DERRICK ENGINEER Body Mass Index - - documented in this encounter Medications at Time of Discharge Medication Sig Dispensed Refills Start Date End Date aspirin 81 mg chewable Chew 1 tablet daily. 0 07/09/2020 tablet blood-glucose meter [facility] [place] Dispense glucose 0 05/2308/11/2018 meter, test strips and lancets covered by the patient insurance. Test 2 times per day. documented as of this encounter Consult Notes Adarsh Hamilton M.D. - 02/27/2016 11:41 AM CST [id number] CHIEF COMPLAINT/REASON FOR VISIT Nasal congestion. HISTORY OF PRESENT ILLNESS Patient is a 65-year-old male seen in consultation at the request of Dr. Molina, here for evaluation of nasal problems. He has had problems for the last 6 months. He notes nasal congestion with obstruction as well as postnasal drainage and anterior rhinitis symptoms. No sinus pain or pressure in the midface. No problems with sense of smell. No previous nasal, sinus surgery or trauma. He has tried Atrovent and Flonase intranasal steroid spray, however this has not helped. He has a history of allergic rhinitis and hayfever. He notes a foggy feeling in his head. MEDICATIONS Reviewed in the ambulatory summary with patient today in the EMR. ALLERGIES Reviewed in the ambulatory summary with patient today in the EMR. PAST MEDICAL/SURGICAL HISTORY Reviewed in the ambulatory summary with patient today in the EMR. SOCIAL HISTORY He denies tobacco use. PHYSICAL EXAMINATION VITAL SIGNS: Blood pressure 117/69, pulse 70, temp 37 degrees. GENERAL APPEARANCE: Healthy-appearing adult male. Alert and oriented, no acute distress. HEENT: Skin of the head and neck is normal. Head is normocephalic. Vocal quality normal. Respirations unlabored. Ears normal. Nose: External nose is straight. Intranasal exam reveals septal point on the right side in area 1, the left side in area 2, 3, and 4. Hypertrophy of the right inferior turbinate. No polyps or drainage noted. Oral cavity is normal. Oropharynx is normal. Indirect nasopharyngoscopy is normal without drainage. Indirect laryngoscopy reveals normal larynx and hypopharynx. NECK: Palpation of the neck is normal without palpable adenopathy or masses. No palpable parotid or thyroid abnormalities. IMPRESSION/REPORT/PLAN 1. Chronic rhinitis. 2. Chronic sinusitis. 3. Septal deformity. 4. Turbinate hypertrophy. 5. Postnasal drainage. 6. Nasal obstruction. PLAN: Discussed findings with patient. Discussed diagnosis. Will evaluate further with coronal CT scan of the nose and sinuses. Discussed surgical options for improvement of the nasal airway with nasalseptoplasty and turbinate reduction. Discussed possible endoscopic sinus surgery. We will see again in followup with the scan. Adarsh Hamilton M.D./shaylee cc: Ronald Molina M.D. [facility] in [address] [address] Electronically Signed By: ADARSH HAMILTON MD On: 03/13/2016 04:21 PM Source: [facility] MHSDOLBEYNONRADSYS Document Id: [id number] ICK ENGINEER documented in this encounter Miscellaneous Notes Miscellaneous - Monica Egan L.PMichelleN. - 02/27/2016 1:[address] sinus Document Contains Addenda Addendum by JUANI MAGDALENO LPN on March 03, 2016 13:06:21 DERRICK ENGINEER Noted. Addendum by DES GRAHAM on March 03, 2016 11:18:40 DERRICK ENGINEER From: DES GRAHAM ([facility] Nuclear Physics Teacher/Radiology Outside [facility]) To: Ears Nose Throat/Audiology Nurse; Sent: 03/03/2016 11:18:40 DERRICK ENGINEER Subject: RE: FBO CT sinus No auth needed, patient has Medica From: MONICA EGAN LPN ( Ears Nose Throat/Audiology Nurse) To: [facility] Nuclear Physics Teacher/Radiology Outside [facility]; Sent: 02/27/2016 13:19:08 DERRICK ENGINEER Subject: FBO CT sinus Patient Referred to Provider or Facility:[facility] Ordering Provider: Baljinder Hamilton Appointment Date (if known): _to be scheduled once preaut check complete Imaging Service Ordered: (list CPT code or body part to be scanned) _CT sinus _ W/ Contrast _x W/O Contrast _ W/O Contrast followed by with _ _ CT/CTA _ MRI _ MRA _ PET _ Other: (list): _ Diagnosis (CPT code if Known):sinusitis Injury Related _ Yes _ No If yes, date and type of injury: _ Source: [facility] POWERCHART Document Id: [id number] Electronically signed by Conversion, [facility] Superintendent Laundry [id number] at 09/07/2016 12:07 AM CDT Kami - Adarsh Hamilton M.D. - 02/27/2016 12:30 PM CST Ambulatory Patient Summary [address] [id number] Visit Information Name: ELIAN DAWKINS [facility] Number: [id number] Current Date: 02/27/2016 12:30:49 Physicians Attending Provider: ADARSH HAMILTON MD Primary Care Provider: RONALD MOLINA MD [...] once a day For anxiety and depression. *fluticasone nasal (fluticasone 50 mcg/inh nasal spray) 2 [place](s), Nostrils(Both), once a day in each nostril / For nasal congestion. *ipratropium nasal (Atrovent 21 mcg/inh nasal spray) 2 [place](s), Nostrils(Both), three times a day as needed for Nasal congestion in each nostril / [...] cap, Oral, once a day For prostate. *tolterodine (tolterodine 2 mg oral tablet) 1 Tablet(s), Oral, two times a day For urination. * You have let us know that you are not taking this medication as listed. Please talk with your primary care provider or the health care provider who prescribed the medication as soon as possible. 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 Go to [email or web address] and click on Create Your Account. Then, follow the directions to complete the online form. Youll be asked for your [facility] number which you can find at the top of this document. Your Goals/Additional instructions: Source: [facility] POWERCHART Document Id: [id number] ICK ENGINEER Miscellaneous - Adarsh Hamilton M.D. - 02/27/2016 12:30 PM CST Ambulatory Discharge Medication List [address] [id number] Visit Information Name: ELIAN DAWKINS DAVID [facility] Number: [id number] Current Date: 02/27/2016 12:30:48 Attending Provider: ADARSH HAMILTON MD Primary Care Provider: RONALD MOLINA MD [...] once a day For anxiety and depression. *fluticasone nasal (fluticasone 50 mcg/inh nasal spray) 2 [place]port(s), Nostrils(Both), once a day in each nostril / For nasal congestion. *ipratropium nasal (Atrovent 21 mcg/inh nasal spray) 2 [place]port(s), Nostrils(Both), three times a day as needed for Nasal congestion in each nostril / [...] cap, Oral, once a day For prostate. *tolterodine (tolterodine 2 mg oral tablet) 1 Tablet(s), Oral, two times a day For urination. * You have let us know that you are not taking this medication as listed. Please talk with your primary care provider or the health care provider who prescribed the medication as soon as possible. Stop Taking the Following Medications: Medication list as of 02-27-16 12:30 Attention: If you have any medications at [...] Electronically Signed By: ADARSH HAMILTON MD Signed On:27-FEB-2016 12:30:46 Additional Information: Source: [facility] POWERCHART Document Id: [id number] ICK ENGINEER Miscellaneous - Monica Egan L.P.N. - 02/27/2016 12:07 PM CST Adult Tooth Cutter Spur Intake/History Adult Tooth Cutter Spur Intake/History Entered On: 02/27/2016 12:12 DERRICK ENGINEER Performed On: 02/27/2016 12:07 DERRICK ENGINEER by MONICA EGAN LPN Intake Chief Complaint : Referred by Dr. Molina for nasal congestion and PND. Onset of Symptoms : all summer long Temperature Core : 37.0 DegC(Converted to: 98.6 DegF) Peripheral Pulse Rate : 70 /min Systolic Blood Pressure : 117 mmHg Diastolic Blood Pressure : 69 mmHg NIBP Mean : 85 mmHg BP Location : Left upper extremity Blood Pressure Cuff Size : Regular Height : 172 cm(Converted to: 5 ft 8 inch(es), 68 inch(es)) MONICA EAGN LPN - 02/27/2016 12:07 DERRICK ENGINEER General Info Information Given By : Patient Languages : Irish Is Patient Female and 13-50 no hysterectomy : No MONICA EGAN LPN - 02/27/2016 12:07 DERRICK ENGINEER Subjective Pain Symptoms : No MONICA EGAN LPN - 02/27/2016 12:07 DERRICK ENGINEER Dependent Habits Exposure to Tobacco Smoke : Other: Never Smoking Status : Never smoker Tobacco 2A : No Tobacco Use/Currently Using : No Tobacco Use/Last 30 Days : No Tobacco Use/Last 12 months : No Alcohol Use : No MONICA EGAN LPN - 02/27/2016 12:07 DERRICK ENGINEER Source: [facility] POWERCHART Document Id: [id number] DERRICK ENGINEER!26 ICK ENGINEER documented in this encounter Plan of Treatment Upcoming Encounters Date Type Specialty Care Team Description 04/23/2022 Office Visit Cardiovascular Disease Blas Peck M.D. [address] [place] [address] [phone] (Wo rk) documented as of this encounter Visit Diagnoses Not on filedocumented in this encounter
--- OUTSIDE RECORDS SUMMARY | 2022-02-17 12:27 | XMS_ITS | Encounter Summary ---
:1950 Author Organization [facility] Address [address] [place] [address] Care Team Providers Name Role Phone Unavailable Primary Care Provider Unavailable Encounter Details Date Type Department Care Team Description 01/25/2016 Hospital Encounter HX [facility] Cristobal Sage, URGENTLEXI PMichelleAJavierC. [address], [facility] [address] [place], [place] [address] (Wo rk) Social History Tobacco Use Types [...] Sign Reading Time Taken Comments Blood Pressure 111/71 01/25/2016 3:29 PM CDT Pulse 80 01/25/2016 3:29 PM CDT Temperature - - Respiratory Rate 18 01/25/2016 3:29 PM CDT Oxygen Saturation - - Inhaled Oxygen Concentration - - Weight 99.2 kg (218 lb 11.1 oz) 01/25/2016 3:29 PM CDT Height 172 cm (5' 7.72) 01/25/2016 3:29 PM CDT Body Mass Index 33.53 01/25/2016 3:29 PM CDT documented in this encounter Medications at Time of Discharge Medication Sig Dispensed Refills Start Date End Date aspirin 81 mg chewable Chew 1 tablet daily. 0 07/09/2020 tablet blood-glucose meter [facility] [place] Dispense glucose 0 05/2308/11/2018 meter, test strips and lancets covered by the patient insurance. Test 2 times per day. documented as of this encounter Progress Notes Cristobal Rich P.A.-C. - 01/25/2016 2:53 PM CDT [id number] CHIEF COMPLAINT/REASON FOR VISIT Having blood sugar readings of 364 and sinus drainage. HISTORY OF PRESENT ILLNESS This is a 65-year-old male. He has had sinus congestion worsening for 2 weeks and also postnasal drip. No fevers. No headaches. He notes this morning he read his blood sugar at 364. That is after he ate breakfast. He does not usually check his blood sugars daily. He noted he had some high readings in the 170s to 180s about 2 weeks ago. He is type 2 diabetic. He has been feeling more run down lately. VITAL SIGNS Temperature 37.1, heart rate 80, respiratory rate 18, blood pressure 111/71. PHYSICAL EXAMINATION GENERAL: Alert and oriented x3. No distress. EENT: Eyes anicteric, noninjected. No discharge. Ears: Bilateral tympanic membranes were pearly cope. No loss of landmarks, erythema, or bulging. No mucoid drainage is noted. Oropharynx: Uvula midline.Tonsillitis not seen. Postnasal drip at the back of the throat. NECK: No cervical lymphadenopathy note. LUNGS: Bilateral breath sounds. Clear to auscultation. No wheezes, rhonchi, or rales. HEART: Regular rate and rhythm. ALLERGIES Bactrim. DIAGNOSTICS Glucose 176. IMPRESSION/REPORT/PLAN 1. Acute sinusitis. Treat the patient with amoxicillin 2 times a day for 10 days for his sinus infection. Oral decongestants were discussed. Pushing fluids. 2. Diabetes type 2. The patient's glucose is elevated, higher than it normally is, but is not at dangerous levels. I discussed having him follow up with his primary doctor regarding elevated blood sugars, but at this point, I suspect it is his sinus infection that is causing his glucoses to rise. I recommended having himcheck daily blood glucoses. Cristobal Rich P.A.-C./shaylee Electronically Signed By: CRISTOBAL RICH PA-C On: 01/29/2016 11:55 AM Source: [facility] MHSDOLBEYNONRADSYS Document Id: [id number] documented in this encounter Miscellaneous Notes Miscellaneous - Cristobal Rich P.A.-C. - 01/25/2016 4:29 PM CDT Ambulatory Patient Summary [facility] [address] [place], [place] [phone] Visit Information Name: ELIAN DAWKINS [facility] Number: [id number] Current Date: 01/25/2016 16:29:41 Physicians Attending Provider: CRISTOBAL RICH PA-C Primary Care Provider: RONALD RUEDA MD ELIAN DAWKINS has [...] Take Indications/Special Instructions/Comments/Notes for Patient Medication Changes/Routing amoxicillin (amoxicillin 875 mg oral tablet) 1 Tablet(s), Oral, two times a day x 10 day(s) New Routed to [address] [id number] aspirin (aspirin 81 mg oral tablet) 1 Tablet(s), Oral, once a day atorvastatin (atorvastatin 20 mg oral tablet) 1 Tablet(s), Oral, once a day (at bedtime) FLUoxetine (FLUoxetine 20 mg oral tablet) 2 Tablet(s), Oral, once a day fluticasone nasal (fluticasone 50 mcg/inh nasal spray) 2 [place](s), Nostrils(Both), once a day in each nostril hydrOXYzine (hydrOXYzine) 25 mg, Oral, as needed for Anxiety take one to two capsules by mouth every8 hours as needed for anxiety ipratropium nasal (Atrovent 21 mcg/inh nasal spray) 2 [place](s), Nostrils(Both), three times a day asneeded for Nasal congestion in each nostril lisinopril (lisinopril 5 mg oral tablet) 1 Tablet(s), Oral, once a day metFORMIN (metFORMIN 850 mg oral tablet) 1 Tablet(s), Oral, once a day (in the morning) metoprolol (metoprolol tartrate 25 mg oral tablet) 1 Tablet(s), Oral, two times a day tamsulosin (tamsulosin 0.4 mg oral capsule) 2 cap, Oral, once a day tolterodine (tolterodine 2 mg oral tablet) 1 Tablet(s), Oral, two times a day Stop Taking the Following Medications: Medication list as of 01-25-16 16:29 Attention: If you have any medications at home that are not on this list, DO NOT take them until youcontact your provider for clarification. Give a copy of your medication list to your primary care provider. Update your medication list any time medications or doses are changed and carry your medication list at all times in case of emergency. Electronically Signed By: CRISTOBAL RICH PA-C Signed On:25-JAN-2016 16:29:38 Your Allergies & Intolerances Substance Reaction Symptoms [...] Active Apnea Sleep Obstructive (ОЛЬГА) ??? Active Your Upcoming Appointments Date Time Location Provider 02/14/2016 13:45 [facility] Jesse ALEX, Ronald 02/18/2016 10:15 [facility] Urology Beto Mcdermott MD Attention: Contact your local Clinic if [...] if you dont have one. Go to [email or web address] and click on Create Your Account. Then, follow the directions to complete the online form. Youll be asked for your [facility] number which you can find at the top of this document. Your Goals/Additional instructions: Source: [facility] POWERCHART Document Id: [id number] Miscellaneous - Cristobal Rich P.A.-C. - 01/25/2016 4:29 PM CDT Ambulatory Discharge Medication List [address] [id number] Visit Information Name: VERNA ELIAN STEPHENST [facility] Number: [id number] Current Date: 01/25/2016 16:29:40 Attending Provider: CRISTOBAL RICH PA-C Primary Care Provider: RONALD RUEDA MD VERNA ELIAN HERNANDEZ has been given the following list of medications: Your Medications It is important to take your medications as directed. Use a pill box or chart to help remind you to take your medications. Please let your doctor or nurse know if you have problems taking your medications. Medication/Strength How to Take Indications/Special Instructions/Comments/Notes for Patient Medication Changes/Routing amoxicillin (amoxicillin 875 mg oral tablet) 1 Tablet(s), Oral, two times a day x 10 day(s) New Routed to [address] [address] aspirin (aspirin 81 mg oral tablet) 1 Tablet(s), Oral, once a day atorvastatin (atorvastatin 20 mg oral tablet) 1 Tablet(s), Oral, once a day (at bedtime) FLUoxetine (FLUoxetine 20 mg oral tablet) 2 Tablet(s), Oral, once a day fluticasone nasal (fluticasone 50 mcg/inh nasal spray) 2 [place](s), Nostrils(Both), once a day in each nostril hydrOXYzine (hydrOXYzine) 25 mg, Oral, as needed for Anxiety take one to two capsules by mouth every8 hours as needed for anxiety ipratropium nasal (Atrovent 21 mcg/inh nasal spray) 2 [place](s), Nostrils(Both), three times a day asneeded for Nasal congestion in each nostril lisinopril (lisinopril 5 mg oral tablet) 1 Tablet(s), Oral, once a day metFORMIN (metFORMIN 850 mg oral tablet) 1 Tablet(s), Oral, once a day (in the morning) metoprolol (metoprolol tartrate 25 mg oral tablet) 1 Tablet(s), Oral, two times a day tamsulosin (tamsulosin 0.4 mg oral capsule) 2 cap, Oral, once a day tolterodine (tolterodine 2 mg oral tablet) 1 Tablet(s), Oral, two times a day Stop Taking the Following Medications: Medication list as of 01-25-16 16:29 Attention: If you have any medications at home that are not on this list, DO NOT take them until youcontact your provider for clarification. Give a copy of your medication list to your primary care provider. Update your medication list any time medications or doses are changed and carry your medication list at all times in case of emergency. Electronically Signed By: CRISTOBAL RICH PA-C Signed On:25-JAN-2016 16:29:38 Additional Information: Source: [facility] POWERCHART Document Id: [id number] Miscellaneous - Cecilia Garcia L.P.N. - 01/25/2016 3:29 PM CDT Adult Credit Risk Associate Intake/History Adult Credit Risk Associate Intake/History Entered On: 01/25/2016 15:32 CDT Performed On: 01/25/2016 15:29 CDT by CECILIA GARCIA LPN Intake Chief Complaint : Pt has been having having blood sugar reading at 364. PT has some sinus drainage also Onset of Symptoms : x today-high bs Temperature Oral : 37.1 DegC(Converted to: 98.8 DegF) Peripheral Pulse Rate : 80 /min Respiratory Rate : 18 /min Heart Rhythm : Regular Systolic Blood Pressure : 111 mmHg Diastolic Blood Pressure : 71 mmHg NIBP Mean : 84 mmHg BP Location : Right upper extremity Blood Pressure Cuff Size : Regular Height : 172 cm(Converted to: 5 ft 8 inch(es), 68 inch(es)) Actual Weight : 99.2 kg(Converted to: 218 lb 11 oz) Dosing Weight Clinic : 99.2 kg Clinic BSA : 2.18 Body Mass Index : 33.53 kg/m2 CECILIA GARCIA [facility] - 01/25/2016 15:29 CDT General Info Information Given By : Patient Preferred Communication Mode : Verbal Languages : Georgian Is Patient Female and 13-50 no hysterectomy : No CECILIA GARCIA BOAT TENDER - 01/25/2016 15:29 CDT Subjective Pain Symptoms : CECILIA Chong LPN - 01/25/2016 15:29 CDT Dependent Habits Exposure to Tobacco Smoke : Other: Never Smoking Status : Never smoker Tobacco 2A : No Tobacco Use/Currently Using : No Tobacco Use/Last 30 Days : No Tobacco Use/Last 12 months : CECILIA Chong BOAT TENDER - 01/25/2016 15:29 CDT Source: [facility] Document Id: [id number] CDT!32 documented in this encounter Plan of Treatment Upcoming Encounters Date Type Specialty Care Team Description 04/23/2022 Office Visit Cardiovascular Disease Blas Peck M.D. [address] [place] [address], [place] [phone] (Wo rk) documented as of this encounter Procedures Procedure Name Priority Date/Time Associated Diagnosis Comme nts GLUCOSE POCT, B Routine 01/25/2016 4:22 PM Result s for this CDT procedure are i n the results section. documented in this encounter Results (ABNORMAL) Glucose, POCT (01/25/2016 4:22 PM CDT) P athologist Signature Glucose, POCT, 176 (H) 70 - 140 POWERCHART B MGDL Comment: Meter Cleaned Analyzed By [id number] Performed at [facility] [address] [address] Specimen Anatomical Collection Method Collection Time Receive d Time (Source) Location / / Volume Laterality Blood 01/25/2016 4:22 PM 6 4:22 CDT PM CDT Cristobal Rich P.A.-C. LAB POCT ORDERABLES-MANUAL Performing Organization Address City/State/ZIP Code Phon e Number POWERCHART documented in this encounter Visit Diagnoses Not on filedocumented in this encounter
--- OUTSIDE RECORDS SUMMARY | 2022-02-17 12:27 | XMS_ITS | Encounter Summary ---
:1950 Author Organization [facility] Address [address] [place] [address] Care Team Providers Name Role Phone Unavailable Primary Care Provider Unavailable Encounter Details Date Type Department Care Team Description 02/14/2016 Hospital Encounter HX [facility] Ronald Leong M.D. [address] [id number] [phone] Social History Tobacco Use Types Packs/Day [...] Sign Reading Time Taken Comments Blood Pressure 114/62 02/14/2016 1:23 PM CDT Pulse 70 02/14/2016 1:23 PM CDT Temperature - - Respiratory Rate 16 02/14/2016 1:23 PM CDT Oxygen Saturation - - Inhaled Oxygen Concentration - - Weight 99.6 kg (219 lb 11 oz) 02/14/2016 1:23 PM CDT Height 172 cm (5' 7.72) 02/14/2016 1:23 PM CDT Body Mass Index 33.68 02/14/2016 1:23 PM CDT documented in this encounter Medications at Time of Discharge Medication Sig Dispensed Refills Start Date End Date aspirin 81 mg chewable Chew 1 tablet daily. 0 07/09/2020 tablet blood-glucose meter [facility] Dispense glucose 0 02/10 /2016 08/11/2018 meter, test strips and lancets covered by the patient insurance. Test 2 times per day. documented as of this encounter Progress Notes Ronald Molina M.D. - 02/14/2016 1:14 PM CDT [id number] CHIEF COMPLAINT/REASON FOR VISIT Followup on chronic medical problems. HISTORY OF PRESENT ILLNESS Elian is a 65-year-old male who presents to the clinic today for a one month followup from 01/17/2016. He has been feeling lousy. He has pain in his groin and lower abdomen area every day. He has difficulty urinating and notices a strong odor. He has strong odor for six months but has increased recently. He does have dysuria sometimes after holding his urine for too long. His bowel movements have been soft. He has appointment with urology next week. He mentioned that he will occasionally have itchiness in his groin. At his last visit, we referred him to ENT. He did not make the appointment because he was having phone issues. He continues to have nasal congestion, postnasal drip, sneezing, and itchy/watery eyes. Hehas been using Atrovent 2-3 times a day without much improvement in symptoms. He would like to reschedule ENT appointment. His head feels foggy and feels like he is going to fall. Patient has diabetes mellitus type 2. He has early diabetic retinopathy per eye exam on at [facility] on 01/24/2016. He checks his blood sugar daily in the morning. It was 227 after eating this morning and 144 yesterday morning before eating. His blood sugars have been ranging from 129-364. He saw Cristobal Barnes PA-C in [place] on 01/25/2016 because of blood sugar of 364 and sinus drainage. Hewas treated with Amoxicillin for 10 days for acute sinusitis. He feels that Hydroxyzine makes him sleepy and does not help. Per the patient, he took Paxil and Xanax in the past. He has history of depression and anxiety. He had colonoscopy on 07/27/2015, performed by Dr. Grant Li at [facility]. He had 4polyps removed. Need to repeat in 3 years. He does have constipation and takes stool softener, whichseems to mildly help. I reviewed and updated his medication list. We discussed potential side effects. There are no additional questions, concerns, or complaints. MEDICATIONS Aspirin 81 mg by mouth daily. Atorvastatin 20 mg by mouth at bedtime. Fluoxetine 40 mg by mouth daily. Fluticasone 50 mcg inhalation powder, 1 spray both nostrils daily. Atrovent 21 mcg/inh nasal spray 2 sprays both nostrils three times a day as needed. Lisinopril 5 mg by mouth daily. Metformin 850 mg by mouth daily in the morning. Metoprolol tartrate 25 mg by mouth twice a day. Ranitidine 150 mg by mouth twice a day. Tamsulosin 0.8 mg by mouth daily. Tolterodine 2 mg by mouth twice a day. ALLERGIES Bactrim causing swelling. SYSTEMS REVIEW Please see HPI for pertinent positives, otherwise rest of ROS negative. PAST MEDICAL/SURGICAL HISTORY Reviewed and updated as per the EHR on 02/14/2016. PREVENTIVE SERVICES Reviewed and updated as per the EHR on 02/14/2016. SOCIAL HISTORY Reviewed and updated as per the EHR on 02/14/2016. FAMILY HISTORY Reviewed and updated as per the EHR on 02/14/2016. VITAL SIGNS HEIGHT: 172 cm. WEIGHT: 99.65 kg. BMI: 33.68 kg/m2. TEMP: 37.6 Deg C. PULSE: 70 /min. RESP: 16 /min. SYSTOLIC: 114 mmHg. DIASTOLIC: 62 mmHg. PHYSICAL EXAMINATION GENERAL: Patient is sitting. No distress. Able to talk without interruption. HEAD: No facial rash, asymmetry, or sinus tenderness. EYES: PERRLA. EOMI. No pallor, icterus, or conjunctivitis. ENT: No nasal congestion, discharge, or bleeding. There is no ear infection or discharge. No mastoidtenderness. Tongue is moist and midline. No oral lesions. LYMPH NODES: No cervical, supraclavicular, inguinal, or femoral lymphadenopathy. HEART: No carotid bruit. No JVD. Regular rhythm. There is no S3, gallop, murmur, or thrill. LUNGS: Normal respiratory effort. Clear to auscultation. Normal percussion. ABDOMEN: Moves with respiration. Bowel sounds present. Soft. No rebound tenderness, guarding, or rigidity. No organomegaly. There is dullness below umbilicus, could be due to urinary bladder distention. GENITALIA: No urethral discharge. Normal testicles. No hydrocele or hernia. SPINE: No scoliosis or kyphosis. No spinous tenderness or mass. No CVA tenderness. EXTREMITIES: No clubbing, cyanosis, edema, infection, or calf tenderness. IMPRESSION/REPORT/PLAN 1. BPH with obstruction and dysuria. He continues to have symptoms of odorous urine. Upon exam, there is dullness below the umbilicus. He may have bladder distention due to possible chronic urinary retention. We will check UA with microscopic and urine culture today. He will continue Tolterodine and Ta msulosin. He needs to follow with urology on 02/18/2016. 2. Allergic rhinitis with hay fever and nasal congestion. Patient will continue Fluticasone nasal spray daily and Atrovent as needed. We will refer him again to ENT for evaluation. 3. Constipation with history of tubular adenomas colon polyps. It is resolved. He needs to make surefiber intake is adequate and drink enough water. Need to repeat screening colonoscopy after 07/27/2018. 4. Left groin pain. It is most likely due to urinary retention. There is no acute abdomen clinically. 5. Diabetes mellitus type 2 with neuropathy. It is not controlled. Hemoglobin A1c was 7.9% on 01/03/2016. We will increase Metformin to 850 mg twice a day with meals. He was advised to continue currentADA diet and regular exercise. Need to monitor blood sugar daily. Self-management goals of diabetes mellitus were reviewed. Need to check hemoglobin A1c again in 2 months. 6. Benign essential hypertension. Blood pressure is controlled. He is stable from a cardiac standpoint. Need to continue sodium controlled diet and current medication. Blood pressure goal is less than 140/90 mmHg. Need to continue cardiovascular risk factors modification. 7. Anxiety. We will stop Hydroxyzine, which doesn't help. He was advised to take Fluoxetine only. Ifhe has anxiety, he needs to see psychiatrist. The patient will return to the clinic in 2 months for followup with following tests prior to appointment: ALT, AST, BMP, CK, and Hemoglobin A1c. This document serves as a record of services personally performed by Dr. Ronald Molina. It was created on their behalf by Balaji Larios, a trained medical coding instructor. The creation of this record is based on the scribe's personal observations and the provider's statements to them. This document has been checked and approved by the attending provider. Ronald Molina M.D./melissa Electronically Signed By: RONALD MOLINA MD On: 02/17/2016 03:02 PM Modified by and Electronically Signed by: RONALD MOLINA MD On: 02/17/2016 03:02 PM Source: [facility] MHSDOLBEYNONRADSYS Document Id: [id number] MITER documented in this encounter Nursing Notes Ronald Molina M.D. - 02/14/2016 2:51 PM CDT Ambulatory Patient Education The following Patient Education Materials have been given to the patient: Patient Education Materials: Source: [facility] POWERCHART Document Id: [id number] documented in this encounter Miscellaneous Notes Miscellaneous - Gin Bui, RMichelleN. - 03/17/2016 4:47 PM CST *Medication Refill Msg Document Contains Addenda Addendum by RONALD MOLINA MD on March 18, 2016 17:40:44 DYNAMITER From: RONALD MOLINA MD To: GIN BUI RN; Cc: RENETTA Molina Nurse; Sent: 03/18/2016 17:40:44 DYNAMITER Subject: RE: *Medication Refill Msg Actions: Notify patient- refer to General Message, Notify patient of Future Order Please see below for new Rx. Addendum by RONALD MOLINA MD on March 18, 2016 17:40:25 DYNAMITER Submitted: Order:FLUoxetine (FLUoxetine 20 mg oral tablet) 2 tab(s) PO Daily AM Qty: 200 tab(s) Refills: 11 Substitutions Allowed Route To Pharmacy - [facility] 075 For anxiety and depression. Signed by RONALD MOLINA MD Documented Discontinue:FLUoxetine (FLUoxetine 20 mg oral tablet) Signed by RONALD MOLINA MD 03/18/2016 17:40:09 From: GIN BUI RN To: RONALD MOLINA MD; Sent: 03/17/2016 16:47:08 DYNAMITER Subject: *Medication Refill Msg Caller is: ( ) Patient ( ) Mother ( ) Father ( ) Spouse ( ) Daughter ( ) Son ( ) Pharmacy ( ) Other: Provider: [facility] Name of Medications Needing Refill: fluoxetine 20mg cap - take two caps po once daily in the morning Last Refill Date:03-03-16 #90 written by deric tidwell. 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 - 02/17/2016 9:35 AM CST Negative urine culture Document Contains Addenda Addendum by KIKE REEDER LPN on February 18, 2016 14:47:16 DYNAMITER Patient notified of results. Addendum by LEXUS BURTON on February 18, 2016 12:05:57 DYNAMITER patient returning call , please call back Addendum by KIKE REEDER LPN on February 18, 2016 09:42:08 DYNAMITER Left message for patient to return my call. From: RONALD MOLINA MD [facility]; Sent: 02/17/2016 09:35:13 DYNAMITER Show up: 02/17/2016 08:35:00 DYNAMITER Subject: Negative urine culture Actions: Notify patient of results Please call. Urine culture is negative. Source: [facility] POWERCHART Document Id: [id number] Electronically signed by Lukas [facility] Learning Manager [id number] at 09/07/2016 8:17 AM CDT Miscellaneous - Ronald Molina M.D. - 02/14/2016 2:51 PM CDT Ambulatory Patient Summary [address] [id number] Visit Information Name: DEBBIYOLY BENOITALYSSA HERNANDEZ [facility] Number: [id number] Current Date: 02/14/2016 14:51:30 Physicians Attending Provider: RONALD MOLINA MD Primary Care Provider: RONALD MOLINA MD ELIAN DAWKINS has been given the following list of follow-up instructions, medication list,and patient education materials: Follow-up Instructions With: Address: When: See you in March 2016 for follow up. Please do blood tests before appointment. With: Address: When: Follow with ENT for nasal congestion and hay fever. With: Address: When: Follow with Urology for prostate and urinartion problem. You may have bladder distention due to prostate. With: Address: When: Please increase Metformin dose, take 1 tablet two times a day, AM and PM with meals. I sent new prescription. With: Address: When: Please stop Hydoxyzine as you don't feel like it is helping. You're given by previous doctor for anxiety. Just continue Fluoxetine. If you continue to have anxiety, you need to see Psychiatrist. Your Medications Here is a list of [...] nasal (fluticasone 50 mcg/inh nasal spray) 2 [place](s), Nostrils(Both), once a day in each nostril / For nasal congestion. ipratropium nasal (Atrovent 21 mcg/inh nasal spray) 2 [place](s), Nostrils(Both), three times a day asneeded for Nasal congestion in each nostril / For nasal congestion. This is a CHANGE lisinopril (lisinopril 5 mg oral tablet) 1 Tablet(s), Oral, once a day For high blood pressure and kidney protection. metFORMIN (metFORMIN 850 mg oral tablet) 1 Tablet(s), Oral, two times a day with meals Dose increased on 02/14/2016. / For diabetes[place] [address] metoprolol (metoprolol tartrate 25 mg oral tablet) [...] as possible. Stop Taking the Following Medications: hydrOXYzine (hydrOXYzine) Medication list as of 02-14-16 14:51 Attention: If you have any medications at [...] Electronically Signed By: RONALD MOLINA MD Signed On:14-FEB-2016 14:47:34 Your Allergies & Intolerances Substance Reaction Symptoms [...] Your Upcoming Appointments Date Time Location Provider 02/18/2016 10:15 [facility] Urology Beto Mcdermott MD [...] if you dont have one. Go to [email or web address] and click on Create Your Account. Then, follow the directions to complete the online form. Youll be asked for your [facility] number which you can find at the top of this document. Your Goals/Additional instructions: Source: [facility] POWERCHART Document Id: [id number] Miscellaneous - Ronald Moilna M.D. - 02/14/2016 2:51 PM CDT Ambulatory Discharge Medication List [address] [id number] Visit Information Name: ELIAN DAWKINS [facility] Number: [id number] Current Date: 02/14/2016 14:51:29 Attending Provider: RONALD MOLINA MD Primary Care [...] nasal (fluticasone 50 mcg/inh nasal spray) 2 [place](s), Nostrils(Both), once a day in each nostril / For nasal congestion. ipratropium nasal (Atrovent 21 mcg/inh nasal spray) 2 [place](s), Nostrils(Both), three times a day asneeded for Nasal congestion in each nostril / For nasal congestion. This is a CHANGE lisinopril (lisinopril 5 mg oral tablet) 1 Tablet(s), Oral, once a day For high blood pressure and kidney protection. metFORMIN (metFORMIN 850 mg oral tablet) 1 Tablet(s), Oral, two times a day with meals Dose increased on 02/14/2016. / For diabetes. [place] [address] metoprolol (metoprolol tartrate 25 mg oral tablet) [...] as possible. Stop Taking the Following Medications: hydrOXYzine (hydrOXYzine) Medication list as of 02-14-16 14:51 Attention: If you have any medications at [...] Electronically Signed By: RONALD MOLINA MD Signed On:14-FEB-2016 14:47:34 Additional Information: Source: [facility] POWERCHART Document Id: [id number] Miscellaneous - Margareth Bunn C.M.A. - 02/14/2016 1:23 PM CDT Adult [place] Program Coordinator Intake/History Adult [place] Program Coordinator Intake/History Entered On: 02/14/2016 13:29 CDT Performed On: 02/14/2016 13:23 CDT by MARGARETH BUNN [facility] Intake Chief Complaint : 1. One month follow up from 01/17/16. 2.Lower abdominal pain, difficulty urinating and strong odor. 3.Head feels foggy Temperature Core : 37.6 DegC(Converted to: 99.7 DegF) Peripheral Pulse Rate : 70 /min Respiratory Rate : 16 /min Systolic Blood Pressure : 114 mmHg Diastolic Blood Pressure : 62 mmHg NIBP Mean : 79 mmHg BP Location : Right upper extremity Blood Pressure Cuff Size : Regular Height : 172 cm(Converted to: 5 ft 8 inch(es), 68 inch(es)) Actual Weight : 99.65 kg(Converted to: 219 lb 11 oz) Weight Source : Standing scale Dosing Weight Clinic : 99.65 kg Clinic BSA : 2.18 Body Mass Index : 33.68 kg/m2 MARGARETH BUNN [facility] - 02/14/2016 13:23 CDT General Info Information Given By : Patient Preferred Communication Mode : Verbal, Written Languages : Urdu Is Patient Female and 13-50 no hysterectomy : No MARGARETH BUNN [facility] - 02/14/2016 13:23 CDT Subjective Pain Symptoms : No Genitourinary Symptoms : Frequency MARGARETH BUNN [facility] - 02/14/2016 13:23 CDT Dependent Habits Exposure to Tobacco Smoke : Other: Never Smoking Status : Never smoker Tobacco 2A : No Tobacco Use/Currently Using : No Tobacco Use/Last 30 Days : No Tobacco Use/Last 12 months : No MARGARETH BUNN [facility] - 02/14/2016 13:23 CDT Source: [facility] POWERCHART Document Id: [id number] CDT!32 Miscellaneous - Ronald Molina M.D. - 07/11/2015 12:00 AM CDT Quality Measures Quality Measures Entered On: 02/14/2016 14:38 CDT Performed On: 07/11/2015 0:00 CDT by RONALD MOLINA MD Labs Outside Lab Creatinine (Serum) : 0.9 mg/dL Outside Lab Hgb A1c : 7.7 % Outside Lab Cholesterol : 141 mg/dL Outside Lab HDL : 58 mg/dL Outside Lab LDL : 60 mg/dL Outside Lab Triglycerides : 113 mg/dL Outside Lab Microalbumin : 0 mg/gm Outside Lab Report Location : Scanned into EMR RONALD MOLINA MD - 02/14/2016 14:37 CDT [facility] Document Id: [id number] CDT!10 documented in this encounter Plan of Treatment Upcoming Encounters Date Type Specialty Care Team Description 04/23/2022 Office Visit Cardiovascular Disease Blas Peck M.D. [address] [place] [address] [phone] (Wo rk) documented as of this encounter Procedures Procedure Name Priority Date/Time Associated Comments Diagnosis URINALYSIS WITH Routine 02/14/2016 3:24 PM Result s for this MICROSCOPIC CDT procedure are i n the results section. BACTERIAL CULTURE, Routine 02/14/2016 3:24 PM Res ults for this AEROBIC, URINE CDT procedure are in the results section. documented in this encounter Results Urinalysis, Complete, Includes Microscopic (02/14/2016 3:24 PM CDT) P athologist Signature Clarity Clear Clear POWERCHART HXUr Color Yellow Colorless POWERCHART Specific 1.010 POWERCHART [place], POCT, U Comment: Reference Range Specific [place]: 1.000-1.035 pH, POCT, Urine 5.5 <5.0 POWERCHART Comment: Reference Range pH: 5.0-8.0 Protein, Ur, Dip Negative Negative MGDL POWERCHAR T Glucose Negative Negative MGDL POWERCHART Ketones, QL(U) Negative Negative [...] Location / / Volume Laterality Urine, First 02/14/2016 3:24 PM Voided CDT Ronald Molina M.D. LAB URINE ORDERABLES Performing Organization Address City/State/ZIP Code Phon e Number POWERCHART Bacterial Culture, Aerobic, Urine (02/14/2016 3:24 PM CDT) Analysis Performed At Patho logist Time Signature Bacterial POWERCHART Culture, Aerobic, Urine HXFinal No growth POWERCHART Specimen (Source) Anatomical Collection Method Collection Time Re ceived Time Location / / Volume Laterality Urine, First 02/14/2016 3:24 PM Voided CDT Ronald Molina M.D. LAB MICROBIOLOGY - GENERAL O RDERABLES Performing Organization Address City/State/ZIP Code Phon e Number POWERCHART documented in this encounter Visit Diagnoses Not on filedocumented in this encounter
--- OUTSIDE RECORDS SUMMARY | 2022-02-17 12:27 | XMS_ITS | Encounter Summary ---
:1950 Author Organization [facility] Address [address] [place] [address] Care Team Providers Name Role Phone Unavailable Primary Care Provider Unavailable Encounter Details Date Type Department Care Team Description 04/25/2016 Hospital Encounter HX [facility] Ronald Leong M.D. [id number] [phone] Social History Tobacco Use Types Packs/Day [...] Sign Reading Time Taken Comments Blood Pressure 131/74 04/25/2016 1:53 PM YOUTH SPECIALIST Pulse 67 04/25/2016 1:53 PM YOUTH SPECIALIST Temperature - - Respiratory Rate 20 04/25/2016 1:53 PM YOUTH SPECIALIST Oxygen Saturation - - Inhaled Oxygen Concentration - - Weight 96.7 kg (213 lb 3 oz) 04/25/2016 1:53 PM YOUTH SPECIALIST Height 172 cm (5' 7.72) 04/25/2016 1:53 PM YOUTH SPECIALIST Body Mass Index 32.69 04/25/2016 1:53 PM YOUTH SPECIALIST documented in this encounter Medications at Time [...] encounter Progress Notes Ronald Molina M.D. - 04/25/2016 1:38 PM CST [id number] CHIEF COMPLAINT/REASON FOR VISIT Discuss abdomen CT results. HISTORY OF PRESENT ILLNESS Elian is a 66-year-old male who presents to the clinic today to discuss abdomen CT results. Because of suprapubic abdominal pain, he had CT of the abdomen/pelvis on 04/18/2016. There were no acute findings and no significant overall change from previous exam done on 05/30/2015. He has diverticulosis. He continues to have pain and discomfort in his lower abdomen. He mentioned that he has not had a good, normal bowel movement for a long time. He has gas often. His last colonoscopy was on 07/27/2015. Four polyps were found and recommended to repeat in 2019. Patient saw Sabrina Valadez NP in urology on 04/21/2016 for lower urinary tract symptoms. He was treated with Doxycycline for prostatitis and Sildenafil for erectile dysfunction. He mentioned that occasionally takes 2 Flomax tablets and feels better for a while. We discussed seeing a psychiatrist for his anxiety. He states that he is unable to get an appointment for six months, which he is frustrated about. He states that it often takes him a while to get up in the morning. He feels that he has sleep apnea because he snores and occasionally needs to catch hisbreath when sleeping. We discussed test results from 04/21/2016. Results were remarkable for glucose 185. In terms of his diabetes, he checks his blood sugar twice a day, ranging from 110s to 216. He is taking Metformin twice a day. At his last visit, he was given Atrovent as needed for his allergies. He notices minor difference insymptoms. He has some nasal dryness after using nasal spray. We decreased his Lisinopril to 2.5 mg daily in the morning last time because his blood pressure was lower normal range. His blood pressure is better today. I reviewed and updated his medication list. We discussed potential side effects. There are no additional questions, concerns, or complaints. MEDICATIONS Aspirin 81 mg by mouth daily. Atorvastatin 20 mg by mouth at bedtime. Doxycycline 100 mg by mouth twice a [...] and updated as per the EHR on 04/25/2016. PREVENTIVE SERVICES Reviewed and updated as per the EHR on 04/25/2016. SOCIAL HISTORY Reviewed and updated as per the EHR on 04/25/2016. FAMILY HISTORY Reviewed and updated as per the EHR on 04/25/2016. VITAL SIGNS HEIGHT: 172 cm. WEIGHT: 96.7 kg. BMI: 32.69 kg/m2. TEMP: 37 Deg C. PULSE: 67 /min. RESP: 20 /min. SYSTOLIC: 131 mmHg. DIASTOLIC: 74 mmHg. PHYSICAL EXAMINATION GENERAL: Patient is sitting. No distress. Able to talk without interruption. PERIPHERAL VESSELS: He has decreased pedal pulsation. EXTREMITIES: No clubbing, cyanosis, edema, infection, or calf tenderness. His feet are cold. He has bilateral foot calluses. MENTAL: Alert and oriented x 3. Normal mood and affect. NEURO: Monofilament test was intact except in areas of calluses. IMPRESSION/REPORT/PLAN 1. Suprapubic abdominal pain with diverticulosis. We discussed abdomen CT. It was unremarkable. He needs to increase his fiber intake. Patient will take Metamucil daily. He was advised to eat fruits and vegetables and increase his water intake. We will stop Metformin to see if that helps his abdominalbloating. 2. BPH with obstruction with acute prostatitis. He will take Doxycycline as prescribed by urologist.He will follow with urology in June 2016. 3. Diabetes mellitus type 2 with neuropathy. He was advised to continue current ADA diet and regularexercise. We will hold Metformin for the time being. He will take Amaryl 4 mg daily in the morning with food. Need to monitor blood sugar daily in the morning before breakfast. Self-management goals ofdiabetes mellitus were reviewed. Need to check hemoglobin A1c every 3 months. 4. Hyponatremia. His sodium was 135 on 04/21/2016. Patient is asymptomatic. Need to monitor electrolytes and renal function regularly. 5. Anxiety. He needs to see psychiatrist. We discussed that it can take a while to see a psychiatrist. He was advised to continue current medication. 6. Possible obstructive sleep apnea. He does not want further evaluation at this time. 7. Benign essential hypertension. Blood pressure is controlled. He is stable from a cardiac standpoint. Need to continue sodium controlled diet and current medication. Blood pressure goal is less than 140/90 mmHg. Need to continue cardiovascular risk factors modification. 8. Chronic rhinitis with postnasal drip. He needs to use Fluticasone daily and Atrovent as needed. 9. Bilateral foot callus. No evidence of infection currently. He was advised to watch for infection because of his diabetes. 10. Discussed test results. I reviewed test results from 04/21/2016. All questions were answered. The patient will return to the clinic in 1 month for followup. Administrative Billing 25 minutes of this 40 minute visit was spent in face to face counseling and coordination of care, answering the questions and discussing management of above medical problems. This document serves as a record of services personally performed by Dr. Ronald Molina. It was created on their behalf by Balaji Larios, a trained medical specialist. The creation of this record is based on the scribe's personal observations and the provider's statements to them. This document has been checked and approved by the attending provider. Ronald Molina M.D./melissa Electronically Signed By: RONALD MOLINA MD On: 05/09/2016 12:04 PM Modified by and Electronically Signed by: RONALD MOLINA MD On: 05/09/2016 12:04 PM Source: [facility] MHSDOLBEYNONRADSYS Document Id: [id number] H SPECIALIST documented in this encounter Nursing Notes Ronald Molina M.D. - 04/25/2016 3:02 PM CST Ambulatory Patient Education The following Patient Education Materials have been given to the patient: Patient Education Materials: Source: [facility] POWERCHART Document Id: [id number] H SPECIALIST documented in this encounter Miscellaneous Notes Telephone Encounter - Alec Howard R.N. - 05/14/2016 10:11 AM CST Walk-in - update for provider Document Contains Addenda Addendum by RONALD MOLINA MD on May 14, 2016 15:29:49 YOUTH SPECIALIST From: RONALD MOLINA MD To: RENETTA Owen Medication Refill; Cc: RENETTA Molina Nurse; Sent: 05/14/2016 15:29:49 YOUTH SPECIALIST Subject: RE: Walk-in - update for provider Noted. Thank you. From: ALEC HOWARD RN (RENETTA [place] Medication Refill) To: RONALD MOLINA MD; Sent: 05/14/2016 10:11:30 YOUTH SPECIALIST Subject: Walk-in - update for provider Caller is: ( x ) Patient ( _ ) Parent ( _ ) Spouse ( _ ) Child ( ) Other: _ Calling from phone number Walk In Reason for Call: Stomach Problems, Headache, Anxiety Chief Complaint: Patient walked into the clinic and wanted to be seen for multiple concerns. Patient was informed that Dr. Molina was not in clinic. Patient asked to see someone as he was concerned about difficulty breathing and maybe having a stroke. (Patient's wording). I brought patient back to exam room and patient explained that he had changes made to his diabetic medications and that he thinks this may have contributed to his symptoms. He had trouble explaining what his symptoms were, especially in relation to his head. He said there was some achiness and pressure. He notes he has had it for quite some time, but that Thursday it seemed worse. Later he said that Thursday it actually felt pretty good. He really struggled to explain what the symptoms he had were. he did note that he does have some problems with his nose and has had some congestion. Patient reported he did have either food poisening or a stomach flu for the last few days and has had diarrhea. He was inconsistent with his self report. He states that he wasn't eating or drinking much due to the stomach problems and diarrhea and then later said he has been drinking quite a bit of water. He thinks that he may have purchased bad cheese, but he is not certain that is the cause of his diarrhea. Patient made mention of his medical history, previous open heart surgery and issues with Anxiety. Hereports that on Thursday or Thursday when he wasn't feeling well he had some breathing concerns but couldn't give any detail. He notes that he has anxiety so it was probably due to that. I noted no breathing difficulty while i was with him. I asked the patient what I could do to help him or what he needed today, patient noted that really he just needed to talk to someone, he is not happy where he lives and doesn't feel like anyone cares about how he is doing. He notes that as soon as he got out of his apartment and got some fresh air he felt much better. He was in good spirits and did laugh and was very talkative. He noted that he really does not want to wait another week and a half to see Dr. Molina, we were able to get him in this Thursday to be seen. Patient was very happy about that. I did recommend patient eat a bland diet due to his stomach troubles and diarrhea. Advised him to drink plenty of fluids to avoid dehydration. I advised that if he has severe headaches that affect his mobility or if he has difficulty standing due to his head that he needs to go to the ED, he agreed. Patient was a poor historian and it was difficult getting an accurate picture of what symptoms he was having currently as everything he was telling me was from the weekend not current. I do feel that the patient was feeling anxious due to being home ill with the GI trouble and being unable to go watchhis grandkids Thursday like he normally does. He repeatedly expressed being upset that he missed out on that this week. He repeatedly noted that that makes his whole week. We discussed activities that help him when he is feeling anxious. We discussed getting out of his apartment and going for walks. In the winter he can go to the mall or to [employer] to walk around. He notes that he is a talkative, social person and he likes going to [employer] and socializing with people.Also, seeing his grandkids makes him feel better. Patient was happy when he left and was appreciative to get in to see Dr. Molina sooner and to be able to sit and talk with someone today. History of Present Illness: Onset of Symptoms: unsure when head symptoms started. Stomach Thursday or Thursday. Location: head and stomach Duration: headache has been nursing home, stomach for the last 2-3 days Characteristics: head - unclear, possible pain and pressure; stomach - upset and diarrhea Associated Factors: possibly due to med changes, food poisening or illness Relieving Factors: none noted Treatments Tried: tylenol for headache symptoms, crackers and soup for stomach Disposition of Call/Coordination of Care: ( _ ) Recommend immediate attention call 911 ( _ ) Report to nearest Emergency Department ( _ ) Recommend patient does not drive to the Emergency Department ( x ) Recommend patient/caller schedule an appointment - patient wanted to be seen sooner than current scheduled appointment, assisted in getting appointment this week ( x ) Transfer patient/caller to the appointment desk - walked patient up front to make new appointment ( x ) Notified Provider FYI to Dr. Molina. ( _ ) Awaiting provider recommendations ( _ ) Referral to services or providers _ ( x ) Self-care appropriate at this time Advised bland diet and fluids for stmoach and diarrhea. Advised what symptoms of a stroke would look like and what to look for. Advised self care recommendations for his Anxiety: get out of his apartment, go for walks, socialize with people - all things he noted helped or that he wanted to do. Self-Care Instructions: ( x ) Instructed to call back if symptoms persist, worsen or change ( x ) Instructed about specific symptoms to watch for: Severe headache that affects ability to standup, vision changes, numbness or weakness on one side of body. ( x ) Instructed to call 911 or have someone take them to the Emergency Department if any of the following symptoms develop: stroke symptoms (see above) ( _ ) Self-care information provided: Recommended Level of Care Patient/Caller response to Education/Information given: ( -x ) Verbalizes understanding of instructions Patient/Callers response to follow the plan of care: ( x ) Willing and able to follow the nurses recommendation (Plan of Care). ( _ ) Not able to follow nurse recommendations. Enter the recommended level of care and patients response to the recommendation: Source/References used: Telephone Triage Protocols for Nurses Fifth Edition, Nurses own knowledge ofrecommendations for above noted concerns. OK to leave message on voice mail? NA OK to send message via patient portal? NA Patient told to expect return call: No call back expected ( _ ) today ( _ ) tomorrow ( _ ) next workday Callers preferred language for Healthcare discussions: Italian Was an director of flight operations used for this call? no Other ( x ) FYI for Dr. Molina, nothing further needed at this time. Patient is scheduled to see provider on Thursday05/16/16. Source: [facility] POWERCHART Document Id: [id number] Electronically signed by Lukas, [facility] Retail [employer] Associate [id number] at 09/22/2016 10:11 PM CDT Miscellaneous - Ronald Molina M.D. - 04/29/2016 4:55 PM CST Need Prevnar 13 on 05/23/2016 visit Document Contains Addenda Addendum by KIKE REEDER LPN on April 29, 2016 16:59:01 YOUTH SPECIALIST Spoke with: ( x ) Patient ( _ ) Parent ( _ ) Spouse ( _ ) Child ( ) Other: _ Call back telephone number: [phone] Reason for Call: -Prevnar 13 Chief Complaint: Patient notified and agrees to have the vaccine at his next visit _ Patient/Caller response to Education/Information given: ( [...] language for Healthcare discussion: _ Was an director of flight operations used for this call? _ Other ( --x ) No further action required. From: RONALD MOLINA MD To: RENETTA Molina Nurse; Sent: 04/29/2016 16:55:24 YOUTH SPECIALIST Subject: Need Prevnar 13 on 05/23/2016 visit Actions: Notify patient of Future Order Please call. He needs Prevnar 13 when he comes in for follow up on 05/23/2016. Order is in EHR. Source: [facility] POWERCHART Document Id: [id number] Electronically signed by Lukas [facility] Retail Store Associate [id number] at 09/22/2016 10:11 PM CDT Miscellaneous - Ronald Molina M.D. - 04/25/2016 3:03 PM CST Ambulatory Patient Summary [facility] [address] [place] [phone] Visit Information Name: ELIAN DAWKINS DAVID [facility] Number: [phone] Current Date: 04/25/2016 15:03:03 Physicians Attending Provider: RNOALD MOLINA MD Primary Care Provider: RONALD MOLINA MD ELIAN DAWKINS has been given the following list of follow-up instructions, medication list,and patient education materials: Follow-up Instructions With: Address: When: I'll see you in 1 month. With: Address: When: Please follow with Urology for your prostate problems. With: Address: When: Please see Psychiatrist for management of anxiety. Yes, it takes several months to get into see them. With: Address: When: Eats more fruits and vegetables. Take Metamucil daily for diverticulosis. With: Address: When: Start Amaryl daily in the morning for diabetes mellitus. Check blood sugar daily in the morning before breakfast. With: Address: When: Stop Metformin, which may cause abdominal bloating. Your Medications Here is a list of [...] two times a day x 21 day(s) FLUoxetine (FLUoxetine 20 mg oral tablet) 2 Tablet(s), Oral, once a day (in the morning) For anxietyand depression. fluticasone nasal (fluticasone 50 mcg/inh nasal spray) 2 Cyrus(s), Nostrils(Both), once a day glimepiride (Amaryl 4 mg oral tablet) 1 Tablet(s), Oral, once a day (in the morning) with the first meal of the day STOP Metformin. [place] [address] ipratropium nasal (Atrovent 21 mcg/inh nasal spray) 2 Cyrus(s), Nostrils(Both), three times a day asneeded for [...] Oral, two times a day For stomach. sildenafil (sildenafil 100 mg oral tablet) 1 tablet one hour prior to sexual activity, Oral, once a day as needed for Erectile dysfunction Stop Taking the Following Medications: metFORMIN (metFORMIN 850 mg oral tablet) Medication list as of 04-25-16 15:03 Attention: If you have any medications at [...] Electronically Signed By: RONALD MOLINA MD Signed On:25-APR-2016 14:59:54 Your Allergies & Intolerances Substance Reaction Symptoms [...] Spasm Bladder Active Diverticulosis Colon Active Callus [place] Foot Bilateral Active Your Upcoming Appointments Date Time Location Provider 06/23/2016 08:15 [facility] Urology Sabrina Valadez CNP Attention: Contact [...] if you dont have one. Go to [email or web address] and click on Create Your Account. Then, follow the directions to complete the online form. Youll be asked for your [facility] number which you can find at the top of this document. Your Goals/Additional instructions: Source: [facility] POWERCHART Document Id: [id number] H SPECIALIST Miscellaneous - Ronald Molnia M.D. - 04/25/2016 3:03 PM CST Ambulatory Discharge Medication List [address] [phone] Visit Information Name: MACKELIAN Vu [facility] Number: [phone] Current Date: 04/25/2016 15:03:02 Attending Provider: RONALD MOLINA MD Primary Care [...] two times a day x 21 day(s) FLUoxetine (FLUoxetine 20 mg oral tablet) 2 Tablet(s), Oral, once a day (in the morning) For anxietyand depression. fluticasone nasal (fluticasone 50 mcg/inh nasal spray) 2 Cyrus(s), Nostrils(Both), once a day glimepiride (Amaryl 4 mg oral tablet) 1 Tablet(s), Oral, once a day (in the morning) with the first meal of the day STOP Metformin. New Routed to [address] [address] ipratropium nasal (Atrovent 21 mcg/inh nasal spray) 2 Cyrus(s), Nostrils(Both), three times a day asneeded for [...] Oral, two times a day For stomach. sildenafil (sildenafil 100 mg oral tablet) 1 tablet one hour prior to sexual activity, Oral, once a day as needed for Erectile dysfunction Stop Taking the Following Medications: metFORMIN (metFORMIN 850 mg oral tablet) Medication list as of 04-25-16 15:03 Attention: If you have any medications at [...] Electronically Signed By: RONALD MOLINA MD Signed On:25-APR-2016 14:59:54 Additional Information: Source: [facility] POWERCHART Document Id: [id number] H SPECIALIST Miscellaneous - Ronald Molina M.D. - 04/25/2016 2:51 PM CST Quality Measures Quality Measures Entered On: 04/25/2016 14:54 YOUTH SPECIALIST Performed On: 04/25/2016 14:51 YOUTH SPECIALIST by RONALD MOLINA MD Diabetes Date of Last Foot Exam : 04/25/2016 YOUTH SPECIALIST RONALD MOLINA MD - 04/25/2016 14:51 YOUTH SPECIALIST Foot Exam Grid Left foot exam Right foot exam Dorsalis Pedis Pulse : Diminished Absent Post Tibial Pulse : Absent Absent 10 gm Monofilament Sensation Check : Intact (Comment: Except the area of callous. [RONALD MOLINA MD - 04/25/2016 14:51 YOUTH SPECIALIST] ) Intact (Comment: Except the area of callous. [RONALD MOLINA MD - 04/25/2016 14:51 YOUTH SPECIALIST] ) RONALD MOLINA MD - 04/25/2016 14:51 YOUTH SPECIALIST RONALD MOLINA MD - 04/25/2016 14:51 YOUTH SPECIALIST Source: [facility] [employer] Document Id: [id number] YOUTH SPECIALIST!12 H SPECIALIST Miscellaneous - Talat Jacobson C.MMichelleAMichelle - 04/25/2016 1:53 PM CST Adult Small Engine Mechanic Intake/History Adult Small Engine Mechanic Intake/History Entered On: 04/25/2016 13:57 YOUTH SPECIALIST Performed On: 04/25/2016 13:53 YOUTH SPECIALIST by TALAT JACOBSON [facility] Intake Chief Complaint : 1: discuss CT scan Temperature Core : 37 DegC(Converted to: 98.6 DegF) Peripheral Pulse Rate : 67 /min Respiratory Rate : 20 /min Systolic Blood Pressure : 131 mmHg Diastolic Blood Pressure : 74 mmHg NIBP Mean : 93 mmHg BP Location : Left upper extremity Blood Pressure Cuff Size : Regular Height : 172 cm(Converted to: 5 ft 8 inch(es), 68 inch(es)) Actual Weight : 96.7 kg(Converted to: 213 lb 3 oz) Weight Source : Standing scale Dosing Weight Clinic : 96.7 kg Prosthetic device on during patient weight : No Clinic BSA : 2.15 Body Mass Index : 32.69 kg/m2 TALAT JACOBSON CMA - 04/25/2016 13:53 YOUTH SPECIALIST General Info Information Given By : Patient Languages : Italian Is Patient Female and 13-50 no hysterectomy : TALAT Kaminski CMA - 04/25/2016 13:53 YOUTH SPECIALIST Subjective Pain Symptoms : TALAT aKminski CMA - 04/25/2016 13:53 YOUTH SPECIALIST Dependent Habits Exposure to Tobacco Smoke : Other: Never Smoking Status : Never smoker Tobacco 2A : No Tobacco Use/Currently Using : No Tobacco Use/Last 30 Days : No Tobacco Use/Last 12 months : TALAT Kaminski CMA - 04/25/2016 13:53 YOUTH SPECIALIST Source: [facility] [employer] Document Id: [id number] YOUTH SPECIALIST!31 H SPECIALIST documented in this encounter Plan of Treatment Upcoming Encounters Date Type Specialty Care Team Description 04/23/2022 Office Visit Cardiovascular Disease Blas Peck M.D. [address] [place] [address] [phone] ([id number] rk) documented as of this encounter Visit Diagnoses Not on filedocumented in this encounter
--- OUTSIDE RECORDS SUMMARY | 2022-02-17 12:27 | XMS_ITS | Encounter Summary ---
:1950 Author Organization [facility] Address [address] [place] [address] Care Team Providers Name Role Phone Unavailable Primary Care Provider Unavailable Encounter Details Date Type Department Care Team Description 01/17/2016 Hospital Encounter HX [facility] Ronald Leong M.D. [id number] [phone] Social History Tobacco Use Types Packs/Day [...] Sign Reading Time Taken Comments Blood Pressure 105/65 01/17/2016 2:48 PM CDT Pulse 65 01/17/2016 2:48 PM CDT Temperature - - Respiratory Rate 18 01/17/2016 2:48 PM CDT Oxygen Saturation - - Inhaled Oxygen Concentration - - Weight 99.5 kg (219 lb 5.7 oz) 01/17/2016 2:48 PM CDT Height 172 cm (5' 7.72) 01/17/2016 2:48 PM CDT Body Mass Index 33.63 01/17/2016 2:48 PM CDT documented in this encounter Medications at Time of Discharge Medication Sig Dispensed Refills Start Date End Date aspirin 81 mg chewable Chew 1 tablet daily. 0 07/09/2020 tablet blood-glucose meter [facility] [place] Dispense glucose 0 05/2308/11/2018 meter, test strips and lancets covered by the patient insurance. Test 2 times per day. documented as of this encounter Progress Notes Ronald Molina M.D. - 01/17/2016 2:42 PM CDT [id number] CHIEF COMPLAINT/REASON FOR VISIT 1. Followup on chronic medical problems. 2. Discuss test results. HISTORY OF PRESENT ILLNESS Elian is a 65-year-old male who presents to the clinic today for a two week followup from 01/03/2016. We discussed test results from 01/03/2016. Results were remarkable for glucose 178, PSA 1.5, hemoglobin A1c 7.9, and TSH 1.79. At his last visit, he had complaints of foul smelling odor with history of BPH. Urine culture was negative at that time. He is following with urology next month. He has raw urine in the morning and hasurinary frequency. Patient saw Archana Barreto APRN/OCTAVIO on 01/09/2016 for chest congestion with cough, treated with Cefuroxime and Polytrim eye drops for maxillary sinusitis and bilateral conjunctivitis. He continues to have head congestion, postnasal drip, and blurriness in his left eye. He has itchy, watery eyes and sneezing. He is seeing an eye doctor next week. He has been using Flonase a few times a day but was not helpful, so he stopped it. He has history of irritable bowel syndrome. He has some constipation. Abdomen x- ray on 01/03/2016 showed fecal retention. He is working on his diet. He had colonoscopy on 07/27/2015 at [facility]. He has history of colon polyp. In regards to his diabetes mellitus type 2, he checks his blood sugar daily and ranges from 152-190.His hemoglobin A1c is high with 7.9. He is taking medication regularly. Patient had cardiovascular consultation with Dr. Lakeshia Lucas at [facility] on 09/28/2015. Tests were done that day but are unavailable for me to view today. He has coronary artery disease andunderwent four-vessel CABG in May 2014 at [place]. We discussed his echocardiogram from 10/26/2015 1. Transthoracic outreach echo interpretation. 2. Technically challenging images. Contrast not available at the time this echo was performed at this outreach site. 3. Normal left ventricular chamber size. 4. Regional wall motion abnormalities were present (see wall motion graphics). Cannot be certain because of suboptimal endocardial definition. 5. Estimated left ventricular ejection fraction; 55 %. 6. Normal left ventricular diastolic function. 7. Normal right ventricular size with mild systolic dysfunction. 8. No significant valvular heart disease. 9. Estimated right ventricular systolic pressure 21 mmHg (systolic blood pressure 110 mmHg). We need to get all of his records from [facility], and [facility]. He already received flu shot last month. There are no additional questions, concerns, or complaints. MEDICATIONS Aspirin 81 mg by mouth daily. Atorvastatin 20 mg by mouth at bedtime. Cefuroxime 500 mg by mouth twice a day for 10 days. Fluoxetine 40 mg by mouth daily. Fluticasone 50 mcg inhalation powder 1 spray both nostrils daily. Hydroxyzine 25 mg by mouth as needed for anxiety. Atrovent 21 mcg/inh nasal spray 2 sprays both nostrils three times a day as needed. Lisinopril 5 mg by mouth daily. Metformin 850 mg by mouth daily in the morning. Metoprolol tartrate 25 mg by mouth twice a day. Polytrim 10,000 units-1 mg/mL ophthalmic solution 1 drop both eyes every 3 hours for 10 days. Tamsulosin 0.8 mg by mouth daily. Tolterodine 2 mg by mouth twice a day. ALLERGIES Bactrim causing swelling. SYSTEMS REVIEW Please see HPI for pertinent positives, otherwise rest of ROS negative. PAST MEDICAL/SURGICAL HISTORY Reviewed and updated as per the EHR on 01/17/2016. PREVENTIVE SERVICES Reviewed and updated as per the EHR on 01/17/2016. SOCIAL HISTORY Reviewed and updated as per the EHR on 01/17/2016. FAMILY HISTORY Reviewed and updated as per the EHR on 01/17/2016. VITAL SIGNS HEIGHT: 172 cm. WEIGHT: 99.5 kg. BMI: 33.63 kg/m2. PULSE: 65 /min. RESP: 18 /min. SYSTOLIC: 105 mmHg. DIASTOLIC: 65 mmHg. PHYSICAL EXAMINATION GENERAL: Patient is sitting. No distress. Able to talk without interruption. IMPRESSION/REPORT/PLAN 1. BPH with obstruction. Urine culture was negative on . He will continue Tolterodine and Tamsulosin. He was advised to keep appointment with urology on 02/18/2016. 2. Constipation/fecal retention. He needs to make sure fiber intake is adequate and drink plenty of water. His last colonoscopy was done on 07/27/2015. 3. Hay fever. He has nasal congestion, postnasal drip, sneezing, and itchy/watery eyes. He was advised to use Fluticasone nasal spray both nostrils daily. He can use Atrovent nasal spray as needed. Need to refer him to ENT for further evaluation and management. 4. Diabetes mellitus type 2 with neuropathy. It is not controlled. Hemoglobin A1c was 7.9% on 01/03/2016. He was advised to continue current ADA diet, regular exercise, and current medication. Need to monitor blood sugar regularly. Self- management goals of diabetes mellitus were reviewed. Need to check hemoglobin A1c every 3 months. 5. Hyperlipidemia. There are no side effects from Atorvastatin. Patient was advised to continue low cholesterol, low fat diet, regular exercise, and current medication. We need to get previous medical records for last lipid panel. If not done in the last year, we need to repeat fasting lipid profile. 6. Benign essential hypertension. Blood pressure is controlled. He is stable from a cardiac standpoint. Need to continue sodium controlled diet and current medication. Blood pressure goal is less than 140/90 mmHg. Need to continue cardiovascular risk factors modification. The patient will return to the clinic in 1 month for followup. He needs to bring all of his medication bottles to his subsequent visit. This document serves as a record of services personally performed by Dr. Ronald Molina. It was created on their behalf by Balaji Larios, a trained medical sales. The creation of this record is based on the scribe's personal observations and the provider's statements to them. This document has been checked and approved by the attending provider. Ronald Molina M.D./melissa Electronically Signed By: RONALD MOLINA MD On: 01/17/2016 03:35 PM Modified by and Electronically Signed by: RONALD MOLINA MD On: 01/17/2016 03:35 PM Source: [facility] MHSDOLBEYNONRADSYS Document Id: [id number] documented in this encounter Miscellaneous Notes Miscellaneous - Ronald Molina M.D. - 01/17/2016 3:28 PM CDT Ambulatory Patient Summary [id number] [facility] [place] [id number] Visit Information Name: ELIAN DAWKINS DAVID [facility] Number: [id number] Current Date: 01/17/2016 15:28:03 Physicians Attending Provider: RONALD MOLINA MD Primary [...] Tablet(s), Oral, once a day (at bedtime) cefuroxime (cefuroxime 500 mg oral tablet) 1 Tablet(s), Oral, two times a day x 10 day(s) FLUoxetine (FLUoxetine 20 mg oral tablet) 2 Tablet(s), Oral, once a day fluticasone nasal (fluticasone 50 mcg/inh nasal spray) 2 Oxford(s), Nostrils(Both), once a day in each nostril hydrOXYzine (hydrOXYzine) 25 mg, Oral, as needed for Anxiety take one to two capsules by mouth every8 hours as needed for anxiety ipratropium nasal (Atrovent 21 mcg/inh nasal spray) 2 Oxford(s), Nostrils(Both), three times a day asneeded for Nasal congestion in each nostril New Routed to [address] [place] [address] lisinopril (lisinopril 5 mg oral tablet) 1 Tablet(s), Oral, once a day metFORMIN (metFORMIN 850 mg oral tablet) 1 Tablet(s), Oral, once a day (in the morning) metoprolol (metoprolol tartrate 25 mg oral tablet) 1 Tablet(s), Oral, two times a day polymyxin B-trimethoprim ophthalmic (Polytrim 10,000 units-1 mg/mL ophthalmic solution) 1 Drops, Eyes(Both), every 3 hours x 10 day(s) while awake tamsulosin (tamsulosin 0.4 mg oral capsule) 2 cap, Oral, once a day tolterodine (tolterodine 2 mg oral tablet) 1 Tablet(s), Oral, two times a day Stop Taking the Following Medications: Medication list as of 01-17-16 15:28 Attention: If you have any medications at [...] Electronically Signed By: RONALD MOLINA MD Signed On:17-JAN-2016 15:27:56 Your Allergies & Intolerances Substance Reaction Symptoms [...] if you dont have one. Go to [email or web address] and click on Create Your Account. Then, follow the directions to complete the online form. Youll be asked for your [facility] number which you can find at the top of this document. Your Goals/Additional instructions: Source: [facility] POWERCHART Document Id: [id number] Miscellaneous - Ronald Molina M.D. - 01/17/2016 3:28 PM CDT Ambulatory Discharge Medication List [address] [id number] Visit Information Name: ELIAN DAWKINS [facility] Number: [id number] Current Date: 01/17/2016 15:28:02 Attending Provider: RONALD MOLINA MD Primary Care [...] Tablet(s), Oral, once a day (at bedtime) cefuroxime (cefuroxime 500 mg oral tablet) 1 Tablet(s), Oral, two times a day x 10 day(s) FLUoxetine (FLUoxetine 20 mg oral tablet) 2 Tablet(s), Oral, once a day fluticasone nasal (fluticasone 50 mcg/inh nasal spray) 2 Oxford(s), Nostrils(Both), once a day in each nostril hydrOXYzine (hydrOXYzine) 25 mg, Oral, as needed for Anxiety take one to two capsules by mouth every8 hours as needed for anxiety ipratropium nasal (Atrovent 21 mcg/inh nasal spray) 2 Oxford(s), Nostrils(Both), three times a day asneeded for Nasal congestion in each [place] [address] lisinopril (lisinopril 5 mg oral tablet) 1 Tablet(s), Oral, once a day metFORMIN (metFORMIN 850 mg oral tablet) 1 Tablet(s), Oral, once a day (in the morning) metoprolol (metoprolol tartrate 25 mg oral tablet) 1 Tablet(s), Oral, two times a day polymyxin B-trimethoprim ophthalmic (Polytrim 10,000 units-1 mg/mL ophthalmic solution) 1 Drops, Eyes(Both), every 3 hours x 10 day(s) while awake tamsulosin (tamsulosin 0.4 mg oral capsule) 2 cap, Oral, once a day tolterodine (tolterodine 2 mg oral tablet) 1 Tablet(s), Oral, two times a day Stop Taking the Following Medications: Medication list as of 01-17-16 15:28 Attention: If you have any medications at [...] Electronically Signed By: RONALD MOLINA MD Signed On:17-JAN-2016 15:27:56 Additional Information: Source: [facility] POWERCHART Document Id: [id number] Miscellaneous - [place], C.M.AMichelle - 01/17/2016 2:48 PM CDT Adult Disc Sander Intake/History Adult Disc Sander Intake/History Entered On: 01/17/2016 14:53 CDT Performed On: 01/17/2016 14:48 CDT by LA MONREAL [facility] Intake Chief Complaint : 1. Two week follow up from 01-03-16 Peripheral Pulse Rate : 65 /min Respiratory Rate : 18 /min Heart Rhythm : Regular Systolic Blood Pressure : 105 mmHg Diastolic Blood Pressure : 65 mmHg NIBP Mean : 78 mmHg BP Location : Right upper extremity Blood Pressure Cuff Size : Large Height : 172 cm(Converted to: 5 ft 8 inch(es), 68 inch(es)) Actual Weight : 99.5 kg(Converted to: 219 lb 6 oz) Dosing Weight Clinic : 99.5 kg Clinic BSA : 2.18 Body Mass Index : 33.63 kg/m2 LA MONREAL [facility] - 01/17/2016 14:48 CDT General Info Information Given By : Patient Preferred Communication Mode : Verbal Languages : Palauan Is Patient Female and 13-50 no hysterectomy : LA Diaz [facility] - 01/17/2016 14:48 CDT Subjective Pain Symptoms : LA Diaz [facility] - 01/17/2016 14:48 CDT Dependent Habits Exposure to Tobacco Smoke : Other: Never Smoking Status : Never smoker Tobacco 2A : No Tobacco Use/Currently Using : No Tobacco Use/Last 30 Days : No Tobacco Use/Last 12 months : LA Diaz [facility] - 01/17/2016 14:48 CDT [facility] Document Id: [id number] CDT!30 Telephone Encounter - Conversion, Historical Provider Ser - 01/07/2016 1:05 PM CDT *Phone Message Document Contains Addenda Addendum by KIKE REEDER LPN on January 07, 2016 13:23:47 CDT Called and informed patient of his urine culture results. Please refer to message dated 01/04/2016 for more information. From: AMNA GAY (RENETTA [employer] Technical [employer]) To: RENETTA Molina Nurse; Sent: 01/07/2016 13:05:56 CDT Subject: *Phone Message Caller is: ( x) Patient ( ) Mother ( ) Father ( ) Spouse ( ) Daughter ( ) Son ( ) Pharmacy ( ) Other: Physician: Patient MRN #: Reason for Call: Returning call to Kike. Please call him back at [phone] Message: Advice/Action: Source used: ( ) Verbalizes understanding [...] back cell phone number ( ) [facility] Document Id: [id number] documented in this encounter Plan of Treatment Upcoming Encounters Date Type Specialty Care Team Description 04/23/2022 Office Visit Cardiovascular Disease Blas Peck M.D. [address] [place] [address] [phone] ([id number] [id number]) documented as of this encounter Visit Diagnoses Not on filedocumented in this encounter
--- OUTSIDE RECORDS SUMMARY | 2022-02-17 12:27 | XMS_ITS | Encounter Summary ---
:1950 Author Organization [facility] Address [address] [place] [address] Care Team Providers Name Role Phone Unavailable Primary Care Provider Unavailable Encounter Details Date Type Department Care Team Description 04/10/2016 Hospital Encounter HX [facility] Ronald Leong M.D. [address] [phone] Social History Tobacco Use Types Packs/Day [...] Sign Reading Time Taken Comments Blood Pressure 114/67 04/10/2016 1:33 PM HYPERION ESSBASE DEVELOPER Pulse 71 04/10/2016 1:33 PM HYPERION ESSBASE DEVELOPER Temperature - - Respiratory Rate 16 04/10/2016 1:33 PM HYPERION ESSBASE DEVELOPER Oxygen Saturation - - Inhaled Oxygen Concentration - - Weight 97.6 kg (215 lb 2.7 oz) 04/10/2016 1:33 PM HYPERION ESSBASE DEVELOPER Height 172 cm (5' 7.72) 04/10/2016 1:33 PM HYPERION ESSBASE DEVELOPER Body Mass Index 32.99 04/10/2016 1:33 PM HYPERION ESSBASE DEVELOPER documented in this encounter Medications at Time [...] encounter Progress Notes Ronald Molina M.D. - 04/10/2016 1:12 PM CST [id number] CHIEF COMPLAINT/REASON FOR VISIT 1. Followup on chronic medical problems. 2. Discuss test results. HISTORY OF PRESENT ILLNESS Elian is a 66-year-old male who presents to the clinic today for a followup from 02/14/2016. We discussed test results from 04/09/2016. Results were remarkable for hemoglobin A1c 7.0. His hemoglobin A1c improved from 7.9 to 7.0. He has been taking Metformin twice a day. He checks his blood sugar twicea day, ranging from 100-200. It was [address] Patient saw Dr. Beto Mcdermott, Urologist on 02/18/2016 for lower urinary tract symptoms. He was placed on Levaquin for chronic prostatitis. He followed with Dr. Mcdermott on 03/17/2016 with improvement in symptoms. He was tapered off Tamsulosin. Elian followed with Rhona Holder CNP on 03/26/2016. His Tolterodine was stopped and Oxybutynin 5 mg daily was started. He presented to [facility] ER on 02/20/2016 for dizziness and nausea. Labs were remarkable for glucose 177, lactate 2.0, lipase 118, and WBC 10.7. He was treated with IV access, IV fluids, and Zofran. He had episode of vomiting and diarrhea and given Ativan. He saw Dr. Adarsh Reyez ENT on 02/27/2016 for nasal congestion. A CT of the nose and sinuses was done on 03/05 and showed no evidence for acute or chronic sinusitis. No evidence for polyps or retention cysts. The ostiomeatal complexes are patent and clear. He followed with Dr. Reyez and surgical options were deferred at that time. Flonase was recommended. Today, he notices that he has small bowel movements since his prostate rectal exam with Dr. Mcdermott. He continues to have bloating, gas, and pressure in his lower abdomen. It feels like a tear. His last colonoscopy was on 07/27/2015. He had four polyps and need to repeat in 2019. He has history of constipation. Patient had questions about his blood pressure. It is 114/67 today. He was concerned it was too low.He occasionally has dizziness and lightheadedness and describes it as a funny feeling. At those times, his blood sugar was around 126. Additionally, he has no ambition and needs to force himself to getthings done. I reviewed and updated his medication list. [...] by mouth daily in the morning. Metformin 850 mg by mouth daily in the morning. Metoprolol tartrate 25 mg by mouth twice a day. Oxybutynin 5 mg by mouth daily. Ranitidine 150 mg by mouth twice a day. ALLERGIES Bactrim causing swelling. SYSTEMS REVIEW Please see HPI for pertinent positives, otherwise rest of ROS negative. PAST MEDICAL/SURGICAL HISTORY Reviewed and updated as per the EHR on 04/10/2016. PREVENTIVE SERVICES Reviewed and updated as per the EHR on 04/10/2016. SOCIAL HISTORY Reviewed and updated as per the EHR on 04/10/2016. FAMILY HISTORY Reviewed and updated as per the EHR on 04/10/2016. VITAL SIGNS HEIGHT: 172 cm. WEIGHT: 97.6 kg. BMI: 32.99 kg/m2. TEMP: 37.2 Deg C. PULSE: 71 /min. RESP: 16 /min. SYSTOLIC: 114 mmHg. DIASTOLIC: 67 mmHg. PHYSICAL EXAMINATION GENERAL: Patient is sitting. No distress. Able to talk without interruption. ABDOMEN: Moves with respiration. Bowel sounds present. Soft. No rebound tenderness, guarding, or rigidity. No organomegaly. Ventral hernia noted. SPINE: No scoliosis or kyphosis. No spinous tenderness or mass. EXTREMITIES: No clubbing, cyanosis, edema, infection, or calf tenderness. IMPRESSION/REPORT/PLAN 1. Suprapubic abdominal pain. It has gradually worsened. It could be due to constipation. There was no acute abdomen clinically. His colonoscopy in July 2015 showed polyps. After discussion, it was decided to schedule CT of the abdomen/pelvis without and with IV contrast at [facility]. He needs to hold Metformin [address] scan. He will return the following day after CT to recheck BMP. If rechecked creatinine is good, he can restart Metformin. 2. Chronic prostatitis with BPH. He was advised to finish Levaquin. Continue Oxybutynin 5 mg daily. He will follow with urology on 04/21/2016 and follow their recommendations. 3. Chronic rhinitis with postnasal drip. He saw ENT. He did not want sinus surgery at that time. Prescription was refilled for Atrovent. 4. Diabetes mellitus type 2 with neuropathy. It is improved. Hemoglobin A1c was 7.0% on 04/09/2016. He was advised to continue current ADA diet, regular exercise, and current medication. Need to monitor blood sugar regularly. Self- management goals of diabetes mellitus were reviewed. Need to check hemoglobin A1c again in 3 months. 5. Hyponatremia. Patient is asymptomatic. We will check electrolytes and renal function after CT scan. 6. Benign essential hypertension. Blood pressure is lower normal range. He has occasional dizziness.We will decrease Lisinopril to 2.5 mg daily in the morning. Need to continue sodium controlled diet.Blood pressure goal is less than 140/90 mmHg. Need to continue cardiovascular risk factors modification. 7. Discussed test results. I reviewed test results from 04/09/2016. All questions were answered. 8. Renew medications. The following medications were renewed: Atrovent. The patient will return to the clinic after abdomen/pelvis CT. This document serves as a record of services personally performed by Dr. Ronald Molina. It was created on their behalf by Balaji Larios, a trained medical collections representative. The creation of this record is based on the scribe's personal observations and the provider's statements to them. This document has been checked and approved by the attending provider. Ronald Molina M.D./melissa Electronically Signed By: RONALD MOLINA MD On: 05/02/2016 10:49 AM Modified by and Electronically Signed by: RONALD MOLINA MD On: 05/02/2016 10:49 AM Source: [facility] MHSDOLBEYNONRADSYS Document Id: [id number] RION ESSBASE DEVELOPER documented in this encounter Miscellaneous Notes Miscellaneous - Ruben Casanova L.P.N. - 04/10/2016 2:47 PM CST *General Message Document Contains Addenda Addendum by KIKE REEDER LPN on April 15, 2016 10:48:54 HYPERION ESSBASE DEVELOPER Order completed and faxed to [facility]. They will contact patient directly with appointment information. Addendum by DES GRAHAM on April 15, 2016 08:42:04 HYPERION ESSBASE DEVELOPER From: DES GRAHAM ([facility] Sales Commissions Analyst/Radiology Outside [facility]) To: RENETTA Molina Nurse; Sent: 04/15/2016 08:42:04 HYPERION ESSBASE DEVELOPER Subject: RE: *General Message No auth needed From: RUBEN CASANOVA LPN (RENETTA Molina Nurse) To: [facility] Sales Commissions Analyst/Radiology [facility]; Sent: 04/10/2016 14:47:17 HYPERION ESSBASE DEVELOPER Subject: *General Message Patient referred to Provider or Facility: [facility] Ordering Provider: Dr. Molina Appointment date (if known): Imaging Service Ordered: (list CPT code or body part to be scanned): _W/ Contrast _W/O Contrast X_W/O Contrast followed by with X_CT/CTA - abdomen and pelvis _MRI _MRA _PET _Nuclear Cardiology Study _Other (list): Diagnosis ( CPT code if Known):abdominal pain - lower abdomen and suprapubic area Injury Related: If yes, date and time of Injury: Source: [facility] POWERCHART Document Id: [id number] Miscellaneous - Ronald Molina M.D. - 04/10/2016 2:43 PM CST Ambulatory Patient Summary [address] [id number] Visit Information Name: YOLY DAWKINSALYSSA HERNANDEZ [facility] Number: [id number] Current Date: 04/10/2016 14:43:17 Physicians Attending Provider: RONALD MOLINA MD Primary [...] nasal (fluticasone 50 mcg/inh nasal spray) 2 [place](s), Nostrils(Both), once a day ipratropium nasal (Atrovent 21 mcg/inh nasal spray) 2 [place](s), Nostrils(Both), three times a day asneeded for Nasal congestion in each nostril / For nasal congestion. This is a CHANGE Routed to [address] [address] lisinopril (lisinopril 2.5 mg oral tablet) 1 Tablet(s), Oral, once a day (in the morning) For high blood pressure and kidney protection. New Routed to [address] [address] metFORMIN (metFORMIN 850 mg oral tablet) 1 Tablet(s), Oral, two times a day with meals Dose increased on 02/14/2016. / For diabetes. metoprolol (metoprolol tartrate 25 mg oral tablet) 1 Tablet(s), Oral, two times a day For high bloodpressure. oxybutynin (oxybutynin 5 mg/24 hours oral tablet, extended release) 1 Tablet(s), Oral, once a day raNITIdine (raNITIdine 150 mg oral tablet) 1 Tablet(s), Oral, two times a day For stomach. Stop Taking the Following Medications: tamsulosin (tamsulosin 0.4 mg oral capsule) Medication list as of 04-10-16 14:43 Attention: If you have any medications [...] Electronically Signed By: RONALD MOLINA MD Signed On:10-APR-2016 14:43:13 Your Allergies & Intolerances Substance Reaction Symptoms [...] Upcoming Appointments Date Time Location Provider 04/21/2016 08:45 [facility] Urology Sabrina Valadez CNP [...] if you dont have one. Go to [email or web address] and click on Create Your Account. Then, follow the directions to complete the online form. Youll be asked for your [facility] number which you can find at the top of this document. Your Goals/Additional instructions: Source: [facility] POWERCHART Document Id: [id number] RION ESSBASE DEVELOPER Miscellaneous - Ronald Molina M.D. - 04/10/2016 2:43 PM CST Ambulatory Discharge Medication List [address] [id number] Visit Information Name: ELIAN DAWKINS [facility] Number: [id number] Current Date: 04/10/2016 14:43:16 Attending Provider: RONALD MOLINA MD Primary Care [...] nasal (fluticasone 50 mcg/inh nasal spray) 2 [place](s), Nostrils(Both), once a day ipratropium nasal (Atrovent 21 mcg/inh nasal spray) 2 [place](s), Nostrils(Both), three times a day asneeded for Nasal congestion in each nostril / For nasal congestion. This is a CHANGE Routed to [address] [address] lisinopril (lisinopril 2.5 mg oral tablet) 1 Tablet(s), Oral, once a day (in the morning) For high blood pressure and kidney protection. New Routed to [address] [address] metFORMIN (metFORMIN 850 mg oral tablet) 1 Tablet(s), Oral, two times a day with meals Dose increased on 02/14/2016. / For diabetes. metoprolol (metoprolol tartrate 25 mg oral tablet) 1 Tablet(s), Oral, two times a day For high bloodpressure. oxybutynin (oxybutynin 5 mg/24 hours oral tablet, extended release) 1 Tablet(s), Oral, once a day raNITIdine (raNITIdine 150 mg oral tablet) 1 Tablet(s), Oral, two times a day For stomach. Stop Taking the Following Medications: tamsulosin (tamsulosin 0.4 mg oral capsule) Medication list as of 04-10-16 14:43 Attention: If you have any medications [...] Electronically Signed By: RONALD MOLINA MD Signed On:10-APR-2016 14:43:13 Additional Information: Source: [facility] POWERCHART Document Id: [id number] RION ESSBASE DEVELOPER Miscellaneous - Ronald Molina M.D. - 04/10/2016 2:[address] abdomen and pelvis without and with IV contrast Document Contains Addenda Addendum by KIKE REEDER LPN on April 15, 2016 10:48:14 HYPERION ESSBASE DEVELOPER Spoke with: ( x ) Patient ( _ ) Parent ( _ ) Spouse ( _ ) Child ( ) Other: _ Call back telephone number: [phone] Reason for Call: -CT Scan Chief Complaint: Patient notified that the prior authorization has been okayed. Order completed and faxed to [facility]. They will contact patient to schedule the appointmentdirectly. Patient notified of instructions listed below in regards to his metformin. _ Patient/Caller response to Education/Information given: ( [...] language for Healthcare discussion: _ Was an demonstrator electric gas appliances used for this call? _ Other ( --_ ) Addendum by RUBEN CASANOVA LPN on April 10, 2016 14:48:04 HYPERION ESSBASE DEVELOPER PA sent for scan. From: RONALD MOLINA MD To: RENETTA Molina Nurse; Sent: 04/10/2016 14:31:33 HYPERION ESSBASE DEVELOPER ! Subject: Need CT abdomen and pelvis without and with IV contrast Actions: Notify patient- refer to General Message, Notify patient of Future Order He needs CT abdomen and pelvis without and with IV contrast. Please schedule at [facility]. Dx: Abdominal pain, lower abdomen & suprapubic area. He needs to hold Metformin [address] scan and he needs to come back following day after CT, to recheck BMP. If rechecked creatinine is good, he can restart Metformin Rx. Order in EHR. Source: [facility] POWERCHART Document Id: [id number] Miscellaneous - Ruben Casanova L.PMichelleNMichelle - 04/10/2016 1:33 PM CST Adult Manager Respiratory Care Intake/History Adult Manager Respiratory Care Intake/History Entered On: 04/10/2016 13:33 HYPERION ESSBASE DEVELOPER Performed On: 04/10/2016 13:33 HYPERION ESSBASE DEVELOPER by RUBEN CASANOVA LPN Intake Peripheral Pulse Rate : 71 /min Respiratory Rate : 16 /min Heart Rhythm : Regular Systolic Blood Pressure : 114 mmHg Diastolic Blood Pressure : 67 mmHg NIBP Mean : 83 mmHg BP Location : Left upper extremity Blood Pressure Cuff Size : Large RUBEN CASANOVA LPN - 04/10/2016 13:36 HYPERION ESSBASE DEVELOPER Chief Complaint : 1. 2 month follow up from 02/14/16 chronic medical problems 2. abdominal discomfort Temperature Core : 37.2 DegC(Converted to: 99.0 DegF) Height : 172 cm(Converted to: 5 ft 8 inch(es), 68 inch(es)) Actual Weight : 97.6 kg(Converted to: 215 lb 3 oz) Weight Source : Standing scale Dosing Weight Clinic : 97.6 kg Clinic BSA : 2.16 Body Mass Index : 32.99 kg/m2 RUBEN CASANOVA LPN - 04/10/2016 13:33 HYPERION ESSBASE DEVELOPER General Info Information Given By : Patient Preferred Communication Mode : Verbal, Written Languages : Yoruba Is Patient Female and 13-50 no hysterectomy : No RUBEN CASANOVA LPN - 04/10/2016 13:33 HYPERION ESSBASE DEVELOPER Subjective Pain Symptoms : Yes RUBEN CASANOVA LPN - 04/10/2016 13:33 HYPERION ESSBASE DEVELOPER Pain Scale Pain Scale Verbal 0-10 : Open RUBEN CASANOVA LPN - 04/10/2016 13:33 HYPERION ESSBASE DEVELOPER Pain Pain Assessment Grid Pain 1 Location : Abdomen RUBEN CASANOVA LPN - 04/10/2016 13:33 HYPERION ESSBASE DEVELOPER Dependent Habits Exposure to Tobacco Smoke : Other: Never Smoking Status : Never smoker Tobacco 2A : No Tobacco Use/Currently Using : No Tobacco Use/Last 30 Days : No Tobacco Use/Last 12 months : No RUBEN CASANOVA LPN - 04/10/2016 13:33 HYPERION ESSBASE DEVELOPER Source: [facility] POWERCHART Document Id: [id number] HYPERION ESSBASE DEVELOPER!38 RION ESSBASE DEVELOPER documented in this encounter Plan of Treatment Upcoming Encounters Date Type Specialty Care Team Description 04/23/2022 Office Visit Cardiovascular Disease Blas Peck M.D. [address] [place] [address] [phone] (Wo rk) documented as of this encounter Visit Diagnoses Not on filedocumented in this encounter
--- OUTSIDE RECORDS SUMMARY | 2022-02-17 12:27 | XMS_ITS | Encounter Summary ---
:1950 Author Organization [facility] Address [address] [place] [address] Care Team Providers Name Role Phone Unavailable Primary Care Provider Unavailable Encounter Details Date Type Department Care Team Description 02/14/2016 Hospital Encounter HX NO MAPPING Franco Molina M.D. [address] [facility] [address] [phone] Social History Tobacco Use Types Packs/Day [...] tablet daily. 0 07/09/2020 tablet blood-glucose meter [facility] Dispense glucose 0 05/2308/11/2018 meter, test strips and lancets covered by the patient insurance. Test 2 times per day. documented as of this encounter Miscellaneous Notes Miscellaneous - Conversion, Historical Provider Ser - 02/14/2016 11:59 PM CDT Coding Summary-Paper Based CODING DATE: 02/24/2016 FINAL [facility] STATUS: * Discharged to Home or Self Care PAYOR: Commercial Insurance ADMIT DX: REASON FOR VISIT DX: FINAL DX: PRINCIPAL: R30.0 Dysuria SECONDARY: PROCEDURES DOCTOR NAME DATE NOTE: The code number assigned matches the documented diagnosis and / or procedure in the patient's chart. However, the narrative phrase printed from the coding software may appear abbreviated, or result in slightly different terminology. Coded By: NETO SANCHEZ Date Saved: 02/24/2016 07:51 am Source: [facility] oDeskCHART Document Id: [id number] documented in this encounter Plan of Treatment Upcoming Encounters Date Type Specialty Care Team Description 04/23/2022 Office Visit Cardiovascular Disease Blas Peck M.D. [address] [place] [address] [phone] (Wo rk) documented as of this encounter Visit Diagnoses Not on filedocumented in this encounter
--- OUTSIDE RECORDS SUMMARY | 2022-02-17 12:27 | XMS_ITS | Encounter Summary ---
:1950 Author Organization [facility] Address [address] [place] [address] Care Team Providers Name Role Phone Unavailable Primary Care Provider Unavailable Encounter Details Date Type Department Care Team Description 01/09/2016 Hospital Encounter HX [facility] MyrElva conrad, STRUCTURAL STEEL ENGINEER, C.N.P. [address], [place] [address] (Wo rk) Social History Tobacco [...] Sign Reading Time Taken Comments Blood Pressure 128/68 01/09/2016 10:48 AM CDT Pulse 84 01/09/2016 10:48 AM CDT Temperature - - Respiratory Rate 16 01/09/2016 10:48 AM CDT Oxygen Saturation - - Inhaled Oxygen Concentration - - Weight 98.2 kg (216 lb 7.9 oz) 01/09/2016 10:48 AM CDT Height 172 cm (5' 7.72) 01/09/2016 10:48 AM CDT Body Mass Index 33.19 01/09/2016 10:48 AM CDT documented in this encounter Medications at Time of Discharge Medication Sig Dispensed Refills Start Date End Date aspirin 81 mg chewable Chew 1 tablet daily. 0 07/09/2020 tablet blood-glucose meter [facility] [place] Dispense glucose 0 05/2308/11/2018 meter, test strips and lancets covered by the patient insurance. Test 2 times per day. documented as of this encounter Progress Notes Vicente Ziegler APRN, C.NMichelleP. - 01/09/2016 11:05 AM CDT Clinic Full Note CHIEF COMPLAINT/REASON FOR VISIT Chest congestion with cough. Unable to bring up phlegm. Both eyes are red, mattery and started yesterday. Has a slight sore throat. Started 10 days ago. HISTORY OF PRESENT ILLNESS Elian states he has had sinus congestion with postnasal drip and cough for the past week. Has had low grade fever and scratchy throat. Glands are swollen and tender. Eyes were mattered shut this morning. Blood pressure is well controlled on lisinopril. MEDICATIONS aspirin 81 mg oral tablet, 81 mg, 1 tab(s), PO, Daily atorvastatin 20 mg oral tablet, 20 mg, 1 tab(s), PO, Bedtime FLUoxetine 20 mg oral tablet, 40 mg, 2 tab(s), PO, Daily fluticasone 50 mcg inhalation powder, one spray in each nostril, Inhalation, Daily hydrOXYzine, 25 mg, take one to two capsules by mouth every 8 hours as needed for anxiety, PO, PRN lisinopril 5 mg oral tablet, 5 mg, 1 tab(s), PO, Daily metFORMIN 850 mg oral tablet, 850 mg, 1 tab(s), PO, Daily AM metoprolol tartrate 25 mg oral tablet, 25 mg, 1 tab(s), PO, 2xDay tamsulosin 0.4 mg oral capsule, 0.8 mg, 2 cap(s), PO, Daily tolterodine 2 mg oral tablet, 2 mg, 1 tab(s), PO, 2xDay ALLERGIES Bactrim (swelling) PAST MEDICAL HISTORY Chronic Anxiety NOS Apnea Sleep Obstructive (ОЛЬГА) ??? Benign Prostatic Hyperplasia (BPH) Hypertrophy W Obstruction Body Mass Index (BMI) 33.0-33.9 Adult Congestion Nasal Coronary Artery Disease (CAD) NOS Coronary Of Arterial Bypass Graft (CABG) x 4 S/P Pers Hx DM2 DM2 Neuropathy Hay Fever Hyperlipidemia NOS Hypertension (HTN) Essential Benign Irritable Bowel Syndrome (IBS) Numbness NOS Panic Disorder Without Agoraphobia Polyp Colon Pers Hx Rhinitis Allergic NOS Historical No historical problems PROCEDURES/SURGICAL HISTORY Echocardiogram (10/26/2015), Colonoscopy (07/27/2015), CABG x 4 - Coronary artery bypass grafts x 4 (05/28/2014), Cholecystectomy, Repair of inguinal hernia. SOCIAL HISTORY Date Time: 01/09/2016 10:48 Tobacco: Smoking Status: Never smoker Exposure: Other: Never Alcohol: Use: No Results Found Recreational Drugs: Use: No Results Found Type: No Results Found FAMILY HISTORY Mother:Positive: CA - Cancer of colon; Cataract; Diabetes mellitus; Hypertension; IBS - Irritable bowel syndrome Father:Positive: Deep vein thrombosis Grandfather:Positive: IBS - Irritable bowel syndrome HEALTH MAINTENANCE Up to date. SYSTEMS REVIEW Positive for that mentioned in the History of Present Illness and Past Medical History. All other systems were reviewed and were negative. VITAL SIGNS T: 37.4 ??C (Core) HR: 84 RR: 16 BP: 128 / 68 SpO2: 98% HT: 172 cm WT: 98.2 kg BMI: 33.19 PHYSICAL EXAMINATION GENERAL: Well-developed, well-nourished, in no acute distress. SKIN: Warm and dry. HEENT: PERRLA, EOMI, fundi sharp discs, conjunctiva erythematous with mattery discharge on lower lids and lashes. TMs clear. Throat clear. Nares congested with yellow mucus, tenderness over the maxillary sinuses. NECK: Supple. Mild anterior cervical lymphadenopathy. No thyromegaly. HEART: Regular rate and rhythm. S1, S2. No murmur. LUNGS: Clear to auscultation. No wheezes or rales. ABDOMEN: Soft, nontender. No hepatosplenomegaly. EXTREMITIES: Warm, dry. No peripheral edema. IMPRESSION/REPORT/PLAN Conjunctivitis Acute Armando Worsening, warm packs, polymyxin B-trimethoprim ophthalmic, 1 drop(s), Eyes(Both), q3hr, while awake, x 10 days. Good handwashing. Ordered: OV Est Pt Level 4 - 79598 - 25 min Hypertension (HTN) Essential Benign Well controlled, no change in medication. Ordered: OV Est Pt Level 4 - 63034 - 25 min Sinusitis Maxillary Take antibiotic as prescribed. Encourage fluids, acetaminophen or ibuprofen for fever and discomfort. Rest. Recheck if symptoms do not improve. Ordered: OV Est Pt Level 4 - 98973 - 25 min Orders: cefuroxime, 500 mg = 1 tab(s), PO, 2xDay, x 10 day(s), # 20 tab(s), 0 Refill(s), Acute, Pharmacy: [id number] polymyxin B-trimethoprim ophthalmic, 1 drop(s), Eyes(Both), q3hr, while awake, x 10 day(s), # 10 mL, 0 Refill(s), Acute, Pharmacy: [id number] Electronically Signed By: VICENTE ZIEGLER APRN, CNP On: 01/09/2016 11:18 AM Source: [facility] POWERCHART Document Id: [id number] documented in this encounter Nursing Notes Vicente Ziegler APRN, C.N.P. - 01/09/2016 11:00 AM CDT Ambulatory Patient Education The following Patient Education Materials have been given to the patient: Patient Education Materials: Ambulatory SINUSITIS, Abx Tx Ambulatory Sinusitis [Abx Tx] The sinuses are air-filled spaces within the bones of the face. They connect to the inside of the nose. Sinusitis is an inflammation of the tissue lining the sinus cavity. Sinus inflammation can occur during a cold or hay-fever (allergies to pollens and other particles in the air) and cause symptoms of sinus congestion and fullness. A sinus infection causes fever, headache and facial pain. There is usually green or yellow drainage from the nose or into the back of the throat (post-nasal drip). Antibiotics are prescribed to treat this condition. Home Care: ?? Drink plenty of water, hot tea, and other liquids to stay well hydrated. This thins the mucus andpromotes sinus drainage. ?? Apply heat to the painful areas of the face. Use a towel soaked in hot water. Or, marketing graphics specialist the shower and direct the hot spray onto your face. This is a good way to inhale warm water vapor and get heat on your face at the same time. (Cover your mouth and nose with your hands so you can still breathe as you do this.) ?? Use a vaporizer with products such as Vicks VapoRub (contains menthol) at night. Suck on peppermint, menthol or eucalyptus hard candies during the day. ?? An expectorant containing guaifenesin (such as Robitussin), helps to thin the mucus and promote drainage from the sinuses. ?? Zolu-gui-oavjzob decongestants may be used unless a similar medicine was prescribed. Nasal sprayswork the fastest. Use one that contains phenylephrine (Gasper-synephrine, Sinex and others) or oxymetazoline (Afrin). First blow the nose gently to remove mucus, then apply the drops. Do not use these medicines more often than directed on the label or for more than three days or symptoms may worsen. You may also use tablets containing pseudoephedrine (Sudafed). Many sinus remedies combine ingredients, which may increase side effects. Read the labels or ask the pharmacist for help. NOTE: Persons with high blood pressure should not use decongestants. They can raise blood pressure. ?? Antihistamines are useful if allergies are a cause of your sinusitis. The mildest one is chlorpheniramine (available without a prescription). The dose for adults is 8-12mg three times a day. [NOTE: Do not use chlorpheniramine if you have glaucoma or if you are a man with trouble urinating due to anenlarged prostate.] Claritin (loratidine) is an antihistamine that causes less drowsiness and is a good alternative for daytime use. ?? Do not use nasal rinses or irrigation during an acute sinus infection, unless advised by your doctor. Rinsing may spread the infection to other sinuses. ?? You may use acetaminophen (Tylenol) or ibuprofen (Motrin, Advil) to control pain, unless another pain medicine was prescribed. [ NOTE: If you have chronic liver or kidney disease or ever had a stomach ulcer, talk with your doctor before using these medicines.] (Aspirin should never be used in anyone under 18 years of age who is ill with a fever. It may cause severe liver damage.) ?? Finish the full course, even if you are feeling better after a few days. Follow Up with your doctor or this facility in one week or as instructed by our staff if not improving. Get Prompt Medical Attention if any of the following occur: ?? Facial pain or headache becomes more severe ?? Stiff neck ?? Unusual drowsiness or confusion, or not acting like your normal self ?? Swelling of the forehead or eyelids ?? Vision problems including blurred or double vision ?? Fever of 100.4??F (38??C) or higher, or as directed by your healthcare provider ?? Seizure ?? [id number], [place] [address]. All rights reserved. This information is not intended as a substitute for professional medical care. Always follow your healthcare professional's instructions. This document has images extracted. Please consider using [employer] for all your patient education needs. Source: [facility] POWERCHART Document Id: [id number] documented in this encounter Miscellaneous Notes Miscellaneous - Vicente Ziegler APRN, C.N.P. - 01/09/2016 11:00 AM CDT Ambulatory Patient Summary [address] [id number] Visit Information Name: ELIAN DAWKINS [facility] Number: [id number] Current Date: 01/09/2016 11:00:07 Physicians Attending Provider: VICENTE ZIEGLER APRN [facility] Primary Care Provider: RONALD MOLINA MD ELIAN [...] times a day x 10 day(s) New Routedto [address] [id number] FLUoxetine (FLUoxetine 20 mg oral tablet) 2 Tablet(s), Oral, once a day fluticasone (fluticasone 50 mcg inhalation powder) one spray in each nostril, Inhalation, once a day hydrOXYzine (hydrOXYzine) 25 mg, Oral, as needed for Anxiety take one to two capsules by mouth every8 hours as needed for anxiety lisinopril (lisinopril 5 mg oral tablet) 1 Tablet(s), Oral, once a day metFORMIN (metFORMIN 850 mg oral tablet) 1 Tablet(s), Oral, once a day (in the morning) metoprolol (metoprolol tartrate 25 mg oral tablet) 1 Tablet(s), Oral, two times a day polymyxin B-trimethoprim ophthalmic (Polytrim 10,000 units-1 mg/mL ophthalmic solution) 1 Drops, Eyes(Both), every 3 hours x 10 day(s) while awake New Routed to [address] [address] tamsulosin (tamsulosin 0.4 mg oral capsule) 2 cap, Oral, once a day tolterodine (tolterodine 2 mg oral tablet) 1 Tablet(s), Oral, two times a day Stop Taking the Following Medications: Medication list as of 01-09-16 11:00 Attention: If you have any medications at home that are not on this list, DO NOT take them until youcontact your provider for clarification. Give a copy of your medication list to your primary care provider. Update your medication list any time medications or doses are changed and carry your medication list at all times in case of emergency. Electronically Signed By: VICENTE ZIEGLER APRN, CNP Signed On:09-JAN-2016 10:59:55 Your Allergies & Intolerances Substance Reaction Symptoms [...] Your Upcoming Appointments Date Time Location Provider 01/17/2016 15:00 [facility] Ronald Molina MD 02/18/2016 10:15 [facility] Beto Mcdermott MD Attention: Contact your local Clinic if further appointment detail needed. Sinusitis [Abx Tx] The sinuses are air-filled spaces within the bones of the face. They connect to the inside of the nose. Sinusitis is an inflammation of the tissue lining the sinus cavity. Sinus inflammation can occur during a cold or hay-fever (allergies to pollens and other particles in the air) and cause symptoms of sinus congestion and fullness. A sinus infection causes fever, headache and facial pain. There is usually green or yellow drainage from the nose or into the back of the throat (post-nasal drip). Antibiotics are prescribed to treat this condition. Home Care: ?? Drink plenty of water, hot tea, and other liquids to stay well hydrated. This thins the mucus andpromotes sinus drainage. ?? Apply heat to the painful areas of the face. Use a towel soaked in hot water. Or, marketing graphics specialist the shower and direct the hot spray onto your face. This is a good way to inhale warm water vapor and get heat on your face at the same time. (Cover your mouth and nose with your hands so you can still breathe as you do this.) ?? Use a vaporizer with products such as [employer] VapoRub (contains menthol) at night. Suck on peppermint, menthol or eucalyptus hard candies during the day. ?? An expectorant containing guaifenesin (such as Robitussin), helps to thin the mucus and promote drainage from the sinuses. ?? Nlpm-ftl-lvombij decongestants may be used unless a similar medicine was prescribed. Nasal sprayswork the fastest. Use one that contains phenylephrine (Gasper-synephrine, Sinex and others) or oxymetazoline (Afrin). First blow the nose gently to remove mucus, then apply the drops. Do not use these medicines more often than directed on the label or for more than three days or symptoms may worsen. You may also use tablets containing pseudoephedrine (Sudafed). Many sinus remedies combine ingredients, which may increase side effects. Read the labels or ask the pharmacist for help. NOTE: Persons with high blood pressure should not use decongestants. They can raise blood pressure. ?? Antihistamines are useful if allergies are a cause of your sinusitis. The mildest one is chlorpheniramine (available without a prescription). The dose for adults is 8-12mg three times a day. [NOTE: Do not use chlorpheniramine if you have glaucoma or if you are a man with trouble urinating due to anenlarged prostate.] Claritin (loratidine) is an antihistamine that causes less drowsiness and is a good alternative for daytime use. ?? Do not use nasal rinses or irrigation during an acute sinus infection, unless advised by your doctor. Rinsing may spread the infection to other sinuses. ?? You may use acetaminophen (Tylenol) or ibuprofen (Motrin, Advil) to control pain, unless another pain medicine was prescribed. [ NOTE: If you have chronic liver or kidney disease or ever had a stomach ulcer, talk with your doctor before using these medicines.] (Aspirin should never be used in anyone under 18 years of age who is ill with a fever. It may cause severe liver damage.) ?? Finish the full course, even if you are feeling better after a few days. Follow Up with your doctor or this facility in one week or as instructed by our staff if not improving. Get Prompt Medical Attention if any of the following occur: ?? Facial pain or headache becomes more severe ?? Stiff neck ?? Unusual drowsiness or confusion, or not acting like your normal self ?? Swelling of the forehead or eyelids ?? Vision problems including blurred or double vision ?? Fever of 100.4?F (38?C) or higher, or as directed by your healthcare provider ?? Seizure ?? [id number] [facility], [address] [place] [address], [place] [address]. All rights reserved. This information is not [...] dont have one. Go to [email or web address] and click on Create Your Account. Then, follow the directions to complete the online form. Youll be asked for your [facility] number which you can find at the top of this document. Your Goals/Additional instructions: This document has images extracted. Please consider using [employer] for all your patient education needs. Source: [facility] POWERCHART Document Id: [id number] Miscellaneous - Vicente Ziegler APRN, C.N.P. - 01/09/2016 11:00 AM CDT Ambulatory Discharge Medication List [address] [id number] Visit Information Name: ELIAN DAWKINS [facility] Number: [id number] Visit Date: 01/09/2016 11:00:06 Attending Provider: VICENTE ZIEGLER APRN [facility] Primary Care Provider: RONALD MOLINA MD MACKMirella ELIAN HERNANDEZ has been given the following [...] times a day x 10 day(s) New Routedto [address] [id number] FLUoxetine (FLUoxetine 20 mg oral tablet) 2 Tablet(s), Oral, once a day fluticasone (fluticasone 50 mcg inhalation powder) one spray in each nostril, Inhalation, once a day hydrOXYzine (hydrOXYzine) 25 mg, Oral, as needed for Anxiety take one to two capsules by mouth every8 hours as needed for anxiety lisinopril (lisinopril 5 mg oral tablet) 1 Tablet(s), Oral, once a day metFORMIN (metFORMIN 850 mg oral tablet) 1 Tablet(s), Oral, once a day (in the morning) metoprolol (metoprolol tartrate 25 mg oral tablet) 1 Tablet(s), Oral, two times a day polymyxin B-trimethoprim ophthalmic (Polytrim 10,000 units-1 mg/mL ophthalmic solution) 1 Drops, Eyes(Both), every 3 hours x 10 day(s) while awake New Routed to [address] [id number] tamsulosin (tamsulosin 0.4 mg oral capsule) 2 cap, Oral, once a day tolterodine (tolterodine 2 mg oral tablet) 1 Tablet(s), Oral, two times a day Stop Taking the Following Medications: Medication list as of 01-09-16 11:00 Attention: If you have any medications at home that are not on this list, DO NOT take them until youcontact your provider for clarification. Give a copy of your medication list to your primary care provider. Update your medication list any time medications or doses are changed and carry your medication list at all times in case of emergency. Electronically Signed By: VICENTE ZIEGLER APRN HABILITATION TRAINING SPECIALIST Signed On:09-JAN-2016 10:59:55 Additional Information: Source: [facility] POWERCHART Document Id: [id number] Miscellaneous - Libertad Nance L.P.N. - 01/09/2016 10:48 AM CDT Adult X Ray Equipment Mechanic Intake/History Adult X Ray Equipment Mechanic Intake/History Entered On: 01/09/2016 10:51 CDT Performed On: 01/09/2016 10:48 CDT by LIBERTAD NANCE LPN Intake Chief Complaint : Chest congestion with cough. Unable to bring up phlegm. Both eyes are red, matteryand started yesterday. Has a slight sore throat. Started 10 days ago. Temperature Core : 37.4 DegC(Converted to: 99.3 DegF) Peripheral Pulse Rate : 84 /min Respiratory Rate : 16 /min Heart Rhythm : Regular Systolic Blood Pressure : 128 mmHg Diastolic Blood Pressure : 68 mmHg NIBP Mean : 88 mmHg BP Location : Right upper extremity Blood Pressure Cuff Size : Regular SpO2 : 98 % Oxygen Therapy : Room air Height : 172 cm(Converted to: 5 ft 8 inch(es), 68 inch(es)) Actual Weight : 98.2 kg(Converted to: 216 lb 8 oz) Weight Source : Standing scale Dosing Weight Clinic : 98.2 kg Clinic BSA : 2.17 Body Mass Index : 33.19 kg/m2 LIBERTAD NANCE LPN - 01/09/2016 10:48 CDT General Info Information Given By : Patient Preferred Communication Mode : Verbal Languages : Serbian Is Patient Female and 13-50 no hysterectomy : LIBERTAD Love LPN - 01/09/2016 10:48 CDT Subjective Pain Symptoms : LIBERTAD Love LPN - 01/09/2016 10:48 CDT Dependent Habits Exposure to Tobacco Smoke : Other: Never Smoking Status : Never smoker Tobacco 2A : No Tobacco Use/Currently Using : No Tobacco Use/Last 30 Days : No Tobacco Use/Last 12 months : LIBERTAD Love LPN - 01/09/2016 10:48 CDT Source: [facility] Document Id: [id number]!34 documented in this encounter Plan of Treatment Upcoming Encounters Date Type Specialty Care Team Description 04/23/2022 Office Visit Cardiovascular Disease Blas Peck M.D. [address] [place], [place] [address], [place] [phone] (Wo rk) documented as of this encounter Visit Diagnoses Not on filedocumented in this encounter
--- OUTSIDE RECORDS SUMMARY | 2022-02-17 12:27 | XMS_ITS | Encounter Summary ---
:1950 Author Organization [facility] Address [address] [place] [address] Care Team Providers Name Role Phone Unavailable Primary Care Provider Unavailable Encounter Details Date Type Department Care Team Description 04/09/2016 Hospital Encounter HX [facility] Franco Molina M.D. [address] [facility], [facility] [address] [phone] Social History Tobacco Use Types Packs/Day [...] - - Height 172 cm (5' 7.72) 04/09/2016 9:46 AM SLICE PLUG CUTTER OPERATOR Body Mass Index - - documented in [...] daily. spray documented as of this encounter Plan of Treatment Upcoming Encounters Date Type Specialty Care Team Description 04/23/2022 Office Visit Cardiovascular Disease Blas Peck M.D. [address] [place] [phone] (Wo rk) documented as of this encounter Procedures Procedure Name Priority Date/Time Associated Comments Diagnosis ALANINE AMINOTRANSFERASE Routine 04/09/2016 10:01 Results for this (ALT), S/P AM SLICE PLUG CUTTER OPERATOR procedure are i n the results section. ASPARTATE Routine 04/09/2016 10:01 Results for this AMINOTRANSFERASE (AST), AM SLICE PLUG CUTTER OPERATOR proc edure are in S/P the results section. HEMOGLOBIN A1C, B Routine 04/09/2016 10:01 Result s for this AM SLICE PLUG CUTTER OPERATOR procedure are i n the results section. CREATINE KINASE (CK), S Routine 04/09/2016 10:01 Results for this AM SLICE PLUG CUTTER OPERATOR procedure are i n the results section. BASIC METABOLIC PANEL, Routine 04/09/2016 10:01 R esults for this S/P AM SLICE PLUG CUTTER OPERATOR procedure are i n the results section. documented in this encounter Results (ABNORMAL) Hemoglobin A1c (04/09/2016 10:01 AM SLICE PLUG CUTTER OPERATOR) P athologist Signature Hemoglobin A1c, 7.0 (H) <=5.6 A1C POWERCHART B Specimen (Source) Anatomical Collection Method Collection Time Re ceived Time Location / / Volume Laterality Blood 04/09/2016 10:01 AM SLICE PLUG CUTTER OPERATOR Franco Molina M.D. LAB BLOOD ADD-ON Performing Organization Address City/State/ZIP Code Phon e Number POWERCHART CK (Creatine Kinase) (04/09/2016 10:01 AM SLICE PLUG CUTTER OPERATOR) P athologist Signature Creatine Kinase 263 52 - 336 POWERCHART (CK), S IUL Specimen (Source) Anatomical Collection Method Collection Time Re ceived Time Location / / Volume Laterality Blood 04/09/2016 10:01 AM SLICE PLUG CUTTER OPERATOR Toreyunt Phyo M.D. LAB BLOOD ADD-ON Performing Organization Address City/State/ZIP Code Phon e Number POWERCHART (ABNORMAL) BMP (Basic Metabolic Panel) (04/09/2016 10:01 AM SLICE PLUG CUTTER OPERATOR) P athologist Signature Sodium, S 134 (L) 135 - 145 POWERCHART MMOLL Potassium, S 4.6 3.6 - 5.2 POWERCHART MMOLL Chloride, S 97 (L) 98 - 107 POWERCHART MMOLL CO2 Total 24 22 - 29 POWERCHART MMOLL BUN (Blood Urea 12 8 - 24 POWERCHART Nitrogen), S MGDL Creatinine 0.92 0.80 - POWERCHART 1.30 MGDL Calcium, Total, 9.8 8.8 - 10.3 POWERCHART S MGDL Anion Gap 13 7 - 15 POWERCHART MMOLL HXeGFR (MDRD) >60 >=60 POWERCHART [id number] eGFR >60 >=60 POWERCHART Black/ [id number] Lebanese Glucose 119 70 - 139 POWERCHART MGDL Specimen (Source) Anatomical Collection Method Collection Time Re ceived Time Location / / Volume Laterality Blood 04/09/2016 10:01 AM SLICE PLUG CUTTER OPERATOR Franco Molina M.D. LAB BLOOD ADD-ON Performing Organization Address City/State/ZIP Code Phon e Number POWERCHART AST (Aspartate Aminotransferase) (04/09/2016 10:01 AM SLICE PLUG CUTTER OPERATOR) Patholo gist Method Time Signature Aspartate 17 8 - 48 POWERCHART Aminotransferase UNITL (AST), S Specimen (Source) Anatomical Collection Method Collection Time Re ceived Time Location / / Volume Laterality Blood 04/09/2016 10:01 AM SLICE PLUG CUTTER OPERATOR Franco Molina M.D. LAB BLOOD ADD-ON Performing Organization Address City/State/ZIP Code Phon e Number POWERCHART ALT (Alanine Aminotransferase) (04/09/2016 10:01 AM SLICE PLUG CUTTER OPERATOR) P athologist Signature Alanine 8 7 - 55 POWERCHART Amniotransferas UNITL e, LD Specimen (Source) Anatomical Collection Method Collection Time Re ceived Time Location / / Volume Laterality Blood 04/09/2016 10:01 AM SLICE PLUG CUTTER OPERATOR Franco Molina M.D. LAB BLOOD ADD-ON Performing Organization Address City/State/ZIP Code Phon e Number POWERCHART documented in this encounter Visit Diagnoses Not on filedocumented in this encounter
--- OUTSIDE RECORDS SUMMARY | 2022-02-17 12:27 | XMS_ITS | Encounter Summary ---
:1950 Author Organization [facility] Address [address] [place] [address] Care Team Providers Name Role Phone Unavailable Primary Care Provider Unavailable Encounter Details Date Type Department Care Team Description 06/18/2016 Hospital Encounter HX [facility] Efraín Buckley M.D. [address] [place] [address] [phone] (Wo rk) Social History Tobacco [...] Sign Reading Time Taken Comments Blood Pressure 118/60 06/18/2016 1:58 PM CHEF PASSENGER VESSEL Pulse 68 06/18/2016 1:58 PM CHEF PASSENGER VESSEL Temperature - - Respiratory Rate - - Oxygen Saturation - - Inhaled Oxygen Concentration - - Weight - - Height 172 cm (5' 7.72) 06/18/2016 1:58 PM CHEF PASSENGER VESSEL Body Mass Index - - documented in [...] day. tablet documented as of this encounter Nursing Notes Monica Egan L.P.N. - 06/18/2016 2:17 PM CST No apt needed Pt left without being seeing as apt not needed per Dereje. Electronically Signed By: MONICA EGAN LPN On: 06/18/2016 02:19 PM Source: [email or web address] Document Id: [id number] PASSENGER VESSEL documented in this encounter Miscellaneous Notes Miscellaneous - Monica Egan L.P.N. - 06/18/2016 1:58 PM CST Adult Clinical Data Coordinator Intake/History Adult Clinical Data Coordinator Intake/History Entered On: 06/18/2016 14:02 CHEF PASSENGER VESSEL Performed On: 06/18/2016 13:58 CHEF PASSENGER VESSEL by MONCIA EGAN LPN Intake Temperature Core : 37.1 DegC(Converted to: 98.8 DegF) Peripheral Pulse Rate : 68 /min Systolic Blood Pressure : 118 mmHg Diastolic Blood Pressure : 60 mmHg NIBP Mean : 79 mmHg BP Location : Left upper extremity Blood Pressure Cuff Size : Regular MONICA EGAN LPN - 06/18/2016 14:02 CHEF PASSENGER VESSEL Chief Complaint : Recheck chronic rhinitis. Height : 172 cm(Converted to: 5 ft 8 inch(es), 68 inch(es)) MONICA EGAN LPN - 06/18/2016 13:58 CHEF PASSENGER VESSEL General Info Information Given By : Patient Languages : Telugu Is Patient Female and 13-50 no hysterectomy : No MONICA EGAN LPN - 06/18/2016 13:58 CHEF PASSENGER VESSEL Subjective Pain Symptoms : No MONICA EGAN LPN - 06/18/2016 13:58 CHEF PASSENGER VESSEL Dependent Habits Exposure to Tobacco Smoke : Other: Never Smoking Status : Never smoker Tobacco 2A : No Tobacco Use/Currently Using : No Tobacco Use/Last 30 Days : No Tobacco Use/Last 12 months : No Alcohol Use : Yes MONICA EGAN LPN - 06/18/2016 13:58 CHEF PASSENGER VESSEL Source: [facility] POWERCHART Document Id: [id number] CHEF PASSENGER VESSEL!9 PASSENGER VESSEL documented in this encounter Plan of Treatment Upcoming Encounters Date Type Specialty Care Team Description 04/23/2022 Office Visit Cardiovascular Disease Blas Peck M.D. [address] [place] [address] [phone] (Wo rk) documented as of this encounter Visit Diagnoses Not on filedocumented in this encounter
--- OUTSIDE RECORDS SUMMARY | 2022-02-17 12:27 | XMS_ITS | Encounter Summary ---
:1950 Author Organization [facility] Address [address] [place] [address] Care Team Providers Name Role Phone Unavailable Primary Care Provider Unavailable Encounter Details Date Type Department Care Team Description 01/03/2016 Hospital Encounter HX [facility] Ronald Leong M.D. [address] [phone] Social History Tobacco Use Types Packs/Day [...] Sign Reading Time Taken Comments Blood Pressure 125/83 01/03/2016 9:13 AM CDT Pulse 75 01/03/2016 9:13 AM CDT Temperature - - Respiratory Rate 16 01/03/2016 9:13 AM CDT Oxygen Saturation - - Inhaled Oxygen Concentration - - Weight 98.5 kg (217 lb 2.5 oz) 01/03/2016 9:13 AM CDT Height 172 cm (5' 7.72) 01/03/2016 9:13 AM CDT Body Mass Index 33.29 01/03/2016 9:13 AM CDT documented in this encounter Medications at Time of Discharge Medication Sig Dispensed Refills Start Date End Date aspirin 81 mg chewable Chew 1 tablet daily. 0 07/09/2020 tablet blood-glucose meter [facility] Dispense glucose 0 05/2308/11/2018 meter, test strips and lancets covered by the patient insurance. Test 2 times per day. documented as of this encounter Progress Notes Ronald Molina M.D. - 01/03/2016 8:42 AM CDT [id number] CHIEF COMPLAINT/REASON FOR VISIT Establish care. HISTORY OF PRESENT ILLNESS Elian is a 65-year-old male who presents to the clinic today to establish care. He moved to [place] in February 2015. He has seen several physicians. We need to get results from his previous doctor visits. His main complaint is a foul odor to his urine for the last 5 months. He urinates frequently. He denies pain with urination, but does have some lower abdominal pain. There is no hematuria. He goes to the bathroom 4-5 times a night some nights. He saw an urologist at [facility] for his prostate. Per the patient, he had ultrasound done. He is on Tolterodine and Tamsulosin. He does not sleep well at night because of a vein in his left foot, which he thinks is due to his diabetes. He has diabetes mellitus type 2 and is on Metformin. He used to be on insulin. He checks his blood sugar occasionally, most recent value 165. It occasionally is above 200. He thinks his last hemo globin A1c was around 8. He denies history of hepatitis or jaundice. Patient also has IBS. He denies any problems with bowel movement currently. He had colonoscopy on 07/27/2015 at [facility]. He has history of colon polyp. When he moved here, he was taking Xanax four times a day and then was stopped in June. He saw psychiatrist many years ago. He is on Hydroxyzine as needed for anxiety/panic attacks. He complains of phlegm in his chest. He attributes this to the humid weather. He feels that Fluticasone is not very helpful. Per the patient, he has history of hay fever. Patient knows he has obstructive sleep apnea, but has not had a sleep study to confirm this. He cancelled his sleep study because of urination frequency. Patient had cardiovascular consultation with Dr. Lakeshia Lucas at [facility] on 09/28/2015. He has coronary artery disease and underwent four-vessel CABG in May [address] [facility]. His most recent echocardiogram was done on 10/26/2015: 1. Transthoracic outreach echo interpretation. 2. [...] 21 mmHg (systolic blood pressure 110 mmHg). He denies history of heart attack. He has constant numbness in his left chest and shortness of breath with activities. He noticed numbness soon after heart surgery. He has been feeling fatigued and haslack of energy. It should be noted that he had cholecystectomy and bilateral hernia surgeries. There are no additional questions, concerns, or complaints. MEDICATIONS Aspirin 81 mg by mouth daily. Atorvastatin 20 mg by mouth at bedtime. Fluoxetine 40 mg by mouth daily. Fluticasone 50 mcg inhalation powder 1 spray both nostrils daily. Hydroxyzine 25 mg by mouth as needed for anxiety. Lisinopril 5 mg by mouth daily. Metformin 850 mg by mouth daily in the morning. Metoprolol tartrate 25 mg by mouth twice a day. Tamsulosin 0.8 mg by mouth daily. Tolterodine 2 mg by mouth twice a day. ALLERGIES Bactrim causing swelling. SYSTEMS REVIEW Please see HPI for pertinent positives, otherwise rest of ROS negative. PAST MEDICAL/SURGICAL HISTORY Diabetes mellitus type 2 with neuropathy. Hyperlipidemia. Panic disorder. Anxiety. Obstructive sleep apnea. Hypertension. Coronary artery disease. History of hay fever. Allergic rhinitis. Irritable bowel syndrome. BPH with obstruction. Nasal congestion. Numbness. Elevated BMI. History of colon polyp. Status post repair of bilateral inguinal hernia. Status post cholecystectomy. 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 Status post colonoscopy, 07/27/2015. PREVENTIVE SERVICES Colonoscopy: 07/27/2015. PSA: N/A. Pneumovax: 01/26/2012. Prevnar: N/A. Tetanus booster: 08/31/2015. Influenza: 12/13/2015. Zostavax: N/A. SOCIAL HISTORY He is and lives alone in [place]. He has three daughters. He is [place]. 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 He denies tobacco, drug, or alcohol abuse. FAMILY HISTORY Colon cancer in mother. Cataract in mother. Deep vein thrombosis in father. Diabetes mellitus in mother. Hypertension in mother. Irritable bowel syndrome in mother and grandfather. No family history ofprostate cancer. VITAL SIGNS HEIGHT: 172 cm. WEIGHT: 98.5 kg. BMI: 33.3 kg/m2. PULSE: 75 /min. RESP: 16 /min. SYSTOLIC: 125 mmHg. DIASTOLIC: 83 mmHg. PHYSICAL EXAMINATION GENERAL: Patient is sitting. No distress. Able to talk without interruption. SKIN: No rash, bruise, or nodules. Status post CABG scar and cholecystectomy scar. HEAD: No facial rash, asymmetry, or sinus tenderness. EYES: PERRLA. EOMI. No pallor, icterus, or conjunctivitis. Right eye is cloudy. ENT: No nasal congestion, discharge, or bleeding. There is no ear infection or discharge. No mastoidtenderness. Tongue is moist and midline. No oral lesions. LYMPH NODES: No cervical, supraclavicular, axillary, inguinal, or femoral lymphadenopathy. THYROID: No thyromegaly. No thyroid thrill or bruit. PERIPHERAL VESSELS: Good radial and femoral pulses except for decreased pedal pulses. HEART: No carotid bruit. No JVD. Regular rhythm. There is no S3, gallop, murmur, or thrill. LUNGS: Normal respiratory effort. Clear to auscultation. Normal percussion. ABDOMEN: Moves with respiration. Bowel sounds present. Soft. No rebound tenderness, guarding, or rigidity. No organomegaly. He has ventral hernia. RECTUM: Intact anal sphincter tone. No hemorrhoid or rectal mass. Stool guaiac negative. PROSTATE: No tenderness. Smooth surface. Firm in consistency. Slightly enlarged. GENITALIA: No urethral discharge. Normal testicles. No hydrocele or hernia. Questions of paraphimosis. SPINE: No scoliosis or kyphosis. No spinous tenderness or mass. JOINTS: No joint swelling or deformity. No decreased range of motion. EXTREMITIES: No clubbing, cyanosis, edema, infection, or calf tenderness. His feet are cold. There are calluses on the bottoms of his feet. GAIT: No abnormal gait. MENTAL: Alert and oriented x 3. Normal mood and affect. NEURO: Grossly nonfocal exam. Monofilament test done. Intact sensation except over callus. IMPRESSION/REPORT/PLAN 1. Foul urinary odor for 4 to 5 months with history of BPH. There was no hematuria. We will check UAwith microscopic and urine culture and treat with antibiotics if urine culture is positive. He needsto see urologist for further evaluation and management. He will continue current medication. 2. Diabetes mellitus type 2 with neuropathy. It is nor controlled. Per the patient, his last hemoglobin A1c was 8%. He was advised to continue current ADA diet, regular exercise, and current medication. Need to monitor blood sugar regularly. Self-management goals of diabetes mellitus were reviewed. Wewill check hemoglobin A1c today and every 3 months. 3. Anxiety with history of panic attacks. He will continue Hydroxyzine as needed. He needs to see psychiatrist for evaluation. 4. Benign essential hypertension. Blood pressure is controlled. He is stable from a cardiac standpoint. Need to continue sodium controlled diet and current medication. Blood pressure goal is less than 140/90 mmHg. Need to continue cardiovascular risk factors modification. 5. Chest numbness after CABG x 4 with underlying coronary artery disease. He is stable from a cardiac standpoint. There is no angina. Patient does not need to take Nitroglycerin. Need to continue current medications and cardiovascular risk factor modification. 6. Authorization to Disclose Protected Health Information. He declined signing authorization to disclose protected health information. Todays studies: B12 and Folate, BMP, CBC, CK, Hemoglobin A1c, HFP, PSA, TSH, UA with culture, and Abdomen x-ray. Patient will be notified with results & recommendations. The patient will return to the clinic in 2 weeks for followup. He needs to get a record release. Administrative Billing 45 minutes spent with greater than 50% counseling, coordination of care, answering the questions anddiscussing management of above medical problems. This document serves as a record of services personally performed by Dr. Ronald Molina. It was created on their behalf by Balaji Larios, a trained biomedical equipment technician. The creation of this record is based on the scribe's personal observations and the provider's statements to them. This document has been checked and approved by the attending provider. Ronald Molina M.D./melissa Electronically Signed By: RONALD MOLINA MD On: 01/20/2016 11:35 AM Modified by and Electronically Signed by: RONALD MOLINA MD On: 01/20/2016 11:35 AM Source: [facility] [email or web address] Document Id: [id number] documented in this encounter Nursing Notes Ronald Molina M.D. - 01/03/2016 10:15 AM CDT Ambulatory Patient Education The following Patient Education Materials have been given to the patient: Patient Education Materials: Source: [facility] POWERCHART Document Id: [id number] documented in this encounter Miscellaneous Notes Miscellaneous - Ronald Molina M.D. - 01/10/2016 6:46 PM CDT Custom Result Letter January 10, 2016 ELIAN DAWKINS [address] [facility] [id number] Dear ELIAN DAWKINS, Tests for electrolytes, kidney function, liver, muscle, prostate, vitamin B12, folate and thyroid are OK. Diabetes is fairly controlled. It is better to keep hemoglobin A1c less than 7. Please follow up with us as we discussed during your visit or sooner if you have any concerns. If you have questionsor concerns, please do not hesitate to call our office. Result Name Current Result Normal Range Sodium Lvl (mmol/L) 135 01/03/2016 135 - 145 Potassium Lvl (mmol/L) 4.2 01/03/2016 3.6 - 5.2 Chloride (mmol/L) (L) 97 01/03/2016 98 - 107 CO2 (mmol/L) (L) 21 01/03/2016 22 - 29 Alkaline Phosphatase (unit/L) 100 01/03/2016 45 - 115 Glucose Lvl (mg/dL) (H) 178 01/03/2016 70 - 139 Creatinine (mg/dL) 1.07 01/03/2016 0.80 - 1.30 EGFR (MDRD) (mL/min/1.73m2) >60 01/03/2016 >=60 - BUN (mg/dL) 16 01/03/2016 8 - 24 Calcium Lvl (mg/dL) 10.1 01/03/2016 8.8 - 10.3 Protein Total (G/DL) 6.9 01/03/2016 6.3 - 7.9 Albumin Lvl (G/DL) 4.5 01/03/2016 3.2 - 5.2 08AST (unit/L) 19 01/03/2016 8 - 48 ALT (unit/L) 14 01/03/2016 7 - 55 Bili Total (mg/dL) 0.6 01/03/2016 - <=1.2 Bili Direct (mg/dL) 0.20 01/03/2016 - <=0.30 CK (IU/L) 225 01/03/2016 52 - 336 PSA (ng/mL) 1.5 01/03/2016 0.0 - 4.5 Hgb A1c (% A1C) (H) 7.9 01/03/2016 - <=5.6 Vitamin B12 Lvl (ng/L) 222 01/03/2016 180 - 914 Folate Lvl (mcg/L) 10.5 01/03/2016 >=4.6 - TSH (mIU/L) 1.79 01/03/2016 0.27 - 4.20 Sincerely, RONALD MOLINA [address] [place] [address] Electronic Signature Electronically Signed By: RONALD MOLINA MD On: January 10, 2016 This document has images extracted. Source: [facility] POWERCHART Document Id: [id number] Miscellaneous - Ronald Molina M.D. - 01/04/2016 4:47 PM CDT Negative urine culture Document Contains Addenda Addendum by ESTEFANY REEDER LPN on January 07, 2016 13:22:38 CDT Patient notified of results. Addendum by JESSICA RUDOLPH on January 07, 2016 11:02:21 CDT pt called, please call back Addendum by ESTEFANY REEDER LPN on January 07, 2016 10:55:08 CDT Left message for patient to return my call. From: RONALD MOLINA MD To: RENETTA Molina Nurse; Sent: 01/04/2016 16:47:35 CDT Show up: 01/04/2016 16:48:00 CDT Subject: Negative urine culture Actions: Notify patient of results Please call. Urine culture is negative. No UTI. Source: [facility] POWERCHART Document Id: [id number] Miscellaneous - Ronald Molina M.D. - 01/03/2016 12:23 PM CDT X-ray abdomen 2 views and chest 1 view 01/03/2016 Document Contains Addenda Addendum by ESTEFANY REEDER LPN on January 03, 2016 14:03:49 CDT Patient notified of results and Dr. Molina's recommendations. From: RONALD MOLINA MD To: RENETTA Molina Nurse; Sent: 01/03/2016 12:23:32 CDT Show up: 01/03/2016 12:22:00 CDT Subject: X-ray abdomen 2 views and chest 1 view 01/03/2016 Actions: Notify patient of results, Notify Patient of Future Order Please call. He has fecal retention per x-ray. He needs to eat more fruits, vegetables and high fiber diet. He should take Dulcolax 10 mg today, one dose. Some of his symptoms are related to this fecal retention. Result type: XR Abdomen 2 views w/ Chest 1 view Result date: January 03, 2016 10:56 CDT Result status: Auth (Verified) Result title: XR Abdomen 2 views w/ Chest 1 view Performed by: MICHELLE TY MD on January 03, 2016 12:08 CDT Verified by: MICHELLE TY MD on January 03, 2016 12:08 CDT Encounter info: [id number], [address], Clinic Outpatient, 01/03/2016 - * Final Report * Reason For Exam BPH with LUTS. Distended abdomen Report EXAM: XR Abdomen 2 views w/ Chest 1 view INDICATION: BPH with LUTS. Distended abdomen AGE: 65 years-old COMPARISON: None. FINDINGS: No obstruction or ileus. No free air. There is large amount of colonic fecal retention. No stones project over bilateral kidneys, ureters, or bladder. Heart size normal. Lungs are clear. Sternotomy. IMPRESSION: Fecal retention. Source: [facility] POWERCHART Document Id: [id number] Miscellaneous - Ronald Molina M.D. - 01/03/2016 12:21 PM CDT Results Notification 01/03/2016 Document Contains Addenda Addendum by ESTEFANY REEDER LPN on January 03, 2016 14:03:29 CDT Patient notified of results and Dr. Molina's recommendations. From: RONALD MOLINA MD To: RENETTA Molina Nurse; Sent: 01/03/2016 12:21:33 CDT Show up: 01/03/2016 12:21:00 CDT Subject: Results Notification 01/03/2016 Actions: Notify patient of results, Notify Patient of Future Order Please call. Blood counts normal. UA showed no UTI, but he has glucose(Sugar) in urine, which can cause frequency. He needs to controldiabetes mellitus better. Results: Date Result Name Ind Value Ref Range 01/03/2016 10:35 Hgb 15.2 g/dL (13.5 - 17.5) 01/03/2016 10:35 Hct 43.1 % (38.8 - 50.0) 01/03/2016 10:35 WBC 6.7 x10(9)/L (3.5 - 10.5) 01/03/2016 10:35 RBC 4.98 x10(12)/L (4.32 - 5.72) 01/03/2016 10:35 MCV 86.5 fL (81.0 - 95.0) 01/03/2016 10:35 RDW 13.6 % (11.8 - 15.6) 01/03/2016 10:35 Platelet 200 x10(9)/L (150 - 450) 01/03/2016 10:35 Neutro Absolute 4.09 10(9)/L (1.70 - 7.00) 01/03/2016 10:35 Lymph Absolute 1.91 x10(9)/L (0.90 - 2.90) 01/03/2016 10:35 [place] Absolute 0.43 x10(9)/L (0.30 - 0.90) 01/03/2016 10:35 Eos Absolute 0.24 x10(9)/L (0.05 - 0.50) 01/03/2016 10:35 Baso Absolute 0.02 x10(9)/L (0.00 - 0.30) 01/03/2016 10:29 UA Color Yellow (Colorless - ) 01/03/2016 10:29 UA Clarity Clear (Clear - ) 01/03/2016 10:29 UA Spec Grav 1.015 01/03/2016 10:29 UA pH 5.5 (<5.0 - ) 01/03/2016 10:29 UA Protein Negative mg/dL (Negative - ) 01/03/2016 10:29 UA Glucose (*) 250 mg/dL (Negative - ) 01/03/2016 10:29 UA Ketones Negative mg/dL (Negative - ) 01/03/2016 10:29 UA Bili Negative (Negative - ) 01/03/2016 10:29 UA Urobilinogen 0.2 mg/dL (0.2 - ) 01/03/2016 10:29 UA Blood Negative (Negative - ) 01/03/2016 10:29 UA Nitrite Negative (Negative - ) 01/03/2016 10:29 UA Leuk Est Negative (Negative - ) 01/03/2016 10:29 UR WBC Occ-3 /HPF (None Seen - ) 01/03/2016 10:29 UR RBC Occ-2 /HPF (None Seen - ) 01/03/2016 10:29 UR Squamous Epi Cells (*) Occ-3 /HPF (None Seen - ) Source: [facility] POWERCHART Document Id: [id number] Miscellaneous - Ronald Molina M.D. - 01/03/2016 10:15 AM CDT Ambulatory Patient Summary [address] [place] [id number] Visit Information Name: ELIAN DAWKINS [facility] Number: [id number] Current Date: 01/03/2016 10:15:22 Physicians Attending Provider: RONALD MOLINA MD Primary Care Provider: RONALD MOLINA MD ELIAN DAWKINS has been given the following list of follow-up instructions, medication list,and patient education materials: Follow-up Instructions With: Address: When: I'll see you back in 2 weeks. With: Address: When: Please sign record release from all of your previous doctors' offices. With: Address: When: Please see [facility] in [place] to discuss enlarged prostate and treatment. With: Address: When: We will do blood tests, urine tests and x-ray today and let you know with results. Your Medications Here is a list of [...] the Following Medications: Medication list as of 01-03-16 10:15 Attention: If you have any medications at [...] Electronically Signed By: RONALD MOLINA MD Signed On:03-JAN-2016 10:13:30 Your Allergies & Intolerances Substance Reaction Symptoms [...] Your Upcoming Appointments Date Time Location Provider No Appointments found Attention: Contact your local Clinic if further [...] if you dont have one. Go to [email or web address] and click on Create Your Account. Then, follow the directions to complete the online form. Youll be asked for your [facility] number which you can find at the top of this document. Your Goals/Additional instructions: Source: [facility] POWERCHART Document Id: [id number] Miscellaneous - Ronald Molina M.D. - 01/03/2016 10:15 AM CDT Ambulatory Discharge Medication List [address] [place] [id number] Visit Information Name: ELIAN DAWKINS [facility] Number: [id number] Visit Date: 01/03/2016 10:15:21 Attending Provider: RONALD MOLINA MD Primary Care [...] the Following Medications: Medication list as of 01-03-16 10:15 Attention: If you have any medications at [...] Electronically Signed By: RONALD MOLINA MD Signed On:03-JAN-2016 10:13:30 Additional Information: Source: [facility] POWERCHART Document Id: [id number] Miscellaneous - Estefany Reeder L.P.N. - 01/03/2016 9:13 AM CDT Adult Napkin Band Wrapper Intake/History Adult Napkin Band Wrapper Intake/History Entered On: 01/03/2016 9:15 CDT Performed On: 01/03/2016 9:13 CDT by ESTEFANY REEDER LPN Intake Chief Complaint : 1. Establish Care 2. Foul odor to urine for the last five months Peripheral Pulse Rate : 75 /min Respiratory Rate : 16 /min Systolic Blood Pressure : 125 mmHg Diastolic Blood Pressure : 83 mmHg NIBP Mean : 97 mmHg BP Location : Left upper extremity Blood Pressure Cuff Size : Regular Height : 172 cm(Converted to: 5 ft 8 inch(es), 68 inch(es)) Actual Weight : 98.5 kg(Converted to: 217 lb 2 oz) Weight Source : Standing scale Dosing Weight Clinic : 98.5 kg Clinic BSA : 2.17 Body Mass Index : 33.3 kg/m2 ESTEFANY REEDER LPN - 01/03/2016 9:13 CDT General Info Information Given By : Patient Preferred Communication Mode : Verbal, Written Languages : Maltese Is Patient Female and 13-50 no hysterectomy : No ESTEFANY REEDER LPN - 01/03/2016 9:13 CDT Subjective Pain Symptoms : ESTEFANY Garcia LPN - 01/03/2016 9:13 CDT Dependent Habits Exposure to Tobacco Smoke : Other: Never Smoking Status : Never smoker Tobacco 2A : No Tobacco Use/Currently Using : No Tobacco Use/Last 30 Days : No Tobacco Use/Last 12 months : No Alcohol Use : No ESTEFANY REEDER LPN - 01/03/2016 9:13 CDT Source: [facility] POWERCHART Document Id: [id number] CDT!31 Miscellaneous - Estefany Reeder L.P.NMichelle - 01/03/2016 9:04 AM CDT Health Assessment Health Assessment Entered On: 01/03/2016 9:08 CDT Performed On: 01/03/2016 9:04 CDT by ESTEFANY REEDER LPN Health Assessment Complete Health Assessment Complete or Modified : Annual Health Assessment Annual Health Assessment Completed : Yes ESTEFANY REEDER LPN - 01/03/2016 9:04 CDT Nutrition Nutrition Risk Factors by History Adult : None ESTEFANY REEDER LPN - 01/03/2016 9:04 CDT Functional Living Situation : Home independently Current Daily Living Assistance : None ESTEFANY REEDER LPN - 01/03/2016 9:04 CDT Dependent Habits Exposure to Tobacco Smoke : Other: Never Smoking Status : Never smoker Tobacco 2A : No Tobacco Use/Currently Using : No Tobacco Use/Last 30 Days : No Tobacco Use/Last 12 months : No Alcohol Use : No ESTEFANY REEDER LPN - 01/03/2016 9:04 CDT Psychosocial Domestic Abuse Concerns : None Behavioral Health Screen/Safety Assmt : No Taoism Preference : No qualifying data available. ESTEFANY REEDER LPN - 01/03/2016 9:04 CDT Advance Directive Advanced Directives : No Advance Directive Additional Information : No ESTEFANY REEDER LPN - 01/03/2016 9:04 CDT Educ Needs Learning Style Preference Adult Grid Patient : Printed materials, Verbal explanation Family : None ESTEFANY REEDER LPN - 01/03/2016 9:04 CDT [facility] Document Id: [id number] CDT!28 documented in this encounter Plan of Treatment Upcoming Encounters Date Type Specialty Care Team Description 04/23/2022 Office Visit Cardiovascular Disease Blas Peck M.D. [address] [place] [phone] (Wo rk) documented as of this encounter Procedures Procedure Name Priority Date/Time Associated Comments Diagnosis HEPATIC FUNCTION Routine 01/03/2016 10:35 Results for this PANEL, S AM CDT procedure are i n the results section. VITAMIN B12 AND Routine 01/03/2016 10:35 Results for this FOLATE, S AM CDT procedure are i n the results section. PROSTATE-SPECIFIC AG Routine 01/03/2016 10:35 Res ults for this (PSA) SCRN, S AM CDT procedure are in the results section. AUTOMATED Routine 01/03/2016 10:35 Results for this DIFFERENTIAL, B AM CDT procedure ar e in the results section. CBC WITH Routine 01/03/2016 10:35 Results for this DIFFERENTIAL, B AM CDT procedure ar e in the results section. THYROID-STIMULATING Routine 01/03/2016 10:35 Resu lts for this HORMONE-SENSITIVE AM CDT procedure are in (S-TSH) the results section. HEMOGLOBIN A1C, B Routine 01/03/2016 10:35 Result s for this AM CDT procedure are i n the results section. CREATINE KINASE (CK), Routine 01/03/2016 10:35 Re sults for this S AM CDT procedure are i n the results section. BASIC METABOLIC Routine 01/03/2016 10:35 Results for this PANEL, S/P AM CDT procedure are i n the results section. URINALYSIS WITH Routine 01/03/2016 10:29 Results for this MICROSCOPIC AM CDT procedure are i n the results section. BACTERIAL CULTURE, Routine 01/03/2016 10:29 Resul ts for this AEROBIC, URINE AM CDT procedure are in the results section. DX ABDOMEN SUPINE AND Routine 01/03/2016 10:22 Re sults for this UPRIGHT 2 VIEWS AM CDT procedure ar e in the results section. documented in this encounter Results Automated Differential (01/03/2016 10:35 AM CDT) P athologist Signature Absolute 4.09 1.70 - POWERCHART Neutrophils 7.00 109L Lymphocytes 1.91 0.90 - POWERCHART 2.90 X109L Monocytes 0.43 0.30 - POWERCHART 0.90 X109L Eosinophils 0.24 0.05 - POWERCHART 0.50 X109L Absolute 0.02 0.00 - POWERCHART Basophil 0.30 X109L Specimen Anatomical Collection Method Collection Time Receive d Time (Source) Location / / Volume Laterality Blood 01/03/2016 10:35 01/03/2016 AM CDT 10:35 AM CDT Ronald Molina M.D. LAB BLOOD ADD-ON Performing Organization Address City/[facility] Code Phon e Number POWERCHART CBC with Differential (01/03/2016 10:35 AM CDT) P athologist Signature Leukocytes 6.7 3.5 - 10.5 POWERCHART X109L Erythrocytes 4.98 4.32 - 5.72 POWERCHART [id number] Hemoglobin 15.2 13.5 - 17.5 POWERCHART GDL Hematocrit 43.1 38.8 - 50.0 POWERCHART MCV 86.5 81.0 - 95.0 POWERCHART FL Platelet Count 200 150 - 450 POWERCHART X109L HX RDW 13.6 11.8 - 15.6 POWERCHART Specimen (Source) Anatomical Collection Method Collection Time Re ceived Time Location / / Volume Laterality Blood 01/03/2016 10:35 AM CDT Ronald Molina M.D. LAB BLOOD ADD-ON Performing Organization Address [facility] Phon e Number POWERCHART Thyroid-Stimulating Hormone-Sensitive (s-TSH) (01/03/2016 10:35 AM CDT) P athologist Signature TSH 1.79 0.27 - 4.20 POWERCHART (Thyrotropin) MARYLU Comment: Biotin has been identified by the kalpana cturer as a potential interfering substance. Higher concentrations of biotin may be found in multivitamins, hair/nail supplements, and workout supplements. If the result does not match clinical observat ions, repeat testing after patient refrains from the use of supplements for at least 12 hours. Specimen (Source) Anatomical Collection Method Collection Time Re ceived Time Location / / Volume Laterality Blood 01/03/2016 10:35 AM CDT Ronald Molina M.D. LAB BLOOD ADD-ON Performing Organization Address City/State/ZIP Code Phon e Number POWERCHART PSA (Prostate-Specific Antigen) Screen (01/03/2016 10:35 AM CDT) athologist Signature Prostate-Specif 1.5 0.0 - 4.5 POWERCHART ic Ag NGML Comment: Biotin has been identified by the kalpana montezr as a potential interfering substance. Higher concentrations of biotin may be found in multivitamins, hair/nail supplements, and workout supplements. If the result does not match clinical observat ions, repeat testing after patient refrains from the use of supplements for at least 12 hours. Specimen (Source) Anatomical Collection Method Collection Time Re ceived Time Location / / Volume Laterality Blood 01/03/2016 10:35 AM CDT Ronald Molina M.D. LAB BLOOD ADD-ON Performing Organization Address City/State/ZIP Code Phon e Number POWERCHART Vitamin B12 Level and Folate (01/03/2016 10:35 AM CDT) athologist Signature Vitamin B12 222 180 - 914 POWERCHART Assay, S NGL Comment: Biotin has been identified by the kalpana vo as a potential interfering substance. Higher concentrations of biotin may be found in multivitamins, hair/nail supplements, and workout supplements. If the result does not match clinical observat ions, repeat testing after patient refrains from the use of supplements for at least 12 hours. Folate, S 10.5 >=4.6 MCGL POWERCHART Comment: Biotin has been identified by the [...] Time Location / / Volume Laterality Blood 01/03/2016 10:35 AM CDT Ronald Molina M.D. LAB BLOOD NON ADD-ON Performing Organization Address City/State/ZIP Code Phon e Number POWERCHART (ABNORMAL) Hemoglobin A1c (01/03/2016 10:35 AM CDT) athologist Signature Hemoglobin A1c, 7.9 (H) <=5.6 A1C POWERCHART B Specimen (Source) Anatomical Collection Method Collection Time Re ceived Time Location / / Volume Laterality Blood 01/03/2016 10:35 AM CDT Ronald Molina M.D. LAB BLOOD ADD-ON Performing Organization Address City/[facility]/ZIP Code Phon e Number POWERCHART Hepatic Function Panel (01/03/2016 10:35 AM CDT) Patholo gist Method Time Signature Alanine 14 7 - 55 POWERCHART Amniotransferase, LD UNITL Albumin, S 4.5 3.2 - 5.2 POWERCHART GDL Alkaline 100 45 - 115 POWERCHART Phosphatase, S UNITL Aspartate 19 8 - 48 POWERCHART Aminotransferase UNITL (AST), S Bilirubin, Direct, S 0.20 <=0.30 POWERCHAR T MGDL Bilirubin, Total, S 0.6 <=1.2 POWERCHART MGDL Total Protein, S 6.9 6.3 - 7.9 POWERCHART GDL Specimen (Source) Anatomical Collection Method Collection Time Re ceived Time Location / / Volume Laterality Blood 01/03/2016 10:35 AM CDT Ronald Molina M.D. LAB BLOOD ADD-ON Performing Organization Address City/[facility]/ZIP Code Phon e Number POWERCHART CK (Creatine Kinase) (01/03/2016 10:35 AM CDT) P athologist Signature Creatine Kinase 225 52 - 336 POWERCHART (CK), S IUL Specimen (Source) Anatomical Collection Method Collection Time Re ceived Time Location / / Volume Laterality Blood 01/03/2016 10:35 AM CDT Ronald Molina M.D. LAB BLOOD ADD-ON Performing Organization Address City/[facility]/ZIP Code Phon e Number POWERCHART (ABNORMAL) BMP (Basic Metabolic Panel) (01/03/2016 10:35 AM CDT) P athologist Signature Sodium, S 135 135 - 145 POWERCHART MMOLL Potassium, S 4.2 3.6 - 5.2 POWERCHART MMOLL Chloride, S 97 (L) 98 - 107 POWERCHART MMOLL CO2 Total 21 (L) 22 - 29 POWERCHART MMOLL BUN (Blood Urea 16 8 - 24 POWERCHART Nitrogen), S MGDL Creatinine 1.07 0.80 - POWERCHART 1.30 MGDL Calcium, Total, 10.1 8.8 - 10.3 POWERCHART S MGDL Anion Gap 17 (H) 7 - 15 POWERCHART MMOLL HXeGFR (MDRD) >60 >=60 POWERCHART [id number] eGFR >60 >=60 POWERCHART Black/ [id number] Jordanian Glucose 178 (H) 70 - 139 POWERCHART MGDL Specimen (Source) Anatomical Collection Method Collection Time Re ceived Time Location / / Volume Laterality Blood 01/03/2016 10:35 AM CDT Ronald Molina M.D. LAB BLOOD ADD-ON Performing Organization Address City/State/[facility] Phon e Number POWERCHART (ABNORMAL) Urinalysis, Complete, Includes Microscopic (01/03/2016 10:29 AM CDT) Patholo gist Method Time Signature Clarity Clear Clear POWERCHART HXUr Color Yellow Colorless POWERCHART Specific 1.015 POWERCHART [place], POCT, U pH, POCT, Urine 5.5 <5.0 POWERCHART Protein, Ur, Dip Negative Negative POWERCHART MGDL Glucose 250 (A) Negative POWERCHART MGDL Ketones, QL(U) Negative Negative POWERCHART MGDL HXBILIRUBIN Negative Negative POWERCHART HXBLOOD Negative Negative POWERCHART Leukocyte Negative Negative POWERCHART Esterase HXNITRITE Negative Negative POWERCHART Urobilinogen 0.2 0.2 MGDL POWERCHART HXUR WBC. Occ-3 None Seen POWERCHART HPF HXUR RBC. Occ-2 None Seen POWERCHART HPF Squamous Occ-3 (A) None Seen POWERCHART Epithelial HPF Specimen (Source) Anatomical Collection Method Collection Time Re ceived Time Location / / Volume Laterality Urine, First 01/03/2016 10:29 Voided AM CDT Ronald Molina M.D. LAB URINE ORDERABLES Performing Organization Address City/[facility]/ZIP [facility] Phon e Number POWERCHART Bacterial Culture, Aerobic, Urine (01/03/2016 10:29 AM CDT) Analysis Performed At Path logist Time Signature Bacterial POWERCHART Culture, Aerobic, Urine HXFinal No growth POWERCHART Specimen (Source) Anatomical Collection Method Collection Time Re ceived Time Location / / Volume Laterality Urine, First 01/03/2016 10:29 Voided AM CDT Ronald Molina M.D. LAB MICROBIOLOGY - GENERAL O RDERABLES Performing Organization Address City/State/ZIP Code Phon e Number POWERCHART DX Abdomen Supine and Upright 2 Views with Chest 1 View (01/03/2016 10:22 AM CDT) Anatomical Region Laterality Modality Abdomen Right Radiographic Imaging Specimen (Source) Anatomical Collection Method Collection Time Re ceived Time Location / / Volume Laterality 01/03/2016 10:22 AM CDT Addenda Addendum by Jyoti Chase M.D. o bing 01/03/2016 10:22 AM CDT RAD^^^OW XR Abdomen 2 views w ??Chest 1 view 01/03/2016 10:22:42 Impressions 01/03/2016 12:08 PM CDT Fecal retention. Narrative 01/03/2016 12:08 PM CDT EXAM: XR Abdomen 2 views w/ Chest 1 view INDICATION: BPH with LUTS. Distended abd omen AGE: 65 years-old COMPARISON: None. FINDINGS: No obstruction or ileus. No fr ee air. There is large amount of colonic fecal retention. No stones pr oject over bilateral kidneys, ureters, or bladder. Heart size normal. Lungs are clear. Ster notomy. Procedure Note Michelle Ty M.D. / ProviderJyoti M.D. - 08/16/2016 EXAM: XR Abdomen 2 views w/ Chest 1 view INDICATION: BPH with LUTS. Distended abd omen AGE: 65 years-old COMPARISON: None. FINDINGS: No obstruction or ileus. No fr ee air. There is large amount of colonic fecal retention. No stones pr oject over bilateral kidneys, ureters, or bladder. Heart size normal. Lungs are clear. Ster notomy. IMPRESSION: Fecal retention. Historical Provider IMG DIAGNOSTIC IMAGING PROCE DURES documented in this encounter Visit Diagnoses Not on filedocumented in this encounter
--- OUTSIDE RECORDS SUMMARY | 2022-02-17 12:27 | XMS_ITS | Encounter Summary ---
:1950 Author Organization [facility] Address [address] [place] [address] Care Team Providers Name Role Phone Unavailable Primary Care Provider Unavailable Encounter Details Date Type Department Care Team Description 01/03/2016 Hospital Encounter HX NO MAPPING Ethan Worrell M.D. [address] [place], [place] [address] Social History Tobacco Use Types Packs/Day Years [...] tablet daily. 0 07/09/2020 tablet blood-glucose meter [facility] Dispense glucose 0 05/2308/11/2018 meter, test strips and lancets covered by the patient insurance. Test 2 times per day. documented as of this encounter Plan of Treatment Upcoming Encounters Date Type Specialty Care Team Description 04/23/2022 Office Visit Cardiovascular Disease Blas Peck M.D. [address] [place], [place] [phone] (Wo rk) documented as of this encounter Visit Diagnoses Not on filedocumented in this encounter
--- OUTSIDE RECORDS SUMMARY | 2022-02-17 12:28 | XMS_ITS | Encounter Summary ---
:1950 Author Organization [facility] Address [address] [place] [address] Care Team Providers Name Role Phone Unavailable Primary Care Provider Unavailable Encounter Details Date Type Department Care Team Description 01/03/2016 Hospital Encounter HX NO MAPPING Franco Molina M.D. [address] [facility] [address] [phone] Social History Tobacco Use Types Packs/Day [...] tablet daily. 0 07/09/2020 tablet blood-glucose meter [facility] Dispense glucose 0 05/2308/11/2018 meter, test strips and lancets covered by the patient insurance. Test 2 times per day. documented as of this encounter Miscellaneous Notes Miscellaneous - Conversion, Historical Provider Ser - 01/03/2016 11:59 PM CDT Coding Summary-Paper Based CODING DATE: 01/14/2016 FINAL [facility] STATUS: * Discharged to Home or Self Care PAYOR: Commercial Insurance ADMIT DX: REASON FOR VISIT DX: FINAL DX: PRINCIPAL: R39.89 Other symptoms and signs involving the genitourinary system SECONDARY: PROCEDURES DOCTOR NAME DATE NOTE: The code number assigned matches the documented diagnosis and / or procedure in the patient's chart. However, the narrative phrase printed from the coding software may appear abbreviated, or result in slightly different terminology. Coded By: NETO SANCHEZ Date Saved: 01/14/2016 07:18 am Source: [facility] Whatever Document Id: [id number] documented in this encounter Plan of Treatment Upcoming Encounters Date Type Specialty Care Team Description 04/23/2022 Office Visit Cardiovascular Disease Blas Peck M.D. [address] [place] [phone] (Wo rk) documented as of this encounter Visit Diagnoses Not on filedocumented in this encounter
== END 2022-02-17 12:12 | disposition home or self-care (01) ==
PROVIDERS: PCP Internal Medicine; Visit Provider Surgery
DX: Z12.11 Encounter for screening for malignant neoplasm of colon (principal); Z86.010 Personal history of colon polyps
CPT/HCPCS: 45378; J2250; J3010

== ENCOUNTER 2022-10-01 10:01 | Outpatient (CLI) | payer MEDICARE, OTHER, SELFPAY ==
[2022-10-01 14:11] LABS: PSA Screen* 1.06 ng/mL (0.10-4.00)
== END 2022-10-01 10:02 | disposition home or self-care (01) ==
PROVIDERS: PCP Internal Medicine; Visit Provider Family Medicine
DX: E78.5 Hyperlipidemia, unspecified (principal); I10 Essential (primary) hypertension; Z12.5 Encounter for screening for malignant neoplasm of prostate; N18.2 Chronic kidney disease, stage 2 (mild); F41.1 Generalized anxiety disorder
CPT/HCPCS: 80053; 80061; 82043; 82570; 84153

== ENCOUNTER 2023-02-04 09:33 | Outpatient (CLI) | payer MEDICARE, OTHER, SELFPAY ==
[2023-02-04 09:59] LABS: Appearance Urine Clear (Clear); Bilirubin Urine Negative (Negative); Blood Urine Negative (Negative); Color Urine Yellow (Yellow); Glucose Urine 1+ (Negative); Ketones Urine Negative (Negative); Leukocyte Esterase Urine Negative (Negative); Nitrite Urine Negative (Negative); Protein Urine Negative (Negative); Urobilinogen Urine 0.2 (0.2-1.0); pH Urine 6.5 (5.0-8.5)
--- NOTE | 2023-02-04 10:00 | CRLHL7_ITS ---
For Patients: As a result of the Century Cures Act, medical imaging exams and procedure reports are released immediately into your electronic medical record. You may view this report before your referring provider. If you have questions, please contact your health care provider. CLINICAL INFORMATION: Abdominal pain. TECHNIQUE: Contrast-enhanced CT of the abdomen and pelvis was obtained. Coronal and sagittal reformatted images were obtained. Contrast: 107 mL of Omnipaque 350 intravenous contrast was injected uneventfully prior to image acquisition. Radiation Dose Estimate (Total Exam DLP): 1072 mGy-cm. COMPARISON: None. FINDINGS: Lower Chest: Lung bases: No focal airspace opacities or pleural effusions. Heart/Pericardium: Coronary artery atherosclerotic calcifications. Abdomen/Pelvis: Liver: Unremarkable. Gallbladder: Absent. Spleen: Unremarkable. Adrenal glands: Unremarkable. Kidneys: Enhance symmetrically without hydronephrosis. Bilateral renal cortical cysts. Pancreas: Unremarkable. Lymph nodes: No retroperitoneal, mesenteric, inguinal, or pelvic adenopathy by CT criteria. Vascular: Abdominal aorta normal in caliber. Bowel: No bowel obstruction. Normal appendix in the right lower quadrant. Urinary bladder: Limited evaluation due to underdistention. No gross pathology. Reproductive structures: Unremarkable for patient`s age. No abdominal/pelvis ascites or free intraperitoneal air. Musculoskeletal: Status post sternotomy. Visualized osseous structures demonstrate diffuse degenerative changes. IMPRESSION: 1. No acute findings in the abdomen and pelvis. Please note that all CT scans at this facility use dose modulation, iterative reconstruction, and/or weight-based dosing when appropriate to reduce radiation dose to as low as reasonably achievable. Dictated by Morro Brito MD @ 02/06/2023 7:27:40 AM (Electronically Signed)
[2023-02-04 10:14] LABS: Creatinine* 1.1 mg/dL (0.5-1.5); Estimated Glomerular Filt Rate 72 ml/min
== END 2023-02-04 09:34 | disposition home or self-care (01) ==
LOC: CT 09:36
PROVIDERS: PCP Family Medicine; Visit Provider Surgery
DX: R10.9 Unspecified abdominal pain (principal); R30.0 Dysuria
CPT/HCPCS: 36415; 74177; 81003; 82565; Q9967

== ENCOUNTER 2023-08-25 09:38 | Outpatient (CLI) | payer MEDICARE, OTHER, SELFPAY ==
--- OUTSIDE RECORDS SUMMARY | 2023-08-25 09:41 | XMS_ITS | Clinical Summary ---
Author Name Unknown Organization [facility] Address [address] [place] [address] Care Team Providers Care Vocational Rehabilitation Counselor Name Role Phone Elsewhere, Pcp Primary Care Provider Unavailabl e Source Comments Patient records contain information from all sites at [facility]. For routine questions regarding patient records, call [phone] during business hours, M-F 8:00 AM - 5:00 PM Central Time. Record requests for emergency care only can be directed to [phone] at any time.[facility] Allergies Active Allergy Reactions Criticality Noted Date Comments Sertraline Other (see comments) 04/11/2015 Sulfamethoxazole-Trimethoprim Swelling High 2015 Medications Medication Sig Dispensed Refills Start Date End Date Status polyethylene glycol (for_MIRALAX) 17 gram powder packet Take 17 g by mouth daily. 08/28/2016 Active PSYLLIUM HUSK (METAMUCIL ORAL) Take 1.7 g by mouth at bedtime. 04/25/2016 Active CONTOUR TEST STRIPS strips USE ONE STRIP TO CHECK GLUCOSE ONCE DAILY BEFORE BREAKFAST 100 strip 4 11/13/2017 Active blood sugar diagnostic (glucose blood) strips 3 test daily. Whatever is covered by insurance. Dx:E11.9 300 strip 11 10/25/2018 Active blood-glucose meter [facility] glucose meter, test strips, lancing device, and lancets covered by the patient insurance. Test 3 times per day. Dx: E11.40, E11.65 1 each 10/25/2018 Active lancets Check sugar 3 times daily before meals 300 each 3 10/25/2018 Active ibuprofen (ADVIL,MOTRIN) 200 mg tablet Take 400 mg by mouth as needed. 11/25/2018 Active nitroglycerin (NITROSTAT) 0.[address] 1 tablet (0.4 mg total) under the tongue every 5 (five) minutes as needed for chest pain. 25 tablet 10/10/2020 Active aspirin [address] tablet Take 1 tablet (81 mg total) by mouth daily. 10/10/2020 Active LORazepam (ATIVAN) 1 mg tablet Take 1 tablet (1 mg total) by mouth 2 (two) times a day as needed for anxiety. 60 tablet 10/18/2020 Active lisinopriL (PRINIVIL,ZESTRIL) 2.5 mg tablet Take 1 tablet (2.5 mg total) by mouth every morning. 90 tablet 3 01/14/2021 Active metoprolol tartrate (LOPRESSOR) 25 mg tablet Take 1 tablet (25 mg total) by mouth 2 (two) times a day. 180 tablet 3 01/14/2021 Active insulin glargine (Lantus U-100 Insulin) 100 unit/mL injection Inject 23 Units under the skin every evening. 20 mL 3 02/15/2021 Active BD Veo Insulin Syringe UF 0.3 mL 31 gauge x 15/64 syringe USE 1 SYRINGE DAILY 100 each 3 04/01/2021 Active oxybutynin (DITROPAN-XL) 10 mg 24 hr tablet TAKE 1 TABLET(10 MG) BY MOUTH AT BEDTIME 90 tablet 3 02/11/2022 Active atorvastatin (LIPITOR) 20 mg tablet TAKE 1 TABLET BY MOUTH EVERY NIGHT AT BEDTIME 90 tablet 02/13/2022 Active tamsulosin (FLOMAX) 0.4 mg 24 hr capsuleIndications :Overactive Bladder TAKE 1 CAPSULE(0.4 MG) BY MOUTH DAILY 90 capsule 3 03/03/2022 Active venlafaxine XR (EFFEXOR-XR) 150 mg 24 hr capsuleIndications :Anxiety TAKE 1 CAPSULE(150 MG) BY MOUTH DAILY 90 capsule 03/13/2022 Active dulaglutide (Trulicity) 1.5 mg/0.5 mL pen injector injection Inject 0.5 mL (1.5 mg total) under the skin every 7 (seven) days. 12 mL 3 03/24/2022 07/23/2024 Active Active Problems Problem Noted Date Diagnosed Date Pain Generalized Abdominal 03/14/2020 Last Assessment & Plan: This has overall improved [...] Osteoarthritis Knee Right 04/15/2019 Nicotine Dependence Other To bacco Product With Other Nicotine Induced Disorder 07/16/2018 Obesity Body Mass Index 30-39.9 Adult 07/16/2018 Polyp Colon Adenomatous Personal History 019 Hernia Inguinal Bilateral 12/10/2017 Paraphimosis 10/27/2017 Pain Chest 06/06/2017 Dyspnea NOS 05/08/2017 Benign Prostatic Hyperplasia With Lower Urinary Tract Symptom 05/01/2017 Hypertensive Heart And Chron ic Kidney Disease Without Heart Failure And With Stage 2 (Mild) Chronic Kidney Disease 02/23/2017 Last Assessment & Plan: Blood pressure is within goal today. Kidney function and electrolytes remain stable. Continue with current dose of lisinopril and metoprolol. High Risk Medication 02/23/2017 Lower Abdominal Pain Unspecified 02/23/2017 Primary Osteoarthritis Knee Bilateral 12/23/2016 Last Assessment & Plan: Reports his knee pain is doing much better. He thinks the last cortisone injections he received have been helpful. Has been more active recently and has found this to be helpful as well. He will let me know if he needs a referral back to Orthopedics. Primary Osteoarthritis Hip Bilateral 08/29/2016 Apnea Sleep Obstructive 08/28/2016 Callus [place] Foot 04/25/2016 Diverticulosis Colon 04/25/2016 Overactive Bladder 03/26/2016 Last Assessment & Plan: Overall stable. Continue with oxybutynin and Flomax. Diabetes Mellitus Type 2 With Diabetic Neuropath y 01/03/2016 Overview: Maintained on Trulicity and Lantus Diagnosis Maintenance Updates Apr 2023 Last Assessment & Plan: A1c has improved [...] today. Anxiety 01/03/2016 Last Assessment & Plan: Reports his anxiety is overall stable. He is using the Ativan nearly every day but finds it to be helpful in treating panic episodes. Encouraged him to continue to use this sparingly and only as needed. Body Mass Index 34.0 To 34.9 Adult 01/03/2016 Coronary Arterial Bypass Graft Status Post Perso nal History 01/03/2016 Hyperlipidemia 01/03/2016 Overview: Maintained on Lipitor Last Assessment & Plan: LDL was within goal when last checked in October. Continue with current dose of Lipitor. Irritable Bowel Syndrome With Constipation 01/02 Panic Disorder Episodic Paroxysmal Anxiety 01/02 Rhinitis Allergic 01/03/2016 Frequency Urinary 12/12/2015 Coronary Artery Disease Without Angina Pectoris 09/28/2015 Last Assessment & Plan: Stable without any complaints of chest pain. Has not needed to use his nitroglycerin. Continue with daily low-dose aspirin. Last saw Cardiology in November of 2019. Recommend annual cardiology visits. Bowel Habit Change 04/11/2015 Resolved Problems Problem Noted Date Diagnosed Date Resolved Date Pain Penis 10/27/2017 08/25/2019 Dysuria 10/27/2017 08/25/2019 Sore Throat 10/27/2017 08/29/2019 Pain Ear Bilateral 10/27/2017 0 Sinusitis Acute Maxillary 10/27/2017 Urgency Urinary 05/28/2017 12/24/2017 Polyp Colon Hyperplastic 05/28/2017 Overview: 05/11/2017 Spasm Bladder 03/26/2016 12/24/2017 Retention Urinary Chronic 02/14/2016 Polyp Colon Adenomatous 02/05/201608/11 Benign Prostatic Hyperplasia Hypertrophy With Obstruction 01/03/2016 07/16/2018 Congestion Nasal 01/03/2016 03/13/2020 Hay Fever 01/03/2016 08/25/2019 Numbness 01/03/2016 08/25/2019 Hyponatremia 11/12/2015 03/14/2020 Encounters Date Type Department Care Team Description 06/15/2023 4:03 PM CORPORATE DEVELOPMENT INTERN - 06/15/2023 11:59 PM CORPORATE DEVELOPMENT INTERN Hospital Encounter Department of Laboratory Medicine in [address] [phone] Trevor Hicks APRN, C.N.P. Atherosclerotic Heart Disease Of [place] Coronary Artery Without Angina Pectoris Discharge Disposition: Home or Self Care 06/15/2023 3:15 PM CORPORATE DEVELOPMENT INTERN Office Visit Department of Cardiovascular Diseases in [address] [phone] Trevor Hicks APRN, C.N.P. Atherosclerotic Heart Disease Of [place] Coronary Artery Without Angina Pectoris (Primary Dx); Coronary Arterial Bypass Graft Status Post Personal History; Hypertension And Chronic Kidney Disease Stage 2; Hyperlipidemia; Diabetes Mellitus Type 2 Without Complication (HCC) from Last 3 Months Immunizations Name Administration Dates Next Due HZV (ZOSTAVAX) 2011 HepB Adult (HEPLISAV-B) 01/14/2021,03/14/2020 Influenza TIV (IM) 01/24/2014, 3,01/26/2012,2010,02/11/2008,02/16/2004 Influenza high dose QV(65 ye ars or older) (PF) 03/06/2021 Influenza, Injectable, Quadrivalent 02/16/2015 Influenza, Seasonal, Injectable 01/25/20 14,01/26/2013,01/26/2012,2010,02/11/2008,02/16/2004 Influenza, Unspecified 01/26/2020,01/20/2017,04/2015 PCV13 05/29/2016,2016 PPSV23 06/18/2018,01/26/2012 SARS-COV-2 (COVID-19) - MODERNA(Discontinued) 03/11/2021 Td Preservative Free (TENIVA C, DECAVAC) 08/31/2015 Td, adsorbed, preservative f ree, (Adult) Unspecified 07/16/1992 Tdap 08/31/2015 influenza high dose (65 year s or older) (PF) 02/28/2019,02/04/2018,01/20/2017,2015 influenza vaccine QV(FLUBLOK ) (18 years or older) (PF) 01/26/2020 Family History Medical History Relation Name Comments [...] Tobacco: Former Pipe Smokeless Tobacco: Never Tobacco Cessation:Counseling Given: Not Answered Comments:pipe Alcohol Use Standard Drinks/Week Comments Not Currently 0 (1 standard drink = 0.6 oz pur e alcohol) AUDIT-C Answer Date Recorded Frequency of Alcohol Consumption Never 11/22/2018 Average Number of Drinks Not on file Frequency of Binge Drinking Not on file 11/11 PHQ-2 Answer Date Recorded PHQ-2 Score 2 07/16/2021 Depression Answer Date Recor ded PHQ-9 Total Score (max 27) 4 07/16 Nutrition Answer Date Recorded Nutrition: EVOO Fat Source Unknown 06/01 Nutrition: Servings of Fruits/Vegetables per Day Not on file 06/01/2020 Dental Answer Date Recorded Dental: Regular Dentist Unknown 06/01/19 21 Sex and Gender Information Value Date Recorded Sex Assigned at Male 12/24/2017 1:55 PM CDT Gender Identity Male 12/24/2017 1:55 PM CDT Sexual Orientation Not on file Last Filed Vital Signs Vital Sign Reading Time Taken Comments Blood Pressure 117/75 06/15/2023 3:06 PM CORPORATE DEVELOPMENT INTERN Pulse 71 06/15/2023 3:06 PM CORPORATE DEVELOPMENT INTERN Temperature 36.7 ??C (98.1 ??F) 10/28/2021 10:51 AM C DT Respiratory Rate 12 07/16/2021 10:59 AM CDT Oxygen Saturation 97% 06/15/2023 3:06 PM CORPORATE DEVELOPMENT INTERN room air Inhaled Oxygen Concentration - - Weight 100 kg (220 lb 10.9 oz) 06/15/2023 3:06 P M CORPORATE DEVELOPMENT INTERN Height 167.6 cm (5' 6) 10/10/2020 10:54 AM CDT Body Mass Index 35.62 10/10/2020 10:54 AM CDT Plan of Treatment Health Maintenance Due Date Last Done Comments CT Colonography 1950 Cologuard 1950 Zoster Vaccines (2 of 3) 05/18/2011 2011 Diabetic Office Visit with F oot Exam 03/14/2021 03/14/2020, 06/18/2018, 06/18/2018, Additional history exists Dilated Eye Exam 06/18/2021 06/18/2020, 08/2018 (Performed elsewhere), 02/01/2018 (Performed elsewhere), Additional history exists Colonoscopy 06/28/2021 06/28/2018, 06/11, 05/11/2017 (Performed elsewhere), Additional history exists Colorectal Cancer Surveillance 06/28/2021 Urine Albumin 10/08/2021 10/08/2020, 06/2019, 09/22/2018, Additional history exists Sodium Level 01/11/2022 01/11/2021, 02/13, 11/10/2019, Additional history exists Hemoglobin A1C 01/14/2022 07/15/2021, 04/2020, 10/08/2020, Additional history exists COVID-19 Vaccine (2022-2 4 season) 2022 08/22/2021, 03/11/2021, 06/03/2020, Additional history exists Depression Screening (Annual PHQ-2) 04/13/2023 Fall Risk Screen (Annual) 04/13/2023 Creatinine Level (Kidney Fun ction Test) 06/18/2023 06/17/2022, 01/11/2021, 03/12/2020, Additional history exists Potassium Level 06/18/2023 06/17/2022, 04/2020, 03/12/2020, Additional history exists Office Visit for Blood Press ure Check / Re-check 06/14/2024 06/15/2023 DTaP,Tdap,and Td Vaccines (2 - Td or Tdap) 08/30/2025 08/31/2015, 08/31/2015, 07/16/1992 Lipid (Cholesterol) Screening 06/18/2027, 01/11/2021, 11/10/2019, Additional history exists Hepatitis C Screening Completed 10/17/2016 Pneumococcal vaccine (65+ years) Completed 06/18/2018, 05/29/2016, 2016, Additional history exists Abdominal Aortic Aneurysm (A AA) Screen Completed 10/17/2020, 10/12/2019, 10/12/2019, Additional history exists Hepatitis B Vaccines Completed 01/14/2021, 03/14/20 Influenza Vaccine Completed 01/14/2023, , 03/06/2021, Additional history exists Medical Devices Implanted Type Area Suit Attendant Device Identifier Shelf Expiration Date Model / Serial / Lot Cardiac Other Implanted: (Quantity not on file) Cardiac Other Chest Description:Body Location - Chest. Device Status Text - CardOther. wires. Hardware E.G. Pins/Screws/R ods-05/08/2017 Implanted: (Quantity not on file) Hardware e.g. pins/screws/ rods Chest Description:Device Status Te xt - Hardware. Cabg X4-05/28/2014 Implanted: (Quantity not on file) Vascular Graft Coronary Procedures Procedure Name Priority Date/Time Associated Diagnosis Comments ECG Routine 06/15/2023 4:14 PM CORPORATE DEVELOPMENT INTERN Atherosclerotic Heart Disease Of [place] Coronary Artery Without Angina Pectoris LIPID PANEL, S Routine 06/17/2022 9:27 AM CORPORATE DEVELOPMENT INTERN 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 Personal History Hyperlipidemia POTASSIUM, S/P Routine 06/17/2022 9:27 AM CORPORATE DEVELOPMENT INTERN Hypertension And Chronic Kidney Disease Stage 2 CREATININE WITH EGFR, S/P Routine 06/17/2022 9:27 AM CORPORATE DEVELOPMENT INTERN Hypertension And Chronic Kidney Disease Stage 2 HEMOGLOBIN A1C, B Routine 07/15/2021 1:0 1 PM CDT Diabetes Mellitus Type 2 With Diabetic Neuropathy Hyperglycemic (HCC) BASIC METABOLIC PANEL, S/P Routine 01/11/2021 9:42 AM CDT Diabetes Mellitus Type 2 With Diabetic Neuropathy Hyperglycemic (HCC) US ABDOMEN COMPLETE RAD - Routine (most inpatients and all outpatients) 10/17/2020 3:25 PM CDT Pain Right Lower Quadrant Pain Left Lower Quadrant ALBUMIN, RANDOM, U Routine 10/08/2020 9:30 AM CDT Diabetes Mellitus Type 2 With Diabetic Neuropathy Hyperglycemic (HCC) HCV AB SCRN W/REFLEX TO HCV PCR, S Routine 10/17/2016 9:13 AM CDT from Last 3 Months or Most Recently Relevant to Health Maintenance Results * ECG 12 Lead (06/15/2023 4:14 PM CORPORATE DEVELOPMENT INTERN) Ventricular Rate ECG/Min 65 BPM MUSE HI Interval 246 ms MUSE QRSD Interval 124 ms MUSE QT Interval 424 ms MUSE QTC Interval 440 ms MUSE P [place] 72 degrees MUSE R [place] 62 degrees MUSE T Wave [place] 61 degrees MUSE 06/15/2023 4:14 PM CORPORATE DEVELOPMENT INTERN 06/15/2023 4:21 PM CORPORATE DEVELOPMENT INTERN Impressions MUSE - 06/15/2023 4:21 PM CORPORATE DEVELOPMENT INTERN Sinus rhythm with 1st degree A-V block Low voltage QRS in precordial leads Right bundle branch block with secondary ST-T abnormalities When compared with ECG of 17-JUN-2022 09:17, No significant change was found Reviewed by RYLEY Bernabe Narrative Procedure Note Adeel Pedraza M.D., Ph.D. - 06/15/2023 IMPRESSION: Sinus rhythm with 1st degree A-V block Low voltage QRS in precordial leads Right bundle branch block with secondary ST-T abnormalities When compared with ECG of 17-JUN-2022 09:17, No significant change was found Reviewed by RYLEY Bernabe Trevor Hicks APRN, C.N.P. ECG ORDERABLE S MUSE NA * Lipid Panel (06/17/2022 9:27 AM CORPORATE DEVELOPMENT INTERN) Triglycerides 115 mg/dL 06/17/2022 12:25 PM CORPORATE DEVELOPMENT INTERN OWAT Comment: ----REFERENCE VALUE---- Normal: <150 mg/dL Borderline High: 150-199 mg/dL High: 200-499 mg/dL Very High: > or =500 mg/dL Cholesterol, Total 137 mg/dL 2022 12:25 PM CORPORATE DEVELOPMENT INTERN OWAT Comment: ----REFERENCE VALUE---- Desirable: < 200 mg/dL Borderline High: 200 - 239 mg/dL High: > or = 240 mg/dL Cholesterol, LDL, Calculated 75 mg/dL 06/17/2022 12:25 PM CORPORATE DEVELOPMENT INTERN OWAT Comment: ----REFERENCE VALUE---- Desirable: <100 mg/dL Above Desirable: 100-129 mg/dL Borderline High: 130-159 mg/dL High: 160-189 mg/dL Very High: >=190 mg/dL ----ADDITIONAL INFORMATION---- LDL cholesterol calculated using the Aldrich/NIH equation. Cholesterol, HDL 41 >=40 mg/dL 06/18/19 12:25 PM CORPORATE DEVELOPMENT INTERN OWAT Cholesterol, Non-HDL, Calculated 96 mg/dL 06/17/2022 12:25 PM CORPORATE DEVELOPMENT INTERN OWAT Comment: ----REFERENCE VALUE---- Desirable: <130 mg/dL Above Desirable: 130-159 mg/dL Borderline High: 160-189 mg/dL High: 190-219 mg/dL Very High: > or =220 mg/dL Fasting (8 HR or more) Yes 06/17/2022 11:12 AM CORPORATE DEVELOPMENT INTERN OWAT Blood (Blood, Venous) 06/17/2022 9:27 AM CORPORATE DEVELOPMENT INTERN 06/17/2022 11:12 AM CORPORATE DEVELOPMENT INTERN Trevor Hicks APRN, C.N.P. LAB BLOOD ADD -ON [facility] [address] [place] [address], [facility] OWAT [facility] [place] [address] [place] [address] * Potassium (06/17/2022 9:27 AM CORPORATE DEVELOPMENT INTERN) Potassium, P 4.8 3.6 - 5.2 mmol/L 06/17/2022 12:25 PM CORPORATE DEVELOPMENT INTERN OWAT Blood (Blood, Venous) 06/17/2022 9:27 AM CORPORATE DEVELOPMENT INTERN 06/17/2022 11:12 AM CORPORATE DEVELOPMENT INTERN Trevor Hicks APRN C.N.P. LAB BLOOD ADD -ON Performing Organization Address [facility] Co de Phone Number [facility] [address] [place] [address], [facility] OWAT [facility] [place] [address], [place] [address] * Creatinine with Estimated GFR (06/17/2022 9:27 AM CORPORATE DEVELOPMENT INTERN) Creatinine 1.09 0.74 - 1.35 mg/dL 06/17/2022 12:25 PM CORPORATE DEVELOPMENT INTERN OWAT Estimated GFR (eGFR) 73 >=60 mL/min/BSA 06/17/2022 12:25 PM CORPORATE DEVELOPMENT INTERN OWAT Comment: Estimated GFR calculated using the 2020 CKD_EPI creatinine equation. Blood (Blood, Venous) 06/17/2022 9:27 AM CORPORATE DEVELOPMENT INTERN 06/17/2022 11:12 AM CORPORATE DEVELOPMENT INTERN Loren Hernandez APRN.N.P. LAB BLOOD ADD -ON Performing Organization Address [facility] Co de Phone Number [facility] [address] [place] [address], [place] OWAT [facility] [place] [address], [place] [address] * (ABNORMAL) Hemoglobin A1c (07/15/2021 1:01 PM CDT) Hemoglobin A1c, B 7.4(H) 4.2 - 5.6 % 07/15/2021 4:05 PM CDT OWAT Comment: Hemoglobin A1c values greater than or equal to 6.5 percent are diagnostic for diabetes mellitus. ??Diagnosis should be confirmed by repeat testing. ??In diabetic patients, HbA1c goals should be discussed with healthcare provider. Blood (Blood, Venous) 07/15/2021 1:01 PM CDT 07/15/2021 3:37 PM CDT Caryn Hayward P.A.-C. LAB BLOOD ADD-ON [facility] [address] [place] [address], [facility] OWAT [facility] [place] [address] [place] [address] * (ABNORMAL) Basic Metabolic Panel (01/11/2021 9:42 AM CDT) Potassium, P 4.9 3.6 - 5.2 mmol/L 01/11/2021 1:52 PM CDT OWAT Comment:Testing performed on serum Sodium, P 137 135 - 145 mmol/L 01/11/2021 1:52 PM CDT OWAT Chloride, P 100 98 - 107 mmol/L 01/11/2021 1:52 PM CDT OWAT Bicarbonate, P 28 22 - 29 mmol/L 01/11/2021 1:52 PM CDT OWAT Anion Gap, P 9 7 - 15 01/11/2021 1:52 PM CDT OWAT BUN (Blood Urea Nitrogen), P 15 8 - 24 mg/dL 01/11/2021 1:52 PM CDT OWAT Creatinine 1.29 0.74 - 1.35 mg/dL 01/11/2021 1:52 PM CDT OWAT eGFR-Black/Afri can Beninese 65 >=60 mL/min/BSA 01/11/2021 1:52 PM CDT OWAT Comment: ----ADDITIONAL INFORMATION---- Estimated GFR calculated using the 2009 CKD_EPI creatinine equation. eGFR Non-Black/Afric an Beninese 56(L) >=60 mL/min/BSA 01/11/2021 1:52 PM CDT OWAT Comment: ----ADDITIONAL INFORMATION---- Estimated GFR calculated using the 2009 CKD_EPI creatinine equation. Calcium, Total, P 10.5(H) 8.8 - 10.2 mg/dL 01/11/2021 1:52 PM CDT OWAT Glucose, P 147(H) 70 - 140 mg/dL 01/11/2021 1:52 PM CDT OWAT Blood (Blood, Venous) 01/11/2021 9:42 AM CDT 01/11/2021 1:15 PM CDT Salma Villeda R.N. LAB BLOOD ADD-ON [facility] [address] [place] [address], [place] OWAT [facility] [place] [address] [place] [address] * US Abdomen Complete (10/17/2020 3:25 PM CDT) Anatomical Region Laterality Modality Abdomen, Ultrasound RST LOS, Ultrasound ARZ LOS, Ultrasound FLA LOS N/A Ultrasound 10/17/2020 3:43 PM CDT Impressions 10/17/2020 3:51 PM CDT 1. Increased hepatic parenchymal echogenicity consistent with fatty infiltration. 2. The gallbladder is surgically absent. 3. 2.3 cm cyst in the upper pole of the right kidney and 1.8 cm cyst in the upper pole of the left kidney. 4. The pancreas and inferior vena cava are partially obscured by overlying bowel gas. Narrative 10/17/2020 3:51 PM CDT EXAM: US ABDOMEN COMPLETE COMPARISON: MR abdomen 11/14/2019 FINDINGS: Liver: Diffuse increased echogenicity consistent with hepatic steatosis. Gallbladder: Cholecystectomy. Intrahepatic ducts: Not dilated. Common duct: Not dilated. 5.6 mm diameter. Pancreas: Not seen due to overlying bowel gas. Right kidney: ?? Length: 10.6 cm. There is a 2.3 x 2.3 x 2.2 cm cyst in the upper pole of the right kidney. Normal echogenicity. No hydronephrosis. Left kidney: ?? Length: 11.4 cm. There is a cyst in the upper pole of the left kidney measuring 1.8 x 1.7 x 1.7 cm. Normal echogenicity. No hydronephrosis. Spleen: Normal. ??Spleen length: 12.7 cm Aorta: Normal caliber. IVC: Normal where seen. Partially obscured by overlying bowel gas. Ascites: ??None. Procedure Note Rodri Bennett M.D. - 10/17/2020 EXAM: US ABDOMEN COMPLETE COMPARISON: MR abdomen 11/14/2019 FINDINGS: Liver: Diffuse increased echogenicity consistent with hepatic steatosis. Gallbladder: Cholecystectomy. Intrahepatic ducts: Not dilated. Common duct: Not dilated. 5.6 mm diameter. Pancreas: Not seen due to overlying bowel gas. Right kidney: Length: 10.6 cm. There is a 2.3 x 2.3 x 2.2 cm cyst in the upper pole ofthe right kidney. Normal echogenicity. No hydronephrosis. Left kidney: Length: 11.4 cm. There is a cyst in the upper pole of the left kidneymeasuring 1.8 x 1.7 x 1.7 cm. Normal echogenicity. No hydronephrosis. Spleen: Normal. Spleen length: 12.7 cm Aorta: Normal caliber. IVC: Normal where seen. Partially obscured by overlying bowel gas. Ascites: None. IMPRESSION: 1. Increased hepatic parenchymal echogenicity consistent with fatty infiltration. 2. The gallbladder is surgically absent. 3. 2.3 cm cyst in the upper pole of the right kidney and 1.8 cm cyst inthe upper pole of the left kidney. 4. The pancreas and inferior vena cava are partially obscured by overlyingbowel gas. Salma Villeda R.N. Teresa US PROCEDURES * (ABNORMAL) Albumin, Random, Urine (10/08/2020 9:30 AM CDT) Microalbumin <12.0 mg/L 10/08/2020 11:25 AM CDT OWAT Comment:If clinically indica eloisa, contact the lab for additional testing. Creatinine 26 mg/dL 10/08/2020 11:22 AM CDT OWAT Albumin/Creatinine Ratio <46(H) <17 mg/g 10/08/2020 11:25 AM CDT OWAT Comment: This ratio may not correspond with the reference range because one or both of the values used to calculate the ratio was above or below the quantification limits. Urine (Urine, Clean Catch) 10/08/2020 9:30 AM CDT 10/08/2020 10:28 AM CDT Caryn Hayward P.A.-C. LAB URINE ORDERABL ES [facility] [address] [place] [address], [place] OWAT [facility] [place] [address] [place] [address] * HCV Ab w/Reflex to HCV PCR, S (medicare) (10/17/2016 9:13 AM CDT) HXHCV Ab [facility] Negative Negative POWERCHART Comment: Wdsomw-ut-rhfcqv ratio is <1.00. Test Performed by: [facility] - [address] [address] Blood 10/17/2016 9:13 AM CDT Franco Molina M.D. LAB MICROBIOLOGY - B LOOD ORDERABLES POWERCHART from Last 3 Months or Most Recently Relevant to Health Maintenance Care Teams Vocational Rehabilitation Counselor Relationship Specialty Start Date End Date Elsewhere, Pcp PCP - General Internal Medicine 09/20/21
--- OUTSIDE RECORDS SUMMARY | 2023-08-25 09:41 | XMS_ITS | Encounter Summary ---
Author Name Unknown Organization [facility] Address [address] [place] [address] Care Team Providers Care Financial Manager Name Role Phone Elsewhere, Pcp Primary Care Provider Unavailabl e Reason for Referral * Outpatient (Routine) - Authorized Specialty Diagnoses / Procedures Referred By Contac t Referred To Contact Diagnoses Atherosclerotic Heart Disease Of [place] Coronary Artery Without Angina Pectoris Procedures ECG 12 Lead Trevor Hicks APRN, C.N.P. [address] [phone] [facility] Region Referral ID Status Reason Start Date Expiration Date V isits Requested Visits Authorized [id number] Authorized 06/15/2023 06/14/2024 1 1 ING LAYER * Outpatient (Routine) - Authorized Specialty Diagnoses / Procedures Referred By Contac t Referred To Contact Cardiovascular Disease Trevor Hicks APRN, C.N.P. [address] [phone] [facility] Region Referral ID Status Reason Start Date Expiration Date V isits Requested Visits Authorized [id number] Authorized 06/15/2023 12/14/2024 1 1 ING LAYER * Outpatient (Routine) - Closed Specialty Diagnoses / Procedures Referred By Contac t Referred To Contact Diagnoses Atherosclerotic Heart Disease Of [place] Coronary Artery Without Angina Pectoris Procedures ECG 12 Lead Trevor Hicks APRN, C.N.P. [address] [phone] [facility] Referral ID Status Reason Start Date Expiration Date Visits Re quested Visits Authorized [id number] Closed 06/15/2023 06/14/2024 1 1 ING LAYER Reason for Visit * Reason Comments Follow-up Yearly follow up * Outpatient (Routine) - Closed Specialty Diagnoses / Procedures Referred By Contchely t Referred To Contact Cardiovascular Disease Trevor Hicks APRN, C.N.P. [address] [phone] [facility] Referral ID Status Reason Start Date Expiration Date Visits Re quested Visits Authorized [id number] Closed 06/17/2022 06/16/2025 1 1 Encounter Details Date Type Department Care Team (Latest Contact Info) Description 06/15/2023 3:15 PM ROOFING LAYER Office Visit Department of Cardiovascular Diseases in [address] [phone] Trevor Hicks APRN, C.N.P. [address] [phone] Atherosclerotic [facility] Disease Of [place] Coronary Artery Without Angina Pectoris (Primary Dx); Coronary Arterial Bypass Graft Status Post Personal History; Hypertension And Chronic Kidney Disease Stage 2; Hyperlipidemia; Diabetes Mellitus Type 2 Without Complication (HCC) Social History Tobacco Use Types Packs/Day Years [...] PM CDT Sexual Orientation Not on file documented as of this encounter Last Filed Vital Signs Vital Sign Reading Time Taken Comments Blood Pressure 117/75 06/15/2023 3:06 PM ROOFING LAYER Pulse 71 06/15/2023 3:06 PM ROOFING LAYER Temperature - - Respiratory Rate - - Oxygen Saturation 97% 06/15/2023 3:06 PM ROOFING LAYER room air Inhaled Oxygen Concentration - - Weight 100 kg (220 lb 10.9 oz) 06/15/2023 3:06 P M ROOFING LAYER Height - - Body Mass Index 35.62 10/10/2020 10:54 AM CDT documented in this encounter Progress Notes * Trevor Hicks, BRIAN, C.N.P. - 06/15/2023 3:15 PM CST SUBJECTIVE CHIEF COMPLAINT/REASON FOR VISIT Coronary artery disease HISTORY OF PRESENT ILLNESS Elvis Dawkins is seen today for follow-up on his underlying coronary artery disease. I last saw him in June of 2022. He tells me that he has been feeling fairly well overall. He had an episode of heartburn this morning but otherwise has not been experiencing regular chest pains. He has not been experiencing exertional chest pains but does admit that he has been more sedentary this winter.He does not recall any exertional chest discomfort when he was more active last summer. He feels that his functional capacity is overall unchanged from his baseline. He has not had problems with shortness of breath, palpitations, new weight gain, PND, or orthopnea. Since our last visit he tells me that he has reestablish primary care and is seeing Dr. Rivera from the [facility] (but seeing him in [place]). He reports that he was seen about a month ago and had a bunch labs done. He was told that his blood sugars and cholesterol numbers were good. He has a personal history of CABG x4 in 2015. This procedure was performed in [place]. He has had echocardiograms demonstrating inferior and inferolateral fixed defects along with a preserved ejection fraction. He has a personal history of multifactorial exertional dyspnea, hypertension, hyperlipidemia, obesity, obstructive sleep apnea (not CPAP adherent), tobacco use (pipe), and depression/anxiety. CURRENT MEDICATIONS Current Outpatient Medications: aspirin [address] tablet, Take 1 tablet (81 mg total) by mouth daily., Disp: , Rfl: atorvastatin (LIPITOR) 20 mg tablet, TAKE 1 TABLET BY MOUTH EVERY NIGHT AT BEDTIME, Disp: 90 tablet, Rfl: 0 BD Veo Insulin Syringe UF 0.3 mL 31 gauge x 15/64 syringe, USE 1 SYRINGE DAILY, Disp: 100 each, Rfl: 3 blood sugar diagnostic (glucose blood) strips, 3 test daily. Whatever is covered by insurance. Dx:E11.9, Disp: 300 strip, Rfl: 11 blood-glucose meter [facility], Dispense glucose meter, test strips, lancing device, and lancets covered by the patient insurance. Test 3 times per day. Dx: E11.40, E11.65, Disp: 1 each, Rfl: 0 CONTOUR TEST STRIPS strips, USE ONE STRIP TO CHECK GLUCOSE ONCE DAILY BEFORE BREAKFAST, Disp: 100 strip, Rfl: 4 dulaglutide (Trulicity) 1.5 mg/0.5 mL pen injector injection, Inject 0.5 mL (1.5 mg total) under the skin every 7 (seven) days., Disp: 12 mL, Rfl: 3 ibuprofen (ADVIL,MOTRIN) 200 mg tablet, Take 400 mg by mouth as needed. , Disp: , Rfl: insulin glargine (Lantus U-100 Insulin) 100 unit/mL injection, Inject 23 Units under the skin everyevening., Disp: 20 mL, Rfl: 3 lancets, Check sugar 3 times daily before meals, Disp: 300 each, Rfl: 3 lisinopriL (PRINIVIL,ZESTRIL) 2.5 mg tablet, Take 1 tablet (2.5 mg total) by mouth every morning., Disp: 90 tablet, Rfl: 3 LORazepam (ATIVAN) 1 mg tablet, Take 1 tablet (1 mg total) by mouth 2 (two) times a day as needed for anxiety., Disp: 60 tablet, Rfl: 0 metoprolol tartrate (LOPRESSOR) 25 mg tablet, Take 1 tablet (25 mg total) by mouth 2 (two) times a day., Disp: 180 tablet, Rfl: 3 nitroglycerin (NITROSTAT) 0.4 mg SL tablet, Place 1 tablet (0.4 mg total) under the tongue every 5 (five) minutes as needed for chest pain., Disp: 25 tablet, Rfl: 0 oxybutynin (DITROPAN-XL) 10 mg 24 hr tablet, TAKE 1 TABLET(10 MG) BY MOUTH AT BEDTIME, Disp: 90 tablet, Rfl: 3 polyethylene glycol (for_MIRALAX) 17 gram powder packet, Take 17 g by mouth daily., Disp: , Rfl: PSYLLIUM HUSK (METAMUCIL ORAL), Take 1.7 g by mouth at bedtime. , Disp: , Rfl: tamsulosin (FLOMAX) 0.4 mg 24 hr capsule, TAKE 1 CAPSULE(0.4 MG) BY MOUTH DAILY, Disp: 90 capsule, Rfl: 3 venlafaxine XR (EFFEXOR-XR) 150 mg 24 hr capsule, TAKE 1 CAPSULE(150 MG) BY MOUTH DAILY, Disp: 90 capsule, Rfl: 0 ALLERGIES Allergies Allergen Reactions Sulfamethoxazole-Trimethoprim Swelling Sertraline Other (see comments) MEDICAL HISTORY Past Medical History: Diagnosis Date Anxiety 01/03/2016 Apnea Sleep Obstructive 08/28/2016 Benign Prostatic Hyperplasia Hypertrophy With Obstruction 01/03/2016 Body Mass Index 34.0 To 34.9 Adult 01/03/2016 Callus [place] Foot 04/25/2016 Congestion Nasal 01/03/2016 Constipation 04/11/2015 Coronary Artery Disease (Unspecified) 01/03/2016 Diabetes Mellitus Type 2 With Diabetic Neuropathy (HCC) 01/03/2016 Diverticulosis Colon 04/25/2016 Dysuria 10/27/2017 Hay Fever 01/03/2016 Hernia Inguinal Left 12/10/2017 Hyperlipidemia 01/03/2016 Hypertensive Heart And Chronic Kidney Disease Without Heart Failure And With Stage 2 (Mild) ChronicKidney Disease 02/23/2017 Hyponatremia 11/12/2015 Hyponatremia 11/12/2015 Irritable Bowel Syndrome With Constipation 01/03/2016 Numbness 01/03/2016 Overactive Bladder 03/26/2016 Pain Penis 10/27/2017 Panic Disorder Episodic Paroxysmal Anxiety 01/03/2016 Paraphimosis 10/27/2017 Polyp Colon Adenomatous 02/05/2016 Primary Osteoarthritis Hip Bilateral 08/29/2016 Primary Osteoarthritis Knee Bilateral 12/23/2016 Retention Urinary Chronic 02/14/2016 Rhinitis Allergic 01/03/2016 Spasm Bladder 03/26/2016 Urgency Urinary 05/28/2017 SURGICAL HISTORY Past Surgical History: Procedure Laterality Date CHOLECYSTECTOMY COLON BIOPSY 06/28/2018 Adenomatous colonic polyps with Dr. Bowman recheck advised for 3 years COLONOSCOPY 07/27/2015 Four colon polyps. Repeat in [address] [facility]. COLONOSCOPY W/ POLYPECTOMY 05/11/[address]/[facility]. Dr. Marito davis prep, quality poor. Repeat in 1yr due to poor prep. CORONARY ARTERY BYPASS GRAFTS X 4 05/28/2014 INGUINAL HERNIA REPAIR Bilateral OBJECTIVE VITAL SIGNS BP 117/75 (BP Location: Left arm, Patient Position: Sitting, Cuff Size: Regular) Pulse 71 Wt 100 kg SpO2 97% Comment: room air BMI 35.62 kg/m?? PHYSICAL EXAMINATION General: Well-appearing in no acute distress, alert and oriented x 3. Vessels: No JVD or carotid bruits. Heart: Regular rate and rhythm. Normal S1-S2. No murmurs. Lungs: Clear bilaterally. Abdomen: Nondistended. Extremities: No pitting edema. DIAGNOSTICS ECG June 15, 2023 Narrative & Impression IMPRESSION: Sinus rhythm with 1st degree A-V block Low voltage QRS in precordial leads Right bundle branch block with secondary ST-T abnormalities When compared with ECG of 17-JUN-2022 09:17, No significant change was found ASSESSMENT / PLAN #1 Atherosclerotic Heart Disease Of [place] Coronary Artery Without Angina Pectoris #2 Coronary Arterial Bypass Graft Status Post Personal History He has seemingly done well over the last year with regard to his underlying coronary artery disease. He is on medical management including aspirin, high- intensity statin, and beta-sumi. He is alsoon an JOLYNN inhibitor for his combination CVD, hypertension, and diabetes. He reports no exertional chest discomfort symptoms over the last year. He did have an episode of what he describes as heartburn today but has not had recurrent symptoms on a day-to-day basis. He typically uses Tums and symptoms resolve suggesting that his symptoms are not ischemic in nature. We discussed what types of symptoms to be looking out for with regard to ischemic heart disease, appropriate use of sublingual nitroglycerin, and when to seek follow-up care in the clinic versus emergency room. I would encourage healthy lifestyle, good diabetes management, and a regular exercise regimen. #3 Hypertension And Chronic Kidney Disease Stage 2 His blood pressure is well controlled today so I did not make any additional changes to his medication regimen. #4 Hyperlipidemia Taking his word, he tells me that his cholesterol numbers are under good control. He is on atorvastatin (dose is not clear to me as the prescription in our system is old), possibly medium intensity at 20 mg daily. I have asked him to have his labs faxed from [facility] so that we will have these to review in the future. I would recommend an LDL less than 70. #5 Diabetes Mellitus Type 2 Without Complication (HCC) He tells me that his blood glucose is also ???good?? . As outlined above I do not have any updated labs to review. I would recommend an A1c less than 7% consistently for optimal diabetes management in the setting of known cardiovascular disease as long as he is not having hypoglycemia. PLAN FOR FOLLOW-UP: Recommend follow-up by Cardiology in one year. ING LAYER documented in this encounter Plan of Treatment Scheduled Orders Name Type Priority Associated Diagnoses Orde r Schedule ECG 12 Lead ECG Routine Atherosclerotic [facility] Disease Of [place] Coronary Artery Without Angina Pectoris Expected: 06/14/2024 (Approximate), Expires: 09/14/2024 Scheduled Referrals Name Type Priority Associated Diagnoses Order Schedule Cardiovascular Disease office visit (clinic) Outpatient Referral Routine Expect ed: 06/14/2024 (Approximate), Expires: 09/14/2024 documented as of this encounter Results * ECG 12 Lead (06/15/2023 4:14 PM ROOFING LAYER) Ventricular Rate ECG/Min 65 BPM MUSE CO Interval 246 ms MUSE QRSD Interval 124 ms MUSE QT Interval 424 ms MUSE QTC Interval 440 ms MUSE P [place] 72 degrees MUSE R [place] 62 degrees MUSE T Wave [place] 61 degrees MUSE 06/15/2023 4:14 PM ROOFING LAYER 06/15/2023 4:21 PM ROOFING LAYER Impressions MUSE - 06/15/2023 4:21 PM ROOFING LAYER Sinus rhythm with 1st degree A-V block [...] found Reviewed by RYLEY Bernabe Trevor Hicks APRN C.N.P. ECG ORDERABLE S MUSE NA documented in this encounter Visit Diagnoses Diagnosis Atherosclerotic [facility] Disease [facility] [place] Coronary Artery Without Angina Pectoris- Primary Coronary Arterial Bypass Graft Status Post Personal History Hypertension And Chronic Kidney Disease Stage 2 Hyperlipidemia Diabetes Mellitus Type 2 Without Complication (HCC) Atherosclerotic Heart Disease Of [place] Coronary Artery Without Angina Pectoris documented in this encounter Additional Health Concerns Assessment Noted Time PHQ-9 Depression Total Score: 4 07/17/19 22 10:55 AM CDT documented as of this encounter Care Teams Financial Manager Relationship Specialty Start Date End Date Elsewhere, Pcp PCP - General Internal Medicine 09/20/21 documented as of this encounter
--- OUTSIDE RECORDS SUMMARY | 2023-08-25 09:41 | XMS_ITS ---
Author Name Unknown Organization [facility] Address [address] [place] [address] Care Team Providers Care Reclaimer Name Role Phone Unavailable Unavailable Unavailable Surgery Details Not on file Complications Check Surgery Details section. Procedure Estimated Blood Loss Check Surgery Details section. Procedure Findings Check Surgery Details section. Procedure Specimens Taken Check Surgery Details section.
--- OUTSIDE RECORDS SUMMARY | 2023-08-25 09:41 | XMS_ITS | Referral Summary ---
Author Name Unknown Organization [facility] Address [address] [place] [address] Care Team Providers Care Aerial Applicator Pilot Name Role Phone Elsewhere, Pcp Primary Care Provider Unavailabl e Source Comments Patient records contain information from all sites at [facility]. For routine questions regarding patient records, call [phone] during business hours, M-F 8:00 AM - 5:00 PM Central Time. Record requests for emergency care only can be directed to [phone] at any time.[facility] Encounters Date Type Department Care Team Description 06/15/2023 4:03 PM BANQUET LEAD - 06/15/2023 11:59 PM BANQUET LEAD Hospital Encounter Department of Laboratory Medicine in [address] [phone] Trevor Hicks APRN, C.N.P. Atherosclerotic Heart Disease Of [place] Coronary Artery Without Angina Pectoris Discharge Disposition: Home or Self Care 06/15/2023 3:15 PM BANQUET LEAD Office Visit Department of Cardiovascular Diseases in [address] [phone] Trevor Hicks APRN, C.N.P. Atherosclerotic Heart Disease Of [place] Coronary Artery Without Angina Pectoris (Primary Dx); Coronary Arterial Bypass Graft Status Post Personal History; Hypertension And Chronic Kidney Disease Stage 2; Hyperlipidemia; Diabetes Mellitus Type 2 Without Complication (HCC) from Last 3 Months Allergies Active Allergy Reactions Criticality Noted Date [...] 300 strip 11 10/25/2018 Active blood-glucose meter [facility] Dispense glucose meter, test strips, lancing device, [...] Bilateral 08/29/2016 Apnea Sleep Obstructive 08/28/2016 Callus [place] Foot 04/25/2016 Diverticulosis Colon 04/25/2016 Overactive Bladder [...] 08/25/2019 Numbness 01/03/2016 08/25/2019 Hyponatremia 11/12/2015 03/14/2020 Immunizations Name Administration Dates Next Due HZV [...] ) (18 years or older) (PF) 01/26/2020 Social History Tobacco Use Types Packs/Day Years Used Date Smoking Tobacco: Former Pipe Smokeless Tobacco: Never Tobacco Cessation:Counseling Given: Not Answered Comments:pipe Alcohol Use Standard Drinks/Week Comments Not Currently 0 (1 standard drink = 0.6 oz pur e alcohol) AUDIT-C Answer Date Recorded Frequency of Alcohol Consumption Never 11/22/2018 Average Number of Drinks Not on file 019 Frequency of Binge Drinking Not on file [...] Comments Blood Pressure 117/75 06/15/2023 3:06 PM BANQUET LEAD Pulse 71 06/15/2023 3:06 PM BANQUET LEAD Temperature 36.7 ??C (98.1 ??F) 10/28/2021 10:51 AM C DT Respiratory Rate 12 07/16/2021 10:59 AM CDT Oxygen Saturation 97% 06/15/2023 3:06 PM BANQUET LEAD room air Inhaled Oxygen Concentration - - Weight 100 kg (220 lb 10.9 oz) 06/15/2023 3:06 P M BANQUET LEAD Height 167.6 cm (5' 6) 10/10/2020 10:54 AM CDT Body Mass Index 35.62 10/10/2020 10:54 AM CDT Plan of Treatment Not on file Medical Devices Implanted Type Area Smoke Inspector Device Identifier Shelf Expiration Date Model / [...] Diagnosis Comments ECG Routine 06/15/2023 4:14 PM BANQUET LEAD Atherosclerotic [facility] Disease [facility] [place] Coronary Artery Without Angina Pectoris LIPID PANEL, S Routine 06/17/2022 9:27 AM BANQUET LEAD 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 Personal History Hyperlipidemia POTASSIUM, S/P Routine 06/17/2022 9:27 AM BANQUET LEAD Hypertension And Chronic Kidney Disease Stage 2 CREATININE WITH EGFR, S/P Routine 06/17/2022 9:27 AM BANQUET LEAD Hypertension And Chronic Kidney Disease Stage 2 [...] * ECG 12 Lead (06/15/2023 4:14 PM BANQUET LEAD) Ventricular Rate ECG/Min 65 BPM MUSE NE Interval 246 ms MUSE QRSD Interval 124 ms MUSE QT Interval 424 ms MUSE QTC Interval 440 ms MUSE P [place] 72 degrees MUSE R [place] 62 degrees MUSE T Wave [place] 61 degrees MUSE 06/15/2023 4:14 PM BANQUET LEAD 06/15/2023 4:21 PM BANQUET LEAD Impressions MUSE - 06/15/2023 4:21 PM BANQUET LEAD Sinus rhythm with 1st degree A-V block [...] NA * Lipid Panel (06/17/2022 9:27 AM BANQUET LEAD) Triglycerides 115 mg/dL 06/17/2022 12:25 PM BANQUET LEAD OWAT Comment: ----REFERENCE VALUE---- Normal: <150 mg/dL Borderline High: 150-199 mg/dL High: 200-499 mg/dL Very High: > or =500 mg/dL Cholesterol, Total 137 mg/dL 2022 12:25 PM BANQUET LEAD OWAT Comment: ----REFERENCE VALUE---- Desirable: < 200 mg/dL Borderline High: 200 - 239 mg/dL High: > or = 240 mg/dL Cholesterol, LDL, Calculated 75 mg/dL 06/17/2022 12:25 PM BANQUET LEAD OWAT Comment: ----REFERENCE VALUE---- Desirable: <100 mg/dL Above Desirable: 100-129 mg/dL Borderline High: 130-159 mg/dL High: 160-189 mg/dL Very High: >=190 mg/dL ----ADDITIONAL INFORMATION---- LDL cholesterol calculated using the Aldrich/NIH equation. Cholesterol, HDL 41 >=40 mg/dL 06/18/19 12:25 PM BANQUET LEAD OWAT Cholesterol, Non-HDL, Calculated 96 mg/dL 06/17/2022 12:25 PM BANQUET LEAD OWAT Comment: ----REFERENCE VALUE---- Desirable: <130 mg/dL Above Desirable: 130-159 mg/dL Borderline High: 160-189 mg/dL High: 190-219 mg/dL Very High: > or =220 mg/dL Fasting (8 HR or more) Yes 06/17/2022 11:12 AM BANQUET LEAD OWAT Blood (Blood, Venous) 06/17/2022 9:27 AM BANQUET LEAD 06/17/2022 11:12 AM BANQUET LEAD Trevor Hicks APRN, C.N.P. LAB BLOOD ADD -ON Performing Organization Address [facility]/ZIP Co de Phone Number [facility] [address] [place] [address], [facility] OW[address] [facility] [place] [address] [place] [id number] * Potassium (06/17/2022 9:27 AM BANQUET LEAD) Potassium, P 4.8 3.6 - 5.2 mmol/L 06/17/2022 12:25 PM BANQUET LEAD OWAT Blood (Blood, Venous) 06/17/2022 9:27 AM BANQUET LEAD 06/17/2022 11:12 AM BANQUET LEAD Trevor Hicks APRN, C.N.P. LAB BLOOD ADD -ON Performing Organization Address [facility]/ZIP Co de Phone Number [facility] [address] [place] [address], [facility] [address] [facility] [place] [address], [place] [address] * Creatinine with Estimated GFR (06/17/2022 9:27 AM BANQUET LEAD) Creatinine 1.09 0.74 - 1.35 mg/dL 06/17/2022 12:25 PM BANQUET LEAD OWAT Estimated GFR (eGFR) 73 >=60 mL/min/BSA 06/17/2022 12:25 PM BANQUET LEAD OWAT Comment: Estimated GFR calculated using the 2020 CKD_EPI creatinine equation. Blood (Blood, Venous) 06/17/2022 9:27 AM BANQUET LEAD 06/17/2022 11:12 AM BANQUET LEAD Trevor Hicks APRN, C.N.P. LAB BLOOD ADD -ON Performing Organization Address [facility]/ZIP Co de Phone Number [facility] [address] [place] [address], [facility] [place] [address], [place] [address] * (ABNORMAL) Hemoglobin A1c (07/15/2021 1:01 PM CDT) Hemoglobin A1c, B 7.4(H) 4.2 - 5.6 % 07/15/2021 4:05 PM CDT AT Comment: Hemoglobin A1c values greater than or equal to 6.5 percent are diagnostic for diabetes mellitus. ??Diagnosis should be confirmed by repeat testing. ??In diabetic patients, HbA1c goals should be discussed with healthcare provider. Blood (Blood, Venous) 07/15/2021 1:01 PM CDT 07/15/2021 3:37 PM CDT Caryn Hayward P.A.-C. LAB BLOOD ADD-ON [facility] [address] [place] [address], [facility] [place] [address] [place] [address] * (ABNORMAL) Basic Metabolic Panel (01/11/2021 9:42 [...] 01/11/2021 1:52 PM CDT OWAT eGFR-Black/Afri can Gambian 65 >=60 mL/min/BSA 01/11/2021 1:52 PM CDT OWAT Comment: ----ADDITIONAL INFORMATION---- Estimated GFR calculated using the 2009 CKD_EPI creatinine equation. eGFR Non-Black/Afric an [place]ian 56(L) >=60 mL/min/BSA 01/11/2021 1:52 PM CDT OWAT Comment: ----ADDITIONAL INFORMATION---- Estimated GFR calculated using the 2009 CKD_EPI creatinine equation. Calcium, Total, P 10.5(H) 8.8 - 10.2 mg/dL 01/11/2021 1:52 PM CDT OWAT Glucose, P 147(H) 70 - 140 mg/dL 01/11/2021 1:52 PM CDT OWAT Blood (Blood, Venous) 01/11/2021 9:42 AM CDT 01/11/2021 1:15 PM CDT Salma Villeda R.N. LAB BLOOD ADD-ON [facility] [address] [place] [address], [place] OWAT [facility] [place] [address] [place] [address] * US Abdomen Complete (10/17/2020 3:25 PM [...] obscured by overlyingbowel gas. Salma Villeda R.N. IMG US PROCEDURES * (ABNORMAL) Albumin, Random, Urine [...] Caryn Hayward P.A.-C. LAB URINE ORDERABL ES [facility] [address] [place] [address], [facility] OW[address] [facility] [place] [address] [place] [address] * HCV Ab w/Reflex to HCV PCR, S (medicare) (10/17/2016 9:13 AM CDT) HXHCV Ab [facility] Negative Negative POWERCHART Comment: Ldelfc-xv-sygzmz ratio is <1.00. Test Performed by: [facility] - [address] [address] Blood 10/17/2016 9:13 AM CDT Franco Molina M.D. LAB MICROBIOLOGY - B LOOD ORDERABLES POWERCHART from Last 3 Months or Most Recently Relevant to Health Maintenance Care Teams Aerial Applicator Pilot Relationship Specialty Start Date End Date Elsewhere, Pcp PCP - General Internal Medicine 09/20/21
--- OUTSIDE RECORDS SUMMARY | 2023-08-25 09:41 | XMS_ITS | Encounter Summary ---
Author Name Unknown Organization [facility] Address [address] [place] [address] Care Team Providers Care Solar Photovoltaic Systems Engineer Name Role Phone Elsewhere, Pcp Primary Care Provider Unavailabl e Reason for Referral * Outpatient (Routine) - Closed Specialty Diagnoses / Procedures Referred By Shilpi joyce Referred To Contact Diagnoses Atherosclerotic Heart Disease Of [place] Coronary Artery Without Angina Pectoris Procedures ECG 12 Lead Trevor Hicks APRN, C.N.P. [address] [phone] [facility] Region Referral ID Status Reason Start Date Expiration Date Visits Re quested Visits Authorized [id number] Closed 06/15/2023 06/14/2024 1 1 CLERK Reason for Visit * Outpatient (Routine) - Closed Specialty Diagnoses / Procedures Referred By Shilpi joyce Referred To Contact Diagnoses Atherosclerotic Heart Disease Of [place] Coronary Artery Without Angina Pectoris Procedures ECG 12 Lead Trevor Hicks APRN, C.N.P. [address] [place] [phone] [facility] Region Referral ID Status Reason Start Date Expiration Date Visits Re quested Visits Authorized [id number] Closed 06/15/2023 06/14/2024 1 1 Encounter Details Date Type Department Care Team (Latest Contact Info) Description 06/15/2023 4:03 PM CASH CLERK - 06/15/2023 11:59 PM CASH CLERK Hospital Encounter Department of Laboratory Medicine in [address] [place] [address] Trevor Hicks, BRIAN, C.N.P. [address], [place] [address] Atherosclerotic Heart Disease Of [place] Coronary Artery Without Angina Pectoris Discharge Disposition: Home or Self Care Social History Tobacco Use Types Packs/Day Years Used Date Smoking Tobacco: Former Pipe Smokeless Tobacco: Never Comments:pipe Alcohol Use Standard Drinks/Week Comments Not [...] on file documented as of this encounter Medications at Time of Discharge Medication Sig Dispensed Refills Start Date End Date aspirin [address] tablet Take 1 tablet (81 mg total) by mouth daily. 10/10/2020 atorvastatin (LIPITOR) 20 mg tablet TAKE 1 TABLET BY MOUTH EVERY NIGHT AT BEDTIME 90 tablet 02/13/2022 BD Veo Insulin Syringe UF 0.3 mL 31 gauge x syringe USE 1 SYRINGE DAILY 100 each 3 04/01/2021 blood sugar diagnostic (glucose blood) strips 3 test daily. Whatever is covered by insurance. Dx:E11.9 300 strip 11 10/25/2018 blood-glucose meter [facility] Dispense glucose meter, test strips, lancing device, and lancets covered by the patient insurance. Test 3 times per day. Dx: E11.40, E11.65 1 each 10/25/2018 CONTOUR TEST STRIPS strips USE ONE STRIP TO CHECK GLUCOSE ONCE DAILY BEFORE BREAKFAST 100 strip 4 11/13/2017 dulaglutide (Trulicity) 1.5 mg/0.5 mL pen injector injection Inject 0.5 mL (1.5 mg total) under the skin every 7 (seven) days. 12 mL 3 03/24/2022 07/23/2024 ibuprofen (ADVIL,MOTRIN) 200 mg tablet Take 400 mg by mouth as needed. 11/25/2018 insulin glargine (Lantus U-100 Insulin) 100 unit/mL injection Inject 23 Units under the skin every evening. 20 mL 3 02/15/2021 lancets Check sugar 3 times daily before meals 300 each 3 10/25/2018 lisinopriL (PRINIVIL,ZESTRIL) 2.5 mg tablet Take 1 tablet (2.5 mg total) by mouth every morning. 90 tablet 3 01/14/2021 LORazepam (ATIVAN) 1 mg tablet Take 1 tablet (1 mg total) by mouth 2 (two) times a day as needed for anxiety. 60 tablet 10/18/2020 metoprolol tartrate (LOPRESSOR) 25 mg tablet Take 1 tablet (25 mg total) by mouth 2 (two) times a day. 180 tablet 3 01/14/2021 nitroglycerin (NITROSTAT) 0.[address] 1 tablet (0.4 mg total) under the tongue every 5 (five) minutes as needed for chest pain. 25 tablet 10/10/2020 oxybutynin (DITROPAN-XL) 10 mg 24 hr tablet TAKE 1 TABLET(10 MG) BY MOUTH AT BEDTIME 90 tablet 3 02/11/2022 polyethylene glycol (for_MIRALAX) 17 gram powder packet Take 17 g by mouth daily. 08/28/2016 PSYLLIUM HUSK (METAMUCIL ORAL) Take 1.7 g by mouth at bedtime. 04/25/2016 tamsulosin (FLOMAX) 0.4 mg 24 hr capsuleIndications:Ove ractive Bladder TAKE 1 CAPSULE(0.4 MG) BY MOUTH DAILY 90 capsule 3 03/03/2022 venlafaxine XR (EFFEXOR-XR) 150 mg 24 hr capsuleIndications:Anx iety TAKE 1 CAPSULE(150 MG) BY MOUTH DAILY 90 capsule 03/13/2022 documented as of this encounter Plan of Treatment Not on file documented as of this encounter Procedures Procedure Name Priority Date/Time Associated Diagnosis Comments ECG Routine 06/15/2023 4:14 PM CASH CLERK Atherosclerotic Heart Disease Of [place] Coronary Artery Without Angina Pectoris documented in this encounter Results * ECG 12 Lead (06/15/2023 4:14 PM CASH CLERK) Ventricular Rate ECG/Min 65 BPM MUSE ND Interval 246 ms MUSE QRSD Interval 124 ms MUSE QT Interval 424 ms MUSE QTC Interval 440 ms MUSE P [place] 72 degrees MUSE R [place] 62 degrees MUSE T Wave [place] 61 degrees MUSE 06/15/2023 4:14 PM CASH CLERK 06/15/2023 4:21 PM CASH CLERK Impressions MUSE - 06/15/2023 4:21 PM CASH CLERK Sinus rhythm with 1st degree A-V block [...] Visit Diagnoses Diagnosis Atherosclerotic Heart Disease Of [place] Coronary Artery Without Angina Pectoris documented in this encounter Additional Health Concerns Assessment Noted Time PHQ-9 Depression Total Score: 4 07/17/19 22 10:55 AM CDT documented as of this encounter Care Teams Solar Photovoltaic Systems Engineer Relationship Specialty Start Date End Date Elsewhere, Pcp PCP - General Internal Medicine 09/20/21 documented as of this encounter
--- OUTSIDE RECORDS SUMMARY | 2023-08-25 09:41 | XMS_ITS | Clinical Summary ---
Author Name Unknown Organization [facility] Address [place], [place] [address] Care Team Providers Care Motorcycle Builder Name Role Phone Clinic, No Pcp Or Primary Care Provider Unavaila ble Allergies Active Allergy Reactions Criticality Noted Date Comments Sulfamethoxazole-Trimethopr im Rash,Edema 04/11/2015 Sertraline *Unknown - Pt Doesn' t Remember 04/11/2015 Medications Medication Sig Dispensed Refills Start Date End Date Status aspirin (ECOTRIN) 81 mg enteric coated tablet Take 1 tablet by mouth once daily with a meal. 0 04/10/2015 Active docusate (COLACE) 100 mg capsule Take 1 capsule by mouth 2 times daily. 0 04/10/2015 Active Blood-Glucose Meter (ADVANCED GLUCOSE METER)Indications:T ype 2 diabetes mellitus without complication (HC) Dispense glucose meter, test strips and lancets covered by the patient insurance. Test 2 times per day. 1 Device 0 05/23/2015 Active fluticasone (50 mcg per actuation) nasal solution (FLONASE)Indication s:Allergic rhinitis, unspecified allergic rhinitis type Inhale 1 [place] into both nostrils once daily. 1 Bottle 2 10/11/2015 Active tamsulosin (FLOMAX) 0.4 mg capsuleIndications: Benign non-nodular prostatic hyperplasia without lower urinary tract symptoms Take 2 capsules by mouth once daily after a meal. 180 capsule 3 10/23/2015 Active Additional Information Patient taking differently: 0.4 mgOral DAILY AFTER MEAL, Reported on 06/23/2018 FLUoxetine (PROZAC) 20 mg capsuleIndications: Generalized anxiety disorder TAKE TWO CAPSULES BY MOUTH ONCE DAILY IN THE MORNING 90 capsule 03/17/2016 Active ranitidine (ZANTAC) 150 mg tabletIndications:I rritable bowel syndrome without diarrhea TAKE ONE TABLET BY MOUTH TWICE DAILY 180 tablet 1 05/30/2016 Active atorvastatin (LIPITOR) 20 mg tabletIndications:A rteriosclerotic heart disease (ASHD) TAKE ONE TABLET BY MOUTH ONCE DAILY 30 tablet 05/30/2016 Active metoprolol tartrate (LOPRESSOR) 25 mg tabletIndications:H ypertension TAKE ONE TABLET BY MOUTH TWICE DAILY 60 tablet 06/15/2016 Active NITROSTAT 0.4 mg sublingual tabletIndications:A rteriosclerotic heart disease (ASHD) PLACE ONE TABLET UNDER THE TONGUE EVERY 5 MINUTES IF NEEDED FOR CHEST PAIN. 25 tablet 09/13/2016 Active lisinopril (PRINIVIL; ZESTRIL) 5 mg tabletIndications:H ypertension Take 0.5 tablets by mouth once daily. 30 tablet 11 09/18/2016 Active glimepiride (AMARYL) 4 mg tablet Take 8 mg by mouth once daily with a meal. 0 09/18/2016 Active busPIRone (BUSPAR) 10 mg tablet Take 1 tablet by mouth 3 times daily if needed for Other (Specify). 0 09/18/2016 Active ipratropium (ATROVENT NASAL) 0.03 % nasal spray Inhale 2 Sprays in the nostril(s) 3 times daily. [place] dose in each nostril. 30 mL 09/18/2016 Active metFORMIN (GLUCOPHAGE) 1,000 mg tablet Take 1,000 mg by mouth once daily in the afternoon. Take 2 tabs (2000mg) Active PSYLLIUM HUSK ORAL Take by mouth. Ac tive psyllium husk, with sugar, (METAMUCIL) 3.4 gram packet Take 1 Packet by mouth 2 times daily. Active polyethylene glycol (MIRALAX; GLYCOLAX) 17 g powder for solution Take 17 g by mouth. 08/28/2016 Active PEPPERMINT OIL ORAL Take 1 Cap by mouth. Active insulin glargine (LANTUS) 100 unit/mL injectionIndication s:Uncontrolled type 2 diabetes mellitus with hyperglycemia (HC) Inject 10 Units subcutaneous before bedtime. 10 mL 10/18/2018 Active ibuprofen (ADVIL; MOTRIN) 200 mg tabletIndications:A cute pain of right knee Take 2 tablets by mouth 4 times daily if needed for Pain. 60 tablet 11/25/2018 Active polyethylene glycoL (MIRALAX) 17 gram/dose powderIndications:C onstipation, unspecified constipation type Take 17 g by mouth 2 times daily if needed for Constipation. 1 jar 08/06/2019 Active sennosides-docusate , 8.6-50 mg, (SENOKOT S) 8.6-50 mg tabletIndications:C onstipation, unspecified constipation type Take 1 tablet by mouth 2 times daily. 20 tablet 08/06/2019 Active Active Problems Problem Noted Date Diagnosed Date Colon polyps 05/11/2017 CKD (chronic kidney disease) stage 2, GFR 60-89 ml/min 05/11/2017 Obesity (BMI 30-39.9) 05/11/2017 Anxiety and depression 05/11/2017 Panic attacks 05/11/2017 BPH (benign prostatic hyperplasia) 04/09/2017 Urinary frequency 12/12/2015 Hyponatremia, mild 11/12/2015 Benign non-nodular prostatic hyperplasia with lower urinary tract symptoms 09/19/2015 Chronic constipation 04/11/2015 Irritable bowel syndrome without diarrhea 2014 Hypercholesteremia BPH (benign prostatic hypertrophy) Type 2 diabetes mellitus Hypertension Arteriosclerotic heart disease (ASHD) Immunizations Name Administration Dates Next Due Influenza Virus, Unspecified 12/13/2015 Influenza, High-dose Inactivated 12/12/2015 Influenza, IIV3 (Age >=3 years) 01/25/20 14,01/26/2013,01/26/2012,2010,02/11/2008,02/16/2004 Influenza, IIV4 (=>6mos) MDV 02/16/2015 Pneumococcal Poly,23-Valent (Pneumovax) 01/26/2012 Tdap 08/31/2015 Family History Medical History Relation Name Comments Other Sister Parkinsons Relation Name Status Comments Father (Age 48) pulmonary embolus Mother Sister Social History Tobacco Use Types Packs/Day Years Used Date Smoking Tobacco: Former Smokeless Tobacco: Never Chew Tobacco Cessation:Counseling Given: Yes Comments:smoked pipe for 48 years Alcohol Use Standard Drinks/Week Comments No 0 (1 standard drink = 0.6 oz pur e alcohol) Social Connections Answer Date Recorded Frequency of Communication with Friends and Fami ly Not on file 10/28/2022 Sex and Gender Information Value Date Recorded Sex Assigned at Not on file Gender Identity Not on file Sexual Orientation Not on file Obstetrics History Last Filed Vital Signs Vital Sign Reading Time Taken Comments Blood Pressure 147/93 08/06/2019 12:44 PM CDT Pulse 82 10/28/2022 10:50 AM CDT Temperature 37.2 ??C (99 ??F) 08/06/2019 12: 44 PM CDT Respiratory Rate 18 08/06/2019 12:4 4 PM CDT Oxygen Saturation 97% 10/28/2022 10: 50 AM CDT Inhaled Oxygen Concentration - - Weight 97.8 kg (215 lb 11.2 oz) 023 10:50 AM CDT Height 172.7 cm (5' 8) 08/06/2019 12:4 4 PM CDT Body Mass Index 32.8 08/06/2019 12:44 PM CDT Plan of Treatment Health Maintenance Due Date Last Done Comments Zoster (shingles) series for age 50+ (1 of 2) 2001 Pneumococcal series for age 65+ (2 of 2 - PCV) 01/25/2013 01/26/2012 BMI (ht and wt on same day) for age 18+ 10/07/2016 10/08/2015, 09/19/2015, 05/03/2015 Depression screening for age 12+ 10/10/2016 10/11/2015, 05/23/2015, 05/03/2015 Lipids for age 45-75 06/18/2020 06/19/2015 Colonoscopy through age 75 06/28/202106/28, 05/11/2017, 07/27/2015, Additional history exists COVID-19 vaccine series ( season) 2022 08/22/2021, 06/03/2020, 05/06/2020 Influenza for age 65+ 12/13/2023 12/13/2015 , 12/12/2015, 02/16/2015, Additional history exists Tetanus booster 08/30/2025 08/31/2015 Tdap Completed 08/31/2015 Hepatitis C screening for ag e 18-79 Completed 11/27/2015 AAA screening age 65-74 Completed 10/12/19, 04/18/2016, 11/12/2015, Additional history exists Procedures Procedure Name Priority Date/Time Associated Diagnosis Comments CT ABDOMEN PELVIS W Routine 10/12/2019 1 1:26 AM CDT Abdominal pain, lower Bilateral inguinal hernia COLONOSCOPY 06/28/2018 10:22 AM CDT ANTI HCV Routine 11/27/2015 3:43 PM CDT Urethritis LIPID PANEL W REFLEX MEASURED LDL Routine 06/19/2015 11:00 AM AMBULATORY TECHNOLOGIST Type 2 diabetes mellitus without complication from Last 3 Months or Most Recently Relevant to Health Maintenance Results * CT ABDOMEN PELVIS W (10/12/2019 11:26 AM CDT) Anatomical Region Laterality Modality Abdomen, Pelvis, AORTA, LIVER, SPLEEN Computed Tomography Lucy Morales NP CT * COLONOSCOPY (06/28/2018 10:22 AM CDT) 06/28/2018 10:2 2 AM CDT Narrative Transcriptions Clark Bowman MD - 06/28/2018 11:24 AM CDT Patient Name: Elvis Dawkins Procedure Date: 06/28/2018 Gender: Male Date of : 1950 Admit Type: Ambulatory Procedure: Colonoscopy Proceduralist: Mendoza Bowman [facility] Indications/Pre-Op Diagnosis: High risk colon cancer surveillance:Personal history of colonic polyps Medications: Propofol per Anesthesia Procedure Description: The patient had risks, benefits and alternatives explained to andgave informed consent. The patient had a stable cardiopulmonary status and judged an adequate candidate for conscious sedation. The colonoscope was passed through the anus and advanced to thececum, identified by appendiceal orifice and ileocecal valve. Thecolonoscopy was performed without difficulty. The patient tolerated the procedure well. The quality of the bowel preparation was adequate. Complications: No immediate complications. Estimated Blood Loss & Specimen: Estimated blood loss: none. Specimen collected - Yes and sent to Laboratory Findings: The perianal and digital rectal examinations were normal. Multiple semi-pedunculated polyps were found in the entire colon. The polyps were medium in size. These polyps were removed with a coldsnare. Resection and retrieval were complete. Multiple sessile polyps were found in the entire colon. The polypswere small in size. These polyps were removed with a cold biopsy forceps. Resection and retrieval were complete. A large amount of stool was found in the entire colon, interferingwith visualization. Lavage of the area was performed using copiousamounts, resulting in clearance with adequate visualization. Impressions/Post-Op Diagnosis: - Multiple medium polyps in the entire colon, removed with a coldsnare. Resected and retrieved. - Multiple small polyps in the entire colon, removed with a coldbiopsy forceps. Resected and retrieved. - Stool in the entire examined colon. Recommendation: - Telephone my office for pathology results in 1 week. Mendoza Bowman, 06/28/2018 11:23:54 AM This report has been signed electronically. Note Initiated On: 06/28/2018 10:22 AM Clark Bowman MD PROCEDURE ORD * ANTI HCV (11/27/2015 3:43 PM CDT) HEPATITIS C ANTIBODY Non-Reacti ve Non-Reacti ve 11/27/2015 8:47 PM CDT [facility] Blood BLOOD SPECIMEN / Unknown Venipuncture / Unknown 11/27/2015 3:43 PM CDT 11/27/2015 3:43 PM CDT [facility] - 11/27/2015 8:47 PM CDT Antibodies to HCV not detected; does not exclude the possibility of exposure to HCV. Clyde Liu MD SEND OUTS [facility] [address] [place] [address], * LIPID PANEL W REFLEX MEASURED LDL (06/19/2015 11:00 AM AMBULATORY TECHNOLOGIST) CHOLESTEROL,TOTAL 111 100 - 199 mg/dL 06/19/2015 11:58 AM AMBULATORY TECHNOLOGIST [facility] TRIGLYCERIDES 84 <150 mg/dL 06/19/2015 11:58 AM AMBULATORY TECHNOLOGIST [facility] HDL CHOLESTEROL 41 >40 mg/dL 06/19/2015 11:58 AM AMBULATORY TECHNOLOGIST [facility] NON-HDL CHOLESTEROL 70 <145 mg/dl 06/19/2015 11:58 AM AMBULATORY TECHNOLOGIST [facility] CHOL/HDL RATIO 2.71 <4.50 06/19/2015 11:58 AM AMBULATORY TECHNOLOGIST [facility] LDL CHOLESTEROL 53 <=130 mg/dL 06/19/2015 11:58 AM AMBULATORY TECHNOLOGIST [facility] PATIENT STATUS FASTING 06/19/2015 11:58 AM AMBULATORY TECHNOLOGIST [facility] Blood specimen (specimen) BLOOD SPECIMEN / Unknown Venipuncture / Unknown 06/19/2015 11:00 AM AMBULATORY TECHNOLOGIST 06/19/2015 11:00 AM AMBULATORY TECHNOLOGIST Bradley Cadena MD CHEMISTRY [facility] [address] [place] [address], from Last 3 Months or Most Recently Relevant to Health Maintenance Advance Directives * Full Code (Latest Code Status on File) Date Activated Date Inactivated Comments 06/28/2018 9:40 AM 06/28/2018 2:39 PM * Full Code Date Activated Date Inactivated Comments 05/11/2017 7:52 AM 05/11/2017 11:39 AM Care Teams Motorcycle Builder Relationship Specialty Start Date End Date Clinic, No Pcp Or . PCP - General 10/28/22
--- NOTE | 2023-08-25 10:19 | W.ANESCHARGE ---
Anesthesia Charges Start Date/Time Anesthesia Start Date: 08/25/23 Anesthesia Start Time: 10:36 Stop Date/Time Anesthesia Stop Date: 08/25/23 Anesthesia Stop Time: 11:21 Summary Extremes of Age - Over 70 or under 1: MDA
--- NOTE | 2023-08-25 11:23 | W.ANESCHARGE ---
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
== END 2023-08-25 09:39 | disposition home or self-care (01) ==
LOC: OP CLINIC 09:38
PROVIDERS: PCP Family Medicine; Visit Provider Surgery
DX: Z12.11 Encounter for screening for malignant neoplasm of colon (principal); K63.5 Polyp of colon; Z86.010 Personal history of colon polyps
CPT/HCPCS: 00811; 45385; 88305; 99100; J2371; J2704

== ENCOUNTER 2023-10-05 09:10 | Outpatient (CLI) | payer MEDICARE, OTHER, SELFPAY ==
--- OUTSIDE RECORDS SUMMARY | 2023-10-05 09:14 | XMS_ITS | Clinical Summary ---
Author Organization [facility] Address [address] [place] [address] Care Team Providers Care Diamond Sawer Name Role Phone Elsewhere, Pcp Primary Care Provider Unavailabl e Source Comments Patient records contain information from all sites at [facility]. For routine questions regarding patient records, call [phone] during business hours, M-F 8:00 AM - 5:00 PM Central Time. Record requests for emergency care only can be directed to [phone] at any time.[facility] Allergies Active Allergy Reactions Criticality Noted Date [...] 300 strip 11 10/25/2018 Active blood-glucose meter [facility] [...] Bilateral 08/29/2016 Apnea Sleep Obstructive 08/28/2016 Callus [place] Foot 04/25/2016 Diverticulosis Colon 04/25/2016 Overactive Bladder [...] Comments Blood Pressure 117/75 06/15/2023 3:06 PM CIGARETTE MAKING MACHINE OPERATOR Pulse 71 06/15/2023 3:06 PM CIGARETTE MAKING MACHINE OPERATOR Temperature 36.7 ??C (98.1 ??F) 10/28/2021 10:51 AM C DT Respiratory Rate 12 07/16/2021 10:59 AM CDT Oxygen Saturation 97% 06/15/2023 3:06 PM CIGARETTE MAKING MACHINE OPERATOR room air Inhaled Oxygen Concentration - - Weight 100 kg (220 lb 10.9 oz) 06/15/2023 3:06 P M CIGARETTE MAKING MACHINE OPERATOR Height 167.6 cm (5' 6) 10/10/2020 10:54 [...] Cancer Surveillance 06/28/2021 Urine Albumin 10/08/2021 10/08/2020, 0306/2019, 09/22/2018, Additional history exists Sodium Level 01/11/2022 01/11/2021, 02/13, 11/10/2019, Additional history exists Hemoglobin A1C 01/14/2022 07/15/2021, 1004/2020, 10/08/2020, Additional history exists COVID-19 Vaccine ( - 2022-2 4 season) 2022 08/22/2021, 03/11/2021, 06/03/2020, Additional [...] history exists Medical Devices Implanted Type Area Upholstery Cleaner Device Identifier Shelf Expiration Date Model / [...] Procedure Name Priority Date/Time Associated Diagnosis Comments LIPID PANEL, S Routine 06/17/2022 9:27 AM CIGARETTE MAKING MACHINE OPERATOR 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 Personal History Hyperlipidemia POTASSIUM, S/P Routine 06/17/2022 9:27 AM CIGARETTE MAKING MACHINE OPERATOR Hypertension And Chronic Kidney Disease Stage 2 CREATININE WITH EGFR, S/P Routine 06/17/2022 9:27 AM CIGARETTE MAKING MACHINE OPERATOR Hypertension And Chronic Kidney Disease Stage 2 [...] Recently Relevant to Health Maintenance Results * Lipid Panel (06/17/2022 9:27 AM CIGARETTE MAKING MACHINE OPERATOR) Triglycerides 115 mg/dL 06/17/2022 12:25 PM CIGARETTE MAKING MACHINE OPERATOR OWAT Comment: ----REFERENCE VALUE---- Normal: <150 mg/dL Borderline High: 150-199 mg/dL High: 200-499 mg/dL Very High: > or =500 mg/dL Cholesterol, Total 137 mg/dL 2022 12:25 PM CIGARETTE MAKING MACHINE OPERATOR OWAT Comment: ----REFERENCE VALUE---- Desirable: < 200 mg/dL Borderline High: 200 - 239 mg/dL High: > or = 240 mg/dL Cholesterol, LDL, Calculated 75 mg/dL 06/17/2022 12:25 PM CIGARETTE MAKING MACHINE OPERATOR OWAT Comment: ----REFERENCE VALUE---- Desirable: <100 mg/dL Above Desirable: 100-129 mg/dL Borderline High: 130-159 mg/dL High: 160-189 mg/dL Very High: >=190 mg/dL ----ADDITIONAL INFORMATION---- LDL cholesterol calculated using the Aldrich/NIH equation. Cholesterol, HDL 41 >=40 mg/dL 06/18/19 12:25 PM CIGARETTE MAKING MACHINE OPERATOR OWAT Cholesterol, Non-HDL, Calculated 96 mg/dL 06/17/2022 12:25 PM CIGARETTE MAKING MACHINE OPERATOR OWAT Comment: ----REFERENCE VALUE---- Desirable: <130 mg/dL Above Desirable: 130-159 mg/dL Borderline High: 160-189 mg/dL High: 190-219 mg/dL Very High: > or =220 mg/dL Fasting (8 HR or more) Yes 06/17/2022 11:12 AM CIGARETTE MAKING MACHINE OPERATOR OWAT Blood (Blood, Venous) 06/17/2022 9:27 AM CIGARETTE MAKING MACHINE OPERATOR 06/17/2022 11:12 AM CIGARETTE MAKING MACHINE OPERATOR Trevor Hicks APRN, C.N.P. LAB BLOOD ADD -ON [facility] [address] [place] [address], [facility] OWAT [facility] [place] [address] [place] [address] * Potassium (06/17/2022 9:27 AM CIGARETTE MAKING MACHINE OPERATOR) Potassium, P 4.8 3.6 - 5.2 mmol/L 06/17/2022 12:25 PM CIGARETTE MAKING MACHINE OPERATOR OWAT Blood (Blood, Venous) 06/17/2022 9:27 AM CIGARETTE MAKING MACHINE OPERATOR 06/17/2022 11:12 AM CIGARETTE MAKING MACHINE OPERATOR Cooper Hernandez APRNNMichelleP. LAB BLOOD ADD -ON Performing Organization Address City/[facility] Co de Phone Number [facility] [address] [place] [address], [place] OWAT [facility] [place] [address] [place] [address] * Creatinine with Estimated GFR (06/17/2022 9:27 AM CIGARETTE MAKING MACHINE OPERATOR) Creatinine 1.09 0.74 - 1.35 mg/dL 06/17/2022 12:25 PM CIGARETTE MAKING MACHINE OPERATOR OWAT Estimated GFR (eGFR) 73 >=60 mL/min/BSA 06/17/2022 12:25 PM CIGARETTE MAKING MACHINE OPERATOR OWAT Comment: Estimated GFR calculated using the 2020 CKD_EPI creatinine equation. Blood (Blood, Venous) 06/17/2022 9:27 AM CIGARETTE MAKING MACHINE OPERATOR 06/17/2022 11:12 AM CIGARETTE MAKING MACHINE OPERATOR Cooper Hernandez APRNNMichelleP. LAB BLOOD ADD -ON Performing Organization Address City/[facility] Co de Phone Number [facility] [address] [place] [address], [place] OW[place] [facility] [place] [address] [address] * (ABNORMAL) Hemoglobin A1c (07/15/2021 1:01 PM [...] CDT Caryn Hayward P.A.-C. LAB BLOOD ADD-ON [facility] [address] [place] [address], [place] [facility] [place] [address] [place] [address] * (ABNORMAL) Basic Metabolic Panel (01/11/2021 9:42 [...] 01/11/2021 1:52 PM CDT OWAT eGFR-Black/Afri can Albanian 65 >=60 mL/min/BSA 01/11/2021 1:52 PM CDT OWAT Comment: ----ADDITIONAL INFORMATION---- Estimated GFR calculated using the 2009 CKD_EPI creatinine equation. eGFR Non-Black/Afric an Albanian 56(L) >=60 mL/min/BSA 01/11/2021 1:52 PM CDT OWAT Comment: ----ADDITIONAL INFORMATION---- Estimated GFR calculated using the 2009 CKD_EPI creatinine equation. Calcium, Total, P 10.5(H) 8.8 - 10.2 mg/dL 01/11/2021 1:52 PM CDT OWAT Glucose, P 147(H) 70 - 140 mg/dL 01/11/2021 1:52 PM CDT OWAT Blood (Blood, Venous) 01/11/2021 9:42 AM CDT 01/11/2021 1:15 PM CDT Salma Villeda R.N. LAB BLOOD ADD-ON [facility] [address] [place] [facility] [place] [address], [place] OW[place] [facility] [place] [address] [place] [address] * US Abdomen Complete (10/17/2020 3:25 PM [...] Caryn Hayward P.A.-C. LAB URINE ORDERABL ES [facility] [address] [place] [address], [place] OW[place] [facility] [place] [address] [place] [address] * HCV Ab w/Reflex to HCV PCR, S (medicare) (10/17/2016 9:13 AM CDT) HXHCV Ab [facility] Negative Negative POWERCHART Comment: Klzhln-[id number]-[id number] ratio is <1.00. Test Performed by: [facility] - [address] [address] Blood 10/17/2016 9:13 AM CDT Franco Molina M.D. LAB MICROBIOLOGY - B LOOD ORDERABLES POWERCHART from Last 3 Months or Most Recently Relevant to Health Maintenance Care Teams Diamond Sawer Relationship Specialty Start Date End Date Elsewhere, Pcp PCP - General Internal Medicine 09/20/21
--- OUTSIDE RECORDS SUMMARY | 2023-10-05 09:14 | XMS_ITS ---
Author Organization [facility] Address [address] [place] [address] Care Team Providers Care Apple Thinner Name Role Phone Unavailable Unavailable Unavailable Surgery Details Not on file Complications Check Surgery Details section. Procedure Estimated Blood Loss Check Surgery Details section. Procedure Findings Check Surgery Details section. Procedure Specimens Taken Check Surgery Details section.
--- OUTSIDE RECORDS SUMMARY | 2023-10-05 09:14 | XMS_ITS | Clinical Summary ---
Author Organization [facility] Address [place], [place] [address] Care Team Providers Care Binding Cementer French Cord Name Role Phone Clinic, No Pcp Or [...] rhinitis, unspecified allergic rhinitis type Inhale 1 Monson into both nostrils once daily. 1 Bottle [...] Sprays in the nostril(s) 3 times daily. Monson dose in each nostril. 30 mL 09/18/2016 [...] diabetes mellitus Hypertension Arteriosclerotic heart disease (ASHD) Encounters Date Type Department Care Team Description 08/26/2023 Lab Requisition [facility] [phone] Toshia Murray MD from Last 3 Months Immunizations Name Administration Dates Next Due Influenza [...] 07/27/2015, Additional history exists COVID-19 vaccine series (2022- season) 2022 08/22/2021, 06/03/2020, 05/06/2020 Influenza for age 65+ 12/13/2023 12/13/2015 , 12/12/2015, 02/16/2015, Additional history exists Tetanus booster 08/30/2025 08/31/2015 Tdap Completed 08/31/2015 Hepatitis C screening for ag e 18-79 Completed 11/27/2015 AAA screening age 65-74 Completed 10/12/19, 04/18/2016, 11/12/2015, Additional history exists Procedures Procedure Name Priority Date/Time Associated Diagnosis Comments LAB TRACKING EVENT Routine 08/25/2023 10 :55 AM CDT PATH TISSUE EXAM Routine 08/25/2023 10:[address] ABDOMEN PELVIS W Routine 10/12/2019 1 1:26 AM CDT Abdominal pain, lower Bilateral inguinal hernia COLONOSCOPY 06/28/2018 10:22 AM CDT ANTI HCV Routine 11/27/2015 3:43 PM CDT Urethritis LIPID PANEL W REFLEX MEASURED LDL Routine 06/19/2015 11:00 AM ELECTRIC RAZOR MECHANIC Type 2 diabetes mellitus without complication from Last 3 Months or Most Recently Relevant to Health Maintenance Results * LAB TRACKING EVENT (08/25/2023 10:55 AM CDT) Other (Other) Client Collect / Unknown 08/25/2023 10:55 AM CDT 08/26/2023 2:21 PM CDT Toshia Murray MD LAB BILL ONLY [facility] [address] [place] [id number], * PATH TISSUE EXAM (08/25/2023 10:55 AM CDT) Case Report Pathology Report ?Case: [id number] ? Authorizing Provider: ??Toshia Murray MD ?Collected: ? 08/25/2023 1055 ? Ordering Location: ? [facility] ?Received: ?08/26/2023 1458 ? Pathologist: ? Romelia Lal MD ? Specimen: ?Hepatic Flexure Polyp ? 08/27/2023 5:43 PM CDT [facility] Final Diagnosis A) COLON, HEPATIC FLEXURE, POLYPECTOMIES: 1. Tubular adenomas (2) 2. Negative for high grade dysplasia 3. Per the colonoscopy report: ?? a. Polyp sizes: 3 mm - 5 mm ?? b. Resection: Complete ?? c. Retrieval: Complete 08/27/2023 5:43 PM CDT [facility] Comment A) We are aware of the patient now having at least 10 adenomatous polyps of the colon. If the patient has extracolonic manifestations or a family history of cancer, consideration for a referral to a genetics specialist for possible genetic testing to evaluate for a potential polyposis syndrome (attenuated familial adenomatous polyposis or MYH polyposis in particular) is reasonable as the results may have implications for both the patient and immediate family members. Reference: Diego Mcgowan S. When Should Patients Undergo Genetic Testing for Hereditary Colon Cancer Syndromes? Clin Gastroenterol Hepatol. 2018 Fe;16(2):181-183 . Epub 2016Feb 20. PMID: [id number]. 08/27/2023 5:43 PM CDT [facility] Clinical Information Surveillance colonoscopy 08/27/2023 5:43 PM CDT [facility] Gross Description A) Received in formalin are 7 lopez mucosal fragments ranging from 2 mm to 6 mm in greatest dimension, which are entirely submitted in one cassette. It is labeled with the patient's name and designated hepatic flexure. Armen Castellon 08/26/2023 3:08 PM 08/27/2023 5:43 PM CDT [facility]- [facility]ORY Microscopic Description The final diagnosis is based on microscopic examination of appropriate sections of all specimens. 08/27/2023 5:43 PM CDT [facility]ORY Additional Information Interpreted at [facility], Central Laboratory - [address] [facility] [address], [place] [address] 08/27/2023 5:43 PM CDT [facility]- EN[facility] Other (Hepatic Flexure Polyp) 08/25/2023 10:55 AM CDT 08/26/2023 2:58 PM CDT Toshia Murray MD PATHOLOGY/CYTOLOGY [facility] [address] [place] [address], * CT ABDOMEN PELVIS W (10/12/2019 11:26 [...] Type: Ambulatory Procedure: Colonoscopy Proceduralist: [facility] Indications/Pre-Op Diagnosis: High risk colon cancer surveillance:Personal [...] ve Non-Reacti ve 11/27/2015 8:47 PM CDT [facility] Blood BLOOD SPECIMEN / Unknown Venipuncture / Unknown 11/27/2015 3:43 PM CDT 11/27/2015 3:43 PM CDT Narrative [facility] - 11/27/2015 8:47 PM CDT Antibodies to HCV not detected; does not exclude the possibility of exposure to HCV. Clyde Liu MD SEND OUTS [facility] [address] [place] [address], * LIPID PANEL W REFLEX MEASURED LDL (06/19/2015 11:00 AM ELECTRIC RAZOR MECHANIC) CHOLESTEROL,TOTAL 111 100 - 199 mg/dL 06/19/2015 11:58 AM ELECTRIC RAZOR MECHANIC [facility] TRIGLYCERIDES 84 <150 mg/dL 06/19/2015 11:58 AM ELECTRIC RAZOR MECHANIC [facility] HDL CHOLESTEROL 41 >40 mg/dL 06/19/2015 11:58 AM ELECTRIC RAZOR MECHANIC [facility] NON-HDL CHOLESTEROL 70 <145 mg/dl 06/19/2015 11:58 AM ELECTRIC RAZOR MECHANIC [facility] CHOL/HDL RATIO 2.71 <4.50 06/19/2015 11:58 AM ELECTRIC RAZOR MECHANIC [facility] LDL CHOLESTEROL 53 <=130 mg/dL 06/19/2015 11:58 AM ELECTRIC RAZOR MECHANIC [facility] PATIENT STATUS FASTING 06/19/2015 11:58 AM ELECTRIC RAZOR MECHANIC [facility] Blood specimen (specimen) BLOOD SPECIMEN / Unknown Venipuncture / Unknown 06/19/2015 11:00 AM ELECTRIC RAZOR MECHANIC 06/19/2015 11:00 AM ELECTRIC RAZOR MECHANIC Bradley Cadena MD CHEMISTRY [facility] [address] [place] [place] [address], [place] [phone] from Last 3 Months or Most Recently Relevant to Health Maintenance Advance Directives * Full Code (Latest Code Status on File) Date Activated Date Inactivated Comments 06/28/2018 9:40 AM 06/28/2018 2:39 PM * Full Code Date Activated Date Inactivated Comments 05/11/2017 7:52 AM 05/11/2017 11:39 AM Care Teams Binding Cementer French Cord Relationship Specialty Start Date End Date Clinic, No Pcp Or . PCP - General 10/28/22
--- OUTSIDE RECORDS SUMMARY | 2023-10-05 09:14 | XMS_ITS | Referral Summary ---
Author Organization [facility] Address [address] [place] [address] Care Team Providers Care Probe Operator Name Role Phone Elsewhere, Pcp Primary Care Provider Unavailabl e Source Comments Patient records contain information from all sites at [facility]. For routine questions regarding patient records, call [phone] during business hours, M-F 8:00 AM - 5:00 PM Central Time. Record requests for emergency care only can be directed to [phone] at any time.[facility] Allergies Active Allergy Reactions Criticality Noted Date [...] Bilateral 08/29/2016 Apnea Sleep Obstructive 08/28/2016 Callus [place] Foot 04/25/2016 Diverticulosis Colon 04/25/2016 Overactive Bladder [...] Comments Blood Pressure 117/75 06/15/2023 3:06 PM MAINTENANCE MECHANIC ENGINE Pulse 71 06/15/2023 3:06 PM MAINTENANCE MECHANIC ENGINE Temperature 36.7 ??C (98.1 ??F) 10/28/2021 10:51 AM C DT Respiratory Rate 12 07/16/2021 10:59 AM CDT Oxygen Saturation 97% 06/15/2023 3:06 PM MAINTENANCE MECHANIC ENGINE room air Inhaled Oxygen Concentration - - Weight 100 kg (220 lb 10.9 oz) 06/15/2023 3:06 P M MAINTENANCE MECHANIC ENGINE Height 167.6 cm (5' 6) 10/10/2020 10:54 AM CDT Body Mass Index 35.62 10/10/2020 10:54 AM CDT Plan of Treatment Not on file Medical Devices Implanted Type Area Rapid Transit Operator Device Identifier Shelf Expiration Date Model / [...] LIPID PANEL, S Routine 06/17/2022 9:27 AM MAINTENANCE MECHANIC ENGINE 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 Personal History Hyperlipidemia POTASSIUM, S/P Routine 06/17/2022 9:27 AM MAINTENANCE MECHANIC ENGINE Hypertension And Chronic Kidney Disease Stage 2 CREATININE WITH EGFR, S/P Routine 06/17/2022 9:27 AM MAINTENANCE MECHANIC ENGINE Hypertension And Chronic Kidney Disease Stage 2 [...] Results * Lipid Panel (06/17/2022 9:27 AM MAINTENANCE MECHANIC ENGINE) Triglycerides 115 mg/dL 06/17/2022 12:25 PM MAINTENANCE MECHANIC ENGINE OWAT Comment: ----REFERENCE VALUE---- Normal: <150 mg/dL Borderline High: 150-199 mg/dL High: 200-499 mg/dL Very High: > or =500 mg/dL Cholesterol, Total 137 mg/dL 2022 12:25 PM MAINTENANCE MECHANIC ENGINE OWAT Comment: ----REFERENCE VALUE---- Desirable: < 200 mg/dL Borderline High: 200 - 239 mg/dL High: > or = 240 mg/dL Cholesterol, LDL, Calculated 75 mg/dL 06/17/2022 12:25 PM MAINTENANCE MECHANIC ENGINE OWAT Comment: ----REFERENCE VALUE---- Desirable: <100 mg/dL Above Desirable: 100-129 mg/dL Borderline High: 130-159 mg/dL High: 160-189 mg/dL Very High: >=190 mg/dL ----ADDITIONAL INFORMATION---- LDL cholesterol calculated using the Aldrich/NIH equation. Cholesterol, HDL 41 >=40 mg/dL 03/07/20 23 12:25 PM MAINTENANCE MECHANIC ENGINE OWAT Cholesterol, Non-HDL, Calculated 96 mg/dL 06/17/2022 12:25 PM MAINTENANCE MECHANIC ENGINE OWAT Comment: ----REFERENCE VALUE---- Desirable: <130 mg/dL Above Desirable: 130-159 mg/dL Borderline High: 160-189 mg/dL High: 190-219 mg/dL Very High: > or =220 mg/dL Fasting (8 HR or more) Yes 06/17/2022 11:12 AM MAINTENANCE MECHANIC ENGINE OWAT Blood (Blood, Venous) 06/17/2022 9:27 AM MAINTENANCE MECHANIC ENGINE 06/17/2022 11:12 AM MAINTENANCE MECHANIC ENGINE Loren Hernandez APRN.N.P. LAB BLOOD ADD -ON [facility] [address], [place] [address], [facility] OWAT [facility] [place] [address] [place] [address] * Potassium (06/17/2022 9:27 AM MAINTENANCE MECHANIC ENGINE) Potassium, P 4.8 3.6 - 5.2 mmol/L 06/17/2022 12:25 PM MAINTENANCE MECHANIC ENGINE OWAT Blood (Blood, Venous) 06/17/2022 9:27 AM MAINTENANCE MECHANIC ENGINE 06/17/2022 11:12 AM MAINTENANCE MECHANIC ENGINE Loren Hernandez APRN.N.P. LAB BLOOD ADD -ON [facility] [address] [place] [address], [place] OW[place] [facility] [place] [address] [place] [address] * Creatinine with Estimated GFR (06/17/2022 9:27 AM MAINTENANCE MECHANIC ENGINE) Creatinine 1.09 0.74 - 1.35 mg/dL 06/17/2022 12:25 PM MAINTENANCE MECHANIC ENGINE OWAT Estimated GFR (eGFR) 73 >=60 mL/min/BSA 06/17/2022 12:25 PM MAINTENANCE MECHANIC ENGINE OWAT Comment: Estimated GFR calculated using the 2020 CKD_EPI creatinine equation. Blood (Blood, Venous) 06/17/2022 9:27 AM MAINTENANCE MECHANIC ENGINE 06/17/2022 11:12 AM MAINTENANCE MECHANIC ENGINE Trevor Hicks APRN CMichelleNRah LAB BLOOD ADD -ON [facility] [address] [place] [address], [place] OW[place] [facility] [place] [address] [place] [address] * (ABNORMAL) Hemoglobin A1c (07/15/2021 1:01 PM [...] CDT Caryn Hayward P.A.-C. LAB BLOOD ADD-ON [facility] [address] [place] [address], [place] [facility] [place] [address] [place] [address] * (ABNORMAL) Basic Metabolic Panel (01/11/2021 9:42 [...] 01/11/2021 1:52 PM CDT OWAT eGFR-Black/Afri can Moldovan 65 >=60 mL/min/BSA 01/11/2021 1:52 PM CDT OWAT Comment: ----ADDITIONAL INFORMATION---- Estimated GFR calculated using the 2009 CKD_EPI creatinine equation. eGFR Non-Black/Afric an Moldovan 56(L) >=60 mL/min/BSA 01/11/2021 1:52 PM CDT OWAT Comment: ----ADDITIONAL INFORMATION---- Estimated GFR calculated using the 2009 CKD_EPI creatinine equation. Calcium, Total, P 10.5(H) 8.8 - 10.2 mg/dL 01/11/2021 1:52 PM CDT OWAT Glucose, P 147(H) 70 - 140 mg/dL 01/11/2021 1:52 PM CDT OWAT Blood (Blood, Venous) 01/11/2021 9:42 AM CDT 01/11/2021 1:15 PM CDT Salma Villeda R.N. LAB BLOOD ADD-ON [facility] [address] [place] [address], [facility] OWAT [facility] [place] [address] [place] [address] * US Abdomen Complete (10/17/2020 3:25 PM [...] Caryn Hayward P.A.-C. LAB URINE ORDERABL ES [facility] [address] [place] [address], [facility] OWAT [facility] [place] [address] [place] [address] * HCV Ab w/Reflex to HCV PCR, S (medicare) (10/17/2016 9:13 AM CDT) HXHCV Ab [facility] Negative Negative POWERCHART Comment: Yjconn-uu-uyrllg ratio is <1.00. Test Performed by: [address] [address] Blood 10/17/2016 9:13 AM CDT Franco Molina M.D. LAB MICROBIOLOGY - B LOOD ORDERABLES POWERCHART from Last 3 Months or Most Recently Relevant to Health Maintenance Care Teams Probe Operator Relationship Specialty Start Date End Date Elsewhere, Pcp PCP - General Internal Medicine 09/20/21
== END 2023-10-05 09:11 | disposition home or self-care (01) ==
PROVIDERS: PCP Family Medicine; Visit Provider Family Medicine
DX: E11.9 Type 2 diabetes mellitus without complications (principal); E78.2 Mixed hyperlipidemia; I10 Essential (primary) hypertension; Z79.4 Long term (current) use of insulin; Z12.5 Encounter for screening for malignant neoplasm of prostate
CPT/HCPCS: 80048; 80061; 84460; G0103

== ENCOUNTER 2024-10-11 11:32 | Outpatient (CLI) | payer MEDICARE, OTHER, SELFPAY ==
[2024-10-11 13:29] LABS: Chloride* 98 mmol/L (96-114)
[2024-10-11 13:30] LABS: Potassium* 4.9 mmol/L (3.6-5.1); Sodium* 133 mmol/L (135-149)
[2024-10-11 13:33] LABS: Alanine Aminotransferase* 15 U/L (4-50); Anion Gap 9 mEq/L (7-15); Blood Urea Nitrogen* 12 mg/dL (7-30); Calcium* 10.0 mg/dL (8.4-10.6); Carbon Dioxide* 26 mmol/L (20-32); Creatinine* 1.1 mg/dL (0.5-1.5); Estimated Glomerular Filt Rate 71 ml/min; Glucose* 89 mg/dL (60-115)
[2024-10-11 14:02] LABS: PSA Screen* 1.61 ng/mL (0.10-4.00)
== END 2024-10-11 11:33 | disposition home or self-care (01) ==
PROVIDERS: PCP Family Medicine; Visit Provider Family Medicine
DX: E78.2 Mixed hyperlipidemia (principal); I10 Essential (primary) hypertension; N40.0 Benign prostatic hyperplasia without lower urinary tract symptoms; Z12.5 Encounter for screening for malignant neoplasm of prostate
CPT/HCPCS: 80048; 84460; G0103